=== PATIENT | female | born 1980 | race Caucasian/White ===

== ENCOUNTER 2022-12-19 14:22 | Emergency (ER) | payer MEDICAID ==
[~2022-12-19] VITALS: Ht 162.6 cm; Wt 94.8 kg
--- OUTSIDE RECORDS SUMMARY | ~2022-12-19 | XMS | Continuity of Care Document ---
Demographics + + + | Address | [facility] | | | [place] [address] | + + + | Preferred Language | Unknown | + + + | Marital Status | Never | + + + | Jehovah'S Witness Affiliation | Unknown | + + + | Race | White | + + + | Ethnic Group | Not or | + + + Author + + + | Author | [facility] | + + + | Organization | [facility] | + + + | Address | [address] [facility] | | | [place] [address] | + + + | Phone | | + + + Care Team Providers + + + + | Care Floor Scrubber Name | Role | Phone | + + + + Unavailable | Unavailable | + + + + Unavailable | Unavailable | + + + + Unavailable | Unavailable | + + + + Unavailable | Unavailable | + + + + Unavailable | Unavailable | + + + + Unavailable | Unavailable | + + + + Unavailable | Unavailable | + + + + Unavailable | Unavailable | + + + + Unavailable | Unavailable | + + + + Unavailable | Unavailable | + + + + Unavailable | Unavailable | + + + + Unavailable | Unavailable | + + + + Unavailable | Unavailable | + + + + Unavailable | Unavailable | + + + + Unavailable | Unavailable | + + + + Unavailable | Unavailable | + + + + Unavailable | Unavailable | + + + + Unavailable | Unavailable | + + + + Unavailable | Unavailable | + + + + Unavailable | Unavailable | + + + + Unavailable | Unavailable | + + + + Unavailable | Unavailable | + + + + Unavailable | Unavailable | + + + + Unavailable | Unavailable | + + + + Unavailable | Unavailable | + + + + Unavailable | Unavailable | + + + + Unavailable | Unavailable | + + + + Unavailable | Unavailable | + + + + Unavailable | Unavailable | + + + + Unavailable | Unavailable | + + + + Unavailable | Unavailable | + + + + Unavailable | Unavailable | + + + + Unavailable | Unavailable | + + + + Unavailable | Unavailable | + + + + Unavailable | Unavailable | + + + + Unavailable | Unavailable | + + + + Unavailable | Unavailable | + + + + Unavailable | Unavailable | + + + + Unavailable | Unavailable | + + + + Unavailable | Unavailable | + + + + Unavailable | Unavailable | + + + + Unavailable | Unavailable | + + + + Unavailable | Unavailable | + + + + Unavailable | Unavailable | + + + + Unavailable | Unavailable | + + + + Unavailable | Unavailable | + + + + Allergies and Intolerances + + + + + + | date | description | facility | reaction | severity | + + + + + + | (no date) | NO KNOWN [facility] | (no reaction) | (no severity) | | | ALLERGIES | [facility] | | | | | [place] | | | + + + + + + | (no date) | NO KNOWN | [facility] | (no reaction) | (no severity) | | | ALLERGIES | [facility] - | | | | | | [place] | | | + + + + + + | (no date) | NO KNOWN | [facility] | (no reaction) | (no severity) | | | ALLERGIES | [facility] - | | | | | | [place] | | | + + + + + + | (no date) | NO KNOWN | [facility] | (no reaction) | (no severity) | | | ALLERGIES | [facility] - | | | | | | [place] | | | + + + + + + Encounters No information. Functional Status No information. Immunizations No information. Medications + + + + | date | description | facility | + + + + | 2022-06-19 00:00 | ondansetron 4 mg oral | [facility] | | | tablet [zofran] | [facility] | | | | Clinic | + + + + | 2022-05-30 00:00 | atropine sulfate 1 % | [facility] | | | ophthalmic solution | [facility] | | | | Clinic | + + + + | 2022-05-30 00:00 | atropine sulfate 1 % | [facility] | | | ophthalmic solution | [facility] | | | | Clinic | + + + + | 2022-05-30 00:00 | atropine sulfate 1 % | [facility] | | | ophthalmic solution | [facility] | + + + + | 2022-05-30 00:00 | atropine sulfate 1 % | [facility] | | | ophthalmic solution | | + + + + | 2022-05-30 00:00 | atropine sulfate 1 % | [facility] | | | ophthalmic solution | Dental | + + + + | 2022-07-26 00:00 | atropine sulfate 1 % | [facility] | | | ophthalmic solution | 1 | + + + + | 2022-07-26 00:00 | atropine sulfate 1 % | [facility] | | | ophthalmic solution | [facility] | | | | Clinic | + + + + | 2022-07-26 00:00 | atropine sulfate 1 % | [facility] | | | ophthalmic solution | [facility] | | | | Clinic | + + + + | 2022-07-26 00:00 | atropine sulfate 1 % | [facility] | | | ophthalmic solution | [facility] | + + + + | 2022-07-26 00:00 | atropine sulfate 1 % | [facility] | | | ophthalmic solution | | + + + + | 2022-07-26 00:00 | atropine sulfate 1 % | [facility] | | | ophthalmic solution | [facility] | | | | Clinic | + + + + | 2022-07-26 00:00 | atropine sulfate 1 % | [facility] | | | ophthalmic solution | [facility] | | | | County | + + + + | 2022-07-26 00:00 | atropine sulfate 1 % | [facility] | | | ophthalmic solution | [facility] [address] | | | | Clinic | + + + + | 2022-07-26 00:00 | atropine sulfate 1 % | [facility] | | | ophthalmic solution | [facility] | + + + + | 2022-07-26 00:00 | atropine sulfate 1 % | [facility] | | | ophthalmic solution | | + + + + | 2022-11-26 00:00 | abilify maintena 400 mg | [facility] | | | extended release prefilled | [facility] | | | syringe | Clinic | + + + + | 2022-11-26 00:00 | abilify maintena 400 mg | [facility] | | | extended release prefilled | [facility] | | | syringe | Clinic | + + + + | 2022-08-16 00:00 | abilifmatthew maintena 400 mg | [facility] | | | injection | 1 | + + + + | 2022-08-16 00:00 | abilify maintena 400 mg | [facility] | | | injection | [facility] | | | | Clinic | + + + + | 2022-08-16 00:00 | abilify maintena 400 mg | [facility] | | | injection | [facility] | | | | Clinic | + + + + | 2022-08-16 00:00 | abilify maintena 400 mg | [facility] | | | injection | [facility] | + + + + | 2022-08-16 00:00 | abilifmatthew maintena 400 mg | [facility] | | | injection | | + + + + | 2022-08-16 00:00 | abizackfmatthew maintena 400 mg | [facility] | | | injection | [facility] | | | | Clinic | + + + + | 2022-08-16 00:00 | abilifmatthew maintena 400 mg | [facility] | | | injection | [facility] | | | | Clinic | + + + + | 2022-06-26 00:00 | clozapine 100 mg oral | [facility] | | | tablet | [facility] | | | | Clinic | + + + + | 2022-06-26 00:00 | clozapine 100 mg oral | [facility] | | | tablet | [facility] | | | | Clinic | + + + + | 2022-06-26 00:00 | clozapine 100 mg oral | [facility] | | | tablet | [facility] | + + + + | 2022-06-26 00:00 | clozapine 100 mg oral | [facility] | | | tablet | | + + + + | 2022-07-26 00:00 | clozapine 100 mg oral | [facility] | | | tablet | [facility] | | | | Clinic | + + + + | 2022-07-26 00:00 | clozapine 100 mg oral | [facility] | | | tablet | [facility] | + + + + | 2022-07-26 00:00 | clozapine 100 mg oral | [facility] | | | tablet | | + + + + | 2022-07-26 00:00 | clozapine 100 mg oral | [facility] | | | tablet | [facility] | | | | Clinic | + + + + | 2022-07-26 00:00 | clozapine 100 mg oral | [facility] | | | tablet | [facility] | | | | [facility] | + + + + | 2022-07-26 00:00 | [facility]apine 100 mg oral | [facility] | | | tablet | [facility] | + + + + | 2022-06-12 00:00 | clozapine 25 mg oral | [facility] | | | tablet | [facility] | | | | Clinic | + + + + | 2022-06-12 00:00 | clozapine 25 mg oral | [facility] | | | tablet | [facility] | + + + + | 2022-06-12 00:00 | clozapine 25 mg oral | [facility] | | | tablet | Dental | + + + + | 2022-06-19 00:00 | clozapine 25 mg oral | [facility] | | | tablet | [facility] | | | | Clinic | + + + + | 2022-06-19 00:00 | clozapine 25 mg oral | [facility] | | | tablet | [facility] | | | | Clinic | + + + + | 2022-11-25 00:00 | clozapine 25 mg oral | [facility] | | | tablet | [facility] | | | | Clinic | + + + + | 2022-11-25 00:00 | clozapine 25 mg oral | [facility] | | | tablet | [facility] | | | | Clinic | + + + + | 2022-11-25 00:00 | clozapine 25 mg oral | [facility] | | | tablet | [facility] | | | | Clinic | + + + + | 2022-10-10 00:00 | nicotine 7 mg per 24hr 1 | [facility] | | | day transdermal patch | [facility] | | | | Clinic | + + + + | 2022-10-10 00:00 | nicotine 7 mg per 24hr 1 | [facility] | | | day transdermal patch | [facility] [address] | | | | Clinic | + + + + | 2022-10-10 00:00 | nicotine 7 mg per 24hr 1 | [facility] | | | day transdermal patch | [facility] | + + + + | 2022-10-10 00:00 | nicotine 7 mg per 24hr 1 | [facility] | | | day transdermal patch | | + + + + | 2022-10-10 00:00 | nicotine 7 mg per 24hr 1 | [facility] | | | day transdermal patch | [facility] | | | | Clinic | + + + + | 2022-10-10 00:00 | nicotine 7 mg per 24hr 1 | [facility] | | | day transdermal patch | [facility] | | | | Clinic | + + + + | 2022-10-10 00:00 | nicotine 7 mg per 24hr 1 | [facility] | | | day transdermal patch | | + + + + | 2022-06-19 00:00 | ondansetron 4 mg oral | [facility] | | | tablet | [facility] | | | | Clinic | + + + + | 2020-07-03 00:00 | olanzapine 2.5 mg oral | [facility] | | | tablet | [facility] | + + + + | 2022-08-08 00:00 | famotidine 40 mg oral | [facility] | | | tablet | 1 | + + + + | 2022-08-08 00:00 | famotidine 40 mg oral | [facility] | | | tablet | [facility] | | | | Clinic | + + + + | 2022-08-08 00:00 | famotidine 40 mg oral | [facility] | | | tablet | [facility] | + + + + | 2022-08-08 00:00 | famotidine 40 mg oral | [facility] | | | tablet | | + + + + | 2022-11-04 00:00 | famotidine 40 mg oral | [facility] | | | tablet | [facility] | | | | Clinic | + + + + | 2022-11-04 00:00 | famotidine 40 mg oral | [facility] | | | tablet | [facility] | | | | Clinic | + + + + | 2022-11-04 00:00 | famotidine 40 mg oral | [facility] | | | tablet | [facility] | + + + + | 2022-11-04 00:00 | famotidine 40 mg oral | [facility] | | | tablet | | + + + + | 2022-11-04 00:00 | famotidine 40 mg oral | [facility] | | | tablet | [facility] | | | | Clinic | + + + + | 2022-11-04 00:00 | famotidine 40 mg oral | [facility] | | | tablet | [facility] | | | | Clinic | + + + + | 2022-11-04 00:00 | famotidine 40 mg oral | [facility] | | | tablet | | + + + + | 2021-10-17 00:00 | quetiapine 25 mg oral | [facility] | | | tablet | [facility] | + + + + | 2022-05-30 00:00 | sennosides, group home 8.6 mg | [facility] | | | oral tablet | [facility] | | | | Clinic | + + + + | 2021-10-18 00:00 | 24 hr venlafaxine 150 mg | [facility] | | | extended release oral | [facility] | | | capsule | | + + + + | 2021-11-13 00:00 | 24 hr venlafaxine 150 mg | [facility] | | | extended release oral | [facility] | | | capsule | | + + + + | 2022-10-23 00:00 | 24 hr venlafaxine 150 mg | [facility] | | | extended release oral | [facility] | | | capsule | Clinic | + + + + | 2022-10-23 00:00 | 24 hr venlafaxine 150 mg | [facility] | | | extended release oral | [facility] | | | capsule | Clinic | + + + + | 2022-10-23 00:00 | 24 hr venlafaxine 150 mg | [facility] | | | extended release oral | [facility] | | | capsule | | + + + + | 2022-10-23 00:00 | 24 hr venlafaxine 150 mg | [facility] | | | extended release oral | | | | capsule | | + + + + | 2022-10-23 00:00 | 24 hr venlafaxine 150 mg | [facility] | | | extended release oral | [facility] | | | capsule | Clinic | + + + + | 2022-10-23 00:00 | 24 hr venlafaxine 150 mg | [facility] | | | extended release oral | [facility] | | | capsule | Clinic | + + + + | 2022-10-23 00:00 | 24 hr venlafaxine 150 mg | [facility] | | | extended release oral | | | | capsule | | + + + + | 2020-07-03 00:00 | 24 hr venlafaxine 75 mg | [facility] | | | extended release oral | [facility] | | | capsule | | + + + + | 2022-10-03 00:00 | 24 hr venlafaxine 75 mg | [facility] | | | extended release oral | [facility] | | | capsule | Clinic | + + + + | 2022-10-03 00:00 | 24 hr venlafaxine 75 mg | [facility] | | | extended release oral | [facility] | | | capsule | | + + + + | 2022-10-03 00:00 | 24 hr venlafaxine 75 mg | [facility] | | | extended release oral | | | | capsule | | + + + + | 2022-10-22 00:00 | 24 hr venlafaxine 75 mg | [facility] | | | extended release oral | [facility] | | | capsule | Clinic | + + + + | 2020-07-03 00:00 | olanzapine 10 mg oral | [facility] | | | tablet | [place] | + + + + | 2021-11-13 00:00 | aripiprazole 15 mg oral | [facility] | | | tablet | [facility] | + + + + | 2015-06-16 00:00 | Drug or medicament | [facility] | | | (substance) | [facility] | + + + + | 2022-02-06 00:00 | clozapine 50 mg oral | [facility] | | | tablet | [facility] | | | | Clinic | + + + + | 2022-02-06 00:00 | clozapine 50 mg oral | [facility] | | | tablet | Dental | + + + + | 2022-02-06 00:00 | clozapine 50 mg oral | [facility] | | | tablet | [facility] | | | | Clinic | + + + + | 2022-02-06 00:00 | cl[facility] 50 mg oral | [facility] | | | tablet | [facility] | | | | Clinic | + + + + | 2022-02-06 00:00 | clozapine 50 mg oral | [facility] | | | tablet | [facility] | + + + + | 2022-06-04 00:00 | clozapine 50 mg oral | [facility] | | | tablet | [facility] | | | | Clinic | + + + + | 2022-09-10 00:00 | clozapine 50 mg oral | [facility] | | | tablet | 1 | + + + + | 2022-09-10 00:00 | clozapine 50 mg oral | [facility] | | | tablet | [facility] | | | | Clinic | + + + + | 2022-09-10 00:00 | clozapine 50 mg oral | [facility] | | | tablet | | + + + + | 2022-10-03 00:00 | clozapine 50 mg oral | [facility] | | | tablet | [facility] | | | | Clinic | + + + + | 2022-10-03 00:00 | clozapine 50 mg oral | [facility] | | | tablet | [facility] | | | | Clinic | + + + + | 2022-10-03 00:00 | clozapine 50 mg oral | [facility] | | | tablet | [facility] | + + + + | 2022-10-03 00:00 | clozapine 50 mg oral | [facility] | | | tablet | | + + + + | 2022-10-03 00:00 | clozapine 50 mg oral | [facility] | | | tablet | [facility] | | | | Clinic | + + + + | 2022-10-03 00:00 | clozapine 50 mg oral | [facility] | | | tablet | [facility] | | | | Clinic | + + + + | 2022-10-03 00:00 | clozapine 50 mg oral | [facility] | | | tablet | | + + + + | 2022-10-03 00:00 | effexor xr 75 mg 24hr | [facility] | | | extended release oral | [facility] | | | capsule | Clinic | + + + + | 2022-10-03 00:00 | effexor xr 75 mg 24hr | [facility] | | | extended release oral | [facility] | | | capsule | | + + + + | 2022-10-03 00:00 | effexor xr 75 mg 24hr | [facility] | | | extended release oral | | | | capsule | | + + + + | 2022-10-22 00:00 | effexor xr 75 mg 24hr | [facility] | | | extended release oral | [facility] | | | capsule | Clinic | + + + + | 2021-11-13 00:00 | effexor xr 150 mg 24 hr | [facility] | | | extended release oral | [facility] | | | capsule | | + + + + | 2022-05-30 00:00 | senna-time 8.6 mg oral | [facility] | | | tablet | [facility] | | | | Clinic | + + + + | 2022-02-04 00:00 | venlafaxine hcl 150 mg | [facility] | | | 24hr extended release oral | [facility] | | | tablet | Clinic | + + + + | 2022-02-04 00:00 | venlafaxine hcl 150 mg | [facility] | | | 24hr extended release oral | [facility] | | | tablet | Clinic | + + + + | 2022-02-04 00:00 | venlafaxine hcl 150 mg | [facility] | | | 24hr extended release oral | [facility] | | | tablet | | + + + + | 2022-04-17 00:00 | venlafaxine hcl 150 mg | [facility] | | | 24hr extended release oral | [facility] | | | tablet | Clinic | + + + + | 2022-04-17 00:00 | venlafaxine hcl 150 mg | [facility] | | | 24hr extended release oral | Dental | | | tablet | | + + + + | 2022-04-17 00:00 | venlafaxine hcl 150 mg | [facility] | | | 24hr extended release oral | [facility] | | | tablet | Clinic | + + + + | 2022-04-17 00:00 | venlafaxine hcl 150 mg | [facility] | | | 24hr extended release oral | [facility] | | | tablet | Clinic | + + + + | 2022-04-17 00:00 | venlafaxine hcl 150 mg | [facility] | | | 24hr extended release oral | [facility] | | | tablet | | + + + + | 2022-06-04 00:00 | venlafaxine hcl 150 mg | [facility] | | | 24hr extended release oral | [facility] | | | tablet | Clinic | + + + + | 2022-06-04 00:00 | venlafaxine hcl 150 mg | [facility] | | | 24hr extended release oral | [facility] | | | tablet | | + + + + | 2022-06-04 00:00 | venlafaxine hcl 150 mg | [facility] | | | 24hr extended release oral | | | | tablet | | + + + + | 2022-06-04 00:00 | venlafaxine hcl 150 mg | [facility] | | | 24hr extended release oral | Dental | | | tablet | | + + + + | 2022-06-19 00:00 | venlafaxine hcl 150 mg | [facility] | | | 24hr extended release oral | [facility] | | | tablet | Clinic | + + + + | 2022-06-19 00:00 | venlafaxine hcl 150 mg | [facility] | | | 24hr extended release oral | [facility] | | | tablet | Clinic | + + + + | 2022-06-19 00:00 | venlafaxine hcl 150 mg | [facility] | | | 24hr extended release oral | [facility] | | | tablet | | + + + + | 2022-06-19 00:00 | venlafaxine hcl 150 mg | [facility] | | | 24hr extended release oral | | | | tablet | | + + + + | 2022-07-26 00:00 | venlafaxine hcl 150 mg | [facility] | | | 24hr extended release oral | [facility] | | | tablet | Clinic | + + + + | 2022-07-26 00:00 | venlafaxine hcl 150 mg | [facility] | | | 24hr extended release oral | [facility] | | | tablet | | + + + + | 2022-07-26 00:00 | venlafaxine hcl 150 mg | [facility] | | | 24hr extended release oral | | | | tablet | | + + + + | 2022-07-26 00:00 | venlafaxine hcl 150 mg | [facility] | | | 24hr extended release oral | [facility] | | | tablet | Clinic | + + + + | 2022-07-26 00:00 | venlafaxine hcl 150 mg | [facility] | | | 24hr extended release oral | [facility] | | | tablet | [facility] | + + + + | 2022-07-26 00:00 | venlafaxine hcl 150 mg | [facility] | | | 24hr extended release oral | [facility] | | | tablet | | + + + + | 2020-03-31 00:00 | trazodone hydrochloride 50 | [facility] | | | mg oral tablet | [facility] | + + + + | 2022-10-10 00:00 | trazodone hydrochloride 50 | [facility] | | | mg oral tablet | [facility] | | | | Clinic | + + + + | 2022-10-10 00:00 | trazodone hydrochloride 50 | [facility] | | | mg oral tablet | [facility] | + + + + | 2022-10-10 00:00 | trazodone hydrochloride 50 | [facility] | | | mg oral tablet | | + + + + | 2022-11-19 00:00 | trazodone hydrochloride 50 | [facility] | | | mg oral tablet | [facility] | | | | Clinic | + + + + | 2022-11-19 00:00 | [facility]one hydrochloride 50 | [facility] | | | mg oral tablet | [facility] [address] | | | | Clinic | + + + + | 2022-11-19 00:00 | trazodone hydrochloride 50 | [facility] [facility] | | mg oral tablet | [facility] | | | | Clinic | + + + + | 2022-11-19 00:00 | trazodone hydrochloride 50 | [facility] | | | mg oral tablet | [facility] | | | | Clinic | + + + + | 2022-08-16 00:00 | propranolol hcl 10 mg oral | [facility] | | | tablet | [facility] | | | | Clinic | + + + + | 2022-08-16 00:00 | propranolol hcl 10 mg oral | [facility] | | | tablet | [facility] | + + + + | 2022-08-16 00:00 | propranolol hcl 10 mg oral | [facility] | | | tablet | | + + + + | 2022-05-30 00:00 | polyethylene glycol 3350 | [facility] | | | 17 gm powder for oral | 1 | | | solution | | + + + + | 2022-05-30 00:00 | polyethylene glycol 3350 | [facility] | | | 17 gm powder for oral | [facility] | | | solution | Clinic | + + + + | 2022-05-30 00:00 | polyethylene glycol 3350 | [facility] | | | 17 gm powder for oral | [facility] [address] | | | solution | Clinic | + + + + | 2022-05-30 00:00 | polyethylene glycol 3350 | [facility] | | | 17 gm powder for oral | [facility] | | | solution | | + + + + | 2022-05-30 00:00 | polyethylene glycol 3350 | [facility] | | | 17 gm powder for oral | | | | solution | | + + + + | 2022-05-30 00:00 | polyethylene glycol 3350 | [facility] | | | 17 gm powder for oral | Dental | | | solution | | + + + + | 2022-05-30 00:00 | polyethylene glycol 3350 | [facility] | | | 17 gm powder for oral | [facility] | | | solution | Clinic | + + + + | 2022-05-30 00:00 | polyethylene glycol 3350 | [facility] | | | 17 gm powder for oral | [facility] [place] | | | solution | [facility] | + + + + | 2022-05-30 00:00 | polyethylene glycol 3350 | [facility] | | | 17 gm powder for oral | [facility] | | | solution | Clinic | + + + + | 2022-05-30 00:00 | polyethylene glycol 3350 | [facility] | | | 17 gm powder for oral | [facility] | | | solution | | + + + + | 2022-05-30 00:00 | polyethylene glycol 3350 | [facility] | | | 17 gm powder for oral | | | | solution | | + + + + | 2021-11-13 00:00 | benztropine mesylate 0.5 | [facility] | | | mg oral tablet | [facility] | + + + + | 2022-10-03 00:00 | fluvoxamine maleate 25 mg | [facility] | | | oral tablet | [facility] | | | | Clinic | + + + + | 2022-10-03 00:00 | fluvoxamine maleate 25 mg | [facility] | | | oral tablet | [facility] | + + + + | 2022-10-03 00:00 | fluvoxamine maleate 25 mg | [facility] | | | oral tablet | [facility] | + + + + | 2022-10-03 00:00 | fluvoxamine maleate 25 mg | [facility] | | | oral tablet | | + + + + | 2022-10-03 00:00 | fluvoxamine maleate 25 mg | [facility] | | | oral tablet | [facility] | | | | Clinic | + + + + | 2022-10-03 00:00 | fluvoxamine maleate 25 mg | [facility] | | | oral tablet | [facility] | | | | Clinic | + + + + | 2022-10-03 00:00 | fluvoxamine maleate 25 mg | [facility] | | | oral tablet | | + + + + | 2022-09-10 00:00 | fluvoxamine maleate 50 mg | [facility] | | | oral tablet | 1 | + + + + | 2022-09-10 00:00 | fluvoxamine maleate 50 mg | [facility] | | | oral tablet | [facility] | | | | Clinic | + + + + | 2022-09-10 00:00 | fluvoxamine maleate 50 mg | [facility] | | | oral tablet | | + + + + | 2022-10-08 00:00 | levothyroxine sodium 0.025 | [facility] | | | mg oral tablet | [facility] | | | | Clinic | + + + + | 2022-10-08 00:00 | levothyroxine sodium 0.025 | [facility] | | | mg oral tablet | [facility] | | | | Clinic | + + + + | 2022-10-08 00:00 | levothyroxine sodium 0.025 | [facility] | | | mg oral tablet | [facility] | + + + + | 2022-10-08 00:00 | levothyroxine sodium 0.025 | [facility] | | | mg oral tablet | | + + + + | 2022-10-08 00:00 | levothyroxine sodium 0.025 | [facility] | | | mg oral tablet | [facility] | | | | Clinic | + + + + | 2022-10-08 00:00 | levothyroxine sodium 0.025 | [facility] | | | mg oral tablet | [facility] | | | | Clinic | + + + + | 2022-10-08 00:00 | levothyroxine sodium 0.025 | [facility] | | | mg oral tablet | | + + + + | 2019-11-29 00:00 | bupropion hcl 100 mg 12 hr | [facility] | | | extended release oral | [facility] | | | tablet | | + + + + | 2022-06-04 00:00 | 24 hr bupropion | [facility] | | | hydrochloride 150 mg | [facility] | | | extended release oral | Clinic | | | tablet | | + + + + | 2022-06-04 00:00 | 24 hr bupropion | [facility] | | | hydrochloride 150 mg | [facility] | | | extended release oral | | | | tablet | | + + + + | 2022-06-04 00:00 | 24 hr bupropion | [facility] | | | hydrochloride 150 mg | | | | extended release oral | | | | tablet | | + + + + | 2022-06-04 00:00 | 24 hr bupropion | [facility] | | | hydrochloride 150 mg | Dental | | | extended release oral | | | | tablet | | + + + + | 2022-06-19 00:00 | 24 hr bupropion | [facility] | | | hydrochloride 150 mg | [facility] | | | extended release oral | Clinic | | | tablet | | + + + + | 2022-06-19 00:00 | 24 hr bupropion | [facility] | | | hydrochloride 150 mg | [facility] | | | extended release oral | Clinic | | | tablet | | + + + + | 2022-09-10 00:00 | 24 hr bupropion | [facility] | | | hydrochloride 150 mg | 1 | | | extended release oral | | | | tablet | | + + + + | 2022-09-10 00:00 | 24 hr bupropion | [facility] | | | hydrochloride 150 mg | [facility] | | | extended release oral | Clinic | | | tablet | | + + + + | 2022-09-10 00:00 | 24 hr bupropion | [facility] | | | hydrochloride 150 mg | | | | extended release oral | | | | tablet | | + + + + | 2022-07-02 00:00 | 24 hr bupropion | [facility] | | | hydrochloride 300 mg | [facility] | | | extended release oral | Clinic | | | tablet | | + + + + | 2022-07-02 00:00 | 24 hr bupropion | [facility] | | | hydrochloride 300 mg | [facility] | | | extended release oral | | | | tablet | | + + + + | 2022-07-02 00:00 | 24 hr bupropion | [facility] | | | hydrochloride 300 mg | | | | extended release oral | | | | tablet | | + + + + | 2022-07-26 00:00 | 24 hr bupropion | [facility] | | | hydrochloride 300 mg | [facility] | | | extended release oral | Clinic | | | tablet | | + + + + | 2022-07-26 00:00 | 24 hr bupropion | [facility] | | | hydrochloride 300 mg | [facility] | | | extended release oral | | | | tablet | | + + + + | 2022-07-26 00:00 | 24 hr bupropion | [facility] | | | hydrochloride 300 mg | | | | extended release oral | | | | tablet | | + + + + | 2022-07-26 00:00 | 24 hr bupropion | [facility] | | | hydrochloride 300 mg | [facility] | | | extended release oral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 + + + | 2022-03-25 08:31:45 | Other specified depressive | [facility] | | | episodes | | + + + + | 2022-03-25 08:31:45 | Tobacco use | [facility] | + + + + | 2022-03-26 15:00:57 | 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, uncomplicated | | + + + + | 2022-03-26 15:00:57 | Other psychotic disorder | [facility] | | | not due to a substance or | | | | known physiological | | | | condition | | + + + + | 2022-03-26 15:00:57 | Other specified depressive | [facility] | | | episodes | | + + + + | 2022-03-26 15:00:57 | Tobacco use | [facility] | + + + + | 2022-03-28 16:16:52 | 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, uncomplicated | | + + + + | 2022-03-28 16:16:52 | Other psychotic disorder | [facility] | | | not due to a substance or | | | | known physiological | | | | condition | | + + + + | 2022-03-28 16:16:52 | Other specified depressive | [facility] | | | episodes | | + + + + | 2022-03-28 16:16:52 | Tobacco use | [facility] | + + + + | 2022-04-03 14:01:55 | 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, uncomplicated | | + + + + | 2022-04-03 14:01:55 | Other psychotic disorder | [facility] | | | not due to a substance or | | | | known physiological | | | | condition | | + + + + | 2022-04-03 14:01:55 | Other specified depressive | [facility] | | | episodes | | + + + + | 2022-04-03 14:01:55 | Tobacco use | [facility] | + + + + | 2022-04-04 13:19:15 | 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, uncomplicated | | + + + + | 2022-04-04 13:19:15 | Other psychotic disorder | [facility] | | | not due to a substance or | | | | known physiological | | | | condition | | + + + + | 2022-04-04 13:19:15 | Other specified depressive | [facility] | | | episodes | | + + + + | 2022-04-04 13:19:15 | Tobacco use | [facility] | + + + + | 2022-04-11 08:53:33 | Care Coordination | [facility] | + + + + | 2022-04-16 11:22:28 | 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, uncomplicated | | + + + + | 2022-04-16 11:22:28 | Other psychotic disorder | [facility] | | | not due to a substance or | | | | known physiological | | | | condition | | + + + + | 2022-04-16 11:22:28 | Other specified depressive | [facility] | | | episodes | | + + + + | 2022-04-16 11:22:28 | Tobacco use | [facility] | + + + + | 2022-04-16 16:09:34 | 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, uncomplicated | | + + + + | 2022-04-16 16:09:34 | Other psychotic disorder | [facility] | | | not due to a substance or | | | | known physiological | | | | condition | | + + + + | 2022-04-16 16:09:34 | Other specified depressive | [facility] | | | episodes | | + + + + | 2022-04-16 16:09:34 | Tobacco use | [facility] | + + + + | 2022-04-25 12:18 | Delusional | [facility] - | | | | [place] | + + + + | 2022-04-25 12:38:23 | 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, uncomplicated | | + + + + | 2022-04-25 12:38:23 | Other psychotic disorder | [facility] | | | not due to a substance or | | | | known physiological | | | | condition | | + + + + | 2022-04-25 12:38:23 | Other specified depressive | [facility] | | | episodes | | + + + + | 2022-04-25 12:38:23 | Tobacco use | [facility] | + + + + | 2022-04-25 14:51 | Delusional | [facility] - | | | | [place] | + + + + | 2022-04-25 14:51 | Schizophrenia, schizotypal, | [facility]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, 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 | | | | disorders ([id number]) | | + + + + | 2022-04-25 14:51 | Nausea with vomiting, | [facility] - | | | unspecified | [place] | + + + + | 2022-04-25 14:51 | Diarrhea, unspecified | [facility] - | | | | [place] | + + + + | 2022-04-25 16:19:55 | 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, uncomplicated | | + + + + | 2022-04-25 16:19:55 | Other psychotic disorder | [facility] | | | not due to a substance or | | | | known physiological | | | | condition | | + + + + | 2022-04-25 16:19:55 | Other specified depressive | [facility] | | | episodes | | + + + + | 2022-04-25 16:19:55 | Tobacco use | [facility] | + + + + | 2022-04-26 07:58:37 | Care Coordination | [facility] | + + + + | 2022-04-30 11:25 | Abdominal Pain | [facility] - | | | | [place] | + + + + | 2022-04-30 11:25 | Hallucinations | [facility] - | | | | [place] | + + + + | 2022-04-30 12:02 | Abdominal Pain | [facility] - | | | | [place] | + + + + | 2022-04-30 12:02 | Hallucinations | [facility] - | | | | [place] | + + + + | 2022-04-30 12:02 | Hallucinations, | [facility] - | | | unspecified | [place] | + + + + | 2022-04-30 14:01:20 | 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, uncomplicated | | + + + + | 2022-04-30 14:01:20 | Other psychotic disorder | [facility] | | | not due to a substance or | | | | known physiological | | | | condition | | + + + + | 2022-04-30 14:01:20 | Other specified depressive | [facility] | | | episodes | | + + + + | 2022-04-30 14:01:20 | Tobacco use | [facility] | + + + + | 2022-05-01 10:23:24 | 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, uncomplicated | | + + + + | 2022-05-01 10:23:24 | Other psychotic disorder | [facility] | | | not due to a substance or | | | | known physiological | | | | condition | | + + + + | 2022-05-01 10:23:24 | Other specified depressive | [facility] | | | episodes | | + + + + | 2022-05-01 10:23:24 | Tobacco use | [facility] | + + + + | 2022-05-06 16:12:20 | 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, uncomplicated | | + + + + | 2022-05-06 16:12:20 | Other psychotic disorder | [facility] | | | not due to a substance or | | | | known physiological | | | | condition | | + + + + | 2022-05-06 16:12:20 | Other specified depressive | [facility] | | | episodes | | + + + + | 2022-05-06 16:12:20 | Tobacco use | [facility] | + + + + | 2022-05-10 10:21:29 | 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, uncomplicated | | + + + + | 2022-05-10 10:21:29 | Other psychotic disorder | [facility] | | | not due to a substance or | | | | known physiological | | | | condition | | + + + + | 2022-05-10 10:21:29 | Other specified depressive | [facility] | | | episodes | | + + + + | 2022-05-10 10:21:29 | Tobacco use | [facility] | + + + + | 2022-05-14 08:23 | Mental Health Problem | [facility] - | | | | [place] | + + + + | 2022-05-14 08:42 | Mental Health Problem | [facility] - | | | | [place] | + + + + | 2022-05-14 08:42 | Other psychoactive | [facility] - | | | substance use, unspecified, | [place] | | | uncomplicated | | + + + + | 2022-05-14 08:42 | Delusional disorders | [facility] - | | | | [place] | + + + + | 2022-05-17 08:57:59 | Abdominal Cramping | [facility] - | | | | [place] | + + + + | 2022-05-17 08:57:59 | Mental Health Problem | [facility] - | | | | [place] | + + + + | 2022-05-17 09:58 | Abdominal Cramping | [facility] - | | | | [place] | + + + + | 2022-05-17 09:58 | Mental Health Problem | [facility] - | | | | [place] | + + + + | 2022-05-17 09:58 | Generalized abdominal pain | [facility] - | | | | [place] | + + + + | 2022-05-24 08:36:08 | 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, uncomplicated | | + + + + | 2022-05-24 08:36:08 | Other psychotic disorder | [facility] | | | not due to a substance or | | | | known physiological | | | | condition | | + + + + | 2022-05-24 08:36:08 | Other specified depressive | [facility] | | | episodes | | + + + + | 2022-05-24 08:36:08 | Tobacco use | [facility] | + + + + | 2022-05-31 11:49:25 | 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, uncomplicated | | + + + + | 2022-05-31 11:49:25 | Other psychotic disorder | [facility] | | | not due to a substance or | | | | known physiological | | | | condition | | + + + + | 2022-05-31 11:49:25 | Other specified depressive | [facility] | | | episodes | | + + + + | 2022-05-31 11:49:25 | Tobacco use | [facility] | + + + + | 2022-05-31 13:11:35 | Care Coordination | [facility] | + + + + | 2022-05-31 15:49:53 | 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, uncomplicated | | + + + + | 2022-05-31 15:49:53 | Other psychotic disorder | [facility] | | | not due to a substance or | | | | known physiological | | | | condition | | + + + + | 2022-05-31 15:49:53 | Other specified depressive | [facility] | | | episodes | | + + + + | 2022-05-31 15:49:53 | Tobacco use | [facility] | + + + + | 2022-06-03 16:02:19 | Care Coordination | [facility] | + + + + | 2022-06-04 10:03:31 | 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, uncomplicated | | + + + + | 2022-06-04 10:03:31 | Schizophrenia, unspecified | [facility] | | | | | + + + + | 2022-06-04 10:03:31 | Other psychotic disorder | [facility] | | | not due to a substance or | | | | known physiological | | | | condition | | + + + + | 2022-06-04 10:03:31 | Other specified depressive | [facility] | | | episodes | | + + + + | 2022-06-04 10:03:31 | Tobacco use | [facility] | + + + + | 2022-06-04 12:25:05 | 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, uncomplicated | | + + + + | 2022-06-04 12:25:05 | Other psychotic disorder | [facility] | | | not due to a substance or | | | | known physiological | | | | condition | | + + + + | 2022-06-04 12:25:05 | Other specified depressive | [facility] | | | episodes | | + + + + | 2022-06-04 12:25:05 | Tobacco use | [facility] | + + + + | 2022-06-04 16:51:31 | 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, uncomplicated | | + + + + | 2022-06-04 16:51:31 | Other psychotic disorder | [facility] | | | not due to a substance or | | | | known physiological | | | | condition | | + + + + | 2022-06-04 16:51:31 | Other specified depressive | [facility] | | | episodes | | + + + + | 2022-06-04 16:51:31 | Tobacco use | [facility] | + + + + | 2022-06-10 16:36:57 | 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, uncomplicated | | + + + + | 2022-06-10 16:36:57 | Other psychotic disorder | [facility] | | | not due to a substance or | | | | known physiological | | | | condition | | + + + + | 2022-06-10 16:36:57 | Other specified depressive | [facility] | | | episodes | | + + + + | 2022-06-10 16:36:57 | Tobacco use | [facility] | + + + + | 2022-06-11 09:08:06 | Care Coordination | [facility] | + + + + | 2022-06-11 11:44:04 | Care Coordination | [facility] | + + + + | 2022-06-12 09:11:57 | 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, uncomplicated | | + + + + | 2022-06-12 09:11:57 | Other psychotic disorder | [facility] | | | not due to a substance or | | | | known physiological | | | | condition | | + + + + | 2022-06-12 09:11:57 | Other specified depressive | [facility] | | | episodes | | + + + + | 2022-06-12 09:11:57 | Tobacco use | [facility] | + + + + | 2022-06-12 09:42:37 | Schizophrenia, unspecified | [facility] | | | | | + + + + | 2022-06-13 09:56:12 | 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, uncomplicated | | + + + + | 2022-06-13 09:56:12 | Other psychotic disorder | [facility] | | | not due to a substance or | | | | known physiological | | | | condition | | + + + + | 2022-06-13 09:56:12 | Other specified depressive | [facility] | | | episodes | | + + + + | 2022-06-13 09:56:12 | Tobacco use | [facility] | + + + + | 2022-06-13 13:27:48 | Cancel/Reschedule | [facility] | | | Appointment | | + + + + | 2022-06-14 14:29:09 | 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, uncomplicated | | + + + + | 2022-06-14 14:29:09 | Other psychotic disorder | [facility] | | | not due to a substance or | | | | known physiological | | | | condition | | + + + + | 2022-06-14 14:29:09 | Other specified depressive | [facility] | | | episodes | | + + + + | 2022-06-14 14:29:09 | Tobacco use | [facility] | + + + + | 2022-06-17 08:29:29 | 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, uncomplicated | | + + + + | 2022-06-17 08:29:29 | Other psychotic disorder | [facility] | | | not due to a substance or | | | | known physiological | | | | condition | | + + + + | 2022-06-17 08:29:29 | Other specified depressive | [facility] | | | episodes | | + + + + | 2022-06-17 08:29:29 | Tobacco use | [facility] | + + + + | 2022-06-18 09:47:22 | 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, uncomplicated | | + + + + | 2022-06-18 09:47:22 | Other psychotic disorder | [facility] | | | not due to a substance or | | | | known physiological | | | | condition | | + + + + | 2022-06-18 09:47:22 | Other specified depressive | [facility] | | | episodes | | + + + + | 2022-06-18 09:47:22 | Tobacco use | [facility] | + + + + | 2022-06-18 15:12:22 | Care Coordination | [facility] | + + + + | 2022-06-19 15:02:58 | 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, uncomplicated | | + + + + | 2022-06-19 15:02:58 | Other psychotic disorder | [facility] | | | not due to a substance or | | | | known physiological | | | | condition | | + + + + | 2022-06-19 15:02:58 | Other specified depressive | [facility] | | | episodes | | + + + + | 2022-06-19 15:02:58 | Tobacco use | [facility] | + + + + | 2022-06-20 10:22:39 | 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, uncomplicated | | + + + + | 2022-06-20 10:22:39 | Other psychotic disorder | [facility] | | | not due to a substance or | | | | known physiological | | | | condition | | + + + + | 2022-06-20 10:22:39 | Other specified depressive | [facility] | | | episodes | | + + + + | 2022-06-20 10:22:39 | Tobacco use | [facility] | + + + + | 2022-06-20 10:27:21 | Care Coordination | [facility] | + + + + | 2022-06-21 08:35:18 | 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, uncomplicated | | + + + + | 2022-06-21 08:35:18 | Other psychotic disorder | [facility] | | | not due to a substance or | | | | known physiological | | | | condition | | + + + + | 2022-06-21 08:35:18 | Other specified depressive | [facility] | | | episodes | | + + + + | 2022-06-21 08:35:18 | Tobacco use | [facility] | + + + + | 2022-06-21 18:22:48 | 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, uncomplicated | | + + + + | 2022-06-21 18:22:48 | Other psychotic disorder | [facility] | | | not due to a substance or | | | | known physiological | | | | condition | | + + + + | 2022-06-21 18:22:48 | Other specified depressive | [facility] | | | episodes | | + + + + | 2022-06-21 18:22:48 | Tobacco use | [facility] | + + + + | 2022-06-24 17:12:17 | 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, uncomplicated | | + + + + | 2022-06-24 17:12:17 | Other psychotic disorder | [facility] | | | not due to a substance or | | | | known physiological | | | | condition | | + + + + | 2022-06-24 17:12:17 | Other specified depressive | [facility] | | | episodes | | + + + + | 2022-06-24 17:12:17 | Tobacco use | [facility] | + + + + | 2022-06-25 14:00:11 | 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, uncomplicated | | + + + + | 2022-06-25 14:00:11 | Other psychotic disorder | [facility] | | | not due to a substance or | | | | known physiological | | | | condition | | + + + + | 2022-06-25 14:00:11 | Other specified depressive | [facility] | | | episodes | | + + + + | 2022-06-25 14:00:11 | Tobacco use | [facility] | + + + + | 2022-06-27 16:56:12 | 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, uncomplicated | | + + + + | 2022-06-27 16:56:12 | Other psychotic disorder | [facility] | | | not due to a substance or | | | | known physiological | | | | condition | | + + + + | 2022-06-27 16:56:12 | Other specified depressive | [facility] | | | episodes | | + + + + | 2022-06-27 16:56:12 | Tobacco use | [facility] | + + + + | 2022-06-27 17:13:31 | 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, uncomplicated | | + + + + | 2022-06-27 17:13:31 | Other psychotic disorder | [facility] | | | not due to a substance or | | | | known physiological | | | | condition | | + + + + | 2022-06-27 17:13:31 | Other specified depressive | [facility] | | | episodes | | + + + + | 2022-06-27 17:13:31 | Tobacco use | [facility] | + + + + | 2022-06-27 17:14:24 | 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, uncomplicated | | + + + + | 2022-06-27 17:14:24 | Other psychotic disorder | [facility] | | | not due to a substance or | | | | known physiological | | | | condition | | + + + + | 2022-06-27 17:14:24 | Other specified depressive | [facility] | | | episodes | | + + + + | 2022-06-27 17:14:24 | Tobacco use | [facility] | + + + + | 2022-06-28 17:44:33 | 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, uncomplicated | | + + + + | 2022-06-28 17:44:33 | Other psychotic disorder | [facility] | | | not due to a substance or | | | | known physiological | | | | condition | | + + + + | 2022-06-28 17:44:33 | Other specified depressive | [facility] | | | episodes | | + + + + | 2022-06-28 17:44:33 | Tobacco use | [facility] | + + + + | 2022-06-28 17:45:14 | 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, uncomplicated | | + + + + | 2022-06-28 17:45:14 | Other psychotic disorder | [facility] | | | not due to a substance or | | | | known physiological | | | | condition | | + + + + | 2022-06-28 17:45:14 | Other specified depressive | [facility] | | | episodes | | + + + + | 2022-06-28 17:45:14 | Tobacco use | [facility] | + + + + | 2022-07-01 16:21:27 | 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, uncomplicated | | + + + + | 2022-07-01 16:21:27 | Other psychotic disorder | [facility] | | | not due to a substance or | | | | known physiological | | | | condition | | + + + + | 2022-07-01 16:21:27 | Other specified depressive | [facility] | | | episodes | | + + + + | 2022-07-01 16:21:27 | Tobacco use | [facility] | + + + + | 2022-07-01 16:21:33 | 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, uncomplicated | | + + + + | 2022-07-01 16:21:33 | Other psychotic disorder | [facility] | | | not due to a substance or | | | | known physiological | | | | condition | | + + + + | 2022-07-01 16:21:33 | Other specified depressive | [facility] | | | episodes | | + + + + | 2022-07-01 16:21:33 | Tobacco use | [facility] | + + + + | 2022-07-02 15:56:03 | Care Coordination | [facility] | + + + + | 2022-07-03 20:49:15 | 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, in remission | | + + + + | 2022-07-03 20:49:15 | Other psychotic disorder | [facility] | | | not due to a substance or | | | | known physiological | | | | condition | | + + + + | 2022-07-03 20:49:15 | Other specified depressive | [facility] | | | episodes | | + + + + | 2022-07-03 20:49:15 | Tobacco use | [facility] | + + + + | 2022-07-03 20:53:41 | 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, in remission | | + + + + | 2022-07-03 20:53:41 | Other psychotic disorder | [facility] | | | not due to a substance or | | | | known physiological | | | | condition | | + + + + | 2022-07-03 20:53:41 | Other specified depressive | [facility] | | | episodes | | + + + + | 2022-07-03 20:53:41 | Tobacco use | [facility] | + + + + | 2022-07-04 17:08:47 | 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, uncomplicated | | + + + + | 2022-07-04 17:08:47 | Other psychotic disorder | [facility] | | | not due to a substance or | | | | known physiological | | | | condition | | + + + + | 2022-07-04 17:08:47 | Other specified depressive | [facility] | | | episodes | | + + + + | 2022-07-04 17:08:47 | Tobacco use | [facility] | + + + + | 2022-07-05 16:38:10 | 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, uncomplicated | | + + + + | 2022-07-05 16:38:10 | Other psychotic disorder | [facility] | | | not due to a substance or | | | | known physiological | | | | condition | | + + + + | 2022-07-05 16:38:10 | Other specified depressive | [facility] | | | episodes | | + + + + | 2022-07-05 16:38:10 | Tobacco use | [facility] | + + + + | 2022-07-08 15:54:41 | 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, uncomplicated | | + + + + | 2022-07-08 15:54:41 | Other psychotic disorder | [facility] | | | not due to a substance or | | | | known physiological | | | | condition | | + + + + | 2022-07-08 15:54:41 | Other specified depressive | [facility] | | | episodes | | + + + + | 2022-07-08 15:54:41 | Tobacco use | [facility] | + + + + | 2022-07-08 15:57:12 | 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, uncomplicated | | + + + + | 2022-07-08 15:57:12 | Other psychotic disorder | [facility] | | | not due to a substance or | | | | known physiological | | | | condition | | + + + + | 2022-07-08 15:57:12 | Other specified depressive | [facility] | | | episodes | | + + + + | 2022-07-08 15:57:12 | Tobacco use | [facility] | + + + + | 2022-07-08 16:08:58 | 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, uncomplicated | | + + + + | 2022-07-08 16:08:58 | Other psychotic disorder | [facility] | | | not due to a substance or | | | | known physiological | | | | condition | | + + + + | 2022-07-08 16:08:58 | Other specified depressive | [facility] | | | episodes | | + + + + | 2022-07-08 16:08:58 | Tobacco use | [facility] | + + + + | 2022-07-10 16:45:21 | 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, uncomplicated | | + + + + | 2022-07-10 16:45:21 | Other psychotic disorder | [facility] | | | not due to a substance or | | | | known physiological | | | | condition | | + + + + | 2022-07-10 16:45:21 | Other specified depressive | [facility] | | | episodes | | + + + + | 2022-07-10 16:45:21 | Tobacco use | [facility] | + + + + | 2022-07-10 17:00:02 | 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, uncomplicated | | + + + + | 2022-07-10 17:00:02 | Other psychotic disorder | [facility] | | | not due to a substance or | | | | known physiological | | | | condition | | + + + + | 2022-07-10 17:00:02 | Other specified depressive | [facility] | | | episodes | | + + + + | 2022-07-10 17:00:02 | Tobacco use | [facility] | + + + + | 2022-07-16 18:25:18 | Vomiting | [facility] - | | | | [place] | + + + + | 2022-07-16 18:25:18 | Mental Health Problem | [facility] - | | | | [place] | + + + + | 2022-07-16 18:57 | Vomiting | [facility] - | | | | [place] | + + + + | 2022-07-16 18:57 | Mental Health Problem | [facility] - | | | | [place] | + + + + | 2022-07-16 18:57 | Imaging @ [place] @ | [facility] - | | | Ultrasonography @ | [place] | | | [place], Left | | + + + + | 2022-07-16 18:57 | Suicidal ideations | [facility] - | | | | [place] | + + + + | 2022-07-19 15:34:10 | Cancel/Reschedule | [facility] | | | Appointment | | + + + + | 2022-07-22 11:25:37 | 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, uncomplicated | | + + + + | 2022-07-22 11:25:37 | Other psychotic disorder | [facility] | | | not due to a substance or | | | | known physiological | | | | condition | | + + + + | 2022-07-22 11:25:37 | Other specified depressive | [facility] | | | episodes | | + + + + | 2022-07-22 11:25:37 | Tobacco use | [facility] | + + + + | 2022-07-22 17:46:51 | 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, uncomplicated | | + + + + | 2022-07-22 17:46:51 | Other psychotic disorder | [facility] | | | not due to a substance or | | | | known physiological | | | | condition | | + + + + | 2022-07-22 17:46:51 | Other specified depressive | [facility] | | | episodes | | + + + + | 2022-07-22 17:46:51 | Tobacco use | [facility] | + + + + | 2022-07-23 15:32:23 | 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, uncomplicated | | + + + + | 2022-07-23 15:32:23 | Other psychotic disorder | [facility] | | | not due to a substance or | | | | known physiological | | | | condition | | + + + + | 2022-07-23 15:32:23 | Other specified depressive | [facility] | | | episodes | | + + + + | 2022-07-23 15:32:23 | Tobacco use | [facility] | + + + + | 2022-07-24 09:36:11 | 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, uncomplicated | | + + + + | 2022-07-24 09:36:11 | Other psychotic disorder | [facility] | | | not due to a substance or | | | | known physiological | | | | condition | | + + + + | 2022-07-24 09:36:11 | Other specified depressive | [facility] | | | episodes | | + + + + | 2022-07-24 09:36:11 | Tobacco use | [facility] | + + + + | 2022-07-25 10:12:12 | Behavioral Health Staffing | [facility] | | | Note | | + + + + | 2022-07-26 09:43:59 | 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, uncomplicated | | + + + + | 2022-07-26 09:43:59 | Other psychotic disorder | [facility] | | | not due to a substance or | | | | known physiological | | | | condition | | + + + + | 2022-07-26 09:43:59 | Other specified depressive | [facility] | | | episodes | | + + + + | 2022-07-26 09:43:59 | Tobacco use | [facility] | + + + + | 2022-07-26 11:44:58 | Transition Of Care | [facility] | + + + + | 2022-07-26 12:14:50 | 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, uncomplicated | | + + + + | 2022-07-26 12:14:50 | Other psychotic disorder | [facility] | | | not due to a substance or | | | | known physiological | | | | condition | | + + + + | 2022-07-26 12:14:50 | Other specified depressive | [facility] | | | episodes | | + + + + | 2022-07-26 12:14:50 | Tobacco use | [facility] | + + + + | 2022-07-26 13:19:17 | Care Coordination | [facility] | + + + + | 2022-07-26 14:26:10 | 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, uncomplicated | | + + + + | 2022-07-26 14:26:10 | Other psychotic disorder | [facility] | | | not due to a substance or | | | | known physiological | | | | condition | | + + + + | 2022-07-26 14:26:10 | Other specified depressive | [facility] | | | episodes | | + + + + | 2022-07-26 14:26:10 | Tobacco use | [facility] | + + + + | 2022-07-26 14:27:13 | 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, uncomplicated | | + + + + | 2022-07-26 14:27:13 | Other psychotic disorder | [facility] | | | not due to a substance or | | | | known physiological | | | | condition | | + + + + | 2022-07-26 14:27:13 | Other specified depressive | [facility] | | | episodes | | + + + + | 2022-07-26 14:27:13 | Tobacco use | [facility] | + + + + | 2022-07-26 17:05:24 | 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, uncomplicated | | + + + + | 2022-07-26 17:05:24 | Other psychotic disorder | [facility] | | | not due to a substance or | | | | known physiological | | | | condition | | + + + + | 2022-07-26 17:05:24 | Other specified depressive | [facility] | | | episodes | | + + + + | 2022-07-26 17:05:24 | Tobacco use | [facility] | + + + + | 2022-07-29 10:56:56 | 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, uncomplicated | | + + + + | 2022-07-29 10:56:56 | Other psychotic disorder | [facility] | | | not due to a substance or | | | | known physiological | | | | condition | | + + + + | 2022-07-29 10:56:56 | Other specified depressive | [facility] | | | episodes | | + + + + | 2022-07-29 10:56:56 | Tobacco use | [facility] | + + + + | 2022-07-29 11:25:09 | Other psychotic disorder | [facility] | | | not due to a substance or | | | | known physiological | | | | condition | | + + + + | 2022-07-29 14:56:15 | 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, uncomplicated | | + + + + | 2022-07-29 14:56:15 | Other psychotic disorder | [facility] | | | not due to a substance or | | | | known physiological | | | | condition | | + + + + | 2022-07-29 14:56:15 | Other specified depressive | [facility] | | | episodes | | + + + + | 2022-07-29 14:56:15 | Tobacco use | [facility] | + + + + | 2022-07-29 18:35:24 | 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, uncomplicated | | + + + + | 2022-07-29 18:35:24 | Other psychotic disorder | [facility] | | | not due to a substance or | | | | known physiological | | | | condition | | + + + + | 2022-07-29 18:35:24 | Other specified depressive | [facility] | | | episodes | | + + + + | 2022-07-29 18:35:24 | Tobacco use | [facility] | + + + + | 2022-07-30 13:05:15 | 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, uncomplicated | | + + + + | 2022-07-30 13:05:15 | Other psychotic disorder | [facility] | | | not due to a substance or | | | | known physiological | | | | condition | | + + + + | 2022-07-30 13:05:15 | Other specified depressive | [facility] | | | episodes | | + + + + | 2022-07-30 13:05:15 | Tobacco use | [facility] | + + + + | 2022-07-30 13:25:13 | Behavioral Health Staffing | [facility] | | | Note | | + + + + | 2022-07-31 15:10:01 | 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, uncomplicated | | + + + + | 2022-07-31 15:10:01 | Other psychotic disorder | [facility] | | | not due to a substance or | | | | known physiological | | | | condition | | + + + + | 2022-07-31 15:10:01 | Other specified depressive | [facility] | | | episodes | | + + + + | 2022-07-31 15:10:01 | Tobacco use | [facility] | + + + + | 2022-07-31 16:09:53 | 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, uncomplicated | | + + + + | 2022-07-31 16:09:53 | Other psychotic disorder | [facility] | | | not due to a substance or | | | | known physiological | | | | condition | | + + + + | 2022-07-31 16:09:53 | Other specified depressive | [facility] | | | episodes | | + + + + | 2022-07-31 16:09:53 | Tobacco use | [facility] | + + + + | 2022-08-01 08:42:41 | Inpatient Hospital | [facility] | | | Discharge | | + + + + | 2022-08-01 18:07:26 | 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, uncomplicated | | + + + + | 2022-08-01 18:07:26 | Other psychotic disorder | [facility] | | | not due to a substance or | | | | known physiological | | | | condition | | + + + + | 2022-08-01 18:07:26 | Other specified depressive | [facility] | | | episodes | | + + + + | 2022-08-01 18:07:26 | Tobacco use | [facility] | + + + + | 2022-08-02 12:21:08 | Behavioral Health Staffing | [facility] | | | Note | | + + + + | 2022-08-02 12:35:03 | Behavioral Health Staffing | [facility] | | | Note | | + + + + | 2022-08-02 12:37:33 | 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, uncomplicated | | + + + + | 2022-08-02 12:37:33 | Other psychotic disorder | [facility] | | | not due to a substance or | | | | known physiological | | | | condition | | + + + + | 2022-08-02 12:37:33 | Other specified depressive | [facility] | | | episodes | | + + + + | 2022-08-02 12:37:33 | Tobacco use | [facility] | + + + + | 2022-08-02 18:07:12 | 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, uncomplicated | | + + + + | 2022-08-02 18:07:12 | Other psychotic disorder | [facility] | | | not due to a substance or | | | | known physiological | | | | condition | | + + + + | 2022-08-02 18:07:12 | Other specified depressive | [facility] | | | episodes | | + + + + | 2022-08-02 18:07:12 | Tobacco use | [facility] | + + + + | 2022-08-05 15:18:46 | 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, uncomplicated | | + + + + | 2022-08-05 15:18:46 | Other psychotic disorder | [facility] | | | not due to a substance or | | | | known physiological | | | | condition | | + + + + | 2022-08-05 15:18:46 | Other specified depressive | [facility] | | | episodes | | + + + + | 2022-08-05 15:18:46 | Tobacco use | [facility] | + + + + | 2022-08-07 15:20:12 | 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, uncomplicated | | + + + + | 2022-08-07 15:20:12 | Other psychotic disorder | [facility] | | | not due to a substance or | | | | known physiological | | | | condition | | + + + + | 2022-08-07 15:20:12 | Other specified depressive | [facility] | | | episodes | | + + + + | 2022-08-07 15:20:12 | Tobacco use | [facility] | + + + + | 2022-08-07 16:01:52 | 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, uncomplicated | | + + + + | 2022-08-07 16:01:52 | Other psychotic disorder | [facility] | | | not due to a substance or | | | | known physiological | | | | condition | | + + + + | 2022-08-07 16:01:52 | Other specified depressive | [facility] | | | episodes | | + + + + | 2022-08-07 16:01:52 | Tobacco use | [facility] | + + + + | 2022-08-08 15:12:12 | 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, uncomplicated | | + + + + | 2022-08-08 15:12:12 | Other psychotic disorder | [facility] | | | not due to a substance or | | | | known physiological | | | | condition | | + + + + | 2022-08-08 15:12:12 | Other specified depressive | [facility] | | | episodes | | + + + + | 2022-08-08 15:12:12 | Tobacco use | [facility] | + + + + | 2022-08-08 15:59:42 | 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, uncomplicated | | + + + + | 2022-08-08 15:59:42 | Other psychotic disorder | [facility] | | | not due to a substance or | | | | known physiological | | | | condition | | + + + + | 2022-08-08 15:59:42 | Other specified depressive | [facility] | | | episodes | | + + + + | 2022-08-08 15:59:42 | Tobacco use | [facility] | + + + + | 2022-08-12 13:05:49 | Behavioral Health Staffing | [facility] | | | Note | | + + + + | 2022-08-13 12:21:17 | Behavioral Health Staffing | [facility] | | | Note | | + + + + | 2022-08-13 12:22:52 | Behavioral Health Staffing | [facility] | | | Note | | + + + + | 2022-08-13 12:32:49 | 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, uncomplicated | | + + + + | 2022-08-13 12:32:49 | Other psychotic disorder | [facility] | | | not due to a substance or | | | | known physiological | | | | condition | | + + + + | 2022-08-13 12:32:49 | Other specified depressive | [facility] | | | episodes | | + + + + | 2022-08-13 12:32:49 | Tobacco use | [facility] | + + + + | 2022-08-15 12:01:42 | Mental Health Problem | [facility] - | | | | [place] | + + + + | 2022-08-15 12:26 | Mental Health Problem | [facility] - | | | | [place] | + + + + | 2022-08-15 12:26 | Hypokalemia | [facility] - | | | | [place] | + + + + | 2022-08-15 12:26 | Other stimulant abuse, | [facility] - | | | uncomplicated | [place] | + + + + | 2022-08-15 12:26 | Other psychoactive | [facility] - | | | substance abuse, | [place] | | | uncomplicated | | + + + + | 2022-08-15 12:26 | Schizophrenia, schizotypal, | [facility]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, 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[place] | | | non-mood psychotic | | | | disorders (F20-F29) | | + + + + | 2022-08-15 14:09:56 | Behavioral Health Staffing | [facility] | | | Note | | + + + + | 2022-08-16 13:38:20 | 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, uncomplicated | | + + + + | 2022-08-16 13:38:20 | Other psychotic disorder | [facility] | | | not due to a substance or | | | | known physiological | | | | condition | | + + + + | 2022-08-16 13:38:20 | Other specified depressive | [facility] | | | episodes | | + + + + | 2022-08-16 13:38:20 | Tobacco use | [facility] | + + + + | 2022-08-16 14:25:37 | 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, uncomplicated | | + + + + | 2022-08-16 14:25:37 | Other psychotic disorder | [facility] | | | not due to a substance or | | | | known physiological | | | | condition | | + + + + | 2022-08-16 14:25:37 | Other specified depressive | [facility] | | | episodes | | + + + + | 2022-08-16 14:25:37 | Tobacco use | [facility] | + + + + | 2022-08-16 17:35:19 | 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, uncomplicated | | + + + + | 2022-08-16 17:35:19 | Other psychotic disorder | [facility] | | | not due to a substance or | | | | known physiological | | | | condition | | + + + + | 2022-08-16 17:35:19 | Other specified depressive | [facility] | | | episodes | | + + + + | 2022-08-16 17:35:19 | Tobacco use | [facility] | + + + + | 2022-08-20 11:50:17 | 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, uncomplicated | | + + + + | 2022-08-20 11:50:17 | Other psychotic disorder | [facility] | | | not due to a substance or | | | | known physiological | | | | condition | | + + + + | 2022-08-20 11:50:17 | Other specified depressive | [facility] | | | episodes | | + + + + | 2022-08-20 11:50:17 | Tobacco use | [facility] | + + + + | 2022-08-20 11:57:25 | 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, uncomplicated | | + + + + | 2022-08-20 11:57:25 | Other psychotic disorder | [facility] | | | not due to a substance or | | | | known physiological | | | | condition | | + + + + | 2022-08-20 11:57:25 | Other specified depressive | [facility] | | | episodes | | + + + + | 2022-08-20 11:57:25 | Tobacco use | [facility] | + + + + | 2022-08-21 14:49:33 | 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, uncomplicated | | + + + + | 2022-08-21 14:49:33 | Other psychotic disorder | [facility] | | | not due to a substance or | | | | known physiological | | | | condition | | + + + + | 2022-08-21 14:49:33 | Other specified depressive | [facility] | | | episodes | | + + + + | 2022-08-21 14:49:33 | Tobacco use | [facility] | + + + + | 2022-08-23 14:18:29 | Paranoia | [facility] - | | | | [place] | + + + + | 2022-08-23 14:18:29 | Psychiatric Evaluation | [facility] - | | | | [place] | + + + + | 2022-08-23 14:44:48 | 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, uncomplicated | | + + + + | 2022-08-23 14:44:48 | Other psychotic disorder | [facility] | | | not due to a substance or | | | | known physiological | | | | condition | | + + + + | 2022-08-23 14:44:48 | Other specified depressive | [facility] | | | episodes | | + + + + | 2022-08-23 14:44:48 | Tobacco use | [facility] | + + + + | 2022-08-23 17:00 | Paranoia | [facility] - | | | | [place] | + + + + | 2022-08-23 17:00 | Other stimulant abuse, | [facility] - | | | uncomplicated | [place] | + + + + | 2022-08-23 17:00 | Schizophrenia, schizotypal, | [facility]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, 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[place] | | | non-mood psychotic | | | | disorders (F20-F29) | | + + + + | 2022-08-23 17:00 | Homelessness unspecified | [facility] - | | | | [place] | + + + + | 2022-08-23 17:00 | Tobacco use | [facility] - | | | | [place] | + + + + | 2022-08-26 16:05:02 | Behavioral Health Staffing | [facility] | | | Note | | + + + + | 2022-08-26 16:42:55 | Obesity, unspecified | [facility] | + + + + | 2022-08-26 16:42:55 | Other psychotic disorder | [facility] | | | not due to a substance or | | | | known physiological | | | | condition | | + + + + | 2022-08-26 16:42:55 | Gastro-esophageal reflux | [facility] | | | disease without esophagitis | | | | | | + + + + | 2022-08-26 16:42:55 | Amenorrhea, unspecified | [facility] | + + + + | 2022-08-26 16:42:55 | Encounter for screening | [facility] | | | for other viral diseases | | + + + + | 2022-08-26 16:42:55 | Other emt intermediate (current) | [facility] | | | drug therapy | | + + + + | 2022-08-26 16:42:55 | Presence of (intrauterine) | [facility] | | | contraceptive device | | + + + + | 2022-08-30 14:59:08 | 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, uncomplicated | | + + + + | 2022-08-30 14:59:08 | Other psychotic disorder | [facility] | | | not due to a substance or | | | | known physiological | | | | condition | | + + + + | 2022-08-30 14:59:08 | Other specified depressive | [facility] | | | episodes | | + + + + | 2022-08-30 14:59:08 | Tobacco use | [facility] | + + + + | 2022-09-02 12:32:23 | Behavioral Health Problem | [facility] | + + + + | 2022-09-04 13:54:07 | Encounter Created in Error | [facility] | | | | | + + + + | 2022-09-06 16:32:55 | Care Coordination | [facility] | + + + + | 2022-09-07 20:22:41 | 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, uncomplicated | | + + + + | 2022-09-07 20:22:41 | Other psychotic disorder | [facility] | | | not due to a substance or | | | | known physiological | | | | condition | | + + + + | 2022-09-07 20:22:41 | Other specified depressive | [facility] | | | episodes | | + + + + | 2022-09-07 20:22:41 | Tobacco use | [facility] | + + + + | 2022-09-10 13:04:18 | 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, uncomplicated | | + + + + | 2022-09-10 13:04:18 | Other psychotic disorder | [facility] | | | not due to a substance or | | | | known physiological | | | | condition | | + + + + | 2022-09-10 13:04:18 | Other specified depressive | [facility] | | | episodes | | + + + + | 2022-09-10 13:04:18 | Tobacco use | [facility] | + + + + | 2022-09-10 14:34:10 | Weight Gain | [facility] | + + + + | 2022-09-10 14:34:10 | Hospital Follow Up | [facility] | + + + + | 2022-09-10 14:34:10 | Results Review | [facility] | + + + + | 2022-09-10 14:44:34 | 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, uncomplicated | | + + + + | 2022-09-10 14:44:34 | Other psychotic disorder | [facility] | | | not due to a substance or | | | | known physiological | | | | condition | | + + + + | 2022-09-10 14:44:34 | Other specified depressive | [facility] | | | episodes | | + + + + | 2022-09-10 14:44:34 | Tobacco use | [facility] | + + + + | 2022-09-10 15:41:17 | 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, uncomplicated | | + + + + | 2022-09-10 15:41:17 | Other psychotic disorder | [facility] | | | not due to a substance or | | | | known physiological | | | | condition | | + + + + | 2022-09-10 15:41:17 | Other specified depressive | [facility] | | | episodes | | + + + + | 2022-09-10 15:41:17 | Tobacco use | [facility] | + + + + | 2022-09-10 16:41:50 | 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, uncomplicated | | + + + + | 2022-09-10 16:41:50 | Other psychotic disorder | [facility] | | | not due to a substance or | | | | known physiological | | | | condition | | + + + + | 2022-09-10 16:41:50 | Other specified depressive | [facility] | | | episodes | | + + + + | 2022-09-10 16:41:50 | Tobacco use | [facility] | + + + + | 2022-09-11 14:20:39 | Behavioral Health Staffing | [facility] | | | Note | | + + + + | 2022-09-11 15:04:24 | 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, uncomplicated | | + + + + | 2022-09-11 15:04:24 | Other psychotic disorder | [facility] | | | not due to a substance or | | | | known physiological | | | | condition | | + + + + | 2022-09-11 15:04:24 | Other specified depressive | [facility] | | | episodes | | + + + + | 2022-09-11 15:04:24 | Tobacco use | [facility] | + + + + | 2022-09-12 08:43:13 | Unspecified retinal break, | [facility] | | | left eye | | + + + + | 2022-09-12 08:43:13 | Procedure and treatment not | [facility] | | | carried out due to patient | | | | leaving prior to being | | | | seen by health care | | | | provider | | + + + + | 2022-09-12 15:45:14 | Missed Appointment | [facility] | + + + + | 2022-09-15 20:53:05 | Shortness of Breath | [facility] - | | | | [place] | + + + + | 2022-09-15 21:07 | Shortness of Breath | [facility] - | | | | [place] | + + + + | 2022-09-15 21:07 | Viral infection, | [facility] - | | | unspecified | [place] | + + + + | 2022-09-15 21:07 | Dehydration | [facility] - | | | | [place] | + + + + | 2022-09-15 21:07 | Hypokalemia | [facility] - | | | | [place] | + + + + | 2022-09-15 21:07 | Delusional disorders | [facility] - | | | | [place] | + + + + | 2022-09-15 21:07 | Unspecified kidney failure | [facility] - | | | | [place] | + + + + | 2022-09-15 21:07 | Acute cough | [facility] - | | | | [place] | + + + + | 2022-09-15 21:07 | Nausea with vomiting, | [facility] - | | | unspecified | [place] | + + + + | 2022-09-16 13:48:51 | Behavioral Health Staffing | [facility] | | | Note | | + + + + | 2022-09-22 21:42:51 | Vomiting | [facility] - | | | | [place] | + + + + | 2022-09-22 21:42:51 | Mental Health Problem | [facility] - | | | | [place] | + + + + | 2022-09-22 22:19 | Vomiting | [facility] - | | | | [place] | + + + + | 2022-09-22 22:19 | Mental Health Problem | [facility] - | | | | [place] | + + + + | 2022-09-22 22:19 | Dehydration | [facility] - | | | | [place] | + + + + | 2022-09-22 22:19 | Hypokalemia | [facility] - | | | | [place] | + + + + | 2022-09-22 22:19 | Schizophrenia, unspecified | [facility] - | | | | [place] | + + + + | 2022-09-22 22:19 | Vomiting, unspecified | [facility] - | | | | [place] | + + + + | 2022-09-22 22:19 | Nausea with vomiting, | [facility] - | | | unspecified | [place] | + + + + | 2022-09-22 22:19 | Diarrhea, unspecified | [facility] - | | | | [place] | + + + + | 2022-09-27 09:19 | Care Coordination | [facility] | + + + + | 2022-09-27 23:01:05 | Inpatient Hospital | [facility] | | | Discharge | | + + + + | 2022-09-27 23:01:05 | Hospital Admission | [facility] | + + + + | 2022-10-01 11:54:55 | Hospital Follow Up | [facility] | + + + + | 2022-10-01 11:58:24 | Care Coordination | [facility] | + + + + | 2022-10-03 13:53:22 | 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, uncomplicated | | + + + + | 2022-10-03 13:53:22 | Other psychotic disorder | [facility] | | | not due to a substance or | | | | known physiological | | | | condition | | + + + + | 2022-10-03 13:53:22 | Other specified depressive | [facility] | | | episodes | | + + + + | 2022-10-03 13:53:22 | Tobacco use | [facility] | + + + + | 2022-10-03 14:47:13 | 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, uncomplicated | | + + + + | 2022-10-03 14:47:13 | Other psychotic disorder | [facility] | | | not due to a substance or | | | | known physiological | | | | condition | | + + + + | 2022-10-03 14:47:13 | Other specified depressive | [facility] | | | episodes | | + + + + | 2022-10-03 14:47:13 | Tobacco use | [facility] | + + + + | 2022-10-04 08:07:51 | Hospital Admission | [facility] | + + + + | 2022-10-04 15:20:53 | 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, uncomplicated | | + + + + | 2022-10-04 15:20:53 | Other psychotic disorder | [facility] | | | not due to a substance or | | | | known physiological | | | | condition | | + + + + | 2022-10-04 15:20:53 | Other specified depressive | [facility] | | | episodes | | + + + + | 2022-10-04 15:20:53 | Tobacco use | [facility] | + + + + | 2022-10-07 14:51:43 | 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, uncomplicated | | + + + + | 2022-10-07 14:51:43 | Other psychotic disorder | [facility] | | | not due to a substance or | | | | known physiological | | | | condition | | + + + + | 2022-10-07 14:51:43 | Other specified depressive | [facility] | | | episodes | | + + + + | 2022-10-07 14:51:43 | Tobacco use | [facility] | + + + + | 2022-10-08 11:44:56 | Hypothyroidism, | [facility] | | | unspecified | | + + + + | 2022-10-08 12:47:21 | 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, uncomplicated | | + + + + | 2022-10-08 12:47:21 | Other psychotic disorder | [facility] | | | not due to a substance or | | | | known physiological | | | | condition | | + + + + | 2022-10-08 12:47:21 | Other specified depressive | [facility] | | | episodes | | + + + + | 2022-10-08 12:47:21 | Tobacco use | [facility] | + + + + | 2022-10-08 12:48:12 | 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, uncomplicated | | + + + + | 2022-10-08 12:48:12 | Other psychotic disorder | [facility] | | | not due to a substance or | | | | known physiological | | | | condition | | + + + + | 2022-10-08 12:48:12 | Other specified depressive | [facility] | | | episodes | | + + + + | 2022-10-08 12:48:12 | Tobacco use | [facility] | + + + + | 2022-10-09 15:15:33 | 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, uncomplicated | | + + + + | 2022-10-09 15:15:33 | Other psychotic disorder | [facility] | | | not due to a substance or | | | | known physiological | | | | condition | | + + + + | 2022-10-09 15:15:33 | Other specified depressive | [facility] | | | episodes | | + + + + | 2022-10-09 15:15:33 | Tobacco use | [facility] | + + + + | 2022-10-11 09:06:24 | Behavioral Health Staffing | [facility] | | | Note | | + + + + | 2022-10-14 13:31:52 | Care Coordination | [facility] | + + + + | 2022-10-17 10:08:32 | Behavioral Health Staffing | [facility] | | | Note | | + + + + | 2022-10-17 11:29:21 | Behavioral Health Staffing | [facility] | | | Note | | + + + + | 2022-10-17 15:17:12 | Other psychotic disorder | [facility] | | | not due to a substance or | | | | known physiological | | | | condition | | + + + + | 2022-10-17 15:37:01 | Other psychotic disorder | [facility] | | | not due to a substance or | | | | known physiological | | | | condition | | + + + + | 2022-10-21 16:15:38 | Inpatient Hospital | [facility] | | | Discharge | | + + + + | 2022-10-22 15:06:12 | 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, uncomplicated | | + + + + | 2022-10-22 15:06:12 | Other psychotic disorder | [facility] | | | not due to a substance or | | | | known physiological | | | | condition | | + + + + | 2022-10-22 15:06:12 | Other specified depressive | [facility] | | | episodes | | + + + + | 2022-10-22 15:06:12 | Tobacco use | [facility] | + + + + | 2022-10-22 15:42:52 | 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, uncomplicated | | + + + + | 2022-10-22 15:42:52 | Other psychotic disorder | [facility] | | | not due to a substance or | | | | known physiological | | | | condition | | + + + + | 2022-10-22 15:42:52 | Other specified depressive | [facility] | | | episodes | | + + + + | 2022-10-22 15:42:52 | Tobacco use | [facility] | + + + + | 2022-10-23 11:30:21 | 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, uncomplicated | | + + + + | 2022-10-23 11:30:21 | Other psychotic disorder | [facility] | | | not due to a substance or | | | | known physiological | | | | condition | | + + + + | 2022-10-23 11:30:21 | Other specified depressive | [facility] | | | episodes | | + + + + | 2022-10-23 11:30:21 | Tobacco use | [facility] | + + + + | 2022-10-23 12:33:19 | Case Management | [facility] | + + + + | 2022-10-24 10:13:39 | 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, uncomplicated | | + + + + | 2022-10-24 10:13:39 | Other psychotic disorder | [facility] | | | not due to a substance or | | | | known physiological | | | | condition | | + + + + | 2022-10-24 10:13:39 | Other specified depressive | [facility] | | | episodes | | + + + + | 2022-10-24 10:13:39 | Tobacco use | [facility] | + + + + | 2022-10-24 10:54:02 | Behavioral Health Staffing | [facility] | | | Note | | + + + + | 2022-10-25 18:27:31 | 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, uncomplicated | | + + + + | 2022-10-25 18:27:31 | Other psychotic disorder | [facility] | | | not due to a substance or | | | | known physiological | | | | condition | | + + + + | 2022-10-25 18:27:31 | Other specified depressive | [facility] | | | episodes | | + + + + | 2022-10-25 18:27:31 | Tobacco use | [facility] | + + + + | 2022-11-04 08:50:58 | Gastro-esophageal reflux | [facility] | | | disease without esophagitis | | | | | | + + + + | 2022-11-04 20:00:56 | 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, uncomplicated | | + + + + | 2022-11-04 20:00:56 | Other psychotic disorder | [facility] | | | not due to a substance or | | | | known physiological | | | | condition | | + + + + | 2022-11-04 20:00:56 | Other specified depressive | [facility] | | | episodes | | + + + + | 2022-11-04 20:00:56 | Tobacco use | [facility] | + + + + | 2022-11-05 00:00 | chronic schizophrenic | [facility] | | | | [facility] | | | | Clinic | + + + + | 2022-11-05 00:00 | chronic schizophrenic | [facility] | + + + + | 2022-11-05 00:00 | Schizophrenia, chronic | [facility] | | | condition ([facility]) | [facility] | | | | Clinic | + + + + | 2022-11-05 00:00 | Schizophrenia, chronic | [facility] | | | condition ([facility]) | | + + + + | 2022-11-05 12:20:30 | 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, uncomplicated | | + + + + | 2022-11-05 12:20:30 | Other psychotic disorder | [facility] | | | not due to a substance or | | | | known physiological | | | | condition | | + + + + | 2022-11-05 12:20:30 | Other specified depressive | [facility] | | | episodes | | + + + + | 2022-11-05 12:20:30 | Tobacco use | [facility] | + + + + | 2022-11-05 12:48:06 | 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, uncomplicated | | + + + + | 2022-11-05 12:48:06 | Other psychotic disorder | [facility] | | | not due to a substance or | | | | known physiological | | | | condition | | + + + + | 2022-11-05 12:48:06 | Other specified depressive | [facility] | | | episodes | | + + + + | 2022-11-05 12:48:06 | Tobacco use | [facility] | + + + + | 2022-11-06 17:36:13 | Hypothyroidism, | [facility] | | | unspecified | | + + + + | 2022-11-06 17:36:13 | Nutritional deficiency, | [facility] | | | unspecified | | + + + + | 2022-11-06 17:36:13 | Obesity, unspecified | [facility] | + + + + | 2022-11-06 17:36:13 | Schizophrenia, unspecified | [facility] | | | | | + + + + | 2022-11-06 17:36:13 | Other emt intermediate (current) | [facility] | | | drug therapy | | + + + + | 2022-11-07 14:12:11 | 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, uncomplicated | | + + + + | 2022-11-07 14:12:11 | Schizophrenia, unspecified | [facility] | | | | | + + + + | 2022-11-07 14:12:11 | Other specified depressive | [facility] | | | episodes | | + + + + | 2022-11-07 14:12:11 | Tobacco use | [facility] | + + + + | 2022-11-08 11:26 | Anxiety | [facility] - | | | | [place] | + + + + | 2022-11-08 11:26 | Other psychoactive | [facility] - | | | substance abuse, | [place] | | | uncomplicated | | + + + + | 2022-11-08 11:26 | Delusional disorders | [facility] - | | | | [place] | + + + + | 2022-11-08 11:29:02 | 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, uncomplicated | | + + + + | 2022-11-08 11:29:02 | Schizophrenia, unspecified | [facility] | | | | | + + + + | 2022-11-08 11:29:02 | Other specified depressive | [facility] | | | episodes | | + + + + | 2022-11-08 11:29:02 | Tobacco use | [facility] | + + + + | 2022-11-11 16:26:14 | Behavioral Health Problem | [facility] | + + + + | 2022-11-12 10:32:55 | 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, uncomplicated | | + + + + | 2022-11-12 10:32:55 | Schizophrenia, unspecified | [facility] | | | | | + + + + | 2022-11-12 10:32:55 | Other specified depressive | [facility] | | | episodes | | + + + + | 2022-11-12 10:32:55 | Tobacco use | [facility] | + + + + | 2022-11-12 12:37:11 | 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, uncomplicated | | + + + + | 2022-11-12 12:37:11 | Schizoaffective disorder, | [facility] | | | depressive type | | + + + + | 2022-11-12 12:37:11 | Other psychotic disorder | [facility] | | | not due to a substance or | | | | known physiological | | | | condition | | + + + + | 2022-11-12 12:37:11 | Tobacco use | [facility] | + + + + | 2022-11-13 11:39:35 | 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, uncomplicated | | + + + + | 2022-11-13 11:39:35 | Schizophrenia, unspecified | [facility] | | | | | + + + + | 2022-11-13 11:39:35 | Other specified depressive | [facility] | | | episodes | | + + + + | 2022-11-13 11:39:35 | Tobacco use | [facility] | + + + + | 2022-11-13 13:47:16 | 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, uncomplicated | | + + + + | 2022-11-13 13:47:16 | Schizoaffective disorder, | [facility] | | | depressive type | | + + + + | 2022-11-14 16:31:57 | Behavioral Health Problem | [facility] | + + + + | 2022-11-18 16:48:16 | Hospital Admission | [facility] | + + + + | 2022-11-19 14:02:16 | 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, uncomplicated | | + + + + | 2022-11-19 14:02:16 | Schizoaffective disorder, | [facility] | | | depressive type | | + + + + | 2022-11-20 06:07:18 | 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, uncomplicated | | + + + + | 2022-11-20 06:07:18 | Schizoaffective disorder, | [facility] | | | depressive type | | + + + + | 2022-11-22 07:52:59 | Behavioral Health Staffing | [facility] | | | Note | | + + + + | 2022-11-25 17:17:40 | Behavioral Health Problem | [facility] | + + + + | 2022-11-26 09:07:17 | Prescription Refill | [facility] | | | Request | | + + + + | 2022-12-02 15:13:34 | Care Coordination | [facility] | + + + + | 2022-12-02 15:20:51 | Care Coordination | [facility] | + + + + | 2022-12-02 15:41:01 | Care Coordination | [facility] | + + + + | 2022-12-02 16:05:28 | Care Coordination | [facility] | + + + + | 2022-12-06 11:32:20 | Care Coordination | [facility] | + + + + | 2022-12-13 15:34:51 | Inpatient Hospital | [facility] | | | Discharge | | + + + + | 2022-12-19 13:30 | CELLULITIS, UNSPECIFIED | [facility] | + + + + | 2022-12-19 13:46 | CELLULITIS, UNSPECIFIED | [facility] | + + + + Procedures No information. Results/Labs +--------+--------+ +---------+--------+---------+ | test | date | facility | value | unit | notes | +--------+--------+ +---------+--------+---------+ + + | Result panel 1 | + + + + + + + + + | EGFR | 2019-10-03 | [facility] | > | | (missing) | | (GLOMERULAR | 13:48:17 | Health | | ml/min/1.73m | | | FILTRATION | | System - | | ? | | | RATE) | | [facility] | | | | | ML/MIN/1.73 | | | | | | | SQ M. | | | | | | + + + + + + + | EGFR | 2019-10-03 | [facility] | > | | (missing) | | (GLOMERULAR | 13:48:17 | Health | | ml/min/1.73m | | | FILTRATION | | System - | | ? | | | RATE) | | [facility] | | | | | ML/MIN/1.73 | | | | | | | SQ M. | | | | | | + + + + + + + | ALCOHOL | 2019-10-03 | [facility] | < | g/dl | (missing) | | (G/DL) IN | 13:48:17 | Health | | | | | SER/PLAS | | System - | | | | | | | [facility] | | | | + + + + + + + | ALCOHOL | 2019-10-03 | [facility] | < | g/dl | (missing) | | (G/DL) IN | 13:48:17 | Health | | | | | SER/PLAS | | System - | | | | | | | [facility] | | | | + + + + + + + | | 2019-10-03 | [facility] | < | mcg/ml | (missing) | | ACETAMINOPHE | 13:48:17 | Health | | | | | N (UG/ML) IN | | System - | | | | | SER/PLAS | | [facility] | | | | + + + + + + + | | 2019-10-03 | [facility] | < | mcg/ml | (missing) | | ACETAMINOPHE | 13:48:17 | Health | | | | | N (UG/ML) IN | | System - | | | | | SER/PLAS | | [facility] | | | | + + + + + + + | SALICYLATE | 2019-10-03 | [facility] | < | mg/dl | (missing) | | (MG/DL) IN | 13:48:17 | Health | | | | | SER/PLAS | | System - | | | | | | | [facility] | | | | + + + + + + + | SALICYLATE | 2019-10-03 | [facility] | < | mg/dl | (missing) | | (MG/DL) IN | :48:17 | Health | | | | | SER/PLAS | | System - | | | | | | | [facility] | | | | + + + + + + + | NRBC/100 | 2019-10-03 | [facility] | 0.0 | % | (missing) | | WBCS BY | 13:48:17 | Health | | | | | AUTOMATED | | System - | | | | | COUNT | | [facility] | | | | + + + + + + + | NRBC/100 | 2019-10-03 | [facility] | 0.0 | % | (missing) | | WBCS BY | 13:48:17 | Health | | | | | AUTOMATED | | System - | | | | | COUNT | | [facility] | | | | + + + + + + + | | 2019-10-03 | [facility] | 0.0 | k/mcl | (missing) | | NRBC(10*3/UL | 13:48:17 | Health | | | | | ) IN BLOOD | | System - | | | | | BY AUTOMATED | | [facility] | | | | | COUNT | | | | | | + + + + + + + | | 2019-10-03 | [facility] | 0.0 | k/mcl | (missing) | | NRBC(10*3/UL | 13:48:17 | Health | | | | | ) IN BLOOD | | System - | | | | | BY AUTOMATED | | [facility] | | | | | COUNT | | | | | | + + + + + + + | IMMATURE | 2019-10-03 | [facility] | 0.04 | k/mcl | (missing) | | GRANULOCYTE | 13:48:17 | Health | | | | | (ABS) | | System - | | | | | | | [facility] | | | | + + + + + + + | IMMATURE | 2019-10-03 | [facility] | 0.04 | k/mcl | (missing) | | GRANULOCYTE | 13:48:17 | Health | | | | | (ABS) | | System - | | | | | | | [facility] | | | | + + + + + + + | BASOPHILS | 2019-10-03 | [facility] | 0.1 | k/mcl | (missing) | | (10*3/UL) IN | 13:48:17 | Health | | | | | BLOOD BY | | System - | | | | | AUTOMATED | | [facility] | | | | | COUNT | | | | | | + + + + + + + | BASOPHILS | 2019-10-03 | [facility] | 0.1 | k/mcl | (missing) | | (10*3/UL) IN | 13:48:17 | Health | | | | | BLOOD BY | | System - | | | | | AUTOMATED | | [facility] | | | | | COUNT | | | | | | + + + + + + + | BILIRUBIN | 2019-10-03 | [facility] | 0.2 | mg/dl | (missing) | | TOTAL | 13:48:17 | Health | | | | | (MG/DL) IN | | System - | | | | | SER/PLAS | | [facility] | | | | + + + + + + + | BILIRUBIN | 2019-10-03 | [facility] | 0.2 | mg/dl | (missing) | | TOTAL | 13:48:17 | Health | | | | | (MG/DL) IN | | System - | | | | | SER/PLAS | | [facility] | | | | + + + + + + + | EOSINOPHILS | 2019-10-03 | [facility] | 0.3 | k/mcl | (missing) | | (10*3/UL) | 13:48:17 | Health | | | | | IN BLOOD BY | | System - | | | | | AUTOMATED | | [facility] | | | | | COUNT | | | | | | + + + + + + + | EOSINOPHILS | 2019-10-03 | [facility] | 0.3 | k/mcl | (missing) | | (10*3/UL) | 13:48:17 | Health | | | | | IN BLOOD BY | | System - | | | | | AUTOMATED | | [facility] | | | | | COUNT | | | | | | + + + + + + + | IMMATURE | 2019-10-03 | [facility] | 0.4 | % | (missing) | | GRANULOCYTE | 13:48:17 | Health | | | | | % (AUTO) | | System - | | | | | | | [facility] | | | | + + + + + + + | IMMATURE | 2019-10-03 | [facility] | 0.4 | % | (missing) | | GRANULOCYTE | 13:48:17 | Health | | | | | % (AUTO) | | System - | | | | | | | [facility] | | | | + + + + + + + | | 2019-10-03 | [facility] | 0.5 | % | (missing) | | BASOPHILS/10 | 13:48:17 | Health | | | | | 0 LEUKOCYTES | | System - | | | | | IN BLOOD BY | | [facility] | | | | | AUTOMATED | | | | | | | COUNT | | | | | | + + + + + + + | | 2019-10-03 | [facility] | 0.5 | % | (missing) | | BASOPHILS/10 | 13:48:17 | Health | | | | | 0 LEUKOCYTES | | System - | | | | | IN BLOOD BY | | [facility] | | | | | AUTOMATED | | | | | | | COUNT | | | | | | + + + + + + + | CREATININE | 2019-10-03 | [facility] | 0.7 | mg/dl | (missing) | | (MG/DL) IN | 13:48:17 | Health | | | | | SER/PLAS | | System - | | | | | | | [facility] | | | | + + + + + + + | CREATININE | 2019-10-03 | [facility] | 0.7 | mg/dl | (missing) | | (MG/DL) IN | 13:48:17 | Health | | | | | SER/PLAS | | System - | | | | | | | [facility] | | | | + + + + + + + | MONOCYTES | 2019-10-03 | [facility] | 0.8 | k/mcl | (missing) | | (10*3/UL) IN | 13:48:17 | Health | | | | | BLOOD BY | | System - | | | | | AUTOMATED | | [facility] | | | | | COUNT | | | | | | + + + + + + + | MONOCYTES | 2019-10-03 | [facility] | 0.8 | k/mcl | (missing) | | (10*3/UL) IN | 13:48:17 | Health | | | | | BLOOD BY | | System - | | | | | AUTOMATED | | [facility] | | | | | COUNT | | | | | | + + + + + + + | MUCUS | 2019-10-03 | [facility] | 1 | (missing) | (missing) | | (#/HPF) IN | 13:48:17 | Health | | | | | URINE | | System - | | | | | SEDIMENT | | [facility] | | | | + + + + + + + | MUCUS | 2019-10-03 | [facility] | 1 | (missing) | (missing) | | (#/HPF) IN | 13:48:17 | Health | | | | | URINE | | System - | | | | | SEDIMENT | | [facility] | | | | + + + + + + + | SPECIFIC | 2019-10-03 | [facility] | 1.020 | (missing) | (missing) | | GRAVITY OF | 13:48:17 | Health | | | | | URINE BY | | System - | | | | | AUTOMATED | | [facility] | | | | | TEST STRIP | | | | | | + + + + + + + | SPECIFIC | 2019-10-03 | [facility] | 1.020 | (missing) | (missing) | | GRAVITY OF | 13:48:17 | Health | | | | | URINE BY | | System - | | | | | AUTOMATED | | [facility] | | | | | TEST STRIP | | | | | | + + + + + + + | | 2019-10-03 | [facility] | 1.62 | :1 | (missing) | | ALBUMIN/GLOB | 13:48:17 | Health | | | | | ULIN (A/G | | System - | | | | | RATIO) IN | | [facility] | | | | | SER/PLAS | | | | | | + + + + + + + | | 2019-10-03 | [facility] | 1.62 | :1 | (missing) | | ALBUMIN/GLOB | 13:48:17 | Health | | | | | ULIN (A/G | | System - | | | | | RATIO) IN | | [facility] | | | | | SER/PLAS | | | | | | + + + + + + + | CHLORIDE | 2019-10-03 | [facility] | 103 | mmol/l | (missing) | | (MMOL/L) IN | 13:48:17 | Health | | | | | SER/PLAS | | System - | | | | | | | [facility] | | | | + + + + + + + | CHLORIDE | 2019-10-03 | [facility] | 103 | mmol/l | (missing) | | (MMOL/L) IN | 13:48:17 | Health | | | | | SER/PLAS | | System - | | | | | | | [facility] | | | | + + + + + + + | ASPARTATE | 2019-10-03 | [facility] | 11 | u/l | (missing) | | AMINOTRANSFE | 13:48:17 | Health | | | | | RASE (SGOT) | | System - | | | | | (U/L) IN | | [facility] | | | | | SER/PLAS | | | | | | + + + + + + + | ASPARTATE | 2019-10-03 | [facility] | 11 | u/l | (missing) | | AMINOTRANSFE | 13:48:17 | Health | | | | | RASE (SGOT) | | System - | | | | | (U/L) IN | | [facility] | | | | | SER/PLAS | | | | | | + + + + + + + | ERYTHROCYTE | 2019-10-03 | [facility] | 12.3 | % | (missing) | | | 13:48:17 | Health | | | | | DISTRIBUTION | | System - | | | | | WIDTH | | [facility] | | | | | (RATIO) BY | | | | | | | AUTOMATED | | | | | | | COUNT | | | | | | + + + + + + + | ERYTHROCYTE | 2019-10-03 | [facility] | 12.3 | % | (missing) | | | 13:48:17 | Health | | | | | DISTRIBUTION | | System - | | | | | WIDTH | | [facility] | | | | | (RATIO) BY | | | | | | | AUTOMATED | | | | | | | COUNT | | | | | | + + + + + + + | ANION GAP | 2019-10-03 | [facility] | 13.0 | mmol/l | (missing) | | IN SER/PLAS | 13:48:17 | Health | | | | | | | System - | | | | | | | [facility] | | | | + + + + + + + | ANION GAP | 2019-10-03 | [facility] | 13.0 | mmol/l | (missing) | | IN SER/PLAS | 13:48:17 | Health | | | | | | | System - | | | | | | | [facility] | | | | + + + + + + + | SODIUM | 2019-10-03 | [facility] | 142 | mmol/l | (missing) | | (MMOL/L) IN | 13:48:17 | Health | | | | | SER/PLAS | | System - | | | | | | | [facility] | | | | + + + + + + + | SODIUM | 2019-10-03 | [facility] | 142 | mmol/l | (missing) | | (MMOL/L) IN | 13:48:17 | Health | | | | | SER/PLAS | | System - | | | | | | | [facility] | | | | + + + + + + + | HEMOGLOBIN | 2019-10-03 | [facility] | 15.7 | g/dl | (missing) | | (G/DL) IN | 13:48:17 | Health | | | | | BLOOD | | System - | | | | | | | [facility] | | | | + + + + + + + | HEMOGLOBIN | 2019-10-03 | [facility] | 15.7 | g/dl | (missing) | | (G/DL) IN | 13:48:17 | Health | | | | | BLOOD | | System - | | | | | | | [facility] | | | | + + + + + + + | ALANINE | 2019-10-03 | [facility] | 16 | u/l | (missing) | | AMINOTRANSFE | 13:48:17 | Health | | | | | RASE (SGPT) | | System - | | | | | (U/L) IN | | [facility] | | | | | SER/PLAS | | | | | | + + + + + + + | ALANINE | 2019-10-03 | [facility] | 16 | u/l | (missing) | | AMINOTRANSFE | 13:48:17 | Health | | | | | RASE (SGPT) | | System - | | | | | (U/L) IN | | [facility] | | | | | SER/PLAS | | | | | | + + + + + + + | RBC (#/HPF) | 2019-10-03 | [facility] | 2 | /hpf | (missing) | | IN URINE | 13:48:17 | Health | | | | | SEDIMENT | | System - | | | | | | | [facility] | | | | + + + + + + + | RBC (#/HPF) | 2019-10-03 | [facility] | 2 | /hpf | (missing) | | IN URINE | 13:48:17 | Health | | | | | SEDIMENT | | System - | | | | | | | [facility] | | | | + + + + + + + | GLOBULIN | 2019-10-03 | [facility] | 2.6 | g/dl | (missing) | | (G/DL) IN | 13:48:17 | Health | | | | | SER/PLAS | | System - | | | | | | | [facility] | | | | + + + + + + + | GLOBULIN | 2019-10-03 | [facility] | 2.6 | g/dl | (missing) | | (G/DL) IN | 13:48:17 | Health | | | | | SER/PLAS | | System - | | | | | | | [facility] | | | | + + + + + + + | | 2019-10-03 | [facility] | 2.7 | % | (missing) | | EOSINOPHILS/ | 13:48:17 | Health | | | | | 100 | | System - | | | | | LEUKOCYTES | | [facility] | | | | | IN BLOOD BY | | | | | | | AUTOMATED | | | | | | | COUNT | | | | | | + + + + + + + | | 2019-10-03 | [facility] | 2.7 | % | (missing) | | EOSINOPHILS/ | 13:48:17 | Health | | | | | 100 | | System - | | | | | LEUKOCYTES | | [facility] | | | | | IN BLOOD BY | | | | | | | AUTOMATED | | | | | | | COUNT | | | | | | + + + + + + + | SQUAMOUS | 2019-10-03 | [facility] | 20 | /hpf | (missing) | | EPITHELIAL | 13:48:17 | Health | | | | | CELLS | | System - | | | | | (#/HPF) IN | | [facility] | | | | | URINE | | | | | | | SEDIMENT | | | | | | + + + + + + + | SQUAMOUS | 2019-10-03 | [facility] | 20 | /hpf | (missing) | | EPITHELIAL | 13:48:17 | Health | | | | | CELLS | | System - | | | | | (#/HPF) IN | | [facility] | | | | | URINE | | | | | | | SEDIMENT | | | | | | + + + + + + + | CARBON | 2019-10-03 | [facility] | 26 | mmol/l | (missing) | | DIOXIDE | 13:48:17 | Health | | | | | (CO2), TOTAL | | System - | | | | | (MMOL/L) IN | | [facility] | | | | | SER/PLAS | | | | | | + + + + + + + | CARBON | 2019-10-03 | [facility] | 26 | mmol/l | (missing) | | DIOXIDE | 13:48:17 | Health | | | | | (CO2), TOTAL | | System - | | | | | (MMOL/L) IN | | [facility] | | | | | SER/PLAS | | | | | | + + + + + + + | BACTERIA | 2019-10-03 | [facility] | 3 | /hpf | (missing) | | (#/HPF) IN | 13:48:17 | Health | | | | | URINE | | System - | | | | | | | [facility] | | | | + + + + + + + | WBC | 2019-10-03 | [facility] | 3 | /hpf | (missing) | | (LEUKOCYTE) | 13:48:17 | Health | | | | | (#/HPF) IN | | System - | | | | | URINE | | [facility] | | | | | SEDIMENT | | | | | | + + + + + + + | BACTERIA | 2019-10-03 | [facility] | 3 | /hpf | (missing) | | (#/HPF) IN | 13:48:17 | Health | | | | | URINE | | System - | | | | | | | [facility] | | | | + + + + + + + | WBC | 2019-10-03 | [facility] | 3 | /hpf | (missing) | | (LEUKOCYTE) | 13:48:17 | Health | | | | | (#/HPF) IN | | System - | | | | | URINE | | [facility] | | | | | SEDIMENT | | | | | | + + + + + + + | LYMPHOCYTES | 2019-10-03 | [facility] | 3.4 | k/mcl | (missing) | | (10*3/UL) | 13:48:17 | Health | | | | | IN BLOOD BY | | System - | | | | | AUTOMATED | | [facility] | | | | | COUNT | | | | | | + + + + + + + | LYMPHOCYTES | 2019-10-03 | [facility] | 3.4 | k/mcl | (missing) | | (10*3/UL) | 13:48:17 | Health | | | | | IN BLOOD BY | | System - | | | | | AUTOMATED | | [facility] | | | | | COUNT | | | | | | + + + + + + + | POTASSIUM | 2019-10-03 | [facility] | 3.5 | mmol/l | (missing) | | (MMOL/L) IN | 13:48:17 | Health | | | | | SER/PLAS | | System - | | | | | | | [facility] | | | | + + + + + + + | POTASSIUM | 2019-10-03 | [facility] | 3.5 | mmol/l | (missing) | | (MMOL/L) IN | 13:48:17 | Health | | | | | SER/PLAS | | System - | | | | | | | [facility] | | | | + + + + + + + | ERYTHROCYTE | 2019-10-03 | [facility] | 31.1 | pg | (missing) | | MEAN | 13:48:17 | Health | | | | | CORPUSCULAR | | System - | | | | | HEMOGLOBIN | | [facility] | | | | | (PG) BY | | | | | | | AUTOMATED | | | | | | | COUNT | | | | | | + + + + + + + | ERYTHROCYTE | 2019-10-03 | [facility] | 31.1 | pg | (missing) | | MEAN | 13:48:17 | Health | | | | | CORPUSCULAR | | System - | | | | | HEMOGLOBIN | | [facility] | | | | | (PG) BY | | | | | | | AUTOMATED | | | | | | | COUNT | | | | | | + + + + + + + | ERYTHROCYTE | 2019-10-03 | [facility] | 34.3 | g/dl | (missing) | | MEAN | 13:48:17 | Health | | | | | CORPUSCULAR | | System - | | | | | HEMOGLOBIN | | [facility] | | | | | CONCENTRATIO | | | | | | | N (G/DL) BY | | | | | | | AUTOMATED | | | | | | + + + + + + + | ERYTHROCYTE | 2019-10-03 | [facility] | 34.3 | g/dl | (missing) | | MEAN | 13:48:17 | Health | | | | | CORPUSCULAR | | System - | | | | | HEMOGLOBIN | | [facility] | | | | | CONCENTRATIO | | | | | | | N (G/DL) BY | | | | | | | AUTOMATED | | | | | | + + + + + + + | PLATELETS | 2019-10-03 | [facility] | 341 | k/mcl | (missing) | | (10*3/UL) IN | 13:48:17 | Health | | | | | BLOOD | | System - | | | | | AUTOMATED | | [facility] | | | | | COUNT | | | | | | + + + + + + + | PLATELETS | 2019-10-03 | [facility] | 341 | k/mcl | (missing) | | (10*3/UL) IN | 13:48:17 | Health | | | | | BLOOD | | System - | | | | | AUTOMATED | | [facility] | | | | | COUNT | | | | | | + + + + + + + | | 2019-10-03 | [facility] | 37.0 | % | (missing) | | LYMPHOCYTES/ | 13:48:17 | Health | | | | | 100 | | System - | | | | | LEUKOCYTES | | [facility] | | | | | IN BLOOD BY | | | | | | | AUTOMATED | | | | | | | COUNT | | | | | | + + + + + + + | | 2019-10-03 | [facility] | 37.0 | % | (missing) | | LYMPHOCYTES/ | 13:48:17 | Health | | | | | 100 | | System - | | | | | LEUKOCYTES | | [facility] | | | | | IN BLOOD BY | | | | | | | AUTOMATED | | | | | | | COUNT | | | | | | + + + + + + + | | 2019-10-03 | [facility] | 4.0 | mg/dl | (missing) | | UROBILINOGEN | 13:48:17 | Health | | | | | (MG/DL) IN | | System - | | | | | URINE BY | | [facility] | | | | | TEST STRIP | | | | | | + + + + + + + | | 2019-10-03 | [facility] | 4.0 | mg/dl | (missing) | | UROBILINOGEN | 13:48:17 | Health | | | | | (MG/DL) IN | | System - | | | | | URINE BY | | [facility] | | | | | TEST STRIP | | | | | | + + + + + + + | ALBUMIN | 2019-10-03 | [facility] | 4.2 | g/dl | (missing) | | (G/DL) IN | 13:48:17 | Health | | | | | SER/PLAS | | System - | | | | | | | [facility] | | | | + + + + + + + | ALBUMIN | 2019-10-03 | [facility] | 4.2 | g/dl | (missing) | | (G/DL) IN | 13:48:17 | Health | | | | | SER/PLAS | | System - | | | | | | | [facility] | | | | + + + + + + + | NEUTROPHILS | 2019-10-03 | [facility] | 4.7 | k/mcl | (missing) | | (10*3/UL) | 13:48:17 | Health | | | | | IN BLOOD BY | | System - | | | | | AUTOMATED | | [facility] | | | | | COUNT | | | | | | + + + + + + + | NEUTROPHILS | 2019-10-03 | [facility] | 4.7 | k/mcl | (missing) | | (10*3/UL) | 13:48:17 | Health | | | | | IN BLOOD BY | | System - | | | | | AUTOMATED | | [facility] | | | | | COUNT | | | | | | + + + + + + + | HEMATOCRIT | 2019-10-03 | [facility] | 45.8 | % | (missing) | | (%) IN BLOOD | 13:48:17 | Health | | | | | BY | | System - | | | | | AUTOMATED | | [facility] | | | | | COUNT | | | | | | + + + + + + + | HEMATOCRIT | 2019-10-03 | [facility] | 45.8 | % | (missing) | | (%) IN BLOOD | 13:48:17 | Health | | | | | BY | | System - | | | | | AUTOMATED | | [facility] | | | | | COUNT | | | | | | + + + + + + + | | 2019-10-03 | [facility] | 5.05 | m/mcl | (missing) | | ERYTHROCYTES | 13:48:17 | Health | | | | | (10*6/UL) | | System - | | | | | IN BLOOD BY | | [facility] | | | | | AUTOMATED | | | | | | | COUNT | | | | | | + + + + + + + | | 2019-10-03 | [facility] | 5.05 | m/mcl | (missing) | | ERYTHROCYTES | 13:48:17 | Health | | | | | (10*6/UL) | | System - | | | | | IN BLOOD BY | | [facility] | | | | | AUTOMATED | | | | | | | COUNT | | | | | | + + + + + + + | | 2019-10-03 | [facility] | 51.2 | % | (missing) | | NEUTROPHILS/ | 13:48:17 | Health | | | | | 100 | | System - | | | | | LEUKOCYTES | | [facility] | | | | | IN BLOOD BY | | | | | | | AUTOMATED | | | | | | | COUNT | | | | | | + + + + + + + | | 2019-10-03 | [facility] | 51.2 | % | (missing) | | NEUTROPHILS/ | 13:48:17 | Health | | | | | 100 | | System - | | | | | LEUKOCYTES | | [facility] | | | | | IN BLOOD BY | | | | | | | AUTOMATED | | | | | | | COUNT | | | | | | + + + + + + + | ALKALINE | 2019-10-03 | [facility] | 57 | u/l | (missing) | | PHOSPHATASE | 13:48:17 | Health | | | | | (U/L) IN | | System - | | | | | SER/PLAS | | [facility] | | | | + + + + + + + | ALKALINE | 2019-10-03 | [facility] | 57 | u/l | (missing) | | PHOSPHATASE | 13:48:17 | Health | | | | | (U/L) IN | | System - | | | | | SER/PLAS | | [facility] | | | | + + + + + + + | PROTEIN | 2019-10-03 | [facility] | 6.8 | g/dl | (missing) | | (G/DL) IN | 13:48:17 | Health | | | | | SER/PLAS | | System - | | | | | | | [facility] | | | | + + + + + + + | PROTEIN | 2019-10-03 | [facility] | 6.8 | g/dl | (missing) | | (G/DL) IN | 13:48:17 | Health | | | | | SER/PLAS | | System - | | | | | | | [facility] | | | | + + + + + + + | LIPASE | 2019-10-03 | [facility] | 66 | u/l | (missing) | | (U/L) IN | 13:48:17 | Health | | | | | SER/PLAS | | System - | | | | | | | [facility] | | | | + + + + + + + | LIPASE | 2019-10-03 | [facility] | 65 | u/l | (missing) | | (U/L) IN | 13:48:17 | Health | | | | | SER/PLAS | | System - | | | | | | | [facility] | | | | + + + + + + + | GLUCOSE, | 2019-10-03 | [facility] | 68 | mg/dl | (missing) | | RANDOM | 13:48:17 | Health | | | | | (MG/DL) IN | | System - | | | | | SER/PLAS | | [facility] | | | | + + + + + + + | GLUCOSE, | 2019-10-03 | [facility] | 68 | mg/dl | (missing) | | RANDOM | 13:48:17 | Health | | | | | (MG/DL) IN | | System - | | | | | SER/PLAS | | [facility] | | | | + + + + + + + | BLOOD UREA | 2019-10-03 | [facility] | 8 | mg/dl | (missing) | | NITROGEN | 13:48:17 | Health | | | | | (BUN) | | System - | | | | | (MG/DL) IN | | [facility] | | | | | SER/PLAS | | | | | | + + + + + + + | BLOOD UREA | 2019-10-03 | [facility] | 8 | mg/dl | (missing) | | NITROGEN | 13:48:17 | Health | | | | | (BUN) | | System - | | | | | (MG/DL) IN | | [facility] | | | | | SER/PLAS | | | | | | + + + + + + + | PH OF URINE | 2019-10-03 | [facility] | 8.0 | (missing) | (missing) | | | 13:48:17 | Health | | | | | | | System - | | | | | | | [facility] | | | | + + + + + + + | PH OF URINE | 2019-10-03 | [facility] | 8.0 | (missing) | (missing) | | | 13:48:17 | Health | | | | | | | System - | | | | | | | [facility] | | | | + + + + + + + | | 2019-10-03 | [facility] | 8.2 | % | (missing) | | MONOCYTES/10 | 13:48:17 | Health | | | | | 0 LEUKOCYTES | | System - | | | | | IN BLOOD BY | | [facility] | | | | | AUTOMATED | | | | | | | COUNT | | | | | | + + + + + + + | | 2019-10-03 | [facility] | 8.2 | % | (missing) | | MONOCYTES/10 | 13:48:17 | Health | | | | | 0 LEUKOCYTES | | System - | | | | | IN BLOOD BY | | [facility] | | | | | AUTOMATED | | | | | | | COUNT | | | | | | + + + + + + + | | 2019-10-03 | [facility] | 9.1 | k/mcl | (missing) | | LEUKOCYTES(1 | 13:48:17 | Health | | | | | 0*3/UL) IN | | System - | | | | | BLOOD BY | | [facility] | | | | | AUTOMATED | | | | | | | COUNT | | | | | | + + + + + + + | | 2019-10-03 | [facility] | 9.1 | k/mcl | (missing) | | LEUKOCYTES(1 | 13:48:17 | Health | | | | | 0*3/UL) IN | | System - | | | | | BLOOD BY | | [facility] | | | | | AUTOMATED | | | | | | | COUNT | | | | | | + + + + + + + | CALCIUM | 2019-10-03 | [facility] | 9.5 | mg/dl | (missing) | | (MG/DL) IN | 13:48:17 | Health | | | | | SER/PLAS | | System - | | | | | | | [facility] | | | | + + + + + + + | CALCIUM | 2019-10-03 | [facility] | 9.5 | mg/dl | (missing) | | (MG/DL) IN | 13:48:17 | Health | | | | | SER/PLAS | | System - | | | | | | | [facility] | | | | + + + + + + + | PLATELET | 2019-10-03 | [facility] | 9.7 | fl | (missing) | | MEAN VOLUME | 13:48:17 | Health | | | | | (FL) IN | | System - | | | | | BLOOD BY | | [facility] | | | | | AUTOMATED | | | | | | | COUNT | | | | | | + + + + + + + | PLATELET | 2019-10-03 | [facility] | 9.7 | fl | (missing) | | MEAN VOLUME | 13:48:17 | Health | | | | | (FL) IN | | System - | | | | | BLOOD BY | | [facility] | | | | | AUTOMATED | | | | | | | COUNT | | | | | | + + + + + + + | ERYTHROCYTE | 2019-10-03 | [facility] | 90.7 | fl | (missing) | | MEAN | 13:48:17 | Health | | | | | CORPUSCULAR | | System - | | | | | VOLUME (FL) | | [facility] | | | | | BY AUTOMATED | | | | | | | COUNT | | | | | | + + + + + + + | ERYTHROCYTE | 2019-10-03 | [facility] | 90.7 | fl | (missing) | | MEAN | 13:48:17 | Health | | | | | CORPUSCULAR | | System - | | | | | VOLUME (FL) | | [facility] | | | | | BY AUTOMATED | | | | | | | COUNT | | | | | | + + + + + + + | CLARITY OF | 2019-10-03 | [facility] | Hazy | (missing) | (missing) | | URINE | 13:48:17 | Health | | | | | | | System - | | | | | | | [facility] | | | | + + + + + + + | CLARITY OF | 2019-10-03 | [facility] | Darryl | (missing) | (missing) | | URINE | 13:48:17 | Health | | | | | | | System - | | | | | | | [facility] | | | | + + + + + + + | | 2019-10-03 | [facility] | Negative | (missing) | (missing) | | BARBITURATES | 13:48:17 | Health | | | | | PRESENCE IN | | System - | | | | | URINE BY | | [facility] | | | | | SCREEN | | | | | | | METHOD | | | | | | + + + + + + + | | 2019-10-03 | [facility] | Negative | (missing) | (missing) | | BENZODIAZEPI | 13:48:17 | Health | | | | | SURYA | | System - | | | | | (PRESENCE) | | [facility] | | | | | IN URINE BY | | | | | | | SCREEN | | | | | | | METHOD | | | | | | + + + + + + + | BILIRUBIN, | 2019-10-03 | [facility] | Negative | (missing) | (missing) | | TOTAL | 13:48:17 | Health | | | | | PRESENCE IN | | System - | | | | | URINE | | [facility] | | | | + + + + + + + | COCAINE | 2019-10-03 | [facility] | Negative | (missing) | (missing) | | (PRESENCE) | 13:48:17 | Health | | | | | IN URINE BY | | System - | | | | | SCREEN | | [facility] | | | | | METHOD | | | | | | + + + + + + + | GLUCOSE IN | 2019-10-03 | [facility] | Negative | (missing) | (missing) | | URINE | 13:48:17 | Health | | | | | | | System - | | | | | | | [facility] | | | | + + + + + + + | HEMOGLOBIN | 2019-10-03 | [facility] | Negative | (missing) | (missing) | | PRESENCE IN | 13:48:17 | Health | | | | | URINE | | System - | | | | | | | [facility] | | | | + + + + + + + | KETONES IN | 2019-10-03 | [facility] | Negative | (missing) | (missing) | | URINE | 13:48:17 | Health | | | | | | | System - | | | | | | | [facility] | | | | + + + + + + + | LEUKOCYTE | 2019-10-03 | [facility] | Negative | (missing) | (missing) | | ESTERASE | 13:48:17 | Health | | | | | PRESENCE IN | | System - | | | | | URINE BY | | [facility] | | | | | TEST STRIP | | | | | | + + + + + + + | METHADONE | 2019-10-03 | [facility] | Negative | (missing) | (missing) | | (PRESENCE) | 13:48:17 | Health | | | | | IN URINE BY | | System - | | | | | SCREEN | | [facility] | | | | | METHOD | | | | | | + + + + + + + | | 2019-10-03 | [facility] | Negative | (missing) | (missing) | | METHAMPHETAM | 13:48:17 | Health | | | | | INE | | System - | | | | | (PRESENCE) | | [facility] | | | | | IN URINE BY | | | | | | | SCREEN | | | | | | | METHOD | | | | | | + + + + + + + | NITRITE | 2019-10-03 | [facility] | Negative | (missing) | (missing) | | PRESENCE IN | 13:48:17 | Health | | | | | URINE | | System - | | | | | | | [facility] | | | | + + + + + + + | OPIATES | 2019-10-03 | [facility] | Negative | (missing) | (missing) | | (PRESENCE) | 13:48:17 | Health | | | | | IN URINE BY | | System - | | | | | SCREEN | | [facility] | | | | | METHOD | | | | | | + + + + + + + | OXYCODONE | 2019-10-03 | [facility] | Negative | (missing) | (missing) | | (PRESENCE) | 13:48:17 | Health | | | | | IN URINE BY | | System - | | | | | SCREEN | | [facility] | | | | | METHOD | | | | | | + + + + + + + | | 2019-10-03 | [facility] | Negative | (missing) | (missing) | | PHENCYCLIDIN | 13:48:17 | Health | | | | | E (PRESENCE) | | System - | | | | | IN URINE BY | | [facility] | | | | | SCREEN | | | | | | | METHOD | | | | | | + + + + + + + | POCT | 2019-10-03 | [facility] | Negative | (missing) | (missing) | | | 13:48:17 | Health | | | | | TEST URINE | | System - | | | | | | | [facility] | | | | + + + + + + + | PROTEIN IN | 2019-10-03 | [facility] | Negative | (missing) | (missing) | | URINE BY | 13:48:17 | Health | | | | | TEST STRIP | | System - | | | | | | | [facility] | | | | + + + + + + + | TRICYCLIC | 2019-10-03 | [facility] | Negative | (missing) | (missing) | | ANTIDEPRESSA | 13:48:17 | Health | | | | | NTS | | System - | | | | | (PRESENCE) | | [facility] | | | | | IN URINE | | | | | | + + + + + + + | | 2019-10-03 | [facility] | Negative | (missing) | (missing) | | PHENCYCLIDIN | 13:48:17 | Health | | | | | E (PRESENCE) | | System - | | | | | IN URINE BY | | [facility] | | | | | SCREEN | | | | | | | METHOD | | | | | | + + + + + + + | OPIATES | 2019-10-03 | [facility] | Negative | (missing) | (missing) | | (PRESENCE) | 13:48:17 | Health | | | | | IN URINE BY | | System - | | | | | SCREEN | | [facility] | | | | | METHOD | | | | | | + + + + + + + | TRICYCLIC | 2019-10-03 | [facility] | Negative | (missing) | (missing) | | ANTIDEPRESSA | 13:48:17 | Health | | | | | NTS | | System - | | | | | (PRESENCE) | | [facility] | | | | | IN URINE | | | | | | + + + + + + + | | 2019-10-03 | [facility] | Negative | (missing) | (missing) | | METHAMPHETAM | 13:48:17 | Health | | | | | INE | | System - | | | | | (PRESENCE) | | [facility] | | | | | IN URINE BY | | | | | | | SCREEN | | | | | | | METHOD | | | | | | + + + + + + + | OXYCODONE | 2019-10-03 | [facility] | Negative | (missing) | (missing) | | (PRESENCE) | 13:48:17 | Health | | | | | IN URINE BY | | System - | | | | | SCREEN | | [facility] | | | | | METHOD | | | | | | + + + + + + + | BILIRUBIN, | 2019-10-03 | [facility] | Negative | (missing) | (missing) | | TOTAL | 13:48:17 | Health | | | | | PRESENCE IN | | System - | | | | | URINE | | [facility] | | | | + + + + + + + | GLUCOSE IN | 2019-10-03 | [facility] | Negative | (missing) | (missing) | | URINE | 13:48:17 | Health | | | | | | | System - | | | | | | | [facility] | | | | + + + + + + + | COCAINE | 2019-10-03 | [facility] | Negative | (missing) | (missing) | | (PRESENCE) | 13:48:17 | Health | | | | | IN URINE BY | | System - | | | | | SCREEN | | [facility] | | | | | METHOD | | | | | | + + + + + + + | NITRITE | 2019-10-03 | [facility] | Negative | (missing) | (missing) | | PRESENCE IN | 13:48:17 | Health | | | | | URINE | | System - | | | | | | | [facility] | | | | + + + + + + + | KETONES IN | 2019-10-03 | [facility] | Negative | (missing) | (missing) | | URINE | 13:48:17 | Health | | | | | | | System - | | | | | | | [facility] | | | | + + + + + + + | PROTEIN IN | 2019-10-03 | [facility] | Negative | (missing) | (missing) | | URINE BY | 13:48:17 | Health | | | | | TEST STRIP | | System - | | | | | | | [facility] | | | | + + + + + + + | | 2019-10-03 | [facility] | Negative | (missing) | (missing) | | BARBITURATES | 13:48:17 | Health | | | | | PRESENCE IN | | System - | | | | | URINE BY | | [facility] | | | | | SCREEN | | | | | | | METHOD | | | | | | + + + + + + + | | 2019-10-03 | [facility] | Negative | (missing) | (missing) | | BENZODIAZEPI | 13:48:17 | Health | | | | | SURYA | | System - | | | | | (PRESENCE) | | [facility] | | | | | IN URINE BY | | | | | | | SCREEN | | | | | | | METHOD | | | | | | + + + + + + + | METHADONE | 2019-10-03 | [facility] | Negative | (missing) | (missing) | | (PRESENCE) | 13:48:17 | Health | | | | | IN URINE BY | | System - | | | | | SCREEN | | [facility] | | | | | METHOD | | | | | | + + + + + + + | HEMOGLOBIN | 2019-10-03 | [facility] | Negative | (missing) | (missing) | | PRESENCE IN | 13:48:17 | Health | | | | | URINE | | System - | | | | | | | [facility] | | | | + + + + + + + | LEUKOCYTE | 2019-10-03 | [facility] | Negative | (missing) | (missing) | | ESTERASE | 13:48:17 | Health | | | | | PRESENCE IN | | System - | | | | | URINE BY | | [facility] | | | | | TEST STRIP | | | | | | + + + + + + + | POCT | 2019-10-03 | [facility] | Negative | (missing) | (missing) | | | 13:48:17 | Health | | | | | TEST URINE | | System - | | | | | | | [facility] | | | | + + + + + + + | THC | 2019-10-03 | [facility] | Presumptive | (missing) | (missing) | | (CANNABINOID | 13:48:17 | Health | Positive | | | | ) IN URINE | | System - | | | | | BY SCREEN | | [facility] | | | | | METHOD | | | | | | + + + + + + + | THC | 2019-10-03 | [facility] | Presumptive | (missing) | (missing) | | (CANNABINOID | 13:48:17 | Health | Positive | | | | ) IN URINE | | System - | | | | | BY SCREEN | | [facility] | | | | | METHOD | | | | | | + + + + + + + | AMPHETAMINE | 2019-10-03 | [facility] | Presumptive | (missing) | (missing) | | (PRESENCE) | 13:48:17 | Health | Positive | | | | IN URINE BY | | System - | | | | | SCREEN | | [facility] | | | | | METHOD | | | | | | + + + + + + + | AMPHETAMINE | 2019-10-03 | [facility] | Presumptive | (missing) | (missing) | | (PRESENCE) | 13:48:17 | Health | Positive | | | | IN URINE BY | | System - | | | | | SCREEN | | [facility] | | | | | METHOD | | | | | | + + + + + + + | COLOR OF | 2019-10-03 | [facility] | Yellow | (missing) | (missing) | | URINE | 13:48:17 | Health | | | | | | | System - | | | | | | | [facility] | | | | + + + + + + + | COLOR OF | 2019-10-03 | [facility] | Yellow | (missing) | (missing) | | URINE | 13:48:17 | Health | | | | | | | System - | | | | | | | [facility] | | | | + + + + + + + + + | Result panel 2 | + + + + + + + + + | MUCUS | 2019-10-03 | [facility] | 1 | (missing) | (missing) | | (#/HPF) IN | 14:39:44 | Health | | | | | URINE | | System - | | | | | SEDIMENT | | [facility] | | | | + + + + + + + | SPECIFIC | 2019-10-03 | [facility] | 1.020 | (missing) | (missing) | | GRAVITY OF | 14:39:44 | Health | | | | | URINE BY | | System - | | | | | AUTOMATED | | [facility] | | | | | TEST STRIP | | | | | | + + + + + + + | RBC (#/HPF) | 2019-10-03 | [facility] | 2 | /hpf | (missing) | | IN URINE | 14:39:44 | Health | | | | | SEDIMENT | | System - | | | | | | | [facility] | | | | + + + + + + + | SQUAMOUS | 2019-10-03 | [facility] | 20 | /hpf | (missing) | | EPITHELIAL | 14:39:44 | Health | | | | | CELLS | | System - | | | | | (#/HPF) IN | | [facility] | | | | | URINE | | | | | | | SEDIMENT | | | | | | + + + + + + + | BACTERIA | 2019-10-03 | [facility] | 3 | /hpf | (missing) | | (#/HPF) IN | 14:39:44 | Health | | | | | URINE | | System - | | | | | | | [facility] | | | | + + + + + + + | WBC | 2019-10-03 | [facility] | 3 | /hpf | (missing) | | (LEUKOCYTE) | 14:39:44 | Health | | | | | (#/HPF) IN | | System - | | | | | URINE | | [facility] | | | | | SEDIMENT | | | | | | + + + + + + + | | 2019-10-03 | [facility] | 4.0 | mg/dl | (missing) | | UROBILINOGEN | 14:39:44 | Health | | | | | (MG/DL) IN | | System - | | | | | URINE BY | | [facility] | | | | | TEST STRIP | | | | | | + + + + + + + | PH OF URINE | 2019-10-03 | [facility] | 8.0 | (missing) | (missing) | | | 14:39:44 | Health | | | | | | | System - | | | | | | | [facility] | | | | + + + + + + + | CLARITY OF | 2019-10-03 | [facility] | Hazy | (missing) | (missing) | | URINE | 14:39:44 | Health | | | | | | | System - | | | | | | | [facility] | | | | + + + + + + + | BILIRUBIN, | 2019-10-03 | [facility] | Negative | (missing) | (missing) | | TOTAL | 14:39:44 | Health | | | | | PRESENCE IN | | System - | | | | | URINE | | [facility] | | | | + + + + + + + | GLUCOSE IN | 2019-10-03 | [facility] | Negative | (missing) | (missing) | | URINE | 14:39:44 | Health | | | | | | | System - | | | | | | | [facility] | | | | + + + + + + + | NITRITE | 2019-10-03 | [facility] | Negative | (missing) | (missing) | | PRESENCE IN | 14:39:44 | Health | | | | | URINE | | System - | | | | | | | [facility] | | | | + + + + + + + | KETONES IN | 2019-10-03 | [facility] | Negative | (missing) | (missing) | | URINE | 14:39:44 | Health | | | | | | | System - | | | | | | | [facility] | | | | + + + + + + + | PROTEIN IN | 2019-10-03 | [facility] | Negative | (missing) | (missing) | | URINE BY | 14:39:44 | Health | | | | | TEST STRIP | | System - | | | | | | | [facility] | | | | + + + + + + + | HEMOGLOBIN | 2019-10-03 | [facility] | Negative | (missing) | (missing) | | PRESENCE IN | 14:39:44 | Health | | | | | URINE | | System - | | | | | | | [facility] | | | | + + + + + + + | LEUKOCYTE | 2019-10-03 | [facility] | Negative | (missing) | (missing) | | ESTERASE | 14:39:44 | Health | | | | | PRESENCE IN | | System - | | | | | URINE BY | | [facility] | | | | | TEST STRIP | | | | | | + + + + + + + | URINE | 2019-10-03 | [facility] | Normal | (missing) | (missing) | | CULTURE | 14:39:44 | Health | urogenital | | | | | | System - | microbiota | | | | | | [facility] | | | | + + + + + + + | URINE | 2019-10-03 | [facility] | Normal | (missing) | (missing) | | CULTURE | 14:39:44 | Health | urogenital | | | | | | System - | microbiota | | | | | | [facility] | | | | + + + + + + + | COLOR OF | 2019-10-03 | [facility] | Yellow | (missing) | (missing) | | URINE | 14:39:44 | Health | | | | | | | System - | | | | | | | [facility] | | | | + + + + + + + + + | Result panel 3 | + + + + + + + + + | TSH | 2019-10-03 | [facility] | 0.81 | mciu/ml | (missing) | | (THYROTROPIN | 16:33:41 | Health | | | | | ) (MIU/L) IN | | System - | | | | | SER/PLAS | | [facility] | | | | + + + + + + + | TSH | 2019-10-03 | [facility] | 0.81 | mciu/ml | (missing) | | (THYROTROPIN | 16:33:41 | Health | | | | | ) (MIU/L) IN | | System - | | | | | SER/PLAS | | [facility] | | | | + + + + + + + | COVID19 | 2019-10-03 | [facility] | Negative | (missing) | (missing) | | (PCR) | 16:33:41 | Health | | | | | | | System - | | | | | | | [facility] | | | | + + + + + + + | COVID19 | 2019-10-03 | [facility] | Negative | (missing) | (missing) | | (PCR) | 16:33:41 | Health | | | | | | | System - | | | | | | | [facility] | | | | + + + + + + + + + | Result panel 4 | + + + + + + + + + | EGFR | 2020-06-22 | [facility] | > | | (missing) | | (GLOMERULAR | 18:08 | Health | | ml/min/1.73m | | | FILTRATION | | System - | | ? | | | RATE) | | [facility] | | | | | ML/MIN/1.73 | | | | | | | SQ M. | | | | | | + + + + + + + | EGFR | 2020-06-22 | [facility] | > | | (missing) | | (GLOMERULAR | 18:08 | Health | | ml/min/1.73m | | | FILTRATION | | System - | | ? | | | RATE) | | [facility] | | | | | ML/MIN/1.73 | | | | | | | SQ M. | | | | | | + + + + + + + | NRBC/100 | 2020-06-22 | [facility] | 0.0 | % | (missing) | | WBCS BY | 18:08 | Health | | | | | AUTOMATED | | System - | | | | | COUNT | | [facility] | | | | + + + + + + + | NRBC/100 | 2020-06-22 | [facility] | 0.0 | % | (missing) | | WBCS BY | 18:08 | Health | | | | | AUTOMATED | | System - | | | | | COUNT | | [facility] | | | | + + + + + + + | | 2020-06-22 | [facility] | 0.0 | k/mcl | (missing) | | NRBC(10*3/UL | 18:08 | Health | | | | | ) IN BLOOD | | System - | | | | | BY AUTOMATED | | [facility] | | | | | COUNT | | | | | | + + + + + + + | | 2020-06-22 | [facility] | 0.0 | k/mcl | (missing) | | NRBC(10*3/UL | 18:08 | Health | | | | | ) IN BLOOD | | System - | | | | | BY AUTOMATED | | [facility] | | | | | COUNT | | | | | | + + + + + + + | IMMATURE | 2020-06-22 | [facility] | 0.07 | k/mcl | (missing) | | GRANULOCYTE | 18:08 | Health | | | | | (ABS) | | System - | | | | | | | [facility] | | | | + + + + + + + | IMMATURE | 2020-06-22 | [facility] | 0.07 | k/mcl | (missing) | | GRANULOCYTE | 18:08 | Health | | | | | (ABS) | | System - | | | | | | | [facility] | | | | + + + + + + + | BASOPHILS | 2020-06-22 | [facility] | 0.1 | k/mcl | (missing) | | (10*3/UL) IN | 18:08 | Health | | | | | BLOOD BY | | System - | | | | | AUTOMATED | | [facility] | | | | | COUNT | | | | | | + + + + + + + | BASOPHILS | 2020-06-22 | [facility] | 0.1 | k/mcl | (missing) | | (10*3/UL) IN | 18:08 | Health | | | | | BLOOD BY | | System - | | | | | AUTOMATED | | [facility] | | | | | COUNT | | | | | | + + + + + + + | BILIRUBIN | 2020-06-22 | [facility] | 0.2 | mg/dl | (missing) | | TOTAL | 18:08 | Health | | | | | (MG/DL) IN | | System - | | | | | SER/PLAS | | [facility] | | | | + + + + + + + | BILIRUBIN | 2020-06-22 | [facility] | 0.2 | mg/dl | (missing) | | TOTAL | 18:08 | Health | | | | | (MG/DL) IN | | System - | | | | | SER/PLAS | | [facility] | | | | + + + + + + + | | 2020-06-22 | [facility] | 0.2-1.0 | mg/dl | (missing) | | UROBILINOGEN | 18:08 | Health | | | | | (MG/DL) IN | | System - | | | | | URINE BY | | [facility] | | | | | TEST STRIP | | | | | | + + + + + + + | | 2020-06-22 | [facility] | 0.2-1.0 | mg/dl | (missing) | | UROBILINOGEN | 18:08 | Health | | | | | (MG/DL) IN | | System - | | | | | URINE BY | | [facility] | | | | | TEST STRIP | | | | | | + + + + + + + | EOSINOPHILS | 2020-06-22 | [facility] | 0.3 | k/mcl | (missing) | | (10*3/UL) | 18:08 | Health | | | | | IN BLOOD BY | | System - | | | | | AUTOMATED | | [facility] | | | | | COUNT | | | | | | + + + + + + + | EOSINOPHILS | 2020-06-22 | [facility] | 0.3 | k/mcl | (missing) | | (10*3/UL) | 18:08 | Health | | | | | IN BLOOD BY | | System - | | | | | AUTOMATED | | [facility] | | | | | COUNT | | | | | | + + + + + + + | IMMATURE | 2020-06-22 | [facility] | 0.6 | % | (missing) | | GRANULOCYTE | 18:08 | Health | | | | | % (AUTO) | | System - | | | | | | | [facility] | | | | + + + + + + + | IMMATURE | 2020-06-22 | [facility] | 0.6 | % | (missing) | | GRANULOCYTE | 18:08 | Health | | | | | % (AUTO) | | System - | | | | | | | [facility] | | | | + + + + + + + | | 2020-06-22 | [facility] | 0.7 | % | (missing) | | BASOPHILS/10 | 18:08 | Health | | | | | 0 LEUKOCYTES | | System - | | | | | IN BLOOD BY | | [facility] | | | | | AUTOMATED | | | | | | | COUNT | | | | | | + + + + + + + | | 2020-06-22 | [facility] | 0.7 | % | (missing) | | BASOPHILS/10 | 18:08 | Health | | | | | 0 LEUKOCYTES | | System - | | | | | IN BLOOD BY | | [facility] | | | | | AUTOMATED | | | | | | | COUNT | | | | | | + + + + + + + | CREATININE | 2020-06-22 | [facility] | 0.7 | mg/dl | (missing) | | (MG/DL) IN | 18:08 | Health | | | | | SER/PLAS | | System - | | | | | | | [facility] | | | | + + + + + + + | CREATININE | 2020-06-22 | [facility] | 0.7 | mg/dl | (missing) | | (MG/DL) IN | 18:08 | Health | | | | | SER/PLAS | | System - | | | | | | | [facility] | | | | + + + + + + + | MONOCYTES | 2020-06-22 | [facility] | 0.9 | k/mcl | (missing) | | (10*3/UL) IN | 18:08 | Health | | | | | BLOOD BY | | System - | | | | | AUTOMATED | | [facility] | | | | | COUNT | | | | | | + + + + + + + | MONOCYTES | 2020-06-22 | [facility] | 0.9 | k/mcl | (missing) | | (10*3/UL) IN | 18:08 | Health | | | | | BLOOD BY | | System - | | | | | AUTOMATED | | [facility] | | | | | COUNT | | | | | | + + + + + + + | HEMOGLOBIN | 2020-06-22 | [facility] | 1 | (missing) | (missing) | | PRESENCE IN | 18:08 | Health | | | | | URINE | | System - | | | | | | | [facility] | | | | + + + + + + + | HEMOGLOBIN | 2020-06-22 | [facility] | 1 | (missing) | (missing) | | PRESENCE IN | 18:08 | Health | | | | | URINE | | System - | | | | | | | [facility] | | | | + + + + + + + | BACTERIA | 2020-06-22 | [facility] | 1 | /hpf | (missing) | | (#/HPF) IN | 18:08 | Health | | | | | URINE | | System - | | | | | | | [facility] | | | | + + + + + + + | BACTERIA | 2020-06-22 | [facility] | 1 | /hpf | (missing) | | (#/HPF) IN | 18:08 | Health | | | | | URINE | | System - | | | | | | | [facility] | | | | + + + + + + + | SPECIFIC | 2020-06-22 | [facility] | 1.030 | (missing) | (missing) | | GRAVITY OF | 18:08 | Health | | | | | URINE BY | | System - | | | | | AUTOMATED | | [facility] | | | | | TEST STRIP | | | | | | + + + + + + + | SPECIFIC | 2020-06-22 | [facility] | 1.030 | (missing) | (missing) | | GRAVITY OF | 18:08 | Health | | | | | URINE BY | | System - | | | | | AUTOMATED | | [facility] | | | | | TEST STRIP | | | | | | + + + + + + + | | 2020-06-22 | [facility] | 1.58 | :1 | (missing) | | ALBUMIN/GLOB | 18:08 | Health | | | | | ULIN (A/G | | System - | | | | | RATIO) IN | | [facility] | | | | | SER/PLAS | | | | | | + + + + + + + | | 2020-06-22 | [facility] | 1.58 | :1 | (missing) | | ALBUMIN/GLOB | 18:08 | Health | | | | | ULIN (A/G | | System - | | | | | RATIO) IN | | [facility] | | | | | SER/PLAS | | | | | | + + + + + + + | CHLORIDE | 2020-06-22 | [facility] | 103 | mmol/l | (missing) | | (MMOL/L) IN | 18:08 | Health | | | | | SER/PLAS | | System - | | | | | | | [facility] | | | | + + + + + + + | CHLORIDE | 2020-06-22 | [facility] | 103 | mmol/l | (missing) | | (MMOL/L) IN | 18:08 | Health | | | | | SER/PLAS | | System - | | | | | | | [facility] | | | | + + + + + + + | | 2020-06-22 | [facility] | 11.8 | k/mcl | (missing) | | LEUKOCYTES(1 | 18:08 | Health | | | | | 0*3/UL) IN | | System - | | | | | BLOOD BY | | [facility] | | | | | AUTOMATED | | | | | | | COUNT | | | | | | + + + + + + + | | 2020-06-22 | [facility] | 11.8 | k/mcl | (missing) | | LEUKOCYTES(1 | 18:08 | Health | | | | | 0*3/UL) IN | | System - | | | | | BLOOD BY | | [facility] | | | | | AUTOMATED | | | | | | | COUNT | | | | | | + + + + + + + | ERYTHROCYTE | 2020-06-22 | [facility] | 11.9 | % | (missing) | | | 18:08 | Health | | | | | DISTRIBUTION | | System - | | | | | WIDTH | | [facility] | | | | | (RATIO) BY | | | | | | | AUTOMATED | | | | | | | COUNT | | | | | | + + + + + + + | ERYTHROCYTE | 2020-06-22 | [facility] | 11.9 | % | (missing) | | | 18:08 | Health | | | | | DISTRIBUTION | | System - | | | | | WIDTH | | [facility] | | | | | (RATIO) BY | | | | | | | AUTOMATED | | | | | | | COUNT | | | | | | + + + + + + + | ANION GAP | 2020-06-22 | [facility] | 12.0 | mmol/l | (missing) | | IN SER/PLAS | 18:08 | Health | | | | | | | System - | | | | | | | [facility] | | | | + + + + + + + | ANION GAP | 2020-06-22 | [facility] | 12.0 | mmol/l | (missing) | | IN SER/PLAS | 18:08 | Health | | | | | | | System - | | | | | | | [facility] | | | | + + + + + + + | SODIUM | 2020-06-22 | [facility] | 139 | mmol/l | (missing) | | (MMOL/L) IN | 18:08 | Health | | | | | SER/PLAS | | System - | | | | | | | [facility] | | | | + + + + + + + | SODIUM | 2020-06-22 | [facility] | 139 | mmol/l | (missing) | | (MMOL/L) IN | 18:08 | Health | | | | | SER/PLAS | | System - | | | | | | | [facility] | | | | + + + + + + + | HEMOGLOBIN | 2020-06-22 | [facility] | 14.7 | g/dl | (missing) | | (G/DL) IN | 18:08 | Health | | | | | BLOOD | | System - | | | | | | | [facility] | | | | + + + + + + + | HEMOGLOBIN | 2020-06-22 | [facility] | 14.7 | g/dl | (missing) | | (G/DL) IN | 18:08 | Health | | | | | BLOOD | | System - | | | | | | | [facility] | | | | + + + + + + + | BLOOD UREA | 2020-06-22 | [facility] | 15 | mg/dl | (missing) | | NITROGEN | 18:08 | Health | | | | | (BUN) | | System - | | | | | (MG/DL) IN | | [facility] | | | | | SER/PLAS | | | | | | + + + + + + + | BLOOD UREA | 2020-06-22 | [facility] | 15 | mg/dl | (missing) | | NITROGEN | 18:08 | Health | | | | | (BUN) | | System - | | | | | (MG/DL) IN | | [facility] | | | | | SER/PLAS | | | | | | + + + + + + + | ALANINE | 2020-06-22 | [facility] | 16 | u/l | (missing) | | AMINOTRANSFE | 18:08 | Health | | | | | RASE (SGPT) | | System - | | | | | (U/L) IN | | [facility] | | | | | SER/PLAS | | | | | | + + + + + + + | ALANINE | 2020-06-22 | [facility] | 16 | u/l | (missing) | | AMINOTRANSFE | 18:08 | Health | | | | | RASE (SGPT) | | System - | | | | | (U/L) IN | | [facility] | | | | | SER/PLAS | | | | | | + + + + + + + | ASPARTATE | 2020-06-22 | [facility] | 18 | u/l | (missing) | | AMINOTRANSFE | 18:08 | Health | | | | | RASE (SGOT) | | System - | | | | | (U/L) IN | | [facility] | | | | | SER/PLAS | | | | | | + + + + + + + | ASPARTATE | 2020-06-22 | [facility] | 18 | u/l | (missing) | | AMINOTRANSFE | 18:08 | Health | | | | | RASE (SGOT) | | System - | | | | | (U/L) IN | | [facility] | | | | | SER/PLAS | | | | | | + + + + + + + | WBC | 2020-06-22 | [facility] | 2 | /hpf | (missing) | | (LEUKOCYTE) | 18:08 | Health | | | | | (#/HPF) IN | | System - | | | | | URINE | | [facility] | | | | | SEDIMENT | | | | | | + + + + + + + | WBC | 2020-06-22 | [facility] | 2 | /hpf | (missing) | | (LEUKOCYTE) | 18:08 | Health | | | | | (#/HPF) IN | | System - | | | | | URINE | | [facility] | | | | | SEDIMENT | | | | | | + + + + + + + | TSH | 2020-06-22 | [facility] | 2.20 | mciu/ml | (missing) | | (THYROTROPIN | 18:08 | Health | | | | | ) (MIU/L) IN | | System - | | | | | SER/PLAS | | [facility] | | | | + + + + + + + | TSH | 2020-06-22 | [facility] | 2.20 | mciu/ml | (missing) | | (THYROTROPIN | 18:08 | Health | | | | | ) (MIU/L) IN | | System - | | | | | SER/PLAS | | [facility] | | | | + + + + + + + | GLOBULIN | 2020-06-22 | [facility] | 2.6 | g/dl | (missing) | | (G/DL) IN | 18:08 | Health | | | | | SER/PLAS | | System - | | | | | | | [facility] | | | | + + + + + + + | GLOBULIN | 2020-06-22 | [facility] | 2.6 | g/dl | (missing) | | (G/DL) IN | 18:08 | Health | | | | | SER/PLAS | | System - | | | | | | | [facility] | | | | + + + + + + + | | 2020-06-22 | [facility] | 2.9 | % | (missing) | | EOSINOPHILS/ | 18:08 | Health | | | | | 100 | | System - | | | | | LEUKOCYTES | | [facility] | | | | | IN BLOOD BY | | | | | | | AUTOMATED | | | | | | | COUNT | | | | | | + + + + + + + | | 2020-06-22 | [facility] | 2.9 | % | (missing) | | EOSINOPHILS/ | 18:08 | Health | | | | | 100 | | System - | | | | | LEUKOCYTES | | [facility] | | | | | IN BLOOD BY | | | | | | | AUTOMATED | | | | | | | COUNT | | | | | | + + + + + + + | CARBON | 2020-06-22 | [facility] | 24 | mmol/l | (missing) | | DIOXIDE | 18:08 | Health | | | | | (CO2), TOTAL | | System - | | | | | (MMOL/L) IN | | [facility] | | | | | SER/PLAS | | | | | | + + + + + + + | CARBON | 2020-06-22 | [facility] | 24 | mmol/l | (missing) | | DIOXIDE | 18:08 | Health | | | | | (CO2), TOTAL | | System - | | | | | (MMOL/L) IN | | [facility] | | | | | SER/PLAS | | | | | | + + + + + + + | CALCIUM | 2020-06-22 | [facility] | 3 | /hpf | (missing) | | OXALATE | 18:08 | Health | | | | | CRYSTALS | | System - | | | | | (#/HPF) IN | | [facility] | | | | | URINE | | | | | | + + + + + + + | CALCIUM | 2020-06-22 | [facility] | 3 | /hpf | (missing) | | OXALATE | 18:08 | Health | | | | | CRYSTALS | | System - | | | | | (#/HPF) IN | | [facility] | | | | | URINE | | | | | | + + + + + + + | POTASSIUM | 2020-06-22 | [facility] | 3.6 | mmol/l | (missing) | | (MMOL/L) IN | 18:08 | Health | | | | | SER/PLAS | | System - | | | | | | | [facility] | | | | + + + + + + + | POTASSIUM | 2020-06-22 | [facility] | 3.6 | mmol/l | (missing) | | (MMOL/L) IN | 18:08 | Health | | | | | SER/PLAS | | System - | | | | | | | [facility] | | | | + + + + + + + | ERYTHROCYTE | 2020-06-22 | [facility] | 30.9 | pg | (missing) | | MEAN | 18:08 | Health | | | | | CORPUSCULAR | | System - | | | | | HEMOGLOBIN | | [facility] | | | | | (PG) BY | | | | | | | AUTOMATED | | | | | | | COUNT | | | | | | + + + + + + + | ERYTHROCYTE | 2020-06-22 | [facility] | 30.9 | pg | (missing) | | MEAN | 18:08 | Health | | | | | CORPUSCULAR | | System - | | | | | HEMOGLOBIN | | [facility] | | | | | (PG) BY | | | | | | | AUTOMATED | | | | | | | COUNT | | | | | | + + + + + + + | ERYTHROCYTE | 2020-06-22 | [facility] | 34.1 | g/dl | (missing) | | MEAN | 18:08 | Health | | | | | CORPUSCULAR | | System - | | | | | HEMOGLOBIN | | [facility] | | | | | CONCENTRATIO | | | | | | | N (G/DL) BY | | | | | | | AUTOMATED | | | | | | + + + + + + + | ERYTHROCYTE | 2020-06-22 | [facility] | 34.1 | g/dl | (missing) | | MEAN | 18:08 | Health | | | | | CORPUSCULAR | | System - | | | | | HEMOGLOBIN | | [facility] | | | | | CONCENTRATIO | | | | | | | N (G/DL) BY | | | | | | | AUTOMATED | | | | | | + + + + + + + | PLATELETS | 2020-06-22 | [facility] | 376 | k/mcl | (missing) | | (10*3/UL) IN | 18:08 | Health | | | | | BLOOD | | System - | | | | | AUTOMATED | | [facility] | | | | | COUNT | | | | | | + + + + + + + | PLATELETS | 2020-06-22 | [facility] | 376 | k/mcl | (missing) | | (10*3/UL) IN | 18:08 | Health | | | | | BLOOD | | System - | | | | | AUTOMATED | | [facility] | | | | | COUNT | | | | | | + + + + + + + | ALBUMIN | 2020-06-22 | [facility] | 4.1 | g/dl | (missing) | | (G/DL) IN | 18:08 | Health | | | | | SER/PLAS | | System - | | | | | | | [facility] | | | | + + + + + + + | ALBUMIN | 2020-06-22 | [facility] | 4.1 | g/dl | (missing) | | (G/DL) IN | 18:08 | Health | | | | | SER/PLAS | | System - | | | | | | | [facility] | | | | + + + + + + + | | 2020-06-22 | [facility] | 4.76 | m/mcl | (missing) | | ERYTHROCYTES | 18:08 | Health | | | | | (10*6/UL) | | System - | | | | | IN BLOOD BY | | [facility] | | | | | AUTOMATED | | | | | | | COUNT | | | | | | + + + + + + + | | 2020-06-22 | [facility] | 4.76 | m/mcl | (missing) | | ERYTHROCYTES | 18:08 | Health | | | | | (10*6/UL) | | System - | | | | | IN BLOOD BY | | [facility] | | | | | AUTOMATED | | | | | | | COUNT | | | | | | + + + + + + + | LYMPHOCYTES | 2020-06-22 | [facility] | 4.9 | k/mcl | (missing) | | (10*3/UL) | 18:08 | Health | | | | | IN BLOOD BY | | System - | | | | | AUTOMATED | | [facility] | | | | | COUNT | | | | | | + + + + + + + | LYMPHOCYTES | 2020-06-22 | [facility] | 4.9 | k/mcl | (missing) | | (10*3/UL) | 18:08 | Health | | | | | IN BLOOD BY | | System - | | | | | AUTOMATED | | [facility] | | | | | COUNT | | | | | | + + + + + + + | | 2020-06-22 | [facility] | 41.7 | % | (missing) | | LYMPHOCYTES/ | 18:08 | Health | | | | | 100 | | System - | | | | | LEUKOCYTES | | [facility] | | | | | IN BLOOD BY | | | | | | | AUTOMATED | | | | | | | COUNT | | | | | | + + + + + + + | | 2020-06-22 | [facility] | 41.7 | % | (missing) | | LYMPHOCYTES/ | 18:08 | Health | | | | | 100 | | System - | | | | | LEUKOCYTES | | [facility] | | | | | IN BLOOD BY | | | | | | | AUTOMATED | | | | | | | COUNT | | | | | | + + + + + + + | HEMATOCRIT | 2020-06-22 | [facility] | 43.1 | % | (missing) | | (%) IN BLOOD | 18:08 | Health | | | | | BY | | System - | | | | | AUTOMATED | | [facility] | | | | | COUNT | | | | | | + + + + + + + | HEMATOCRIT | 2020-06-22 | [facility] | 43.1 | % | (missing) | | (%) IN BLOOD | 18:08 | Health | | | | | BY | | System - | | | | | AUTOMATED | | [facility] | | | | | COUNT | | | | | | + + + + + + + | | 2020-06-22 | [facility] | 46.9 | % | (missing) | | NEUTROPHILS/ | 18:08 | Health | | | | | 100 | | System - | | | | | LEUKOCYTES | | [facility] | | | | | IN BLOOD BY | | | | | | | AUTOMATED | | | | | | | COUNT | | | | | | + + + + + + + | | 2020-06-22 | [facility] | 46.9 | % | (missing) | | NEUTROPHILS/ | 18:08 | Health | | | | | 100 | | System - | | | | | LEUKOCYTES | | [facility] | | | | | IN BLOOD BY | | | | | | | AUTOMATED | | | | | | | COUNT | | | | | | + + + + + + + | SQUAMOUS | 2020-06-22 | [facility] | 5 | /hpf | (missing) | | EPITHELIAL | 18:08 | Health | | | | | CELLS | | System - | | | | | (#/HPF) IN | | [facility] | | | | | URINE | | | | | | | SEDIMENT | | | | | | + + + + + + + | SQUAMOUS | 2020-06-22 | [facility] | 5 | /hpf | (missing) | | EPITHELIAL | 18:08 | Health | | | | | CELLS | | System - | | | | | (#/HPF) IN | | [facility] | | | | | URINE | | | | | | | SEDIMENT | | | | | | + + + + + + + | PH OF URINE | 2020-06-22 | [facility] | 5.0 | (missing) | (missing) | | | 18:08 | Health | | | | | | | System - | | | | | | | [facility] | | | | + + + + + + + | PH OF URINE | 2020-06-22 | [facility] | 5.0 | (missing) | (missing) | | | 18:08 | Health | | | | | | | System - | | | | | | | [facility] | | | | + + + + + + + | NEUTROPHILS | 2020-06-22 | [facility] | 5.5 | k/mcl | (missing) | | (10*3/UL) | 18:08 | Health | | | | | IN BLOOD BY | | System - | | | | | AUTOMATED | | [facility] | | | | | COUNT | | | | | | + + + + + + + | NEUTROPHILS | 2020-06-22 | [facility] | 5.5 | k/mcl | (missing) | | (10*3/UL) | 18:08 | Health | | | | | IN BLOOD BY | | System - | | | | | AUTOMATED | | [facility] | | | | | COUNT | | | | | | + + + + + + + | PROTEIN | 2020-06-22 | [facility] | 6.7 | g/dl | (missing) | | (G/DL) IN | 18:08 | Health | | | | | SER/PLAS | | System - | | | | | | | [facility] | | | | + + + + + + + | PROTEIN | 2020-06-22 | [facility] | 6.7 | g/dl | (missing) | | (G/DL) IN | 18:08 | Health | | | | | SER/PLAS | | System - | | | | | | | [facility] | | | | + + + + + + + | RBC (#/HPF) | 2020-06-22 | [facility] | 7 | /hpf | (missing) | | IN URINE | 18:08 | Health | | | | | SEDIMENT | | System - | | | | | | | [facility] | | | | + + + + + + + | RBC (#/HPF) | 2020-06-22 | [facility] | 7 | /hpf | (missing) | | IN URINE | 18:08 | Health | | | | | SEDIMENT | | System - | | | | | | | [facility] | | | | + + + + + + + | | 2020-06-22 | [facility] | 7.2 | % | (missing) | | MONOCYTES/10 | 18:08 | Health | | | | | 0 LEUKOCYTES | | System - | | | | | IN BLOOD BY | | [facility] | | | | | AUTOMATED | | | | | | | COUNT | | | | | | + + + + + + + | | 2020-06-22 | [facility] | 7.2 | % | (missing) | | MONOCYTES/10 | 18:08 | Health | | | | | 0 LEUKOCYTES | | System - | | | | | IN BLOOD BY | | [facility] | | | | | AUTOMATED | | | | | | | COUNT | | | | | | + + + + + + + | ALKALINE | 2020-06-22 | [facility] | 71 | u/l | (missing) | | PHOSPHATASE | 18:08 | Health | | | | | (U/L) IN | | System - | | | | | SER/PLAS | | [facility] | | | | + + + + + + + | ALKALINE | 2020-06-22 | [facility] | 71 | u/l | (missing) | | PHOSPHATASE | 18:08 | Health | | | | | (U/L) IN | | System - | | | | | SER/PLAS | | [facility] | | | | + + + + + + + | PLATELET | 2020-06-22 | [facility] | 9.3 | fl | (missing) | | MEAN VOLUME | 18:08 | Health | | | | | (FL) IN | | System - | | | | | BLOOD BY | | [facility] | | | | | AUTOMATED | | | | | | | COUNT | | | | | | + + + + + + + | PLATELET | 2020-06-22 | [facility] | 9.3 | fl | (missing) | | MEAN VOLUME | 18:08 | Health | | | | | (FL) IN | | System - | | | | | BLOOD BY | | [facility] | | | | | AUTOMATED | | | | | | | COUNT | | | | | | + + + + + + + | CALCIUM | 2020-06-22 | [facility] | 9.3 | mg/dl | (missing) | | (MG/DL) IN | 18:08 | Health | | | | | SER/PLAS | | System - | | | | | | | [facility] | | | | + + + + + + + | CALCIUM | 2020-06-22 | [facility] | 9.3 | mg/dl | (missing) | | (MG/DL) IN | 18:08 | Health | | | | | SER/PLAS | | System - | | | | | | | [facility] | | | | + + + + + + + | ERYTHROCYTE | 2020-06-22 | [facility] | 90.5 | fl | (missing) | | MEAN | 18:08 | Health | | | | | CORPUSCULAR | | System - | | | | | VOLUME (FL) | | [facility] | | | | | BY AUTOMATED | | | | | | | COUNT | | | | | | + + + + + + + | ERYTHROCYTE | 2020-06-22 | [facility] | 90.5 | fl | (missing) | | MEAN | 18:08 | Health | | | | | CORPUSCULAR | | System - | | | | | VOLUME (FL) | | [facility] | | | | | BY AUTOMATED | | | | | | | COUNT | | | | | | + + + + + + + | GLUCOSE, | 2020-06-22 | [facility] | 93 | mg/dl | (missing) | | RANDOM | 18:08 | Health | | | | | (MG/DL) IN | | System - | | | | | SER/PLAS | | [facility] | | | | + + + + + + + | GLUCOSE, | 2020-06-22 | [facility] | 93 | mg/dl | (missing) | | RANDOM | 18:08 | Health | | | | | (MG/DL) IN | | System - | | | | | SER/PLAS | | [facility] | | | | + + + + + + + | CLARITY OF | 2020-06-22 | [facility] | Darryl | (missing) | (missing) | | URINE | 18:08 | Health | | | | | | | System - | | | | | | | [facility] | | | | + + + + + + + | CLARITY OF | 2020-06-22 | [facility] | Darryl | (missing) | (missing) | | URINE | 18:08 | Health | | | | | | | System - | | | | | | | [facility] | | | | + + + + + + + | ASA | 2020-06-22 | [facility] | Negative | (missing) | (missing) | | (ASCORBIC | 18:08 | Health | | | | | ACID) IN | | System - | | | | | URINE | | [facility] | | | | + + + + + + + | | 2020-06-22 | [facility] | Negative | (missing) | (missing) | | BARBITURATES | 18:08 | Health | | | | | PRESENCE IN | | System - | | | | | URINE BY | | [facility] | | | | | SCREEN | | | | | | | METHOD | | | | | | + + + + + + + | | 2020-06-22 | [facility] | Negative | (missing) | (missing) | | BENZODIAZEPI | 18:08 | Health | | | | | SURYA | | System - | | | | | (PRESENCE) | | [facility] | | | | | IN URINE BY | | | | | | | SCREEN | | | | | | | METHOD | | | | | | + + + + + + + | BILIRUBIN, | 2020-06-22 | [facility] | Negative | (missing) | (missing) | | TOTAL | 18:08 | Health | | | | | PRESENCE IN | | System - | | | | | URINE | | [facility] | | | | + + + + + + + | COCAINE | 2020-06-22 | [facility] | Negative | (missing) | (missing) | | (PRESENCE) | 18:08 | Health | | | | | IN URINE BY | | System - | | | | | SCREEN | | [facility] | | | | | METHOD | | | | | | + + + + + + + | GLUCOSE IN | 2020-06-22 | [facility] | Negative | (missing) | (missing) | | URINE | 18:08 | Health | | | | | | | System - | | | | | | | [facility] | | | | + + + + + + + | KETONES IN | 2020-06-22 | [facility] | Negative | (missing) | (missing) | | URINE | 18:08 | Health | | | | | | | System - | | | | | | | [facility] | | | | + + + + + + + | LEUKOCYTE | 2020-06-22 | [facility] | Negative | (missing) | (missing) | | ESTERASE | 18:08 | Health | | | | | PRESENCE IN | | System - | | | | | URINE BY | | [facility] | | | | | TEST STRIP | | | | | | + + + + + + + | METHADONE | 2020-06-22 | [facility] | Negative | (missing) | (missing) | | (PRESENCE) | 18:08 | Health | | | | | IN URINE BY | | System - | | | | | SCREEN | | [facility] | | | | | METHOD | | | | | | + + + + + + + | NITRITE | 2020-06-22 | [facility] | Negative | (missing) | (missing) | | PRESENCE IN | 18:08 | Health | | | | | URINE | | System - | | | | | | | [facility] | | | | + + + + + + + | OPIATES | 2020-06-22 | [facility] | Negative | (missing) | (missing) | | (PRESENCE) | 18:08 | Health | | | | | IN URINE BY | | System - | | | | | SCREEN | | [facility] | | | | | METHOD | | | | | | + + + + + + + | OXYCODONE | 2020-06-22 | [facility] | Negative | (missing) | (missing) | | (PRESENCE) | 18:08 | Health | | | | | IN URINE BY | | System - | | | | | SCREEN | | [facility] | | | | | METHOD | | | | | | + + + + + + + | | 2020-06-22 | [facility] | Negative | (missing) | (missing) | | PHENCYCLIDIN | 18:08 | Health | | | | | E (PRESENCE) | | System - | | | | | IN URINE BY | | [facility] | | | | | SCREEN | | | | | | | METHOD | | | | | | + + + + + + + | PROTEIN IN | 2020-06-22 | [facility] | Negative | (missing) | (missing) | | URINE BY | 18:08 | Health | | | | | TEST STRIP | | System - | | | | | | | [facility] | | | | + + + + + + + | THC | 2020-06-22 | [facility] | Negative | (missing) | (missing) | | (CANNABINOID | 18:08 | Health | | | | | ) IN URINE | | System - | | | | | BY SCREEN | | [facility] | | | | | METHOD | | | | | | + + + + + + + | TRICYCLIC | 2020-06-22 | [facility] | Negative | (missing) | (missing) | | ANTIDEPRESSA | 18:08 | Health | | | | | NTS | | System - | | | | | (PRESENCE) | | [facility] | | | | | IN URINE | | | | | | + + + + + + + | | 2020-06-22 | [facility] | Negative | (missing) | (missing) | | PHENCYCLIDIN | 18:08 | Health | | | | | E (PRESENCE) | | System - | | | | | IN URINE BY | | [facility] | | | | | SCREEN | | | | | | | METHOD | | | | | | + + + + + + + | THC | 2020-06-22 | [facility] | Negative | (missing) | (missing) | | (CANNABINOID | 18:08 | Health | | | | | ) IN URINE | | System - | | | | | BY SCREEN | | [facility] | | | | | METHOD | | | | | | + + + + + + + | ASA | 2020-06-22 | [facility] | Negative | (missing) | (missing) | | (ASCORBIC | 18:08 | Health | | | | | ACID) IN | | System - | | | | | URINE | | [facility] | | | | + + + + + + + | OPIATES | 2020-06-22 | [facility] | Negative | (missing) | (missing) | | (PRESENCE) | 18:08 | Health | | | | | IN URINE BY | | System - | | | | | SCREEN | | [facility] | | | | | METHOD | | | | | | + + + + + + + | TRICYCLIC | 2020-06-22 | [facility] | Negative | (missing) | (missing) | | ANTIDEPRESSA | 18:08 | Health | | | | | NTS | | System - | | | | | (PRESENCE) | | [facility] | | | | | IN URINE | | | | | | + + + + + + + | OXYCODONE | 2020-06-22 | [facility] | Negative | (missing) | (missing) | | (PRESENCE) | 18:08 | Health | | | | | IN URINE BY | | System - | | | | | SCREEN | | [facility] | | | | | METHOD | | | | | | + + + + + + + | BILIRUBIN, | 2020-06-22 | [facility] | Negative | (missing) | (missing) | | TOTAL | 18:08 | Health | | | | | PRESENCE IN | | System - | | | | | URINE | | [facility] | | | | + + + + + + + | BHCG QUAL | 2020-06-22 | [facility] | Negative | (missing) | (missing) | | (CHORIOGONAD | 18:08 | Health | | | | | OTROPIN) IN | | System - | | | | | SER/PLAS | | [facility] | | | | + + + + + + + | GLUCOSE IN | 2020-06-22 | [facility] | Negative | (missing) | (missing) | | URINE | 18:08 | Health | | | | | | | System - | | | | | | | [facility] | | | | + + + + + + + | COCAINE | 2020-06-22 | [facility] | Negative | (missing) | (missing) | | (PRESENCE) | 18:08 | Health | | | | | IN URINE BY | | System - | | | | | SCREEN | | [facility] | | | | | METHOD | | | | | | + + + + + + + | NITRITE | 2020-06-22 | [facility] | Negative | (missing) | (missing) | | PRESENCE IN | 18:08 | Health | | | | | URINE | | System - | | | | | | | [facility] | | | | + + + + + + + | KETONES IN | 2020-06-22 | [facility] | Negative | (missing) | (missing) | | URINE | 18:08 | Health | | | | | | | System - | | | | | | | [facility] | | | | + + + + + + + | PROTEIN IN | 2020-06-22 | [facility] | Negative | (missing) | (missing) | | URINE BY | 18:08 | Health | | | | | TEST STRIP | | System - | | | | | | | [facility] | | | | + + + + + + + | | 2020-06-22 | [facility] | Negative | (missing) | (missing) | | BARBITURATES | 18:08 | Health | | | | | PRESENCE IN | | System - | | | | | URINE BY | | [facility] | | | | | SCREEN | | | | | | | METHOD | | | | | | + + + + + + + | | 2020-06-22 | [facility] | Negative | (missing) | (missing) | | BENZODIAZEPI | 18:08 | Health | | | | | SURYA | | System - | | | | | (PRESENCE) | | [facility] | | | | | IN URINE BY | | | | | | | SCREEN | | | | | | | METHOD | | | | | | + + + + + + + | METHADONE | 2020-06-22 | [facility] | Negative | (missing) | (missing) | | (PRESENCE) | 18:08 | Health | | | | | IN URINE BY | | System - | | | | | SCREEN | | [facility] | | | | | METHOD | | | | | | + + + + + + + | LEUKOCYTE | 2020-06-22 | [facility] | Negative | (missing) | (missing) | | ESTERASE | 18:08 | Health | | | | | PRESENCE IN | | System - | | | | | URINE BY | | [facility] | | | | | TEST STRIP | | | | | | + + + + + + + | [facility]CG QUAL | 2020-06-22 | [facility] | Negative | (missing) | (missing) | | (CHORIOGONAD | 18:08 | Health | | | | | OTROPIN) IN | | System - | | | | | SER/PLAS | | [facility] | | | | + + + + + + + | | 2020-06-22 | [facility] | Presumptive | (missing) | (missing) | | METHAMPHETAM | 18:08 | Health | Positive | | | | INE | | System - | | | | | (PRESENCE) | | [facility] | | | | | IN URINE BY | | | | | | | SCREEN | | | | | | | METHOD | | | | | | + + + + + + + | AMPHETAMINE | 2020-06-22 | [facility] | Presumptive | (missing) | (missing) | | (PRESENCE) | 18:08 | Health | Positive | | | | IN URINE BY | | System - | | | | | SCREEN | | [facility] | | | | | METHOD | | | | | | + + + + + + + | | 2020-06-22 | [facility] | Presumptive | (missing) | (missing) | | METHAMPHETAM | 18:08 | Health | Positive | | | | INE | | System - | | | | | (PRESENCE) | | [facility] | | | | | IN URINE BY | | | | | | | SCREEN | | | | | | | METHOD | | | | | | + + + + + + + | AMPHETAMINE | 2020-06-22 | [facility] | Presumptive | (missing) | (missing) | | (PRESENCE) | 18:08 | Health | Positive | | | | IN URINE BY | | System - | | | | | SCREEN | | [facility] | | | | | METHOD | | | | | | + + + + + + + | MUCUS | 2020-06-22 | [facility] | Trace | (missing) | (missing) | | (#/HPF) IN | 18:08 | Health | | | | | URINE | | System - | | | | | SEDIMENT | | [facility] | | | | + + + + + + + | MUCUS | 2020-06-22 | [facility] | Trace | (missing) | (missing) | | (#/HPF) IN | 18:08 | Health | | | | | URINE | | System - | | | | | SEDIMENT | | [facility] | | | | + + + + + + + | COLOR OF | 2020-06-22 | [facility] | Yellow | (missing) | (missing) | | URINE | 18:08 | Health | | | | | | | System - | | | | | | | [facility] | | | | + + + + + + + | COLOR OF | 2020-06-22 | [facility] | Yellow | (missing) | (missing) | | URINE | 18:08 | Health | | | | | | | System - | | | | | | | [facility] | | | | + + + + + + + + + | Result panel 5 | + + + + + + + + + | EGFR | 2020-06-23 | [facility] | > | | (missing) | | (GLOMERULAR | 10:03 | Health | | ml/min/1.73m | | | FILTRATION | | System - | | ? | | | RATE) | | [facility] | | | | | ML/MIN/1.73 | | | | | | | SQ M. | | | | | | + + + + + + + | EGFR | 2020-06-23 | [facility] | > | | (missing) | | (GLOMERULAR | 10:03 | Health | | ml/min/1.73m | | | FILTRATION | | System - | | ? | | | RATE) | | [facility] | | | | | ML/MIN/1.73 | | | | | | | SQ M. | | | | | | + + + + + + + | BILIRUBIN | 2020-06-23 | [facility] | < | mg/dl | (missing) | | TOTAL | 10:03 | Health | | | | | (MG/DL) IN | | System - | | | | | SER/PLAS | | [facility] | | | | + + + + + + + | BILIRUBIN | 2020-06-23 | [facility] | < | mg/dl | (missing) | | TOTAL | 10:03 | Health | | | | | (MG/DL) IN | | System - | | | | | SER/PLAS | | [facility] | | | | + + + + + + + | NRBC/100 | 2020-06-23 | [facility] | 0.0 | % | (missing) | | WBCS BY | 10:03 | Health | | | | | AUTOMATED | | System - | | | | | COUNT | | [facility] | | | | + + + + + + + | NRBC/100 | 2020-06-23 | [facility] | 0.0 | % | (missing) | | WBCS BY | 10:03 | Health | | | | | AUTOMATED | | System - | | | | | COUNT | | [facility] | | | | + + + + + + + | | 2020-06-23 | [facility] | 0.0 | k/mcl | (missing) | | NRBC(10*3/UL | 10:03 | Health | | | | | ) IN BLOOD | | System - | | | | | BY AUTOMATED | | [facility] | | | | | COUNT | | | | | | + + + + + + + | | 2020-06-23 | [facility] | 0.0 | k/mcl | (missing) | | NRBC(10*3/UL | 10:03 | Health | | | | | ) IN BLOOD | | System - | | | | | BY AUTOMATED | | [facility] | | | | | COUNT | | | | | | + + + + + + + | IMMATURE | 2020-06-23 | [facility] | 0.03 | k/mcl | (missing) | | GRANULOCYTE | 10:03 | Health | | | | | (ABS) | | System - | | | | | | | [facility] | | | | + + + + + + + | IMMATURE | 2020-06-23 | [facility] | 0.03 | k/mcl | (missing) | | GRANULOCYTE | 10:03 | Health | | | | | (ABS) | | System - | | | | | | | [facility] | | | | + + + + + + + | BASOPHILS | 2020-06-23 | [facility] | 0.1 | k/mcl | (missing) | | (10*3/UL) IN | 10:03 | Health | | | | | BLOOD BY | | System - | | | | | AUTOMATED | | [facility] | | | | | COUNT | | | | | | + + + + + + + | BASOPHILS | 2020-06-23 | [facility] | 0.1 | k/mcl | (missing) | | (10*3/UL) IN | 10:03 | Health | | | | | BLOOD BY | | System - | | | | | AUTOMATED | | [facility] | | | | | COUNT | | | | | | + + + + + + + | IMMATURE | 2020-06-23 | [facility] | 0.4 | % | (missing) | | GRANULOCYTE | 10:03 | Health | | | | | % (AUTO) | | System - | | | | | | | [facility] | | | | + + + + + + + | IMMATURE | 2020-06-23 | [facility] | 0.4 | % | (missing) | | GRANULOCYTE | 10:03 | Health | | | | | % (AUTO) | | System - | | | | | | | [facility] | | | | + + + + + + + | EOSINOPHILS | 2020-06-23 | [facility] | 0.4 | k/mcl | (missing) | | (10*3/UL) | 10:03 | Health | | | | | IN BLOOD BY | | System - | | | | | AUTOMATED | | [facility] | | | | | COUNT | | | | | | + + + + + + + | EOSINOPHILS | 2020-06-23 | [facility] | 0.4 | k/mcl | (missing) | | (10*3/UL) | 10:03 | Health | | | | | IN BLOOD BY | | System - | | | | | AUTOMATED | | [facility] | | | | | COUNT | | | | | | + + + + + + + | MONOCYTES | 2020-06-23 | [facility] | 0.7 | k/mcl | (missing) | | (10*3/UL) IN | 10:03 | Health | | | | | BLOOD BY | | System - | | | | | AUTOMATED | | [facility] | | | | | COUNT | | | | | | + + + + + + + | MONOCYTES | 2020-06-23 | [facility] | 0.7 | k/mcl | (missing) | | (10*3/UL) IN | 10:03 | Health | | | | | BLOOD BY | | System - | | | | | AUTOMATED | | [facility] | | | | | COUNT | | | | | | + + + + + + + | CREATININE | 2020-06-23 | [facility] | 0.7 | mg/dl | (missing) | | (MG/DL) IN | : | Health | | | | | SER/PLAS | | System - | | | | | | | [facility] | | | | + + + + + + + | CREATININE | 2020-06-23 | [facility] | 0.7 | mg/dl | (missing) | | (MG/DL) IN | : | Health | | | | | SER/PLAS | | System - | | | | | | | [facility] | | | | + + + + + + + | | 2020-06-23 | [facility] | 0.8 | % | (missing) | | BASOPHILS/10 | 10:03 | Health | | | | | 0 LEUKOCYTES | | System - | | | | | IN BLOOD BY | | [facility] | | | | | AUTOMATED | | | | | | | COUNT | | | | | | + + + + + + + | | 2020-06-23 | [facility] | 0.8 | % | (missing) | | BASOPHILS/10 | 10:03 | Health | | | | | 0 LEUKOCYTES | | System - | | | | | IN BLOOD BY | | [facility] | | | | | AUTOMATED | | | | | | | COUNT | | | | | | + + + + + + + | | 2020-06-23 | [facility] | 1.76 | :1 | (missing) | | ALBUMIN/GLOB | 10:03 | Health | | | | | ULIN (A/G | | System - | | | | | RATIO) IN | | [facility] | | | | | SER/PLAS | | | | | | + + + + + + + | | 2020-06-23 | [facility] | 1.76 | :1 | (missing) | | ALBUMIN/GLOB | 10:03 | Health | | | | | ULIN (A/G | | System - | | | | | RATIO) IN | | [facility] | | | | | SER/PLAS | | | | | | + + + + + + + | BLOOD UREA | 2020-06-23 | [facility] | 10 | mg/dl | (missing) | | NITROGEN | 10:03 | Health | | | | | (BUN) | | System - | | | | | (MG/DL) IN | | [facility] | | | | | SER/PLAS | | | | | | + + + + + + + | BLOOD UREA | 2020-06-23 | [facility] | 10 | mg/dl | (missing) | | NITROGEN | 10:03 | Health | | | | | (BUN) | | System - | | | | | (MG/DL) IN | | [facility] | | | | | SER/PLAS | | | | | | + + + + + + + | GLUCOSE, | 2020-06-23 | [facility] | 106 | mg/dl | (missing) | | RANDOM | 10:03 | Health | | | | | (MG/DL) IN | | System - | | | | | SER/PLAS | | [facility] | | | | + + + + + + + | GLUCOSE, | 2020-06-23 | [facility] | 106 | mg/dl | (missing) | | RANDOM | 10:03 | Health | | | | | (MG/DL) IN | | System - | | | | | SER/PLAS | | [facility] | | | | + + + + + + + | CHLORIDE | 2020-06-23 | [facility] | 108 | mmol/l | (missing) | | (MMOL/L) IN | 10:03 | Health | | | | | SER/PLAS | | System - | | | | | | | [facility] | | | | + + + + + + + | CHLORIDE | 2020-06-23 | [facility] | 108 | mmol/l | (missing) | | (MMOL/L) IN | 10:03 | Health | | | | | SER/PLAS | | System - | | | | | | | [facility] | | | | + + + + + + + | ERYTHROCYTE | 2020-06-23 | [facility] | 12.0 | % | (missing) | | | 10: | Health | | | | | DISTRIBUTION | | System - | | | | | WIDTH | | [facility] | | | | | (RATIO) BY | | | | | | | AUTOMATED | | | | | | | COUNT | | | | | | + + + + + + + | ERYTHROCYTE | 2020-06-23 | [facility] | 12.0 | % | (missing) | | | 10:03 | Health | | | | | DISTRIBUTION | | System - | | | | | WIDTH | | [facility] | | | | | (RATIO) BY | | | | | | | AUTOMATED | | | | | | | COUNT | | | | | | + + + + + + + | ALANINE | 2020-06-23 | [facility] | 14 | u/l | (missing) | | AMINOTRANSFE | 10:03 | Health | | | | | RASE (SGPT) | | System - | | | | | (U/L) IN | | [facility] | | | | | SER/PLAS | | | | | | + + + + + + + | ALANINE | 2020-06-23 | [facility] | 14 | u/l | (missing) | | AMINOTRANSFE | 10:03 | Health | | | | | RASE (SGPT) | | System - | | | | | (U/L) IN | | [facility] | | | | | SER/PLAS | | | | | | + + + + + + + | HEMOGLOBIN | 2020-06-23 | [facility] | 14.4 | g/dl | (missing) | | (G/DL) IN | : | Health | | | | | BLOOD | | System - | | | | | | | [facility] | | | | + + + + + + + | HEMOGLOBIN | 2020-06-23 | [facility] | 14.4 | g/dl | (missing) | | (G/DL) IN | 10:03 | Health | | | | | BLOOD | | System - | | | | | | | [facility] | | | | + + + + + + + | SODIUM | 2020-06-23 | [facility] | 141 | mmol/l | (missing) | | (MMOL/L) IN | 10:03 | Health | | | | | SER/PLAS | | System - | | | | | | | [facility] | | | | + + + + + + + | SODIUM | 2020-06-23 | [facility] | 141 | mmol/l | (missing) | | (MMOL/L) IN | 10:03 | Health | | | | | SER/PLAS | | System - | | | | | | | [facility] | | | | + + + + + + + | ASPARTATE | 2020-06-23 | [facility] | 16 | u/l | (missing) | | AMINOTRANSFE | 10:03 | Health | | | | | RASE (SGOT) | | System - | | | | | (U/L) IN | | [facility] | | | | | SER/PLAS | | | | | | + + + + + + + | ASPARTATE | 2020-06-23 | [facility] | 16 | u/l | (missing) | | AMINOTRANSFE | 10:03 | Health | | | | | RASE (SGOT) | | System - | | | | | (U/L) IN | | [facility] | | | | | SER/PLAS | | | | | | + + + + + + + | GLOBULIN | 2020-06-23 | [facility] | 2.1 | g/dl | (missing) | | (G/DL) IN | 10:03 | Health | | | | | SER/PLAS | | System - | | | | | | | [facility] | | | | + + + + + + + | GLOBULIN | 2020-06-23 | [facility] | 2.1 | g/dl | (missing) | | (G/DL) IN | 10:03 | Health | | | | | SER/PLAS | | System - | | | | | | | [facility] | | | | + + + + + + + | CARBON | 2020-06-23 | [facility] | 24 | mmol/l | (missing) | | DIOXIDE | 10:03 | Health | | | | | (CO2), TOTAL | | System - | | | | | (MMOL/L) IN | | [facility] | | | | | SER/PLAS | | | | | | + + + + + + + | CARBON | 2020-06-23 | [facility] | 24 | mmol/l | (missing) | | DIOXIDE | 10:03 | Health | | | | | (CO2), TOTAL | | System - | | | | | (MMOL/L) IN | | [facility] | | | | | SER/PLAS | | | | | | + + + + + + + | LYMPHOCYTES | 2020-06-23 | [facility] | 3.3 | k/mcl | (missing) | | (10*3/UL) | 10:03 | Health | | | | | IN BLOOD BY | | System - | | | | | AUTOMATED | | [facility] | | | | | COUNT | | | | | | + + + + + + + | NEUTROPHILS | 2020-06-23 | [facility] | 3.3 | k/mcl | (missing) | | (10*3/UL) | 10:03 | Health | | | | | IN BLOOD BY | | System - | | | | | AUTOMATED | | [facility] | | | | | COUNT | | | | | | + + + + + + + | LYMPHOCYTES | 2020-06-23 | [facility] | 3.3 | k/mcl | (missing) | | (10*3/UL) | 10:03 | Health | | | | | IN BLOOD BY | | System - | | | | | AUTOMATED | | [facility] | | | | | COUNT | | | | | | + + + + + + + | NEUTROPHILS | 2020-06-23 | [facility] | 3.3 | k/mcl | (missing) | | (10*3/UL) | 10:03 | Health | | | | | IN BLOOD BY | | System - | | | | | AUTOMATED | | [facility] | | | | | COUNT | | | | | | + + + + + + + | POTASSIUM | 2020-06-23 | [facility] | 3.6 | mmol/l | (missing) | | (MMOL/L) IN | 10:03 | Health | | | | | SER/PLAS | | System - | | | | | | | [facility] | | | | + + + + + + + | POTASSIUM | 2020-06-23 | [facility] | 3.6 | mmol/l | (missing) | | (MMOL/L) IN | 10:03 | Health | | | | | SER/PLAS | | System - | | | | | | | [facility] | | | | + + + + + + + | ALBUMIN | 2020-06-23 | [facility] | 3.7 | g/dl | (missing) | | (G/DL) IN | 10: | Health | | | | | SER/PLAS | | System - | | | | | | | [facility] | | | | + + + + + + + | ALBUMIN | 2020-06-23 | [facility] | 3.7 | g/dl | (missing) | | (G/DL) IN | 10: | Health | | | | | SER/PLAS | | System - | | | | | | | [facility] | | | | + + + + + + + | ERYTHROCYTE | 2020-06-23 | [facility] | 31.0 | pg | (missing) | | MEAN | 10: | Health | | | | | CORPUSCULAR | | System - | | | | | HEMOGLOBIN | | [facility] | | | | | (PG) BY | | | | | | | AUTOMATED | | | | | | | COUNT | | | | | | + + + + + + + | ERYTHROCYTE | 2020-06-23 | [facility] | 31.0 | pg | (missing) | | MEAN | 10:03 | Health | | | | | CORPUSCULAR | | System - | | | | | HEMOGLOBIN | | [facility] | | | | | (PG) BY | | | | | | | AUTOMATED | | | | | | | COUNT | | | | | | + + + + + + + | ERYTHROCYTE | 2020-06-23 | [facility] | 34.1 | g/dl | (missing) | | MEAN | 10:03 | Health | | | | | CORPUSCULAR | | System - | | | | | HEMOGLOBIN | | [facility] | | | | | CONCENTRATIO | | | | | | | N (G/DL) BY | | | | | | | AUTOMATED | | | | | | + + + + + + + | ERYTHROCYTE | 2020-06-23 | [facility] | 34.1 | g/dl | (missing) | | MEAN | 10:03 | Health | | | | | CORPUSCULAR | | System - | | | | | HEMOGLOBIN | | [facility] | | | | | CONCENTRATIO | | | | | | | N (G/DL) BY | | | | | | | AUTOMATED | | | | | | + + + + + + + | PLATELETS | 2020-06-23 | [facility] | 352 | k/mcl | (missing) | | (10*3/UL) IN | 10: | Health | | | | | BLOOD | | System - | | | | | AUTOMATED | | [facility] | | | | | COUNT | | | | | | + + + + + + + | PLATELETS | 2020-06-23 | [facility] | 352 | k/mcl | (missing) | | (10*3/UL) IN | : | Health | | | | | BLOOD | | System - | | | | | AUTOMATED | | [facility] | | | | | COUNT | | | | | | + + + + + + + | | 2020-06-23 | [facility] | 4.64 | m/mcl | (missing) | | ERYTHROCYTES | 10: | Health | | | | | (10*6/UL) | | System - | | | | | IN BLOOD BY | | [facility] | | | | | AUTOMATED | | | | | | | COUNT | | | | | | + + + + + + + | | 2020-06-23 | [facility] | 4.64 | m/mcl | (missing) | | ERYTHROCYTES | 10:03 | Health | | | | | (10*6/UL) | | System - | | | | | IN BLOOD BY | | [facility] | | | | | AUTOMATED | | | | | | | COUNT | | | | | | + + + + + + + | HEMATOCRIT | 2020-06-23 | [facility] | 42.2 | % | (missing) | | (%) IN BLOOD | 10:03 | Health | | | | | BY | | System - | | | | | AUTOMATED | | [facility] | | | | | COUNT | | | | | | + + + + + + + | HEMATOCRIT | 2020-06-23 | [facility] | 42.2 | % | (missing) | | (%) IN BLOOD | 10:03 | Health | | | | | BY | | System - | | | | | AUTOMATED | | [facility] | | | | | COUNT | | | | | | + + + + + + + | | 2020-06-23 | [facility] | 42.4 | % | (missing) | | NEUTROPHILS/ | 10:03 | Health | | | | | 100 | | System - | | | | | LEUKOCYTES | | [facility] | | | | | IN BLOOD BY | | | | | | | AUTOMATED | | | | | | | COUNT | | | | | | + + + + + + + | | 2020-06-23 | [facility] | 42.4 | % | (missing) | | NEUTROPHILS/ | 10:03 | Health | | | | | 100 | | System - | | | | | LEUKOCYTES | | [facility] | | | | | IN BLOOD BY | | | | | | | AUTOMATED | | | | | | | COUNT | | | | | | + + + + + + + | | 2020-06-23 | [facility] | 42.7 | % | (missing) | | LYMPHOCYTES/ | 10:03 | Health | | | | | 100 | | System - | | | | | LEUKOCYTES | | [facility] | | | | | IN BLOOD BY | | | | | | | AUTOMATED | | | | | | | COUNT | | | | | | + + + + + + + | | 2020-06-23 | [facility] | 42.7 | % | (missing) | | LYMPHOCYTES/ | 10:03 | Health | | | | | 100 | | System - | | | | | LEUKOCYTES | | [facility] | | | | | IN BLOOD BY | | | | | | | AUTOMATED | | | | | | | COUNT | | | | | | + + + + + + + | | 2020-06-23 | [facility] | 5.1 | % | (missing) | | EOSINOPHILS/ | 10:03 | Health | | | | | 100 | | System - | | | | | LEUKOCYTES | | [facility] | | | | | IN BLOOD BY | | | | | | | AUTOMATED | | | | | | | COUNT | | | | | | + + + + + + + | | 2020-06-23 | [facility] | 5.1 | % | (missing) | | EOSINOPHILS/ | 10:03 | Health | | | | | 100 | | System - | | | | | LEUKOCYTES | | [facility] | | | | | IN BLOOD BY | | | | | | | AUTOMATED | | | | | | | COUNT | | | | | | + + + + + + + | PROTEIN | 2020-06-23 | [facility] | 5.8 | g/dl | (missing) | | (G/DL) IN | : | Health | | | | | SER/PLAS | | System - | | | | | | | [facility] | | | | + + + + + + + | PROTEIN | 2020-06-23 | [facility] | 5.8 | g/dl | (missing) | | (G/DL) IN | 10:03 | Health | | | | | SER/PLAS | | System - | | | | | | | [facility] | | | | + + + + + + + | ALKALINE | 2020-06-23 | [facility] | 69 | u/l | (missing) | | PHOSPHATASE | 10: | Health | | | | | (U/L) IN | | System - | | | | | SER/PLAS | | [facility] | | | | + + + + + + + | ALKALINE | 2020-06-23 | [facility] | 69 | u/l | (missing) | | PHOSPHATASE | 10:03 | Health | | | | | (U/L) IN | | System - | | | | | SER/PLAS | | [facility] | | | | + + + + + + + | | 2020-06-23 | [facility] | 7.8 | k/mcl | (missing) | | LEUKOCYTES(1 | 10:03 | Health | | | | | 0*3/UL) IN | | System - | | | | | BLOOD BY | | [facility] | | | | | AUTOMATED | | | | | | | COUNT | | | | | | + + + + + + + | | 2020-06-23 | [facility] | 7.8 | k/mcl | (missing) | | LEUKOCYTES(1 | 10:03 | Health | | | | | 0*3/UL) IN | | System - | | | | | BLOOD BY | | [facility] | | | | | AUTOMATED | | | | | | | COUNT | | | | | | + + + + + + + | CALCIUM | 2020-06-23 | [facility] | 8.5 | mg/dl | (missing) | | (MG/DL) IN | 10:03 | Health | | | | | SER/PLAS | | System - | | | | | | | [facility] | | | | + + + + + + + | CALCIUM | 2020-06-23 | [facility] | 8.5 | mg/dl | (missing) | | (MG/DL) IN | 10:03 | Health | | | | | SER/PLAS | | System - | | | | | | | [facility] | | | | + + + + + + + | | 2020-06-23 | [facility] | 8.6 | % | (missing) | | MONOCYTES/10 | 10:03 | Health | | | | | 0 LEUKOCYTES | | System - | | | | | IN BLOOD BY | | [facility] | | | | | AUTOMATED | | | | | | | COUNT | | | | | | + + + + + + + | | 2020-06-23 | [facility] | 8.6 | % | (missing) | | MONOCYTES/10 | 10:03 | Health | | | | | 0 LEUKOCYTES | | System - | | | | | IN BLOOD BY | | [facility] | | | | | AUTOMATED | | | | | | | COUNT | | | | | | + + + + + + + | ANION GAP | 2020-06-23 | [facility] | 9.0 | mmol/l | (missing) | | IN SER/PLAS | 10:03 | Health | | | | | | | System - | | | | | | | [facility] | | | | + + + + + + + | ANION GAP | 2020-06-23 | [facility] | 9.0 | mmol/l | (missing) | | IN SER/PLAS | 10:03 | Health | | | | | | | System - | | | | | | | [facility] | | | | + + + + + + + | PLATELET | 2020-06-23 | [facility] | 9.3 | fl | (missing) | | MEAN VOLUME | 10:03 | Health | | | | | (FL) IN | | System - | | | | | BLOOD BY | | [facility] | | | | | AUTOMATED | | | | | | | COUNT | | | | | | + + + + + + + | PLATELET | 2020-06-23 | [facility] | 9.3 | fl | (missing) | | MEAN VOLUME | 10:03 | Health | | | | | (FL) IN | | System - | | | | | BLOOD BY | | [facility] | | | | | AUTOMATED | | | | | | | COUNT | | | | | | + + + + + + + | ERYTHROCYTE | 2020-06-23 | [facility] | 90.9 | fl | (missing) | | MEAN | 10:03 | Health | | | | | CORPUSCULAR | | System - | | | | | VOLUME (FL) | | [facility] | | | | | BY AUTOMATED | | | | | | | COUNT | | | | | | + + + + + + + | ERYTHROCYTE | 2020-06-23 | [facility] | 90.9 | fl | (missing) | | MEAN | 10:03 | Health | | | | | CORPUSCULAR | | System - | | | | | VOLUME (FL) | | [facility] | | | | | BY AUTOMATED | | | | | | | COUNT | | | | | | + + + + + + + | [facility] QUAL | 2020-06-23 | [facility] | Negative | (missing) | (missing) | | (CHORIOGONAD | 10:03 | Health | | | | | OTROPIN) IN | | System - | | | | | SER/PLAS | | [facility] | | | | + + + + + + + | [facility] QUAL | 2020-06-23 | [facility] | Negative | (missing) | (missing) | | (CHORIOGONAD | 10:03 | Health | | | | | OTROPIN) IN | | System - | | | | | SER/PLAS | | [facility] | | | | + + + + + + + + + | Result panel 6 | + + + + + + + + + | EGFR | 2020-06-24 | [facility] | > | | (missing) | | (GLOMERULAR | 19:59 | Health | | ml/min/1.73m | | | FILTRATION | | System - | | ? | | | RATE) | | [facility] | | | | | ML/MIN/1.73 | | | | | | | SQ M. | | | | | | + + + + + + + | EGFR | 2020-06-24 | [facility] | > | | (missing) | | (GLOMERULAR | 19:59 | Health | | ml/min/1.73m | | | FILTRATION | | System - | | ? | | | RATE) | | [facility] | | | | | ML/MIN/1.73 | | | | | | | SQ M. | | | | | | + + + + + + + | ALCOHOL | 2020-06-24 | [facility] | < | g/dl | (missing) | | (G/DL) IN | 19:59 | Health | | | | | SER/PLAS | | System - | | | | | | | [facility] | | | | + + + + + + + | ALCOHOL | 2020-06-24 | [facility] | < | g/dl | (missing) | | (G/DL) IN | 19:59 | Health | | | | | SER/PLAS | | System - | | | | | | | [facility] | | | | + + + + + + + | | 2020-06-24 | [facility] | < | mcg/ml | (missing) | | ACETAMINOPHE | 19:59 | Health | | | | | N (UG/ML) IN | | System - | | | | | SER/PLAS | | [facility] | | | | + + + + + + + | | 2020-06-24 | [facility] | < | mcg/ml | (missing) | | ACETAMINOPHE | 19:59 | Health | | | | | N (UG/ML) IN | | System - | | | | | SER/PLAS | | [facility] | | | | + + + + + + + | SALICYLATE | 2020-06-24 | [facility] | < | mg/dl | (missing) | | (MG/DL) IN | 19:59 | Health | | | | | SER/PLAS | | System - | | | | | | | [facility] | | | | + + + + + + + | BILIRUBIN | 2020-06-24 | [facility] | < | mg/dl | (missing) | | TOTAL | 19:59 | Health | | | | | (MG/DL) IN | | System - | | | | | SER/PLAS | | [facility] | | | | + + + + + + + | BILIRUBIN | 2020-06-24 | [facility] | < | mg/dl | (missing) | | TOTAL | 19:59 | Health | | | | | (MG/DL) IN | | System - | | | | | SER/PLAS | | [facility] | | | | + + + + + + + | SALICYLATE | 2020-06-24 | [facility] | < | mg/dl | (missing) | | (MG/DL) IN | 19:59 | Health | | | | | SER/PLAS | | System - | | | | | | | [facility] | | | | + + + + + + + | NRBC/100 | 2020-06-24 | [facility] | 0.0 | % | (missing) | | WBCS BY | 19:59 | Health | | | | | AUTOMATED | | System - | | | | | COUNT | | [facility] | | | | + + + + + + + | NRBC/100 | 2020-06-24 | [facility] | 0.0 | % | (missing) | | WBCS BY | 19:59 | Health | | | | | AUTOMATED | | System - | | | | | COUNT | | [facility] | | | | + + + + + + + | | 2020-06-24 | [facility] | 0.0 | k/mcl | (missing) | | NRBC(10*3/UL | 19:59 | Health | | | | | ) IN BLOOD | | System - | | | | | BY AUTOMATED | | [facility] | | | | | COUNT | | | | | | + + + + + + + | | 2020-06-24 | [facility] | 0.0 | k/mcl | (missing) | | NRBC(10*3/UL | 19:59 | Health | | | | | ) IN BLOOD | | System - | | | | | BY AUTOMATED | | [facility] | | | | | COUNT | | | | | | + + + + + + + | IMMATURE | 2020-06-24 | [facility] | 0.05 | k/mcl | (missing) | | GRANULOCYTE | 19:59 | Health | | | | | (ABS) | | System - | | | | | | | [facility] | | | | + + + + + + + | IMMATURE | 2020-06-24 | [facility] | 0.05 | k/mcl | (missing) | | GRANULOCYTE | 19:59 | Health | | | | | (ABS) | | System - | | | | | | | [facility] | | | | + + + + + + + | BASOPHILS | 2020-06-24 | [facility] | 0.1 | k/mcl | (missing) | | (10*3/UL) IN | 19:59 | Health | | | | | BLOOD BY | | System - | | | | | AUTOMATED | | [facility] | | | | | COUNT | | | | | | + + + + + + + | BASOPHILS | 2020-06-24 | [facility] | 0.1 | k/mcl | (missing) | | (10*3/UL) IN | 19:59 | Health | | | | | BLOOD BY | | System - | | | | | AUTOMATED | | [facility] | | | | | COUNT | | | | | | + + + + + + + | EOSINOPHILS | 2020-06-24 | [facility] | 0.4 | k/mcl | (missing) | | (10*3/UL) | 19:59 | Health | | | | | IN BLOOD BY | | System - | | | | | AUTOMATED | | [facility] | | | | | COUNT | | | | | | + + + + + + + | EOSINOPHILS | 2020-06-24 | [facility] | 0.4 | k/mcl | (missing) | | (10*3/UL) | 19:59 | Health | | | | | IN BLOOD BY | | System - | | | | | AUTOMATED | | [facility] | | | | | COUNT | | | | | | + + + + + + + | IMMATURE | 2020-06-24 | [facility] | 0.5 | % | (missing) | | GRANULOCYTE | 19:59 | Health | | | | | % (AUTO) | | System - | | | | | | | [facility] | | | | + + + + + + + | IMMATURE | 2020-06-24 | [facility] | 0.5 | % | (missing) | | GRANULOCYTE | 19:59 | Health | | | | | % (AUTO) | | System - | | | | | | | [facility] | | | | + + + + + + + | | 2020-06-24 | [facility] | 0.6 | % | (missing) | | BASOPHILS/10 | 19:59 | Health | | | | | 0 LEUKOCYTES | | System - | | | | | IN BLOOD BY | | [facility] | | | | | AUTOMATED | | | | | | | COUNT | | | | | | + + + + + + + | | 2020-06-24 | [facility] | 0.6 | % | (missing) | | BASOPHILS/10 | 19:59 | Health | | | | | 0 LEUKOCYTES | | System - | | | | | IN BLOOD BY | | [facility] | | | | | AUTOMATED | | | | | | | COUNT | | | | | | + + + + + + + | MONOCYTES | 2020-06-24 | [facility] | 0.6 | k/mcl | (missing) | | (10*3/UL) IN | 19:59 | Health | | | | | BLOOD BY | | System - | | | | | AUTOMATED | | [facility] | | | | | COUNT | | | | | | + + + + + + + | MONOCYTES | 2020-06-24 | [facility] | 0.6 | k/mcl | (missing) | | (10*3/UL) IN | 19:59 | Health | | | | | BLOOD BY | | System - | | | | | AUTOMATED | | [facility] | | | | | COUNT | | | | | | + + + + + + + | CREATININE | 2020-06-24 | [facility] | 0.6 | mg/dl | (missing) | | (MG/DL) IN | 19:59 | Health | | | | | SER/PLAS | | System - | | | | | | | [facility] | | | | + + + + + + + | CREATININE | 2020-06-24 | [facility] | 0.6 | mg/dl | (missing) | | (MG/DL) IN | 19:59 | Health | | | | | SER/PLAS | | System - | | | | | | | [facility] | | | | + + + + + + + | TSH | 2020-06-24 | [facility] | 0.85 | mciu/ml | (missing) | | (THYROTROPIN | 19:59 | Health | | | | | ) (MIU/L) IN | | System - | | | | | SER/PLAS | | [facility] | | | | + + + + + + + | TSH | 2020-06-24 | [facility] | 0.85 | mciu/ml | (missing) | | (THYROTROPIN | 19:59 | Health | | | | | ) (MIU/L) IN | | System - | | | | | SER/PLAS | | [facility] | | | | + + + + + + + | | 2020-06-24 | [facility] | 1.67 | :1 | (missing) | | ALBUMIN/GLOB | 19:59 | Health | | | | | ULIN (A/G | | System - | | | | | RATIO) IN | | [facility] | | | | | SER/PLAS | | | | | | + + + + + + + | | 2020-06-24 | [facility] | 1.67 | :1 | (missing) | | ALBUMIN/GLOB | 19:59 | Health | | | | | ULIN (A/G | | System - | | | | | RATIO) IN | | [facility] | | | | | SER/PLAS | | | | | | + + + + + + + | | 2020-06-24 | [facility] | 10.8 | k/mcl | (missing) | | LEUKOCYTES(1 | 19:59 | Health | | | | | 0*3/UL) IN | | System - | | | | | BLOOD BY | | [facility] | | | | | AUTOMATED | | | | | | | COUNT | | | | | | + + + + + + + | | 2020-06-24 | [facility] | 10.8 | k/mcl | (missing) | | LEUKOCYTES(1 | 19:59 | Health | | | | | 0*3/UL) IN | | System - | | | | | BLOOD BY | | [facility] | | | | | AUTOMATED | | | | | | | COUNT | | | | | | + + + + + + + | CHLORIDE | 2020-06-24 | [facility] | 105 | mmol/l | (missing) | | (MMOL/L) IN | 19:59 | Health | | | | | SER/PLAS | | System - | | | | | | | [facility] | | | | + + + + + + + | CHLORIDE | 2020-06-24 | [facility] | 105 | mmol/l | (missing) | | (MMOL/L) IN | 19:59 | Health | | | | | SER/PLAS | | System - | | | | | | | [facility] | | | | + + + + + + + | ERYTHROCYTE | 2020-06-24 | [facility] | 11.9 | % | (missing) | | | 19:59 | Health | | | | | DISTRIBUTION | | System - | | | | | WIDTH | | [facility] | | | | | (RATIO) BY | | | | | | | AUTOMATED | | | | | | | COUNT | | | | | | + + + + + + + | ERYTHROCYTE | 2020-06-24 | [facility] | 11.9 | % | (missing) | | | 19:59 | Health | | | | | DISTRIBUTION | | System - | | | | | WIDTH | | [facility] | | | | | (RATIO) BY | | | | | | | AUTOMATED | | | | | | | COUNT | | | | | | + + + + + + + | HEMOGLOBIN | 2020-06-24 | [facility] | 13.5 | g/dl | (missing) | | (G/DL) IN | 19:59 | Health | | | | | BLOOD | | System - | | | | | | | [facility] | | | | + + + + + + + | HEMOGLOBIN | 2020-06-24 | [facility] | 13.5 | g/dl | (missing) | | (G/DL) IN | 19:59 | Health | | | | | BLOOD | | System - | | | | | | | [facility] | | | | + + + + + + + | SODIUM | 2020-06-24 | [facility] | 139 | mmol/l | (missing) | | (MMOL/L) IN | 19:59 | Health | | | | | SER/PLAS | | System - | | | | | | | [facility] | | | | + + + + + + + | SODIUM | 2020-06-24 | [facility] | 139 | mmol/l | (missing) | | (MMOL/L) IN | 19:59 | Health | | | | | SER/PLAS | | System - | | | | | | | [facility] | | | | + + + + + + + | ASPARTATE | 2020-06-24 | [facility] | 14 | u/l | (missing) | | AMINOTRANSFE | 19:59 | Health | | | | | RASE (SGOT) | | System - | | | | | (U/L) IN | | [facility] | | | | | SER/PLAS | | | | | | + + + + + + + | ASPARTATE | 2020-06-24 | [facility] | 14 | u/l | (missing) | | AMINOTRANSFE | 19:59 | Health | | | | | RASE (SGOT) | | System - | | | | | (U/L) IN | | [facility] | | | | | SER/PLAS | | | | | | + + + + + + + | ALANINE | 2020-06-24 | [facility] | 15 | u/l | (missing) | | AMINOTRANSFE | 19:59 | Health | | | | | RASE (SGPT) | | System - | | | | | (U/L) IN | | [facility] | | | | | SER/PLAS | | | | | | + + + + + + + | ALANINE | 2020-06-24 | [facility] | 15 | u/l | (missing) | | AMINOTRANSFE | 19:59 | Health | | | | | RASE (SGPT) | | System - | | | | | (U/L) IN | | [facility] | | | | | SER/PLAS | | | | | | + + + + + + + | GLOBULIN | 2020-06-24 | [facility] | 2.1 | g/dl | (missing) | | (G/DL) IN | 19:59 | Health | | | | | SER/PLAS | | System - | | | | | | | [facility] | | | | + + + + + + + | GLOBULIN | 2020-06-24 | [facility] | 2.1 | g/dl | (missing) | | (G/DL) IN | 19:59 | Health | | | | | SER/PLAS | | System - | | | | | | | [facility] | | | | + + + + + + + | CARBON | 2020-06-24 | [facility] | 26 | mmol/l | (missing) | | DIOXIDE | 19:59 | Health | | | | | (CO2), TOTAL | | System - | | | | | (MMOL/L) IN | | [facility] | | | | | SER/PLAS | | | | | | + + + + + + + | CARBON | 2020-06-24 | [facility] | 26 | mmol/l | (missing) | | DIOXIDE | 19:59 | Health | | | | | (CO2), TOTAL | | System - | | | | | (MMOL/L) IN | | [facility] | | | | | SER/PLAS | | | | | | + + + + + + + | PLATELETS | 2020-06-24 | [facility] | 292 | k/mcl | (missing) | | (10*3/UL) IN | 19:59 | Health | | | | | BLOOD | | System - | | | | | AUTOMATED | | [facility] | | | | | COUNT | | | | | | + + + + + + + | PLATELETS | 2020-06-24 | [facility] | 292 | k/mcl | (missing) | | (10*3/UL) IN | 19:59 | Health | | | | | BLOOD | | System - | | | | | AUTOMATED | | [facility] | | | | | COUNT | | | | | | + + + + + + + | POTASSIUM | 2020-06-24 | [facility] | 3.4 | mmol/l | (missing) | | (MMOL/L) IN | 19:59 | Health | | | | | SER/PLAS | | System - | | | | | | | [facility] | | | | + + + + + + + | POTASSIUM | 2020-06-24 | [facility] | 3.4 | mmol/l | (missing) | | (MMOL/L) IN | 19:59 | Health | | | | | SER/PLAS | | System - | | | | | | | [facility] | | | | + + + + + + + | ALBUMIN | 2020-06-24 | [facility] | 3.5 | g/dl | (missing) | | (G/DL) IN | 19:59 | Health | | | | | SER/PLAS | | System - | | | | | | | [facility] | | | | + + + + + + + | ALBUMIN | 2020-06-24 | [facility] | 3.5 | g/dl | (missing) | | (G/DL) IN | 19:59 | Health | | | | | SER/PLAS | | System - | | | | | | | [facility] | | | | + + + + + + + | ERYTHROCYTE | 2020-06-24 | [facility] | 30.5 | pg | (missing) | | MEAN | 19:59 | Health | | | | | CORPUSCULAR | | System - | | | | | HEMOGLOBIN | | [facility] | | | | | (PG) BY | | | | | | | AUTOMATED | | | | | | | COUNT | | | | | | + + + + + + + | ERYTHROCYTE | 2020-06-24 | [facility] | 30.5 | pg | (missing) | | MEAN | 19:59 | Health | | | | | CORPUSCULAR | | System - | | | | | HEMOGLOBIN | | [facility] | | | | | (PG) BY | | | | | | | AUTOMATED | | | | | | | COUNT | | | | | | + + + + + + + | ERYTHROCYTE | 2020-06-24 | [facility] | 33.2 | g/dl | (missing) | | MEAN | 19:59 | Health | | | | | CORPUSCULAR | | System - | | | | | HEMOGLOBIN | | [facility] | | | | | CONCENTRATIO | | | | | | | N (G/DL) BY | | | | | | | AUTOMATED | | | | | | + + + + + + + | ERYTHROCYTE | 2020-06-24 | [facility] | 33.2 | g/dl | (missing) | | MEAN | 19:59 | Health | | | | | CORPUSCULAR | | System - | | | | | HEMOGLOBIN | | [facility] | | | | | CONCENTRATIO | | | | | | | N (G/DL) BY | | | | | | | AUTOMATED | | | | | | + + + + + + + | | 2020-06-24 | [facility] | 38.1 | % | (missing) | | LYMPHOCYTES/ | 19:59 | Health | | | | | 100 | | System - | | | | | LEUKOCYTES | | [facility] | | | | | IN BLOOD BY | | | | | | | AUTOMATED | | | | | | | COUNT | | | | | | + + + + + + + | | 2020-06-24 | [facility] | 38.1 | % | (missing) | | LYMPHOCYTES/ | 19:59 | Health | | | | | 100 | | System - | | | | | LEUKOCYTES | | [facility] | | | | | IN BLOOD BY | | | | | | | AUTOMATED | | | | | | | COUNT | | | | | | + + + + + + + | | 2020-06-24 | [facility] | 4.0 | % | (missing) | | EOSINOPHILS/ | 19:59 | Health | | | | | 100 | | System - | | | | | LEUKOCYTES | | [facility] | | | | | IN BLOOD BY | | | | | | | AUTOMATED | | | | | | | COUNT | | | | | | + + + + + + + | | 2020-06-24 | [facility] | 4.0 | % | (missing) | | EOSINOPHILS/ | 19:59 | Health | | | | | 100 | | System - | | | | | LEUKOCYTES | | [facility] | | | | | IN BLOOD BY | | | | | | | AUTOMATED | | | | | | | COUNT | | | | | | + + + + + + + | LYMPHOCYTES | 2020-06-24 | [facility] | 4.1 | k/mcl | (missing) | | (10*3/UL) | 19:59 | Health | | | | | IN BLOOD BY | | System - | | | | | AUTOMATED | | [facility] | | | | | COUNT | | | | | | + + + + + + + | LYMPHOCYTES | 2020-06-24 | [facility] | 4.1 | k/mcl | (missing) | | (10*3/UL) | 19:59 | Health | | | | | IN BLOOD BY | | System - | | | | | AUTOMATED | | [facility] | | | | | COUNT | | | | | | + + + + + + + | | 2020-06-24 | [facility] | 4.43 | m/mcl | (missing) | | ERYTHROCYTES | 19:59 | Health | | | | | (10*6/UL) | | System - | | | | | IN BLOOD BY | | [facility] | | | | | AUTOMATED | | | | | | | COUNT | | | | | | + + + + + + + | | 2020-06-24 | [facility] | 4.43 | m/mcl | (missing) | | ERYTHROCYTES | 19:59 | Health | | | | | (10*6/UL) | | System - | | | | | IN BLOOD BY | | [facility] | | | | | AUTOMATED | | | | | | | COUNT | | | | | | + + + + + + + | HEMATOCRIT | 2020-06-24 | [facility] | 40.7 | % | (missing) | | (%) IN BLOOD | 19:59 | Health | | | | | BY | | System - | | | | | AUTOMATED | | [facility] | | | | | COUNT | | | | | | + + + + + + + | HEMATOCRIT | 2020-06-24 | [facility] | 40.7 | % | (missing) | | (%) IN BLOOD | 19:59 | Health | | | | | BY | | System - | | | | | AUTOMATED | | [facility] | | | | | COUNT | | | | | | + + + + + + + | NEUTROPHILS | 2020-06-24 | [facility] | 5.5 | k/mcl | (missing) | | (10*3/UL) | 19:59 | Health | | | | | IN BLOOD BY | | System - | | | | | AUTOMATED | | [facility] | | | | | COUNT | | | | | | + + + + + + + | NEUTROPHILS | 2020-06-24 | [facility] | 5.5 | k/mcl | (missing) | | (10*3/UL) | 19:59 | Health | | | | | IN BLOOD BY | | System - | | | | | AUTOMATED | | [facility] | | | | | COUNT | | | | | | + + + + + + + | PROTEIN | 2020-06-24 | [facility] | 5.6 | g/dl | (missing) | | (G/DL) IN | 19:59 | Health | | | | | SER/PLAS | | System - | | | | | | | [facility] | | | | + + + + + + + | PROTEIN | 2020-06-24 | [facility] | 5.6 | g/dl | (missing) | | (G/DL) IN | 19:59 | Health | | | | | SER/PLAS | | System - | | | | | | | [facility] | | | | + + + + + + + | | 2020-06-24 | [facility] | 5.7 | % | (missing) | | MONOCYTES/10 | 19:59 | Health | | | | | 0 LEUKOCYTES | | System - | | | | | IN BLOOD BY | | [facility] | | | | | AUTOMATED | | | | | | | COUNT | | | | | | + + + + + + + | | 2020-06-24 | [facility] | 5.7 | % | (missing) | | MONOCYTES/10 | 19:59 | Health | | | | | 0 LEUKOCYTES | | System - | | | | | IN BLOOD BY | | [facility] | | | | | AUTOMATED | | | | | | | COUNT | | | | | | + + + + + + + | | 2020-06-24 | [facility] | 51.1 | % | (missing) | | NEUTROPHILS/ | 19:59 | Health | | | | | 100 | | System - | | | | | LEUKOCYTES | | [facility] | | | | | IN BLOOD BY | | | | | | | AUTOMATED | | | | | | | COUNT | | | | | | + + + + + + + | | 2020-06-24 | [facility] | 51.1 | % | (missing) | | NEUTROPHILS/ | 19:59 | Health | | | | | 100 | | System - | | | | | LEUKOCYTES | | [facility] | | | | | IN BLOOD BY | | | | | | | AUTOMATED | | | | | | | COUNT | | | | | | + + + + + + + | ALKALINE | 2020-06-24 | [facility] | 61 | u/l | (missing) | | PHOSPHATASE | 19:59 | Health | | | | | (U/L) IN | | System - | | | | | SER/PLAS | | [facility] | | | | + + + + + + + | ALKALINE | 2020-06-24 | [facility] | 61 | u/l | (missing) | | PHOSPHATASE | 19:59 | Health | | | | | (U/L) IN | | System - | | | | | SER/PLAS | | [facility] | | | | + + + + + + + | BLOOD UREA | 2020-06-24 | [facility] | 8 | mg/dl | (missing) | | NITROGEN | 19:59 | Health | | | | | (BUN) | | System - | | | | | (MG/DL) IN | | [facility] | | | | | SER/PLAS | | | | | | + + + + + + + | BLOOD UREA | 2020-06-24 | [facility] | 8 | mg/dl | (missing) | | NITROGEN | 19:59 | Health | | | | | (BUN) | | System - | | | | | (MG/DL) IN | | [facility] | | | | | SER/PLAS | | | | | | + + + + + + + | ANION GAP | 2020-06-24 | [facility] | 8.0 | mmol/l | (missing) | | IN SER/PLAS | 19:59 | Health | | | | | | | System - | | | | | | | [facility] | | | | + + + + + + + | ANION GAP | 2020-06-24 | [facility] | 8.0 | mmol/l | (missing) | | IN SER/PLAS | 19:59 | Health | | | | | | | System - | | | | | | | [facility] | | | | + + + + + + + | CALCIUM | 2020-06-24 | [facility] | 8.6 | mg/dl | (missing) | | (MG/DL) IN | 19:59 | Health | | | | | SER/PLAS | | System - | | | | | | | [facility] | | | | + + + + + + + | CALCIUM | 2020-06-24 | [facility] | 8.6 | mg/dl | (missing) | | (MG/DL) IN | 19:59 | Health | | | | | SER/PLAS | | System - | | | | | | | [facility] | | | | + + + + + + + | PLATELET | 2020-06-24 | [facility] | 9.3 | fl | (missing) | | MEAN VOLUME | 19:59 | Health | | | | | (FL) IN | | System - | | | | | BLOOD BY | | [facility] | | | | | AUTOMATED | | | | | | | COUNT | | | | | | + + + + + + + | PLATELET | 2020-06-24 | [facility] | 9.3 | fl | (missing) | | MEAN VOLUME | 19:59 | Health | | | | | (FL) IN | | System - | | | | | BLOOD BY | | [facility] | | | | | AUTOMATED | | | | | | | COUNT | | | | | | + + + + + + + | ERYTHROCYTE | 2020-06-24 | [facility] | 91.9 | fl | (missing) | | MEAN | 19:59 | Health | | | | | CORPUSCULAR | | System - | | | | | VOLUME (FL) | | [facility] | | | | | BY AUTOMATED | | | | | | | COUNT | | | | | | + + + + + + + | ERYTHROCYTE | 2020-06-24 | [facility] | 91.9 | fl | (missing) | | MEAN | 19:59 | Health | | | | | CORPUSCULAR | | System - | | | | | VOLUME (FL) | | [facility] | | | | | BY AUTOMATED | | | | | | | COUNT | | | | | | + + + + + + + | GLUCOSE, | 2020-06-24 | [facility] | 92 | mg/dl | (missing) | | RANDOM | 19:59 | Health | | | | | (MG/DL) IN | | System - | | | | | SER/PLAS | | [facility] | | | | + + + + + + + | GLUCOSE, | 2020-06-24 | [facility] | 92 | mg/dl | (missing) | | RANDOM | 19:59 | Health | | | | | (MG/DL) IN | | System - | | | | | SER/PLAS | | [facility] | | | | + + + + + + + | | 2020-06-24 | [facility] | Negative | (missing) | (missing) | | BARBITURATES | 19:59 | Health | | | | | PRESENCE IN | | System - | | | | | URINE BY | | [facility] | | | | | SCREEN | | | | | | | METHOD | | | | | | + + + + + + + | COCAINE | 2020-06-24 | [facility] | Negative | (missing) | (missing) | | (PRESENCE) | 19:59 | Health | | | | | IN URINE BY | | System - | | | | | SCREEN | | [facility] | | | | | METHOD | | | | | | + + + + + + + | INFLUENZA A | 2020-06-24 | [facility] | Negative | (missing) | (missing) | | (CEPHEID) | 19:59 | Health | | | | | | | System - | | | | | | | [facility] | | | | + + + + + + + | INFLUENZA B | 2020-06-24 | [facility] | Negative | (missing) | (missing) | | (CEPHEID) | 19:59 | Health | | | | | | | System - | | | | | | | [facility] | | | | + + + + + + + | METHADONE | 2020-06-24 | [facility] | Negative | (missing) | (missing) | | (PRESENCE) | 19:59 | Health | | | | | IN URINE BY | | System - | | | | | SCREEN | | [facility] | | | | | METHOD | | | | | | + + + + + + + | OPIATES | 2020-06-24 | [facility] | Negative | (missing) | (missing) | | (PRESENCE) | 19:59 | Health | | | | | IN URINE BY | | System - | | | | | SCREEN | | [facility] | | | | | METHOD | | | | | | + + + + + + + | OXYCODONE | 2020-06-24 | [facility] | Negative | (missing) | (missing) | | (PRESENCE) | 19:59 | Health | | | | | IN URINE BY | | System - | | | | | SCREEN | | [facility] | | | | | METHOD | | | | | | + + + + + + + | | 2020-06-24 | [facility] | Negative | (missing) | (missing) | | PHENCYCLIDIN | 19:59 | Health | | | | | E (PRESENCE) | | System - | | | | | IN URINE BY | | [facility] | | | | | SCREEN | | | | | | | METHOD | | | | | | + + + + + + + | RSV | 2020-06-24 | [facility] | Negative | (missing) | (missing) | | (CEPHEID) | 19:59 | Health | | | | | | | System - | | | | | | | [facility] | | | | + + + + + + + | SARS-COV-2 | 2020-06-24 | [facility] | Negative | (missing) | (missing) | | (COVID19) | 19:59 | Health | | | | | CEPHEID | | System - | | | | | MOLECULAR | | [facility] | | | | + + + + + + + | THC | 2020-06-24 | [facility] | Negative | (missing) | (missing) | | (CANNABINOID | 19:59 | Health | | | | | ) IN URINE | | System - | | | | | BY SCREEN | | [facility] | | | | | METHOD | | | | | | + + + + + + + | TRICYCLIC | 2020-06-24 | [facility] | Negative | (missing) | (missing) | | ANTIDEPRESSA | 19:59 | Health | | | | | NTS | | System - | | | | | (PRESENCE) | | [facility] | | | | | IN URINE | | | | | | + + + + + + + | | 2020-06-24 | [facility] | Negative | (missing) | (missing) | | PHENCYCLIDIN | 19:59 | Health | | | | | E (PRESENCE) | | System - | | | | | IN URINE BY | | [facility] | | | | | SCREEN | | | | | | | METHOD | | | | | | + + + + + + + | THC | 2020-06-24 | [facility] | Negative | (missing) | (missing) | | (CANNABINOID | 19:59 | Health | | | | | ) IN URINE | | System - | | | | | BY SCREEN | | [facility] | | | | | METHOD | | | | | | + + + + + + + | OPIATES | 2020-06-24 | [facility] | Negative | (missing) | (missing) | | (PRESENCE) | 19:59 | Health | | | | | IN URINE BY | | System - | | | | | SCREEN | | [facility] | | | | | METHOD | | | | | | + + + + + + + | TRICYCLIC | 2020-06-24 | [facility] | Negative | (missing) | (missing) | | ANTIDEPRESSA | 19:59 | Health | | | | | NTS | | System - | | | | | (PRESENCE) | | [facility] | | | | | IN URINE | | | | | | + + + + + + + | OXYCODONE | 2020-06-24 | [facility] | Negative | (missing) | (missing) | | (PRESENCE) | 19:59 | Health | | | | | IN URINE BY | | System - | | | | | SCREEN | | [facility] | | | | | METHOD | | | | | | + + + + + + + | BHCG QUAL | 2020-06-24 | [facility] | Negative | (missing) | (missing) | | (CHORIOGONAD | 19:59 | Health | | | | | OTROPIN) IN | | System - | | | | | SER/PLAS | | [facility] | | | | + + + + + + + | INFLUENZA A | 2020-06-24 | [facility] | Negative | (missing) | (missing) | | (CEPHEID) | 19:59 | Health | | | | | | | System - | | | | | | | [facility] | | | | + + + + + + + | COCAINE | 2020-06-24 | [facility] | Negative | (missing) | (missing) | | (PRESENCE) | 19:59 | Health | | | | | IN URINE BY | | System - | | | | | SCREEN | | [facility] | | | | | METHOD | | | | | | + + + + + + + | | 2020-06-24 | [facility] | Negative | (missing) | (missing) | | BARBITURATES | 19:59 | Health | | | | | PRESENCE IN | | System - | | | | | URINE BY | | [facility] | | | | | SCREEN | | | | | | | METHOD | | | | | | + + + + + + + | METHADONE | 2020-06-24 | [facility] | Negative | (missing) | (missing) | | (PRESENCE) | 19:59 | Health | | | | | IN URINE BY | | System - | | | | | SCREEN | | [facility] | | | | | METHOD | | | | | | + + + + + + + | SARS-COV-2 | 2020-06-24 | [facility] | Negative | (missing) | (missing) | | (COVID19) | 19:59 | Health | | | | | CEPHEID | | System - | | | | | MOLECULAR | | [facility] | | | | + + + + + + + | BHCG QUAL | 2020-06-24 | [facility] | Negative | (missing) | (missing) | | (CHORIOGONAD | 19:59 | Health | | | | | OTROPIN) IN | | System - | | | | | SER/PLAS | | [facility] | | | | + + + + + + + | | 2020-06-24 | [facility] | Presumptive | (missing) | (missing) | | BENZODIAZEPI | 19:59 | Health | Positive | | | | SURYA | | System - | | | | | (PRESENCE) | | [facility] | | | | | IN URINE BY | | | | | | | SCREEN | | | | | | | METHOD | | | | | | + + + + + + + | | 2020-06-24 | [facility] | Presumptive | (missing) | (missing) | | METHAMPHETAM | 19:59 | Health | Positive | | | | INE | | System - | | | | | (PRESENCE) | | [facility] | | | | | IN URINE BY | | | | | | | SCREEN | | | | | | | METHOD | | | | | | + + + + + + + | AMPHETAMINE | 2020-06-24 | [facility] | Presumptive | (missing) | (missing) | | (PRESENCE) | 19:59 | Health | Positive | | | | IN URINE BY | | System - | | | | | SCREEN | | [facility] | | | | | METHOD | | | | | | + + + + + + + | | 2020-06-24 | [facility] | Presumptive | (missing) | (missing) | | METHAMPHETAM | 19:59 | Health | Positive | | | | INE | | System - | | | | | (PRESENCE) | | [facility] | | | | | IN URINE BY | | | | | | | SCREEN | | | | | | | METHOD | | | | | | + + + + + + + | | 2020-06-24 | [facility] | Presumptive | (missing) | (missing) | | BENZODIAZEPI | 19:59 | Health | Positive | | | | SURYA | | System - | | | | | (PRESENCE) | | [facility] | | | | | IN URINE BY | | | | | | | SCREEN | | | | | | | METHOD | | | | | | + + + + + + + | AMPHETAMINE | 2020-06-24 | [facility] | Presumptive | (missing) | (missing) | | (PRESENCE) | 19:59 | Health | Positive | | | | IN URINE BY | | System - | | | | | SCREEN | | [facility] | | | | | METHOD | | | | | | + + + + + + + + + | Result panel 7 | + + + + + + + + + | | 2020-07-11 | [facility] | (missing) | (missing) | (missing) | | (unavailable | 08:44 | Health | | | | | ) | | System - | | | | | | | [facility] | | | | + + + + + + + | EGFR | 2020-07-11 | [facility] | > | | (missing) | | (GLOMERULAR | 08:44 | Health | | ml/min/1.73m | | | FILTRATION | | System - | | ? | | | RATE) | | [facility] | | | | | ML/MIN/1.73 | | | | | | | SQ M. | | | | | | + + + + + + + | EGFR | 2020-07-11 | [facility] | > | | (missing) | | (GLOMERULAR | 08:44 | Health | | ml/min/1.73m | | | FILTRATION | | System - | | ? | | | RATE) | | [facility] | | | | | ML/MIN/1.73 | | | | | | | SQ M. | | | | | | + + + + + + + | NRBC/100 | 2020-07-11 | [facility] | 0.0 | % | (missing) | | WBCS BY | 08:44 | Health | | | | | AUTOMATED | | System - | | | | | COUNT | | [facility] | | | | + + + + + + + | NRBC/100 | 2020-07-11 | [facility] | 0.0 | % | (missing) | | WBCS BY | 08:44 | Health | | | | | AUTOMATED | | System - | | | | | COUNT | | [facility] | | | | + + + + + + + | | 2020-07-11 | [facility] | 0.0 | k/mcl | (missing) | | NRBC(10*3/UL | 08:44 | Health | | | | | ) IN BLOOD | | System - | | | | | BY AUTOMATED | | [facility] | | | | | COUNT | | | | | | + + + + + + + | | 2020-07-11 | [facility] | 0.0 | k/mcl | (missing) | | NRBC(10*3/UL | 08:44 | Health | | | | | ) IN BLOOD | | System - | | | | | BY AUTOMATED | | [facility] | | | | | COUNT | | | | | | + + + + + + + | IMMATURE | 2020-07-11 | [facility] | 0.08 | k/mcl | (missing) | | GRANULOCYTE | 08:44 | Health | | | | | (ABS) | | System - | | | | | | | [facility] | | | | + + + + + + + | IMMATURE | 2020-07-11 | [facility] | 0.08 | k/mcl | (missing) | | GRANULOCYTE | 08:44 | Health | | | | | (ABS) | | System - | | | | | | | [facility] | | | | + + + + + + + | BASOPHILS | 2020-07-11 | [facility] | 0.1 | k/mcl | (missing) | | (10*3/UL) IN | 08:44 | Health | | | | | BLOOD BY | | System - | | | | | AUTOMATED | | [facility] | | | | | COUNT | | | | | | + + + + + + + | BASOPHILS | 2020-07-11 | [facility] | 0.1 | k/mcl | (missing) | | (10*3/UL) IN | 08:44 | Health | | | | | BLOOD BY | | System - | | | | | AUTOMATED | | [facility] | | | | | COUNT | | | | | | + + + + + + + | EOSINOPHILS | 2020-07-11 | [facility] | 0.2 | k/mcl | (missing) | | (10*3/UL) | 08:44 | Health | | | | | IN BLOOD BY | | System - | | | | | AUTOMATED | | [facility] | | | | | COUNT | | | | | | + + + + + + + | EOSINOPHILS | 2020-07-11 | [facility] | 0.2 | k/mcl | (missing) | | (10*3/UL) | 08:44 | Health | | | | | IN BLOOD BY | | System - | | | | | AUTOMATED | | [facility] | | | | | COUNT | | | | | | + + + + + + + | BILIRUBIN | 2020-07-11 | [facility] | 0.2 | mg/dl | (missing) | | TOTAL | 08:44 | Health | | | | | (MG/DL) IN | | System - | | | | | SER/PLAS | | [facility] | | | | + + + + + + + | BILIRUBIN | 2020-07-11 | [facility] | 0.2 | mg/dl | (missing) | | TOTAL | 08:44 | Health | | | | | (MG/DL) IN | | System - | | | | | SER/PLAS | | [facility] | | | | + + + + + + + | | 2020-07-11 | [facility] | 0.2-1.0 | mg/dl | (missing) | | UROBILINOGEN | 08:44 | Health | | | | | (MG/DL) IN | | System - | | | | | URINE BY | | [facility] | | | | | TEST STRIP | | | | | | + + + + + + + | | 2020-07-11 | [facility] | 0.2-1.0 | mg/dl | (missing) | | UROBILINOGEN | 08:44 | Health | | | | | (MG/DL) IN | | System - | | | | | URINE BY | | [facility] | | | | | TEST STRIP | | | | | | + + + + + + + | | 2020-07-11 | [facility] | 0.7 | % | (missing) | | BASOPHILS/10 | 08:44 | Health | | | | | 0 LEUKOCYTES | | System - | | | | | IN BLOOD BY | | [facility] | | | | | AUTOMATED | | | | | | | COUNT | | | | | | + + + + + + + | | 2020-07-11 | [facility] | 0.7 | % | (missing) | | BASOPHILS/10 | 08:44 | Health | | | | | 0 LEUKOCYTES | | System - | | | | | IN BLOOD BY | | [facility] | | | | | AUTOMATED | | | | | | | COUNT | | | | | | + + + + + + + | MONOCYTES | 2020-07-11 | [facility] | 0.7 | k/mcl | (missing) | | (10*3/UL) IN | 08:44 | Health | | | | | BLOOD BY | | System - | | | | | AUTOMATED | | [facility] | | | | | COUNT | | | | | | + + + + + + + | MONOCYTES | 2020-07-11 | [facility] | 0.7 | k/mcl | (missing) | | (10*3/UL) IN | 08:44 | Health | | | | | BLOOD BY | | System - | | | | | AUTOMATED | | [facility] | | | | | COUNT | | | | | | + + + + + + + | CREATININE | 2020-07-11 | [facility] | 0.7 | mg/dl | (missing) | | (MG/DL) IN | 08:44 | Health | | | | | SER/PLAS | | System - | | | | | | | [facility] | | | | + + + + + + + | CREATININE | 2020-07-11 | [facility] | 0.7 | mg/dl | (missing) | | (MG/DL) IN | 08:44 | Health | | | | | SER/PLAS | | System - | | | | | | | [facility] | | | | + + + + + + + | IMMATURE | 2020-07-11 | [facility] | 0.8 | % | (missing) | | GRANULOCYTE | 08:44 | Health | | | | | % (AUTO) | | System - | | | | | | | [facility] | | | | + + + + + + + | IMMATURE | 2020-07-11 | [facility] | 0.8 | % | (missing) | | GRANULOCYTE | 08:44 | Health | | | | | % (AUTO) | | System - | | | | | | | [facility] | | | | + + + + + + + | PROTEIN IN | 2020-07-11 | [facility] | 1 | (missing) | (missing) | | URINE BY | 08:44 | Health | | | | | TEST STRIP | | System - | | | | | | | [facility] | | | | + + + + + + + | PROTEIN IN | 2020-07-11 | [facility] | 1 | (missing) | (missing) | | URINE BY | 08:44 | Health | | | | | TEST STRIP | | System - | | | | | | | [facility] | | | | + + + + + + + | BACTERIA | 2020-07-11 | [facility] | 1 | /hpf | (missing) | | (#/HPF) IN | 08:44 | Health | | | | | URINE | | System - | | | | | | | [facility] | | | | + + + + + + + | BACTERIA | 2020-07-11 | [facility] | 1 | /hpf | (missing) | | (#/HPF) IN | 08:44 | Health | | | | | URINE | | System - | | | | | | | [facility] | | | | + + + + + + + | SPECIFIC | 2020-07-11 | [facility] | 1.031 | (missing) | (missing) | | GRAVITY OF | 08:44 | Health | | | | | URINE BY | | System - | | | | | AUTOMATED | | [facility] | | | | | TEST STRIP | | | | | | + + + + + + + | SPECIFIC | 2020-07-11 | [facility] | 1.031 | (missing) | (missing) | | GRAVITY OF | 08:44 | Health | | | | | URINE BY | | System - | | | | | AUTOMATED | | [facility] | | | | | TEST STRIP | | | | | | + + + + + + + | | 2020-07-11 | [facility] | 1.60 | :1 | (missing) | | ALBUMIN/GLOB | 08:44 | Health | | | | | ULIN (A/G | | System - | | | | | RATIO) IN | | [facility] | | | | | SER/PLAS | | | | | | + + + + + + + | | 2020-07-11 | [facility] | 1.60 | :1 | (missing) | | ALBUMIN/GLOB | 08:44 | Health | | | | | ULIN (A/G | | System - | | | | | RATIO) IN | | [facility] | | | | | SER/PLAS | | | | | | + + + + + + + | SQUAMOUS | 2020-07-11 | [facility] | 10 | /hpf | (missing) | | EPITHELIAL | 08:44 | Health | | | | | CELLS | | System - | | | | | (#/HPF) IN | | [facility] | | | | | URINE | | | | | | | SEDIMENT | | | | | | + + + + + + + | SQUAMOUS | 2020-07-11 | [facility] | 10 | /hpf | (missing) | | EPITHELIAL | 08:44 | Health | | | | | CELLS | | System - | | | | | (#/HPF) IN | | [facility] | | | | | URINE | | | | | | | SEDIMENT | | | | | | + + + + + + + | ANION GAP | 2020-07-11 | [facility] | 10.0 | mmol/l | (missing) | | IN SER/PLAS | 08:44 | Health | | | | | | | System - | | | | | | | [facility] | | | | + + + + + + + | ANION GAP | 2020-07-11 | [facility] | 10.0 | mmol/l | (missing) | | IN SER/PLAS | 08:44 | Health | | | | | | | System - | | | | | | | [facility] | | | | + + + + + + + | | 2020-07-11 | [facility] | 10.4 | k/mcl | (missing) | | LEUKOCYTES(1 | 08:44 | Health | | | | | 0*3/UL) IN | | System - | | | | | BLOOD BY | | [facility] | | | | | AUTOMATED | | | | | | | COUNT | | | | | | + + + + + + + | | 2020-07-11 | [facility] | 10.4 | k/mcl | (missing) | | LEUKOCYTES(1 | 08:44 | Health | | | | | 0*3/UL) IN | | System - | | | | | BLOOD BY | | [facility] | | | | | AUTOMATED | | | | | | | COUNT | | | | | | + + + + + + + | CHLORIDE | 2020-07-11 | [facility] | 109 | mmol/l | (missing) | | (MMOL/L) IN | 08:44 | Health | | | | | SER/PLAS | | System - | | | | | | | [facility] | | | | + + + + + + + | CHLORIDE | 2020-07-11 | [facility] | 109 | mmol/l | (missing) | | (MMOL/L) IN | 08:44 | Health | | | | | SER/PLAS | | System - | | | | | | | [facility] | | | | + + + + + + + | ERYTHROCYTE | 2020-07-11 | [facility] | 12.4 | % | (missing) | | | 08:44 | Health | | | | | DISTRIBUTION | | System - | | | | | WIDTH | | [facility] | | | | | (RATIO) BY | | | | | | | AUTOMATED | | | | | | | COUNT | | | | | | + + + + + + + | ERYTHROCYTE | 2020-07-11 | [facility] | 12.4 | % | (missing) | | | 08:44 | Health | | | | | DISTRIBUTION | | System - | | | | | WIDTH | | [facility] | | | | | (RATIO) BY | | | | | | | AUTOMATED | | | | | | | COUNT | | | | | | + + + + + + + | BLOOD UREA | 2020-07-11 | [facility] | 14 | mg/dl | (missing) | | NITROGEN | 08:44 | Health | | | | | (BUN) | | System - | | | | | (MG/DL) IN | | [facility] | | | | | SER/PLAS | | | | | | + + + + + + + | BLOOD UREA | 2020-07-11 | [facility] | 14 | mg/dl | (missing) | | NITROGEN | 08:44 | Health | | | | | (BUN) | | System - | | | | | (MG/DL) IN | | [facility] | | | | | SER/PLAS | | | | | | + + + + + + + | HEMOGLOBIN | 2020-07-11 | [facility] | 14.8 | g/dl | (missing) | | (G/DL) IN | 08:44 | Health | | | | | BLOOD | | System - | | | | | | | [facility] | | | | + + + + + + + | HEMOGLOBIN | 2020-07-11 | [facility] | 14.8 | g/dl | (missing) | | (G/DL) IN | 08:44 | Health | | | | | BLOOD | | System - | | | | | | | [facility] | | | | + + + + + + + | SODIUM | 2020-07-11 | [facility] | 143 | mmol/l | (missing) | | (MMOL/L) IN | 08:44 | Health | | | | | SER/PLAS | | System - | | | | | | | [facility] | | | | + + + + + + + | SODIUM | 2020-07-11 | [facility] | 143 | mmol/l | (missing) | | (MMOL/L) IN | 08:44 | Health | | | | | SER/PLAS | | System - | | | | | | | [facility] | | | | + + + + + + + | ASPARTATE | 2020-07-11 | [facility] | 17 | u/l | (missing) | | AMINOTRANSFE | 08:44 | Health | | | | | RASE (SGOT) | | System - | | | | | (U/L) IN | | [facility] | | | | | SER/PLAS | | | | | | + + + + + + + | ASPARTATE | 2020-07-11 | [facility] | 17 | u/l | (missing) | | AMINOTRANSFE | 08:44 | Health | | | | | RASE (SGOT) | | System - | | | | | (U/L) IN | | [facility] | | | | | SER/PLAS | | | | | | + + + + + + + | HEMOGLOBIN | 2020-07-11 | [facility] | 2 | (missing) | (missing) | | PRESENCE IN | 08:44 | Health | | | | | URINE | | System - | | | | | | | [facility] | | | | + + + + + + + | HEMOGLOBIN | 2020-07-11 | [facility] | 2 | (missing) | (missing) | | PRESENCE IN | 08:44 | Health | | | | | URINE | | System - | | | | | | | [facility] | | | | + + + + + + + | WBC | 2020-07-11 | [facility] | 2 | /hpf | (missing) | | (LEUKOCYTE) | 08:44 | Health | | | | | (#/HPF) IN | | System - | | | | | URINE | | [facility] | | | | | SEDIMENT | | | | | | + + + + + + + | WBC | 2020-07-11 | [facility] | 2 | /hpf | (missing) | | (LEUKOCYTE) | 08:44 | Health | | | | | (#/HPF) IN | | System - | | | | | URINE | | [facility] | | | | | SEDIMENT | | | | | | + + + + + + + | | 2020-07-11 | [facility] | 2.3 | % | (missing) | | EOSINOPHILS/ | 08:44 | Health | | | | | 100 | | System - | | | | | LEUKOCYTES | | [facility] | | | | | IN BLOOD BY | | | | | | | AUTOMATED | | | | | | | COUNT | | | | | | + + + + + + + | | 2020-07-11 | [facility] | 2.3 | % | (missing) | | EOSINOPHILS/ | 08:44 | Health | | | | | 100 | | System - | | | | | LEUKOCYTES | | [facility] | | | | | IN BLOOD BY | | | | | | | AUTOMATED | | | | | | | COUNT | | | | | | + + + + + + + | GLOBULIN | 2020-07-11 | [facility] | 2.5 | g/dl | (missing) | | (G/DL) IN | 08:44 | Health | | | | | SER/PLAS | | System - | | | | | | | [facility] | | | | + + + + + + + | GLOBULIN | 2020-07-11 | [facility] | 2.5 | g/dl | (missing) | | (G/DL) IN | 08:44 | Health | | | | | SER/PLAS | | System - | | | | | | | [facility] | | | | + + + + + + + | ALANINE | 2020-07-11 | [facility] | 23 | u/l | (missing) | | AMINOTRANSFE | 08:44 | Health | | | | | RASE (SGPT) | | System - | | | | | (U/L) IN | | [facility] | | | | | SER/PLAS | | | | | | + + + + + + + | ALANINE | 2020-07-11 | [facility] | 23 | u/l | (missing) | | AMINOTRANSFE | 08:44 | Health | | | | | RASE (SGPT) | | System - | | | | | (U/L) IN | | [facility] | | | | | SER/PLAS | | | | | | + + + + + + + | CARBON | 2020-07-11 | [facility] | 24 | mmol/l | (missing) | | DIOXIDE | 08:44 | Health | | | | | (CO2), TOTAL | | System - | | | | | (MMOL/L) IN | | [facility] | | | | | SER/PLAS | | | | | | + + + + + + + | CARBON | 2020-07-11 | [facility] | 24 | mmol/l | (missing) | | DIOXIDE | 08:44 | Health | | | | | (CO2), TOTAL | | System - | | | | | (MMOL/L) IN | | [facility] | | | | | SER/PLAS | | | | | | + + + + + + + | LYMPHOCYTES | 2020-07-11 | [facility] | 3.2 | k/mcl | (missing) | | (10*3/UL) | 08:44 | Health | | | | | IN BLOOD BY | | System - | | | | | AUTOMATED | | [facility] | | | | | COUNT | | | | | | + + + + + + + | LYMPHOCYTES | 2020-07-11 | [facility] | 3.2 | k/mcl | (missing) | | (10*3/UL) | 08:44 | Health | | | | | IN BLOOD BY | | System - | | | | | AUTOMATED | | [facility] | | | | | COUNT | | | | | | + + + + + + + | POTASSIUM | 2020-07-11 | [facility] | 3.6 | mmol/l | (missing) | | (MMOL/L) IN | 08:44 | Health | | | | | SER/PLAS | | System - | | | | | | | [facility] | | | | + + + + + + + | POTASSIUM | 2020-07-11 | [facility] | 3.6 | mmol/l | (missing) | | (MMOL/L) IN | 08:44 | Health | | | | | SER/PLAS | | System - | | | | | | | [facility] | | | | + + + + + + + | ERYTHROCYTE | 2020-07-11 | [facility] | 30.8 | pg | (missing) | | MEAN | 08:44 | Health | | | | | CORPUSCULAR | | System - | | | | | HEMOGLOBIN | | [facility] | | | | | (PG) BY | | | | | | | AUTOMATED | | | | | | | COUNT | | | | | | + + + + + + + | ERYTHROCYTE | 2020-07-11 | [facility] | 30.8 | pg | (missing) | | MEAN | 08:44 | Health | | | | | CORPUSCULAR | | System - | | | | | HEMOGLOBIN | | [facility] | | | | | (PG) BY | | | | | | | AUTOMATED | | | | | | | COUNT | | | | | | + + + + + + + | | 2020-07-11 | [facility] | 31.0 | % | (missing) | | LYMPHOCYTES/ | 08:44 | Health | | | | | 100 | | System - | | | | | LEUKOCYTES | | [facility] | | | | | IN BLOOD BY | | | | | | | AUTOMATED | | | | | | | COUNT | | | | | | + + + + + + + | | 2020-07-11 | [facility] | 31.0 | % | (missing) | | LYMPHOCYTES/ | 08:44 | Health | | | | | 100 | | System - | | | | | LEUKOCYTES | | [facility] | | | | | IN BLOOD BY | | | | | | | AUTOMATED | | | | | | | COUNT | | | | | | + + + + + + + | PLATELETS | 2020-07-11 | [facility] | 322 | k/mcl | (missing) | | (10*3/UL) IN | 08:44 | Health | | | | | BLOOD | | System - | | | | | AUTOMATED | | [facility] | | | | | COUNT | | | | | | + + + + + + + | PLATELETS | 2020-07-11 | [facility] | 322 | k/mcl | (missing) | | (10*3/UL) IN | 08:44 | Health | | | | | BLOOD | | System - | | | | | AUTOMATED | | [facility] | | | | | COUNT | | | | | | + + + + + + + | ERYTHROCYTE | 2020-07-11 | [facility] | 33.5 | g/dl | (missing) | | MEAN | 08:44 | Health | | | | | CORPUSCULAR | | System - | | | | | HEMOGLOBIN | | [facility] | | | | | CONCENTRATIO | | | | | | | N (G/DL) BY | | | | | | | AUTOMATED | | | | | | + + + + + + + | ERYTHROCYTE | 2020-07-11 | [facility] | 33.5 | g/dl | (missing) | | MEAN | 08:44 | Health | | | | | CORPUSCULAR | | System - | | | | | HEMOGLOBIN | | [facility] | | | | | CONCENTRATIO | | | | | | | N (G/DL) BY | | | | | | | AUTOMATED | | | | | | + + + + + + + | RBC (#/HPF) | 2020-07-11 | [facility] | 4 | /hpf | (missing) | | IN URINE | 08:44 | Health | | | | | SEDIMENT | | System - | | | | | | | [facility] | | | | + + + + + + + | RBC (#/HPF) | 2020-07-11 | [facility] | 4 | /hpf | (missing) | | IN URINE | 08:44 | Health | | | | | SEDIMENT | | System - | | | | | | | [facility] | | | | + + + + + + + | ALBUMIN | 2020-07-11 | [facility] | 4.0 | g/dl | (missing) | | (G/DL) IN | 08:44 | Health | | | | | SER/PLAS | | System - | | | | | | | [facility] | | | | + + + + + + + | ALBUMIN | 2020-07-11 | [facility] | 4.0 | g/dl | (missing) | | (G/DL) IN | 08:44 | Health | | | | | SER/PLAS | | System - | | | | | | | [facility] | | | | + + + + + + + | | 2020-07-11 | [facility] | 4.81 | m/mcl | (missing) | | ERYTHROCYTES | 08:44 | Health | | | | | (10*6/UL) | | System - | | | | | IN BLOOD BY | | [facility] | | | | | AUTOMATED | | | | | | | COUNT | | | | | | + + + + + + + | | 2020-07-11 | [facility] | 4.81 | m/mcl | (missing) | | ERYTHROCYTES | 08:44 | Health | | | | | (10*6/UL) | | System - | | | | | IN BLOOD BY | | [facility] | | | | | AUTOMATED | | | | | | | COUNT | | | | | | + + + + + + + | HEMATOCRIT | 2020-07-11 | [facility] | 44.2 | % | (missing) | | (%) IN BLOOD | 08:44 | Health | | | | | BY | | System - | | | | | AUTOMATED | | [facility] | | | | | COUNT | | | | | | + + + + + + + | HEMATOCRIT | 2020-07-11 | [facility] | 44.2 | % | (missing) | | (%) IN BLOOD | 08:44 | Health | | | | | BY | | System - | | | | | AUTOMATED | | [facility] | | | | | COUNT | | | | | | + + + + + + + | PH OF URINE | 2020-07-11 | [facility] | 5.0 | (missing) | (missing) | | | 08:44 | Health | | | | | | | System - | | | | | | | [facility] | | | | + + + + + + + | PH OF URINE | 2020-07-11 | [facility] | 5.0 | (missing) | (missing) | | | 08:44 | Health | | | | | | | System - | | | | | | | [facility] | | | | + + + + + + + | | 2020-07-11 | [facility] | 58.8 | % | (missing) | | NEUTROPHILS/ | 08:44 | Health | | | | | 100 | | System - | | | | | LEUKOCYTES | | [facility] | | | | | IN BLOOD BY | | | | | | | AUTOMATED | | | | | | | COUNT | | | | | | + + + + + + + | | 2020-07-11 | [facility] | 58.8 | % | (missing) | | NEUTROPHILS/ | 08:44 | Health | | | | | 100 | | System - | | | | | LEUKOCYTES | | [facility] | | | | | IN BLOOD BY | | | | | | | AUTOMATED | | | | | | | COUNT | | | | | | + + + + + + + | NEUTROPHILS | 2020-07-11 | [facility] | 6.1 | k/mcl | (missing) | | (10*3/UL) | 08:44 | Health | | | | | IN BLOOD BY | | System - | | | | | AUTOMATED | | [facility] | | | | | COUNT | | | | | | + + + + + + + | NEUTROPHILS | 2020-07-11 | [facility] | 6.1 | k/mcl | (missing) | | (10*3/UL) | 08:44 | Health | | | | | IN BLOOD BY | | System - | | | | | AUTOMATED | | [facility] | | | | | COUNT | | | | | | + + + + + + + | | 2020-07-11 | [facility] | 6.4 | % | (missing) | | MONOCYTES/10 | 08:44 | Health | | | | | 0 LEUKOCYTES | | System - | | | | | IN BLOOD BY | | [facility] | | | | | AUTOMATED | | | | | | | COUNT | | | | | | + + + + + + + | | 2020-07-11 | [facility] | 6.4 | % | (missing) | | MONOCYTES/10 | 08:44 | Health | | | | | 0 LEUKOCYTES | | System - | | | | | IN BLOOD BY | | [facility] | | | | | AUTOMATED | | | | | | | COUNT | | | | | | + + + + + + + | PROTEIN | 2020-07-11 | [facility] | 6.5 | g/dl | (missing) | | (G/DL) IN | 08:44 | Health | | | | | SER/PLAS | | System - | | | | | | | [facility] | | | | + + + + + + + | PROTEIN | 2020-07-11 | [facility] | 6.5 | g/dl | (missing) | | (G/DL) IN | 08:44 | Health | | | | | SER/PLAS | | System - | | | | | | | [facility] | | | | + + + + + + + | ALKALINE | 2020-07-11 | [facility] | 69 | u/l | (missing) | | PHOSPHATASE | 08:44 | Health | | | | | (U/L) IN | | System - | | | | | SER/PLAS | | [facility] | | | | + + + + + + + | ALKALINE | 2020-07-11 | [facility] | 69 | u/l | (missing) | | PHOSPHATASE | 08:44 | Health | | | | | (U/L) IN | | System - | | | | | SER/PLAS | | [facility] | | | | + + + + + + + | CALCIUM | 2020-07-11 | [facility] | 8.7 | mg/dl | (missing) | | (MG/DL) IN | 08:44 | Health | | | | | SER/PLAS | | System - | | | | | | | [facility] | | | | + + + + + + + | CALCIUM | 2020-07-11 | [facility] | 8.7 | mg/dl | (missing) | | (MG/DL) IN | 08:44 | Health | | | | | SER/PLAS | | System - | | | | | | | [facility] | | | | + + + + + + + | GLUCOSE, | 2020-07-11 | [facility] | 89 | mg/dl | (missing) | | RANDOM | 08:44 | Health | | | | | (MG/DL) IN | | System - | | | | | SER/PLAS | | [facility] | | | | + + + + + + + | GLUCOSE, | 2020-07-11 | [facility] | 89 | mg/dl | (missing) | | RANDOM | 08:44 | Health | | | | | (MG/DL) IN | | System - | | | | | SER/PLAS | | [facility] | | | | + + + + + + + | PLATELET | 2020-07-11 | [facility] | 9.4 | fl | (missing) | | MEAN VOLUME | 08:44 | Health | | | | | (FL) IN | | System - | | | | | BLOOD BY | | [facility] | | | | | AUTOMATED | | | | | | | COUNT | | | | | | + + + + + + + | PLATELET | 2020-07-11 | [facility] | 9.4 | fl | (missing) | | MEAN VOLUME | 08:44 | Health | | | | | (FL) IN | | System - | | | | | BLOOD BY | | [facility] | | | | | AUTOMATED | | | | | | | COUNT | | | | | | + + + + + + + | ERYTHROCYTE | 2020-07-11 | [facility] | 91.9 | fl | (missing) | | MEAN | 08:44 | Health | | | | | CORPUSCULAR | | System - | | | | | VOLUME (FL) | | [facility] | | | | | BY AUTOMATED | | | | | | | COUNT | | | | | | + + + + + + + | ERYTHROCYTE | 2020-07-11 | [facility] | 91.9 | fl | (missing) | | MEAN | 08:44 | Health | | | | | CORPUSCULAR | | System - | | | | | VOLUME (FL) | | [facility] | | | | | BY AUTOMATED | | | | | | | COUNT | | | | | | + + + + + + + | | 2020-07-11 | [facility] | BONES: No | (missing) | (missing) | | (unavailable | 08:44 | Health | acute or | | | | ) | | System - | suspicious | | | | | | [facility] | bony | | | | | | | abnormality | | | | | | | detected | | | | | | | radiographic | | | | | | | ally. | | | + + + + + + + | | 2020-07-11 | [facility] | COMPARISON: | (missing) | (missing) | | (unavailable | 08:44 | Health | 12/31/2016 | | | | ) | | System - | | | | | | | [facility] | | | | + + + + + + + | | 2020-07-11 | [facility] | Electronical | (missing) | (missing) | | (unavailable | 08:44 | Health | ly signed | | | | ) | | System - | by: Pradeep | | | | | | [facility] | MD Nuria | | | | | | | on 07/11/2020 | | | | | | | 9:25 AM at | | | | | | | workstation | | | | | | | SEGMENT [id number] | | | + + + + + + + | | 2020-07-11 | [facility] | FINDINGS: | (missing) | (missing) | | (unavailable | 08:44 | Health | | | | | ) | | System - | | | | | | | [facility] | | | | + + + + + + + | | 2020-07-11 | [facility] | HEART: | (missing) | (missing) | | (unavailable | 08:44 | Health | Normal in | | | | ) | | System - | size and | | | | | | [facility] | appearance. | | | + + + + + + + | CLARITY OF | 2020-07-11 | [facility] | [place] | (missing) | (missing) | | URINE | 08:44 | Health | | | | | | | System - | | | | | | | [facility] | | | | + + + + + + + | CLARITY OF | 2020-07-11 | [facility] | [place] | (missing) | (missing) | | URINE | 08:44 | Health | | | | | | | System - | | | | | | | [facility] | | | | + + + + + + + | | 2020-07-11 | [facility] | | (missing) | (missing) | | (unavailable | 08:44 | Health | INDICATIONS: | | | | ) | | System - | cough fever | | | | | | [facility] | | | | + + + + + + + | | 2020-07-11 | [facility] | LUNGS: No | (missing) | (missing) | | (unavailable | 08:44 | Health | focal | | | | ) | | System - | consolidatio | | | | | | [facility] | n or | | | | | | | suspicious | | | | | | | lung nodule. | | | | | | | | | | + + + + + + + | | 2020-07-11 | [facility] | MEDIASTINUM: | (missing) | (missing) | | (unavailable | 08:44 | Health | Normal | | | | ) | | System - | mediastinal | | | | | | [facility] | contours | | | | | | | without | | | | | | | radiographic | | | | | | | evidence of | | | | | | | | | | | | | | lymphadenopa | | | | | | | thy. | | | + + + + + + + | ASA | 2020-07-11 | [facility] | Negative | (missing) | (missing) | | (ASCORBIC | 08:44 | Health | | | | | ACID) IN | | System - | | | | | URINE | | [facility] | | | | + + + + + + + | BILIRUBIN, | 2020-07-11 | [facility] | Negative | (missing) | (missing) | | TOTAL | 08:44 | Health | | | | | PRESENCE IN | | System - | | | | | URINE | | [facility] | | | | + + + + + + + | GLUCOSE IN | 2020-07-11 | [facility] | Negative | (missing) | (missing) | | URINE | 08:44 | Health | | | | | | | System - | | | | | | | [facility] | | | | + + + + + + + | LEUKOCYTE | 2020-07-11 | [facility] | Negative | (missing) | (missing) | | ESTERASE | 08:44 | Health | | | | | PRESENCE IN | | System - | | | | | URINE BY | | [facility] | | | | | TEST STRIP | | | | | | + + + + + + + | NITRITE | 2020-07-11 | [facility] | Negative | (missing) | (missing) | | PRESENCE IN | 08:44 | Health | | | | | URINE | | System - | | | | | | | [facility] | | | | + + + + + + + | ASA | 2020-07-11 | [facility] | Negative | (missing) | (missing) | | (ASCORBIC | 08:44 | Health | | | | | ACID) IN | | System - | | | | | URINE | | [facility] | | | | + + + + + + + | BILIRUBIN, | 2020-07-11 | [facility] | Negative | (missing) | (missing) | | TOTAL | 08:44 | Health | | | | | PRESENCE IN | | System - | | | | | URINE | | [facility] | | | | + + + + + + + | BHCG QUAL | 2020-07-11 | [facility] | Negative | (missing) | (missing) | | (CHORIOGONAD | 08:44 | Health | | | | | OTROPIN) IN | | System - | | | | | SER/PLAS | | [facility] | | | | + + + + + + + | GLUCOSE IN | 2020-07-11 | [facility] | Negative | (missing) | (missing) | | URINE | 08:44 | Health | | | | | | | System - | | | | | | | [facility] | | | | + + + + + + + | NITRITE | 2020-07-11 | [facility] | Negative | (missing) | (missing) | | PRESENCE IN | 08:44 | Health | | | | | URINE | | System - | | | | | | | [facility] | | | | + + + + + + + | LEUKOCYTE | 2020-07-11 | [facility] | Negative | (missing) | (missing) | | ESTERASE | 08:44 | Health | | | | | PRESENCE IN | | System - | | | | | URINE BY | | [facility] | | | | | TEST STRIP | | | | | | + + + + + + + | [facility]CG QUAL | 2020-07-11 | [facility] | Negative | (missing) | (missing) | | (CHORIOGONAD | 08:44 | Health | | | | | OTROPIN) IN | | System - | | | | | SER/PLAS | | [facility] | | | | + + + + + + + | | 2020-07-11 | [facility] | No | (missing) | (missing) | | (unavailable | 08:44 | Health | radiographic | | | | ) | | System - | evidence of | | | | | | [facility] | acute | | | | | | | cardiopulmon | | | | | | | cezar disease. | | | | | | | | | | + + + + + + + | | 2020-07-11 | [facility] | PLEURAL | (missing) | (missing) | | (unavailable | 08:44 | Health | SPACES: No | | | | ) | | System - | pleural | | | | | | [facility] | effusion or | | | | | | | pneumothorax | | | | | | | . | | | + + + + + + + | | 2020-07-11 | [facility] | PROCEDURE: | (missing) | (missing) | | (unavailable | 08:44 | Health | CHEST - ONE | | | | ) | | System - | VIEW | | | | | | [facility] | | | | + + + + + + + | | 2020-07-11 | [facility] | | (missing) | (missing) | | (unavailable | 08:44 | Health | Procedure(s) | | | | ) | | System - | : * No | | | | | | [facility] | procedures | | | | | | | listed * | | | + + + + + + + | KETONES IN | 2020-07-11 | [facility] | Trace | (missing) | (missing) | | URINE | 08:44 | Health | | | | | | | System - | | | | | | | [facility] | | | | + + + + + + + | MUCUS | 2020-07-11 | [facility] | Trace | (missing) | (missing) | | (#/HPF) IN | 08:44 | Health | | | | | URINE | | System - | | | | | SEDIMENT | | [facility] | | | | + + + + + + + | MUCUS | 2020-07-11 | [facility] | Trace | (missing) | (missing) | | (#/HPF) IN | 08:44 | Health | | | | | URINE | | System - | | | | | SEDIMENT | | [facility] | | | | + + + + + + + | KETONES IN | 2020-07-11 | [facility] | Trace | (missing) | (missing) | | URINE | 08:44 | Health | | | | | | | System - | | | | | | | [facility] | | | | + + + + + + + | AMORPHOUS | 2020-07-11 | [facility] | Trace | /hpf | (missing) | | CRYSTALS | 08:44 | Health | | | | | (#/HPF) IN | | System - | | | | | URINE | | [facility] | | | | + + + + + + + | AMORPHOUS | 2020-07-11 | [facility] | Trace | /hpf | (missing) | | CRYSTALS | 08:44 | Health | | | | | (#/HPF) IN | | System - | | | | | URINE | | [facility] | | | | + + + + + + + | COLOR OF | 2020-07-11 | [facility] | Yellow | (missing) | (missing) | | URINE | 08:44 | Health | | | | | | | System - | | | | | | | [facility] | | | | + + + + + + + | COLOR OF | 2020-07-11 | [facility] | Yellow | (missing) | (missing) | | URINE | 08:44 | Health | | | | | | | System - | | | | | | | [facility] | | | | + + + + + + + + + | Result panel 8 | + + + + + + + + + | ADENOVIRUS | 2020-07-11 | [facility] | Not | (missing) | (missing) | | DETECTION BY | 08:45 | Health | Detected | | | | PCR | | System - | | | | | | | [facility] | | | | + + + + + + + | BORDETELLA | 2020-07-11 | [facility] | Not | (missing) | (missing) | | PARAPERTUSSI | 08:45 | Health | Detected | | | | S | | System - | | | | | | | [facility] | | | | + + + + + + + | BORDETELLA | 2020-07-11 | [facility] | Not | (missing) | (missing) | | PERTUSSIS | 08:45 | Health | Detected | | | | | | System - | | | | | | | [facility] | | | | + + + + + + + | | 2020-07-11 | [facility] | Not | (missing) | (missing) | | CHLAMYDOPHIL | 08:45 | Health | Detected | | | | A PNEUMONIAE | | System - | | | | | | | [facility] | | | | + + + + + + + | CORONAVIRUS | 2020-07-11 | [facility] | Not | (missing) | (missing) | | 229E | 08:45 | Health | Detected | | | | | | System - | | | | | | | [facility] | | | | + + + + + + + | CORONAVIRUS | 2020-07-11 | [facility] | Not | (missing) | (missing) | | HKU1 | 08:45 | Health | Detected | | | | | | System - | | | | | | | [facility] | | | | + + + + + + + | CORONAVIRUS | 2020-07-11 | [facility] | Not | (missing) | (missing) | | NL63 | 08:45 | Health | Detected | | | | | | System - | | | | | | | [facility] | | | | + + + + + + + | CORONAVIRUS | 2020-07-11 | [facility] | Not | (missing) | (missing) | | OC43 | 08:45 | Health | Detected | | | | | | System - | | | | | | | [facility] | | | | + + + + + + + | INFLUENZA A | 2020-07-11 | [facility] | Not | (missing) | (missing) | | | 08:45 | Health | Detected | | | | | | System - | | | | | | | [facility] | | | | + + + + + + + | INFLUENZA B | 2020-07-11 | [facility] | Not | (missing) | (missing) | | | 08:45 | Health | Detected | | | | | | System - | | | | | | | [facility] | | | | + + + + + + + | | 2020-07-11 | [facility] | Not | (missing) | (missing) | | METAPNEUMOVI | 08:45 | Health | Detected | | | | KELVIN | | System - | | | | | | | [facility] | | | | + + + + + + + | MYCOPLASMA | 2020-07-11 | [facility] | Not | (missing) | (missing) | | PNEUMONIAE | 08:45 | Health | Detected | | | | PCR | | System - | | | | | | | [facility] | | | | + + + + + + + | | 2020-07-11 | [facility] | Not | (missing) | (missing) | | PARAINFLUENZ | 08:45 | Health | Detected | | | | A 1 | | System - | | | | | | | [facility] | | | | + + + + + + + | | 2020-07-11 | [facility] | Not | (missing) | (missing) | | PARAINFLUENZ | 08:45 | Health | Detected | | | | A 2 | | System - | | | | | | | [facility] | | | | + + + + + + + | | 2020-07-11 | [facility] | Not | (missing) | (missing) | | PARAINFLUENZ | 08:45 | Health | Detected | | | | A 3 | | System - | | | | | | | [facility] | | | | + + + + + + + | | 2020-07-11 | [facility] | Not | (missing) | (missing) | | PARAINFLUENZ | 08:45 | Health | Detected | | | | A 4 | | System - | | | | | | | [facility] | | | | + + + + + + + | | 2020-07-11 | [facility] | Not | (missing) | (missing) | | RHINOVIRUS/E | 08:45 | Health | Detected | | | | NTEROVIRUS | | System - | | | | | | | [facility] | | | | + + + + + + + | RSV | 2020-07-11 | [facility] | Not | (missing) | (missing) | | | 08:45 | Health | Detected | | | | | | System - | | | | | | | [facility] | | | | + + + + + + + | SARS-COV-2 | 2020-07-11 | [facility] | Not | (missing) | (missing) | | (COVID19) | 08:45 | Health | Detected | | | | BIOFIRE | | System - | | | | | MOLECULAR | | [facility] | | | | + + + + + + + | BORDETELLA | 2020-07-11 | [facility] | Not | (missing) | (missing) | | PERTUSSIS | 08:45 | Health | Detected | | | | | | System - | | | | | | | [facility] | | | | + + + + + + + | MYCOPLASMA | 2020-07-11 | [facility] | Not | (missing) | (missing) | | PNEUMONIAE | 08:45 | Health | Detected | | | | PCR | | System - | | | | | | | [facility] | | | | + + + + + + + | | 2020-07-11 | [facility] | Not | (missing) | (missing) | | PARAINFLUENZ | 08:45 | Health | Detected | | | | A 1 | | System - | | | | | | | [facility] | | | | + + + + + + + | | 2020-07-11 | [facility] | Not | (missing) | (missing) | | PARAINFLUENZ | 08:45 | Health | Detected | | | | A 2 | | System - | | | | | | | [facility] | | | | + + + + + + + | | 2020-07-11 | [facility] | Not | (missing) | (missing) | | CHLAMYDOPHIL | 08:45 | Health | Detected | | | | A PNEUMONIAE | | System - | | | | | | | [facility] | | | | + + + + + + + | | 2020-07-11 | [facility] | Not | (missing) | (missing) | | METAPNEUMOVI | 08:45 | Health | Detected | | | | KELVIN | | System - | | | | | | | [facility] | | | | + + + + + + + | ADENOVIRUS | 2020-07-11 | [facility] | Not | (missing) | (missing) | | DETECTION BY | 08:45 | Health | Detected | | | | PCR | | System - | | | | | | | [facility] | | | | + + + + + + + | INFLUENZA B | 2020-07-11 | [facility] | Not | (missing) | (missing) | | | 08:45 | Health | Detected | | | | | | System - | | | | | | | [facility] | | | | + + + + + + + | RSV | 2020-07-11 | [facility] | Not | (missing) | (missing) | | | 08:45 | Health | Detected | | | | | | System - | | | | | | | [facility] | | | | + + + + + + + | | 2020-07-11 | [facility] | Not | (missing) | (missing) | | RHINOVIRUS/E | 08:45 | Health | Detected | | | | NTEROVIRUS | | System - | | | | | | | [facility] | | | | + + + + + + + | CORONAVIRUS | 2020-07-11 | [facility] | Not | (missing) | (missing) | | 229E | 08:45 | Health | Detected | | | | | | System - | | | | | | | [facility] | | | | + + + + + + + | CORONAVIRUS | 2020-07-11 | [facility] | Not | (missing) | (missing) | | NL63 | 08:45 | Health | Detected | | | | | | System - | | | | | | | [facility] | | | | + + + + + + + | CORONAVIRUS | 2020-07-11 | [facility] | Not | (missing) | (missing) | | OC43 | 08:45 | Health | Detected | | | | | | System - | | | | | | | [facility] | | | | + + + + + + + | | 2020-07-11 | [facility] | Not | (missing) | (missing) | | PARAINFLUENZ | 08:45 | Health | Detected | | | | A 4 | | System - | | | | | | | [facility] | | | | + + + + + + + | | 2020-07-11 | [facility] | Not | (missing) | (missing) | | PARAINFLUENZ | 08:45 | Health | Detected | | | | A 3 | | System - | | | | | | | [facility] | | | | + + + + + + + | CORONAVIRUS | 2020-07-11 | [facility] | Not | (missing) | (missing) | | HKU1 | 08:45 | Health | Detected | | | | | | System - | | | | | | | [facility] | | | | + + + + + + + | BORDETELLA | 2020-07-11 | [facility] | Not | (missing) | (missing) | | PARAPERTUSSI | 08:45 | Health | Detected | | | | S | | System - | | | | | | | [facility] | | | | + + + + + + + | SARS-COV-2 | 2020-07-11 | [facility] | Not | (missing) | (missing) | | (COVID19) | 08:45 | Health | Detected | | | | BIOFIRE | | System - | | | | | MOLECULAR | | [facility] | | | | + + + + + + + + + | Result panel 9 | + + + + + + + + + | | 2020-07-11 | [facility] | Negative | (missing) | (missing) | | BARBITURATES | 08:51 | Health | | | | | PRESENCE IN | | System - | | | | | URINE BY | | [facility] | | | | | SCREEN | | | | | | | METHOD | | | | | | + + + + + + + | | 2020-07-11 | [facility] | Negative | (missing) | (missing) | | BENZODIAZEPI | 08:51 | Health | | | | | SURYA | | System - | | | | | (PRESENCE) | | [facility] | | | | | IN URINE BY | | | | | | | SCREEN | | | | | | | METHOD | | | | | | + + + + + + + | COCAINE | 2020-07-11 | [facility] | Negative | (missing) | (missing) | | (PRESENCE) | 08:51 | Health | | | | | IN URINE BY | | System - | | | | | SCREEN | | [facility] | | | | | METHOD | | | | | | + + + + + + + | METHADONE | 2020-07-11 | [facility] | Negative | (missing) | (missing) | | (PRESENCE) | 08:51 | Health | | | | | IN URINE BY | | System - | | | | | SCREEN | | [facility] | | | | | METHOD | | | | | | + + + + + + + | OPIATES | 2020-07-11 | [facility] | Negative | (missing) | (missing) | | (PRESENCE) | 08:51 | Health | | | | | IN URINE BY | | System - | | | | | SCREEN | | [facility] | | | | | METHOD | | | | | | + + + + + + + | OXYCODONE | 2020-07-11 | [facility] | Negative | (missing) | (missing) | | (PRESENCE) | 08:51 | Health | | | | | IN URINE BY | | System - | | | | | SCREEN | | [facility] | | | | | METHOD | | | | | | + + + + + + + | | 2020-07-11 | [facility] | Negative | (missing) | (missing) | | PHENCYCLIDIN | 08:51 | Health | | | | | E (PRESENCE) | | System - | | | | | IN URINE BY | | [facility] | | | | | SCREEN | | | | | | | METHOD | | | | | | + + + + + + + | TRICYCLIC | 2020-07-11 | [facility] | Negative | (missing) | (missing) | | ANTIDEPRESSA | 08:51 | Health | | | | | NTS | | System - | | | | | (PRESENCE) | | [facility] | | | | | IN URINE | | | | | | + + + + + + + | | 2020-07-11 | [facility] | Negative | (missing) | (missing) | | PHENCYCLIDIN | 08:51 | Health | | | | | E (PRESENCE) | | System - | | | | | IN URINE BY | | [facility] | | | | | SCREEN | | | | | | | METHOD | | | | | | + + + + + + + | OPIATES | 2020-07-11 | [facility] | Negative | (missing) | (missing) | | (PRESENCE) | 08:51 | Health | | | | | IN URINE BY | | System - | | | | | SCREEN | | [facility] | | | | | METHOD | | | | | | + + + + + + + | TRICYCLIC | 2020-07-11 | [facility] | Negative | (missing) | (missing) | | ANTIDEPRESSA | 08:51 | Health | | | | | NTS | | System - | | | | | (PRESENCE) | | [facility] | | | | | IN URINE | | | | | | + + + + + + + | AMPHETAMINE | 2020-07-11 | [facility] | Negative | (missing) | (missing) | | (PRESENCE) | 08:51 | Health | | | | | IN URINE BY | | System - | | | | | SCREEN | | [facility] | | | | | METHOD | | | | | | + + + + + + + | OXYCODONE | 2020-07-11 | [facility] | Negative | (missing) | (missing) | | ([facility]) | 08:51 | Health | | | | | IN URINE BY | | System - | | | | | SCREEN | | [facility] | | | | | METHOD | | | | | | + + + + + + + | COCAINE | 2020-07-11 | [facility] | Negative | (missing) | (missing) | | (PRESENCE) | 08:51 | Health | | | | | IN URINE BY | | System - | | | | | SCREEN | | [facility] | | | | | METHOD | | | | | | + + + + + + + | | 2020-07-11 | [facility] | Negative | (missing) | (missing) | | BARBITURATES | 08:51 | Health | | | | | PRESENCE IN | | System - | | | | | URINE BY | | [facility] | | | | | SCREEN | | | | | | | METHOD | | | | | | + + + + + + + | | 2020-07-11 | [facility] | Negative | (missing) | (missing) | | BENZODIAZEPI | 08:51 | Health | | | | | SURYA | | System - | | | | | (PRESENCE) | | [facility] | | | | | IN URINE BY | | | | | | | SCREEN | | | | | | | METHOD | | | | | | + + + + + + + | METHADONE | 2020-07-11 | [facility] | Negative | (missing) | (missing) | | ([facility]) | 08:51 | Health | | | | | IN URINE BY | | System - | | | | | SCREEN | | [facility] | | | | | METHOD | | | | | | + + + + + + + | AMPHETAMINE | 2020-07-11 | [facility] | Negative | (missing) | (missing) | | ([facility]) | 08:51 | Health | | | | | IN URINE BY | | System - | | | | | SCREEN | | [facility] | | | | | METHOD | | | | | | + + + + + + + | | 2020-07-11 | [facility] | Presumptive | (missing) | (missing) | | METHAMPHETAM | 08:51 | Health | Positive | | | | INE | | System - | | | | | ([facility]) | | [facility] | | | | | IN URINE BY | | | | | | | SCREEN | | | | | | | METHOD | | | | | | + + + + + + + | THC | 2020-07-11 | [facility] | Presumptive | (missing) | (missing) | | (CANNABINOID | 08:51 | Health | Positive | | | | ) IN URINE | | System - | | | | | BY SCREEN | | [facility] | | | | | METHOD | | | | | | + + + + + + + | THC | 2020-07-11 | [facility] | Presumptive | (missing) | (missing) | | (CANNABINOID | 08:51 | Health | Positive | | | | ) IN URINE | | System - | | | | | BY SCREEN | | [facility] | | | | | METHOD | | | | | | + + + + + + + | | 2020-07-11 | [facility] | Presumptive | (missing) | (missing) | | METHAMPHETAM | 08:51 | Health | Positive | | | | INE | | System - | | | | | ([facility]) | | [facility] | | | | | IN URINE BY | | | | | | | SCREEN | | | | | | | METHOD | | | | | | + + + + + + + + + | Result panel 10 | + + + + + + + + + | WBC | 2020-11-07 | [facility] | < | /hpf | (missing) | | (LEUKOCYTE) | 15:52 | Health | | | | | (#/HPF) IN | | System - | | | | | URINE | | [facility] | | | | | SEDIMENT | | | | | | + + + + + + + | WBC | 2020-11-07 | [facility] | < | /hpf | (missing) | | (LEUKOCYTE) | 15:52 | Health | | | | | (#/HPF) IN | | System - | | | | | URINE | | [facility] | | | | | SEDIMENT | | | | | | + + + + + + + | | 2020-11-07 | [facility] | 0.2-1.0 | mg/dl | (missing) | | UROBILINOGEN | 15:52 | Health | | | | | (MG/DL) IN | | System - | | | | | URINE BY | | [facility] | | | | | TEST STRIP | | | | | | + + + + + + + | | 2020-11-07 | [facility] | 0.2-1.0 | mg/dl | (missing) | | UROBILINOGEN | 15:52 | Health | | | | | (MG/DL) IN | | System - | | | | | URINE BY | | [facility] | | | | | TEST STRIP | | | | | | + + + + + + + | SPECIFIC | 2020-11-07 | [facility] | 1.025 | (missing) | (missing) | | GRAVITY OF | 15:52 | Health | | | | | URINE BY | | System - | | | | | AUTOMATED | | [facility] | | | | | TEST STRIP | | | | | | + + + + + + + | SPECIFIC | 2020-11-07 | [facility] | 1.025 | (missing) | (missing) | | GRAVITY OF | 15:52 | Health | | | | | URINE BY | | System - | | | | | AUTOMATED | | [facility] | | | | | TEST STRIP | | | | | | + + + + + + + | HEMOGLOBIN | 2020-11-07 | [facility] | 2 | (missing) | (missing) | | [facility] IN | 15:52 | Health | | | | | URINE | | System - | | | | | | | [facility] | | | | + + + + + + + | HEMOGLOBIN | 2020-11-07 | [facility] | 2 | (missing) | (missing) | | [facility] IN | 15:52 | Health | | | | | URINE | | System - | | | | | | | [facility] | | | | + + + + + + + | RBC (#/HPF) | 2020-11-07 | [facility] | 5 | /hpf | (missing) | | IN URINE | 15:52 | Health | | | | | SEDIMENT | | System - | | | | | | | [facility] | | | | + + + + + + + | RBC (#/HPF) | 2020-11-07 | [facility] | 5 | /hpf | (missing) | | IN URINE | 15:52 | Health | | | | | SEDIMENT | | System - | | | | | | | [facility] | | | | + + + + + + + | PH OF URINE | 2020-11-07 | [facility] | 5.0 | (missing) | (missing) | | | 15:52 | Health | | | | | | | System - | | | | | | | [facility] | | | | + + + + + + + | PH OF URINE | 2020-11-07 | [facility] | 5.0 | (missing) | (missing) | | | 15:52 | Health | | | | | | | System - | | | | | | | [facility] | | | | + + + + + + + | SQUAMOUS | 2020-11-07 | [facility] | 8 | /hpf | (missing) | | EPITHELIAL | 15:52 | Health | | | | | CELLS | | System - | | | | | (#/HPF) IN | | [facility] | | | | | URINE | | | | | | | SEDIMENT | | | | | | + + + + + + + | SQUAMOUS | 2020-11-07 | [facility] | 8 | /hpf | (missing) | | EPITHELIAL | 15:52 | Health | | | | | CELLS | | System - | | | | | (#/HPF) IN | | [facility] | | | | | URINE | | | | | | | SEDIMENT | | | | | | + + + + + + + | CLARITY OF | 2020-11-07 | [facility] | Darryl | (missing) | (missing) | | URINE | 15:52 | Health | | | | | | | System - | | | | | | | [facility] | | | | + + + + + + + | CLARITY OF | 2020-11-07 | [facility] | Hazy | (missing) | (missing) | | URINE | 15:52 | Health | | | | | | | System - | | | | | | | [facility] | | | | + + + + + + + | ASA | 2020-11-07 | [facility] | Negative | (missing) | (missing) | | (ASCORBIC | 15:52 | Health | | | | | ACID) IN | | System - | | | | | URINE | | [facility] | | | | + + + + + + + | BILIRUBIN, | 2020-11-07 | [facility] | Negative | (missing) | (missing) | | TOTAL | 15:52 | Health | | | | | [facility] IN | | System - | | | | | URINE | | [facility] | | | | + + + + + + + | GLUCOSE IN | 2020-11-07 | [facility] | Negative | (missing) | (missing) | | URINE | 15:52 | Health | | | | | | | System - | | | | | | | [facility] | | | | + + + + + + + | KETONES IN | 2020-11-07 | [facility] | Negative | (missing) | (missing) | | URINE | 15:52 | Health | | | | | | | System - | | | | | | | [facility] | | | | + + + + + + + | LEUKOCYTE | 2020-11-07 | [facility] | Negative | (missing) | (missing) | | ESTERASE | 15:52 | Health | | | | | [facility] IN | | System - | | | | | URINE BY | | [facility] | | | | | TEST STRIP | | | | | | + + + + + + + | NITRITE | 2020-11-07 | [facility] | Negative | (missing) | (missing) | | [facility] IN | 15:52 | Health | | | | | URINE | | System - | | | | | | | [facility] | | | | + + + + + + + | PROTEIN IN | 2020-11-07 | [facility] | Negative | (missing) | (missing) | | URINE BY | 15:52 | Health | | | | | TEST STRIP | | System - | | | | | | | [facility] | | | | + + + + + + + | ASA | 2020-11-07 | [facility] | Negative | (missing) | (missing) | | (ASCORBIC | 15:52 | Health | | | | | ACID) IN | | System - | | | | | URINE | | [facility] | | | | + + + + + + + | BILIRUBIN, | 2020-11-07 | [facility] | Negative | (missing) | (missing) | | TOTAL | 15:52 | Health | | | | | [facility] IN | | System - | | | | | URINE | | [facility] | | | | + + + + + + + | GLUCOSE IN | 2020-11-07 | [facility] | Negative | (missing) | (missing) | | URINE | 15:52 | Health | | | | | | | System - | | | | | | | [facility] | | | | + + + + + + + | NITRITE | 2020-11-07 | [facility] | Negative | (missing) | (missing) | | [facility] IN | 15:52 | Health | | | | | URINE | | System - | | | | | | | [facility] | | | | + + + + + + + | KETONES IN | 2020-11-07 | [facility] | Negative | (missing) | (missing) | | URINE | 15:52 | Health | | | | | | | System - | | | | | | | [facility] | | | | + + + + + + + | PROTEIN IN | 2020-11-07 | [facility] | Negative | (missing) | (missing) | | URINE BY | 15:52 | Health | | | | | TEST STRIP | | System - | | | | | | | [facility] | | | | + + + + + + + | LEUKOCYTE | 2020-11-07 | [facility] | Negative | (missing) | (missing) | | ESTERASE | 15:52 | Health | | | | | [facility] IN | | System - | | | | | URINE BY | | [facility] | | | | | TEST STRIP | | | | | | + + + + + + + | MUCUS | 2020-11-07 | [facility] | Trace | (missing) | (missing) | | (#/HPF) IN | 15:52 | Health | | | | | URINE | | System - | | | | | SEDIMENT | | [facility] | | | | + + + + + + + | MUCUS | 2020-11-07 | [facility] | Trace | (missing) | (missing) | | (#/HPF) IN | 15:52 | Health | | | | | URINE | | System - | | | | | SEDIMENT | | [facility] | | | | + + + + + + + | BACTERIA | 2020-11-07 | [facility] | Trace | /hpf | (missing) | | (#/HPF) IN | 15:52 | Health | | | | | URINE | | System - | | | | | | | [facility] | | | | + + + + + + + | BACTERIA | 2020-11-07 | [facility] | Trace | /hpf | (missing) | | (#/HPF) IN | 15:52 | Health | | | | | URINE | | System - | | | | | | | [facility] | | | | + + + + + + + | COLOR OF | 2020-11-07 | [facility] | Yellow | (missing) | (missing) | | URINE | 15:52 | Health | | | | | | | System - | | | | | | | [facility] | | | | + + + + + + + | COLOR OF | 2020-11-07 | [facility] | Yellow | (missing) | (missing) | | URINE | 15:52 | Health | | | | | | | System - | | | | | | | [facility] | | | | + + + + + + + + + | Result panel 11 | + + + + + + + + + | EGFR | 2020-11-07 | [facility] | > | | (missing) | | (GLOMERULAR | 15:53 | Health | | ml/min/1.73m | | | FILTRATION | | System - | | ? | | | RATE) | | [facility] | | | | | ML/MIN/1.73 | | | | | | | SQ M. | | | | | | + + + + + + + | EGFR | 2020-11-07 | [facility] | > | | (missing) | | (GLOMERULAR | 15:53 | Health | | ml/min/1.73m | | | FILTRATION | | System - | | ? | | | RATE) | | [facility] | | | | | ML/MIN/1.73 | | | | | | | SQ M. | | | | | | + + + + + + + | ALCOHOL | 2020-11-07 | [facility] | < | g/dl | (missing) | | (G/DL) IN | 15:53 | Health | | | | | SER/PLAS | | System - | | | | | | | [facility] | | | | + + + + + + + | ALCOHOL | 2020-11-07 | [facility] | < | g/dl | (missing) | | (G/DL) IN | 15:53 | Health | | | | | SER/PLAS | | System - | | | | | | | [facility] | | | | + + + + + + + | | 2020-11-07 | [facility] | < | mcg/ml | (missing) | | ACETAMINOPHE | 15:53 | Health | | | | | N (UG/ML) IN | | System - | | | | | SER/PLAS | | [facility] | | | | + + + + + + + | | 2020-11-07 | [facility] | < | mcg/ml | (missing) | | ACETAMINOPHE | 15:53 | Health | | | | | N (UG/ML) IN | | System - | | | | | SER/PLAS | | [facility] | | | | + + + + + + + | SALICYLATE | 2020-11-07 | [facility] | < | mg/dl | (missing) | | (MG/DL) IN | 15:53 | Health | | | | | SER/PLAS | | System - | | | | | | | [facility] | | | | + + + + + + + | SALICYLATE | 2020-11-07 | [facility] | < | mg/dl | (missing) | | (MG/DL) IN | 15:53 | Health | | | | | SER/PLAS | | System - | | | | | | | [facility] | | | | + + + + + + + | NRBC/100 | 2020-11-07 | [facility] | 0.0 | % | (missing) | | WBCS BY | 15:53 | Health | | | | | AUTOMATED | | System - | | | | | COUNT | | [facility] | | | | + + + + + + + | NRBC/100 | 2020-11-07 | [facility] | 0.0 | % | (missing) | | WBCS BY | 15:53 | Health | | | | | AUTOMATED | | System - | | | | | COUNT | | [facility] | | | | + + + + + + + | | 2020-11-07 | [facility] | 0.0 | k/mcl | (missing) | | NRBC(10*3/UL | 15:53 | Health | | | | | ) IN BLOOD | | System - | | | | | BY AUTOMATED | | [facility] | | | | | COUNT | | | | | | + + + + + + + | | 2020-11-07 | [facility] | 0.0 | k/mcl | (missing) | | NRBC(10*3/UL | 15:53 | Health | | | | | ) IN BLOOD | | System - | | | | | BY AUTOMATED | | [facility] | | | | | COUNT | | | | | | + + + + + + + | IMMATURE | 2020-11-07 | [facility] | 0.05 | k/mcl | (missing) | | GRANULOCYTE | 15:53 | Health | | | | | (ABS) | | System - | | | | | | | [facility] | | | | + + + + + + + | IMMATURE | 2020-11-07 | [facility] | 0.05 | k/mcl | (missing) | | GRANULOCYTE | 15:53 | Health | | | | | (ABS) | | System - | | | | | | | [facility] | | | | + + + + + + + | BASOPHILS | 2020-11-07 | [facility] | 0.1 | k/mcl | (missing) | | (10*3/UL) IN | 15:53 | Health | | | | | BLOOD BY | | System - | | | | | AUTOMATED | | [facility] | | | | | COUNT | | | | | | + + + + + + + | BASOPHILS | 2020-11-07 | [facility] | 0.1 | k/mcl | (missing) | | (10*3/UL) IN | 15:53 | Health | | | | | BLOOD BY | | System - | | | | | AUTOMATED | | [facility] | | | | | COUNT | | | | | | + + + + + + + | BILIRUBIN | 2020-11-07 | [facility] | 0.2 | mg/dl | (missing) | | TOTAL | 15:53 | Health | | | | | (MG/DL) IN | | System - | | | | | SER/PLAS | | [facility] | | | | + + + + + + + | BILIRUBIN | 2020-11-07 | [facility] | 0.2 | mg/dl | (missing) | | TOTAL | 15:53 | Health | | | | | (MG/DL) IN | | System - | | | | | SER/PLAS | | [facility] | | | | + + + + + + + | EOSINOPHILS | 2020-11-07 | [facility] | 0.3 | k/mcl | (missing) | | (10*3/UL) | 15:53 | Health | | | | | IN BLOOD BY | | System - | | | | | AUTOMATED | | [facility] | | | | | COUNT | | | | | | + + + + + + + | EOSINOPHILS | 2020-11-07 | [facility] | 0.3 | k/mcl | (missing) | | (10*3/UL) | 15:53 | Health | | | | | IN BLOOD BY | | System - | | | | | AUTOMATED | | [facility] | | | | | COUNT | | | | | | + + + + + + + | IMMATURE | 2020-11-07 | [facility] | 0.4 | % | (missing) | | GRANULOCYTE | 15:53 | Health | | | | | % (AUTO) | | System - | | | | | | | [facility] | | | | + + + + + + + | | 2020-11-07 | [facility] | 0.4 | % | (missing) | | BASOPHILS/10 | 15:53 | Health | | | | | 0 LEUKOCYTES | | System - | | | | | IN BLOOD BY | | [facility] | | | | | AUTOMATED | | | | | | | COUNT | | | | | | + + + + + + + | | 2020-11-07 | [facility] | 0.4 | % | (missing) | | BASOPHILS/10 | 15:53 | Health | | | | | 0 LEUKOCYTES | | System - | | | | | IN BLOOD BY | | [facility] | | | | | AUTOMATED | | | | | | | COUNT | | | | | | + + + + + + + | IMMATURE | 2020-11-07 | [facility] | 0.4 | % | (missing) | | GRANULOCYTE | 15:53 | Health | | | | | % (AUTO) | | System - | | | | | | | [facility] | | | | + + + + + + + | CREATININE | 2020-11-07 | [facility] | 0.6 | mg/dl | (missing) | | (MG/DL) IN | 15:53 | Health | | | | | SER/PLAS | | System - | | | | | | | [facility] | | | | + + + + + + + | CREATININE | 2020-11-07 | [facility] | 0.6 | mg/dl | (missing) | | (MG/DL) IN | 15:53 | Health | | | | | SER/PLAS | | System - | | | | | | | [facility] | | | | + + + + + + + | MONOCYTES | 2020-11-07 | [facility] | 0.7 | k/mcl | (missing) | | (10*3/UL) IN | 15:53 | Health | | | | | BLOOD BY | | System - | | | | | AUTOMATED | | [facility] | | | | | COUNT | | | | | | + + + + + + + | MONOCYTES | 2020-11-07 | [facility] | 0.7 | k/mcl | (missing) | | (10*3/UL) IN | 15:53 | Health | | | | | BLOOD BY | | System - | | | | | AUTOMATED | | [facility] | | | | | COUNT | | | | | | + + + + + + + | | 2020-11-07 | [facility] | 1.74 | :1 | (missing) | | ALBUMIN/GLOB | 15:53 | Health | | | | | ULIN (A/G | | System - | | | | | RATIO) IN | | [facility] | | | | | SER/PLAS | | | | | | + + + + + + + | | 2020-11-07 | [facility] | 1.74 | :1 | (missing) | | ALBUMIN/GLOB | 15:53 | Health | | | | | ULIN (A/G | | System - | | | | | RATIO) IN | | [facility] | | | | | SER/PLAS | | | | | | + + + + + + + | CHLORIDE | 2020-11-07 | [facility] | 108 | mmol/l | (missing) | | (MMOL/L) IN | 15:53 | Health | | | | | SER/PLAS | | System - | | | | | | | [facility] | | | | + + + + + + + | CHLORIDE | 2020-11-07 | [facility] | 108 | mmol/l | (missing) | | (MMOL/L) IN | 15:53 | Health | | | | | SER/PLAS | | System - | | | | | | | [facility] | | | | + + + + + + + | BLOOD UREA | 2020-11-07 | [facility] | 11 | mg/dl | (missing) | | NITROGEN | 15:53 | Health | | | | | (BUN) | | System - | | | | | (MG/DL) IN | | [facility] | | | | | SER/PLAS | | | | | | + + + + + + + | BLOOD UREA | 2020-11-07 | [facility] | 11 | mg/dl | (missing) | | NITROGEN | 15:53 | Health | | | | | (BUN) | | System - | | | | | (MG/DL) IN | | [facility] | | | | | SER/PLAS | | | | | | + + + + + + + | ALANINE | 2020-11-07 | [facility] | 11 | u/l | (missing) | | AMINOTRANSFE | 15:53 | Health | | | | | RASE (SGPT) | | System - | | | | | (U/L) IN | | [facility] | | | | | SER/PLAS | | | | | | + + + + + + + | ALANINE | 2020-11-07 | [facility] | 11 | u/l | (missing) | | AMINOTRANSFE | 15:53 | Health | | | | | RASE (SGPT) | | System - | | | | | (U/L) IN | | [facility] | | | | | SER/PLAS | | | | | | + + + + + + + | ERYTHROCYTE | 2020-11-07 | [facility] | 12.0 | % | (missing) | | | 15:53 | Health | | | | | DISTRIBUTION | | System - | | | | | WIDTH | | [facility] | | | | | (RATIO) BY | | | | | | | AUTOMATED | | | | | | | COUNT | | | | | | + + + + + + + | ERYTHROCYTE | 2020-11-07 | [facility] | 12.0 | % | (missing) | | | 15:53 | Health | | | | | DISTRIBUTION | | System - | | | | | WIDTH | | [facility] | | | | | (RATIO) BY | | | | | | | AUTOMATED | | | | | | | COUNT | | | | | | + + + + + + + | | 2020-11-07 | [facility] | 12.6 | k/mcl | (missing) | | LEUKOCYTES(1 | 15:53 | Health | | | | | 0*3/UL) IN | | System - | | | | | BLOOD BY | | [facility] | | | | | AUTOMATED | | | | | | | COUNT | | | | | | + + + + + + + | | 2020-11-07 | [facility] | 12.6 | k/mcl | (missing) | | LEUKOCYTES(1 | 15:53 | Health | | | | | 0*3/UL) IN | | System - | | | | | BLOOD BY | | [facility] | | | | | AUTOMATED | | | | | | | COUNT | | | | | | + + + + + + + | SODIUM | 2020-11-07 | [facility] | 139 | mmol/l | (missing) | | (MMOL/L) IN | 15:53 | Health | | | | | SER/PLAS | | System - | | | | | | | [facility] | | | | + + + + + + + | SODIUM | 2020-11-07 | [facility] | 139 | mmol/l | (missing) | | (MMOL/L) IN | 15:53 | Health | | | | | SER/PLAS | | System - | | | | | | | [facility] | | | | + + + + + + + | HEMOGLOBIN | 2020-11-07 | [facility] | 14.1 | g/dl | (missing) | | (G/DL) IN | 15:53 | Health | | | | | BLOOD | | System - | | | | | | | [facility] | | | | + + + + + + + | HEMOGLOBIN | 2020-11-07 | [facility] | 14.1 | g/dl | (missing) | | (G/DL) IN | 15:53 | Health | | | | | BLOOD | | System - | | | | | | | [facility] | | | | + + + + + + + | | 2020-11-07 | [facility] | 2.0 | % | (missing) | | EOSINOPHILS/ | 15:53 | Health | | | | | 100 | | System - | | | | | LEUKOCYTES | | [facility] | | | | | IN BLOOD BY | | | | | | | AUTOMATED | | | | | | | COUNT | | | | | | + + + + + + + | | 2020-11-07 | [facility] | 2.0 | % | (missing) | | EOSINOPHILS/ | 15:53 | Health | | | | | 100 | | System - | | | | | LEUKOCYTES | | [facility] | | | | | IN BLOOD BY | | | | | | | AUTOMATED | | | | | | | COUNT | | | | | | + + + + + + + | GLOBULIN | 2020-11-07 | [facility] | 2.3 | g/dl | (missing) | | (G/DL) IN | 15:53 | Health | | | | | SER/PLAS | | System - | | | | | | | [facility] | | | | + + + + + + + | GLOBULIN | 2020-11-07 | [facility] | 2.3 | g/dl | (missing) | | (G/DL) IN | 15:53 | Health | | | | | SER/PLAS | | System - | | | | | | | [facility] | | | | + + + + + + + | ASPARTATE | 2020-11-07 | [facility] | 20 | u/l | (missing) | | AMINOTRANSFE | 15:53 | Health | | | | | RASE (SGOT) | | System - | | | | | (U/L) IN | | [facility] | | | | | SER/PLAS | | | | | | + + + + + + + | ASPARTATE | 2020-11-07 | [facility] | 20 | u/l | (missing) | | AMINOTRANSFE | 15:53 | Health | | | | | RASE (SGOT) | | System - | | | | | (U/L) IN | | [facility] | | | | | SER/PLAS | | | | | | + + + + + + + | CARBON | 2020-11-07 | [facility] | 22 | mmol/l | (missing) | | DIOXIDE | 15:53 | Health | | | | | (CO2), TOTAL | | System - | | | | | (MMOL/L) IN | | [facility] | | | | | SER/PLAS | | | | | | + + + + + + + | CARBON | 2020-11-07 | [facility] | 22 | mmol/l | (missing) | | DIOXIDE | 15:53 | Health | | | | | (CO2), TOTAL | | System - | | | | | (MMOL/L) IN | | [facility] | | | | | SER/PLAS | | | | | | + + + + + + + | ERYTHROCYTE | 2020-11-07 | [facility] | 29.6 | pg | (missing) | | MEAN | 15:53 | Health | | | | | CORPUSCULAR | | System - | | | | | HEMOGLOBIN | | [facility] | | | | | (PG) BY | | | | | | | AUTOMATED | | | | | | | COUNT | | | | | | + + + + + + + | ERYTHROCYTE | 2020-11-07 | [facility] | 29.6 | pg | (missing) | | MEAN | 15:53 | Health | | | | | CORPUSCULAR | | System - | | | | | HEMOGLOBIN | | [facility] | | | | | (PG) BY | | | | | | | AUTOMATED | | | | | | | COUNT | | | | | | + + + + + + + | LYMPHOCYTES | 2020-11-07 | [facility] | 3.8 | k/mcl | (missing) | | (10*3/UL) | 15:53 | Health | | | | | IN BLOOD BY | | System - | | | | | AUTOMATED | | [facility] | | | | | COUNT | | | | | | + + + + + + + | LYMPHOCYTES | 2020-11-07 | [facility] | 3.8 | k/mcl | (missing) | | (10*3/UL) | 15:53 | Health | | | | | IN BLOOD BY | | System - | | | | | AUTOMATED | | [facility] | | | | | COUNT | | | | | | + + + + + + + | POTASSIUM | 2020-11-07 | [facility] | 3.8 | mmol/l | (missing) | | (MMOL/L) IN | 15:53 | Health | | | | | SER/PLAS | | System - | | | | | | | [facility] | | | | + + + + + + + | POTASSIUM | 2020-11-07 | [facility] | 3.8 | mmol/l | (missing) | | (MMOL/L) IN | 15:53 | Health | | | | | SER/PLAS | | System - | | | | | | | [facility] | | | | + + + + + + + | | 2020-11-07 | [facility] | 30.0 | % | (missing) | | LYMPHOCYTES/ | 15:53 | Health | | | | | 100 | | System - | | | | | LEUKOCYTES | | [facility] | | | | | IN BLOOD BY | | | | | | | AUTOMATED | | | | | | | COUNT | | | | | | + + + + + + + | | 2020-11-07 | [facility] | 30.0 | % | (missing) | | LYMPHOCYTES/ | 15:53 | Health | | | | | 100 | | System - | | | | | LEUKOCYTES | | [facility] | | | | | IN BLOOD BY | | | | | | | AUTOMATED | | | | | | | COUNT | | | | | | + + + + + + + | ERYTHROCYTE | 2020-11-07 | [facility] | 33.4 | g/dl | (missing) | | MEAN | 15:53 | Health | | | | | CORPUSCULAR | | System - | | | | | HEMOGLOBIN | | [facility] | | | | | CONCENTRATIO | | | | | | | N (G/DL) BY | | | | | | | AUTOMATED | | | | | | + + + + + + + | ERYTHROCYTE | 2020-11-07 | [facility] | 33.4 | g/dl | (missing) | | MEAN | 15:53 | Health | | | | | CORPUSCULAR | | System - | | | | | HEMOGLOBIN | | [facility] | | | | | CONCENTRATIO | | | | | | | N (G/DL) BY | | | | | | | AUTOMATED | | | | | | + + + + + + + | PLATELETS | 2020-11-07 | [facility] | 340 | k/mcl | (missing) | | (10*3/UL) IN | 15:53 | Health | | | | | BLOOD | | System - | | | | | AUTOMATED | | [facility] | | | | | COUNT | | | | | | + + + + + + + | PLATELETS | 2020-11-07 | [facility] | 340 | k/mcl | (missing) | | (10*3/UL) IN | 15:53 | Health | | | | | BLOOD | | System - | | | | | AUTOMATED | | [facility] | | | | | COUNT | | | | | | + + + + + + + | ALBUMIN | 2020-11-07 | [facility] | 4.0 | g/dl | (missing) | | (G/DL) IN | 15:53 | Health | | | | | SER/PLAS | | System - | | | | | | | [facility] | | | | + + + + + + + | ALBUMIN | 2020-11-07 | [facility] | 4.0 | g/dl | (missing) | | (G/DL) IN | 15:53 | Health | | | | | SER/PLAS | | System - | | | | | | | [facility] | | | | + + + + + + + | | 2020-11-07 | [facility] | 4.77 | m/mcl | (missing) | | ERYTHROCYTES | 15:53 | Health | | | | | (10*6/UL) | | System - | | | | | IN BLOOD BY | | [facility] | | | | | AUTOMATED | | | | | | | COUNT | | | | | | + + + + + + + | | 2020-11-07 | [facility] | 4.77 | m/mcl | (missing) | | ERYTHROCYTES | 15:53 | Health | | | | | (10*6/UL) | | System - | | | | | IN BLOOD BY | | [facility] | | | | | AUTOMATED | | | | | | | COUNT | | | | | | + + + + + + + | HEMATOCRIT | 2020-11-07 | [facility] | 42.2 | % | (missing) | | (%) IN BLOOD | 15:53 | Health | | | | | BY | | System - | | | | | AUTOMATED | | [facility] | | | | | COUNT | | | | | | + + + + + + + | HEMATOCRIT | 2020-11-07 | [facility] | 42.2 | % | (missing) | | (%) IN BLOOD | 15:53 | Health | | | | | BY | | System - | | | | | AUTOMATED | | [facility] | | | | | COUNT | | | | | | + + + + + + + | | 2020-11-07 | [facility] | 5.4 | % | (missing) | | MONOCYTES/10 | 15:53 | Health | | | | | 0 LEUKOCYTES | | System - | | | | | IN BLOOD BY | | [facility] | | | | | AUTOMATED | | | | | | | COUNT | | | | | | + + + + + + + | | 2020-11-07 | [facility] | 5.4 | % | (missing) | | MONOCYTES/10 | 15:53 | Health | | | | | 0 LEUKOCYTES | | System - | | | | | IN BLOOD BY | | [facility] | | | | | AUTOMATED | | | | | | | COUNT | | | | | | + + + + + + + | PROTEIN | 2020-11-07 | [facility] | 6.3 | g/dl | (missing) | | (G/DL) IN | 15:53 | Health | | | | | SER/PLAS | | System - | | | | | | | [facility] | | | | + + + + + + + | PROTEIN | 2020-11-07 | [facility] | 6.3 | g/dl | (missing) | | (G/DL) IN | 15:53 | Health | | | | | SER/PLAS | | System - | | | | | | | [facility] | | | | + + + + + + + | | 2020-11-07 | [facility] | 61.8 | % | (missing) | | NEUTROPHILS/ | 15:53 | Health | | | | | 100 | | System - | | | | | LEUKOCYTES | | [facility] | | | | | IN BLOOD BY | | | | | | | AUTOMATED | | | | | | | COUNT | | | | | | + + + + + + + | | 2020-11-07 | [facility] | 61.8 | % | (missing) | | NEUTROPHILS/ | 15:53 | Health | | | | | 100 | | System - | | | | | LEUKOCYTES | | [facility] | | | | | IN BLOOD BY | | | | | | | AUTOMATED | | | | | | | COUNT | | | | | | + + + + + + + | ALKALINE | 2020-11-07 | [facility] | 68 | u/l | (missing) | | PHOSPHATASE | 15:53 | Health | | | | | (U/L) IN | | System - | | | | | SER/PLAS | | [facility] | | | | + + + + + + + | ALKALINE | 2020-11-07 | [facility] | 68 | u/l | (missing) | | PHOSPHATASE | 15:53 | Health | | | | | (U/L) IN | | System - | | | | | SER/PLAS | | [facility] | | | | + + + + + + + | NEUTROPHILS | 2020-11-07 | [facility] | 7.8 | k/mcl | (missing) | | (10*3/UL) | 15:53 | Health | | | | | IN BLOOD BY | | System - | | | | | AUTOMATED | | [facility] | | | | | COUNT | | | | | | + + + + + + + | NEUTROPHILS | 2020-11-07 | [facility] | 7.8 | k/mcl | (missing) | | (10*3/UL) | 15:53 | Health | | | | | IN BLOOD BY | | System - | | | | | AUTOMATED | | [facility] | | | | | COUNT | | | | | | + + + + + + + | CALCIUM | 2020-11-07 | [facility] | 8.7 | mg/dl | (missing) | | (MG/DL) IN | 15:53 | Health | | | | | SER/PLAS | | System - | | | | | | | [facility] | | | | + + + + + + + | CALCIUM | 2020-11-07 | [facility] | 8.7 | mg/dl | (missing) | | (MG/DL) IN | 15:53 | Health | | | | | SER/PLAS | | System - | | | | | | | [facility] | | | | + + + + + + + | ERYTHROCYTE | 2020-11-07 | [facility] | 88.5 | fl | (missing) | | MEAN | 15:53 | Health | | | | | CORPUSCULAR | | System - | | | | | VOLUME (FL) | | [facility] | | | | | BY AUTOMATED | | | | | | | COUNT | | | | | | + + + + + + + | ERYTHROCYTE | 2020-11-07 | [facility] | 88.5 | fl | (missing) | | MEAN | 15:53 | Health | | | | | CORPUSCULAR | | System - | | | | | VOLUME (FL) | | [facility] | | | | | BY AUTOMATED | | | | | | | COUNT | | | | | | + + + + + + + | ANION GAP | 2020-11-07 | [facility] | 9.0 | mmol/l | (missing) | | IN SER/PLAS | 15:53 | Health | | | | | | | System - | | | | | | | [facility] | | | | + + + + + + + | ANION GAP | 2020-11-07 | [facility] | 9.0 | mmol/l | (missing) | | IN SER/PLAS | 15:53 | Health | | | | | | | System - | | | | | | | [facility] | | | | + + + + + + + | PLATELET | 2020-11-07 | [facility] | 9.8 | fl | (missing) | | MEAN VOLUME | 15:53 | Health | | | | | (FL) IN | | System - | | | | | BLOOD BY | | [facility] | | | | | AUTOMATED | | | | | | | COUNT | | | | | | + + + + + + + | PLATELET | 2020-11-07 | [facility] | 9.8 | fl | (missing) | | MEAN VOLUME | 15:53 | Health | | | | | (FL) IN | | System - | | | | | BLOOD BY | | [facility] | | | | | AUTOMATED | | | | | | | COUNT | | | | | | + + + + + + + | GLUCOSE, | 2020-11-07 | [facility] | 94 | mg/dl | (missing) | | RANDOM | 15:53 | Health | | | | | (MG/DL) IN | | System - | | | | | SER/PLAS | | [facility] | | | | + + + + + + + | GLUCOSE, | 2020-11-07 | [facility] | 94 | mg/dl | (missing) | | RANDOM | 15:53 | Health | | | | | (MG/DL) IN | | System - | | | | | SER/PLAS | | [facility] | | | | + + + + + + + | | 2020-11-07 | [facility] | Negative | (missing) | (missing) | | BARBITURATES | 15:53 | Health | | | | | PRESENCE IN | | System - | | | | | URINE BY | | [facility] | | | | | SCREEN | | | | | | | METHOD | | | | | | + + + + + + + | | 2020-11-07 | [facility] | Negative | (missing) | (missing) | | BENZODIAZEPI | 15:53 | Health | | | | | SURYA | | System - | | | | | (PRESENCE) | | [facility] | | | | | IN URINE BY | | | | | | | SCREEN | | | | | | | METHOD | | | | | | + + + + + + + | COCAINE | 2020-11-07 | [facility] | Negative | (missing) | (missing) | | (PRESENCE) | 15:53 | Health | | | | | IN URINE BY | | System - | | | | | SCREEN | | [facility] | | | | | METHOD | | | | | | + + + + + + + | METHADONE | 2020-11-07 | [facility] | Negative | (missing) | (missing) | | (PRESENCE) | 15:53 | Health | | | | | IN URINE BY | | System - | | | | | SCREEN | | [facility] | | | | | METHOD | | | | | | + + + + + + + | OPIATES | 2020-11-07 | [facility] | Negative | (missing) | (missing) | | (PRESENCE) | 15:53 | Health | | | | | IN URINE BY | | System - | | | | | SCREEN | | [facility] | | | | | METHOD | | | | | | + + + + + + + | OXYCODONE | 2020-11-07 | [facility] | Negative | (missing) | (missing) | | (PRESENCE) | 15:53 | Health | | | | | IN URINE BY | | System - | | | | | SCREEN | | [facility] | | | | | METHOD | | | | | | + + + + + + + | | 2020-11-07 | [facility] | Negative | (missing) | (missing) | | PHENCYCLIDIN | 15:53 | Health | | | | | E (PRESENCE) | | System - | | | | | IN URINE BY | | [facility] | | | | | SCREEN | | | | | | | METHOD | | | | | | + + + + + + + | TRICYCLIC | 2020-11-07 | [facility] | Negative | (missing) | (missing) | | ANTIDEPRESSA | 15:53 | Health | | | | | NTS | | System - | | | | | (PRESENCE) | | [facility] | | | | | IN URINE | | | | | | + + + + + + + | | 2020-11-07 | [facility] | Negative | (missing) | (missing) | | PHENCYCLIDIN | 15:53 | Health | | | | | E (PRESENCE) | | System - | | | | | IN URINE BY | | [facility] | | | | | SCREEN | | | | | | | METHOD | | | | | | + + + + + + + | OPIATES | 2020-11-07 | [facility] | Negative | (missing) | (missing) | | (PRESENCE) | 15:53 | Health | | | | | IN URINE BY | | System - | | | | | SCREEN | | [facility] | | | | | METHOD | | | | | | + + + + + + + | TRICYCLIC | 2020-11-07 | [facility] | Negative | (missing) | (missing) | | ANTIDEPRESSA | 15:53 | Health | | | | | NTS | | System - | | | | | (PRESENCE) | | [facility] | | | | | IN URINE | | | | | | + + + + + + + | OXYCODONE | 2020-11-07 | [facility] | Negative | (missing) | (missing) | | (PRESENCE) | 15:53 | Health | | | | | IN URINE BY | | System - | | | | | SCREEN | | [facility] | | | | | METHOD | | | | | | + + + + + + + | COCAINE | 2020-11-07 | [facility] | Negative | (missing) | (missing) | | (PRESENCE) | 15:53 | Health | | | | | IN URINE BY | | System - | | | | | SCREEN | | [facility] | | | | | METHOD | | | | | | + + + + + + + | | 2020-11-07 | [facility] | Negative | (missing) | (missing) | | BARBITURATES | 15:53 | Health | | | | | PRESENCE IN | | System - | | | | | URINE BY | | [facility] | | | | | SCREEN | | | | | | | METHOD | | | | | | + + + + + + + | | 2020-11-07 | [facility] | Negative | (missing) | (missing) | | BENZODIAZEPI | 15:53 | Health | | | | | SURYA | | System - | | | | | (PRESENCE) | | [facility] | | | | | IN URINE BY | | | | | | | SCREEN | | | | | | | METHOD | | | | | | + + + + + + + | METHADONE | 2020-11-07 | [facility] | Negative | (missing) | (missing) | | (PRESENCE) | 15:53 | Health | | | | | IN URINE BY | | System - | | | | | SCREEN | | [facility] | | | | | METHOD | | | | | | + + + + + + + | | 2020-11-07 | [facility] | Presumptive | (missing) | (missing) | | METHAMPHETAM | 15:53 | Health | Positive | | | | INE | | System - | | | | | (PRESENCE) | | [facility] | | | | | IN URINE BY | | | | | | | SCREEN | | | | | | | METHOD | | | | | | + + + + + + + | THC | 2020-11-07 | [facility] | Presumptive | (missing) | (missing) | | (CANNABINOID | 15:53 | Health | Positive | | | | ) IN URINE | | System - | | | | | BY SCREEN | | [facility] | | | | | METHOD | | | | | | + + + + + + + | THC | 2020-11-07 | [facility] | Presumptive | (missing) | (missing) | | (CANNABINOID | 15:53 | Health | Positive | | | | ) IN URINE | | System - | | | | | BY SCREEN | | [facility] | | | | | METHOD | | | | | | + + + + + + + | AMPHETAMINE | 2020-11-07 | [facility] | Presumptive | (missing) | (missing) | | (PRESENCE) | 15:53 | Health | Positive | | | | IN URINE BY | | System - | | | | | SCREEN | | [facility] | | | | | METHOD | | | | | | + + + + + + + | | 2020-11-07 | [facility] | Presumptive | (missing) | (missing) | | METHAMPHETAM | 15:53 | Health | Positive | | | | INE | | System - | | | | | (PRESENCE) | | [facility] | | | | | IN URINE BY | | | | | | | SCREEN | | | | | | | METHOD | | | | | | + + + + + + + | AMPHETAMINE | 2020-11-07 | [facility] | Presumptive | (missing) | (missing) | | (PRESENCE) | 15:53 | Health | Positive | | | | IN URINE BY | | System - | | | | | SCREEN | | [facility] | | | | | METHOD | | | | | | + + + + + + + + + | Result panel 12 | + + + + + + + + + | POCT | 2020-11-07 | [facility] | Negative | (missing) | (missing) | | | 17:09 | Health | | | | | TEST URINE | | System - | | | | | | | [facility] | | | | + + + + + + + | POCT | 2020-11-07 | [facility] | Negative | (missing) | (missing) | | | 17:09 | Health | | | | | TEST URINE | | System - | | | | | | | [facility] | | | | + + + + + + + + + | Result panel 13 | + + + + + + + + + | ALCOHOL | 2020-11-10 | [facility] | < | g/dl | (missing) | | (G/DL) IN | 17:17 | Health | | | | | SER/PLAS | | System - | | | | | | | [facility] | | | | + + + + + + + | ALCOHOL | 2020-11-10 | [facility] | < | g/dl | (missing) | | (G/DL) IN | 17:17 | Health | | | | | SER/PLAS | | System - | | | | | | | [facility] | | | | + + + + + + + | | 2020-11-10 | [facility] | < | mcg/ml | (missing) | | ACETAMINOPHE | 17:17 | Health | | | | | N (UG/ML) IN | | System - | | | | | SER/PLAS | | [facility] | | | | + + + + + + + | | 2020-11-10 | [facility] | < | mcg/ml | (missing) | | ACETAMINOPHE | 17:17 | Health | | | | | N (UG/ML) IN | | System - | | | | | SER/PLAS | | [facility] | | | | + + + + + + + | SALICYLATE | 2020-11-10 | [facility] | < | mg/dl | (missing) | | (MG/DL) IN | 17:17 | Health | | | | | SER/PLAS | | System - | | | | | | | [facility] | | | | + + + + + + + | SALICYLATE | 2020-11-10 | [facility] | < | mg/dl | (missing) | | (MG/DL) IN | : | Health | | | | | SER/PLAS | | System - | | | | | | | [facility] | | | | + + + + + + + | | 2020-11-10 | [facility] | 0.2-1.0 | mg/dl | (missing) | | UROBILINOGEN | : | Health | | | | | (MG/DL) IN | | System - | | | | | URINE BY | | [facility] | | | | | TEST STRIP | | | | | | + + + + + + + | | 2020-11-10 | [facility] | 0.2-1.0 | mg/dl | (missing) | | UROBILINOGEN | 17:17 | Health | | | | | (MG/DL) IN | | System - | | | | | URINE BY | | [facility] | | | | | TEST STRIP | | | | | | + + + + + + + | SPECIFIC | 2020-11-10 | [facility] | 1.017 | (missing) | (missing) | | GRAVITY OF | 17:17 | Health | | | | | URINE BY | | System - | | | | | AUTOMATED | | [facility] | | | | | TEST STRIP | | | | | | + + + + + + + | SPECIFIC | 2020-11-10 | [facility] | 1.017 | (missing) | (missing) | | GRAVITY OF | 17:17 | Health | | | | | URINE BY | | System - | | | | | AUTOMATED | | [facility] | | | | | TEST STRIP | | | | | | + + + + + + + | HEMOGLOBIN | 2020-11-10 | [facility] | 2 | (missing) | (missing) | | PRESENCE IN | 17:17 | Health | | | | | URINE | | System - | | | | | | | [facility] | | | | + + + + + + + | HEMOGLOBIN | 2020-11-10 | [facility] | 2 | (missing) | (missing) | | PRESENCE IN | 17:17 | Health | | | | | URINE | | System - | | | | | | | [facility] | | | | + + + + + + + | WBC | 2020-11-10 | [facility] | 2 | /hpf | (missing) | | (LEUKOCYTE) | 17:17 | Health | | | | | (#/HPF) IN | | System - | | | | | URINE | | [facility] | | | | | SEDIMENT | | | | | | + + + + + + + | WBC | 2020-11-10 | [facility] | 2 | /hpf | (missing) | | (LEUKOCYTE) | 17:17 | Health | | | | | (#/HPF) IN | | System - | | | | | URINE | | [facility] | | | | | SEDIMENT | | | | | | + + + + + + + | RBC (#/HPF) | 2020-11-10 | [facility] | 3 | /hpf | (missing) | | IN URINE | 17:17 | Health | | | | | SEDIMENT | | System - | | | | | | | [facility] | | | | + + + + + + + | RBC (#/HPF) | 2020-11-10 | [facility] | 3 | /hpf | (missing) | | IN URINE | 17:17 | Health | | | | | SEDIMENT | | System - | | | | | | | [facility] | | | | + + + + + + + | SQUAMOUS | 2020-11-10 | [facility] | 4 | /hpf | (missing) | | EPITHELIAL | 17:17 | Health | | | | | CELLS | | System - | | | | | (#/HPF) IN | | [facility] | | | | | URINE | | | | | | | SEDIMENT | | | | | | + + + + + + + | SQUAMOUS | 2020-11-10 | [facility] | 4 | /hpf | (missing) | | EPITHELIAL | 17:17 | Health | | | | | CELLS | | System - | | | | | (#/HPF) IN | | [facility] | | | | | URINE | | | | | | | SEDIMENT | | | | | | + + + + + + + | PH OF URINE | 2020-11-10 | [facility] | 7.0 | (missing) | (missing) | | | 17:17 | Health | | | | | | | System - | | | | | | | [facility] | | | | + + + + + + + | PH OF URINE | 2020-11-10 | [facility] | 7.0 | (missing) | (missing) | | | 17:17 | Health | | | | | | | System - | | | | | | | [facility] | | | | + + + + + + + | CLARITY OF | 2020-11-10 | [facility] | Darryl | (missing) | (missing) | | URINE | 17:17 | Health | | | | | | | System - | | | | | | | [facility] | | | | + + + + + + + | CLARITY OF | 2020-11-10 | [facility] | Hazy | (missing) | (missing) | | URINE | 17:17 | Health | | | | | | | System - | | | | | | | [facility] | | | | + + + + + + + | ASA | 2020-11-10 | [facility] | Negative | (missing) | (missing) | | (ASCORBIC | 17:17 | Health | | | | | ACID) IN | | System - | | | | | URINE | | [facility] | | | | + + + + + + + | | 2020-11-10 | [facility] | Negative | (missing) | (missing) | | BARBITURATES | 17:17 | Health | | | | | PRESENCE IN | | System - | | | | | URINE BY | | [facility] | | | | | SCREEN | | | | | | | METHOD | | | | | | + + + + + + + | | 2020-11-10 | [facility] | Negative | (missing) | (missing) | | BENZODIAZEPI | 17:17 | Health | | | | | SURYA | | System - | | | | | (PRESENCE) | | [facility] | | | | | IN URINE BY | | | | | | | SCREEN | | | | | | | METHOD | | | | | | + + + + + + + | BILIRUBIN, | 2020-11-10 | [facility] | Negative | (missing) | (missing) | | TOTAL | 17:17 | Health | | | | | PRESENCE IN | | System - | | | | | URINE | | [facility] | | | | + + + + + + + | COCAINE | 2020-11-10 | [facility] | Negative | (missing) | (missing) | | (PRESENCE) | 17:17 | Health | | | | | IN URINE BY | | System - | | | | | SCREEN | | [facility] | | | | | METHOD | | | | | | + + + + + + + | GLUCOSE IN | 2020-11-10 | [facility] | Negative | (missing) | (missing) | | URINE | 17:17 | Health | | | | | | | System - | | | | | | | [facility] | | | | + + + + + + + | KETONES IN | 2020-11-10 | [facility] | Negative | (missing) | (missing) | | URINE | 17:17 | Health | | | | | | | System - | | | | | | | [facility] | | | | + + + + + + + | LEUKOCYTE | 2020-11-10 | [facility] | Negative | (missing) | (missing) | | ESTERASE | 17:17 | Health | | | | | PRESENCE IN | | System - | | | | | URINE BY | | [facility] | | | | | TEST STRIP | | | | | | + + + + + + + | METHADONE | 2020-11-10 | [facility] | Negative | (missing) | (missing) | | (PRESENCE) | 17:17 | Health | | | | | IN URINE BY | | System - | | | | | SCREEN | | [facility] | | | | | METHOD | | | | | | + + + + + + + | | 2020-11-10 | [facility] | Negative | (missing) | (missing) | | METHAMPHETAM | 17:17 | Health | | | | | INE | | System - | | | | | (PRESENCE) | | [facility] | | | | | IN URINE BY | | | | | | | SCREEN | | | | | | | METHOD | | | | | | + + + + + + + | NITRITE | 2020-11-10 | [facility] | Negative | (missing) | (missing) | | PRESENCE IN | 17:17 | Health | | | | | URINE | | System - | | | | | | | [facility] | | | | + + + + + + + | OXYCODONE | 2020-11-10 | [facility] | Negative | (missing) | (missing) | | (PRESENCE) | 17:17 | Health | | | | | IN URINE BY | | System - | | | | | SCREEN | | [facility] | | | | | METHOD | | | | | | + + + + + + + | | 2020-11-10 | [facility] | Negative | (missing) | (missing) | | PHENCYCLIDIN | 17:17 | Health | | | | | E (PRESENCE) | | System - | | | | | IN URINE BY | | [facility] | | | | | SCREEN | | | | | | | METHOD | | | | | | + + + + + + + | PROTEIN IN | 2020-11-10 | [facility] | Negative | (missing) | (missing) | | URINE BY | 17:17 | Health | | | | | TEST STRIP | | System - | | | | | | | [facility] | | | | + + + + + + + | THC | 2020-11-10 | [facility] | Negative | (missing) | (missing) | | (CANNABINOID | 17:17 | Health | | | | | ) IN URINE | | System - | | | | | BY SCREEN | | [facility] | | | | | METHOD | | | | | | + + + + + + + | TRICYCLIC | 2020-11-10 | [facility] | Negative | (missing) | (missing) | | ANTIDEPRESSA | 17:17 | Health | | | | | NTS | | System - | | | | | (PRESENCE) | | [facility] | | | | | IN URINE | | | | | | + + + + + + + | | 2020-11-10 | [facility] | Negative | (missing) | (missing) | | PHENCYCLIDIN | 17:17 | Health | | | | | E (PRESENCE) | | System - | | | | | IN URINE BY | | [facility] | | | | | SCREEN | | | | | | | METHOD | | | | | | + + + + + + + | THC | 2020-11-10 | [facility] | Negative | (missing) | (missing) | | (CANNABINOID | 17:17 | Health | | | | | ) IN URINE | | System - | | | | | BY SCREEN | | [facility] | | | | | METHOD | | | | | | + + + + + + + | ASA | 2020-11-10 | [facility] | Negative | (missing) | (missing) | | (ASCORBIC | 17:17 | Health | | | | | ACID) IN | | System - | | | | | URINE | | [facility] | | | | + + + + + + + | TRICYCLIC | 2020-11-10 | [facility] | Negative | (missing) | (missing) | | ANTIDEPRESSA | 17:17 | Health | | | | | NTS | | System - | | | | | (PRESENCE) | | [facility] | | | | | IN URINE | | | | | | + + + + + + + | AMPHETAMINE | 2020-11-10 | [facility] | Negative | (missing) | (missing) | | (PRESENCE) | 17:17 | Health | | | | | IN URINE BY | | System - | | | | | SCREEN | | [facility] | | | | | METHOD | | | | | | + + + + + + + | | 2020-11-10 | [facility] | Negative | (missing) | (missing) | | METHAMPHETAM | 17:17 | Health | | | | | INE | | System - | | | | | (PRESENCE) | | [facility] | | | | | IN URINE BY | | | | | | | SCREEN | | | | | | | METHOD | | | | | | + + + + + + + | OXYCODONE | 2020-11-10 | [facility] | Negative | (missing) | (missing) | | (PRESENCE) | 17:17 | Health | | | | | IN URINE BY | | System - | | | | | SCREEN | | [facility] | | | | | METHOD | | | | | | + + + + + + + | BILIRUBIN, | 2020-11-10 | [facility] | Negative | (missing) | (missing) | | TOTAL | 17:17 | Health | | | | | PRESENCE IN | | System - | | | | | URINE | | [facility] | | | | + + + + + + + | GLUCOSE IN | 2020-11-10 | [facility] | Negative | (missing) | (missing) | | URINE | 17:17 | Health | | | | | | | System - | | | | | | | [facility] | | | | + + + + + + + | COCAINE | 2020-11-10 | [facility] | Negative | (missing) | (missing) | | (PRESENCE) | 17:17 | Health | | | | | IN URINE BY | | System - | | | | | SCREEN | | [facility] | | | | | METHOD | | | | | | + + + + + + + | NITRITE | 2020-11-10 | [facility] | Negative | (missing) | (missing) | | PRESENCE IN | 17:17 | Health | | | | | URINE | | System - | | | | | | | [facility] | | | | + + + + + + + | KETONES IN | 2020-11-10 | [facility] | Negative | (missing) | (missing) | | URINE | 17:17 | Health | | | | | | | System - | | | | | | | [facility] | | | | + + + + + + + | PROTEIN IN | 2020-11-10 | [facility] | Negative | (missing) | (missing) | | URINE BY | 17:17 | Health | | | | | TEST STRIP | | System - | | | | | | | [facility] | | | | + + + + + + + | | 2020-11-10 | [facility] | Negative | (missing) | (missing) | | BARBITURATES | 17:17 | Health | | | | | PRESENCE IN | | System - | | | | | URINE BY | | [facility] | | | | | SCREEN | | | | | | | METHOD | | | | | | + + + + + + + | | 2020-11-10 | [facility] | Negative | (missing) | (missing) | | BENZODIAZEPI | 17:17 | Health | | | | | SURYA | | System - | | | | | (PRESENCE) | | [facility] | | | | | IN URINE BY | | | | | | | SCREEN | | | | | | | METHOD | | | | | | + + + + + + + | METHADONE | 2020-11-10 | [facility] | Negative | (missing) | (missing) | | (PRESENCE) | 17:17 | Health | | | | | IN URINE BY | | System - | | | | | SCREEN | | [facility] | | | | | METHOD | | | | | | + + + + + + + | LEUKOCYTE | 2020-11-10 | [facility] | Negative | (missing) | (missing) | | ESTERASE | 17:17 | Health | | | | | PRESENCE IN | | System - | | | | | URINE BY | | [facility] | | | | | TEST STRIP | | | | | | + + + + + + + | AMPHETAMINE | 2020-11-10 | [facility] | Negative | (missing) | (missing) | | (PRESENCE) | 17:17 | Health | | | | | IN URINE BY | | System - | | | | | SCREEN | | [facility] | | | | | METHOD | | | | | | + + + + + + + | OPIATES | 2020-11-10 | [facility] | Presumptive | (missing) | (missing) | | (PRESENCE) | 17:17 | Health | Positive | | | | IN URINE BY | | System - | | | | | SCREEN | | [facility] | | | | | METHOD | | | | | | + + + + + + + | OPIATES | 2020-11-10 | [facility] | Presumptive | (missing) | (missing) | | (PRESENCE) | : | Health | Positive | | | | IN URINE BY | | System - | | | | | SCREEN | | [facility] | | | | | METHOD | | | | | | + + + + + + + | MUCUS | 2020-11-10 | [facility] | Trace | (missing) | (missing) | | (#/HPF) IN | | Health | | | | | URINE | | System - | | | | | SEDIMENT | | [facility] | | | | + + + + + + + | MUCUS | 2020-11-10 | [facility] | Trace | (missing) | (missing) | | (#/HPF) IN | | Health | | | | | URINE | | System - | | | | | SEDIMENT | | [facility] | | | | + + + + + + + | BACTERIA | 2020-11-10 | [facility] | Trace | /hpf | (missing) | | (#/HPF) IN | :17 | Health | | | | | URINE | | System - | | | | | | | [facility] | | | | + + + + + + + | BACTERIA | 2020-11-10 | [facility] | Trace | /hpf | (missing) | | (#/HPF) IN | 17:17 | Health | | | | | URINE | | System - | | | | | | | [facility] | | | | + + + + + + + | COLOR OF | 2020-11-10 | [facility] | Yellow | (missing) | (missing) | | URINE | 17:17 | Health | | | | | | | System - | | | | | | | [facility] | | | | + + + + + + + | COLOR OF | 2020-11-10 | [facility] | Yellow | (missing) | (missing) | | URINE | 17:17 | Health | | | | | | | System - | | | | | | | [facility] | | | | + + + + + + + + + | Result panel 14 | + + + + + + + + + | [facility] QUAL | 2020-11-10 | [facility] | Negative | (missing) | (missing) | | (CHORIOGONAD | 17:18 | Health | | | | | OTROPIN) IN | | System - | | | | | SER/PLAS | | [facility] | | | | + + + + + + + | [facility] QUAL | 2020-11-10 | [facility] | Negative | (missing) | (missing) | | (CHORIOGONAD | 17:18 | Health | | | | | OTROPIN) IN | | System - | | | | | SER/PLAS | | [facility] | | | | + + + + + + + + + | Result panel 15 | + + + + + + + + + | EGFR | 2020-11-28 | [facility] | > | | (missing) | | (GLOMERULAR | 12:31 | Health | | ml/min/1.73m | | | FILTRATION | | System - | | ? | | | RATE) | | [facility] | | | | | ML/MIN/1.73 | | | | | | | SQ M. | | | | | | + + + + + + + | EGFR | 2020-11-28 | [facility] | > | | (missing) | | (GLOMERULAR | 12:31 | Health | | ml/min/1.73m | | | FILTRATION | | System - | | ? | | | RATE) | | [facility] | | | | | ML/MIN/1.73 | | | | | | | SQ M. | | | | | | + + + + + + + | ALCOHOL | 2020-11-28 | [facility] | < | g/dl | (missing) | | (G/DL) IN | 12:31 | Health | | | | | SER/PLAS | | System - | | | | | | | [facility] | | | | + + + + + + + | ALCOHOL | 2020-11-28 | [facility] | < | g/dl | (missing) | | (G/DL) IN | 12:31 | Health | | | | | SER/PLAS | | System - | | | | | | | [facility] | | | | + + + + + + + | | 2020-11-28 | [facility] | < | mcg/ml | (missing) | | ACETAMINOPHE | 12:31 | Health | | | | | N (UG/ML) IN | | System - | | | | | SER/PLAS | | [facility] | | | | + + + + + + + | | 2020-11-28 | [facility] | < | mcg/ml | (missing) | | ACETAMINOPHE | 12:31 | Health | | | | | N (UG/ML) IN | | System - | | | | | SER/PLAS | | [facility] | | | | + + + + + + + | SALICYLATE | 2020-11-28 | [facility] | < | mg/dl | (missing) | | (MG/DL) IN | 12:31 | Health | | | | | SER/PLAS | | System - | | | | | | | [facility] | | | | + + + + + + + | SALICYLATE | 2020-11-28 | [facility] | < | mg/dl | (missing) | | (MG/DL) IN | 12:31 | Health | | | | | SER/PLAS | | System - | | | | | | | [facility] | | | | + + + + + + + | NRBC/100 | 2020-11-28 | [facility] | 0.0 | % | (missing) | | WBCS BY | 12:31 | Health | | | | | AUTOMATED | | System - | | | | | COUNT | | [facility] | | | | + + + + + + + | NRBC/100 | 2020-11-28 | [facility] | 0.0 | % | (missing) | | WBCS BY | 12:31 | Health | | | | | AUTOMATED | | System - | | | | | COUNT | | [facility] | | | | + + + + + + + | BASOPHILS | 2020-11-28 | [facility] | 0.0 | k/mcl | (missing) | | (10*3/UL) IN | 12:31 | Health | | | | | BLOOD BY | | System - | | | | | AUTOMATED | | [facility] | | | | | COUNT | | | | | | + + + + + + + | | 2020-11-28 | [facility] | 0.0 | k/mcl | (missing) | | NRBC(10*3/UL | 12: | Health | | | | | ) IN BLOOD | | System - | | | | | BY AUTOMATED | | [facility] | | | | | COUNT | | | | | | + + + + + + + | BASOPHILS | 2020-11-28 | [facility] | 0.0 | k/mcl | (missing) | | (10*3/UL) IN | : | Health | | | | | BLOOD BY | | System - | | | | | AUTOMATED | | [facility] | | | | | COUNT | | | | | | + + + + + + + | | 2020-11-28 | [facility] | 0.0 | k/mcl | (missing) | | NRBC(10*3/UL | 12: | Health | | | | | ) IN BLOOD | | System - | | | | | BY AUTOMATED | | [facility] | | | | | COUNT | | | | | | + + + + + + + | IMMATURE | 2020-11-28 | [facility] | 0.06 | k/mcl | (missing) | | GRANULOCYTE | | Health | | | | | (ABS) | | System - | | | | | | | [facility] | | | | + + + + + + + | IMMATURE | 2020-11-28 | [facility] | 0.06 | k/mcl | (missing) | | GRANULOCYTE | 12:31 | Health | | | | | (ABS) | | System - | | | | | | | [facility] | | | | + + + + + + + | EOSINOPHILS | 2020-11-28 | [facility] | 0.2 | k/mcl | (missing) | | (10*3/UL) | 12:31 | Health | | | | | IN BLOOD BY | | System - | | | | | AUTOMATED | | [facility] | | | | | COUNT | | | | | | + + + + + + + | EOSINOPHILS | 2020-11-28 | [facility] | 0.2 | k/mcl | (missing) | | (10*3/UL) | 12:31 | Health | | | | | IN BLOOD BY | | System - | | | | | AUTOMATED | | [facility] | | | | | COUNT | | | | | | + + + + + + + | | 2020-11-28 | [facility] | 0.4 | % | (missing) | | BASOPHILS/10 | 12:31 | Health | | | | | 0 LEUKOCYTES | | System - | | | | | IN BLOOD BY | | [facility] | | | | | AUTOMATED | | | | | | | COUNT | | | | | | + + + + + + + | | 2020-11-28 | [facility] | 0.4 | % | (missing) | | BASOPHILS/10 | 12:31 | Health | | | | | 0 LEUKOCYTES | | System - | | | | | IN BLOOD BY | | [facility] | | | | | AUTOMATED | | | | | | | COUNT | | | | | | + + + + + + + | MONOCYTES | 2020-11-28 | [facility] | 0.4 | k/mcl | (missing) | | (10*3/UL) IN | 12:31 | Health | | | | | BLOOD BY | | System - | | | | | AUTOMATED | | [facility] | | | | | COUNT | | | | | | + + + + + + + | MONOCYTES | 2020-11-28 | [facility] | 0.4 | k/mcl | (missing) | | (10*3/UL) IN | 12:31 | Health | | | | | BLOOD BY | | System - | | | | | AUTOMATED | | [facility] | | | | | COUNT | | | | | | + + + + + + + | BILIRUBIN | 2020-11-28 | [facility] | 0.4 | mg/dl | (missing) | | TOTAL | 12:31 | Health | | | | | (MG/DL) IN | | System - | | | | | SER/PLAS | | [facility] | | | | + + + + + + + | BILIRUBIN | 2020-11-28 | [facility] | 0.4 | mg/dl | (missing) | | TOTAL | 12:31 | Health | | | | | (MG/DL) IN | | System - | | | | | SER/PLAS | | [facility] | | | | + + + + + + + | IMMATURE | 2020-11-28 | [facility] | 0.7 | % | (missing) | | GRANULOCYTE | 12:31 | Health | | | | | % (AUTO) | | System - | | | | | | | [facility] | | | | + + + + + + + | IMMATURE | 2020-11-28 | [facility] | 0.7 | % | (missing) | | GRANULOCYTE | : | Health | | | | | % (AUTO) | | System - | | | | | | | [facility] | | | | + + + + + + + | CREATININE | 2020-11-28 | [facility] | 0.7 | mg/dl | (missing) | | (MG/DL) IN | 12:31 | Health | | | | | SER/PLAS | | System - | | | | | | | [facility] | | | | + + + + + + + | CREATININE | 2020-11-28 | [facility] | 0.7 | mg/dl | (missing) | | (MG/DL) IN | 12:31 | Health | | | | | SER/PLAS | | System - | | | | | | | [facility] | | | | + + + + + + + | | 2020-11-28 | [facility] | 1.79 | :1 | (missing) | | ALBUMIN/GLOB | 12:31 | Health | | | | | ULIN (A/G | | System - | | | | | RATIO) IN | | [facility] | | | | | SER/PLAS | | | | | | + + + + + + + | | 2020-11-28 | [facility] | 1.79 | :1 | (missing) | | ALBUMIN/GLOB | 12:31 | Health | | | | | ULIN (A/G | | System - | | | | | RATIO) IN | | [facility] | | | | | SER/PLAS | | | | | | + + + + + + + | ANION GAP | 2020-11-28 | [facility] | 10.0 | mmol/l | (missing) | | IN SER/PLAS | 12:31 | Health | | | | | | | System - | | | | | | | [facility] | | | | + + + + + + + | ANION GAP | 2020-11-28 | [facility] | 10.0 | mmol/l | (missing) | | IN SER/PLAS | 12:31 | Health | | | | | | | System - | | | | | | | [facility] | | | | + + + + + + + | CHLORIDE | 2020-11-28 | [facility] | 104 | mmol/l | (missing) | | (MMOL/L) IN | 12:31 | Health | | | | | SER/PLAS | | System - | | | | | | | [facility] | | | | + + + + + + + | CHLORIDE | 2020-11-28 | [facility] | 104 | mmol/l | (missing) | | (MMOL/L) IN | 12:31 | Health | | | | | SER/PLAS | | System - | | | | | | | [facility] | | | | + + + + + + + | ERYTHROCYTE | 2020-11-28 | [facility] | 13.2 | % | (missing) | | | 12:31 | Health | | | | | DISTRIBUTION | | System - | | | | | WIDTH | | [facility] | | | | | (RATIO) BY | | | | | | | AUTOMATED | | | | | | | COUNT | | | | | | + + + + + + + | ERYTHROCYTE | 2020-11-28 | [facility] | 13.2 | % | (missing) | | | 12:31 | Health | | | | | DISTRIBUTION | | System - | | | | | WIDTH | | [facility] | | | | | (RATIO) BY | | | | | | | AUTOMATED | | | | | | | COUNT | | | | | | + + + + + + + | SODIUM | 2020-11-28 | [facility] | 138 | mmol/l | (missing) | | (MMOL/L) IN | 12:31 | Health | | | | | SER/PLAS | | System - | | | | | | | [facility] | | | | + + + + + + + | SODIUM | 2020-11-28 | [facility] | 138 | mmol/l | (missing) | | (MMOL/L) IN | 12:31 | Health | | | | | SER/PLAS | | System - | | | | | | | [facility] | | | | + + + + + + + | HEMOGLOBIN | 2020-11-28 | [facility] | 14.3 | g/dl | (missing) | | (G/DL) IN | 12:31 | Health | | | | | BLOOD | | System - | | | | | | | [facility] | | | | + + + + + + + | HEMOGLOBIN | 2020-11-28 | [facility] | 14.3 | g/dl | (missing) | | (G/DL) IN | 1231 | Health | | | | | BLOOD | | System - | | | | | | | [facility] | | | | + + + + + + + | | 2020-11-28 | [facility] | 2.2 | % | (missing) | | EOSINOPHILS/ | 12:31 | Health | | | | | 100 | | System - | | | | | LEUKOCYTES | | [facility] | | | | | IN BLOOD BY | | | | | | | AUTOMATED | | | | | | | COUNT | | | | | | + + + + + + + | | 2020-11-28 | [facility] | 2.2 | % | (missing) | | EOSINOPHILS/ | 12:31 | Health | | | | | 100 | | System - | | | | | LEUKOCYTES | | [facility] | | | | | IN BLOOD BY | | | | | | | AUTOMATED | | | | | | | COUNT | | | | | | + + + + + + + | GLOBULIN | 2020-11-28 | [facility] | 2.4 | g/dl | (missing) | | (G/DL) IN | 12:31 | Health | | | | | SER/PLAS | | System - | | | | | | | [facility] | | | | + + + + + + + | GLOBULIN | 2020-11-28 | [facility] | 2.4 | g/dl | (missing) | | (G/DL) IN | 12:31 | Health | | | | | SER/PLAS | | System - | | | | | | | [facility] | | | | + + + + + + + | LYMPHOCYTES | 2020-11-28 | [facility] | 2.7 | k/mcl | (missing) | | (10*3/UL) | 12:31 | Health | | | | | IN BLOOD BY | | System - | | | | | AUTOMATED | | [facility] | | | | | COUNT | | | | | | + + + + + + + | LYMPHOCYTES | 2020-11-28 | [facility] | 2.7 | k/mcl | (missing) | | (10*3/UL) | 12:31 | Health | | | | | IN BLOOD BY | | System - | | | | | AUTOMATED | | [facility] | | | | | COUNT | | | | | | + + + + + + + | CARBON | 2020-11-28 | [facility] | 24 | mmol/l | (missing) | | DIOXIDE | 12:31 | Health | | | | | (CO2), TOTAL | | System - | | | | | (MMOL/L) IN | | [facility] | | | | | SER/PLAS | | | | | | + + + + + + + | CARBON | 2020-11-28 | [facility] | 24 | mmol/l | (missing) | | DIOXIDE | 12:31 | Health | | | | | (CO2), TOTAL | | System - | | | | | (MMOL/L) IN | | [facility] | | | | | SER/PLAS | | | | | | + + + + + + + | ASPARTATE | 2020-11-28 | [facility] | 26 | u/l | (missing) | | AMINOTRANSFE | 12:31 | Health | | | | | RASE (SGOT) | | System - | | | | | (U/L) IN | | [facility] | | | | | SER/PLAS | | | | | | + + + + + + + | ASPARTATE | 2020-11-28 | [facility] | 26 | u/l | (missing) | | AMINOTRANSFE | 12:31 | Health | | | | | RASE (SGOT) | | System - | | | | | (U/L) IN | | [facility] | | | | | SER/PLAS | | | | | | + + + + + + + | ALANINE | 2020-11-28 | [facility] | 27 | u/l | (missing) | | AMINOTRANSFE | 12:31 | Health | | | | | RASE (SGPT) | | System - | | | | | (U/L) IN | | [facility] | | | | | SER/PLAS | | | | | | + + + + + + + | ALANINE | 2020-11-28 | [facility] | 27 | u/l | (missing) | | AMINOTRANSFE | 12:31 | Health | | | | | RASE (SGPT) | | System - | | | | | (U/L) IN | | [facility] | | | | | SER/PLAS | | | | | | + + + + + + + | POTASSIUM | 2020-11-28 | [facility] | 3.8 | mmol/l | (missing) | | (MMOL/L) IN | 12:31 | Health | | | | | SER/PLAS | | System - | | | | | | | [facility] | | | | + + + + + + + | POTASSIUM | 2020-11-28 | [facility] | 3.8 | mmol/l | (missing) | | (MMOL/L) IN | 1231 | Health | | | | | SER/PLAS | | System - | | | | | | | [facility] | | | | + + + + + + + | | 2020-11-28 | [facility] | 30.2 | % | (missing) | | LYMPHOCYTES/ | 12:31 | Health | | | | | 100 | | System - | | | | | LEUKOCYTES | | [facility] | | | | | IN BLOOD BY | | | | | | | AUTOMATED | | | | | | | COUNT | | | | | | + + + + + + + | | 2020-11-28 | [facility] | 30.2 | % | (missing) | | LYMPHOCYTES/ | 12:31 | Health | | | | | 100 | | System - | | | | | LEUKOCYTES | | [facility] | | | | | IN BLOOD BY | | | | | | | AUTOMATED | | | | | | | COUNT | | | | | | + + + + + + + | ERYTHROCYTE | 2020-11-28 | [facility] | 30.2 | pg | (missing) | | MEAN | 12:31 | Health | | | | | CORPUSCULAR | | System - | | | | | HEMOGLOBIN | | [facility] | | | | | (PG) BY | | | | | | | AUTOMATED | | | | | | | COUNT | | | | | | + + + + + + + | ERYTHROCYTE | 2020-11-28 | [facility] | 30.2 | pg | (missing) | | MEAN | 12:31 | Health | | | | | CORPUSCULAR | | System - | | | | | HEMOGLOBIN | | [facility] | | | | | (PG) BY | | | | | | | AUTOMATED | | | | | | | COUNT | | | | | | + + + + + + + | PLATELETS | 2020-11-28 | [facility] | 317 | k/mcl | (missing) | | (10*3/UL) IN | 12:31 | Health | | | | | BLOOD | | System - | | | | | AUTOMATED | | [facility] | | | | | COUNT | | | | | | + + + + + + + | PLATELETS | 2020-11-28 | [facility] | 317 | k/mcl | (missing) | | (10*3/UL) IN | 12:31 | Health | | | | | BLOOD | | System - | | | | | AUTOMATED | | [facility] | | | | | COUNT | | | | | | + + + + + + + | ERYTHROCYTE | 2020-11-28 | [facility] | 33.2 | g/dl | (missing) | | MEAN | 12:31 | Health | | | | | CORPUSCULAR | | System - | | | | | HEMOGLOBIN | | [facility] | | | | | CONCENTRATIO | | | | | | | N (G/DL) BY | | | | | | | AUTOMATED | | | | | | + + + + + + + | ERYTHROCYTE | 2020-11-28 | [facility] | 33.2 | g/dl | (missing) | | MEAN | 12:31 | Health | | | | | CORPUSCULAR | | System - | | | | | HEMOGLOBIN | | [facility] | | | | | CONCENTRATIO | | | | | | | N (G/DL) BY | | | | | | | AUTOMATED | | | | | | + + + + + + + | ALBUMIN | 2020-11-28 | [facility] | 4.3 | g/dl | (missing) | | (G/DL) IN | 12:31 | Health | | | | | SER/PLAS | | System - | | | | | | | [facility] | | | | + + + + + + + | ALBUMIN | 2020-11-28 | [facility] | 4.3 | g/dl | (missing) | | (G/DL) IN | 12:31 | Health | | | | | SER/PLAS | | System - | | | | | | | [facility] | | | | + + + + + + + | | 2020-11-28 | [facility] | 4.73 | m/mcl | (missing) | | ERYTHROCYTES | 12:31 | Health | | | | | (10*6/UL) | | System - | | | | | IN BLOOD BY | | [facility] | | | | | AUTOMATED | | | | | | | COUNT | | | | | | + + + + + + + | | 2020-11-28 | [facility] | 4.73 | m/mcl | (missing) | | ERYTHROCYTES | 12:31 | Health | | | | | (10*6/UL) | | System - | | | | | IN BLOOD BY | | [facility] | | | | | AUTOMATED | | | | | | | COUNT | | | | | | + + + + + + + | | 2020-11-28 | [facility] | 4.9 | % | (missing) | | MONOCYTES/10 | 12:31 | Health | | | | | 0 LEUKOCYTES | | System - | | | | | IN BLOOD BY | | [facility] | | | | | AUTOMATED | | | | | | | COUNT | | | | | | + + + + + + + | | 2020-11-28 | [facility] | 4.9 | % | (missing) | | MONOCYTES/10 | 12:31 | Health | | | | | 0 LEUKOCYTES | | System - | | | | | IN BLOOD BY | | [facility] | | | | | AUTOMATED | | | | | | | COUNT | | | | | | + + + + + + + | HEMATOCRIT | 2020-11-28 | [facility] | 43.1 | % | (missing) | | (%) IN BLOOD | 12:31 | Health | | | | | BY | | System - | | | | | AUTOMATED | | [facility] | | | | | COUNT | | | | | | + + + + + + + | HEMATOCRIT | 2020-11-28 | [facility] | 43.1 | % | (missing) | | (%) IN BLOOD | 12:31 | Health | | | | | BY | | System - | | | | | AUTOMATED | | [facility] | | | | | COUNT | | | | | | + + + + + + + | BLOOD UREA | 2020-11-28 | [facility] | 5 | mg/dl | (missing) | | NITROGEN | 12:31 | Health | | | | | (BUN) | | System - | | | | | (MG/DL) IN | | [facility] | | | | | SER/PLAS | | | | | | + + + + + + + | BLOOD UREA | 2020-11-28 | [facility] | 5 | mg/dl | (missing) | | NITROGEN | 12:31 | Health | | | | | (BUN) | | System - | | | | | (MG/DL) IN | | [facility] | | | | | SER/PLAS | | | | | | + + + + + + + | NEUTROPHILS | 2020-11-28 | [facility] | 5.6 | k/mcl | (missing) | | (10*3/UL) | 12:31 | Health | | | | | IN BLOOD BY | | System - | | | | | AUTOMATED | | [facility] | | | | | COUNT | | | | | | + + + + + + + | NEUTROPHILS | 2020-11-28 | [facility] | 5.6 | k/mcl | (missing) | | (10*3/UL) | 12:31 | Health | | | | | IN BLOOD BY | | System - | | | | | AUTOMATED | | [facility] | | | | | COUNT | | | | | | + + + + + + + | PROTEIN | 2020-11-28 | [facility] | 6.7 | g/dl | (missing) | | (G/DL) IN | 12:31 | Health | | | | | SER/PLAS | | System - | | | | | | | [facility] | | | | + + + + + + + | PROTEIN | 2020-11-28 | [facility] | 6.7 | g/dl | (missing) | | (G/DL) IN | 12:31 | Health | | | | | SER/PLAS | | System - | | | | | | | [facility] | | | | + + + + + + + | | 2020-11-28 | [facility] | 61.6 | % | (missing) | | NEUTROPHILS/ | 12:31 | Health | | | | | 100 | | System - | | | | | LEUKOCYTES | | [facility] | | | | | IN BLOOD BY | | | | | | | AUTOMATED | | | | | | | COUNT | | | | | | + + + + + + + | | 2020-11-28 | [facility] | 61.6 | % | (missing) | | NEUTROPHILS/ | 12:31 | Health | | | | | 100 | | System - | | | | | LEUKOCYTES | | [facility] | | | | | IN BLOOD BY | | | | | | | AUTOMATED | | | | | | | COUNT | | | | | | + + + + + + + | CALCIUM | 2020-11-28 | [facility] | 8.9 | mg/dl | (missing) | | (MG/DL) IN | 12:31 | Health | | | | | SER/PLAS | | System - | | | | | | | [facility] | | | | + + + + + + + | CALCIUM | 2020-11-28 | [facility] | 8.9 | mg/dl | (missing) | | (MG/DL) IN | 12:31 | Health | | | | | SER/PLAS | | System - | | | | | | | [facility] | | | | + + + + + + + | ALKALINE | 2020-11-28 | [facility] | 81 | u/l | (missing) | | PHOSPHATASE | 12:31 | Health | | | | | (U/L) IN | | System - | | | | | SER/PLAS | | [facility] | | | | + + + + + + + | ALKALINE | 2020-11-28 | [facility] | 81 | u/l | (missing) | | PHOSPHATASE | : | Health | | | | | (U/L) IN | | System - | | | | | SER/PLAS | | [facility] | | | | + + + + + + + | | 2020-11-28 | [facility] | 9.1 | k/mcl | (missing) | | LEUKOCYTES(1 | : | Health | | | | | 0*3/UL) IN | | System - | | | | | BLOOD BY | | [facility] | | | | | AUTOMATED | | | | | | | COUNT | | | | | | + + + + + + + | | 2020-11-28 | [facility] | 9.1 | k/mcl | (missing) | | LEUKOCYTES(1 | 12:31 | Health | | | | | 0*3/UL) IN | | System - | | | | | BLOOD BY | | [facility] | | | | | AUTOMATED | | | | | | | COUNT | | | | | | + + + + + + + | PLATELET | 2020-11-28 | [facility] | 9.2 | fl | (missing) | | MEAN VOLUME | 12:31 | Health | | | | | (FL) IN | | System - | | | | | BLOOD BY | | [facility] | | | | | AUTOMATED | | | | | | | COUNT | | | | | | + + + + + + + | PLATELET | 2020-11-28 | [facility] | 9.2 | fl | (missing) | | MEAN VOLUME | 12:31 | Health | | | | | (FL) IN | | System - | | | | | BLOOD BY | | [facility] | | | | | AUTOMATED | | | | | | | COUNT | | | | | | + + + + + + + | ERYTHROCYTE | 2020-11-28 | [facility] | 91.1 | fl | (missing) | | MEAN | 12:31 | Health | | | | | CORPUSCULAR | | System - | | | | | VOLUME (FL) | | [facility] | | | | | BY AUTOMATED | | | | | | | COUNT | | | | | | + + + + + + + | ERYTHROCYTE | 2020-11-28 | [facility] | 91.1 | fl | (missing) | | MEAN | 12:31 | Health | | | | | CORPUSCULAR | | System - | | | | | VOLUME (FL) | | [facility] | | | | | BY AUTOMATED | | | | | | | COUNT | | | | | | + + + + + + + | GLUCOSE, | 2020-11-28 | [facility] | 94 | mg/dl | (missing) | | RANDOM | 12:31 | Health | | | | | (MG/DL) IN | | System - | | | | | SER/PLAS | | [facility] | | | | + + + + + + + | GLUCOSE, | 2020-11-28 | [facility] | 94 | mg/dl | (missing) | | RANDOM | 12:31 | Health | | | | | (MG/DL) IN | | System - | | | | | SER/PLAS | | [facility] | | | | + + + + + + + | | 2020-11-28 | [facility] | Negative | (missing) | (missing) | | BARBITURATES | 12:31 | Health | | | | | PRESENCE IN | | System - | | | | | URINE BY | | [facility] | | | | | SCREEN | | | | | | | METHOD | | | | | | + + + + + + + | | 2020-11-28 | [facility] | Negative | (missing) | (missing) | | BENZODIAZEPI | 12:31 | Health | | | | | SURYA | | System - | | | | | (PRESENCE) | | [facility] | | | | | IN URINE BY | | | | | | | SCREEN | | | | | | | METHOD | | | | | | + + + + + + + | COCAINE | 2020-11-28 | [facility] | Negative | (missing) | (missing) | | (PRESENCE) | 12:31 | Health | | | | | IN URINE BY | | System - | | | | | SCREEN | | [facility] | | | | | METHOD | | | | | | + + + + + + + | INFLUENZA A | 2020-11-28 | [facility] | Negative | (missing) | (missing) | | (CEPHEID) | 12:31 | Health | | | | | | | System - | | | | | | | [facility] | | | | + + + + + + + | INFLUENZA B | 2020-11-28 | [facility] | Negative | (missing) | (missing) | | (CEPHEID) | 12:31 | Health | | | | | | | System - | | | | | | | [facility] | | | | + + + + + + + | METHADONE | 2020-11-28 | [facility] | Negative | (missing) | (missing) | | (PRESENCE) | 12:31 | Health | | | | | IN URINE BY | | System - | | | | | SCREEN | | [facility] | | | | | METHOD | | | | | | + + + + + + + | | 2020-11-28 | [facility] | Negative | (missing) | (missing) | | METHAMPHETAM | 12:31 | Health | | | | | INE | | System - | | | | | (PRESENCE) | | [facility] | | | | | IN URINE BY | | | | | | | SCREEN | | | | | | | METHOD | | | | | | + + + + + + + | OPIATES | 2020-11-28 | [facility] | Negative | (missing) | (missing) | | (PRESENCE) | 12:31 | Health | | | | | IN URINE BY | | System - | | | | | SCREEN | | [facility] | | | | | METHOD | | | | | | + + + + + + + | OXYCODONE | 2020-11-28 | [facility] | Negative | (missing) | (missing) | | (PRESENCE) | 12:31 | Health | | | | | IN URINE BY | | System - | | | | | SCREEN | | [facility] | | | | | METHOD | | | | | | + + + + + + + | | 2020-11-28 | [facility] | Negative | (missing) | (missing) | | PHENCYCLIDIN | 12:31 | Health | | | | | E (PRESENCE) | | System - | | | | | IN URINE BY | | [facility] | | | | | SCREEN | | | | | | | METHOD | | | | | | + + + + + + + | RSV | 2020-11-28 | [facility] | Negative | (missing) | (missing) | | (CEPHEID) | 12:31 | Health | | | | | | | System - | | | | | | | [facility] | | | | + + + + + + + | SARS-COV-2 | 2020-11-28 | [facility] | Negative | (missing) | (missing) | | (COVID19) | 12:31 | Health | | | | | CEPHEID PCR | | System - | | | | | | | [facility] | | | | + + + + + + + | TRICYCLIC | 2020-11-28 | [facility] | Negative | (missing) | (missing) | | ANTIDEPRESSA | 12:31 | Health | | | | | NTS | | System - | | | | | (PRES[facility]) | | [facility] | | | | | IN URINE | | | | | | + + + + + + + | | 2020-11-28 | [facility] | Negative | (missing) | (missing) | | PHENCYCLIDIN | 12:31 | Health | | | | | E ([facility]) | | System - | | | | | IN URINE BY | | [facility] | | | | | SCREEN | | | | | | | METHOD | | | | | | + + + + + + + | OPIATES | 2020-11-28 | [facility] | Negative | (missing) | (missing) | | (PRESENCE) | 12:31 | Health | | | | | IN URINE BY | | System - | | | | | SCREEN | | [facility] | | | | | METHOD | | | | | | + + + + + + + | TRICYCLIC | 2020-11-28 | [facility] | Negative | (missing) | (missing) | | ANTIDEPRESSA | 12:31 | Health | | | | | NTS | | System - | | | | | (PRESENCE) | | [facility] | | | | | IN URINE | | | | | | + + + + + + + | AMPHETAMINE | 2020-11-28 | [facility] | Negative | (missing) | (missing) | | (PRESENCE) | 12:31 | Health | | | | | IN URINE BY | | System - | | | | | SCREEN | | [facility] | | | | | METHOD | | | | | | + + + + + + + | | 2020-11-28 | [facility] | Negative | (missing) | (missing) | | METHAMPHETAM | 12:31 | Health | | | | | INE | | System - | | | | | ([facility]) | | [facility] | | | | | IN URINE BY | | | | | | | SCREEN | | | | | | | METHOD | | | | | | + + + + + + + | OXYCODONE | 2020-11-28 | [facility] | Negative | (missing) | (missing) | | (PRESENCE) | 12:31 | Health | | | | | IN URINE BY | | System - | | | | | SCREEN | | [facility] | | | | | METHOD | | | | | | + + + + + + + | [facility] QUAL | 2020-11-28 | [facility] | Negative | (missing) | (missing) | | (CHORIOGONAD | 12:31 | Health | | | | | OTROPIN) IN | | System - | | | | | SER/PLAS | | [facility] | | | | + + + + + + + | INFLUENZA A | 2020-11-28 | [facility] | Negative | (missing) | (missing) | | (CEPHEID) | 12:31 | Health | | | | | | | System - | | | | | | | [facility] | | | | + + + + + + + | COCAINE | 2020-11-28 | [facility] | Negative | (missing) | (missing) | | ([facility]) | 12:31 | Health | | | | | IN URINE BY | | System - | | | | | SCREEN | | [facility] | | | | | METHOD | | | | | | + + + + + + + | | 2020-11-28 | [facility] | Negative | (missing) | (missing) | | BARBITURATES | 12:31 | Health | | | | | PRESENCE IN | | System - | | | | | URINE BY | | [facility] | | | | | SCREEN | | | | | | | METHOD | | | | | | + + + + + + + | | 2020-11-28 | [facility] | Negative | (missing) | (missing) | | BENZODIAZEPI | 12:31 | Health | | | | | SURYA | | System - | | | | | (PRESENCE) | | [facility] | | | | | IN URINE BY | | | | | | | SCREEN | | | | | | | METHOD | | | | | | + + + + + + + | METHADONE | 2020-11-28 | [facility] | Negative | (missing) | (missing) | | (PRESENCE) | 12:31 | Health | | | | | IN URINE BY | | System - | | | | | SCREEN | | [facility] | | | | | METHOD | | | | | | + + + + + + + | SARS-COV-2 | 2020-11-28 | [facility] | Negative | (missing) | (missing) | | (COVID19) | 12:31 | Health | | | | | CEPHEID PCR | | System - | | | | | | | [facility] | | | | + + + + + + + | [facility] QUAL | 2020-11-28 | [facility] | Negative | (missing) | (missing) | | (CHORIOGONAD | 12:31 | Health | | | | | OTROPIN) IN | | System - | | | | | SER/PLAS | | [facility] | | | | + + + + + + + | AMPHETAMINE | 2020-11-28 | [facility] | Negative | (missing) | (missing) | | (PRESENCE) | 12:31 | Health | | | | | IN URINE BY | | System - | | | | | SCREEN | | [facility] | | | | | METHOD | | | | | | + + + + + + + | THC | 2020-11-28 | [facility] | Presumptive | (missing) | (missing) | | (CANNABINOID | 12:31 | Health | Positive | | | | ) IN URINE | | System - | | | | | BY SCREEN | | [facility] | | | | | METHOD | | | | | | + + + + + + + | THC | 2020-11-28 | [facility] | Presumptive | (missing) | (missing) | | (CANNABINOID | 12:31 | Health | Positive | | | | ) IN URINE | | System - | | | | | BY SCREEN | | [facility] | | | | | METHOD | | | | | | + + + + + + + + + | Result panel 16 | + + + + + +--------+ + + | TSH | 2020-11-28 | [facility] | 2.62 | mciu/ml | (missing) | | (THYROTROPIN | 12:34 | Health | | | | | ) (UIU/ML) | | System - | | | | | IN SER/PLAS | | [facility] | | | | + + + +--------+ + + | TSH | 2020-11-28 | [facility] | 2.62 | mciu/ml | (missing) | | (THYROTROPIN | 12:34 | Health | | | | | ) (UIU/ML) | | System - | | | | | IN SER/PLAS | | [facility] | | | | + + + +--------+ + + + + | Result panel 17 | + + + + + + + + + | | 2021-01-23 | [facility] | Negative | (missing) | (missing) | | BARBITURATES | 12:09 | Health | | | | | PRESENCE IN | | System - | | | | | URINE BY | | [facility] | | | | | SCREEN | | | | | | | METHOD | | | | | | + + + + + + + | | 2021-01-23 | [facility] | Negative | (missing) | (missing) | | BENZODIAZEPI | 12:09 | Health | | | | | SURYA | | System - | | | | | (PRESENCE) | | [facility] | | | | | IN URINE BY | | | | | | | SCREEN | | | | | | | METHOD | | | | | | + + + + + + + | COCAINE | 2021-01-23 | [facility] | Negative | (missing) | (missing) | | (PRESENCE) | 12:09 | Health | | | | | IN URINE BY | | System - | | | | | SCREEN | | [facility] | | | | | METHOD | | | | | | + + + + + + + | METHADONE | 2021-01-23 | [facility] | Negative | (missing) | (missing) | | (PRESENCE) | 12:09 | Health | | | | | IN URINE BY | | System - | | | | | SCREEN | | [facility] | | | | | METHOD | | | | | | + + + + + + + | OPIATES | 2021-01-23 | [facility] | Negative | (missing) | (missing) | | (PRESENCE) | 12:09 | Health | | | | | IN URINE BY | | System - | | | | | SCREEN | | [facility] | | | | | METHOD | | | | | | + + + + + + + | OXYCODONE | 2021-01-23 | [facility] | Negative | (missing) | (missing) | | (PRESENCE) | 12:09 | Health | | | | | IN URINE BY | | System - | | | | | SCREEN | | [facility] | | | | | METHOD | | | | | | + + + + + + + | | 2021-01-23 | [facility] | Negative | (missing) | (missing) | | PHENCYCLIDIN | 12:09 | Health | | | | | E ([facility]) | | System - | | | | | IN URINE BY | | [facility] | | | | | SCREEN | | | | | | | METHOD | | | | | | + + + + + + + | TRICYCLIC | 2021-01-23 | [facility] | Negative | (missing) | (missing) | | ANTIDEPRESSA | 12:09 | Health | | | | | NTS | | System - | | | | | ([facility]) | | [facility] | | | | | IN URINE | | | | | | + + + + + + + | | 2021-01-23 | [facility] | Negative | (missing) | (missing) | | PHENCYCLIDIN | 12:09 | Health | | | | | E ([facility]) | | System - | | | | | IN URINE BY | | [facility] | | | | | SCREEN | | | | | | | METHOD | | | | | | + + + + + + + | OPIATES | 2021-01-23 | [facility] | Negative | (missing) | (missing) | | (PRESENCE) | 12:09 | Health | | | | | IN URINE BY | | System - | | | | | SCREEN | | [facility] | | | | | METHOD | | | | | | + + + + + + + | TRICYCLIC | 2021-01-23 | [facility] | Negative | (missing) | (missing) | | ANTIDEPRESSA | 12:09 | Health | | | | | NTS | | System - | | | | | (PRES[facility]) | | [facility] | | | | | IN URINE | | | | | | + + + + + + + | OXYCODONE | 2021-01-23 | [facility] | Negative | (missing) | (missing) | | ([facility]) | 12:09 | Health | | | | | IN URINE BY | | System - | | | | | SCREEN | | [facility] | | | | | METHOD | | | | | | + + + + + + + | COCAINE | 2021-01-23 | [facility] | Negative | (missing) | (missing) | | ([facility]) | 12:09 | Health | | | | | IN URINE BY | | System - | | | | | SCREEN | | [facility] | | | | | METHOD | | | | | | + + + + + + + | | 2021-01-23 | [facility] | Negative | (missing) | (missing) | | BARBITURATES | 12:09 | Health | | | | | PRESENCE IN | | System - | | | | | URINE BY | | [facility] | | | | | SCREEN | | | | | | | METHOD | | | | | | + + + + + + + | | 2021-01-23 | [facility] | Negative | (missing) | (missing) | | BENZODIAZEPI | 12:09 | Health | | | | | SURYA | | System - | | | | | ([facility]) | | [facility] | | | | | IN URINE BY | | | | | | | SCREEN | | | | | | | METHOD | | | | | | + + + + + + + | METHADONE | 2021-01-23 | [facility] | Negative | (missing) | (missing) | | ([facility]) | 12:09 | Health | | | | | IN URINE BY | | System - | | | | | SCREEN | | [facility] | | | | | METHOD | | | | | | + + + + + + + | | 2021-01-23 | [facility] | Presumptive | (missing) | (missing) | | METHAMPHETAM | 12:09 | Health | Positive | | | | INE | | System - | | | | | (PRESENCE) | | [facility] | | | | | IN URINE BY | | | | | | | SCREEN | | | | | | | METHOD | | | | | | + + + + + + + | THC | 2021-01-23 | [facility] | Presumptive | (missing) | (missing) | | (CANNABINOID | 12:09 | Health | Positive | | | | ) IN URINE | | System - | | | | | BY SCREEN | | [facility] | | | | | METHOD | | | | | | + + + + + + + | THC | 2021-01-23 | [facility] | Presumptive | (missing) | (missing) | | (CANNABINOID | 12:09 | Health | Positive | | | | ) IN URINE | | System - | | | | | BY SCREEN | | [facility] | | | | | METHOD | | | | | | + + + + + + + | AMPHETAMINE | 2021-01-23 | [facility] | Presumptive | (missing) | (missing) | | (PRESENCE) | 12:09 | Health | Positive | | | | IN URINE BY | | System - | | | | | SCREEN | | [facility] | | | | | METHOD | | | | | | + + + + + + + | | 2021-01-23 | [facility] | Presumptive | (missing) | (missing) | | METHAMPHETAM | 12:09 | Health | Positive | | | | INE | | System - | | | | | (PRESENCE) | | [facility] | | | | | IN URINE BY | | | | | | | SCREEN | | | | | | | METHOD | | | | | | + + + + + + + | AMPHETAMINE | 2021-01-23 | [facility] | Presumptive | (missing) | (missing) | | (PRESENCE) | 12:09 | Health | Positive | | | | IN URINE BY | | System - | | | | | SCREEN | | [facility] | | | | | METHOD | | | | | | + + + + + + + + + | Result panel 18 | + + + + + + + + + | EGFR | 2021-01-24 | [facility] | > | | (missing) | | (GLOMERULAR | 10:09 | Health | | ml/min/1.73m | | | FILTRATION | | System - | | ? | | | RATE) | | [facility] | | | | | ML/MIN/1.73 | | | | | | | SQ M. | | | | | | + + + + + + + | EGFR | 2021-01-24 | [facility] | > | | (missing) | | (GLOMERULAR | 10:09 | Health | | ml/min/1.73m | | | FILTRATION | | System - | | ? | | | RATE) | | [facility] | | | | | ML/MIN/1.73 | | | | | | | SQ M. | | | | | | + + + + + + + | NRBC/100 | 2021-01-24 | [facility] | 0.0 | % | (missing) | | WBCS BY | 10:09 | Health | | | | | AUTOMATED | | System - | | | | | COUNT | | [facility] | | | | + + + + + + + | NRBC/100 | 2021-01-24 | [facility] | 0.0 | % | (missing) | | WBCS BY | 10:09 | Health | | | | | AUTOMATED | | System - | | | | | COUNT | | [facility] | | | | + + + + + + + | | 2021-01-24 | [facility] | 0.0 | k/mcl | (missing) | | NRBC(10*3/UL | 10:09 | Health | | | | | ) IN BLOOD | | System - | | | | | BY AUTOMATED | | [facility] | | | | | COUNT | | | | | | + + + + + + + | | 2021-01-24 | [facility] | 0.0 | k/mcl | (missing) | | NRBC(10*3/UL | 10:09 | Health | | | | | ) IN BLOOD | | System - | | | | | BY AUTOMATED | | [facility] | | | | | COUNT | | | | | | + + + + + + + | IMMATURE | 2021-01-24 | [facility] | 0.04 | k/mcl | (missing) | | GRANULOCYTE | 10:09 | Health | | | | | (ABS) | | System - | | | | | | | [facility] | | | | + + + + + + + | IMMATURE | 2021-01-24 | [facility] | 0.04 | k/mcl | (missing) | | GRANULOCYTE | 10:09 | Health | | | | | (ABS) | | System - | | | | | | | [facility] | | | | + + + + + + + | BASOPHILS | 2021-01-24 | [facility] | 0.1 | k/mcl | (missing) | | (10*3/UL) IN | 10:09 | Health | | | | | BLOOD BY | | System - | | | | | AUTOMATED | | [facility] | | | | | COUNT | | | | | | + + + + + + + | EOSINOPHILS | 2021-01-24 | [facility] | 0.1 | k/mcl | (missing) | | (10*3/UL) | 10:09 | Health | | | | | IN BLOOD BY | | System - | | | | | AUTOMATED | | [facility] | | | | | COUNT | | | | | | + + + + + + + | BASOPHILS | 2021-01-24 | [facility] | 0.1 | k/mcl | (missing) | | (10*3/UL) IN | 10:09 | Health | | | | | BLOOD BY | | System - | | | | | AUTOMATED | | [facility] | | | | | COUNT | | | | | | + + + + + + + | EOSINOPHILS | 2021-01-24 | [facility] | 0.1 | k/mcl | (missing) | | (10*3/UL) | 10:09 | Health | | | | | IN BLOOD BY | | System - | | | | | AUTOMATED | | [facility] | | | | | COUNT | | | | | | + + + + + + + | BILIRUBIN | 2021-01-24 | [facility] | 0.2 | mg/dl | (missing) | | TOTAL | 10:09 | Health | | | | | (MG/DL) IN | | System - | | | | | SER/PLAS | | [facility] | | | | + + + + + + + | BILIRUBIN | 2021-01-24 | [facility] | 0.2 | mg/dl | (missing) | | TOTAL | 10:09 | Health | | | | | (MG/DL) IN | | System - | | | | | SER/PLAS | | [facility] | | | | + + + + + + + | IMMATURE | 2021-01-24 | [facility] | 0.4 | % | (missing) | | GRANULOCYTE | 10:09 | Health | | | | | % (AUTO) | | System - | | | | | | | [facility] | | | | + + + + + + + | IMMATURE | 2021-01-24 | [facility] | 0.4 | % | (missing) | | GRANULOCYTE | 10:09 | Health | | | | | % (AUTO) | | System - | | | | | | | [facility] | | | | + + + + + + + | D-DIMER, | 2021-01-24 | [facility] | 0.44 | mcg/ml feu | (missing) | | QUANTITATIVE | 10:09 | Health | | | | | (MCG/ML) | | System - | | | | | STAGO | | [facility] | | | | + + + + + + + | D-DIMER, | 2021-01-24 | [facility] | 0.44 | mcg/ml feu | (missing) | | QUANTITATIVE | 10:09 | Health | | | | | (MCG/ML) | | System - | | | | | STAGO | | [facility] | | | | + + + + + + + | | 2021-01-24 | [facility] | 0.5 | % | (missing) | | BASOPHILS/10 | 10:09 | Health | | | | | 0 LEUKOCYTES | | System - | | | | | IN BLOOD BY | | [facility] | | | | | AUTOMATED | | | | | | | COUNT | | | | | | + + + + + + + | | 2021-01-24 | [facility] | 0.5 | % | (missing) | | BASOPHILS/10 | 10:09 | Health | | | | | 0 LEUKOCYTES | | System - | | | | | IN BLOOD BY | | [facility] | | | | | AUTOMATED | | | | | | | COUNT | | | | | | + + + + + + + | MONOCYTES | 2021-01-24 | [facility] | 0.6 | k/mcl | (missing) | | (10*3/UL) IN | : | Health | | | | | BLOOD BY | | System - | | | | | AUTOMATED | | [facility] | | | | | COUNT | | | | | | + + + + + + + | MONOCYTES | 2021-01-24 | [facility] | 0.6 | k/mcl | (missing) | | (10*3/UL) IN | : | Health | | | | | BLOOD BY | | System - | | | | | AUTOMATED | | [facility] | | | | | COUNT | | | | | | + + + + + + + | CREATININE | 2021-01-24 | [facility] | 0.7 | mg/dl | (missing) | | (MG/DL) IN | : | Health | | | | | SER/PLAS | | System - | | | | | | | [facility] | | | | + + + + + + + | CREATININE | 2021-01-24 | [facility] | 0.7 | mg/dl | (missing) | | (MG/DL) IN | 10:09 | Health | | | | | SER/PLAS | | System - | | | | | | | [facility] | | | | + + + + + + + | | 2021-01-24 | [facility] | 1.2 | % | (missing) | | EOSINOPHILS/ | 10:09 | Health | | | | | 100 | | System - | | | | | LEUKOCYTES | | [facility] | | | | | IN BLOOD BY | | | | | | | AUTOMATED | | | | | | | COUNT | | | | | | + + + + + + + | | 2021-01-24 | [facility] | 1.2 | % | (missing) | | EOSINOPHILS/ | 10:09 | Health | | | | | 100 | | System - | | | | | LEUKOCYTES | | [facility] | | | | | IN BLOOD BY | | | | | | | AUTOMATED | | | | | | | COUNT | | | | | | + + + + + + + | | 2021-01-24 | [facility] | 1.63 | :1 | (missing) | | ALBUMIN/GLOB | 10:09 | Health | | | | | ULIN (A/G | | System - | | | | | RATIO) IN | | [facility] | | | | | SER/PLAS | | | | | | + + + + + + + | | 2021-01-24 | [facility] | 1.63 | :1 | (missing) | | ALBUMIN/GLOB | 10:09 | Health | | | | | ULIN (A/G | | System - | | | | | RATIO) IN | | [facility] | | | | | SER/PLAS | | | | | | + + + + + + + | BLOOD UREA | 2021-01-24 | [facility] | 10 | mg/dl | (missing) | | NITROGEN | 10:09 | Health | | | | | (BUN) | | System - | | | | | (MG/DL) IN | | [facility] | | | | | SER/PLAS | | | | | | + + + + + + + | BLOOD UREA | 2021-01-24 | [facility] | 10 | mg/dl | (missing) | | NITROGEN | 10:09 | Health | | | | | (BUN) | | System - | | | | | (MG/DL) IN | | [facility] | | | | | SER/PLAS | | | | | | + + + + + + + | CHLORIDE | 2021-01-24 | [facility] | 108 | mmol/l | (missing) | | (MMOL/L) IN | 10:09 | Health | | | | | SER/PLAS | | System - | | | | | | | [facility] | | | | + + + + + + + | CHLORIDE | 2021-01-24 | [facility] | 108 | mmol/l | (missing) | | (MMOL/L) IN | 10:09 | Health | | | | | SER/PLAS | | System - | | | | | | | [facility] | | | | + + + + + + + | ANION GAP | 2021-01-24 | [facility] | 13.0 | mmol/l | (missing) | | IN SER/PLAS | 10: | Health | | | | | | | System - | | | | | | | [facility] | | | | + + + + + + + | ANION GAP | 2021-01-24 | [facility] | 13.0 | mmol/l | (missing) | | IN SER/PLAS | 10:09 | Health | | | | | | | System - | | | | | | | [facility] | | | | + + + + + + + | ERYTHROCYTE | 2021-01-24 | [facility] | 13.1 | % | (missing) | | | 10:09 | Health | | | | | DISTRIBUTION | | System - | | | | | WIDTH | | [facility] | | | | | (RATIO) BY | | | | | | | AUTOMATED | | | | | | | COUNT | | | | | | + + + + + + + | ERYTHROCYTE | 2021-01-24 | [facility] | 13.1 | % | (missing) | | | 10:09 | Health | | | | | DISTRIBUTION | | System - | | | | | WIDTH | | [facility] | | | | | (RATIO) BY | | | | | | | AUTOMATED | | | | | | | COUNT | | | | | | + + + + + + + | HEMOGLOBIN | 2021-01-24 | [facility] | 14.5 | g/dl | (missing) | | (G/DL) IN | 10:09 | Health | | | | | BLOOD | | System - | | | | | | | [facility] | | | | + + + + + + + | HEMOGLOBIN | 2021-01-24 | [facility] | 14.5 | g/dl | (missing) | | (G/DL) IN | 10:09 | Health | | | | | BLOOD | | System - | | | | | | | [facility] | | | | + + + + + + + | SODIUM | 2021-01-24 | [facility] | 140 | mmol/l | (missing) | | (MMOL/L) IN | 10:09 | Health | | | | | SER/PLAS | | System - | | | | | | | [facility] | | | | + + + + + + + | SODIUM | 2021-01-24 | [facility] | 140 | mmol/l | (missing) | | (MMOL/L) IN | 10:09 | Health | | | | | SER/PLAS | | System - | | | | | | | [facility] | | | | + + + + + + + | ASPARTATE | 2021-01-24 | [facility] | 18 | u/l | (missing) | | AMINOTRANSFE | 10:09 | Health | | | | | RASE (SGOT) | | System - | | | | | (U/L) IN | | [facility] | | | | | SER/PLAS | | | | | | + + + + + + + | ASPARTATE | 2021-01-24 | [facility] | 18 | u/l | (missing) | | AMINOTRANSFE | 10:09 | Health | | | | | RASE (SGOT) | | System - | | | | | (U/L) IN | | [facility] | | | | | SER/PLAS | | | | | | + + + + + + + | CARBON | 2021-01-24 | [facility] | 19 | mmol/l | (missing) | | DIOXIDE | 10:09 | Health | | | | | (CO2), TOTAL | | System - | | | | | (MMOL/L) IN | | [facility] | | | | | SER/PLAS | | | | | | + + + + + + + | CARBON | 2021-01-24 | [facility] | 19 | mmol/l | (missing) | | DIOXIDE | 10:09 | Health | | | | | (CO2), TOTAL | | System - | | | | | (MMOL/L) IN | | [facility] | | | | | SER/PLAS | | | | | | + + + + + + + | ALANINE | 2021-01-24 | [facility] | 19 | u/l | (missing) | | AMINOTRANSFE | 10:09 | Health | | | | | RASE (SGPT) | | System - | | | | | (U/L) IN | | [facility] | | | | | SER/PLAS | | | | | | + + + + + + + | ALANINE | 2021-01-24 | [facility] | 19 | u/l | (missing) | | AMINOTRANSFE | 10: | Health | | | | | RASE (SGPT) | | System - | | | | | (U/L) IN | | [facility] | | | | | SER/PLAS | | | | | | + + + + + + + | GLOBULIN | 2021-01-24 | [facility] | 2.4 | g/dl | (missing) | | (G/DL) IN | 10: | Health | | | | | SER/PLAS | | System - | | | | | | | [facility] | | | | + + + + + + + | GLOBULIN | 2021-01-24 | [facility] | 2.4 | g/dl | (missing) | | (G/DL) IN | : | Health | | | | | SER/PLAS | | System - | | | | | | | [facility] | | | | + + + + + + + | LYMPHOCYTES | 2021-01-24 | [facility] | 2.8 | k/mcl | (missing) | | (10*3/UL) | : | Health | | | | | IN BLOOD BY | | System - | | | | | AUTOMATED | | [facility] | | | | | COUNT | | | | | | + + + + + + + | LYMPHOCYTES | 2021-01-24 | [facility] | 2.8 | k/mcl | (missing) | | (10*3/UL) | 10:09 | Health | | | | | IN BLOOD BY | | System - | | | | | AUTOMATED | | [facility] | | | | | COUNT | | | | | | + + + + + + + | | 2021-01-24 | [facility] | 29.0 | % | (missing) | | LYMPHOCYTES/ | 10: | Health | | | | | 100 | | System - | | | | | LEUKOCYTES | | [facility] | | | | | IN BLOOD BY | | | | | | | AUTOMATED | | | | | | | COUNT | | | | | | + + + + + + + | | 2021-01-24 | [facility] | 29.0 | % | (missing) | | LYMPHOCYTES/ | 10:09 | Health | | | | | 100 | | System - | | | | | LEUKOCYTES | | [facility] | | | | | IN BLOOD BY | | | | | | | AUTOMATED | | | | | | | COUNT | | | | | | + + + + + + + | ERYTHROCYTE | 2021-01-24 | [facility] | 29.3 | pg | (missing) | | MEAN | 10:09 | Health | | | | | CORPUSCULAR | | System - | | | | | HEMOGLOBIN | | [facility] | | | | | (PG) BY | | | | | | | AUTOMATED | | | | | | | COUNT | | | | | | + + + + + + + | ERYTHROCYTE | 2021-01-24 | [facility] | 29.3 | pg | (missing) | | MEAN | 10:09 | Health | | | | | CORPUSCULAR | | System - | | | | | HEMOGLOBIN | | [facility] | | | | | (PG) BY | | | | | | | AUTOMATED | | | | | | | COUNT | | | | | | + + + + + + + | ALBUMIN | 2021-01-24 | [facility] | 3.9 | g/dl | (missing) | | (G/DL) IN | 10:09 | Health | | | | | SER/PLAS | | System - | | | | | | | [facility] | | | | + + + + + + + | ALBUMIN | 2021-01-24 | [facility] | 3.9 | g/dl | (missing) | | (G/DL) IN | 10:09 | Health | | | | | SER/PLAS | | System - | | | | | | | [facility] | | | | + + + + + + + | ERYTHROCYTE | 2021-01-24 | [facility] | 33.0 | g/dl | (missing) | | MEAN | 10:09 | Health | | | | | CORPUSCULAR | | System - | | | | | HEMOGLOBIN | | [facility] | | | | | CONCENTRATIO | | | | | | | N (G/DL) BY | | | | | | | AUTOMATED | | | | | | + + + + + + + | ERYTHROCYTE | 2021-01-24 | [facility] | 33.0 | g/dl | (missing) | | MEAN | 10:09 | Health | | | | | CORPUSCULAR | | System - | | | | | HEMOGLOBIN | | [facility] | | | | | CONCENTRATIO | | | | | | | N (G/DL) BY | | | | | | | AUTOMATED | | | | | | + + + + + + + | PLATELETS | 2021-01-24 | [facility] | 384 | k/mcl | (missing) | | (10*3/UL) IN | : | Health | | | | | BLOOD | | System - | | | | | AUTOMATED | | [facility] | | | | | COUNT | | | | | | + + + + + + + | PLATELETS | 2021-01-24 | [facility] | 384 | k/mcl | (missing) | | (10*3/UL) IN | : | Health | | | | | BLOOD | | System - | | | | | AUTOMATED | | [facility] | | | | | COUNT | | | | | | + + + + + + + | POTASSIUM | 2021-01-24 | [facility] | 4.2 | mmol/l | (missing) | | (MMOL/L) IN | : | Health | | | | | SER/PLAS | | System - | | | | | | | [facility] | | | | + + + + + + + | POTASSIUM | 2021-01-24 | [facility] | 4.2 | mmol/l | (missing) | | (MMOL/L) IN | 10:09 | Health | | | | | SER/PLAS | | System - | | | | | | | [facility] | | | | + + + + + + + | | 2021-01-24 | [facility] | 4.95 | m/mcl | (missing) | | ERYTHROCYTES | 10:09 | Health | | | | | (10*6/UL) | | System - | | | | | IN BLOOD BY | | [facility] | | | | | AUTOMATED | | | | | | | COUNT | | | | | | + + + + + + + | | 2021-01-24 | [facility] | 4.95 | m/mcl | (missing) | | ERYTHROCYTES | 10:09 | Health | | | | | (10*6/UL) | | System - | | | | | IN BLOOD BY | | [facility] | | | | | AUTOMATED | | | | | | | COUNT | | | | | | + + + + + + + | HEMATOCRIT | 2021-01-24 | [facility] | 43.9 | % | (missing) | | (%) IN BLOOD | 10: | Health | | | | | BY | | System - | | | | | AUTOMATED | | [facility] | | | | | COUNT | | | | | | + + + + + + + | HEMATOCRIT | 2021-01-24 | [facility] | 43.9 | % | (missing) | | (%) IN BLOOD | 10:09 | Health | | | | | BY | | System - | | | | | AUTOMATED | | [facility] | | | | | COUNT | | | | | | + + + + + + + | ALKALINE | 2021-01-24 | [facility] | 59 | u/l | (missing) | | PHOSPHATASE | 10:09 | Health | | | | | (U/L) IN | | System - | | | | | SER/PLAS | | [facility] | | | | + + + + + + + | ALKALINE | 2021-01-24 | [facility] | 59 | u/l | (missing) | | PHOSPHATASE | 10:09 | Health | | | | | (U/L) IN | | System - | | | | | SER/PLAS | | [facility] | | | | + + + + + + + | NEUTROPHILS | 2021-01-24 | [facility] | 6.1 | k/mcl | (missing) | | (10*3/UL) | 10:09 | Health | | | | | IN BLOOD BY | | System - | | | | | AUTOMATED | | [facility] | | | | | COUNT | | | | | | + + + + + + + | NEUTROPHILS | 2021-01-24 | [facility] | 6.1 | k/mcl | (missing) | | (10*3/UL) | 10:09 | Health | | | | | IN BLOOD BY | | System - | | | | | AUTOMATED | | [facility] | | | | | COUNT | | | | | | + + + + + + + | PROTEIN | 2021-01-24 | [facility] | 6.3 | g/dl | (missing) | | (G/DL) IN | 10:09 | Health | | | | | SER/PLAS | | System - | | | | | | | [facility] | | | | + + + + + + + | PROTEIN | 2021-01-24 | [facility] | 6.3 | g/dl | (missing) | | (G/DL) IN | 10: | Health | | | | | SER/PLAS | | System - | | | | | | | [facility] | | | | + + + + + + + | | 2021-01-24 | [facility] | 6.5 | % | (missing) | | MONOCYTES/10 | 10:09 | Health | | | | | 0 LEUKOCYTES | | System - | | | | | IN BLOOD BY | | [facility] | | | | | AUTOMATED | | | | | | | COUNT | | | | | | + + + + + + + | | 2021-01-24 | [facility] | 6.5 | % | (missing) | | MONOCYTES/10 | 10:09 | Health | | | | | 0 LEUKOCYTES | | System - | | | | | IN BLOOD BY | | [facility] | | | | | AUTOMATED | | | | | | | COUNT | | | | | | + + + + + + + | | 2021-01-24 | [facility] | 62.4 | % | (missing) | | NEUTROPHILS/ | 10:09 | Health | | | | | 100 | | System - | | | | | LEUKOCYTES | | [facility] | | | | | IN BLOOD BY | | | | | | | AUTOMATED | | | | | | | COUNT | | | | | | + + + + + + + | | 2021-01-24 | [facility] | 62.4 | % | (missing) | | NEUTROPHILS/ | 10:09 | Health | | | | | 100 | | System - | | | | | LEUKOCYTES | | [facility] | | | | | IN BLOOD BY | | | | | | | AUTOMATED | | | | | | | COUNT | | | | | | + + + + + + + | ERYTHROCYTE | 2021-01-24 | [facility] | 88.7 | fl | (missing) | | MEAN | 10:09 | Health | | | | | CORPUSCULAR | | System - | | | | | VOLUME (FL) | | [facility] | | | | | BY AUTOMATED | | | | | | | COUNT | | | | | | + + + + + + + | ERYTHROCYTE | 2021-01-24 | [facility] | 88.7 | fl | (missing) | | MEAN | 10:09 | Health | | | | | CORPUSCULAR | | System - | | | | | VOLUME (FL) | | [facility] | | | | | BY AUTOMATED | | | | | | | COUNT | | | | | | + + + + + + + | CALCIUM | 2021-01-24 | [facility] | 9.1 | mg/dl | (missing) | | (MG/DL) IN | 10:09 | Health | | | | | SER/PLAS | | System - | | | | | | | [facility] | | | | + + + + + + + | CALCIUM | 2021-01-24 | [facility] | 9.1 | mg/dl | (missing) | | (MG/DL) IN | 10:09 | Health | | | | | SER/PLAS | | System - | | | | | | | [facility] | | | | + + + + + + + | | 2021-01-24 | [facility] | 9.8 | k/mcl | (missing) | | LEUKOCYTES(1 | : | Health | | | | | 0*3/UL) IN | | System - | | | | | BLOOD BY | | [facility] | | | | | AUTOMATED | | | | | | | COUNT | | | | | | + + + + + + + | | 2021-01-24 | [facility] | 9.8 | k/mcl | (missing) | | LEUKOCYTES(1 | : | Health | | | | | 0*3/UL) IN | | System - | | | | | BLOOD BY | | [facility] | | | | | AUTOMATED | | | | | | | COUNT | | | | | | + + + + + + + | PLATELET | 2021-01-24 | [facility] | 9.9 | fl | (missing) | | MEAN VOLUME | 10:09 | Health | | | | | (FL) IN | | System - | | | | | BLOOD BY | | [facility] | | | | | AUTOMATED | | | | | | | COUNT | | | | | | + + + + + + + | PLATELET | 2021-01-24 | [facility] | 9.9 | fl | (missing) | | MEAN VOLUME | 10:09 | Health | | | | | (FL) IN | | System - | | | | | BLOOD BY | | [facility] | | | | | AUTOMATED | | | | | | | COUNT | | | | | | + + + + + + + | GLUCOSE, | 2021-01-24 | [facility] | 98 | mg/dl | (missing) | | RANDOM | 10:09 | Health | | | | | (MG/DL) IN | | System - | | | | | SER/PLAS | | [facility] | | | | + + + + + + + | GLUCOSE, | 2021-01-24 | [facility] | 98 | mg/dl | (missing) | | RANDOM | 10:09 | Health | | | | | (MG/DL) IN | | System - | | | | | SER/PLAS | | [facility] | | | | + + + + + + + | [facility] QUAL | 2021-01-24 | [facility] | Negative | (missing) | (missing) | | (CHORIOGONAD | 10: | Health | | | | | OTROPIN) IN | | System - | | | | | SER/PLAS | | [facility] | | | | + + + + + + + | [facility] QUAL | 2021-01-24 | [facility] | Negative | (missing) | (missing) | | (CHORIOGONAD | 10:09 | Health | | | | | OTROPIN) IN | | System - | | | | | SER/PLAS | | [facility] | | | | + + + + + + + + + | Result panel 19 | + + + + + + + + + | ALCOHOL | 2021-01-24 | [facility] | < | g/dl | (missing) | | (G/DL) IN | 10:11 | Health | | | | | SER/PLAS | | System - | | | | | | | [facility] | | | | + + + + + + + | ALCOHOL | 2021-01-24 | [facility] | < | g/dl | (missing) | | (G/DL) IN | 10:11 | Health | | | | | SER/PLAS | | System - | | | | | | | [facility] | | | | + + + + + + + | INFLUENZA A | 2021-01-24 | [facility] | Negative | (missing) | (missing) | | (CEPHEID) | 10:11 | Health | | | | | | | System - | | | | | | | [facility] | | | | + + + + + + + | INFLUENZA B | 2021-01-24 | [facility] | Negative | (missing) | (missing) | | (CEPHEID) | 10:11 | Health | | | | | | | System - | | | | | | | [facility] | | | | + + + + + + + | RSV | 2021-01-24 | [facility] | Negative | (missing) | (missing) | | (CEPHEID) | 10:11 | Health | | | | | | | System - | | | | | | | [facility] | | | | + + + + + + + | INFLUENZA A | 2021-01-24 | [facility] | Negative | (missing) | (missing) | | (CEPHEID) | 10:11 | Health | | | | | | | System - | | | | | | | [facility] | | | | + + + + + + + | INFLUENZA B | 2021-01-24 | [facility] | Negative | (missing) | (missing) | | (CEPHEID) | 10:11 | Health | | | | | | | System - | | | | | | | [facility] | | | | + + + + + + + | RSV | 2021-01-24 | [facility] | Negative | (missing) | (missing) | | (CEPHEID) | 10:11 | Health | | | | | | | System - | | | | | | | [facility] | | | | + + + + + + + | SARS-COV-2 | 2021-01-24 | [facility] | Positive | (missing) | (missing) | | (COVID19) | 10:11 | Health | | | | | CEPHEID PCR | | System - | | | | | | | [facility] | | | | + + + + + + + | SARS-COV-2 | 2021-01-24 | [facility] | Positive | (missing) | (missing) | | (COVID19) | 10:11 | Health | | | | | CEPHEID PCR | | System - | | | | | | | [facility] | | | | + + + + + + + + + | Result panel 20 | + + + + + +-------+---------+ + | POCT | 2021-01-24 | [facility] | 0.7 | mg/dl | (missing) | | CREATININE | 10:40 | Health | | | | | BLOOD | | System - | | | | | | | [facility] | | | | + + + +-------+---------+ + + + | Result panel 21 | + + + + + +--------+---------+ + | POCT | 2021-01-24 | [facility] | 0.03 | ng/ml | (missing) | | TROPONIN I | 10:50 | Health | | | | | | | System - | | | | | | | [facility] | | | | + + + +--------+---------+ + | POCT | 2021-01-24 | [facility] | 0.03 | ng/ml | (missing) | | TROPONIN I | 10:50 | Health | | | | | | | System - | | | | | | | [facility] | | | | + + + +--------+---------+ + + + | Result panel 22 | + + + + + + + + + | EGFR | 2021-01-26 | [facility] | > | | (missing) | | (GLOMERULAR | 07:37 | Health | | ml/min/1.73m | | | FILTRATION | | System - | | ? | | | RATE) | | [facility] | | | | | ML/MIN/1.73 | | | | | | | SQ M. | | | | | | + + + + + + + | EGFR | 2021-01-26 | [facility] | > | | (missing) | | (GLOMERULAR | 07:37 | Health | | ml/min/1.73m | | | FILTRATION | | System - | | ? | | | RATE) | | [facility] | | | | | ML/MIN/1.73 | | | | | | | SQ M. | | | | | | + + + + + + + | ALCOHOL | 2021-01-26 | [facility] | < | g/dl | (missing) | | (G/DL) IN | 07:37 | Health | | | | | SER/PLAS | | System - | | | | | | | [facility] | | | | + + + + + + + | ALCOHOL | 2021-01-26 | [facility] | < | g/dl | (missing) | | (G/DL) IN | 07:37 | Health | | | | | SER/PLAS | | System - | | | | | | | [facility] | | | | + + + + + + + | | 2021-01-26 | [facility] | < | mcg/ml | (missing) | | ACETAMINOPHE | 07:37 | Health | | | | | N (UG/ML) IN | | System - | | | | | SER/PLAS | | [facility] | | | | + + + + + + + | | 2021-01-26 | [facility] | < | mcg/ml | (missing) | | ACETAMINOPHE | 07:37 | Health | | | | | N (UG/ML) IN | | System - | | | | | SER/PLAS | | [facility] | | | | + + + + + + + | SALICYLATE | 2021-01-26 | [facility] | < | mg/dl | (missing) | | (MG/DL) IN | 07:37 | Health | | | | | SER/PLAS | | System - | | | | | | | [facility] | | | | + + + + + + + | BILIRUBIN | 2021-01-26 | [facility] | < | mg/dl | (missing) | | TOTAL | 07:37 | Health | | | | | (MG/DL) IN | | System - | | | | | SER/PLAS | | [facility] | | | | + + + + + + + | BILIRUBIN | 2021-01-26 | [facility] | < | mg/dl | (missing) | | TOTAL | 07:37 | Health | | | | | (MG/DL) IN | | System - | | | | | SER/PLAS | | [facility] | | | | + + + + + + + | SALICYLATE | 2021-01-26 | [facility] | < | mg/dl | (missing) | | (MG/DL) IN | 07:37 | Health | | | | | SER/PLAS | | System - | | | | | | | [facility] | | | | + + + + + + + | NRBC/100 | 2021-01-26 | [facility] | 0.0 | % | (missing) | | WBCS BY | 07:37 | Health | | | | | AUTOMATED | | System - | | | | | COUNT | | [facility] | | | | + + + + + + + | NRBC/100 | 2021-01-26 | [facility] | 0.0 | % | (missing) | | WBCS BY | 07:37 | Health | | | | | AUTOMATED | | System - | | | | | COUNT | | [facility] | | | | + + + + + + + | | 2021-01-26 | [facility] | 0.0 | k/mcl | (missing) | | NRBC(10*3/UL | 07:37 | Health | | | | | ) IN BLOOD | | System - | | | | | BY AUTOMATED | | [facility] | | | | | COUNT | | | | | | + + + + + + + | | 2021-01-26 | [facility] | 0.0 | k/mcl | (missing) | | NRBC(10*3/UL | 07:37 | Health | | | | | ) IN BLOOD | | System - | | | | | BY AUTOMATED | | [facility] | | | | | COUNT | | | | | | + + + + + + + | IMMATURE | 2021-01-26 | [facility] | 0.05 | k/mcl | (missing) | | GRANULOCYTE | 07:37 | Health | | | | | (ABS) | | System - | | | | | | | [facility] | | | | + + + + + + + | IMMATURE | 2021-01-26 | [facility] | 0.05 | k/mcl | (missing) | | GRANULOCYTE | 07:37 | Health | | | | | (ABS) | | System - | | | | | | | [facility] | | | | + + + + + + + | BASOPHILS | 2021-01-26 | [facility] | 0.1 | k/mcl | (missing) | | (10*3/UL) IN | 07:37 | Health | | | | | BLOOD BY | | System - | | | | | AUTOMATED | | [facility] | | | | | COUNT | | | | | | + + + + + + + | BASOPHILS | 2021-01-26 | [facility] | 0.1 | k/mcl | (missing) | | (10*3/UL) IN | 07:37 | Health | | | | | BLOOD BY | | System - | | | | | AUTOMATED | | [facility] | | | | | COUNT | | | | | | + + + + + + + | EOSINOPHILS | 2021-01-26 | [facility] | 0.2 | k/mcl | (missing) | | (10*3/UL) | 07:37 | Health | | | | | IN BLOOD BY | | System - | | | | | AUTOMATED | | [facility] | | | | | COUNT | | | | | | + + + + + + + | EOSINOPHILS | 2021-01-26 | [facility] | 0.2 | k/mcl | (missing) | | (10*3/UL) | 07:37 | Health | | | | | IN BLOOD BY | | System - | | | | | AUTOMATED | | [facility] | | | | | COUNT | | | | | | + + + + + + + | | 2021-01-26 | [facility] | 0.2-1.0 | mg/dl | (missing) | | UROBILINOGEN | 07:37 | Health | | | | | (MG/DL) IN | | System - | | | | | URINE BY | | [facility] | | | | | TEST STRIP | | | | | | + + + + + + + | | 2021-01-26 | [facility] | 0.2-1.0 | mg/dl | (missing) | | UROBILINOGEN | 07:37 | Health | | | | | (MG/DL) IN | | System - | | | | | URINE BY | | [facility] | | | | | TEST STRIP | | | | | | + + + + + + + | IMMATURE | 2021-01-26 | [facility] | 0.4 | % | (missing) | | GRANULOCYTE | 07:37 | Health | | | | | % (AUTO) | | System - | | | | | | | [facility] | | | | + + + + + + + | IMMATURE | 2021-01-26 | [facility] | 0.4 | % | (missing) | | GRANULOCYTE | 07:37 | Health | | | | | % (AUTO) | | System - | | | | | | | [facility] | | | | + + + + + + + | | 2021-01-26 | [facility] | 0.6 | % | (missing) | | BASOPHILS/10 | 07:37 | Health | | | | | 0 LEUKOCYTES | | System - | | | | | IN BLOOD BY | | [facility] | | | | | AUTOMATED | | | | | | | COUNT | | | | | | + + + + + + + | | 2021-01-26 | [facility] | 0.6 | % | (missing) | | BASOPHILS/10 | 07:37 | Health | | | | | 0 LEUKOCYTES | | System - | | | | | IN BLOOD BY | | [facility] | | | | | AUTOMATED | | | | | | | COUNT | | | | | | + + + + + + + | MONOCYTES | 2021-01-26 | [facility] | 0.7 | k/mcl | (missing) | | (10*3/UL) IN | 07:37 | Health | | | | | BLOOD BY | | System - | | | | | AUTOMATED | | [facility] | | | | | COUNT | | | | | | + + + + + + + | MONOCYTES | 2021-01-26 | [facility] | 0.7 | k/mcl | (missing) | | (10*3/UL) IN | 07:37 | Health | | | | | BLOOD BY | | System - | | | | | AUTOMATED | | [facility] | | | | | COUNT | | | | | | + + + + + + + | CREATININE | 2021-01-26 | [facility] | 0.8 | mg/dl | (missing) | | (MG/DL) IN | 07:37 | Health | | | | | SER/PLAS | | System - | | | | | | | [facility] | | | | + + + + + + + | CREATININE | 2021-01-26 | [facility] | 0.8 | mg/dl | (missing) | | (MG/DL) IN | 07:37 | Health | | | | | SER/PLAS | | System - | | | | | | | [facility] | | | | + + + + + + + | SPECIFIC | 2021-01-26 | [facility] | 1.031 | (missing) | (missing) | | GRAVITY OF | 07:37 | Health | | | | | URINE BY | | System - | | | | | AUTOMATED | | [facility] | | | | | TEST STRIP | | | | | | + + + + + + + | SPECIFIC | 2021-01-26 | [facility] | 1.031 | (missing) | (missing) | | GRAVITY OF | 07:37 | Health | | | | | URINE BY | | System - | | | | | AUTOMATED | | [facility] | | | | | TEST STRIP | | | | | | + + + + + + + | | 2021-01-26 | [facility] | 1.6 | % | (missing) | | EOSINOPHILS/ | 07:37 | Health | | | | | 100 | | System - | | | | | LEUKOCYTES | | [facility] | | | | | IN BLOOD BY | | | | | | | AUTOMATED | | | | | | | COUNT | | | | | | + + + + + + + | | 2021-01-26 | [facility] | 1.6 | % | (missing) | | EOSINOPHILS/ | 07:37 | Health | | | | | 100 | | System - | | | | | LEUKOCYTES | | [facility] | | | | | IN BLOOD BY | | | | | | | AUTOMATED | | | | | | | COUNT | | | | | | + + + + + + + | | 2021-01-26 | [facility] | 1.67 | :1 | (missing) | | ALBUMIN/GLOB | 07:37 | Health | | | | | ULIN (A/G | | System - | | | | | RATIO) IN | | [facility] | | | | | SER/PLAS | | | | | | + + + + + + + | | 2021-01-26 | [facility] | 1.67 | :1 | (missing) | | ALBUMIN/GLOB | 07:37 | Health | | | | | ULIN (A/G | | System - | | | | | RATIO) IN | | [facility] | | | | | SER/PLAS | | | | | | + + + + + + + | SQUAMOUS | 2021-01-26 | [facility] | 10 | /hpf | (missing) | | EPITHELIAL | 07:37 | Health | | | | | CELLS | | System - | | | | | (#/HPF) IN | | [facility] | | | | | URINE | | | | | | | SEDIMENT | | | | | | + + + + + + + | SQUAMOUS | 2021-01-26 | [facility] | 10 | /hpf | (missing) | | EPITHELIAL | 07:37 | Health | | | | | CELLS | | System - | | | | | (#/HPF) IN | | [facility] | | | | | URINE | | | | | | | SEDIMENT | | | | | | + + + + + + + | CHLORIDE | 2021-01-26 | [facility] | 105 | mmol/l | (missing) | | (MMOL/L) IN | 07:37 | Health | | | | | SER/PLAS | | System - | | | | | | | [facility] | | | | + + + + + + + | CHLORIDE | 2021-01-26 | [facility] | 105 | mmol/l | (missing) | | (MMOL/L) IN | 07:37 | Health | | | | | SER/PLAS | | System - | | | | | | | [facility] | | | | + + + + + + + | WBC | 2021-01-26 | [facility] | 11 | /hpf | (missing) | | (LEUKOCYTE) | 07:37 | Health | | | | | (#/HPF) IN | | System - | | | | | URINE | | [facility] | | | | | SEDIMENT | | | | | | + + + + + + + | WBC | 2021-01-26 | [facility] | 11 | /hpf | (missing) | | (LEUKOCYTE) | 07:37 | Health | | | | | (#/HPF) IN | | System - | | | | | URINE | | [facility] | | | | | SEDIMENT | | | | | | + + + + + + + | ANION GAP | 2021-01-26 | [facility] | 11.0 | mmol/l | (missing) | | IN SER/PLAS | 07:37 | Health | | | | | | | System - | | | | | | | [facility] | | | | + + + + + + + | ANION GAP | 2021-01-26 | [facility] | 11.0 | mmol/l | (missing) | | IN SER/PLAS | 07:37 | Health | | | | | | | System - | | | | | | | [facility] | | | | + + + + + + + | | 2021-01-26 | [facility] | 11.3 | k/mcl | (missing) | | LEUKOCYTES(1 | 07:37 | Health | | | | | 0*3/UL) IN | | System - | | | | | BLOOD BY | | [facility] | | | | | AUTOMATED | | | | | | | COUNT | | | | | | + + + + + + + | | 2021-01-26 | [facility] | 11.3 | k/mcl | (missing) | | LEUKOCYTES(1 | 07:37 | Health | | | | | 0*3/UL) IN | | System - | | | | | BLOOD BY | | [facility] | | | | | AUTOMATED | | | | | | | COUNT | | | | | | + + + + + + + | GLUCOSE, | 2021-01-26 | [facility] | 110 | mg/dl | (missing) | | RANDOM | 07:37 | Health | | | | | (MG/DL) IN | | System - | | | | | SER/PLAS | | [facility] | | | | + + + + + + + | GLUCOSE, | 2021-01-26 | [facility] | 110 | mg/dl | (missing) | | RANDOM | 07:37 | Health | | | | | (MG/DL) IN | | System - | | | | | SER/PLAS | | [facility] | | | | + + + + + + + | ERYTHROCYTE | 2021-01-26 | [facility] | 12.8 | % | (missing) | | | 07:37 | Health | | | | | DISTRIBUTION | | System - | | | | | WIDTH | | [facility] | | | | | (RATIO) BY | | | | | | | AUTOMATED | | | | | | | COUNT | | | | | | + + + + + + + | ERYTHROCYTE | 2021-01-26 | [facility] | 12.8 | % | (missing) | | | 07:37 | Health | | | | | DISTRIBUTION | | System - | | | | | WIDTH | | [facility] | | | | | (RATIO) BY | | | | | | | AUTOMATED | | | | | | | COUNT | | | | | | + + + + + + + | SODIUM | 2021-01-26 | [facility] | 138 | mmol/l | (missing) | | (MMOL/L) IN | 07:37 | Health | | | | | SER/PLAS | | System - | | | | | | | [facility] | | | | + + + + + + + | SODIUM | 2021-01-26 | [facility] | 138 | mmol/l | (missing) | | (MMOL/L) IN | 07:37 | Health | | | | | SER/PLAS | | System - | | | | | | | [facility] | | | | + + + + + + + | BLOOD UREA | 2021-01-26 | [facility] | 14 | mg/dl | (missing) | | NITROGEN | 07:37 | Health | | | | | (BUN) | | System - | | | | | (MG/DL) IN | | [facility] | | | | | SER/PLAS | | | | | | + + + + + + + | BLOOD UREA | 2021-01-26 | [facility] | 14 | mg/dl | (missing) | | NITROGEN | 07:37 | Health | | | | | (BUN) | | System - | | | | | (MG/DL) IN | | [facility] | | | | | SER/PLAS | | | | | | + + + + + + + | HEMOGLOBIN | 2021-01-26 | [facility] | 14.8 | g/dl | (missing) | | (G/DL) IN | 07:37 | Health | | | | | BLOOD | | System - | | | | | | | [facility] | | | | + + + + + + + | HEMOGLOBIN | 2021-01-26 | [facility] | 14.8 | g/dl | (missing) | | (G/DL) IN | 07:37 | Health | | | | | BLOOD | | System - | | | | | | | [facility] | | | | + + + + + + + | ASPARTATE | 2021-01-26 | [facility] | 17 | u/l | (missing) | | AMINOTRANSFE | 07:37 | Health | | | | | RASE (SGOT) | | System - | | | | | (U/L) IN | | [facility] | | | | | SER/PLAS | | | | | | + + + + + + + | ASPARTATE | 2021-01-26 | [facility] | 17 | u/l | (missing) | | AMINOTRANSFE | 07:37 | Health | | | | | RASE (SGOT) | | System - | | | | | (U/L) IN | | [facility] | | | | | SER/PLAS | | | | | | + + + + + + + | PROTEIN IN | 2021-01-26 | [facility] | 2 | (missing) | (missing) | | URINE BY | 07:37 | Health | | | | | TEST STRIP | | System - | | | | | | | [facility] | | | | + + + + + + + | PROTEIN IN | 2021-01-26 | [facility] | 2 | (missing) | (missing) | | URINE BY | 07:37 | Health | | | | | TEST STRIP | | System - | | | | | | | [facility] | | | | + + + + + + + | RBC (#/HPF) | 2021-01-26 | [facility] | 2 | /hpf | (missing) | | IN URINE | 07:37 | Health | | | | | SEDIMENT | | System - | | | | | | | [facility] | | | | + + + + + + + | RBC (#/HPF) | 2021-01-26 | [facility] | 2 | /hpf | (missing) | | IN URINE | 07:37 | Health | | | | | SEDIMENT | | System - | | | | | | | [facility] | | | | + + + + + + + | TSH | 2021-01-26 | [facility] | 2.11 | mciu/ml | (missing) | | (THYROTROPIN | 07:37 | Health | | | | | ) (UIU/ML) | | System - | | | | | IN SER/PLAS | | [facility] | | | | + + + + + + + | TSH | 2021-01-26 | [facility] | 2.11 | mciu/ml | (missing) | | (THYROTROPIN | 07:37 | Health | | | | | ) (UIU/ML) | | System - | | | | | IN SER/PLAS | | [facility] | | | | + + + + + + + | GLOBULIN | 2021-01-26 | [facility] | 2.4 | g/dl | (missing) | | (G/DL) IN | 07:37 | Health | | | | | SER/PLAS | | System - | | | | | | | [facility] | | | | + + + + + + + | GLOBULIN | 2021-01-26 | [facility] | 2.4 | g/dl | (missing) | | (G/DL) IN | 07:37 | Health | | | | | SER/PLAS | | System - | | | | | | | [facility] | | | | + + + + + + + | LYMPHOCYTES | 2021-01-26 | [facility] | 2.9 | k/mcl | (missing) | | (10*3/UL) | 07:37 | Health | | | | | IN BLOOD BY | | System - | | | | | AUTOMATED | | [facility] | | | | | COUNT | | | | | | + + + + + + + | LYMPHOCYTES | 2021-01-26 | [facility] | 2.9 | k/mcl | (missing) | | (10*3/UL) | 07:37 | Health | | | | | IN BLOOD BY | | System - | | | | | AUTOMATED | | [facility] | | | | | COUNT | | | | | | + + + + + + + | ALANINE | 2021-01-26 | [facility] | 20 | u/l | (missing) | | AMINOTRANSFE | 07:37 | Health | | | | | RASE (SGPT) | | System - | | | | | (U/L) IN | | [facility] | | | | | SER/PLAS | | | | | | + + + + + + + | ALANINE | 2021-01-26 | [facility] | 20 | u/l | (missing) | | AMINOTRANSFE | 07:37 | Health | | | | | RASE (SGPT) | | System - | | | | | (U/L) IN | | [facility] | | | | | SER/PLAS | | | | | | + + + + + + + | CARBON | 2021-01-26 | [facility] | 22 | mmol/l | (missing) | | DIOXIDE | 07:37 | Health | | | | | (CO2), TOTAL | | System - | | | | | (MMOL/L) IN | | [facility] | | | | | SER/PLAS | | | | | | + + + + + + + | CARBON | 2021-01-26 | [facility] | 22 | mmol/l | (missing) | | DIOXIDE | 07:37 | Health | | | | | (CO2), TOTAL | | System - | | | | | (MMOL/L) IN | | [facility] | | | | | SER/PLAS | | | | | | + + + + + + + | | 2021-01-26 | [facility] | 25.5 | % | (missing) | | LYMPHOCYTES/ | 07:37 | Health | | | | | 100 | | System - | | | | | LEUKOCYTES | | [facility] | | | | | IN BLOOD BY | | | | | | | AUTOMATED | | | | | | | COUNT | | | | | | + + + + + + + | | 2021-01-26 | [facility] | 25.5 | % | (missing) | | LYMPHOCYTES/ | 07:37 | Health | | | | | 100 | | System - | | | | | LEUKOCYTES | | [facility] | | | | | IN BLOOD BY | | | | | | | AUTOMATED | | | | | | | COUNT | | | | | | + + + + + + + | ERYTHROCYTE | 2021-01-26 | [facility] | 29.4 | pg | (missing) | | MEAN | 07:37 | Health | | | | | CORPUSCULAR | | System - | | | | | HEMOGLOBIN | | [facility] | | | | | (PG) BY | | | | | | | AUTOMATED | | | | | | | COUNT | | | | | | + + + + + + + | ERYTHROCYTE | 2021-01-26 | [facility] | 29.4 | pg | (missing) | | MEAN | 07:37 | Health | | | | | CORPUSCULAR | | System - | | | | | HEMOGLOBIN | | [facility] | | | | | (PG) BY | | | | | | | AUTOMATED | | | | | | | COUNT | | | | | | + + + + + + + | BACTERIA | 2021-01-26 | [facility] | 3 | /hpf | (missing) | | (#/HPF) IN | 07:37 | Health | | | | | URINE | | System - | | | | | | | [facility] | | | | + + + + + + + | BACTERIA | 2021-01-26 | [facility] | 3 | /hpf | (missing) | | (#/HPF) IN | 07:37 | Health | | | | | URINE | | System - | | | | | | | [facility] | | | | + + + + + + + | ERYTHROCYTE | 2021-01-26 | [facility] | 32.4 | g/dl | (missing) | | MEAN | 07:37 | Health | | | | | CORPUSCULAR | | System - | | | | | HEMOGLOBIN | | [facility] | | | | | CONCENTRATIO | | | | | | | N (G/DL) BY | | | | | | | AUTOMATED | | | | | | + + + + + + + | ERYTHROCYTE | 2021-01-26 | [facility] | 32.4 | g/dl | (missing) | | MEAN | 07:37 | Health | | | | | CORPUSCULAR | | System - | | | | | HEMOGLOBIN | | [facility] | | | | | CONCENTRATIO | | | | | | | N (G/DL) BY | | | | | | | AUTOMATED | | | | | | + + + + + + + | PLATELETS | 2021-01-26 | [facility] | 378 | k/mcl | (missing) | | (10*3/UL) IN | 07:37 | Health | | | | | BLOOD | | System - | | | | | AUTOMATED | | [facility] | | | | | COUNT | | | | | | + + + + + + + | PLATELETS | 2021-01-26 | [facility] | 378 | k/mcl | (missing) | | (10*3/UL) IN | 07:37 | Health | | | | | BLOOD | | System - | | | | | AUTOMATED | | [facility] | | | | | COUNT | | | | | | + + + + + + + | ALBUMIN | 2021-01-26 | [facility] | 4.0 | g/dl | (missing) | | (G/DL) IN | 07:37 | Health | | | | | SER/PLAS | | System - | | | | | | | [facility] | | | | + + + + + + + | ALBUMIN | 2021-01-26 | [facility] | 4.0 | g/dl | (missing) | | (G/DL) IN | 07:37 | Health | | | | | SER/PLAS | | System - | | | | | | | [facility] | | | | + + + + + + + | POTASSIUM | 2021-01-26 | [facility] | 4.4 | mmol/l | (missing) | | (MMOL/L) IN | 07:37 | Health | | | | | SER/PLAS | | System - | | | | | | | [facility] | | | | + + + + + + + | POTASSIUM | 2021-01-26 | [facility] | 4.4 | mmol/l | (missing) | | (MMOL/L) IN | 07:37 | Health | | | | | SER/PLAS | | System - | | | | | | | [facility] | | | | + + + + + + + | HEMATOCRIT | 2021-01-26 | [facility] | 45.7 | % | (missing) | | (%) IN BLOOD | 07:37 | Health | | | | | BY | | System - | | | | | AUTOMATED | | [facility] | | | | | COUNT | | | | | | + + + + + + + | HEMATOCRIT | 2021-01-26 | [facility] | 45.7 | % | (missing) | | (%) IN BLOOD | 07:37 | Health | | | | | BY | | System - | | | | | AUTOMATED | | [facility] | | | | | COUNT | | | | | | + + + + + + + | PH OF URINE | 2021-01-26 | [facility] | 5.0 | (missing) | (missing) | | | 07:37 | Health | | | | | | | System - | | | | | | | [facility] | | | | + + + + + + + | PH OF URINE | 2021-01-26 | [facility] | 5.0 | (missing) | (missing) | | | 07:37 | Health | | | | | | | System - | | | | | | | [facility] | | | | + + + + + + + | | 2021-01-26 | [facility] | 5.04 | m/mcl | (missing) | | ERYTHROCYTES | 07:37 | Health | | | | | (10*6/UL) | | System - | | | | | IN BLOOD BY | | [facility] | | | | | AUTOMATED | | | | | | | COUNT | | | | | | + + + + + + + | | 2021-01-26 | [facility] | 5.04 | m/mcl | (missing) | | ERYTHROCYTES | 07:37 | Health | | | | | (10*6/UL) | | System - | | | | | IN BLOOD BY | | [facility] | | | | | AUTOMATED | | | | | | | COUNT | | | | | | + + + + + + + | | 2021-01-26 | [facility] | 6.3 | % | (missing) | | MONOCYTES/10 | 07:37 | Health | | | | | 0 LEUKOCYTES | | System - | | | | | IN BLOOD BY | | [facility] | | | | | AUTOMATED | | | | | | | COUNT | | | | | | + + + + + + + | | 2021-01-26 | [facility] | 6.3 | % | (missing) | | MONOCYTES/10 | 07:37 | Health | | | | | 0 LEUKOCYTES | | System - | | | | | IN BLOOD BY | | [facility] | | | | | AUTOMATED | | | | | | | COUNT | | | | | | + + + + + + + | PROTEIN | 2021-01-26 | [facility] | 6.4 | g/dl | (missing) | | (G/DL) IN | 07:37 | Health | | | | | SER/PLAS | | System - | | | | | | | [facility] | | | | + + + + + + + | PROTEIN | 2021-01-26 | [facility] | 6.4 | g/dl | (missing) | | (G/DL) IN | 07:37 | Health | | | | | SER/PLAS | | System - | | | | | | | [facility] | | | | + + + + + + + | ALKALINE | 2021-01-26 | [facility] | 62 | u/l | (missing) | | PHOSPHATASE | 07:37 | Health | | | | | (U/L) IN | | System - | | | | | SER/PLAS | | [facility] | | | | + + + + + + + | ALKALINE | 2021-01-26 | [facility] | 62 | u/l | (missing) | | PHOSPHATASE | 07:37 | Health | | | | | (U/L) IN | | System - | | | | | SER/PLAS | | [facility] | | | | + + + + + + + | | 2021-01-26 | [facility] | 65.6 | % | (missing) | | NEUTROPHILS/ | 07:37 | Health | | | | | 100 | | System - | | | | | LEUKOCYTES | | [facility] | | | | | IN BLOOD BY | | | | | | | AUTOMATED | | | | | | | COUNT | | | | | | + + + + + + + | | 2021-01-26 | [facility] | 65.6 | % | (missing) | | NEUTROPHILS/ | 07:37 | Health | | | | | 100 | | System - | | | | | LEUKOCYTES | | [facility] | | | | | IN BLOOD BY | | | | | | | AUTOMATED | | | | | | | COUNT | | | | | | + + + + + + + | NEUTROPHILS | 2021-01-26 | [facility] | 7.4 | k/mcl | (missing) | | (10*3/UL) | 07:37 | Health | | | | | IN BLOOD BY | | System - | | | | | AUTOMATED | | [facility] | | | | | COUNT | | | | | | + + + + + + + | NEUTROPHILS | 2021-01-26 | [facility] | 7.4 | k/mcl | (missing) | | (10*3/UL) | 07:37 | Health | | | | | IN BLOOD BY | | System - | | | | | AUTOMATED | | [facility] | | | | | COUNT | | | | | | + + + + + + + | CALCIUM | 2021-01-26 | [facility] | 9.2 | mg/dl | (missing) | | (MG/DL) IN | 07:37 | Health | | | | | SER/PLAS | | System - | | | | | | | [facility] | | | | + + + + + + + | CALCIUM | 2021-01-26 | [facility] | 9.2 | mg/dl | (missing) | | (MG/DL) IN | 07:37 | Health | | | | | SER/PLAS | | System - | | | | | | | [facility] | | | | + + + + + + + | PLATELET | 2021-01-26 | [facility] | 9.7 | fl | (missing) | | MEAN VOLUME | 07:37 | Health | | | | | (FL) IN | | System - | | | | | BLOOD BY | | [facility] | | | | | AUTOMATED | | | | | | | COUNT | | | | | | + + + + + + + | PLATELET | 2021-01-26 | [facility] | 9.7 | fl | (missing) | | MEAN VOLUME | 07:37 | Health | | | | | (FL) IN | | System - | | | | | BLOOD BY | | [facility] | | | | | AUTOMATED | | | | | | | COUNT | | | | | | + + + + + + + | ERYTHROCYTE | 2021-01-26 | [facility] | 90.7 | fl | (missing) | | MEAN | 07:37 | Health | | | | | CORPUSCULAR | | System - | | | | | VOLUME (FL) | | [facility] | | | | | BY AUTOMATED | | | | | | | COUNT | | | | | | + + + + + + + | ERYTHROCYTE | 2021-01-26 | [facility] | 90.7 | fl | (missing) | | MEAN | 07:37 | Health | | | | | CORPUSCULAR | | System - | | | | | VOLUME (FL) | | [facility] | | | | | BY AUTOMATED | | | | | | | COUNT | | | | | | + + + + + + + | CLARITY OF | 2021-01-26 | [facility] | Cloudy | (missing) | (missing) | | URINE | 07:37 | Health | | | | | | | System - | | | | | | | [facility] | | | | + + + + + + + | CLARITY OF | 2021-01-26 | [facility] | Cloudy | (missing) | (missing) | | URINE | 07:37 | Health | | | | | | | System - | | | | | | | [facility] | | | | + + + + + + + | ASA | 2021-01-26 | [facility] | Negative | (missing) | (missing) | | (ASCORBIC | 07:37 | Health | | | | | ACID) IN | | System - | | | | | URINE | | [facility] | | | | + + + + + + + | | 2021-01-26 | [facility] | Negative | (missing) | (missing) | | BARBITURATES | 07:37 | Health | | | | | PRESENCE IN | | System - | | | | | URINE BY | | [facility] | | | | | SCREEN | | | | | | | METHOD | | | | | | + + + + + + + | COCAINE | 2021-01-26 | [facility] | Negative | (missing) | (missing) | | (PRESENCE) | 07:37 | Health | | | | | IN URINE BY | | System - | | | | | SCREEN | | [facility] | | | | | METHOD | | | | | | + + + + + + + | GLUCOSE IN | 2021-01-26 | [facility] | Negative | (missing) | (missing) | | URINE | 07:37 | Health | | | | | | | System - | | | | | | | [facility] | | | | + + + + + + + | HEMOGLOBIN | 2021-01-26 | [facility] | Negative | (missing) | (missing) | | PRESENCE IN | 07:37 | Health | | | | | URINE | | System - | | | | | | | [facility] | | | | + + + + + + + | METHADONE | 2021-01-26 | [facility] | Negative | (missing) | (missing) | | (PRESENCE) | 07:37 | Health | | | | | IN URINE BY | | System - | | | | | SCREEN | | [facility] | | | | | METHOD | | | | | | + + + + + + + | NITRITE | 2021-01-26 | [facility] | Negative | (missing) | (missing) | | PRESENCE IN | 07:37 | Health | | | | | URINE | | System - | | | | | | | [facility] | | | | + + + + + + + | OPIATES | 2021-01-26 | [facility] | Negative | (missing) | (missing) | | (PRESENCE) | 07:37 | Health | | | | | IN URINE BY | | System - | | | | | SCREEN | | [facility] | | | | | METHOD | | | | | | + + + + + + + | OXYCODONE | 2021-01-26 | [facility] | Negative | (missing) | (missing) | | (PRESENCE) | 07:37 | Health | | | | | IN URINE BY | | System - | | | | | SCREEN | | [facility] | | | | | METHOD | | | | | | + + + + + + + | | 2021-01-26 | [facility] | Negative | (missing) | (missing) | | PHENCYCLIDIN | 07:37 | Health | | | | | E (PRESENCE) | | System - | | | | | IN URINE BY | | [facility] | | | | | SCREEN | | | | | | | METHOD | | | | | | + + + + + + + | TRICYCLIC | 2021-01-26 | [facility] | Negative | (missing) | (missing) | | ANTIDEPRESSA | 07:37 | Health | | | | | NTS | | System - | | | | | (PRESENCE) | | [facility] | | | | | IN URINE | | | | | | + + + + + + + | | 2021-01-26 | [facility] | Negative | (missing) | (missing) | | PHENCYCLIDIN | 07:37 | Health | | | | | E (PRESENCE) | | System - | | | | | IN URINE BY | | [facility] | | | | | SCREEN | | | | | | | METHOD | | | | | | + + + + + + + | ASA | 2021-01-26 | [facility] | Negative | (missing) | (missing) | | (ASCORBIC | 07:37 | Health | | | | | ACID) IN | | System - | | | | | URINE | | [facility] | | | | + + + + + + + | OPIATES | 2021-01-26 | [facility] | Negative | (missing) | (missing) | | (PRESENCE) | 07:37 | Health | | | | | IN URINE BY | | System - | | | | | SCREEN | | [facility] | | | | | METHOD | | | | | | + + + + + + + | TRICYCLIC | 2021-01-26 | [facility] | Negative | (missing) | (missing) | | ANTIDEPRESSA | 07:37 | Health | | | | | NTS | | System - | | | | | (PRESENCE) | | [facility] | | | | | IN URINE | | | | | | + + + + + + + | OXYCODONE | 2021-01-26 | [facility] | Negative | (missing) | (missing) | | (PRESENCE) | 07:37 | Health | | | | | IN URINE BY | | System - | | | | | SCREEN | | [facility] | | | | | METHOD | | | | | | + + + + + + + | [facility] QUAL | 2021-01-26 | [facility] | Negative | (missing) | (missing) | | (CHORIOGONAD | 07:37 | Health | | | | | OTROPIN) IN | | System - | | | | | SER/PLAS | | [facility] | | | | + + + + + + + | GLUCOSE IN | 2021-01-26 | [facility] | Negative | (missing) | (missing) | | URINE | 07:37 | Health | | | | | | | System - | | | | | | | [facility] | | | | + + + + + + + | COCAINE | 2021-01-26 | [facility] | Negative | (missing) | (missing) | | (PRESENCE) | 07:37 | Health | | | | | IN URINE BY | | System - | | | | | SCREEN | | [facility] | | | | | METHOD | | | | | | + + + + + + + | NITRITE | 2021-01-26 | [facility] | Negative | (missing) | (missing) | | PRESENCE IN | 07:37 | Health | | | | | URINE | | System - | | | | | | | [facility] | | | | + + + + + + + | | 2021-01-26 | [facility] | Negative | (missing) | (missing) | | BARBITURATES | 07:37 | Health | | | | | PRESENCE IN | | System - | | | | | URINE BY | | [facility] | | | | | SCREEN | | | | | | | METHOD | | | | | | + + + + + + + | METHADONE | 2021-01-26 | [facility] | Negative | (missing) | (missing) | | (PRESENCE) | 07:37 | Health | | | | | IN URINE BY | | System - | | | | | SCREEN | | [facility] | | | | | METHOD | | | | | | + + + + + + + | HEMOGLOBIN | 2021-01-26 | [facility] | Negative | (missing) | (missing) | | PRESENCE IN | 07:37 | Health | | | | | URINE | | System - | | | | | | | [facility] | | | | + + + + + + + | [facility] QUAL | 2021-01-26 | [facility] | Negative | (missing) | (missing) | | (CHORIOGONAD | 07:37 | Health | | | | | OTROPIN) IN | | System - | | | | | SER/PLAS | | [facility] | | | | + + + + + + + | BILIRUBIN, | 2021-01-26 | [facility] | Positive | (missing) | (missing) | | TOTAL | 07:37 | Health | | | | | PRESENCE IN | | System - | | | | | URINE | | [facility] | | | | + + + + + + + | BILIRUBIN, | 2021-01-26 | [facility] | Positive | (missing) | (missing) | | TOTAL | 07:37 | Health | | | | | PRESENCE IN | | System - | | | | | URINE | | [facility] | | | | + + + + + + + | | 2021-01-26 | [facility] | Presumptive | (missing) | (missing) | | BENZODIAZEPI | 07:37 | Health | Positive | | | | SURYA | | System - | | | | | (PRESENCE) | | [facility] | | | | | IN URINE BY | | | | | | | SCREEN | | | | | | | METHOD | | | | | | + + + + + + + | | 2021-01-26 | [facility] | Presumptive | (missing) | (missing) | | METHAMPHETAM | 07:37 | Health | Positive | | | | INE | | System - | | | | | (PRESENCE) | | [facility] | | | | | IN URINE BY | | | | | | | SCREEN | | | | | | | METHOD | | | | | | + + + + + + + | THC | 2021-01-26 | [facility] | Presumptive | (missing) | (missing) | | (CANNABINOID | 07:37 | Health | Positive | | | | ) IN URINE | | System - | | | | | BY SCREEN | | [facility] | | | | | METHOD | | | | | | + + + + + + + | THC | 2021-01-26 | [facility] | Presumptive | (missing) | (missing) | | (CANNABINOID | 07:37 | Health | Positive | | | | ) IN URINE | | System - | | | | | BY SCREEN | | [facility] | | | | | METHOD | | | | | | + + + + + + + | AMPHETAMINE | 2021-01-26 | [facility] | Presumptive | (missing) | (missing) | | (PRESENCE) | 07:37 | Health | Positive | | | | IN URINE BY | | System - | | | | | SCREEN | | [facility] | | | | | METHOD | | | | | | + + + + + + + | | 2021-01-26 | [facility] | Presumptive | (missing) | (missing) | | METHAMPHETAM | 07:37 | Health | Positive | | | | INE | | System - | | | | | (PRESENCE) | | [facility] | | | | | IN URINE BY | | | | | | | SCREEN | | | | | | | METHOD | | | | | | + + + + + + + | | 2021-01-26 | [facility] | Presumptive | (missing) | (missing) | | BENZODIAZEPI | 07:37 | Health | Positive | | | | SURYA | | System - | | | | | (PRESENCE) | | [facility] | | | | | IN URINE BY | | | | | | | SCREEN | | | | | | | METHOD | | | | | | + + + + + + + | AMPHETAMINE | 2021-01-26 | [facility] | Presumptive | (missing) | (missing) | | (PRESENCE) | 07:37 | Health | Positive | | | | IN URINE BY | | System - | | | | | SCREEN | | [facility] | | | | | METHOD | | | | | | + + + + + + + | KETONES IN | 2021-01-26 | [facility] | Trace | (missing) | (missing) | | URINE | 07:37 | Health | | | | | | | System - | | | | | | | [facility] | | | | + + + + + + + | LEUKOCYTE | 2021-01-26 | [facility] | Trace | (missing) | (missing) | | ESTERASE | 07:37 | Health | | | | | PRESENCE IN | | System - | | | | | URINE BY | | [facility] | | | | | TEST STRIP | | | | | | + + + + + + + | MUCUS | 2021-01-26 | [facility] | Trace | (missing) | (missing) | | (#/HPF) IN | 07:37 | Health | | | | | URINE | | System - | | | | | SEDIMENT | | [facility] | | | | + + + + + + + | MUCUS | 2021-01-26 | [facility] | Trace | (missing) | (missing) | | (#/HPF) IN | 07:37 | Health | | | | | URINE | | System - | | | | | SEDIMENT | | [facility] | | | | + + + + + + + | KETONES IN | 2021-01-26 | [facility] | Trace | (missing) | (missing) | | URINE | 07:37 | Health | | | | | | | System - | | | | | | | [facility] | | | | + + + + + + + | LEUKOCYTE | 2021-01-26 | [facility] | Trace | (missing) | (missing) | | ESTERASE | 07:37 | Health | | | | | PRESENCE IN | | System - | | | | | URINE BY | | [facility] | | | | | TEST STRIP | | | | | | + + + + + + + | COLOR OF | 2021-01-26 | [facility] | Yellow | (missing) | (missing) | | URINE | 07:37 | Health | | | | | | | System - | | | | | | | [facility] | | | | + + + + + + + | COLOR OF | 2021-01-26 | [facility] | Yellow | (missing) | (missing) | | URINE | 07:37 | Health | | | | | | | System - | | | | | | | [facility] | | | | + + + + + + + + + | Result panel 23 | + + + + + + + + + | | 2021-01-26 | [facility] | (missing) | (missing) | (missing) | | (unavailable | 07:38 | Health | | | | | ) | | System - | | | | | | | [facility] | | | | + + + + + + + | | 2021-01-26 | [facility] | 1. No acute | (missing) | (missing) | | (unavailable | 07:38 | Health | | | | | ) | | System - | radiographic | | | | | | [facility] | abnormality | | | | | | | of the | | | | | | | chest. | | | + + + + + + + | | 2021-01-26 | [facility] | BONE/SOFT | (missing) | (missing) | | (unavailable | 07:38 | Health | TISSUES: The | | | | ) | | System - | osseous | | | | | | [facility] | structures | | | | | | | are intact | | | | | | | and | | | | | | | unremarkable | | | | | | | for age. | | | | | | | There is no | | | | | | | soft tissue | | | | | | | abnormality. | | | + + + + + + + | | 2021-01-26 | [facility] | COMPARISON: | (missing) | (missing) | | (unavailable | 07:38 | Health | 07/11/2020 | | | | ) | | System - | | | | | | | [facility] | | | | + + + + + + + | | 2021-01-26 | [facility] | Electronical | (missing) | (missing) | | (unavailable | 07:38 | Health | ly signed | | | | ) | | System - | by: | | | | | | [facility] | José | | | | | | | MD [facility] | | | | | | | on | | | | | | | 01/26/2021 | | | | | | | 8:05 AM at | | | | | | | workstation | | | | | | | [id number] | | | + + + + + + + | | 2021-01-26 | [facility] | FINDINGS: | (missing) | (missing) | | (unavailable | 07:38 | Health | | | | | ) | | System - | | | | | | | [facility] | | | | + + + + + + + | | 2021-01-26 | [facility] | HEART: The | (missing) | (missing) | | (unavailable | 07:38 | Health | cardiac | | | | ) | | System - | silhouette | | | | | | [facility] | is not | | | | | | | enlarged. | | | + + + + + + + | | 2021-01-26 | [facility] | | (missing) | (missing) | | (unavailable | 07:38 | Health | INDICATIONS: | | | | ) | | System - | SOB, COVID | | | | | | [facility] | | | | + + + + + + + | | 2021-01-26 | [facility] | LUNGS: | (missing) | (missing) | | (unavailable | 07:38 | Health | Portable AP | | | | ) | | System - | technique | | | | | | [facility] | accentuates | | | | | | | the | | | | | | | pulmonary | | | | | | | vascular | | | | | | | markings. No | | | | | | | focal | | | | | | | consolidatio | | | | | | | n or | | | | | | | suspicious | | | | | | | pulmonary | | | | | | | nodule. | | | + + + + + + + | | 2021-01-26 | [facility] | MEDIASTINUM | (missing) | (missing) | | (unavailable | 07:38 | Health | AND SINDHU: | | | | ) | | System - | The | | | | | | [facility] | mediastinum | | | | | | | is | | | | | | | unremarkable | | | | | | | . | | | + + + + + + + | | 2021-01-26 | [facility] | PLEURA: | (missing) | (missing) | | (unavailable | 07:38 | Health | There is no | | | | ) | | System - | pleural | | | | | | [facility] | effusion or | | | | | | | pneumothorax | | | | | | | . | | | + + + + + + + | | 2021-01-26 | [facility] | PROCEDURE: | (missing) | (missing) | | (unavailable | 07:38 | Health | CHEST - ONE | | | | ) | | System - | VIEW | | | | | | [facility] | | | | + + + + + + + | | 2021-01-26 | [facility] | | (missing) | (missing) | | (unavailable | 07:38 | Health | Procedure(s) | | | | ) | | System - | : * No | | | | | | [facility] | procedures | | | | | | | listed * | | | + + + + + + + + + | Result panel 24 | + + + + + + + + + | | 2021-01-26 | [facility] | 0.2-1.0 | mg/dl | (missing) | | UROBILINOGEN | 08:27 | Health | | | | | (MG/DL) IN | | System - | | | | | URINE BY | | [facility] | | | | | TEST STRIP | | | | | | + + + + + + + | SPECIFIC | 2021-01-26 | [facility] | 1.031 | (missing) | (missing) | | GRAVITY OF | 08:27 | Health | | | | | URINE BY | | System - | | | | | AUTOMATED | | [facility] | | | | | TEST STRIP | | | | | | + + + + + + + | SQUAMOUS | 2021-01-26 | [facility] | 10 | /hpf | (missing) | | EPITHELIAL | 08:27 | Health | | | | | CELLS | | System - | | | | | (#/HPF) IN | | [facility] | | | | | URINE | | | | | | | SEDIMENT | | | | | | + + + + + + + | WBC | 2021-01-26 | [facility] | 11 | /hpf | (missing) | | (LEUKOCYTE) | 08:27 | Health | | | | | (#/HPF) IN | | System - | | | | | URINE | | [facility] | | | | | SEDIMENT | | | | | | + + + + + + + | PROTEIN IN | 2021-01-26 | [facility] | 2 | (missing) | (missing) | | URINE BY | 08:27 | Health | | | | | TEST STRIP | | System - | | | | | | | [facility] | | | | + + + + + + + | RBC (#/HPF) | 2021-01-26 | [facility] | 2 | /hpf | (missing) | | IN URINE | 08:27 | Health | | | | | SEDIMENT | | System - | | | | | | | [facility] | | | | + + + + + + + | BACTERIA | 2021-01-26 | [facility] | 3 | /hpf | (missing) | | (#/HPF) IN | 08:27 | Health | | | | | URINE | | System - | | | | | | | [facility] | | | | + + + + + + + | PH OF URINE | 2021-01-26 | [facility] | 5.0 | (missing) | (missing) | | | 08:27 | Health | | | | | | | System - | | | | | | | [facility] | | | | + + + + + + + | CLARITY OF | 2021-01-26 | [facility] | Cloudy | (missing) | (missing) | | URINE | 08:27 | Health | | | | | | | System - | | | | | | | [facility] | | | | + + + + + + + | ASA | 2021-01-26 | [facility] | Negative | (missing) | (missing) | | (ASCORBIC | 08:27 | Health | | | | | ACID) IN | | System - | | | | | URINE | | [facility] | | | | + + + + + + + | GLUCOSE IN | 2021-01-26 | [facility] | Negative | (missing) | (missing) | | URINE | 08:27 | Health | | | | | | | System - | | | | | | | [facility] | | | | + + + + + + + | NITRITE | 2021-01-26 | [facility] | Negative | (missing) | (missing) | | PRESENCE IN | 08:27 | Health | | | | | URINE | | System - | | | | | | | [facility] | | | | + + + + + + + | HEMOGLOBIN | 2021-01-26 | [facility] | Negative | (missing) | (missing) | | PRESENCE IN | 08:27 | Health | | | | | URINE | | System - | | | | | | | [facility] | | | | + + + + + + + | URINE | 2021-01-26 | [facility] | Normal | (missing) | (missing) | | CULTURE | 08:27 | Health | urogenital | | | | | | System - | microbiota | | | | | | [facility] | | | | + + + + + + + | URINE | 2021-01-26 | [facility] | Normal | (missing) | (missing) | | CULTURE | 08:27 | Health | urogenital | | | | | | System - | microbiota | | | | | | [facility] | | | | + + + + + + + | BILIRUBIN, | 2021-01-26 | [facility] | Positive | (missing) | (missing) | | TOTAL | 08:27 | Health | | | | | PRESENCE IN | | System - | | | | | URINE | | [facility] | | | | + + + + + + + | MUCUS | 2021-01-26 | [facility] | Trace | (missing) | (missing) | | (#/HPF) IN | 08:27 | Health | | | | | URINE | | System - | | | | | SEDIMENT | | [facility] | | | | + + + + + + + | KETONES IN | 2021-01-26 | [facility] | Trace | (missing) | (missing) | | URINE | 08:27 | Health | | | | | | | System - | | | | | | | [facility] | | | | + + + + + + + | LEUKOCYTE | 2021-01-26 | [facility] | Trace | (missing) | (missing) | | ESTERASE | 08:27 | Health | | | | | PRESENCE IN | | System - | | | | | URINE BY | | [facility] | | | | | TEST STRIP | | | | | | + + + + + + + | COLOR OF | 2021-01-26 | [facility] | Yellow | (missing) | (missing) | | URINE | 08:27 | Health | | | | | | | System - | | | | | | | [facility] | | | | + + + + + + + + + | Result panel 25 | + + + + + + + + + | NRBC/100 | 2021-02-07 | [facility] | 0.0 | % | (missing) | | WBCS BY | 09:40 | Health | | | | | AUTOMATED | | System - | | | | | COUNT | | [facility] | | | | + + + + + + + | NRBC/100 | 2021-02-07 | [facility] | 0.0 | % | (missing) | | WBCS BY | 09:40 | Health | | | | | AUTOMATED | | System - | | | | | COUNT | | [facility] | | | | + + + + + + + | | 2021-02-07 | [facility] | 0.0 | k/mcl | (missing) | | NRBC(10*3/UL | 09:40 | Health | | | | | ) IN BLOOD | | System - | | | | | BY AUTOMATED | | [facility] | | | | | COUNT | | | | | | + + + + + + + | | 2021-02-07 | [facility] | 0.0 | k/mcl | (missing) | | NRBC(10*3/UL | 09:40 | Health | | | | | ) IN BLOOD | | System - | | | | | BY AUTOMATED | | [facility] | | | | | COUNT | | | | | | + + + + + + + | IMMATURE | 2021-02-07 | [facility] | 0.03 | k/mcl | (missing) | | GRANULOCYTE | 09:40 | Health | | | | | (ABS) | | System - | | | | | | | [facility] | | | | + + + + + + + | IMMATURE | 2021-02-07 | [facility] | 0.03 | k/mcl | (missing) | | GRANULOCYTE | 09:40 | Health | | | | | (ABS) | | System - | | | | | | | [facility] | | | | + + + + + + + | BASOPHILS | 2021-02-07 | [facility] | 0.1 | k/mcl | (missing) | | (10*3/UL) IN | 09:40 | Health | | | | | BLOOD BY | | System - | | | | | AUTOMATED | | [facility] | | | | | COUNT | | | | | | + + + + + + + | BASOPHILS | 2021-02-07 | [facility] | 0.1 | k/mcl | (missing) | | (10*3/UL) IN | 09:40 | Health | | | | | BLOOD BY | | System - | | | | | AUTOMATED | | [facility] | | | | | COUNT | | | | | | + + + + + + + | EOSINOPHILS | 2021-02-07 | [facility] | 0.2 | k/mcl | (missing) | | (10*3/UL) | 09:40 | Health | | | | | IN BLOOD BY | | System - | | | | | AUTOMATED | | [facility] | | | | | COUNT | | | | | | + + + + + + + | EOSINOPHILS | 2021-02-07 | [facility] | 0.2 | k/mcl | (missing) | | (10*3/UL) | 09:40 | Health | | | | | IN BLOOD BY | | System - | | | | | AUTOMATED | | [facility] | | | | | COUNT | | | | | | + + + + + + + | IMMATURE | 2021-02-07 | [facility] | 0.3 | % | (missing) | | GRANULOCYTE | 09:40 | Health | | | | | % (AUTO) | | System - | | | | | | | [facility] | | | | + + + + + + + | IMMATURE | 2021-02-07 | [facility] | 0.3 | % | (missing) | | GRANULOCYTE | 09:40 | Health | | | | | % (AUTO) | | System - | | | | | | | [facility] | | | | + + + + + + + | D-DIMER, | 2021-02-07 | [facility] | 0.48 | mcg/ml feu | (missing) | | QUANTITATIVE | 09:40 | Health | | | | | (MCG/ML) | | System - | | | | | STAGO | | [facility] | | | | + + + + + + + | D-DIMER, | 2021-02-07 | [facility] | 0.48 | mcg/ml feu | (missing) | | QUANTITATIVE | 09:40 | Health | | | | | (MCG/ML) | | System - | | | | | STAGO | | [facility] | | | | + + + + + + + | | 2021-02-07 | [facility] | 0.5 | % | (missing) | | 10 | 09:40 | Health | | | | | 0 LEUKOCYTES | | System - | | | | | IN BLOOD BY | | [facility] | | | | | AUTOMATED | | | | | | | COUNT | | | | | | + + + + + + + | | 2021-02-07 | [facility] | 0.5 | % | (missing) | | BASOPHILS/10 | 09:40 | Health | | | | | 0 LEUKOCYTES | | System - | | | | | IN BLOOD BY | | [facility] | | | | | AUTOMATED | | | | | | | COUNT | | | | | | + + + + + + + | MONOCYTES | 2021-02-07 | [facility] | 0.5 | k/mcl | (missing) | | (10*3/UL) IN | 09:40 | Health | | | | | BLOOD BY | | System - | | | | | AUTOMATED | | [facility] | | | | | COUNT | | | | | | + + + + + + + | MONOCYTES | 2021-02-07 | [facility] | 0.5 | k/mcl | (missing) | | (10*3/UL) IN | 09:40 | Health | | | | | BLOOD BY | | System - | | | | | AUTOMATED | | [facility] | | | | | COUNT | | | | | | + + + + + + + | LACTIC ACID | 2021-02-07 | [facility] | 1.3 | mmol/l | (missing) | | (LACTATE) | 09:40 | Health | | | | | (MMOL/L) IN | | System - | | | | | BLOOD | | [facility] | | | | + + + + + + + | LACTIC ACID | 2021-02-07 | [facility] | 1.3 | mmol/l | (missing) | | (LACTATE) | 09:40 | Health | | | | | (MMOL/L) IN | | System - | | | | | BLOOD | | [facility] | | | | + + + + + + + | | 2021-02-07 | [facility] | 1.7 | % | (missing) | | EOSINOPHILS/ | 09:40 | Health | | | | | 100 | | System - | | | | | LEUKOCYTES | | [facility] | | | | | IN BLOOD BY | | | | | | | AUTOMATED | | | | | | | COUNT | | | | | | + + + + + + + | | 2021-02-07 | [facility] | 1.7 | % | (missing) | | EOSINOPHILS/ | 09:40 | Health | | | | | 100 | | System - | | | | | LEUKOCYTES | | [facility] | | | | | IN BLOOD BY | | | | | | | AUTOMATED | | | | | | | COUNT | | | | | | + + + + + + + | | 2021-02-07 | [facility] | 10.7 | k/mcl | (missing) | | LEUKOCYTES(1 | 09:40 | Health | | | | | 0*3/UL) IN | | System - | | | | | BLOOD BY | | [facility] | | | | | AUTOMATED | | | | | | | COUNT | | | | | | + + + + + + + | | 2021-02-07 | [facility] | 10.7 | k/mcl | (missing) | | LEUKOCYTES(1 | 09:40 | Health | | | | | 0*3/UL) IN | | System - | | | | | BLOOD BY | | [facility] | | | | | AUTOMATED | | | | | | | COUNT | | | | | | + + + + + + + | ERYTHROCYTE | 2021-02-07 | [facility] | 12.6 | % | (missing) | | | 09:40 | Health | | | | | DISTRIBUTION | | System - | | | | | WIDTH | | [facility] | | | | | (RATIO) BY | | | | | | | AUTOMATED | | | | | | | COUNT | | | | | | + + + + + + + | ERYTHROCYTE | 2021-02-07 | [facility] | 12.6 | % | (missing) | | | 09:40 | Health | | | | | DISTRIBUTION | | System - | | | | | WIDTH | | [facility] | | | | | (RATIO) BY | | | | | | | AUTOMATED | | | | | | | COUNT | | | | | | + + + + + + + | HEMOGLOBIN | 2021-02-07 | [facility] | 14.4 | g/dl | (missing) | | (G/DL) IN | 09:40 | Health | | | | | BLOOD | | System - | | | | | | | [facility] | | | | + + + + + + + | HEMOGLOBIN | 2021-02-07 | [facility] | 14.4 | g/dl | (missing) | | (G/DL) IN | 09:40 | Health | | | | | BLOOD | | System - | | | | | | | [facility] | | | | + + + + + + + | LDH | 2021-02-07 | [facility] | 184 | u/l | (missing) | | (LACTATE | 09:40 | Health | | | | | DEHYDROGENAS | | System - | | | | | E) (U/L) IN | | [facility] | | | | | SER/PLAS | | | | | | | LAC->PYR | | | | | | + + + + + + + | LDH | 2021-02-07 | [facility] | 184 | u/l | (missing) | | (LACTATE | 09:40 | Health | | | | | DEHYDROGENAS | | System - | | | | | E) (U/L) IN | | [facility] | | | | | SER/PLAS | | | | | | | LAC->PYR | | | | | | + + + + + + + | | 2021-02-07 | [facility] | 19.7 | % | (missing) | | LYMPHOCYTES/ | 09:40 | Health | | | | | 100 | | System - | | | | | LEUKOCYTES | | [facility] | | | | | IN BLOOD BY | | | | | | | AUTOMATED | | | | | | | COUNT | | | | | | + + + + + + + | | 2021-02-07 | [facility] | 19.7 | % | (missing) | | LYMPHOCYTES/ | 09:40 | Health | | | | | 100 | | System - | | | | | LEUKOCYTES | | [facility] | | | | | IN BLOOD BY | | | | | | | AUTOMATED | | | | | | | COUNT | | | | | | + + + + + + + | LYMPHOCYTES | 2021-02-07 | [facility] | 2.1 | k/mcl | (missing) | | (10*3/UL) | 09:40 | Health | | | | | IN BLOOD BY | | System - | | | | | AUTOMATED | | [facility] | | | | | COUNT | | | | | | + + + + + + + | LYMPHOCYTES | 2021-02-07 | [facility] | 2.1 | k/mcl | (missing) | | (10*3/UL) | 09:40 | Health | | | | | IN BLOOD BY | | System - | | | | | AUTOMATED | | [facility] | | | | | COUNT | | | | | | + + + + + + + | ERYTHROCYTE | 2021-02-07 | [facility] | 29.3 | pg | (missing) | | MEAN | 09:40 | Health | | | | | CORPUSCULAR | | System - | | | | | HEMOGLOBIN | | [facility] | | | | | (PG) BY | | | | | | | AUTOMATED | | | | | | | COUNT | | | | | | + + + + + + + | ERYTHROCYTE | 2021-02-07 | [facility] | 29.3 | pg | (missing) | | MEAN | 09:40 | Health | | | | | CORPUSCULAR | | System - | | | | | HEMOGLOBIN | | [facility] | | | | | (PG) BY | | | | | | | AUTOMATED | | | | | | | COUNT | | | | | | + + + + + + + | ERYTHROCYTE | 2021-02-07 | [facility] | 32.6 | g/dl | (missing) | | MEAN | 09:40 | Health | | | | | CORPUSCULAR | | System - | | | | | HEMOGLOBIN | | [facility] | | | | | CONCENTRATIO | | | | | | | N (G/DL) BY | | | | | | | AUTOMATED | | | | | | + + + + + + + | ERYTHROCYTE | 2021-02-07 | [facility] | 32.6 | g/dl | (missing) | | MEAN | 09:40 | Health | | | | | CORPUSCULAR | | System - | | | | | HEMOGLOBIN | | [facility] | | | | | CONCENTRATIO | | | | | | | N (G/DL) BY | | | | | | | AUTOMATED | | | | | | + + + + + + + | PLATELETS | 2021-02-07 | [facility] | 366 | k/mcl | (missing) | | (10*3/UL) IN | 09:40 | Health | | | | | BLOOD | | System - | | | | | AUTOMATED | | [facility] | | | | | COUNT | | | | | | + + + + + + + | PLATELETS | 2021-02-07 | [facility] | 366 | k/mcl | (missing) | | (10*3/UL) IN | 09:40 | Health | | | | | BLOOD | | System - | | | | | AUTOMATED | | [facility] | | | | | COUNT | | | | | | + + + + + + + | | 2021-02-07 | [facility] | 4.5 | % | (missing) | | MONOCYTES/10 | 09:40 | Health | | | | | 0 LEUKOCYTES | | System - | | | | | IN BLOOD BY | | [facility] | | | | | AUTOMATED | | | | | | | COUNT | | | | | | + + + + + + + | | 2021-02-07 | [facility] | 4.5 | % | (missing) | | MONOCYTES/10 | 09:40 | Health | | | | | 0 LEUKOCYTES | | System - | | | | | IN BLOOD BY | | [facility] | | | | | AUTOMATED | | | | | | | COUNT | | | | | | + + + + + + + | | 2021-02-07 | [facility] | 4.92 | m/mcl | (missing) | | ERYTHROCYTES | 09:40 | Health | | | | | (10*6/UL) | | System - | | | | | IN BLOOD BY | | [facility] | | | | | AUTOMATED | | | | | | | COUNT | | | | | | + + + + + + + | | 2021-02-07 | [facility] | 4.92 | m/mcl | (missing) | | ERYTHROCYTES | 09:40 | Health | | | | | (10*6/UL) | | System - | | | | | IN BLOOD BY | | [facility] | | | | | AUTOMATED | | | | | | | COUNT | | | | | | + + + + + + + | HEMATOCRIT | 2021-02-07 | [facility] | 44.2 | % | (missing) | | (%) IN BLOOD | 09:40 | Health | | | | | BY | | System - | | | | | AUTOMATED | | [facility] | | | | | COUNT | | | | | | + + + + + + + | HEMATOCRIT | 2021-02-07 | [facility] | 44.2 | % | (missing) | | (%) IN BLOOD | 09:40 | Health | | | | | BY | | System - | | | | | AUTOMATED | | [facility] | | | | | COUNT | | | | | | + + + + + + + | NEUTROPHILS | 2021-02-07 | [facility] | 7.8 | k/mcl | (missing) | | (10*3/UL) | 09:40 | Health | | | | | IN BLOOD BY | | System - | | | | | AUTOMATED | | [facility] | | | | | COUNT | | | | | | + + + + + + + | NEUTROPHILS | 2021-02-07 | [facility] | 7.8 | k/mcl | (missing) | | (10*3/UL) | 09:40 | Health | | | | | IN BLOOD BY | | System - | | | | | AUTOMATED | | [facility] | | | | | COUNT | | | | | | + + + + + + + | | 2021-02-07 | [facility] | 73.3 | % | (missing) | | NEUTROPHILS/ | 09:40 | Health | | | | | 100 | | System - | | | | | LEUKOCYTES | | [facility] | | | | | IN BLOOD BY | | | | | | | AUTOMATED | | | | | | | COUNT | | | | | | + + + + + + + | | 2021-02-07 | [facility] | 73.3 | % | (missing) | | NEUTROPHILS/ | 09:40 | Health | | | | | 100 | | System - | | | | | LEUKOCYTES | | [facility] | | | | | IN BLOOD BY | | | | | | | AUTOMATED | | | | | | | COUNT | | | | | | + + + + + + + | ERYTHROCYTE | 2021-02-07 | [facility] | 89.8 | fl | (missing) | | MEAN | 09:40 | Health | | | | | CORPUSCULAR | | System - | | | | | VOLUME (FL) | | [facility] | | | | | BY AUTOMATED | | | | | | | COUNT | | | | | | + + + + + + + | ERYTHROCYTE | 2021-02-07 | [facility] | 89.8 | fl | (missing) | | MEAN | 09:40 | Health | | | | | CORPUSCULAR | | System - | | | | | VOLUME (FL) | | [facility] | | | | | BY AUTOMATED | | | | | | | COUNT | | | | | | + + + + + + + | PLATELET | 2021-02-07 | [facility] | 9.4 | fl | (missing) | | MEAN VOLUME | 09:40 | Health | | | | | (FL) IN | | System - | | | | | BLOOD BY | | [facility] | | | | | AUTOMATED | | | | | | | COUNT | | | | | | + + + + + + + | PLATELET | 2021-02-07 | [facility] | 9.4 | fl | (missing) | | MEAN VOLUME | 09:40 | Health | | | | | (FL) IN | | System - | | | | | BLOOD BY | | [facility] | | | | | AUTOMATED | | | | | | | COUNT | | | | | | + + + + + + + | BLOOD | 2021-02-07 | [facility] | No growth | (missing) | (missing) | | CULTURE | 09:40 | Health | at 24 hours | | | | | | System - | | | | | | | [facility] | | | | + + + + + + + | BLOOD | 2021-02-07 | [facility] | No growth | (missing) | (missing) | | CULTURE | 09:40 | Health | at 24 hours | | | | | | System - | | | | | | | [facility] | | | | + + + + + + + | BLOOD | 2021-02-07 | [facility] | No growth | (missing) | (missing) | | CULTURE | 09:40 | Health | at 3 days | | | | | | System - | | | | | | | [facility] | | | | + + + + + + + | BLOOD | 2021-02-07 | [facility] | No growth | (missing) | (missing) | | CULTURE | 09:40 | Health | at 3 days | | | | | | System - | | | | | | | [facility] | | | | + + + + + + + | BLOOD | 2021-02-07 | [facility] | No growth | (missing) | (missing) | | CULTURE | 09:40 | Health | at 4 days | | | | | | System - | | | | | | | [facility] | | | | + + + + + + + | BLOOD | 2021-02-07 | [facility] | No growth | (missing) | (missing) | | CULTURE | 09:40 | Health | at 4 days | | | | | | System - | | | | | | | [facility] | | | | + + + + + + + | BLOOD | 2021-02-07 | [facility] | No growth | (missing) | (missing) | | CULTURE | 09:40 | Health | at 48 hours | | | | | | System - | | | | | | | [facility] | | | | + + + + + + + | BLOOD | 2021-02-07 | [facility] | No growth | (missing) | (missing) | | CULTURE | 09:40 | Health | at 48 hours | | | | | | System - | | | | | | | [facility] | | | | + + + + + + + | BLOOD | 2021-02-07 | [facility] | No growth | (missing) | (missing) | | CULTURE | 09:40 | Health | at 5 days | | | | | | System - | | | | | | | [facility] | | | | + + + + + + + | BLOOD | 2021-02-07 | [facility] | No growth | (missing) | (missing) | | CULTURE | 09:40 | Health | at 5 days | | | | | | System - | | | | | | | [facility] | | | | + + + + + + + | BLOOD | 2021-02-07 | [facility] | No growth | (missing) | (missing) | | CULTURE | 09:40 | Health | to date | | | | | | System - | | | | | | | [facility] | | | | + + + + + + + | BLOOD | 2021-02-07 | [facility] | No growth | (missing) | (missing) | | CULTURE | 09:40 | Health | to date | | | | | | System - | | | | | | | [facility] | | | | + + + + + + + + + | Result panel 26 | + + + + + + + + + | | 2021-02-07 | [facility] | (missing) | (missing) | (missing) | | (unavailable | 09:41 | Health | | | | | ) | | System - | | | | | | | [facility] | | | | + + + + + + + | ALCOHOL | 2021-02-07 | [facility] | < | g/dl | (missing) | | (G/DL) IN | 09:41 | Health | | | | | SER/PLAS | | System - | | | | | | | [facility] | | | | + + + + + + + | ALCOHOL | 2021-02-07 | [facility] | < | g/dl | (missing) | | (G/DL) IN | 09:41 | Health | | | | | SER/PLAS | | System - | | | | | | | [facility] | | | | + + + + + + + | TSH | 2021-02-07 | [facility] | 1.26 | mciu/ml | (missing) | | (THYROTROPIN | 09:41 | Health | | | | | ) (UIU/ML) | | System - | | | | | IN SER/PLAS | | [facility] | | | | + + + + + + + | TSH | 2021-02-07 | [facility] | 1.26 | mciu/ml | (missing) | | (THYROTROPIN | 09:41 | Health | | | | | ) (UIU/ML) | | System - | | | | | IN SER/PLAS | | [facility] | | | | + + + + + + + | | 2021-02-07 | [facility] | 7 | (missing) | (missing) | | (unavailable | 09:41 | Health | | | | | ) | | System - | | | | | | | [facility] | | | | + + + + + + + | | 2021-02-07 | [facility] | BONES: The | (missing) | (missing) | | (unavailable | 09:41 | Health | osseous | | | | ) | | System - | structures | | | | | | [facility] | are | | | | | | | unremarkable | | | | | | | . | | | + + + + + + + | | 2021-02-07 | [facility] | BRAIN STEM: | (missing) | (missing) | | (unavailable | 09:41 | Health | Within | | | | ) | | System - | normal | | | | | | [facility] | limits. | | | + + + + + + + | | 2021-02-07 | [facility] | CEREBELLUM: | (missing) | (missing) | | (unavailable | 09:41 | Health | Within | | | | ) | | System - | normal | | | | | | [facility] | limits. | | | + + + + + + + | | 2021-02-07 | [facility] | CEREBRUM: No | (missing) | (missing) | | (unavailable | 09:41 | Health | mass, mass | | | | ) | | System - | effect, | | | | | | [facility] | shift of the | | | | | | | midline | | | | | | | structures, | | | | | | | obvious | | | | | | | acute | | | | | | | infarct, or | | | | | | | hemorrhage. | | | + + + + + + + | | 2021-02-07 | [facility] | COMPARISON: | (missing) | (missing) | | (unavailable | 09:41 | Health | 01/26/2021 | | | | ) | | System - | | | | | | | [facility] | | | | + + + + + + + | | 2021-02-07 | [facility] | COMPARISON: | (missing) | (missing) | | (unavailable | 09:41 | Health | None. | | | | ) | | System - | | | | | | | [facility] | | | | + + + + + + + | | 2021-02-07 | [facility] | Clear | (missing) | (missing) | | (unavailable | 09:41 | Health | lungs. | | | | ) | | System - | | | | | | | [facility] | | | | + + + + + + + | | 2021-02-07 | [facility] | EXTRA-AXIAL | (missing) | (missing) | | (unavailable | 09:41 | Health | SPACES: No | | | | ) | | System - | acute | | | | | | [facility] | abnormal | | | | | | | fluid | | | | | | | collection | | | | | | | or mass. | | | + + + + + + + | | 2021-02-07 | [facility] | Electronical | (missing) | (missing) | | (unavailable | 09:41 | Health | ly signed | | | | ) | | System - | by: Jeremiah | | | | | | [facility] | MD Lenora | | | | | | | on | | | | | | | 02/07/2021 | | | | | | | 10:15 AM at | | | | | | | workstation | | | | | | | [id number] | | | + + + + + + + | | 2021-02-07 | [facility] | Electronical | (missing) | (missing) | | (unavailable | 09:41 | Health | ly signed | | | | ) | | System - | by: Malachi | | | | | | [facility] Glilespie MD on | | | | | | | 02/07/2021 | | | | | | | 10:06 AM at | | | | | | | workstation | | | | | | | [id number] | | | + + + + + + + | | 2021-02-07 | [facility] | FINDINGS: | (missing) | (missing) | | (unavailable | 09:41 | Health | | | | | ) | | System - | | | | | | | [facility] | | | | + + + + + + + | | 2021-02-07 | [facility] | HEART: The | (missing) | (missing) | | (unavailable | 09:41 | Health | heart is | | | | ) | | System - | likely | | | | | | [facility] | normal in | | | | | | | size. | | | + + + + + + + | | 2021-02-07 | [facility] | INDICATION: | (missing) | (missing) | | (unavailable | 09:41 | Health | covid, | | | | ) | | System - | weakness | | | | | | [facility] | | | | + + + + + + + | | 2021-02-07 | [facility] | | (missing) | (missing) | | (unavailable | 09:41 | Health | INDICATIONS: | | | | ) | | System - | Mental | | | | | | [facility] | status | | | | | | | change, | | | | | | | unknown | | | | | | | cause | | | + + + + + + + | | 2021-02-07 | [facility] | LUNGS: The | (missing) | (missing) | | (unavailable | 09:41 | Health | lungs are | | | | ) | | System - | free from | | | | | | [facility] | consolidatio | | | | | | | n. | | | + + + + + + + | | 2021-02-07 | [facility] | | (missing) | (missing) | | (unavailable | 09:41 | Health | MEDIASTINUM: | | | | ) | | System - | Grossly | | | | | | [facility] | preserved | | | | | | | mediastinal | | | | | | | contours. | | | + + + + + + + | | 2021-02-07 | [facility] | Negative | (missing) | (missing) | | BARBITURATES | 09:41 | Health | | | | | PRESENCE IN | | System - | | | | | URINE BY | | [facility] | | | | | SCREEN | | | | | | | METHOD | | | | | | + + + + + + + | | 2021-02-07 | [facility] | Negative | (missing) | (missing) | | BENZODIAZEPI | 09:41 | Health | | | | | SURYA | | System - | | | | | (PRESENCE) | | [facility] | | | | | IN URINE BY | | | | | | | SCREEN | | | | | | | METHOD | | | | | | + + + + + + + | COCAINE | 2021-02-07 | [facility] | Negative | (missing) | (missing) | | (PRESENCE) | 09:41 | Health | | | | | IN URINE BY | | System - | | | | | SCREEN | | [facility] | | | | | METHOD | | | | | | + + + + + + + | METHADONE | 2021-02-07 | [facility] | Negative | (missing) | (missing) | | (PRESENCE) | 09:41 | Health | | | | | IN URINE BY | | System - | | | | | SCREEN | | [facility] | | | | | METHOD | | | | | | + + + + + + + | OPIATES | 2021-02-07 | [facility] | Negative | (missing) | (missing) | | (PRESENCE) | 09:41 | Health | | | | | IN URINE BY | | System - | | | | | SCREEN | | [facility] | | | | | METHOD | | | | | | + + + + + + + | OXYCODONE | 2021-02-07 | [facility] | Negative | (missing) | (missing) | | (PRESENCE) | 09:41 | Health | | | | | IN URINE BY | | System - | | | | | SCREEN | | [facility] | | | | | METHOD | | | | | | + + + + + + + | | 2021-02-07 | [facility] | Negative | (missing) | (missing) | | PHENCYCLIDIN | 09:41 | Health | | | | | E (PRESENCE) | | System - | | | | | IN URINE BY | | [facility] | | | | | SCREEN | | | | | | | METHOD | | | | | | + + + + + + + | THC | 2021-02-07 | [facility] | Negative | (missing) | (missing) | | (CANNABINOID | 09:41 | Health | | | | | ) IN URINE | | System - | | | | | BY SCREEN | | [facility] | | | | | METHOD | | | | | | + + + + + + + | TRICYCLIC | 2021-02-07 | [facility] | Negative | (missing) | (missing) | | ANTIDEPRESSA | 09:41 | Health | | | | | NTS | | System - | | | | | (PRESENCE) | | [facility] | | | | | IN URINE | | | | | | + + + + + + + | | 2021-02-07 | [facility] | Negative | (missing) | (missing) | | PHENCYCLIDIN | 09:41 | Health | | | | | E (PRESENCE) | | System - | | | | | IN URINE BY | | [facility] | | | | | SCREEN | | | | | | | METHOD | | | | | | + + + + + + + | THC | 2021-02-07 | [facility] | Negative | (missing) | (missing) | | (CANNABINOID | 09:41 | Health | | | | | ) IN URINE | | System - | | | | | BY SCREEN | | [facility] | | | | | METHOD | | | | | | + + + + + + + | OPIATES | 2021-02-07 | [facility] | Negative | (missing) | (missing) | | (PRESENCE) | 09:41 | Health | | | | | IN URINE BY | | System - | | | | | SCREEN | | [facility] | | | | | METHOD | | | | | | + + + + + + + | TRICYCLIC | 2021-02-07 | [facility] | Negative | (missing) | (missing) | | ANTIDEPRESSA | 09:41 | Health | | | | | NTS | | System - | | | | | (PRESENCE) | | [facility] | | | | | IN URINE | | | | | | + + + + + + + | OXYCODONE | 2021-02-07 | [facility] | Negative | (missing) | (missing) | | (PRESENCE) | 09:41 | Health | | | | | IN URINE BY | | System - | | | | | SCREEN | | [facility] | | | | | METHOD | | | | | | + + + + + + + | COCAINE | 2021-02-07 | [facility] | Negative | (missing) | (missing) | | (PRESENCE) | 09:41 | Health | | | | | IN URINE BY | | System - | | | | | SCREEN | | [facility] | | | | | METHOD | | | | | | + + + + + + + | | 2021-02-07 | [facility] | Negative | (missing) | (missing) | | BARBITURATES | 09:41 | Health | | | | | PRESENCE IN | | System - | | | | | URINE BY | | [facility] | | | | | SCREEN | | | | | | | METHOD | | | | | | + + + + + + + | | 2021-02-07 | [facility] | Negative | (missing) | (missing) | | BENZODIAZEPI | 09:41 | Health | | | | | SURYA | | System - | | | | | (PRESENCE) | | [facility] | | | | | IN URINE BY | | | | | | | SCREEN | | | | | | | METHOD | | | | | | + + + + + + + | METHADONE | 2021-02-07 | [facility] | Negative | (missing) | (missing) | | (PRESENCE) | 09:41 | Health | | | | | IN URINE BY | | System - | | | | | SCREEN | | [facility] | | | | | METHOD | | | | | | + + + + + + + | | 2021-02-07 | [facility] | No CT | (missing) | (missing) | | (unavailable | 09:41 | Health | evidence of | | | | ) | | System - | acute | | | | | | [facility] | intracranial | | | | | | | | | | | | | | abnormality. | | | | | | | | | | + + + + + + + | | 2021-02-07 | [facility] | ORBITS: | (missing) | (missing) | | (unavailable | 09:41 | Health | Visualized | | | | ) | | System - | orbits are | | | | | | [facility] | unremarkable | | | | | | | . | | | + + + + + + + | | 2021-02-07 | [facility] | PLEURAL | (missing) | (missing) | | (unavailable | 09:41 | Health | SPACES: No | | | | ) | | System - | pleural | | | | | | [facility] | effusion or | | | | | | | pneumothorax | | | | | | | . | | | + + + + + + + | | 2021-02-07 | [facility] | PROCEDURE: | (missing) | (missing) | | (unavailable | 09:41 | Health | CHEST - ONE | | | | ) | | System - | VIEW | | | | | | [facility] | | | | + + + + + + + | | 2021-02-07 | [facility] | PROCEDURE: | (missing) | (missing) | | (unavailable | 09:41 | Health | CT BRAIN | | | | ) | | System - | WITHOUT | | | | | | [facility] | CONTRAST | | | + + + + + + + | | 2021-02-07 | [facility] | Presumptive | (missing) | (missing) | | METHAMPHETAM | 09:41 | Health | Positive | | | | INE | | System - | | | | | (PRESENCE) | | [facility] | | | | | IN URINE BY | | | | | | | SCREEN | | | | | | | METHOD | | | | | | + + + + + + + | AMPHETAMINE | 2021-02-07 | [facility] | Presumptive | (missing) | (missing) | | (PRESENCE) | 09:41 | Health | Positive | | | | IN URINE BY | | System - | | | | | SCREEN | | [facility] | | | | | METHOD | | | | | | + + + + + + + | | 2021-02-07 | [facility] | Presumptive | (missing) | (missing) | | METHAMPHETAM | 09:41 | Health | Positive | | | | INE | | System - | | | | | (PRESENCE) | | [facility] | | | | | IN URINE BY | | | | | | | SCREEN | | | | | | | METHOD | | | | | | + + + + + + + | AMPHETAMINE | 2021-02-07 | [facility] | Presumptive | (missing) | (missing) | | (PRESENCE) | 09:41 | Health | Positive | | | | IN URINE BY | | System - | | | | | SCREEN | | [facility] | | | | | METHOD | | | | | | + + + + + + + | | 2021-02-07 | [facility] | | (missing) | (missing) | | (unavailable | 09:41 | Health | Procedure(s) | | | | ) | | System - | : * No | | | | | | [facility] | procedures | | | | | | | listed * | | | + + + + + + + | | 2021-02-07 | [facility] | SINUSES: | (missing) | (missing) | | (unavailable | 09:41 | Health | Visualized | | | | ) | | System - | paranasal | | | | | | [facility] | sinuses are | | | | | | | unremarkable | | | | | | | . The | | | | | | | mastoid air | | | | | | | cells are | | | | | | | clear. | | | + + + + + + + | | 2021-02-07 | [facility] | SKULL: No | (missing) | (missing) | | (unavailable | 09:41 | Health | acute | | | | ) | | System - | calvarial | | | | | | [facility] | abnormality. | | | | | | | | | | + + + + + + + | | 2021-02-07 | [facility] | SOFT | (missing) | (missing) | | (unavailable | 09:41 | Health | TISSUES: | | | | ) | | System - | Visualized | | | | | | [facility] | extracranial | | | | | | | soft | | | | | | | tissues are | | | | | | | unremarkable | | | | | | | . | | | + + + + + + + | | 2021-02-07 | [facility] | SUPPORT | (missing) | (missing) | | (unavailable | 09:41 | Health | DEVICES: | | | | ) | | System - | None. | | | | | | [facility] | | | | + + + + + + + | | 2021-02-07 | [facility] | TECHNIQUE: | (missing) | (missing) | | (unavailable | 09:41 | Health | Thin-section | | | | ) | | System - | images were | | | | | | [facility] | obtained at | | | | | | | the skull | | | | | | | base, and | | | | | | | thin-section | | | | | | | images were | | | | | | | obtained | | | | | | | through the | | | | | | | brain | | | | | | | without | | | | | | | intravenous | | | | | | | contrast. | | | | | | | One or more | | | | | | | of the | | | | | | | following | | | | | | | dose | | | | | | | lowering | | | | | | | techniques | | | | | | | was | | | | | | | utilized: | | | | | | | Automated | | | | | | | exposure | | | | | | | control, | | | | | | | adjustment | | | | | | | of the mA | | | | | | | and/or kV | | | | | | | according to | | | | | | | patient | | | | | | | size, or use | | | | | | | of | | | | | | | iterative | | | | | | | reconstructi | | | | | | | on. | | | + + + + + + + | | 2021-02-07 | [facility] | VENTRICLES: | (missing) | (missing) | | (unavailable | 09:41 | Health | Normal size | | | | ) | | System - | and | | | | | | [facility] | configuratio | | | | | | | n. No | | | | | | | hydrocephalu | | | | | | | s or | | | | | | | intraventric | | | | | | | ular mass. | | | + + + + + + + + + | Result panel 27 | + + + + + + + + + | BLOOD | 2021-02-07 | [facility] | No growth | (missing) | (missing) | | CULTURE | 09:56 | Health | at 24 hours | | | | | | System - | | | | | | | [facility] | | | | + + + + + + + | BLOOD | 2021-02-07 | [facility] | No growth | (missing) | (missing) | | CULTURE | 09:56 | Health | at 24 hours | | | | | | System - | | | | | | | [facility] | | | | + + + + + + + | BLOOD | 2021-02-07 | [facility] | No growth | (missing) | (missing) | | CULTURE | 09:56 | Health | at 3 days | | | | | | System - | | | | | | | [facility] | | | | + + + + + + + | BLOOD | 2021-02-07 | [facility] | No growth | (missing) | (missing) | | CULTURE | 09:56 | Health | at 3 days | | | | | | System - | | | | | | | [facility] | | | | + + + + + + + | BLOOD | 2021-02-07 | [facility] | No growth | (missing) | (missing) | | CULTURE | 09:56 | Health | at 4 days | | | | | | System - | | | | | | | [facility] | | | | + + + + + + + | BLOOD | 2021-02-07 | [facility] | No growth | (missing) | (missing) | | CULTURE | 09:56 | Health | at 4 days | | | | | | System - | | | | | | | [facility] | | | | + + + + + + + | BLOOD | 2021-02-07 | [facility] | No growth | (missing) | (missing) | | CULTURE | 09:56 | Health | at 48 hours | | | | | | System - | | | | | | | [facility] | | | | + + + + + + + | BLOOD | 2021-02-07 | [facility] | No growth | (missing) | (missing) | | CULTURE | 09:56 | Health | at 48 hours | | | | | | System - | | | | | | | [facility] | | | | + + + + + + + | BLOOD | 2021-02-07 | [facility] | No growth | (missing) | (missing) | | CULTURE | 09:56 | Health | at 5 days | | | | | | System - | | | | | | | [facility] | | | | + + + + + + + | BLOOD | 2021-02-07 | [facility] | No growth | (missing) | (missing) | | CULTURE | 09:56 | Health | at 5 days | | | | | | System - | | | | | | | [facility] | | | | + + + + + + + | BLOOD | 2021-02-07 | [facility] | No growth | (missing) | (missing) | | CULTURE | 09:56 | Health | to date | | | | | | System - | | | | | | | [facility] | | | | + + + + + + + | BLOOD | 2021-02-07 | [facility] | No growth | (missing) | (missing) | | CULTURE | 09:56 | Health | to date | | | | | | System - | | | | | | | [facility] | | | | + + + + + + + + + | Result panel 28 | + + + + + + + + + | POCT FIO2 | 2021-02-07 | [facility] | (missing) | (missing) | (missing) | | | 10:05 | Health | | | | | | | System - | | | | | | | [facility] | | | | + + + + + + + | POCT LPM | 2021-02-07 | [facility] | (missing) | (missing) | (missing) | | FLOW | 10:05 | Health | | | | | | | System - | | | | | | | [facility] | | | | + + + + + + + | POCT PCO2 | 2021-02-07 | [facility] | (missing) | (missing) | (missing) | | (CALC) TEMP | 10:05 | Health | | | | | CORRECTED | | System - | | | | | BLOOD VENOUS | | [facility] | | | | | | | | | | | + + + + + + + | POCT PH, | 2021-02-07 | [facility] | (missing) | (missing) | (missing) | | (CALC) TEMP | 10:05 | Health | | | | | CORRECTED | | System - | | | | | BLOOD VENOUS | | [facility] | | | | | | | | | | | + + + + + + + | POCT PO2 | 2021-02-07 | [facility] | (missing) | (missing) | (missing) | | (CALC) TEMP | 10:05 | Health | | | | | CORRECTED | | System - | | | | | BLOOD VENOUS | | [facility] | | | | | | | | | | | + + + + + + + | POCT | 2021-02-07 | [facility] | (missing) | (missing) | (missing) | | TEMPERATURE | 10:05 | Health | | | | | | | System - | | | | | | | [facility] | | | | + + + + + + + | POCT FIO2 | 2021-02-07 | [facility] | (missing) | (missing) | (missing) | | | 10:05 | Health | | | | | | | System - | | | | | | | [facility] | | | | + + + + + + + | POCT LPM | 2021-02-07 | [facility] | (missing) | (missing) | (missing) | | FLOW | 10:05 | Health | | | | | | | System - | | | | | | | [facility] | | | | + + + + + + + | POCT | 2021-02-07 | [facility] | (missing) | (missing) | (missing) | | TEMPERATURE | 10:05 | Health | | | | | | | System - | | | | | | | [facility] | | | | + + + + + + + | EGFR | 2021-02-07 | [facility] | > | | (missing) | | (GLOMERULAR | 10:05 | Health | | ml/min/1.73m | | | FILTRATION | | System - | | ? | | | RATE) | | [facility] | | | | | ML/MIN/1.73 | | | | | | | SQ M. | | | | | | + + + + + + + | EGFR | 2021-02-07 | [facility] | > | | (missing) | | (GLOMERULAR | 10:05 | Health | | ml/min/1.73m | | | FILTRATION | | System - | | ? | | | RATE) | | [facility] | | | | | ML/MIN/1.73 | | | | | | | SQ M. | | | | | | + + + + + + + | | 2021-02-07 | [facility] | < | mcg/ml | (missing) | | ACETAMINOPHE | 10:05 | Health | | | | | N (UG/ML) IN | | System - | | | | | SER/PLAS | | [facility] | | | | + + + + + + + | | 2021-02-07 | [facility] | < | mcg/ml | (missing) | | ACETAMINOPHE | 10:05 | Health | | | | | N (UG/ML) IN | | System - | | | | | SER/PLAS | | [facility] | | | | + + + + + + + | SALICYLATE | 2021-02-07 | [facility] | < | mg/dl | (missing) | | (MG/DL) IN | 10:05 | Health | | | | | SER/PLAS | | System - | | | | | | | [facility] | | | | + + + + + + + | C REACTIVE | 2021-02-07 | [facility] | < | mg/dl | (missing) | | PROTEIN | 10:05 | Health | | | | | (MG/DL) IN | | System - | | | | | SER/PLAS | | [facility] | | | | + + + + + + + | C REACTIVE | 2021-02-07 | [facility] | < | mg/dl | (missing) | | PROTEIN | 10:05 | Health | | | | | (MG/DL) IN | | System - | | | | | SER/PLAS | | [facility] | | | | + + + + + + + | SALICYLATE | 2021-02-07 | [facility] | < | mg/dl | (missing) | | (MG/DL) IN | 10:05 | Health | | | | | SER/PLAS | | System - | | | | | | | [facility] | | | | + + + + + + + | TROPONIN T | 2021-02-07 | [facility] | < | ng/ml | (missing) | | CARDIAC | 10:05 | Health | | | | | (NG/ML) IN | | System - | | | | | SER/PLAS | | [facility] | | | | + + + + + + + | TROPONIN T | 2021-02-07 | [facility] | < | ng/ml | (missing) | | CARDIAC | 10:05 | Health | | | | | (NG/ML) IN | | System - | | | | | SER/PLAS | | [facility] | | | | + + + + + + + | | 2021-02-07 | [facility] | 0.04 | ng/ml | (missing) | | PROCALCITONI | 10:05 | Health | | | | | N | | System - | | | | | | | [facility] | | | | + + + + + + + | | 2021-02-07 | [facility] | 0.04 | ng/ml | (missing) | | PROCALCITONI | 10:05 | Health | | | | | N | | System - | | | | | | | [facility] | | | | + + + + + + + | BILIRUBIN | 2021-02-07 | [facility] | 0.3 | mg/dl | (missing) | | TOTAL | 10:05 | Health | | | | | (MG/DL) IN | | System - | | | | | SER/PLAS | | [facility] | | | | + + + + + + + | BILIRUBIN | 2021-02-07 | [facility] | 0.3 | mg/dl | (missing) | | TOTAL | 10:05 | Health | | | | | (MG/DL) IN | | System - | | | | | SER/PLAS | | [facility] | | | | + + + + + + + | CREATININE | 2021-02-07 | [facility] | 0.6 | mg/dl | (missing) | | (MG/DL) IN | 10:05 | Health | | | | | SER/PLAS | | System - | | | | | | | [facility] | | | | + + + + + + + | CREATININE | 2021-02-07 | [facility] | 0.6 | mg/dl | (missing) | | (MG/DL) IN | 10:05 | Health | | | | | SER/PLAS | | System - | | | | | | | [facility] | | | | + + + + + + + | POCT BASE | 2021-02-07 | [facility] | 1.0 | mmol/l | (missing) | | EXCESS CALC | 10:05 | Health | | | | | BLOOD VENOUS | | System - | | | | | | | [facility] | | | | + + + + + + + | | 2021-02-07 | [facility] | 1.63 | :1 | (missing) | | ALBUMIN/GLOB | 10:05 | Health | | | | | ULIN (A/G | | System - | | | | | RATIO) IN | | [facility] | | | | | SER/PLAS | | | | | | + + + + + + + | | 2021-02-07 | [facility] | 1.63 | :1 | (missing) | | ALBUMIN/GLOB | 10:05 | Health | | | | | ULIN (A/G | | System - | | | | | RATIO) IN | | [facility] | | | | | SER/PLAS | | | | | | + + + + + + + | ANION GAP | 2021-02-07 | [facility] | 10.0 | mmol/l | (missing) | | IN SER/PLAS | 10:05 | Health | | | | | | | System - | | | | | | | [facility] | | | | + + + + + + + | ANION GAP | 2021-02-07 | [facility] | 10.0 | mmol/l | (missing) | | IN SER/PLAS | 10:05 | Health | | | | | | | System - | | | | | | | [facility] | | | | + + + + + + + | CHLORIDE | 2021-02-07 | [facility] | 106 | mmol/l | (missing) | | (MMOL/L) IN | 10:05 | Health | | | | | SER/PLAS | | System - | | | | | | | [facility] | | | | + + + + + + + | CHLORIDE | 2021-02-07 | [facility] | 106 | mmol/l | (missing) | | (MMOL/L) IN | 10:05 | Health | | | | | SER/PLAS | | System - | | | | | | | [facility] | | | | + + + + + + + | SODIUM | 2021-02-07 | [facility] | 139 | mmol/l | (missing) | | (MMOL/L) IN | 10:05 | Health | | | | | SER/PLAS | | System - | | | | | | | [facility] | | | | + + + + + + + | SODIUM | 2021-02-07 | [facility] | 139 | mmol/l | (missing) | | (MMOL/L) IN | 10:05 | Health | | | | | SER/PLAS | | System - | | | | | | | [facility] | | | | + + + + + + + | ASPARTATE | 2021-02-07 | [facility] | 16 | u/l | (missing) | | AMINOTRANSFE | 10:05 | Health | | | | | RASE (SGOT) | | System - | | | | | (U/L) IN | | [facility] | | | | | SER/PLAS | | | | | | + + + + + + + | ASPARTATE | 2021-02-07 | [facility] | 16 | u/l | (missing) | | AMINOTRANSFE | 10:05 | Health | | | | | RASE (SGOT) | | System - | | | | | (U/L) IN | | [facility] | | | | | SER/PLAS | | | | | | + + + + + + + | GLOBULIN | 2021-02-07 | [facility] | 2.4 | g/dl | (missing) | | (G/DL) IN | 10:05 | Health | | | | | SER/PLAS | | System - | | | | | | | [facility] | | | | + + + + + + + | GLOBULIN | 2021-02-07 | [facility] | 2.4 | g/dl | (missing) | | (G/DL) IN | 10:05 | Health | | | | | SER/PLAS | | System - | | | | | | | [facility] | | | | + + + + + + + | CARBON | 2021-02-07 | [facility] | 23 | mmol/l | (missing) | | DIOXIDE | 10:05 | Health | | | | | (CO2), TOTAL | | System - | | | | | (MMOL/L) IN | | [facility] | | | | | SER/PLAS | | | | | | + + + + + + + | CARBON | 2021-02-07 | [facility] | 23 | mmol/l | (missing) | | DIOXIDE | 10:05 | Health | | | | | (CO2), TOTAL | | System - | | | | | (MMOL/L) IN | | [facility] | | | | | SER/PLAS | | | | | | + + + + + + + | POCT HCO3 | 2021-02-07 | [facility] | 25 | mmol/l | (missing) | | CALC BLOOD | 10:05 | Health | | | | | VENOUS | | System - | | | | | | | [facility] | | | | + + + + + + + | POCT TCO2 | 2021-02-07 | [facility] | 26 | mmol/l | (missing) | | CALC BLOOD | 10:05 | Health | | | | | VENOUS | | System - | | | | | | | [facility] | | | | + + + + + + + | ALBUMIN | 2021-02-07 | [facility] | 3.9 | g/dl | (missing) | | (G/DL) IN | 10:05 | Health | | | | | SER/PLAS | | System - | | | | | | | [facility] | | | | + + + + + + + | ALBUMIN | 2021-02-07 | [facility] | 3.9 | g/dl | (missing) | | (G/DL) IN | 10:05 | Health | | | | | SER/PLAS | | System - | | | | | | | [facility] | | | | + + + + + + + | POCT PCO2 | 2021-02-07 | [facility] | 36 | mm hg | (missing) | | (37C) BLOOD | 10:05 | Health | | | | | VENOUS | | System - | | | | | | | [facility] | | | | + + + + + + + | POTASSIUM | 2021-02-07 | [facility] | 4.1 | mmol/l | (missing) | | (MMOL/L) IN | 10:05 | Health | | | | | SER/PLAS | | System - | | | | | | | [facility] | | | | + + + + + + + | POTASSIUM | 2021-02-07 | [facility] | 4.1 | mmol/l | (missing) | | (MMOL/L) IN | 10:05 | Health | | | | | SER/PLAS | | System - | | | | | | | [facility] | | | | + + + + + + + | POCT PO2 | 2021-02-07 | [facility] | 43 | mm hg | (missing) | | (37C) BLOOD | 10:05 | Health | | | | | VENOUS | | System - | | | | | | | [facility] | | | | + + + + + + + | ALKALINE | 2021-02-07 | [facility] | 59 | u/l | (missing) | | PHOSPHATASE | 10:05 | Health | | | | | (U/L) IN | | System - | | | | | SER/PLAS | | [facility] | | | | + + + + + + + | ALKALINE | 2021-02-07 | [facility] | 59 | u/l | (missing) | | PHOSPHATASE | 10:05 | Health | | | | | (U/L) IN | | System - | | | | | SER/PLAS | | [facility] | | | | + + + + + + + | ALANINE | 2021-02-07 | [facility] | 6 | u/l | (missing) | | AMINOTRANSFE | 10:05 | Health | | | | | RASE (SGPT) | | System - | | | | | (U/L) IN | | [facility] | | | | | SER/PLAS | | | | | | + + + + + + + | ALANINE | 2021-02-07 | [facility] | 6 | u/l | (missing) | | AMINOTRANSFE | 10:05 | Health | | | | | RASE (SGPT) | | System - | | | | | (U/L) IN | | [facility] | | | | | SER/PLAS | | | | | | + + + + + + + | PROTEIN | 2021-02-07 | [facility] | 6.3 | g/dl | (missing) | | (G/DL) IN | 10:05 | Health | | | | | SER/PLAS | | System - | | | | | | | [facility] | | | | + + + + + + + | PROTEIN | 2021-02-07 | [facility] | 6.3 | g/dl | (missing) | | (G/DL) IN | 10:05 | Health | | | | | SER/PLAS | | System - | | | | | | | [facility] | | | | + + + + + + + | POCT PH | 2021-02-07 | [facility] | 7.45 | ph | (missing) | | (37C) BLOOD | 10:05 | Health | | | | | VENOUS | | System - | | | | | | | [facility] | | | | + + + + + + + | BLOOD UREA | 2021-02-07 | [facility] | 8 | mg/dl | (missing) | | NITROGEN | 10:05 | Health | | | | | (BUN) | | System - | | | | | (MG/DL) IN | | [facility] | | | | | SER/PLAS | | | | | | + + + + + + + | BLOOD UREA | 2021-02-07 | [facility] | 8 | mg/dl | (missing) | | NITROGEN | 10:05 | Health | | | | | (BUN) | | System - | | | | | (MG/DL) IN | | [facility] | | | | | SER/PLAS | | | | | | + + + + + + + | POCT O2 | 2021-02-07 | [facility] | 82 | % | (missing) | | SATURATION | 10:05 | Health | | | | | CALC BLOOD | | System - | | | | | VENOUS | | [facility] | | | | + + + + + + + | FERRITIN | 2021-02-07 | [facility] | 86.1 | ng/ml | (missing) | | (NG/ML) IN | 10:05 | Health | | | | | SER/PLAS | | System - | | | | | | | [facility] | | | | + + + + + + + | FERRITIN | 2021-02-07 | [facility] | 86.1 | ng/ml | (missing) | | (NG/ML) IN | 10:05 | Health | | | | | SER/PLAS | | System - | | | | | | | [facility] | | | | + + + + + + + | CALCIUM | 2021-02-07 | [facility] | 9.1 | mg/dl | (missing) | | (MG/DL) IN | 10:05 | Health | | | | | SER/PLAS | | System - | | | | | | | [facility] | | | | + + + + + + + | CALCIUM | 2021-02-07 | [facility] | 9.1 | mg/dl | (missing) | | (MG/DL) IN | 10:05 | Health | | | | | SER/PLAS | | System - | | | | | | | [facility] | | | | + + + + + + + | GLUCOSE, | 2021-02-07 | [facility] | 91 | mg/dl | (missing) | | RANDOM | 10:05 | Health | | | | | (MG/DL) IN | | System - | | | | | SER/PLAS | | [facility] | | | | + + + + + + + | GLUCOSE, | 2021-02-07 | [facility] | 91 | mg/dl | (missing) | | RANDOM | 10:05 | Health | | | | | (MG/DL) IN | | System - | | | | | SER/PLAS | | [facility] | | | | + + + + + + + | [facility] QUAL | 2021-02-07 | [facility] | Negative | (missing) | (missing) | | (CHORIOGONAD | 10: | Health | | | | | OTROPIN) IN | | System - | | | | | SER/PLAS | | [facility] | | | | + + + + + + + | [facility] QUAL | 2021-02-07 | [facility] | Negative | (missing) | (missing) | | (CHORIOGONAD | 10:05 | Health | | | | | OTROPIN) IN | | System - | | | | | SER/PLAS | | [facility] | | | | + + + + + + + + + | Result panel 29 | + + + + + +--------+ + + | EGFR | 2021-03-11 | [facility] | > | | (missing) | | (GLOMERULAR | 18:23 | Health | | ml/min/1.73m | | | FILTRATION | | System - | | ? | | | RATE) | | [facility] | | | | | ML/MIN/1.73 | | | | | | | SQ M. | | | | | | + + + +--------+ + + | EGFR | 2021-03-11 | [facility] | > | | (missing) | | (GLOMERULAR | 18:23 | Health | | ml/min/1.73m | | | FILTRATION | | System - | | ? | | | RATE) | | [facility] | | | | | ML/MIN/1.73 | | | | | | | SQ M. | | | | | | + + + +--------+ + + | NRBC/100 | 2021-03-11 | [facility] | 0.0 | % | (missing) | | WBCS BY | 18:23 | Health | | | | | AUTOMATED | | System - | | | | | COUNT | | [facility] | | | | + + + +--------+ + + | NRBC/100 | 2021-03-11 | [facility] | 0.0 | % | (missing) | | WBCS BY | 18:23 | Health | | | | | AUTOMATED | | System - | | | | | COUNT | | [facility] | | | | + + + +--------+ + + | | 2021-03-11 | [facility] | 0.0 | k/mcl | (missing) | | NRBC(10*3/UL | 18:23 | Health | | | | | ) IN BLOOD | | System - | | | | | BY AUTOMATED | | [facility] | | | | | COUNT | | | | | | + + + +--------+ + + | | 2021-03-11 | [facility] | 0.0 | k/mcl | (missing) | | NRBC(10*3/UL | 18:23 | Health | | | | | ) IN BLOOD | | System - | | | | | BY AUTOMATED | | [facility] | | | | | COUNT | | | | | | + + + +--------+ + + | IMMATURE | 2021-03-11 | [facility] | 0.03 | k/mcl | (missing) | | GRANULOCYTE | 18: | Health | | | | | (ABS) | | System - | | | | | | | [facility] | | | | + + + +--------+ + + | IMMATURE | 2021-03-11 | [facility] | 0.03 | k/mcl | (missing) | | GRANULOCYTE | 18:23 | Health | | | | | (ABS) | | System - | | | | | | | [facility] | | | | + + + +--------+ + + | BASOPHILS | 2021-03-11 | [facility] | 0.1 | k/mcl | (missing) | | (10*3/UL) IN | 18:23 | Health | | | | | BLOOD BY | | System - | | | | | AUTOMATED | | [facility] | | | | | COUNT | | | | | | + + + +--------+ + + | BASOPHILS | 2021-03-11 | [facility] | 0.1 | k/mcl | (missing) | | (10*3/UL) IN | 18:23 | Health | | | | | BLOOD BY | | System - | | | | | AUTOMATED | | [facility] | | | | | COUNT | | | | | | + + + +--------+ + + | EOSINOPHILS | 2021-03-11 | [facility] | 0.2 | k/mcl | (missing) | | (10*3/UL) | 18:23 | Health | | | | | IN BLOOD BY | | System - | | | | | AUTOMATED | | [facility] | | | | | COUNT | | | | | | + + + +--------+ + + | EOSINOPHILS | 2021-03-11 | [facility] | 0.2 | k/mcl | (missing) | | (10*3/UL) | 18:23 | Health | | | | | IN BLOOD BY | | System - | | | | | AUTOMATED | | [facility] | | | | | COUNT | | | | | | + + + +--------+ + + | IMMATURE | 2021-03-11 | [facility] | 0.3 | % | (missing) | | GRANULOCYTE | 18:23 | Health | | | | | % (AUTO) | | System - | | | | | | | [facility] | | | | + + + +--------+ + + | IMMATURE | 2021-03-11 | [facility] | 0.3 | % | (missing) | | GRANULOCYTE | 18:23 | Health | | | | | % (AUTO) | | System - | | | | | | | [facility] | | | | + + + +--------+ + + | BILIRUBIN | 2021-03-11 | [facility] | 0.3 | mg/dl | (missing) | | TOTAL | 18:23 | Health | | | | | (MG/DL) IN | | System - | | | | | SER/PLAS | | [facility] | | | | + + + +--------+ + + | BILIRUBIN | 2021-03-11 | [facility] | 0.3 | mg/dl | (missing) | | TOTAL | 18:23 | Health | | | | | (MG/DL) IN | | System - | | | | | SER/PLAS | | [facility] | | | | + + + +--------+ + + | | 2021-03-11 | [facility] | 0.6 | % | (missing) | | BASOPHILS/10 | 18:23 | Health | | | | | 0 LEUKOCYTES | | System - | | | | | IN BLOOD BY | | [facility] | | | | | AUTOMATED | | | | | | | COUNT | | | | | | + + + +--------+ + + | | 2021-03-11 | [facility] | 0.6 | % | (missing) | | BASOPHILS/10 | 18:23 | Health | | | | | 0 LEUKOCYTES | | System - | | | | | IN BLOOD BY | | [facility] | | | | | AUTOMATED | | | | | | | COUNT | | | | | | + + + +--------+ + + | CREATININE | 2021-03-11 | [facility] | 0.7 | mg/dl | (missing) | | (MG/DL) IN | 18:23 | Health | | | | | SER/PLAS | | System - | | | | | | | [facility] | | | | + + + +--------+ + + | CREATININE | 2021-03-11 | [facility] | 0.7 | mg/dl | (missing) | | (MG/DL) IN | 18:23 | Health | | | | | SER/PLAS | | System - | | | | | | | [facility] | | | | + + + +--------+ + + | MONOCYTES | 2021-03-11 | [facility] | 0.8 | k/mcl | (missing) | | (10*3/UL) IN | 18:23 | Health | | | | | BLOOD BY | | System - | | | | | AUTOMATED | | [facility] | | | | | COUNT | | | | | | + + + +--------+ + + | MONOCYTES | 2021-03-11 | [facility] | 0.8 | k/mcl | (missing) | | (10*3/UL) IN | 18:23 | Health | | | | | BLOOD BY | | System - | | | | | AUTOMATED | | [facility] | | | | | COUNT | | | | | | + + + +--------+ + + | | 2021-03-11 | [facility] | 1.87 | :1 | (missing) | | ALBUMIN/GLOB | 18:23 | Health | | | | | ULIN (A/G | | System - | | | | | RATIO) IN | | [facility] | | | | | SER/PLAS | | | | | | + + + +--------+ + + | | 2021-03-11 | [facility] | 1.87 | :1 | (missing) | | ALBUMIN/GLOB | 18:23 | Health | | | | | ULIN (A/G | | System - | | | | | RATIO) IN | | [facility] | | | | | SER/PLAS | | | | | | + + + +--------+ + + | | 2021-03-11 | [facility] | 10.1 | k/mcl | (missing) | | LEUKOCYTES(1 | 18:23 | Health | | | | | 0*3/UL) IN | | System - | | | | | BLOOD BY | | [facility] | | | | | AUTOMATED | | | | | | | COUNT | | | | | | + + + +--------+ + + | | 2021-03-11 | [facility] | 10.1 | k/mcl | (missing) | | LEUKOCYTES(1 | 18:23 | Health | | | | | 0*3/UL) IN | | System - | | | | | BLOOD BY | | [facility] | | | | | AUTOMATED | | | | | | | COUNT | | | | | | + + + +--------+ + + | CHLORIDE | 2021-03-11 | [facility] | 106 | mmol/l | (missing) | | (MMOL/L) IN | 18: | Health | | | | | SER/PLAS | | System - | | | | | | | [facility] | | | | + + + +--------+ + + | CHLORIDE | 2021-03-11 | [facility] | 106 | mmol/l | (missing) | | (MMOL/L) IN | 18:23 | Health | | | | | SER/PLAS | | System - | | | | | | | [facility] | | | | + + + +--------+ + + | ANION GAP | 2021-03-11 | [facility] | 11.0 | mmol/l | (missing) | | IN SER/PLAS | 18:23 | Health | | | | | | | System - | | | | | | | [facility] | | | | + + + +--------+ + + | ANION GAP | 2021-03-11 | [facility] | 11.0 | mmol/l | (missing) | | IN SER/PLAS | 18:23 | Health | | | | | | | System - | | | | | | | [facility] | | | | + + + +--------+ + + | ERYTHROCYTE | 2021-03-11 | [facility] | 12.2 | % | (missing) | | | 18:23 | Health | | | | | DISTRIBUTION | | System - | | | | | WIDTH | | [facility] | | | | | (RATIO) BY | | | | | | | AUTOMATED | | | | | | | COUNT | | | | | | + + + +--------+ + + | ERYTHROCYTE | 2021-03-11 | [facility] | 12.2 | % | (missing) | | | 18:23 | Health | | | | | DISTRIBUTION | | System - | | | | | WIDTH | | [facility] | | | | | (RATIO) BY | | | | | | | AUTOMATED | | | | | | | COUNT | | | | | | + + + +--------+ + + | GLUCOSE, | 2021-03-11 | [facility] | 129 | mg/dl | (missing) | | RANDOM | 18:23 | Health | | | | | (MG/DL) IN | | System - | | | | | SER/PLAS | | [facility] | | | | + + + +--------+ + + | GLUCOSE, | 2021-03-11 | [facility] | 129 | mg/dl | (missing) | | RANDOM | 18:23 | Health | | | | | (MG/DL) IN | | System - | | | | | SER/PLAS | | [facility] | | | | + + + +--------+ + + | BLOOD UREA | 2021-03-11 | [facility] | 13 | mg/dl | (missing) | | NITROGEN | 18:23 | Health | | | | | (BUN) | | System - | | | | | (MG/DL) IN | | [facility] | | | | | SER/PLAS | | | | | | + + + +--------+ + + | BLOOD UREA | 2021-03-11 | [facility] | 13 | mg/dl | (missing) | | NITROGEN | 18:23 | Health | | | | | (BUN) | | System - | | | | | (MG/DL) IN | | [facility] | | | | | SER/PLAS | | | | | | + + + +--------+ + + | ALANINE | 2021-03-11 | [facility] | 13 | u/l | (missing) | | AMINOTRANSFE | 18:23 | Health | | | | | RASE (SGPT) | | System - | | | | | (U/L) IN | | [facility] | | | | | SER/PLAS | | | | | | + + + +--------+ + + | ALANINE | 2021-03-11 | [facility] | 13 | u/l | (missing) | | AMINOTRANSFE | 18:23 | Health | | | | | RASE (SGPT) | | System - | | | | | (U/L) IN | | [facility] | | | | | SER/PLAS | | | | | | + + + +--------+ + + | SODIUM | 2021-03-11 | [facility] | 138 | mmol/l | (missing) | | (MMOL/L) IN | 18 | Health | | | | | SER/PLAS | | System - | | | | | | | [facility] | | | | + + + +--------+ + + | SODIUM | 2021-03-11 | [facility] | 138 | mmol/l | (missing) | | (MMOL/L) IN | 18:23 | Health | | | | | SER/PLAS | | System - | | | | | | | [facility] | | | | + + + +--------+ + + | HEMOGLOBIN | 2021-03-11 | [facility] | 14.4 | g/dl | (missing) | | (G/DL) IN | 18:23 | Health | | | | | BLOOD | | System - | | | | | | | [facility] | | | | + + + +--------+ + + | HEMOGLOBIN | 2021-03-11 | [facility] | 14.4 | g/dl | (missing) | | (G/DL) IN | 18:23 | Health | | | | | BLOOD | | System - | | | | | | | [facility] | | | | + + + +--------+ + + | ASPARTATE | 2021-03-11 | [facility] | 16 | u/l | (missing) | | AMINOTRANSFE | 18:23 | Health | | | | | RASE (SGOT) | | System - | | | | | (U/L) IN | | [facility] | | | | | SER/PLAS | | | | | | + + + +--------+ + + | ASPARTATE | 2021-03-11 | [facility] | 16 | u/l | (missing) | | AMINOTRANSFE | 18:23 | Health | | | | | RASE (SGOT) | | System - | | | | | (U/L) IN | | [facility] | | | | | SER/PLAS | | | | | | + + + +--------+ + + | | 2021-03-11 | [facility] | 2.0 | % | (missing) | | EOSINOPHILS/ | 18:23 | Health | | | | | 100 | | System - | | | | | LEUKOCYTES | | [facility] | | | | | IN BLOOD BY | | | | | | | AUTOMATED | | | | | | | COUNT | | | | | | + + + +--------+ + + | | 2021-03-11 | [facility] | 2.0 | % | (missing) | | EOSINOPHILS/ | 18:23 | Health | | | | | 100 | | System - | | | | | LEUKOCYTES | | [facility] | | | | | IN BLOOD BY | | | | | | | AUTOMATED | | | | | | | COUNT | | | | | | + + + +--------+ + + | GLOBULIN | 2021-03-11 | [facility] | 2.3 | g/dl | (missing) | | (G/DL) IN | 18:23 | Health | | | | | SER/PLAS | | System - | | | | | | | [facility] | | | | + + + +--------+ + + | GLOBULIN | 2021-03-11 | [facility] | 2.3 | g/dl | (missing) | | (G/DL) IN | 18:23 | Health | | | | | SER/PLAS | | System - | | | | | | | [facility] | | | | + + + +--------+ + + | CARBON | 2021-03-11 | [facility] | 21 | mmol/l | (missing) | | DIOXIDE | 18:23 | Health | | | | | (CO2), TOTAL | | System - | | | | | (MMOL/L) IN | | [facility] | | | | | SER/PLAS | | | | | | + + + +--------+ + + | CARBON | 2021-03-11 | [facility] | 21 | mmol/l | (missing) | | DIOXIDE | 18:23 | Health | | | | | (CO2), TOTAL | | System - | | | | | (MMOL/L) IN | | [facility] | | | | | SER/PLAS | | | | | | + + + +--------+ + + | | 2021-03-11 | [facility] | 29.7 | % | (missing) | | LYMPHOCYTES/ | 18:23 | Health | | | | | 100 | | System - | | | | | LEUKOCYTES | | [facility] | | | | | IN BLOOD BY | | | | | | | AUTOMATED | | | | | | | COUNT | | | | | | + + + +--------+ + + | | 2021-03-11 | [facility] | 29.7 | % | (missing) | | LYMPHOCYTES/ | 18:23 | Health | | | | | 100 | | System - | | | | | LEUKOCYTES | | [facility] | | | | | IN BLOOD BY | | | | | | | AUTOMATED | | | | | | | COUNT | | | | | | + + + +--------+ + + | LYMPHOCYTES | 2021-03-11 | [facility] | 3.0 | k/mcl | (missing) | | (10*3/UL) | 18:23 | Health | | | | | IN BLOOD BY | | System - | | | | | AUTOMATED | | [facility] | | | | | COUNT | | | | | | + + + +--------+ + + | LYMPHOCYTES | 2021-03-11 | [facility] | 3.0 | k/mcl | (missing) | | (10*3/UL) | 18:23 | Health | | | | | IN BLOOD BY | | System - | | | | | AUTOMATED | | [facility] | | | | | COUNT | | | | | | + + + +--------+ + + | POTASSIUM | 2021-03-11 | [facility] | 3.3 | mmol/l | (missing) | | (MMOL/L) IN | 18:23 | Health | | | | | SER/PLAS | | System - | | | | | | | [facility] | | | | + + + +--------+ + + | POTASSIUM | 2021-03-11 | [facility] | 3.3 | mmol/l | (missing) | | (MMOL/L) IN | 18:23 | Health | | | | | SER/PLAS | | System - | | | | | | | [facility] | | | | + + + +--------+ + + | ERYTHROCYTE | 2021-03-11 | [facility] | 30.4 | pg | (missing) | | MEAN | 18:23 | Health | | | | | CORPUSCULAR | | System - | | | | | HEMOGLOBIN | | [facility] | | | | | (PG) BY | | | | | | | AUTOMATED | | | | | | | COUNT | | | | | | + + + +--------+ + + | ERYTHROCYTE | 2021-03-11 | [facility] | 30.4 | pg | (missing) | | MEAN | 18:23 | Health | | | | | CORPUSCULAR | | System - | | | | | HEMOGLOBIN | | [facility] | | | | | (PG) BY | | | | | | | AUTOMATED | | | | | | | COUNT | | | | | | + + + +--------+ + + | ERYTHROCYTE | 2021-03-11 | [facility] | 34.4 | g/dl | (missing) | | MEAN | 18:23 | Health | | | | | CORPUSCULAR | | System - | | | | | HEMOGLOBIN | | [facility] | | | | | CONCENTRATIO | | | | | | | N (G/DL) BY | | | | | | | AUTOMATED | | | | | | + + + +--------+ + + | ERYTHROCYTE | 2021-03-11 | [facility] | 34.4 | g/dl | (missing) | | MEAN | 18:23 | Health | | | | | CORPUSCULAR | | System - | | | | | HEMOGLOBIN | | [facility] | | | | | CONCENTRATIO | | | | | | | N (G/DL) BY | | | | | | | AUTOMATED | | | | | | + + + +--------+ + + | PLATELETS | 2021-03-11 | [facility] | 369 | k/mcl | (missing) | | (10*3/UL) IN | 18: | Health | | | | | BLOOD | | System - | | | | | AUTOMATED | | [facility] | | | | | COUNT | | | | | | + + + +--------+ + + | PLATELETS | 2021-03-11 | [facility] | 369 | k/mcl | (missing) | | (10*3/UL) IN | 18:23 | Health | | | | | BLOOD | | System - | | | | | AUTOMATED | | [facility] | | | | | COUNT | | | | | | + + + +--------+ + + | ALBUMIN | 2021-03-11 | [facility] | 4.3 | g/dl | (missing) | | (G/DL) IN | 18:23 | Health | | | | | SER/PLAS | | System - | | | | | | | [facility] | | | | + + + +--------+ + + | ALBUMIN | 2021-03-11 | [facility] | 4.3 | g/dl | (missing) | | (G/DL) IN | 18:23 | Health | | | | | SER/PLAS | | System - | | | | | | | [facility] | | | | + + + +--------+ + + | | 2021-03-11 | [facility] | 4.73 | m/mcl | (missing) | | ERYTHROCYTES | 18:23 | Health | | | | | (10*6/UL) | | System - | | | | | IN BLOOD BY | | [facility] | | | | | AUTOMATED | | | | | | | COUNT | | | | | | + + + +--------+ + + | | 2021-03-11 | [facility] | 4.73 | m/mcl | (missing) | | ERYTHROCYTES | 18:23 | Health | | | | | (10*6/UL) | | System - | | | | | IN BLOOD BY | | [facility] | | | | | AUTOMATED | | | | | | | COUNT | | | | | | + + + +--------+ + + | HEMATOCRIT | 2021-03-11 | [facility] | 41.9 | % | (missing) | | (%) IN BLOOD | 18:23 | Health | | | | | BY | | System - | | | | | AUTOMATED | | [facility] | | | | | COUNT | | | | | | + + + +--------+ + + | HEMATOCRIT | 2021-03-11 | [facility] | 41.9 | % | (missing) | | (%) IN BLOOD | 18:23 | Health | | | | | BY | | System - | | | | | AUTOMATED | | [facility] | | | | | COUNT | | | | | | + + + +--------+ + + | NEUTROPHILS | 2021-03-11 | [facility] | 6.1 | k/mcl | (missing) | | (10*3/UL) | 18:23 | Health | | | | | IN BLOOD BY | | System - | | | | | AUTOMATED | | [facility] | | | | | COUNT | | | | | | + + + +--------+ + + | NEUTROPHILS | 2021-03-11 | [facility] | 6.1 | k/mcl | (missing) | | (10*3/UL) | 18:23 | Health | | | | | IN BLOOD BY | | System - | | | | | AUTOMATED | | [facility] | | | | | COUNT | | | | | | + + + +--------+ + + | PROTEIN | 2021-03-11 | [facility] | 6.6 | g/dl | (missing) | | (G/DL) IN | 18:23 | Health | | | | | SER/PLAS | | System - | | | | | | | [facility] | | | | + + + +--------+ + + | PROTEIN | 2021-03-11 | [facility] | 6.6 | g/dl | (missing) | | (G/DL) IN | 18:23 | Health | | | | | SER/PLAS | | System - | | | | | | | [facility] | | | | + + + +--------+ + + | | 2021-03-11 | [facility] | 60.0 | % | (missing) | | NEUTROPHILS/ | 18:23 | Health | | | | | 100 | | System - | | | | | LEUKOCYTES | | [facility] | | | | | IN BLOOD BY | | | | | | | AUTOMATED | | | | | | | COUNT | | | | | | + + + +--------+ + + | | 2021-03-11 | [facility] | 60.0 | % | (missing) | | NEUTROPHILS/ | 18:23 | Health | | | | | 100 | | System - | | | | | LEUKOCYTES | | [facility] | | | | | IN BLOOD BY | | | | | | | AUTOMATED | | | | | | | COUNT | | | | | | + + + +--------+ + + | ALKALINE | 2021-03-11 | [facility] | 64 | u/l | (missing) | | PHOSPHATASE | 18:23 | Health | | | | | (U/L) IN | | System - | | | | | SER/PLAS | | [facility] | | | | + + + +--------+ + + | ALKALINE | 2021-03-11 | [facility] | 64 | u/l | (missing) | | PHOSPHATASE | 18:23 | Health | | | | | (U/L) IN | | System - | | | | | SER/PLAS | | [facility] | | | | + + + +--------+ + + | | 2021-03-11 | [facility] | 7.4 | % | (missing) | | MONOCYTES/10 | 18:23 | Health | | | | | 0 LEUKOCYTES | | System - | | | | | IN BLOOD BY | | [facility] | | | | | AUTOMATED | | | | | | | COUNT | | | | | | + + + +--------+ + + | | 2021-03-11 | [facility] | 7.4 | % | (missing) | | MONOCYTES/10 | 18:23 | Health | | | | | 0 LEUKOCYTES | | System - | | | | | IN BLOOD BY | | [facility] | | | | | AUTOMATED | | | | | | | COUNT | | | | | | + + + +--------+ + + | ERYTHROCYTE | 2021-03-11 | [facility] | 88.6 | fl | (missing) | | MEAN | 18:23 | Health | | | | | CORPUSCULAR | | System - | | | | | VOLUME (FL) | | [facility] | | | | | BY AUTOMATED | | | | | | | COUNT | | | | | | + + + +--------+ + + | ERYTHROCYTE | 2021-03-11 | [facility] | 88.6 | fl | (missing) | | MEAN | 18:23 | Health | | | | | CORPUSCULAR | | System - | | | | | VOLUME (FL) | | [facility] | | | | | BY AUTOMATED | | | | | | | COUNT | | | | | | + + + +--------+ + + | CALCIUM | 2021-03-11 | [facility] | 9.4 | mg/dl | (missing) | | (MG/DL) IN | 18:23 | Health | | | | | SER/PLAS | | System - | | | | | | | [facility] | | | | + + + +--------+ + + | CALCIUM | 2021-03-11 | [facility] | 9.4 | mg/dl | (missing) | | (MG/DL) IN | 18:23 | Health | | | | | SER/PLAS | | System - | | | | | | | [facility] | | | | + + + +--------+ + + | PLATELET | 2021-03-11 | [facility] | 9.6 | fl | (missing) | | MEAN VOLUME | 18:23 | Health | | | | | (FL) IN | | System - | | | | | BLOOD BY | | [facility] | | | | | AUTOMATED | | | | | | | COUNT | | | | | | + + + +--------+ + + | PLATELET | 2021-03-11 | [facility] | 9.6 | fl | (missing) | | MEAN VOLUME | 18:23 | Health | | | | | ([place]) IN | | System - | | | | | BLOOD BY | | [facility] | | | | | AUTOMATED | | | | | | | COUNT | | | | | | + + + +--------+ + + + + | Result panel 30 | + + + + + + + + + | ALCOHOL | 2021-03-11 | [facility] | < | g/dl | (missing) | | (G/DL) IN | 18:24 | Health | | | | | SER/PLAS | | System - | | | | | | | [facility] | | | | + + + + + + + | ALCOHOL | 2021-03-11 | [facility] | < | g/dl | (missing) | | (G/DL) IN | 18:24 | Health | | | | | SER/PLAS | | System - | | | | | | | [facility] | | | | + + + + + + + | | 2021-03-11 | [facility] | < | mcg/ml | (missing) | | ACETAMINOPHE | 18:24 | Health | | | | | N (UG/ML) IN | | System - | | | | | SER/PLAS | | [facility] | | | | + + + + + + + | | 2021-03-11 | [facility] | < | mcg/ml | (missing) | | ACETAMINOPHE | 18:24 | Health | | | | | N (UG/ML) IN | | System - | | | | | SER/PLAS | | [facility] | | | | + + + + + + + | SALICYLATE | 2021-03-11 | [facility] | < | mg/dl | (missing) | | (MG/DL) IN | 18:24 | Health | | | | | SER/PLAS | | System - | | | | | | | [facility] | | | | + + + + + + + | SALICYLATE | 2021-03-11 | [facility] | < | mg/dl | (missing) | | (MG/DL) IN | 18:24 | Health | | | | | SER/PLAS | | System - | | | | | | | [facility] | | | | + + + + + + + | | 2021-03-11 | [facility] | Negative | (missing) | (missing) | | BARBITURATES | 18:24 | Health | | | | | PRESENCE IN | | System - | | | | | URINE BY | | [facility] | | | | | SCREEN | | | | | | | METHOD | | | | | | + + + + + + + | | 2021-03-11 | [facility] | Negative | (missing) | (missing) | | BENZODIAZEPI | 18:24 | Health | | | | | SURYA | | System - | | | | | (PRESENCE) | | [facility] | | | | | IN URINE BY | | | | | | | SCREEN | | | | | | | METHOD | | | | | | + + + + + + + | COCAINE | 2021-03-11 | [facility] | Negative | (missing) | (missing) | | (PRESENCE) | 18:24 | Health | | | | | IN URINE BY | | System - | | | | | SCREEN | | [facility] | | | | | METHOD | | | | | | + + + + + + + | METHADONE | 2021-03-11 | [facility] | Negative | (missing) | (missing) | | (PRESENCE) | 18:24 | Health | | | | | IN URINE BY | | System - | | | | | SCREEN | | [facility] | | | | | METHOD | | | | | | + + + + + + + | OPIATES | 2021-03-11 | [facility] | Negative | (missing) | (missing) | | (PRESENCE) | 18:24 | Health | | | | | IN URINE BY | | System - | | | | | SCREEN | | [facility] | | | | | METHOD | | | | | | + + + + + + + | OXYCODONE | 2021-03-11 | [facility] | Negative | (missing) | (missing) | | (PRESENCE) | 18:24 | Health | | | | | IN URINE BY | | System - | | | | | SCREEN | | [facility] | | | | | METHOD | | | | | | + + + + + + + | | 2021-03-11 | [facility] | Negative | (missing) | (missing) | | PHENCYCLIDIN | 18:24 | Health | | | | | E (PRES[facility]) | | System - | | | | | IN URINE BY | | [facility] | | | | | SCREEN | | | | | | | METHOD | | | | | | + + + + + + + | TRICYCLIC | 2021-03-11 | [facility] | Negative | (missing) | (missing) | | ANTIDEPRESSA | 18:24 | Health | | | | | NTS | | System - | | | | | (PRESENCE) | | [facility] | | | | | IN URINE | | | | | | + + + + + + + | | 2021-03-11 | [facility] | Negative | (missing) | (missing) | | PHENCYCLIDIN | 18:24 | Health | | | | | E ([facility]) | | System - | | | | | IN URINE BY | | [facility] | | | | | SCREEN | | | | | | | METHOD | | | | | | + + + + + + + | OPIATES | 2021-03-11 | [facility] | Negative | (missing) | (missing) | | (PRESENCE) | 18:24 | Health | | | | | IN URINE BY | | System - | | | | | SCREEN | | [facility] | | | | | METHOD | | | | | | + + + + + + + | TRICYCLIC | 2021-03-11 | [facility] | Negative | (missing) | (missing) | | ANTIDEPRESSA | 18:24 | Health | | | | | NTS | | System - | | | | | (PRESENCE) | | [facility] | | | | | IN URINE | | | | | | + + + + + + + | OXYCODONE | 2021-03-11 | [facility] | Negative | (missing) | (missing) | | (PRES[facility]) | 18:24 | Health | | | | | IN URINE BY | | System - | | | | | SCREEN | | [facility] | | | | | METHOD | | | | | | + + + + + + + | [facility]CG QUAL | 2021-03-11 | [facility] | Negative | (missing) | (missing) | | (CHORIOGONAD | 18:24 | Health | | | | | OTROPIN) IN | | System - | | | | | SER/PLAS | | [facility] | | | | + + + + + + + | COCAINE | 2021-03-11 | [facility] | Negative | (missing) | (missing) | | ([facility]) | 18:24 | Health | | | | | IN URINE BY | | System - | | | | | SCREEN | | [facility] | | | | | METHOD | | | | | | + + + + + + + | | 2021-03-11 | [facility] | Negative | (missing) | (missing) | | BARBITURATES | 18:24 | Health | | | | | PRESENCE IN | | System - | | | | | URINE BY | | [facility] | | | | | SCREEN | | | | | | | METHOD | | | | | | + + + + + + + | | 2021-03-11 | [facility] | Negative | (missing) | (missing) | | BENZODIAZEPI | 18:24 | Health | | | | | SURYA | | System - | | | | | (PRESENCE) | | [facility] | | | | | IN URINE BY | | | | | | | SCREEN | | | | | | | METHOD | | | | | | + + + + + + + | METHADONE | 2021-03-11 | [facility] | Negative | (missing) | (missing) | | (PRESENCE) | 18:24 | Health | | | | | IN URINE BY | | System - | | | | | SCREEN | | [facility] | | | | | METHOD | | | | | | + + + + + + + | [facility] QUAL | 2021-03-11 | [facility] | Negative | (missing) | (missing) | | (CHORIOGONAD | 18:24 | Health | | | | | OTROPIN) IN | | System - | | | | | SER/PLAS | | [facility] | | | | + + + + + + + | | 2021-03-11 | [facility] | Presumptive | (missing) | (missing) | | METHAMPHETAM | 18:24 | Health | Positive | | | | INE | | System - | | | | | (PRESENCE) | | [facility] | | | | | IN URINE BY | | | | | | | SCREEN | | | | | | | METHOD | | | | | | + + + + + + + | THC | 2021-03-11 | [facility] | Presumptive | (missing) | (missing) | | (CANNABINOID | 18:24 | Health | Positive | | | | ) IN URINE | | System - | | | | | BY SCREEN | | [facility] | | | | | METHOD | | | | | | + + + + + + + | THC | 2021-03-11 | [facility] | Presumptive | (missing) | (missing) | | (CANNABINOID | 18:24 | Health | Positive | | | | ) IN URINE | | System - | | | | | BY SCREEN | | [facility] | | | | | METHOD | | | | | | + + + + + + + | AMPHETAMINE | 2021-03-11 | [facility] | Presumptive | (missing) | (missing) | | (PRESENCE) | 18:24 | Health | Positive | | | | IN URINE BY | | System - | | | | | SCREEN | | [facility] | | | | | METHOD | | | | | | + + + + + + + | | 2021-03-11 | [facility] | Presumptive | (missing) | (missing) | | METHAMPHETAM | 18:24 | Health | Positive | | | | INE | | System - | | | | | (PRESENCE) | | [facility] | | | | | IN URINE BY | | | | | | | SCREEN | | | | | | | METHOD | | | | | | + + + + + + + | AMPHETAMINE | 2021-03-11 | [facility] | Presumptive | (missing) | (missing) | | (PRESENCE) | 18:24 | Health | Positive | | | | IN URINE BY | | System - | | | | | SCREEN | | [facility] | | | | | METHOD | | | | | | + + + + + + + + + | Result panel 31 | + + + + + + + + + | POCT | 2021-04-14 | [facility] | Negative | (missing) | (missing) | | | | Health | | | | | TEST URINE | | System - | | | | | | | [facility] | | | | + + + + + + + + + | Result panel 32 | + + + + + + + + + | EGFR | 2021-09-25 | [facility] | > | | (missing) | | (GLOMERULAR | 23:37 | Health | | ml/min/1.73m | | | FILTRATION | | System - | | ? | | | RATE) | | [facility] | | | | | ML/MIN/1.73 | | | | | | | SQ M. | | | | | | + + + + + + + | EGFR | 2021-09-25 | [facility] | > | | (missing) | | (GLOMERULAR | 23:37 | Health | | ml/min/1.73m | | | FILTRATION | | System - | | ? | | | RATE) | | [facility] | | | | | ML/MIN/1.73 | | | | | | | SQ M. | | | | | | + + + + + + + | ALCOHOL | 2021-09-25 | [facility] | < | g/dl | (missing) | | (G/DL) IN | 23:37 | Health | | | | | SER/PLAS | | System - | | | | | | | [facility] | | | | + + + + + + + | ALCOHOL | 2021-09-25 | [facility] | < | g/dl | (missing) | | (G/DL) IN | 23:37 | Health | | | | | SER/PLAS | | System - | | | | | | | [facility] | | | | + + + + + + + | | 2021-09-25 | [facility] | < | mcg/ml | (missing) | | ACETAMINOPHE | 23:37 | Health | | | | | N (UG/ML) IN | | System - | | | | | SER/PLAS | | [facility] | | | | + + + + + + + | | 2021-09-25 | [facility] | < | mcg/ml | (missing) | | ACETAMINOPHE | 23:37 | Health | | | | | N (UG/ML) IN | | System - | | | | | SER/PLAS | | [facility] | | | | + + + + + + + | SALICYLATE | 2021-09-25 | [facility] | < | mg/dl | (missing) | | (MG/DL) IN | :37 | Health | | | | | SER/PLAS | | System - | | | | | | | [facility] | | | | + + + + + + + | SALICYLATE | 2021-09-25 | [facility] | < | mg/dl | (missing) | | (MG/DL) IN | :37 | Health | | | | | SER/PLAS | | System - | | | | | | | [facility] | | | | + + + + + + + | NRBC/100 | 2021-09-25 | [facility] | 0.0 | % | (missing) | | WBCS BY | :37 | Health | | | | | AUTOMATED | | System - | | | | | COUNT | | [facility] | | | | + + + + + + + | NRBC/100 | 2021-09-25 | [facility] | 0.0 | % | (missing) | | WBCS BY | 23:37 | Health | | | | | AUTOMATED | | System - | | | | | COUNT | | [facility] | | | | + + + + + + + | | 2021-09-25 | [facility] | 0.0 | k/mcl | (missing) | | NRBC(10*3/UL | 23:37 | Health | | | | | ) IN BLOOD | | System - | | | | | BY AUTOMATED | | [facility] | | | | | COUNT | | | | | | + + + + + + + | | 2021-09-25 | [facility] | 0.0 | k/mcl | (missing) | | NRBC(10*3/UL | 23:37 | Health | | | | | ) IN BLOOD | | System - | | | | | BY AUTOMATED | | [facility] | | | | | COUNT | | | | | | + + + + + + + | IMMATURE | 2021-09-25 | [facility] | 0.04 | k/mcl | (missing) | | GRANULOCYTE | 23:37 | Health | | | | | (ABS) | | System - | | | | | | | [facility] | | | | + + + + + + + | IMMATURE | 2021-09-25 | [facility] | 0.04 | k/mcl | (missing) | | GRANULOCYTE | 23:37 | Health | | | | | (ABS) | | System - | | | | | | | [facility] | | | | + + + + + + + | BASOPHILS | 2021-09-25 | [facility] | 0.1 | k/mcl | (missing) | | (10*3/UL) IN | 23:37 | Health | | | | | BLOOD BY | | System - | | | | | AUTOMATED | | [facility] | | | | | COUNT | | | | | | + + + + + + + | EOSINOPHILS | 2021-09-25 | [facility] | 0.1 | k/mcl | (missing) | | (10*3/UL) | 23:37 | Health | | | | | IN BLOOD BY | | System - | | | | | AUTOMATED | | [facility] | | | | | COUNT | | | | | | + + + + + + + | BASOPHILS | 2021-09-25 | [facility] | 0.1 | k/mcl | (missing) | | (10*3/UL) IN | 23:37 | Health | | | | | BLOOD BY | | System - | | | | | AUTOMATED | | [facility] | | | | | COUNT | | | | | | + + + + + + + | EOSINOPHILS | 2021-09-25 | [facility] | 0.1 | k/mcl | (missing) | | (10*3/UL) | 23:37 | Health | | | | | IN BLOOD BY | | System - | | | | | AUTOMATED | | [facility] | | | | | COUNT | | | | | | + + + + + + + | IMMATURE | 2021-09-25 | [facility] | 0.4 | % | (missing) | | GRANULOCYTE | 23:37 | Health | | | | | % (AUTO) | | System - | | | | | | | [facility] | | | | + + + + + + + | IMMATURE | 2021-09-25 | [facility] | 0.4 | % | (missing) | | GRANULOCYTE | 23:37 | Health | | | | | % (AUTO) | | System - | | | | | | | [facility] | | | | + + + + + + + | | 2021-09-25 | [facility] | 0.5 | % | (missing) | | BASOPHILS/10 | 23:37 | Health | | | | | 0 LEUKOCYTES | | System - | | | | | IN BLOOD BY | | [facility] | | | | | AUTOMATED | | | | | | | COUNT | | | | | | + + + + + + + | | 2021-09-25 | [facility] | 0.5 | % | (missing) | | BASOPHILS/10 | 23:37 | Health | | | | | 0 LEUKOCYTES | | System - | | | | | IN BLOOD BY | | [facility] | | | | | AUTOMATED | | | | | | | COUNT | | | | | | + + + + + + + | BILIRUBIN | 2021-09-25 | [facility] | 0.5 | mg/dl | (missing) | | TOTAL | 23:37 | Health | | | | | (MG/DL) IN | | System - | | | | | SER/PLAS | | [facility] | | | | + + + + + + + | BILIRUBIN | 2021-09-25 | [facility] | 0.5 | mg/dl | (missing) | | TOTAL | 23:37 | Health | | | | | (MG/DL) IN | | System - | | | | | SER/PLAS | | [facility] | | | | + + + + + + + | MONOCYTES | 2021-09-25 | [facility] | 0.6 | k/mcl | (missing) | | (10*3/UL) IN | 23:37 | Health | | | | | BLOOD BY | | System - | | | | | AUTOMATED | | [facility] | | | | | COUNT | | | | | | + + + + + + + | MONOCYTES | 2021-09-25 | [facility] | 0.6 | k/mcl | (missing) | | (10*3/UL) IN | 23:37 | Health | | | | | BLOOD BY | | System - | | | | | AUTOMATED | | [facility] | | | | | COUNT | | | | | | + + + + + + + | | 2021-09-25 | [facility] | 0.7 | % | (missing) | | EOSINOPHILS/ | 23:37 | Health | | | | | 100 | | System - | | | | | LEUKOCYTES | | [facility] | | | | | IN BLOOD BY | | | | | | | AUTOMATED | | | | | | | COUNT | | | | | | + + + + + + + | | 2021-09-25 | [facility] | 0.7 | % | (missing) | | EOSINOPHILS/ | 23:37 | Health | | | | | 100 | | System - | | | | | LEUKOCYTES | | [facility] | | | | | IN BLOOD BY | | | | | | | AUTOMATED | | | | | | | COUNT | | | | | | + + + + + + + | CREATININE | 2021-09-25 | [facility] | 0.7 | mg/dl | (missing) | | (MG/DL) IN | 23:37 | Health | | | | | SER/PLAS | | System - | | | | | | | [facility] | | | | + + + + + + + | CREATININE | 2021-09-25 | [facility] | 0.7 | mg/dl | (missing) | | (MG/DL) IN | 23:37 | Health | | | | | SER/PLAS | | System - | | | | | | | [facility] | | | | + + + + + + + | | 2021-09-25 | [facility] | 10.4 | k/mcl | (missing) | | LEUKOCYTES(1 | 23:37 | Health | | | | | 0*3/UL) IN | | System - | | | | | BLOOD BY | | [facility] | | | | | AUTOMATED | | | | | | | COUNT | | | | | | + + + + + + + | | 2021-09-25 | [facility] | 10.4 | k/mcl | (missing) | | LEUKOCYTES(1 | | Health | | | | | 0*3/UL) IN | | System - | | | | | BLOOD BY | | [facility] | | | | | AUTOMATED | | | | | | | COUNT | | | | | | + + + + + + + | CHLORIDE | 2021-09-25 | [facility] | 105 | mmol/l | (missing) | | (MMOL/L) IN | :37 | Health | | | | | SER/PLAS | | System - | | | | | | | [facility] | | | | + + + + + + + | CHLORIDE | 2021-09-25 | [facility] | 105 | mmol/l | (missing) | | (MMOL/L) IN | :37 | Health | | | | | SER/PLAS | | System - | | | | | | | [facility] | | | | + + + + + + + | ANION GAP | 2021-09-25 | [facility] | 12.0 | mmol/l | (missing) | | IN SER/PLAS | 23:37 | Health | | | | | | | System - | | | | | | | [facility] | | | | + + + + + + + | ANION GAP | 2021-09-25 | [facility] | 12.0 | mmol/l | (missing) | | IN SER/PLAS | 23:37 | Health | | | | | | | System - | | | | | | | [facility] | | | | + + + + + + + | ERYTHROCYTE | 2021-09-25 | [facility] | 12.2 | % | (missing) | | | 23:37 | Health | | | | | DISTRIBUTION | | System - | | | | | WIDTH | | [facility] | | | | | (RATIO) BY | | | | | | | AUTOMATED | | | | | | | COUNT | | | | | | + + + + + + + | ERYTHROCYTE | 2021-09-25 | [facility] | 12.2 | % | (missing) | | | 23:37 | Health | | | | | DISTRIBUTION | | System - | | | | | WIDTH | | [facility] | | | | | (RATIO) BY | | | | | | | AUTOMATED | | | | | | | COUNT | | | | | | + + + + + + + | GLUCOSE, | 2021-09-25 | [facility] | 127 | mg/dl | (missing) | | RANDOM | 23:37 | Health | | | | | (MG/DL) IN | | System - | | | | | SER/PLAS | | [facility] | | | | + + + + + + + | GLUCOSE, | 2021-09-25 | [facility] | 127 | mg/dl | (missing) | | RANDOM | 23:37 | Health | | | | | (MG/DL) IN | | System - | | | | | SER/PLAS | | [facility] | | | | + + + + + + + | SODIUM | 2021-09-25 | [facility] | 136 | mmol/l | (missing) | | (MMOL/L) IN | 23:37 | Health | | | | | SER/PLAS | | System - | | | | | | | [facility] | | | | + + + + + + + | SODIUM | 2021-09-25 | [facility] | 136 | mmol/l | (missing) | | (MMOL/L) IN | 23:37 | Health | | | | | SER/PLAS | | System - | | | | | | | [facility] | | | | + + + + + + + | BLOOD UREA | 2021-09-25 | [facility] | 14 | mg/dl | (missing) | | NITROGEN | 23:37 | Health | | | | | (BUN) | | System - | | | | | (MG/DL) IN | | [facility] | | | | | SER/PLAS | | | | | | + + + + + + + | BLOOD UREA | 2021-09-25 | [facility] | 14 | mg/dl | (missing) | | NITROGEN | 23:37 | Health | | | | | (BUN) | | System - | | | | | (MG/DL) IN | | [facility] | | | | | SER/PLAS | | | | | | + + + + + + + | HEMOGLOBIN | 2021-09-25 | [facility] | 14.5 | g/dl | (missing) | | (G/DL) IN | 23:37 | Health | | | | | BLOOD | | System - | | | | | | | [facility] | | | | + + + + + + + | HEMOGLOBIN | 2021-09-25 | [facility] | 14.5 | g/dl | (missing) | | (G/DL) IN | 23:37 | Health | | | | | BLOOD | | System - | | | | | | | [facility] | | | | + + + + + + + | CARBON | 2021-09-25 | [facility] | 19 | mmol/l | (missing) | | DIOXIDE | 23:37 | Health | | | | | (CO2), TOTAL | | System - | | | | | (MMOL/L) IN | | [facility] | | | | | SER/PLAS | | | | | | + + + + + + + | CARBON | 2021-09-25 | [facility] | 19 | mmol/l | (missing) | | DIOXIDE | 23:37 | Health | | | | | (CO2), TOTAL | | System - | | | | | (MMOL/L) IN | | [facility] | | | | | SER/PLAS | | | | | | + + + + + + + | POTASSIUM | 2021-09-25 | [facility] | 3.4 | mmol/l | (missing) | | (MMOL/L) IN | 23:37 | Health | | | | | SER/PLAS | | System - | | | | | | | [facility] | | | | + + + + + + + | POTASSIUM | 2021-09-25 | [facility] | 3.4 | mmol/l | (missing) | | (MMOL/L) IN | 23:37 | Health | | | | | SER/PLAS | | System - | | | | | | | [facility] | | | | + + + + + + + | LYMPHOCYTES | 2021-09-25 | [facility] | 3.6 | k/mcl | (missing) | | (10*3/UL) | 23:37 | Health | | | | | IN BLOOD BY | | System - | | | | | AUTOMATED | | [facility] | | | | | COUNT | | | | | | + + + + + + + | LYMPHOCYTES | 2021-09-25 | [facility] | 3.6 | k/mcl | (missing) | | (10*3/UL) | 23:37 | Health | | | | | IN BLOOD BY | | System - | | | | | AUTOMATED | | [facility] | | | | | COUNT | | | | | | + + + + + + + | TSH | 2021-09-25 | [facility] | 3.97 | mciu/ml | (missing) | | (THYROTROPIN | 23:37 | Health | | | | | ) (UIU/ML) | | System - | | | | | IN SER/PLAS | | [facility] | | | | + + + + + + + | TSH | 2021-09-25 | [facility] | 3.97 | mciu/ml | (missing) | | (THYROTROPIN | 23:37 | Health | | | | | ) (UIU/ML) | | System - | | | | | IN SER/PLAS | | [facility] | | | | + + + + + + + | ALANINE | 2021-09-25 | [facility] | 30 | u/l | (missing) | | AMINOTRANSFE | 23:37 | Health | | | | | RASE (SGPT) | | System - | | | | | (U/L) IN | | [facility] | | | | | SER/PLAS | | | | | | + + + + + + + | ALANINE | 2021-09-25 | [facility] | 30 | u/l | (missing) | | AMINOTRANSFE | 23:37 | Health | | | | | RASE (SGPT) | | System - | | | | | (U/L) IN | | [facility] | | | | | SER/PLAS | | | | | | + + + + + + + | ERYTHROCYTE | 2021-09-25 | [facility] | 30.7 | pg | (missing) | | MEAN | 23:37 | Health | | | | | CORPUSCULAR | | System - | | | | | HEMOGLOBIN | | [facility] | | | | | (PG) BY | | | | | | | AUTOMATED | | | | | | | COUNT | | | | | | + + + + + + + | ERYTHROCYTE | 2021-09-25 | [facility] | 30.7 | pg | (missing) | | MEAN | 23:37 | Health | | | | | CORPUSCULAR | | System - | | | | | HEMOGLOBIN | | [facility] | | | | | (PG) BY | | | | | | | AUTOMATED | | | | | | | COUNT | | | | | | + + + + + + + | ERYTHROCYTE | 2021-09-25 | [facility] | 34.7 | g/dl | (missing) | | MEAN | 23:37 | Health | | | | | CORPUSCULAR | | System - | | | | | HEMOGLOBIN | | [facility] | | | | | CONCENTRATIO | | | | | | | N (G/DL) BY | | | | | | | AUTOMATED | | | | | | + + + + + + + | ERYTHROCYTE | 2021-09-25 | [facility] | 34.7 | g/dl | (missing) | | MEAN | 23:37 | Health | | | | | CORPUSCULAR | | System - | | | | | HEMOGLOBIN | | [facility] | | | | | CONCENTRATIO | | | | | | | N (G/DL) BY | | | | | | | AUTOMATED | | | | | | + + + + + + + | | 2021-09-25 | [facility] | 34.8 | % | (missing) | | LYMPHOCYTES/ | 23:37 | Health | | | | | 100 | | System - | | | | | LEUKOCYTES | | [facility] | | | | | IN BLOOD BY | | | | | | | AUTOMATED | | | | | | | COUNT | | | | | | + + + + + + + | | 2021-09-25 | [facility] | 34.8 | % | (missing) | | LYMPHOCYTES/ | 23:37 | Health | | | | | 100 | | System - | | | | | LEUKOCYTES | | [facility] | | | | | IN BLOOD BY | | | | | | | AUTOMATED | | | | | | | COUNT | | | | | | + + + + + + + | PLATELETS | 2021-09-25 | [facility] | 356 | k/mcl | (missing) | | (10*3/UL) IN | 23:37 | Health | | | | | BLOOD | | System - | | | | | AUTOMATED | | [facility] | | | | | COUNT | | | | | | + + + + + + + | PLATELETS | 2021-09-25 | [facility] | 356 | k/mcl | (missing) | | (10*3/UL) IN | 23:37 | Health | | | | | BLOOD | | System - | | | | | AUTOMATED | | [facility] | | | | | COUNT | | | | | | + + + + + + + | ASPARTATE | 2021-09-25 | [facility] | 39 | u/l | (missing) | | AMINOTRANSFE | 23:37 | Health | | | | | RASE (SGOT) | | System - | | | | | (U/L) IN | | [facility] | | | | | SER/PLAS | | | | | | + + + + + + + | ASPARTATE | 2021-09-25 | [facility] | 39 | u/l | (missing) | | AMINOTRANSFE | 23:37 | Health | | | | | RASE (SGOT) | | System - | | | | | (U/L) IN | | [facility] | | | | | SER/PLAS | | | | | | + + + + + + + | ALBUMIN | 2021-09-25 | [facility] | 4.2 | g/dl | (missing) | | (G/DL) IN | 23:37 | Health | | | | | SER/PLAS | | System - | | | | | | | [facility] | | | | + + + + + + + | ALBUMIN | 2021-09-25 | [facility] | 4.2 | g/dl | (missing) | | (G/DL) IN | 23:37 | Health | | | | | SER/PLAS | | System - | | | | | | | [facility] | | | | + + + + + + + | | 2021-09-25 | [facility] | 4.73 | m/mcl | (missing) | | ERYTHROCYTES | 23:37 | Health | | | | | (10*6/UL) | | System - | | | | | IN BLOOD BY | | [facility] | | | | | AUTOMATED | | | | | | | COUNT | | | | | | + + + + + + + | | 2021-09-25 | [facility] | 4.73 | m/mcl | (missing) | | ERYTHROCYTES | 23:37 | Health | | | | | (10*6/UL) | | System - | | | | | IN BLOOD BY | | [facility] | | | | | AUTOMATED | | | | | | | COUNT | | | | | | + + + + + + + | HEMATOCRIT | 2021-09-25 | [facility] | 41.8 | % | (missing) | | (%) IN BLOOD | 23:37 | Health | | | | | BY | | System - | | | | | AUTOMATED | | [facility] | | | | | COUNT | | | | | | + + + + + + + | HEMATOCRIT | 2021-09-25 | [facility] | 41.8 | % | (missing) | | (%) IN BLOOD | 23:37 | Health | | | | | BY | | System - | | | | | AUTOMATED | | [facility] | | | | | COUNT | | | | | | + + + + + + + | | 2021-09-25 | [facility] | 5.8 | % | (missing) | | MONOCYTES/10 | 23:37 | Health | | | | | 0 LEUKOCYTES | | System - | | | | | IN BLOOD BY | | [facility] | | | | | AUTOMATED | | | | | | | COUNT | | | | | | + + + + + + + | | 2021-09-25 | [facility] | 5.8 | % | (missing) | | MONOCYTES/10 | 23:37 | Health | | | | | 0 LEUKOCYTES | | System - | | | | | IN BLOOD BY | | [facility] | | | | | AUTOMATED | | | | | | | COUNT | | | | | | + + + + + + + | | 2021-09-25 | [facility] | 57.8 | % | (missing) | | NEUTROPHILS/ | 23:37 | Health | | | | | 100 | | System - | | | | | LEUKOCYTES | | [facility] | | | | | IN BLOOD BY | | | | | | | AUTOMATED | | | | | | | COUNT | | | | | | + + + + + + + | | 2021-09-25 | [facility] | 57.8 | % | (missing) | | NEUTROPHILS/ | 23:37 | Health | | | | | 100 | | System - | | | | | LEUKOCYTES | | [facility] | | | | | IN BLOOD BY | | | | | | | AUTOMATED | | | | | | | COUNT | | | | | | + + + + + + + | NEUTROPHILS | 2021-09-25 | [facility] | 6.0 | k/mcl | (missing) | | (10*3/UL) | 23:37 | Health | | | | | IN BLOOD BY | | System - | | | | | AUTOMATED | | [facility] | | | | | COUNT | | | | | | + + + + + + + | NEUTROPHILS | 2021-09-25 | [facility] | 6.0 | k/mcl | (missing) | | (10*3/UL) | 23:37 | Health | | | | | IN BLOOD BY | | System - | | | | | AUTOMATED | | [facility] | | | | | COUNT | | | | | | + + + + + + + | PROTEIN | 2021-09-25 | [facility] | 6.6 | g/dl | (missing) | | (G/DL) IN | 23:37 | Health | | | | | SER/PLAS | | System - | | | | | | | [facility] | | | | + + + + + + + | PROTEIN | 2021-09-25 | [facility] | 6.6 | g/dl | (missing) | | (G/DL) IN | 23:37 | Health | | | | | SER/PLAS | | System - | | | | | | | [facility] | | | | + + + + + + + | ALKALINE | 2021-09-25 | [facility] | 61 | u/l | (missing) | | PHOSPHATASE | 23:37 | Health | | | | | (U/L) IN | | System - | | | | | SER/PLAS | | [facility] | | | | + + + + + + + | ALKALINE | 2021-09-25 | [facility] | 61 | u/l | (missing) | | PHOSPHATASE | 23:37 | Health | | | | | (U/L) IN | | System - | | | | | SER/PLAS | | [facility] | | | | + + + + + + + | ERYTHROCYTE | 2021-09-25 | [facility] | 88.4 | fl | (missing) | | MEAN | 23:37 | Health | | | | | CORPUSCULAR | | System - | | | | | VOLUME (FL) | | [facility] | | | | | BY AUTOMATED | | | | | | | COUNT | | | | | | + + + + + + + | ERYTHROCYTE | 2021-09-25 | [facility] | 88.4 | fl | (missing) | | MEAN | 23:37 | Health | | | | | CORPUSCULAR | | System - | | | | | VOLUME (FL) | | [facility] | | | | | BY AUTOMATED | | | | | | | COUNT | | | | | | + + + + + + + | PLATELET | 2021-09-25 | [facility] | 9.2 | fl | (missing) | | MEAN VOLUME | 23:37 | Health | | | | | (FL) IN | | System - | | | | | BLOOD BY | | [facility] | | | | | AUTOMATED | | | | | | | COUNT | | | | | | + + + + + + + | PLATELET | 2021-09-25 | [facility] | 9.2 | fl | (missing) | | MEAN VOLUME | 23:37 | Health | | | | | (FL) IN | | System - | | | | | BLOOD BY | | [facility] | | | | | AUTOMATED | | | | | | | COUNT | | | | | | + + + + + + + | CALCIUM | 2021-09-25 | [facility] | 9.3 | mg/dl | (missing) | | (MG/DL) IN | 23:37 | Health | | | | | SER/PLAS | | System - | | | | | | | [facility] | | | | + + + + + + + | CALCIUM | 2021-09-25 | [facility] | 9.3 | mg/dl | (missing) | | (MG/DL) IN | 23:37 | Health | | | | | SER/PLAS | | System - | | | | | | | [facility] | | | | + + + + + + + | | 2021-09-25 | [facility] | Negative | (missing) | (missing) | | BARBITURATES | 23:37 | Health | | | | | PRESENCE IN | | System - | | | | | URINE BY | | [facility] | | | | | SCREEN | | | | | | | METHOD | | | | | | + + + + + + + | | 2021-09-25 | [facility] | Negative | (missing) | (missing) | | BENZODIAZEPI | 23:37 | Health | | | | | SURYA | | System - | | | | | (PRESENCE) | | [facility] | | | | | IN URINE BY | | | | | | | SCREEN | | | | | | | METHOD | | | | | | + + + + + + + | COCAINE | 2021-09-25 | [facility] | Negative | (missing) | (missing) | | (PRESENCE) | 23:37 | Health | | | | | IN URINE BY | | System - | | | | | SCREEN | | [facility] | | | | | METHOD | | | | | | + + + + + + + | METHADONE | 2021-09-25 | [facility] | Negative | (missing) | (missing) | | (PRESENCE) | 23:37 | Health | | | | | IN URINE BY | | System - | | | | | SCREEN | | [facility] | | | | | METHOD | | | | | | + + + + + + + | OPIATES | 2021-09-25 | [facility] | Negative | (missing) | (missing) | | (PRESENCE) | 23:37 | Health | | | | | IN URINE BY | | System - | | | | | SCREEN | | [facility] | | | | | METHOD | | | | | | + + + + + + + | OXYCODONE | 2021-09-25 | [facility] | Negative | (missing) | (missing) | | (PRESENCE) | 23:37 | Health | | | | | IN URINE BY | | System - | | | | | SCREEN | | [facility] | | | | | METHOD | | | | | | + + + + + + + | | 2021-09-25 | [facility] | Negative | (missing) | (missing) | | PHENCYCLIDIN | 23:37 | Health | | | | | E (PRESENCE) | | System - | | | | | IN URINE BY | | [facility] | | | | | SCREEN | | | | | | | METHOD | | | | | | + + + + + + + | THC | 2021-09-25 | [facility] | Negative | (missing) | (missing) | | (CANNABINOID | 23:37 | Health | | | | | ) IN URINE | | System - | | | | | BY SCREEN | | [facility] | | | | | METHOD | | | | | | + + + + + + + | TRICYCLIC | 2021-09-25 | [facility] | Negative | (missing) | (missing) | | ANTIDEPRESSA | 23:37 | Health | | | | | NTS | | System - | | | | | (PRESENCE) | | [facility] | | | | | IN URINE | | | | | | + + + + + + + | | 2021-09-25 | [facility] | Negative | (missing) | (missing) | | PHENCYCLIDIN | 23:37 | Health | | | | | E ([facility]) | | System - | | | | | IN URINE BY | | [facility] | | | | | SCREEN | | | | | | | METHOD | | | | | | + + + + + + + | THC | 2021-09-25 | [facility] | Negative | (missing) | (missing) | | (CANNABINOID | 23:37 | Health | | | | | ) IN URINE | | System - | | | | | BY SCREEN | | [facility] | | | | | METHOD | | | | | | + + + + + + + | OPIATES | 2021-09-25 | [facility] | Negative | (missing) | (missing) | | (PRESENCE) | 23:37 | Health | | | | | IN URINE BY | | System - | | | | | SCREEN | | [facility] | | | | | METHOD | | | | | | + + + + + + + | TRICYCLIC | 2021-09-25 | [facility] | Negative | (missing) | (missing) | | ANTIDEPRESSA | 23:37 | Health | | | | | NTS | | System - | | | | | (PRESENCE) | | [facility] | | | | | IN URINE | | | | | | + + + + + + + | OXYCODONE | 2021-09-25 | [facility] | Negative | (missing) | (missing) | | ([facility]) | 23:37 | Health | | | | | IN URINE BY | | System - | | | | | SCREEN | | [facility] | | | | | METHOD | | | | | | + + + + + + + | BHCG QUAL | 2021-09-25 | [facility] | Negative | (missing) | (missing) | | (CHORIOGONAD | 23:37 | Health | | | | | OTROPIN) IN | | System - | | | | | SER/PLAS | | [facility] | | | | + + + + + + + | COCAINE | 2021-09-25 | [facility] | Negative | (missing) | (missing) | | (PRESENCE) | 23:37 | Health | | | | | IN URINE BY | | System - | | | | | SCREEN | | [facility] | | | | | METHOD | | | | | | + + + + + + + | | 2021-09-25 | [facility] | Negative | (missing) | (missing) | | BARBITURATES | 23:37 | Health | | | | | PRESENCE IN | | System - | | | | | URINE BY | | [facility] | | | | | SCREEN | | | | | | | METHOD | | | | | | + + + + + + + | | 2021-09-25 | [facility] | Negative | (missing) | (missing) | | BENZODIAZEPI | 23:37 | Health | | | | | SURYA | | System - | | | | | (PRESENCE) | | [facility] | | | | | IN URINE BY | | | | | | | SCREEN | | | | | | | METHOD | | | | | | + + + + + + + | METHADONE | 2021-09-25 | [facility] | Negative | (missing) | (missing) | | (PRESENCE) | 23:37 | Health | | | | | IN URINE BY | | System - | | | | | SCREEN | | [facility] | | | | | METHOD | | | | | | + + + + + + + | BH[facility] QUAL | 2021-09-25 | [facility] | Negative | (missing) | (missing) | | (CHORIOGONAD | 23:37 | Health | | | | | OTROPIN) IN | | System - | | | | | SER/PLAS | | [facility] | | | | + + + + + + + | | 2021-09-25 | [facility] | Presumptive | (missing) | (missing) | | METHAMPHETAM | 23:37 | Health | Positive | | | | INE | | System - | | | | | (PRESENCE) | | [facility] | | | | | IN URINE BY | | | | | | | SCREEN | | | | | | | METHOD | | | | | | + + + + + + + | AMPHETAMINE | 2021-09-25 | [facility] | Presumptive | (missing) | (missing) | | (PRESENCE) | 23:37 | Health | Positive | | | | IN URINE BY | | System - | | | | | SCREEN | | [facility] | | | | | METHOD | | | | | | + + + + + + + | | 2021-09-25 | [facility] | Presumptive | (missing) | (missing) | | METHAMPHETAM | 23:37 | Health | Positive | | | | INE | | System - | | | | | (PRESENCE) | | [facility] | | | | | IN URINE BY | | | | | | | SCREEN | | | | | | | METHOD | | | | | | + + + + + + + | AMPHETAMINE | 2021-09-25 | [facility] | Presumptive | (missing) | (missing) | | (PRESENCE) | 23:37 | Health | Positive | | | | IN URINE BY | | System - | | | | | SCREEN | | [facility] | | | | | METHOD | | | | | | + + + + + + + + + | Result panel 33 | + + + + + + + + + | INFLUENZA A | 2021-09-25 | [facility] | Negative | (missing) | (missing) | | | 23:46 | Health | | | | | | | System - | | | | | | | [facility] | | | | + + + + + + + | INFLUENZA B | 2021-09-25 | [facility] | Negative | (missing) | (missing) | | | 23:46 | Health | | | | | | | System - | | | | | | | [facility] | | | | + + + + + + + | RSV | 2021-09-25 | [facility] | Negative | (missing) | (missing) | | | 23:46 | Health | | | | | | | System - | | | | | | | [facility] | | | | + + + + + + + | SARS-COV-2 | 2021-09-25 | [facility] | Negative | (missing) | (missing) | | (COVID19) | 23:46 | Health | | | | | CEPHEID PCR | | System - | | | | | | | [facility] | | | | + + + + + + + | INFLUENZA A | 2021-09-25 | [facility] | Negative | (missing) | (missing) | | | 23:46 | Health | | | | | | | System - | | | | | | | [facility] | | | | + + + + + + + | INFLUENZA B | 2021-09-25 | [facility] | Negative | (missing) | (missing) | | | 23:46 | Health | | | | | | | System - | | | | | | | [facility] | | | | + + + + + + + | RSV | 2021-09-25 | [facility] | Negative | (missing) | (missing) | | | 23:46 | Health | | | | | | | System - | | | | | | | [facility] | | | | + + + + + + + | SARS-COV-2 | 2021-09-25 | [facility] | Negative | (missing) | (missing) | | (COVID19) | 23:46 | Health | | | | | CEPHEID PCR | | System - | | | | | | | [facility] | | | | + + + + + + + + + | Result panel 34 | + + + + + + + + + | EGFR | 2021-09-28 | [facility] | > | | (missing) | | (GLOMERULAR | 23:31 | Health | | ml/min/1.73m | | | FILTRATION | | System - | | ? | | | RATE) | | [facility] | | | | | ML/MIN/1.73 | | | | | | | SQ M. | | | | | | + + + + + + + | EGFR | 2021-09-28 | [facility] | > | | (missing) | | (GLOMERULAR | 23:31 | Health | | ml/min/1.73m | | | FILTRATION | | System - | | ? | | | RATE) | | [facility] | | | | | ML/MIN/1.73 | | | | | | | SQ M. | | | | | | + + + + + + + | ALCOHOL | 2021-09-28 | [facility] | < | g/dl | (missing) | | (G/DL) IN | :31 | Health | | | | | SER/PLAS | | System - | | | | | | | [facility] | | | | + + + + + + + | ALCOHOL | 2021-09-28 | [facility] | < | g/dl | (missing) | | (G/DL) IN | :31 | Health | | | | | SER/PLAS | | System - | | | | | | | [facility] | | | | + + + + + + + | BILIRUBIN | 2021-09-28 | [facility] | < | mg/dl | (missing) | | TOTAL | 23:31 | Health | | | | | (MG/DL) IN | | System - | | | | | SER/PLAS | | [facility] | | | | + + + + + + + | BILIRUBIN | 2021-09-28 | [facility] | < | mg/dl | (missing) | | TOTAL | 23:31 | Health | | | | | (MG/DL) IN | | System - | | | | | SER/PLAS | | [facility] | | | | + + + + + + + | NRBC/100 | 2021-09-28 | [facility] | 0.0 | % | (missing) | | WBCS BY | 23:31 | Health | | | | | AUTOMATED | | System - | | | | | COUNT | | [facility] | | | | + + + + + + + | NRBC/100 | 2021-09-28 | [facility] | 0.0 | % | (missing) | | WBCS BY | 23:31 | Health | | | | | AUTOMATED | | System - | | | | | COUNT | | [facility] | | | | + + + + + + + | | 2021-09-28 | [facility] | 0.0 | k/mcl | (missing) | | NRBC(10*3/UL | 23:31 | Health | | | | | ) IN BLOOD | | System - | | | | | BY AUTOMATED | | [facility] | | | | | COUNT | | | | | | + + + + + + + | | 2021-09-28 | [facility] | 0.0 | k/mcl | (missing) | | NRBC(10*3/UL | 23:31 | Health | | | | | ) IN BLOOD | | System - | | | | | BY AUTOMATED | | [facility] | | | | | COUNT | | | | | | + + + + + + + | IMMATURE | 2021-09-28 | [facility] | 0.04 | k/mcl | (missing) | | GRANULOCYTE | 23:31 | Health | | | | | (ABS) | | System - | | | | | | | [facility] | | | | + + + + + + + | IMMATURE | 2021-09-28 | [facility] | 0.04 | k/mcl | (missing) | | GRANULOCYTE | 23:31 | Health | | | | | (ABS) | | System - | | | | | | | [facility] | | | | + + + + + + + | BASOPHILS | 2021-09-28 | [facility] | 0.1 | k/mcl | (missing) | | (10*3/UL) IN | 23:31 | Health | | | | | BLOOD BY | | System - | | | | | AUTOMATED | | [facility] | | | | | COUNT | | | | | | + + + + + + + | BASOPHILS | 2021-09-28 | [facility] | 0.1 | k/mcl | (missing) | | (10*3/UL) IN | :31 | Health | | | | | BLOOD BY | | System - | | | | | AUTOMATED | | [facility] | | | | | COUNT | | | | | | + + + + + + + | EOSINOPHILS | 2021-09-28 | [facility] | 0.2 | k/mcl | (missing) | | (10*3/UL) | 23:31 | Health | | | | | IN BLOOD BY | | System - | | | | | AUTOMATED | | [facility] | | | | | COUNT | | | | | | + + + + + + + | EOSINOPHILS | 2021-09-28 | [facility] | 0.2 | k/mcl | (missing) | | (10*3/UL) | 23:31 | Health | | | | | IN BLOOD BY | | System - | | | | | AUTOMATED | | [facility] | | | | | COUNT | | | | | | + + + + + + + | IMMATURE | 2021-09-28 | [facility] | 0.4 | % | (missing) | | GRANULOCYTE | 23:31 | Health | | | | | % (AUTO) | | System - | | | | | | | [facility] | | | | + + + + + + + | IMMATURE | 2021-09-28 | [facility] | 0.4 | % | (missing) | | GRANULOCYTE | 23:31 | Health | | | | | % (AUTO) | | System - | | | | | | | [facility] | | | | + + + + + + + | | 2021-09-28 | [facility] | 0.6 | % | (missing) | | BASOPHILS/10 | 23:31 | Health | | | | | 0 LEUKOCYTES | | System - | | | | | IN BLOOD BY | | [facility] | | | | | AUTOMATED | | | | | | | COUNT | | | | | | + + + + + + + | | 2021-09-28 | [facility] | 0.6 | % | (missing) | | BASOPHILS/10 | 23:31 | Health | | | | | 0 LEUKOCYTES | | System - | | | | | IN BLOOD BY | | [facility] | | | | | AUTOMATED | | | | | | | COUNT | | | | | | + + + + + + + | MONOCYTES | 2021-09-28 | [facility] | 0.6 | k/mcl | (missing) | | (10*3/UL) IN | 23:31 | Health | | | | | BLOOD BY | | System - | | | | | AUTOMATED | | [facility] | | | | | COUNT | | | | | | + + + + + + + | MONOCYTES | 2021-09-28 | [facility] | 0.6 | k/mcl | (missing) | | (10*3/UL) IN :31 | Health | | | | | BLOOD BY | | System - | | | | | AUTOMATED | | [facility] | | | | | COUNT | | | | | | + + + + + + + | CREATININE | 2021-09-28 | [facility] | 0.6 | mg/dl | (missing) | | (MG/DL) IN 31 | Health | | | | | SER/PLAS | | System - | | | | | | | [facility] | | | | + + + + + + + | CREATININE | 2021-09-28 | [facility] | 0.6 | mg/dl | (missing) | | (MG/DL) IN 31 | Health | | | | | SER/PLAS | | System - | | | | | | | [facility] | | | | + + + + + + + | BACTERIA | 2021-09-28 | [facility] | 1 | /hpf | (missing) | | (#/HPF) IN | 23:31 | Health | | | | | URINE | | System - | | | | | | | [facility] | | | | + + + + + + + | BACTERIA | 2021-09-28 | [facility] | 1 | /hpf | (missing) | | (#/HPF) IN | 23:31 | Health | | | | | URINE | | System - | | | | | | | [facility] | | | | + + + + + + + | SPECIFIC | 2021-09-28 | [facility] | 1.033 | (missing) | (missing) | | GRAVITY OF | 23:31 | Health | | | | | URINE BY | | System - | | | | | AUTOMATED | | [facility] | | | | | TEST STRIP | | | | | | + + + + + + + | SPECIFIC | 2021-09-28 | [facility] | 1.033 | (missing) | (missing) | | GRAVITY OF | 23:31 | Health | | | | | URINE BY | | System - | | | | | AUTOMATED | | [facility] | | | | | TEST STRIP | | | | | | + + + + + + + | ANION GAP | 2021-09-28 | [facility] | 10.0 | mmol/l | (missing) | | IN SER/PLAS | 23:31 | Health | | | | | | | System - | | | | | | | [facility] | | | | + + + + + + + | ANION GAP | 2021-09-28 | [facility] | 10.0 | mmol/l | (missing) | | IN SER/PLAS | 23:31 | Health | | | | | | | System - | | | | | | | [facility] | | | | + + + + + + + | | 2021-09-28 | [facility] | 10.1 | k/mcl | (missing) | | LEUKOCYTES(1 | 23:31 | Health | | | | | 0*3/UL) IN | | System - | | | | | BLOOD BY | | [facility] | | | | | AUTOMATED | | | | | | | COUNT | | | | | | + + + + + + + | | 2021-09-28 | [facility] | 10.1 | k/mcl | (missing) | | LEUKOCYTES(1 | | Health | | | | | 0*3/UL) IN | | System - | | | | | BLOOD BY | | [facility] | | | | | AUTOMATED | | | | | | | COUNT | | | | | | + + + + + + + | CHLORIDE | 2021-09-28 | [facility] | 109 | mmol/l | (missing) | | (MMOL/L) IN :31 | Health | | | | | SER/PLAS | | System - | | | | | | | [facility] | | | | + + + + + + + | CHLORIDE | 2021-09-28 | [facility] | 109 | mmol/l | (missing) | | (MMOL/L) IN 31 | Health | | | | | SER/PLAS | | System - | | | | | | | [facility] | | | | + + + + + + + | BLOOD UREA | 2021-09-28 | [facility] | 12 | mg/dl | (missing) | | NITROGEN | 23:31 | Health | | | | | (BUN) | | System - | | | | | (MG/DL) IN | | [facility] | | | | | SER/PLAS | | | | | | + + + + + + + | BLOOD UREA | 2021-09-28 | [facility] | 12 | mg/dl | (missing) | | NITROGEN | 23:31 | Health | | | | | (BUN) | | System - | | | | | (MG/DL) IN | | [facility] | | | | | SER/PLAS | | | | | | + + + + + + + | ERYTHROCYTE | 2021-09-28 | [facility] | 12.1 | % | (missing) | | | 23:31 | Health | | | | | DISTRIBUTION | | System - | | | | | WIDTH | | [facility] | | | | | (RATIO) BY | | | | | | | AUTOMATED | | | | | | | COUNT | | | | | | + + + + + + + | ERYTHROCYTE | 2021-09-28 | [facility] | 12.1 | % | (missing) | | | 23:31 | Health | | | | | DISTRIBUTION | | System - | | | | | WIDTH | | [facility] | | | | | (RATIO) BY | | | | | | | AUTOMATED | | | | | | | COUNT | | | | | | + + + + + + + | HEMOGLOBIN | 2021-09-28 | [facility] | 13.1 | g/dl | (missing) | | (G/DL) IN | 23:31 | Health | | | | | BLOOD | | System - | | | | | | | [facility] | | | | + + + + + + + | HEMOGLOBIN | 2021-09-28 | [facility] | 13.1 | g/dl | (missing) | | (G/DL) IN | 23:31 | Health | | | | | BLOOD | | System - | | | | | | | [facility] | | | | + + + + + + + | SODIUM | 2021-09-28 | [facility] | 139 | mmol/l | (missing) | | (MMOL/L) IN | 23:31 | Health | | | | | SER/PLAS | | System - | | | | | | | [facility] | | | | + + + + + + + | SODIUM | 2021-09-28 | [facility] | 139 | mmol/l | (missing) | | (MMOL/L) IN | 23:31 | Health | | | | | SER/PLAS | | System - | | | | | | | [facility] | | | | + + + + + + + | SQUAMOUS | 2021-09-28 | [facility] | 14 | /hpf | (missing) | | EPITHELIAL | 23:31 | Health | | | | | CELLS | | System - | | | | | (#/HPF) IN | | [facility] | | | | | URINE | | | | | | | SEDIMENT | | | | | | + + + + + + + | SQUAMOUS | 2021-09-28 | [facility] | 14 | /hpf | (missing) | | EPITHELIAL | 23:31 | Health | | | | | CELLS | | System - | | | | | (#/HPF) IN | | [facility] | | | | | URINE | | | | | | | SEDIMENT | | | | | | + + + + + + + | WBC | 2021-09-28 | [facility] | 15 | /hpf | (missing) | | (LEUKOCYTE) | 23:31 | Health | | | | | (#/HPF) IN | | System - | | | | | URINE | | [facility] | | | | | SEDIMENT | | | | | | + + + + + + + | WBC | 2021-09-28 | [facility] | 15 | /hpf | (missing) | | (LEUKOCYTE) | 23:31 | Health | | | | | (#/HPF) IN | | System - | | | | | URINE | | [facility] | | | | | SEDIMENT | | | | | | + + + + + + + | | 2021-09-28 | [facility] | 2.2 | % | (missing) | | EOSINOPHILS/ | 23:31 | Health | | | | | 100 | | System - | | | | | LEUKOCYTES | | [facility] | | | | | IN BLOOD BY | | | | | | | AUTOMATED | | | | | | | COUNT | | | | | | + + + + + + + | | 2021-09-28 | [facility] | 2.2 | % | (missing) | | EOSINOPHILS/ | 23:31 | Health | | | | | 100 | | System - | | | | | LEUKOCYTES | | [facility] | | | | | IN BLOOD BY | | | | | | | AUTOMATED | | | | | | | COUNT | | | | | | + + + + + + + | CARBON | 2021-09-28 | [facility] | 20 | mmol/l | (missing) | | DIOXIDE | 23:31 | Health | | | | | (CO2), TOTAL | | System - | | | | | (MMOL/L) IN | | [facility] | | | | | SER/PLAS | | | | | | + + + + + + + | CARBON | 2021-09-28 | [facility] | 20 | mmol/l | (missing) | | DIOXIDE | 23:31 | Health | | | | | (CO2), TOTAL | | System - | | | | | (MMOL/L) IN | | [facility] | | | | | SER/PLAS | | | | | | + + + + + + + | ASPARTATE | 2021-09-28 | [facility] | 21 | u/l | (missing) | | AMINOTRANSFE | 23:31 | Health | | | | | RASE (SGOT) | | System - | | | | | (U/L) IN | | [facility] | | | | | SER/PLAS | | | | | | + + + + + + + | ASPARTATE | 2021-09-28 | [facility] | 21 | u/l | (missing) | | AMINOTRANSFE | 23:31 | Health | | | | | RASE (SGOT) | | System - | | | | | (U/L) IN | | [facility] | | | | | SER/PLAS | | | | | | + + + + + + + | ALANINE | 2021-09-28 | [facility] | 25 | u/l | (missing) | | AMINOTRANSFE | 23:31 | Health | | | | | RASE (SGPT) | | System - | | | | | (U/L) IN | | [facility] | | | | | SER/PLAS | | | | | | + + + + + + + | ALANINE | 2021-09-28 | [facility] | 25 | u/l | (missing) | | AMINOTRANSFE | 23:31 | Health | | | | | RASE (SGPT) | | System - | | | | | (U/L) IN | | [facility] | | | | | SER/PLAS | | | | | | + + + + + + + | LEUKOCYTE | 2021-09-28 | [facility] | 3 | (missing) | (missing) | | ESTERASE | 23:31 | Health | | | | | PRESENCE IN | | System - | | | | | URINE BY | | [facility] | | | | | TEST STRIP | | | | | | + + + + + + + | LEUKOCYTE | 2021-09-28 | [facility] | 3 | (missing) | (missing) | | ESTERASE | 23:31 | Health | | | | | PRESENCE IN | | System - | | | | | URINE BY | | [facility] | | | | | TEST STRIP | | | | | | + + + + + + + | POTASSIUM | 2021-09-28 | [facility] | 3.3 | mmol/l | (missing) | | (MMOL/L) IN | 23:31 | Health | | | | | SER/PLAS | | System - | | | | | | | [facility] | | | | + + + + + + + | POTASSIUM | 2021-09-28 | [facility] | 3.3 | mmol/l | (missing) | | (MMOL/L) IN | 23:31 | Health | | | | | SER/PLAS | | System - | | | | | | | [facility] | | | | + + + + + + + | ALBUMIN | 2021-09-28 | [facility] | 3.8 | g/dl | (missing) | | (G/DL) IN | 23:31 | Health | | | | | SER/PLAS | | System - | | | | | | | [facility] | | | | + + + + + + + | ALBUMIN | 2021-09-28 | [facility] | 3.8 | g/dl | (missing) | | (G/DL) IN | 23:31 | Health | | | | | SER/PLAS | | System - | | | | | | | [facility] | | | | + + + + + + + | LYMPHOCYTES | 2021-09-28 | [facility] | 3.9 | k/mcl | (missing) | | (10*3/UL) | 23:31 | Health | | | | | IN BLOOD BY | | System - | | | | | AUTOMATED | | [facility] | | | | | COUNT | | | | | | + + + + + + + | LYMPHOCYTES | 2021-09-28 | [facility] | 3.9 | k/mcl | (missing) | | (10*3/UL) | 23:31 | Health | | | | | IN BLOOD BY | | System - | | | | | AUTOMATED | | [facility] | | | | | COUNT | | | | | | + + + + + + + | ERYTHROCYTE | 2021-09-28 | [facility] | 30.4 | pg | (missing) | | MEAN | 23:31 | Health | | | | | CORPUSCULAR | | System - | | | | | HEMOGLOBIN | | [facility] | | | | | (PG) BY | | | | | | | AUTOMATED | | | | | | | COUNT | | | | | | + + + + + + + | ERYTHROCYTE | 2021-09-28 | [facility] | 30.4 | pg | (missing) | | MEAN | 23:31 | Health | | | | | CORPUSCULAR | | System - | | | | | HEMOGLOBIN | | [facility] | | | | | (PG) BY | | | | | | | AUTOMATED | | | | | | | COUNT | | | | | | + + + + + + + | PLATELETS | 2021-09-28 | [facility] | 318 | k/mcl | (missing) | | (10*3/UL) IN | 23:31 | Health | | | | | BLOOD | | System - | | | | | AUTOMATED | | [facility] | | | | | COUNT | | | | | | + + + + + + + | PLATELETS | 2021-09-28 | [facility] | 318 | k/mcl | (missing) | | (10*3/UL) IN | 23:31 | Health | | | | | BLOOD | | System - | | | | | AUTOMATED | | [facility] | | | | | COUNT | | | | | | + + + + + + + | ERYTHROCYTE | 2021-09-28 | [facility] | 33.8 | g/dl | (missing) | | MEAN | 23:31 | Health | | | | | CORPUSCULAR | | System - | | | | | HEMOGLOBIN | | [facility] | | | | | CONCENTRATIO | | | | | | | N (G/DL) BY | | | | | | | AUTOMATED | | | | | | + + + + + + + | ERYTHROCYTE | 2021-09-28 | [facility] | 33.8 | g/dl | (missing) | | MEAN | 23:31 | Health | | | | | CORPUSCULAR | | System - | | | | | HEMOGLOBIN | | [facility] | | | | | CONCENTRATIO | | | | | | | N (G/DL) BY | | | | | | | AUTOMATED | | | | | | + + + + + + + | | 2021-09-28 | [facility] | 38.4 | % | (missing) | | LYMPHOCYTES/ | 23:31 | Health | | | | | 100 | | System - | | | | | LEUKOCYTES | | [facility] | | | | | IN BLOOD BY | | | | | | | AUTOMATED | | | | | | | COUNT | | | | | | + + + + + + + | | 2021-09-28 | [facility] | 38.4 | % | (missing) | | LYMPHOCYTES/ | 23:31 | Health | | | | | 100 | | System - | | | | | LEUKOCYTES | | [facility] | | | | | IN BLOOD BY | | | | | | | AUTOMATED | | | | | | | COUNT | | | | | | + + + + + + + | HEMATOCRIT | 2021-09-28 | [facility] | 38.8 | % | (missing) | | (%) IN BLOOD | 23:31 | Health | | | | | BY | | System - | | | | | AUTOMATED | | [facility] | | | | | COUNT | | | | | | + + + + + + + | HEMATOCRIT | 2021-09-28 | [facility] | 38.8 | % | (missing) | | (%) IN BLOOD | 23:31 | Health | | | | | BY | | System - | | | | | AUTOMATED | | [facility] | | | | | COUNT | | | | | | + + + + + + + | | 2021-09-28 | [facility] | 4.31 | m/mcl | (missing) | | ERYTHROCYTES | 23:31 | Health | | | | | (10*6/UL) | | System - | | | | | IN BLOOD BY | | [facility] | | | | | AUTOMATED | | | | | | | COUNT | | | | | | + + + + + + + | | 2021-09-28 | [facility] | 4.31 | m/mcl | (missing) | | ERYTHROCYTES | 23:31 | Health | | | | | (10*6/UL) | | System - | | | | | IN BLOOD BY | | [facility] | | | | | AUTOMATED | | | | | | | COUNT | | | | | | + + + + + + + | RBC (#/HPF) | 2021-09-28 | [facility] | 5 | /hpf | (missing) | | IN URINE | 23:31 | Health | | | | | SEDIMENT | | System - | | | | | | | [facility] | | | | + + + + + + + | RBC (#/HPF) | 2021-09-28 | [facility] | 5 | /hpf | (missing) | | IN URINE | 23:31 | Health | | | | | SEDIMENT | | System - | | | | | | | [facility] | | | | + + + + + + + | NEUTROPHILS | 2021-09-28 | [facility] | 5.3 | k/mcl | (missing) | | (10*3/UL) | 23:31 | Health | | | | | IN BLOOD BY | | System - | | | | | AUTOMATED | | [facility] | | | | | COUNT | | | | | | + + + + + + + | NEUTROPHILS | 2021-09-28 | [facility] | 5.3 | k/mcl | (missing) | | (10*3/UL) | 23:31 | Health | | | | | IN BLOOD BY | | System - | | | | | AUTOMATED | | [facility] | | | | | COUNT | | | | | | + + + + + + + | PH OF URINE | 2021-09-28 | [facility] | 5.5 | (missing) | (missing) | | | 23:31 | Health | | | | | | | System - | | | | | | | [facility] | | | | + + + + + + + | PH OF URINE | 2021-09-28 | [facility] | 5.5 | (missing) | (missing) | | | 23:31 | Health | | | | | | | System - | | | | | | | [facility] | | | | + + + + + + + | | 2021-09-28 | [facility] | 5.6 | % | (missing) | | MONOCYTES/10 | 23:31 | Health | | | | | 0 LEUKOCYTES | | System - | | | | | IN BLOOD BY | | [facility] | | | | | AUTOMATED | | | | | | | COUNT | | | | | | + + + + + + + | | 2021-09-28 | [facility] | 5.6 | % | (missing) | | MONOCYTES/10 | 23:31 | Health | | | | | 0 LEUKOCYTES | | System - | | | | | IN BLOOD BY | | [facility] | | | | | AUTOMATED | | | | | | | COUNT | | | | | | + + + + + + + | ALKALINE | 2021-09-28 | [facility] | 51 | u/l | (missing) | | PHOSPHATASE | 23:31 | Health | | | | | (U/L) IN | | System - | | | | | SER/PLAS | | [facility] | | | | + + + + + + + | ALKALINE | 2021-09-28 | [facility] | 51 | u/l | (missing) | | PHOSPHATASE | 23:31 | Health | | | | | (U/L) IN | | System - | | | | | SER/PLAS | | [facility] | | | | + + + + + + + | | 2021-09-28 | [facility] | 52.8 | % | (missing) | | NEUTROPHILS/ | 23:31 | Health | | | | | 100 | | System - | | | | | LEUKOCYTES | | [facility] | | | | | IN BLOOD BY | | | | | | | AUTOMATED | | | | | | | COUNT | | | | | | + + + + + + + | | 2021-09-28 | [facility] | 52.8 | % | (missing) | | NEUTROPHILS/ | 23:31 | Health | | | | | 100 | | System - | | | | | LEUKOCYTES | | [facility] | | | | | IN BLOOD BY | | | | | | | AUTOMATED | | | | | | | COUNT | | | | | | + + + + + + + | PROTEIN | 2021-09-28 | [facility] | 6.0 | g/dl | (missing) | | (G/DL) IN | :31 | Health | | | | | SER/PLAS | | System - | | | | | | | [facility] | | | | + + + + + + + | PROTEIN | 2021-09-28 | [facility] | 6.0 | g/dl | (missing) | | (G/DL) IN | 23:31 | Health | | | | | SER/PLAS | | System - | | | | | | | [facility] | | | | + + + + + + + | CALCIUM | 2021-09-28 | [facility] | 8.3 | mg/dl | (missing) | | (MG/DL) IN | 23:31 | Health | | | | | SER/PLAS | | System - | | | | | | | [facility] | | | | + + + + + + + | CALCIUM | 2021-09-28 | [facility] | 8.3 | mg/dl | (missing) | | (MG/DL) IN | 23:31 | Health | | | | | SER/PLAS | | System - | | | | | | | [facility] | | | | + + + + + + + | PLATELET | 2021-09-28 | [facility] | 9.4 | fl | (missing) | | MEAN VOLUME | 23:31 | Health | | | | | (FL) IN | | System - | | | | | BLOOD BY | | [facility] | | | | | AUTOMATED | | | | | | | COUNT | | | | | | + + + + + + + | PLATELET | 2021-09-28 | [facility] | 9.4 | fl | (missing) | | MEAN VOLUME | 23:31 | Health | | | | | (FL) IN | | System - | | | | | BLOOD BY | | [facility] | | | | | AUTOMATED | | | | | | | COUNT | | | | | | + + + + + + + | ERYTHROCYTE | 2021-09-28 | [facility] | 90.0 | fl | (missing) | | MEAN | 23:31 | Health | | | | | CORPUSCULAR | | System - | | | | | VOLUME (FL) | | [facility] | | | | | BY AUTOMATED | | | | | | | COUNT | | | | | | + + + + + + + | ERYTHROCYTE | 2021-09-28 | [facility] | 90.0 | fl | (missing) | | MEAN | 23:31 | Health | | | | | CORPUSCULAR | | System - | | | | | VOLUME (FL) | | [facility] | | | | | BY AUTOMATED | | | | | | | COUNT | | | | | | + + + + + + + | GLUCOSE, | 2021-09-28 | [facility] | 99 | mg/dl | (missing) | | RANDOM | 23:31 | Health | | | | | (MG/DL) IN | | System - | | | | | SER/PLAS | | [facility] | | | | + + + + + + + | GLUCOSE, | 2021-09-28 | [facility] | 99 | mg/dl | (missing) | | RANDOM | 23:31 | Health | | | | | (MG/DL) IN | | System - | | | | | SER/PLAS | | [facility] | | | | + + + + + + + | CLARITY OF | 2021-09-28 | [facility] | Hazy | (missing) | (missing) | | URINE | 23:31 | Health | | | | | | | System - | | | | | | | [facility] | | | | + + + + + + + | CLARITY OF | 2021-09-28 | [facility] | Darryl | (missing) | (missing) | | URINE | 23:31 | Health | | | | | | | System - | | | | | | | [facility] | | | | + + + + + + + | | 2021-09-28 | [facility] | Negative | (missing) | (missing) | | BARBITURATES | 23:31 | Health | | | | | PRESENCE IN | | System - | | | | | URINE BY | | [facility] | | | | | SCREEN | | | | | | | METHOD | | | | | | + + + + + + + | | 2021-09-28 | [facility] | Negative | (missing) | (missing) | | BENZODIAZEPI | 23:31 | Health | | | | | SURYA | | System - | | | | | (PRESENCE) | | [facility] | | | | | IN URINE BY | | | | | | | SCREEN | | | | | | | METHOD | | | | | | + + + + + + + | BILIRUBIN, | 2021-09-28 | [facility] | Negative | (missing) | (missing) | | TOTAL | 23:31 | Health | | | | | PRESENCE IN | | System - | | | | | URINE | | [facility] | | | | + + + + + + + | COCAINE | 2021-09-28 | [facility] | Negative | (missing) | (missing) | | (PRESENCE) | 23:31 | Health | | | | | IN URINE BY | | System - | | | | | SCREEN | | [facility] | | | | | METHOD | | | | | | + + + + + + + | GLUCOSE IN | 2021-09-28 | [facility] | Negative | (missing) | (missing) | | URINE | 23:31 | Health | | | | | | | System - | | | | | | | [facility] | | | | + + + + + + + | KETONES IN | 2021-09-28 | [facility] | Negative | (missing) | (missing) | | URINE | 23:31 | Health | | | | | | | System - | | | | | | | [facility] | | | | + + + + + + + | METHADONE | 2021-09-28 | [facility] | Negative | (missing) | (missing) | | ([facility]) | 23:31 | Health | | | | | IN URINE BY | | System - | | | | | SCREEN | | [facility] | | | | | METHOD | | | | | | + + + + + + + | NITRITE | 2021-09-28 | [facility] | Negative | (missing) | (missing) | | PRESENCE IN | 23:31 | Health | | | | | URINE | | System - | | | | | | | [facility] | | | | + + + + + + + | OPIATES | 2021-09-28 | [facility] | Negative | (missing) | (missing) | | ([facility]) | 23:31 | Health | | | | | IN URINE BY | | System - | | | | | SCREEN | | [facility] | | | | | METHOD | | | | | | + + + + + + + | OXYCODONE | 2021-09-28 | [facility] | Negative | (missing) | (missing) | | ([facility]) | 23:31 | Health | | | | | IN URINE BY | | System - | | | | | SCREEN | | [facility] | | | | | METHOD | | | | | | + + + + + + + | | 2021-09-28 | [facility] | Negative | (missing) | (missing) | | PHENCYCLIDIN | 23:31 | Health | | | | | E ([facility]) | | System - | | | | | IN URINE BY | | [facility] | | | | | SCREEN | | | | | | | METHOD | | | | | | + + + + + + + | TRICYCLIC | 2021-09-28 | [facility] | Negative | (missing) | (missing) | | ANTIDEPRESSA | 23:31 | Health | | | | | NTS | | System - | | | | | ([facility]) | | [facility] | | | | | IN URINE | | | | | | + + + + + + + | | 2021-09-28 | [facility] | Negative | (missing) | (missing) | | PHENCYCLIDIN | 23:31 | Health | | | | | E ([facility]) | | System - | | | | | IN URINE BY | | [facility] | | | | | SCREEN | | | | | | | METHOD | | | | | | + + + + + + + | OPIATES | 2021-09-28 | [facility] | Negative | (missing) | (missing) | | ([facility]) | 23:31 | Health | | | | | IN URINE BY | | System - | | | | | SCREEN | | [facility] | | | | | METHOD | | | | | | + + + + + + + | TRICYCLIC | 2021-09-28 | [facility] | Negative | (missing) | (missing) | | ANTIDEPRESSA | 23:31 | Health | | | | | NTS | | System - | | | | | ([facility]) | | [facility] | | | | | IN URINE | | | | | | + + + + + + + | OXYCODONE | 2021-09-28 | [facility] | Negative | (missing) | (missing) | | ([facility]) | 23:31 | Health | | | | | IN URINE BY | | System - | | | | | SCREEN | | [facility] | | | | | METHOD | | | | | | + + + + + + + | BILIRUBIN, | 2021-09-28 | [facility] | Negative | (missing) | (missing) | | TOTAL | 23:31 | Health | | | | | PRESENCE IN | | System - | | | | | URINE | | [facility] | | | | + + + + + + + | [facility] QUAL | 2021-09-28 | [facility] | Negative | (missing) | (missing) | | (CHORIOGONAD | 23:31 | Health | | | | | OTROPIN) IN | | System - | | | | | SER/PLAS | | [facility] | | | | + + + + + + + | GLUCOSE IN | 2021-09-28 | [facility] | Negative | (missing) | (missing) | | URINE | 23:31 | Health | | | | | | | System - | | | | | | | [facility] | | | | + + + + + + + | COCAINE | 2021-09-28 | [facility] | Negative | (missing) | (missing) | | ([facility]) | 23:31 | Health | | | | | IN URINE BY | | System - | | | | | SCREEN | | [facility] | | | | | METHOD | | | | | | + + + + + + + | NITRITE | 2021-09-28 | [facility] | Negative | (missing) | (missing) | | PRESENCE IN | 23:31 | Health | | | | | URINE | | System - | | | | | | | [facility] | | | | + + + + + + + | KETONES IN | 2021-09-28 | [facility] | Negative | (missing) | (missing) | | URINE | 23:31 | Health | | | | | | | System - | | | | | | | [facility] | | | | + + + + + + + | | 2021-09-28 | [facility] | Negative | (missing) | (missing) | | BARBITURATES | 23:31 | Health | | | | | PRESENCE IN | | System - | | | | | URINE BY | | [facility] | | | | | SCREEN | | | | | | | METHOD | | | | | | + + + + + + + | | 2021-09-28 | [facility] | Negative | (missing) | (missing) | | BENZODIAZEPI | 23:31 | Health | | | | | SURYA | | System - | | | | | (PRESENCE) | | [facility] | | | | | IN URINE BY | | | | | | | SCREEN | | | | | | | METHOD | | | | | | + + + + + + + | METHADONE | 2021-09-28 | [facility] | Negative | (missing) | (missing) | | (PRESENCE) | 23:31 | Health | | | | | IN URINE BY | | System - | | | | | SCREEN | | [facility] | | | | | METHOD | | | | | | + + + + + + + | BHCG QUAL | 2021-09-28 | [facility] | Negative | (missing) | (missing) | | ([facility]ORIOGONAD | 23:31 | Health | | | | | OTROPIN) IN | | System - | | | | | SER/PLAS | | [facility] | | | | + + + + + + + | | 2021-09-28 | [facility] | Normal | mg/dl | (missing) | | UROBILINOGEN | 23:31 | Health | | | | | (MG/DL) IN | | System - | | | | | URINE BY | | [facility] | | | | | TEST STRIP | | | | | | + + + + + + + | | 2021-09-28 | [facility] | Normal | mg/dl | (missing) | | UROBILINOGEN | 23:31 | Health | | | | | (MG/DL) IN | | System - | | | | | URINE BY | | [facility] | | | | | TEST STRIP | | | | | | + + + + + + + | | 2021-09-28 | [facility] | Presumptive | (missing) | (missing) | | METHAMPHETAM | 23:31 | Health | Positive | | | | INE | | System - | | | | | (PRESENCE) | | [facility] | | | | | IN URINE BY | | | | | | | SCREEN | | | | | | | METHOD | | | | | | + + + + + + + | THC | 2021-09-28 | [facility] | Presumptive | (missing) | (missing) | | (CANNABINOID | 23:31 | Health | Positive | | | | ) IN URINE | | System - | | | | | BY SCREEN | | [facility] | | | | | METHOD | | | | | | + + + + + + + | THC | 2021-09-28 | [facility] | Presumptive | (missing) | (missing) | | (CANNABINOID | 23:31 | Health | Positive | | | | ) IN URINE | | System - | | | | | BY SCREEN | | [facility] | | | | | METHOD | | | | | | + + + + + + + | AMPHETAMINE | 2021-09-28 | [facility] | Presumptive | (missing) | (missing) | | (PRESENCE) | 23:31 | Health | Positive | | | | IN URINE BY | | System - | | | | | SCREEN | | [facility] | | | | | METHOD | | | | | | + + + + + + + | | 2021-09-28 | [facility] | Presumptive | (missing) | (missing) | | METHAMPHETAM | 23:31 | Health | Positive | | | | INE | | System - | | | | | (PRESENCE) | | [facility] | | | | | IN URINE BY | | | | | | | SCREEN | | | | | | | METHOD | | | | | | + + + + + + + | AMPHETAMINE | 2021-09-28 | [facility] | Presumptive | (missing) | (missing) | | (PRESENCE) | 23:31 | Health | Positive | | | | IN URINE BY | | System - | | | | | SCREEN | | [facility] | | | | | METHOD | | | | | | + + + + + + + | HEMOGLOBIN | 2021-09-28 | [facility] | Trace | (missing) | (missing) | | PRESENCE IN | 23:31 | Health | | | | | URINE | | System - | | | | | | | [facility] | | | | + + + + + + + | MUCUS | 2021-09-28 | [facility] | Trace | (missing) | (missing) | | (#/HPF) IN | 23:31 | Health | | | | | URINE | | System - | | | | | SEDIMENT | | [facility] | | | | + + + + + + + | PROTEIN IN | 2021-09-28 | [facility] | Trace | (missing) | (missing) | | URINE BY | 23:31 | Health | | | | | TEST STRIP | | System - | | | | | | | [facility] | | | | + + + + + + + | MUCUS | 2021-09-28 | [facility] | Trace | (missing) | (missing) | | (#/HPF) IN | 23:31 | Health | | | | | URINE | | System - | | | | | SEDIMENT | | [facility] | | | | + + + + + + + | PROTEIN IN | 2021-09-28 | [facility] | Trace | (missing) | (missing) | | URINE BY | 23:31 | Health | | | | | TEST STRIP | | System - | | | | | | | [facility] | | | | + + + + + + + | HEMOGLOBIN | 2021-09-28 | [facility] | Trace | (missing) | (missing) | | PRESENCE IN | 23:31 | Health | | | | | URINE | | System - | | | | | | | [facility] | | | | + + + + + + + | COLOR OF | 2021-09-28 | [facility] | Yellow | (missing) | (missing) | | URINE | 23:31 | Health | | | | | | | System - | | | | | | | [facility] | | | | + + + + + + + | COLOR OF | 2021-09-28 | [facility] | Yellow | (missing) | (missing) | | URINE | 23:31 | Health | | | | | | | System - | | | | | | | [facility] | | | | + + + + + + + + + | Result panel 35 | + + + + + + + + + | INFLUENZA A | 2021-09-28 | [facility] | Negative | (missing) | (missing) | | | 23:33 | Health | | | | | | | System - | | | | | | | [facility] | | | | + + + + + + + | INFLUENZA B | 2021-09-28 | [facility] | Negative | (missing) | (missing) | | | 23:33 | Health | | | | | | | System - | | | | | | | [facility] | | | | + + + + + + + | RSV | 2021-09-28 | [facility] | Negative | (missing) | (missing) | | | 23:33 | Health | | | | | | | System - | | | | | | | [facility] | | | | + + + + + + + | SARS-COV-2 | 2021-09-28 | [facility] | Negative | (missing) | (missing) | | (COVID19) | 23:33 | Health | | | | | CEPHEID PCR | | System - | | | | | | | [facility] | | | | + + + + + + + | INFLUENZA A | 2021-09-28 | [facility] | Negative | (missing) | (missing) | | | 23:33 | Health | | | | | | | System - | | | | | | | [facility] | | | | + + + + + + + | INFLUENZA B | 2021-09-28 | [facility] | Negative | (missing) | (missing) | | | 23:33 | Health | | | | | | | System - | | | | | | | [facility] | | | | + + + + + + + | RSV | 2021-09-28 | [facility] | Negative | (missing) | (missing) | | | 23:33 | Health | | | | | | | System - | | | | | | | [facility] | | | | + + + + + + + | SARS-COV-2 | 2021-09-28 | [facility] | Negative | (missing) | (missing) | | (COVID19) | 23:33 | Health | | | | | CEPHEID PCR | | System - | | | | | | | [facility] | | | | + + + + + + + + + | Result panel 36 | + + + + + + + + + | BACTERIA | 2021-09-29 | [facility] | 1 | /hpf | (missing) | | (#/HPF) IN | 01:10 | Health | | | | | URINE | | System - | | | | | | | [facility] | | | | + + + + + + + | SPECIFIC | 2021-09-29 | [facility] | 1.033 | (missing) | (missing) | | GRAVITY OF | 01:10 | Health | | | | | URINE BY | | System - | | | | | AUTOMATED | | [facility] | | | | | TEST STRIP | | | | | | + + + + + + + | SQUAMOUS | 2021-09-29 | [facility] | 14 | /hpf | (missing) | | EPITHELIAL | 01:10 | Health | | | | | CELLS | | System - | | | | | (#/HPF) IN | | [facility] | | | | | URINE | | | | | | | SEDIMENT | | | | | | + + + + + + + | WBC | 2021-09-29 | [facility] | 15 | /hpf | (missing) | | (LEUKOCYTE) | 01:10 | Health | | | | | (#/HPF) IN | | System - | | | | | URINE | | [facility] | | | | | SEDIMENT | | | | | | + + + + + + + | LEUKOCYTE | 2021-09-29 | [facility] | 3 | (missing) | (missing) | | ESTERASE | 01:10 | Health | | | | | PRESENCE IN | | System - | | | | | URINE BY | | [facility] | | | | | TEST STRIP | | | | | | + + + + + + + | RBC (#/HPF) | 2021-09-29 | [facility] | 5 | /hpf | (missing) | | IN URINE | 01:10 | Health | | | | | SEDIMENT | | System - | | | | | | | [facility] | | | | + + + + + + + | PH OF URINE | 2021-09-29 | [facility] | 5.5 | (missing) | (missing) | | | 01:10 | Health | | | | | | | System - | | | | | | | [facility] | | | | + + + + + + + | CLARITY OF | 2021-09-29 | [facility] | Hazy | (missing) | (missing) | | URINE | 01:10 | Health | | | | | | | System - | | | | | | | [facility] | | | | + + + + + + + | BILIRUBIN, | 2021-09-29 | [facility] | Negative | (missing) | (missing) | | TOTAL | 01:10 | Health | | | | | PRESENCE IN | | System - | | | | | URINE | | [facility] | | | | + + + + + + + | GLUCOSE IN | 2021-09-29 | [facility] | Negative | (missing) | (missing) | | URINE | 01:10 | Health | | | | | | | System - | | | | | | | [facility] | | | | + + + + + + + | NITRITE | 2021-09-29 | [facility] | Negative | (missing) | (missing) | | PRESENCE IN | 01:10 | Health | | | | | URINE | | System - | | | | | | | [facility] | | | | + + + + + + + | KETONES IN | 2021-09-29 | [facility] | Negative | (missing) | (missing) | | URINE | 01:10 | Health | | | | | | | System - | | | | | | | [facility] | | | | + + + + + + + | URINE | 2021-09-29 | [facility] | Normal | (missing) | (missing) | | CULTURE | 01:10 | Health | urogenital | | | | | | System - | microbiota | | | | | | [facility] | | | | + + + + + + + | URINE | 2021-09-29 | [facility] | Normal | (missing) | (missing) | | CULTURE | 01:10 | Health | urogenital | | | | | | System - | microbiota | | | | | | [facility] | | | | + + + + + + + | | 2021-09-29 | [facility] | Normal | mg/dl | (missing) | | UROBILINOGEN | 01:10 | Health | | | | | (MG/DL) IN | | System - | | | | | URINE BY | | [facility] | | | | | TEST STRIP | | | | | | + + + + + + + | MUCUS | 2021-09-29 | [facility] | Trace | (missing) | (missing) | | (#/HPF) IN | 01:10 | Health | | | | | URINE | | System - | | | | | SEDIMENT | | [facility] | | | | + + + + + + + | PROTEIN IN | 2021-09-29 | [facility] | Trace | (missing) | (missing) | | URINE BY | 01:10 | Health | | | | | TEST STRIP | | System - | | | | | | | [facility] | | | | + + + + + + + | HEMOGLOBIN | 2021-09-29 | [facility] | Trace | (missing) | (missing) | | PRESENCE IN | 01:10 | Health | | | | | URINE | | System - | | | | | | | [facility] | | | | + + + + + + + | COLOR OF | 2021-09-29 | [facility] | Yellow | (missing) | (missing) | | URINE | 01:10 | Health | | | | | | | System - | | | | | | | [facility] | | | | + + + + + + + + + | Result panel 37 | + + + + + + + + + | | 2021-09-29 | [facility] | (missing) | (missing) | (missing) | | (unavailable | 14:39 | Health | | | | | ) | | System - | | | | | | | [facility] | | | | + + + + + + + | EGFR | 2021-09-29 | [facility] | > | | (missing) | | (GLOMERULAR | 14:39 | Health | | ml/min/1.73m | | | FILTRATION | | System - | | ? | | | RATE) | | [facility] | | | | | ML/MIN/1.73 | | | | | | | SQ M. | | | | | | + + + + + + + | EGFR | 2021-09-29 | [facility] | > | | (missing) | | (GLOMERULAR | 14:39 | Health | | ml/min/1.73m | | | FILTRATION | | System - | | ? | | | RATE) | | [facility] | | | | | ML/MIN/1.73 | | | | | | | SQ M. | | | | | | + + + + + + + | NRBC/100 | 2021-09-29 | [facility] | 0.0 | % | (missing) | | WBCS BY | 14:39 | Health | | | | | AUTOMATED | | System - | | | | | COUNT | | [facility] | | | | + + + + + + + | NRBC/100 | 2021-09-29 | [facility] | 0.0 | % | (missing) | | WBCS BY | 14:39 | Health | | | | | AUTOMATED | | System - | | | | | COUNT | | [facility] | | | | + + + + + + + | | 2021-09-29 | [facility] | 0.0 | k/mcl | (missing) | | NRBC(10*3/UL | 14:39 | Health | | | | | ) IN BLOOD | | System - | | | | | BY AUTOMATED | | [facility] | | | | | COUNT | | | | | | + + + + + + + | | 2021-09-29 | [facility] | 0.0 | k/mcl | (missing) | | NRBC(10*3/UL | 14:39 | Health | | | | | ) IN BLOOD | | System - | | | | | BY AUTOMATED | | [facility] | | | | | COUNT | | | | | | + + + + + + + | IMMATURE | 2021-09-29 | [facility] | 0.08 | k/mcl | (missing) | | GRANULOCYTE | 14:39 | Health | | | | | (ABS) | | System - | | | | | | | [facility] | | | | + + + + + + + | IMMATURE | 2021-09-29 | [facility] | 0.08 | k/mcl | (missing) | | GRANULOCYTE | 14:39 | Health | | | | | (ABS) | | System - | | | | | | | [facility] | | | | + + + + + + + | BASOPHILS | 2021-09-29 | [facility] | 0.1 | k/mcl | (missing) | | (10*3/UL) IN | 14:39 | Health | | | | | BLOOD BY | | System - | | | | | AUTOMATED | | [facility] | | | | | COUNT | | | | | | + + + + + + + | EOSINOPHILS | 2021-09-29 | [facility] | 0.1 | k/mcl | (missing) | | (10*3/UL) | 14:39 | Health | | | | | IN BLOOD BY | | System - | | | | | AUTOMATED | | [facility] | | | | | COUNT | | | | | | + + + + + + + | BASOPHILS | 2021-09-29 | [facility] | 0.1 | k/mcl | (missing) | | (10*3/UL) IN | 14:39 | Health | | | | | BLOOD BY | | System - | | | | | AUTOMATED | | [facility] | | | | | COUNT | | | | | | + + + + + + + | EOSINOPHILS | 2021-09-29 | [facility] | 0.1 | k/mcl | (missing) | | (10*3/UL) | 14:39 | Health | | | | | IN BLOOD BY | | System - | | | | | AUTOMATED | | [facility] | | | | | COUNT | | | | | | + + + + + + + | IMMATURE | 2021-09-29 | [facility] | 0.5 | % | (missing) | | GRANULOCYTE | 14:39 | Health | | | | | % (AUTO) | | System - | | | | | | | [facility] | | | | + + + + + + + | | 2021-09-29 | [facility] | 0.5 | % | (missing) | | BASOPHILS/10 | 14:39 | Health | | | | | 0 LEUKOCYTES | | System - | | | | | IN BLOOD BY | | [facility] | | | | | AUTOMATED | | | | | | | COUNT | | | | | | + + + + + + + | | 2021-09-29 | [facility] | 0.5 | % | (missing) | | BASOPHILS/10 | 14:39 | Health | | | | | 0 LEUKOCYTES | | System - | | | | | IN BLOOD BY | | [facility] | | | | | AUTOMATED | | | | | | | COUNT | | | | | | + + + + + + + | IMMATURE | 2021-09-29 | [facility] | 0.5 | % | (missing) | | GRANULOCYTE | 14:39 | Health | | | | | % (AUTO) | | System - | | | | | | | [facility] | | | | + + + + + + + | | 2021-09-29 | [facility] | 0.7 | % | (missing) | | EOSINOPHILS/ | 14:39 | Health | | | | | 100 | | System - | | | | | LEUKOCYTES | | [facility] | | | | | IN BLOOD BY | | | | | | | AUTOMATED | | | | | | | COUNT | | | | | | + + + + + + + | | 2021-09-29 | [facility] | 0.7 | % | (missing) | | EOSINOPHILS/ | 14:39 | Health | | | | | 100 | | System - | | | | | LEUKOCYTES | | [facility] | | | | | IN BLOOD BY | | | | | | | AUTOMATED | | | | | | | COUNT | | | | | | + + + + + + + | CREATININE | 2021-09-29 | [facility] | 0.7 | mg/dl | (missing) | | (MG/DL) IN | 14:39 | Health | | | | | SER/PLAS | | System - | | | | | | | [facility] | | | | + + + + + + + | CREATININE | 2021-09-29 | [facility] | 0.7 | mg/dl | (missing) | | (MG/DL) IN | 14:39 | Health | | | | | SER/PLAS | | System - | | | | | | | [facility] | | | | + + + + + + + | MONOCYTES | 2021-09-29 | [facility] | 0.8 | k/mcl | (missing) | | (10*3/UL) IN | 14:39 | Health | | | | | BLOOD BY | | System - | | | | | AUTOMATED | | [facility] | | | | | COUNT | | | | | | + + + + + + + | MONOCYTES | 2021-09-29 | [facility] | 0.8 | k/mcl | (missing) | | (10*3/UL) IN | 14:39 | Health | | | | | BLOOD BY | | System - | | | | | AUTOMATED | | [facility] | | | | | COUNT | | | | | | + + + + + + + | NEUTROPHILS | 2021-09-29 | [facility] | 10.9 | k/mcl | (missing) | | (10*3/UL) | 14:39 | Health | | | | | IN BLOOD BY | | System - | | | | | AUTOMATED | | [facility] | | | | | COUNT | | | | | | + + + + + + + | NEUTROPHILS | 2021-09-29 | [facility] | 10.9 | k/mcl | (missing) | | (10*3/UL) | 14:39 | Health | | | | | IN BLOOD BY | | System - | | | | | AUTOMATED | | [facility] | | | | | COUNT | | | | | | + + + + + + + | CHLORIDE | 2021-09-29 | [facility] | 104 | mmol/l | (missing) | | (MMOL/L) IN | 14:39 | Health | | | | | SER/PLAS | | System - | | | | | | | [facility] | | | | + + + + + + + | CHLORIDE | 2021-09-29 | [facility] | 104 | mmol/l | (missing) | | (MMOL/L) IN | 14:39 | Health | | | | | SER/PLAS | | System - | | | | | | | [facility] | | | | + + + + + + + | ERYTHROCYTE | 2021-09-29 | [facility] | 12.0 | % | (missing) | | | 14:39 | Health | | | | | DISTRIBUTION | | System - | | | | | WIDTH | | [facility] | | | | | (RATIO) BY | | | | | | | AUTOMATED | | | | | | | COUNT | | | | | | + + + + + + + | ERYTHROCYTE | 2021-09-29 | [facility] | 12.0 | % | (missing) | | | 14:39 | Health | | | | | DISTRIBUTION | | System - | | | | | WIDTH | | [facility] | | | | | (RATIO) BY | | | | | | | AUTOMATED | | | | | | | COUNT | | | | | | + + + + + + + | SODIUM | 2021-09-29 | [facility] | 138 | mmol/l | (missing) | | (MMOL/L) IN | 14:39 | Health | | | | | SER/PLAS | | System - | | | | | | | [facility] | | | | + + + + + + + | SODIUM | 2021-09-29 | [facility] | 138 | mmol/l | (missing) | | (MMOL/L) IN | 14:39 | Health | | | | | SER/PLAS | | System - | | | | | | | [facility] | | | | + + + + + + + | HEMOGLOBIN | 2021-09-29 | [facility] | 14.5 | g/dl | (missing) | | (G/DL) IN | 14:39 | Health | | | | | BLOOD | | System - | | | | | | | [facility] | | | | + + + + + + + | HEMOGLOBIN | 2021-09-29 | [facility] | 14.5 | g/dl | (missing) | | (G/DL) IN | 14:39 | Health | | | | | BLOOD | | System - | | | | | | | [facility] | | | | + + + + + + + | | 2021-09-29 | [facility] | 15.5 | k/mcl | (missing) | | LEUKOCYTES(1 | 14:39 | Health | | | | | 0*3/UL) IN | | System - | | | | | BLOOD BY | | [facility] | | | | | AUTOMATED | | | | | | | COUNT | | | | | | + + + + + + + | | 2021-09-29 | [facility] | 15.5 | k/mcl | (missing) | | LEUKOCYTES(1 | 14:39 | Health | | | | | 0*3/UL) IN | | System - | | | | | BLOOD BY | | [facility] | | | | | AUTOMATED | | | | | | | COUNT | | | | | | + + + + + + + | CARBON | 2021-09-29 | [facility] | 16 | mmol/l | (missing) | | DIOXIDE | 14:39 | Health | | | | | (CO2), TOTAL | | System - | | | | | (MMOL/L) IN | | [facility] | | | | | SER/PLAS | | | | | | + + + + + + + | CARBON | 2021-09-29 | [facility] | 16 | mmol/l | (missing) | | DIOXIDE | 14:39 | Health | | | | | (CO2), TOTAL | | System - | | | | | (MMOL/L) IN | | [facility] | | | | | SER/PLAS | | | | | | + + + + + + + | ANION GAP | 2021-09-29 | [facility] | 18.0 | mmol/l | (missing) | | IN SER/PLAS | 14:39 | Health | | | | | | | System - | | | | | | | [facility] | | | | + + + + + + + | ANION GAP | 2021-09-29 | [facility] | 18.0 | mmol/l | (missing) | | IN SER/PLAS | 14:39 | Health | | | | | | | System - | | | | | | | [facility] | | | | + + + + + + + | | 2021-09-29 | [facility] | 23.1 | % | (missing) | | LYMPHOCYTES/ | 14:39 | Health | | | | | 100 | | System - | | | | | LEUKOCYTES | | [facility] | | | | | IN BLOOD BY | | | | | | | AUTOMATED | | | | | | | COUNT | | | | | | + + + + + + + | | 2021-09-29 | [facility] | 23.1 | % | (missing) | | LYMPHOCYTES/ | 14:39 | Health | | | | | 100 | | System - | | | | | LEUKOCYTES | | [facility] | | | | | IN BLOOD BY | | | | | | | AUTOMATED | | | | | | | COUNT | | | | | | + + + + + + + | POTASSIUM | 2021-09-29 | [facility] | 3.5 | mmol/l | (missing) | | (MMOL/L) IN | 14:39 | Health | | | | | SER/PLAS | | System - | | | | | | | [facility] | | | | + + + + + + + | POTASSIUM | 2021-09-29 | [facility] | 3.5 | mmol/l | (missing) | | (MMOL/L) IN | 14:39 | Health | | | | | SER/PLAS | | System - | | | | | | | [facility] | | | | + + + + + + + | LYMPHOCYTES | 2021-09-29 | [facility] | 3.6 | k/mcl | (missing) | | (10*3/UL) | 14:39 | Health | | | | | IN BLOOD BY | | System - | | | | | AUTOMATED | | [facility] | | | | | COUNT | | | | | | + + + + + + + | LYMPHOCYTES | 2021-09-29 | [facility] | 3.6 | k/mcl | (missing) | | (10*3/UL) | 14:39 | Health | | | | | IN BLOOD BY | | System - | | | | | AUTOMATED | | [facility] | | | | | COUNT | | | | | | + + + + + + + | ERYTHROCYTE | 2021-09-29 | [facility] | 30.3 | pg | (missing) | | MEAN | 14:39 | Health | | | | | CORPUSCULAR | | System - | | | | | HEMOGLOBIN | | [facility] | | | | | (PG) BY | | | | | | | AUTOMATED | | | | | | | COUNT | | | | | | + + + + + + + | ERYTHROCYTE | 2021-09-29 | [facility] | 30.3 | pg | (missing) | | MEAN | 14:39 | Health | | | | | CORPUSCULAR | | System - | | | | | HEMOGLOBIN | | [facility] | | | | | (PG) BY | | | | | | | AUTOMATED | | | | | | | COUNT | | | | | | + + + + + + + | ERYTHROCYTE | 2021-09-29 | [facility] | 33.9 | g/dl | (missing) | | MEAN | 14:39 | Health | | | | | CORPUSCULAR | | System - | | | | | HEMOGLOBIN | | [facility] | | | | | CONCENTRATIO | | | | | | | N (G/DL) BY | | | | | | | AUTOMATED | | | | | | + + + + + + + | ERYTHROCYTE | 2021-09-29 | [facility] | 33.9 | g/dl | (missing) | | MEAN | 14:39 | Health | | | | | CORPUSCULAR | | System - | | | | | HEMOGLOBIN | | [facility] | | | | | CONCENTRATIO | | | | | | | N (G/DL) BY | | | | | | | AUTOMATED | | | | | | + + + + + + + | PLATELETS | 2021-09-29 | [facility] | 381 | k/mcl | (missing) | | (10*3/UL) IN | 14:39 | Health | | | | | BLOOD | | System - | | | | | AUTOMATED | | [facility] | | | | | COUNT | | | | | | + + + + + + + | PLATELETS | 2021-09-29 | [facility] | 381 | k/mcl | (missing) | | (10*3/UL) IN | 14:39 | Health | | | | | BLOOD | | System - | | | | | AUTOMATED | | [facility] | | | | | COUNT | | | | | | + + + + + + + | | 2021-09-29 | [facility] | 4.79 | m/mcl | (missing) | | ERYTHROCYTES | 14:39 | Health | | | | | (10*6/UL) | | System - | | | | | IN BLOOD BY | | [facility] | | | | | AUTOMATED | | | | | | | COUNT | | | | | | + + + + + + + | | 2021-09-29 | [facility] | 4.79 | m/mcl | (missing) | | ERYTHROCYTES | 14:39 | Health | | | | | (10*6/UL) | | System - | | | | | IN BLOOD BY | | [facility] | | | | | AUTOMATED | | | | | | | COUNT | | | | | | + + + + + + + | | 2021-09-29 | [facility] | 4.8 | % | (missing) | | MONOCYTES/10 | 14:39 | Health | | | | | 0 LEUKOCYTES | | System - | | | | | IN BLOOD BY | | [facility] | | | | | AUTOMATED | | | | | | | COUNT | | | | | | + + + + + + + | | 2021-09-29 | [facility] | 4.8 | % | (missing) | | MONOCYTES/10 | 14:39 | Health | | | | | 0 LEUKOCYTES | | System - | | | | | IN BLOOD BY | | [facility] | | | | | AUTOMATED | | | | | | | COUNT | | | | | | + + + + + + + | HEMATOCRIT | 2021-09-29 | [facility] | 42.8 | % | (missing) | | (%) IN BLOOD | 14:39 | Health | | | | | BY | | System - | | | | | AUTOMATED | | [facility] | | | | | COUNT | | | | | | + + + + + + + | HEMATOCRIT | 2021-09-29 | [facility] | 42.8 | % | (missing) | | (%) IN BLOOD | 14:39 | Health | | | | | BY | | System - | | | | | AUTOMATED | | [facility] | | | | | COUNT | | | | | | + + + + + + + | | 2021-09-29 | [facility] | 70.4 | % | (missing) | | NEUTROPHILS/ | 14:39 | Health | | | | | 100 | | System - | | | | | LEUKOCYTES | | [facility] | | | | | IN BLOOD BY | | | | | | | AUTOMATED | | | | | | | COUNT | | | | | | + + + + + + + | | 2021-09-29 | [facility] | 70.4 | % | (missing) | | NEUTROPHILS/ | 14:39 | Health | | | | | 100 | | System - | | | | | LEUKOCYTES | | [facility] | | | | | IN BLOOD BY | | | | | | | AUTOMATED | | | | | | | COUNT | | | | | | + + + + + + + | BLOOD UREA | 2021-09-29 | [facility] | 8 | mg/dl | (missing) | | NITROGEN | 14:39 | Health | | | | | (BUN) | | System - | | | | | (MG/DL) IN | | [facility] | | | | | SER/PLAS | | | | | | + + + + + + + | BLOOD UREA | 2021-09-29 | [facility] | 8 | mg/dl | (missing) | | NITROGEN | 14:39 | Health | | | | | (BUN) | | System - | | | | | (MG/DL) IN | | [facility] | | | | | SER/PLAS | | | | | | + + + + + + + | ERYTHROCYTE | 2021-09-29 | [facility] | 89.4 | fl | (missing) | | MEAN | 14:39 | Health | | | | | CORPUSCULAR | | System - | | | | | VOLUME (FL) | | [facility] | | | | | BY AUTOMATED | | | | | | | COUNT | | | | | | + + + + + + + | ERYTHROCYTE | 2021-09-29 | [facility] | 89.4 | fl | (missing) | | MEAN | 14:39 | Health | | | | | CORPUSCULAR | | System - | | | | | VOLUME (FL) | | [facility] | | | | | BY AUTOMATED | | | | | | | COUNT | | | | | | + + + + + + + | CALCIUM | 2021-09-29 | [facility] | 9.2 | mg/dl | (missing) | | (MG/DL) IN | 14:39 | Health | | | | | SER/PLAS | | System - | | | | | | | [facility] | | | | + + + + + + + | CALCIUM | 2021-09-29 | [facility] | 9.2 | mg/dl | (missing) | | (MG/DL) IN | 14:39 | Health | | | | | SER/PLAS | | System - | | | | | | | [facility] | | | | + + + + + + + | PLATELET | 2021-09-29 | [facility] | 9.3 | fl | (missing) | | MEAN VOLUME | 14:39 | Health | | | | | (FL) IN | | System - | | | | | BLOOD BY | | [facility] | | | | | AUTOMATED | | | | | | | COUNT | | | | | | + + + + + + + | PLATELET | 2021-09-29 | [facility] | 9.3 | fl | (missing) | | MEAN VOLUME | 14:39 | Health | | | | | (FL) IN | | System - | | | | | BLOOD BY | | [facility] | | | | | AUTOMATED | | | | | | | COUNT | | | | | | + + + + + + + | GLUCOSE, | 2021-09-29 | [facility] | 93 | mg/dl | (missing) | | RANDOM | 14:39 | Health | | | | | (MG/DL) IN | | System - | | | | | SER/PLAS | | [facility] | | | | + + + + + + + | GLUCOSE, | 2021-09-29 | [facility] | 93 | mg/dl | (missing) | | RANDOM | 14:39 | Health | | | | | (MG/DL) IN | | System - | | | | | SER/PLAS | | [facility] | | | | + + + + + + + | | 2021-09-29 | [facility] | BONES: No | (missing) | (missing) | | (unavailable | 14:39 | Health | acute or | | | | ) | | System - | suspicious | | | | | | [facility] | bony | | | | | | | abnormality | | | | | | | detected | | | | | | | radiographic | | | | | | | ally. | | | + + + + + + + | | 2021-09-29 | [facility] | COMPARISON: | (missing) | (missing) | | (unavailable | 14:39 | Health | Prior chest | | | | ) | | System - | x-rays most | | | | | | [facility] | recently | | | | | | | dated | | | | | | | 02/07/2021. | | | + + + + + + + | | 2021-09-29 | [facility] | Electronical | (missing) | (missing) | | (unavailable | 14:39 | Health | ly signed | | | | ) | | System - | by: Amber | | | | | | [facility] | MD Juan Pablo | | | | | | | on 09/29/2021 | | | | | | | 3:17 PM at | | | | | | | workstation | | | | | | | [id number] | | | + + + + + + + | | 2021-09-29 | [facility] | FINDINGS: | (missing) | (missing) | | (unavailable | 14:39 | Health | | | | | ) | | System - | | | | | | | [facility] | | | | + + + + + + + | | 2021-09-29 | [facility] | HEART: | (missing) | (missing) | | (unavailable | 14:39 | Health | Normal in | | | | ) | | System - | size and | | | | | | [facility] | appearance. | | | + + + + + + + | | 2021-09-29 | [facility] | | (missing) | (missing) | | (unavailable | 14:39 | Health | INDICATIONS: | | | | ) | | System - | SOB no | | | | | | [facility] | cough hx | | | | | | | asthma | | | + + + + + + + | | 2021-09-29 | [facility] | LUNGS: No | (missing) | (missing) | | (unavailable | 14:39 | Health | focal | | | | ) | | System - | consolidatio | | | | | | [facility] | n or | | | | | | | suspicious | | | | | | | lung nodule. | | | | | | | | | | + + + + + + + | | 2021-09-29 | [facility] | MEDIASTINUM: | (missing) | (missing) | | (unavailable | 14:39 | Health | Normal | | | | ) | | System - | mediastinal | | | | | | [facility] | contours | | | | | | | without | | | | | | | radiographic | | | | | | | evidence of | | | | | | | | | | | | | | lymphadenopa | | | | | | | thy. | | | + + + + + + + | | 2021-09-29 | [facility] | No | (missing) | (missing) | | (unavailable | 14:39 | Health | radiographic | | | | ) | | System - | evidence of | | | | | | [facility] | acute | | | | | | | cardiopulmon | | | | | | | cezar disease. | | | | | | | | | | + + + + + + + | | 2021-09-29 | [facility] | PLEURAL | (missing) | (missing) | | (unavailable | 14:39 | Health | SPACES: No | | | | ) | | System - | pleural | | | | | | [facility] | effusion or | | | | | | | pneumothorax | | | | | | | . | | | + + + + + + + | | 2021-09-29 | [facility] | PROCEDURE: | (missing) | (missing) | | (unavailable | 14:39 | Health | CHEST - TWO | | | | ) | | System - | VIEWS | | | | | | [facility] | | | | + + + + + + + | | 2021-09-29 | [facility] | | (missing) | (missing) | | (unavailable | 14:39 | Health | Procedure(s) | | | | ) | | System - | : * No | | | | | | [facility] | procedures | | | | | | | listed * | | | + + + + + + + + + | Result panel 38 | + + + + + +--------+ + + | TSH | 2021-09-29 | [facility] | 1.72 | mciu/ml | (missing) | | (THYROTROPIN | 14:46 | Health | | | | | ) (UIU/ML) | | System - | | | | | IN SER/PLAS | | [facility] | | | | + + + +--------+ + + | TSH | 2021-09-29 | [facility] | 1.72 | mciu/ml | (missing) | | (THYROTROPIN | 14:46 | Health | | | | | ) (UIU/ML) | | System - | | | | | IN SER/PLAS | | [facility] | | | | + + + +--------+ + + + + | Result panel 39 | + + + + + + + + + | ALCOHOL | 2021-09-29 | [facility] | < | g/dl | (missing) | | (G/DL) IN | 14:52 | Health | | | | | SER/PLAS | | System - | | | | | | | [facility] | | | | + + + + + + + | ALCOHOL | 2021-09-29 | [facility] | < | g/dl | (missing) | | (G/DL) IN | 14:52 | Health | | | | | SER/PLAS | | System - | | | | | | | [facility] | | | | + + + + + + + | | 2021-09-29 | [facility] | < | mcg/ml | (missing) | | ACETAMINOPHE | 14:52 | Health | | | | | N (UG/ML) IN | | System - | | | | | SER/PLAS | | [facility] | | | | + + + + + + + | | 2021-09-29 | [facility] | < | mcg/ml | (missing) | | ACETAMINOPHE | 14:52 | Health | | | | | N (UG/ML) IN | | System - | | | | | SER/PLAS | | [facility] | | | | + + + + + + + | SALICYLATE | 2021-09-29 | [facility] | < | mg/dl | (missing) | | (MG/DL) IN | 14:52 | Health | | | | | SER/PLAS | | System - | | | | | | | [facility] | | | | + + + + + + + | SALICYLATE | 2021-09-29 | [facility] | < | mg/dl | (missing) | | (MG/DL) IN | 14:52 | Health | | | | | SER/PLAS | | System - | | | | | | | [facility] | | | | + + + + + + + | | 2021-09-29 | [facility] | Negative | (missing) | (missing) | | BARBITURATES | 14:52 | Health | | | | | PRESENCE IN | | System - | | | | | URINE BY | | [facility] | | | | | SCREEN | | | | | | | METHOD | | | | | | + + + + + + + | | 2021-09-29 | [facility] | Negative | (missing) | (missing) | | BENZODIAZEPI | 14:52 | Health | | | | | SURYA | | System - | | | | | (PRESENCE) | | [facility] | | | | | IN URINE BY | | | | | | | SCREEN | | | | | | | METHOD | | | | | | + + + + + + + | COCAINE | 2021-09-29 | [facility] | Negative | (missing) | (missing) | | (PRESENCE) | 14:52 | Health | | | | | IN URINE BY | | System - | | | | | SCREEN | | [facility] | | | | | METHOD | | | | | | + + + + + + + | METHADONE | 2021-09-29 | [facility] | Negative | (missing) | (missing) | | (PRESENCE) | 14:52 | Health | | | | | IN URINE BY | | System - | | | | | SCREEN | | [facility] | | | | | METHOD | | | | | | + + + + + + + | OPIATES | 2021-09-29 | [facility] | Negative | (missing) | (missing) | | (PRESENCE) | 14:52 | Health | | | | | IN URINE BY | | System - | | | | | SCREEN | | [facility] | | | | | METHOD | | | | | | + + + + + + + | OXYCODONE | 2021-09-29 | [facility] | Negative | (missing) | (missing) | | (PRESENCE) | 14:52 | Health | | | | | IN URINE BY | | System - | | | | | SCREEN | | [facility] | | | | | METHOD | | | | | | + + + + + + + | | 2021-09-29 | [facility] | Negative | (missing) | (missing) | | PHENCYCLIDIN | 14:52 | Health | | | | | E (PRESENCE) | | System - | | | | | IN URINE BY | | [facility] | | | | | SCREEN | | | | | | | METHOD | | | | | | + + + + + + + | THC | 2021-09-29 | [facility] | Negative | (missing) | (missing) | | (CANNABINOID | 14:52 | Health | | | | | ) IN URINE | | System - | | | | | BY SCREEN | | [facility] | | | | | METHOD | | | | | | + + + + + + + | TRICYCLIC | 2021-09-29 | [facility] | Negative | (missing) | (missing) | | ANTIDEPRESSA | 14:52 | Health | | | | | NTS | | System - | | | | | (PRESENCE) | | [facility] | | | | | IN URINE | | | | | | + + + + + + + | | 2021-09-29 | [facility] | Negative | (missing) | (missing) | | PHENCYCLIDIN | 14:52 | Health | | | | | E (PRESENCE) | | System - | | | | | IN URINE BY | | [facility] | | | | | SCREEN | | | | | | | METHOD | | | | | | + + + + + + + | THC | 2021-09-29 | [facility] | Negative | (missing) | (missing) | | (CANNABINOID | 14:52 | Health | | | | | ) IN URINE | | System - | | | | | BY SCREEN | | [facility] | | | | | METHOD | | | | | | + + + + + + + | OPIATES | 2021-09-29 | [facility] | Negative | (missing) | (missing) | | (PRESENCE) | 14:52 | Health | | | | | IN URINE BY | | System - | | | | | SCREEN | | [facility] | | | | | METHOD | | | | | | + + + + + + + | TRICYCLIC | 2021-09-29 | [facility] | Negative | (missing) | (missing) | | ANTIDEPRESSA | 14:52 | Health | | | | | NTS | | System - | | | | | (PRESENCE) | | [facility] | | | | | IN URINE | | | | | | + + + + + + + | AMPHETAMINE | 2021-09-29 | [facility] | Negative | (missing) | (missing) | | (PRESENCE) | 14:52 | Health | | | | | IN URINE BY | | System - | | | | | SCREEN | | [facility] | | | | | METHOD | | | | | | + + + + + + + | OXYCODONE | 2021-09-29 | [facility] | Negative | (missing) | (missing) | | (PRESENCE) | 14:52 | Health | | | | | IN URINE BY | | System - | | | | | SCREEN | | [facility] | | | | | METHOD | | | | | | + + + + + + + | COCAINE | 2021-09-29 | [facility] | Negative | (missing) | (missing) | | (PRESENCE) | 14:52 | Health | | | | | IN URINE BY | | System - | | | | | SCREEN | | [facility] | | | | | METHOD | | | | | | + + + + + + + | | 2021-09-29 | [facility] | Negative | (missing) | (missing) | | BARBITURATES | 14:52 | Health | | | | | PRESENCE IN | | System - | | | | | URINE BY | | [facility] | | | | | SCREEN | | | | | | | METHOD | | | | | | + + + + + + + | | 2021-09-29 | [facility] | Negative | (missing) | (missing) | | BENZODIAZEPI | 14:52 | Health | | | | | SURYA | | System - | | | | | (PRESENCE) | | [facility] | | | | | IN URINE BY | | | | | | | SCREEN | | | | | | | METHOD | | | | | | + + + + + + + | METHADONE | 2021-09-29 | [facility] | Negative | (missing) | (missing) | | (PRESENCE) | 14:52 | Health | | | | | IN URINE BY | | System - | | | | | SCREEN | | [facility] | | | | | METHOD | | | | | | + + + + + + + | AMPHETAMINE | 2021-09-29 | [facility] | Negative | (missing) | (missing) | | (PRESENCE) | 14:52 | Health | | | | | IN URINE BY | | System - | | | | | SCREEN | | [facility] | | | | | METHOD | | | | | | + + + + + + + | | 2021-09-29 | [facility] | Presumptive | (missing) | (missing) | | METHAMPHETAM | 14:52 | Health | Positive | | | | INE | | System - | | | | | (PRESENCE) | | [facility] | | | | | IN URINE BY | | | | | | | SCREEN | | | | | | | METHOD | | | | | | + + + + + + + | | 2021-09-29 | [facility] | Presumptive | (missing) | (missing) | | METHAMPHETAM | 14:52 | Health | Positive | | | | INE | | System - | | | | | (PRESENCE) | | [facility] | | | | | IN URINE BY | | | | | | | SCREEN | | | | | | | METHOD | | | | | | + + + + + + + + + | Result panel 40 | + + + + + +-----+---------+ + | POCT | 2021-09-29 | [facility] | < | ng/ml | (missing) | | TROPONIN I | 15:08 | Health | | | | | | | System - | | | | | | | [facility] | | | | + + + +-----+---------+ + | POCT | 2021-09-29 | [facility] | < | ng/ml | (missing) | | TROPONIN I | 15:08 | Health | | | | | | | System - | | | | | | | [facility] | | | | + + + +-----+---------+ + + + | Result panel 41 | + + + + + + + + + | EGFR | 2021-10-04 | [facility] | > | | (missing) | | (GLOMERULAR | 09:15 | Health | | ml/min/1.73m | | | FILTRATION | | System - | | ? | | | RATE) | | [facility] | | | | | ML/MIN/1.73 | | | | | | | SQ M. | | | | | | + + + + + + + | EGFR | 2021-10-04 | [facility] | > | | (missing) | | (GLOMERULAR | 09:15 | Health | | ml/min/1.73m | | | FILTRATION | | System - | | ? | | | RATE) | | [facility] | | | | | ML/MIN/1.73 | | | | | | | SQ M. | | | | | | + + + + + + + | ALCOHOL | 2021-10-04 | [facility] | < | g/dl | (missing) | | (G/DL) IN | 09:15 | Health | | | | | SER/PLAS | | System - | | | | | | | [facility] | | | | + + + + + + + | ALCOHOL | 2021-10-04 | [facility] | < | g/dl | (missing) | | (G/DL) IN | 09:15 | Health | | | | | SER/PLAS | | System - | | | | | | | [facility] | | | | + + + + + + + | | 2021-10-04 | [facility] | < | mcg/ml | (missing) | | ACETAMINOPHE | 09:15 | Health | | | | | N (UG/ML) IN | | System - | | | | | SER/PLAS | | [facility] | | | | + + + + + + + | | 2021-10-04 | [facility] | < | mcg/ml | (missing) | | ACETAMINOPHE | 09:15 | Health | | | | | N (UG/ML) IN | | System - | | | | | SER/PLAS | | [facility] | | | | + + + + + + + | SALICYLATE | 2021-10-04 | [facility] | < | mg/dl | (missing) | | (MG/DL) IN | 09:15 | Health | | | | | SER/PLAS | | System - | | | | | | | [facility] | | | | + + + + + + + | BILIRUBIN | 2021-10-04 | [facility] | < | mg/dl | (missing) | | TOTAL | 09:15 | Health | | | | | (MG/DL) IN | | System - | | | | | SER/PLAS | | [facility] | | | | + + + + + + + | BILIRUBIN | 2021-10-04 | [facility] | < | mg/dl | (missing) | | TOTAL | 09:15 | Health | | | | | (MG/DL) IN | | System - | | | | | SER/PLAS | | [facility] | | | | + + + + + + + | SALICYLATE | 2021-10-04 | [facility] | < | mg/dl | (missing) | | (MG/DL) IN | 09:15 | Health | | | | | SER/PLAS | | System - | | | | | | | [facility] | | | | + + + + + + + | NRBC/100 | 2021-10-04 | [facility] | 0.0 | % | (missing) | | WBCS BY | 09:15 | Health | | | | | AUTOMATED | | System - | | | | | COUNT | | [facility] | | | | + + + + + + + | NRBC/100 | 2021-10-04 | [facility] | 0.0 | % | (missing) | | WBCS BY | 09:15 | Health | | | | | AUTOMATED | | System - | | | | | COUNT | | [facility] | | | | + + + + + + + | | 2021-10-04 | [facility] | 0.0 | k/mcl | (missing) | | NRBC(10*3/UL | 09:15 | Health | | | | | ) IN BLOOD | | System - | | | | | BY AUTOMATED | | [facility] | | | | | COUNT | | | | | | + + + + + + + | | 2021-10-04 | [facility] | 0.0 | k/mcl | (missing) | | NRBC(10*3/UL | 09:15 | Health | | | | | ) IN BLOOD | | System - | | | | | BY AUTOMATED | | [facility] | | | | | COUNT | | | | | | + + + + + + + | IMMATURE | 2021-10-04 | [facility] | 0.02 | k/mcl | (missing) | | GRANULOCYTE | 09:15 | Health | | | | | (ABS) | | System - | | | | | | | [facility] | | | | + + + + + + + | IMMATURE | 2021-10-04 | [facility] | 0.02 | k/mcl | (missing) | | GRANULOCYTE | 09:15 | Health | | | | | (ABS) | | System - | | | | | | | [facility] | | | | + + + + + + + | BASOPHILS | 2021-10-04 | [facility] | 0.1 | k/mcl | (missing) | | (10*3/UL) IN | 09:15 | Health | | | | | BLOOD BY | | System - | | | | | AUTOMATED | | [facility] | | | | | COUNT | | | | | | + + + + + + + | BASOPHILS | 2021-10-04 | [facility] | 0.1 | k/mcl | (missing) | | (10*3/UL) IN | 09:15 | Health | | | | | BLOOD BY | | System - | | | | | AUTOMATED | | [facility] | | | | | COUNT | | | | | | + + + + + + + | EOSINOPHILS | 2021-10-04 | [facility] | 0.2 | k/mcl | (missing) | | (10*3/UL) | 09:15 | Health | | | | | IN BLOOD BY | | System - | | | | | AUTOMATED | | [facility] | | | | | COUNT | | | | | | + + + + + + + | EOSINOPHILS | 2021-10-04 | [facility] | 0.2 | k/mcl | (missing) | | (10*3/UL) | 09:15 | Health | | | | | IN BLOOD BY | | System - | | | | | AUTOMATED | | [facility] | | | | | COUNT | | | | | | + + + + + + + | IMMATURE | 2021-10-04 | [facility] | 0.3 | % | (missing) | | GRANULOCYTE | 09:15 | Health | | | | | % (AUTO) | | System - | | | | | | | [facility] | | | | + + + + + + + | IMMATURE | 2021-10-04 | [facility] | 0.3 | % | (missing) | | GRANULOCYTE | 09:15 | Health | | | | | % (AUTO) | | System - | | | | | | | [facility] | | | | + + + + + + + | MONOCYTES | 2021-10-04 | [facility] | 0.5 | k/mcl | (missing) | | (10*3/UL) IN | 09:15 | Health | | | | | BLOOD BY | | System - | | | | | AUTOMATED | | [facility] | | | | | COUNT | | | | | | + + + + + + + | MONOCYTES | 2021-10-04 | [facility] | 0.5 | k/mcl | (missing) | | (10*3/UL) IN | 09:15 | Health | | | | | BLOOD BY | | System - | | | | | AUTOMATED | | [facility] | | | | | COUNT | | | | | | + + + + + + + | CREATININE | 2021-10-04 | [facility] | 0.7 | mg/dl | (missing) | | (MG/DL) IN | 09:15 | Health | | | | | SER/PLAS | | System - | | | | | | | [facility] | | | | + + + + + + + | CREATININE | 2021-10-04 | [facility] | 0.7 | mg/dl | (missing) | | (MG/DL) IN | 09:15 | Health | | | | | SER/PLAS | | System - | | | | | | | [facility] | | | | + + + + + + + | | 2021-10-04 | [facility] | 0.8 | % | (missing) | | BASOPHILS/10 | 09:15 | Health | | | | | 0 LEUKOCYTES | | System - | | | | | IN BLOOD BY | | [facility] | | | | | AUTOMATED | | | | | | | COUNT | | | | | | + + + + + + + | | 2021-10-04 | [facility] | 0.8 | % | (missing) | | BASOPHILS/10 | 09:15 | Health | | | | | 0 LEUKOCYTES | | System - | | | | | IN BLOOD BY | | [facility] | | | | | AUTOMATED | | | | | | | COUNT | | | | | | + + + + + + + | GLUCOSE, | 2021-10-04 | [facility] | 102 | mg/dl | (missing) | | RANDOM | 09:15 | Health | | | | | (MG/DL) IN | | System - | | | | | SER/PLAS | | [facility] | | | | + + + + + + + | GLUCOSE, | 2021-10-04 | [facility] | 102 | mg/dl | (missing) | | RANDOM | 09:15 | Health | | | | | (MG/DL) IN | | System - | | | | | SER/PLAS | | [facility] | | | | + + + + + + + | ANION GAP | 2021-10-04 | [facility] | 11.0 | mmol/l | (missing) | | IN SER/PLAS | 09:15 | Health | | | | | | | System - | | | | | | | [facility] | | | | + + + + + + + | ANION GAP | 2021-10-04 | [facility] | 11.0 | mmol/l | (missing) | | IN SER/PLAS | 09:15 | Health | | | | | | | System - | | | | | | | [facility] | | | | + + + + + + + | CHLORIDE | 2021-10-04 | [facility] | 111 | mmol/l | (missing) | | (MMOL/L) IN | 09:15 | Health | | | | | SER/PLAS | | System - | | | | | | | [facility] | | | | + + + + + + + | CHLORIDE | 2021-10-04 | [facility] | 111 | mmol/l | (missing) | | (MMOL/L) IN | 09:15 | Health | | | | | SER/PLAS | | System - | | | | | | | [facility] | | | | + + + + + + + | BLOOD UREA | 2021-10-04 | [facility] | 12 | mg/dl | (missing) | | NITROGEN | 09:15 | Health | | | | | (BUN) | | System - | | | | | (MG/DL) IN | | [facility] | | | | | SER/PLAS | | | | | | + + + + + + + | BLOOD UREA | 2021-10-04 | [facility] | 12 | mg/dl | (missing) | | NITROGEN | 09:15 | Health | | | | | (BUN) | | System - | | | | | (MG/DL) IN | | [facility] | | | | | SER/PLAS | | | | | | + + + + + + + | ERYTHROCYTE | 2021-10-04 | [facility] | 12.1 | % | (missing) | | | 09:15 | Health | | | | | DISTRIBUTION | | System - | | | | | WIDTH | | [facility] | | | | | (RATIO) BY | | | | | | | AUTOMATED | | | | | | | COUNT | | | | | | + + + + + + + | ERYTHROCYTE | 2021-10-04 | [facility] | 12.1 | % | (missing) | | | 09:15 | Health | | | | | DISTRIBUTION | | System - | | | | | WIDTH | | [facility] | | | | | (RATIO) BY | | | | | | | AUTOMATED | | | | | | | COUNT | | | | | | + + + + + + + | HEMOGLOBIN | 2021-10-04 | [facility] | 13.3 | g/dl | (missing) | | (G/DL) IN | 09:15 | Health | | | | | BLOOD | | System - | | | | | | | [facility] | | | | + + + + + + + | HEMOGLOBIN | 2021-10-04 | [facility] | 13.3 | g/dl | (missing) | | (G/DL) IN | 09:15 | Health | | | | | BLOOD | | System - | | | | | | | [facility] | | | | + + + + + + + | SODIUM | 2021-10-04 | [facility] | 142 | mmol/l | (missing) | | (MMOL/L) IN | 09:15 | Health | | | | | SER/PLAS | | System - | | | | | | | [facility] | | | | + + + + + + + | SODIUM | 2021-10-04 | [facility] | 142 | mmol/l | (missing) | | (MMOL/L) IN | 09:15 | Health | | | | | SER/PLAS | | System - | | | | | | | [facility] | | | | + + + + + + + | ASPARTATE | 2021-10-04 | [facility] | 18 | u/l | (missing) | | AMINOTRANSFE | 09:15 | Health | | | | | RASE (SGOT) | | System - | | | | | (U/L) IN | | [facility] | | | | | SER/PLAS | | | | | | + + + + + + + | ASPARTATE | 2021-10-04 | [facility] | 18 | u/l | (missing) | | AMINOTRANSFE | 09:15 | Health | | | | | RASE (SGOT) | | System - | | | | | (U/L) IN | | [facility] | | | | | SER/PLAS | | | | | | + + + + + + + | | 2021-10-04 | [facility] | 2.5 | % | (missing) | | EOSINOPHILS/ | 09:15 | Health | | | | | 100 | | System - | | | | | LEUKOCYTES | | [facility] | | | | | IN BLOOD BY | | | | | | | AUTOMATED | | | | | | | COUNT | | | | | | + + + + + + + | | 2021-10-04 | [facility] | 2.5 | % | (missing) | | EOSINOPHILS/ | 09:15 | Health | | | | | 100 | | System - | | | | | LEUKOCYTES | | [facility] | | | | | IN BLOOD BY | | | | | | | AUTOMATED | | | | | | | COUNT | | | | | | + + + + + + + | LYMPHOCYTES | 2021-10-04 | [facility] | 2.6 | k/mcl | (missing) | | (10*3/UL) | 09:15 | Health | | | | | IN BLOOD BY | | System - | | | | | AUTOMATED | | [facility] | | | | | COUNT | | | | | | + + + + + + + | LYMPHOCYTES | 2021-10-04 | [facility] | 2.6 | k/mcl | (missing) | | (10*3/UL) | 09:15 | Health | | | | | IN BLOOD BY | | System - | | | | | AUTOMATED | | [facility] | | | | | COUNT | | | | | | + + + + + + + | CARBON | 2021-10-04 | [facility] | 20 | mmol/l | (missing) | | DIOXIDE | 09:15 | Health | | | | | (CO2), TOTAL | | System - | | | | | (MMOL/L) IN | | [facility] | | | | | SER/PLAS | | | | | | + + + + + + + | CARBON | 2021-10-04 | [facility] | 20 | mmol/l | (missing) | | DIOXIDE | 09:15 | Health | | | | | (CO2), TOTAL | | System - | | | | | (MMOL/L) IN | | [facility] | | | | | SER/PLAS | | | | | | + + + + + + + | ALANINE | 2021-10-04 | [facility] | 20 | u/l | (missing) | | AMINOTRANSFE | 09:15 | Health | | | | | RASE (SGPT) | | System - | | | | | (U/L) IN | | [facility] | | | | | SER/PLAS | | | | | | + + + + + + + | ALANINE | 2021-10-04 | [facility] | 20 | u/l | (missing) | | AMINOTRANSFE | 09:15 | Health | | | | | RASE (SGPT) | | System - | | | | | (U/L) IN | | [facility] | | | | | SER/PLAS | | | | | | + + + + + + + | NEUTROPHILS | 2021-10-04 | [facility] | 3.2 | k/mcl | (missing) | | (10*3/UL) | 09:15 | Health | | | | | IN BLOOD BY | | System - | | | | | AUTOMATED | | [facility] | | | | | COUNT | | | | | | + + + + + + + | NEUTROPHILS | 2021-10-04 | [facility] | 3.2 | k/mcl | (missing) | | (10*3/UL) | 09:15 | Health | | | | | IN BLOOD BY | | System - | | | | | AUTOMATED | | [facility] | | | | | COUNT | | | | | | + + + + + + + | POTASSIUM | 2021-10-04 | [facility] | 3.6 | mmol/l | (missing) | | (MMOL/L) IN | 09:15 | Health | | | | | SER/PLAS | | System - | | | | | | | [facility] | | | | + + + + + + + | POTASSIUM | 2021-10-04 | [facility] | 3.6 | mmol/l | (missing) | | (MMOL/L) IN | 09:15 | Health | | | | | SER/PLAS | | System - | | | | | | | [facility] | | | | + + + + + + + | ALBUMIN | 2021-10-04 | [facility] | 3.8 | g/dl | (missing) | | (G/DL) IN | 09:15 | Health | | | | | SER/PLAS | | System - | | | | | | | [facility] | | | | + + + + + + + | ALBUMIN | 2021-10-04 | [facility] | 3.8 | g/dl | (missing) | | (G/DL) IN | 09:15 | Health | | | | | SER/PLAS | | System - | | | | | | | [facility] | | | | + + + + + + + | ERYTHROCYTE | 2021-10-04 | [facility] | 30.4 | pg | (missing) | | MEAN | 09:15 | Health | | | | | CORPUSCULAR | | System - | | | | | HEMOGLOBIN | | [facility] | | | | | (PG) BY | | | | | | | AUTOMATED | | | | | | | COUNT | | | | | | + + + + + + + | ERYTHROCYTE | 2021-10-04 | [facility] | 30.4 | pg | (missing) | | MEAN | 09:15 | Health | | | | | CORPUSCULAR | | System - | | | | | HEMOGLOBIN | | [facility] | | | | | (PG) BY | | | | | | | AUTOMATED | | | | | | | COUNT | | | | | | + + + + + + + | PLATELETS | 2021-10-04 | [facility] | 316 | k/mcl | (missing) | | (10*3/UL) IN | 09:15 | Health | | | | | BLOOD | | System - | | | | | AUTOMATED | | [facility] | | | | | COUNT | | | | | | + + + + + + + | PLATELETS | 2021-10-04 | [facility] | 316 | k/mcl | (missing) | | (10*3/UL) IN | 09:15 | Health | | | | | BLOOD | | System - | | | | | AUTOMATED | | [facility] | | | | | COUNT | | | | | | + + + + + + + | ERYTHROCYTE | 2021-10-04 | [facility] | 33.8 | g/dl | (missing) | | MEAN | 09:15 | Health | | | | | CORPUSCULAR | | System - | | | | | HEMOGLOBIN | | [facility] | | | | | CONCENTRATIO | | | | | | | N (G/DL) BY | | | | | | | AUTOMATED | | | | | | + + + + + + + | ERYTHROCYTE | 2021-10-04 | [facility] | 33.8 | g/dl | (missing) | | MEAN | 09:15 | Health | | | | | CORPUSCULAR | | System - | | | | | HEMOGLOBIN | | [facility] | | | | | CONCENTRATIO | | | | | | | N (G/DL) BY | | | | | | | AUTOMATED | | | | | | + + + + + + + | HEMATOCRIT | 2021-10-04 | [facility] | 39.3 | % | (missing) | | (%) IN BLOOD | 09:15 | Health | | | | | BY | | System - | | | | | AUTOMATED | | [facility] | | | | | COUNT | | | | | | + + + + + + + | HEMATOCRIT | 2021-10-04 | [facility] | 39.3 | % | (missing) | | (%) IN BLOOD | 09:15 | Health | | | | | BY | | System - | | | | | AUTOMATED | | [facility] | | | | | COUNT | | | | | | + + + + + + + | | 2021-10-04 | [facility] | 4.38 | m/mcl | (missing) | | ERYTHROCYTES | 09:15 | Health | | | | | (10*6/UL) | | System - | | | | | IN BLOOD BY | | [facility] | | | | | AUTOMATED | | | | | | | COUNT | | | | | | + + + + + + + | | 2021-10-04 | [facility] | 4.38 | m/mcl | (missing) | | ERYTHROCYTES | 09:15 | Health | | | | | (10*6/UL) | | System - | | | | | IN BLOOD BY | | [facility] | | | | | AUTOMATED | | | | | | | COUNT | | | | | | + + + + + + + | | 2021-10-04 | [facility] | 40.3 | % | (missing) | | LYMPHOCYTES/ | 09:15 | Health | | | | | 100 | | System - | | | | | LEUKOCYTES | | [facility] | | | | | IN BLOOD BY | | | | | | | AUTOMATED | | | | | | | COUNT | | | | | | + + + + + + + | | 2021-10-04 | [facility] | 40.3 | % | (missing) | | LYMPHOCYTES/ | 09:15 | Health | | | | | 100 | | System - | | | | | LEUKOCYTES | | [facility] | | | | | IN BLOOD BY | | | | | | | AUTOMATED | | | | | | | COUNT | | | | | | + + + + + + + | | 2021-10-04 | [facility] | 49.1 | % | (missing) | | NEUTROPHILS/ | 09:15 | Health | | | | | 100 | | System - | | | | | LEUKOCYTES | | [facility] | | | | | IN BLOOD BY | | | | | | | AUTOMATED | | | | | | | COUNT | | | | | | + + + + + + + | | 2021-10-04 | [facility] | 49.1 | % | (missing) | | NEUTROPHILS/ | 09:15 | Health | | | | | 100 | | System - | | | | | LEUKOCYTES | | [facility] | | | | | IN BLOOD BY | | | | | | | AUTOMATED | | | | | | | COUNT | | | | | | + + + + + + + | PROTEIN | 2021-10-04 | [facility] | 5.9 | g/dl | (missing) | | (G/DL) IN | 09:15 | Health | | | | | SER/PLAS | | System - | | | | | | | [facility] | | | | + + + + + + + | PROTEIN | 2021-10-04 | [facility] | 5.9 | g/dl | (missing) | | (G/DL) IN | 09:15 | Health | | | | | SER/PLAS | | System - | | | | | | | [facility] | | | | + + + + + + + | | 2021-10-04 | [facility] | 6.5 | k/mcl | (missing) | | LEUKOCYTES(1 | 09:15 | Health | | | | | 0*3/UL) IN | | System - | | | | | BLOOD BY | | [facility] | | | | | AUTOMATED | | | | | | | COUNT | | | | | | + + + + + + + | | 2021-10-04 | [facility] | 6.5 | k/mcl | (missing) | | LEUKOCYTES(1 | 09:15 | Health | | | | | 0*3/UL) IN | | System - | | | | | BLOOD BY | | [facility] | | | | | AUTOMATED | | | | | | | COUNT | | | | | | + + + + + + + | ALKALINE | 2021-10-04 | [facility] | 62 | u/l | (missing) | | PHOSPHATASE | 09:15 | Health | | | | | (U/L) IN | | System - | | | | | SER/PLAS | | [facility] | | | | + + + + + + + | ALKALINE | 2021-10-04 | [facility] | 62 | u/l | (missing) | | PHOSPHATASE | 09:15 | Health | | | | | (U/L) IN | | System - | | | | | SER/PLAS | | [facility] | | | | + + + + + + + | | 2021-10-04 | [facility] | 7.0 | % | (missing) | | MONOCYTES/10 | 09:15 | Health | | | | | 0 LEUKOCYTES | | System - | | | | | IN BLOOD BY | | [facility] | | | | | AUTOMATED | | | | | | | COUNT | | | | | | + + + + + + + | | 2021-10-04 | [facility] | 7.0 | % | (missing) | | MONOCYTES/10 | 09:15 | Health | | | | | 0 LEUKOCYTES | | System - | | | | | IN BLOOD BY | | [facility] | | | | | AUTOMATED | | | | | | | COUNT | | | | | | + + + + + + + | CALCIUM | 2021-10-04 | [facility] | 8.5 | mg/dl | (missing) | | (MG/DL) IN | 09:15 | Health | | | | | SER/PLAS | | System - | | | | | | | [facility] | | | | + + + + + + + | CALCIUM | 2021-10-04 | [facility] | 8.5 | mg/dl | (missing) | | (MG/DL) IN | 09:15 | Health | | | | | SER/PLAS | | System - | | | | | | | [facility] | | | | + + + + + + + | ERYTHROCYTE | 2021-10-04 | [facility] | 89.7 | fl | (missing) | | MEAN | 09:15 | Health | | | | | CORPUSCULAR | | System - | | | | | VOLUME (FL) | | [facility] | | | | | BY AUTOMATED | | | | | | | COUNT | | | | | | + + + + + + + | ERYTHROCYTE | 2021-10-04 | [facility] | 89.7 | fl | (missing) | | MEAN | 09:15 | Health | | | | | CORPUSCULAR | | System - | | | | | VOLUME (FL) | | [facility] | | | | | BY AUTOMATED | | | | | | | COUNT | | | | | | + + + + + + + | PLATELET | 2021-10-04 | [facility] | 9.3 | fl | (missing) | | MEAN VOLUME | 09:15 | Health | | | | | (FL) IN | | System - | | | | | BLOOD BY | | [facility] | | | | | AUTOMATED | | | | | | | COUNT | | | | | | + + + + + + + | PLATELET | 2021-10-04 | [facility] | 9.3 | fl | (missing) | | MEAN VOLUME | 09:15 | Health | | | | | (FL) IN | | System - | | | | | BLOOD BY | | [facility] | | | | | AUTOMATED | | | | | | | COUNT | | | | | | + + + + + + + | | 2021-10-04 | [facility] | Negative | (missing) | (missing) | | BARBITURATES | 09:15 | Health | | | | | PRESENCE IN | | System - | | | | | URINE BY | | [facility] | | | | | SCREEN | | | | | | | METHOD | | | | | | + + + + + + + | | 2021-10-04 | [facility] | Negative | (missing) | (missing) | | BENZODIAZEPI | 09:15 | Health | | | | | SURYA | | System - | | | | | (PRESENCE) | | [facility] | | | | | IN URINE BY | | | | | | | SCREEN | | | | | | | METHOD | | | | | | + + + + + + + | COCAINE | 2021-10-04 | [facility] | Negative | (missing) | (missing) | | (PRESENCE) | 09:15 | Health | | | | | IN URINE BY | | System - | | | | | SCREEN | | [facility] | | | | | METHOD | | | | | | + + + + + + + | METHADONE | 2021-10-04 | [facility] | Negative | (missing) | (missing) | | (PRESENCE) | 09:15 | Health | | | | | IN URINE BY | | System - | | | | | SCREEN | | [facility] | | | | | METHOD | | | | | | + + + + + + + | OPIATES | 2021-10-04 | [facility] | Negative | (missing) | (missing) | | (PRESENCE) | 09:15 | Health | | | | | IN URINE BY | | System - | | | | | SCREEN | | [facility] | | | | | METHOD | | | | | | + + + + + + + | OXYCODONE | 2021-10-04 | [facility] | Negative | (missing) | (missing) | | (PRESENCE) | 09:15 | Health | | | | | IN URINE BY | | System - | | | | | SCREEN | | [facility] | | | | | METHOD | | | | | | + + + + + + + | | 2021-10-04 | [facility] | Negative | (missing) | (missing) | | PHENCYCLIDIN | 09:15 | Health | | | | | E (PRESENCE) | | System - | | | | | IN URINE BY | | [facility] | | | | | SCREEN | | | | | | | METHOD | | | | | | + + + + + + + | TRICYCLIC | 2021-10-04 | [facility] | Negative | (missing) | (missing) | | ANTIDEPRESSA | 09:15 | Health | | | | | NTS | | System - | | | | | (PRESENCE) | | [facility] | | | | | IN URINE | | | | | | + + + + + + + | | 2021-10-04 | [facility] | Negative | (missing) | (missing) | | PHENCYCLIDIN | 09:15 | Health | | | | | E (PRESENCE) | | System - | | | | | IN URINE BY | | [facility] | | | | | SCREEN | | | | | | | METHOD | | | | | | + + + + + + + | OPIATES | 2021-10-04 | [facility] | Negative | (missing) | (missing) | | (PRESENCE) | 09:15 | Health | | | | | IN URINE BY | | System - | | | | | SCREEN | | [facility] | | | | | METHOD | | | | | | + + + + + + + | TRICYCLIC | 2021-10-04 | [facility] | Negative | (missing) | (missing) | | ANTIDEPRESSA | 09:15 | Health | | | | | NTS | | System - | | | | | (PRESENCE) | | [facility] | | | | | IN URINE | | | | | | + + + + + + + | OXYCODONE | 2021-10-04 | [facility] | Negative | (missing) | (missing) | | (PRESENCE) | 09:15 | Health | | | | | IN URINE BY | | System - | | | | | SCREEN | | [facility] | | | | | METHOD | | | | | | + + + + + + + | BHCG QUAL | 2021-10-04 | [facility] | Negative | (missing) | (missing) | | (CHORIOGONAD | 09:15 | Health | | | | | OTROPIN) IN | | System - | | | | | SER/PLAS | | [facility] | | | | + + + + + + + | COCAINE | 2021-10-04 | [facility] | Negative | (missing) | (missing) | | (PRESENCE) | 09:15 | Health | | | | | IN URINE BY | | System - | | | | | SCREEN | | [facility] | | | | | METHOD | | | | | | + + + + + + + | | 2021-10-04 | [facility] | Negative | (missing) | (missing) | | BARBITURATES | 09:15 | Health | | | | | PRESENCE IN | | System - | | | | | URINE BY | | [facility] | | | | | SCREEN | | | | | | | METHOD | | | | | | + + + + + + + | | 2021-10-04 | [facility] | Negative | (missing) | (missing) | | BENZODIAZEPI | 09:15 | Health | | | | | SURYA | | System - | | | | | (PRESENCE) | | [facility] | | | | | IN URINE BY | | | | | | | SCREEN | | | | | | | METHOD | | | | | | + + + + + + + | METHADONE | 2021-10-04 | [facility] | Negative | (missing) | (missing) | | (PRESENCE) | 09:15 | Health | | | | | IN URINE BY | | System - | | | | | SCREEN | | [facility] | | | | | METHOD | | | | | | + + + + + + + | BHCG QUAL | 2021-10-04 | [facility] | Negative | (missing) | (missing) | | (CHORIOGONAD | 09:15 | Health | | | | | OTROPIN) IN | | System - | | | | | SER/PLAS | | [facility] | | | | + + + + + + + | | 2021-10-04 | [facility] | Presumptive | (missing) | (missing) | | METHAMPHETAM | 09:15 | Health | Positive | | | | INE | | System - | | | | | (PRESENCE) | | [facility] | | | | | IN URINE BY | | | | | | | SCREEN | | | | | | | METHOD | | | | | | + + + + + + + | THC | 2021-10-04 | [facility] | Presumptive | (missing) | (missing) | | (CANNABINOID | 09:15 | Health | Positive | | | | ) IN URINE | | System - | | | | | BY SCREEN | | [facility] | | | | | METHOD | | | | | | + + + + + + + | THC | 2021-10-04 | [facility] | Presumptive | (missing) | (missing) | | (CANNABINOID | 09:15 | Health | Positive | | | | ) IN URINE | | System - | | | | | BY SCREEN | | [facility] | | | | | METHOD | | | | | | + + + + + + + | AMPHETAMINE | 2021-10-04 | [facility] | Presumptive | (missing) | (missing) | | (PRESENCE) | 09:15 | Health | Positive | | | | IN URINE BY | | System - | | | | | SCREEN | | [facility] | | | | | METHOD | | | | | | + + + + + + + | | 2021-10-04 | [facility] | Presumptive | (missing) | (missing) | | METHAMPHETAM | 09:15 | Health | Positive | | | | INE | | System - | | | | | (PRESENCE) | | [facility] | | | | | IN URINE BY | | | | | | | SCREEN | | | | | | | METHOD | | | | | | + + + + + + + | AMPHETAMINE | 2021-10-04 | [facility] | Presumptive | (missing) | (missing) | | (PRESENCE) | 09:15 | Health | Positive | | | | IN URINE BY | | System - | | | | | SCREEN | | [facility] | | | | | METHOD | | | | | | + + + + + + + + + | Result panel 42 | + + + + + + + + + | INFLUENZA A | 2021-10-04 | [facility] | Negative | (missing) | (missing) | | | 09:40 | Health | | | | | | | System - | | | | | | | [facility] | | | | + + + + + + + | INFLUENZA B | 2021-10-04 | [facility] | Negative | (missing) | (missing) | | | 09:40 | Health | | | | | | | System - | | | | | | | [facility] | | | | + + + + + + + | RSV | 2021-10-04 | [facility] | Negative | (missing) | (missing) | | | 09:40 | Health | | | | | | | System - | | | | | | | [facility] | | | | + + + + + + + | SARS-COV-2 | 2021-10-04 | [facility] | Negative | (missing) | (missing) | | (COVID19) | 09:40 | Health | | | | | CEPHEID PCR | | System - | | | | | | | [facility] | | | | + + + + + + + | INFLUENZA A | 2021-10-04 | [facility] | Negative | (missing) | (missing) | | | 09:40 | Health | | | | | | | System - | | | | | | | [facility] | | | | + + + + + + + | INFLUENZA B | 2021-10-04 | [facility] | Negative | (missing) | (missing) | | | 09:40 | Health | | | | | | | System - | | | | | | | [facility] | | | | + + + + + + + | RSV | 2021-10-04 | [facility] | Negative | (missing) | (missing) | | | 09:40 | Health | | | | | | | System - | | | | | | | [facility] | | | | + + + + + + + | SARS-COV-2 | 2021-10-04 | [facility] | Negative | (missing) | (missing) | | (COVID19) | 09:40 | Health | | | | | CEPHEID PCR | | System - | | | | | | | [facility] | | | | + + + + + + + + + | Result panel 43 | + + + + + + + + + | EGFR | 2021-11-10 | [facility] | > | | (missing) | | (GLOMERULAR | 18:58 | Health | | ml/min/1.73m | | | FILTRATION | | System - | | ? | | | RATE) | | [facility] | | | | | ML/MIN/1.73 | | | | | | | SQ M. | | | | | | + + + + + + + | EGFR | 2021-11-10 | [facility] | > | | (missing) | | (GLOMERULAR | 18:58 | Health | | ml/min/1.73m | | | FILTRATION | | System - | | ? | | | RATE) | | [facility] | | | | | ML/MIN/1.73 | | | | | | | SQ M. | | | | | | + + + + + + + | ALCOHOL | 2021-11-10 | [facility] | < | g/dl | (missing) | | (G/DL) IN | 18:58 | Health | | | | | SER/PLAS | | System - | | | | | | | [facility] | | | | + + + + + + + | ALCOHOL | 2021-11-10 | [facility] | < | g/dl | (missing) | | (G/DL) IN | 18:58 | Health | | | | | SER/PLAS | | System - | | | | | | | [facility] | | | | + + + + + + + | | 2021-11-10 | [facility] | < | mcg/ml | (missing) | | ACETAMINOPHE | 18:58 | Health | | | | | N (UG/ML) IN | | System - | | | | | SER/PLAS | | [facility] | | | | + + + + + + + | | 2021-11-10 | [facility] | < | mcg/ml | (missing) | | ACETAMINOPHE | 18:58 | Health | | | | | N (UG/ML) IN | | System - | | | | | SER/PLAS | | [facility] | | | | + + + + + + + | SALICYLATE | 2021-11-10 | [facility] | < | mg/dl | (missing) | | (MG/DL) IN | 18:58 | Health | | | | | SER/PLAS | | System - | | | | | | | [facility] | | | | + + + + + + + | BILIRUBIN | 2021-11-10 | [facility] | < | mg/dl | (missing) | | TOTAL | 18:58 | Health | | | | | (MG/DL) IN | | System - | | | | | SER/PLAS | | [facility] | | | | + + + + + + + | BILIRUBIN | 2021-11-10 | [facility] | < | mg/dl | (missing) | | TOTAL | 18:58 | Health | | | | | (MG/DL) IN | | System - | | | | | SER/PLAS | | [facility] | | | | + + + + + + + | SALICYLATE | 2021-11-10 | [facility] | < | mg/dl | (missing) | | (MG/DL) IN | 18:58 | Health | | | | | SER/PLAS | | System - | | | | | | | [facility] | | | | + + + + + + + | NRBC/100 | 2021-11-10 | [facility] | 0.0 | % | (missing) | | WBCS BY | 18:58 | Health | | | | | AUTOMATED | | System - | | | | | COUNT | | [facility] | | | | + + + + + + + | NRBC/100 | 2021-11-10 | [facility] | 0.0 | % | (missing) | | WBCS BY | 18:58 | Health | | | | | AUTOMATED | | System - | | | | | COUNT | | [facility] | | | | + + + + + + + | | 2021-11-10 | [facility] | 0.0 | k/mcl | (missing) | | NRBC(10*3/UL | 18:58 | Health | | | | | ) IN BLOOD | | System - | | | | | BY AUTOMATED | | [facility] | | | | | COUNT | | | | | | + + + + + + + | | 2021-11-10 | [facility] | 0.0 | k/mcl | (missing) | | NRBC(10*3/UL | 18:58 | Health | | | | | ) IN BLOOD | | System - | | | | | BY AUTOMATED | | [facility] | | | | | COUNT | | | | | | + + + + + + + | IMMATURE | 2021-11-10 | [facility] | 0.09 | k/mcl | (missing) | | GRANULOCYTE | 18:58 | Health | | | | | (ABS) | | System - | | | | | | | [facility] | | | | + + + + + + + | IMMATURE | 2021-11-10 | [facility] | 0.09 | k/mcl | (missing) | | GRANULOCYTE | 18:58 | Health | | | | | (ABS) | | System - | | | | | | | [facility] | | | | + + + + + + + | BASOPHILS | 2021-11-10 | [facility] | 0.1 | k/mcl | (missing) | | (10*3/UL) IN | 18:58 | Health | | | | | BLOOD BY | | System - | | | | | AUTOMATED | | [facility] | | | | | COUNT | | | | | | + + + + + + + | EOSINOPHILS | 2021-11-10 | [facility] | 0.1 | k/mcl | (missing) | | (10*3/UL) | 18:58 | Health | | | | | IN BLOOD BY | | System - | | | | | AUTOMATED | | [facility] | | | | | COUNT | | | | | | + + + + + + + | BASOPHILS | 2021-11-10 | [facility] | 0.1 | k/mcl | (missing) | | (10*3/UL) IN | 18:58 | Health | | | | | BLOOD BY | | System - | | | | | AUTOMATED | | [facility] | | | | | COUNT | | | | | | + + + + + + + | EOSINOPHILS | 2021-11-10 | [facility] | 0.1 | k/mcl | (missing) | | (10*3/UL) | 18:58 | Health | | | | | IN BLOOD BY | | System - | | | | | AUTOMATED | | [facility] | | | | | COUNT | | | | | | + + + + + + + | MONOCYTES | 2021-11-10 | [facility] | 0.7 | k/mcl | (missing) | | (10*3/UL) IN | 18:58 | Health | | | | | BLOOD BY | | System - | | | | | AUTOMATED | | [facility] | | | | | COUNT | | | | | | + + + + + + + | MONOCYTES | 2021-11-10 | [facility] | 0.7 | k/mcl | (missing) | | (10*3/UL) IN | 18:58 | Health | | | | | BLOOD BY | | System - | | | | | AUTOMATED | | [facility] | | | | | COUNT | | | | | | + + + + + + + | CREATININE | 2021-11-10 | [facility] | 0.7 | mg/dl | (missing) | | (MG/DL) IN | 18:58 | Health | | | | | SER/PLAS | | System - | | | | | | | [facility] | | | | + + + + + + + | CREATININE | 2021-11-10 | [facility] | 0.7 | mg/dl | (missing) | | (MG/DL) IN | 18:58 | Health | | | | | SER/PLAS | | System - | | | | | | | [facility] | | | | + + + + + + + | | 2021-11-10 | [facility] | 0.8 | % | (missing) | | BASOPHILS/10 | 18:58 | Health | | | | | 0 LEUKOCYTES | | System - | | | | | IN BLOOD BY | | [facility] | | | | | AUTOMATED | | | | | | | COUNT | | | | | | + + + + + + + | | 2021-11-10 | [facility] | 0.8 | % | (missing) | | BASOPHILS/10 | 18:58 | Health | | | | | 0 LEUKOCYTES | | System - | | | | | IN BLOOD BY | | [facility] | | | | | AUTOMATED | | | | | | | COUNT | | | | | | + + + + + + + | IMMATURE | 2021-11-10 | [facility] | 0.9 | % | (missing) | | GRANULOCYTE | 18:58 | Health | | | | | % (AUTO) | | System - | | | | | | | [facility] | | | | + + + + + + + | IMMATURE | 2021-11-10 | [facility] | 0.9 | % | (missing) | | GRANULOCYTE | 18:58 | Health | | | | | % (AUTO) | | System - | | | | | | | [facility] | | | | + + + + + + + | | 2021-11-10 | [facility] | 1.3 | % | (missing) | | EOSINOPHILS/ | 18:58 | Health | | | | | 100 | | System - | | | | | LEUKOCYTES | | [facility] | | | | | IN BLOOD BY | | | | | | | AUTOMATED | | | | | | | COUNT | | | | | | + + + + + + + | | 2021-11-10 | [facility] | 1.3 | % | (missing) | | EOSINOPHILS/ | 18:58 | Health | | | | | 100 | | System - | | | | | LEUKOCYTES | | [facility] | | | | | IN BLOOD BY | | | | | | | AUTOMATED | | | | | | | COUNT | | | | | | + + + + + + + | CHLORIDE | 2021-11-10 | [facility] | 109 | mmol/l | (missing) | | (MMOL/L) IN | 18:58 | Health | | | | | SER/PLAS | | System - | | | | | | | [facility] | | | | + + + + + + + | CHLORIDE | 2021-11-10 | [facility] | 109 | mmol/l | (missing) | | (MMOL/L) IN | 18:58 | Health | | | | | SER/PLAS | | System - | | | | | | | [facility] | | | | + + + + + + + | ANION GAP | 2021-11-10 | [facility] | 12.0 | mmol/l | (missing) | | IN SER/PLAS | 18:58 | Health | | | | | | | System - | | | | | | | [facility] | | | | + + + + + + + | ANION GAP | 2021-11-10 | [facility] | 12.0 | mmol/l | (missing) | | IN SER/PLAS | 18:58 | Health | | | | | | | System - | | | | | | | [facility] | | | | + + + + + + + | ERYTHROCYTE | 2021-11-10 | [facility] | 12.3 | % | (missing) | | | 18:58 | Health | | | | | DISTRIBUTION | | System - | | | | | WIDTH | | [facility] | | | | | (RATIO) BY | | | | | | | AUTOMATED | | | | | | | COUNT | | | | | | + + + + + + + | ERYTHROCYTE | 2021-11-10 | [facility] | 12.3 | % | (missing) | | | 18:58 | Health | | | | | DISTRIBUTION | | System - | | | | | WIDTH | | [facility] | | | | | (RATIO) BY | | | | | | | AUTOMATED | | | | | | | COUNT | | | | | | + + + + + + + | HEMOGLOBIN | 2021-11-10 | [facility] | 13.6 | g/dl | (missing) | | (G/DL) IN | 18:58 | Health | | | | | BLOOD | | System - | | | | | | | [facility] | | | | + + + + + + + | HEMOGLOBIN | 2021-11-10 | [facility] | 13.6 | g/dl | (missing) | | (G/DL) IN | 18:58 | Health | | | | | BLOOD | | System - | | | | | | | [facility] | | | | + + + + + + + | SODIUM | 2021-11-10 | [facility] | 142 | mmol/l | (missing) | | (MMOL/L) IN | 18:58 | Health | | | | | SER/PLAS | | System - | | | | | | | [facility] | | | | + + + + + + + | SODIUM | 2021-11-10 | [facility] | 142 | mmol/l | (missing) | | (MMOL/L) IN | 18:58 | Health | | | | | SER/PLAS | | System - | | | | | | | [facility] | | | | + + + + + + + | ALANINE | 2021-11-10 | [facility] | 15 | u/l | (missing) | | AMINOTRANSFE | 18:58 | Health | | | | | RASE (SGPT) | | System - | | | | | (U/L) IN | | [facility] | | | | | SER/PLAS | | | | | | + + + + + + + | ALANINE | 2021-11-10 | [facility] | 15 | u/l | (missing) | | AMINOTRANSFE | 18:58 | Health | | | | | RASE (SGPT) | | System - | | | | | (U/L) IN | | [facility] | | | | | SER/PLAS | | | | | | + + + + + + + | CARBON | 2021-11-10 | [facility] | 21 | mmol/l | (missing) | | DIOXIDE | 18:58 | Health | | | | | (CO2), TOTAL | | System - | | | | | (MMOL/L) IN | | [facility] | | | | | SER/PLAS | | | | | | + + + + + + + | CARBON | 2021-11-10 | [facility] | 21 | mmol/l | (missing) | | DIOXIDE | 18:58 | Health | | | | | (CO2), TOTAL | | System - | | | | | (MMOL/L) IN | | [facility] | | | | | SER/PLAS | | | | | | + + + + + + + | ASPARTATE | 2021-11-10 | [facility] | 22 | u/l | (missing) | | AMINOTRANSFE | 18:58 | Health | | | | | RASE (SGOT) | | System - | | | | | (U/L) IN | | [facility] | | | | | SER/PLAS | | | | | | + + + + + + + | ASPARTATE | 2021-11-10 | [facility] | 22 | u/l | (missing) | | AMINOTRANSFE | 18:58 | Health | | | | | RASE (SGOT) | | System - | | | | | (U/L) IN | | [facility] | | | | | SER/PLAS | | | | | | + + + + + + + | POTASSIUM | 2021-11-10 | [facility] | 3.4 | mmol/l | (missing) | | (MMOL/L) IN | 18:58 | Health | | | | | SER/PLAS | | System - | | | | | | | [facility] | | | | + + + + + + + | POTASSIUM | 2021-11-10 | [facility] | 3.4 | mmol/l | (missing) | | (MMOL/L) IN | 18:58 | Health | | | | | SER/PLAS | | System - | | | | | | | [facility] | | | | + + + + + + + | TSH | 2021-11-10 | [facility] | 3.58 | mciu/ml | (missing) | | (THYROTROPIN | 18:58 | Health | | | | | ) (UIU/ML) | | System - | | | | | IN SER/PLAS | | [facility] | | | | + + + + + + + | TSH | 2021-11-10 | [facility] | 3.58 | mciu/ml | (missing) | | (THYROTROPIN | 18:58 | Health | | | | | ) (UIU/ML) | | System - | | | | | IN SER/PLAS | | [facility] | | | | + + + + + + + | LYMPHOCYTES | 2021-11-10 | [facility] | 3.7 | k/mcl | (missing) | | (10*3/UL) | 18:58 | Health | | | | | IN BLOOD BY | | System - | | | | | AUTOMATED | | [facility] | | | | | COUNT | | | | | | + + + + + + + | LYMPHOCYTES | 2021-11-10 | [facility] | 3.7 | k/mcl | (missing) | | (10*3/UL) | 18:58 | Health | | | | | IN BLOOD BY | | System - | | | | | AUTOMATED | | [facility] | | | | | COUNT | | | | | | + + + + + + + | ERYTHROCYTE | 2021-11-10 | [facility] | 30.6 | pg | (missing) | | MEAN | 18:58 | Health | | | | | CORPUSCULAR | | System - | | | | | HEMOGLOBIN | | [facility] | | | | | (PG) BY | | | | | | | AUTOMATED | | | | | | | COUNT | | | | | | + + + + + + + | ERYTHROCYTE | 2021-11-10 | [facility] | 30.6 | pg | (missing) | | MEAN | 18:58 | Health | | | | | CORPUSCULAR | | System - | | | | | HEMOGLOBIN | | [facility] | | | | | (PG) BY | | | | | | | AUTOMATED | | | | | | | COUNT | | | | | | + + + + + + + | ERYTHROCYTE | 2021-11-10 | [facility] | 32.9 | g/dl | (missing) | | MEAN | 18:58 | Health | | | | | CORPUSCULAR | | System - | | | | | HEMOGLOBIN | | [facility] | | | | | CONCENTRATIO | | | | | | | N (G/DL) BY | | | | | | | AUTOMATED | | | | | | + + + + + + + | ERYTHROCYTE | 2021-11-10 | [facility] | 32.9 | g/dl | (missing) | | MEAN | 18:58 | Health | | | | | CORPUSCULAR | | System - | | | | | HEMOGLOBIN | | [facility] | | | | | CONCENTRATIO | | | | | | | N (G/DL) BY | | | | | | | AUTOMATED | | | | | | + + + + + + + | PLATELETS | 2021-11-10 | [facility] | 354 | k/mcl | (missing) | | (10*3/UL) IN | 18:58 | Health | | | | | BLOOD | | System - | | | | | AUTOMATED | | [facility] | | | | | COUNT | | | | | | + + + + + + + | PLATELETS | 2021-11-10 | [facility] | 354 | k/mcl | (missing) | | (10*3/UL) IN | 18:58 | Health | | | | | BLOOD | | System - | | | | | AUTOMATED | | [facility] | | | | | COUNT | | | | | | + + + + + + + | | 2021-11-10 | [facility] | 37.6 | % | (missing) | | LYMPHOCYTES/ | 18:58 | Health | | | | | 100 | | System - | | | | | LEUKOCYTES | | [facility] | | | | | IN BLOOD BY | | | | | | | AUTOMATED | | | | | | | COUNT | | | | | | + + + + + + + | | 2021-11-10 | [facility] | 37.6 | % | (missing) | | LYMPHOCYTES/ | 18:58 | Health | | | | | 100 | | System - | | | | | LEUKOCYTES | | [facility] | | | | | IN BLOOD BY | | | | | | | AUTOMATED | | | | | | | COUNT | | | | | | + + + + + + + | ALBUMIN | 2021-11-10 | [facility] | 4.4 | g/dl | (missing) | | (G/DL) IN | 18:58 | Health | | | | | SER/PLAS | | System - | | | | | | | [facility] | | | | + + + + + + + | ALBUMIN | 2021-11-10 | [facility] | 4.4 | g/dl | (missing) | | (G/DL) IN | 18:58 | Health | | | | | SER/PLAS | | System - | | | | | | | [facility] | | | | + + + + + + + | | 2021-11-10 | [facility] | 4.45 | m/mcl | (missing) | | ERYTHROCYTES | 18:58 | Health | | | | | (10*6/UL) | | System - | | | | | IN BLOOD BY | | [facility] | | | | | AUTOMATED | | | | | | | COUNT | | | | | | + + + + + + + | | 2021-11-10 | [facility] | 4.45 | m/mcl | (missing) | | ERYTHROCYTES | 18:58 | Health | | | | | (10*6/UL) | | System - | | | | | IN BLOOD BY | | [facility] | | | | | AUTOMATED | | | | | | | COUNT | | | | | | + + + + + + + | HEMATOCRIT | 2021-11-10 | [facility] | 41.3 | % | (missing) | | (%) IN BLOOD | 18:58 | Health | | | | | BY | | System - | | | | | AUTOMATED | | [facility] | | | | | COUNT | | | | | | + + + + + + + | HEMATOCRIT | 2021-11-10 | [facility] | 41.3 | % | (missing) | | (%) IN BLOOD | 18:58 | Health | | | | | BY | | System - | | | | | AUTOMATED | | [facility] | | | | | COUNT | | | | | | + + + + + + + | NEUTROPHILS | 2021-11-10 | [facility] | 5.1 | k/mcl | (missing) | | (10*3/UL) | 18:58 | Health | | | | | IN BLOOD BY | | System - | | | | | AUTOMATED | | [facility] | | | | | COUNT | | | | | | + + + + + + + | NEUTROPHILS | 2021-11-10 | [facility] | 5.1 | k/mcl | (missing) | | (10*3/UL) | 18:58 | Health | | | | | IN BLOOD BY | | System - | | | | | AUTOMATED | | [facility] | | | | | COUNT | | | | | | + + + + + + + | | 2021-11-10 | [facility] | 52.4 | % | (missing) | | NEUTROPHILS/ | 18:58 | Health | | | | | 100 | | System - | | | | | LEUKOCYTES | | [facility] | | | | | IN BLOOD BY | | | | | | | AUTOMATED | | | | | | | COUNT | | | | | | + + + + + + + | | 2021-11-10 | [facility] | 52.4 | % | (missing) | | NEUTROPHILS/ | 18:58 | Health | | | | | 100 | | System - | | | | | LEUKOCYTES | | [facility] | | | | | IN BLOOD BY | | | | | | | AUTOMATED | | | | | | | COUNT | | | | | | + + + + + + + | ALKALINE | 2021-11-10 | [facility] | 59 | u/l | (missing) | | PHOSPHATASE | 18:58 | Health | | | | | (U/L) IN | | System - | | | | | SER/PLAS | | [facility] | | | | + + + + + + + | ALKALINE | 2021-11-10 | [facility] | 59 | u/l | (missing) | | PHOSPHATASE | 18:58 | Health | | | | | (U/L) IN | | System - | | | | | SER/PLAS | | [facility] | | | | + + + + + + + | PROTEIN | 2021-11-10 | [facility] | 6.9 | g/dl | (missing) | | (G/DL) IN | 18:58 | Health | | | | | SER/PLAS | | System - | | | | | | | [facility] | | | | + + + + + + + | PROTEIN | 2021-11-10 | [facility] | 6.9 | g/dl | (missing) | | (G/DL) IN | 18:58 | Health | | | | | SER/PLAS | | System - | | | | | | | [facility] | | | | + + + + + + + | BLOOD UREA | 2021-11-10 | [facility] | 7 | mg/dl | (missing) | | NITROGEN | 18:58 | Health | | | | | (BUN) | | System - | | | | | (MG/DL) IN | | [facility] | | | | | SER/PLAS | | | | | | + + + + + + + | BLOOD UREA | 2021-11-10 | [facility] | 7 | mg/dl | (missing) | | NITROGEN | 18:58 | Health | | | | | (BUN) | | System - | | | | | (MG/DL) IN | | [facility] | | | | | SER/PLAS | | | | | | + + + + + + + | | 2021-11-10 | [facility] | 7.0 | % | (missing) | | MONOCYTES/10 | 18:58 | Health | | | | | 0 LEUKOCYTES | | System - | | | | | IN BLOOD BY | | [facility] | | | | | AUTOMATED | | | | | | | COUNT | | | | | | + + + + + + + | | 2021-11-10 | [facility] | 7.0 | % | (missing) | | MONOCYTES/10 | 18:58 | Health | | | | | 0 LEUKOCYTES | | System - | | | | | IN BLOOD BY | | [facility] | | | | | AUTOMATED | | | | | | | COUNT | | | | | | + + + + + + + | CALCIUM | 2021-11-10 | [facility] | 8.4 | mg/dl | (missing) | | (MG/DL) IN | 18:58 | Health | | | | | SER/PLAS | | System - | | | | | | | [facility] | | | | + + + + + + + | CALCIUM | 2021-11-10 | [facility] | 8.4 | mg/dl | (missing) | | (MG/DL) IN | 18:58 | Health | | | | | SER/PLAS | | System - | | | | | | | [facility] | | | | + + + + + + + | PLATELET | 2021-11-10 | [facility] | 9.2 | fl | (missing) | | MEAN VOLUME | 18:58 | Health | | | | | (FL) IN | | System - | | | | | BLOOD BY | | [facility] | | | | | AUTOMATED | | | | | | | COUNT | | | | | | + + + + + + + | PLATELET | 2021-11-10 | [facility] | 9.2 | fl | (missing) | | MEAN VOLUME | 18:58 | Health | | | | | (FL) IN | | System - | | | | | BLOOD BY | | [facility] | | | | | AUTOMATED | | | | | | | COUNT | | | | | | + + + + + + + | | 2021-11-10 | [facility] | 9.8 | k/mcl | (missing) | | LEUKOCYTES(1 | 18:58 | Health | | | | | 0*3/UL) IN | | System - | | | | | BLOOD BY | | [facility] | | | | | AUTOMATED | | | | | | | COUNT | | | | | | + + + + + + + | | 2021-11-10 | [facility] | 9.8 | k/mcl | (missing) | | LEUKOCYTES(1 | 18:58 | Health | | | | | 0*3/UL) IN | | System - | | | | | BLOOD BY | | [facility] | | | | | AUTOMATED | | | | | | | COUNT | | | | | | + + + + + + + | GLUCOSE, | 2021-11-10 | [facility] | 90 | mg/dl | (missing) | | RANDOM | 18:58 | Health | | | | | (MG/DL) IN | | System - | | | | | SER/PLAS | | [facility] | | | | + + + + + + + | GLUCOSE, | 2021-11-10 | [facility] | 90 | mg/dl | (missing) | | RANDOM | 18:58 | Health | | | | | (MG/DL) IN | | System - | | | | | SER/PLAS | | [facility] | | | | + + + + + + + | ERYTHROCYTE | 2021-11-10 | [facility] | 92.8 | fl | (missing) | | MEAN | 18:58 | Health | | | | | CORPUSCULAR | | System - | | | | | VOLUME (FL) | | [facility] | | | | | BY AUTOMATED | | | | | | | COUNT | | | | | | + + + + + + + | ERYTHROCYTE | 2021-11-10 | [facility] | 92.8 | fl | (missing) | | MEAN | 18:58 | Health | | | | | CORPUSCULAR | | System - | | | | | VOLUME (FL) | | [facility] | | | | | BY AUTOMATED | | | | | | | COUNT | | | | | | + + + + + + + | INFLUENZA A | 2021-11-10 | [facility] | Negative | (missing) | (missing) | | | 18:58 | Health | | | | | | | System - | | | | | | | [facility] | | | | + + + + + + + | INFLUENZA B | 2021-11-10 | [facility] | Negative | (missing) | (missing) | | | 18:58 | Health | | | | | | | System - | | | | | | | [facility] | | | | + + + + + + + | RSV | 2021-11-10 | [facility] | Negative | (missing) | (missing) | | | 18:58 | Health | | | | | | | System - | | | | | | | [facility] | | | | + + + + + + + | SARS-COV-2 | 2021-11-10 | [facility] | Negative | (missing) | (missing) | | (COVID19) | 18:58 | Health | | | | | CEPHEID PCR | | System - | | | | | | | [facility] | | | | + + + + + + + | [facility] QUAL | 2021-11-10 | [facility] | Negative | (missing) | (missing) | | (CHORIOGONAD | 18:58 | Health | | | | | OTROPIN) IN | | System - | | | | | SER/PLAS | | [facility] | | | | + + + + + + + | INFLUENZA A | 2021-11-10 | [facility] | Negative | (missing) | (missing) | | | 18:58 | Health | | | | | | | System - | | | | | | | [facility] | | | | + + + + + + + | INFLUENZA B | 2021-11-10 | [facility] | Negative | (missing) | (missing) | | | 18:58 | Health | | | | | | | System - | | | | | | | [facility] | | | | + + + + + + + | RSV | 2021-11-10 | [facility] | Negative | (missing) | (missing) | | | 18:58 | Health | | | | | | | System - | | | | | | | [facility] | | | | + + + + + + + | SARS-COV-2 | 2021-11-10 | [facility] | Negative | (missing) | (missing) | | (COVID19) | 18:58 | Health | | | | | CEPHEID PCR | | System - | | | | | | | [facility] | | | | + + + + + + + | [facility] QUAL | 2021-11-10 | [facility] | Negative | (missing) | (missing) | | (CHORIOGONAD | 18:58 | Health | | | | | OTROPIN) IN | | System - | | | | | SER/PLAS | | [facility] | | | | + + + + + + + + + | Result panel 44 | + + + + + +--------+---------+ + | NRBC/100 | 2021-11-12 | [facility] | 0.0 | % | (missing) | | WBCS BY | 03:53 | Health | | | | | AUTOMATED | | System - | | | | | COUNT | | [facility] | | | | + + + +--------+---------+ + | NRBC/100 | 2021-11-12 | [facility] | 0.0 | % | (missing) | | WBCS BY | 03:53 | Health | | | | | AUTOMATED | | System - | | | | | COUNT | | [facility] | | | | + + + +--------+---------+ + | | 2021-11-12 | [facility] | 0.0 | k/mcl | (missing) | | NRBC(10*3/UL | 03:53 | Health | | | | | ) IN BLOOD | | System - | | | | | BY AUTOMATED | | [facility] | | | | | COUNT | | | | | | + + + +--------+---------+ + | | 2021-11-12 | [facility] | 0.0 | k/mcl | (missing) | | NRBC(10*3/UL | 03:53 | Health | | | | | ) IN BLOOD | | System - | | | | | BY AUTOMATED | | [facility] | | | | | COUNT | | | | | | + + + +--------+---------+ + | IMMATURE | 2021-11-12 | [facility] | 0.08 | k/mcl | (missing) | | GRANULOCYTE | 03:53 | Health | | | | | (ABS) | | System - | | | | | | | [facility] | | | | + + + +--------+---------+ + | IMMATURE | 2021-11-12 | [facility] | 0.08 | k/mcl | (missing) | | GRANULOCYTE | 03:53 | Health | | | | | (ABS) | | System - | | | | | | | [facility] | | | | + + + +--------+---------+ + | BASOPHILS | 2021-11-12 | [facility] | 0.1 | k/mcl | (missing) | | (10*3/UL) IN | 03:53 | Health | | | | | BLOOD BY | | System - | | | | | AUTOMATED | | [facility] | | | | | COUNT | | | | | | + + + +--------+---------+ + | BASOPHILS | 2021-11-12 | [facility] | 0.1 | k/mcl | (missing) | | (10*3/UL) IN | 03:53 | Health | | | | | BLOOD BY | | System - | | | | | AUTOMATED | | [facility] | | | | | COUNT | | | | | | + + + +--------+---------+ + | EOSINOPHILS | 2021-11-12 | [facility] | 0.2 | k/mcl | (missing) | | (10*3/UL) | 03:53 | Health | | | | | IN BLOOD BY | | System - | | | | | AUTOMATED | | [facility] | | | | | COUNT | | | | | | + + + +--------+---------+ + | EOSINOPHILS | 2021-11-12 | [facility] | 0.2 | k/mcl | (missing) | | (10*3/UL) | 03:53 | Health | | | | | IN BLOOD BY | | System - | | | | | AUTOMATED | | [facility] | | | | | COUNT | | | | | | + + + +--------+---------+ + | | 2021-11-12 | [facility] | 0.6 | % | (missing) | | BASOPHILS/10 | 03:53 | Health | | | | | 0 LEUKOCYTES | | System - | | | | | IN BLOOD BY | | [facility] | | | | | AUTOMATED | | | | | | | COUNT | | | | | | + + + +--------+---------+ + | | 2021-11-12 | [facility] | 0.6 | % | (missing) | | BASOPHILS/10 | 03:53 | Health | | | | | 0 LEUKOCYTES | | System - | | | | | IN BLOOD BY | | [facility] | | | | | AUTOMATED | | | | | | | COUNT | | | | | | + + + +--------+---------+ + | MONOCYTES | 2021-11-12 | [facility] | 0.7 | k/mcl | (missing) | | (10*3/UL) IN | 03:53 | Health | | | | | BLOOD BY | | System - | | | | | AUTOMATED | | [facility] | | | | | COUNT | | | | | | + + + +--------+---------+ + | MONOCYTES | 2021-11-12 | [facility] | 0.7 | k/mcl | (missing) | | (10*3/UL) IN | 03:53 | Health | | | | | BLOOD BY | | System - | | | | | AUTOMATED | | [facility] | | | | | COUNT | | | | | | + + + +--------+---------+ + | IMMATURE | 2021-11-12 | [facility] | 0.8 | % | (missing) | | GRANULOCYTE | 03:53 | Health | | | | | % (AUTO) | | System - | | | | | | | [facility] | | | | + + + +--------+---------+ + | IMMATURE | 2021-11-12 | [facility] | 0.8 | % | (missing) | | GRANULOCYTE | 03:53 | Health | | | | | % (AUTO) | | System - | | | | | | | [facility] | | | | + + + +--------+---------+ + | | 2021-11-12 | [facility] | 1.7 | % | (missing) | | EOSINOPHILS/ | 03:53 | Health | | | | | 100 | | System - | | | | | LEUKOCYTES | | [facility] | | | | | IN BLOOD BY | | | | | | | AUTOMATED | | | | | | | COUNT | | | | | | + + + +--------+---------+ + | | 2021-11-12 | [facility] | 1.7 | % | (missing) | | EOSINOPHILS/ | 03:53 | Health | | | | | 100 | | System - | | | | | LEUKOCYTES | | [facility] | | | | | IN BLOOD BY | | | | | | | AUTOMATED | | | | | | | COUNT | | | | | | + + + +--------+---------+ + | ERYTHROCYTE | 2021-11-12 | [facility] | 12.4 | % | (missing) | | | 03:53 | Health | | | | | DISTRIBUTION | | System - | | | | | WIDTH | | [facility] | | | | | (RATIO) BY | | | | | | | AUTOMATED | | | | | | | COUNT | | | | | | + + + +--------+---------+ + | ERYTHROCYTE | 2021-11-12 | [facility] | 12.4 | % | (missing) | | | 03:53 | Health | | | | | DISTRIBUTION | | System - | | | | | WIDTH | | [facility] | | | | | (RATIO) BY | | | | | | | AUTOMATED | | | | | | | COUNT | | | | | | + + + +--------+---------+ + | HEMOGLOBIN | 2021-11-12 | [facility] | 14.1 | g/dl | (missing) | | (G/DL) IN | 03:53 | Health | | | | | BLOOD | | System - | | | | | | | [facility] | | | | + + + +--------+---------+ + | HEMOGLOBIN | 2021-11-12 | [facility] | 14.1 | g/dl | (missing) | | (G/DL) IN | 03:53 | Health | | | | | BLOOD | | System - | | | | | | | [facility] | | | | + + + +--------+---------+ + | LYMPHOCYTES | 2021-11-12 | [facility] | 3.7 | k/mcl | (missing) | | (10*3/UL) | 03:53 | Health | | | | | IN BLOOD BY | | System - | | | | | AUTOMATED | | [facility] | | | | | COUNT | | | | | | + + + +--------+---------+ + | LYMPHOCYTES | 2021-11-12 | [facility] | 3.7 | k/mcl | (missing) | | (10*3/UL) | 03:53 | Health | | | | | IN BLOOD BY | | System - | | | | | AUTOMATED | | [facility] | | | | | COUNT | | | | | | + + + +--------+---------+ + | ERYTHROCYTE | 2021-11-12 | [facility] | 30.8 | pg | (missing) | | MEAN | 03:53 | Health | | | | | CORPUSCULAR | | System - | | | | | HEMOGLOBIN | | [facility] | | | | | (PG) BY | | | | | | | AUTOMATED | | | | | | | COUNT | | | | | | + + + +--------+---------+ + | ERYTHROCYTE | 2021-11-12 | [facility] | 30.8 | pg | (missing) | | MEAN | 03:53 | Health | | | | | CORPUSCULAR | | System - | | | | | HEMOGLOBIN | | [facility] | | | | | (PG) BY | | | | | | | AUTOMATED | | | | | | | COUNT | | | | | | + + + +--------+---------+ + | ERYTHROCYTE | 2021-11-12 | [facility] | 33.1 | g/dl | (missing) | | MEAN | 03:53 | Health | | | | | CORPUSCULAR | | System - | | | | | HEMOGLOBIN | | [facility] | | | | | CONCENTRATIO | | | | | | | N (G/DL) BY | | | | | | | AUTOMATED | | | | | | + + + +--------+---------+ + | ERYTHROCYTE | 2021-11-12 | [facility] | 33.1 | g/dl | (missing) | | MEAN | 03:53 | Health | | | | | CORPUSCULAR | | System - | | | | | HEMOGLOBIN | | [facility] | | | | | CONCENTRATIO | | | | | | | N (G/DL) BY | | | | | | | AUTOMATED | | | | | | + + + +--------+---------+ + | | 2021-11-12 | [facility] | 36.9 | % | (missing) | | LYMPHOCYTES/ | 03:53 | Health | | | | | 100 | | System - | | | | | LEUKOCYTES | | [facility] | | | | | IN BLOOD BY | | | | | | | AUTOMATED | | | | | | | COUNT | | | | | | + + + +--------+---------+ + | | 2021-11-12 | [facility] | 36.9 | % | (missing) | | LYMPHOCYTES/ | 03:53 | Health | | | | | 100 | | System - | | | | | LEUKOCYTES | | [facility] | | | | | IN BLOOD BY | | | | | | | AUTOMATED | | | | | | | COUNT | | | | | | + + + +--------+---------+ + | PLATELETS | 2021-11-12 | [facility] | 391 | k/mcl | (missing) | | (10*3/UL) IN | 03:53 | Health | | | | | BLOOD | | System - | | | | | AUTOMATED | | [facility] | | | | | COUNT | | | | | | + + + +--------+---------+ + | PLATELETS | 2021-11-12 | [facility] | 391 | k/mcl | (missing) | | (10*3/UL) IN | 03:53 | Health | | | | | BLOOD | | System - | | | | | AUTOMATED | | [facility] | | | | | COUNT | | | | | | + + + +--------+---------+ + | | 2021-11-12 | [facility] | 4.58 | m/mcl | (missing) | | ERYTHROCYTES | 03:53 | Health | | | | | (10*6/UL) | | System - | | | | | IN BLOOD BY | | [facility] | | | | | AUTOMATED | | | | | | | COUNT | | | | | | + + + +--------+---------+ + | | 2021-11-12 | [facility] | 4.58 | m/mcl | (missing) | | ERYTHROCYTES | 03:53 | Health | | | | | (10*6/UL) | | System - | | | | | IN BLOOD BY | | [facility] | | | | | AUTOMATED | | | | | | | COUNT | | | | | | + + + +--------+---------+ + | HEMATOCRIT | 2021-11-12 | [facility] | 42.6 | % | (missing) | | (%) IN BLOOD | 03:53 | Health | | | | | BY | | System - | | | | | AUTOMATED | | [facility] | | | | | COUNT | | | | | | + + + +--------+---------+ + | HEMATOCRIT | 2021-11-12 | [facility] | 42.6 | % | (missing) | | (%) IN BLOOD | 03:53 | Health | | | | | BY | | System - | | | | | AUTOMATED | | [facility] | | | | | COUNT | | | | | | + + + +--------+---------+ + | NEUTROPHILS | 2021-11-12 | [facility] | 5.3 | k/mcl | (missing) | | (10*3/UL) | 03:53 | Health | | | | | IN BLOOD BY | | System - | | | | | AUTOMATED | | [facility] | | | | | COUNT | | | | | | + + + +--------+---------+ + | NEUTROPHILS | 2021-11-12 | [facility] | 5.3 | k/mcl | (missing) | | (10*3/UL) | 03:53 | Health | | | | | IN BLOOD BY | | System - | | | | | AUTOMATED | | [facility] | | | | | COUNT | | | | | | + + + +--------+---------+ + | | 2021-11-12 | [facility] | 53.2 | % | (missing) | | NEUTROPHILS/ | 03:53 | Health | | | | | 100 | | System - | | | | | LEUKOCYTES | | [facility] | | | | | IN BLOOD BY | | | | | | | AUTOMATED | | | | | | | COUNT | | | | | | + + + +--------+---------+ + | | 2021-11-12 | [facility] | 53.2 | % | (missing) | | NEUTROPHILS/ | 03:53 | Health | | | | | 100 | | System - | | | | | LEUKOCYTES | | [facility] | | | | | IN BLOOD BY | | | | | | | AUTOMATED | | | | | | | COUNT | | | | | | + + + +--------+---------+ + | | 2021-11-12 | [facility] | 6.8 | % | (missing) | | MONOCYTES/10 | 03:53 | Health | | | | | 0 LEUKOCYTES | | System - | | | | | IN BLOOD BY | | [facility] | | | | | AUTOMATED | | | | | | | COUNT | | | | | | + + + +--------+---------+ + | | 2021-11-12 | [facility] | 6.8 | % | (missing) | | MONOCYTES/10 | 03:53 | Health | | | | | 0 LEUKOCYTES | | System - | | | | | IN BLOOD BY | | [facility] | | | | | AUTOMATED | | | | | | | COUNT | | | | | | + + + +--------+---------+ + | PLATELET | 2021-11-12 | [facility] | 9.2 | fl | (missing) | | MEAN VOLUME | 03:53 | Health | | | | | (FL) IN | | System - | | | | | BLOOD BY | | [facility] | | | | | AUTOMATED | | | | | | | COUNT | | | | | | + + + +--------+---------+ + | PLATELET | 2021-11-12 | [facility] | 9.2 | fl | (missing) | | MEAN VOLUME | 03:53 | Health | | | | | (FL) IN | | System - | | | | | BLOOD BY | | [facility] | | | | | AUTOMATED | | | | | | | COUNT | | | | | | + + + +--------+---------+ + | | 2021-11-12 | [facility] | 9.9 | k/mcl | (missing) | | LEUKOCYTES(1 | 03:53 | Health | | | | | 0*3/UL) IN | | System - | | | | | BLOOD BY | | [facility] | | | | | AUTOMATED | | | | | | | COUNT | | | | | | + + + +--------+---------+ + | | 2021-11-12 | [facility] | 9.9 | k/mcl | (missing) | | LEUKOCYTES(1 | 03:53 | Health | | | | | 0*3/UL) IN | | System - | | | | | BLOOD BY | | [facility] | | | | | AUTOMATED | | | | | | | COUNT | | | | | | + + + +--------+---------+ + | ERYTHROCYTE | 2021-11-12 | [facility] | 93.0 | fl | (missing) | | MEAN | 03:53 | Health | | | | | CORPUSCULAR | | System - | | | | | VOLUME (FL) | | [facility] | | | | | BY AUTOMATED | | | | | | | COUNT | | | | | | + + + +--------+---------+ + | ERYTHROCYTE | 2021-11-12 | [facility] | 93.0 | fl | (missing) | | MEAN | 03:53 | Health | | | | | CORPUSCULAR | | System - | | | | | VOLUME (FL) | | [facility] | | | | | BY AUTOMATED | | | | | | | COUNT | | | | | | + + + +--------+---------+ + + + | Result panel 45 | + + + + + + + + + | EGFR | 2021-11-12 | [facility] | > | | (missing) | | (GLOMERULAR | 03:54 | Health | | ml/min/1.73m | | | FILTRATION | | System - | | ? | | | RATE) | | [facility] | | | | | ML/MIN/1.73 | | | | | | | SQ M. | | | | | | + + + + + + + | EGFR | 2021-11-12 | [facility] | > | | (missing) | | (GLOMERULAR | 03:54 | Health | | ml/min/1.73m | | | FILTRATION | | System - | | ? | | | RATE) | | [facility] | | | | | ML/MIN/1.73 | | | | | | | SQ M. | | | | | | + + + + + + + | ALCOHOL | 2021-11-12 | [facility] | < | g/dl | (missing) | | (G/DL) IN | 03:54 | Health | | | | | SER/PLAS | | System - | | | | | | | [facility] | | | | + + + + + + + | ALCOHOL | 2021-11-12 | [facility] | < | g/dl | (missing) | | (G/DL) IN | 03:54 | Health | | | | | SER/PLAS | | System - | | | | | | | [facility] | | | | + + + + + + + | | 2021-11-12 | [facility] | < | mcg/ml | (missing) | | ACETAMINOPHE | 03:54 | Health | | | | | N (UG/ML) IN | | System - | | | | | SER/PLAS | | [facility] | | | | + + + + + + + | | 2021-11-12 | [facility] | < | mcg/ml | (missing) | | ACETAMINOPHE | 03:54 | Health | | | | | N (UG/ML) IN | | System - | | | | | SER/PLAS | | [facility] | | | | + + + + + + + | SALICYLATE | 2021-11-12 | [facility] | < | mg/dl | (missing) | | (MG/DL) IN | 03:54 | Health | | | | | SER/PLAS | | System - | | | | | | | [facility] | | | | + + + + + + + | BILIRUBIN | 2021-11-12 | [facility] | < | mg/dl | (missing) | | TOTAL | 03:54 | Health | | | | | (MG/DL) IN | | System - | | | | | SER/PLAS | | [facility] | | | | + + + + + + + | BILIRUBIN | 2021-11-12 | [facility] | < | mg/dl | (missing) | | TOTAL | 03:54 | Health | | | | | (MG/DL) IN | | System - | | | | | SER/PLAS | | [facility] | | | | + + + + + + + | SALICYLATE | 2021-11-12 | [facility] | < | mg/dl | (missing) | | (MG/DL) IN | 03:54 | Health | | | | | SER/PLAS | | System - | | | | | | | [facility] | | | | + + + + + + + | CREATININE | 2021-11-12 | [facility] | 0.7 | mg/dl | (missing) | | (MG/DL) IN | 03:54 | Health | | | | | SER/PLAS | | System - | | | | | | | [facility] | | | | + + + + + + + | CREATININE | 2021-11-12 | [facility] | 0.7 | mg/dl | (missing) | | (MG/DL) IN | 03:54 | Health | | | | | SER/PLAS | | System - | | | | | | | [facility] | | | | + + + + + + + | LEUKOCYTE | 2021-11-12 | [facility] | 1 | (missing) | (missing) | | ESTERASE | 03:54 | Health | | | | | PRESENCE IN | | System - | | | | | URINE BY | | [facility] | | | | | TEST STRIP | | | | | | + + + + + + + | LEUKOCYTE | 2021-11-12 | [facility] | 1 | (missing) | (missing) | | ESTERASE | 03:54 | Health | | | | | PRESENCE IN | | System - | | | | | URINE BY | | [facility] | | | | | TEST STRIP | | | | | | + + + + + + + | SPECIFIC | 2021-11-12 | [facility] | 1.031 | (missing) | (missing) | | GRAVITY OF | 03:54 | Health | | | | | URINE BY | | System - | | | | | AUTOMATED | | [facility] | | | | | TEST STRIP | | | | | | + + + + + + + | SPECIFIC | 2021-11-12 | [facility] | 1.031 | (missing) | (missing) | | GRAVITY OF | 03:54 | Health | | | | | URINE BY | | System - | | | | | AUTOMATED | | [facility] | | | | | TEST STRIP | | | | | | + + + + + + + | CHLORIDE | 2021-11-12 | [facility] | 107 | mmol/l | (missing) | | (MMOL/L) IN | 03:54 | Health | | | | | SER/PLAS | | System - | | | | | | | [facility] | | | | + + + + + + + | CHLORIDE | 2021-11-12 | [facility] | 107 | mmol/l | (missing) | | (MMOL/L) IN | 03:54 | Health | | | | | SER/PLAS | | System - | | | | | | | [facility] | | | | + + + + + + + | WBC | 2021-11-12 | [facility] | 11 | /hpf | (missing) | | (LEUKOCYTE) | 03:54 | Health | | | | | (#/HPF) IN | | System - | | | | | URINE | | [facility] | | | | | SEDIMENT | | | | | | + + + + + + + | WBC | 2021-11-12 | [facility] | 11 | /hpf | (missing) | | (LEUKOCYTE) | 03:54 | Health | | | | | (#/HPF) IN | | System - | | | | | URINE | | [facility] | | | | | SEDIMENT | | | | | | + + + + + + + | ANION GAP | 2021-11-12 | [facility] | 11.0 | mmol/l | (missing) | | IN SER/PLAS | 03:54 | Health | | | | | | | System - | | | | | | | [facility] | | | | + + + + + + + | ANION GAP | 2021-11-12 | [facility] | 11.0 | mmol/l | (missing) | | IN SER/PLAS | 03:54 | Health | | | | | | | System - | | | | | | | [facility] | | | | + + + + + + + | ALANINE | 2021-11-12 | [facility] | 12 | u/l | (missing) | | AMINOTRANSFE | 03:54 | Health | | | | | RASE (SGPT) | | System - | | | | | (U/L) IN | | [facility] | | | | | SER/PLAS | | | | | | + + + + + + + | ALANINE | 2021-11-12 | [facility] | 12 | u/l | (missing) | | AMINOTRANSFE | 03:54 | Health | | | | | RASE (SGPT) | | System - | | | | | (U/L) IN | | [facility] | | | | | SER/PLAS | | | | | | + + + + + + + | SQUAMOUS | 2021-11-12 | [facility] | 14 | /hpf | (missing) | | EPITHELIAL | 03:54 | Health | | | | | CELLS | | System - | | | | | (#/HPF) IN | | [facility] | | | | | URINE | | | | | | | SEDIMENT | | | | | | + + + + + + + | SQUAMOUS | 2021-11-12 | [facility] | 14 | /hpf | (missing) | | EPITHELIAL | 03:54 | Health | | | | | CELLS | | System - | | | | | (#/HPF) IN | | [facility] | | | | | URINE | | | | | | | SEDIMENT | | | | | | + + + + + + + | SODIUM | 2021-11-12 | [facility] | 140 | mmol/l | (missing) | | (MMOL/L) IN | 03:54 | Health | | | | | SER/PLAS | | System - | | | | | | | [facility] | | | | + + + + + + + | SODIUM | 2021-11-12 | [facility] | 140 | mmol/l | (missing) | | (MMOL/L) IN | 03:54 | Health | | | | | SER/PLAS | | System - | | | | | | | [facility] | | | | + + + + + + + | HEMOGLOBIN | 2021-11-12 | [facility] | 2 | (missing) | (missing) | | PRESENCE IN | 03:54 | Health | | | | | URINE | | System - | | | | | | | [facility] | | | | + + + + + + + | HEMOGLOBIN | 2021-11-12 | [facility] | 2 | (missing) | (missing) | | PRESENCE IN | 03:54 | Health | | | | | URINE | | System - | | | | | | | [facility] | | | | + + + + + + + | BACTERIA | 2021-11-12 | [facility] | 2 | /hpf | (missing) | | (#/HPF) IN | 03:54 | Health | | | | | URINE | | System - | | | | | | | [facility] | | | | + + + + + + + | BACTERIA | 2021-11-12 | [facility] | 2 | /hpf | (missing) | | (#/HPF) IN | 03:54 | Health | | | | | URINE | | System - | | | | | | | [facility] | | | | + + + + + + + | CARBON | 2021-11-12 | [facility] | 22 | mmol/l | (missing) | | DIOXIDE | 03:54 | Health | | | | | (CO2), TOTAL | | System - | | | | | (MMOL/L) IN | | [facility] | | | | | SER/PLAS | | | | | | + + + + + + + | CARBON | 2021-11-12 | [facility] | 22 | mmol/l | (missing) | | DIOXIDE | 03:54 | Health | | | | | (CO2), TOTAL | | System - | | | | | (MMOL/L) IN | | [facility] | | | | | SER/PLAS | | | | | | + + + + + + + | ASPARTATE | 2021-11-12 | [facility] | 25 | u/l | (missing) | | AMINOTRANSFE | 03:54 | Health | | | | | RASE (SGOT) | | System - | | | | | (U/L) IN | | [facility] | | | | | SER/PLAS | | | | | | + + + + + + + | ASPARTATE | 2021-11-12 | [facility] | 25 | u/l | (missing) | | AMINOTRANSFE | 03:54 | Health | | | | | RASE (SGOT) | | System - | | | | | (U/L) IN | | [facility] | | | | | SER/PLAS | | | | | | + + + + + + + | POTASSIUM | 2021-11-12 | [facility] | 3.8 | mmol/l | (missing) | | (MMOL/L) IN | 03:54 | Health | | | | | SER/PLAS | | System - | | | | | | | [facility] | | | | + + + + + + + | POTASSIUM | 2021-11-12 | [facility] | 3.8 | mmol/l | (missing) | | (MMOL/L) IN | 03:54 | Health | | | | | SER/PLAS | | System - | | | | | | | [facility] | | | | + + + + + + + | CALCIUM | 2021-11-12 | [facility] | 4 | /hpf | (missing) | | OXALATE | 03:54 | Health | | | | | CRYSTALS | | System - | | | | | (#/HPF) IN | | [facility] | | | | | URINE | | | | | | + + + + + + + | CALCIUM | 2021-11-12 | [facility] | 4 | /hpf | (missing) | | OXALATE | 03:54 | Health | | | | | CRYSTALS | | System - | | | | | (#/HPF) IN | | [facility] | | | | | URINE | | | | | | + + + + + + + | ALBUMIN | 2021-11-12 | [facility] | 4.2 | g/dl | (missing) | | (G/DL) IN | 03:54 | Health | | | | | SER/PLAS | | System - | | | | | | | [facility] | | | | + + + + + + + | ALBUMIN | 2021-11-12 | [facility] | 4.2 | g/dl | (missing) | | (G/DL) IN | 03:54 | Health | | | | | SER/PLAS | | System - | | | | | | | [facility] | | | | + + + + + + + | RBC (#/HPF) | 2021-11-12 | [facility] | 6 | /hpf | (missing) | | IN URINE | 03:54 | Health | | | | | SEDIMENT | | System - | | | | | | | [facility] | | | | + + + + + + + | RBC (#/HPF) | 2021-11-12 | [facility] | 6 | /hpf | (missing) | | IN URINE | 03:54 | Health | | | | | SEDIMENT | | System - | | | | | | | [facility] | | | | + + + + + + + | PH OF URINE | 2021-11-12 | [facility] | 6.0 | (missing) | (missing) | | | 03:54 | Health | | | | | | | System - | | | | | | | [facility] | | | | + + + + + + + | PH OF URINE | 2021-11-12 | [facility] | 6.0 | (missing) | (missing) | | | 03:54 | Health | | | | | | | System - | | | | | | | [facility] | | | | + + + + + + + | PROTEIN | 2021-11-12 | [facility] | 6.7 | g/dl | (missing) | | (G/DL) IN | 03:54 | Health | | | | | SER/PLAS | | System - | | | | | | | [facility] | | | | + + + + + + + | PROTEIN | 2021-11-12 | [facility] | 6.7 | g/dl | (missing) | | (G/DL) IN | 03:54 | Health | | | | | SER/PLAS | | System - | | | | | | | [facility] | | | | + + + + + + + | ALKALINE | 2021-11-12 | [facility] | 69 | u/l | (missing) | | PHOSPHATASE | 03:54 | Health | | | | | (U/L) IN | | System - | | | | | SER/PLAS | | [facility] | | | | + + + + + + + | ALKALINE | 2021-11-12 | [facility] | 69 | u/l | (missing) | | PHOSPHATASE | 03:54 | Health | | | | | (U/L) IN | | System - | | | | | SER/PLAS | | [facility] | | | | + + + + + + + | BLOOD UREA | 2021-11-12 | [facility] | 9 | mg/dl | (missing) | | NITROGEN | 03:54 | Health | | | | | (BUN) | | System - | | | | | (MG/DL) IN | | [facility] | | | | | SER/PLAS | | | | | | + + + + + + + | BLOOD UREA | 2021-11-12 | [facility] | 9 | mg/dl | (missing) | | NITROGEN | 03:54 | Health | | | | | (BUN) | | System - | | | | | (MG/DL) IN | | [facility] | | | | | SER/PLAS | | | | | | + + + + + + + | CALCIUM | 2021-11-12 | [facility] | 9.0 | mg/dl | (missing) | | (MG/DL) IN | 03:54 | Health | | | | | SER/PLAS | | System - | | | | | | | [facility] | | | | + + + + + + + | CALCIUM | 2021-11-12 | [facility] | 9.0 | mg/dl | (missing) | | (MG/DL) IN | 03:54 | Health | | | | | SER/PLAS | | System - | | | | | | | [facility] | | | | + + + + + + + | GLUCOSE, | 2021-11-12 | [facility] | 96 | mg/dl | (missing) | | RANDOM | 03:54 | Health | | | | | (MG/DL) IN | | System - | | | | | SER/PLAS | | [facility] | | | | + + + + + + + | GLUCOSE, | 2021-11-12 | [facility] | 96 | mg/dl | (missing) | | RANDOM | 03:54 | Health | | | | | (MG/DL) IN | | System - | | | | | SER/PLAS | | [facility] | | | | + + + + + + + | CLARITY OF | 2021-11-12 | [facility] | Hazy | (missing) | (missing) | | URINE | 03:54 | Health | | | | | | | System - | | | | | | | [facility] | | | | + + + + + + + | CLARITY OF | 2021-11-12 | [facility] | Hazy | (missing) | (missing) | | URINE | 03:54 | Health | | | | | | | System - | | | | | | | [facility] | | | | + + + + + + + | | 2021-11-12 | [facility] | Negative | (missing) | (missing) | | BARBITURATES | 03:54 | Health | | | | | PRESENCE IN | | System - | | | | | URINE BY | | [facility] | | | | | SCREEN | | | | | | | METHOD | | | | | | + + + + + + + | | 2021-11-12 | [facility] | Negative | (missing) | (missing) | | BENZODIAZEPI | 03:54 | Health | | | | | SURYA | | System - | | | | | (PRESENCE) | | [facility] | | | | | IN URINE BY | | | | | | | SCREEN | | | | | | | METHOD | | | | | | + + + + + + + | BILIRUBIN, | 2021-11-12 | [facility] | Negative | (missing) | (missing) | | TOTAL | 03:54 | Health | | | | | PRESENCE IN | | System - | | | | | URINE | | [facility] | | | | + + + + + + + | COCAINE | 2021-11-12 | [facility] | Negative | (missing) | (missing) | | (PRESENCE) | 03:54 | Health | | | | | IN URINE BY | | System - | | | | | SCREEN | | [facility] | | | | | METHOD | | | | | | + + + + + + + | GLUCOSE IN | 2021-11-12 | [facility] | Negative | (missing) | (missing) | | URINE | 03:54 | Health | | | | | | | System - | | | | | | | [facility] | | | | + + + + + + + | METHADONE | 2021-11-12 | [facility] | Negative | (missing) | (missing) | | (PRESENCE) | 03:54 | Health | | | | | IN URINE BY | | System - | | | | | SCREEN | | [facility] | | | | | METHOD | | | | | | + + + + + + + | NITRITE | 2021-11-12 | [facility] | Negative | (missing) | (missing) | | PRESENCE IN | 03:54 | Health | | | | | URINE | | System - | | | | | | | [facility] | | | | + + + + + + + | OPIATES | 2021-11-12 | [facility] | Negative | (missing) | (missing) | | (PRESENCE) | 03:54 | Health | | | | | IN URINE BY | | System - | | | | | SCREEN | | [facility] | | | | | METHOD | | | | | | + + + + + + + | OXYCODONE | 2021-11-12 | [facility] | Negative | (missing) | (missing) | | (PRESENCE) | 03:54 | Health | | | | | IN URINE BY | | System - | | | | | SCREEN | | [facility] | | | | | METHOD | | | | | | + + + + + + + | | 2021-11-12 | [facility] | Negative | (missing) | (missing) | | PHENCYCLIDIN | 03:54 | Health | | | | | E (PRESENCE) | | System - | | | | | IN URINE BY | | [facility] | | | | | SCREEN | | | | | | | METHOD | | | | | | + + + + + + + | THC | 2021-11-12 | [facility] | Negative | (missing) | (missing) | | (CANNABINOID | 03:54 | Health | | | | | ) IN URINE | | System - | | | | | BY SCREEN | | [facility] | | | | | METHOD | | | | | | + + + + + + + | TRICYCLIC | 2021-11-12 | [facility] | Negative | (missing) | (missing) | | ANTIDEPRESSA | 03:54 | Health | | | | | NTS | | System - | | | | | (PRESENCE) | | [facility] | | | | | IN URINE | | | | | | + + + + + + + | | 2021-11-12 | [facility] | Negative | (missing) | (missing) | | PHENCYCLIDIN | 03:54 | Health | | | | | E (PRESENCE) | | System - | | | | | IN URINE BY | | [facility] | | | | | SCREEN | | | | | | | METHOD | | | | | | + + + + + + + | THC | 2021-11-12 | [facility] | Negative | (missing) | (missing) | | (CANNABINOID | 03:54 | Health | | | | | ) IN URINE | | System - | | | | | BY SCREEN | | [facility] | | | | | METHOD | | | | | | + + + + + + + | OPIATES | 2021-11-12 | [facility] | Negative | (missing) | (missing) | | (PRESENCE) | 03:54 | Health | | | | | IN URINE BY | | System - | | | | | SCREEN | | [facility] | | | | | METHOD | | | | | | + + + + + + + | TRICYCLIC | 2021-11-12 | [facility] | Negative | (missing) | (missing) | | ANTIDEPRESSA | 03:54 | Health | | | | | NTS | | System - | | | | | (PRESENCE) | | [facility] | | | | | IN URINE | | | | | | + + + + + + + | OXYCODONE | 2021-11-12 | [facility] | Negative | (missing) | (missing) | | (PRESENCE) | 03:54 | Health | | | | | IN URINE BY | | System - | | | | | SCREEN | | [facility] | | | | | METHOD | | | | | | + + + + + + + | BILIRUBIN, | 2021-11-12 | [facility] | Negative | (missing) | (missing) | | TOTAL | 03:54 | Health | | | | | PRESENCE IN | | System - | | | | | URINE | | [facility] | | | | + + + + + + + | BHCG QUAL | 2021-11-12 | [facility] | Negative | (missing) | (missing) | | (CHORIOGONAD | 03:54 | Health | | | | | OTROPIN) IN | | System - | | | | | SER/PLAS | | [facility] | | | | + + + + + + + | GLUCOSE IN | 2021-11-12 | [facility] | Negative | (missing) | (missing) | | URINE | 03:54 | Health | | | | | | | System - | | | | | | | [facility] | | | | + + + + + + + | COCAINE | 2021-11-12 | [facility] | Negative | (missing) | (missing) | | (PRESENCE) | 03:54 | Health | | | | | IN URINE BY | | System - | | | | | SCREEN | | [facility] | | | | | METHOD | | | | | | + + + + + + + | NITRITE | 2021-11-12 | [facility] | Negative | (missing) | (missing) | | PRESENCE IN | 03:54 | Health | | | | | URINE | | System - | | | | | | | [facility] | | | | + + + + + + + | | 2021-11-12 | [facility] | Negative | (missing) | (missing) | | BARBITURATES | 03:54 | Health | | | | | PRESENCE IN | | System - | | | | | URINE BY | | [facility] | | | | | SCREEN | | | | | | | METHOD | | | | | | + + + + + + + | | 2021-11-12 | [facility] | Negative | (missing) | (missing) | | BENZODIAZEPI | 03:54 | Health | | | | | SURYA | | System - | | | | | (PRESENCE) | | [facility] | | | | | IN URINE BY | | | | | | | SCREEN | | | | | | | METHOD | | | | | | + + + + + + + | METHADONE | 2021-11-12 | [facility] | Negative | (missing) | (missing) | | (PRESENCE) | 03:54 | Health | | | | | IN URINE BY | | System - | | | | | SCREEN | | [facility] | | | | | METHOD | | | | | | + + + + + + + | [facility] QUAL | 2021-11-12 | [facility] | Negative | (missing) | (missing) | | (CHORIOGONAD | 03:54 | Health | | | | | OTROPIN) IN | | System - | | | | | SER/PLAS | | [facility] | | | | + + + + + + + | | 2021-11-12 | [facility] | Normal | mg/dl | (missing) | | UROBILINOGEN | 03:54 | Health | | | | | (MG/DL) IN | | System - | | | | | URINE BY | | [facility] | | | | | TEST STRIP | | | | | | + + + + + + + | | 2021-11-12 | [facility] | Normal | mg/dl | (missing) | | UROBILINOGEN | 03:54 | Health | | | | | (MG/DL) IN | | System - | | | | | URINE BY | | [facility] | | | | | TEST STRIP | | | | | | + + + + + + + | | 2021-11-12 | [facility] | Presumptive | (missing) | (missing) | | METHAMPHETAM | 03:54 | Health | Positive | | | | INE | | System - | | | | | (PRESENCE) | | [facility] | | | | | IN URINE BY | | | | | | | SCREEN | | | | | | | METHOD | | | | | | + + + + + + + | AMPHETAMINE | 2021-11-12 | [facility] | Presumptive | (missing) | (missing) | | (PRESENCE) | 03:54 | Health | Positive | | | | IN URINE BY | | System - | | | | | SCREEN | | [facility] | | | | | METHOD | | | | | | + + + + + + + | | 2021-11-12 | [facility] | Presumptive | (missing) | (missing) | | METHAMPHETAM | 03:54 | Health | Positive | | | | INE | | System - | | | | | (PRESENCE) | | [facility] | | | | | IN URINE BY | | | | | | | SCREEN | | | | | | | METHOD | | | | | | + + + + + + + | AMPHETAMINE | 2021-11-12 | [facility] | Presumptive | (missing) | (missing) | | (PRESENCE) | 03:54 | Health | Positive | | | | IN URINE BY | | System - | | | | | SCREEN | | [facility] | | | | | METHOD | | | | | | + + + + + + + | KETONES IN | 2021-11-12 | [facility] | Trace | (missing) | (missing) | | URINE | 03:54 | Health | | | | | | | System - | | | | | | | [facility] | | | | + + + + + + + | MUCUS | 2021-11-12 | [facility] | Trace | (missing) | (missing) | | (#/HPF) IN | 03:54 | Health | | | | | URINE | | System - | | | | | SEDIMENT | | [facility] | | | | + + + + + + + | PROTEIN IN | 2021-11-12 | [facility] | Trace | (missing) | (missing) | | URINE BY | 03:54 | Health | | | | | TEST STRIP | | System - | | | | | | | [facility] | | | | + + + + + + + | MUCUS | 2021-11-12 | [facility] | Trace | (missing) | (missing) | | (#/HPF) IN | 03:54 | Health | | | | | URINE | | System - | | | | | SEDIMENT | | [facility] | | | | + + + + + + + | KETONES IN | 2021-11-12 | [facility] | Trace | (missing) | (missing) | | URINE | 03:54 | Health | | | | | | | System - | | | | | | | [facility] | | | | + + + + + + + | PROTEIN IN | 2021-11-12 | [facility] | Trace | (missing) | (missing) | | URINE BY | 03:54 | Health | | | | | TEST STRIP | | System - | | | | | | | [facility] | | | | + + + + + + + | COLOR OF | 2021-11-12 | [facility] | Yellow | (missing) | (missing) | | URINE | 03:54 | Health | | | | | | | System - | | | | | | | [facility] | | | | + + + + + + + | COLOR OF | 2021-11-12 | [facility] | Yellow | (missing) | (missing) | | URINE | 03:54 | Health | | | | | | | System - | | | | | | | [facility] | | | | + + + + + + + + + | Result panel 46 | + + + + + + + + + | LEUKOCYTE | 2021-11-12 | [facility] | 1 | (missing) | (missing) | | ESTERASE | 04:26 | Health | | | | | PRESENCE IN | | System - | | | | | URINE BY | | [facility] | | | | | TEST STRIP | | | | | | + + + + + + + | SPECIFIC | 2021-11-12 | [facility] | 1.031 | (missing) | (missing) | | GRAVITY OF | 04:26 | Health | | | | | URINE BY | | System - | | | | | AUTOMATED | | [facility] | | | | | TEST STRIP | | | | | | + + + + + + + | WBC | 2021-11-12 | [facility] | 11 | /hpf | (missing) | | (LEUKOCYTE) | 04: | Health | | | | | (#/HPF) IN | | System - | | | | | URINE | | [facility] | | | | | SEDIMENT | | | | | | + + + + + + + | SQUAMOUS | 2021-11-12 | [facility] | 14 | /hpf | (missing) | | EPITHELIAL | 04:26 | Health | | | | | CELLS | | System - | | | | | (#/HPF) IN | | [facility] | | | | | URINE | | | | | | | SEDIMENT | | | | | | + + + + + + + | HEMOGLOBIN | 2021-11-12 | [facility] | 2 | (missing) | (missing) | | PRESENCE IN | 04:26 | Health | | | | | URINE | | System - | | | | | | | [facility] | | | | + + + + + + + | BACTERIA | 2021-11-12 | [facility] | 2 | /hpf | (missing) | | (#/HPF) IN | 04:26 | Health | | | | | URINE | | System - | | | | | | | [facility] | | | | + + + + + + + | CALCIUM | 2021-11-12 | [facility] | 4 | /hpf | (missing) | | OXALATE | 04:26 | Health | | | | | CRYSTALS | | System - | | | | | (#/HPF) IN | | [facility] | | | | | URINE | | | | | | + + + + + + + | RBC (#/HPF) | 2021-11-12 | [facility] | 6 | /hpf | (missing) | | IN URINE | 04:26 | Health | | | | | SEDIMENT | | System - | | | | | | | [facility] | | | | + + + + + + + | PH OF URINE | 2021-11-12 | [facility] | 6.0 | (missing) | (missing) | | | 04:26 | Health | | | | | | | System - | | | | | | | [facility] | | | | + + + + + + + | CLARITY OF | 2021-11-12 | [facility] | Hazy | (missing) | (missing) | | URINE | 04:26 | Health | | | | | | | System - | | | | | | | [facility] | | | | + + + + + + + | BILIRUBIN, | 2021-11-12 | [facility] | Negative | (missing) | (missing) | | TOTAL | 04:26 | Health | | | | | PRESENCE IN | | System - | | | | | URINE | | [facility] | | | | + + + + + + + | GLUCOSE IN | 2021-11-12 | [facility] | Negative | (missing) | (missing) | | URINE | 04:26 | Health | | | | | | | System - | | | | | | | [facility] | | | | + + + + + + + | NITRITE | 2021-11-12 | [facility] | Negative | (missing) | (missing) | | PRESENCE IN | 04:26 | Health | | | | | URINE | | System - | | | | | | | [facility] | | | | + + + + + + + | URINE | 2021-11-12 | [facility] | Normal | (missing) | (missing) | | CULTURE | 04:26 | Health | urogenital | | | | | | System - | microbiota | | | | | | [facility] | | | | + + + + + + + | URINE | 2021-11-12 | [facility] | Normal | (missing) | (missing) | | CULTURE | 04:26 | Health | urogenital | | | | | | System - | microbiota | | | | | | [facility] | | | | + + + + + + + | | 2021-11-12 | [facility] | Normal | mg/dl | (missing) | | UROBILINOGEN | 04:26 | Health | | | | | (MG/DL) IN | | System - | | | | | URINE BY | | [facility] | | | | | TEST STRIP | | | | | | + + + + + + + | MUCUS | 2021-11-12 | [facility] | Trace | (missing) | (missing) | | (#/HPF) IN | 04:26 | Health | | | | | URINE | | System - | | | | | SEDIMENT | | [facility] | | | | + + + + + + + | KETONES IN | 2021-11-12 | [facility] | Trace | (missing) | (missing) | | URINE | 04:26 | Health | | | | | | | System - | | | | | | | [facility] | | | | + + + + + + + | PROTEIN IN | 2021-11-12 | [facility] | Trace | (missing) | (missing) | | URINE BY | 04:26 | Health | | | | | TEST STRIP | | System - | | | | | | | [facility] | | | | + + + + + + + | COLOR OF | 2021-11-12 | [facility] | Yellow | (missing) | (missing) | | URINE | 04:26 | Health | | | | | | | System - | | | | | | | [facility] | | | | + + + + + + + + + | Result panel 47 | + + + + + +--------+---------+ + | NRBC/100 | 2021-11-13 | [facility] | 0.0 | % | (missing) | | WBCS BY | 06: | Health | | | | | AUTOMATED | | System - | | | | | COUNT | | [facility] | | | | + + + +--------+---------+ + | NRBC/100 | 2021-11-13 | [facility] | 0.0 | % | (missing) | | WBCS BY | 06:26 | Health | | | | | AUTOMATED | | System - | | | | | COUNT | | [facility] | | | | + + + +--------+---------+ + | | 2021-11-13 | [facility] | 0.0 | k/mcl | (missing) | | NRBC(10*3/UL | 06:26 | Health | | | | | ) IN BLOOD | | System - | | | | | BY AUTOMATED | | [facility] | | | | | COUNT | | | | | | + + + +--------+---------+ + | | 2021-11-13 | [facility] | 0.0 | k/mcl | (missing) | | NRBC(10*3/UL | 06:26 | Health | | | | | ) IN BLOOD | | System - | | | | | BY AUTOMATED | | [facility] | | | | | COUNT | | | | | | + + + +--------+---------+ + | IMMATURE | 2021-11-13 | [facility] | 0.05 | k/mcl | (missing) | | GRANULOCYTE | 06:26 | Health | | | | | (ABS) | | System - | | | | | | | [facility] | | | | + + + +--------+---------+ + | IMMATURE | 2021-11-13 | [facility] | 0.05 | k/mcl | (missing) | | GRANULOCYTE | 06:26 | Health | | | | | (ABS) | | System - | | | | | | | [facility] | | | | + + + +--------+---------+ + | BASOPHILS | 2021-11-13 | [facility] | 0.1 | k/mcl | (missing) | | (10*3/UL) IN | 06: | Health | | | | | BLOOD BY | | System - | | | | | AUTOMATED | | [facility] | | | | | COUNT | | | | | | + + + +--------+---------+ + | EOSINOPHILS | 2021-11-13 | [facility] | 0.1 | k/mcl | (missing) | | (10*3/UL) | 06:26 | Health | | | | | IN BLOOD BY | | System - | | | | | AUTOMATED | | [facility] | | | | | COUNT | | | | | | + + + +--------+---------+ + | BASOPHILS | 2021-11-13 | [facility] | 0.1 | k/mcl | (missing) | | (10*3/UL) IN | 06:26 | Health | | | | | BLOOD BY | | System - | | | | | AUTOMATED | | [facility] | | | | | COUNT | | | | | | + + + +--------+---------+ + | EOSINOPHILS | 2021-11-13 | [facility] | 0.1 | k/mcl | (missing) | | (10*3/UL) | 06: | Health | | | | | IN BLOOD BY | | System - | | | | | AUTOMATED | | [facility] | | | | | COUNT | | | | | | + + + +--------+---------+ + | IMMATURE | 2021-11-13 | [facility] | 0.5 | % | (missing) | | GRANULOCYTE | 06: | Health | | | | | % (AUTO) | | System - | | | | | | | [facility] | | | | + + + +--------+---------+ + | | 2021-11-13 | [facility] | 0.5 | % | (missing) | | BASOPHILS/10 | 06:26 | Health | | | | | 0 LEUKOCYTES | | System - | | | | | IN BLOOD BY | | [facility] | | | | | AUTOMATED | | | | | | | COUNT | | | | | | + + + +--------+---------+ + | | 2021-11-13 | [facility] | 0.5 | % | (missing) | | BASOPHILS/10 | 06:26 | Health | | | | | 0 LEUKOCYTES | | System - | | | | | IN BLOOD BY | | [facility] | | | | | AUTOMATED | | | | | | | COUNT | | | | | | + + + +--------+---------+ + | IMMATURE | 2021-11-13 | [facility] | 0.5 | % | (missing) | | GRANULOCYTE | 06:26 | Health | | | | | % (AUTO) | | System - | | | | | | | [facility] | | | | + + + +--------+---------+ + | MONOCYTES | 2021-11-13 | [facility] | 0.6 | k/mcl | (missing) | | (10*3/UL) IN | 06:26 | Health | | | | | BLOOD BY | | System - | | | | | AUTOMATED | | [facility] | | | | | COUNT | | | | | | + + + +--------+---------+ + | MONOCYTES | 2021-11-13 | [facility] | 0.6 | k/mcl | (missing) | | (10*3/UL) IN | 06:26 | Health | | | | | BLOOD BY | | System - | | | | | AUTOMATED | | [facility] | | | | | COUNT | | | | | | + + + +--------+---------+ + | | 2021-11-13 | [facility] | 1.2 | % | (missing) | | EOSINOPHILS/ | 06: | Health | | | | | 100 | | System - | | | | | LEUKOCYTES | | [facility] | | | | | IN BLOOD BY | | | | | | | AUTOMATED | | | | | | | COUNT | | | | | | + + + +--------+---------+ + | | 2021-11-13 | [facility] | 1.2 | % | (missing) | | EOSINOPHILS/ | 06:26 | Health | | | | | 100 | | System - | | | | | LEUKOCYTES | | [facility] | | | | | IN BLOOD BY | | | | | | | AUTOMATED | | | | | | | COUNT | | | | | | + + + +--------+---------+ + | | 2021-11-13 | [facility] | 10.3 | k/mcl | (missing) | | LEUKOCYTES(1 | 06:26 | Health | | | | | 0*3/UL) IN | | System - | | | | | BLOOD BY | | [facility] | | | | | AUTOMATED | | | | | | | COUNT | | | | | | + + + +--------+---------+ + | | 2021-11-13 | [facility] | 10.3 | k/mcl | (missing) | | LEUKOCYTES(1 | 06:26 | Health | | | | | 0*3/UL) IN | | System - | | | | | BLOOD BY | | [facility] | | | | | AUTOMATED | | | | | | | COUNT | | | | | | + + + +--------+---------+ + | ERYTHROCYTE | 2021-11-13 | [facility] | 12.7 | % | (missing) | | | 06:26 | Health | | | | | DISTRIBUTION | | System - | | | | | WIDTH | | [facility] | | | | | (RATIO) BY | | | | | | | AUTOMATED | | | | | | | COUNT | | | | | | + + + +--------+---------+ + | ERYTHROCYTE | 2021-11-13 | [facility] | 12.7 | % | (missing) | | | 06:26 | Health | | | | | DISTRIBUTION | | System - | | | | | WIDTH | | [facility] | | | | | (RATIO) BY | | | | | | | AUTOMATED | | | | | | | COUNT | | | | | | + + + +--------+---------+ + | HEMOGLOBIN | 2021-11-13 | [facility] | 14.2 | g/dl | (missing) | | (G/DL) IN | : | Health | | | | | BLOOD | | System - | | | | | | | [facility] | | | | + + + +--------+---------+ + | HEMOGLOBIN | 2021-11-13 | [facility] | 14.2 | g/dl | (missing) | | (G/DL) IN | : | Health | | | | | BLOOD | | System - | | | | | | | [facility] | | | | + + + +--------+---------+ + | LYMPHOCYTES | 2021-11-13 | [facility] | 3.8 | k/mcl | (missing) | | (10*3/UL) | 06:26 | Health | | | | | IN BLOOD BY | | System - | | | | | AUTOMATED | | [facility] | | | | | COUNT | | | | | | + + + +--------+---------+ + | LYMPHOCYTES | 2021-11-13 | [facility] | 3.8 | k/mcl | (missing) | | (10*3/UL) | 06:26 | Health | | | | | IN BLOOD BY | | System - | | | | | AUTOMATED | | [facility] | | | | | COUNT | | | | | | + + + +--------+---------+ + | ERYTHROCYTE | 2021-11-13 | [facility] | 30.8 | pg | (missing) | | MEAN | 06:26 | Health | | | | | CORPUSCULAR | | System - | | | | | HEMOGLOBIN | | [facility] | | | | | (PG) BY | | | | | | | AUTOMATED | | | | | | | COUNT | | | | | | + + + +--------+---------+ + | ERYTHROCYTE | 2021-11-13 | [facility] | 30.8 | pg | (missing) | | MEAN | 06:26 | Health | | | | | CORPUSCULAR | | System - | | | | | HEMOGLOBIN | | [facility] | | | | | (PG) BY | | | | | | | AUTOMATED | | | | | | | COUNT | | | | | | + + + +--------+---------+ + | ERYTHROCYTE | 2021-11-13 | [facility] | 34.2 | g/dl | (missing) | | MEAN | 06:26 | Health | | | | | CORPUSCULAR | | System - | | | | | HEMOGLOBIN | | [facility] | | | | | CONCENTRATIO | | | | | | | N (G/DL) BY | | | | | | | AUTOMATED | | | | | | + + + +--------+---------+ + | ERYTHROCYTE | 2021-11-13 | [facility] | 34.2 | g/dl | (missing) | | MEAN | 06:26 | Health | | | | | CORPUSCULAR | | System - | | | | | HEMOGLOBIN | | [facility] | | | | | CONCENTRATIO | | | | | | | N (G/DL) BY | | | | | | | AUTOMATED | | | | | | + + + +--------+---------+ + | | 2021-11-13 | [facility] | 37.2 | % | (missing) | | LYMPHOCYTES/ | 06:26 | Health | | | | | 100 | | System - | | | | | LEUKOCYTES | | [facility] | | | | | IN BLOOD BY | | | | | | | AUTOMATED | | | | | | | COUNT | | | | | | + + + +--------+---------+ + | | 2021-11-13 | [facility] | 37.2 | % | (missing) | | LYMPHOCYTES/ | 06:26 | Health | | | | | 100 | | System - | | | | | LEUKOCYTES | | [facility] | | | | | IN BLOOD BY | | | | | | | AUTOMATED | | | | | | | COUNT | | | | | | + + + +--------+---------+ + | PLATELETS | 2021-11-13 | [facility] | 377 | k/mcl | (missing) | | (10*3/UL) IN | 06:26 | Health | | | | | BLOOD | | System - | | | | | AUTOMATED | | [facility] | | | | | COUNT | | | | | | + + + +--------+---------+ + | PLATELETS | 2021-11-13 | [facility] | 377 | k/mcl | (missing) | | (10*3/UL) IN | 06:26 | Health | | | | | BLOOD | | System - | | | | | AUTOMATED | | [facility] | | | | | COUNT | | | | | | + + + +--------+---------+ + | | 2021-11-13 | [facility] | 4.61 | m/mcl | (missing) | | ERYTHROCYTES | 06:26 | Health | | | | | (10*6/UL) | | System - | | | | | IN BLOOD BY | | [facility] | | | | | AUTOMATED | | | | | | | COUNT | | | | | | + + + +--------+---------+ + | | 2021-11-13 | [facility] | 4.61 | m/mcl | (missing) | | ERYTHROCYTES | 06:26 | Health | | | | | (10*6/UL) | | System - | | | | | IN BLOOD BY | | [facility] | | | | | AUTOMATED | | | | | | | COUNT | | | | | | + + + +--------+---------+ + | HEMATOCRIT | 2021-11-13 | [facility] | 41.5 | % | (missing) | | (%) IN BLOOD | 06:26 | Health | | | | | BY | | System - | | | | | AUTOMATED | | [facility] | | | | | COUNT | | | | | | + + + +--------+---------+ + | HEMATOCRIT | 2021-11-13 | [facility] | 41.5 | % | (missing) | | (%) IN BLOOD | 06:26 | Health | | | | | BY | | System - | | | | | AUTOMATED | | [facility] | | | | | COUNT | | | | | | + + + +--------+---------+ + | | 2021-11-13 | [facility] | 5.5 | % | (missing) | | MONOCYTES/10 | 06:26 | Health | | | | | 0 LEUKOCYTES | | System - | | | | | IN BLOOD BY | | [facility] | | | | | AUTOMATED | | | | | | | COUNT | | | | | | + + + +--------+---------+ + | | 2021-11-13 | [facility] | 5.5 | % | (missing) | | MONOCYTES/10 | 06:26 | Health | | | | | 0 LEUKOCYTES | | System - | | | | | IN BLOOD BY | | [facility] | | | | | AUTOMATED | | | | | | | COUNT | | | | | | + + + +--------+---------+ + | NEUTROPHILS | 2021-11-13 | [facility] | 5.7 | k/mcl | (missing) | | (10*3/UL) | 06:26 | Health | | | | | IN BLOOD BY | | System - | | | | | AUTOMATED | | [facility] | | | | | COUNT | | | | | | + + + +--------+---------+ + | NEUTROPHILS | 2021-11-13 | [facility] | 5.7 | k/mcl | (missing) | | (10*3/UL) | 06:26 | Health | | | | | IN BLOOD BY | | System - | | | | | AUTOMATED | | [facility] | | | | | COUNT | | | | | | + + + +--------+---------+ + | | 2021-11-13 | [facility] | 55.1 | % | (missing) | | NEUTROPHILS/ | 06:26 | Health | | | | | 100 | | System - | | | | | LEUKOCYTES | | [facility] | | | | | IN BLOOD BY | | | | | | | AUTOMATED | | | | | | | COUNT | | | | | | + + + +--------+---------+ + | | 2021-11-13 | [facility] | 55.1 | % | (missing) | | NEUTROPHILS/ | 06:26 | Health | | | | | 100 | | System - | | | | | LEUKOCYTES | | [facility] | | | | | IN BLOOD BY | | | | | | | AUTOMATED | | | | | | | COUNT | | | | | | + + + +--------+---------+ + | PLATELET | 2021-11-13 | [facility] | 9.1 | fl | (missing) | | MEAN VOLUME | 06:26 | Health | | | | | (FL) IN | | System - | | | | | BLOOD BY | | [facility] | | | | | AUTOMATED | | | | | | | COUNT | | | | | | + + + +--------+---------+ + | PLATELET | 2021-11-13 | [facility] | 9.1 | fl | (missing) | | MEAN VOLUME | 06:26 | Health | | | | | (FL) IN | | System - | | | | | BLOOD BY | | [facility] | | | | | AUTOMATED | | | | | | | COUNT | | | | | | + + + +--------+---------+ + | ERYTHROCYTE | 2021-11-13 | [facility] | 90.0 | fl | (missing) | | MEAN | 06:26 | Health | | | | | CORPUSCULAR | | System - | | | | | VOLUME (FL) | | [facility] | | | | | BY AUTOMATED | | | | | | | COUNT | | | | | | + + + +--------+---------+ + | ERYTHROCYTE | 2021-11-13 | [facility] | 90.0 | fl | (missing) | | MEAN | 06:26 | Health | | | | | CORPUSCULAR | | System - | | | | | VOLUME (FL) | | [facility] | | | | | BY AUTOMATED | | | | | | | COUNT | | | | | | + + + +--------+---------+ + + + | Result panel 48 | + + + + + + + + + | EGFR | 2021-11-13 | [facility] | > | | (missing) | | (GLOMERULAR | 06:27 | Health | | ml/min/1.73m | | | FILTRATION | | System - | | ? | | | RATE) | | [facility] | | | | | ML/MIN/1.73 | | | | | | | SQ M. | | | | | | + + + + + + + | EGFR | 2021-11-13 | [facility] | > | | (missing) | | (GLOMERULAR | 06:27 | Health | | ml/min/1.73m | | | FILTRATION | | System - | | ? | | | RATE) | | [facility] | | | | | ML/MIN/1.73 | | | | | | | SQ M. | | | | | | + + + + + + + | ALCOHOL | 2021-11-13 | [facility] | < | g/dl | (missing) | | (G/DL) IN | 06:27 | Health | | | | | SER/PLAS | | System - | | | | | | | [facility] | | | | + + + + + + + | ALCOHOL | 2021-11-13 | [facility] | < | g/dl | (missing) | | (G/DL) IN | 06:27 | Health | | | | | SER/PLAS | | System - | | | | | | | [facility] | | | | + + + + + + + | | 2021-11-13 | [facility] | < | mcg/ml | (missing) | | ACETAMINOPHE | 06:27 | Health | | | | | N (UG/ML) IN | | System - | | | | | SER/PLAS | | [facility] | | | | + + + + + + + | | 2021-11-13 | [facility] | < | mcg/ml | (missing) | | ACETAMINOPHE | 06:27 | Health | | | | | N (UG/ML) IN | | System - | | | | | SER/PLAS | | [facility] | | | | + + + + + + + | SALICYLATE | 2021-11-13 | [facility] | < | mg/dl | (missing) | | (MG/DL) IN | 06: | Health | | | | | SER/PLAS | | System - | | | | | | | [facility] | | | | + + + + + + + | BILIRUBIN | 2021-11-13 | [facility] | < | mg/dl | (missing) | | TOTAL | 06:27 | Health | | | | | (MG/DL) IN | | System - | | | | | SER/PLAS | | [facility] | | | | + + + + + + + | BILIRUBIN | 2021-11-13 | [facility] | < | mg/dl | (missing) | | TOTAL | : | Health | | | | | (MG/DL) IN | | System - | | | | | SER/PLAS | | [facility] | | | | + + + + + + + | SALICYLATE | 2021-11-13 | [facility] | < | mg/dl | (missing) | | (MG/DL) IN | : | Health | | | | | SER/PLAS | | System - | | | | | | | [facility] | | | | + + + + + + + | CREATININE | 2021-11-13 | [facility] | 0.8 | mg/dl | (missing) | | (MG/DL) IN | | Health | | | | | SER/PLAS | | System - | | | | | | | [facility] | | | | + + + + + + + | CREATININE | 2021-11-13 | [facility] | 0.8 | mg/dl | (missing) | | (MG/DL) IN | 06:27 | Health | | | | | SER/PLAS | | System - | | | | | | | [facility] | | | | + + + + + + + | GLUCOSE, | 2021-11-13 | [facility] | 103 | mg/dl | (missing) | | RANDOM | 06:27 | Health | | | | | (MG/DL) IN | | System - | | | | | SER/PLAS | | [facility] | | | | + + + + + + + | GLUCOSE, | 2021-11-13 | [facility] | 103 | mg/dl | (missing) | | RANDOM | 06:27 | Health | | | | | (MG/DL) IN | | System - | | | | | SER/PLAS | | [facility] | | | | + + + + + + + | CHLORIDE | 2021-11-13 | [facility] | 108 | mmol/l | (missing) | | (MMOL/L) IN | : | Health | | | | | SER/PLAS | | System - | | | | | | | [facility] | | | | + + + + + + + | CHLORIDE | 2021-11-13 | [facility] | 108 | mmol/l | (missing) | | (MMOL/L) IN | :27 | Health | | | | | SER/PLAS | | System - | | | | | | | [facility] | | | | + + + + + + + | BLOOD UREA | 2021-11-13 | [facility] | 12 | mg/dl | (missing) | | NITROGEN | : | Health | | | | | (BUN) | | System - | | | | | (MG/DL) IN | | [facility] | | | | | SER/PLAS | | | | | | + + + + + + + | BLOOD UREA | 2021-11-13 | [facility] | 12 | mg/dl | (missing) | | NITROGEN | | Health | | | | | (BUN) | | System - | | | | | (MG/DL) IN | | [facility] | | | | | SER/PLAS | | | | | | + + + + + + + | ALANINE | 2021-11-13 | [facility] | 14 | u/l | (missing) | | AMINOTRANSFE | 06:27 | Health | | | | | RASE (SGPT) | | System - | | | | | (U/L) IN | | [facility] | | | | | SER/PLAS | | | | | | + + + + + + + | ALANINE | 2021-11-13 | [facility] | 14 | u/l | (missing) | | AMINOTRANSFE | 06:27 | Health | | | | | RASE (SGPT) | | System - | | | | | (U/L) IN | | [facility] | | | | | SER/PLAS | | | | | | + + + + + + + | ANION GAP | 2021-11-13 | [facility] | 14.0 | mmol/l | (missing) | | IN SER/PLAS | 06:27 | Health | | | | | | | System - | | | | | | | [facility] | | | | + + + + + + + | ANION GAP | 2021-11-13 | [facility] | 14.0 | mmol/l | (missing) | | IN SER/PLAS | 06: | Health | | | | | | | System - | | | | | | | [facility] | | | | + + + + + + + | SODIUM | 2021-11-13 | [facility] | 141 | mmol/l | (missing) | | (MMOL/L) IN | 06:27 | Health | | | | | SER/PLAS | | System - | | | | | | | [facility] | | | | + + + + + + + | SODIUM | 2021-11-13 | [facility] | 141 | mmol/l | (missing) | | (MMOL/L) IN | 06:27 | Health | | | | | SER/PLAS | | System - | | | | | | | [facility] | | | | + + + + + + + | CARBON | 2021-11-13 | [facility] | 19 | mmol/l | (missing) | | DIOXIDE | 06:27 | Health | | | | | (CO2), TOTAL | | System - | | | | | (MMOL/L) IN | | [facility] | | | | | SER/PLAS | | | | | | + + + + + + + | CARBON | 2021-11-13 | [facility] | 19 | mmol/l | (missing) | | DIOXIDE | 06:27 | Health | | | | | (CO2), TOTAL | | System - | | | | | (MMOL/L) IN | | [facility] | | | | | SER/PLAS | | | | | | + + + + + + + | ASPARTATE | 2021-11-13 | [facility] | 25 | u/l | (missing) | | AMINOTRANSFE | 06:27 | Health | | | | | RASE (SGOT) | | System - | | | | | (U/L) IN | | [facility] | | | | | SER/PLAS | | | | | | + + + + + + + | ASPARTATE | 2021-11-13 | [facility] | 25 | u/l | (missing) | | AMINOTRANSFE | 06:27 | Health | | | | | RASE (SGOT) | | System - | | | | | (U/L) IN | | [facility] | | | | | SER/PLAS | | | | | | + + + + + + + | POTASSIUM | 2021-11-13 | [facility] | 4.1 | mmol/l | (missing) | | (MMOL/L) IN | 06:27 | Health | | | | | SER/PLAS | | System - | | | | | | | [facility] | | | | + + + + + + + | POTASSIUM | 2021-11-13 | [facility] | 4.1 | mmol/l | (missing) | | (MMOL/L) IN | 06:27 | Health | | | | | SER/PLAS | | System - | | | | | | | [facility] | | | | + + + + + + + | ALBUMIN | 2021-11-13 | [facility] | 4.6 | g/dl | (missing) | | (G/DL) IN | | Health | | | | | SER/PLAS | | System - | | | | | | | [facility] | | | | + + + + + + + | ALBUMIN | 2021-11-13 | [facility] | 4.6 | g/dl | (missing) | | (G/DL) IN | | Health | | | | | SER/PLAS | | System - | | | | | | | [facility] | | | | + + + + + + + | TSH | 2021-11-13 | [facility] | 4.61 | mciu/ml | (missing) | | (THYROTROPIN | | Health | | | | | ) (UIU/ML) | | System - | | | | | IN SER/PLAS | | [facility] | | | | + + + + + + + | TSH | 2021-11-13 | [facility] | 4.61 | mciu/ml | (missing) | | (THYROTROPIN | | Health | | | | | ) (UIU/ML) | | System - | | | | | IN SER/PLAS | | [facility] | | | | + + + + + + + | ALKALINE | 2021-11-13 | [facility] | 69 | u/l | (missing) | | PHOSPHATASE | : | Health | | | | | (U/L) IN | | System - | | | | | SER/PLAS | | [facility] | | | | + + + + + + + | ALKALINE | 2021-11-13 | [facility] | 69 | u/l | (missing) | | PHOSPHATASE | : | Health | | | | | (U/L) IN | | System - | | | | | SER/PLAS | | [facility] | | | | + + + + + + + | PROTEIN | 2021-11-13 | [facility] | 7.4 | g/dl | (missing) | | (G/DL) IN | | Health | | | | | SER/PLAS | | System - | | | | | | | [facility] | | | | + + + + + + + | PROTEIN | 2021-11-13 | [facility] | 7.4 | g/dl | (missing) | | (G/DL) IN | : | Health | | | | | SER/PLAS | | System - | | | | | | | [facility] | | | | + + + + + + + | CALCIUM | 2021-11-13 | [facility] | 9.0 | mg/dl | (missing) | | (MG/DL) IN | :27 | Health | | | | | SER/PLAS | | System - | | | | | | | [facility] | | | | + + + + + + + | CALCIUM | 2021-11-13 | [facility] | 9.0 | mg/dl | (missing) | | (MG/DL) IN | :27 | Health | | | | | SER/PLAS | | System - | | | | | | | [facility] | | | | + + + + + + + | [facility] QUAL | 2021-11-13 | [facility] | Negative | (missing) | (missing) | | (CHORIOGONAD | 06:27 | Health | | | | | OTROPIN) IN | | System - | | | | | SER/PLAS | | [facility] | | | | + + + + + + + | [facility] QUAL | 2021-11-13 | [facility] | Negative | (missing) | (missing) | | (CHORIOGONAD | 06:27 | Health | | | | | OTROPIN) IN | | System - | | | | | SER/PLAS | | [facility] | | | | + + + + + + + + + | Result panel 49 | + + + + + + + + + | EGFR | 2021-11-14 | [facility] | > | | (missing) | | (GLOMERULAR | 14:36 | Health | | ml/min/1.73m | | | FILTRATION | | System - | | ? | | | RATE) | | [facility] | | | | | ML/MIN/1.73 | | | | | | | SQ M. | | | | | | + + + + + + + | EGFR | 2021-11-14 | [facility] | > | | (missing) | | (GLOMERULAR | 14:36 | Health | | ml/min/1.73m | | | FILTRATION | | System - | | ? | | | RATE) | | [facility] | | | | | ML/MIN/1.73 | | | | | | | SQ M. | | | | | | + + + + + + + | ALCOHOL | 2021-11-14 | [facility] | < | g/dl | (missing) | | (G/DL) IN | 14:36 | Health | | | | | SER/PLAS | | System - | | | | | | | [facility] | | | | + + + + + + + | ALCOHOL | 2021-11-14 | [facility] | < | g/dl | (missing) | | (G/DL) IN | 14:36 | Health | | | | | SER/PLAS | | System - | | | | | | | [facility] | | | | + + + + + + + | | 2021-11-14 | [facility] | < | mcg/ml | (missing) | | ACETAMINOPHE | 14:36 | Health | | | | | N (UG/ML) IN | | System - | | | | | SER/PLAS | | [facility] | | | | + + + + + + + | | 2021-11-14 | [facility] | < | mcg/ml | (missing) | | ACETAMINOPHE | 14:36 | Health | | | | | N (UG/ML) IN | | System - | | | | | SER/PLAS | | [facility] | | | | + + + + + + + | SALICYLATE | 2021-11-14 | [facility] | < | mg/dl | (missing) | | (MG/DL) IN | 14:36 | Health | | | | | SER/PLAS | | System - | | | | | | | [facility] | | | | + + + + + + + | SALICYLATE | 2021-11-14 | [facility] | < | mg/dl | (missing) | | (MG/DL) IN | 14:36 | Health | | | | | SER/PLAS | | System - | | | | | | | [facility] | | | | + + + + + + + | NRBC/100 | 2021-11-14 | [facility] | 0.0 | % | (missing) | | WBCS BY | 14:36 | Health | | | | | AUTOMATED | | System - | | | | | COUNT | | [facility] | | | | + + + + + + + | NRBC/100 | 2021-11-14 | [facility] | 0.0 | % | (missing) | | WBCS BY | 14:36 | Health | | | | | AUTOMATED | | System - | | | | | COUNT | | [facility] | | | | + + + + + + + | | 2021-11-14 | [facility] | 0.0 | k/mcl | (missing) | | NRBC(10*3/UL | 14:36 | Health | | | | | ) IN BLOOD | | System - | | | | | BY AUTOMATED | | [facility] | | | | | COUNT | | | | | | + + + + + + + | | 2021-11-14 | [facility] | 0.0 | k/mcl | (missing) | | NRBC(10*3/UL | 14:36 | Health | | | | | ) IN BLOOD | | System - | | | | | BY AUTOMATED | | [facility] | | | | | COUNT | | | | | | + + + + + + + | IMMATURE | 2021-11-14 | [facility] | 0.05 | k/mcl | (missing) | | GRANULOCYTE | 14:36 | Health | | | | | (ABS) | | System - | | | | | | | [facility] | | | | + + + + + + + | IMMATURE | 2021-11-14 | [facility] | 0.05 | k/mcl | (missing) | | GRANULOCYTE | 14:36 | Health | | | | | (ABS) | | System - | | | | | | | [facility] | | | | + + + + + + + | BASOPHILS | 2021-11-14 | [facility] | 0.1 | k/mcl | (missing) | | (10*3/UL) IN | 14:36 | Health | | | | | BLOOD BY | | System - | | | | | AUTOMATED | | [facility] | | | | | COUNT | | | | | | + + + + + + + | BASOPHILS | 2021-11-14 | [facility] | 0.1 | k/mcl | (missing) | | (10*3/UL) IN | 14:36 | Health | | | | | BLOOD BY | | System - | | | | | AUTOMATED | | [facility] | | | | | COUNT | | | | | | + + + + + + + | EOSINOPHILS | 2021-11-14 | [facility] | 0.2 | k/mcl | (missing) | | (10*3/UL) | 14:36 | Health | | | | | IN BLOOD BY | | System - | | | | | AUTOMATED | | [facility] | | | | | COUNT | | | | | | + + + + + + + | EOSINOPHILS | 2021-11-14 | [facility] | 0.2 | k/mcl | (missing) | | (10*3/UL) | 14:36 | Health | | | | | IN BLOOD BY | | System - | | | | | AUTOMATED | | [facility] | | | | | COUNT | | | | | | + + + + + + + | BILIRUBIN | 2021-11-14 | [facility] | 0.2 | mg/dl | (missing) | | TOTAL | 14:36 | Health | | | | | (MG/DL) IN | | System - | | | | | SER/PLAS | | [facility] | | | | + + + + + + + | BILIRUBIN | 2021-11-14 | [facility] | 0.2 | mg/dl | (missing) | | TOTAL | 14:36 | Health | | | | | (MG/DL) IN | | System - | | | | | SER/PLAS | | [facility] | | | | + + + + + + + | MONOCYTES | 2021-11-14 | [facility] | 0.4 | k/mcl | (missing) | | (10*3/UL) IN | 14:36 | Health | | | | | BLOOD BY | | System - | | | | | AUTOMATED | | [facility] | | | | | COUNT | | | | | | + + + + + + + | MONOCYTES | 2021-11-14 | [facility] | 0.4 | k/mcl | (missing) | | (10*3/UL) IN | 14:36 | Health | | | | | BLOOD BY | | System - | | | | | AUTOMATED | | [facility] | | | | | COUNT | | | | | | + + + + + + + | IMMATURE | 2021-11-14 | [facility] | 0.6 | % | (missing) | | GRANULOCYTE | 14:36 | Health | | | | | % (AUTO) | | System - | | | | | | | [facility] | | | | + + + + + + + | | 2021-11-14 | [facility] | 0.6 | % | (missing) | | BASOPHILS/10 | 14:36 | Health | | | | | 0 LEUKOCYTES | | System - | | | | | IN BLOOD BY | | [facility] | | | | | AUTOMATED | | | | | | | COUNT | | | | | | + + + + + + + | | 2021-11-14 | [facility] | 0.6 | % | (missing) | | BASOPHILS/10 | 14:36 | Health | | | | | 0 LEUKOCYTES | | System - | | | | | IN BLOOD BY | | [facility] | | | | | AUTOMATED | | | | | | | COUNT | | | | | | + + + + + + + | IMMATURE | 2021-11-14 | [facility] | 0.6 | % | (missing) | | GRANULOCYTE | 14:36 | Health | | | | | % (AUTO) | | System - | | | | | | | [facility] | | | | + + + + + + + | CREATININE | 2021-11-14 | [facility] | 0.8 | mg/dl | (missing) | | (MG/DL) IN | :36 | Health | | | | | SER/PLAS | | System - | | | | | | | [facility] | | | | + + + + + + + | CREATININE | 2021-11-14 | [facility] | 0.8 | mg/dl | (missing) | | (MG/DL) IN | 14:36 | Health | | | | | SER/PLAS | | System - | | | | | | | [facility] | | | | + + + + + + + | CHLORIDE | 2021-11-14 | [facility] | 109 | mmol/l | (missing) | | (MMOL/L) IN | 14:36 | Health | | | | | SER/PLAS | | System - | | | | | | | [facility] | | | | + + + + + + + | CHLORIDE | 2021-11-14 | [facility] | 109 | mmol/l | (missing) | | (MMOL/L) IN | 14:36 | Health | | | | | SER/PLAS | | System - | | | | | | | [facility] | | | | + + + + + + + | BLOOD UREA | 2021-11-14 | [facility] | 11 | mg/dl | (missing) | | NITROGEN | 14:36 | Health | | | | | (BUN) | | System - | | | | | (MG/DL) IN | | [facility] | | | | | SER/PLAS | | | | | | + + + + + + + | BLOOD UREA | 2021-11-14 | [facility] | 11 | mg/dl | (missing) | | NITROGEN | 14:36 | Health | | | | | (BUN) | | System - | | | | | (MG/DL) IN | | [facility] | | | | | SER/PLAS | | | | | | + + + + + + + | ERYTHROCYTE | 2021-11-14 | [facility] | 12.4 | % | (missing) | | | 14:36 | Health | | | | | DISTRIBUTION | | System - | | | | | WIDTH | | [facility] | | | | | (RATIO) BY | | | | | | | AUTOMATED | | | | | | | COUNT | | | | | | + + + + + + + | ERYTHROCYTE | 2021-11-14 | [facility] | 12.4 | % | (missing) | | | 14:36 | Health | | | | | DISTRIBUTION | | System - | | | | | WIDTH | | [facility] | | | | | (RATIO) BY | | | | | | | AUTOMATED | | | | | | | COUNT | | | | | | + + + + + + + | ANION GAP | 2021-11-14 | [facility] | 13.0 | mmol/l | (missing) | | IN SER/PLAS | 14:36 | Health | | | | | | | System - | | | | | | | [facility] | | | | + + + + + + + | ANION GAP | 2021-11-14 | [facility] | 13.0 | mmol/l | (missing) | | IN SER/PLAS | 14:36 | Health | | | | | | | System - | | | | | | | [facility] | | | | + + + + + + + | HEMOGLOBIN | 2021-11-14 | [facility] | 14.5 | g/dl | (missing) | | (G/DL) IN | 14:36 | Health | | | | | BLOOD | | System - | | | | | | | [facility] | | | | + + + + + + + | HEMOGLOBIN | 2021-11-14 | [facility] | 14.5 | g/dl | (missing) | | (G/DL) IN | 14:36 | Health | | | | | BLOOD | | System - | | | | | | | [facility] | | | | + + + + + + + | SODIUM | 2021-11-14 | [facility] | 142 | mmol/l | (missing) | | (MMOL/L) IN | 14:36 | Health | | | | | SER/PLAS | | System - | | | | | | | [facility] | | | | + + + + + + + | SODIUM | 2021-11-14 | [facility] | 142 | mmol/l | (missing) | | (MMOL/L) IN | 14:36 | Health | | | | | SER/PLAS | | System - | | | | | | | [facility] | | | | + + + + + + + | GLUCOSE, | 2021-11-14 | [facility] | 145 | mg/dl | (missing) | | RANDOM | 14:36 | Health | | | | | (MG/DL) IN | | System - | | | | | SER/PLAS | | [facility] | | | | + + + + + + + | GLUCOSE, | 2021-11-14 | [facility] | 145 | mg/dl | (missing) | | RANDOM | 14:36 | Health | | | | | (MG/DL) IN | | System - | | | | | SER/PLAS | | [facility] | | | | + + + + + + + | ASPARTATE | 2021-11-14 | [facility] | 18 | u/l | (missing) | | AMINOTRANSFE | 14:36 | Health | | | | | RASE (SGOT) | | System - | | | | | (U/L) IN | | [facility] | | | | | SER/PLAS | | | | | | + + + + + + + | ASPARTATE | 2021-11-14 | [facility] | 18 | u/l | (missing) | | AMINOTRANSFE | 14:36 | Health | | | | | RASE (SGOT) | | System - | | | | | (U/L) IN | | [facility] | | | | | SER/PLAS | | | | | | + + + + + + + | | 2021-11-14 | [facility] | 2.4 | % | (missing) | | EOSINOPHILS/ | 14:36 | Health | | | | | 100 | | System - | | | | | LEUKOCYTES | | [facility] | | | | | IN BLOOD BY | | | | | | | AUTOMATED | | | | | | | COUNT | | | | | | + + + + + + + | | 2021-11-14 | [facility] | 2.4 | % | (missing) | | EOSINOPHILS/ | 14:36 | Health | | | | | 100 | | System - | | | | | LEUKOCYTES | | [facility] | | | | | IN BLOOD BY | | | | | | | AUTOMATED | | | | | | | COUNT | | | | | | + + + + + + + | CARBON | 2021-11-14 | [facility] | 20 | mmol/l | (missing) | | DIOXIDE | 14:36 | Health | | | | | (CO2), TOTAL | | System - | | | | | (MMOL/L) IN | | [facility] | | | | | SER/PLAS | | | | | | + + + + + + + | CARBON | 2021-11-14 | [facility] | 20 | mmol/l | (missing) | | DIOXIDE | 14:36 | Health | | | | | (CO2), TOTAL | | System - | | | | | (MMOL/L) IN | | [facility] | | | | | SER/PLAS | | | | | | + + + + + + + | LYMPHOCYTES | 2021-11-14 | [facility] | 3.1 | k/mcl | (missing) | | (10*3/UL) | 14:36 | Health | | | | | IN BLOOD BY | | System - | | | | | AUTOMATED | | [facility] | | | | | COUNT | | | | | | + + + + + + + | LYMPHOCYTES | 2021-11-14 | [facility] | 3.1 | k/mcl | (missing) | | (10*3/UL) | 14:36 | Health | | | | | IN BLOOD BY | | System - | | | | | AUTOMATED | | [facility] | | | | | COUNT | | | | | | + + + + + + + | POTASSIUM | 2021-11-14 | [facility] | 3.3 | mmol/l | (missing) | | (MMOL/L) IN | 14:36 | Health | | | | | SER/PLAS | | System - | | | | | | | [facility] | | | | + + + + + + + | POTASSIUM | 2021-11-14 | [facility] | 3.3 | mmol/l | (missing) | | (MMOL/L) IN | 14:36 | Health | | | | | SER/PLAS | | System - | | | | | | | [facility] | | | | + + + + + + + | ERYTHROCYTE | 2021-11-14 | [facility] | 31.6 | pg | (missing) | | MEAN | 14:36 | Health | | | | | CORPUSCULAR | | System - | | | | | HEMOGLOBIN | | [facility] | | | | | (PG) BY | | | | | | | AUTOMATED | | | | | | | COUNT | | | | | | + + + + + + + | ERYTHROCYTE | 2021-11-14 | [facility] | 31.6 | pg | (missing) | | MEAN | 14:36 | Health | | | | | CORPUSCULAR | | System - | | | | | HEMOGLOBIN | | [facility] | | | | | (PG) BY | | | | | | | AUTOMATED | | | | | | | COUNT | | | | | | + + + + + + + | ERYTHROCYTE | 2021-11-14 | [facility] | 34.5 | g/dl | (missing) | | MEAN | 14:36 | Health | | | | | CORPUSCULAR | | System - | | | | | HEMOGLOBIN | | [facility] | | | | | CONCENTRATIO | | | | | | | N (G/DL) BY | | | | | | | AUTOMATED | | | | | | + + + + + + + | ERYTHROCYTE | 2021-11-14 | [facility] | 34.5 | g/dl | (missing) | | MEAN | 14:36 | Health | | | | | CORPUSCULAR | | System - | | | | | HEMOGLOBIN | | [facility] | | | | | CONCENTRATIO | | | | | | | N (G/DL) BY | | | | | | | AUTOMATED | | | | | | + + + + + + + | | 2021-11-14 | [facility] | 34.6 | % | (missing) | | LYMPHOCYTES/ | 14:36 | Health | | | | | 100 | | System - | | | | | LEUKOCYTES | | [facility] | | | | | IN BLOOD BY | | | | | | | AUTOMATED | | | | | | | COUNT | | | | | | + + + + + + + | | 2021-11-14 | [facility] | 34.6 | % | (missing) | | LYMPHOCYTES/ | 14:36 | Health | | | | | 100 | | System - | | | | | LEUKOCYTES | | [facility] | | | | | IN BLOOD BY | | | | | | | AUTOMATED | | | | | | | COUNT | | | | | | + + + + + + + | PLATELETS | 2021-11-14 | [facility] | 340 | k/mcl | (missing) | | (10*3/UL) IN | 14:36 | Health | | | | | BLOOD | | System - | | | | | AUTOMATED | | [facility] | | | | | COUNT | | | | | | + + + + + + + | PLATELETS | 2021-11-14 | [facility] | 340 | k/mcl | (missing) | | (10*3/UL) IN | 14:36 | Health | | | | | BLOOD | | System - | | | | | AUTOMATED | | [facility] | | | | | COUNT | | | | | | + + + + + + + | ALBUMIN | 2021-11-14 | [facility] | 4.0 | g/dl | (missing) | | (G/DL) IN | 14:36 | Health | | | | | SER/PLAS | | System - | | | | | | | [facility] | | | | + + + + + + + | ALBUMIN | 2021-11-14 | [facility] | 4.0 | g/dl | (missing) | | (G/DL) IN | 14:36 | Health | | | | | SER/PLAS | | System - | | | | | | | [facility] | | | | + + + + + + + | | 2021-11-14 | [facility] | 4.59 | m/mcl | (missing) | | ERYTHROCYTES | 14:36 | Health | | | | | (10*6/UL) | | System - | | | | | IN BLOOD BY | | [facility] | | | | | AUTOMATED | | | | | | | COUNT | | | | | | + + + + + + + | | 2021-11-14 | [facility] | 4.59 | m/mcl | (missing) | | ERYTHROCYTES | 14:36 | Health | | | | | (10*6/UL) | | System - | | | | | IN BLOOD BY | | [facility] | | | | | AUTOMATED | | | | | | | COUNT | | | | | | + + + + + + + | | 2021-11-14 | [facility] | 4.8 | % | (missing) | | MONOCYTES/10 | 14:36 | Health | | | | | 0 LEUKOCYTES | | System - | | | | | IN BLOOD BY | | [facility] | | | | | AUTOMATED | | | | | | | COUNT | | | | | | + + + + + + + | | 2021-11-14 | [facility] | 4.8 | % | (missing) | | MONOCYTES/10 | 14:36 | Health | | | | | 0 LEUKOCYTES | | System - | | | | | IN BLOOD BY | | [facility] | | | | | AUTOMATED | | | | | | | COUNT | | | | | | + + + + + + + | HEMATOCRIT | 2021-11-14 | [facility] | 42.0 | % | (missing) | | (%) IN BLOOD | 14:36 | Health | | | | | BY | | System - | | | | | AUTOMATED | | [facility] | | | | | COUNT | | | | | | + + + + + + + | HEMATOCRIT | 2021-11-14 | [facility] | 42.0 | % | (missing) | | (%) IN BLOOD | 14:36 | Health | | | | | BY | | System - | | | | | AUTOMATED | | [facility] | | | | | COUNT | | | | | | + + + + + + + | NEUTROPHILS | 2021-11-14 | [facility] | 5.0 | k/mcl | (missing) | | (10*3/UL) | 14:36 | Health | | | | | IN BLOOD BY | | System - | | | | | AUTOMATED | | [facility] | | | | | COUNT | | | | | | + + + + + + + | NEUTROPHILS | 2021-11-14 | [facility] | 5.0 | k/mcl | (missing) | | (10*3/UL) | 14:36 | Health | | | | | IN BLOOD BY | | System - | | | | | AUTOMATED | | [facility] | | | | | COUNT | | | | | | + + + + + + + | ALKALINE | 2021-11-14 | [facility] | 56 | u/l | (missing) | | PHOSPHATASE | 14:36 | Health | | | | | (U/L) IN | | System - | | | | | SER/PLAS | | [facility] | | | | + + + + + + + | ALKALINE | 2021-11-14 | [facility] | 56 | u/l | (missing) | | PHOSPHATASE | 14:36 | Health | | | | | (U/L) IN | | System - | | | | | SER/PLAS | | [facility] | | | | + + + + + + + | | 2021-11-14 | [facility] | 57.0 | % | (missing) | | NEUTROPHILS/ | 14:36 | Health | | | | | 100 | | System - | | | | | LEUKOCYTES | | [facility] | | | | | IN BLOOD BY | | | | | | | AUTOMATED | | | | | | | COUNT | | | | | | + + + + + + + | | 2021-11-14 | [facility] | 57.0 | % | (missing) | | NEUTROPHILS/ | 14:36 | Health | | | | | 100 | | System - | | | | | LEUKOCYTES | | [facility] | | | | | IN BLOOD BY | | | | | | | AUTOMATED | | | | | | | COUNT | | | | | | + + + + + + + | PROTEIN | 2021-11-14 | [facility] | 6.4 | g/dl | (missing) | | (G/DL) IN | 14:36 | Health | | | | | SER/PLAS | | System - | | | | | | | [facility] | | | | + + + + + + + | PROTEIN | 2021-11-14 | [facility] | 6.4 | g/dl | (missing) | | (G/DL) IN | 14:36 | Health | | | | | SER/PLAS | | System - | | | | | | | [facility] | | | | + + + + + + + | ALANINE | 2021-11-14 | [facility] | 7 | u/l | (missing) | | AMINOTRANSFE | 14:36 | Health | | | | | RASE (SGPT) | | System - | | | | | (U/L) IN | | [facility] | | | | | SER/PLAS | | | | | | + + + + + + + | ALANINE | 2021-11-14 | [facility] | 7 | u/l | (missing) | | AMINOTRANSFE | 14:36 | Health | | | | | RASE (SGPT) | | System - | | | | | (U/L) IN | | [facility] | | | | | SER/PLAS | | | | | | + + + + + + + | CALCIUM | 2021-11-14 | [facility] | 8.4 | mg/dl | (missing) | | (MG/DL) IN | 14:36 | Health | | | | | SER/PLAS | | System - | | | | | | | [facility] | | | | + + + + + + + | CALCIUM | 2021-11-14 | [facility] | 8.4 | mg/dl | (missing) | | (MG/DL) IN | 14:36 | Health | | | | | SER/PLAS | | System - | | | | | | | [facility] | | | | + + + + + + + | | 2021-11-14 | [facility] | 8.8 | k/mcl | (missing) | | LEUKOCYTES(1 | 14:36 | Health | | | | | 0*3/UL) IN | | System - | | | | | BLOOD BY | | [facility] | | | | | AUTOMATED | | | | | | | COUNT | | | | | | + + + + + + + | | 2021-11-14 | [facility] | 8.8 | k/mcl | (missing) | | LEUKOCYTES(1 | 14:36 | Health | | | | | 0*3/UL) IN | | System - | | | | | BLOOD BY | | [facility] | | | | | AUTOMATED | | | | | | | COUNT | | | | | | + + + + + + + | PLATELET | 2021-11-14 | [facility] | 9.0 | fl | (missing) | | MEAN VOLUME | 14:36 | Health | | | | | (FL) IN | | System - | | | | | BLOOD BY | | [facility] | | | | | AUTOMATED | | | | | | | COUNT | | | | | | + + + + + + + | PLATELET | 2021-11-14 | [facility] | 9.0 | fl | (missing) | | MEAN VOLUME | 14:36 | Health | | | | | (FL) IN | | System - | | | | | BLOOD BY | | [facility] | | | | | AUTOMATED | | | | | | | COUNT | | | | | | + + + + + + + | ERYTHROCYTE | 2021-11-14 | [facility] | 91.5 | fl | (missing) | | MEAN | 14:36 | Health | | | | | CORPUSCULAR | | System - | | | | | VOLUME ([place]) | | [facility] | | | | | BY AUTOMATED | | | | | | | COUNT | | | | | | + + + + + + + | ERYTHROCYTE | 2021-11-14 | [facility] | 91.5 | fl | (missing) | | MEAN | 14:36 | Health | | | | | CORPUSCULAR | | System - | | | | | VOLUME (FL) | | [facility] | | | | | BY AUTOMATED | | | | | | | COUNT | | | | | | + + + + + + + | | 2021-11-14 | [facility] | Negative | (missing) | (missing) | | BARBITURATES | 14:36 | Health | | | | | PRESENCE IN | | System - | | | | | URINE BY | | [facility] | | | | | SCREEN | | | | | | | METHOD | | | | | | + + + + + + + | | 2021-11-14 | [facility] | Negative | (missing) | (missing) | | BENZODIAZEPI | 14:36 | Health | | | | | SURYA | | System - | | | | | (PRESENCE) | | [facility] | | | | | IN URINE BY | | | | | | | SCREEN | | | | | | | METHOD | | | | | | + + + + + + + | COCAINE | 2021-11-14 | [facility] | Negative | (missing) | (missing) | | (PRESENCE) | 14:36 | Health | | | | | IN URINE BY | | System - | | | | | SCREEN | | [facility] | | | | | METHOD | | | | | | + + + + + + + | INFLUENZA A | 2021-11-14 | [facility] | Negative | (missing) | (missing) | | | 14:36 | Health | | | | | | | System - | | | | | | | [facility] | | | | + + + + + + + | INFLUENZA B | 2021-11-14 | [facility] | Negative | (missing) | (missing) | | | 14:36 | Health | | | | | | | System - | | | | | | | [facility] | | | | + + + + + + + | METHADONE | 2021-11-14 | [facility] | Negative | (missing) | (missing) | | (PRESENCE) | 14:36 | Health | | | | | IN URINE BY | | System - | | | | | SCREEN | | [facility] | | | | | METHOD | | | | | | + + + + + + + | OPIATES | 2021-11-14 | [facility] | Negative | (missing) | (missing) | | (PRESENCE) | 14:36 | Health | | | | | IN URINE BY | | System - | | | | | SCREEN | | [facility] | | | | | METHOD | | | | | | + + + + + + + | OXYCODONE | 2021-11-14 | [facility] | Negative | (missing) | (missing) | | (PRESENCE) | 14:36 | Health | | | | | IN URINE BY | | System - | | | | | SCREEN | | [facility] | | | | | METHOD | | | | | | + + + + + + + | | 2021-11-14 | [facility] | Negative | (missing) | (missing) | | PHENCYCLIDIN | 14:36 | Health | | | | | E ([facility]) | | System - | | | | | IN URINE BY | | [facility] | | | | | SCREEN | | | | | | | METHOD | | | | | | + + + + + + + | RSV | 2021-11-14 | [facility] | Negative | (missing) | (missing) | | | 14:36 | Health | | | | | | | System - | | | | | | | [facility] | | | | + + + + + + + | SARS-COV-2 | 2021-11-14 | [facility] | Negative | (missing) | (missing) | | (COVID19) | 14:36 | Health | | | | | CEPHEID PCR | | System - | | | | | | | [facility] | | | | + + + + + + + | THC | 2021-11-14 | [facility] | Negative | (missing) | (missing) | | (CANNABINOID | 14:36 | Health | | | | | ) IN URINE | | System - | | | | | BY SCREEN | | [facility] | | | | | METHOD | | | | | | + + + + + + + | TRICYCLIC | 2021-11-14 | [facility] | Negative | (missing) | (missing) | | ANTIDEPRESSA | 14:36 | Health | | | | | NTS | | System - | | | | | (PRESENCE) | | [facility] | | | | | IN URINE | | | | | | + + + + + + + | | 2021-11-14 | [facility] | Negative | (missing) | (missing) | | PHENCYCLIDIN | 14:36 | Health | | | | | E ([facility]) | | System - | | | | | IN URINE BY | | [facility] | | | | | SCREEN | | | | | | | METHOD | | | | | | + + + + + + + | THC | 2021-11-14 | [facility] | Negative | (missing) | (missing) | | (CANNABINOID | 14:36 | Health | | | | | ) IN URINE | | System - | | | | | BY SCREEN | | [facility] | | | | | METHOD | | | | | | + + + + + + + | OPIATES | 2021-11-14 | [facility] | Negative | (missing) | (missing) | | (PRESENCE) | 14:36 | Health | | | | | IN URINE BY | | System - | | | | | SCREEN | | [facility] | | | | | METHOD | | | | | | + + + + + + + | TRICYCLIC | 2021-11-14 | [facility] | Negative | (missing) | (missing) | | ANTIDEPRESSA | 14:36 | Health | | | | | NTS | | System - | | | | | (PRESENCE) | | [facility] | | | | | IN URINE | | | | | | + + + + + + + | OXYCODONE | 2021-11-14 | [facility] | Negative | (missing) | (missing) | | (PRESENCE) | 14:36 | Health | | | | | IN URINE BY | | System - | | | | | SCREEN | | [facility] | | | | | METHOD | | | | | | + + + + + + + | INFLUENZA A | 2021-11-14 | [facility] | Negative | (missing) | (missing) | | | 14:36 | Health | | | | | | | System - | | | | | | | [facility] | | | | + + + + + + + | INFLUENZA B | 2021-11-14 | [facility] | Negative | (missing) | (missing) | | | 14:36 | Health | | | | | | | System - | | | | | | | [facility] | | | | + + + + + + + | RSV | 2021-11-14 | [facility] | Negative | (missing) | (missing) | | | 14:36 | Health | | | | | | | System - | | | | | | | [facility] | | | | + + + + + + + | COCAINE | 2021-11-14 | [facility] | Negative | (missing) | (missing) | | (PRESENCE) | 14:36 | Health | | | | | IN URINE BY | | System - | | | | | SCREEN | | [facility] | | | | | METHOD | | | | | | + + + + + + + | | 2021-11-14 | [facility] | Negative | (missing) | (missing) | | BARBITURATES | 14:36 | Health | | | | | PRESENCE IN | | System - | | | | | URINE BY | | [facility] | | | | | SCREEN | | | | | | | METHOD | | | | | | + + + + + + + | | 2021-11-14 | [facility] | Negative | (missing) | (missing) | | BENZODIAZEPI | 14:36 | Health | | | | | SURYA | | System - | | | | | (PRESENCE) | | [facility] | | | | | IN URINE BY | | | | | | | SCREEN | | | | | | | METHOD | | | | | | + + + + + + + | METHADONE | 2021-11-14 | [facility] | Negative | (missing) | (missing) | | (PRESENCE) | 14:36 | Health | | | | | IN URINE BY | | System - | | | | | SCREEN | | [facility] | | | | | METHOD | | | | | | + + + + + + + | SARS-COV-2 | 2021-11-14 | [facility] | Negative | (missing) | (missing) | | (COVID19) | 14:36 | Health | | | | | CEPHEID PCR | | System - | | | | | | | [facility] | | | | + + + + + + + | | 2021-11-14 | [facility] | Presumptive | (missing) | (missing) | | METHAMPHETAM | 14:36 | Health | Positive | | | | INE | | System - | | | | | (PRESENCE) | | [facility] | | | | | IN URINE BY | | | | | | | SCREEN | | | | | | | METHOD | | | | | | + + + + + + + | AMPHETAMINE | 2021-11-14 | [facility] | Presumptive | (missing) | (missing) | | (PRESENCE) | 14:36 | Health | Positive | | | | IN URINE BY | | System - | | | | | SCREEN | | [facility] | | | | | METHOD | | | | | | + + + + + + + | | 2021-11-14 | [facility] | Presumptive | (missing) | (missing) | | METHAMPHETAM | 14:36 | Health | Positive | | | | INE | | System - | | | | | (PRESENCE) | | [facility] | | | | | IN URINE BY | | | | | | | SCREEN | | | | | | | METHOD | | | | | | + + + + + + + | AMPHETAMINE | 2021-11-14 | [facility] | Presumptive | (missing) | (missing) | | (PRESENCE) | 14:36 | Health | Positive | | | | IN URINE BY | | System - | | | | | SCREEN | | [facility] | | | | | METHOD | | | | | | + + + + + + + + + | Result panel 50 | + + + + + +--------+ + + | EGFR | 2021-12-03 | [facility] | > | | (missing) | | (GLOMERULAR | 03:13 | Health | | ml/min/1.73m | | | FILTRATION | | System - | | ? | | | RATE) | | [facility] | | | | | ML/MIN/1.73 | | | | | | | SQ M. | | | | | | + + + +--------+ + + | EGFR | 2021-12-03 | [facility] | > | | (missing) | | (GLOMERULAR | 03:13 | Health | | ml/min/1.73m | | | FILTRATION | | System - | | ? | | | RATE) | | [facility] | | | | | ML/MIN/1.73 | | | | | | | SQ M. | | | | | | + + + +--------+ + + | BILIRUBIN | 2021-12-03 | [facility] | < | mg/dl | (missing) | | TOTAL | 03:13 | Health | | | | | (MG/DL) IN | | System - | | | | | SER/PLAS | | [facility] | | | | + + + +--------+ + + | BILIRUBIN | 2021-12-03 | [facility] | < | mg/dl | (missing) | | TOTAL | 03:13 | Health | | | | | (MG/DL) IN | | System - | | | | | SER/PLAS | | [facility] | | | | + + + +--------+ + + | NRBC/100 | 2021-12-03 | [facility] | 0.0 | % | (missing) | | WBCS BY | 03:13 | Health | | | | | AUTOMATED | | System - | | | | | COUNT | | [facility] | | | | + + + +--------+ + + | NRBC/100 | 2021-12-03 | [facility] | 0.0 | % | (missing) | | WBCS BY | 03:13 | Health | | | | | AUTOMATED | | System - | | | | | COUNT | | [facility] | | | | + + + +--------+ + + | | 2021-12-03 | [facility] | 0.0 | k/mcl | (missing) | | NRBC(10*3/UL | 03:13 | Health | | | | | ) IN BLOOD | | System - | | | | | BY AUTOMATED | | [facility] | | | | | COUNT | | | | | | + + + +--------+ + + | | 2021-12-03 | [facility] | 0.0 | k/mcl | (missing) | | NRBC(10*3/UL | 03:13 | Health | | | | | ) IN BLOOD | | System - | | | | | BY AUTOMATED | | [facility] | | | | | COUNT | | | | | | + + + +--------+ + + | IMMATURE | 2021-12-03 | [facility] | 0.07 | k/mcl | (missing) | | GRANULOCYTE | 03:13 | Health | | | | | (ABS) | | System - | | | | | | | [facility] | | | | + + + +--------+ + + | IMMATURE | 2021-12-03 | [facility] | 0.07 | k/mcl | (missing) | | GRANULOCYTE | 03:13 | Health | | | | | (ABS) | | System - | | | | | | | [facility] | | | | + + + +--------+ + + | BASOPHILS | 2021-12-03 | [facility] | 0.1 | k/mcl | (missing) | | (10*3/UL) IN | 03:13 | Health | | | | | BLOOD BY | | System - | | | | | AUTOMATED | | [facility] | | | | | COUNT | | | | | | + + + +--------+ + + | EOSINOPHILS | 2021-12-03 | [facility] | 0.1 | k/mcl | (missing) | | (10*3/UL) | 03:13 | Health | | | | | IN BLOOD BY | | System - | | | | | AUTOMATED | | [facility] | | | | | COUNT | | | | | | + + + +--------+ + + | BASOPHILS | 2021-12-03 | [facility] | 0.1 | k/mcl | (missing) | | (10*3/UL) IN | 03:13 | Health | | | | | BLOOD BY | | System - | | | | | AUTOMATED | | [facility] | | | | | COUNT | | | | | | + + + +--------+ + + | EOSINOPHILS | 2021-12-03 | [facility] | 0.1 | k/mcl | (missing) | | (10*3/UL) | 03:13 | Health | | | | | IN BLOOD BY | | System - | | | | | AUTOMATED | | [facility] | | | | | COUNT | | | | | | + + + +--------+ + + | IMMATURE | 2021-12-03 | [facility] | 0.7 | % | (missing) | | GRANULOCYTE | 03:13 | Health | | | | | % (AUTO) | | System - | | | | | | | [facility] | | | | + + + +--------+ + + | IMMATURE | 2021-12-03 | [facility] | 0.7 | % | (missing) | | GRANULOCYTE | 03:13 | Health | | | | | % (AUTO) | | System - | | | | | | | [facility] | | | | + + + +--------+ + + | CREATININE | 2021-12-03 | [facility] | 0.7 | mg/dl | (missing) | | (MG/DL) IN | 03:13 | Health | | | | | SER/PLAS | | System - | | | | | | | [facility] | | | | + + + +--------+ + + | CREATININE | 2021-12-03 | [facility] | 0.7 | mg/dl | (missing) | | (MG/DL) IN | 03:13 | Health | | | | | SER/PLAS | | System - | | | | | | | [facility] | | | | + + + +--------+ + + | | 2021-12-03 | [facility] | 0.8 | % | (missing) | | BASOPHILS/10 | 03:13 | Health | | | | | 0 LEUKOCYTES | | System - | | | | | IN BLOOD BY | | [facility] | | | | | AUTOMATED | | | | | | | COUNT | | | | | | + + + +--------+ + + | | 2021-12-03 | [facility] | 0.8 | % | (missing) | | BASOPHILS/10 | 03:13 | Health | | | | | 0 LEUKOCYTES | | System - | | | | | IN BLOOD BY | | [facility] | | | | | AUTOMATED | | | | | | | COUNT | | | | | | + + + +--------+ + + | MONOCYTES | 2021-12-03 | [facility] | 0.8 | k/mcl | (missing) | | (10*3/UL) IN | 03:13 | Health | | | | | BLOOD BY | | System - | | | | | AUTOMATED | | [facility] | | | | | COUNT | | | | | | + + + +--------+ + + | MONOCYTES | 2021-12-03 | [facility] | 0.8 | k/mcl | (missing) | | (10*3/UL) IN | 03:13 | Health | | | | | BLOOD BY | | System - | | | | | AUTOMATED | | [facility] | | | | | COUNT | | | | | | + + + +--------+ + + | | 2021-12-03 | [facility] | 1.3 | % | (missing) | | EOSINOPHILS/ | 03:13 | Health | | | | | 100 | | System - | | | | | LEUKOCYTES | | [facility] | | | | | IN BLOOD BY | | | | | | | AUTOMATED | | | | | | | COUNT | | | | | | + + + +--------+ + + | | 2021-12-03 | [facility] | 1.3 | % | (missing) | | EOSINOPHILS/ | 03:13 | Health | | | | | 100 | | System - | | | | | LEUKOCYTES | | [facility] | | | | | IN BLOOD BY | | | | | | | AUTOMATED | | | | | | | COUNT | | | | | | + + + +--------+ + + | | 2021-12-03 | [facility] | 10.6 | k/mcl | (missing) | | LEUKOCYTES(1 | 03:13 | Health | | | | | 0*3/UL) IN | | System - | | | | | BLOOD BY | | [facility] | | | | | AUTOMATED | | | | | | | COUNT | | | | | | + + + +--------+ + + | | 2021-12-03 | [facility] | 10.6 | k/mcl | (missing) | | LEUKOCYTES(1 | 03:13 | Health | | | | | 0*3/UL) IN | | System - | | | | | BLOOD BY | | [facility] | | | | | AUTOMATED | | | | | | | COUNT | | | | | | + + + +--------+ + + | GLUCOSE, | 2021-12-03 | [facility] | 106 | mg/dl | (missing) | | RANDOM | 03:13 | Health | | | | | (MG/DL) IN | | System - | | | | | SER/PLAS | | [facility] | | | | + + + +--------+ + + | GLUCOSE, | 2021-12-03 | [facility] | 106 | mg/dl | (missing) | | RANDOM | 03:13 | Health | | | | | (MG/DL) IN | | System - | | | | | SER/PLAS | | [facility] | | | | + + + +--------+ + + | CHLORIDE | 2021-12-03 | [facility] | 107 | mmol/l | (missing) | | (MMOL/L) IN | 03:13 | Health | | | | | SER/PLAS | | System - | | | | | | | [facility] | | | | + + + +--------+ + + | CHLORIDE | 2021-12-03 | [facility] | 107 | mmol/l | (missing) | | (MMOL/L) IN | 03:13 | Health | | | | | SER/PLAS | | System - | | | | | | | [facility] | | | | + + + +--------+ + + | ANION GAP | 2021-12-03 | [facility] | 11.0 | mmol/l | (missing) | | IN SER/PLAS | 03:13 | Health | | | | | | | System - | | | | | | | [facility] | | | | + + + +--------+ + + | ANION GAP | 2021-12-03 | [facility] | 11.0 | mmol/l | (missing) | | IN SER/PLAS | 03:13 | Health | | | | | | | System - | | | | | | | [facility] | | | | + + + +--------+ + + | ERYTHROCYTE | 2021-12-03 | [facility] | 12.7 | % | (missing) | | | 03:13 | Health | | | | | DISTRIBUTION | | System - | | | | | WIDTH | | [facility] | | | | | (RATIO) BY | | | | | | | AUTOMATED | | | | | | | COUNT | | | | | | + + + +--------+ + + | ERYTHROCYTE | 2021-12-03 | [facility] | 12.7 | % | (missing) | | | 03:13 | Health | | | | | DISTRIBUTION | | System - | | | | | WIDTH | | [facility] | | | | | (RATIO) BY | | | | | | | AUTOMATED | | | | | | | COUNT | | | | | | + + + +--------+ + + | HEMOGLOBIN | 2021-12-03 | [facility] | 13.7 | g/dl | (missing) | | (G/DL) IN | 03:13 | Health | | | | | BLOOD | | System - | | | | | | | [facility] | | | | + + + +--------+ + + | HEMOGLOBIN | 2021-12-03 | [facility] | 13.7 | g/dl | (missing) | | (G/DL) IN | 03:13 | Health | | | | | BLOOD | | System - | | | | | | | [facility] | | | | + + + +--------+ + + | SODIUM | 2021-12-03 | [facility] | 139 | mmol/l | (missing) | | (MMOL/L) IN | 03:13 | Health | | | | | SER/PLAS | | System - | | | | | | | [facility] | | | | + + + +--------+ + + | SODIUM | 2021-12-03 | [facility] | 139 | mmol/l | (missing) | | (MMOL/L) IN | 03:13 | Health | | | | | SER/PLAS | | System - | | | | | | | [facility] | | | | + + + +--------+ + + | BLOOD UREA | 2021-12-03 | [facility] | 14 | mg/dl | (missing) | | NITROGEN | 03:13 | Health | | | | | (BUN) | | System - | | | | | (MG/DL) IN | | [facility] | | | | | SER/PLAS | | | | | | + + + +--------+ + + | BLOOD UREA | 2021-12-03 | [facility] | 14 | mg/dl | (missing) | | NITROGEN | 03:13 | Health | | | | | (BUN) | | System - | | | | | (MG/DL) IN | | [facility] | | | | | SER/PLAS | | | | | | + + + +--------+ + + | ALANINE | 2021-12-03 | [facility] | 15 | u/l | (missing) | | AMINOTRANSFE | 03:13 | Health | | | | | RASE (SGPT) | | System - | | | | | (U/L) IN | | [facility] | | | | | SER/PLAS | | | | | | + + + +--------+ + + | ALANINE | 2021-12-03 | [facility] | 15 | u/l | (missing) | | AMINOTRANSFE | 03:13 | Health | | | | | RASE (SGPT) | | System - | | | | | (U/L) IN | | [facility] | | | | | SER/PLAS | | | | | | + + + +--------+ + + | CARBON | 2021-12-03 | [facility] | 21 | mmol/l | (missing) | | DIOXIDE | 03:13 | Health | | | | | (CO2), TOTAL | | System - | | | | | (MMOL/L) IN | | [facility] | | | | | SER/PLAS | | | | | | + + + +--------+ + + | CARBON | 2021-12-03 | [facility] | 21 | mmol/l | (missing) | | DIOXIDE | 03:13 | Health | | | | | (CO2), TOTAL | | System - | | | | | (MMOL/L) IN | | [facility] | | | | | SER/PLAS | | | | | | + + + +--------+ + + | ASPARTATE | 2021-12-03 | [facility] | 23 | u/l | (missing) | | AMINOTRANSFE | 03:13 | Health | | | | | RASE (SGOT) | | System - | | | | | (U/L) IN | | [facility] | | | | | SER/PLAS | | | | | | + + + +--------+ + + | ASPARTATE | 2021-12-03 | [facility] | 23 | u/l | (missing) | | AMINOTRANSFE | 03:13 | Health | | | | | RASE (SGOT) | | System - | | | | | (U/L) IN | | [facility] | | | | | SER/PLAS | | | | | | + + + +--------+ + + | POTASSIUM | 2021-12-03 | [facility] | 3.9 | mmol/l | (missing) | | (MMOL/L) IN | 03:13 | Health | | | | | SER/PLAS | | System - | | | | | | | [facility] | | | | + + + +--------+ + + | POTASSIUM | 2021-12-03 | [facility] | 3.9 | mmol/l | (missing) | | (MMOL/L) IN | 03:13 | Health | | | | | SER/PLAS | | System - | | | | | | | [facility] | | | | + + + +--------+ + + | ERYTHROCYTE | 2021-12-03 | [facility] | 30.0 | pg | (missing) | | MEAN | 03:13 | Health | | | | | CORPUSCULAR | | System - | | | | | HEMOGLOBIN | | [facility] | | | | | (PG) BY | | | | | | | AUTOMATED | | | | | | | COUNT | | | | | | + + + +--------+ + + | ERYTHROCYTE | 2021-12-03 | [facility] | 30.0 | pg | (missing) | | MEAN | 03:13 | Health | | | | | CORPUSCULAR | | System - | | | | | HEMOGLOBIN | | [facility] | | | | | (PG) BY | | | | | | | AUTOMATED | | | | | | | COUNT | | | | | | + + + +--------+ + + | ERYTHROCYTE | 2021-12-03 | [facility] | 32.6 | g/dl | (missing) | | MEAN | 03:13 | Health | | | | | CORPUSCULAR | | System - | | | | | HEMOGLOBIN | | [facility] | | | | | CONCENTRATIO | | | | | | | N (G/DL) BY | | | | | | | AUTOMATED | | | | | | + + + +--------+ + + | ERYTHROCYTE | 2021-12-03 | [facility] | 32.6 | g/dl | (missing) | | MEAN | 03:13 | Health | | | | | CORPUSCULAR | | System - | | | | | HEMOGLOBIN | | [facility] | | | | | CONCENTRATIO | | | | | | | N (G/DL) BY | | | | | | | AUTOMATED | | | | | | + + + +--------+ + + | PLATELETS | 2021-12-03 | [facility] | 363 | k/mcl | (missing) | | (10*3/UL) IN | 03:13 | Health | | | | | BLOOD | | System - | | | | | AUTOMATED | | [facility] | | | | | COUNT | | | | | | + + + +--------+ + + | PLATELETS | 2021-12-03 | [facility] | 363 | k/mcl | (missing) | | (10*3/UL) IN | 03:13 | Health | | | | | BLOOD | | System - | | | | | AUTOMATED | | [facility] | | | | | COUNT | | | | | | + + + +--------+ + + | | 2021-12-03 | [facility] | 37.7 | % | (missing) | | LYMPHOCYTES/ | 03:13 | Health | | | | | 100 | | System - | | | | | LEUKOCYTES | | [facility] | | | | | IN BLOOD BY | | | | | | | AUTOMATED | | | | | | | COUNT | | | | | | + + + +--------+ + + | | 2021-12-03 | [facility] | 37.7 | % | (missing) | | LYMPHOCYTES/ | 03:13 | Health | | | | | 100 | | System - | | | | | LEUKOCYTES | | [facility] | | | | | IN BLOOD BY | | | | | | | AUTOMATED | | | | | | | COUNT | | | | | | + + + +--------+ + + | ALBUMIN | 2021-12-03 | [facility] | 4.0 | g/dl | (missing) | | (G/DL) IN | 03:13 | Health | | | | | SER/PLAS | | System - | | | | | | | [facility] | | | | + + + +--------+ + + | ALBUMIN | 2021-12-03 | [facility] | 4.0 | g/dl | (missing) | | (G/DL) IN | 03:13 | Health | | | | | SER/PLAS | | System - | | | | | | | [facility] | | | | + + + +--------+ + + | LYMPHOCYTES | 2021-12-03 | [facility] | 4.0 | k/mcl | (missing) | | (10*3/UL) | 03:13 | Health | | | | | IN BLOOD BY | | System - | | | | | AUTOMATED | | [facility] | | | | | COUNT | | | | | | + + + +--------+ + + | LYMPHOCYTES | 2021-12-03 | [facility] | 4.0 | k/mcl | (missing) | | (10*3/UL) | 03:13 | Health | | | | | IN BLOOD BY | | System - | | | | | AUTOMATED | | [facility] | | | | | COUNT | | | | | | + + + +--------+ + + | | 2021-12-03 | [facility] | 4.56 | m/mcl | (missing) | | ERYTHROCYTES | 03:13 | Health | | | | | (10*6/UL) | | System - | | | | | IN BLOOD BY | | [facility] | | | | | AUTOMATED | | | | | | | COUNT | | | | | | + + + +--------+ + + | | 2021-12-03 | [facility] | 4.56 | m/mcl | (missing) | | ERYTHROCYTES | 03:13 | Health | | | | | (10*6/UL) | | System - | | | | | IN BLOOD BY | | [facility] | | | | | AUTOMATED | | | | | | | COUNT | | | | | | + + + +--------+ + + | HEMATOCRIT | 2021-12-03 | [facility] | 42.0 | % | (missing) | | (%) IN BLOOD | 03:13 | Health | | | | | BY | | System - | | | | | AUTOMATED | | [facility] | | | | | COUNT | | | | | | + + + +--------+ + + | HEMATOCRIT | 2021-12-03 | [facility] | 42.0 | % | (missing) | | (%) IN BLOOD | 03:13 | Health | | | | | BY | | System - | | | | | AUTOMATED | | [facility] | | | | | COUNT | | | | | | + + + +--------+ + + | LIPASE | 2021-12-03 | [facility] | 48 | u/l | (missing) | | (U/L) IN | 03:13 | Health | | | | | SER/PLAS | | System - | | | | | | | [facility] | | | | + + + +--------+ + + | LIPASE | 2021-12-03 | [facility] | 48 | u/l | (missing) | | (U/L) IN | 03:13 | Health | | | | | SER/PLAS | | System - | | | | | | | [facility] | | | | + + + +--------+ + + | NEUTROPHILS | 2021-12-03 | [facility] | 5.5 | k/mcl | (missing) | | (10*3/UL) | 03:13 | Health | | | | | IN BLOOD BY | | System - | | | | | AUTOMATED | | [facility] | | | | | COUNT | | | | | | + + + +--------+ + + | NEUTROPHILS | 2021-12-03 | [facility] | 5.5 | k/mcl | (missing) | | (10*3/UL) | 03:13 | Health | | | | | IN BLOOD BY | | System - | | | | | AUTOMATED | | [facility] | | | | | COUNT | | | | | | + + + +--------+ + + | | 2021-12-03 | [facility] | 51.6 | % | (missing) | | NEUTROPHILS/ | 03:13 | Health | | | | | 100 | | System - | | | | | LEUKOCYTES | | [facility] | | | | | IN BLOOD BY | | | | | | | AUTOMATED | | | | | | | COUNT | | | | | | + + + +--------+ + + | | 2021-12-03 | [facility] | 51.6 | % | (missing) | | NEUTROPHILS/ | 03:13 | Health | | | | | 100 | | System - | | | | | LEUKOCYTES | | [facility] | | | | | IN BLOOD BY | | | | | | | AUTOMATED | | | | | | | COUNT | | | | | | + + + +--------+ + + | PROTEIN | 2021-12-03 | [facility] | 6.2 | g/dl | (missing) | | (G/DL) IN | 03:13 | Health | | | | | SER/PLAS | | System - | | | | | | | [facility] | | | | + + + +--------+ + + | PROTEIN | 2021-12-03 | [facility] | 6.2 | g/dl | (missing) | | (G/DL) IN | 03:13 | Health | | | | | SER/PLAS | | System - | | | | | | | [facility] | | | | + + + +--------+ + + | ALKALINE | 2021-12-03 | [facility] | 64 | u/l | (missing) | | PHOSPHATASE | 03:13 | Health | | | | | (U/L) IN | | System - | | | | | SER/PLAS | | [facility] | | | | + + + +--------+ + + | ALKALINE | 2021-12-03 | [facility] | 64 | u/l | (missing) | | PHOSPHATASE | 03:13 | Health | | | | | (U/L) IN | | System - | | | | | SER/PLAS | | [facility] | | | | + + + +--------+ + + | | 2021-12-03 | [facility] | 7.9 | % | (missing) | | MONOCYTES/10 | 03:13 | Health | | | | | 0 LEUKOCYTES | | System - | | | | | IN BLOOD BY | | [facility] | | | | | AUTOMATED | | | | | | | COUNT | | | | | | + + + +--------+ + + | | 2021-12-03 | [facility] | 7.9 | % | (missing) | | MONOCYTES/10 | 03:13 | Health | | | | | 0 LEUKOCYTES | | System - | | | | | IN BLOOD BY | | [facility] | | | | | AUTOMATED | | | | | | | COUNT | | | | | | + + + +--------+ + + | CALCIUM | 2021-12-03 | [facility] | 8.6 | mg/dl | (missing) | | (MG/DL) IN | 03:13 | Health | | | | | SER/PLAS | | System - | | | | | | | [facility] | | | | + + + +--------+ + + | CALCIUM | 2021-12-03 | [facility] | 8.6 | mg/dl | (missing) | | (MG/DL) IN | 03:13 | Health | | | | | SER/PLAS | | System - | | | | | | | [facility] | | | | + + + +--------+ + + | PLATELET | 2021-12-03 | [facility] | 9.3 | fl | (missing) | | MEAN VOLUME | 03:13 | Health | | | | | (FL) IN | | System - | | | | | BLOOD BY | | [facility] | | | | | AUTOMATED | | | | | | | COUNT | | | | | | + + + +--------+ + + | PLATELET | 2021-12-03 | [facility] | 9.3 | fl | (missing) | | MEAN VOLUME | 03:13 | Health | | | | | (FL) IN | | System - | | | | | BLOOD BY | | [facility] | | | | | AUTOMATED | | | | | | | COUNT | | | | | | + + + +--------+ + + | ERYTHROCYTE | 2021-12-03 | [facility] | 92.1 | fl | (missing) | | MEAN | 03:13 | Health | | | | | CORPUSCULAR | | System - | | | | | VOLUME (FL) | | [facility] | | | | | BY AUTOMATED | | | | | | | COUNT | | | | | | + + + +--------+ + + | ERYTHROCYTE | 2021-12-03 | [facility] | 92.1 | fl | (missing) | | MEAN | 03:13 | Health | | | | | CORPUSCULAR | | System - | | | | | VOLUME (FL) | | [facility] | | | | | BY AUTOMATED | | | | | | | COUNT | | | | | | + + + +--------+ + + + + | Result panel 51 | + + + + + + + + + | | 2021-12-03 | [facility] | Negative | (missing) | (missing) | | BARBITURATES | 22:47 | Health | | | | | PRESENCE IN | | System - | | | | | URINE BY | | [facility] | | | | | SCREEN | | | | | | | METHOD | | | | | | + + + + + + + | | 2021-12-03 | [facility] | Negative | (missing) | (missing) | | BENZODIAZEPI | 22:47 | Health | | | | | SURYA | | System - | | | | | (PRESENCE) | | [facility] | | | | | IN URINE BY | | | | | | | SCREEN | | | | | | | METHOD | | | | | | + + + + + + + | COCAINE | 2021-12-03 | [facility] | Negative | (missing) | (missing) | | (PRESENCE) | 22:47 | Health | | | | | IN URINE BY | | System - | | | | | SCREEN | | [facility] | | | | | METHOD | | | | | | + + + + + + + | METHADONE | 2021-12-03 | [facility] | Negative | (missing) | (missing) | | ([facility]) | 22:47 | Health | | | | | IN URINE BY | | System - | | | | | SCREEN | | [facility] | | | | | METHOD | | | | | | + + + + + + + | OPIATES | 2021-12-03 | [facility] | Negative | (missing) | (missing) | | ([facility]) | 22:47 | Health | | | | | IN URINE BY | | System - | | | | | SCREEN | | [facility] | | | | | METHOD | | | | | | + + + + + + + | OXYCODONE | 2021-12-03 | [facility] | Negative | (missing) | (missing) | | ([facility]) | 22:47 | Health | | | | | IN URINE BY | | System - | | | | | SCREEN | | [facility] | | | | | METHOD | | | | | | + + + + + + + | | 2021-12-03 | [facility] | Negative | (missing) | (missing) | | PHENCYCLIDIN | 22:47 | Health | | | | | E ([facility]) | | System - | | | | | IN URINE BY | | [facility] | | | | | SCREEN | | | | | | | METHOD | | | | | | + + + + + + + | THC | 2021-12-03 | [facility] | Negative | (missing) | (missing) | | (CANNABINOID | 22:47 | Health | | | | | ) IN URINE | | System - | | | | | BY SCREEN | | [facility] | | | | | METHOD | | | | | | + + + + + + + | TRICYCLIC | 2021-12-03 | [facility] | Negative | (missing) | (missing) | | ANTIDEPRESSA | 22:47 | Health | | | | | NTS | | System - | | | | | ([facility]) | | [facility] | | | | | IN URINE | | | | | | + + + + + + + | | 2021-12-03 | [facility] | Negative | (missing) | (missing) | | PHENCYCLIDIN | 22:47 | Health | | | | | E ([facility]) | | System - | | | | | IN URINE BY | | [facility] | | | | | SCREEN | | | | | | | METHOD | | | | | | + + + + + + + | THC | 2021-12-03 | [facility] | Negative | (missing) | (missing) | | (CANNABINOID | 22:47 | Health | | | | | ) IN URINE | | System - | | | | | BY SCREEN | | [facility] | | | | | METHOD | | | | | | + + + + + + + | OPIATES | 2021-12-03 | [facility] | Negative | (missing) | (missing) | | ([facility]) | 22:47 | Health | | | | | IN URINE BY | | System - | | | | | SCREEN | | [facility] | | | | | METHOD | | | | | | + + + + + + + | TRICYCLIC | 2021-12-03 | [facility] | Negative | (missing) | (missing) | | ANTIDEPRESSA | 22:47 | Health | | | | | NTS | | System - | | | | | ([facility]) | | [facility] | | | | | IN URINE | | | | | | + + + + + + + | OXYCODONE | 2021-12-03 | [facility] | Negative | (missing) | (missing) | | ([facility]) | 22:47 | Health | | | | | IN URINE BY | | System - | | | | | SCREEN | | [facility] | | | | | METHOD | | | | | | + + + + + + + | COCAINE | 2021-12-03 | [facility] | Negative | (missing) | (missing) | | ([facility]) | 22:47 | Health | | | | | IN URINE BY | | System - | | | | | SCREEN | | [facility] | | | | | METHOD | | | | | | + + + + + + + | | 2021-12-03 | [facility] | Negative | (missing) | (missing) | | BARBITURATES | 22:47 | Health | | | | | [facility] IN | | System - | | | | | URINE BY | | [facility] | | | | | SCREEN | | | | | | | METHOD | | | | | | + + + + + + + | | 2021-12-03 | [facility] | Negative | (missing) | (missing) | | BENZODIAZEPI | 22:47 | Health | | | | | SURYA | | System - | | | | | ([facility]) | | [facility] | | | | | IN URINE BY | | | | | | | SCREEN | | | | | | | METHOD | | | | | | + + + + + + + | METHADONE | 2021-12-03 | [facility] | Negative | (missing) | (missing) | | ([facility]) | 22:47 | Health | | | | | IN URINE BY | | System - | | | | | SCREEN | | [facility] | | | | | METHOD | | | | | | + + + + + + + | | 2021-12-03 | [facility] | Presumptive | (missing) | (missing) | | METHAMPHETAM | 22:47 | Health | Positive | | | | INE | | System - | | | | | ([facility]) | | [facility] | | | | | IN URINE BY | | | | | | | SCREEN | | | | | | | METHOD | | | | | | + + + + + + + | AMPHETAMINE | 2021-12-03 | [facility] | Presumptive | (missing) | (missing) | | ([facility]) | 22:47 | Health | Positive | | | | IN URINE BY | | System - | | | | | SCREEN | | [facility] | | | | | METHOD | | | | | | + + + + + + + | | 2021-12-03 | [facility] | Presumptive | (missing) | (missing) | | METHAMPHETAM | 22:47 | Health | Positive | | | | INE | | System - | | | | | ([facility]) | | [facility] | | | | | IN URINE BY | | | | | | | SCREEN | | | | | | | METHOD | | | | | | + + + + + + + | AMPHETAMINE | 2021-12-03 | [facility] | Presumptive | (missing) | (missing) | | ([facility]) | 22:47 | Health | Positive | | | | IN URINE BY | | System - | | | | | SCREEN | | [facility] | | | | | METHOD | | | | | | + + + + + + + + + | Result panel 52 | + + + + + + + + + | RBC (#/HPF) | 2021-12-03 | [facility] | < | /hpf | (missing) | | IN URINE | 23:19 | Health | | | | | SEDIMENT | | System - | | | | | | | [facility] | | | | + + + + + + + | WBC | 2021-12-03 | [facility] | < | /hpf | (missing) | | (LEUKOCYTE) | 23:19 | Health | | | | | (#/HPF) IN | | System - | | | | | URINE | | [facility] | | | | | SEDIMENT | | | | | | + + + + + + + | WBC | 2021-12-03 | [facility] | < | /hpf | (missing) | | (LEUKOCYTE) | 23:19 | Health | | | | | (#/HPF) IN | | System - | | | | | URINE | | [facility] | | | | | SEDIMENT | | | | | | + + + + + + + | RBC (#/HPF) | 2021-12-03 | [facility] | < | /hpf | (missing) | | IN URINE | 23:19 | Health | | | | | SEDIMENT | | System - | | | | | | | [facility] | | | | + + + + + + + | HEMOGLOBIN | 2021-12-03 | [facility] | 1 | (missing) | (missing) | | [facility] IN | 23:19 | Health | | | | | URINE | | System - | | | | | | | [facility] | | | | + + + + + + + | HEMOGLOBIN | 2021-12-03 | [facility] | 1 | (missing) | (missing) | | [facility] IN | 23:19 | Health | | | | | URINE | | System - | | | | | | | [facility] | | | | + + + + + + + | SPECIFIC | 2021-12-03 | [facility] | 1.035 | (missing) | (missing) | | GRAVITY OF | 23:19 | Health | | | | | URINE BY | | System - | | | | | AUTOMATED | | [facility] | | | | | TEST STRIP | | | | | | + + + + + + + | SPECIFIC | 2021-12-03 | [facility] | 1.035 | (missing) | (missing) | | GRAVITY OF | 23:19 | Health | | | | | URINE BY | | System - | | | | | AUTOMATED | | [facility] | | | | | TEST STRIP | | | | | | + + + + + + + | SQUAMOUS | 2021-12-03 | [facility] | 3 | /hpf | (missing) | | EPITHELIAL | 23:19 | Health | | | | | CELLS | | System - | | | | | (#/HPF) IN | | [facility] | | | | | URINE | | | | | | | SEDIMENT | | | | | | + + + + + + + | SQUAMOUS | 2021-12-03 | [facility] | 3 | /hpf | (missing) | | EPITHELIAL | 23:19 | Health | | | | | CELLS | | System - | | | | | (#/HPF) IN | | [facility] | | | | | URINE | | | | | | | SEDIMENT | | | | | | + + + + + + + | CALCIUM | 2021-12-03 | [facility] | 4 | /hpf | (missing) | | OXALATE | 23:19 | Health | | | | | CRYSTALS | | System - | | | | | (#/HPF) IN | | [facility] | | | | | URINE | | | | | | + + + + + + + | CALCIUM | 2021-12-03 | [facility] | 4 | /hpf | (missing) | | OXALATE | 23:19 | Health | | | | | CRYSTALS | | System - | | | | | (#/HPF) IN | | [facility] | | | | | URINE | | | | | | + + + + + + + | PH OF URINE | 2021-12-03 | [facility] | 5.5 | (missing) | (missing) | | | 23:19 | Health | | | | | | | System - | | | | | | | [facility] | | | | + + + + + + + | PH OF URINE | 2021-12-03 | [facility] | 5.5 | (missing) | (missing) | | | 23:19 | Health | | | | | | | System - | | | | | | | [facility] | | | | + + + + + + + | CLARITY OF | 2021-12-03 | [facility] | Darryl | (missing) | (missing) | | URINE | 23:19 | Health | | | | | | | System - | | | | | | | [facility] | | | | + + + + + + + | CLARITY OF | 2021-12-03 | [facility] | Heathery | (missing) | (missing) | | URINE | 23:19 | Health | | | | | | | System - | | | | | | | [facility] | | | | + + + + + + + | BILIRUBIN, | 2021-12-03 | [facility] | Negative | (missing) | (missing) | | TOTAL | 23:19 | Health | | | | | [facility] IN | | System - | | | | | URINE | | [facility] | | | | + + + + + + + | GLUCOSE IN | 2021-12-03 | [facility] | Negative | (missing) | (missing) | | URINE | 23:19 | Health | | | | | | | System - | | | | | | | [facility] | | | | + + + + + + + | INFLUENZA A | 2021-12-03 | [facility] | Negative | (missing) | (missing) | | | 23:19 | Health | | | | | | | System - | | | | | | | [facility] | | | | + + + + + + + | INFLUENZA B | 2021-12-03 | [facility] | Negative | (missing) | (missing) | | | 23:19 | Health | | | | | | | System - | | | | | | | [facility] | | | | + + + + + + + | LEUKOCYTE | 2021-12-03 | [facility] | Negative | (missing) | (missing) | | ESTERASE | 23:19 | Health | | | | | [facility] IN | | System - | | | | | URINE BY | | [facility] | | | | | TEST STRIP | | | | | | + + + + + + + | NITRITE | 2021-12-03 | [facility] | Negative | (missing) | (missing) | | [facility] IN | 23:19 | Health | | | | | URINE | | System - | | | | | | | [facility] | | | | + + + + + + + | RSV | 2021-12-03 | [facility] | Negative | (missing) | (missing) | | | 23:19 | Health | | | | | | | System - | | | | | | | [facility] | | | | + + + + + + + | SARS-COV-2 | 2021-12-03 | [facility] | Negative | (missing) | (missing) | | (COVID19) | 23:19 | Health | | | | | CEPHEID PCR | | System - | | | | | | | [facility] | | | | + + + + + + + | BILIRUBIN, | 2021-12-03 | [facility] | Negative | (missing) | (missing) | | TOTAL | 23:19 | Health | | | | | [facility] IN | | System - | | | | | URINE | | [facility] | | | | + + + + + + + | GLUCOSE IN | 2021-12-03 | [facility] | Negative | (missing) | (missing) | | URINE | 23:19 | Health | | | | | | | System - | | | | | | | [facility] | | | | + + + + + + + | INFLUENZA A | 2021-12-03 | [facility] | Negative | (missing) | (missing) | | | 23:19 | Health | | | | | | | System - | | | | | | | [facility] | | | | + + + + + + + | INFLUENZA B | 2021-12-03 | [facility] | Negative | (missing) | (missing) | | | 23:19 | Health | | | | | | | System - | | | | | | | [facility] | | | | + + + + + + + | RSV | 2021-12-03 | [facility] | Negative | (missing) | (missing) | | | 23:19 | Health | | | | | | | System - | | | | | | | [facility] | | | | + + + + + + + | NITRITE | 2021-12-03 | [facility] | Negative | (missing) | (missing) | | [facility] IN | 23:19 | Health | | | | | URINE | | System - | | | | | | | [facility] | | | | + + + + + + + | LEUKOCYTE | 2021-12-03 | [facility] | Negative | (missing) | (missing) | | ESTERASE | 23:19 | Health | | | | | [facility] IN | | System - | | | | | URINE BY | | [facility] | | | | | TEST STRIP | | | | | | + + + + + + + | SARS-COV-2 | 2021-12-03 | [facility] | Negative | (missing) | (missing) | | (COVID19) | 23:19 | Health | | | | | CEPHEID PCR | | System - | | | | | | | [facility] | | | | + + + + + + + | | 2021-12-03 | [facility] | Normal | mg/dl | (missing) | | UROBILINOGEN | 23:19 | Health | | | | | (MG/DL) IN | | System - | | | | | URINE BY | | [facility] | | | | | TEST STRIP | | | | | | + + + + + + + | | 2021-12-03 | [facility] | Normal | mg/dl | (missing) | | UROBILINOGEN | 23:19 | Health | | | | | (MG/DL) IN | | System - | | | | | URINE BY | | [facility] | | | | | TEST STRIP | | | | | | + + + + + + + | KETONES IN | 2021-12-03 | [facility] | Trace | (missing) | (missing) | | URINE | 23:19 | Health | | | | | | | System - | | | | | | | [facility] | | | | + + + + + + + | MUCUS | 2021-12-03 | [facility] | Trace | (missing) | (missing) | | (#/HPF) IN | :19 | Health | | | | | URINE | | System - | | | | | SEDIMENT | | [facility] | | | | + + + + + + + | PROTEIN IN | 2021-12-03 | [facility] | Trace | (missing) | (missing) | | URINE BY | :19 | Health | | | | | TEST STRIP | | System - | | | | | | | [facility] | | | | + + + + + + + | MUCUS | 2021-12-03 | [facility] | Trace | (missing) | (missing) | | (#/HPF) IN | 23:19 | Health | | | | | URINE | | System - | | | | | SEDIMENT | | [facility] | | | | + + + + + + + | KETONES IN | 2021-12-03 | [facility] | Trace | (missing) | (missing) | | URINE | 23:19 | Health | | | | | | | System - | | | | | | | [facility] | | | | + + + + + + + | PROTEIN IN | 2021-12-03 | [facility] | Trace | (missing) | (missing) | | URINE BY | 23:19 | Health | | | | | TEST STRIP | | System - | | | | | | | [facility] | | | | + + + + + + + | BACTERIA | 2021-12-03 | [facility] | Trace | /hpf | (missing) | | (#/HPF) IN | 23:19 | Health | | | | | URINE | | System - | | | | | | | [facility] | | | | + + + + + + + | BACTERIA | 2021-12-03 | [facility] | Trace | /hpf | (missing) | | (#/HPF) IN | 23:19 | Health | | | | | URINE | | System - | | | | | | | [facility] | | | | + + + + + + + | COLOR OF | 2021-12-03 | [facility] | Yellow | (missing) | (missing) | | URINE | 23:19 | Health | | | | | | | System - | | | | | | | [facility] | | | | + + + + + + + | COLOR OF | 2021-12-03 | [facility] | Yellow | (missing) | (missing) | | URINE | 23:19 | Health | | | | | | | System - | | | | | | | [facility] | | | | + + + + + + + + + | Result panel 53 | + + + + + + + + + | EGFR | 2021-12-05 | [facility] | > | | (missing) | | (GLOMERULAR | 22:29 | Health | | ml/min/1.73m | | | FILTRATION | | System - | | ? | | | RATE) | | [facility] | | | | | ML/MIN/1.73 | | | | | | | SQ M. | | | | | | + + + + + + + | EGFR | 2021-12-05 | [facility] | > | | (missing) | | (GLOMERULAR | 22:29 | Health | | ml/min/1.73m | | | FILTRATION | | System - | | ? | | | RATE) | | [facility] | | | | | ML/MIN/1.73 | | | | | | | SQ M. | | | | | | + + + + + + + | ALCOHOL | 2021-12-05 | [facility] | < | g/dl | (missing) | | (G/DL) IN | 22:29 | Health | | | | | SER/PLAS | | System - | | | | | | | [facility] | | | | + + + + + + + | ALCOHOL | 2021-12-05 | [facility] | < | g/dl | (missing) | | (G/DL) IN | 22:29 | Health | | | | | SER/PLAS | | System - | | | | | | | [facility] | | | | + + + + + + + | | 2021-12-05 | [facility] | < | mcg/ml | (missing) | | ACETAMINOPHE | 22:29 | Health | | | | | N (UG/ML) IN | | System - | | | | | SER/PLAS | | [facility] | | | | + + + + + + + | | 2021-12-05 | [facility] | < | mcg/ml | (missing) | | ACETAMINOPHE | 22:29 | Health | | | | | N (UG/ML) IN | | System - | | | | | SER/PLAS | | [facility] | | | | + + + + + + + | SALICYLATE | 2021-12-05 | [facility] | < | mg/dl | (missing) | | (MG/DL) IN | 22:29 | Health | | | | | SER/PLAS | | System - | | | | | | | [facility] | | | | + + + + + + + | SALICYLATE | 2021-12-05 | [facility] | < | mg/dl | (missing) | | (MG/DL) IN | 22:29 | Health | | | | | SER/PLAS | | System - | | | | | | | [facility] | | | | + + + + + + + | NRBC/100 | 2021-12-05 | [facility] | 0.0 | % | (missing) | | WBCS BY | :29 | Health | | | | | AUTOMATED | | System - | | | | | COUNT | | [facility] | | | | + + + + + + + | NRBC/100 | 2021-12-05 | [facility] | 0.0 | % | (missing) | | WBCS BY | 22:29 | Health | | | | | AUTOMATED | | System - | | | | | COUNT | | [facility] | | | | + + + + + + + | BASOPHILS | 2021-12-05 | [facility] | 0.0 | k/mcl | (missing) | | (10*3/UL) IN | 22:29 | Health | | | | | BLOOD BY | | System - | | | | | AUTOMATED | | [facility] | | | | | COUNT | | | | | | + + + + + + + | | 2021-12-05 | [facility] | 0.0 | k/mcl | (missing) | | NRBC(10*3/UL | | Health | | | | | ) IN BLOOD | | System - | | | | | BY AUTOMATED | | [facility] | | | | | COUNT | | | | | | + + + + + + + | BASOPHILS | 2021-12-05 | [facility] | 0.0 | k/mcl | (missing) | | (10*3/UL) IN | :29 | Health | | | | | BLOOD BY | | System - | | | | | AUTOMATED | | [facility] | | | | | COUNT | | | | | | + + + + + + + | | 2021-12-05 | [facility] | 0.0 | k/mcl | (missing) | | NRBC(10*3/UL | 22:29 | Health | | | | | ) IN BLOOD | | System - | | | | | BY AUTOMATED | | [facility] | | | | | COUNT | | | | | | + + + + + + + | IMMATURE | 2021-12-05 | [facility] | 0.05 | k/mcl | (missing) | | GRANULOCYTE | 22:29 | Health | | | | | (ABS) | | System - | | | | | | | [facility] | | | | + + + + + + + | IMMATURE | 2021-12-05 | [facility] | 0.05 | k/mcl | (missing) | | GRANULOCYTE | 22:29 | Health | | | | | (ABS) | | System - | | | | | | | [facility] | | | | + + + + + + + | EOSINOPHILS | 2021-12-05 | [facility] | 0.2 | k/mcl | (missing) | | (10*3/UL) | 22:29 | Health | | | | | IN BLOOD BY | | System - | | | | | AUTOMATED | | [facility] | | | | | COUNT | | | | | | + + + + + + + | EOSINOPHILS | 2021-12-05 | [facility] | 0.2 | k/mcl | (missing) | | (10*3/UL) | 22:29 | Health | | | | | IN BLOOD BY | | System - | | | | | AUTOMATED | | [facility] | | | | | COUNT | | | | | | + + + + + + + | | 2021-12-05 | [facility] | 0.4 | % | (missing) | | BASOPHILS/10 | 22:29 | Health | | | | | 0 LEUKOCYTES | | System - | | | | | IN BLOOD BY | | [facility] | | | | | AUTOMATED | | | | | | | COUNT | | | | | | + + + + + + + | | 2021-12-05 | [facility] | 0.4 | % | (missing) | | BASOPHILS/10 | 22:29 | Health | | | | | 0 LEUKOCYTES | | System - | | | | | IN BLOOD BY | | [facility] | | | | | AUTOMATED | | | | | | | COUNT | | | | | | + + + + + + + | BILIRUBIN | 2021-12-05 | [facility] | 0.4 | mg/dl | (missing) | | TOTAL | 22:29 | Health | | | | | (MG/DL) IN | | System - | | | | | SER/PLAS | | [facility] | | | | + + + + + + + | BILIRUBIN | 2021-12-05 | [facility] | 0.4 | mg/dl | (missing) | | TOTAL | 22:29 | Health | | | | | (MG/DL) IN | | System - | | | | | SER/PLAS | | [facility] | | | | + + + + + + + | IMMATURE | 2021-12-05 | [facility] | 0.5 | % | (missing) | | GRANULOCYTE | 22:29 | Health | | | | | % (AUTO) | | System - | | | | | | | [facility] | | | | + + + + + + + | IMMATURE | 2021-12-05 | [facility] | 0.5 | % | (missing) | | GRANULOCYTE | 22:29 | Health | | | | | % (AUTO) | | System - | | | | | | | [facility] | | | | + + + + + + + | MONOCYTES | 2021-12-05 | [facility] | 0.6 | k/mcl | (missing) | | (10*3/UL) IN | 22:29 | Health | | | | | BLOOD BY | | System - | | | | | AUTOMATED | | [facility] | | | | | COUNT | | | | | | + + + + + + + | MONOCYTES | 2021-12-05 | [facility] | 0.6 | k/mcl | (missing) | | (10*3/UL) IN | 22:29 | Health | | | | | BLOOD BY | | System - | | | | | AUTOMATED | | [facility] | | | | | COUNT | | | | | | + + + + + + + | CREATININE | 2021-12-05 | [facility] | 0.8 | mg/dl | (missing) | | (MG/DL) IN | 22:29 | Health | | | | | SER/PLAS | | System - | | | | | | | [facility] | | | | + + + + + + + | CREATININE | 2021-12-05 | [facility] | 0.8 | mg/dl | (missing) | | (MG/DL) IN | 22:29 | Health | | | | | SER/PLAS | | System - | | | | | | | [facility] | | | | + + + + + + + | | 2021-12-05 | [facility] | 1.6 | % | (missing) | | EOSINOPHILS/ | 22:29 | Health | | | | | 100 | | System - | | | | | LEUKOCYTES | | [facility] | | | | | IN BLOOD BY | | | | | | | AUTOMATED | | | | | | | COUNT | | | | | | + + + + + + + | | 2021-12-05 | [facility] | 1.6 | % | (missing) | | EOSINOPHILS/ | 22:29 | Health | | | | | 100 | | System - | | | | | LEUKOCYTES | | [facility] | | | | | IN BLOOD BY | | | | | | | AUTOMATED | | | | | | | COUNT | | | | | | + + + + + + + | | 2021-12-05 | [facility] | 10.2 | k/mcl | (missing) | | LEUKOCYTES(1 | :29 | Health | | | | | 0*3/UL) IN | | System - | | | | | BLOOD BY | | [facility] | | | | | AUTOMATED | | | | | | | COUNT | | | | | | + + + + + + + | | 2021-12-05 | [facility] | 10.2 | k/mcl | (missing) | | LEUKOCYTES(1 | 22:29 | Health | | | | | 0*3/UL) IN | | System - | | | | | BLOOD BY | | [facility] | | | | | AUTOMATED | | | | | | | COUNT | | | | | | + + + + + + + | CHLORIDE | 2021-12-05 | [facility] | 103 | mmol/l | (missing) | | (MMOL/L) IN | 22:29 | Health | | | | | SER/PLAS | | System - | | | | | | | [facility] | | | | + + + + + + + | CHLORIDE | 2021-12-05 | [facility] | 103 | mmol/l | (missing) | | (MMOL/L) IN | 22:29 | Health | | | | | SER/PLAS | | System - | | | | | | | [facility] | | | | + + + + + + + | ERYTHROCYTE | 2021-12-05 | [facility] | 11.9 | % | (missing) | | | 22:29 | Health | | | | | DISTRIBUTION | | System - | | | | | WIDTH | | [facility] | | | | | (RATIO) BY | | | | | | | AUTOMATED | | | | | | | COUNT | | | | | | + + + + + + + | ERYTHROCYTE | 2021-12-05 | [facility] | 11.9 | % | (missing) | | | 22:29 | Health | | | | | DISTRIBUTION | | System - | | | | | WIDTH | | [facility] | | | | | (RATIO) BY | | | | | | | AUTOMATED | | | | | | | COUNT | | | | | | + + + + + + + | GLUCOSE, | 2021-12-05 | [facility] | 119 | mg/dl | (missing) | | RANDOM | 22:29 | Health | | | | | (MG/DL) IN | | System - | | | | | SER/PLAS | | [facility] | | | | + + + + + + + | GLUCOSE, | 2021-12-05 | [facility] | 119 | mg/dl | (missing) | | RANDOM | 22:29 | Health | | | | | (MG/DL) IN | | System - | | | | | SER/PLAS | | [facility] | | | | + + + + + + + | SODIUM | 2021-12-05 | [facility] | 137 | mmol/l | (missing) | | (MMOL/L) IN | 22:29 | Health | | | | | SER/PLAS | | System - | | | | | | | [facility] | | | | + + + + + + + | SODIUM | 2021-12-05 | [facility] | 137 | mmol/l | (missing) | | (MMOL/L) IN | 22:29 | Health | | | | | SER/PLAS | | System - | | | | | | | [facility] | | | | + + + + + + + | ALANINE | 2021-12-05 | [facility] | 15 | u/l | (missing) | | AMINOTRANSFE | 22:29 | Health | | | | | RASE (SGPT) | | System - | | | | | (U/L) IN | | [facility] | | | | | SER/PLAS | | | | | | + + + + + + + | ALANINE | 2021-12-05 | [facility] | 15 | u/l | (missing) | | AMINOTRANSFE | 22:29 | Health | | | | | RASE (SGPT) | | System - | | | | | (U/L) IN | | [facility] | | | | | SER/PLAS | | | | | | + + + + + + + | HEMOGLOBIN | 2021-12-05 | [facility] | 15.2 | g/dl | (missing) | | (G/DL) IN | 22:29 | Health | | | | | BLOOD | | System - | | | | | | | [facility] | | | | + + + + + + + | HEMOGLOBIN | 2021-12-05 | [facility] | 15.2 | g/dl | (missing) | | (G/DL) IN | 22:29 | Health | | | | | BLOOD | | System - | | | | | | | [facility] | | | | + + + + + + + | ANION GAP | 2021-12-05 | [facility] | 16.0 | mmol/l | (missing) | | IN SER/PLAS | 22:29 | Health | | | | | | | System - | | | | | | | [facility] | | | | + + + + + + + | ANION GAP | 2021-12-05 | [facility] | 16.0 | mmol/l | (missing) | | IN SER/PLAS | 22:29 | Health | | | | | | | System - | | | | | | | [facility] | | | | + + + + + + + | CARBON | 2021-12-05 | [facility] | 18 | mmol/l | (missing) | | DIOXIDE | 22:29 | Health | | | | | (CO2), TOTAL | | System - | | | | | (MMOL/L) IN | | [facility] | | | | | SER/PLAS | | | | | | + + + + + + + | CARBON | 2021-12-05 | [facility] | 18 | mmol/l | (missing) | | DIOXIDE | 22:29 | Health | | | | | (CO2), TOTAL | | System - | | | | | (MMOL/L) IN | | [facility] | | | | | SER/PLAS | | | | | | + + + + + + + | LYMPHOCYTES | 2021-12-05 | [facility] | 2.7 | k/mcl | (missing) | | (10*3/UL) | 22:29 | Health | | | | | IN BLOOD BY | | System - | | | | | AUTOMATED | | [facility] | | | | | COUNT | | | | | | + + + + + + + | LYMPHOCYTES | 2021-12-05 | [facility] | 2.7 | k/mcl | (missing) | | (10*3/UL) | 22:29 | Health | | | | | IN BLOOD BY | | System - | | | | | AUTOMATED | | [facility] | | | | | COUNT | | | | | | + + + + + + + | ASPARTATE | 2021-12-05 | [facility] | 22 | u/l | (missing) | | AMINOTRANSFE | 22:29 | Health | | | | | RASE (SGOT) | | System - | | | | | (U/L) IN | | [facility] | | | | | SER/PLAS | | | | | | + + + + + + + | ASPARTATE | 2021-12-05 | [facility] | 22 | u/l | (missing) | | AMINOTRANSFE | 22:29 | Health | | | | | RASE (SGOT) | | System - | | | | | (U/L) IN | | [facility] | | | | | SER/PLAS | | | | | | + + + + + + + | | 2021-12-05 | [facility] | 26.6 | % | (missing) | | LYMPHOCYTES/ | 22:29 | Health | | | | | 100 | | System - | | | | | LEUKOCYTES | | [facility] | | | | | IN BLOOD BY | | | | | | | AUTOMATED | | | | | | | COUNT | | | | | | + + + + + + + | | 2021-12-05 | [facility] | 26.6 | % | (missing) | | LYMPHOCYTES/ | 22:29 | Health | | | | | 100 | | System - | | | | | LEUKOCYTES | | [facility] | | | | | IN BLOOD BY | | | | | | | AUTOMATED | | | | | | | COUNT | | | | | | + + + + + + + | POTASSIUM | 2021-12-05 | [facility] | 3.3 | mmol/l | (missing) | | (MMOL/L) IN | 22:29 | Health | | | | | SER/PLAS | | System - | | | | | | | [facility] | | | | + + + + + + + | POTASSIUM | 2021-12-05 | [facility] | 3.3 | mmol/l | (missing) | | (MMOL/L) IN | 22:29 | Health | | | | | SER/PLAS | | System - | | | | | | | [facility] | | | | + + + + + + + | ERYTHROCYTE | 2021-12-05 | [facility] | 30.6 | pg | (missing) | | MEAN | 22:29 | Health | | | | | CORPUSCULAR | | System - | | | | | HEMOGLOBIN | | [facility] | | | | | (PG) BY | | | | | | | AUTOMATED | | | | | | | COUNT | | | | | | + + + + + + + | ERYTHROCYTE | 2021-12-05 | [facility] | 30.6 | pg | (missing) | | MEAN | 22:29 | Health | | | | | CORPUSCULAR | | System - | | | | | HEMOGLOBIN | | [facility] | | | | | (PG) BY | | | | | | | AUTOMATED | | | | | | | COUNT | | | | | | + + + + + + + | ERYTHROCYTE | 2021-12-05 | [facility] | 34.7 | g/dl | (missing) | | MEAN | 22:29 | Health | | | | | CORPUSCULAR | | System - | | | | | HEMOGLOBIN | | [facility] | | | | | CONCENTRATIO | | | | | | | N (G/DL) BY | | | | | | | AUTOMATED | | | | | | + + + + + + + | ERYTHROCYTE | 2021-12-05 | [facility] | 34.7 | g/dl | (missing) | | MEAN | 22:29 | Health | | | | | CORPUSCULAR | | System - | | | | | HEMOGLOBIN | | [facility] | | | | | CONCENTRATIO | | | | | | | N (G/DL) BY | | | | | | | AUTOMATED | | | | | | + + + + + + + | PLATELETS | 2021-12-05 | [facility] | 356 | k/mcl | (missing) | | (10*3/UL) IN | 22:29 | Health | | | | | BLOOD | | System - | | | | | AUTOMATED | | [facility] | | | | | COUNT | | | | | | + + + + + + + | PLATELETS | 2021-12-05 | [facility] | 356 | k/mcl | (missing) | | (10*3/UL) IN | 22:29 | Health | | | | | BLOOD | | System - | | | | | AUTOMATED | | [facility] | | | | | COUNT | | | | | | + + + + + + + | ALBUMIN | 2021-12-05 | [facility] | 4.4 | g/dl | (missing) | | (G/DL) IN | 22:29 | Health | | | | | SER/PLAS | | System - | | | | | | | [facility] | | | | + + + + + + + | ALBUMIN | 2021-12-05 | [facility] | 4.4 | g/dl | (missing) | | (G/DL) IN | 22:29 | Health | | | | | SER/PLAS | | System - | | | | | | | [facility] | | | | + + + + + + + | | 2021-12-05 | [facility] | 4.96 | m/mcl | (missing) | | ERYTHROCYTES | 22:29 | Health | | | | | (10*6/UL) | | System - | | | | | IN BLOOD BY | | [facility] | | | | | AUTOMATED | | | | | | | COUNT | | | | | | + + + + + + + | | 2021-12-05 | [facility] | 4.96 | m/mcl | (missing) | | ERYTHROCYTES | 22:29 | Health | | | | | (10*6/UL) | | System - | | | | | IN BLOOD BY | | [facility] | | | | | AUTOMATED | | | | | | | COUNT | | | | | | + + + + + + + | HEMATOCRIT | 2021-12-05 | [facility] | 43.8 | % | (missing) | | (%) IN BLOOD | 22:29 | Health | | | | | BY | | System - | | | | | AUTOMATED | | [facility] | | | | | COUNT | | | | | | + + + + + + + | HEMATOCRIT | 2021-12-05 | [facility] | 43.8 | % | (missing) | | (%) IN BLOOD | 22:29 | Health | | | | | BY | | System - | | | | | AUTOMATED | | [facility] | | | | | COUNT | | | | | | + + + + + + + | | 2021-12-05 | [facility] | 5.6 | % | (missing) | | MONOCYTES/10 | 22:29 | Health | | | | | 0 LEUKOCYTES | | System - | | | | | IN BLOOD BY | | [facility] | | | | | AUTOMATED | | | | | | | COUNT | | | | | | + + + + + + + | | 2021-12-05 | [facility] | 5.6 | % | (missing) | | MONOCYTES/10 | 22:29 | Health | | | | | 0 LEUKOCYTES | | System - | | | | | IN BLOOD BY | | [facility] | | | | | AUTOMATED | | | | | | | COUNT | | | | | | + + + + + + + | NEUTROPHILS | 2021-12-05 | [facility] | 6.7 | k/mcl | (missing) | | (10*3/UL) | 22:29 | Health | | | | | IN BLOOD BY | | System - | | | | | AUTOMATED | | [facility] | | | | | COUNT | | | | | | + + + + + + + | NEUTROPHILS | 2021-12-05 | [facility] | 6.7 | k/mcl | (missing) | | (10*3/UL) | 22:29 | Health | | | | | IN BLOOD BY | | System - | | | | | AUTOMATED | | [facility] | | | | | COUNT | | | | | | + + + + + + + | | 2021-12-05 | [facility] | 65.3 | % | (missing) | | NEUTROPHILS/ | 22:29 | Health | | | | | 100 | | System - | | | | | LEUKOCYTES | | [facility] | | | | | IN BLOOD BY | | | | | | | AUTOMATED | | | | | | | COUNT | | | | | | + + + + + + + | | 2021-12-05 | [facility] | 65.3 | % | (missing) | | NEUTROPHILS/ | 22:29 | Health | | | | | 100 | | System - | | | | | LEUKOCYTES | | [facility] | | | | | IN BLOOD BY | | | | | | | AUTOMATED | | | | | | | COUNT | | | | | | + + + + + + + | ALKALINE | 2021-12-05 | [facility] | 69 | u/l | (missing) | | PHOSPHATASE | 22:29 | Health | | | | | (U/L) IN | | System - | | | | | SER/PLAS | | [facility] | | | | + + + + + + + | ALKALINE | 2021-12-05 | [facility] | 69 | u/l | (missing) | | PHOSPHATASE | 22:29 | Health | | | | | (U/L) IN | | System - | | | | | SER/PLAS | | [facility] | | | | + + + + + + + | PROTEIN | 2021-12-05 | [facility] | 7.1 | g/dl | (missing) | | (G/DL) IN | 22:29 | Health | | | | | SER/PLAS | | System - | | | | | | | [facility] | | | | + + + + + + + | PROTEIN | 2021-12-05 | [facility] | 7.1 | g/dl | (missing) | | (G/DL) IN | 22:29 | Health | | | | | SER/PLAS | | System - | | | | | | | [facility] | | | | + + + + + + + | CALCIUM | 2021-12-05 | [facility] | 8.7 | mg/dl | (missing) | | (MG/DL) IN | 22:29 | Health | | | | | SER/PLAS | | System - | | | | | | | [facility] | | | | + + + + + + + | CALCIUM | 2021-12-05 | [facility] | 8.7 | mg/dl | (missing) | | (MG/DL) IN | 22:29 | Health | | | | | SER/PLAS | | System - | | | | | | | [facility] | | | | + + + + + + + | ERYTHROCYTE | 2021-12-05 | [facility] | 88.3 | fl | (missing) | | MEAN | 22:29 | Health | | | | | CORPUSCULAR | | System - | | | | | VOLUME (FL) | | [facility] | | | | | BY AUTOMATED | | | | | | | COUNT | | | | | | + + + + + + + | ERYTHROCYTE | 2021-12-05 | [facility] | 88.3 | fl | (missing) | | MEAN | 22:29 | Health | | | | | CORPUSCULAR | | System - | | | | | VOLUME (FL) | | [facility] | | | | | BY AUTOMATED | | | | | | | COUNT | | | | | | + + + + + + + | BLOOD UREA | 2021-12-05 | [facility] | 9 | mg/dl | (missing) | | NITROGEN | 22:29 | Health | | | | | (BUN) | | System - | | | | | (MG/DL) IN | | [facility] | | | | | SER/PLAS | | | | | | + + + + + + + | BLOOD UREA | 2021-12-05 | [facility] | 9 | mg/dl | (missing) | | NITROGEN | 22:29 | Health | | | | | (BUN) | | System - | | | | | (MG/DL) IN | | [facility] | | | | | SER/PLAS | | | | | | + + + + + + + | PLATELET | 2021-12-05 | [facility] | 9.3 | fl | (missing) | | MEAN VOLUME | 22:29 | Health | | | | | (FL) IN | | System - | | | | | BLOOD BY | | [facility] | | | | | AUTOMATED | | | | | | | COUNT | | | | | | + + + + + + + | PLATELET | 2021-12-05 | [facility] | 9.3 | fl | (missing) | | MEAN VOLUME | 22:29 | Health | | | | | (FL) IN | | System - | | | | | BLOOD BY | | [facility] | | | | | AUTOMATED | | | | | | | COUNT | | | | | | + + + + + + + | [facility] QUAL | 2021-12-05 | [facility] | Negative | (missing) | (missing) | | (CHORIOGONAD | 22:29 | Health | | | | | OTROPIN) IN | | System - | | | | | SER/PLAS | | [facility] | | | | + + + + + + + | [facility] QUAL | 2021-12-05 | [facility] | Negative | (missing) | (missing) | | (CHORIOGONAD | 22:29 | Health | | | | | OTROPIN) IN | | System - | | | | | SER/PLAS | | [facility] | | | | + + + + + + + + + | Result panel 54 | + + + + + + + + + | EGFR | 2021-12-16 | [facility] | > | | (missing) | | (GLOMERULAR | 00:45 | Health | | ml/min/1.73m | | | FILTRATION | | System - | | ? | | | RATE) | | [facility] | | | | | ML/MIN/1.73 | | | | | | | SQ M. | | | | | | + + + + + + + | EGFR | 2021-12-16 | [facility] | > | | (missing) | | (GLOMERULAR | 00:45 | Health | | ml/min/1.73m | | | FILTRATION | | System - | | ? | | | RATE) | | [facility] | | | | | ML/MIN/1.73 | | | | | | | SQ M. | | | | | | + + + + + + + | ALCOHOL | 2021-12-16 | [facility] | < | g/dl | (missing) | | (G/DL) IN | 00:45 | Health | | | | | SER/PLAS | | System - | | | | | | | [facility] | | | | + + + + + + + | ALCOHOL | 2021-12-16 | [facility] | < | g/dl | (missing) | | (G/DL) IN | 00:45 | Health | | | | | SER/PLAS | | System - | | | | | | | [facility] | | | | + + + + + + + | SALICYLATE | 2021-12-16 | [facility] | < | mg/dl | (missing) | | (MG/DL) IN | 00:45 | Health | | | | | SER/PLAS | | System - | | | | | | | [facility] | | | | + + + + + + + | SALICYLATE | 2021-12-16 | [facility] | < | mg/dl | (missing) | | (MG/DL) IN | 00:45 | Health | | | | | SER/PLAS | | System - | | | | | | | [facility] | | | | + + + + + + + | TROPONIN T | 2021-12-16 | [facility] | < | ng/ml | (missing) | | CARDIAC | 00:45 | Health | | | | | (NG/ML) IN | | System - | | | | | SER/PLAS | | [facility] | | | | + + + + + + + | TROPONIN T | 2021-12-16 | [facility] | < | ng/ml | (missing) | | CARDIAC | 00:45 | Health | | | | | (NG/ML) IN | | System - | | | | | SER/PLAS | | [facility] | | | | + + + + + + + | NRBC/100 | 2021-12-16 | [facility] | 0.0 | % | (missing) | | WBCS BY | 00:45 | Health | | | | | AUTOMATED | | System - | | | | | COUNT | | [facility] | | | | + + + + + + + | NRBC/100 | 2021-12-16 | [facility] | 0.0 | % | (missing) | | WBCS BY | 00:45 | Health | | | | | AUTOMATED | | System - | | | | | COUNT | | [facility] | | | | + + + + + + + | | 2021-12-16 | [facility] | 0.0 | k/mcl | (missing) | | NRBC(10*3/UL | 00:45 | Health | | | | | ) IN BLOOD | | System - | | | | | BY AUTOMATED | | [facility] | | | | | COUNT | | | | | | + + + + + + + | | 2021-12-16 | [facility] | 0.0 | k/mcl | (missing) | | NRBC(10*3/UL | 00:45 | Health | | | | | ) IN BLOOD | | System - | | | | | BY AUTOMATED | | [facility] | | | | | COUNT | | | | | | + + + + + + + | IMMATURE | 2021-12-16 | [facility] | 0.03 | k/mcl | (missing) | | GRANULOCYTE | 00:45 | Health | | | | | (ABS) | | System - | | | | | | | [facility] | | | | + + + + + + + | IMMATURE | 2021-12-16 | [facility] | 0.03 | k/mcl | (missing) | | GRANULOCYTE | 00:45 | Health | | | | | (ABS) | | System - | | | | | | | [facility] | | | | + + + + + + + | BASOPHILS | 2021-12-16 | [facility] | 0.1 | k/mcl | (missing) | | (10*3/UL) IN | 00:45 | Health | | | | | BLOOD BY | | System - | | | | | AUTOMATED | | [facility] | | | | | COUNT | | | | | | + + + + + + + | EOSINOPHILS | 2021-12-16 | [facility] | 0.1 | k/mcl | (missing) | | (10*3/UL) | 00:45 | Health | | | | | IN BLOOD BY | | System - | | | | | AUTOMATED | | [facility] | | | | | COUNT | | | | | | + + + + + + + | BASOPHILS | 2021-12-16 | [facility] | 0.1 | k/mcl | (missing) | | (10*3/UL) IN | 00:45 | Health | | | | | BLOOD BY | | System - | | | | | AUTOMATED | | [facility] | | | | | COUNT | | | | | | + + + + + + + | EOSINOPHILS | 2021-12-16 | [facility] | 0.1 | k/mcl | (missing) | | (10*3/UL) | 00:45 | Health | | | | | IN BLOOD BY | | System - | | | | | AUTOMATED | | [facility] | | | | | COUNT | | | | | | + + + + + + + | BILIRUBIN | 2021-12-16 | [facility] | 0.2 | mg/dl | (missing) | | TOTAL | 00:45 | Health | | | | | (MG/DL) IN | | System - | | | | | SER/PLAS | | [facility] | | | | + + + + + + + | BILIRUBIN | 2021-12-16 | [facility] | 0.2 | mg/dl | (missing) | | TOTAL | 00:45 | Health | | | | | (MG/DL) IN | | System - | | | | | SER/PLAS | | [facility] | | | | + + + + + + + | IMMATURE | 2021-12-16 | [facility] | 0.3 | % | (missing) | | GRANULOCYTE | 00:45 | Health | | | | | % (AUTO) | | System - | | | | | | | [facility] | | | | + + + + + + + | IMMATURE | 2021-12-16 | [facility] | 0.3 | % | (missing) | | GRANULOCYTE | 00:45 | Health | | | | | % (AUTO) | | System - | | | | | | | [facility] | | | | + + + + + + + | MONOCYTES | 2021-12-16 | [facility] | 0.5 | k/mcl | (missing) | | (10*3/UL) IN | 00:45 | Health | | | | | BLOOD BY | | System - | | | | | AUTOMATED | | [facility] | | | | | COUNT | | | | | | + + + + + + + | MONOCYTES | 2021-12-16 | [facility] | 0.5 | k/mcl | (missing) | | (10*3/UL) IN | 00:45 | Health | | | | | BLOOD BY | | System - | | | | | AUTOMATED | | [facility] | | | | | COUNT | | | | | | + + + + + + + | | 2021-12-16 | [facility] | 0.6 | % | (missing) | | BASOPHILS/10 | 00:45 | Health | | | | | 0 LEUKOCYTES | | System - | | | | | IN BLOOD BY | | [facility] | | | | | AUTOMATED | | | | | | | COUNT | | | | | | + + + + + + + | | 2021-12-16 | [facility] | 0.6 | % | (missing) | | BASOPHILS/10 | 00:45 | Health | | | | | 0 LEUKOCYTES | | System - | | | | | IN BLOOD BY | | [facility] | | | | | AUTOMATED | | | | | | | COUNT | | | | | | + + + + + + + | | 2021-12-16 | [facility] | 0.8 | % | (missing) | | EOSINOPHILS/ | 00:45 | Health | | | | | 100 | | System - | | | | | LEUKOCYTES | | [facility] | | | | | IN BLOOD BY | | | | | | | AUTOMATED | | | | | | | COUNT | | | | | | + + + + + + + | | 2021-12-16 | [facility] | 0.8 | % | (missing) | | EOSINOPHILS/ | 00:45 | Health | | | | | 100 | | System - | | | | | LEUKOCYTES | | [facility] | | | | | IN BLOOD BY | | | | | | | AUTOMATED | | | | | | | COUNT | | | | | | + + + + + + + | CREATININE | 2021-12-16 | [facility] | 0.8 | mg/dl | (missing) | | (MG/DL) IN | 00:45 | Health | | | | | SER/PLAS | | System - | | | | | | | [facility] | | | | + + + + + + + | CREATININE | 2021-12-16 | [facility] | 0.8 | mg/dl | (missing) | | (MG/DL) IN | 00:45 | Health | | | | | SER/PLAS | | System - | | | | | | | [facility] | | | | + + + + + + + | GLUCOSE, | 2021-12-16 | [facility] | 106 | mg/dl | (missing) | | RANDOM | 00:45 | Health | | | | | (MG/DL) IN | | System - | | | | | SER/PLAS | | [facility] | | | | + + + + + + + | GLUCOSE, | 2021-12-16 | [facility] | 106 | mg/dl | (missing) | | RANDOM | 00:45 | Health | | | | | (MG/DL) IN | | System - | | | | | SER/PLAS | | [facility] | | | | + + + + + + + | CHLORIDE | 2021-12-16 | [facility] | 107 | mmol/l | (missing) | | (MMOL/L) IN | 00:45 | Health | | | | | SER/PLAS | | System - | | | | | | | [facility] | | | | + + + + + + + | CHLORIDE | 2021-12-16 | [facility] | 107 | mmol/l | (missing) | | (MMOL/L) IN | 00:45 | Health | | | | | SER/PLAS | | System - | | | | | | | [facility] | | | | + + + + + + + | ERYTHROCYTE | 2021-12-16 | [facility] | 12.3 | % | (missing) | | | 00:45 | Health | | | | | DISTRIBUTION | | System - | | | | | WIDTH | | [facility] | | | | | (RATIO) BY | | | | | | | AUTOMATED | | | | | | | COUNT | | | | | | + + + + + + + | ERYTHROCYTE | 2021-12-16 | [facility] | 12.3 | % | (missing) | | | 00:45 | Health | | | | | DISTRIBUTION | | System - | | | | | WIDTH | | [facility] | | | | | (RATIO) BY | | | | | | | AUTOMATED | | | | | | | COUNT | | | | | | + + + + + + + | ANION GAP | 2021-12-16 | [facility] | 13.0 | mmol/l | (missing) | | IN SER/PLAS | 00:45 | Health | | | | | | | System - | | | | | | | [facility] | | | | + + + + + + + | ANION GAP | 2021-12-16 | [facility] | 13.0 | mmol/l | (missing) | | IN SER/PLAS | 00:45 | Health | | | | | | | System - | | | | | | | [facility] | | | | + + + + + + + | HEMOGLOBIN | 2021-12-16 | [facility] | 13.8 | g/dl | (missing) | | (G/DL) IN | 00:45 | Health | | | | | BLOOD | | System - | | | | | | | [facility] | | | | + + + + + + + | HEMOGLOBIN | 2021-12-16 | [facility] | 13.8 | g/dl | (missing) | | (G/DL) IN | 00:45 | Health | | | | | BLOOD | | System - | | | | | | | [facility] | | | | + + + + + + + | SODIUM | 2021-12-16 | [facility] | 141 | mmol/l | (missing) | | (MMOL/L) IN | 00:45 | Health | | | | | SER/PLAS | | System - | | | | | | | [facility] | | | | + + + + + + + | SODIUM | 2021-12-16 | [facility] | 141 | mmol/l | (missing) | | (MMOL/L) IN | 00:45 | Health | | | | | SER/PLAS | | System - | | | | | | | [facility] | | | | + + + + + + + | ASPARTATE | 2021-12-16 | [facility] | 18 | u/l | (missing) | | AMINOTRANSFE | 00:45 | Health | | | | | RASE (SGOT) | | System - | | | | | (U/L) IN | | [facility] | | | | | SER/PLAS | | | | | | + + + + + + + | ASPARTATE | 2021-12-16 | [facility] | 18 | u/l | (missing) | | AMINOTRANSFE | 00:45 | Health | | | | | RASE (SGOT) | | System - | | | | | (U/L) IN | | [facility] | | | | | SER/PLAS | | | | | | + + + + + + + | CARBON | 2021-12-16 | [facility] | 21 | mmol/l | (missing) | | DIOXIDE | 00:45 | Health | | | | | (CO2), TOTAL | | System - | | | | | (MMOL/L) IN | | [facility] | | | | | SER/PLAS | | | | | | + + + + + + + | CARBON | 2021-12-16 | [facility] | 21 | mmol/l | (missing) | | DIOXIDE | 00:45 | Health | | | | | (CO2), TOTAL | | System - | | | | | (MMOL/L) IN | | [facility] | | | | | SER/PLAS | | | | | | + + + + + + + | POTASSIUM | 2021-12-16 | [facility] | 3.4 | mmol/l | (missing) | | (MMOL/L) IN | 00:45 | Health | | | | | SER/PLAS | | System - | | | | | | | [facility] | | | | + + + + + + + | POTASSIUM | 2021-12-16 | [facility] | 3.4 | mmol/l | (missing) | | (MMOL/L) IN | 00:45 | Health | | | | | SER/PLAS | | System - | | | | | | | [facility] | | | | + + + + + + + | LYMPHOCYTES | 2021-12-16 | [facility] | 3.8 | k/mcl | (missing) | | (10*3/UL) | 00:45 | Health | | | | | IN BLOOD BY | | System - | | | | | AUTOMATED | | [facility] | | | | | COUNT | | | | | | + + + + + + + | LYMPHOCYTES | 2021-12-16 | [facility] | 3.8 | k/mcl | (missing) | | (10*3/UL) | 00:45 | Health | | | | | IN BLOOD BY | | System - | | | | | AUTOMATED | | [facility] | | | | | COUNT | | | | | | + + + + + + + | ERYTHROCYTE | 2021-12-16 | [facility] | 30.4 | pg | (missing) | | MEAN | 00:45 | Health | | | | | CORPUSCULAR | | System - | | | | | HEMOGLOBIN | | [facility] | | | | | (PG) BY | | | | | | | AUTOMATED | | | | | | | COUNT | | | | | | + + + + + + + | ERYTHROCYTE | 2021-12-16 | [facility] | 30.4 | pg | (missing) | | MEAN | 00:45 | Health | | | | | CORPUSCULAR | | System - | | | | | HEMOGLOBIN | | [facility] | | | | | (PG) BY | | | | | | | AUTOMATED | | | | | | | COUNT | | | | | | + + + + + + + | ERYTHROCYTE | 2021-12-16 | [facility] | 33.3 | g/dl | (missing) | | MEAN | 00:45 | Health | | | | | CORPUSCULAR | | System - | | | | | HEMOGLOBIN | | [facility] | | | | | CONCENTRATIO | | | | | | | N (G/DL) BY | | | | | | | AUTOMATED | | | | | | + + + + + + + | ERYTHROCYTE | 2021-12-16 | [facility] | 33.3 | g/dl | (missing) | | MEAN | 00:45 | Health | | | | | CORPUSCULAR | | System - | | | | | HEMOGLOBIN | | [facility] | | | | | CONCENTRATIO | | | | | | | N (G/DL) BY | | | | | | | AUTOMATED | | | | | | + + + + + + + | PLATELETS | 2021-12-16 | [facility] | 378 | k/mcl | (missing) | | (10*3/UL) IN | 00:45 | Health | | | | | BLOOD | | System - | | | | | AUTOMATED | | [facility] | | | | | COUNT | | | | | | + + + + + + + | PLATELETS | 2021-12-16 | [facility] | 378 | k/mcl | (missing) | | (10*3/UL) IN | 00:45 | Health | | | | | BLOOD | | System - | | | | | AUTOMATED | | [facility] | | | | | COUNT | | | | | | + + + + + + + | NEUTROPHILS | 2021-12-16 | [facility] | 4.3 | k/mcl | (missing) | | (10*3/UL) | 00:45 | Health | | | | | IN BLOOD BY | | System - | | | | | AUTOMATED | | [facility] | | | | | COUNT | | | | | | + + + + + + + | NEUTROPHILS | 2021-12-16 | [facility] | 4.3 | k/mcl | (missing) | | (10*3/UL) | 00:45 | Health | | | | | IN BLOOD BY | | System - | | | | | AUTOMATED | | [facility] | | | | | COUNT | | | | | | + + + + + + + | ALBUMIN | 2021-12-16 | [facility] | 4.5 | g/dl | (missing) | | (G/DL) IN | 00:45 | Health | | | | | SER/PLAS | | System - | | | | | | | [facility] | | | | + + + + + + + | ALBUMIN | 2021-12-16 | [facility] | 4.5 | g/dl | (missing) | | (G/DL) IN | 00:45 | Health | | | | | SER/PLAS | | System - | | | | | | | [facility] | | | | + + + + + + + | | 2021-12-16 | [facility] | 4.54 | m/mcl | (missing) | | ERYTHROCYTES | 00:45 | Health | | | | | (10*6/UL) | | System - | | | | | IN BLOOD BY | | [facility] | | | | | AUTOMATED | | | | | | | COUNT | | | | | | + + + + + + + | | 2021-12-16 | [facility] | 4.54 | m/mcl | (missing) | | ERYTHROCYTES | 00:45 | Health | | | | | (10*6/UL) | | System - | | | | | IN BLOOD BY | | [facility] | | | | | AUTOMATED | | | | | | | COUNT | | | | | | + + + + + + + | HEMATOCRIT | 2021-12-16 | [facility] | 41.5 | % | (missing) | | (%) IN BLOOD | 00:45 | Health | | | | | BY | | System - | | | | | AUTOMATED | | [facility] | | | | | COUNT | | | | | | + + + + + + + | HEMATOCRIT | 2021-12-16 | [facility] | 41.5 | % | (missing) | | (%) IN BLOOD | 00:45 | Health | | | | | BY | | System - | | | | | AUTOMATED | | [facility] | | | | | COUNT | | | | | | + + + + + + + | | 2021-12-16 | [facility] | 43.7 | % | (missing) | | LYMPHOCYTES/ | 00:45 | Health | | | | | 100 | | System - | | | | | LEUKOCYTES | | [facility] | | | | | IN BLOOD BY | | | | | | | AUTOMATED | | | | | | | COUNT | | | | | | + + + + + + + | | 2021-12-16 | [facility] | 43.7 | % | (missing) | | LYMPHOCYTES/ | 00:45 | Health | | | | | 100 | | System - | | | | | LEUKOCYTES | | [facility] | | | | | IN BLOOD BY | | | | | | | AUTOMATED | | | | | | | COUNT | | | | | | + + + + + + + | | 2021-12-16 | [facility] | 49.1 | % | (missing) | | NEUTROPHILS/ | 00:45 | Health | | | | | 100 | | System - | | | | | LEUKOCYTES | | [facility] | | | | | IN BLOOD BY | | | | | | | AUTOMATED | | | | | | | COUNT | | | | | | + + + + + + + | | 2021-12-16 | [facility] | 49.1 | % | (missing) | | NEUTROPHILS/ | 00:45 | Health | | | | | 100 | | System - | | | | | LEUKOCYTES | | [facility] | | | | | IN BLOOD BY | | | | | | | AUTOMATED | | | | | | | COUNT | | | | | | + + + + + + + | | 2021-12-16 | [facility] | 5.5 | % | (missing) | | MONOCYTES/10 | 00:45 | Health | | | | | 0 LEUKOCYTES | | System - | | | | | IN BLOOD BY | | [facility] | | | | | AUTOMATED | | | | | | | COUNT | | | | | | + + + + + + + | | 2021-12-16 | [facility] | 5.5 | % | (missing) | | MONOCYTES/10 | 00:45 | Health | | | | | 0 LEUKOCYTES | | System - | | | | | IN BLOOD BY | | [facility] | | | | | AUTOMATED | | | | | | | COUNT | | | | | | + + + + + + + | ALKALINE | 2021-12-16 | [facility] | 62 | u/l | (missing) | | PHOSPHATASE | 00:45 | Health | | | | | (U/L) IN | | System - | | | | | SER/PLAS | | [facility] | | | | + + + + + + + | ALKALINE | 2021-12-16 | [facility] | 62 | u/l | (missing) | | PHOSPHATASE | 00:45 | Health | | | | | (U/L) IN | | System - | | | | | SER/PLAS | | [facility] | | | | + + + + + + + | BLOOD UREA | 2021-12-16 | [facility] | 7 | mg/dl | (missing) | | NITROGEN | 00:45 | Health | | | | | (BUN) | | System - | | | | | (MG/DL) IN | | [facility] | | | | | SER/PLAS | | | | | | + + + + + + + | BLOOD UREA | 2021-12-16 | [facility] | 7 | mg/dl | (missing) | | NITROGEN | 00:45 | Health | | | | | (BUN) | | System - | | | | | (MG/DL) IN | | [facility] | | | | | SER/PLAS | | | | | | + + + + + + + | PROTEIN | 2021-12-16 | [facility] | 7.0 | g/dl | (missing) | | (G/DL) IN | 00:45 | Health | | | | | SER/PLAS | | System - | | | | | | | [facility] | | | | + + + + + + + | PROTEIN | 2021-12-16 | [facility] | 7.0 | g/dl | (missing) | | (G/DL) IN | 00:45 | Health | | | | | SER/PLAS | | System - | | | | | | | [facility] | | | | + + + + + + + | | 2021-12-16 | [facility] | 8.8 | k/mcl | (missing) | | LEUKOCYTES(1 | 00:45 | Health | | | | | 0*3/UL) IN | | System - | | | | | BLOOD BY | | [facility] | | | | | AUTOMATED | | | | | | | COUNT | | | | | | + + + + + + + | | 2021-12-16 | [facility] | 8.8 | k/mcl | (missing) | | LEUKOCYTES(1 | 00:45 | Health | | | | | 0*3/UL) IN | | System - | | | | | BLOOD BY | | [facility] | | | | | AUTOMATED | | | | | | | COUNT | | | | | | + + + + + + + | ALANINE | 2021-12-16 | [facility] | 9 | u/l | (missing) | | AMINOTRANSFE | 00:45 | Health | | | | | RASE (SGPT) | | System - | | | | | (U/L) IN | | [facility] | | | | | SER/PLAS | | | | | | + + + + + + + | ALANINE | 2021-12-16 | [facility] | 9 | u/l | (missing) | | AMINOTRANSFE | 00:45 | Health | | | | | RASE (SGPT) | | System - | | | | | (U/L) IN | | [facility] | | | | | SER/PLAS | | | | | | + + + + + + + | CALCIUM | 2021-12-16 | [facility] | 9.0 | mg/dl | (missing) | | (MG/DL) IN | 00:45 | Health | | | | | SER/PLAS | | System - | | | | | | | [facility] | | | | + + + + + + + | CALCIUM | 2021-12-16 | [facility] | 9.0 | mg/dl | (missing) | | (MG/DL) IN | 00:45 | Health | | | | | SER/PLAS | | System - | | | | | | | [facility] | | | | + + + + + + + | PLATELET | 2021-12-16 | [facility] | 9.1 | fl | (missing) | | MEAN VOLUME | 00:45 | Health | | | | | (FL) IN | | System - | | | | | BLOOD BY | | [facility] | | | | | AUTOMATED | | | | | | | COUNT | | | | | | + + + + + + + | PLATELET | 2021-12-16 | [facility] | 9.1 | fl | (missing) | | MEAN VOLUME | 00:45 | Health | | | | | (FL) IN | | System - | | | | | BLOOD BY | | [facility] | | | | | AUTOMATED | | | | | | | COUNT | | | | | | + + + + + + + | ERYTHROCYTE | 2021-12-16 | [facility] | 91.4 | fl | (missing) | | MEAN | 00:45 | Health | | | | | CORPUSCULAR | | System - | | | | | VOLUME (FL) | | [facility] | | | | | BY AUTOMATED | | | | | | | COUNT | | | | | | + + + + + + + | ERYTHROCYTE | 2021-12-16 | [facility] | 91.4 | fl | (missing) | | MEAN | 00:45 | Health | | | | | CORPUSCULAR | | System - | | | | | VOLUME (FL) | | [facility] | | | | | BY AUTOMATED | | | | | | | COUNT | | | | | | + + + + + + + | [facility] QUAL | 2021-12-16 | [facility] | Negative | (missing) | (missing) | | (CHORIOGONAD | 00:45 | Health | | | | | OTROPIN) IN | | System - | | | | | SER/PLAS | | [facility] | | | | + + + + + + + | [facility] QUAL | 2021-12-16 | [facility] | Negative | (missing) | (missing) | | (CHORIOGONAD | 00:45 | Health | | | | | OTROPIN) IN | | System - | | | | | SER/PLAS | | [facility] | | | | + + + + + + + + + | Result panel 55 | + + + + + + + + + | | 2021-12-16 | [facility] | (missing) | (missing) | (missing) | | (unavailable | 00:46 | Health | | | | | ) | | System - | | | | | | | [facility] | | | | + + + + + + + | | 2021-12-16 | [facility] | BONES: | (missing) | (missing) | | (unavailable | 00:46 | Health | Normal. | | | | ) | | System - | | | | | | | [facility] | | | | + + + + + + + | | 2021-12-16 | [facility] | COMPARISON: | (missing) | (missing) | | (unavailable | 00:46 | Health | 09/29/2021 | | | | ) | | System - | | | | | | | [facility] | | | | + + + + + + + | | 2021-12-16 | [facility] | Electronical | (missing) | (missing) | | (unavailable | 00:46 | Health | ly signed | | | | ) | | System - | by: Nithin | | | | | | [facility] | MD Suhas | | | | | | | on 12/16/2021 | | | | | | | 1:27 AM at | | | | | | | workstation | | | | | | | [id number] | | | | | | | 3 | | | + + + + + + + | | 2021-12-16 | [facility] | FINDINGS: | (missing) | (missing) | | (unavailable | 00:46 | Health | | | | | ) | | System - | | | | | | | [facility] | | | | + + + + + + + | | 2021-12-16 | [facility] | HEART: | (missing) | (missing) | | (unavailable | 00:46 | Health | Normal in | | | | ) | | System - | size and | | | | | | [facility] | appearance. | | | + + + + + + + | | 2021-12-16 | [facility] | | (missing) | (missing) | | (unavailable | 00:46 | Health | INDICATIONS: | | | | ) | | System - | chest pain | | | | | | [facility] | | | | + + + + + + + | | 2021-12-16 | [facility] | LUNGS: | (missing) | (missing) | | (unavailable | 00:46 | Health | Clear. No | | | | ) | | System - | focal | | | | | | [facility] | consolidatio | | | | | | | n. No | | | | | | | suspicious | | | | | | | lung | | | | | | | nodules. | | | + + + + + + + | | 2021-12-16 | [facility] | MEDIASTINUM: | (missing) | (missing) | | (unavailable | 00:46 | Health | Normal | | | | ) | | System - | mediastinal | | | | | | [facility] | contours | | | | | | | without | | | | | | | radiographic | | | | | | | evidence of | | | | | | | | | | | | | | lymphadenopa | | | | | | | thy. | | | + + + + + + + | | 2021-12-16 | [facility] | No | (missing) | (missing) | | (unavailable | 00:46 | Health | radiographic | | | | ) | | System - | evidence of | | | | | | [facility] | acute | | | | | | | cardiopulmon | | | | | | | cezar disease. | | | | | | | | | | + + + + + + + | | 2021-12-16 | [facility] | PLEURAL | (missing) | (missing) | | (unavailable | 00:46 | Health | SPACES: No | | | | ) | | System - | pleural | | | | | | [facility] | effusion or | | | | | | | pneumothorax | | | | | | | . | | | + + + + + + + | | 2021-12-16 | [facility] | PROCEDURE: | (missing) | (missing) | | (unavailable | 00:46 | Health | CHEST - ONE | | | | ) | | System - | VIEW | | | | | | [facility] | | | | + + + + + + + | | 2021-12-16 | [facility] | | (missing) | (missing) | | (unavailable | 00:46 | Health | Procedure(s) | | | | ) | | System - | : * No | | | | | | [facility] | procedures | | | | | | | listed * | | | + + + + + + + + + | Result panel 56 | + + + + + + + + + | EGFR | 2021-12-18 | [facility] | > | | (missing) | | (GLOMERULAR | 00:22 | Health | | ml/min/1.73m | | | FILTRATION | | System - | | ? | | | RATE) | | [facility] | | | | | ML/MIN/1.73 | | | | | | | SQ M. | | | | | | + + + + + + + | EGFR | 2021-12-18 | [facility] | > | | (missing) | | (GLOMERULAR | 00:22 | Health | | ml/min/1.73m | | | FILTRATION | | System - | | ? | | | RATE) | | [facility] | | | | | ML/MIN/1.73 | | | | | | | SQ M. | | | | | | + + + + + + + | ALCOHOL | 2021-12-18 | [facility] | < | g/dl | (missing) | | (G/DL) IN | 00:22 | Health | | | | | SER/PLAS | | System - | | | | | | | [facility] | | | | + + + + + + + | ALCOHOL | 2021-12-18 | [facility] | < | g/dl | (missing) | | (G/DL) IN | 00:22 | Health | | | | | SER/PLAS | | System - | | | | | | | [facility] | | | | + + + + + + + | | 2021-12-18 | [facility] | < | mcg/ml | (missing) | | ACETAMINOPHE | 00:22 | Health | | | | | N (UG/ML) IN | | System - | | | | | SER/PLAS | | [facility] | | | | + + + + + + + | | 2021-12-18 | [facility] | < | mcg/ml | (missing) | | ACETAMINOPHE | 00:22 | Health | | | | | N (UG/ML) IN | | System - | | | | | SER/PLAS | | [facility] | | | | + + + + + + + | SALICYLATE | 2021-12-18 | [facility] | < | mg/dl | (missing) | | (MG/DL) IN | 00:22 | Health | | | | | SER/PLAS | | System - | | | | | | | [facility] | | | | + + + + + + + | SALICYLATE | 2021-12-18 | [facility] | < | mg/dl | (missing) | | (MG/DL) IN | 00:22 | Health | | | | | SER/PLAS | | System - | | | | | | | [facility] | | | | + + + + + + + | NRBC/100 | 2021-12-18 | [facility] | 0.0 | % | (missing) | | WBCS BY | 00:22 | Health | | | | | AUTOMATED | | System - | | | | | COUNT | | [facility] | | | | + + + + + + + | NRBC/100 | 2021-12-18 | [facility] | 0.0 | % | (missing) | | WBCS BY | 00:22 | Health | | | | | AUTOMATED | | System - | | | | | COUNT | | [facility] | | | | + + + + + + + | | 2021-12-18 | [facility] | 0.0 | k/mcl | (missing) | | NRBC(10*3/UL | 00:22 | Health | | | | | ) IN BLOOD | | System - | | | | | BY AUTOMATED | | [facility] | | | | | COUNT | | | | | | + + + + + + + | | 2021-12-18 | [facility] | 0.0 | k/mcl | (missing) | | NRBC(10*3/UL | 00:22 | Health | | | | | ) IN BLOOD | | System - | | | | | BY AUTOMATED | | [facility] | | | | | COUNT | | | | | | + + + + + + + | IMMATURE | 2021-12-18 | [facility] | 0.03 | k/mcl | (missing) | | GRANULOCYTE | 00:22 | Health | | | | | (ABS) | | System - | | | | | | | [facility] | | | | + + + + + + + | IMMATURE | 2021-12-18 | [facility] | 0.03 | k/mcl | (missing) | | GRANULOCYTE | 00:22 | Health | | | | | (ABS) | | System - | | | | | | | [facility] | | | | + + + + + + + | BASOPHILS | 2021-12-18 | [facility] | 0.1 | k/mcl | (missing) | | (10*3/UL) IN | 00:22 | Health | | | | | BLOOD BY | | System - | | | | | AUTOMATED | | [facility] | | | | | COUNT | | | | | | + + + + + + + | EOSINOPHILS | 2021-12-18 | [facility] | 0.1 | k/mcl | (missing) | | (10*3/UL) | 00:22 | Health | | | | | IN BLOOD BY | | System - | | | | | AUTOMATED | | [facility] | | | | | COUNT | | | | | | + + + + + + + | BASOPHILS | 2021-12-18 | [facility] | 0.1 | k/mcl | (missing) | | (10*3/UL) IN | 00:22 | Health | | | | | BLOOD BY | | System - | | | | | AUTOMATED | | [facility] | | | | | COUNT | | | | | | + + + + + + + | EOSINOPHILS | 2021-12-18 | [facility] | 0.1 | k/mcl | (missing) | | (10*3/UL) | 00:22 | Health | | | | | IN BLOOD BY | | System - | | | | | AUTOMATED | | [facility] | | | | | COUNT | | | | | | + + + + + + + | IMMATURE | 2021-12-18 | [facility] | 0.2 | % | (missing) | | GRANULOCYTE | 00:22 | Health | | | | | % (AUTO) | | System - | | | | | | | [facility] | | | | + + + + + + + | IMMATURE | 2021-12-18 | [facility] | 0.2 | % | (missing) | | GRANULOCYTE | 00:22 | Health | | | | | % (AUTO) | | System - | | | | | | | [facility] | | | | + + + + + + + | | 2021-12-18 | [facility] | 0.4 | % | (missing) | | BASOPHILS/10 | 00:22 | Health | | | | | 0 LEUKOCYTES | | System - | | | | | IN BLOOD BY | | [facility] | | | | | AUTOMATED | | | | | | | COUNT | | | | | | + + + + + + + | | 2021-12-18 | [facility] | 0.4 | % | (missing) | | BASOPHILS/10 | 00:22 | Health | | | | | 0 LEUKOCYTES | | System - | | | | | IN BLOOD BY | | [facility] | | | | | AUTOMATED | | | | | | | COUNT | | | | | | + + + + + + + | BILIRUBIN | 2021-12-18 | [facility] | 0.4 | mg/dl | (missing) | | TOTAL | 00:22 | Health | | | | | (MG/DL) IN | | System - | | | | | SER/PLAS | | [facility] | | | | + + + + + + + | BILIRUBIN | 2021-12-18 | [facility] | 0.4 | mg/dl | (missing) | | TOTAL | 00:22 | Health | | | | | (MG/DL) IN | | System - | | | | | SER/PLAS | | [facility] | | | | + + + + + + + | | 2021-12-18 | [facility] | 0.6 | % | (missing) | | EOSINOPHILS/ | 00:22 | Health | | | | | 100 | | System - | | | | | LEUKOCYTES | | [facility] | | | | | IN BLOOD BY | | | | | | | AUTOMATED | | | | | | | COUNT | | | | | | + + + + + + + | | 2021-12-18 | [facility] | 0.6 | % | (missing) | | EOSINOPHILS/ | 00:22 | Health | | | | | 100 | | System - | | | | | LEUKOCYTES | | [facility] | | | | | IN BLOOD BY | | | | | | | AUTOMATED | | | | | | | COUNT | | | | | | + + + + + + + | MONOCYTES | 2021-12-18 | [facility] | 0.8 | k/mcl | (missing) | | (10*3/UL) IN | 00:22 | Health | | | | | BLOOD BY | | System - | | | | | AUTOMATED | | [facility] | | | | | COUNT | | | | | | + + + + + + + | MONOCYTES | 2021-12-18 | [facility] | 0.8 | k/mcl | (missing) | | (10*3/UL) IN | 00:22 | Health | | | | | BLOOD BY | | System - | | | | | AUTOMATED | | [facility] | | | | | COUNT | | | | | | + + + + + + + | CREATININE | 2021-12-18 | [facility] | 0.9 | mg/dl | (missing) | | (MG/DL) IN | 00:22 | Health | | | | | SER/PLAS | | System - | | | | | | | [facility] | | | | + + + + + + + | CREATININE | 2021-12-18 | [facility] | 0.9 | mg/dl | (missing) | | (MG/DL) IN | 00:22 | Health | | | | | SER/PLAS | | System - | | | | | | | [facility] | | | | + + + + + + + | SPECIFIC | 2021-12-18 | [facility] | 1.033 | (missing) | (missing) | | GRAVITY OF | 00: | Health | | | | | URINE BY | | System - | | | | | AUTOMATED | | [facility] | | | | | TEST STRIP | | | | | | + + + + + + + | SPECIFIC | 2021-12-18 | [facility] | 1.033 | (missing) | (missing) | | GRAVITY OF | 00:22 | Health | | | | | URINE BY | | System - | | | | | AUTOMATED | | [facility] | | | | | TEST STRIP | | | | | | + + + + + + + | GLUCOSE, | 2021-12-18 | [facility] | 106 | mg/dl | (missing) | | RANDOM | 00:22 | Health | | | | | (MG/DL) IN | | System - | | | | | SER/PLAS | | [facility] | | | | + + + + + + + | GLUCOSE, | 2021-12-18 | [facility] | 106 | mg/dl | (missing) | | RANDOM | 00:22 | Health | | | | | (MG/DL) IN | | System - | | | | | SER/PLAS | | [facility] | | | | + + + + + + + | CHLORIDE | 2021-12-18 | [facility] | 107 | mmol/l | (missing) | | (MMOL/L) IN | 00:22 | Health | | | | | SER/PLAS | | System - | | | | | | | [facility] | | | | + + + + + + + | CHLORIDE | 2021-12-18 | [facility] | 107 | mmol/l | (missing) | | (MMOL/L) IN | 00:22 | Health | | | | | SER/PLAS | | System - | | | | | | | [facility] | | | | + + + + + + + | BLOOD UREA | 2021-12-18 | [facility] | 12 | mg/dl | (missing) | | NITROGEN | 00:22 | Health | | | | | (BUN) | | System - | | | | | (MG/DL) IN | | [facility] | | | | | SER/PLAS | | | | | | + + + + + + + | BLOOD UREA | 2021-12-18 | [facility] | 12 | mg/dl | (missing) | | NITROGEN | 00:22 | Health | | | | | (BUN) | | System - | | | | | (MG/DL) IN | | [facility] | | | | | SER/PLAS | | | | | | + + + + + + + | ERYTHROCYTE | 2021-12-18 | [facility] | 12.5 | % | (missing) | | | 00:22 | Health | | | | | DISTRIBUTION | | System - | | | | | WIDTH | | [facility] | | | | | (RATIO) BY | | | | | | | AUTOMATED | | | | | | | COUNT | | | | | | + + + + + + + | ERYTHROCYTE | 2021-12-18 | [facility] | 12.5 | % | (missing) | | | 00:22 | Health | | | | | DISTRIBUTION | | System - | | | | | WIDTH | | [facility] | | | | | (RATIO) BY | | | | | | | AUTOMATED | | | | | | | COUNT | | | | | | + + + + + + + | | 2021-12-18 | [facility] | 12.7 | k/mcl | (missing) | | LEUKOCYTES(1 | 00:22 | Health | | | | | 0*3/UL) IN | | System - | | | | | BLOOD BY | | [facility] | | | | | AUTOMATED | | | | | | | COUNT | | | | | | + + + + + + + | | 2021-12-18 | [facility] | 12.7 | k/mcl | (missing) | | LEUKOCYTES(1 | 00:22 | Health | | | | | 0*3/UL) IN | | System - | | | | | BLOOD BY | | [facility] | | | | | AUTOMATED | | | | | | | COUNT | | | | | | + + + + + + + | HEMOGLOBIN | 2021-12-18 | [facility] | 14.5 | g/dl | (missing) | | (G/DL) IN | 00:22 | Health | | | | | BLOOD | | System - | | | | | | | [facility] | | | | + + + + + + + | HEMOGLOBIN | 2021-12-18 | [facility] | 14.5 | g/dl | (missing) | | (G/DL) IN | 00:22 | Health | | | | | BLOOD | | System - | | | | | | | [facility] | | | | + + + + + + + | SODIUM | 2021-12-18 | [facility] | 140 | mmol/l | (missing) | | (MMOL/L) IN | 00:22 | Health | | | | | SER/PLAS | | System - | | | | | | | [facility] | | | | + + + + + + + | SODIUM | 2021-12-18 | [facility] | 140 | mmol/l | (missing) | | (MMOL/L) IN | 00:22 | Health | | | | | SER/PLAS | | System - | | | | | | | [facility] | | | | + + + + + + + | SQUAMOUS | 2021-12-18 | [facility] | 15 | /hpf | (missing) | | EPITHELIAL | 00:22 | Health | | | | | CELLS | | System - | | | | | (#/HPF) IN | | [facility] | | | | | URINE | | | | | | | SEDIMENT | | | | | | + + + + + + + | SQUAMOUS | 2021-12-18 | [facility] | 15 | /hpf | (missing) | | EPITHELIAL | 00:22 | Health | | | | | CELLS | | System - | | | | | (#/HPF) IN | | [facility] | | | | | URINE | | | | | | | SEDIMENT | | | | | | + + + + + + + | ANION GAP | 2021-12-18 | [facility] | 15.0 | mmol/l | (missing) | | IN SER/PLAS | 00:22 | Health | | | | | | | System - | | | | | | | [facility] | | | | + + + + + + + | ANION GAP | 2021-12-18 | [facility] | 15.0 | mmol/l | (missing) | | IN SER/PLAS | 00:22 | Health | | | | | | | System - | | | | | | | [facility] | | | | + + + + + + + | WBC | 2021-12-18 | [facility] | 18 | /hpf | (missing) | | (LEUKOCYTE) | 00:22 | Health | | | | | (#/HPF) IN | | System - | | | | | URINE | | [facility] | | | | | SEDIMENT | | | | | | + + + + + + + | WBC | 2021-12-18 | [facility] | 18 | /hpf | (missing) | | (LEUKOCYTE) | 00:22 | Health | | | | | (#/HPF) IN | | System - | | | | | URINE | | [facility] | | | | | SEDIMENT | | | | | | + + + + + + + | CARBON | 2021-12-18 | [facility] | 18 | mmol/l | (missing) | | DIOXIDE | 00:22 | Health | | | | | (CO2), TOTAL | | System - | | | | | (MMOL/L) IN | | [facility] | | | | | SER/PLAS | | | | | | + + + + + + + | CARBON | 2021-12-18 | [facility] | 18 | mmol/l | (missing) | | DIOXIDE | 00:22 | Health | | | | | (CO2), TOTAL | | System - | | | | | (MMOL/L) IN | | [facility] | | | | | SER/PLAS | | | | | | + + + + + + + | PROTEIN IN | 2021-12-18 | [facility] | 2 | (missing) | (missing) | | URINE BY | 00:22 | Health | | | | | TEST STRIP | | System - | | | | | | | [facility] | | | | + + + + + + + | PROTEIN IN | 2021-12-18 | [facility] | 2 | (missing) | (missing) | | URINE BY | 00:22 | Health | | | | | TEST STRIP | | System - | | | | | | | [facility] | | | | + + + + + + + | TSH | 2021-12-18 | [facility] | 2.61 | mciu/ml | (missing) | | (THYROTROPIN | 00:22 | Health | | | | | ) (UIU/ML) | | System - | | | | | IN SER/PLAS | | [facility] | | | | + + + + + + + | TSH | 2021-12-18 | [facility] | 2.61 | mciu/ml | (missing) | | (THYROTROPIN | 00:22 | Health | | | | | ) (UIU/ML) | | System - | | | | | IN SER/PLAS | | [facility] | | | | + + + + + + + | ASPARTATE | 2021-12-18 | [facility] | 20 | u/l | (missing) | | AMINOTRANSFE | 00:22 | Health | | | | | RASE (SGOT) | | System - | | | | | (U/L) IN | | [facility] | | | | | SER/PLAS | | | | | | + + + + + + + | ASPARTATE | 2021-12-18 | [facility] | 20 | u/l | (missing) | | AMINOTRANSFE | 00:22 | Health | | | | | RASE (SGOT) | | System - | | | | | (U/L) IN | | [facility] | | | | | SER/PLAS | | | | | | + + + + + + + | | 2021-12-18 | [facility] | 24.0 | % | (missing) | | LYMPHOCYTES/ | 00:22 | Health | | | | | 100 | | System - | | | | | LEUKOCYTES | | [facility] | | | | | IN BLOOD BY | | | | | | | AUTOMATED | | | | | | | COUNT | | | | | | + + + + + + + | | 2021-12-18 | [facility] | 24.0 | % | (missing) | | LYMPHOCYTES/ | 00:22 | Health | | | | | 100 | | System - | | | | | LEUKOCYTES | | [facility] | | | | | IN BLOOD BY | | | | | | | AUTOMATED | | | | | | | COUNT | | | | | | + + + + + + + | LEUKOCYTE | 2021-12-18 | [facility] | 3 | (missing) | (missing) | | ESTERASE | 00:22 | Health | | | | | PRESENCE IN | | System - | | | | | URINE BY | | [facility] | | | | | TEST STRIP | | | | | | + + + + + + + | LEUKOCYTE | 2021-12-18 | [facility] | 3 | (missing) | (missing) | | ESTERASE | 00:22 | Health | | | | | PRESENCE IN | | System - | | | | | URINE BY | | [facility] | | | | | TEST STRIP | | | | | | + + + + + + + | LYMPHOCYTES | 2021-12-18 | [facility] | 3.0 | k/mcl | (missing) | | (10*3/UL) | 00:22 | Health | | | | | IN BLOOD BY | | System - | | | | | AUTOMATED | | [facility] | | | | | COUNT | | | | | | + + + + + + + | LYMPHOCYTES | 2021-12-18 | [facility] | 3.0 | k/mcl | (missing) | | (10*3/UL) | 00:22 | Health | | | | | IN BLOOD BY | | System - | | | | | AUTOMATED | | [facility] | | | | | COUNT | | | | | | + + + + + + + | POTASSIUM | 2021-12-18 | [facility] | 3.4 | mmol/l | (missing) | | (MMOL/L) IN | 00:22 | Health | | | | | SER/PLAS | | System - | | | | | | | [facility] | | | | + + + + + + + | POTASSIUM | 2021-12-18 | [facility] | 3.4 | mmol/l | (missing) | | (MMOL/L) IN | 00:22 | Health | | | | | SER/PLAS | | System - | | | | | | | [facility] | | | | + + + + + + + | ERYTHROCYTE | 2021-12-18 | [facility] | 31.3 | pg | (missing) | | MEAN | 00:22 | Health | | | | | CORPUSCULAR | | System - | | | | | HEMOGLOBIN | | [facility] | | | | | (PG) BY | | | | | | | AUTOMATED | | | | | | | COUNT | | | | | | + + + + + + + | ERYTHROCYTE | 2021-12-18 | [facility] | 31.3 | pg | (missing) | | MEAN | 00:22 | Health | | | | | CORPUSCULAR | | System - | | | | | HEMOGLOBIN | | [facility] | | | | | (PG) BY | | | | | | | AUTOMATED | | | | | | | COUNT | | | | | | + + + + + + + | ERYTHROCYTE | 2021-12-18 | [facility] | 35.6 | g/dl | (missing) | | MEAN | 00:22 | Health | | | | | CORPUSCULAR | | System - | | | | | HEMOGLOBIN | | [facility] | | | | | CONCENTRATIO | | | | | | | N (G/DL) BY | | | | | | | AUTOMATED | | | | | | + + + + + + + | ERYTHROCYTE | 2021-12-18 | [facility] | 35.6 | g/dl | (missing) | | MEAN | 00:22 | Health | | | | | CORPUSCULAR | | System - | | | | | HEMOGLOBIN | | [facility] | | | | | CONCENTRATIO | | | | | | | N (G/DL) BY | | | | | | | AUTOMATED | | | | | | + + + + + + + | BACTERIA | 2021-12-18 | [facility] | 4 | /hpf | (missing) | | (#/HPF) IN | 00:22 | Health | | | | | URINE | | System - | | | | | | | [facility] | | | | + + + + + + + | BACTERIA | 2021-12-18 | [facility] | 4 | /hpf | (missing) | | (#/HPF) IN | 00:22 | Health | | | | | URINE | | System - | | | | | | | [facility] | | | | + + + + + + + | ALBUMIN | 2021-12-18 | [facility] | 4.4 | g/dl | (missing) | | (G/DL) IN | 00:22 | Health | | | | | SER/PLAS | | System - | | | | | | | [facility] | | | | + + + + + + + | ALBUMIN | 2021-12-18 | [facility] | 4.4 | g/dl | (missing) | | (G/DL) IN | 00:22 | Health | | | | | SER/PLAS | | System - | | | | | | | [facility] | | | | + + + + + + + | | 2021-12-18 | [facility] | 4.64 | m/mcl | (missing) | | ERYTHROCYTES | 00:22 | Health | | | | | (10*6/UL) | | System - | | | | | IN BLOOD BY | | [facility] | | | | | AUTOMATED | | | | | | | COUNT | | | | | | + + + + + + + | | 2021-12-18 | [facility] | 4.64 | m/mcl | (missing) | | ERYTHROCYTES | 00:22 | Health | | | | | (10*6/UL) | | System - | | | | | IN BLOOD BY | | [facility] | | | | | AUTOMATED | | | | | | | COUNT | | | | | | + + + + + + + | HEMATOCRIT | 2021-12-18 | [facility] | 40.7 | % | (missing) | | (%) IN BLOOD | 00:22 | Health | | | | | BY | | System - | | | | | AUTOMATED | | [facility] | | | | | COUNT | | | | | | + + + + + + + | HEMATOCRIT | 2021-12-18 | [facility] | 40.7 | % | (missing) | | (%) IN BLOOD | 00:22 | Health | | | | | BY | | System - | | | | | AUTOMATED | | [facility] | | | | | COUNT | | | | | | + + + + + + + | PLATELETS | 2021-12-18 | [facility] | 407 | k/mcl | (missing) | | (10*3/UL) IN | 00:22 | Health | | | | | BLOOD | | System - | | | | | AUTOMATED | | [facility] | | | | | COUNT | | | | | | + + + + + + + | PLATELETS | 2021-12-18 | [facility] | 407 | k/mcl | (missing) | | (10*3/UL) IN | 00:22 | Health | | | | | BLOOD | | System - | | | | | AUTOMATED | | [facility] | | | | | COUNT | | | | | | + + + + + + + | RBC (#/HPF) | 2021-12-18 | [facility] | 6 | /hpf | (missing) | | IN URINE | 00:22 | Health | | | | | SEDIMENT | | System - | | | | | | | [facility] | | | | + + + + + + + | RBC (#/HPF) | 2021-12-18 | [facility] | 6 | /hpf | (missing) | | IN URINE | 00:22 | Health | | | | | SEDIMENT | | System - | | | | | | | [facility] | | | | + + + + + + + | PH OF URINE | 2021-12-18 | [facility] | 6.5 | (missing) | (missing) | | | 00:22 | Health | | | | | | | System - | | | | | | | [facility] | | | | + + + + + + + | PH OF URINE | 2021-12-18 | [facility] | 6.5 | (missing) | (missing) | | | 00:22 | Health | | | | | | | System - | | | | | | | [facility] | | | | + + + + + + + | | 2021-12-18 | [facility] | 6.5 | % | (missing) | | MONOCYTES/10 | 00:22 | Health | | | | | 0 LEUKOCYTES | | System - | | | | | IN BLOOD BY | | [facility] | | | | | AUTOMATED | | | | | | | COUNT | | | | | | + + + + + + + | | 2021-12-18 | [facility] | 6.5 | % | (missing) | | MONOCYTES/10 | 00:22 | Health | | | | | 0 LEUKOCYTES | | System - | | | | | IN BLOOD BY | | [facility] | | | | | AUTOMATED | | | | | | | COUNT | | | | | | + + + + + + + | PROTEIN | 2021-12-18 | [facility] | 6.9 | g/dl | (missing) | | (G/DL) IN | 00:22 | Health | | | | | SER/PLAS | | System - | | | | | | | [facility] | | | | + + + + + + + | PROTEIN | 2021-12-18 | [facility] | 6.9 | g/dl | (missing) | | (G/DL) IN | 00:22 | Health | | | | | SER/PLAS | | System - | | | | | | | [facility] | | | | + + + + + + + | ALKALINE | 2021-12-18 | [facility] | 66 | u/l | (missing) | | PHOSPHATASE | 00:22 | Health | | | | | (U/L) IN | | System - | | | | | SER/PLAS | | [facility] | | | | + + + + + + + | ALKALINE | 2021-12-18 | [facility] | 66 | u/l | (missing) | | PHOSPHATASE | 00:22 | Health | | | | | (U/L) IN | | System - | | | | | SER/PLAS | | [facility] | | | | + + + + + + + | | 2021-12-18 | [facility] | 68.3 | % | (missing) | | NEUTROPHILS/ | 00:22 | Health | | | | | 100 | | System - | | | | | LEUKOCYTES | | [facility] | | | | | IN BLOOD BY | | | | | | | AUTOMATED | | | | | | | COUNT | | | | | | + + + + + + + | | 2021-12-18 | [facility] | 68.3 | % | (missing) | | NEUTROPHILS/ | 00:22 | Health | | | | | 100 | | System - | | | | | LEUKOCYTES | | [facility] | | | | | IN BLOOD BY | | | | | | | AUTOMATED | | | | | | | COUNT | | | | | | + + + + + + + | ALANINE | 2021-12-18 | [facility] | 8 | u/l | (missing) | | AMINOTRANSFE | 00:22 | Health | | | | | RASE (SGPT) | | System - | | | | | (U/L) IN | | [facility] | | | | | SER/PLAS | | | | | | + + + + + + + | ALANINE | 2021-12-18 | [facility] | 8 | u/l | (missing) | | AMINOTRANSFE | 00:22 | Health | | | | | RASE (SGPT) | | System - | | | | | (U/L) IN | | [facility] | | | | | SER/PLAS | | | | | | + + + + + + + | NEUTROPHILS | 2021-12-18 | [facility] | 8.7 | k/mcl | (missing) | | (10*3/UL) | 00:22 | Health | | | | | IN BLOOD BY | | System - | | | | | AUTOMATED | | [facility] | | | | | COUNT | | | | | | + + + + + + + | NEUTROPHILS | 2021-12-18 | [facility] | 8.7 | k/mcl | (missing) | | (10*3/UL) | 00:22 | Health | | | | | IN BLOOD BY | | System - | | | | | AUTOMATED | | [facility] | | | | | COUNT | | | | | | + + + + + + + | ERYTHROCYTE | 2021-12-18 | [facility] | 87.7 | fl | (missing) | | MEAN | 00:22 | Health | | | | | CORPUSCULAR | | System - | | | | | VOLUME (FL) | | [facility] | | | | | BY AUTOMATED | | | | | | | COUNT | | | | | | + + + + + + + | ERYTHROCYTE | 2021-12-18 | [facility] | 87.7 | fl | (missing) | | MEAN | 00:22 | Health | | | | | CORPUSCULAR | | System - | | | | | VOLUME (FL) | | [facility] | | | | | BY AUTOMATED | | | | | | | COUNT | | | | | | + + + + + + + | PLATELET | 2021-12-18 | [facility] | 9.4 | fl | (missing) | | MEAN VOLUME | 00:22 | Health | | | | | (FL) IN | | System - | | | | | BLOOD BY | | [facility] | | | | | AUTOMATED | | | | | | | COUNT | | | | | | + + + + + + + | PLATELET | 2021-12-18 | [facility] | 9.4 | fl | (missing) | | MEAN VOLUME | 00:22 | Health | | | | | (FL) IN | | System - | | | | | BLOOD BY | | [facility] | | | | | AUTOMATED | | | | | | | COUNT | | | | | | + + + + + + + | CALCIUM | 2021-12-18 | [facility] | 9.4 | mg/dl | (missing) | | (MG/DL) IN | 00:22 | Health | | | | | SER/PLAS | | System - | | | | | | | [facility] | | | | + + + + + + + | CALCIUM | 2021-12-18 | [facility] | 9.4 | mg/dl | (missing) | | (MG/DL) IN | 00:22 | Health | | | | | SER/PLAS | | System - | | | | | | | [facility] | | | | + + + + + + + | CLARITY OF | 2021-12-18 | [facility] | Hazy | (missing) | (missing) | | URINE | 00:22 | Health | | | | | | | System - | | | | | | | [facility] | | | | + + + + + + + | CLARITY OF | 2021-12-18 | [facility] | Hazy | (missing) | (missing) | | URINE | 00:22 | Health | | | | | | | System - | | | | | | | [facility] | | | | + + + + + + + | | 2021-12-18 | [facility] | Negative | (missing) | (missing) | | BARBITURATES | 00:22 | Health | | | | | PRESENCE IN | | System - | | | | | URINE BY | | [facility] | | | | | SCREEN | | | | | | | METHOD | | | | | | + + + + + + + | BILIRUBIN, | 2021-12-18 | [facility] | Negative | (missing) | (missing) | | TOTAL | 00:22 | Health | | | | | PRESENCE IN | | System - | | | | | URINE | | [facility] | | | | + + + + + + + | COCAINE | 2021-12-18 | [facility] | Negative | (missing) | (missing) | | (PRESENCE) | 00:22 | Health | | | | | IN URINE BY | | System - | | | | | SCREEN | | [facility] | | | | | METHOD | | | | | | + + + + + + + | GLUCOSE IN | 2021-12-18 | [facility] | Negative | (missing) | (missing) | | URINE | 00:22 | Health | | | | | | | System - | | | | | | | [facility] | | | | + + + + + + + | HEMOGLOBIN | 2021-12-18 | [facility] | Negative | (missing) | (missing) | | PRESENCE IN | 00:22 | Health | | | | | URINE | | System - | | | | | | | [facility] | | | | + + + + + + + | METHADONE | 2021-12-18 | [facility] | Negative | (missing) | (missing) | | ([facility]) | 00:22 | Health | | | | | IN URINE BY | | System - | | | | | SCREEN | | [facility] | | | | | METHOD | | | | | | + + + + + + + | NITRITE | 2021-12-18 | [facility] | Negative | (missing) | (missing) | | PRESENCE IN | 00:22 | Health | | | | | URINE | | System - | | | | | | | [facility] | | | | + + + + + + + | OPIATES | 2021-12-18 | [facility] | Negative | (missing) | (missing) | | ([facility]) | 00:22 | Health | | | | | IN URINE BY | | System - | | | | | SCREEN | | [facility] | | | | | METHOD | | | | | | + + + + + + + | OXYCODONE | 2021-12-18 | [facility] | Negative | (missing) | (missing) | | ([facility]) | 00:22 | Health | | | | | IN URINE BY | | System - | | | | | SCREEN | | [facility] | | | | | METHOD | | | | | | + + + + + + + | | 2021-12-18 | [facility] | Negative | (missing) | (missing) | | PHENCYCLIDIN | 00:22 | Health | | | | | E ([facility]) | | System - | | | | | IN URINE BY | | [facility] | | | | | SCREEN | | | | | | | METHOD | | | | | | + + + + + + + | THC | 2021-12-18 | [facility] | Negative | (missing) | (missing) | | (CANNABINOID | 00:22 | Health | | | | | ) IN URINE | | System - | | | | | BY SCREEN | | [facility] | | | | | METHOD | | | | | | + + + + + + + | TRICYCLIC | 2021-12-18 | [facility] | Negative | (missing) | (missing) | | ANTIDEPRESSA | 00:22 | Health | | | | | NTS | | System - | | | | | ([facility]) | | [facility] | | | | | IN URINE | | | | | | + + + + + + + | | 2021-12-18 | [facility] | Negative | (missing) | (missing) | | PHENCYCLIDIN | 00:22 | Health | | | | | E ([facility]) | | System - | | | | | IN URINE BY | | [facility] | | | | | SCREEN | | | | | | | METHOD | | | | | | + + + + + + + | THC | 2021-12-18 | [facility] | Negative | (missing) | (missing) | | (CANNABINOID | 00:22 | Health | | | | | ) IN URINE | | System - | | | | | BY SCREEN | | [facility] | | | | | METHOD | | | | | | + + + + + + + | OPIATES | 2021-12-18 | [facility] | Negative | (missing) | (missing) | | ([facility]) | 00:22 | Health | | | | | IN URINE BY | | System - | | | | | SCREEN | | [facility] | | | | | METHOD | | | | | | + + + + + + + | TRICYCLIC | 2021-12-18 | [facility] | Negative | (missing) | (missing) | | ANTIDEPRESSA | 00:22 | Health | | | | | NTS | | System - | | | | | ([facility]) | | [facility] | | | | | IN URINE | | | | | | + + + + + + + | OXYCODONE | 2021-12-18 | [facility] | Negative | (missing) | (missing) | | ([facility]) | 00:22 | Health | | | | | IN URINE BY | | System - | | | | | SCREEN | | [facility] | | | | | METHOD | | | | | | + + + + + + + | BILIRUBIN, | 2021-12-18 | [facility] | Negative | (missing) | (missing) | | TOTAL | 00:22 | Health | | | | | [facility] IN | | System - | | | | | URINE | | [facility] | | | | + + + + + + + | BHCG QUAL | 2021-12-18 | [facility] | Negative | (missing) | (missing) | | (CHORIOGONAD | 00:22 | Health | | | | | OTROPIN) IN | | System - | | | | | SER/PLAS | | [facility] | | | | + + + + + + + | GLUCOSE IN | 2021-12-18 | [facility] | Negative | (missing) | (missing) | | URINE | 00:22 | Health | | | | | | | System - | | | | | | | [facility] | | | | + + + + + + + | COCAINE | 2021-12-18 | [facility] | Negative | (missing) | (missing) | | ([facility]) | 00:22 | Health | | | | | IN URINE BY | | System - | | | | | SCREEN | | [facility] | | | | | METHOD | | | | | | + + + + + + + | NITRITE | 2021-12-18 | [facility] | Negative | (missing) | (missing) | | [facility] IN | 00:22 | Health | | | | | URINE | | System - | | | | | | | [facility] | | | | + + + + + + + | | 2021-12-18 | [facility] | Negative | (missing) | (missing) | | BARBITURATES | 00:22 | Health | | | | | [facility] IN | | System - | | | | | URINE BY | | [facility] | | | | | SCREEN | | | | | | | METHOD | | | | | | + + + + + + + | METHADONE | 2021-12-18 | [facility] | Negative | (missing) | (missing) | | ([facility]) | 00:22 | Health | | | | | IN URINE BY | | System - | | | | | SCREEN | | [facility] | | | | | METHOD | | | | | | + + + + + + + | HEMOGLOBIN | 2021-12-18 | [facility] | Negative | (missing) | (missing) | | [facility] IN | 00:22 | Health | | | | | URINE | | System - | | | | | | | [facility] | | | | + + + + + + + | BHCG QUAL | 2021-12-18 | [facility] | Negative | (missing) | (missing) | | (CHORIOGONAD | 00:22 | Health | | | | | OTROPIN) IN | | System - | | | | | SER/PLAS | | [facility] | | | | + + + + + + + | | 2021-12-18 | [facility] | Normal | mg/dl | (missing) | | UROBILINOGEN | 00:22 | Health | | | | | (MG/DL) IN | | System - | | | | | URINE BY | | [facility] | | | | | TEST STRIP | | | | | | + + + + + + + | | 2021-12-18 | [facility] | Normal | mg/dl | (missing) | | UROBILINOGEN | 00:22 | Health | | | | | (MG/DL) IN | | System - | | | | | URINE BY | | [facility] | | | | | TEST STRIP | | | | | | + + + + + + + | | 2021-12-18 | [facility] | Presumptive | (missing) | (missing) | | BENZODIAZEPI | 00:22 | Health | Positive | | | | SURYA | | System - | | | | | ([facility]) | | [facility] | | | | | IN URINE BY | | | | | | | SCREEN | | | | | | | METHOD | | | | | | + + + + + + + | | 2021-12-18 | [facility] | Presumptive | (missing) | (missing) | | METHAMPHETAM | 00:22 | Health | Positive | | | | INE | | System - | | | | | ([facility]) | | [facility] | | | | | IN URINE BY | | | | | | | SCREEN | | | | | | | METHOD | | | | | | + + + + + + + | AMPHETAMINE | 2021-12-18 | [facility] | Presumptive | (missing) | (missing) | | ([facility]) | 00:22 | Health | Positive | | | | IN URINE BY | | System - | | | | | SCREEN | | [facility] | | | | | METHOD | | | | | | + + + + + + + | | 2021-12-18 | [facility] | Presumptive | (missing) | (missing) | | METHAMPHETAM | 00:22 | Health | Positive | | | | INE | | System - | | | | | ([facility]) | | [facility] | | | | | IN URINE BY | | | | | | | SCREEN | | | | | | | METHOD | | | | | | + + + + + + + | | 2021-12-18 | [facility] | Presumptive | (missing) | (missing) | | BENZODIAZEPI | 00:22 | Health | Positive | | | | SURYA | | System - | | | | | ([facility]) | | [facility] | | | | | IN URINE BY | | | | | | | SCREEN | | | | | | | METHOD | | | | | | + + + + + + + | AMPHETAMINE | 2021-12-18 | [facility] | Presumptive | (missing) | (missing) | | ([facility]) | 00:22 | Health | Positive | | | | IN URINE BY | | System - | | | | | SCREEN | | [facility] | | | | | METHOD | | | | | | + + + + + + + | KETONES IN | 2021-12-18 | [facility] | Trace | (missing) | (missing) | | URINE | 00:22 | Health | | | | | | | System - | | | | | | | [facility] | | | | + + + + + + + | MUCUS | 2021-12-18 | [facility] | Trace | (missing) | (missing) | | (#/HPF) IN | 00:22 | Health | | | | | URINE | | System - | | | | | SEDIMENT | | [facility] | | | | + + + + + + + | MUCUS | 2021-12-18 | [facility] | Trace | (missing) | (missing) | | (#/HPF) IN | 00:22 | Health | | | | | URINE | | System - | | | | | SEDIMENT | | [facility] | | | | + + + + + + + | KETONES IN | 2021-12-18 | [facility] | Trace | (missing) | (missing) | | URINE | 00:22 | Health | | | | | | | System - | | | | | | | [facility] | | | | + + + + + + + | COLOR OF | 2021-12-18 | [facility] | Yellow | (missing) | (missing) | | URINE | 00:22 | Health | | | | | | | System - | | | | | | | [facility] | | | | + + + + + + + | COLOR OF | 2021-12-18 | [facility] | Yellow | (missing) | (missing) | | URINE | 00:22 | Health | | | | | | | System - | | | | | | | [facility] | | | | + + + + + + + + + | Result panel 57 | + + + + + +--------+ + + | EGFR | 2021-12-21 | [facility] | > | | (missing) | | (GLOMERULAR | 12:00 | Health | | ml/min/1.73m | | | FILTRATION | | System - | | ? | | | RATE) | | [facility] | | | | | ML/MIN/1.73 | | | | | | | SQ M. | | | | | | + + + +--------+ + + | EGFR | 2021-12-21 | [facility] | > | | (missing) | | (GLOMERULAR | 12:00 | Health | | ml/min/1.73m | | | FILTRATION | | System - | | ? | | | RATE) | | [facility] | | | | | ML/MIN/1.73 | | | | | | | SQ M. | | | | | | + + + +--------+ + + | BILIRUBIN | 2021-12-21 | [facility] | < | mg/dl | (missing) | | TOTAL | 12:00 | Health | | | | | (MG/DL) IN | | System - | | | | | SER/PLAS | | [facility] | | | | + + + +--------+ + + | BILIRUBIN | 2021-12-21 | [facility] | < | mg/dl | (missing) | | TOTAL | 12:00 | Health | | | | | (MG/DL) IN | | System - | | | | | SER/PLAS | | [facility] | | | | + + + +--------+ + + | NRBC/100 | 2021-12-21 | [facility] | 0.0 | % | (missing) | | WBCS BY | 12:00 | Health | | | | | AUTOMATED | | System - | | | | | COUNT | | [facility] | | | | + + + +--------+ + + | NRBC/100 | 2021-12-21 | [facility] | 0.0 | % | (missing) | | WBCS BY | 12:00 | Health | | | | | AUTOMATED | | System - | | | | | COUNT | | [facility] | | | | + + + +--------+ + + | BASOPHILS | 2021-12-21 | [facility] | 0.0 | k/mcl | (missing) | | (10*3/UL) IN | 12:00 | Health | | | | | BLOOD BY | | System - | | | | | AUTOMATED | | [facility] | | | | | COUNT | | | | | | + + + +--------+ + + | | 2021-12-21 | [facility] | 0.0 | k/mcl | (missing) | | NRBC(10*3/UL | 12:00 | Health | | | | | ) IN BLOOD | | System - | | | | | BY AUTOMATED | | [facility] | | | | | COUNT | | | | | | + + + +--------+ + + | BASOPHILS | 2021-12-21 | [facility] | 0.0 | k/mcl | (missing) | | (10*3/UL) IN | 12:00 | Health | | | | | BLOOD BY | | System - | | | | | AUTOMATED | | [facility] | | | | | COUNT | | | | | | + + + +--------+ + + | | 2021-12-21 | [facility] | 0.0 | k/mcl | (missing) | | NRBC(10*3/UL | 12:00 | Health | | | | | ) IN BLOOD | | System - | | | | | BY AUTOMATED | | [facility] | | | | | COUNT | | | | | | + + + +--------+ + + | IMMATURE | 2021-12-21 | [facility] | 0.04 | k/mcl | (missing) | | GRANULOCYTE | 12:00 | Health | | | | | (ABS) | | System - | | | | | | | [facility] | | | | + + + +--------+ + + | IMMATURE | 2021-12-21 | [facility] | 0.04 | k/mcl | (missing) | | GRANULOCYTE | 12:00 | Health | | | | | (ABS) | | System - | | | | | | | [facility] | | | | + + + +--------+ + + | EOSINOPHILS | 2021-12-21 | [facility] | 0.2 | k/mcl | (missing) | | (10*3/UL) | 12:00 | Health | | | | | IN BLOOD BY | | System - | | | | | AUTOMATED | | [facility] | | | | | COUNT | | | | | | + + + +--------+ + + | EOSINOPHILS | 2021-12-21 | [facility] | 0.2 | k/mcl | (missing) | | (10*3/UL) | 12:00 | Health | | | | | IN BLOOD BY | | System - | | | | | AUTOMATED | | [facility] | | | | | COUNT | | | | | | + + + +--------+ + + | IMMATURE | 2021-12-21 | [facility] | 0.4 | % | (missing) | | GRANULOCYTE | 12:00 | Health | | | | | % (AUTO) | | System - | | | | | | | [facility] | | | | + + + +--------+ + + | | 2021-12-21 | [facility] | 0.4 | % | (missing) | | BASOPHILS/10 | 12:00 | Health | | | | | 0 LEUKOCYTES | | System - | | | | | IN BLOOD BY | | [facility] | | | | | AUTOMATED | | | | | | | COUNT | | | | | | + + + +--------+ + + | | 2021-12-21 | [facility] | 0.4 | % | (missing) | | BASOPHILS/10 | 12:00 | Health | | | | | 0 LEUKOCYTES | | System - | | | | | IN BLOOD BY | | [facility] | | | | | AUTOMATED | | | | | | | COUNT | | | | | | + + + +--------+ + + | IMMATURE | 2021-12-21 | [facility] | 0.4 | % | (missing) | | GRANULOCYTE | 12:00 | Health | | | | | % (AUTO) | | System - | | | | | | | [facility] | | | | + + + +--------+ + + | MONOCYTES | 2021-12-21 | [facility] | 0.7 | k/mcl | (missing) | | (10*3/UL) IN | 12:00 | Health | | | | | BLOOD BY | | System - | | | | | AUTOMATED | | [facility] | | | | | COUNT | | | | | | + + + +--------+ + + | MONOCYTES | 2021-12-21 | [facility] | 0.7 | k/mcl | (missing) | | (10*3/UL) IN | 12:00 | Health | | | | | BLOOD BY | | System - | | | | | AUTOMATED | | [facility] | | | | | COUNT | | | | | | + + + +--------+ + + | CREATININE | 2021-12-21 | [facility] | 0.8 | mg/dl | (missing) | | (MG/DL) IN | 12:00 | Health | | | | | SER/PLAS | | System - | | | | | | | [facility] | | | | + + + +--------+ + + | CREATININE | 2021-12-21 | [facility] | 0.8 | mg/dl | (missing) | | (MG/DL) IN | 12:00 | Health | | | | | SER/PLAS | | System - | | | | | | | [facility] | | | | + + + +--------+ + + | | 2021-12-21 | [facility] | 1.6 | % | (missing) | | EOSINOPHILS/ | 12:00 | Health | | | | | 100 | | System - | | | | | LEUKOCYTES | | [facility] | | | | | IN BLOOD BY | | | | | | | AUTOMATED | | | | | | | COUNT | | | | | | + + + +--------+ + + | | 2021-12-21 | [facility] | 1.6 | % | (missing) | | EOSINOPHILS/ | 12:00 | Health | | | | | 100 | | System - | | | | | LEUKOCYTES | | [facility] | | | | | IN BLOOD BY | | | | | | | AUTOMATED | | | | | | | COUNT | | | | | | + + + +--------+ + + | CHLORIDE | 2021-12-21 | [facility] | 109 | mmol/l | (missing) | | (MMOL/L) IN | 12:00 | Health | | | | | SER/PLAS | | System - | | | | | | | [facility] | | | | + + + +--------+ + + | CHLORIDE | 2021-12-21 | [facility] | 109 | mmol/l | (missing) | | (MMOL/L) IN | 12:00 | Health | | | | | SER/PLAS | | System - | | | | | | | [facility] | | | | + + + +--------+ + + | BLOOD UREA | 2021-12-21 | [facility] | 11 | mg/dl | (missing) | | NITROGEN | 12:00 | Health | | | | | (BUN) | | System - | | | | | (MG/DL) IN | | [facility] | | | | | SER/PLAS | | | | | | + + + +--------+ + + | BLOOD UREA | 2021-12-21 | [facility] | 11 | mg/dl | (missing) | | NITROGEN | 12:00 | Health | | | | | (BUN) | | System - | | | | | (MG/DL) IN | | [facility] | | | | | SER/PLAS | | | | | | + + + +--------+ + + | | 2021-12-21 | [facility] | 11.3 | k/mcl | (missing) | | LEUKOCYTES(1 | 12:00 | Health | | | | | 0*3/UL) IN | | System - | | | | | BLOOD BY | | [facility] | | | | | AUTOMATED | | | | | | | COUNT | | | | | | + + + +--------+ + + | | 2021-12-21 | [facility] | 11.3 | k/mcl | (missing) | | LEUKOCYTES(1 | 12:00 | Health | | | | | 0*3/UL) IN | | System - | | | | | BLOOD BY | | [facility] | | | | | AUTOMATED | | | | | | | COUNT | | | | | | + + + +--------+ + + | ERYTHROCYTE | 2021-12-21 | [facility] | 12.1 | % | (missing) | | | 12:00 | Health | | | | | DISTRIBUTION | | System - | | | | | WIDTH | | [facility] | | | | | (RATIO) BY | | | | | | | AUTOMATED | | | | | | | COUNT | | | | | | + + + +--------+ + + | ERYTHROCYTE | 2021-12-21 | [facility] | 12.1 | % | (missing) | | | 12:00 | Health | | | | | DISTRIBUTION | | System - | | | | | WIDTH | | [facility] | | | | | (RATIO) BY | | | | | | | AUTOMATED | | | | | | | COUNT | | | | | | + + + +--------+ + + | SODIUM | 2021-12-21 | [facility] | 137 | mmol/l | (missing) | | (MMOL/L) IN | 12:00 | Health | | | | | SER/PLAS | | System - | | | | | | | [facility] | | | | + + + +--------+ + + | SODIUM | 2021-12-21 | [facility] | 137 | mmol/l | (missing) | | (MMOL/L) IN | 12:00 | Health | | | | | SER/PLAS | | System - | | | | | | | [facility] | | | | + + + +--------+ + + | HEMOGLOBIN | 2021-12-21 | [facility] | 14.1 | g/dl | (missing) | | (G/DL) IN | 12:00 | Health | | | | | BLOOD | | System - | | | | | | | [facility] | | | | + + + +--------+ + + | HEMOGLOBIN | 2021-12-21 | [facility] | 14.1 | g/dl | (missing) | | (G/DL) IN | 12:00 | Health | | | | | BLOOD | | System - | | | | | | | [facility] | | | | + + + +--------+ + + | ALANINE | 2021-12-21 | [facility] | 17 | u/l | (missing) | | AMINOTRANSFE | 12:00 | Health | | | | | RASE (SGPT) | | System - | | | | | (U/L) IN | | [facility] | | | | | SER/PLAS | | | | | | + + + +--------+ + + | ALANINE | 2021-12-21 | [facility] | 17 | u/l | (missing) | | AMINOTRANSFE | 12:00 | Health | | | | | RASE (SGPT) | | System - | | | | | (U/L) IN | | [facility] | | | | | SER/PLAS | | | | | | + + + +--------+ + + | ASPARTATE | 2021-12-21 | [facility] | 18 | u/l | (missing) | | AMINOTRANSFE | 12:00 | Health | | | | | RASE (SGOT) | | System - | | | | | (U/L) IN | | [facility] | | | | | SER/PLAS | | | | | | + + + +--------+ + + | ASPARTATE | 2021-12-21 | [facility] | 18 | u/l | (missing) | | AMINOTRANSFE | 12:00 | Health | | | | | RASE (SGOT) | | System - | | | | | (U/L) IN | | [facility] | | | | | SER/PLAS | | | | | | + + + +--------+ + + | LYMPHOCYTES | 2021-12-21 | [facility] | 2.9 | k/mcl | (missing) | | (10*3/UL) | 12:00 | Health | | | | | IN BLOOD BY | | System - | | | | | AUTOMATED | | [facility] | | | | | COUNT | | | | | | + + + +--------+ + + | LYMPHOCYTES | 2021-12-21 | [facility] | 2.9 | k/mcl | (missing) | | (10*3/UL) | 12:00 | Health | | | | | IN BLOOD BY | | System - | | | | | AUTOMATED | | [facility] | | | | | COUNT | | | | | | + + + +--------+ + + | CARBON | 2021-12-21 | [facility] | 20 | mmol/l | (missing) | | DIOXIDE | 12:00 | Health | | | | | (CO2), TOTAL | | System - | | | | | (MMOL/L) IN | | [facility] | | | | | SER/PLAS | | | | | | + + + +--------+ + + | CARBON | 2021-12-21 | [facility] | 20 | mmol/l | (missing) | | DIOXIDE | 12:00 | Health | | | | | (CO2), TOTAL | | System - | | | | | (MMOL/L) IN | | [facility] | | | | | SER/PLAS | | | | | | + + + +--------+ + + | | 2021-12-21 | [facility] | 25.6 | % | (missing) | | LYMPHOCYTES/ | 12:00 | Health | | | | | 100 | | System - | | | | | LEUKOCYTES | | [facility] | | | | | IN BLOOD BY | | | | | | | AUTOMATED | | | | | | | COUNT | | | | | | + + + +--------+ + + | | 2021-12-21 | [facility] | 25.6 | % | (missing) | | LYMPHOCYTES/ | 12:00 | Health | | | | | 100 | | System - | | | | | LEUKOCYTES | | [facility] | | | | | IN BLOOD BY | | | | | | | AUTOMATED | | | | | | | COUNT | | | | | | + + + +--------+ + + | POTASSIUM | 2021-12-21 | [facility] | 3.4 | mmol/l | (missing) | | (MMOL/L) IN | 12:00 | Health | | | | | SER/PLAS | | System - | | | | | | | [facility] | | | | + + + +--------+ + + | POTASSIUM | 2021-12-21 | [facility] | 3.4 | mmol/l | (missing) | | (MMOL/L) IN | 12:00 | Health | | | | | SER/PLAS | | System - | | | | | | | [facility] | | | | + + + +--------+ + + | ALBUMIN | 2021-12-21 | [facility] | 3.8 | g/dl | (missing) | | (G/DL) IN | 12:00 | Health | | | | | SER/PLAS | | System - | | | | | | | [facility] | | | | + + + +--------+ + + | ALBUMIN | 2021-12-21 | [facility] | 3.8 | g/dl | (missing) | | (G/DL) IN | 12:00 | Health | | | | | SER/PLAS | | System - | | | | | | | [facility] | | | | + + + +--------+ + + | ERYTHROCYTE | 2021-12-21 | [facility] | 30.2 | pg | (missing) | | MEAN | 12:00 | Health | | | | | CORPUSCULAR | | System - | | | | | HEMOGLOBIN | | [facility] | | | | | (PG) BY | | | | | | | AUTOMATED | | | | | | | COUNT | | | | | | + + + +--------+ + + | ERYTHROCYTE | 2021-12-21 | [facility] | 30.2 | pg | (missing) | | MEAN | 12:00 | Health | | | | | CORPUSCULAR | | System - | | | | | HEMOGLOBIN | | [facility] | | | | | (PG) BY | | | | | | | AUTOMATED | | | | | | | COUNT | | | | | | + + + +--------+ + + | ERYTHROCYTE | 2021-12-21 | [facility] | 32.4 | g/dl | (missing) | | MEAN | 12:00 | Health | | | | | CORPUSCULAR | | System - | | | | | HEMOGLOBIN | | [facility] | | | | | CONCENTRATIO | | | | | | | N (G/DL) BY | | | | | | | AUTOMATED | | | | | | + + + +--------+ + + | ERYTHROCYTE | 2021-12-21 | [facility] | 32.4 | g/dl | (missing) | | MEAN | 12:00 | Health | | | | | CORPUSCULAR | | System - | | | | | HEMOGLOBIN | | [facility] | | | | | CONCENTRATIO | | | | | | | N (G/DL) BY | | | | | | | AUTOMATED | | | | | | + + + +--------+ + + | PLATELETS | 2021-12-21 | [facility] | 328 | k/mcl | (missing) | | (10*3/UL) IN | 12:00 | Health | | | | | BLOOD | | System - | | | | | AUTOMATED | | [facility] | | | | | COUNT | | | | | | + + + +--------+ + + | PLATELETS | 2021-12-21 | [facility] | 328 | k/mcl | (missing) | | (10*3/UL) IN | 12:00 | Health | | | | | BLOOD | | System - | | | | | AUTOMATED | | [facility] | | | | | COUNT | | | | | | + + + +--------+ + + | | 2021-12-21 | [facility] | 4.67 | m/mcl | (missing) | | ERYTHROCYTES | 12:00 | Health | | | | | (10*6/UL) | | System - | | | | | IN BLOOD BY | | [facility] | | | | | AUTOMATED | | | | | | | COUNT | | | | | | + + + +--------+ + + | | 2021-12-21 | [facility] | 4.67 | m/mcl | (missing) | | ERYTHROCYTES | 12:00 | Health | | | | | (10*6/UL) | | System - | | | | | IN BLOOD BY | | [facility] | | | | | AUTOMATED | | | | | | | COUNT | | | | | | + + + +--------+ + + | HEMATOCRIT | 2021-12-21 | [facility] | 43.5 | % | (missing) | | (%) IN BLOOD | 12:00 | Health | | | | | BY | | System - | | | | | AUTOMATED | | [facility] | | | | | COUNT | | | | | | + + + +--------+ + + | HEMATOCRIT | 2021-12-21 | [facility] | 43.5 | % | (missing) | | (%) IN BLOOD | 12:00 | Health | | | | | BY | | System - | | | | | AUTOMATED | | [facility] | | | | | COUNT | | | | | | + + + +--------+ + + | ALKALINE | 2021-12-21 | [facility] | 57 | u/l | (missing) | | PHOSPHATASE | 12:00 | Health | | | | | (U/L) IN | | System - | | | | | SER/PLAS | | [facility] | | | | + + + +--------+ + + | ALKALINE | 2021-12-21 | [facility] | 57 | u/l | (missing) | | PHOSPHATASE | 12:00 | Health | | | | | (U/L) IN | | System - | | | | | SER/PLAS | | [facility] | | | | + + + +--------+ + + | | 2021-12-21 | [facility] | 6.0 | % | (missing) | | MONOCYTES/10 | 12:00 | Health | | | | | 0 LEUKOCYTES | | System - | | | | | IN BLOOD BY | | [facility] | | | | | AUTOMATED | | | | | | | COUNT | | | | | | + + + +--------+ + + | | 2021-12-21 | [facility] | 6.0 | % | (missing) | | MONOCYTES/10 | 12:00 | Health | | | | | 0 LEUKOCYTES | | System - | | | | | IN BLOOD BY | | [facility] | | | | | AUTOMATED | | | | | | | COUNT | | | | | | + + + +--------+ + + | PROTEIN | 2021-12-21 | [facility] | 6.0 | g/dl | (missing) | | (G/DL) IN | 12:00 | Health | | | | | SER/PLAS | | System - | | | | | | | [facility] | | | | + + + +--------+ + + | PROTEIN | 2021-12-21 | [facility] | 6.0 | g/dl | (missing) | | (G/DL) IN | 12:00 | Health | | | | | SER/PLAS | | System - | | | | | | | [facility] | | | | + + + +--------+ + + | | 2021-12-21 | [facility] | 66.0 | % | (missing) | | NEUTROPHILS/ | 12:00 | Health | | | | | 100 | | System - | | | | | LEUKOCYTES | | [facility] | | | | | IN BLOOD BY | | | | | | | AUTOMATED | | | | | | | COUNT | | | | | | + + + +--------+ + + | | 2021-12-21 | [facility] | 66.0 | % | (missing) | | NEUTROPHILS/ | 12:00 | Health | | | | | 100 | | System - | | | | | LEUKOCYTES | | [facility] | | | | | IN BLOOD BY | | | | | | | AUTOMATED | | | | | | | COUNT | | | | | | + + + +--------+ + + | NEUTROPHILS | 2021-12-21 | [facility] | 7.5 | k/mcl | (missing) | | (10*3/UL) | 12:00 | Health | | | | | IN BLOOD BY | | System - | | | | | AUTOMATED | | [facility] | | | | | COUNT | | | | | | + + + +--------+ + + | NEUTROPHILS | 2021-12-21 | [facility] | 7.5 | k/mcl | (missing) | | (10*3/UL) | 12:00 | Health | | | | | IN BLOOD BY | | System - | | | | | AUTOMATED | | [facility] | | | | | COUNT | | | | | | + + + +--------+ + + | ANION GAP | 2021-12-21 | [facility] | 8.0 | mmol/l | (missing) | | IN SER/PLAS | 12:00 | Health | | | | | | | System - | | | | | | | [facility] | | | | + + + +--------+ + + | ANION GAP | 2021-12-21 | [facility] | 8.0 | mmol/l | (missing) | | IN SER/PLAS | 12:00 | Health | | | | | | | System - | | | | | | | [facility] | | | | + + + +--------+ + + | CALCIUM | 2021-12-21 | [facility] | 8.5 | mg/dl | (missing) | | (MG/DL) IN | 12:00 | Health | | | | | SER/PLAS | | System - | | | | | | | [facility] | | | | + + + +--------+ + + | CALCIUM | 2021-12-21 | [facility] | 8.5 | mg/dl | (missing) | | (MG/DL) IN | 12:00 | Health | | | | | SER/PLAS | | System - | | | | | | | [facility] | | | | + + + +--------+ + + | GLUCOSE, | 2021-12-21 | [facility] | 88 | mg/dl | (missing) | | RANDOM | 12:00 | Health | | | | | (MG/DL) IN | | System - | | | | | SER/PLAS | | [facility] | | | | + + + +--------+ + + | GLUCOSE, | 2021-12-21 | [facility] | 88 | mg/dl | (missing) | | RANDOM | 12:00 | Health | | | | | (MG/DL) IN | | System - | | | | | SER/PLAS | | [facility] | | | | + + + +--------+ + + | PLATELET | 2021-12-21 | [facility] | 9.9 | fl | (missing) | | MEAN VOLUME | 12:00 | Health | | | | | (FL) IN | | System - | | | | | BLOOD BY | | [facility] | | | | | AUTOMATED | | | | | | | COUNT | | | | | | + + + +--------+ + + | PLATELET | 2021-12-21 | [facility] | 9.9 | fl | (missing) | | MEAN VOLUME | 12:00 | Health | | | | | (FL) IN | | System - | | | | | BLOOD BY | | [facility] | | | | | AUTOMATED | | | | | | | COUNT | | | | | | + + + +--------+ + + | ERYTHROCYTE | 2021-12-21 | [facility] | 93.1 | fl | (missing) | | MEAN | 12:00 | Health | | | | | CORPUSCULAR | | System - | | | | | VOLUME (FL) | | [facility] | | | | | BY AUTOMATED | | | | | | | COUNT | | | | | | + + + +--------+ + + | ERYTHROCYTE | 2021-12-21 | [facility] | 93.1 | fl | (missing) | | MEAN | 12:00 | Health | | | | | CORPUSCULAR | | System - | | | | | VOLUME (FL) | | [facility] | | | | | BY AUTOMATED | | | | | | | COUNT | | | | | | + + + +--------+ + + + + | Result panel 58 | + + + + + + + + + | ALCOHOL | 2021-12-21 | [facility] | < | g/dl | (missing) | | (G/DL) IN | 12:01 | Health | | | | | SER/PLAS | | System - | | | | | | | [facility] | | | | + + + + + + + | ALCOHOL | 2021-12-21 | [facility] | < | g/dl | (missing) | | (G/DL) IN | 12:01 | Health | | | | | SER/PLAS | | System - | | | | | | | [facility] | | | | + + + + + + + | [facility] QUAL | 2021-12-21 | [facility] | Negative | (missing) | (missing) | | (CHORIOGONAD | 12:01 | Health | | | | | OTROPIN) IN | | System - | | | | | SER/PLAS | | [facility] | | | | + + + + + + + | [facility] QUAL | 2021-12-21 | [facility] | Negative | (missing) | (missing) | | (CHORIOGONAD | 12:01 | Health | | | | | OTROPIN) IN | | System - | | | | | SER/PLAS | | [facility] | | | | + + + + + + + + + | Result panel 59 | + + + + + + + + + | INFLUENZA A | 2021-12-21 | [facility] | Negative | (missing) | (missing) | | | 14:22 | Health | | | | | | | System - | | | | | | | [facility] | | | | + + + + + + + | INFLUENZA B | 2021-12-21 | [facility] | Negative | (missing) | (missing) | | | 14:22 | Health | | | | | | | System - | | | | | | | [facility] | | | | + + + + + + + | RSV | 2021-12-21 | [facility] | Negative | (missing) | (missing) | | | 14:22 | Health | | | | | | | System - | | | | | | | [facility] | | | | + + + + + + + | SARS-COV-2 | 2021-12-21 | [facility] | Negative | (missing) | (missing) | | (COVID19) | 14:22 | Health | | | | | CEPHEID PCR | | System - | | | | | | | [facility] | | | | + + + + + + + | INFLUENZA A | 2021-12-21 | [facility] | Negative | (missing) | (missing) | | | 14:22 | Health | | | | | | | System - | | | | | | | [facility] | | | | + + + + + + + | INFLUENZA B | 2021-12-21 | [facility] | Negative | (missing) | (missing) | | | 14:22 | Health | | | | | | | System - | | | | | | | [facility] | | | | + + + + + + + | RSV | 2021-12-21 | [facility] | Negative | (missing) | (missing) | | | 14:22 | Health | | | | | | | System - | | | | | | | [facility] | | | | + + + + + + + | SARS-COV-2 | 2021-12-21 | [facility] | Negative | (missing) | (missing) | | (COVID19) | 14:22 | Health | | | | | CEPHEID PCR | | System - | | | | | | | [facility] | | | | + + + + + + + + + | Result panel 60 | + + + + + + + + + | | 2022-01-15 | [facility] | (missing) | (missing) | (missing) | | (unavailable | 09:43 | Health | | | | | ) | | System - | | | | | | | [facility] | | | | + + + + + + + | | 2022-01-15 | [facility] | 1. No | (missing) | (missing) | | (unavailable | 09:43 | Health | significant | | | | ) | | System - | radiographic | | | | | | [facility] | abnormality | | | | | | | of the | | | | | | | chest. | | | + + + + + + + | | 2022-01-15 | [facility] | BONE/SOFT | (missing) | (missing) | | (unavailable | 09:43 | Health | TISSUES: The | | | | ) | | System - | osseous | | | | | | [facility] | structures | | | | | | | are intact | | | | | | | and | | | | | | | unremarkable | | | | | | | for age. | | | | | | | There is no | | | | | | | soft tissue | | | | | | | abnormality. | | | + + + + + + + | | 2022-01-15 | [facility] | COMPARISON: | (missing) | (missing) | | (unavailable | 09:43 | Health | 12/16/2021 | | | | ) | | System - | | | | | | | [facility] | | | | + + + + + + + | | 2022-01-15 | [facility] | Electronical | (missing) | (missing) | | (unavailable | 09:43 | Health | ly signed | | | | ) | | System - | by: Daniel Ochoa | | | | | | [facility] | MD Kirt on | | | | | | | 01/16/2022 | | | | | | | 2:14 AM at | | | | | | | workstation | | | | | | | [id number] | | | + + + + + + + | | 2022-01-15 | [facility] | FINDINGS: | (missing) | (missing) | | (unavailable | 09:43 | Health | | | | | ) | | System - | | | | | | | [facility] | | | | + + + + + + + | | 2022-01-15 | [facility] | HEART: The | (missing) | (missing) | | (unavailable | 09:43 | Health | cardiac | | | | ) | | System - | silhouette | | | | | | [facility] | is not | | | | | | | enlarged. | | | + + + + + + + | | 2022-01-15 | [facility] | | (missing) | (missing) | | (unavailable | 09:43 | Health | INDICATIONS: | | | | ) | | System - | Fever | | | | | | [facility] | | | | + + + + + + + | | 2022-01-15 | [facility] | LUNGS/PLEURA | (missing) | (missing) | | (unavailable | 09:43 | Health | : The lungs | | | | ) | | System - | are clear | | | | | | [facility] | without | | | | | | | interstitial | | | | | | | or airspace | | | | | | | opacities. | | | | | | | There is no | | | | | | | pleural | | | | | | | effusion or | | | | | | | pneumothorax | | | | | | | . | | | + + + + + + + | | 2022-01-15 | [facility] | MEDIASTINUM | (missing) | (missing) | | (unavailable | 09:43 | Health | AND SINDHU: | | | | ) | | System - | The | | | | | | [facility] | mediastinum | | | | | | | is | | | | | | | unremarkable | | | | | | | . | | | + + + + + + + | | 2022-01-15 | [facility] | PROCEDURE: | (missing) | (missing) | | (unavailable | 09:43 | Health | CHEST - TWO | | | | ) | | System - | VIEWS | | | | | | [facility] | | | | + + + + + + + | | 2022-01-15 | [facility] | | (missing) | (missing) | | (unavailable | 09:43 | Health | Procedure(s) | | | | ) | | System - | : * No | | | | | | [facility] | procedures | | | | | | | listed * | | | + + + + + + + + + | Result panel 61 | + + + + + + + + + | EGFR | 2022-02-09 | [facility] | > | | (missing) | | (GLOMERULAR | 09:20 | Health | | ml/min/1.73m | | | FILTRATION | | System - | | ? | | | RATE) | | [facility] | | | | | ML/MIN/1.73 | | | | | | | SQ M. | | | | | | + + + + + + + | EGFR | 2022-02-09 | [facility] | > | | (missing) | | (GLOMERULAR | 09:20 | Health | | ml/min/1.73m | | | FILTRATION | | System - | | ? | | | RATE) | | [facility] | | | | | ML/MIN/1.73 | | | | | | | SQ M. | | | | | | + + + + + + + | ALCOHOL | 2022-02-09 | [facility] | < | g/dl | (missing) | | (G/DL) IN | 09:20 | Health | | | | | SER/PLAS | | System - | | | | | | | [facility] | | | | + + + + + + + | ALCOHOL | 2022-02-09 | [facility] | < | g/dl | (missing) | | (G/DL) IN | 09:20 | Health | | | | | SER/PLAS | | System - | | | | | | | [facility] | | | | + + + + + + + | | 2022-02-09 | [facility] | < | mcg/ml | (missing) | | ACETAMINOPHE | 09:20 | Health | | | | | N (UG/ML) IN | | System - | | | | | SER/PLAS | | [facility] | | | | + + + + + + + | | 2022-02-09 | [facility] | < | mcg/ml | (missing) | | ACETAMINOPHE | 09:20 | Health | | | | | N (UG/ML) IN | | System - | | | | | SER/PLAS | | [facility] | | | | + + + + + + + | SALICYLATE | 2022-02-09 | [facility] | < | mg/dl | (missing) | | (MG/DL) IN | 09:20 | Health | | | | | SER/PLAS | | System - | | | | | | | [facility] | | | | + + + + + + + | SALICYLATE | 2022-02-09 | [facility] | < | mg/dl | (missing) | | (MG/DL) IN | 09:20 | Health | | | | | SER/PLAS | | System - | | | | | | | [facility] | | | | + + + + + + + | NRBC/100 | 2022-02-09 | [facility] | 0.0 | % | (missing) | | WBCS BY | 09:20 | Health | | | | | AUTOMATED | | System - | | | | | COUNT | | [facility] | | | | + + + + + + + | NRBC/100 | 2022-02-09 | [facility] | 0.0 | % | (missing) | | WBCS BY | 09:20 | Health | | | | | AUTOMATED | | System - | | | | | COUNT | | [facility] | | | | + + + + + + + | | 2022-02-09 | [facility] | 0.0 | k/mcl | (missing) | | NRBC(10*3/UL | 09:20 | Health | | | | | ) IN BLOOD | | System - | | | | | BY AUTOMATED | | [facility] | | | | | COUNT | | | | | | + + + + + + + | | 2022-02-09 | [facility] | 0.0 | k/mcl | (missing) | | NRBC(10*3/UL | 09:20 | Health | | | | | ) IN BLOOD | | System - | | | | | BY AUTOMATED | | [facility] | | | | | COUNT | | | | | | + + + + + + + | IMMATURE | 2022-02-09 | [facility] | 0.05 | k/mcl | (missing) | | GRANULOCYTE | 09:20 | Health | | | | | (ABS) | | System - | | | | | | | [facility] | | | | + + + + + + + | IMMATURE | 2022-02-09 | [facility] | 0.05 | k/mcl | (missing) | | GRANULOCYTE | 09:20 | Health | | | | | (ABS) | | System - | | | | | | | [facility] | | | | + + + + + + + | EOSINOPHILS | 2022-02-09 | [facility] | 0.1 | k/mcl | (missing) | | (10*3/UL) | 09:20 | Health | | | | | IN BLOOD BY | | System - | | | | | AUTOMATED | | [facility] | | | | | COUNT | | | | | | + + + + + + + | EOSINOPHILS | 2022-02-09 | [facility] | 0.1 | k/mcl | (missing) | | (10*3/UL) | 09:20 | Health | | | | | IN BLOOD BY | | System - | | | | | AUTOMATED | | [facility] | | | | | COUNT | | | | | | + + + + + + + | BASOPHILS | 2022-02-09 | [facility] | 0.2 | k/mcl | (missing) | | (10*3/UL) IN | 09:20 | Health | | | | | BLOOD BY | | System - | | | | | AUTOMATED | | [facility] | | | | | COUNT | | | | | | + + + + + + + | BASOPHILS | 2022-02-09 | [facility] | 0.2 | k/mcl | (missing) | | (10*3/UL) IN | 09:20 | Health | | | | | BLOOD BY | | System - | | | | | AUTOMATED | | [facility] | | | | | COUNT | | | | | | + + + + + + + | IMMATURE | 2022-02-09 | [facility] | 0.4 | % | (missing) | | GRANULOCYTE | 09:20 | Health | | | | | % (AUTO) | | System - | | | | | | | [facility] | | | | + + + + + + + | | 2022-02-09 | [facility] | 0.4 | % | (missing) | | EOSINOPHILS/ | 09:20 | Health | | | | | 100 | | System - | | | | | LEUKOCYTES | | [facility] | | | | | IN BLOOD BY | | | | | | | AUTOMATED | | | | | | | COUNT | | | | | | + + + + + + + | | 2022-02-09 | [facility] | 0.4 | % | (missing) | | EOSINOPHILS/ | 09:20 | Health | | | | | 100 | | System - | | | | | LEUKOCYTES | | [facility] | | | | | IN BLOOD BY | | | | | | | AUTOMATED | | | | | | | COUNT | | | | | | + + + + + + + | IMMATURE | 2022-02-09 | [facility] | 0.4 | % | (missing) | | GRANULOCYTE | 09:20 | Health | | | | | % (AUTO) | | System - | | | | | | | [facility] | | | | + + + + + + + | BILIRUBIN | 2022-02-09 | [facility] | 0.6 | mg/dl | (missing) | | TOTAL | 09:20 | Health | | | | | (MG/DL) IN | | System - | | | | | SER/PLAS | | [facility] | | | | + + + + + + + | BILIRUBIN | 2022-02-09 | [facility] | 0.6 | mg/dl | (missing) | | TOTAL | 09:20 | Health | | | | | (MG/DL) IN | | System - | | | | | SER/PLAS | | [facility] | | | | + + + + + + + | MONOCYTES | 2022-02-09 | [facility] | 0.8 | k/mcl | (missing) | | (10*3/UL) IN | 09:20 | Health | | | | | BLOOD BY | | System - | | | | | AUTOMATED | | [facility] | | | | | COUNT | | | | | | + + + + + + + | MONOCYTES | 2022-02-09 | [facility] | 0.8 | k/mcl | (missing) | | (10*3/UL) IN | 09:20 | Health | | | | | BLOOD BY | | System - | | | | | AUTOMATED | | [facility] | | | | | COUNT | | | | | | + + + + + + + | CREATININE | 2022-02-09 | [facility] | 0.8 | mg/dl | (missing) | | (MG/DL) IN | 09:20 | Health | | | | | SER/PLAS | | System - | | | | | | | [facility] | | | | + + + + + + + | CREATININE | 2022-02-09 | [facility] | 0.8 | mg/dl | (missing) | | (MG/DL) IN | 09:20 | Health | | | | | SER/PLAS | | System - | | | | | | | [facility] | | | | + + + + + + + | | 2022-02-09 | [facility] | 1.1 | % | (missing) | | BASOPHILS/10 | 09:20 | Health | | | | | 0 LEUKOCYTES | | System - | | | | | IN BLOOD BY | | [facility] | | | | | AUTOMATED | | | | | | | COUNT | | | | | | + + + + + + + | | 2022-02-09 | [facility] | 1.1 | % | (missing) | | 10 | 09:20 | Health | | | | | 0 LEUKOCYTES | | System - | | | | | IN BLOOD BY | | [facility] | | | | | AUTOMATED | | | | | | | COUNT | | | | | | + + + + + + + | CHLORIDE | 2022-02-09 | [facility] | 104 | mmol/l | (missing) | | (MMOL/L) IN | 09:20 | Health | | | | | SER/PLAS | | System - | | | | | | | [facility] | | | | + + + + + + + | CHLORIDE | 2022-02-09 | [facility] | 104 | mmol/l | (missing) | | (MMOL/L) IN | 09:20 | Health | | | | | SER/PLAS | | System - | | | | | | | [facility] | | | | + + + + + + + | GLUCOSE, | 2022-02-09 | [facility] | 105 | mg/dl | (missing) | | RANDOM | 09:20 | Health | | | | | (MG/DL) IN | | System - | | | | | SER/PLAS | | [facility] | | | | + + + + + + + | GLUCOSE, | 2022-02-09 | [facility] | 105 | mg/dl | (missing) | | RANDOM | 09:20 | Health | | | | | (MG/DL) IN | | System - | | | | | SER/PLAS | | [facility] | | | | + + + + + + + | ASPARTATE | 2022-02-09 | [facility] | 112 | u/l | (missing) | | AMINOTRANSFE | 09:20 | Health | | | | | RASE (SGOT) | | System - | | | | | (U/L) IN | | [facility] | | | | | SER/PLAS | | | | | | + + + + + + + | ASPARTATE | 2022-02-09 | [facility] | 112 | u/l | (missing) | | AMINOTRANSFE | 09:20 | Health | | | | | RASE (SGOT) | | System - | | | | | (U/L) IN | | [facility] | | | | | SER/PLAS | | | | | | + + + + + + + | ERYTHROCYTE | 2022-02-09 | [facility] | 13.7 | % | (missing) | | | 09:20 | Health | | | | | DISTRIBUTION | | System - | | | | | WIDTH | | [facility] | | | | | (RATIO) BY | | | | | | | AUTOMATED | | | | | | | COUNT | | | | | | + + + + + + + | ERYTHROCYTE | 2022-02-09 | [facility] | 13.7 | % | (missing) | | | 09:20 | Health | | | | | DISTRIBUTION | | System - | | | | | WIDTH | | [facility] | | | | | (RATIO) BY | | | | | | | AUTOMATED | | | | | | | COUNT | | | | | | + + + + + + + | | 2022-02-09 | [facility] | 14.1 | k/mcl | (missing) | | LEUKOCYTES(1 | 09:20 | Health | | | | | 0*3/UL) IN | | System - | | | | | BLOOD BY | | [facility] | | | | | AUTOMATED | | | | | | | COUNT | | | | | | + + + + + + + | | 2022-02-09 | [facility] | 14.1 | k/mcl | (missing) | | LEUKOCYTES(1 | 09:20 | Health | | | | | 0*3/UL) IN | | System - | | | | | BLOOD BY | | [facility] | | | | | AUTOMATED | | | | | | | COUNT | | | | | | + + + + + + + | HEMOGLOBIN | 2022-02-09 | [facility] | 14.6 | g/dl | (missing) | | (G/DL) IN | 09:20 | Health | | | | | BLOOD | | System - | | | | | | | [facility] | | | | + + + + + + + | HEMOGLOBIN | 2022-02-09 | [facility] | 14.6 | g/dl | (missing) | | (G/DL) IN | 09:20 | Health | | | | | BLOOD | | System - | | | | | | | [facility] | | | | + + + + + + + | SODIUM | 2022-02-09 | [facility] | 142 | mmol/l | (missing) | | (MMOL/L) IN | 09:20 | Health | | | | | SER/PLAS | | System - | | | | | | | [facility] | | | | + + + + + + + | SODIUM | 2022-02-09 | [facility] | 142 | mmol/l | (missing) | | (MMOL/L) IN | 09:20 | Health | | | | | SER/PLAS | | System - | | | | | | | [facility] | | | | + + + + + + + | BLOOD UREA | 2022-02-09 | [facility] | 15 | mg/dl | (missing) | | NITROGEN | 09:20 | Health | | | | | (BUN) | | System - | | | | | (MG/DL) IN | | [facility] | | | | | SER/PLAS | | | | | | + + + + + + + | BLOOD UREA | 2022-02-09 | [facility] | 15 | mg/dl | (missing) | | NITROGEN | 09:20 | Health | | | | | (BUN) | | System - | | | | | (MG/DL) IN | | [facility] | | | | | SER/PLAS | | | | | | + + + + + + + | ANION GAP | 2022-02-09 | [facility] | 15.0 | mmol/l | (missing) | | IN SER/PLAS | 09:20 | Health | | | | | | | System - | | | | | | | [facility] | | | | + + + + + + + | ANION GAP | 2022-02-09 | [facility] | 15.0 | mmol/l | (missing) | | IN SER/PLAS | 09:20 | Health | | | | | | | System - | | | | | | | [facility] | | | | + + + + + + + | CARBON | 2022-02-09 | [facility] | 23 | mmol/l | (missing) | | DIOXIDE | 09:20 | Health | | | | | (CO2), TOTAL | | System - | | | | | (MMOL/L) IN | | [facility] | | | | | SER/PLAS | | | | | | + + + + + + + | CARBON | 2022-02-09 | [facility] | 23 | mmol/l | (missing) | | DIOXIDE | 09:20 | Health | | | | | (CO2), TOTAL | | System - | | | | | (MMOL/L) IN | | [facility] | | | | | SER/PLAS | | | | | | + + + + + + + | | 2022-02-09 | [facility] | 29.3 | % | (missing) | | LYMPHOCYTES/ | 09:20 | Health | | | | | 100 | | System - | | | | | LEUKOCYTES | | [facility] | | | | | IN BLOOD BY | | | | | | | AUTOMATED | | | | | | | COUNT | | | | | | + + + + + + + | | 2022-02-09 | [facility] | 29.3 | % | (missing) | | LYMPHOCYTES/ | 09:20 | Health | | | | | 100 | | System - | | | | | LEUKOCYTES | | [facility] | | | | | IN BLOOD BY | | | | | | | AUTOMATED | | | | | | | COUNT | | | | | | + + + + + + + | ERYTHROCYTE | 2022-02-09 | [facility] | 29.6 | pg | (missing) | | MEAN | 09:20 | Health | | | | | CORPUSCULAR | | System - | | | | | HEMOGLOBIN | | [facility] | | | | | (PG) BY | | | | | | | AUTOMATED | | | | | | | COUNT | | | | | | + + + + + + + | ERYTHROCYTE | 2022-02-09 | [facility] | 29.6 | pg | (missing) | | MEAN | 09:20 | Health | | | | | CORPUSCULAR | | System - | | | | | HEMOGLOBIN | | [facility] | | | | | (PG) BY | | | | | | | AUTOMATED | | | | | | | COUNT | | | | | | + + + + + + + | POTASSIUM | 2022-02-09 | [facility] | 3.1 | mmol/l | (missing) | | (MMOL/L) IN | 09:20 | Health | | | | | SER/PLAS | | System - | | | | | | | [facility] | | | | + + + + + + + | POTASSIUM | 2022-02-09 | [facility] | 3.1 | mmol/l | (missing) | | (MMOL/L) IN | 09:20 | Health | | | | | SER/PLAS | | System - | | | | | | | [facility] | | | | + + + + + + + | PLATELETS | 2022-02-09 | [facility] | 324 | k/mcl | (missing) | | (10*3/UL) IN | 09:20 | Health | | | | | BLOOD | | System - | | | | | AUTOMATED | | [facility] | | | | | COUNT | | | | | | + + + + + + + | PLATELETS | 2022-02-09 | [facility] | 324 | k/mcl | (missing) | | (10*3/UL) IN | 09:20 | Health | | | | | BLOOD | | System - | | | | | AUTOMATED | | [facility] | | | | | COUNT | | | | | | + + + + + + + | ERYTHROCYTE | 2022-02-09 | [facility] | 33.6 | g/dl | (missing) | | MEAN | 09:20 | Health | | | | | CORPUSCULAR | | System - | | | | | HEMOGLOBIN | | [facility] | | | | | CONCENTRATIO | | | | | | | N (G/DL) BY | | | | | | | AUTOMATED | | | | | | + + + + + + + | ERYTHROCYTE | 2022-02-09 | [facility] | 33.6 | g/dl | (missing) | | MEAN | 09:20 | Health | | | | | CORPUSCULAR | | System - | | | | | HEMOGLOBIN | | [facility] | | | | | CONCENTRATIO | | | | | | | N (G/DL) BY | | | | | | | AUTOMATED | | | | | | + + + + + + + | LYMPHOCYTES | 2022-02-09 | [facility] | 4.1 | k/mcl | (missing) | | (10*3/UL) | 09:20 | Health | | | | | IN BLOOD BY | | System - | | | | | AUTOMATED | | [facility] | | | | | COUNT | | | | | | + + + + + + + | LYMPHOCYTES | 2022-02-09 | [facility] | 4.1 | k/mcl | (missing) | | (10*3/UL) | 09:20 | Health | | | | | IN BLOOD BY | | System - | | | | | AUTOMATED | | [facility] | | | | | COUNT | | | | | | + + + + + + + | ALBUMIN | 2022-02-09 | [facility] | 4.4 | g/dl | (missing) | | (G/DL) IN | 09:20 | Health | | | | | SER/PLAS | | System - | | | | | | | [facility] | | | | + + + + + + + | ALBUMIN | 2022-02-09 | [facility] | 4.4 | g/dl | (missing) | | (G/DL) IN | 09:20 | Health | | | | | SER/PLAS | | System - | | | | | | | [facility] | | | | + + + + + + + | | 2022-02-09 | [facility] | 4.94 | m/mcl | (missing) | | ERYTHROCYTES | 09:20 | Health | | | | | (10*6/UL) | | System - | | | | | IN BLOOD BY | | [facility] | | | | | AUTOMATED | | | | | | | COUNT | | | | | | + + + + + + + | | 2022-02-09 | [facility] | 4.94 | m/mcl | (missing) | | ERYTHROCYTES | 09:20 | Health | | | | | (10*6/UL) | | System - | | | | | IN BLOOD BY | | [facility] | | | | | AUTOMATED | | | | | | | COUNT | | | | | | + + + + + + + | HEMATOCRIT | 2022-02-09 | [facility] | 43.4 | % | (missing) | | (%) IN BLOOD | 09:20 | Health | | | | | BY | | System - | | | | | AUTOMATED | | [facility] | | | | | COUNT | | | | | | + + + + + + + | HEMATOCRIT | 2022-02-09 | [facility] | 43.4 | % | (missing) | | (%) IN BLOOD | 09:20 | Health | | | | | BY | | System - | | | | | AUTOMATED | | [facility] | | | | | COUNT | | | | | | + + + + + + + | | 2022-02-09 | [facility] | 5.7 | % | (missing) | | /10 | 09:20 | Health | | | | | 0 LEUKOCYTES | | System - | | | | | IN BLOOD BY | | [facility] | | | | | AUTOMATED | | | | | | | COUNT | | | | | | + + + + + + + | | 2022-02-09 | [facility] | 5.7 | % | (missing) | | MONOCYTES/10 | 09:20 | Health | | | | | 0 LEUKOCYTES | | System - | | | | | IN BLOOD BY | | [facility] | | | | | AUTOMATED | | | | | | | COUNT | | | | | | + + + + + + + | ALANINE | 2022-02-09 | [facility] | 53 | u/l | (missing) | | AMINOTRANSFE | 09:20 | Health | | | | | RASE (SGPT) | | System - | | | | | (U/L) IN | | [facility] | | | | | SER/PLAS | | | | | | + + + + + + + | ALANINE | 2022-02-09 | [facility] | 53 | u/l | (missing) | | AMINOTRANSFE | 09:20 | Health | | | | | RASE (SGPT) | | System - | | | | | (U/L) IN | | [facility] | | | | | SER/PLAS | | | | | | + + + + + + + | | 2022-02-09 | [facility] | 63.1 | % | (missing) | | NEUTROPHILS/ | 09:20 | Health | | | | | 100 | | System - | | | | | LEUKOCYTES | | [facility] | | | | | IN BLOOD BY | | | | | | | AUTOMATED | | | | | | | COUNT | | | | | | + + + + + + + | | 2022-02-09 | [facility] | 63.1 | % | (missing) | | NEUTROPHILS/ | 09:20 | Health | | | | | 100 | | System - | | | | | LEUKOCYTES | | [facility] | | | | | IN BLOOD BY | | | | | | | AUTOMATED | | | | | | | COUNT | | | | | | + + + + + + + | PROTEIN | 2022-02-09 | [facility] | 7.1 | g/dl | (missing) | | (G/DL) IN | 09:20 | Health | | | | | SER/PLAS | | System - | | | | | | | [facility] | | | | + + + + + + + | PROTEIN | 2022-02-09 | [facility] | 7.1 | g/dl | (missing) | | (G/DL) IN | 09:20 | Health | | | | | SER/PLAS | | System - | | | | | | | [facility] | | | | + + + + + + + | ALKALINE | 2022-02-09 | [facility] | 78 | u/l | (missing) | | PHOSPHATASE | 09:20 | Health | | | | | (U/L) IN | | System - | | | | | SER/PLAS | | [facility] | | | | + + + + + + + | ALKALINE | 2022-02-09 | [facility] | 78 | u/l | (missing) | | PHOSPHATASE | 09:20 | Health | | | | | (U/L) IN | | System - | | | | | SER/PLAS | | [facility] | | | | + + + + + + + | NEUTROPHILS | 2022-02-09 | [facility] | 8.9 | k/mcl | (missing) | | (10*3/UL) | 09:20 | Health | | | | | IN BLOOD BY | | System - | | | | | AUTOMATED | | [facility] | | | | | COUNT | | | | | | + + + + + + + | NEUTROPHILS | 2022-02-09 | [facility] | 8.9 | k/mcl | (missing) | | (10*3/UL) | 09:20 | Health | | | | | IN BLOOD BY | | System - | | | | | AUTOMATED | | [facility] | | | | | COUNT | | | | | | + + + + + + + | ERYTHROCYTE | 2022-02-09 | [facility] | 87.9 | fl | (missing) | | MEAN | 09:20 | Health | | | | | CORPUSCULAR | | System - | | | | | VOLUME (FL) | | [facility] | | | | | BY AUTOMATED | | | | | | | COUNT | | | | | | + + + + + + + | ERYTHROCYTE | 2022-02-09 | [facility] | 87.9 | fl | (missing) | | MEAN | 09:20 | Health | | | | | CORPUSCULAR | | System - | | | | | VOLUME (FL) | | [facility] | | | | | BY AUTOMATED | | | | | | | COUNT | | | | | | + + + + + + + | PLATELET | 2022-02-09 | [facility] | 9.0 | fl | (missing) | | MEAN VOLUME | 09:20 | Health | | | | | (FL) IN | | System - | | | | | BLOOD BY | | [facility] | | | | | AUTOMATED | | | | | | | COUNT | | | | | | + + + + + + + | PLATELET | 2022-02-09 | [facility] | 9.0 | fl | (missing) | | MEAN VOLUME | 09:20 | Health | | | | | (FL) IN | | System - | | | | | BLOOD BY | | [facility] | | | | | AUTOMATED | | | | | | | COUNT | | | | | | + + + + + + + | CALCIUM | 2022-02-09 | [facility] | 9.2 | mg/dl | (missing) | | (MG/DL) IN | 09:20 | Health | | | | | SER/PLAS | | System - | | | | | | | [facility] | | | | + + + + + + + | CALCIUM | 2022-02-09 | [facility] | 9.2 | mg/dl | (missing) | | (MG/DL) IN | 09:20 | Health | | | | | SER/PLAS | | System - | | | | | | | [facility] | | | | + + + + + + + | | 2022-02-09 | [facility] | Negative | (missing) | (missing) | | BARBITURATES | 09:20 | Health | | | | | PRESENCE IN | | System - | | | | | URINE BY | | [facility] | | | | | SCREEN | | | | | | | METHOD | | | | | | + + + + + + + | | 2022-02-09 | [facility] | Negative | (missing) | (missing) | | BENZODIAZEPI | 09:20 | Health | | | | | SURYA | | System - | | | | | (PRESENCE) | | [facility] | | | | | IN URINE BY | | | | | | | SCREEN | | | | | | | METHOD | | | | | | + + + + + + + | COCAINE | 2022-02-09 | [facility] | Negative | (missing) | (missing) | | ([facility]) | 09:20 | Health | | | | | IN URINE BY | | System - | | | | | SCREEN | | [facility] | | | | | METHOD | | | | | | + + + + + + + | INFLUENZA A | 2022-02-09 | [facility] | Negative | (missing) | (missing) | | | 09:20 | Health | | | | | | | System - | | | | | | | [facility] | | | | + + + + + + + | INFLUENZA B | 2022-02-09 | [facility] | Negative | (missing) | (missing) | | | 09:20 | Health | | | | | | | System - | | | | | | | [facility] | | | | + + + + + + + | METHADONE | 2022-02-09 | [facility] | Negative | (missing) | (missing) | | ([facility]) | 09:20 | Health | | | | | IN URINE BY | | System - | | | | | SCREEN | | [facility] | | | | | METHOD | | | | | | + + + + + + + | OPIATES | 2022-02-09 | [facility] | Negative | (missing) | (missing) | | ([facility]) | 09:20 | Health | | | | | IN URINE BY | | System - | | | | | SCREEN | | [facility] | | | | | METHOD | | | | | | + + + + + + + | OXYCODONE | 2022-02-09 | [facility] | Negative | (missing) | (missing) | | ([facility]) | 09:20 | Health | | | | | IN URINE BY | | System - | | | | | SCREEN | | [facility] | | | | | METHOD | | | | | | + + + + + + + | | 2022-02-09 | [facility] | Negative | (missing) | (missing) | | PHENCYCLIDIN | 09:20 | Health | | | | | E ([facility]) | | System - | | | | | IN URINE BY | | [facility] | | | | | SCREEN | | | | | | | METHOD | | | | | | + + + + + + + | RSV | 2022-02-09 | [facility] | Negative | (missing) | (missing) | | | 09:20 | Health | | | | | | | System - | | | | | | | [facility] | | | | + + + + + + + | SARS-COV-2 | 2022-02-09 | [facility] | Negative | (missing) | (missing) | | (COVID19) | 09:20 | Health | | | | | CEPHEID PCR | | System - | | | | | | | [facility] | | | | + + + + + + + | TRICYCLIC | 2022-02-09 | [facility] | Negative | (missing) | (missing) | | ANTIDEPRESSA | 09:20 | Health | | | | | NTS | | System - | | | | | ([facility]) | | [facility] | | | | | IN URINE | | | | | | + + + + + + + | | 2022-02-09 | [facility] | Negative | (missing) | (missing) | | PHENCYCLIDIN | 09:20 | Health | | | | | E ([facility]) | | System - | | | | | IN URINE BY | | [facility] | | | | | SCREEN | | | | | | | METHOD | | | | | | + + + + + + + | OPIATES | 2022-02-09 | [facility] | Negative | (missing) | (missing) | | ([facility]) | 09:20 | Health | | | | | IN URINE BY | | System - | | | | | SCREEN | | [facility] | | | | | METHOD | | | | | | + + + + + + + | TRICYCLIC | 2022-02-09 | [facility] | Negative | (missing) | (missing) | | ANTIDEPRESSA | 09:20 | Health | | | | | NTS | | System - | | | | | ([facility]) | | [facility] | | | | | IN URINE | | | | | | + + + + + + + | OXYCODONE | 2022-02-09 | [facility] | Negative | (missing) | (missing) | | ([facility]) | 09:20 | Health | | | | | IN URINE BY | | System - | | | | | SCREEN | | [facility] | | | | | METHOD | | | | | | + + + + + + + | [facility] QUAL | 2022-02-09 | [facility] | Negative | (missing) | (missing) | | (CHORIOGONAD | 09:20 | Health | | | | | OTROPIN) IN | | System - | | | | | SER/PLAS | | [facility] | | | | + + + + + + + | INFLUENZA A | 2022-02-09 | [facility] | Negative | (missing) | (missing) | | | 09:20 | Health | | | | | | | System - | | | | | | | [facility] | | | | + + + + + + + | INFLUENZA B | 2022-02-09 | [facility] | Negative | (missing) | (missing) | | | 09:20 | Health | | | | | | | System - | | | | | | | [facility] | | | | + + + + + + + | RSV | 2022-02-09 | [facility] | Negative | (missing) | (missing) | | | 09:20 | Health | | | | | | | System - | | | | | | | [facility] | | | | + + + + + + + | COCAINE | 2022-02-09 | [facility] | Negative | (missing) | (missing) | | (PRESENCE) | 09:20 | Health | | | | | IN URINE BY | | System - | | | | | SCREEN | | [facility] | | | | | METHOD | | | | | | + + + + + + + | | 2022-02-09 | [facility] | Negative | (missing) | (missing) | | BARBITURATES | 09:20 | Health | | | | | PRESENCE IN | | System - | | | | | URINE BY | | [facility] | | | | | SCREEN | | | | | | | METHOD | | | | | | + + + + + + + | | 2022-02-09 | [facility] | Negative | (missing) | (missing) | | BENZODIAZEPI | 09:20 | Health | | | | | SURYA | | System - | | | | | (PRESENCE) | | [facility] | | | | | IN URINE BY | | | | | | | SCREEN | | | | | | | METHOD | | | | | | + + + + + + + | METHADONE | 2022-02-09 | [facility] | Negative | (missing) | (missing) | | (PRESENCE) | 09:20 | Health | | | | | IN URINE BY | | System - | | | | | SCREEN | | [facility] | | | | | METHOD | | | | | | + + + + + + + | SARS-COV-2 | 2022-02-09 | [facility] | Negative | (missing) | (missing) | | (COVID19) | 09:20 | Health | | | | | CEPHEID PCR | | System - | | | | | | | [facility] | | | | + + + + + + + | [facility] QUAL | 2022-02-09 | [facility] | Negative | (missing) | (missing) | | (CHORIOGONAD | 09:20 | Health | | | | | OTROPIN) IN | | System - | | | | | SER/PLAS | | [facility] | | | | + + + + + + + | | 2022-02-09 | [facility] | Presumptive | (missing) | (missing) | | METHAMPHETAM | 09:20 | Health | Positive | | | | INE | | System - | | | | | (PRESENCE) | | [facility] | | | | | IN URINE BY | | | | | | | SCREEN | | | | | | | METHOD | | | | | | + + + + + + + | THC | 2022-02-09 | [facility] | Presumptive | (missing) | (missing) | | (CANNABINOID | 09:20 | Health | Positive | | | | ) IN URINE | | System - | | | | | BY SCREEN | | [facility] | | | | | METHOD | | | | | | + + + + + + + | THC | 2022-02-09 | [facility] | Presumptive | (missing) | (missing) | | (CANNABINOID | 09:20 | Health | Positive | | | | ) IN URINE | | System - | | | | | BY SCREEN | | [facility] | | | | | METHOD | | | | | | + + + + + + + | AMPHETAMINE | 2022-02-09 | [facility] | Presumptive | (missing) | (missing) | | (PRESENCE) | 09:20 | Health | Positive | | | | IN URINE BY | | System - | | | | | SCREEN | | [facility] | | | | | METHOD | | | | | | + + + + + + + | | 2022-02-09 | [facility] | Presumptive | (missing) | (missing) | | METHAMPHETAM | 09:20 | Health | Positive | | | | INE | | System - | | | | | ([facility]ENCE) | | [facility] | | | | | IN URINE BY | | | | | | | SCREEN | | | | | | | METHOD | | | | | | + + + + + + + | AMPHETAMINE | 2022-02-09 | [facility] | Presumptive | (missing) | (missing) | | (PRESENCE) | 09:20 | Health | Positive | | | | IN URINE BY | | System - | | | | | SCREEN | | [facility] | | | | | METHOD | | | | | | + + + + + + + + + | Result panel 62 | + + + + + + + + + | EGFR | 2022-03-19 | [facility] | > | | (missing) | | (GLOMERULAR | 07:10 | Health | | ml/min/1.73m | | | FILTRATION | | System - | | ? | | | RATE) | | [facility] | | | | | ML/MIN/1.73 | | | | | | | SQ M. | | | | | | + + + + + + + | EGFR | 2022-03-19 | [facility] | > | | (missing) | | (GLOMERULAR | 07:10 | Health | | ml/min/1.73m | | | FILTRATION | | System - | | ? | | | RATE) | | [facility] | | | | | ML/MIN/1.73 | | | | | | | SQ M. | | | | | | + + + + + + + | ALCOHOL | 2022-03-19 | [facility] | < | g/dl | (missing) | | (G/DL) IN | 07:10 | Health | | | | | SER/PLAS | | System - | | | | | | | [facility] | | | | + + + + + + + | ALCOHOL | 2022-03-19 | [facility] | < | g/dl | (missing) | | (G/DL) IN | 07:10 | Health | | | | | SER/PLAS | | System - | | | | | | | [facility] | | | | + + + + + + + | | 2022-03-19 | [facility] | < | mcg/ml | (missing) | | ACETAMINOPHE | 07:10 | Health | | | | | N (UG/ML) IN | | System - | | | | | SER/PLAS | | [facility] | | | | + + + + + + + | | 2022-03-19 | [facility] | < | mcg/ml | (missing) | | ACETAMINOPHE | 07:10 | Health | | | | | N (UG/ML) IN | | System - | | | | | SER/PLAS | | [facility] | | | | + + + + + + + | SALICYLATE | 2022-03-19 | [facility] | < | mg/dl | (missing) | | (MG/DL) IN | 07:10 | Health | | | | | SER/PLAS | | System - | | | | | | | [facility] | | | | + + + + + + + | SALICYLATE | 2022-03-19 | [facility] | < | mg/dl | (missing) | | (MG/DL) IN | 07:10 | Health | | | | | SER/PLAS | | System - | | | | | | | [facility] | | | | + + + + + + + | NRBC/100 | 2022-03-19 | [facility] | 0.0 | % | (missing) | | WBCS BY | 07:10 | Health | | | | | AUTOMATED | | System - | | | | | COUNT | | [facility] | | | | + + + + + + + | NRBC/100 | 2022-03-19 | [facility] | 0.0 | % | (missing) | | WBCS BY | 07:10 | Health | | | | | AUTOMATED | | System - | | | | | COUNT | | [facility] | | | | + + + + + + + | | 2022-03-19 | [facility] | 0.0 | k/mcl | (missing) | | NRBC(10*3/UL | 07:10 | Health | | | | | ) IN BLOOD | | System - | | | | | BY AUTOMATED | | [facility] | | | | | COUNT | | | | | | + + + + + + + | EOSINOPHILS | 2022-03-19 | [facility] | 0.0 | k/mcl | (missing) | | (10*3/UL) | 07:10 | Health | | | | | IN BLOOD BY | | System - | | | | | AUTOMATED | | [facility] | | | | | COUNT | | | | | | + + + + + + + | EOSINOPHILS | 2022-03-19 | [facility] | 0.0 | k/mcl | (missing) | | (10*3/UL) | 07:10 | Health | | | | | IN BLOOD BY | | System - | | | | | AUTOMATED | | [facility] | | | | | COUNT | | | | | | + + + + + + + | | 2022-03-19 | [facility] | 0.0 | k/mcl | (missing) | | NRBC(10*3/UL | 07:10 | Health | | | | | ) IN BLOOD | | System - | | | | | BY AUTOMATED | | [facility] | | | | | COUNT | | | | | | + + + + + + + | IMMATURE | 2022-03-19 | [facility] | 0.06 | k/mcl | (missing) | | GRANULOCYTE | 07:10 | Health | | | | | (ABS) | | System - | | | | | | | [facility] | | | | + + + + + + + | IMMATURE | 2022-03-19 | [facility] | 0.06 | k/mcl | (missing) | | GRANULOCYTE | 07:10 | Health | | | | | (ABS) | | System - | | | | | | | [facility] | | | | + + + + + + + | BASOPHILS | 2022-03-19 | [facility] | 0.1 | k/mcl | (missing) | | (10*3/UL) IN | 07:10 | Health | | | | | BLOOD BY | | System - | | | | | AUTOMATED | | [facility] | | | | | COUNT | | | | | | + + + + + + + | BASOPHILS | 2022-03-19 | [facility] | 0.1 | k/mcl | (missing) | | (10*3/UL) IN | 07:10 | Health | | | | | BLOOD BY | | System - | | | | | AUTOMATED | | [facility] | | | | | COUNT | | | | | | + + + + + + + | | 2022-03-19 | [facility] | 0.2 | % | (missing) | | EOSINOPHILS/ | 07:10 | Health | | | | | 100 | | System - | | | | | LEUKOCYTES | | [facility] | | | | | IN BLOOD BY | | | | | | | AUTOMATED | | | | | | | COUNT | | | | | | + + + + + + + | | 2022-03-19 | [facility] | 0.2 | % | (missing) | | EOSINOPHILS/ | 07:10 | Health | | | | | 100 | | System - | | | | | LEUKOCYTES | | [facility] | | | | | IN BLOOD BY | | | | | | | AUTOMATED | | | | | | | COUNT | | | | | | + + + + + + + | BILIRUBIN | 2022-03-19 | [facility] | 0.6 | mg/dl | (missing) | | TOTAL | 07:10 | Health | | | | | (MG/DL) IN | | System - | | | | | SER/PLAS | | [facility] | | | | + + + + + + + | BILIRUBIN | 2022-03-19 | [facility] | 0.6 | mg/dl | (missing) | | TOTAL | 07:10 | Health | | | | | (MG/DL) IN | | System - | | | | | SER/PLAS | | [facility] | | | | + + + + + + + | IMMATURE | 2022-03-19 | [facility] | 0.7 | % | (missing) | | GRANULOCYTE | 07:10 | Health | | | | | % (AUTO) | | System - | | | | | | | [facility] | | | | + + + + + + + | IMMATURE | 2022-03-19 | [facility] | 0.7 | % | (missing) | | GRANULOCYTE | 07:10 | Health | | | | | % (AUTO) | | System - | | | | | | | [facility] | | | | + + + + + + + | MONOCYTES | 2022-03-19 | [facility] | 0.7 | k/mcl | (missing) | | (10*3/UL) IN | 07:10 | Health | | | | | BLOOD BY | | System - | | | | | AUTOMATED | | [facility] | | | | | COUNT | | | | | | + + + + + + + | MONOCYTES | 2022-03-19 | [facility] | 0.7 | k/mcl | (missing) | | (10*3/UL) IN | 07:10 | Health | | | | | BLOOD BY | | System - | | | | | AUTOMATED | | [facility] | | | | | COUNT | | | | | | + + + + + + + | CREATININE | 2022-03-19 | [facility] | 0.7 | mg/dl | (missing) | | (MG/DL) IN | 07:10 | Health | | | | | SER/PLAS | | System - | | | | | | | [facility] | | | | + + + + + + + | CREATININE | 2022-03-19 | [facility] | 0.7 | mg/dl | (missing) | | (MG/DL) IN | 07:10 | Health | | | | | SER/PLAS | | System - | | | | | | | [facility] | | | | + + + + + + + | | 2022-03-19 | [facility] | 0.8 | % | (missing) | | BASOPHILS/10 | 07:10 | Health | | | | | 0 LEUKOCYTES | | System - | | | | | IN BLOOD BY | | [facility] | | | | | AUTOMATED | | | | | | | COUNT | | | | | | + + + + + + + | | 2022-03-19 | [facility] | 0.8 | % | (missing) | | BASOPHILS/10 | 07:10 | Health | | | | | 0 LEUKOCYTES | | System - | | | | | IN BLOOD BY | | [facility] | | | | | AUTOMATED | | | | | | | COUNT | | | | | | + + + + + + + | TSH | 2022-03-19 | [facility] | 1.18 | mciu/ml | (missing) | | (THYROTROPIN | 07:10 | Health | | | | | ) (UIU/ML) | | System - | | | | | IN SER/PLAS | | [facility] | | | | + + + + + + + | TSH | 2022-03-19 | [facility] | 1.18 | mciu/ml | (missing) | | (THYROTROPIN | 07:10 | Health | | | | | ) (UIU/ML) | | System - | | | | | IN SER/PLAS | | [facility] | | | | + + + + + + + | BLOOD UREA | 2022-03-19 | [facility] | 10 | mg/dl | (missing) | | NITROGEN | 07:10 | Health | | | | | (BUN) | | System - | | | | | (MG/DL) IN | | [facility] | | | | | SER/PLAS | | | | | | + + + + + + + | BLOOD UREA | 2022-03-19 | [facility] | 10 | mg/dl | (missing) | | NITROGEN | 07:10 | Health | | | | | (BUN) | | System - | | | | | (MG/DL) IN | | [facility] | | | | | SER/PLAS | | | | | | + + + + + + + | CHLORIDE | 2022-03-19 | [facility] | 105 | mmol/l | (missing) | | (MMOL/L) IN | 07:10 | Health | | | | | SER/PLAS | | System - | | | | | | | [facility] | | | | + + + + + + + | CHLORIDE | 2022-03-19 | [facility] | 105 | mmol/l | (missing) | | (MMOL/L) IN | 07:10 | Health | | | | | SER/PLAS | | System - | | | | | | | [facility] | | | | + + + + + + + | ERYTHROCYTE | 2022-03-19 | [facility] | 13.7 | % | (missing) | | | 07:10 | Health | | | | | DISTRIBUTION | | System - | | | | | WIDTH | | [facility] | | | | | (RATIO) BY | | | | | | | AUTOMATED | | | | | | | COUNT | | | | | | + + + + + + + | ERYTHROCYTE | 2022-03-19 | [facility] | 13.7 | % | (missing) | | | 07:10 | Health | | | | | DISTRIBUTION | | System - | | | | | WIDTH | | [facility] | | | | | (RATIO) BY | | | | | | | AUTOMATED | | | | | | | COUNT | | | | | | + + + + + + + | HEMOGLOBIN | 2022-03-19 | [facility] | 14.8 | g/dl | (missing) | | (G/DL) IN | 07:10 | Health | | | | | BLOOD | | System - | | | | | | | [facility] | | | | + + + + + + + | HEMOGLOBIN | 2022-03-19 | [facility] | 14.8 | g/dl | (missing) | | (G/DL) IN | 07:10 | Health | | | | | BLOOD | | System - | | | | | | | [facility] | | | | + + + + + + + | SODIUM | 2022-03-19 | [facility] | 141 | mmol/l | (missing) | | (MMOL/L) IN | 07:10 | Health | | | | | SER/PLAS | | System - | | | | | | | [facility] | | | | + + + + + + + | SODIUM | 2022-03-19 | [facility] | 141 | mmol/l | (missing) | | (MMOL/L) IN | 07:10 | Health | | | | | SER/PLAS | | System - | | | | | | | [facility] | | | | + + + + + + + | GLUCOSE, | 2022-03-19 | [facility] | 149 | mg/dl | (missing) | | RANDOM | 07:10 | Health | | | | | (MG/DL) IN | | System - | | | | | SER/PLAS | | [facility] | | | | + + + + + + + | GLUCOSE, | 2022-03-19 | [facility] | 149 | mg/dl | (missing) | | RANDOM | 07:10 | Health | | | | | (MG/DL) IN | | System - | | | | | SER/PLAS | | [facility] | | | | + + + + + + + | ANION GAP | 2022-03-19 | [facility] | 16.0 | mmol/l | (missing) | | IN SER/PLAS | 07:10 | Health | | | | | | | System - | | | | | | | [facility] | | | | + + + + + + + | ANION GAP | 2022-03-19 | [facility] | 16.0 | mmol/l | (missing) | | IN SER/PLAS | 07:10 | Health | | | | | | | System - | | | | | | | [facility] | | | | + + + + + + + | CARBON | 2022-03-19 | [facility] | 20 | mmol/l | (missing) | | DIOXIDE | 07:10 | Health | | | | | (CO2), TOTAL | | System - | | | | | (MMOL/L) IN | | [facility] | | | | | SER/PLAS | | | | | | + + + + + + + | CARBON | 2022-03-19 | [facility] | 20 | mmol/l | (missing) | | DIOXIDE | 07:10 | Health | | | | | (CO2), TOTAL | | System - | | | | | (MMOL/L) IN | | [facility] | | | | | SER/PLAS | | | | | | + + + + + + + | ASPARTATE | 2022-03-19 | [facility] | 26 | u/l | (missing) | | AMINOTRANSFE | 07:10 | Health | | | | | RASE (SGOT) | | System - | | | | | (U/L) IN | | [facility] | | | | | SER/PLAS | | | | | | + + + + + + + | ASPARTATE | 2022-03-19 | [facility] | 26 | u/l | (missing) | | AMINOTRANSFE | 07:10 | Health | | | | | RASE (SGOT) | | System - | | | | | (U/L) IN | | [facility] | | | | | SER/PLAS | | | | | | + + + + + + + | ERYTHROCYTE | 2022-03-19 | [facility] | 29.7 | pg | (missing) | | MEAN | 07:10 | Health | | | | | CORPUSCULAR | | System - | | | | | HEMOGLOBIN | | [facility] | | | | | (PG) BY | | | | | | | AUTOMATED | | | | | | | COUNT | | | | | | + + + + + + + | ERYTHROCYTE | 2022-03-19 | [facility] | 29.7 | pg | (missing) | | MEAN | 07:10 | Health | | | | | CORPUSCULAR | | System - | | | | | HEMOGLOBIN | | [facility] | | | | | (PG) BY | | | | | | | AUTOMATED | | | | | | | COUNT | | | | | | + + + + + + + | LYMPHOCYTES | 2022-03-19 | [facility] | 3.2 | k/mcl | (missing) | | (10*3/UL) | 07:10 | Health | | | | | IN BLOOD BY | | System - | | | | | AUTOMATED | | [facility] | | | | | COUNT | | | | | | + + + + + + + | LYMPHOCYTES | 2022-03-19 | [facility] | 3.2 | k/mcl | (missing) | | (10*3/UL) | 07:10 | Health | | | | | IN BLOOD BY | | System - | | | | | AUTOMATED | | [facility] | | | | | COUNT | | | | | | + + + + + + + | POTASSIUM | 2022-03-19 | [facility] | 3.3 | mmol/l | (missing) | | (MMOL/L) IN | 07:10 | Health | | | | | SER/PLAS | | System - | | | | | | | [facility] | | | | + + + + + + + | POTASSIUM | 2022-03-19 | [facility] | 3.3 | mmol/l | (missing) | | (MMOL/L) IN | 07:10 | Health | | | | | SER/PLAS | | System - | | | | | | | [facility] | | | | + + + + + + + | ERYTHROCYTE | 2022-03-19 | [facility] | 34.3 | g/dl | (missing) | | MEAN | 07:10 | Health | | | | | CORPUSCULAR | | System - | | | | | HEMOGLOBIN | | [facility] | | | | | CONCENTRATIO | | | | | | | N (G/DL) BY | | | | | | | AUTOMATED | | | | | | + + + + + + + | ERYTHROCYTE | 2022-03-19 | [facility] | 34.3 | g/dl | (missing) | | MEAN | 07:10 | Health | | | | | CORPUSCULAR | | System - | | | | | HEMOGLOBIN | | [facility] | | | | | CONCENTRATIO | | | | | | | N (G/DL) BY | | | | | | | AUTOMATED | | | | | | + + + + + + + | | 2022-03-19 | [facility] | 34.7 | % | (missing) | | LYMPHOCYTES/ | 07:10 | Health | | | | | 100 | | System - | | | | | LEUKOCYTES | | [facility] | | | | | IN BLOOD BY | | | | | | | AUTOMATED | | | | | | | COUNT | | | | | | + + + + + + + | | 2022-03-19 | [facility] | 34.7 | % | (missing) | | LYMPHOCYTES/ | 07:10 | Health | | | | | 100 | | System - | | | | | LEUKOCYTES | | [facility] | | | | | IN BLOOD BY | | | | | | | AUTOMATED | | | | | | | COUNT | | | | | | + + + + + + + | PLATELETS | 2022-03-19 | [facility] | 395 | k/mcl | (missing) | | (10*3/UL) IN | 07:10 | Health | | | | | BLOOD | | System - | | | | | AUTOMATED | | [facility] | | | | | COUNT | | | | | | + + + + + + + | PLATELETS | 2022-03-19 | [facility] | 395 | k/mcl | (missing) | | (10*3/UL) IN | 07:10 | Health | | | | | BLOOD | | System - | | | | | AUTOMATED | | [facility] | | | | | COUNT | | | | | | + + + + + + + | ALBUMIN | 2022-03-19 | [facility] | 4.2 | g/dl | (missing) | | (G/DL) IN | 07:10 | Health | | | | | SER/PLAS | | System - | | | | | | | [facility] | | | | + + + + + + + | ALBUMIN | 2022-03-19 | [facility] | 4.2 | g/dl | (missing) | | (G/DL) IN | 07:10 | Health | | | | | SER/PLAS | | System - | | | | | | | [facility] | | | | + + + + + + + | | 2022-03-19 | [facility] | 4.99 | m/mcl | (missing) | | ERYTHROCYTES | 07:10 | Health | | | | | (10*6/UL) | | System - | | | | | IN BLOOD BY | | [facility] | | | | | AUTOMATED | | | | | | | COUNT | | | | | | + + + + + + + | | 2022-03-19 | [facility] | 4.99 | m/mcl | (missing) | | ERYTHROCYTES | 07:10 | Health | | | | | (10*6/UL) | | System - | | | | | IN BLOOD BY | | [facility] | | | | | AUTOMATED | | | | | | | COUNT | | | | | | + + + + + + + | HEMATOCRIT | 2022-03-19 | [facility] | 43.2 | % | (missing) | | (%) IN BLOOD | 07:10 | Health | | | | | BY | | System - | | | | | AUTOMATED | | [facility] | | | | | COUNT | | | | | | + + + + + + + | HEMATOCRIT | 2022-03-19 | [facility] | 43.2 | % | (missing) | | (%) IN BLOOD | 07:10 | Health | | | | | BY | | System - | | | | | AUTOMATED | | [facility] | | | | | COUNT | | | | | | + + + + + + + | ALANINE | 2022-03-19 | [facility] | 44 | u/l | (missing) | | AMINOTRANSFE | 07:10 | Health | | | | | RASE (SGPT) | | System - | | | | | (U/L) IN | | [facility] | | | | | SER/PLAS | | | | | | + + + + + + + | ALANINE | 2022-03-19 | [facility] | 44 | u/l | (missing) | | AMINOTRANSFE | 07:10 | Health | | | | | RASE (SGPT) | | System - | | | | | (U/L) IN | | [facility] | | | | | SER/PLAS | | | | | | + + + + + + + | NEUTROPHILS | 2022-03-19 | [facility] | 5.1 | k/mcl | (missing) | | (10*3/UL) | 07:10 | Health | | | | | IN BLOOD BY | | System - | | | | | AUTOMATED | | [facility] | | | | | COUNT | | | | | | + + + + + + + | NEUTROPHILS | 2022-03-19 | [facility] | 5.1 | k/mcl | (missing) | | (10*3/UL) | 07:10 | Health | | | | | IN BLOOD BY | | System - | | | | | AUTOMATED | | [facility] | | | | | COUNT | | | | | | + + + + + + + | | 2022-03-19 | [facility] | 56.1 | % | (missing) | | NEUTROPHILS/ | 07:10 | Health | | | | | 100 | | System - | | | | | LEUKOCYTES | | [facility] | | | | | IN BLOOD BY | | | | | | | AUTOMATED | | | | | | | COUNT | | | | | | + + + + + + + | | 2022-03-19 | [facility] | 56.1 | % | (missing) | | NEUTROPHILS/ | 07:10 | Health | | | | | 100 | | System - | | | | | LEUKOCYTES | | [facility] | | | | | IN BLOOD BY | | | | | | | AUTOMATED | | | | | | | COUNT | | | | | | + + + + + + + | PROTEIN | 2022-03-19 | [facility] | 6.6 | g/dl | (missing) | | (G/DL) IN | 07:10 | Health | | | | | SER/PLAS | | System - | | | | | | | [facility] | | | | + + + + + + + | PROTEIN | 2022-03-19 | [facility] | 6.6 | g/dl | (missing) | | (G/DL) IN | 07:10 | Health | | | | | SER/PLAS | | System - | | | | | | | [facility] | | | | + + + + + + + | | 2022-03-19 | [facility] | 7.5 | % | (missing) | | MONOCYTES/10 | 07:10 | Health | | | | | 0 LEUKOCYTES | | System - | | | | | IN BLOOD BY | | [facility] | | | | | AUTOMATED | | | | | | | COUNT | | | | | | + + + + + + + | | 2022-03-19 | [facility] | 7.5 | % | (missing) | | MONOCYTES/10 | 07:10 | Health | | | | | 0 LEUKOCYTES | | System - | | | | | IN BLOOD BY | | [facility] | | | | | AUTOMATED | | | | | | | COUNT | | | | | | + + + + + + + | CALCIUM | 2022-03-19 | [facility] | 8.9 | mg/dl | (missing) | | (MG/DL) IN | 07:10 | Health | | | | | SER/PLAS | | System - | | | | | | | [facility] | | | | + + + + + + + | CALCIUM | 2022-03-19 | [facility] | 8.9 | mg/dl | (missing) | | (MG/DL) IN | 07:10 | Health | | | | | SER/PLAS | | System - | | | | | | | [facility] | | | | + + + + + + + | ALKALINE | 2022-03-19 | [facility] | 83 | u/l | (missing) | | PHOSPHATASE | 07:10 | Health | | | | | (U/L) IN | | System - | | | | | SER/PLAS | | [facility] | | | | + + + + + + + | ALKALINE | 2022-03-19 | [facility] | 83 | u/l | (missing) | | PHOSPHATASE | 07:10 | Health | | | | | (U/L) IN | | System - | | | | | SER/PLAS | | [facility] | | | | + + + + + + + | ERYTHROCYTE | 2022-03-19 | [facility] | 86.6 | fl | (missing) | | MEAN | 07:10 | Health | | | | | CORPUSCULAR | | System - | | | | | VOLUME (FL) | | [facility] | | | | | BY AUTOMATED | | | | | | | COUNT | | | | | | + + + + + + + | ERYTHROCYTE | 2022-03-19 | [facility] | 86.6 | fl | (missing) | | MEAN | 07:10 | Health | | | | | CORPUSCULAR | | System - | | | | | VOLUME (FL) | | [facility] | | | | | BY AUTOMATED | | | | | | | COUNT | | | | | | + + + + + + + | | 2022-03-19 | [facility] | 9.1 | k/mcl | (missing) | | LEUKOCYTES(1 | 07:10 | Health | | | | | 0*3/UL) IN | | System - | | | | | BLOOD BY | | [facility] | | | | | AUTOMATED | | | | | | | COUNT | | | | | | + + + + + + + | | 2022-03-19 | [facility] | 9.1 | k/mcl | (missing) | | LEUKOCYTES(1 | 07:10 | Health | | | | | 0*3/UL) IN | | System - | | | | | BLOOD BY | | [facility] | | | | | AUTOMATED | | | | | | | COUNT | | | | | | + + + + + + + | PLATELET | 2022-03-19 | [facility] | 9.2 | fl | (missing) | | MEAN VOLUME | 07:10 | Health | | | | | (FL) IN | | System - | | | | | BLOOD BY | | [facility] | | | | | AUTOMATED | | | | | | | COUNT | | | | | | + + + + + + + | PLATELET | 2022-03-19 | [facility] | 9.2 | fl | (missing) | | MEAN VOLUME | 07:10 | Health | | | | | (FL) IN | | System - | | | | | BLOOD BY | | [facility] | | | | | AUTOMATED | | | | | | | COUNT | | | | | | + + + + + + + | | 2022-03-19 | [facility] | Negative | (missing) | (missing) | | BARBITURATES | 07:10 | Health | | | | | PRESENCE IN | | System - | | | | | URINE BY | | [facility] | | | | | SCREEN | | | | | | | METHOD | | | | | | + + + + + + + | | 2022-03-19 | [facility] | Negative | (missing) | (missing) | | BENZODIAZEPI | 07:10 | Health | | | | | SURYA | | System - | | | | | (PRESENCE) | | [facility] | | | | | IN URINE BY | | | | | | | SCREEN | | | | | | | METHOD | | | | | | + + + + + + + | COCAINE | 2022-03-19 | [facility] | Negative | (missing) | (missing) | | (PRESENCE) | 07:10 | Health | | | | | IN URINE BY | | System - | | | | | SCREEN | | [facility] | | | | | METHOD | | | | | | + + + + + + + | INFLUENZA A | 2022-03-19 | [facility] | Negative | (missing) | (missing) | | | 07:10 | Health | | | | | | | System - | | | | | | | [facility] | | | | + + + + + + + | INFLUENZA B | 2022-03-19 | [facility] | Negative | (missing) | (missing) | | | 07:10 | Health | | | | | | | System - | | | | | | | [facility] | | | | + + + + + + + | METHADONE | 2022-03-19 | [facility] | Negative | (missing) | (missing) | | (PRESENCE) | 07:10 | Health | | | | | IN URINE BY | | System - | | | | | SCREEN | | [facility] | | | | | METHOD | | | | | | + + + + + + + | OPIATES | 2022-03-19 | [facility] | Negative | (missing) | (missing) | | (PRESENCE) | 07:10 | Health | | | | | IN URINE BY | | System - | | | | | SCREEN | | [facility] | | | | | METHOD | | | | | | + + + + + + + | OXYCODONE | 2022-03-19 | [facility] | Negative | (missing) | (missing) | | (PRES[facility]) | 07:10 | Health | | | | | IN URINE BY | | System - | | | | | SCREEN | | [facility] | | | | | METHOD | | | | | | + + + + + + + | | 2022-03-19 | [facility] | Negative | (missing) | (missing) | | PHENCYCLIDIN | 07:10 | Health | | | | | E (PRES[facility]) | | System - | | | | | IN URINE BY | | [facility] | | | | | SCREEN | | | | | | | METHOD | | | | | | + + + + + + + | RSV | 2022-03-19 | [facility] | Negative | (missing) | (missing) | | | 07:10 | Health | | | | | | | System - | | | | | | | [facility] | | | | + + + + + + + | SARS-COV-2 | 2022-03-19 | [facility] | Negative | (missing) | (missing) | | (COVID19) | 07:10 | Health | | | | | CEPHEID PCR | | System - | | | | | | | [facility] | | | | + + + + + + + | TRICYCLIC | 2022-03-19 | [facility] | Negative | (missing) | (missing) | | ANTIDEPRESSA | 07:10 | Health | | | | | NTS | | System - | | | | | ([facility]) | | [facility] | | | | | IN URINE | | | | | | + + + + + + + | | 2022-03-19 | [facility] | Negative | (missing) | (missing) | | PHENCYCLIDIN | 07:10 | Health | | | | | E ([facility]) | | System - | | | | | IN URINE BY | | [facility] | | | | | SCREEN | | | | | | | METHOD | | | | | | + + + + + + + | OPIATES | 2022-03-19 | [facility] | Negative | (missing) | (missing) | | ([facility]) | 07:10 | Health | | | | | IN URINE BY | | System - | | | | | SCREEN | | [facility] | | | | | METHOD | | | | | | + + + + + + + | TRICYCLIC | 2022-03-19 | [facility] | Negative | (missing) | (missing) | | ANTIDEPRESSA | 07:10 | Health | | | | | NTS | | System - | | | | | ([facility]) | | [facility] | | | | | IN URINE | | | | | | + + + + + + + | OXYCODONE | 2022-03-19 | [facility] | Negative | (missing) | (missing) | | ([facility]) | 07:10 | Health | | | | | IN URINE BY | | System - | | | | | SCREEN | | [facility] | | | | | METHOD | | | | | | + + + + + + + | [facility] QUAL | 2022-03-19 | [facility] | Negative | (missing) | (missing) | | (CHORIOGONAD | 07:10 | Health | | | | | OTROPIN) IN | | System - | | | | | SER/PLAS | | [facility] | | | | + + + + + + + | INFLUENZA A | 2022-03-19 | [facility] | Negative | (missing) | (missing) | | | 07:10 | Health | | | | | | | System - | | | | | | | [facility] | | | | + + + + + + + | INFLUENZA B | 2022-03-19 | [facility] | Negative | (missing) | (missing) | | | 07:10 | Health | | | | | | | System - | | | | | | | [facility] | | | | + + + + + + + | RSV | 2022-03-19 | [facility] | Negative | (missing) | (missing) | | | 07:10 | Health | | | | | | | System - | | | | | | | [facility] | | | | + + + + + + + | COCAINE | 2022-03-19 | [facility] | Negative | (missing) | (missing) | | (PRESENCE) | 07:10 | Health | | | | | IN URINE BY | | System - | | | | | SCREEN | | [facility] | | | | | METHOD | | | | | | + + + + + + + | | 2022-03-19 | [facility] | Negative | (missing) | (missing) | | BARBITURATES | 07:10 | Health | | | | | PRESENCE IN | | System - | | | | | URINE BY | | [facility] | | | | | SCREEN | | | | | | | METHOD | | | | | | + + + + + + + | | 2022-03-19 | [facility] | Negative | (missing) | (missing) | | BENZODIAZEPI | 07:10 | Health | | | | | SURYA | | System - | | | | | (PRES[facility]) | | [facility] | | | | | IN URINE BY | | | | | | | SCREEN | | | | | | | METHOD | | | | | | + + + + + + + | METHADONE | 2022-03-19 | [facility] | Negative | (missing) | (missing) | | ([facility]) | 07:10 | Health | | | | | IN URINE BY | | System - | | | | | SCREEN | | [facility] | | | | | METHOD | | | | | | + + + + + + + | SARS-COV-2 | 2022-03-19 | [facility] | Negative | (missing) | (missing) | | (COVID19) | 07:10 | Health | | | | | CEPHEID PCR | | System - | | | | | | | [facility] | | | | + + + + + + + | BHCG QUAL | 2022-03-19 | [facility] | Negative | (missing) | (missing) | | (CHORIOGONAD | 07:10 | Health | | | | | OTROPIN) IN | | System - | | | | | SER/PLAS | | [facility] | | | | + + + + + + + | | 2022-03-19 | [facility] | Presumptive | (missing) | (missing) | | METHAMPHETAM | 07:10 | Health | Positive | | | | INE | | System - | | | | | (PRESENCE) | | [facility] | | | | | IN URINE BY | | | | | | | SCREEN | | | | | | | METHOD | | | | | | + + + + + + + | THC | 2022-03-19 | [facility] | Presumptive | (missing) | (missing) | | (CANNABINOID | 07:10 | Health | Positive | | | | ) IN URINE | | System - | | | | | BY SCREEN | | [facility] | | | | | METHOD | | | | | | + + + + + + + | THC | 2022-03-19 | [facility] | Presumptive | (missing) | (missing) | | (CANNABINOID | 07:10 | Health | Positive | | | | ) IN URINE | | System - | | | | | BY SCREEN | | [facility] | | | | | METHOD | | | | | | + + + + + + + | AMPHETAMINE | 2022-03-19 | [facility] | Presumptive | (missing) | (missing) | | (PRESENCE) | 07:10 | Health | Positive | | | | IN URINE BY | | System - | | | | | SCREEN | | [facility] | | | | | METHOD | | | | | | + + + + + + + | | 2022-03-19 | [facility] | Presumptive | (missing) | (missing) | | METHAMPHETAM | 07:10 | Health | Positive | | | | INE | | System - | | | | | ([facility]) | | [facility] | | | | | IN URINE BY | | | | | | | SCREEN | | | | | | | METHOD | | | | | | + + + + + + + | AMPHETAMINE | 2022-03-19 | [facility] | Presumptive | (missing) | (missing) | | (PRESENCE) | 07:10 | Health | Positive | | | | IN URINE BY | | System - | | | | | SCREEN | | [facility] | | | | | METHOD | | | | | | + + + + + + + + + | Result panel 63 | + + + + + +--------+ + + | EGFR | 2022-04-25 | [facility] | > | | (missing) | | (GLOMERULAR | 14:54 | Health | | ml/min/1.73m | | | FILTRATION | | System - | | ? | | | RATE) | | [facility] | | | | | ML/MIN/1.73 | | | | | | | SQ M. | | | | | | + + + +--------+ + + | EGFR | 2022-04-25 | [facility] | > | | (missing) | | (GLOMERULAR | 14:54 | Health | | ml/min/1.73m | | | FILTRATION | | System - | | ? | | | RATE) | | [facility] | | | | | ML/MIN/1.73 | | | | | | | SQ M. | | | | | | + + + +--------+ + + | BILIRUBIN | 2022-04-25 | [facility] | < | mg/dl | (missing) | | TOTAL | 14:54 | Health | | | | | (MG/DL) IN | | System - | | | | | SER/PLAS | | [facility] | | | | + + + +--------+ + + | BILIRUBIN | 2022-04-25 | [facility] | < | mg/dl | (missing) | | TOTAL | 14:54 | Health | | | | | (MG/DL) IN | | System - | | | | | SER/PLAS | | [facility] | | | | + + + +--------+ + + | CREATININE | 2022-04-25 | [facility] | 0.8 | mg/dl | (missing) | | (MG/DL) IN | 14:54 | Health | | | | | SER/PLAS | | System - | | | | | | | [facility] | | | | + + + +--------+ + + | CREATININE | 2022-04-25 | [facility] | 0.8 | mg/dl | (missing) | | (MG/DL) IN | : | Health | | | | | SER/PLAS | | System - | | | | | | | [facility] | | | | + + + +--------+ + + | BLOOD UREA | 2022-04-25 | [facility] | 10 | mg/dl | (missing) | | NITROGEN | 14 | Health | | | | | (BUN) | | System - | | | | | (MG/DL) IN | | [facility] | | | | | SER/PLAS | | | | | | + + + +--------+ + + | BLOOD UREA | 2022-04-25 | [facility] | 10 | mg/dl | (missing) | | NITROGEN | 14:54 | Health | | | | | (BUN) | | System - | | | | | (MG/DL) IN | | [facility] | | | | | SER/PLAS | | | | | | + + + +--------+ + + | ANION GAP | 2022-04-25 | [facility] | 10.0 | mmol/l | (missing) | | IN SER/PLAS | 14:54 | Health | | | | | | | System - | | | | | | | [facility] | | | | + + + +--------+ + + | ANION GAP | 2022-04-25 | [facility] | 10.0 | mmol/l | (missing) | | IN SER/PLAS | 14:54 | Health | | | | | | | System - | | | | | | | [facility] | | | | + + + +--------+ + + | GLUCOSE, | 2022-04-25 | [facility] | 103 | mg/dl | (missing) | | RANDOM | 14:54 | Health | | | | | (MG/DL) IN | | System - | | | | | SER/PLAS | | [facility] | | | | + + + +--------+ + + | GLUCOSE, | 2022-04-25 | [facility] | 103 | mg/dl | (missing) | | RANDOM | 14:54 | Health | | | | | (MG/DL) IN | | System - | | | | | SER/PLAS | | [facility] | | | | + + + +--------+ + + | CHLORIDE | 2022-04-25 | [facility] | 108 | mmol/l | (missing) | | (MMOL/L) IN | 14:54 | Health | | | | | SER/PLAS | | System - | | | | | | | [facility] | | | | + + + +--------+ + + | CHLORIDE | 2022-04-25 | [facility] | 108 | mmol/l | (missing) | | (MMOL/L) IN | 14:54 | Health | | | | | SER/PLAS | | System - | | | | | | | [facility] | | | | + + + +--------+ + + | SODIUM | 2022-04-25 | [facility] | 142 | mmol/l | (missing) | | (MMOL/L) IN | 14:54 | Health | | | | | SER/PLAS | | System - | | | | | | | [facility] | | | | + + + +--------+ + + | SODIUM | 2022-04-25 | [facility] | 142 | mmol/l | (missing) | | (MMOL/L) IN | 14:54 | Health | | | | | SER/PLAS | | System - | | | | | | | [facility] | | | | + + + +--------+ + + | ASPARTATE | 2022-04-25 | [facility] | 15 | u/l | (missing) | | AMINOTRANSFE | 14:54 | Health | | | | | RASE (SGOT) | | System - | | | | | (U/L) IN | | [facility] | | | | | SER/PLAS | | | | | | + + + +--------+ + + | ASPARTATE | 2022-04-25 | [facility] | 15 | u/l | (missing) | | AMINOTRANSFE | 14:54 | Health | | | | | RASE (SGOT) | | System - | | | | | (U/L) IN | | [facility] | | | | | SER/PLAS | | | | | | + + + +--------+ + + | CARBON | 2022-04-25 | [facility] | 24 | mmol/l | (missing) | | DIOXIDE | 14:54 | Health | | | | | (CO2), TOTAL | | System - | | | | | (MMOL/L) IN | | [facility] | | | | | SER/PLAS | | | | | | + + + +--------+ + + | CARBON | 2022-04-25 | [facility] | 24 | mmol/l | (missing) | | DIOXIDE | 14:54 | Health | | | | | (CO2), TOTAL | | System - | | | | | (MMOL/L) IN | | [facility] | | | | | SER/PLAS | | | | | | + + + +--------+ + + | ALANINE | 2022-04-25 | [facility] | 29 | u/l | (missing) | | AMINOTRANSFE | 14:54 | Health | | | | | RASE (SGPT) | | System - | | | | | (U/L) IN | | [facility] | | | | | SER/PLAS | | | | | | + + + +--------+ + + | ALANINE | 2022-04-25 | [facility] | 29 | u/l | (missing) | | AMINOTRANSFE | 14:54 | Health | | | | | RASE (SGPT) | | System - | | | | | (U/L) IN | | [facility] | | | | | SER/PLAS | | | | | | + + + +--------+ + + | POTASSIUM | 2022-04-25 | [facility] | 3.6 | mmol/l | (missing) | | (MMOL/L) IN | 14:54 | Health | | | | | SER/PLAS | | System - | | | | | | | [facility] | | | | + + + +--------+ + + | POTASSIUM | 2022-04-25 | [facility] | 3.6 | mmol/l | (missing) | | (MMOL/L) IN | 14:54 | Health | | | | | SER/PLAS | | System - | | | | | | | [facility] | | | | + + + +--------+ + + | ALBUMIN | 2022-04-25 | [facility] | 4.2 | g/dl | (missing) | | (G/DL) IN | 14:54 | Health | | | | | SER/PLAS | | System - | | | | | | | [facility] | | | | + + + +--------+ + + | ALBUMIN | 2022-04-25 | [facility] | 4.2 | g/dl | (missing) | | (G/DL) IN | 14:54 | Health | | | | | SER/PLAS | | System - | | | | | | | [facility] | | | | + + + +--------+ + + | PROTEIN | 2022-04-25 | [facility] | 6.9 | g/dl | (missing) | | (G/DL) IN | 14:54 | Health | | | | | SER/PLAS | | System - | | | | | | | [facility] | | | | + + + +--------+ + + | PROTEIN | 2022-04-25 | [facility] | 6.9 | g/dl | (missing) | | (G/DL) IN | 14:54 | Health | | | | | SER/PLAS | | System - | | | | | | | [facility] | | | | + + + +--------+ + + | ALKALINE | 2022-04-25 | [facility] | 72 | u/l | (missing) | | PHOSPHATASE | 14:54 | Health | | | | | (U/L) IN | | System - | | | | | SER/PLAS | | [facility] | | | | + + + +--------+ + + | ALKALINE | 2022-04-25 | [facility] | 72 | u/l | (missing) | | PHOSPHATASE | 14:54 | Health | | | | | (U/L) IN | | System - | | | | | SER/PLAS | | [facility] | | | | + + + +--------+ + + | CALCIUM | 2022-04-25 | [facility] | 8.9 | mg/dl | (missing) | | (MG/DL) IN | 14:54 | Health | | | | | SER/PLAS | | System - | | | | | | | [facility] | | | | + + + +--------+ + + | CALCIUM | 2022-04-25 | [facility] | 8.9 | mg/dl | (missing) | | (MG/DL) IN | 14:54 | Health | | | | | SER/PLAS | | System - | | | | | | | [facility] | | | | + + + +--------+ + + + + | Result panel 64 | + + + + + + + + + | | 2022-04-30 | [facility] | Negative | (missing) | (missing) | | BARBITURATES | 12:03 | Health | | | | | PRESENCE IN | | System - | | | | | URINE BY | | [facility] | | | | | SCREEN | | | | | | | METHOD | | | | | | + + + + + + + | | 2022-04-30 | [facility] | Negative | (missing) | (missing) | | BENZODIAZEPI | 12:03 | Health | | | | | SURYA | | System - | | | | | ([facility]) | | [facility] | | | | | IN URINE BY | | | | | | | SCREEN | | | | | | | METHOD | | | | | | + + + + + + + | COCAINE | 2022-04-30 | [facility] | Negative | (missing) | (missing) | | (PRESENCE) | 12:03 | Health | | | | | IN URINE BY | | System - | | | | | SCREEN | | [facility] | | | | | METHOD | | | | | | + + + + + + + | METHADONE | 2022-04-30 | [facility] | Negative | (missing) | (missing) | | ([facility]) | 12:03 | Health | | | | | IN URINE BY | | System - | | | | | SCREEN | | [facility] | | | | | METHOD | | | | | | + + + + + + + | OPIATES | 2022-04-30 | [facility] | Negative | (missing) | (missing) | | ([facility]) | 12:03 | Health | | | | | IN URINE BY | | System - | | | | | SCREEN | | [facility] | | | | | METHOD | | | | | | + + + + + + + | OXYCODONE | 2022-04-30 | [facility] | Negative | (missing) | (missing) | | ([facility]) | 12:03 | Health | | | | | IN URINE BY | | System - | | | | | SCREEN | | [facility] | | | | | METHOD | | | | | | + + + + + + + | | 2022-04-30 | [facility] | Negative | (missing) | (missing) | | PHENCYCLIDIN | 12:03 | Health | | | | | E (PRESENCE) | | System - | | | | | IN URINE BY | | [facility] | | | | | SCREEN | | | | | | | METHOD | | | | | | + + + + + + + | POCT | 2022-04-30 | [facility] | Negative | (missing) | (missing) | | | 12:03 | Health | | | | | TEST URINE | | System - | | | | | | | [facility] | | | | + + + + + + + | THC | 2022-04-30 | [facility] | Negative | (missing) | (missing) | | (CANNABINOID | 12:03 | Health | | | | | ) IN URINE | | System - | | | | | BY SCREEN | | [facility] | | | | | METHOD | | | | | | + + + + + + + | TRICYCLIC | 2022-04-30 | [facility] | Negative | (missing) | (missing) | | ANTIDEPRESSA | 12:03 | Health | | | | | NTS | | System - | | | | | ([facility]) | | [facility] | | | | | IN URINE | | | | | | + + + + + + + | | 2022-04-30 | [facility] | Negative | (missing) | (missing) | | PHENCYCLIDIN | 12:03 | Health | | | | | E ([facility]) | | System - | | | | | IN URINE BY | | [facility] | | | | | SCREEN | | | | | | | METHOD | | | | | | + + + + + + + | THC | 2022-04-30 | [facility] | Negative | (missing) | (missing) | | (CANNABINOID | 12:03 | Health | | | | | ) IN URINE | | System - | | | | | BY SCREEN | | [facility] | | | | | METHOD | | | | | | + + + + + + + | OPIATES | 2022-04-30 | [facility] | Negative | (missing) | (missing) | | (PRES[facility]) | 12:03 | Health | | | | | IN URINE BY | | System - | | | | | SCREEN | | [facility] | | | | | METHOD | | | | | | + + + + + + + | TRICYCLIC | 2022-04-30 | [facility] | Negative | (missing) | (missing) | | ANTIDEPRESSA | 12:03 | Health | | | | | NTS | | System - | | | | | ([facility]) | | [facility] | | | | | IN URINE | | | | | | + + + + + + + | AMPHETAMINE | 2022-04-30 | [facility] | Negative | (missing) | (missing) | | ([facility]) | 12:03 | Health | | | | | IN URINE BY | | System - | | | | | SCREEN | | [facility] | | | | | METHOD | | | | | | + + + + + + + | OXYCODONE | 2022-04-30 | [facility] | Negative | (missing) | (missing) | | ([facility]) | 12:03 | Health | | | | | IN URINE BY | | System - | | | | | SCREEN | | [facility] | | | | | METHOD | | | | | | + + + + + + + | COCAINE | 2022-04-30 | [facility] | Negative | (missing) | (missing) | | ([facility]) | 12:03 | Health | | | | | IN URINE BY | | System - | | | | | SCREEN | | [facility] | | | | | METHOD | | | | | | + + + + + + + | | 2022-04-30 | [facility] | Negative | (missing) | (missing) | | BARBITURATES | 12:03 | Health | | | | | PRESENCE IN | | System - | | | | | URINE BY | | [facility] | | | | | SCREEN | | | | | | | METHOD | | | | | | + + + + + + + | | 2022-04-30 | [facility] | Negative | (missing) | (missing) | | BENZODIAZEPI | 12:03 | Health | | | | | SURYA | | System - | | | | | ([facility]) | | [facility] | | | | | IN URINE BY | | | | | | | SCREEN | | | | | | | METHOD | | | | | | + + + + + + + | METHADONE | 2022-04-30 | [facility] | Negative | (missing) | (missing) | | ([facility]) | 12:03 | Health | | | | | IN URINE BY | | System - | | | | | SCREEN | | [facility] | | | | | METHOD | | | | | | + + + + + + + | POCT | 2022-04-30 | [facility] | Negative | (missing) | (missing) | | | 12:03 | Health | | | | | TEST URINE | | System - | | | | | | | [facility] | | | | + + + + + + + | AMPHETAMINE | 2022-04-30 | [facility] | Negative | (missing) | (missing) | | ([facility]) | 12:03 | Health | | | | | IN URINE BY | | System - | | | | | SCREEN | | [facility] | | | | | METHOD | | | | | | + + + + + + + | | 2022-04-30 | [facility] | Presumptive | (missing) | (missing) | | METHAMPHETAM | 12:03 | Health | Positive | | | | INE | | System - | | | | | ([facility]) | | [facility] | | | | | IN URINE BY | | | | | | | SCREEN | | | | | | | METHOD | | | | | | + + + + + + + | | 2022-04-30 | [facility] | Presumptive | (missing) | (missing) | | METHAMPHETAM | 12:03 | Health | Positive | | | | INE | | System - | | | | | ([facility]ENCE) | | [facility] | | | | | IN URINE BY | | | | | | | SCREEN | | | | | | | METHOD | | | | | | + + + + + + + + + | Result panel 65 | + + + + + + + + + | EGFR | 2022-05-14 | [facility] | > | | (missing) | | (GLOMERULAR | 08:36 | Health | | ml/min/1.73m | | | FILTRATION | | System - | | ? | | | RATE) | | [facility] | | | | | ML/MIN/1.73 | | | | | | | SQ M. | | | | | | + + + + + + + | EGFR | 2022-05-14 | [facility] | > | | (missing) | | (GLOMERULAR | 08:36 | Health | | ml/min/1.73m | | | FILTRATION | | System - | | ? | | | RATE) | | [facility] | | | | | ML/MIN/1.73 | | | | | | | SQ M. | | | | | | + + + + + + + | RBC (#/HPF) | 2022-05-14 | [facility] | < | /hpf | (missing) | | IN URINE | 08:36 | Health | | | | | SEDIMENT | | System - | | | | | | | [facility] | | | | + + + + + + + | RBC (#/HPF) | 2022-05-14 | [facility] | < | /hpf | (missing) | | IN URINE | 08:36 | Health | | | | | SEDIMENT | | System - | | | | | | | [facility] | | | | + + + + + + + | ALCOHOL | 2022-05-14 | [facility] | < | g/dl | (missing) | | (G/DL) IN | 08:36 | Health | | | | | SER/PLAS | | System - | | | | | | | [facility] | | | | + + + + + + + | ALCOHOL | 2022-05-14 | [facility] | < | g/dl | (missing) | | (G/DL) IN | 08:36 | Health | | | | | SER/PLAS | | System - | | | | | | | [facility] | | | | + + + + + + + | | 2022-05-14 | [facility] | < | mcg/ml | (missing) | | ACETAMINOPHE | 08:36 | Health | | | | | N (UG/ML) IN | | System - | | | | | SER/PLAS | | [facility] | | | | + + + + + + + | | 2022-05-14 | [facility] | < | mcg/ml | (missing) | | ACETAMINOPHE | 08:36 | Health | | | | | N (UG/ML) IN | | System - | | | | | SER/PLAS | | [facility] | | | | + + + + + + + | SALICYLATE | 2022-05-14 | [facility] | < | mg/dl | (missing) | | (MG/DL) IN | 08:36 | Health | | | | | SER/PLAS | | System - | | | | | | | [facility] | | | | + + + + + + + | BILIRUBIN | 2022-05-14 | [facility] | < | mg/dl | (missing) | | TOTAL | 08:36 | Health | | | | | (MG/DL) IN | | System - | | | | | SER/PLAS | | [facility] | | | | + + + + + + + | BILIRUBIN | 2022-05-14 | [facility] | < | mg/dl | (missing) | | TOTAL | 08:36 | Health | | | | | (MG/DL) IN | | System - | | | | | SER/PLAS | | [facility] | | | | + + + + + + + | SALICYLATE | 2022-05-14 | [facility] | < | mg/dl | (missing) | | (MG/DL) IN | 08:36 | Health | | | | | SER/PLAS | | System - | | | | | | | [facility] | | | | + + + + + + + | NRBC/100 | 2022-05-14 | [facility] | 0.0 | % | (missing) | | WBCS BY | 08:36 | Health | | | | | AUTOMATED | | System - | | | | | COUNT | | [facility] | | | | + + + + + + + | | 2022-05-14 | [facility] | 0.0 | % | (missing) | | EOSINOPHILS/ | 08:36 | Health | | | | | 100 | | System - | | | | | LEUKOCYTES | | [facility] | | | | | IN BLOOD BY | | | | | | | AUTOMATED | | | | | | | COUNT | | | | | | + + + + + + + | NRBC/100 | 2022-05-14 | [facility] | 0.0 | % | (missing) | | WBCS BY | 08:36 | Health | | | | | AUTOMATED | | System - | | | | | COUNT | | [facility] | | | | + + + + + + + | | 2022-05-14 | [facility] | 0.0 | % | (missing) | | EOSINOPHILS/ | 08:36 | Health | | | | | 100 | | System - | | | | | LEUKOCYTES | | [facility] | | | | | IN BLOOD BY | | | | | | | AUTOMATED | | | | | | | COUNT | | | | | | + + + + + + + | | 2022-05-14 | [facility] | 0.0 | k/mcl | (missing) | | NRBC(10*3/UL | 08:36 | Health | | | | | ) IN BLOOD | | System - | | | | | BY AUTOMATED | | [facility] | | | | | COUNT | | | | | | + + + + + + + | EOSINOPHILS | 2022-05-14 | [facility] | 0.0 | k/mcl | (missing) | | (10*3/UL) | 08:36 | Health | | | | | IN BLOOD BY | | System - | | | | | AUTOMATED | | [facility] | | | | | COUNT | | | | | | + + + + + + + | EOSINOPHILS | 2022-05-14 | [facility] | 0.0 | k/mcl | (missing) | | (10*3/UL) | 08:36 | Health | | | | | IN BLOOD BY | | System - | | | | | AUTOMATED | | [facility] | | | | | COUNT | | | | | | + + + + + + + | | 2022-05-14 | [facility] | 0.0 | k/mcl | (missing) | | NRBC(10*3/UL | 08:36 | Health | | | | | ) IN BLOOD | | System - | | | | | BY AUTOMATED | | [facility] | | | | | COUNT | | | | | | + + + + + + + | IMMATURE | 2022-05-14 | [facility] | 0.08 | k/mcl | (missing) | | GRANULOCYTE | 08:36 | Health | | | | | (ABS) | | System - | | | | | | | [facility] | | | | + + + + + + + | IMMATURE | 2022-05-14 | [facility] | 0.08 | k/mcl | (missing) | | GRANULOCYTE | 08:36 | Health | | | | | (ABS) | | System - | | | | | | | [facility] | | | | + + + + + + + | BASOPHILS | 2022-05-14 | [facility] | 0.1 | k/mcl | (missing) | | (10*3/UL) IN | 08:36 | Health | | | | | BLOOD BY | | System - | | | | | AUTOMATED | | [facility] | | | | | COUNT | | | | | | + + + + + + + | BASOPHILS | 2022-05-14 | [facility] | 0.1 | k/mcl | (missing) | | (10*3/UL) IN | 08:36 | Health | | | | | BLOOD BY | | System - | | | | | AUTOMATED | | [facility] | | | | | COUNT | | | | | | + + + + + + + | | 2022-05-14 | [facility] | 0.2 | mg/dl | (missing) | | UROBILINOGEN | 08:36 | Health | | | | | (MG/DL) IN | | System - | | | | | URINE BY | | [facility] | | | | | TEST STRIP | | | | | | + + + + + + + | | 2022-05-14 | [facility] | 0.2 | mg/dl | (missing) | | UROBILINOGEN | 08:36 | Health | | | | | (MG/DL) IN | | System - | | | | | URINE BY | | [facility] | | | | | TEST STRIP | | | | | | + + + + + + + | MONOCYTES | 2022-05-14 | [facility] | 0.5 | k/mcl | (missing) | | (10*3/UL) IN | 08:36 | Health | | | | | BLOOD BY | | System - | | | | | AUTOMATED | | [facility] | | | | | COUNT | | | | | | + + + + + + + | MONOCYTES | 2022-05-14 | [facility] | 0.5 | k/mcl | (missing) | | (10*3/UL) IN | 08:36 | Health | | | | | BLOOD BY | | System - | | | | | AUTOMATED | | [facility] | | | | | COUNT | | | | | | + + + + + + + | | 2022-05-14 | [facility] | 0.6 | % | (missing) | | BASOPHILS/10 | 08:36 | Health | | | | | 0 LEUKOCYTES | | System - | | | | | IN BLOOD BY | | [facility] | | | | | AUTOMATED | | | | | | | COUNT | | | | | | + + + + + + + | | 2022-05-14 | [facility] | 0.6 | % | (missing) | | BASOPHILS/10 | 08:36 | Health | | | | | 0 LEUKOCYTES | | System - | | | | | IN BLOOD BY | | [facility] | | | | | AUTOMATED | | | | | | | COUNT | | | | | | + + + + + + + | CREATININE | 2022-05-14 | [facility] | 0.6 | mg/dl | (missing) | | (MG/DL) IN | 08:36 | Health | | | | | SER/PLAS | | System - | | | | | | | [facility] | | | | + + + + + + + | CREATININE | 2022-05-14 | [facility] | 0.6 | mg/dl | (missing) | | (MG/DL) IN | 08:36 | Health | | | | | SER/PLAS | | System - | | | | | | | [facility] | | | | + + + + + + + | IMMATURE | 2022-05-14 | [facility] | 0.9 | % | (missing) | | GRANULOCYTE | 08:36 | Health | | | | | % (AUTO) | | System - | | | | | | | [facility] | | | | + + + + + + + | IMMATURE | 2022-05-14 | [facility] | 0.9 | % | (missing) | | GRANULOCYTE | 08:36 | Health | | | | | % (AUTO) | | System - | | | | | | | [facility] | | | | + + + + + + + | BACTERIA | 2022-05-14 | [facility] | 1 | /hpf | (missing) | | (#/HPF) IN | 08:36 | Health | | | | | URINE | | System - | | | | | | | [facility] | | | | + + + + + + + | BACTERIA | 2022-05-14 | [facility] | 1 | /hpf | (missing) | | (#/HPF) IN | 08:36 | Health | | | | | URINE | | System - | | | | | | | [facility] | | | | + + + + + + + | SPECIFIC | 2022-05-14 | [facility] | 1.015 | (missing) | (missing) | | GRAVITY OF | 08:36 | Health | | | | | URINE BY | | System - | | | | | AUTOMATED | | [facility] | | | | | TEST STRIP | | | | | | + + + + + + + | SPECIFIC | 2022-05-14 | [facility] | 1.015 | (missing) | (missing) | | GRAVITY OF | 08:36 | Health | | | | | URINE BY | | System - | | | | | AUTOMATED | | [facility] | | | | | TEST STRIP | | | | | | + + + + + + + | CHLORIDE | 2022-05-14 | [facility] | 105 | mmol/l | (missing) | | (MMOL/L) IN | 08:36 | Health | | | | | SER/PLAS | | System - | | | | | | | [facility] | | | | + + + + + + + | CHLORIDE | 2022-05-14 | [facility] | 105 | mmol/l | (missing) | | (MMOL/L) IN | 08:36 | Health | | | | | SER/PLAS | | System - | | | | | | | [facility] | | | | + + + + + + + | ANION GAP | 2022-05-14 | [facility] | 12.0 | mmol/l | (missing) | | IN SER/PLAS | 08:36 | Health | | | | | | | System - | | | | | | | [facility] | | | | + + + + + + + | ANION GAP | 2022-05-14 | [facility] | 12.0 | mmol/l | (missing) | | IN SER/PLAS | 08:36 | Health | | | | | | | System - | | | | | | | [facility] | | | | + + + + + + + | ERYTHROCYTE | 2022-05-14 | [facility] | 12.5 | % | (missing) | | | 08:36 | Health | | | | | DISTRIBUTION | | System - | | | | | WIDTH | | [facility] | | | | | (RATIO) BY | | | | | | | AUTOMATED | | | | | | | COUNT | | | | | | + + + + + + + | ERYTHROCYTE | 2022-05-14 | [facility] | 12.5 | % | (missing) | | | 08:36 | Health | | | | | DISTRIBUTION | | System - | | | | | WIDTH | | [facility] | | | | | (RATIO) BY | | | | | | | AUTOMATED | | | | | | | COUNT | | | | | | + + + + + + + | SODIUM | 2022-05-14 | [facility] | 137 | mmol/l | (missing) | | (MMOL/L) IN | 08:36 | Health | | | | | SER/PLAS | | System - | | | | | | | [facility] | | | | + + + + + + + | SODIUM | 2022-05-14 | [facility] | 137 | mmol/l | (missing) | | (MMOL/L) IN | 08:36 | Health | | | | | SER/PLAS | | System - | | | | | | | [facility] | | | | + + + + + + + | ALANINE | 2022-05-14 | [facility] | 14 | u/l | (missing) | | AMINOTRANSFE | 08:36 | Health | | | | | RASE (SGPT) | | System - | | | | | (U/L) IN | | [facility] | | | | | SER/PLAS | | | | | | + + + + + + + | ALANINE | 2022-05-14 | [facility] | 14 | u/l | (missing) | | AMINOTRANSFE | 08:36 | Health | | | | | RASE (SGPT) | | System - | | | | | (U/L) IN | | [facility] | | | | | SER/PLAS | | | | | | + + + + + + + | HEMOGLOBIN | 2022-05-14 | [facility] | 15.2 | g/dl | (missing) | | (G/DL) IN | 08:36 | Health | | | | | BLOOD | | System - | | | | | | | [facility] | | | | + + + + + + + | HEMOGLOBIN | 2022-05-14 | [facility] | 15.2 | g/dl | (missing) | | (G/DL) IN | 08:36 | Health | | | | | BLOOD | | System - | | | | | | | [facility] | | | | + + + + + + + | TSH | 2022-05-14 | [facility] | 2.18 | mciu/ml | (missing) | | (THYROTROPIN | 08:36 | Health | | | | | ) (UIU/ML) | | System - | | | | | IN SER/PLAS | | [facility] | | | | + + + + + + + | TSH | 2022-05-14 | [facility] | 2.18 | mciu/ml | (missing) | | (THYROTROPIN | 08:36 | Health | | | | | ) (UIU/ML) | | System - | | | | | IN SER/PLAS | | [facility] | | | | + + + + + + + | LYMPHOCYTES | 2022-05-14 | [facility] | 2.8 | k/mcl | (missing) | | (10*3/UL) | 08:36 | Health | | | | | IN BLOOD BY | | System - | | | | | AUTOMATED | | [facility] | | | | | COUNT | | | | | | + + + + + + + | LYMPHOCYTES | 2022-05-14 | [facility] | 2.8 | k/mcl | (missing) | | (10*3/UL) | 08:36 | Health | | | | | IN BLOOD BY | | System - | | | | | AUTOMATED | | [facility] | | | | | COUNT | | | | | | + + + + + + + | CARBON | 2022-05-14 | [facility] | 20 | mmol/l | (missing) | | DIOXIDE | 08:36 | Health | | | | | (CO2), TOTAL | | System - | | | | | (MMOL/L) IN | | [facility] | | | | | SER/PLAS | | | | | | + + + + + + + | CARBON | 2022-05-14 | [facility] | 20 | mmol/l | (missing) | | DIOXIDE | 08:36 | Health | | | | | (CO2), TOTAL | | System - | | | | | (MMOL/L) IN | | [facility] | | | | | SER/PLAS | | | | | | + + + + + + + | SQUAMOUS | 2022-05-14 | [facility] | 25 | /hpf | (missing) | | EPITHELIAL | 08:36 | Health | | | | | CELLS | | System - | | | | | (#/HPF) IN | | [facility] | | | | | URINE | | | | | | | SEDIMENT | | | | | | + + + + + + + | SQUAMOUS | 2022-05-14 | [facility] | 25 | /hpf | (missing) | | EPITHELIAL | 08:36 | Health | | | | | CELLS | | System - | | | | | (#/HPF) IN | | [facility] | | | | | URINE | | | | | | | SEDIMENT | | | | | | + + + + + + + | WBC | 2022-05-14 | [facility] | 3 | /hpf | (missing) | | (LEUKOCYTE) | 08:36 | Health | | | | | (#/HPF) IN | | System - | | | | | URINE | | [facility] | | | | | SEDIMENT | | | | | | + + + + + + + | WBC | 2022-05-14 | [facility] | 3 | /hpf | (missing) | | (LEUKOCYTE) | 08:36 | Health | | | | | (#/HPF) IN | | System - | | | | | URINE | | [facility] | | | | | SEDIMENT | | | | | | + + + + + + + | ERYTHROCYTE | 2022-05-14 | [facility] | 30.3 | pg | (missing) | | MEAN | 08:36 | Health | | | | | CORPUSCULAR | | System - | | | | | HEMOGLOBIN | | [facility] | | | | | (PG) BY | | | | | | | AUTOMATED | | | | | | | COUNT | | | | | | + + + + + + + | ERYTHROCYTE | 2022-05-14 | [facility] | 30.3 | pg | (missing) | | MEAN | 08:36 | Health | | | | | CORPUSCULAR | | System - | | | | | HEMOGLOBIN | | [facility] | | | | | (PG) BY | | | | | | | AUTOMATED | | | | | | | COUNT | | | | | | + + + + + + + | | 2022-05-14 | [facility] | 31.7 | % | (missing) | | LYMPHOCYTES/ | 08:36 | Health | | | | | 100 | | System - | | | | | LEUKOCYTES | | [facility] | | | | | IN BLOOD BY | | | | | | | AUTOMATED | | | | | | | COUNT | | | | | | + + + + + + + | | 2022-05-14 | [facility] | 31.7 | % | (missing) | | LYMPHOCYTES/ | 08:36 | Health | | | | | 100 | | System - | | | | | LEUKOCYTES | | [facility] | | | | | IN BLOOD BY | | | | | | | AUTOMATED | | | | | | | COUNT | | | | | | + + + + + + + | PLATELETS | 2022-05-14 | [facility] | 313 | k/mcl | (missing) | | (10*3/UL) IN | 08:36 | Health | | | | | BLOOD | | System - | | | | | AUTOMATED | | [facility] | | | | | COUNT | | | | | | + + + + + + + | PLATELETS | 2022-05-14 | [facility] | 313 | k/mcl | (missing) | | (10*3/UL) IN | 08:36 | Health | | | | | BLOOD | | System - | | | | | AUTOMATED | | [facility] | | | | | COUNT | | | | | | + + + + + + + | ERYTHROCYTE | 2022-05-14 | [facility] | 33.9 | g/dl | (missing) | | MEAN | 08:36 | Health | | | | | CORPUSCULAR | | System - | | | | | HEMOGLOBIN | | [facility] | | | | | CONCENTRATIO | | | | | | | N (G/DL) BY | | | | | | | AUTOMATED | | | | | | + + + + + + + | ERYTHROCYTE | 2022-05-14 | [facility] | 33.9 | g/dl | (missing) | | MEAN | 08:36 | Health | | | | | CORPUSCULAR | | System - | | | | | HEMOGLOBIN | | [facility] | | | | | CONCENTRATIO | | | | | | | N (G/DL) BY | | | | | | | AUTOMATED | | | | | | + + + + + + + | POTASSIUM | 2022-05-14 | [facility] | 4.3 | mmol/l | (missing) | | (MMOL/L) IN | 08:36 | Health | | | | | SER/PLAS | | System - | | | | | | | [facility] | | | | + + + + + + + | POTASSIUM | 2022-05-14 | [facility] | 4.3 | mmol/l | (missing) | | (MMOL/L) IN | 08:36 | Health | | | | | SER/PLAS | | System - | | | | | | | [facility] | | | | + + + + + + + | ALBUMIN | 2022-05-14 | [facility] | 4.4 | g/dl | (missing) | | (G/DL) IN | 08:36 | Health | | | | | SER/PLAS | | System - | | | | | | | [facility] | | | | + + + + + + + | ALBUMIN | 2022-05-14 | [facility] | 4.4 | g/dl | (missing) | | (G/DL) IN | 08:36 | Health | | | | | SER/PLAS | | System - | | | | | | | [facility] | | | | + + + + + + + | HEMATOCRIT | 2022-05-14 | [facility] | 44.8 | % | (missing) | | (%) IN BLOOD | 08:36 | Health | | | | | BY | | System - | | | | | AUTOMATED | | [facility] | | | | | COUNT | | | | | | + + + + + + + | HEMATOCRIT | 2022-05-14 | [facility] | 44.8 | % | (missing) | | (%) IN BLOOD | 08:36 | Health | | | | | BY | | System - | | | | | AUTOMATED | | [facility] | | | | | COUNT | | | | | | + + + + + + + | | 2022-05-14 | [facility] | 5.01 | m/mcl | (missing) | | ERYTHROCYTES | 08:36 | Health | | | | | (10*6/UL) | | System - | | | | | IN BLOOD BY | | [facility] | | | | | AUTOMATED | | | | | | | COUNT | | | | | | + + + + + + + | | 2022-05-14 | [facility] | 5.01 | m/mcl | (missing) | | ERYTHROCYTES | 08:36 | Health | | | | | (10*6/UL) | | System - | | | | | IN BLOOD BY | | [facility] | | | | | AUTOMATED | | | | | | | COUNT | | | | | | + + + + + + + | NEUTROPHILS | 2022-05-14 | [facility] | 5.4 | k/mcl | (missing) | | (10*3/UL) | 08:36 | Health | | | | | IN BLOOD BY | | System - | | | | | AUTOMATED | | [facility] | | | | | COUNT | | | | | | + + + + + + + | NEUTROPHILS | 2022-05-14 | [facility] | 5.4 | k/mcl | (missing) | | (10*3/UL) | 08:36 | Health | | | | | IN BLOOD BY | | System - | | | | | AUTOMATED | | [facility] | | | | | COUNT | | | | | | + + + + + + + | | 2022-05-14 | [facility] | 5.6 | % | (missing) | | MONOCYTES/10 | 08:36 | Health | | | | | 0 LEUKOCYTES | | System - | | | | | IN BLOOD BY | | [facility] | | | | | AUTOMATED | | | | | | | COUNT | | | | | | + + + + + + + | | 2022-05-14 | [facility] | 5.6 | % | (missing) | | MONOCYTES/10 | 08:36 | Health | | | | | 0 LEUKOCYTES | | System - | | | | | IN BLOOD BY | | [facility] | | | | | AUTOMATED | | | | | | | COUNT | | | | | | + + + + + + + | PROTEIN | 2022-05-14 | [facility] | 6.9 | g/dl | (missing) | | (G/DL) IN | 08:36 | Health | | | | | SER/PLAS | | System - | | | | | | | [facility] | | | | + + + + + + + | PROTEIN | 2022-05-14 | [facility] | 6.9 | g/dl | (missing) | | (G/DL) IN | 08:36 | Health | | | | | SER/PLAS | | System - | | | | | | | [facility] | | | | + + + + + + + | | 2022-05-14 | [facility] | 61.2 | % | (missing) | | NEUTROPHILS/ | 08:36 | Health | | | | | 100 | | System - | | | | | LEUKOCYTES | | [facility] | | | | | IN BLOOD BY | | | | | | | AUTOMATED | | | | | | | COUNT | | | | | | + + + + + + + | | 2022-05-14 | [facility] | 61.2 | % | (missing) | | NEUTROPHILS/ | 08:36 | Health | | | | | 100 | | System - | | | | | LEUKOCYTES | | [facility] | | | | | IN BLOOD BY | | | | | | | AUTOMATED | | | | | | | COUNT | | | | | | + + + + + + + | ALKALINE | 2022-05-14 | [facility] | 74 | u/l | (missing) | | PHOSPHATASE | 08:36 | Health | | | | | (U/L) IN | | System - | | | | | SER/PLAS | | [facility] | | | | + + + + + + + | ALKALINE | 2022-05-14 | [facility] | 74 | u/l | (missing) | | PHOSPHATASE | 08:36 | Health | | | | | (U/L) IN | | System - | | | | | SER/PLAS | | [facility] | | | | + + + + + + + | BLOOD UREA | 2022-05-14 | [facility] | 8 | mg/dl | (missing) | | NITROGEN | 08:36 | Health | | | | | (BUN) | | System - | | | | | (MG/DL) IN | | [facility] | | | | | SER/PLAS | | | | | | + + + + + + + | BLOOD UREA | 2022-05-14 | [facility] | 8 | mg/dl | (missing) | | NITROGEN | 08:36 | Health | | | | | (BUN) | | System - | | | | | (MG/DL) IN | | [facility] | | | | | SER/PLAS | | | | | | + + + + + + + | PH OF URINE | 2022-05-14 | [facility] | 8.0 | (missing) | (missing) | | | 08:36 | Health | | | | | | | System - | | | | | | | [facility] | | | | + + + + + + + | PH OF URINE | 2022-05-14 | [facility] | 8.0 | (missing) | (missing) | | | 08:36 | Health | | | | | | | System - | | | | | | | [facility] | | | | + + + + + + + | | 2022-05-14 | [facility] | 8.8 | k/mcl | (missing) | | LEUKOCYTES(1 | 08:36 | Health | | | | | 0*3/UL) IN | | System - | | | | | BLOOD BY | | [facility] | | | | | AUTOMATED | | | | | | | COUNT | | | | | | + + + + + + + | | 2022-05-14 | [facility] | 8.8 | k/mcl | (missing) | | LEUKOCYTES(1 | 08:36 | Health | | | | | 0*3/UL) IN | | System - | | | | | BLOOD BY | | [facility] | | | | | AUTOMATED | | | | | | | COUNT | | | | | | + + + + + + + | ERYTHROCYTE | 2022-05-14 | [facility] | 89.4 | fl | (missing) | | MEAN | 08:36 | Health | | | | | CORPUSCULAR | | System - | | | | | VOLUME (FL) | | [facility] | | | | | BY AUTOMATED | | | | | | | COUNT | | | | | | + + + + + + + | ERYTHROCYTE | 2022-05-14 | [facility] | 89.4 | fl | (missing) | | MEAN | 08:36 | Health | | | | | CORPUSCULAR | | System - | | | | | VOLUME (FL) | | [facility] | | | | | BY AUTOMATED | | | | | | | COUNT | | | | | | + + + + + + + | ASPARTATE | 2022-05-14 | [facility] | 9 | u/l | (missing) | | AMINOTRANSFE | 08:36 | Health | | | | | RASE (SGOT) | | System - | | | | | (U/L) IN | | [facility] | | | | | SER/PLAS | | | | | | + + + + + + + | ASPARTATE | 2022-05-14 | [facility] | 9 | u/l | (missing) | | AMINOTRANSFE | 08:36 | Health | | | | | RASE (SGOT) | | System - | | | | | (U/L) IN | | [facility] | | | | | SER/PLAS | | | | | | + + + + + + + | CALCIUM | 2022-05-14 | [facility] | 9.3 | mg/dl | (missing) | | (MG/DL) IN | 08:36 | Health | | | | | SER/PLAS | | System - | | | | | | | [facility] | | | | + + + + + + + | CALCIUM | 2022-05-14 | [facility] | 9.3 | mg/dl | (missing) | | (MG/DL) IN | 08:36 | Health | | | | | SER/PLAS | | System - | | | | | | | [facility] | | | | + + + + + + + | PLATELET | 2022-05-14 | [facility] | 9.7 | fl | (missing) | | MEAN VOLUME | 08:36 | Health | | | | | (FL) IN | | System - | | | | | BLOOD BY | | [facility] | | | | | AUTOMATED | | | | | | | COUNT | | | | | | + + + + + + + | PLATELET | 2022-05-14 | [facility] | 9.7 | fl | (missing) | | MEAN VOLUME | 08:36 | Health | | | | | (FL) IN | | System - | | | | | BLOOD BY | | [facility] | | | | | AUTOMATED | | | | | | | COUNT | | | | | | + + + + + + + | GLUCOSE, | 2022-05-14 | [facility] | 93 | mg/dl | (missing) | | RANDOM | 08:36 | Health | | | | | (MG/DL) IN | | System - | | | | | SER/PLAS | | [facility] | | | | + + + + + + + | GLUCOSE, | 2022-05-14 | [facility] | 93 | mg/dl | (missing) | | RANDOM | 08:36 | Health | | | | | (MG/DL) IN | | System - | | | | | SER/PLAS | | [facility] | | | | + + + + + + + | | 2022-05-14 | [facility] | Negative | (missing) | (missing) | | BARBITURATES | 08:36 | Health | | | | | PRESENCE IN | | System - | | | | | URINE BY | | [facility] | | | | | SCREEN | | | | | | | METHOD | | | | | | + + + + + + + | | 2022-05-14 | [facility] | Negative | (missing) | (missing) | | BENZODIAZEPI | 08:36 | Health | | | | | SURYA | | System - | | | | | (PRESENCE) | | [facility] | | | | | IN URINE BY | | | | | | | SCREEN | | | | | | | METHOD | | | | | | + + + + + + + | BILIRUBIN, | 2022-05-14 | [facility] | Negative | (missing) | (missing) | | TOTAL | 08:36 | Health | | | | | PRESENCE IN | | System - | | | | | URINE | | [facility] | | | | + + + + + + + | COCAINE | 2022-05-14 | [facility] | Negative | (missing) | (missing) | | (PRESENCE) | 08:36 | Health | | | | | IN URINE BY | | System - | | | | | SCREEN | | [facility] | | | | | METHOD | | | | | | + + + + + + + | GLUCOSE IN | 2022-05-14 | [facility] | Negative | (missing) | (missing) | | URINE | 08:36 | Health | | | | | | | System - | | | | | | | [facility] | | | | + + + + + + + | HEMOGLOBIN | 2022-05-14 | [facility] | Negative | (missing) | (missing) | | PRESENCE IN | 08:36 | Health | | | | | URINE | | System - | | | | | | | [facility] | | | | + + + + + + + | LEUKOCYTE | 2022-05-14 | [facility] | Negative | (missing) | (missing) | | ESTERASE | 08:36 | Health | | | | | PRESENCE IN | | System - | | | | | URINE BY | | [facility] | | | | | TEST STRIP | | | | | | + + + + + + + | METHADONE | 2022-05-14 | [facility] | Negative | (missing) | (missing) | | (PRESENCE) | 08:36 | Health | | | | | IN URINE BY | | System - | | | | | SCREEN | | [facility] | | | | | METHOD | | | | | | + + + + + + + | | 2022-05-14 | [facility] | Negative | (missing) | (missing) | | METHAMPHETAM | 08:36 | Health | | | | | INE | | System - | | | | | (PRESENCE) | | [facility] | | | | | IN URINE BY | | | | | | | SCREEN | | | | | | | METHOD | | | | | | + + + + + + + | NITRITE | 2022-05-14 | [facility] | Negative | (missing) | (missing) | | PRESENCE IN | 08:36 | Health | | | | | URINE | | System - | | | | | | | [facility] | | | | + + + + + + + | OPIATES | 2022-05-14 | [facility] | Negative | (missing) | (missing) | | (PRESENCE) | 08:36 | Health | | | | | IN URINE BY | | System - | | | | | SCREEN | | [facility] | | | | | METHOD | | | | | | + + + + + + + | OXYCODONE | 2022-05-14 | [facility] | Negative | (missing) | (missing) | | (PRESENCE) | 08:36 | Health | | | | | IN URINE BY | | System - | | | | | SCREEN | | [facility] | | | | | METHOD | | | | | | + + + + + + + | | 2022-05-14 | [facility] | Negative | (missing) | (missing) | | PHENCYCLIDIN | 08:36 | Health | | | | | E (PRESENCE) | | System - | | | | | IN URINE BY | | [facility] | | | | | SCREEN | | | | | | | METHOD | | | | | | + + + + + + + | PROTEIN IN | 2022-05-14 | [facility] | Negative | (missing) | (missing) | | URINE BY | 08:36 | Health | | | | | TEST STRIP | | System - | | | | | | | [facility] | | | | + + + + + + + | THC | 2022-05-14 | [facility] | Negative | (missing) | (missing) | | (CANNABINOID | 08:36 | Health | | | | | ) IN URINE | | System - | | | | | BY SCREEN | | [facility] | | | | | METHOD | | | | | | + + + + + + + | TRICYCLIC | 2022-05-14 | [facility] | Negative | (missing) | (missing) | | ANTIDEPRESSA | 08:36 | Health | | | | | NTS | | System - | | | | | (PRESENCE) | | [facility] | | | | | IN URINE | | | | | | + + + + + + + | | 2022-05-14 | [facility] | Negative | (missing) | (missing) | | PHENCYCLIDIN | 08:36 | Health | | | | | E (PRESENCE) | | System - | | | | | IN URINE BY | | [facility] | | | | | SCREEN | | | | | | | METHOD | | | | | | + + + + + + + | THC | 2022-05-14 | [facility] | Negative | (missing) | (missing) | | (CANNABINOID | 08:36 | Health | | | | | ) IN URINE | | System - | | | | | BY SCREEN | | [facility] | | | | | METHOD | | | | | | + + + + + + + | OPIATES | 2022-05-14 | [facility] | Negative | (missing) | (missing) | | (PRESENCE) | 08:36 | Health | | | | | IN URINE BY | | System - | | | | | SCREEN | | [facility] | | | | | METHOD | | | | | | + + + + + + + | TRICYCLIC | 2022-05-14 | [facility] | Negative | (missing) | (missing) | | ANTIDEPRESSA | 08:36 | Health | | | | | NTS | | System - | | | | | (PRESENCE) | | [facility] | | | | | IN URINE | | | | | | + + + + + + + | AMPHETAMINE | 2022-05-14 | [facility] | Negative | (missing) | (missing) | | (PRESENCE) | 08:36 | Health | | | | | IN URINE BY | | System - | | | | | SCREEN | | [facility] | | | | | METHOD | | | | | | + + + + + + + | | 2022-05-14 | [facility] | Negative | (missing) | (missing) | | METHAMPHETAM | 08:36 | Health | | | | | INE | | System - | | | | | (PRESENCE) | | [facility] | | | | | IN URINE BY | | | | | | | SCREEN | | | | | | | METHOD | | | | | | + + + + + + + | OXYCODONE | 2022-05-14 | [facility] | Negative | (missing) | (missing) | | (PRESENCE) | 08:36 | Health | | | | | IN URINE BY | | System - | | | | | SCREEN | | [facility] | | | | | METHOD | | | | | | + + + + + + + | BILIRUBIN, | 2022-05-14 | [facility] | Negative | (missing) | (missing) | | TOTAL | 08:36 | Health | | | | | PRESENCE IN | | System - | | | | | URINE | | [facility] | | | | + + + + + + + | GLUCOSE IN | 2022-05-14 | [facility] | Negative | (missing) | (missing) | | URINE | 08:36 | Health | | | | | | | System - | | | | | | | [facility] | | | | + + + + + + + | COCAINE | 2022-05-14 | [facility] | Negative | (missing) | (missing) | | (PRESENCE) | 08:36 | Health | | | | | IN URINE BY | | System - | | | | | SCREEN | | [facility] | | | | | METHOD | | | | | | + + + + + + + | NITRITE | 2022-05-14 | [facility] | Negative | (missing) | (missing) | | PRESENCE IN | 08:36 | Health | | | | | URINE | | System - | | | | | | | [facility] | | | | + + + + + + + | PROTEIN IN | 2022-05-14 | [facility] | Negative | (missing) | (missing) | | URINE BY | 08:36 | Health | | | | | TEST STRIP | | System - | | | | | | | [facility] | | | | + + + + + + + | | 2022-05-14 | [facility] | Negative | (missing) | (missing) | | BARBITURATES | 08:36 | Health | | | | | PRESENCE IN | | System - | | | | | URINE BY | | [facility] | | | | | SCREEN | | | | | | | METHOD | | | | | | + + + + + + + | | 2022-05-14 | [facility] | Negative | (missing) | (missing) | | BENZODIAZEPI | 08:36 | Health | | | | | SURYA | | System - | | | | | (PRESENCE) | | [facility] | | | | | IN URINE BY | | | | | | | SCREEN | | | | | | | METHOD | | | | | | + + + + + + + | METHADONE | 2022-05-14 | [facility] | Negative | (missing) | (missing) | | (PRESENCE) | 08:36 | Health | | | | | IN URINE BY | | System - | | | | | SCREEN | | [facility] | | | | | METHOD | | | | | | + + + + + + + | HEMOGLOBIN | 2022-05-14 | [facility] | Negative | (missing) | (missing) | | PRESENCE IN | 08:36 | Health | | | | | URINE | | System - | | | | | | | [facility] | | | | + + + + + + + | LEUKOCYTE | 2022-05-14 | [facility] | Negative | (missing) | (missing) | | ESTERASE | 08:36 | Health | | | | | PRESENCE IN | | System - | | | | | URINE BY | | [facility] | | | | | TEST STRIP | | | | | | + + + + + + + | AMPHETAMINE | 2022-05-14 | [facility] | Negative | (missing) | (missing) | | (PRESENCE) | 08:36 | Health | | | | | IN URINE BY | | System - | | | | | SCREEN | | [facility] | | | | | METHOD | | | | | | + + + + + + + | CLARITY OF | 2022-05-14 | [facility] | Slightly | (missing) | (missing) | | URINE | 08:36 | Health | Cloudy | | | | | | System - | | | | | | | [facility] | | | | + + + + + + + | CLARITY OF | 2022-05-14 | [facility] | Slightly | (missing) | (missing) | | URINE | 08:36 | Health | Cloudy | | | | | | System - | | | | | | | [facility] | | | | + + + + + + + | KETONES IN | 2022-05-14 | [facility] | Trace | (missing) | (missing) | | URINE | 08:36 | Health | | | | | | | System - | | | | | | | [facility] | | | | + + + + + + + | KETONES IN | 2022-05-14 | [facility] | Trace | (missing) | (missing) | | URINE | 08:36 | Health | | | | | | | System - | | | | | | | [facility] | | | | + + + + + + + | COLOR OF | 2022-05-14 | [facility] | Yellow | (missing) | (missing) | | URINE | 08:36 | Health | | | | | | | System - | | | | | | | [facility] | | | | + + + + + + + | COLOR OF | 2022-05-14 | [facility] | Yellow | (missing) | (missing) | | URINE | 08:36 | Health | | | | | | | System - | | | | | | | [facility] | | | | + + + + + + + + + | Result panel 66 | + + + + + + + + + | [facility] QUAL | 2022-05-14 | [facility] | Negative | (missing) | (missing) | | (CHORIOGONAD | 09:00 | Health | | | | | OTROPIN) IN | | System - | | | | | SER/PLAS | | [facility] | | | | + + + + + + + | [facility] QUAL | 2022-05-14 | [facility] | Negative | (missing) | (missing) | | (CHORIOGONAD | 09:00 | Health | | | | | OTROPIN) IN | | System - | | | | | SER/PLAS | | [facility] | | | | + + + + + + + + + | Result panel 67 | + + + + + + + + + | | 2022-05-17 | [facility] | 0.2 | mg/dl | (missing) | | UROBILINOGEN | 10:11 | Health | | | | | (MG/DL) IN | | System - | | | | | URINE BY | | [facility] | | | | | TEST STRIP | | | | | | + + + + + + + | | 2022-05-17 | [facility] | 0.2 | mg/dl | (missing) | | UROBILINOGEN | 10:11 | Health | | | | | (MG/DL) IN | | System - | | | | | URINE BY | | [facility] | | | | | TEST STRIP | | | | | | + + + + + + + | KETONES IN | 2022-05-17 | [facility] | 1 | (missing) | (missing) | | URINE | 10:11 | Health | | | | | | | System - | | | | | | | [facility] | | | | + + + + + + + | KETONES IN | 2022-05-17 | [facility] | 1 | (missing) | (missing) | | URINE | 10:11 | Health | | | | | | | System - | | | | | | | [facility] | | | | + + + + + + + | RBC (#/HPF) | 2022-05-17 | [facility] | 1 | /hpf | (missing) | | IN URINE | 10:11 | Health | | | | | SEDIMENT | | System - | | | | | | | [facility] | | | | + + + + + + + | RBC (#/HPF) | 2022-05-17 | [facility] | 1 | /hpf | (missing) | | IN URINE | 10:11 | Health | | | | | SEDIMENT | | System - | | | | | | | [facility] | | | | + + + + + + + | SPECIFIC | 2022-05-17 | [facility] | 1.020 | (missing) | (missing) | | GRAVITY OF | 10:11 | Health | | | | | URINE BY | | System - | | | | | AUTOMATED | | [facility] | | | | | TEST STRIP | | | | | | + + + + + + + | SPECIFIC | 2022-05-17 | [facility] | 1.020 | (missing) | (missing) | | GRAVITY OF | 10:11 | Health | | | | | URINE BY | | System - | | | | | AUTOMATED | | [facility] | | | | | TEST STRIP | | | | | | + + + + + + + | SQUAMOUS | 2022-05-17 | [facility] | 12 | /hpf | (missing) | | EPITHELIAL | 10:11 | Health | | | | | CELLS | | System - | | | | | (#/HPF) IN | | [facility] | | | | | URINE | | | | | | | SEDIMENT | | | | | | + + + + + + + | SQUAMOUS | 2022-05-17 | [facility] | 12 | /hpf | (missing) | | EPITHELIAL | 10:11 | Health | | | | | CELLS | | System - | | | | | (#/HPF) IN | | [facility] | | | | | URINE | | | | | | | SEDIMENT | | | | | | + + + + + + + | BACTERIA | 2022-05-17 | [facility] | 2 | /hpf | (missing) | | (#/HPF) IN | 10:11 | Health | | | | | URINE | | System - | | | | | | | [facility] | | | | + + + + + + + | BACTERIA | 2022-05-17 | [facility] | 2 | /hpf | (missing) | | (#/HPF) IN | 10:11 | Health | | | | | URINE | | System - | | | | | | | [facility] | | | | + + + + + + + | WBC | 2022-05-17 | [facility] | 3 | /hpf | (missing) | | (LEUKOCYTE) | 10:11 | Health | | | | | (#/HPF) IN | | System - | | | | | URINE | | [facility] | | | | | SEDIMENT | | | | | | + + + + + + + | WBC | 2022-05-17 | [facility] | 3 | /hpf | (missing) | | (LEUKOCYTE) | 10:11 | Health | | | | | (#/HPF) IN | | System - | | | | | URINE | | [facility] | | | | | SEDIMENT | | | | | | + + + + + + + | PH OF URINE | 2022-05-17 | [facility] | 8.0 | (missing) | (missing) | | | 10:11 | Health | | | | | | | System - | | | | | | | [facility] | | | | + + + + + + + | PH OF URINE | 2022-05-17 | [facility] | 8.0 | (missing) | (missing) | | | 10:11 | Health | | | | | | | System - | | | | | | | [facility] | | | | + + + + + + + | CLARITY OF | 2022-05-17 | [facility] | Hazy | (missing) | (missing) | | URINE | 10:11 | Health | | | | | | | System - | | | | | | | [facility] | | | | + + + + + + + | CLARITY OF | 2022-05-17 | [facility] | Hazy | (missing) | (missing) | | URINE | 10:11 | Health | | | | | | | System - | | | | | | | [facility] | | | | + + + + + + + | | 2022-05-17 | [facility] | Negative | (missing) | (missing) | | BARBITURATES | 10:11 | Health | | | | | PRESENCE IN | | System - | | | | | URINE BY | | [facility] | | | | | SCREEN | | | | | | | METHOD | | | | | | + + + + + + + | BILIRUBIN, | 2022-05-17 | [facility] | Negative | (missing) | (missing) | | TOTAL | 10:11 | Health | | | | | PRESENCE IN | | System - | | | | | URINE | | [facility] | | | | + + + + + + + | COCAINE | 2022-05-17 | [facility] | Negative | (missing) | (missing) | | (PRESENCE) | 10:11 | Health | | | | | IN URINE BY | | System - | | | | | SCREEN | | [facility] | | | | | METHOD | | | | | | + + + + + + + | GLUCOSE IN | 2022-05-17 | [facility] | Negative | (missing) | (missing) | | URINE | 10:11 | Health | | | | | | | System - | | | | | | | [facility] | | | | + + + + + + + | HEMOGLOBIN | 2022-05-17 | [facility] | Negative | (missing) | (missing) | | PRESENCE IN | 10:11 | Health | | | | | URINE | | System - | | | | | | | [facility] | | | | + + + + + + + | METHADONE | 2022-05-17 | [facility] | Negative | (missing) | (missing) | | (PRESENCE) | 10:11 | Health | | | | | IN URINE BY | | System - | | | | | SCREEN | | [facility] | | | | | METHOD | | | | | | + + + + + + + | | 2022-05-17 | [facility] | Negative | (missing) | (missing) | | METHAMPHETAM | 10:11 | Health | | | | | INE | | System - | | | | | (PRESENCE) | | [facility] | | | | | IN URINE BY | | | | | | | SCREEN | | | | | | | METHOD | | | | | | + + + + + + + | NITRITE | 2022-05-17 | [facility] | Negative | (missing) | (missing) | | PRESENCE IN | 10:11 | Health | | | | | URINE | | System - | | | | | | | [facility] | | | | + + + + + + + | OPIATES | 2022-05-17 | [facility] | Negative | (missing) | (missing) | | (PRESENCE) | 10:11 | Health | | | | | IN URINE BY | | System - | | | | | SCREEN | | [facility] | | | | | METHOD | | | | | | + + + + + + + | OXYCODONE | 2022-05-17 | [facility] | Negative | (missing) | (missing) | | ([facility]) | 10:11 | Health | | | | | IN URINE BY | | System - | | | | | SCREEN | | [facility] | | | | | METHOD | | | | | | + + + + + + + | | 2022-05-17 | [facility] | Negative | (missing) | (missing) | | PHENCYCLIDIN | 10:11 | Health | | | | | E ([facility]) | | System - | | | | | IN URINE BY | | [facility] | | | | | SCREEN | | | | | | | METHOD | | | | | | + + + + + + + | PROTEIN IN | 2022-05-17 | [facility] | Negative | (missing) | (missing) | | URINE BY | 10:11 | Health | | | | | TEST STRIP | | System - | | | | | | | [facility] | | | | + + + + + + + | THC | 2022-05-17 | [facility] | Negative | (missing) | (missing) | | (CANNABINOID | 10:11 | Health | | | | | ) IN URINE | | System - | | | | | BY SCREEN | | [facility] | | | | | METHOD | | | | | | + + + + + + + | TRICYCLIC | 2022-05-17 | [facility] | Negative | (missing) | (missing) | | ANTIDEPRESSA | 10:11 | Health | | | | | NTS | | System - | | | | | ([facility]) | | [facility] | | | | | IN URINE | | | | | | + + + + + + + | | 2022-05-17 | [facility] | Negative | (missing) | (missing) | | PHENCYCLIDIN | 10:11 | Health | | | | | E ([facility]) | | System - | | | | | IN URINE BY | | [facility] | | | | | SCREEN | | | | | | | METHOD | | | | | | + + + + + + + | THC | 2022-05-17 | [facility] | Negative | (missing) | (missing) | | (CANNABINOID | 10:11 | Health | | | | | ) IN URINE | | System - | | | | | BY SCREEN | | [facility] | | | | | METHOD | | | | | | + + + + + + + | OPIATES | 2022-05-17 | [facility] | Negative | (missing) | (missing) | | ([facility]) | 10:11 | Health | | | | | IN URINE BY | | System - | | | | | SCREEN | | [facility] | | | | | METHOD | | | | | | + + + + + + + | TRICYCLIC | 2022-05-17 | [facility] | Negative | (missing) | (missing) | | ANTIDEPRESSA | 10:11 | Health | | | | | NTS | | System - | | | | | ([facility]) | | [facility] | | | | | IN URINE | | | | | | + + + + + + + | AMPHETAMINE | 2022-05-17 | [facility] | Negative | (missing) | (missing) | | ([facility]) | 10:11 | Health | | | | | IN URINE BY | | System - | | | | | SCREEN | | [facility] | | | | | METHOD | | | | | | + + + + + + + | | 2022-05-17 | [facility] | Negative | (missing) | (missing) | | METHAMPHETAM | 10:11 | Health | | | | | INE | | System - | | | | | ([facility]) | | [facility] | | | | | IN URINE BY | | | | | | | SCREEN | | | | | | | METHOD | | | | | | + + + + + + + | OXYCODONE | 2022-05-17 | [facility] | Negative | (missing) | (missing) | | ([facility]) | 10:11 | Health | | | | | IN URINE BY | | System - | | | | | SCREEN | | [facility] | | | | | METHOD | | | | | | + + + + + + + | BILIRUBIN, | 2022-05-17 | [facility] | Negative | (missing) | (missing) | | TOTAL | 10:11 | Health | | | | | [facility] IN | | System - | | | | | URINE | | [facility] | | | | + + + + + + + | GLUCOSE IN | 2022-05-17 | [facility] | Negative | (missing) | (missing) | | URINE | 10:11 | Health | | | | | | | System - | | | | | | | [facility] | | | | + + + + + + + | COCAINE | 2022-05-17 | [facility] | Negative | (missing) | (missing) | | ([facility]) | 10:11 | Health | | | | | IN URINE BY | | System - | | | | | SCREEN | | [facility] | | | | | METHOD | | | | | | + + + + + + + | NITRITE | 2022-05-17 | [facility] | Negative | (missing) | (missing) | | [facility] IN | 10:11 | Health | | | | | URINE | | System - | | | | | | | [facility] | | | | + + + + + + + | PROTEIN IN | 2022-05-17 | [facility] | Negative | (missing) | (missing) | | URINE BY | 10:11 | Health | | | | | TEST STRIP | | System - | | | | | | | [facility] | | | | + + + + + + + | | 2022-05-17 | [facility] | Negative | (missing) | (missing) | | BARBITURATES | 10:11 | Health | | | | | [facility] IN | | System - | | | | | URINE BY | | [facility] | | | | | SCREEN | | | | | | | METHOD | | | | | | + + + + + + + | METHADONE | 2022-05-17 | [facility] | Negative | (missing) | (missing) | | ([facility]) | 10:11 | Health | | | | | IN URINE BY | | System - | | | | | SCREEN | | [facility] | | | | | METHOD | | | | | | + + + + + + + | HEMOGLOBIN | 2022-05-17 | [facility] | Negative | (missing) | (missing) | | [facility] IN | 10:11 | Health | | | | | URINE | | System - | | | | | | | [facility] | | | | + + + + + + + | AMPHETAMINE | 2022-05-17 | [facility] | Negative | (missing) | (missing) | | ([facility]) | 10:11 | Health | | | | | IN URINE BY | | System - | | | | | SCREEN | | [facility] | | | | | METHOD | | | | | | + + + + + + + | | 2022-05-17 | [facility] | Presumptive | (missing) | (missing) | | BENZODIAZEPI | 10:11 | Health | Positive | | | | SURYA | | System - | | | | | ([facility]) | | [facility] | | | | | IN URINE BY | | | | | | | SCREEN | | | | | | | METHOD | | | | | | + + + + + + + | | 2022-05-17 | [facility] | Presumptive | (missing) | (missing) | | BENZODIAZEPI | 10:11 | Health | Positive | | | | SURYA | | System - | | | | | ([facility]) | | [facility] | | | | | IN URINE BY | | | | | | | SCREEN | | | | | | | METHOD | | | | | | + + + + + + + | LEUKOCYTE | 2022-05-17 | [facility] | Trace | (missing) | (missing) | | ESTERASE | 10:11 | Health | | | | | [facility] IN | | System - | | | | | URINE BY | | [facility] | | | | | TEST STRIP | | | | | | + + + + + + + | LEUKOCYTE | 2022-05-17 | [facility] | Trace | (missing) | (missing) | | ESTERASE | 10:11 | Health | | | | | [facility] IN | | System - | | | | | URINE BY | | [facility] | | | | | TEST STRIP | | | | | | + + + + + + + | COLOR OF | 2022-05-17 | [facility] | Yellow | (missing) | (missing) | | URINE | 10:11 | Health | | | | | | | System - | | | | | | | [facility] | | | | + + + + + + + | COLOR OF | 2022-05-17 | [facility] | Yellow | (missing) | (missing) | | URINE | 10:11 | Health | | | | | | | System - | | | | | | | [facility] | | | | + + + + + + + + + | Result panel 68 | + + + + + + + + + | EGFR | 2022-05-17 | [facility] | > | | (missing) | | (GLOMERULAR | 10:54 | Health | | ml/min/1.73m | | | FILTRATION | | System - | | ? | | | RATE) | | [facility] | | | | | ML/MIN/1.73 | | | | | | | SQ M. | | | | | | + + + + + + + | EGFR | 2022-05-17 | [facility] | > | | (missing) | | (GLOMERULAR | 10:54 | Health | | ml/min/1.73m | | | FILTRATION | | System - | | ? | | | RATE) | | [facility] | | | | | ML/MIN/1.73 | | | | | | | SQ M. | | | | | | + + + + + + + | ALCOHOL | 2022-05-17 | [facility] | < | g/dl | (missing) | | (G/DL) IN | 10:54 | Health | | | | | SER/PLAS | | System - | | | | | | | [facility] | | | | + + + + + + + | ALCOHOL | 2022-05-17 | [facility] | < | g/dl | (missing) | | (G/DL) IN | 10:54 | Health | | | | | SER/PLAS | | System - | | | | | | | [facility] | | | | + + + + + + + | SALICYLATE | 2022-05-17 | [facility] | < | mg/dl | (missing) | | (MG/DL) IN | 10:54 | Health | | | | | SER/PLAS | | System - | | | | | | | [facility] | | | | + + + + + + + | BILIRUBIN | 2022-05-17 | [facility] | < | mg/dl | (missing) | | TOTAL | 10:54 | Health | | | | | (MG/DL) IN | | System - | | | | | SER/PLAS | | [facility] | | | | + + + + + + + | BILIRUBIN | 2022-05-17 | [facility] | < | mg/dl | (missing) | | TOTAL | 10:54 | Health | | | | | (MG/DL) IN | | System - | | | | | SER/PLAS | | [facility] | | | | + + + + + + + | SALICYLATE | 2022-05-17 | [facility] | < | mg/dl | (missing) | | (MG/DL) IN | 10:54 | Health | | | | | SER/PLAS | | System - | | | | | | | [facility] | | | | + + + + + + + | NRBC/100 | 2022-05-17 | [facility] | 0.0 | % | (missing) | | WBCS BY | 10:54 | Health | | | | | AUTOMATED | | System - | | | | | COUNT | | [facility] | | | | + + + + + + + | | 2022-05-17 | [facility] | 0.0 | % | (missing) | | EOSINOPHILS/ | 10:54 | Health | | | | | 100 | | System - | | | | | LEUKOCYTES | | [facility] | | | | | IN BLOOD BY | | | | | | | AUTOMATED | | | | | | | COUNT | | | | | | + + + + + + + | NRBC/100 | 2022-05-17 | [facility] | 0.0 | % | (missing) | | WBCS BY | 10:54 | Health | | | | | AUTOMATED | | System - | | | | | COUNT | | [facility] | | | | + + + + + + + | | 2022-05-17 | [facility] | 0.0 | % | (missing) | | EOSINOPHILS/ | 10:54 | Health | | | | | 100 | | System - | | | | | LEUKOCYTES | | [facility] | | | | | IN BLOOD BY | | | | | | | AUTOMATED | | | | | | | COUNT | | | | | | + + + + + + + | BASOPHILS | 2022-05-17 | [facility] | 0.0 | k/mcl | (missing) | | (10*3/UL) IN | 10:54 | Health | | | | | BLOOD BY | | System - | | | | | AUTOMATED | | [facility] | | | | | COUNT | | | | | | + + + + + + + | | 2022-05-17 | [facility] | 0.0 | k/mcl | (missing) | | NRBC(10*3/UL | 10:54 | Health | | | | | ) IN BLOOD | | System - | | | | | BY AUTOMATED | | [facility] | | | | | COUNT | | | | | | + + + + + + + | EOSINOPHILS | 2022-05-17 | [facility] | 0.0 | k/mcl | (missing) | | (10*3/UL) | 10:54 | Health | | | | | IN BLOOD BY | | System - | | | | | AUTOMATED | | [facility] | | | | | COUNT | | | | | | + + + + + + + | BASOPHILS | 2022-05-17 | [facility] | 0.0 | k/mcl | (missing) | | (10*3/UL) IN | 10:54 | Health | | | | | BLOOD BY | | System - | | | | | AUTOMATED | | [facility] | | | | | COUNT | | | | | | + + + + + + + | EOSINOPHILS | 2022-05-17 | [facility] | 0.0 | k/mcl | (missing) | | (10*3/UL) | 10:54 | Health | | | | | IN BLOOD BY | | System - | | | | | AUTOMATED | | [facility] | | | | | COUNT | | | | | | + + + + + + + | | 2022-05-17 | [facility] | 0.0 | k/mcl | (missing) | | NRBC(10*3/UL | 10:54 | Health | | | | | ) IN BLOOD | | System - | | | | | BY AUTOMATED | | [facility] | | | | | COUNT | | | | | | + + + + + + + | IMMATURE | 2022-05-17 | [facility] | 0.05 | k/mcl | (missing) | | GRANULOCYTE | 10:54 | Health | | | | | (ABS) | | System - | | | | | | | [facility] | | | | + + + + + + + | IMMATURE | 2022-05-17 | [facility] | 0.05 | k/mcl | (missing) | | GRANULOCYTE | 10:54 | Health | | | | | (ABS) | | System - | | | | | | | [facility] | | | | + + + + + + + | | 2022-05-17 | [facility] | 0.4 | % | (missing) | | BASOPHILS/10 | 10:54 | Health | | | | | 0 LEUKOCYTES | | System - | | | | | IN BLOOD BY | | [facility] | | | | | AUTOMATED | | | | | | | COUNT | | | | | | + + + + + + + | | 2022-05-17 | [facility] | 0.4 | % | (missing) | | BASOPHILS/10 | 10:54 | Health | | | | | 0 LEUKOCYTES | | System - | | | | | IN BLOOD BY | | [facility] | | | | | AUTOMATED | | | | | | | COUNT | | | | | | + + + + + + + | IMMATURE | 2022-05-17 | [facility] | 0.5 | % | (missing) | | GRANULOCYTE | 10:54 | Health | | | | | % (AUTO) | | System - | | | | | | | [facility] | | | | + + + + + + + | IMMATURE | 2022-05-17 | [facility] | 0.5 | % | (missing) | | GRANULOCYTE | 10:54 | Health | | | | | % (AUTO) | | System - | | | | | | | [facility] | | | | + + + + + + + | MONOCYTES | 2022-05-17 | [facility] | 0.5 | k/mcl | (missing) | | (10*3/UL) IN | 10:54 | Health | | | | | BLOOD BY | | System - | | | | | AUTOMATED | | [facility] | | | | | COUNT | | | | | | + + + + + + + | MONOCYTES | 2022-05-17 | [facility] | 0.5 | k/mcl | (missing) | | (10*3/UL) IN | 10:54 | Health | | | | | BLOOD BY | | System - | | | | | AUTOMATED | | [facility] | | | | | COUNT | | | | | | + + + + + + + | CREATININE | 2022-05-17 | [facility] | 0.6 | mg/dl | (missing) | | (MG/DL) IN | 10:54 | Health | | | | | SER/PLAS | | System - | | | | | | | [facility] | | | | + + + + + + + | CREATININE | 2022-05-17 | [facility] | 0.6 | mg/dl | (missing) | | (MG/DL) IN | 10:54 | Health | | | | | SER/PLAS | | System - | | | | | | | [facility] | | | | + + + + + + + | BLOOD UREA | 2022-05-17 | [facility] | 10 | mg/dl | (missing) | | NITROGEN | 10:54 | Health | | | | | (BUN) | | System - | | | | | (MG/DL) IN | | [facility] | | | | | SER/PLAS | | | | | | + + + + + + + | BLOOD UREA | 2022-05-17 | [facility] | 10 | mg/dl | (missing) | | NITROGEN | 10:54 | Health | | | | | (BUN) | | System - | | | | | (MG/DL) IN | | [facility] | | | | | SER/PLAS | | | | | | + + + + + + + | ASPARTATE | 2022-05-17 | [facility] | 10 | u/l | (missing) | | AMINOTRANSFE | 10:54 | Health | | | | | RASE (SGOT) | | System - | | | | | (U/L) IN | | [facility] | | | | | SER/PLAS | | | | | | + + + + + + + | ASPARTATE | 2022-05-17 | [facility] | 10 | u/l | (missing) | | AMINOTRANSFE | 10:54 | Health | | | | | RASE (SGOT) | | System - | | | | | (U/L) IN | | [facility] | | | | | SER/PLAS | | | | | | + + + + + + + | CHLORIDE | 2022-05-17 | [facility] | 106 | mmol/l | (missing) | | (MMOL/L) IN | 10:54 | Health | | | | | SER/PLAS | | System - | | | | | | | [facility] | | | | + + + + + + + | CHLORIDE | 2022-05-17 | [facility] | 106 | mmol/l | (missing) | | (MMOL/L) IN | 10:54 | Health | | | | | SER/PLAS | | System - | | | | | | | [facility] | | | | + + + + + + + | ALANINE | 2022-05-17 | [facility] | 11 | u/l | (missing) | | AMINOTRANSFE | 10:54 | Health | | | | | RASE (SGPT) | | System - | | | | | (U/L) IN | | [facility] | | | | | SER/PLAS | | | | | | + + + + + + + | ALANINE | 2022-05-17 | [facility] | 11 | u/l | (missing) | | AMINOTRANSFE | 10:54 | Health | | | | | RASE (SGPT) | | System - | | | | | (U/L) IN | | [facility] | | | | | SER/PLAS | | | | | | + + + + + + + | ERYTHROCYTE | 2022-05-17 | [facility] | 12.6 | % | (missing) | | | 10:54 | Health | | | | | DISTRIBUTION | | System - | | | | | WIDTH | | [facility] | | | | | (RATIO) BY | | | | | | | AUTOMATED | | | | | | | COUNT | | | | | | + + + + + + + | ERYTHROCYTE | 2022-05-17 | [facility] | 12.6 | % | (missing) | | | 10:54 | Health | | | | | DISTRIBUTION | | System - | | | | | WIDTH | | [facility] | | | | | (RATIO) BY | | | | | | | AUTOMATED | | | | | | | COUNT | | | | | | + + + + + + + | SODIUM | 2022-05-17 | [facility] | 139 | mmol/l | (missing) | | (MMOL/L) IN | 10:54 | Health | | | | | SER/PLAS | | System - | | | | | | | [facility] | | | | + + + + + + + | SODIUM | 2022-05-17 | [facility] | 139 | mmol/l | (missing) | | (MMOL/L) IN | 10:54 | Health | | | | | SER/PLAS | | System - | | | | | | | [facility] | | | | + + + + + + + | HEMOGLOBIN | 2022-05-17 | [facility] | 14.1 | g/dl | (missing) | | (G/DL) IN | 10:54 | Health | | | | | BLOOD | | System - | | | | | | | [facility] | | | | + + + + + + + | HEMOGLOBIN | 2022-05-17 | [facility] | 14.1 | g/dl | (missing) | | (G/DL) IN | 10:54 | Health | | | | | BLOOD | | System - | | | | | | | [facility] | | | | + + + + + + + | CARBON | 2022-05-17 | [facility] | 24 | mmol/l | (missing) | | DIOXIDE | 10:54 | Health | | | | | (CO2), TOTAL | | System - | | | | | (MMOL/L) IN | | [facility] | | | | | SER/PLAS | | | | | | + + + + + + + | CARBON | 2022-05-17 | [facility] | 24 | mmol/l | (missing) | | DIOXIDE | 10:54 | Health | | | | | (CO2), TOTAL | | System - | | | | | (MMOL/L) IN | | [facility] | | | | | SER/PLAS | | | | | | + + + + + + + | PLATELETS | 2022-05-17 | [facility] | 298 | k/mcl | (missing) | | (10*3/UL) IN | 10:54 | Health | | | | | BLOOD | | System - | | | | | AUTOMATED | | [facility] | | | | | COUNT | | | | | | + + + + + + + | PLATELETS | 2022-05-17 | [facility] | 298 | k/mcl | (missing) | | (10*3/UL) IN | 10:54 | Health | | | | | BLOOD | | System - | | | | | AUTOMATED | | [facility] | | | | | COUNT | | | | | | + + + + + + + | LYMPHOCYTES | 2022-05-17 | [facility] | 3.1 | k/mcl | (missing) | | (10*3/UL) | 10:54 | Health | | | | | IN BLOOD BY | | System - | | | | | AUTOMATED | | [facility] | | | | | COUNT | | | | | | + + + + + + + | LYMPHOCYTES | 2022-05-17 | [facility] | 3.1 | k/mcl | (missing) | | (10*3/UL) | 10:54 | Health | | | | | IN BLOOD BY | | System - | | | | | AUTOMATED | | [facility] | | | | | COUNT | | | | | | + + + + + + + | ERYTHROCYTE | 2022-05-17 | [facility] | 30.9 | pg | (missing) | | MEAN | 10:54 | Health | | | | | CORPUSCULAR | | System - | | | | | HEMOGLOBIN | | [facility] | | | | | (PG) BY | | | | | | | [facility]OMATED | | | | | | | COUNT | | | | | | + + + + + + + | ERYTHROCYTE | 2022-05-17 | [facility] | 30.9 | pg | (missing) | | MEAN | 10:54 | Health | | | | | CORPUSCULAR | | System - | | | | | HEMOGLOBIN | | [facility] | | | | | (PG) BY | | | | | | | AUTOMATED | | | | | | | COUNT | | | | | | + + + + + + + | | 2022-05-17 | [facility] | 32.8 | % | (missing) | | LYMPHOCYTES/ | 10:54 | Health | | | | | 100 | | System - | | | | | LEUKOCYTES | | [facility] | | | | | IN BLOOD BY | | | | | | | AUTOMATED | | | | | | | COUNT | | | | | | + + + + + + + | | 2022-05-17 | [facility] | 32.8 | % | (missing) | | LYMPHOCYTES/ | 10:54 | Health | | | | | 100 | | System - | | | | | LEUKOCYTES | | [facility] | | | | | IN BLOOD BY | | | | | | | AUTOMATED | | | | | | | COUNT | | | | | | + + + + + + + | LIPASE | 2022-05-17 | [facility] | 33 | u/l | (missing) | | (U/L) IN | 10:54 | Health | | | | | SER/PLAS | | System - | | | | | | | [facility] | | | | + + + + + + + | LIPASE | 2022-05-17 | [facility] | 33 | u/l | (missing) | | (U/L) IN | 10:54 | Health | | | | | SER/PLAS | | System - | | | | | | | [facility] | | | | + + + + + + + | ERYTHROCYTE | 2022-05-17 | [facility] | 34.1 | g/dl | (missing) | | MEAN | 10:54 | Health | | | | | CORPUSCULAR | | System - | | | | | HEMOGLOBIN | | [facility] | | | | | CONCENTRATIO | | | | | | | N (G/DL) BY | | | | | | | AUTOMATED | | | | | | + + + + + + + | ERYTHROCYTE | 2022-05-17 | [facility] | 34.1 | g/dl | (missing) | | MEAN | 10:54 | Health | | | | | CORPUSCULAR | | System - | | | | | HEMOGLOBIN | | [facility] | | | | | CONCENTRATIO | | | | | | | N (G/DL) BY | | | | | | | AUTOMATED | | | | | | + + + + + + + | ALBUMIN | 2022-05-17 | [facility] | 4.1 | g/dl | (missing) | | (G/DL) IN | 10:54 | Health | | | | | SER/PLAS | | System - | | | | | | | [facility] | | | | + + + + + + + | ALBUMIN | 2022-05-17 | [facility] | 4.1 | g/dl | (missing) | | (G/DL) IN | 10:54 | Health | | | | | SER/PLAS | | System - | | | | | | | [facility] | | | | + + + + + + + | POTASSIUM | 2022-05-17 | [facility] | 4.1 | mmol/l | (missing) | | (MMOL/L) IN | 10:54 | Health | | | | | SER/PLAS | | System - | | | | | | | [facility] | | | | + + + + + + + | POTASSIUM | 2022-05-17 | [facility] | 4.1 | mmol/l | (missing) | | (MMOL/L) IN | 10:54 | Health | | | | | SER/PLAS | | System - | | | | | | | [facility] | | | | + + + + + + + | | 2022-05-17 | [facility] | 4.56 | m/mcl | (missing) | | ERYTHROCYTES | 10:54 | Health | | | | | (10*6/UL) | | System - | | | | | IN BLOOD BY | | [facility] | | | | | AUTOMATED | | | | | | | COUNT | | | | | | + + + + + + + | | 2022-05-17 | [facility] | 4.56 | m/mcl | (missing) | | ERYTHROCYTES | 10:54 | Health | | | | | (10*6/UL) | | System - | | | | | IN BLOOD BY | | [facility] | | | | | AUTOMATED | | | | | | | COUNT | | | | | | + + + + + + + | HEMATOCRIT | 2022-05-17 | [facility] | 41.4 | % | (missing) | | (%) IN BLOOD | 10:54 | Health | | | | | BY | | System - | | | | | AUTOMATED | | [facility] | | | | | COUNT | | | | | | + + + + + + + | HEMATOCRIT | 2022-05-17 | [facility] | 41.4 | % | (missing) | | (%) IN BLOOD | 10:54 | Health | | | | | BY | | System - | | | | | AUTOMATED | | [facility] | | | | | COUNT | | | | | | + + + + + + + | | 2022-05-17 | [facility] | 5.7 | % | (missing) | | MONOCYTES/10 | 10:54 | Health | | | | | 0 LEUKOCYTES | | System - | | | | | IN BLOOD BY | | [facility] | | | | | AUTOMATED | | | | | | | COUNT | | | | | | + + + + + + + | | 2022-05-17 | [facility] | 5.7 | % | (missing) | | MONOCYTES/10 | 10:54 | Health | | | | | 0 LEUKOCYTES | | System - | | | | | IN BLOOD BY | | [facility] | | | | | AUTOMATED | | | | | | | COUNT | | | | | | + + + + + + + | NEUTROPHILS | 2022-05-17 | [facility] | 5.7 | k/mcl | (missing) | | (10*3/UL) | 10:54 | Health | | | | | IN BLOOD BY | | System - | | | | | AUTOMATED | | [facility] | | | | | COUNT | | | | | | + + + + + + + | NEUTROPHILS | 2022-05-17 | [facility] | 5.7 | k/mcl | (missing) | | (10*3/UL) | 10:54 | Health | | | | | IN BLOOD BY | | System - | | | | | AUTOMATED | | [facility] | | | | | COUNT | | | | | | + + + + + + + | PROTEIN | 2022-05-17 | [facility] | 6.3 | g/dl | (missing) | | (G/DL) IN | 10:54 | Health | | | | | SER/PLAS | | System - | | | | | | | [facility] | | | | + + + + + + + | PROTEIN | 2022-05-17 | [facility] | 6.3 | g/dl | (missing) | | (G/DL) IN | 10:54 | Health | | | | | SER/PLAS | | System - | | | | | | | [facility] | | | | + + + + + + + | | 2022-05-17 | [facility] | 60.6 | % | (missing) | | NEUTROPHILS/ | 10:54 | Health | | | | | 100 | | System - | | | | | LEUKOCYTES | | [facility] | | | | | IN BLOOD BY | | | | | | | AUTOMATED | | | | | | | COUNT | | | | | | + + + + + + + | | 2022-05-17 | [facility] | 60.6 | % | (missing) | | NEUTROPHILS/ | 10:54 | Health | | | | | 100 | | System - | | | | | LEUKOCYTES | | [facility] | | | | | IN BLOOD BY | | | | | | | AUTOMATED | | | | | | | COUNT | | | | | | + + + + + + + | ALKALINE | 2022-05-17 | [facility] | 66 | u/l | (missing) | | PHOSPHATASE | 10:54 | Health | | | | | (U/L) IN | | System - | | | | | SER/PLAS | | [facility] | | | | + + + + + + + | ALKALINE | 2022-05-17 | [facility] | 66 | u/l | (missing) | | PHOSPHATASE | 10:54 | Health | | | | | (U/L) IN | | System - | | | | | SER/PLAS | | [facility] | | | | + + + + + + + | GLUCOSE, | 2022-05-17 | [facility] | 75 | mg/dl | (missing) | | RANDOM | 10:54 | Health | | | | | (MG/DL) IN | | System - | | | | | SER/PLAS | | [facility] | | | | + + + + + + + | GLUCOSE, | 2022-05-17 | [facility] | 75 | mg/dl | (missing) | | RANDOM | 10:54 | Health | | | | | (MG/DL) IN | | System - | | | | | SER/PLAS | | [facility] | | | | + + + + + + + | CALCIUM | 2022-05-17 | [facility] | 9.0 | mg/dl | (missing) | | (MG/DL) IN | 10:54 | Health | | | | | SER/PLAS | | System - | | | | | | | [facility] | | | | + + + + + + + | CALCIUM | 2022-05-17 | [facility] | 9.0 | mg/dl | (missing) | | (MG/DL) IN | 10:54 | Health | | | | | SER/PLAS | | System - | | | | | | | [facility] | | | | + + + + + + + | ANION GAP | 2022-05-17 | [facility] | 9.0 | mmol/l | (missing) | | IN SER/PLAS | 10:54 | Health | | | | | | | System - | | | | | | | [facility] | | | | + + + + + + + | ANION GAP | 2022-05-17 | [facility] | 9.0 | mmol/l | (missing) | | IN SER/PLAS | 10:54 | Health | | | | | | | System - | | | | | | | [facility] | | | | + + + + + + + | | 2022-05-17 | [facility] | 9.4 | k/mcl | (missing) | | LEUKOCYTES(1 | 10:54 | Health | | | | | 0*3/UL) IN | | System - | | | | | BLOOD BY | | [facility] | | | | | AUTOMATED | | | | | | | COUNT | | | | | | + + + + + + + | | 2022-05-17 | [facility] | 9.4 | k/mcl | (missing) | | LEUKOCYTES(1 | 10:54 | Health | | | | | 0*3/UL) IN | | System - | | | | | BLOOD BY | | [facility] | | | | | AUTOMATED | | | | | | | COUNT | | | | | | + + + + + + + | PLATELET | 2022-05-17 | [facility] | 9.7 | fl | (missing) | | MEAN VOLUME | 10:54 | Health | | | | | (FL) IN | | System - | | | | | BLOOD BY | | [facility] | | | | | AUTOMATED | | | | | | | COUNT | | | | | | + + + + + + + | PLATELET | 2022-05-17 | [facility] | 9.7 | fl | (missing) | | MEAN VOLUME | 10:54 | Health | | | | | (FL) IN | | System - | | | | | BLOOD BY | | [facility] | | | | | AUTOMATED | | | | | | | COUNT | | | | | | + + + + + + + | ERYTHROCYTE | 2022-05-17 | [facility] | 90.8 | fl | (missing) | | MEAN | 10:54 | Health | | | | | CORPUSCULAR | | System - | | | | | VOLUME (FL) | | [facility] | | | | | BY AUTOMATED | | | | | | | COUNT | | | | | | + + + + + + + | ERYTHROCYTE | 2022-05-17 | [facility] | 90.8 | fl | (missing) | | MEAN | 10:54 | Health | | | | | CORPUSCULAR | | System - | | | | | VOLUME (FL) | | [facility] | | | | | BY AUTOMATED | | | | | | | COUNT | | | | | | + + + + + + + | [facility] QUAL | 2022-05-17 | [facility] | Negative | (missing) | (missing) | | (CHORIOGONAD | 10:54 | Health | | | | | OTROPIN) IN | | System - | | | | | SER/PLAS | | [facility] | | | | + + + + + + + | [facility] QUAL | 2022-05-17 | [facility] | Negative | (missing) | (missing) | | (CHORIOGONAD | 10:54 | Health | | | | | OTROPIN) IN | | System - | | | | | SER/PLAS | | [facility] | | | | + + + + + + + + + | Result panel 69 | + + + + + +--------+ + + | TSH | 2022-05-17 | [facility] | 1.64 | mciu/ml | (missing) | | (THYROTROPIN | 11:22 | Health | | | | | ) (UIU/ML) | | System - | | | | | IN SER/PLAS | | [facility] | | | | + + + +--------+ + + | TSH | 2022-05-17 | [facility] | 1.64 | mciu/ml | (missing) | | (THYROTROPIN | 11:22 | Health | | | | | ) (UIU/ML) | | System - | | | | | IN SER/PLAS | | [facility] | | | | + + + +--------+ + + + + | Result panel 70 | + + + + + + + + + | INFLUENZA A | 2022-05-17 | [facility] | Negative | (missing) | (missing) | | | 11:55 | Health | | | | | | | System - | | | | | | | [facility] | | | | + + + + + + + | INFLUENZA B | 2022-05-17 | [facility] | Negative | (missing) | (missing) | | | 11:55 | Health | | | | | | | System - | | | | | | | [facility] | | | | + + + + + + + | RSV | 2022-05-17 | [facility] | Negative | (missing) | (missing) | | | 11:55 | Health | | | | | | | System - | | | | | | | [facility] | | | | + + + + + + + | SARS-COV-2 | 2022-05-17 | [facility] | Negative | (missing) | (missing) | | (COVID19) | 11:55 | Health | | | | | CEPHEID PCR | | System - | | | | | | | [facility] | | | | + + + + + + + | INFLUENZA A | 2022-05-17 | [facility] | Negative | (missing) | (missing) | | | 11:55 | Health | | | | | | | System - | | | | | | | [facility] | | | | + + + + + + + | INFLUENZA B | 2022-05-17 | [facility] | Negative | (missing) | (missing) | | | 11:55 | Health | | | | | | | System - | | | | | | | [facility] | | | | + + + + + + + | RSV | 2022-05-17 | [facility] | Negative | (missing) | (missing) | | | 11:55 | Health | | | | | | | System - | | | | | | | [facility] | | | | + + + + + + + | SARS-COV-2 | 2022-05-17 | [facility] | Negative | (missing) | (missing) | | (COVID19) | 11:55 | Health | | | | | CEPHEID PCR | | System - | | | | | | | [facility] | | | | + + + + + + + + + | Result panel 71 | + + + + + + + + + | EGFR | 2022-07-16 | [facility] | > | | (missing) | | (GLOMERULAR | 19:05 | Health | | ml/min/1.73m | | | FILTRATION | | System - | | ? | | | RATE) | | [facility] | | | | | ML/MIN/1.73 | | | | | | | SQ M. | | | | | | + + + + + + + | EGFR | 2022-07-16 | [facility] | > | | (missing) | | (GLOMERULAR | 19:05 | Health | | ml/min/1.73m | | | FILTRATION | | System - | | ? | | | RATE) | | [facility] | | | | | ML/MIN/1.73 | | | | | | | SQ M. | | | | | | + + + + + + + | ALCOHOL | 2022-07-16 | [facility] | < | g/dl | (missing) | | (G/DL) IN | 19:05 | Health | | | | | SER/PLAS | | System - | | | | | | | [facility] | | | | + + + + + + + | ALCOHOL | 2022-07-16 | [facility] | < | g/dl | (missing) | | (G/DL) IN | 19:05 | Health | | | | | SER/PLAS | | System - | | | | | | | [facility] | | | | + + + + + + + | | 2022-07-16 | [facility] | < | mcg/ml | (missing) | | ACETAMINOPHE | 19:05 | Health | | | | | N (UG/ML) IN | | System - | | | | | SER/PLAS | | [facility] | | | | + + + + + + + | | 2022-07-16 | [facility] | < | mcg/ml | (missing) | | ACETAMINOPHE | 19:05 | Health | | | | | N (UG/ML) IN | | System - | | | | | SER/PLAS | | [facility] | | | | + + + + + + + | SALICYLATE | 2022-07-16 | [facility] | < | mg/dl | (missing) | | (MG/DL) IN | 19:05 | Health | | | | | SER/PLAS | | System - | | | | | | | [facility] | | | | + + + + + + + | SALICYLATE | 2022-07-16 | [facility] | < | mg/dl | (missing) | | (MG/DL) IN | 19:05 | Health | | | | | SER/PLAS | | System - | | | | | | | [facility] | | | | + + + + + + + | NRBC/100 | 2022-07-16 | [facility] | 0.0 | % | (missing) | | WBCS BY | 19:05 | Health | | | | | AUTOMATED | | System - | | | | | COUNT | | [facility] | | | | + + + + + + + | | 2022-07-16 | [facility] | 0.0 | % | (missing) | | EOSINOPHILS/ | 19:05 | Health | | | | | 100 | | System - | | | | | LEUKOCYTES | | [facility] | | | | | IN BLOOD BY | | | | | | | AUTOMATED | | | | | | | COUNT | | | | | | + + + + + + + | NRBC/100 | 2022-07-16 | [facility] | 0.0 | % | (missing) | | WBCS BY | 19:05 | Health | | | | | AUTOMATED | | System - | | | | | COUNT | | [facility] | | | | + + + + + + + | | 2022-07-16 | [facility] | 0.0 | % | (missing) | | EOSINOPHILS/ | 19:05 | Health | | | | | 100 | | System - | | | | | LEUKOCYTES | | [facility] | | | | | IN BLOOD BY | | | | | | | AUTOMATED | | | | | | | COUNT | | | | | | + + + + + + + | | 2022-07-16 | [facility] | 0.0 | k/mcl | (missing) | | NRBC(10*3/UL | 19:05 | Health | | | | | ) IN BLOOD | | System - | | | | | BY AUTOMATED | | [facility] | | | | | COUNT | | | | | | + + + + + + + | EOSINOPHILS | 2022-07-16 | [facility] | 0.0 | k/mcl | (missing) | | (10*3/UL) | 19:05 | Health | | | | | IN BLOOD BY | | System - | | | | | AUTOMATED | | [facility] | | | | | COUNT | | | | | | + + + + + + + | EOSINOPHILS | 2022-07-16 | [facility] | 0.0 | k/mcl | (missing) | | (10*3/UL) | 19:05 | Health | | | | | IN BLOOD BY | | System - | | | | | AUTOMATED | | [facility] | | | | | COUNT | | | | | | + + + + + + + | | 2022-07-16 | [facility] | 0.0 | k/mcl | (missing) | | NRBC(10*3/UL | 19:05 | Health | | | | | ) IN BLOOD | | System - | | | | | BY AUTOMATED | | [facility] | | | | | COUNT | | | | | | + + + + + + + | BASOPHILS | 2022-07-16 | [facility] | 0.1 | k/mcl | (missing) | | (10*3/UL) IN | 19:05 | Health | | | | | BLOOD BY | | System - | | | | | AUTOMATED | | [facility] | | | | | COUNT | | | | | | + + + + + + + | BASOPHILS | 2022-07-16 | [facility] | 0.1 | k/mcl | (missing) | | (10*3/UL) IN | 19:05 | Health | | | | | BLOOD BY | | System - | | | | | AUTOMATED | | [facility] | | | | | COUNT | | | | | | + + + + + + + | BILIRUBIN | 2022-07-16 | [facility] | 0.3 | mg/dl | (missing) | | TOTAL | 19:05 | Health | | | | | (MG/DL) IN | | System - | | | | | SER/PLAS | | [facility] | | | | + + + + + + + | BILIRUBIN | 2022-07-16 | [facility] | 0.3 | mg/dl | (missing) | | TOTAL | 19:05 | Health | | | | | (MG/DL) IN | | System - | | | | | SER/PLAS | | [facility] | | | | + + + + + + + | IMMATURE | 2022-07-16 | [facility] | 0.33 | k/mcl | (missing) | | GRANULOCYTE | 19:05 | Health | | | | | (ABS) | | System - | | | | | | | [facility] | | | | + + + + + + + | IMMATURE | 2022-07-16 | [facility] | 0.33 | k/mcl | (missing) | | GRANULOCYTE | 19:05 | Health | | | | | (ABS) | | System - | | | | | | | [facility] | | | | + + + + + + + | MONOCYTES | 2022-07-16 | [facility] | 0.7 | k/mcl | (missing) | | (10*3/UL) IN | 19:05 | Health | | | | | BLOOD BY | | System - | | | | | AUTOMATED | | [facility] | | | | | COUNT | | | | | | + + + + + + + | MONOCYTES | 2022-07-16 | [facility] | 0.7 | k/mcl | (missing) | | (10*3/UL) IN | 19:05 | Health | | | | | BLOOD BY | | System - | | | | | AUTOMATED | | [facility] | | | | | COUNT | | | | | | + + + + + + + | | 2022-07-16 | [facility] | 0.8 | % | (missing) | | BASOPHILS/10 | 19:05 | Health | | | | | 0 LEUKOCYTES | | System - | | | | | IN BLOOD BY | | [facility] | | | | | AUTOMATED | | | | | | | COUNT | | | | | | + + + + + + + | | 2022-07-16 | [facility] | 0.8 | % | (missing) | | BASOPHILS/10 | 19:05 | Health | | | | | 0 LEUKOCYTES | | System - | | | | | IN BLOOD BY | | [facility] | | | | | AUTOMATED | | | | | | | COUNT | | | | | | + + + + + + + | CREATININE | 2022-07-16 | [facility] | 0.8 | mg/dl | (missing) | | (MG/DL) IN | 19:05 | Health | | | | | SER/PLAS | | System - | | | | | | | [facility] | | | | + + + + + + + | CREATININE | 2022-07-16 | [facility] | 0.8 | mg/dl | (missing) | | (MG/DL) IN | 19:05 | Health | | | | | SER/PLAS | | System - | | | | | | | [facility] | | | | + + + + + + + | BLOOD UREA | 2022-07-16 | [facility] | 10 | mg/dl | (missing) | | NITROGEN | 19:05 | Health | | | | | (BUN) | | System - | | | | | (MG/DL) IN | | [facility] | | | | | SER/PLAS | | | | | | + + + + + + + | BLOOD UREA | 2022-07-16 | [facility] | 10 | mg/dl | (missing) | | NITROGEN | 19:05 | Health | | | | | (BUN) | | System - | | | | | (MG/DL) IN | | [facility] | | | | | SER/PLAS | | | | | | + + + + + + + | CHLORIDE | 2022-07-16 | [facility] | 106 | mmol/l | (missing) | | (MMOL/L) IN | 19:05 | Health | | | | | SER/PLAS | | System - | | | | | | | [facility] | | | | + + + + + + + | CHLORIDE | 2022-07-16 | [facility] | 106 | mmol/l | (missing) | | (MMOL/L) IN | 19:05 | Health | | | | | SER/PLAS | | System - | | | | | | | [facility] | | | | + + + + + + + | GLUCOSE, | 2022-07-16 | [facility] | 115 | mg/dl | (missing) | | RANDOM | 19:05 | Health | | | | | (MG/DL) IN | | System - | | | | | SER/PLAS | | [facility] | | | | + + + + + + + | GLUCOSE, | 2022-07-16 | [facility] | 115 | mg/dl | (missing) | | RANDOM | 19:05 | Health | | | | | (MG/DL) IN | | System - | | | | | SER/PLAS | | [facility] | | | | + + + + + + + | ANION GAP | 2022-07-16 | [facility] | 12.0 | mmol/l | (missing) | | IN SER/PLAS | 19:05 | Health | | | | | | | System - | | | | | | | [facility] | | | | + + + + + + + | ANION GAP | 2022-07-16 | [facility] | 12.0 | mmol/l | (missing) | | IN SER/PLAS | 19:05 | Health | | | | | | | System - | | | | | | | [facility] | | | | + + + + + + + | | 2022-07-16 | [facility] | 14.4 | k/mcl | (missing) | | LEUKOCYTES(1 | 19:05 | Health | | | | | 0*3/UL) IN | | System - | | | | | BLOOD BY | | [facility] | | | | | AUTOMATED | | | | | | | COUNT | | | | | | + + + + + + + | | 2022-07-16 | [facility] | 14.4 | k/mcl | (missing) | | LEUKOCYTES(1 | 19:05 | Health | | | | | 0*3/UL) IN | | System - | | | | | BLOOD BY | | [facility] | | | | | AUTOMATED | | | | | | | COUNT | | | | | | + + + + + + + | ERYTHROCYTE | 2022-07-16 | [facility] | 14.5 | % | (missing) | | | 19:05 | Health | | | | | DISTRIBUTION | | System - | | | | | WIDTH | | [facility] | | | | | (RATIO) BY | | | | | | | AUTOMATED | | | | | | | COUNT | | | | | | + + + + + + + | ERYTHROCYTE | 2022-07-16 | [facility] | 14.5 | % | (missing) | | | 19:05 | Health | | | | | DISTRIBUTION | | System - | | | | | WIDTH | | [facility] | | | | | (RATIO) BY | | | | | | | AUTOMATED | | | | | | | COUNT | | | | | | + + + + + + + | SODIUM | 2022-07-16 | [facility] | 141 | mmol/l | (missing) | | (MMOL/L) IN | 19:05 | Health | | | | | SER/PLAS | | System - | | | | | | | [facility] | | | | + + + + + + + | SODIUM | 2022-07-16 | [facility] | 141 | mmol/l | (missing) | | (MMOL/L) IN | 19:05 | Health | | | | | SER/PLAS | | System - | | | | | | | [facility] | | | | + + + + + + + | HEMOGLOBIN | 2022-07-16 | [facility] | 15.9 | g/dl | (missing) | | (G/DL) IN | 19:05 | Health | | | | | BLOOD | | System - | | | | | | | [facility] | | | | + + + + + + + | HEMOGLOBIN | 2022-07-16 | [facility] | 15.9 | g/dl | (missing) | | (G/DL) IN | 19:05 | Health | | | | | BLOOD | | System - | | | | | | | [facility] | | | | + + + + + + + | IMMATURE | 2022-07-16 | [facility] | 2.3 | % | (missing) | | GRANULOCYTE | 19:05 | Health | | | | | % (AUTO) | | System - | | | | | | | [facility] | | | | + + + + + + + | IMMATURE | 2022-07-16 | [facility] | 2.3 | % | (missing) | | GRANULOCYTE | 19:05 | Health | | | | | % (AUTO) | | System - | | | | | | | [facility] | | | | + + + + + + + | CARBON | 2022-07-16 | [facility] | 23 | mmol/l | (missing) | | DIOXIDE | 19:05 | Health | | | | | (CO2), TOTAL | | System - | | | | | (MMOL/L) IN | | [facility] | | | | | SER/PLAS | | | | | | + + + + + + + | CARBON | 2022-07-16 | [facility] | 23 | mmol/l | (missing) | | DIOXIDE | 19:05 | Health | | | | | (CO2), TOTAL | | System - | | | | | (MMOL/L) IN | | [facility] | | | | | SER/PLAS | | | | | | + + + + + + + | ASPARTATE | 2022-07-16 | [facility] | 26 | u/l | (missing) | | AMINOTRANSFE | 19:05 | Health | | | | | RASE (SGOT) | | System - | | | | | (U/L) IN | | [facility] | | | | | SER/PLAS | | | | | | + + + + + + + | ASPARTATE | 2022-07-16 | [facility] | 26 | u/l | (missing) | | AMINOTRANSFE | 19:05 | Health | | | | | RASE (SGOT) | | System - | | | | | (U/L) IN | | [facility] | | | | | SER/PLAS | | | | | | + + + + + + + | POTASSIUM | 2022-07-16 | [facility] | 3.7 | mmol/l | (missing) | | (MMOL/L) IN | 19:05 | Health | | | | | SER/PLAS | | System - | | | | | | | [facility] | | | | + + + + + + + | POTASSIUM | 2022-07-16 | [facility] | 3.7 | mmol/l | (missing) | | (MMOL/L) IN | 19:05 | Health | | | | | SER/PLAS | | System - | | | | | | | [facility] | | | | + + + + + + + | ERYTHROCYTE | 2022-07-16 | [facility] | 30.2 | pg | (missing) | | MEAN | 19:05 | Health | | | | | CORPUSCULAR | | System - | | | | | HEMOGLOBIN | | [facility] | | | | | (PG) BY | | | | | | | AUTOMATED | | | | | | | COUNT | | | | | | + + + + + + + | ERYTHROCYTE | 2022-07-16 | [facility] | 30.2 | pg | (missing) | | MEAN | 19:05 | Health | | | | | CORPUSCULAR | | System - | | | | | HEMOGLOBIN | | [facility] | | | | | (PG) BY | | | | | | | AUTOMATED | | | | | | | COUNT | | | | | | + + + + + + + | ERYTHROCYTE | 2022-07-16 | [facility] | 33.9 | g/dl | (missing) | | MEAN | 19:05 | Health | | | | | CORPUSCULAR | | System - | | | | | HEMOGLOBIN | | [facility] | | | | | CONCENTRATIO | | | | | | | N (G/DL) BY | | | | | | | AUTOMATED | | | | | | + + + + + + + | ERYTHROCYTE | 2022-07-16 | [facility] | 33.9 | g/dl | (missing) | | MEAN | 19:05 | Health | | | | | CORPUSCULAR | | System - | | | | | HEMOGLOBIN | | [facility] | | | | | CONCENTRATIO | | | | | | | N (G/DL) BY | | | | | | | AUTOMATED | | | | | | + + + + + + + | | 2022-07-16 | [facility] | 39.1 | % | (missing) | | LYMPHOCYTES/ | 19:05 | Health | | | | | 100 | | System - | | | | | LEUKOCYTES | | [facility] | | | | | IN BLOOD BY | | | | | | | AUTOMATED | | | | | | | COUNT | | | | | | + + + + + + + | | 2022-07-16 | [facility] | 39.1 | % | (missing) | | LYMPHOCYTES/ | 19:05 | Health | | | | | 100 | | System - | | | | | LEUKOCYTES | | [facility] | | | | | IN BLOOD BY | | | | | | | AUTOMATED | | | | | | | COUNT | | | | | | + + + + + + + | ALBUMIN | 2022-07-16 | [facility] | 4.4 | g/dl | (missing) | | (G/DL) IN | 19:05 | Health | | | | | SER/PLAS | | System - | | | | | | | [facility] | | | | + + + + + + + | ALBUMIN | 2022-07-16 | [facility] | 4.4 | g/dl | (missing) | | (G/DL) IN | 19:05 | Health | | | | | SER/PLAS | | System - | | | | | | | [facility] | | | | + + + + + + + | ALANINE | 2022-07-16 | [facility] | 40 | u/l | (missing) | | AMINOTRANSFE | 19:05 | Health | | | | | RASE (SGPT) | | System - | | | | | (U/L) IN | | [facility] | | | | | SER/PLAS | | | | | | + + + + + + + | ALANINE | 2022-07-16 | [facility] | 40 | u/l | (missing) | | AMINOTRANSFE | 19:05 | Health | | | | | RASE (SGPT) | | System - | | | | | (U/L) IN | | [facility] | | | | | SER/PLAS | | | | | | + + + + + + + | HEMATOCRIT | 2022-07-16 | [facility] | 46.9 | % | (missing) | | (%) IN BLOOD | 19:05 | Health | | | | | BY | | System - | | | | | AUTOMATED | | [facility] | | | | | COUNT | | | | | | + + + + + + + | HEMATOCRIT | 2022-07-16 | [facility] | 46.9 | % | (missing) | | (%) IN BLOOD | 19:05 | Health | | | | | BY | | System - | | | | | AUTOMATED | | [facility] | | | | | COUNT | | | | | | + + + + + + + | PLATELETS | 2022-07-16 | [facility] | 488 | k/mcl | (missing) | | (10*3/UL) IN | 19:05 | Health | | | | | BLOOD | | System - | | | | | AUTOMATED | | [facility] | | | | | COUNT | | | | | | + + + + + + + | PLATELETS | 2022-07-16 | [facility] | 488 | k/mcl | (missing) | | (10*3/UL) IN | 19:05 | Health | | | | | BLOOD | | System - | | | | | AUTOMATED | | [facility] | | | | | COUNT | | | | | | + + + + + + + | | 2022-07-16 | [facility] | 5.2 | % | (missing) | | MONOCYTES/10 | 19:05 | Health | | | | | 0 LEUKOCYTES | | System - | | | | | IN BLOOD BY | | [facility] | | | | | AUTOMATED | | | | | | | COUNT | | | | | | + + + + + + + | | 2022-07-16 | [facility] | 5.2 | % | (missing) | | MONOCYTES/10 | 19:05 | Health | | | | | 0 LEUKOCYTES | | System - | | | | | IN BLOOD BY | | [facility] | | | | | AUTOMATED | | | | | | | COUNT | | | | | | + + + + + + + | | 2022-07-16 | [facility] | 5.26 | m/mcl | (missing) | | ERYTHROCYTES | 19:05 | Health | | | | | (10*6/UL) | | System - | | | | | IN BLOOD BY | | [facility] | | | | | AUTOMATED | | | | | | | COUNT | | | | | | + + + + + + + | | 2022-07-16 | [facility] | 5.26 | m/mcl | (missing) | | ERYTHROCYTES | 19:05 | Health | | | | | (10*6/UL) | | System - | | | | | IN BLOOD BY | | [facility] | | | | | AUTOMATED | | | | | | | COUNT | | | | | | + + + + + + + | LYMPHOCYTES | 2022-07-16 | [facility] | 5.6 | k/mcl | (missing) | | (10*3/UL) | 19:05 | Health | | | | | IN BLOOD BY | | System - | | | | | AUTOMATED | | [facility] | | | | | COUNT | | | | | | + + + + + + + | LYMPHOCYTES | 2022-07-16 | [facility] | 5.6 | k/mcl | (missing) | | (10*3/UL) | 19:05 | Health | | | | | IN BLOOD BY | | System - | | | | | AUTOMATED | | [facility] | | | | | COUNT | | | | | | + + + + + + + | | 2022-07-16 | [facility] | 52.6 | % | (missing) | | NEUTROPHILS/ | 19:05 | Health | | | | | 100 | | System - | | | | | LEUKOCYTES | | [facility] | | | | | IN BLOOD BY | | | | | | | AUTOMATED | | | | | | | COUNT | | | | | | + + + + + + + | | 2022-07-16 | [facility] | 52.6 | % | (missing) | | NEUTROPHILS/ | 19:05 | Health | | | | | 100 | | System - | | | | | LEUKOCYTES | | [facility] | | | | | IN BLOOD BY | | | | | | | AUTOMATED | | | | | | | COUNT | | | | | | + + + + + + + | PROTEIN | 2022-07-16 | [facility] | 7.2 | g/dl | (missing) | | (G/DL) IN | 19:05 | Health | | | | | SER/PLAS | | System - | | | | | | | [facility] | | | | + + + + + + + | PROTEIN | 2022-07-16 | [facility] | 7.2 | g/dl | (missing) | | (G/DL) IN | 19:05 | Health | | | | | SER/PLAS | | System - | | | | | | | [facility] | | | | + + + + + + + | NEUTROPHILS | 2022-07-16 | [facility] | 7.6 | k/mcl | (missing) | | (10*3/UL) | 19:05 | Health | | | | | IN BLOOD BY | | System - | | | | | AUTOMATED | | [facility] | | | | | COUNT | | | | | | + + + + + + + | NEUTROPHILS | 2022-07-16 | [facility] | 7.6 | k/mcl | (missing) | | (10*3/UL) | 19:05 | Health | | | | | IN BLOOD BY | | System - | | | | | AUTOMATED | | [facility] | | | | | COUNT | | | | | | + + + + + + + | ALKALINE | 2022-07-16 | [facility] | 87 | u/l | (missing) | | PHOSPHATASE | 19:05 | Health | | | | | (U/L) IN | | System - | | | | | SER/PLAS | | [facility] | | | | + + + + + + + | ALKALINE | 2022-07-16 | [facility] | 87 | u/l | (missing) | | PHOSPHATASE | 19:05 | Health | | | | | (U/L) IN | | System - | | | | | SER/PLAS | | [facility] | | | | + + + + + + + | ERYTHROCYTE | 2022-07-16 | [facility] | 89.2 | fl | (missing) | | MEAN | 19:05 | Health | | | | | CORPUSCULAR | | System - | | | | | VOLUME (FL) | | [facility] | | | | | BY AUTOMATED | | | | | | | COUNT | | | | | | + + + + + + + | ERYTHROCYTE | 2022-07-16 | [facility] | 89.2 | fl | (missing) | | MEAN | 19:05 | Health | | | | | CORPUSCULAR | | System - | | | | | VOLUME (FL) | | [facility] | | | | | BY AUTOMATED | | | | | | | COUNT | | | | | | + + + + + + + | PLATELET | 2022-07-16 | [facility] | 9.1 | fl | (missing) | | MEAN VOLUME | 19:05 | Health | | | | | (FL) IN | | System - | | | | | BLOOD BY | | [facility] | | | | | AUTOMATED | | | | | | | COUNT | | | | | | + + + + + + + | PLATELET | 2022-07-16 | [facility] | 9.1 | fl | (missing) | | MEAN VOLUME | 19:05 | Health | | | | | (FL) IN | | System - | | | | | BLOOD BY | | [facility] | | | | | AUTOMATED | | | | | | | COUNT | | | | | | + + + + + + + | CALCIUM | 2022-07-16 | [facility] | 9.1 | mg/dl | (missing) | | (MG/DL) IN | 19:05 | Health | | | | | SER/PLAS | | System - | | | | | | | [facility] | | | | + + + + + + + | CALCIUM | 2022-07-16 | [facility] | 9.1 | mg/dl | (missing) | | (MG/DL) IN | 19:05 | Health | | | | | SER/PLAS | | System - | | | | | | | [facility] | | | | + + + + + + + | | 2022-07-16 | [facility] | Negative | (missing) | (missing) | | BARBITURATES | 19:05 | Health | | | | | PRESENCE IN | | System - | | | | | URINE BY | | [facility] | | | | | SCREEN | | | | | | | METHOD | | | | | | + + + + + + + | | 2022-07-16 | [facility] | Negative | (missing) | (missing) | | BENZODIAZEPI | 19:05 | Health | | | | | SURYA | | System - | | | | | (PRESENCE) | | [facility] | | | | | IN URINE BY | | | | | | | SCREEN | | | | | | | METHOD | | | | | | + + + + + + + | COCAINE | 2022-07-16 | [facility] | Negative | (missing) | (missing) | | ([facility]) | 19:05 | Health | | | | | IN URINE BY | | System - | | | | | SCREEN | | [facility] | | | | | METHOD | | | | | | + + + + + + + | METHADONE | 2022-07-16 | [facility] | Negative | (missing) | (missing) | | ([facility]) | 19:05 | Health | | | | | IN URINE BY | | System - | | | | | SCREEN | | [facility] | | | | | METHOD | | | | | | + + + + + + + | | 2022-07-16 | [facility] | Negative | (missing) | (missing) | | METHAMPHETAM | 19:05 | Health | | | | | INE | | System - | | | | | ([facility]) | | [facility] | | | | | IN URINE BY | | | | | | | SCREEN | | | | | | | METHOD | | | | | | + + + + + + + | OPIATES | 2022-07-16 | [facility] | Negative | (missing) | (missing) | | ([facility]) | 19:05 | Health | | | | | IN URINE BY | | System - | | | | | SCREEN | | [facility] | | | | | METHOD | | | | | | + + + + + + + | OXYCODONE | 2022-07-16 | [facility] | Negative | (missing) | (missing) | | ([facility]) | 19:05 | Health | | | | | IN URINE BY | | System - | | | | | SCREEN | | [facility] | | | | | METHOD | | | | | | + + + + + + + | | 2022-07-16 | [facility] | Negative | (missing) | (missing) | | PHENCYCLIDIN | 19:05 | Health | | | | | E ([facility]) | | System - | | | | | IN URINE BY | | [facility] | | | | | SCREEN | | | | | | | METHOD | | | | | | + + + + + + + | THC | 2022-07-16 | [facility] | Negative | (missing) | (missing) | | (CANNABINOID | 19:05 | Health | | | | | ) IN URINE | | System - | | | | | BY SCREEN | | [facility] | | | | | METHOD | | | | | | + + + + + + + | TRICYCLIC | 2022-07-16 | [facility] | Negative | (missing) | (missing) | | ANTIDEPRESSA | 19:05 | Health | | | | | NTS | | System - | | | | | ([facility]) | | [facility] | | | | | IN URINE | | | | | | + + + + + + + | | 2022-07-16 | [facility] | Negative | (missing) | (missing) | | PHENCYCLIDIN | 19:05 | Health | | | | | E ([facility]) | | System - | | | | | IN URINE BY | | [facility] | | | | | SCREEN | | | | | | | METHOD | | | | | | + + + + + + + | THC | 2022-07-16 | [facility] | Negative | (missing) | (missing) | | (CANNABINOID | 19:05 | Health | | | | | ) IN URINE | | System - | | | | | BY SCREEN | | [facility] | | | | | METHOD | | | | | | + + + + + + + | OPIATES | 2022-07-16 | [facility] | Negative | (missing) | (missing) | | ([facility]) | 19:05 | Health | | | | | IN URINE BY | | System - | | | | | SCREEN | | [facility] | | | | | METHOD | | | | | | + + + + + + + | TRICYCLIC | 2022-07-16 | [facility] | Negative | (missing) | (missing) | | ANTIDEPRESSA | 19:05 | Health | | | | | NTS | | System - | | | | | ([facility]) | | [facility] | | | | | IN URINE | | | | | | + + + + + + + | AMPHETAMINE | 2022-07-16 | [facility] | Negative | (missing) | (missing) | | ([facility]) | 19:05 | Health | | | | | IN URINE BY | | System - | | | | | SCREEN | | [facility] | | | | | METHOD | | | | | | + + + + + + + | | 2022-07-16 | [facility] | Negative | (missing) | (missing) | | METHAMPHETAM | 19:05 | Health | | | | | INE | | System - | | | | | ([facility]) | | [facility] | | | | | IN URINE BY | | | | | | | SCREEN | | | | | | | METHOD | | | | | | + + + + + + + | OXYCODONE | 2022-07-16 | [facility] | Negative | (missing) | (missing) | | ([facility]) | 19:05 | Health | | | | | IN URINE BY | | System - | | | | | SCREEN | | [facility] | | | | | METHOD | | | | | | + + + + + + + | BHCG QUAL | 2022-07-16 | [facility] | Negative | (missing) | (missing) | | (CHORIOGONAD | 19:05 | Health | | | | | OTROPIN) IN | | System - | | | | | SER/PLAS | | [facility] | | | | + + + + + + + | COCAINE | 2022-07-16 | [facility] | Negative | (missing) | (missing) | | ([facility]) | 19:05 | Health | | | | | IN URINE BY | | System - | | | | | SCREEN | | [facility] | | | | | METHOD | | | | | | + + + + + + + | | 2022-07-16 | [facility] | Negative | (missing) | (missing) | | BARBITURATES | 19:05 | Health | | | | | [facility] IN | | System - | | | | | URINE BY | | [facility] | | | | | SCREEN | | | | | | | METHOD | | | | | | + + + + + + + | | 2022-07-16 | [facility] | Negative | (missing) | (missing) | | BENZODIAZEPI | 19:05 | Health | | | | | [facility] | | System - | | | | | ([facility]) | | [facility] | | | | | IN URINE BY | | | | | | | SCREEN | | | | | | | METHOD | | | | | | + + + + + + + | METHADONE | 2022-07-16 | [facility] | Negative | (missing) | (missing) | | ([facility]) | 19:05 | Health | | | | | IN URINE BY | | System - | | | | | SCREEN | | [facility] | | | | | METHOD | | | | | | + + + + + + + | BHCG QUAL | 2022-07-16 | [facility] | Negative | (missing) | (missing) | | (CHORIOGONAD | 19:05 | Health | | | | | OTROPIN) IN | | System - | | | | | SER/PLAS | | [facility] | | | | + + + + + + + | AMPHETAMINE | 2022-07-16 | [facility] | Negative | (missing) | (missing) | | ([facility]) | 19:05 | Health | | | | | IN URINE BY | | System - | | | | | SCREEN | | [facility] | | | | | METHOD | | | | | | + + + + + + + + + | Result panel 72 | + + + + + + + + + | CORONAVIRUS | 2022-07-16 | [facility] | Detected | (missing) | (missing) | | HKU1 | 20:07 | Health | | | | | | | System - | | | | | | | [facility] | | | | + + + + + + + | CORONAVIRUS | 2022-07-16 | [facility] | Detected | (missing) | (missing) | | HKU1 | 20:07 | Health | | | | | | | System - | | | | | | | [facility] | | | | + + + + + + + | ADENOVIRUS | 2022-07-16 | [facility] | Not | (missing) | (missing) | | DETECTION BY | 20:07 | Health | Detected | | | | PCR | | System - | | | | | | | [facility] | | | | + + + + + + + | BORDETELLA | 2022-07-16 | [facility] | Not | (missing) | (missing) | | PARAPERTUSSI | 20:07 | Health | Detected | | | | S | | System - | | | | | | | [facility] | | | | + + + + + + + | BORDETELLA | 2022-07-16 | [facility] | Not | (missing) | (missing) | | PERTUSSIS | 20:07 | Health | Detected | | | | | | System - | | | | | | | [facility] | | | | + + + + + + + | | 2022-07-16 | [facility] | Not | (missing) | (missing) | | CHLAMYDOPHIL | 20:07 | Health | Detected | | | | A PNEUMONIAE | | System - | | | | | | | [facility] | | | | + + + + + + + | CORONAVIRUS | 2022-07-16 | [facility] | Not | (missing) | (missing) | | [address] | 20:07 | Health | Detected | | | | | | System - | | | | | | | [facility] | | | | + + + + + + + | CORONAVIRUS | 2022-07-16 | [facility] | Not | (missing) | (missing) | | NL63 | 20:07 | Health | Detected | | | | | | System - | | | | | | | [facility] | | | | + + + + + + + | CORONAVIRUS | 2022-07-16 | [facility] | Not | (missing) | (missing) | | OC43 | 20:07 | Health | Detected | | | | | | System - | | | | | | | [facility] | | | | + + + + + + + | INFLUENZA A | 2022-07-16 | [facility] | Not | (missing) | (missing) | | | 20:07 | Health | Detected | | | | | | System - | | | | | | | [facility] | | | | + + + + + + + | INFLUENZA B | 2022-07-16 | [facility] | Not | (missing) | (missing) | | | 20:07 | Health | Detected | | | | | | System - | | | | | | | [facility] | | | | + + + + + + + | | 2022-07-16 | [facility] | Not | (missing) | (missing) | | METAPNEUMOVI | 20:07 | Health | Detected | | | | KELVIN | | System - | | | | | | | [facility] | | | | + + + + + + + | MYCOPLASMA | 2022-07-16 | [facility] | Not | (missing) | (missing) | | PNEUMONIAE | 20:07 | Health | Detected | | | | PCR | | System - | | | | | | | [facility] | | | | + + + + + + + | | 2022-07-16 | [facility] | Not | (missing) | (missing) | | PARAINFLUENZ | 20:07 | Health | Detected | | | | A 1 | | System - | | | | | | | [facility] | | | | + + + + + + + | | 2022-07-16 | [facility] | Not | (missing) | (missing) | | PARAINFLUENZ | 20:07 | Health | Detected | | | | A 2 | | System - | | | | | | | [facility] | | | | + + + + + + + | | 2022-07-16 | [facility] | Not | (missing) | (missing) | | PARAINFLUENZ | 20:07 | Health | Detected | | | | A 3 | | System - | | | | | | | [facility] | | | | + + + + + + + | | 2022-07-16 | [facility] | Not | (missing) | (missing) | | PARAINFLUENZ | 20:07 | Health | Detected | | | | A 4 | | System - | | | | | | | [facility] | | | | + + + + + + + | | 2022-07-16 | [facility] | Not | (missing) | (missing) | | RHINOVIRUS/E | 20:07 | Health | Detected | | | | NTEROVIRUS | | System - | | | | | | | [facility] | | | | + + + + + + + | RSV | 2022-07-16 | [facility] | Not | (missing) | (missing) | | | 20:07 | Health | Detected | | | | | | System - | | | | | | | [facility] | | | | + + + + + + + | SARS-COV-2 | 2022-07-16 | [facility] | Not | (missing) | (missing) | | (COVID19) | 20:07 | Health | Detected | | | | BIOFIRE PCR | | System - | | | | | | | [facility] | | | | + + + + + + + | BORDETELLA | 2022-07-16 | [facility] | Not | (missing) | (missing) | | PERTUSSIS | 20:07 | Health | Detected | | | | | | System - | | | | | | | [facility] | | | | + + + + + + + | MYCOPLASMA | 2022-07-16 | [facility] | Not | (missing) | (missing) | | PNEUMONIAE | 20:07 | Health | Detected | | | | PCR | | System - | | | | | | | [facility] | | | | + + + + + + + | | 2022-07-16 | [facility] | Not | (missing) | (missing) | | PARAINFLUENZ | 20:07 | Health | Detected | | | | A 1 | | System - | | | | | | | [facility] | | | | + + + + + + + | | 2022-07-16 | [facility] | Not | (missing) | (missing) | | PARAINFLUENZ | 20:07 | Health | Detected | | | | A 2 | | System - | | | | | | | [facility] | | | | + + + + + + + | | 2022-07-16 | [facility] | Not | (missing) | (missing) | | CHLAMYDOPHIL | 20:07 | Health | Detected | | | | A PNEUMONIAE | | System - | | | | | | | [facility] | | | | + + + + + + + | | 2022-07-16 | [facility] | Not | (missing) | (missing) | | METAPNEUMOVI | 20:07 | Health | Detected | | | | KELVIN | | System - | | | | | | | [facility] | | | | + + + + + + + | ADENOVIRUS | 2022-07-16 | [facility] | Not | (missing) | (missing) | | DETECTION BY | 20:07 | Health | Detected | | | | PCR | | System - | | | | | | | [facility] | | | | + + + + + + + | INFLUENZA B | 2022-07-16 | [facility] | Not | (missing) | (missing) | | | 20:07 | Health | Detected | | | | | | System - | | | | | | | [facility] | | | | + + + + + + + | RSV | 2022-07-16 | [facility] | Not | (missing) | (missing) | | | 20:07 | Health | Detected | | | | | | System - | | | | | | | [facility] | | | | + + + + + + + | | 2022-07-16 | [facility] | Not | (missing) | (missing) | | RHINOVIRUS/E | 20:07 | Health | Detected | | | | NTEROVIRUS | | System - | | | | | | | [facility] | | | | + + + + + + + | CORONAVIRUS | 2022-07-16 | [facility] | Not | (missing) | (missing) | | [address] | 20:07 | Health | Detected | | | | | | System - | | | | | | | [facility] | | | | + + + + + + + | CORONAVIRUS | 2022-07-16 | [facility] | Not | (missing) | (missing) | | NL63 | 20:07 | Health | Detected | | | | | | System - | | | | | | | [facility] | | | | + + + + + + + | CORONAVIRUS | 2022-07-16 | [facility] | Not | (missing) | (missing) | | OC43 | 20:07 | Health | Detected | | | | | | System - | | | | | | | [facility] | | | | + + + + + + + | | 2022-07-16 | [facility] | Not | (missing) | (missing) | | PARAINFLUENZ | 20:07 | Health | Detected | | | | A 4 | | System - | | | | | | | [facility] | | | | + + + + + + + | | 2022-07-16 | [facility] | Not | (missing) | (missing) | | PARAINFLUENZ | 20:07 | Health | Detected | | | | A 3 | | System - | | | | | | | [facility] | | | | + + + + + + + | ABBITELLA | 2022-07-16 | [facility] | Not | (missing) | (missing) | | PARAPERTUSSI | 20:07 | Health | Detected | | | | S | | System - | | | | | | | [facility] | | | | + + + + + + + | SARS-COV-2 | 2022-07-16 | [facility] | Not | (missing) | (missing) | | (COVID19) | 20:07 | Health | Detected | | | | BIOFIRE PCR | | System - | | | | | | | [facility] | | | | + + + + + + + + + | Result panel 73 | + + + + + + + + + | EGFR | 2022-08-15 | [facility] | > | | (missing) | | (GLOMERULAR | 12:47 | Health | | ml/min/1.73m | | | FILTRATION | | System - | | ? | | | RATE) | | [facility] | | | | | ML/MIN/1.73 | | | | | | | SQ M. | | | | | | + + + + + + + | EGFR | 2022-08-15 | [facility] | > | | (missing) | | (GLOMERULAR | 12:47 | Health | | ml/min/1.73m | | | FILTRATION | | System - | | ? | | | RATE) | | [facility] | | | | | ML/MIN/1.73 | | | | | | | SQ M. | | | | | | + + + + + + + | ALCOHOL | 2022-08-15 | [facility] | < | g/dl | (missing) | | (G/DL) IN | 12:47 | Health | | | | | SER/PLAS | | System - | | | | | | | [facility] | | | | + + + + + + + | ALCOHOL | 2022-08-15 | [facility] | < | g/dl | (missing) | | (G/DL) IN | 12:47 | Health | | | | | SER/PLAS | | System - | | | | | | | [facility] | | | | + + + + + + + | | 2022-08-15 | [facility] | < | mcg/ml | (missing) | | ACETAMINOPHE | 12:47 | Health | | | | | N (UG/ML) IN | | System - | | | | | SER/PLAS | | [facility] | | | | + + + + + + + | | 2022-08-15 | [facility] | < | mcg/ml | (missing) | | ACETAMINOPHE | 12:47 | Health | | | | | N (UG/ML) IN | | System - | | | | | SER/PLAS | | [facility] | | | | + + + + + + + | SALICYLATE | 2022-08-15 | [facility] | < | mg/dl | (missing) | | (MG/DL) IN | 12:47 | Health | | | | | SER/PLAS | | System - | | | | | | | [facility] | | | | + + + + + + + | SALICYLATE | 2022-08-15 | [facility] | < | mg/dl | (missing) | | (MG/DL) IN | 12:47 | Health | | | | | SER/PLAS | | System - | | | | | | | [facility] | | | | + + + + + + + | NRBC/100 | 2022-08-15 | [facility] | 0.0 | % | (missing) | | WBCS BY | 12:47 | Health | | | | | AUTOMATED | | System - | | | | | COUNT | | [facility] | | | | + + + + + + + | | 2022-08-15 | [facility] | 0.0 | % | (missing) | | EOSINOPHILS/ | 12:47 | Health | | | | | 100 | | System - | | | | | LEUKOCYTES | | [facility] | | | | | IN BLOOD BY | | | | | | | AUTOMATED | | | | | | | COUNT | | | | | | + + + + + + + | NRBC/100 | 2022-08-15 | [facility] | 0.0 | % | (missing) | | WBCS BY | 12:47 | Health | | | | | AUTOMATED | | System - | | | | | COUNT | | [facility] | | | | + + + + + + + | | 2022-08-15 | [facility] | 0.0 | % | (missing) | | EOSINOPHILS/ | 12:47 | Health | | | | | 100 | | System - | | | | | LEUKOCYTES | | [facility] | | | | | IN BLOOD BY | | | | | | | AUTOMATED | | | | | | | COUNT | | | | | | + + + + + + + | BASOPHILS | 2022-08-15 | [facility] | 0.0 | k/mcl | (missing) | | (10*3/UL) IN | 12:47 | Health | | | | | BLOOD BY | | System - | | | | | AUTOMATED | | [facility] | | | | | COUNT | | | | | | + + + + + + + | | 2022-08-15 | [facility] | 0.0 | k/mcl | (missing) | | NRBC(10*3/UL | 12:47 | Health | | | | | ) IN BLOOD | | System - | | | | | BY AUTOMATED | | [facility] | | | | | COUNT | | | | | | + + + + + + + | EOSINOPHILS | 2022-08-15 | [facility] | 0.0 | k/mcl | (missing) | | (10*3/UL) | 12:47 | Health | | | | | IN BLOOD BY | | System - | | | | | AUTOMATED | | [facility] | | | | | COUNT | | | | | | + + + + + + + | BASOPHILS | 2022-08-15 | [facility] | 0.0 | k/mcl | (missing) | | (10*3/UL) IN | 12:47 | Health | | | | | BLOOD BY | | System - | | | | | AUTOMATED | | [facility] | | | | | COUNT | | | | | | + + + + + + + | EOSINOPHILS | 2022-08-15 | [facility] | 0.0 | k/mcl | (missing) | | (10*3/UL) | 12:47 | Health | | | | | IN BLOOD BY | | System - | | | | | AUTOMATED | | [facility] | | | | | COUNT | | | | | | + + + + + + + | | 2022-08-15 | [facility] | 0.0 | k/mcl | (missing) | | NRBC(10*3/UL | 12:47 | Health | | | | | ) IN BLOOD | | System - | | | | | BY AUTOMATED | | [facility] | | | | | COUNT | | | | | | + + + + + + + | IMMATURE | 2022-08-15 | [facility] | 0.03 | k/mcl | (missing) | | GRANULOCYTE | 12:47 | Health | | | | | (ABS) | | System - | | | | | | | [facility] | | | | + + + + + + + | IMMATURE | 2022-08-15 | [facility] | 0.03 | k/mcl | (missing) | | GRANULOCYTE | 12:47 | Health | | | | | (ABS) | | System - | | | | | | | [facility] | | | | + + + + + + + | IMMATURE | 2022-08-15 | [facility] | 0.3 | % | (missing) | | GRANULOCYTE | 12:47 | Health | | | | | % (AUTO) | | System - | | | | | | | [facility] | | | | + + + + + + + | | 2022-08-15 | [facility] | 0.3 | % | (missing) | | BASOPHILS/10 | 12:47 | Health | | | | | 0 LEUKOCYTES | | System - | | | | | IN BLOOD BY | | [facility] | | | | | AUTOMATED | | | | | | | COUNT | | | | | | + + + + + + + | | 2022-08-15 | [facility] | 0.3 | % | (missing) | | BASOPHILS/10 | 12:47 | Health | | | | | 0 LEUKOCYTES | | System - | | | | | IN BLOOD BY | | [facility] | | | | | AUTOMATED | | | | | | | COUNT | | | | | | + + + + + + + | IMMATURE | 2022-08-15 | [facility] | 0.3 | % | (missing) | | GRANULOCYTE | 12:47 | Health | | | | | % (AUTO) | | System - | | | | | | | [facility] | | | | + + + + + + + | BILIRUBIN | 2022-08-15 | [facility] | 0.3 | mg/dl | (missing) | | TOTAL | 12:47 | Health | | | | | (MG/DL) IN | | System - | | | | | SER/PLAS | | [facility] | | | | + + + + + + + | BILIRUBIN | 2022-08-15 | [facility] | 0.3 | mg/dl | (missing) | | TOTAL | 12:47 | Health | | | | | (MG/DL) IN | | System - | | | | | SER/PLAS | | [facility] | | | | + + + + + + + | MONOCYTES | 2022-08-15 | [facility] | 0.5 | k/mcl | (missing) | | (10*3/UL) IN | 12:47 | Health | | | | | BLOOD BY | | System - | | | | | AUTOMATED | | [facility] | | | | | COUNT | | | | | | + + + + + + + | MONOCYTES | 2022-08-15 | [facility] | 0.5 | k/mcl | (missing) | | (10*3/UL) IN | 12:47 | Health | | | | | BLOOD BY | | System - | | | | | AUTOMATED | | [facility] | | | | | COUNT | | | | | | + + + + + + + | CREATININE | 2022-08-15 | [facility] | 0.8 | mg/dl | (missing) | | (MG/DL) IN | 12:47 | Health | | | | | SER/PLAS | | System - | | | | | | | [facility] | | | | + + + + + + + | CREATININE | 2022-08-15 | [facility] | 0.8 | mg/dl | (missing) | | (MG/DL) IN | 12:47 | Health | | | | | SER/PLAS | | System - | | | | | | | [facility] | | | | + + + + + + + | CHLORIDE | 2022-08-15 | [facility] | 107 | mmol/l | (missing) | | (MMOL/L) IN | 12:47 | Health | | | | | SER/PLAS | | System - | | | | | | | [facility] | | | | + + + + + + + | CHLORIDE | 2022-08-15 | [facility] | 107 | mmol/l | (missing) | | (MMOL/L) IN | 12:47 | Health | | | | | SER/PLAS | | System - | | | | | | | [facility] | | | | + + + + + + + | GLUCOSE, | 2022-08-15 | [facility] | 123 | mg/dl | (missing) | | RANDOM | 12:47 | Health | | | | | (MG/DL) IN | | System - | | | | | SER/PLAS | | [facility] | | | | + + + + + + + | GLUCOSE, | 2022-08-15 | [facility] | 123 | mg/dl | (missing) | | RANDOM | 12:47 | Health | | | | | (MG/DL) IN | | System - | | | | | SER/PLAS | | [facility] | | | | + + + + + + + | ERYTHROCYTE | 2022-08-15 | [facility] | 13.6 | % | (missing) | | | 12:47 | Health | | | | | DISTRIBUTION | | System - | | | | | WIDTH | | [facility] | | | | | (RATIO) BY | | | | | | | AUTOMATED | | | | | | | COUNT | | | | | | + + + + + + + | ERYTHROCYTE | 2022-08-15 | [facility] | 13.6 | % | (missing) | | | 12:47 | Health | | | | | DISTRIBUTION | | System - | | | | | WIDTH | | [facility] | | | | | (RATIO) BY | | | | | | | AUTOMATED | | | | | | | COUNT | | | | | | + + + + + + + | ANION GAP | 2022-08-15 | [facility] | 14.0 | mmol/l | (missing) | | IN SER/PLAS | 12:47 | Health | | | | | | | System - | | | | | | | [facility] | | | | + + + + + + + | ANION GAP | 2022-08-15 | [facility] | 14.0 | mmol/l | (missing) | | IN SER/PLAS | 12:47 | Health | | | | | | | System - | | | | | | | [facility] | | | | + + + + + + + | HEMOGLOBIN | 2022-08-15 | [facility] | 14.8 | g/dl | (missing) | | (G/DL) IN | 12:47 | Health | | | | | BLOOD | | System - | | | | | | | [facility] | | | | + + + + + + + | HEMOGLOBIN | 2022-08-15 | [facility] | 14.8 | g/dl | (missing) | | (G/DL) IN | 12:47 | Health | | | | | BLOOD | | System - | | | | | | | [facility] | | | | + + + + + + + | SODIUM | 2022-08-15 | [facility] | 142 | mmol/l | (missing) | | (MMOL/L) IN | 12:47 | Health | | | | | SER/PLAS | | System - | | | | | | | [facility] | | | | + + + + + + + | SODIUM | 2022-08-15 | [facility] | 142 | mmol/l | (missing) | | (MMOL/L) IN | 12:47 | Health | | | | | SER/PLAS | | System - | | | | | | | [facility] | | | | + + + + + + + | CARBON | 2022-08-15 | [facility] | 21 | mmol/l | (missing) | | DIOXIDE | 12:47 | Health | | | | | (CO2), TOTAL | | System - | | | | | (MMOL/L) IN | | [facility] | | | | | SER/PLAS | | | | | | + + + + + + + | CARBON | 2022-08-15 | [facility] | 21 | mmol/l | (missing) | | DIOXIDE | 12:47 | Health | | | | | (CO2), TOTAL | | System - | | | | | (MMOL/L) IN | | [facility] | | | | | SER/PLAS | | | | | | + + + + + + + | ASPARTATE | 2022-08-15 | [facility] | 27 | u/l | (missing) | | AMINOTRANSFE | 12:47 | Health | | | | | RASE (SGOT) | | System - | | | | | (U/L) IN | | [facility] | | | | | SER/PLAS | | | | | | + + + + + + + | ASPARTATE | 2022-08-15 | [facility] | 27 | u/l | (missing) | | AMINOTRANSFE | 12:47 | Health | | | | | RASE (SGOT) | | System - | | | | | (U/L) IN | | [facility] | | | | | SER/PLAS | | | | | | + + + + + + + | POTASSIUM | 2022-08-15 | [facility] | 3.1 | mmol/l | (missing) | | (MMOL/L) IN | 12:47 | Health | | | | | SER/PLAS | | System - | | | | | | | [facility] | | | | + + + + + + + | POTASSIUM | 2022-08-15 | [facility] | 3.1 | mmol/l | (missing) | | (MMOL/L) IN | 12:47 | Health | | | | | SER/PLAS | | System - | | | | | | | [facility] | | | | + + + + + + + | LYMPHOCYTES | 2022-08-15 | [facility] | 3.8 | k/mcl | (missing) | | (10*3/UL) | 12:47 | Health | | | | | IN BLOOD BY | | System - | | | | | AUTOMATED | | [facility] | | | | | COUNT | | | | | | + + + + + + + | LYMPHOCYTES | 2022-08-15 | [facility] | 3.8 | k/mcl | (missing) | | (10*3/UL) | 12:47 | Health | | | | | IN BLOOD BY | | System - | | | | | AUTOMATED | | [facility] | | | | | COUNT | | | | | | + + + + + + + | ERYTHROCYTE | 2022-08-15 | [facility] | 30.4 | pg | (missing) | | MEAN | 12:47 | Health | | | | | CORPUSCULAR | | System - | | | | | HEMOGLOBIN | | [facility] | | | | | (PG) BY | | | | | | | AUTOMATED | | | | | | | COUNT | | | | | | + + + + + + + | ERYTHROCYTE | 2022-08-15 | [facility] | 30.4 | pg | (missing) | | MEAN | 12:47 | Health | | | | | CORPUSCULAR | | System - | | | | | HEMOGLOBIN | | [facility] | | | | | (PG) BY | | | | | | | AUTOMATED | | | | | | | COUNT | | | | | | + + + + + + + | ALANINE | 2022-08-15 | [facility] | 32 | u/l | (missing) | | AMINOTRANSFE | 12:47 | Health | | | | | RASE (SGPT) | | System - | | | | | (U/L) IN | | [facility] | | | | | SER/PLAS | | | | | | + + + + + + + | ALANINE | 2022-08-15 | [facility] | 32 | u/l | (missing) | | AMINOTRANSFE | 12:47 | Health | | | | | RASE (SGPT) | | System - | | | | | (U/L) IN | | [facility] | | | | | SER/PLAS | | | | | | + + + + + + + | ERYTHROCYTE | 2022-08-15 | [facility] | 34.9 | g/dl | (missing) | | MEAN | 12:47 | Health | | | | | CORPUSCULAR | | System - | | | | | HEMOGLOBIN | | [facility] | | | | | CONCENTRATIO | | | | | | | N (G/DL) BY | | | | | | | AUTOMATED | | | | | | + + + + + + + | ERYTHROCYTE | 2022-08-15 | [facility] | 34.9 | g/dl | (missing) | | MEAN | 12:47 | Health | | | | | CORPUSCULAR | | System - | | | | | HEMOGLOBIN | | [facility] | | | | | CONCENTRATIO | | | | | | | N (G/DL) BY | | | | | | | AUTOMATED | | | | | | + + + + + + + | PLATELETS | 2022-08-15 | [facility] | 385 | k/mcl | (missing) | | (10*3/UL) IN | 12:47 | Health | | | | | BLOOD | | System - | | | | | AUTOMATED | | [facility] | | | | | COUNT | | | | | | + + + + + + + | PLATELETS | 2022-08-15 | [facility] | 385 | k/mcl | (missing) | | (10*3/UL) IN | 12:47 | Health | | | | | BLOOD | | System - | | | | | AUTOMATED | | [facility] | | | | | COUNT | | | | | | + + + + + + + | ALBUMIN | 2022-08-15 | [facility] | 4.3 | g/dl | (missing) | | (G/DL) IN | 12:47 | Health | | | | | SER/PLAS | | System - | | | | | | | [facility] | | | | + + + + + + + | ALBUMIN | 2022-08-15 | [facility] | 4.3 | g/dl | (missing) | | (G/DL) IN | 12:47 | Health | | | | | SER/PLAS | | System - | | | | | | | [facility] | | | | + + + + + + + | | 2022-08-15 | [facility] | 4.87 | m/mcl | (missing) | | ERYTHROCYTES | 12:47 | Health | | | | | (10*6/UL) | | System - | | | | | IN BLOOD BY | | [facility] | | | | | AUTOMATED | | | | | | | COUNT | | | | | | + + + + + + + | | 2022-08-15 | [facility] | 4.87 | m/mcl | (missing) | | ERYTHROCYTES | 12:47 | Health | | | | | (10*6/UL) | | System - | | | | | IN BLOOD BY | | [facility] | | | | | AUTOMATED | | | | | | | COUNT | | | | | | + + + + + + + | NEUTROPHILS | 2022-08-15 | [facility] | 4.9 | k/mcl | (missing) | | (10*3/UL) | 12:47 | Health | | | | | IN BLOOD BY | | System - | | | | | AUTOMATED | | [facility] | | | | | COUNT | | | | | | + + + + + + + | NEUTROPHILS | 2022-08-15 | [facility] | 4.9 | k/mcl | (missing) | | (10*3/UL) | 12:47 | Health | | | | | IN BLOOD BY | | System - | | | | | AUTOMATED | | [facility] | | | | | COUNT | | | | | | + + + + + + + | | 2022-08-15 | [facility] | 41.2 | % | (missing) | | LYMPHOCYTES/ | 12:47 | Health | | | | | 100 | | System - | | | | | LEUKOCYTES | | [facility] | | | | | IN BLOOD BY | | | | | | | AUTOMATED | | | | | | | COUNT | | | | | | + + + + + + + | | 2022-08-15 | [facility] | 41.2 | % | (missing) | | LYMPHOCYTES/ | 12:47 | Health | | | | | 100 | | System - | | | | | LEUKOCYTES | | [facility] | | | | | IN BLOOD BY | | | | | | | AUTOMATED | | | | | | | COUNT | | | | | | + + + + + + + | HEMATOCRIT | 2022-08-15 | [facility] | 42.4 | % | (missing) | | (%) IN BLOOD | 12:47 | Health | | | | | BY | | System - | | | | | AUTOMATED | | [facility] | | | | | COUNT | | | | | | + + + + + + + | HEMATOCRIT | 2022-08-15 | [facility] | 42.4 | % | (missing) | | (%) IN BLOOD | 12:47 | Health | | | | | BY | | System - | | | | | AUTOMATED | | [facility] | | | | | COUNT | | | | | | + + + + + + + | | 2022-08-15 | [facility] | 5.1 | % | (missing) | | MONOCYTES/10 | 12:47 | Health | | | | | 0 LEUKOCYTES | | System - | | | | | IN BLOOD BY | | [facility] | | | | | AUTOMATED | | | | | | | COUNT | | | | | | + + + + + + + | | 2022-08-15 | [facility] | 5.1 | % | (missing) | | MONOCYTES/10 | 12:47 | Health | | | | | 0 LEUKOCYTES | | System - | | | | | IN BLOOD BY | | [facility] | | | | | AUTOMATED | | | | | | | COUNT | | | | | | + + + + + + + | | 2022-08-15 | [facility] | 53.1 | % | (missing) | | NEUTROPHILS/ | 12:47 | Health | | | | | 100 | | System - | | | | | LEUKOCYTES | | [facility] | | | | | IN BLOOD BY | | | | | | | AUTOMATED | | | | | | | COUNT | | | | | | + + + + + + + | | 2022-08-15 | [facility] | 53.1 | % | (missing) | | NEUTROPHILS/ | 12:47 | Health | | | | | 100 | | System - | | | | | LEUKOCYTES | | [facility] | | | | | IN BLOOD BY | | | | | | | AUTOMATED | | | | | | | COUNT | | | | | | + + + + + + + | BLOOD UREA | 2022-08-15 | [facility] | 7 | mg/dl | (missing) | | NITROGEN | 12:47 | Health | | | | | (BUN) | | System - | | | | | (MG/DL) IN | | [facility] | | | | | SER/PLAS | | | | | | + + + + + + + | BLOOD UREA | 2022-08-15 | [facility] | 7 | mg/dl | (missing) | | NITROGEN | 12:47 | Health | | | | | (BUN) | | System - | | | | | (MG/DL) IN | | [facility] | | | | | SER/PLAS | | | | | | + + + + + + + | PROTEIN | 2022-08-15 | [facility] | 7.0 | g/dl | (missing) | | (G/DL) IN | 12:47 | Health | | | | | SER/PLAS | | System - | | | | | | | [facility] | | | | + + + + + + + | PROTEIN | 2022-08-15 | [facility] | 7.0 | g/dl | (missing) | | (G/DL) IN | 12:47 | Health | | | | | SER/PLAS | | System - | | | | | | | [facility] | | | | + + + + + + + | ALKALINE | 2022-08-15 | [facility] | 75 | u/l | (missing) | | PHOSPHATASE | 12:47 | Health | | | | | (U/L) IN | | System - | | | | | SER/PLAS | | [facility] | | | | + + + + + + + | ALKALINE | 2022-08-15 | [facility] | 75 | u/l | (missing) | | PHOSPHATASE | 12:47 | Health | | | | | (U/L) IN | | System - | | | | | SER/PLAS | | [facility] | | | | + + + + + + + | CALCIUM | 2022-08-15 | [facility] | 8.3 | mg/dl | (missing) | | (MG/DL) IN | 12:47 | Health | | | | | SER/PLAS | | System - | | | | | | | [facility] | | | | + + + + + + + | CALCIUM | 2022-08-15 | [facility] | 8.3 | mg/dl | (missing) | | (MG/DL) IN | 12:47 | Health | | | | | SER/PLAS | | System - | | | | | | | [facility] | | | | + + + + + + + | ERYTHROCYTE | 2022-08-15 | [facility] | 87.1 | fl | (missing) | | MEAN | 12:47 | Health | | | | | CORPUSCULAR | | System - | | | | | VOLUME (FL) | | [facility] | | | | | BY AUTOMATED | | | | | | | COUNT | | | | | | + + + + + + + | ERYTHROCYTE | 2022-08-15 | [facility] | 87.1 | fl | (missing) | | MEAN | 12:47 | Health | | | | | CORPUSCULAR | | System - | | | | | VOLUME (FL) | | [facility] | | | | | BY AUTOMATED | | | | | | | COUNT | | | | | | + + + + + + + | | 2022-08-15 | [facility] | 9.2 | k/mcl | (missing) | | LEUKOCYTES(1 | 12:47 | Health | | | | | 0*3/UL) IN | | System - | | | | | BLOOD BY | | [facility] | | | | | AUTOMATED | | | | | | | COUNT | | | | | | + + + + + + + | | 2022-08-15 | [facility] | 9.2 | k/mcl | (missing) | | LEUKOCYTES(1 | 12:47 | Health | | | | | 0*3/UL) IN | | System - | | | | | BLOOD BY | | [facility] | | | | | AUTOMATED | | | | | | | COUNT | | | | | | + + + + + + + | PLATELET | 2022-08-15 | [facility] | 9.8 | fl | (missing) | | MEAN VOLUME | 12:47 | Health | | | | | (FL) IN | | System - | | | | | BLOOD BY | | [facility] | | | | | AUTOMATED | | | | | | | COUNT | | | | | | + + + + + + + | PLATELET | 2022-08-15 | [facility] | 9.8 | fl | (missing) | | MEAN VOLUME | 12:47 | Health | | | | | (FL) IN | | System - | | | | | BLOOD BY | | [facility] | | | | | AUTOMATED | | | | | | | COUNT | | | | | | + + + + + + + | | 2022-08-15 | [facility] | Negative | (missing) | (missing) | | BARBITURATES | 12:47 | Health | | | | | PRESENCE IN | | System - | | | | | URINE BY | | [facility] | | | | | SCREEN | | | | | | | METHOD | | | | | | + + + + + + + | | 2022-08-15 | [facility] | Negative | (missing) | (missing) | | BENZODIAZEPI | 12:47 | Health | | | | | SURYA | | System - | | | | | (PRESENCE) | | [facility] | | | | | IN URINE BY | | | | | | | SCREEN | | | | | | | METHOD | | | | | | + + + + + + + | COCAINE | 2022-08-15 | [facility] | Negative | (missing) | (missing) | | (PRESENCE) | 12:47 | Health | | | | | IN URINE BY | | System - | | | | | SCREEN | | [facility] | | | | | METHOD | | | | | | + + + + + + + | METHADONE | 2022-08-15 | [facility] | Negative | (missing) | (missing) | | (PRESENCE) | 12:47 | Health | | | | | IN URINE BY | | System - | | | | | SCREEN | | [facility] | | | | | METHOD | | | | | | + + + + + + + | OPIATES | 2022-08-15 | [facility] | Negative | (missing) | (missing) | | (PRES[facility]) | 12:47 | Health | | | | | IN URINE BY | | System - | | | | | SCREEN | | [facility] | | | | | METHOD | | | | | | + + + + + + + | OXYCODONE | 2022-08-15 | [facility] | Negative | (missing) | (missing) | | ([facility]) | 12:47 | Health | | | | | IN URINE BY | | System - | | | | | SCREEN | | [facility] | | | | | METHOD | | | | | | + + + + + + + | | 2022-08-15 | [facility] | Negative | (missing) | (missing) | | PHENCYCLIDIN | 12:47 | Health | | | | | E ([facility]) | | System - | | | | | IN URINE BY | | [facility] | | | | | SCREEN | | | | | | | METHOD | | | | | | + + + + + + + | TRICYCLIC | 2022-08-15 | [facility] | Negative | (missing) | (missing) | | ANTIDEPRESSA | 12:47 | Health | | | | | NTS | | System - | | | | | ([facility]) | | [facility] | | | | | IN URINE | | | | | | + + + + + + + | | 2022-08-15 | [facility] | Negative | (missing) | (missing) | | PHENCYCLIDIN | 12:47 | Health | | | | | E ([facility]) | | System - | | | | | IN URINE BY | | [facility] | | | | | SCREEN | | | | | | | METHOD | | | | | | + + + + + + + | OPIATES | 2022-08-15 | [facility] | Negative | (missing) | (missing) | | ([facility]) | 12:47 | Health | | | | | IN URINE BY | | System - | | | | | SCREEN | | [facility] | | | | | METHOD | | | | | | + + + + + + + | TRICYCLIC | 2022-08-15 | [facility] | Negative | (missing) | (missing) | | ANTIDEPRESSA | 12:47 | Health | | | | | NTS | | System - | | | | | ([facility]) | | [facility] | | | | | IN URINE | | | | | | + + + + + + + | AMPHETAMINE | 2022-08-15 | [facility] | Negative | (missing) | (missing) | | ([facility]) | 12:47 | Health | | | | | IN URINE BY | | System - | | | | | SCREEN | | [facility] | | | | | METHOD | | | | | | + + + + + + + | OXYCODONE | 2022-08-15 | [facility] | Negative | (missing) | (missing) | | ([facility]) | 12:47 | Health | | | | | IN URINE BY | | System - | | | | | SCREEN | | [facility] | | | | | METHOD | | | | | | + + + + + + + | BHCG QUAL | 2022-08-15 | [facility] | Negative | (missing) | (missing) | | (CHORIOGONAD | 12:47 | Health | | | | | OTROPIN) IN | | System - | | | | | SER/PLAS | | [facility] | | | | + + + + + + + | COCAINE | 2022-08-15 | [facility] | Negative | (missing) | (missing) | | ([facility]) | 12:47 | Health | | | | | IN URINE BY | | System - | | | | | SCREEN | | [facility] | | | | | METHOD | | | | | | + + + + + + + | | 2022-08-15 | [facility] | Negative | (missing) | (missing) | | BARBITURATES | 12:47 | Health | | | | | [facility] IN | | System - | | | | | URINE BY | | [facility] | | | | | SCREEN | | | | | | | METHOD | | | | | | + + + + + + + | | 2022-08-15 | [facility] | Negative | (missing) | (missing) | | BENZODIAZEPI | 12:47 | Health | | | | | SURYA | | System - | | | | | ([facility]) | | [facility] | | | | | IN URINE BY | | | | | | | SCREEN | | | | | | | METHOD | | | | | | + + + + + + + | METHADONE | 2022-08-15 | [facility] | Negative | (missing) | (missing) | | ([facility]) | 12:47 | Health | | | | | IN URINE BY | | System - | | | | | SCREEN | | [facility] | | | | | METHOD | | | | | | + + + + + + + | BHCG QUAL | 2022-08-15 | [facility] | Negative | (missing) | (missing) | | (CHORIOGONAD | 12:47 | Health | | | | | OTROPIN) IN | | System - | | | | | SER/PLAS | | [facility] | | | | + + + + + + + | AMPHETAMINE | 2022-08-15 | [facility] | Negative | (missing) | (missing) | | ([facility]) | 12:47 | Health | | | | | IN URINE BY | | System - | | | | | SCREEN | | [facility] | | | | | METHOD | | | | | | + + + + + + + | | 2022-08-15 | [facility] | Presumptive | (missing) | (missing) | | METHAMPHETAM | 12:47 | Health | Positive | | | | INE | | System - | | | | | ([facility]) | | [facility] | | | | | IN URINE BY | | | | | | | SCREEN | | | | | | | METHOD | | | | | | + + + + + + + | THC | 2022-08-15 | [facility] | Presumptive | (missing) | (missing) | | (CANNABINOID | 12:47 | Health | Positive | | | | ) IN URINE | | System - | | | | | BY SCREEN | | [facility] | | | | | METHOD | | | | | | + + + + + + + | THC | 2022-08-15 | [facility] | Presumptive | (missing) | (missing) | | (CANNABINOID | 12:47 | Health | Positive | | | | ) IN URINE | | System - | | | | | BY SCREEN | | [facility] | | | | | METHOD | | | | | | + + + + + + + | | 2022-08-15 | [facility] | Presumptive | (missing) | (missing) | | METHAMPHETAM | 12:47 | Health | Positive | | | | INE | | System - | | | | | ([facility]) | | [facility] | | | | | IN URINE BY | | | | | | | SCREEN | | | | | | | METHOD | | | | | | + + + + + + + + + | Result panel 74 | + + + + + + + + + | ADENOVIRUS | 2022-08-15 | [facility] | Not | (missing) | (missing) | | DETECTION BY | 12:50 | Health | Detected | | | | PCR | | System - | | | | | | | [facility] | | | | + + + + + + + | BORDETELLA | 2022-08-15 | [facility] | Not | (missing) | (missing) | | PARAPERTUSSI | 12:50 | Health | Detected | | | | S | | System - | | | | | | | [facility] | | | | + + + + + + + | BORDETELLA | 2022-08-15 | [facility] | Not | (missing) | (missing) | | PERTUSSIS | 12:50 | Health | Detected | | | | | | System - | | | | | | | [facility] | | | | + + + + + + + | | 2022-08-15 | [facility] | Not | (missing) | (missing) | | CHLAMYDOPHIL | 12:50 | Health | Detected | | | | A PNEUMONIAE | | System - | | | | | | | [facility] | | | | + + + + + + + | CORONAVIRUS | 2022-08-15 | [facility] | Not | (missing) | (missing) | | 229E | 12:50 | Health | Detected | | | | | | System - | | | | | | | [facility] | | | | + + + + + + + | CORONAVIRUS | 2022-08-15 | [facility] | Not | (missing) | (missing) | | HKU1 | 12:50 | Health | Detected | | | | | | System - | | | | | | | [facility] | | | | + + + + + + + | CORONAVIRUS | 2022-08-15 | [facility] | Not | (missing) | (missing) | | NL63 | 12:50 | Health | Detected | | | | | | System - | | | | | | | [facility] | | | | + + + + + + + | CORONAVIRUS | 2022-08-15 | [facility] | Not | (missing) | (missing) | | OC43 | 12:50 | Health | Detected | | | | | | System - | | | | | | | [facility] | | | | + + + + + + + | INFLUENZA A | 2022-08-15 | [facility] | Not | (missing) | (missing) | | | 12:50 | Health | Detected | | | | | | System - | | | | | | | [facility] | | | | + + + + + + + | INFLUENZA B | 2022-08-15 | [facility] | Not | (missing) | (missing) | | | 12:50 | Health | Detected | | | | | | System - | | | | | | | [facility] | | | | + + + + + + + | | 2022-08-15 | [facility] | Not | (missing) | (missing) | | METAPNEUMOVI | 12:50 | Health | Detected | | | | KELVIN | | System - | | | | | | | [facility] | | | | + + + + + + + | MYCOPLASMA | 2022-08-15 | [facility] | Not | (missing) | (missing) | | PNEUMONIAE | 12:50 | Health | Detected | | | | PCR | | System - | | | | | | | [facility] | | | | + + + + + + + | | 2022-08-15 | [facility] | Not | (missing) | (missing) | | PARAINFLUENZ | 12:50 | Health | Detected | | | | A 1 | | System - | | | | | | | [facility] | | | | + + + + + + + | | 2022-08-15 | [facility] | Not | (missing) | (missing) | | PARAINFLUENZ | 12:50 | Health | Detected | | | | A 2 | | System - | | | | | | | [facility] | | | | + + + + + + + | | 2022-08-15 | [facility] | Not | (missing) | (missing) | | PARAINFLUENZ | 12:50 | Health | Detected | | | | A 3 | | System - | | | | | | | [facility] | | | | + + + + + + + | | 2022-08-15 | [facility] | Not | (missing) | (missing) | | PARAINFLUENZ | 12:50 | Health | Detected | | | | A 4 | | System - | | | | | | | [facility] | | | | + + + + + + + | | 2022-08-15 | [facility] | Not | (missing) | (missing) | | RHINOVIRUS/E | 12:50 | Health | Detected | | | | NTEROVIRUS | | System - | | | | | | | [facility] | | | | + + + + + + + | RSV | 2022-08-15 | [facility] | Not | (missing) | (missing) | | | 12:50 | Health | Detected | | | | | | System - | | | | | | | [facility] | | | | + + + + + + + | SARS-COV-2 | 2022-08-15 | [facility] | Not | (missing) | (missing) | | (COVID19) | 12:50 | Health | Detected | | | | BIOFIRE PCR | | System - | | | | | | | [facility] | | | | + + + + + + + | BORDETELLA | 2022-08-15 | [facility] | Not | (missing) | (missing) | | PERTUSSIS | 12:50 | Health | Detected | | | | | | System - | | | | | | | [facility] | | | | + + + + + + + | MYCOPLASMA | 2022-08-15 | [facility] | Not | (missing) | (missing) | | PNEUMONIAE | 12:50 | Health | Detected | | | | PCR | | System - | | | | | | | [facility] | | | | + + + + + + + | | 2022-08-15 | [facility] | Not | (missing) | (missing) | | PARAINFLUENZ | 12:50 | Health | Detected | | | | A 1 | | System - | | | | | | | [facility] | | | | + + + + + + + | | 2022-08-15 | [facility] | Not | (missing) | (missing) | | PARAINFLUENZ | 12:50 | Health | Detected | | | | A 2 | | System - | | | | | | | [facility] | | | | + + + + + + + | | 2022-08-15 | [facility] | Not | (missing) | (missing) | | CHLAMYDOPHIL | 12:50 | Health | Detected | | | | A PNEUMONIAE | | System - | | | | | | | [facility] | | | | + + + + + + + | | 2022-08-15 | [facility] | Not | (missing) | (missing) | | METAPNEUMOVI | 12:50 | Health | Detected | | | | KELVIN | | System - | | | | | | | [facility] | | | | + + + + + + + | ADENOVIRUS | 2022-08-15 | [facility] | Not | (missing) | (missing) | | DETECTION BY | 12:50 | Health | Detected | | | | PCR | | System - | | | | | | | [facility] | | | | + + + + + + + | INFLUENZA B | 2022-08-15 | [facility] | Not | (missing) | (missing) | | | 12:50 | Health | Detected | | | | | | System - | | | | | | | [facility] | | | | + + + + + + + | RSV | 2022-08-15 | [facility] | Not | (missing) | (missing) | | | 12:50 | Health | Detected | | | | | | System - | | | | | | | [facility] | | | | + + + + + + + | | 2022-08-15 | [facility] | Not | (missing) | (missing) | | RHINOVIRUS/E | 12:50 | Health | Detected | | | | NTEROVIRUS | | System - | | | | | | | [facility] | | | | + + + + + + + | CORONAVIRUS | 2022-08-15 | [facility] | Not | (missing) | (missing) | | 229E | 12:50 | Health | Detected | | | | | | System - | | | | | | | [facility] | | | | + + + + + + + | CORONAVIRUS | 2022-08-15 | [facility] | Not | (missing) | (missing) | | NL63 | 12:50 | Health | Detected | | | | | | System - | | | | | | | [facility] | | | | + + + + + + + | CORONAVIRUS | 2022-08-15 | [facility] | Not | (missing) | (missing) | | OC43 | 12:50 | Health | Detected | | | | | | System - | | | | | | | [facility] | | | | + + + + + + + | | 2022-08-15 | [facility] | Not | (missing) | (missing) | | PARAINFLUENZ | 12:50 | Health | Detected | | | | A 4 | | System - | | | | | | | [facility] | | | | + + + + + + + | | 2022-08-15 | [facility] | Not | (missing) | (missing) | | PARAINFLUENZ | 12:50 | Health | Detected | | | | A 3 | | System - | | | | | | | [facility] | | | | + + + + + + + | CORONAVIRUS | 2022-08-15 | [facility] | Not | (missing) | (missing) | | HKU1 | 12:50 | Health | Detected | | | | | | System - | | | | | | | [facility] | | | | + + + + + + + | ABBITELLA | 2022-08-15 | [facility] | Not | (missing) | (missing) | | PARAPERTUSSI | 12:50 | Health | Detected | | | | S | | System - | | | | | | | [facility] | | | | + + + + + + + | SARS-COV-2 | 2022-08-15 | [facility] | Not | (missing) | (missing) | | (COVID19) | 12:50 | Health | Detected | | | | BIOFIRE PCR | | System - | | | | | | | [facility] | | | | + + + + + + + + + | Result panel 75 | + + + + + + + + + | EGFR | 2022-08-23 | [facility] | > | | (missing) | | (GLOMERULAR | 16:29 | Health | | ml/min/1.73m | | | FILTRATION | | System - | | ? | | | RATE) | | [facility] | | | | | ML/MIN/1.73 | | | | | | | SQ M. | | | | | | + + + + + + + | EGFR | 2022-08-23 | [facility] | > | | (missing) | | (GLOMERULAR | 16:29 | Health | | ml/min/1.73m | | | FILTRATION | | System - | | ? | | | RATE) | | [facility] | | | | | ML/MIN/1.73 | | | | | | | SQ M. | | | | | | + + + + + + + | ALCOHOL | 2022-08-23 | [facility] | < | g/dl | (missing) | | (G/DL) IN | 16:29 | Health | | | | | SER/PLAS | | System - | | | | | | | [facility] | | | | + + + + + + + | ALCOHOL | 2022-08-23 | [facility] | < | g/dl | (missing) | | (G/DL) IN | 16:29 | Health | | | | | SER/PLAS | | System - | | | | | | | [facility] | | | | + + + + + + + | | 2022-08-23 | [facility] | < | mcg/ml | (missing) | | ACETAMINOPHE | 16:29 | Health | | | | | N (UG/ML) IN | | System - | | | | | SER/PLAS | | [facility] | | | | + + + + + + + | | 2022-08-23 | [facility] | < | mcg/ml | (missing) | | ACETAMINOPHE | 16:29 | Health | | | | | N (UG/ML) IN | | System - | | | | | SER/PLAS | | [facility] | | | | + + + + + + + | SALICYLATE | 2022-08-23 | [facility] | < | mg/dl | (missing) | | (MG/DL) IN | 16:29 | Health | | | | | SER/PLAS | | System - | | | | | | | [facility] | | | | + + + + + + + | SALICYLATE | 2022-08-23 | [facility] | < | mg/dl | (missing) | | (MG/DL) IN | 16:29 | Health | | | | | SER/PLAS | | System - | | | | | | | [facility] | | | | + + + + + + + | NRBC/100 | 2022-08-23 | [facility] | 0.0 | % | (missing) | | WBCS BY | 16:29 | Health | | | | | AUTOMATED | | System - | | | | | COUNT | | [facility] | | | | + + + + + + + | | 2022-08-23 | [facility] | 0.0 | % | (missing) | | EOSINOPHILS/ | 16:29 | Health | | | | | 100 | | System - | | | | | LEUKOCYTES | | [facility] | | | | | IN BLOOD BY | | | | | | | AUTOMATED | | | | | | | COUNT | | | | | | + + + + + + + | NRBC/100 | 2022-08-23 | [facility] | 0.0 | % | (missing) | | WBCS BY | 16:29 | Health | | | | | AUTOMATED | | System - | | | | | COUNT | | [facility] | | | | + + + + + + + | | 2022-08-23 | [facility] | 0.0 | % | (missing) | | EOSINOPHILS/ | 16:29 | Health | | | | | 100 | | System - | | | | | LEUKOCYTES | | [facility] | | | | | IN BLOOD BY | | | | | | | AUTOMATED | | | | | | | COUNT | | | | | | + + + + + + + | | 2022-08-23 | [facility] | 0.0 | k/mcl | (missing) | | NRBC(10*3/UL | 16:29 | Health | | | | | ) IN BLOOD | | System - | | | | | BY AUTOMATED | | [facility] | | | | | COUNT | | | | | | + + + + + + + | EOSINOPHILS | 2022-08-23 | [facility] | 0.0 | k/mcl | (missing) | | (10*3/UL) | 16:29 | Health | | | | | IN BLOOD BY | | System - | | | | | AUTOMATED | | [facility] | | | | | COUNT | | | | | | + + + + + + + | EOSINOPHILS | 2022-08-23 | [facility] | 0.0 | k/mcl | (missing) | | (10*3/UL) | 16:29 | Health | | | | | IN BLOOD BY | | System - | | | | | AUTOMATED | | [facility] | | | | | COUNT | | | | | | + + + + + + + | | 2022-08-23 | [facility] | 0.0 | k/mcl | (missing) | | NRBC(10*3/UL | 16:29 | Health | | | | | ) IN BLOOD | | System - | | | | | BY AUTOMATED | | [facility] | | | | | COUNT | | | | | | + + + + + + + | IMMATURE | 2022-08-23 | [facility] | 0.08 | k/mcl | (missing) | | GRANULOCYTE | 16:29 | Health | | | | | (ABS) | | System - | | | | | | | [facility] | | | | + + + + + + + | IMMATURE | 2022-08-23 | [facility] | 0.08 | k/mcl | (missing) | | GRANULOCYTE | 16:29 | Health | | | | | (ABS) | | System - | | | | | | | [facility] | | | | + + + + + + + | BASOPHILS | 2022-08-23 | [facility] | 0.1 | k/mcl | (missing) | | (10*3/UL) IN | 16:29 | Health | | | | | BLOOD BY | | System - | | | | | AUTOMATED | | [facility] | | | | | COUNT | | | | | | + + + + + + + | BASOPHILS | 2022-08-23 | [facility] | 0.1 | k/mcl | (missing) | | (10*3/UL) IN | 16:29 | Health | | | | | BLOOD BY | | System - | | | | | AUTOMATED | | [facility] | | | | | COUNT | | | | | | + + + + + + + | IMMATURE | 2022-08-23 | [facility] | 0.5 | % | (missing) | | GRANULOCYTE | 16:29 | Health | | | | | % (AUTO) | | System - | | | | | | | [facility] | | | | + + + + + + + | IMMATURE | 2022-08-23 | [facility] | 0.5 | % | (missing) | | GRANULOCYTE | 16:29 | Health | | | | | % (AUTO) | | System - | | | | | | | [facility] | | | | + + + + + + + | BILIRUBIN | 2022-08-23 | [facility] | 0.5 | mg/dl | (missing) | | TOTAL | 16:29 | Health | | | | | (MG/DL) IN | | System - | | | | | SER/PLAS | | [facility] | | | | + + + + + + + | BILIRUBIN | 2022-08-23 | [facility] | 0.5 | mg/dl | (missing) | | TOTAL | 16:29 | Health | | | | | (MG/DL) IN | | System - | | | | | SER/PLAS | | [facility] | | | | + + + + + + + | | 2022-08-23 | [facility] | 0.6 | % | (missing) | | BASOPHILS/10 | 16:29 | Health | | | | | 0 LEUKOCYTES | | System - | | | | | IN BLOOD BY | | [facility] | | | | | AUTOMATED | | | | | | | COUNT | | | | | | + + + + + + + | | 2022-08-23 | [facility] | 0.6 | % | (missing) | | BASOPHILS/10 | 16:29 | Health | | | | | 0 LEUKOCYTES | | System - | | | | | IN BLOOD BY | | [facility] | | | | | AUTOMATED | | | | | | | COUNT | | | | | | + + + + + + + | MONOCYTES | 2022-08-23 | [facility] | 0.8 | k/mcl | (missing) | | (10*3/UL) IN | 16:29 | Health | | | | | BLOOD BY | | System - | | | | | AUTOMATED | | [facility] | | | | | COUNT | | | | | | + + + + + + + | MONOCYTES | 2022-08-23 | [facility] | 0.8 | k/mcl | (missing) | | (10*3/UL) IN | 16:29 | Health | | | | | BLOOD BY | | System - | | | | | AUTOMATED | | [facility] | | | | | COUNT | | | | | | + + + + + + + | CREATININE | 2022-08-23 | [facility] | 0.9 | mg/dl | (missing) | | (MG/DL) IN | 16:29 | Health | | | | | SER/PLAS | | System - | | | | | | | [facility] | | | | + + + + + + + | CREATININE | 2022-08-23 | [facility] | 0.9 | mg/dl | (missing) | | (MG/DL) IN | 16:29 | Health | | | | | SER/PLAS | | System - | | | | | | | [facility] | | | | + + + + + + + | PROTEIN IN | 2022-08-23 | [facility] | 1 | (missing) | (missing) | | URINE BY | 16:29 | Health | | | | | TEST STRIP | | System - | | | | | | | [facility] | | | | + + + + + + + | PROTEIN IN | 2022-08-23 | [facility] | 1 | (missing) | (missing) | | URINE BY | 16:29 | Health | | | | | TEST STRIP | | System - | | | | | | | [facility] | | | | + + + + + + + | SPECIFIC | 2022-08-23 | [facility] | 1.022 | (missing) | (missing) | | GRAVITY OF | 16:29 | Health | | | | | URINE BY | | System - | | | | | AUTOMATED | | [facility] | | | | | TEST STRIP | | | | | | + + + + + + + | SPECIFIC | 2022-08-23 | [facility] | 1.022 | (missing) | (missing) | | GRAVITY OF | 16:29 | Health | | | | | URINE BY | | System - | | | | | AUTOMATED | | [facility] | | | | | TEST STRIP | | | | | | + + + + + + + | NEUTROPHILS | 2022-08-23 | [facility] | 10.3 | k/mcl | (missing) | | (10*3/UL) | 16:29 | Health | | | | | IN BLOOD BY | | System - | | | | | AUTOMATED | | [facility] | | | | | COUNT | | | | | | + + + + + + + | NEUTROPHILS | 2022-08-23 | [facility] | 10.3 | k/mcl | (missing) | | (10*3/UL) | 16:29 | Health | | | | | IN BLOOD BY | | System - | | | | | AUTOMATED | | [facility] | | | | | COUNT | | | | | | + + + + + + + | CHLORIDE | 2022-08-23 | [facility] | 104 | mmol/l | (missing) | | (MMOL/L) IN | 16:29 | Health | | | | | SER/PLAS | | System - | | | | | | | [facility] | | | | + + + + + + + | CHLORIDE | 2022-08-23 | [facility] | 104 | mmol/l | (missing) | | (MMOL/L) IN | 16:29 | Health | | | | | SER/PLAS | | System - | | | | | | | [facility] | | | | + + + + + + + | ERYTHROCYTE | 2022-08-23 | [facility] | 12.7 | % | (missing) | | | 16:29 | Health | | | | | DISTRIBUTION | | System - | | | | | WIDTH | | [facility] | | | | | (RATIO) BY | | | | | | | AUTOMATED | | | | | | | COUNT | | | | | | + + + + + + + | ERYTHROCYTE | 2022-08-23 | [facility] | 12.7 | % | (missing) | | | 16:29 | Health | | | | | DISTRIBUTION | | System - | | | | | WIDTH | | [facility] | | | | | (RATIO) BY | | | | | | | AUTOMATED | | | | | | | COUNT | | | | | | + + + + + + + | SODIUM | 2022-08-23 | [facility] | 138 | mmol/l | (missing) | | (MMOL/L) IN | 16:29 | Health | | | | | SER/PLAS | | System - | | | | | | | [facility] | | | | + + + + + + + | SODIUM | 2022-08-23 | [facility] | 138 | mmol/l | (missing) | | (MMOL/L) IN | 16:29 | Health | | | | | SER/PLAS | | System - | | | | | | | [facility] | | | | + + + + + + + | | 2022-08-23 | [facility] | 15.3 | k/mcl | (missing) | | LEUKOCYTES(1 | 16:29 | Health | | | | | 0*3/UL) IN | | System - | | | | | BLOOD BY | | [facility] | | | | | AUTOMATED | | | | | | | COUNT | | | | | | + + + + + + + | | 2022-08-23 | [facility] | 15.3 | k/mcl | (missing) | | LEUKOCYTES(1 | 16:29 | Health | | | | | 0*3/UL) IN | | System - | | | | | BLOOD BY | | [facility] | | | | | AUTOMATED | | | | | | | COUNT | | | | | | + + + + + + + | HEMOGLOBIN | 2022-08-23 | [facility] | 15.4 | g/dl | (missing) | | (G/DL) IN | 16:29 | Health | | | | | BLOOD | | System - | | | | | | | [facility] | | | | + + + + + + + | HEMOGLOBIN | 2022-08-23 | [facility] | 15.4 | g/dl | (missing) | | (G/DL) IN | 16:29 | Health | | | | | BLOOD | | System - | | | | | | | [facility] | | | | + + + + + + + | CARBON | 2022-08-23 | [facility] | 17 | mmol/l | (missing) | | DIOXIDE | 16:29 | Health | | | | | (CO2), TOTAL | | System - | | | | | (MMOL/L) IN | | [facility] | | | | | SER/PLAS | | | | | | + + + + + + + | CARBON | 2022-08-23 | [facility] | 17 | mmol/l | (missing) | | DIOXIDE | 16:29 | Health | | | | | (CO2), TOTAL | | System - | | | | | (MMOL/L) IN | | [facility] | | | | | SER/PLAS | | | | | | + + + + + + + | ANION GAP | 2022-08-23 | [facility] | 17.0 | mmol/l | (missing) | | IN SER/PLAS | 16:29 | Health | | | | | | | System - | | | | | | | [facility] | | | | + + + + + + + | ANION GAP | 2022-08-23 | [facility] | 17.0 | mmol/l | (missing) | | IN SER/PLAS | 16:29 | Health | | | | | | | System - | | | | | | | [facility] | | | | + + + + + + + | KETONES IN | 2022-08-23 | [facility] | 2 | (missing) | (missing) | | URINE | 16:29 | Health | | | | | | | System - | | | | | | | [facility] | | | | + + + + + + + | LEUKOCYTE | 2022-08-23 | [facility] | 2 | (missing) | (missing) | | ESTERASE | 16:29 | Health | | | | | PRESENCE IN | | System - | | | | | URINE BY | | [facility] | | | | | TEST STRIP | | | | | | + + + + + + + | KETONES IN | 2022-08-23 | [facility] | 2 | (missing) | (missing) | | URINE | 16:29 | Health | | | | | | | System - | | | | | | | [facility] | | | | + + + + + + + | LEUKOCYTE | 2022-08-23 | [facility] | 2 | (missing) | (missing) | | ESTERASE | 16:29 | Health | | | | | PRESENCE IN | | System - | | | | | URINE BY | | [facility] | | | | | TEST STRIP | | | | | | + + + + + + + | WBC | 2022-08-23 | [facility] | 25 | /hpf | (missing) | | (LEUKOCYTE) | 16:29 | Health | | | | | (#/HPF) IN | | System - | | | | | URINE | | [facility] | | | | | SEDIMENT | | | | | | + + + + + + + | WBC | 2022-08-23 | [facility] | 25 | /hpf | (missing) | | (LEUKOCYTE) | 16:29 | Health | | | | | (#/HPF) IN | | System - | | | | | URINE | | [facility] | | | | | SEDIMENT | | | | | | + + + + + + + | ASPARTATE | 2022-08-23 | [facility] | 26 | u/l | (missing) | | AMINOTRANSFE | 16:29 | Health | | | | | RASE (SGOT) | | System - | | | | | (U/L) IN | | [facility] | | | | | SER/PLAS | | | | | | + + + + + + + | ASPARTATE | 2022-08-23 | [facility] | 26 | u/l | (missing) | | AMINOTRANSFE | 16:29 | Health | | | | | RASE (SGOT) | | System - | | | | | (U/L) IN | | [facility] | | | | | SER/PLAS | | | | | | + + + + + + + | | 2022-08-23 | [facility] | 26.5 | % | (missing) | | LYMPHOCYTES/ | 16:29 | Health | | | | | 100 | | System - | | | | | LEUKOCYTES | | [facility] | | | | | IN BLOOD BY | | | | | | | AUTOMATED | | | | | | | COUNT | | | | | | + + + + + + + | | 2022-08-23 | [facility] | 26.5 | % | (missing) | | LYMPHOCYTES/ | 16:29 | Health | | | | | 100 | | System - | | | | | LEUKOCYTES | | [facility] | | | | | IN BLOOD BY | | | | | | | AUTOMATED | | | | | | | COUNT | | | | | | + + + + + + + | RBC (#/HPF) | 2022-08-23 | [facility] | 3 | /hpf | (missing) | | IN URINE | 16:29 | Health | | | | | SEDIMENT | | System - | | | | | | | [facility] | | | | + + + + + + + | RBC (#/HPF) | 2022-08-23 | [facility] | 3 | /hpf | (missing) | | IN URINE | 16:29 | Health | | | | | SEDIMENT | | System - | | | | | | | [facility] | | | | + + + + + + + | POTASSIUM | 2022-08-23 | [facility] | 3.5 | mmol/l | (missing) | | (MMOL/L) IN | 16:29 | Health | | | | | SER/PLAS | | System - | | | | | | | [facility] | | | | + + + + + + + | POTASSIUM | 2022-08-23 | [facility] | 3.5 | mmol/l | (missing) | | (MMOL/L) IN | 16:29 | Health | | | | | SER/PLAS | | System - | | | | | | | [facility] | | | | + + + + + + + | ERYTHROCYTE | 2022-08-23 | [facility] | 30.2 | pg | (missing) | | MEAN | 16:29 | Health | | | | | CORPUSCULAR | | System - | | | | | HEMOGLOBIN | | [facility] | | | | | (PG) BY | | | | | | | AUTOMATED | | | | | | | COUNT | | | | | | + + + + + + + | ERYTHROCYTE | 2022-08-23 | [facility] | 30.2 | pg | (missing) | | MEAN | 16:29 | Health | | | | | CORPUSCULAR | | System - | | | | | HEMOGLOBIN | | [facility] | | | | | (PG) BY | | | | | | | AUTOMATED | | | | | | | COUNT | | | | | | + + + + + + + | ALANINE | 2022-08-23 | [facility] | 34 | u/l | (missing) | | AMINOTRANSFE | 16:29 | Health | | | | | RASE (SGPT) | | System - | | | | | (U/L) IN | | [facility] | | | | | SER/PLAS | | | | | | + + + + + + + | ALANINE | 2022-08-23 | [facility] | 34 | u/l | (missing) | | AMINOTRANSFE | 16:29 | Health | | | | | RASE (SGPT) | | System - | | | | | (U/L) IN | | [facility] | | | | | SER/PLAS | | | | | | + + + + + + + | ERYTHROCYTE | 2022-08-23 | [facility] | 34.5 | g/dl | (missing) | | MEAN | 16:29 | Health | | | | | CORPUSCULAR | | System - | | | | | HEMOGLOBIN | | [facility] | | | | | CONCENTRATIO | | | | | | | N (G/DL) BY | | | | | | | AUTOMATED | | | | | | + + + + + + + | ERYTHROCYTE | 2022-08-23 | [facility] | 34.5 | g/dl | (missing) | | MEAN | 16:29 | Health | | | | | CORPUSCULAR | | System - | | | | | HEMOGLOBIN | | [facility] | | | | | CONCENTRATIO | | | | | | | N (G/DL) BY | | | | | | | AUTOMATED | | | | | | + + + + + + + | BACTERIA | 2022-08-23 | [facility] | 4 | /hpf | (missing) | | (#/HPF) IN | 16:29 | Health | | | | | URINE | | System - | | | | | | | [facility] | | | | + + + + + + + | BACTERIA | 2022-08-23 | [facility] | 4 | /hpf | (missing) | | (#/HPF) IN | 16:29 | Health | | | | | URINE | | System - | | | | | | | [facility] | | | | + + + + + + + | LYMPHOCYTES | 2022-08-23 | [facility] | 4.0 | k/mcl | (missing) | | (10*3/UL) | 16:29 | Health | | | | | IN BLOOD BY | | System - | | | | | AUTOMATED | | [facility] | | | | | COUNT | | | | | | + + + + + + + | LYMPHOCYTES | 2022-08-23 | [facility] | 4.0 | k/mcl | (missing) | | (10*3/UL) | 16:29 | Health | | | | | IN BLOOD BY | | System - | | | | | AUTOMATED | | [facility] | | | | | COUNT | | | | | | + + + + + + + | ALBUMIN | 2022-08-23 | [facility] | 4.2 | g/dl | (missing) | | (G/DL) IN | 16:29 | Health | | | | | SER/PLAS | | System - | | | | | | | [facility] | | | | + + + + + + + | ALBUMIN | 2022-08-23 | [facility] | 4.2 | g/dl | (missing) | | (G/DL) IN | 16:29 | Health | | | | | SER/PLAS | | System - | | | | | | | [facility] | | | | + + + + + + + | PLATELETS | 2022-08-23 | [facility] | 418 | k/mcl | (missing) | | (10*3/UL) IN | 16:29 | Health | | | | | BLOOD | | System - | | | | | AUTOMATED | | [facility] | | | | | COUNT | | | | | | + + + + + + + | PLATELETS | 2022-08-23 | [facility] | 418 | k/mcl | (missing) | | (10*3/UL) IN | 16:29 | Health | | | | | BLOOD | | System - | | | | | AUTOMATED | | [facility] | | | | | COUNT | | | | | | + + + + + + + | HEMATOCRIT | 2022-08-23 | [facility] | 44.6 | % | (missing) | | (%) IN BLOOD | 16:29 | Health | | | | | BY | | System - | | | | | AUTOMATED | | [facility] | | | | | COUNT | | | | | | + + + + + + + | HEMATOCRIT | 2022-08-23 | [facility] | 44.6 | % | (missing) | | (%) IN BLOOD | 16:29 | Health | | | | | BY | | System - | | | | | AUTOMATED | | [facility] | | | | | COUNT | | | | | | + + + + + + + | | 2022-08-23 | [facility] | 5.0 | % | (missing) | | MONOCYTES/10 | 16:29 | Health | | | | | 0 LEUKOCYTES | | System - | | | | | IN BLOOD BY | | [facility] | | | | | AUTOMATED | | | | | | | COUNT | | | | | | + + + + + + + | | 2022-08-23 | [facility] | 5.0 | % | (missing) | | MONOCYTES/10 | 16:29 | Health | | | | | 0 LEUKOCYTES | | System - | | | | | IN BLOOD BY | | [facility] | | | | | AUTOMATED | | | | | | | COUNT | | | | | | + + + + + + + | | 2022-08-23 | [facility] | 5.10 | m/mcl | (missing) | | ERYTHROCYTES | 16:29 | Health | | | | | (10*6/UL) | | System - | | | | | IN BLOOD BY | | [facility] | | | | | AUTOMATED | | | | | | | COUNT | | | | | | + + + + + + + | | 2022-08-23 | [facility] | 5.10 | m/mcl | (missing) | | ERYTHROCYTES | 16:29 | Health | | | | | (10*6/UL) | | System - | | | | | IN BLOOD BY | | [facility] | | | | | AUTOMATED | | | | | | | COUNT | | | | | | + + + + + + + | PROTEIN | 2022-08-23 | [facility] | 6.8 | g/dl | (missing) | | (G/DL) IN | 16:29 | Health | | | | | SER/PLAS | | System - | | | | | | | [facility] | | | | + + + + + + + | PROTEIN | 2022-08-23 | [facility] | 6.8 | g/dl | (missing) | | (G/DL) IN | 16:29 | Health | | | | | SER/PLAS | | System - | | | | | | | [facility] | | | | + + + + + + + | | 2022-08-23 | [facility] | 67.4 | % | (missing) | | NEUTROPHILS/ | 16:29 | Health | | | | | 100 | | System - | | | | | LEUKOCYTES | | [facility] | | | | | IN BLOOD BY | | | | | | | AUTOMATED | | | | | | | COUNT | | | | | | + + + + + + + | | 2022-08-23 | [facility] | 67.4 | % | (missing) | | NEUTROPHILS/ | 16:29 | Health | | | | | 100 | | System - | | | | | LEUKOCYTES | | [facility] | | | | | IN BLOOD BY | | | | | | | AUTOMATED | | | | | | | COUNT | | | | | | + + + + + + + | PH OF URINE | 2022-08-23 | [facility] | 7.5 | (missing) | (missing) | | | 16:29 | Health | | | | | | | System - | | | | | | | [facility] | | | | + + + + + + + | PH OF URINE | 2022-08-23 | [facility] | 7.5 | (missing) | (missing) | | | 16:29 | Health | | | | | | | System - | | | | | | | [facility] | | | | + + + + + + + | SQUAMOUS | 2022-08-23 | [facility] | 74 | /hpf | (missing) | | EPITHELIAL | 16:29 | Health | | | | | CELLS | | System - | | | | | (#/HPF) IN | | [facility] | | | | | URINE | | | | | | | SEDIMENT | | | | | | + + + + + + + | SQUAMOUS | 2022-08-23 | [facility] | 74 | /hpf | (missing) | | EPITHELIAL | 16:29 | Health | | | | | CELLS | | System - | | | | | (#/HPF) IN | | [facility] | | | | | URINE | | | | | | | SEDIMENT | | | | | | + + + + + + + | BLOOD UREA | 2022-08-23 | [facility] | 8 | mg/dl | (missing) | | NITROGEN | 16:29 | Health | | | | | (BUN) | | System - | | | | | (MG/DL) IN | | [facility] | | | | | SER/PLAS | | | | | | + + + + + + + | BLOOD UREA | 2022-08-23 | [facility] | 8 | mg/dl | (missing) | | NITROGEN | 16:29 | Health | | | | | (BUN) | | System - | | | | | (MG/DL) IN | | [facility] | | | | | SER/PLAS | | | | | | + + + + + + + | ALKALINE | 2022-08-23 | [facility] | 86 | u/l | (missing) | | PHOSPHATASE | 16:29 | Health | | | | | (U/L) IN | | System - | | | | | SER/PLAS | | [facility] | | | | + + + + + + + | ALKALINE | 2022-08-23 | [facility] | 86 | u/l | (missing) | | PHOSPHATASE | 16:29 | Health | | | | | (U/L) IN | | System - | | | | | SER/PLAS | | [facility] | | | | + + + + + + + | ERYTHROCYTE | 2022-08-23 | [facility] | 87.5 | fl | (missing) | | MEAN | 16:29 | Health | | | | | CORPUSCULAR | | System - | | | | | VOLUME (FL) | | [facility] | | | | | BY AUTOMATED | | | | | | | COUNT | | | | | | + + + + + + + | ERYTHROCYTE | 2022-08-23 | [facility] | 87.5 | fl | (missing) | | MEAN | 16:29 | Health | | | | | CORPUSCULAR | | System - | | | | | VOLUME (FL) | | [facility] | | | | | BY AUTOMATED | | | | | | | COUNT | | | | | | + + + + + + + | CALCIUM | 2022-08-23 | [facility] | 9.2 | mg/dl | (missing) | | (MG/DL) IN | 16:29 | Health | | | | | SER/PLAS | | System - | | | | | | | [facility] | | | | + + + + + + + | CALCIUM | 2022-08-23 | [facility] | 9.2 | mg/dl | (missing) | | (MG/DL) IN | 16:29 | Health | | | | | SER/PLAS | | System - | | | | | | | [facility] | | | | + + + + + + + | PLATELET | 2022-08-23 | [facility] | 9.7 | fl | (missing) | | MEAN VOLUME | 16:29 | Health | | | | | (FL) IN | | System - | | | | | BLOOD BY | | [facility] | | | | | AUTOMATED | | | | | | | COUNT | | | | | | + + + + + + + | PLATELET | 2022-08-23 | [facility] | 9.7 | fl | (missing) | | MEAN VOLUME | 16:29 | Health | | | | | (FL) IN | | System - | | | | | BLOOD BY | | [facility] | | | | | AUTOMATED | | | | | | | COUNT | | | | | | + + + + + + + | GLUCOSE, | 2022-08-23 | [facility] | 96 | mg/dl | (missing) | | RANDOM | 16:29 | Health | | | | | (MG/DL) IN | | System - | | | | | SER/PLAS | | [facility] | | | | + + + + + + + | GLUCOSE, | 2022-08-23 | [facility] | 96 | mg/dl | (missing) | | RANDOM | 16:29 | Health | | | | | (MG/DL) IN | | System - | | | | | SER/PLAS | | [facility] | | | | + + + + + + + | CLARITY OF | 2022-08-23 | [facility] | Hazy | (missing) | (missing) | | URINE | 16:29 | Health | | | | | | | System - | | | | | | | [facility] | | | | + + + + + + + | CLARITY OF | 2022-08-23 | [facility] | Heathery | (missing) | (missing) | | URINE | 16:29 | Health | | | | | | | System - | | | | | | | [facility] | | | | + + + + + + + | | 2022-08-23 | [facility] | Negative | (missing) | (missing) | | BARBITURATES | 16:29 | Health | | | | | PRESENCE IN | | System - | | | | | URINE BY | | [facility] | | | | | SCREEN | | | | | | | METHOD | | | | | | + + + + + + + | BILIRUBIN, | 2022-08-23 | [facility] | Negative | (missing) | (missing) | | TOTAL | 16:29 | Health | | | | | PRESENCE IN | | System - | | | | | URINE | | [facility] | | | | + + + + + + + | COCAINE | 2022-08-23 | [facility] | Negative | (missing) | (missing) | | (PRESENCE) | 16:29 | Health | | | | | IN URINE BY | | System - | | | | | SCREEN | | [facility] | | | | | METHOD | | | | | | + + + + + + + | GLUCOSE IN | 2022-08-23 | [facility] | Negative | (missing) | (missing) | | URINE | 16:29 | Health | | | | | | | System - | | | | | | | [facility] | | | | + + + + + + + | METHADONE | 2022-08-23 | [facility] | Negative | (missing) | (missing) | | (PRESENCE) | 16:29 | Health | | | | | IN URINE BY | | System - | | | | | SCREEN | | [facility] | | | | | METHOD | | | | | | + + + + + + + | | 2022-08-23 | [facility] | Negative | (missing) | (missing) | | METHAMPHETAM | 16:29 | Health | | | | | INE | | System - | | | | | (PRESENCE) | | [facility] | | | | | IN URINE BY | | | | | | | SCREEN | | | | | | | METHOD | | | | | | + + + + + + + | NITRITE | 2022-08-23 | [facility] | Negative | (missing) | (missing) | | PRESENCE IN | 16:29 | Health | | | | | URINE | | System - | | | | | | | [facility] | | | | + + + + + + + | OPIATES | 2022-08-23 | [facility] | Negative | (missing) | (missing) | | (PRESENCE) | 16:29 | Health | | | | | IN URINE BY | | System - | | | | | SCREEN | | [facility] | | | | | METHOD | | | | | | + + + + + + + | OXYCODONE | 2022-08-23 | [facility] | Negative | (missing) | (missing) | | (PRESENCE) | 16:29 | Health | | | | | IN URINE BY | | System - | | | | | SCREEN | | [facility] | | | | | METHOD | | | | | | + + + + + + + | | 2022-08-23 | [facility] | Negative | (missing) | (missing) | | PHENCYCLIDIN | 16:29 | Health | | | | | E (PRESENCE) | | System - | | | | | IN URINE BY | | [facility] | | | | | SCREEN | | | | | | | METHOD | | | | | | + + + + + + + | THC | 2022-08-23 | [facility] | Negative | (missing) | (missing) | | (CANNABINOID | 16:29 | Health | | | | | ) IN URINE | | System - | | | | | BY SCREEN | | [facility] | | | | | METHOD | | | | | | + + + + + + + | TRICYCLIC | 2022-08-23 | [facility] | Negative | (missing) | (missing) | | ANTIDEPRESSA | 16:29 | Health | | | | | NTS | | System - | | | | | (PRESENCE) | | [facility] | | | | | IN URINE | | | | | | + + + + + + + | | 2022-08-23 | [facility] | Negative | (missing) | (missing) | | PHENCYCLIDIN | 16:29 | Health | | | | | E (PRESENCE) | | System - | | | | | IN URINE BY | | [facility] | | | | | SCREEN | | | | | | | METHOD | | | | | | + + + + + + + | THC | 2022-08-23 | [facility] | Negative | (missing) | (missing) | | (CANNABINOID | 16:29 | Health | | | | | ) IN URINE | | System - | | | | | BY SCREEN | | [facility] | | | | | METHOD | | | | | | + + + + + + + | OPIATES | 2022-08-23 | [facility] | Negative | (missing) | (missing) | | (PRESENCE) | 16:29 | Health | | | | | IN URINE BY | | System - | | | | | SCREEN | | [facility] | | | | | METHOD | | | | | | + + + + + + + | TRICYCLIC | 2022-08-23 | [facility] | Negative | (missing) | (missing) | | ANTIDEPRESSA | 16:29 | Health | | | | | NTS | | System - | | | | | (PRESENCE) | | [facility] | | | | | IN URINE | | | | | | + + + + + + + | AMPHETAMINE | 2022-08-23 | [facility] | Negative | (missing) | (missing) | | (PRESENCE) | 16:29 | Health | | | | | IN URINE BY | | System - | | | | | SCREEN | | [facility] | | | | | METHOD | | | | | | + + + + + + + | | 2022-08-23 | [facility] | Negative | (missing) | (missing) | | METHAMPHETAM | 16:29 | Health | | | | | INE | | System - | | | | | (PRESENCE) | | [facility] | | | | | IN URINE BY | | | | | | | SCREEN | | | | | | | METHOD | | | | | | + + + + + + + | OXYCODONE | 2022-08-23 | [facility] | Negative | (missing) | (missing) | | (PRESENCE) | 16:29 | Health | | | | | IN URINE BY | | System - | | | | | SCREEN | | [facility] | | | | | METHOD | | | | | | + + + + + + + | BILIRUBIN, | 2022-08-23 | [facility] | Negative | (missing) | (missing) | | TOTAL | 16:29 | Health | | | | | PRESENCE IN | | System - | | | | | URINE | | [facility] | | | | + + + + + + + | BHCG QUAL | 2022-08-23 | [facility] | Negative | (missing) | (missing) | | (CHORIOGONAD | 16:29 | Health | | | | | OTROPIN) IN | | System - | | | | | SER/PLAS | | [facility] | | | | + + + + + + + | GLUCOSE IN | 2022-08-23 | [facility] | Negative | (missing) | (missing) | | URINE | 16:29 | Health | | | | | | | System - | | | | | | | [facility] | | | | + + + + + + + | COCAINE | 2022-08-23 | [facility] | Negative | (missing) | (missing) | | (PRESENCE) | 16:29 | Health | | | | | IN URINE BY | | System - | | | | | SCREEN | | [facility] | | | | | METHOD | | | | | | + + + + + + + | NITRITE | 2022-08-23 | [facility] | Negative | (missing) | (missing) | | PRESENCE IN | 16:29 | Health | | | | | URINE | | System - | | | | | | | [facility] | | | | + + + + + + + | | 2022-08-23 | [facility] | Negative | (missing) | (missing) | | BARBITURATES | 16:29 | Health | | | | | PRESENCE IN | | System - | | | | | URINE BY | | [facility] | | | | | SCREEN | | | | | | | METHOD | | | | | | + + + + + + + | METHADONE | 2022-08-23 | [facility] | Negative | (missing) | (missing) | | (PRESENCE) | 16:29 | Health | | | | | IN URINE BY | | System - | | | | | SCREEN | | [facility] | | | | | METHOD | | | | | | + + + + + + + | BHCG QUAL | 2022-08-23 | [facility] | Negative | (missing) | (missing) | | (CHORIOGONAD | 16:29 | Health | | | | | OTROPIN) IN | | System - | | | | | SER/PLAS | | [facility] | | | | + + + + + + + | AMPHETAMINE | 2022-08-23 | [facility] | Negative | (missing) | (missing) | | (PRESENCE) | 16:29 | Health | | | | | IN URINE BY | | System - | | | | | SCREEN | | [facility] | | | | | METHOD | | | | | | + + + + + + + | | 2022-08-23 | [facility] | Normal | mg/dl | (missing) | | UROBILINOGEN | 16:29 | Health | | | | | (MG/DL) IN | | System - | | | | | URINE BY | | [facility] | | | | | TEST STRIP | | | | | | + + + + + + + | | 2022-08-23 | [facility] | Normal | mg/dl | (missing) | | UROBILINOGEN | 16:29 | Health | | | | | (MG/DL) IN | | System - | | | | | URINE BY | | [facility] | | | | | TEST STRIP | | | | | | + + + + + + + | | 2022-08-23 | [facility] | Presumptive | (missing) | (missing) | | BENZODIAZEPI | 16:29 | Health | Positive | | | | SURYA | | System - | | | | | (PRESENCE) | | [facility] | | | | | IN URINE BY | | | | | | | SCREEN | | | | | | | METHOD | | | | | | + + + + + + + | | 2022-08-23 | [facility] | Presumptive | (missing) | (missing) | | BENZODIAZEPI | 16:29 | Health | Positive | | | | SURYA | | System - | | | | | (PRESENCE) | | [facility] | | | | | IN URINE BY | | | | | | | SCREEN | | | | | | | METHOD | | | | | | + + + + + + + | HEMOGLOBIN | 2022-08-23 | [facility] | Trace | (missing) | (missing) | | PRESENCE IN | 16:29 | Health | | | | | URINE | | System - | | | | | | | [facility] | | | | + + + + + + + | MUCUS | 2022-08-23 | [facility] | Trace | (missing) | (missing) | | (#/HPF) IN | 16:29 | Health | | | | | URINE | | System - | | | | | SEDIMENT | | [facility] | | | | + + + + + + + | MUCUS | 2022-08-23 | [facility] | Trace | (missing) | (missing) | | (#/HPF) IN | 16:29 | Health | | | | | URINE | | System - | | | | | SEDIMENT | | [facility] | | | | + + + + + + + | HEMOGLOBIN | 2022-08-23 | [facility] | Trace | (missing) | (missing) | | PRESENCE IN | 16:29 | Health | | | | | URINE | | System - | | | | | | | [facility] | | | | + + + + + + + | COLOR OF | 2022-08-23 | [facility] | Yellow | (missing) | (missing) | | URINE | 16:29 | Health | | | | | | | System - | | | | | | | [facility] | | | | + + + + + + + | COLOR OF | 2022-08-23 | [facility] | Yellow | (missing) | (missing) | | URINE | 16:29 | Health | | | | | | | System - | | | | | | | [facility] | | | | + + + + + + + + + | Result panel 76 | + + + + + + + + + | | 2022-08-23 | [facility] | (missing) | (missing) | (missing) | | (unavailable | 17:54 | Health | | | | | ) | | System - | | | | | | | [facility] | | | | + + + + + + + | | 2022-08-23 | [facility] | 1. No | (missing) | (missing) | | (unavailable | 17:54 | Health | radiographic | | | | ) | | System - | evidence of | | | | | | [facility] | acute | | | | | | | cardiopulmon | | | | | | | cezar disease. | | | | | | | | | | + + + + + + + | | 2022-08-23 | [facility] | BONES: No | (missing) | (missing) | | (unavailable | 17:54 | Health | acute | | | | ) | | System - | osseous | | | | | | [facility] | abnormality. | | | | | | | | | | + + + + + + + | | 2022-08-23 | [facility] | COMPARISON: | (missing) | (missing) | | (unavailable | 17:54 | Health | 01/15/2022 | | | | ) | | System - | | | | | | | [facility] | | | | + + + + + + + | | 2022-08-23 | [facility] | Electronical | (missing) | (missing) | | (unavailable | 17:54 | Health | ly signed | | | | ) | | System - | by: Bentley | | | | | | [facility] | MD Dean | | | | | | | on 08/23/2022 | | | | | | | 7:27 PM at | | | | | | | workstation | | | | | | | [phone] | | | + + + + + + + | | 2022-08-23 | [facility] | FINDINGS: | (missing) | (missing) | | (unavailable | 17:54 | Health | | | | | ) | | System - | | | | | | | [facility] | | | | + + + + + + + | | 2022-08-23 | [facility] | HEART: | (missing) | (missing) | | (unavailable | 17:54 | Health | Normal in | | | | ) | | System - | size and | | | | | | [facility] | appearance. | | | + + + + + + + | | 2022-08-23 | [facility] | INDICATION: | (missing) | (missing) | | (unavailable | 17:54 | Health | cough, rule | | | | ) | | System - | out | | | | | | [facility] | pneumnia | | | + + + + + + + | | 2022-08-23 | [facility] | LUNGS: No | (missing) | (missing) | | (unavailable | 17:54 | Health | focal | | | | ) | | System - | consolidatio | | | | | | [facility] | n. No | | | | | | | suspicious | | | | | | | lung | | | | | | | nodules. | | | + + + + + + + | | 2022-08-23 | [facility] | MEDIASTINUM: | (missing) | (missing) | | (unavailable | 17:54 | Health | Normal | | | | ) | | System - | mediastinal | | | | | | [facility] | contours | | | | | | | without | | | | | | | radiographic | | | | | | | evidence of | | | | | | | | | | | | | | lymphadenopa | | | | | | | thy. | | | + + + + + + + | | 2022-08-23 | [facility] | PLEURAL | (missing) | (missing) | | (unavailable | 17:54 | Health | SPACES: No | | | | ) | | System - | pleural | | | | | | [facility] | effusion or | | | | | | | pneumothorax | | | | | | | . | | | + + + + + + + | | 2022-08-23 | [facility] | PROCEDURE: | (missing) | (missing) | | (unavailable | 17:54 | Health | CHEST - ONE | | | | ) | | System - | VIEW | | | | | | [facility] | | | | + + + + + + + | | 2022-08-23 | [facility] | | (missing) | (missing) | | (unavailable | 17:54 | Health | Procedure(s) | | | | ) | | System - | : * No | | | | | | [facility] | procedures | | | | | | | listed * | | | + + + + + + + | | 2022-08-23 | [facility] | SUPPORT | (missing) | (missing) | | (unavailable | 17:54 | Health | DEVICES: | | | | ) | | System - | None. | | | | | | [facility] | | | | + + + + + + + + + | Result panel 77 | + + + + + + + + + | INFLUENZA A | 2022-08-24 | [facility] | Negative | (missing) | (missing) | | | 10:12 | Health | | | | | | | System - | | | | | | | [facility] | | | | + + + + + + + | INFLUENZA B | 2022-08-24 | [facility] | Negative | (missing) | (missing) | | | 10:12 | Health | | | | | | | System - | | | | | | | [facility] | | | | + + + + + + + | RSV | 2022-08-24 | [facility] | Negative | (missing) | (missing) | | | 10:12 | Health | | | | | | | System - | | | | | | | [facility] | | | | + + + + + + + | SARS-COV-2 | 2022-08-24 | [facility] | Negative | (missing) | (missing) | | (COVID19) | 10:12 | Health | | | | | CEPHEID PCR | | System - | | | | | | | [facility] | | | | + + + + + + + | INFLUENZA A | 2022-08-24 | [facility] | Negative | (missing) | (missing) | | | 10:12 | Health | | | | | | | System - | | | | | | | [facility] | | | | + + + + + + + | INFLUENZA B | 2022-08-24 | [facility] | Negative | (missing) | (missing) | | | 10:12 | Health | | | | | | | System - | | | | | | | [facility] | | | | + + + + + + + | RSV | 2022-08-24 | [facility] | Negative | (missing) | (missing) | | | 10:12 | Health | | | | | | | System - | | | | | | | [facility] | | | | + + + + + + + | SARS-COV-2 | 2022-08-24 | [facility] | Negative | (missing) | (missing) | | (COVID19) | 10:12 | Health | | | | | CEPHEID PCR | | System - | | | | | | | [facility] | | | | + + + + + + + + + | Result panel 78 | + + + + + + + + + | ALCOHOL | 2022-09-15 | [facility] | < | g/dl | (missing) | | (G/DL) IN | 21:19 | Health | | | | | SER/PLAS | | System - | | | | | | | [facility] | | | | + + + + + + + | ALCOHOL | 2022-09-15 | [facility] | < | g/dl | (missing) | | (G/DL) IN | 21:19 | Health | | | | | SER/PLAS | | System - | | | | | | | [facility] | | | | + + + + + + + | | 2022-09-15 | [facility] | < | mcg/ml | (missing) | | ACETAMINOPHE | 21:19 | Health | | | | | N (UG/ML) IN | | System - | | | | | SER/PLAS | | [facility] | | | | + + + + + + + | | 2022-09-15 | [facility] | < | mcg/ml | (missing) | | ACETAMINOPHE | 21:19 | Health | | | | | N (UG/ML) IN | | System - | | | | | SER/PLAS | | [facility] | | | | + + + + + + + | SALICYLATE | 2022-09-15 | [facility] | < | mg/dl | (missing) | | (MG/DL) IN | 21:19 | Health | | | | | SER/PLAS | | System - | | | | | | | [facility] | | | | + + + + + + + | SALICYLATE | 2022-09-15 | [facility] | < | mg/dl | (missing) | | (MG/DL) IN | 21:19 | Health | | | | | SER/PLAS | | System - | | | | | | | [facility] | | | | + + + + + + + | NRBC/100 | 2022-09-15 | [facility] | 0.0 | % | (missing) | | WBCS BY | 21:19 | Health | | | | | AUTOMATED | | System - | | | | | COUNT | | [facility] | | | | + + + + + + + | NRBC/100 | 2022-09-15 | [facility] | 0.0 | % | (missing) | | WBCS BY | 21:19 | Health | | | | | AUTOMATED | | System - | | | | | COUNT | | [facility] | | | | + + + + + + + | | 2022-09-15 | [facility] | 0.0 | k/mcl | (missing) | | NRBC(10*3/UL | 21:19 | Health | | | | | ) IN BLOOD | | System - | | | | | BY AUTOMATED | | [facility] | | | | | COUNT | | | | | | + + + + + + + | EOSINOPHILS | 2022-09-15 | [facility] | 0.0 | k/mcl | (missing) | | (10*3/UL) | 21:19 | Health | | | | | IN BLOOD BY | | System - | | | | | AUTOMATED | | [facility] | | | | | COUNT | | | | | | + + + + + + + | EOSINOPHILS | 2022-09-15 | [facility] | 0.0 | k/mcl | (missing) | | (10*3/UL) | 21:19 | Health | | | | | IN BLOOD BY | | System - | | | | | AUTOMATED | | [facility] | | | | | COUNT | | | | | | + + + + + + + | | 2022-09-15 | [facility] | 0.0 | k/mcl | (missing) | | NRBC(10*3/UL | 21:19 | Health | | | | | ) IN BLOOD | | System - | | | | | BY AUTOMATED | | [facility] | | | | | COUNT | | | | | | + + + + + + + | | 2022-09-15 | [facility] | 0.1 | % | (missing) | | EOSINOPHILS/ | 21:19 | Health | | | | | 100 | | System - | | | | | LEUKOCYTES | | [facility] | | | | | IN BLOOD BY | | | | | | | AUTOMATED | | | | | | | COUNT | | | | | | + + + + + + + | | 2022-09-15 | [facility] | 0.1 | % | (missing) | | EOSINOPHILS/ | 21:19 | Health | | | | | 100 | | System - | | | | | LEUKOCYTES | | [facility] | | | | | IN BLOOD BY | | | | | | | AUTOMATED | | | | | | | COUNT | | | | | | + + + + + + + | BASOPHILS | 2022-09-15 | [facility] | 0.1 | k/mcl | (missing) | | (10*3/UL) IN | 21:19 | Health | | | | | BLOOD BY | | System - | | | | | AUTOMATED | | [facility] | | | | | COUNT | | | | | | + + + + + + + | BASOPHILS | 2022-09-15 | [facility] | 0.1 | k/mcl | (missing) | | (10*3/UL) IN | 21:19 | Health | | | | | BLOOD BY | | System - | | | | | AUTOMATED | | [facility] | | | | | COUNT | | | | | | + + + + + + + | IMMATURE | 2022-09-15 | [facility] | 0.15 | k/mcl | (missing) | | GRANULOCYTE | 21:19 | Health | | | | | (ABS) | | System - | | | | | | | [facility] | | | | + + + + + + + | IMMATURE | 2022-09-15 | [facility] | 0.15 | k/mcl | (missing) | | GRANULOCYTE | 21:19 | Health | | | | | (ABS) | | System - | | | | | | | [facility] | | | | + + + + + + + | BILIRUBIN | 2022-09-15 | [facility] | 0.4 | mg/dl | (missing) | | TOTAL | 21:19 | Health | | | | | (MG/DL) IN | | System - | | | | | SER/PLAS | | [facility] | | | | + + + + + + + | BILIRUBIN | 2022-09-15 | [facility] | 0.4 | mg/dl | (missing) | | TOTAL | 21:19 | Health | | | | | (MG/DL) IN | | System - | | | | | SER/PLAS | | [facility] | | | | + + + + + + + | | 2022-09-15 | [facility] | 0.5 | % | (missing) | | BASOPHILS/10 | 21:19 | Health | | | | | 0 LEUKOCYTES | | System - | | | | | IN BLOOD BY | | [facility] | | | | | AUTOMATED | | | | | | | COUNT | | | | | | + + + + + + + | | 2022-09-15 | [facility] | 0.5 | % | (missing) | | BASOPHILS/10 | 21:19 | Health | | | | | 0 LEUKOCYTES | | System - | | | | | IN BLOOD BY | | [facility] | | | | | AUTOMATED | | | | | | | COUNT | | | | | | + + + + + + + | IMMATURE | 2022-09-15 | [facility] | 0.9 | % | (missing) | | GRANULOCYTE | 21:19 | Health | | | | | % (AUTO) | | System - | | | | | | | [facility] | | | | + + + + + + + | IMMATURE | 2022-09-15 | [facility] | 0.9 | % | (missing) | | GRANULOCYTE | 21:19 | Health | | | | | % (AUTO) | | System - | | | | | | | [facility] | | | | + + + + + + + | MONOCYTES | 2022-09-15 | [facility] | 1.1 | k/mcl | (missing) | | (10*3/UL) IN | 21:19 | Health | | | | | BLOOD BY | | System - | | | | | AUTOMATED | | [facility] | | | | | COUNT | | | | | | + + + + + + + | MONOCYTES | 2022-09-15 | [facility] | 1.1 | k/mcl | (missing) | | (10*3/UL) IN | 21:19 | Health | | | | | BLOOD BY | | System - | | | | | AUTOMATED | | [facility] | | | | | COUNT | | | | | | + + + + + + + | CREATININE | 2022-09-15 | [facility] | 1.2 | mg/dl | (missing) | | (MG/DL) IN | 21:19 | Health | | | | | SER/PLAS | | System - | | | | | | | [facility] | | | | + + + + + + + | CREATININE | 2022-09-15 | [facility] | 1.2 | mg/dl | (missing) | | (MG/DL) IN | 21:19 | Health | | | | | SER/PLAS | | System - | | | | | | | [facility] | | | | + + + + + + + | BLOOD UREA | 2022-09-15 | [facility] | 10 | mg/dl | (missing) | | NITROGEN | 21:19 | Health | | | | | (BUN) | | System - | | | | | (MG/DL) IN | | [facility] | | | | | SER/PLAS | | | | | | + + + + + + + | BLOOD UREA | 2022-09-15 | [facility] | 10 | mg/dl | (missing) | | NITROGEN | 21:19 | Health | | | | | (BUN) | | System - | | | | | (MG/DL) IN | | [facility] | | | | | SER/PLAS | | | | | | + + + + + + + | NEUTROPHILS | 2022-09-15 | [facility] | 10.3 | k/mcl | (missing) | | (10*3/UL) | 21:19 | Health | | | | | IN BLOOD BY | | System - | | | | | AUTOMATED | | [facility] | | | | | COUNT | | | | | | + + + + + + + | NEUTROPHILS | 2022-09-15 | [facility] | 10.3 | k/mcl | (missing) | | (10*3/UL) | 21:19 | Health | | | | | IN BLOOD BY | | System - | | | | | AUTOMATED | | [facility] | | | | | COUNT | | | | | | + + + + + + + | CHLORIDE | 2022-09-15 | [facility] | 104 | mmol/l | (missing) | | (MMOL/L) IN | 21:19 | Health | | | | | SER/PLAS | | System - | | | | | | | [facility] | | | | + + + + + + + | CHLORIDE | 2022-09-15 | [facility] | 104 | mmol/l | (missing) | | (MMOL/L) IN | 21:19 | Health | | | | | SER/PLAS | | System - | | | | | | | [facility] | | | | + + + + + + + | ALKALINE | 2022-09-15 | [facility] | 105 | u/l | (missing) | | PHOSPHATASE | 21:19 | Health | | | | | (U/L) IN | | System - | | | | | SER/PLAS | | [facility] | | | | + + + + + + + | ALKALINE | 2022-09-15 | [facility] | 105 | u/l | (missing) | | PHOSPHATASE | 21:19 | Health | | | | | (U/L) IN | | System - | | | | | SER/PLAS | | [facility] | | | | + + + + + + + | ERYTHROCYTE | 2022-09-15 | [facility] | 13.0 | % | (missing) | | | 21:19 | Health | | | | | DISTRIBUTION | | System - | | | | | WIDTH | | [facility] | | | | | (RATIO) BY | | | | | | | AUTOMATED | | | | | | | COUNT | | | | | | + + + + + + + | ERYTHROCYTE | 2022-09-15 | [facility] | 13.0 | % | (missing) | | | 21:19 | Health | | | | | DISTRIBUTION | | System - | | | | | WIDTH | | [facility] | | | | | (RATIO) BY | | | | | | | AUTOMATED | | | | | | | COUNT | | | | | | + + + + + + + | SODIUM | 2022-09-15 | [facility] | 143 | mmol/l | (missing) | | (MMOL/L) IN | 21:19 | Health | | | | | SER/PLAS | | System - | | | | | | | [facility] | | | | + + + + + + + | SODIUM | 2022-09-15 | [facility] | 143 | mmol/l | (missing) | | (MMOL/L) IN | 21:19 | Health | | | | | SER/PLAS | | System - | | | | | | | [facility] | | | | + + + + + + + | GLUCOSE, | 2022-09-15 | [facility] | 147 | mg/dl | (missing) | | RANDOM | 21:19 | Health | | | | | (MG/DL) IN | | System - | | | | | SER/PLAS | | [facility] | | | | + + + + + + + | GLUCOSE, | 2022-09-15 | [facility] | 147 | mg/dl | (missing) | | RANDOM | 21:19 | Health | | | | | (MG/DL) IN | | System - | | | | | SER/PLAS | | [facility] | | | | + + + + + + + | HEMOGLOBIN | 2022-09-15 | [facility] | 15.2 | g/dl | (missing) | | (G/DL) IN | 21:19 | Health | | | | | BLOOD | | System - | | | | | | | [facility] | | | | + + + + + + + | HEMOGLOBIN | 2022-09-15 | [facility] | 15.2 | g/dl | (missing) | | (G/DL) IN | 21:19 | Health | | | | | BLOOD | | System - | | | | | | | [facility] | | | | + + + + + + + | | 2022-09-15 | [facility] | 15.9 | k/mcl | (missing) | | LEUKOCYTES(1 | 21:19 | Health | | | | | 0*3/UL) IN | | System - | | | | | BLOOD BY | | [facility] | | | | | AUTOMATED | | | | | | | COUNT | | | | | | + + + + + + + | | 2022-09-15 | [facility] | 15.9 | k/mcl | (missing) | | LEUKOCYTES(1 | 21:19 | Health | | | | | 0*3/UL) IN | | System - | | | | | BLOOD BY | | [facility] | | | | | AUTOMATED | | | | | | | COUNT | | | | | | + + + + + + + | TSH | 2022-09-15 | [facility] | 17.90 | mciu/ml | (missing) | | (THYROTROPIN | 21:19 | Health | | | | | ) (UIU/ML) | | System - | | | | | IN SER/PLAS | | [facility] | | | | + + + + + + + | TSH | 2022-09-15 | [facility] | 17.90 | mciu/ml | (missing) | | (THYROTROPIN | 21:19 | Health | | | | | ) (UIU/ML) | | System - | | | | | IN SER/PLAS | | [facility] | | | | + + + + + + + | ANION GAP | 2022-09-15 | [facility] | 19.0 | mmol/l | (missing) | | IN SER/PLAS | 21:19 | Health | | | | | | | System - | | | | | | | [facility] | | | | + + + + + + + | ANION GAP | 2022-09-15 | [facility] | 19.0 | mmol/l | (missing) | | IN SER/PLAS | 21:19 | Health | | | | | | | System - | | | | | | | [facility] | | | | + + + + + + + | CARBON | 2022-09-15 | [facility] | 20 | mmol/l | (missing) | | DIOXIDE | 21:19 | Health | | | | | (CO2), TOTAL | | System - | | | | | (MMOL/L) IN | | [facility] | | | | | SER/PLAS | | | | | | + + + + + + + | CARBON | 2022-09-15 | [facility] | 20 | mmol/l | (missing) | | DIOXIDE | 21:19 | Health | | | | | (CO2), TOTAL | | System - | | | | | (MMOL/L) IN | | [facility] | | | | | SER/PLAS | | | | | | + + + + + + + | | 2022-09-15 | [facility] | 26.6 | % | (missing) | | LYMPHOCYTES/ | 21:19 | Health | | | | | 100 | | System - | | | | | LEUKOCYTES | | [facility] | | | | | IN BLOOD BY | | | | | | | AUTOMATED | | | | | | | COUNT | | | | | | + + + + + + + | | 2022-09-15 | [facility] | 26.6 | % | (missing) | | LYMPHOCYTES/ | 21:19 | Health | | | | | 100 | | System - | | | | | LEUKOCYTES | | [facility] | | | | | IN BLOOD BY | | | | | | | AUTOMATED | | | | | | | COUNT | | | | | | + + + + + + + | ASPARTATE | 2022-09-15 | [facility] | 29 | u/l | (missing) | | AMINOTRANSFE | 21:19 | Health | | | | | RASE (SGOT) | | System - | | | | | (U/L) IN | | [facility] | | | | | SER/PLAS | | | | | | + + + + + + + | ASPARTATE | 2022-09-15 | [facility] | 29 | u/l | (missing) | | AMINOTRANSFE | 21:19 | Health | | | | | RASE (SGOT) | | System - | | | | | (U/L) IN | | [facility] | | | | | SER/PLAS | | | | | | + + + + + + + | POTASSIUM | 2022-09-15 | [facility] | 3.1 | mmol/l | (missing) | | (MMOL/L) IN | 21:19 | Health | | | | | SER/PLAS | | System - | | | | | | | [facility] | | | | + + + + + + + | POTASSIUM | 2022-09-15 | [facility] | 3.1 | mmol/l | (missing) | | (MMOL/L) IN | 21:19 | Health | | | | | SER/PLAS | | System - | | | | | | | [facility] | | | | + + + + + + + | ERYTHROCYTE | 2022-09-15 | [facility] | 30.0 | pg | (missing) | | MEAN | 21:19 | Health | | | | | CORPUSCULAR | | System - | | | | | HEMOGLOBIN | | [facility] | | | | | (PG) BY | | | | | | | AUTOMATED | | | | | | | COUNT | | | | | | + + + + + + + | ERYTHROCYTE | 2022-09-15 | [facility] | 30.0 | pg | (missing) | | MEAN | 21:19 | Health | | | | | CORPUSCULAR | | System - | | | | | HEMOGLOBIN | | [facility] | | | | | (PG) BY | | | | | | | AUTOMATED | | | | | | | COUNT | | | | | | + + + + + + + | ERYTHROCYTE | 2022-09-15 | [facility] | 33.1 | g/dl | (missing) | | MEAN | 21:19 | Health | | | | | CORPUSCULAR | | System - | | | | | HEMOGLOBIN | | [facility] | | | | | CONCENTRATIO | | | | | | | N (G/DL) BY | | | | | | | AUTOMATED | | | | | | + + + + + + + | ERYTHROCYTE | 2022-09-15 | [facility] | 33.1 | g/dl | (missing) | | MEAN | 21:19 | Health | | | | | CORPUSCULAR | | System - | | | | | HEMOGLOBIN | | [facility] | | | | | CONCENTRATIO | | | | | | | N (G/DL) BY | | | | | | | AUTOMATED | | | | | | + + + + + + + | LYMPHOCYTES | 2022-09-15 | [facility] | 4.2 | k/mcl | (missing) | | (10*3/UL) | 21:19 | Health | | | | | IN BLOOD BY | | System - | | | | | AUTOMATED | | [facility] | | | | | COUNT | | | | | | + + + + + + + | LYMPHOCYTES | 2022-09-15 | [facility] | 4.2 | k/mcl | (missing) | | (10*3/UL) | 21:19 | Health | | | | | IN BLOOD BY | | System - | | | | | AUTOMATED | | [facility] | | | | | COUNT | | | | | | + + + + + + + | ALBUMIN | 2022-09-15 | [facility] | 4.5 | g/dl | (missing) | | (G/DL) IN | 21:19 | Health | | | | | SER/PLAS | | System - | | | | | | | [facility] | | | | + + + + + + + | ALBUMIN | 2022-09-15 | [facility] | 4.5 | g/dl | (missing) | | (G/DL) IN | 21:19 | Health | | | | | SER/PLAS | | System - | | | | | | | [facility] | | | | + + + + + + + | PLATELETS | 2022-09-15 | [facility] | 417 | k/mcl | (missing) | | (10*3/UL) IN | 21:19 | Health | | | | | BLOOD | | System - | | | | | AUTOMATED | | [facility] | | | | | COUNT | | | | | | + + + + + + + | PLATELETS | 2022-09-15 | [facility] | 417 | k/mcl | (missing) | | (10*3/UL) IN | 21:19 | Health | | | | | BLOOD | | System - | | | | | AUTOMATED | | [facility] | | | | | COUNT | | | | | | + + + + + + + | HEMATOCRIT | 2022-09-15 | [facility] | 45.9 | % | (missing) | | (%) IN BLOOD | 21:19 | Health | | | | | BY | | System - | | | | | AUTOMATED | | [facility] | | | | | COUNT | | | | | | + + + + + + + | HEMATOCRIT | 2022-09-15 | [facility] | 45.9 | % | (missing) | | (%) IN BLOOD | 21:19 | Health | | | | | BY | | System - | | | | | AUTOMATED | | [facility] | | | | | COUNT | | | | | | + + + + + + + | ALANINE | 2022-09-15 | [facility] | 48 | u/l | (missing) | | AMINOTRANSFE | 21:19 | Health | | | | | RASE (SGPT) | | System - | | | | | (U/L) IN | | [facility] | | | | | SER/PLAS | | | | | | + + + + + + + | ALANINE | 2022-09-15 | [facility] | 48 | u/l | (missing) | | AMINOTRANSFE | 21:19 | Health | | | | | RASE (SGPT) | | System - | | | | | (U/L) IN | | [facility] | | | | | SER/PLAS | | | | | | + + + + + + + | | 2022-09-15 | [facility] | 5.06 | m/mcl | (missing) | | ERYTHROCYTES | 21:19 | Health | | | | | (10*6/UL) | | System - | | | | | IN BLOOD BY | | [facility] | | | | | AUTOMATED | | | | | | | COUNT | | | | | | + + + + + + + | | 2022-09-15 | [facility] | 5.06 | m/mcl | (missing) | | ERYTHROCYTES | 21:19 | Health | | | | | (10*6/UL) | | System - | | | | | IN BLOOD BY | | [facility] | | | | | AUTOMATED | | | | | | | COUNT | | | | | | + + + + + + + | EGFR | 2022-09-15 | [facility] | 59 | | (missing) | | (GLOMERULAR | 21:19 | Health | | ml/min/1.73m | | | FILTRATION | | System - | | ? | | | RATE) | | [facility] | | | | | ML/MIN/1.73 | | | | | | | SQ M. | | | | | | + + + + + + + | EGFR | 2022-09-15 | [facility] | 59 | | (missing) | | (GLOMERULAR | 21:19 | Health | | ml/min/1.73m | | | FILTRATION | | System - | | ? | | | RATE) | | [facility] | | | | | ML/MIN/1.73 | | | | | | | SQ M. | | | | | | + + + + + + + | | 2022-09-15 | [facility] | 6.9 | % | (missing) | | MONOCYTES/10 | 21:19 | Health | | | | | 0 LEUKOCYTES | | System - | | | | | IN BLOOD BY | | [facility] | | | | | AUTOMATED | | | | | | | COUNT | | | | | | + + + + + + + | | 2022-09-15 | [facility] | 6.9 | % | (missing) | | MONOCYTES/10 | 21:19 | Health | | | | | 0 LEUKOCYTES | | System - | | | | | IN BLOOD BY | | [facility] | | | | | AUTOMATED | | | | | | | COUNT | | | | | | + + + + + + + | | 2022-09-15 | [facility] | 65.0 | % | (missing) | | NEUTROPHILS/ | 21:19 | Health | | | | | 100 | | System - | | | | | LEUKOCYTES | | [facility] | | | | | IN BLOOD BY | | | | | | | AUTOMATED | | | | | | | COUNT | | | | | | + + + + + + + | | 2022-09-15 | [facility] | 65.0 | % | (missing) | | NEUTROPHILS/ | 21:19 | Health | | | | | 100 | | System - | | | | | LEUKOCYTES | | [facility] | | | | | IN BLOOD BY | | | | | | | AUTOMATED | | | | | | | COUNT | | | | | | + + + + + + + | PROTEIN | 2022-09-15 | [facility] | 7.8 | g/dl | (missing) | | (G/DL) IN | 21:19 | Health | | | | | SER/PLAS | | System - | | | | | | | [facility] | | | | + + + + + + + | PROTEIN | 2022-09-15 | [facility] | 7.8 | g/dl | (missing) | | (G/DL) IN | 21:19 | Health | | | | | SER/PLAS | | System - | | | | | | | [facility] | | | | + + + + + + + | CALCIUM | 2022-09-15 | [facility] | 9.0 | mg/dl | (missing) | | (MG/DL) IN | 21:19 | Health | | | | | SER/PLAS | | System - | | | | | | | [facility] | | | | + + + + + + + | CALCIUM | 2022-09-15 | [facility] | 9.0 | mg/dl | (missing) | | (MG/DL) IN | 21:19 | Health | | | | | SER/PLAS | | System - | | | | | | | [facility] | | | | + + + + + + + | PLATELET | 2022-09-15 | [facility] | 9.5 | fl | (missing) | | MEAN VOLUME | 21:19 | Health | | | | | (FL) IN | | System - | | | | | BLOOD BY | | [facility] | | | | | AUTOMATED | | | | | | | COUNT | | | | | | + + + + + + + | PLATELET | 2022-09-15 | [facility] | 9.5 | fl | (missing) | | MEAN VOLUME | 21:19 | Health | | | | | (FL) IN | | System - | | | | | BLOOD BY | | [facility] | | | | | AUTOMATED | | | | | | | COUNT | | | | | | + + + + + + + | ERYTHROCYTE | 2022-09-15 | [facility] | 90.7 | fl | (missing) | | MEAN | 21:19 | Health | | | | | CORPUSCULAR | | System - | | | | | VOLUME (FL) | | [facility] | | | | | BY AUTOMATED | | | | | | | COUNT | | | | | | + + + + + + + | ERYTHROCYTE | 2022-09-15 | [facility] | 90.7 | fl | (missing) | | MEAN | 21:19 | Health | | | | | CORPUSCULAR | | System - | | | | | VOLUME (FL) | | [facility] | | | | | BY AUTOMATED | | | | | | | COUNT | | | | | | + + + + + + + | INFLUENZA A | 2022-09-15 | [facility] | Negative | (missing) | (missing) | | | 21:19 | Health | | | | | | | System - | | | | | | | [facility] | | | | + + + + + + + | INFLUENZA B | 2022-09-15 | [facility] | Negative | (missing) | (missing) | | | 21:19 | Health | | | | | | | System - | | | | | | | [facility] | | | | + + + + + + + | RSV | 2022-09-15 | [facility] | Negative | (missing) | (missing) | | | 21:19 | Health | | | | | | | System - | | | | | | | [facility] | | | | + + + + + + + | SARS-COV-2 | 2022-09-15 | [facility] | Negative | (missing) | (missing) | | (COVID19) | 21:19 | Health | | | | | CEPHEID PCR | | System - | | | | | | | [facility] | | | | + + + + + + + | BHCG QUAL | 2022-09-15 | [facility] | Negative | (missing) | (missing) | | (CHORIOGONAD | 21:19 | Health | | | | | OTROPIN) IN | | System - | | | | | SER/PLAS | | [facility] | | | | + + + + + + + | INFLUENZA A | 2022-09-15 | [facility] | Negative | (missing) | (missing) | | | 21:19 | Health | | | | | | | System - | | | | | | | [facility] | | | | + + + + + + + | INFLUENZA B | 2022-09-15 | [facility] | Negative | (missing) | (missing) | | | 21:19 | Health | | | | | | | System - | | | | | | | [facility] | | | | + + + + + + + | RSV | 2022-09-15 | [facility] | Negative | (missing) | (missing) | | | 21:19 | Health | | | | | | | System - | | | | | | | [facility] | | | | + + + + + + + | SARS-COV-2 | 2022-09-15 | [facility] | Negative | (missing) | (missing) | | (COVID19) | 21:19 | Health | | | | | CEPHEID PCR | | System - | | | | | | | [facility] | | | | + + + + + + + | BHCG QUAL | 2022-09-15 | [facility] | Negative | (missing) | (missing) | | (CHORIOGONAD | 21:19 | Health | | | | | OTROPIN) IN | | System - | | | | | SER/PLAS | | [facility] | | | | + + + + + + + + + | Result panel 79 | + + + + + + + + + | | 2022-09-15 | [facility] | (missing) | (missing) | (missing) | | (unavailable | 21:53 | Health | | | | | ) | | System - | | | | | | | [facility] | | | | + + + + + + + | | 2022-09-15 | [facility] | BONES: | (missing) | (missing) | | (unavailable | 21:53 | Health | Normal. | | | | ) | | System - | | | | | | | [facility] | | | | + + + + + + + | | 2022-09-15 | [facility] | COMPARISON: | (missing) | (missing) | | (unavailable | 21:53 | Health | 08/23/2022 | | | | ) | | System - | | | | | | | [facility] | | | | + + + + + + + | | 2022-09-15 | [facility] | Electronical | (missing) | (missing) | | (unavailable | 21:53 | Health | ly signed | | | | ) | | System - | by: Nithin | | | | | | [facility] | MD Suhas | | | | | | | on 09/15/2022 | | | | | | | 10:37 PM at | | | | | | | workstation | | | | | | | [id number] | | | | | | | 3 | | | + + + + + + + | | 2022-09-15 | [facility] | FINDINGS: | (missing) | (missing) | | (unavailable | 21:53 | Health | | | | | ) | | System - | | | | | | | [facility] | | | | + + + + + + + | | 2022-09-15 | [facility] | HEART: | (missing) | (missing) | | (unavailable | 21:53 | Health | Normal in | | | | ) | | System - | size and | | | | | | [facility] | appearance. | | | + + + + + + + | | 2022-09-15 | [facility] | | (missing) | (missing) | | (unavailable | 21:53 | Health | INDICATIONS: | | | | ) | | System - | dyspnea | | | | | | [facility] | | | | + + + + + + + | | 2022-09-15 | [facility] | LUNGS: | (missing) | (missing) | | (unavailable | 21:53 | Health | Clear. No | | | | ) | | System - | focal | | | | | | [facility] | consolidatio | | | | | | | n. No | | | | | | | suspicious | | | | | | | lung | | | | | | | nodules. 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 | | | + + + + + + + | | 2022-09-15 | [facility] | No | (missing) | (missing) | | (unavailable | 21:53 | Health | radiographic | | | | ) | | System - | evidence of | | | | | | [facility] | acute | | | | | | | cardiopulmon | | | | | | | cezar disease. | | | | | | | | | | + + + + + + + | | 2022-09-15 | [facility] | PLEURAL | (missing) | (missing) | | (unavailable | 21:53 | Health | SPACES: No | | | | ) | | System - | pleural | | | | | | [facility] | effusion or | | | | | | | pneumothorax | | | | | | | . | | | + + + + + + + | | 2022-09-15 | [facility] | PROCEDURE: | (missing) | (missing) | | (unavailable | 21:53 | Health | CHEST - ONE | | | | ) | | System - | VIEW | | | | | | [facility] | | | | + + + + + + + | | 2022-09-15 | [facility] | | (missing) | (missing) | | (unavailable | 21:53 | Health | Procedure(s) | | | | ) | | System - | : * No | | | | | | [facility] | procedures | | | | | | | listed * | | | + + + + + + + + + | Result panel 80 | + + + + + +---------+ + + | T4 FREE | 2022-09-15 | [facility] | 1.09 | ng/dl | (missing) | | (THYROXINE | 22:30 | Health | | | | | FREE) | | System - | | | | | (NG/DL) IN | | [facility] | | | | | SER/PLAS | | | | | | + + + +---------+ + + | T4 FREE | 2022-09-15 | [facility] | 1.09 | ng/dl | (missing) | | (THYROXINE | 22:30 | Health | | | | | FREE) | | System - | | | | | (NG/DL) IN | | [facility] | | | | | SER/PLAS | | | | | | + + + +---------+ + + | TSH | 2022-09-15 | [facility] | 17.90 | mciu/ml | (missing) | | (THYROTROPIN | 22:30 | Health | | | | | ) (UIU/ML) | | System - | | | | | IN SER/PLAS | | [facility] | | | | + + + +---------+ + + + + | Result panel 81 | + + + + + + + + + | EGFR | 2022-09-22 | [facility] | > | | (missing) | | (GLOMERULAR | 22:26 | Health | | ml/min/1.73m | | | FILTRATION | | System - | | ? | | | RATE) | | [facility] | | | | | ML/MIN/1.73 | | | | | | | SQ M. | | | | | | + + + + + + + | EGFR | 2022-09-22 | [facility] | > | | (missing) | | (GLOMERULAR | 22:26 | Health | | ml/min/1.73m | | | FILTRATION | | System - | | ? | | | RATE) | | [facility] | | | | | ML/MIN/1.73 | | | | | | | SQ M. | | | | | | + + + + + + + | ALCOHOL | 2022-09-22 | [facility] | < | g/dl | (missing) | | (G/DL) IN | 22:26 | Health | | | | | SER/PLAS | | System - | | | | | | | [facility] | | | | + + + + + + + | ALCOHOL | 2022-09-22 | [facility] | < | g/dl | (missing) | | (G/DL) IN | 22:26 | Health | | | | | SER/PLAS | | System - | | | | | | | [facility] | | | | + + + + + + + | | 2022-09-22 | [facility] | < | mcg/ml | (missing) | | ACETAMINOPHE | 22:26 | Health | | | | | N (UG/ML) IN | | System - | | | | | SER/PLAS | | [facility] | | | | + + + + + + + | | 2022-09-22 | [facility] | < | mcg/ml | (missing) | | ACETAMINOPHE | : | Health | | | | | N (UG/ML) IN | | System - | | | | | SER/PLAS | | [facility] | | | | + + + + + + + | SALICYLATE | 2022-09-22 | [facility] | < | mg/dl | (missing) | | (MG/DL) IN | : | Health | | | | | SER/PLAS | | System - | | | | | | | [facility] | | | | + + + + + + + | SALICYLATE | 2022-09-22 | [facility] | < | mg/dl | (missing) | | (MG/DL) IN | : | Health | | | | | SER/PLAS | | System - | | | | | | | [facility] | | | | + + + + + + + | NRBC/100 | 2022-09-22 | [facility] | 0.0 | % | (missing) | | WBCS BY | 22:26 | Health | | | | | AUTOMATED | | System - | | | | | COUNT | | [facility] | | | | + + + + + + + | NRBC/100 | 2022-09-22 | [facility] | 0.0 | % | (missing) | | WBCS BY | 22:26 | Health | | | | | AUTOMATED | | System - | | | | | COUNT | | [facility] | | | | + + + + + + + | | 2022-09-22 | [facility] | 0.0 | k/mcl | (missing) | | NRBC(10*3/UL | 22:26 | Health | | | | | ) IN BLOOD | | System - | | | | | BY AUTOMATED | | [facility] | | | | | COUNT | | | | | | + + + + + + + | EOSINOPHILS | 2022-09-22 | [facility] | 0.0 | k/mcl | (missing) | | (10*3/UL) | 22:26 | Health | | | | | IN BLOOD BY | | System - | | | | | AUTOMATED | | [facility] | | | | | COUNT | | | | | | + + + + + + + | EOSINOPHILS | 2022-09-22 | [facility] | 0.0 | k/mcl | (missing) | | (10*3/UL) | 22:26 | Health | | | | | IN BLOOD BY | | System - | | | | | AUTOMATED | | [facility] | | | | | COUNT | | | | | | + + + + + + + | | 2022-09-22 | [facility] | 0.0 | k/mcl | (missing) | | NRBC(10*3/UL | 22:26 | Health | | | | | ) IN BLOOD | | System - | | | | | BY AUTOMATED | | [facility] | | | | | COUNT | | | | | | + + + + + + + | | 2022-09-22 | [facility] | 0.1 | % | (missing) | | EOSINOPHILS/ | 22:26 | Health | | | | | 100 | | System - | | | | | LEUKOCYTES | | [facility] | | | | | IN BLOOD BY | | | | | | | AUTOMATED | | | | | | | COUNT | | | | | | + + + + + + + | | 2022-09-22 | [facility] | 0.1 | % | (missing) | | EOSINOPHILS/ | 22:26 | Health | | | | | 100 | | System - | | | | | LEUKOCYTES | | [facility] | | | | | IN BLOOD BY | | | | | | | AUTOMATED | | | | | | | COUNT | | | | | | + + + + + + + | BASOPHILS | 2022-09-22 | [facility] | 0.1 | k/mcl | (missing) | | (10*3/UL) IN | 22:26 | Health | | | | | BLOOD BY | | System - | | | | | AUTOMATED | | [facility] | | | | | COUNT | | | | | | + + + + + + + | BASOPHILS | 2022-09-22 | [facility] | 0.1 | k/mcl | (missing) | | (10*3/UL) IN | 22:26 | Health | | | | | BLOOD BY | | System - | | | | | AUTOMATED | | [facility] | | | | | COUNT | | | | | | + + + + + + + | IMMATURE | 2022-09-22 | [facility] | 0.11 | k/mcl | (missing) | | GRANULOCYTE | : | Health | | | | | (ABS) | | System - | | | | | | | [facility] | | | | + + + + + + + | IMMATURE | 2022-09-22 | [facility] | 0.11 | k/mcl | (missing) | | GRANULOCYTE | 22:26 | Health | | | | | (ABS) | | System - | | | | | | | [facility] | | | | + + + + + + + | BILIRUBIN | 2022-09-22 | [facility] | 0.2 | mg/dl | (missing) | | TOTAL | 22:26 | Health | | | | | (MG/DL) IN | | System - | | | | | SER/PLAS | | [facility] | | | | + + + + + + + | BILIRUBIN | 2022-09-22 | [facility] | 0.2 | mg/dl | (missing) | | TOTAL | 22:26 | Health | | | | | (MG/DL) IN | | System - | | | | | SER/PLAS | | [facility] | | | | + + + + + + + | | 2022-09-22 | [facility] | 0.4 | % | (missing) | | BASOPHILS/10 | 22:26 | Health | | | | | 0 LEUKOCYTES | | System - | | | | | IN BLOOD BY | | [facility] | | | | | AUTOMATED | | | | | | | COUNT | | | | | | + + + + + + + | | 2022-09-22 | [facility] | 0.4 | % | (missing) | | BASOPHILS/10 | 22:26 | Health | | | | | 0 LEUKOCYTES | | System - | | | | | IN BLOOD BY | | [facility] | | | | | AUTOMATED | | | | | | | COUNT | | | | | | + + + + + + + | IMMATURE | 2022-09-22 | [facility] | 0.7 | % | (missing) | | GRANULOCYTE | 22:26 | Health | | | | | % (AUTO) | | System - | | | | | | | [facility] | | | | + + + + + + + | IMMATURE | 2022-09-22 | [facility] | 0.7 | % | (missing) | | GRANULOCYTE | 22:26 | Health | | | | | % (AUTO) | | System - | | | | | | | [facility] | | | | + + + + + + + | CREATININE | 2022-09-22 | [facility] | 0.9 | mg/dl | (missing) | | (MG/DL) IN | 22:26 | Health | | | | | SER/PLAS | | System - | | | | | | | [facility] | | | | + + + + + + + | CREATININE | 2022-09-22 | [facility] | 0.9 | mg/dl | (missing) | | (MG/DL) IN | : | Health | | | | | SER/PLAS | | System - | | | | | | | [facility] | | | | + + + + + + + | MONOCYTES | 2022-09-22 | [facility] | 1.0 | k/mcl | (missing) | | (10*3/UL) IN | | Health | | | | | BLOOD BY | | System - | | | | | AUTOMATED | | [facility] | | | | | COUNT | | | | | | + + + + + + + | MONOCYTES | 2022-09-22 | [facility] | 1.0 | k/mcl | (missing) | | (10*3/UL) IN | | Health | | | | | BLOOD BY | | System - | | | | | AUTOMATED | | [facility] | | | | | COUNT | | | | | | + + + + + + + | NEUTROPHILS | 2022-09-22 | [facility] | 10.4 | k/mcl | (missing) | | (10*3/UL) | 22:26 | Health | | | | | IN BLOOD BY | | System - | | | | | AUTOMATED | | [facility] | | | | | COUNT | | | | | | + + + + + + + | NEUTROPHILS | 2022-09-22 | [facility] | 10.4 | k/mcl | (missing) | | (10*3/UL) | 22:26 | Health | | | | | IN BLOOD BY | | System - | | | | | AUTOMATED | | [facility] | | | | | COUNT | | | | | | + + + + + + + | CHLORIDE | 2022-09-22 | [facility] | 104 | mmol/l | (missing) | | (MMOL/L) IN | 22:26 | Health | | | | | SER/PLAS | | System - | | | | | | | [facility] | | | | + + + + + + + | CHLORIDE | 2022-09-22 | [facility] | 104 | mmol/l | (missing) | | (MMOL/L) IN | 22:26 | Health | | | | | SER/PLAS | | System - | | | | | | | [facility] | | | | + + + + + + + | BLOOD UREA | 2022-09-22 | [facility] | 11 | mg/dl | (missing) | | NITROGEN | 22:26 | Health | | | | | (BUN) | | System - | | | | | (MG/DL) IN | | [facility] | | | | | SER/PLAS | | | | | | + + + + + + + | BLOOD UREA | 2022-09-22 | [facility] | 11 | mg/dl | (missing) | | NITROGEN | 22:26 | Health | | | | | (BUN) | | System - | | | | | (MG/DL) IN | | [facility] | | | | | SER/PLAS | | | | | | + + + + + + + | ERYTHROCYTE | 2022-09-22 | [facility] | 13.4 | % | (missing) | | | 22: | Health | | | | | DISTRIBUTION | | System - | | | | | WIDTH | | [facility] | | | | | (RATIO) BY | | | | | | | AUTOMATED | | | | | | | COUNT | | | | | | + + + + + + + | ERYTHROCYTE | 2022-09-22 | [facility] | 13.4 | % | (missing) | | | 22: | Health | | | | | DISTRIBUTION | | System - | | | | | WIDTH | | [facility] | | | | | (RATIO) BY | | | | | | | AUTOMATED | | | | | | | COUNT | | | | | | + + + + + + + | SODIUM | 2022-09-22 | [facility] | 138 | mmol/l | (missing) | | (MMOL/L) IN | 22:26 | Health | | | | | SER/PLAS | | System - | | | | | | | [facility] | | | | + + + + + + + | SODIUM | 2022-09-22 | [facility] | 138 | mmol/l | (missing) | | (MMOL/L) IN | 22:26 | Health | | | | | SER/PLAS | | System - | | | | | | | [facility] | | | | + + + + + + + | HEMOGLOBIN | 2022-09-22 | [facility] | 14.9 | g/dl | (missing) | | (G/DL) IN | 22:26 | Health | | | | | BLOOD | | System - | | | | | | | [facility] | | | | + + + + + + + | HEMOGLOBIN | 2022-09-22 | [facility] | 14.9 | g/dl | (missing) | | (G/DL) IN | 22:26 | Health | | | | | BLOOD | | System - | | | | | | | [facility] | | | | + + + + + + + | | 2022-09-22 | [facility] | 15.8 | k/mcl | (missing) | | LEUKOCYTES(1 | 22:26 | Health | | | | | 0*3/UL) IN | | System - | | | | | BLOOD BY | | [facility] | | | | | AUTOMATED | | | | | | | COUNT | | | | | | + + + + + + + | | 2022-09-22 | [facility] | 15.8 | k/mcl | (missing) | | LEUKOCYTES(1 | 22:26 | Health | | | | | 0*3/UL) IN | | System - | | | | | BLOOD BY | | [facility] | | | | | AUTOMATED | | | | | | | COUNT | | | | | | + + + + + + + | CARBON | 2022-09-22 | [facility] | 17 | mmol/l | (missing) | | DIOXIDE | 22:26 | Health | | | | | (CO2), TOTAL | | System - | | | | | (MMOL/L) IN | | [facility] | | | | | SER/PLAS | | | | | | + + + + + + + | CARBON | 2022-09-22 | [facility] | 17 | mmol/l | (missing) | | DIOXIDE | 22:26 | Health | | | | | (CO2), TOTAL | | System - | | | | | (MMOL/L) IN | | [facility] | | | | | SER/PLAS | | | | | | + + + + + + + | ANION GAP | 2022-09-22 | [facility] | 17.0 | mmol/l | (missing) | | IN SER/PLAS | 22:26 | Health | | | | | | | System - | | | | | | | [facility] | | | | + + + + + + + | ANION GAP | 2022-09-22 | [facility] | 17.0 | mmol/l | (missing) | | IN SER/PLAS | 22:26 | Health | | | | | | | System - | | | | | | | [facility] | | | | + + + + + + + | | 2022-09-22 | [facility] | 27.0 | % | (missing) | | LYMPHOCYTES/ | 22:26 | Health | | | | | 100 | | System - | | | | | LEUKOCYTES | | [facility] | | | | | IN BLOOD BY | | | | | | | AUTOMATED | | | | | | | COUNT | | | | | | + + + + + + + | | 2022-09-22 | [facility] | 27.0 | % | (missing) | | LYMPHOCYTES/ | 22:26 | Health | | | | | 100 | | System - | | | | | LEUKOCYTES | | [facility] | | | | | IN BLOOD BY | | | | | | | AUTOMATED | | | | | | | COUNT | | | | | | + + + + + + + | ASPARTATE | 2022-09-22 | [facility] | 29 | u/l | (missing) | | AMINOTRANSFE | 22:26 | Health | | | | | RASE (SGOT) | | System - | | | | | (U/L) IN | | [facility] | | | | | SER/PLAS | | | | | | + + + + + + + | ASPARTATE | 2022-09-22 | [facility] | 29 | u/l | (missing) | | AMINOTRANSFE | 22:26 | Health | | | | | RASE (SGOT) | | System - | | | | | (U/L) IN | | [facility] | | | | | SER/PLAS | | | | | | + + + + + + + | POTASSIUM | 2022-09-22 | [facility] | 3.0 | mmol/l | (missing) | | (MMOL/L) IN | 22: | Health | | | | | SER/PLAS | | System - | | | | | | | [facility] | | | | + + + + + + + | POTASSIUM | 2022-09-22 | [facility] | 3.0 | mmol/l | (missing) | | (MMOL/L) IN | : | Health | | | | | SER/PLAS | | System - | | | | | | | [facility] | | | | + + + + + + + | ERYTHROCYTE | 2022-09-22 | [facility] | 30.1 | pg | (missing) | | MEAN | 22:26 | Health | | | | | CORPUSCULAR | | System - | | | | | HEMOGLOBIN | | [facility] | | | | | (PG) BY | | | | | | | AUTOMATED | | | | | | | COUNT | | | | | | + + + + + + + | ERYTHROCYTE | 2022-09-22 | [facility] | 30.1 | pg | (missing) | | MEAN | 22:26 | Health | | | | | CORPUSCULAR | | System - | | | | | HEMOGLOBIN | | [facility] | | | | | (PG) BY | | | | | | | AUTOMATED | | | | | | | COUNT | | | | | | + + + + + + + | LIPASE | 2022-09-22 | [facility] | 33 | u/l | (missing) | | (U/L) IN | 22:26 | Health | | | | | SER/PLAS | | System - | | | | | | | [facility] | | | | + + + + + + + | LIPASE | 2022-09-22 | [facility] | 33 | u/l | (missing) | | (U/L) IN | 22:26 | Health | | | | | SER/PLAS | | System - | | | | | | | [facility] | | | | + + + + + + + | ERYTHROCYTE | 2022-09-22 | [facility] | 33.2 | g/dl | (missing) | | MEAN | 22:26 | Health | | | | | CORPUSCULAR | | System - | | | | | HEMOGLOBIN | | [facility] | | | | | CONCENTRATIO | | | | | | | N (G/DL) BY | | | | | | | AUTOMATED | | | | | | + + + + + + + | ERYTHROCYTE | 2022-09-22 | [facility] | 33.2 | g/dl | (missing) | | MEAN | 22:26 | Health | | | | | CORPUSCULAR | | System - | | | | | HEMOGLOBIN | | [facility] | | | | | CONCENTRATIO | | | | | | | N (G/DL) BY | | | | | | | AUTOMATED | | | | | | + + + + + + + | LYMPHOCYTES | 2022-09-22 | [facility] | 4.3 | k/mcl | (missing) | | (10*3/UL) | 22:26 | Health | | | | | IN BLOOD BY | | System - | | | | | AUTOMATED | | [facility] | | | | | COUNT | | | | | | + + + + + + + | LYMPHOCYTES | 2022-09-22 | [facility] | 4.3 | k/mcl | (missing) | | (10*3/UL) | 22:26 | Health | | | | | IN BLOOD BY | | System - | | | | | AUTOMATED | | [facility] | | | | | COUNT | | | | | | + + + + + + + | ALBUMIN | 2022-09-22 | [facility] | 4.6 | g/dl | (missing) | | (G/DL) IN | | Health | | | | | SER/PLAS | | System - | | | | | | | [facility] | | | | + + + + + + + | ALBUMIN | 2022-09-22 | [facility] | 4.6 | g/dl | (missing) | | (G/DL) IN | | Health | | | | | SER/PLAS | | System - | | | | | | | [facility] | | | | + + + + + + + | | 2022-09-22 | [facility] | 4.95 | m/mcl | (missing) | | ERYTHROCYTES | 22:26 | Health | | | | | (10*6/UL) | | System - | | | | | IN BLOOD BY | | [facility] | | | | | AUTOMATED | | | | | | | COUNT | | | | | | + + + + + + + | | 2022-09-22 | [facility] | 4.95 | m/mcl | (missing) | | ERYTHROCYTES | 22:26 | Health | | | | | (10*6/UL) | | System - | | | | | IN BLOOD BY | | [facility] | | | | | AUTOMATED | | | | | | | COUNT | | | | | | + + + + + + + | HEMATOCRIT | 2022-09-22 | [facility] | 44.9 | % | (missing) | | (%) IN BLOOD | 22:26 | Health | | | | | BY | | System - | | | | | AUTOMATED | | [facility] | | | | | COUNT | | | | | | + + + + + + + | HEMATOCRIT | 2022-09-22 | [facility] | 44.9 | % | (missing) | | (%) IN BLOOD | 22:26 | Health | | | | | BY | | System - | | | | | AUTOMATED | | [facility] | | | | | COUNT | | | | | | + + + + + + + | ALANINE | 2022-09-22 | [facility] | 48 | u/l | (missing) | | AMINOTRANSFE | 22:26 | Health | | | | | RASE (SGPT) | | System - | | | | | (U/L) IN | | [facility] | | | | | SER/PLAS | | | | | | + + + + + + + | ALANINE | 2022-09-22 | [facility] | 48 | u/l | (missing) | | AMINOTRANSFE | 22:26 | Health | | | | | RASE (SGPT) | | System - | | | | | (U/L) IN | | [facility] | | | | | SER/PLAS | | | | | | + + + + + + + | PLATELETS | 2022-09-22 | [facility] | 485 | k/mcl | (missing) | | (10*3/UL) IN | 22:26 | Health | | | | | BLOOD | | System - | | | | | AUTOMATED | | [facility] | | | | | COUNT | | | | | | + + + + + + + | PLATELETS | 2022-09-22 | [facility] | 485 | k/mcl | (missing) | | (10*3/UL) IN | 22:26 | Health | | | | | BLOOD | | System - | | | | | AUTOMATED | | [facility] | | | | | COUNT | | | | | | + + + + + + + | | 2022-09-22 | [facility] | 6.1 | % | (missing) | | MONOCYTES/10 | 22:26 | Health | | | | | 0 LEUKOCYTES | | System - | | | | | IN BLOOD BY | | [facility] | | | | | AUTOMATED | | | | | | | COUNT | | | | | | + + + + + + + | | 2022-09-22 | [facility] | 6.1 | % | (missing) | | MONOCYTES/10 | 22:26 | Health | | | | | 0 LEUKOCYTES | | System - | | | | | IN BLOOD BY | | [facility] | | | | | AUTOMATED | | | | | | | COUNT | | | | | | + + + + + + + | | 2022-09-22 | [facility] | 65.7 | % | (missing) | | NEUTROPHILS/ | 22:26 | Health | | | | | 100 | | System - | | | | | LEUKOCYTES | | [facility] | | | | | IN BLOOD BY | | | | | | | AUTOMATED | | | | | | | COUNT | | | | | | + + + + + + + | | 2022-09-22 | [facility] | 65.7 | % | (missing) | | NEUTROPHILS/ | 22:26 | Health | | | | | 100 | | System - | | | | | LEUKOCYTES | | [facility] | | | | | IN BLOOD BY | | | | | | | AUTOMATED | | | | | | | COUNT | | | | | | + + + + + + + | PROTEIN | 2022-09-22 | [facility] | 7.5 | g/dl | (missing) | | (G/DL) IN | : | Health | | | | | SER/PLAS | | System - | | | | | | | [facility] | | | | + + + + + + + | PROTEIN | 2022-09-22 | [facility] | 7.5 | g/dl | (missing) | | (G/DL) IN | : | Health | | | | | SER/PLAS | | System - | | | | | | | [facility] | | | | + + + + + + + | CALCIUM | 2022-09-22 | [facility] | 8.9 | mg/dl | (missing) | | (MG/DL) IN | :26 | Health | | | | | SER/PLAS | | System - | | | | | | | [facility] | | | | + + + + + + + | CALCIUM | 2022-09-22 | [facility] | 8.9 | mg/dl | (missing) | | (MG/DL) IN | 22:26 | Health | | | | | SER/PLAS | | System - | | | | | | | [facility] | | | | + + + + + + + | PLATELET | 2022-09-22 | [facility] | 9.4 | fl | (missing) | | MEAN VOLUME | 22:26 | Health | | | | | (FL) IN | | System - | | | | | BLOOD BY | | [facility] | | | | | AUTOMATED | | | | | | | COUNT | | | | | | + + + + + + + | PLATELET | 2022-09-22 | [facility] | 9.4 | fl | (missing) | | MEAN VOLUME | 22:26 | Health | | | | | (FL) IN | | System - | | | | | BLOOD BY | | [facility] | | | | | AUTOMATED | | | | | | | COUNT | | | | | | + + + + + + + | ERYTHROCYTE | 2022-09-22 | [facility] | 90.7 | fl | (missing) | | MEAN | 22:26 | Health | | | | | CORPUSCULAR | | System - | | | | | VOLUME (FL) | | [facility] | | | | | BY AUTOMATED | | | | | | | COUNT | | | | | | + + + + + + + | ERYTHROCYTE | 2022-09-22 | [facility] | 90.7 | fl | (missing) | | MEAN | 22:26 | Health | | | | | CORPUSCULAR | | System - | | | | | VOLUME (FL) | | [facility] | | | | | BY AUTOMATED | | | | | | | COUNT | | | | | | + + + + + + + | ALKALINE | 2022-09-22 | [facility] | 94 | u/l | (missing) | | PHOSPHATASE | 22:26 | Health | | | | | (U/L) IN | | System - | | | | | SER/PLAS | | [facility] | | | | + + + + + + + | ALKALINE | 2022-09-22 | [facility] | 94 | u/l | (missing) | | PHOSPHATASE | 22:26 | Health | | | | | (U/L) IN | | System - | | | | | SER/PLAS | | [facility] | | | | + + + + + + + | GLUCOSE, | 2022-09-22 | [facility] | 99 | mg/dl | (missing) | | RANDOM | 22:26 | Health | | | | | (MG/DL) IN | | System - | | | | | SER/PLAS | | [facility] | | | | + + + + + + + | GLUCOSE, | 2022-09-22 | [facility] | 99 | mg/dl | (missing) | | RANDOM | 22:26 | Health | | | | | (MG/DL) IN | | System - | | | | | SER/PLAS | | [facility] | | | | + + + + + + + | | 2022-09-22 | [facility] | Negative | (missing) | (missing) | | BARBITURATES | 22:26 | Health | | | | | PRESENCE IN | | System - | | | | | URINE BY | | [facility] | | | | | SCREEN | | | | | | | METHOD | | | | | | + + + + + + + | | 2022-09-22 | [facility] | Negative | (missing) | (missing) | | BENZODIAZEPI | 22:26 | Health | | | | | SURYA | | System - | | | | | (PRESENCE) | | [facility] | | | | | IN URINE BY | | | | | | | SCREEN | | | | | | | METHOD | | | | | | + + + + + + + | COCAINE | 2022-09-22 | [facility] | Negative | (missing) | (missing) | | (PRESENCE) | 22:26 | Health | | | | | IN URINE BY | | System - | | | | | SCREEN | | [facility] | | | | | METHOD | | | | | | + + + + + + + | METHADONE | 2022-09-22 | [facility] | Negative | (missing) | (missing) | | (PRESENCE) | 22:26 | Health | | | | | IN URINE BY | | System - | | | | | SCREEN | | [facility] | | | | | METHOD | | | | | | + + + + + + + | OPIATES | 2022-09-22 | [facility] | Negative | (missing) | (missing) | | (PRESENCE) | 22:26 | Health | | | | | IN URINE BY | | System - | | | | | SCREEN | | [facility] | | | | | METHOD | | | | | | + + + + + + + | OXYCODONE | 2022-09-22 | [facility] | Negative | (missing) | (missing) | | (PRESENCE) | 22:26 | Health | | | | | IN URINE BY | | System - | | | | | SCREEN | | [facility] | | | | | METHOD | | | | | | + + + + + + + | | 2022-09-22 | [facility] | Negative | (missing) | (missing) | | PHENCYCLIDIN | 22:26 | Health | | | | | E (PRESENCE) | | System - | | | | | IN URINE BY | | [facility] | | | | | SCREEN | | | | | | | METHOD | | | | | | + + + + + + + | THC | 2022-09-22 | [facility] | Negative | (missing) | (missing) | | (CANNABINOID | 22:26 | Health | | | | | ) IN URINE | | System - | | | | | BY SCREEN | | [facility] | | | | | METHOD | | | | | | + + + + + + + | TRICYCLIC | 2022-09-22 | [facility] | Negative | (missing) | (missing) | | ANTIDEPRESSA | 22:26 | Health | | | | | NTS | | System - | | | | | (PRESENCE) | | [facility] | | | | | IN URINE | | | | | | + + + + + + + | | 2022-09-22 | [facility] | Negative | (missing) | (missing) | | PHENCYCLIDIN | 22:26 | Health | | | | | E (PRESENCE) | | System - | | | | | IN URINE BY | | [facility] | | | | | SCREEN | | | | | | | METHOD | | | | | | + + + + + + + | THC | 2022-09-22 | [facility] | Negative | (missing) | (missing) | | (CANNABINOID | 22:26 | Health | | | | | ) IN URINE | | System - | | | | | BY SCREEN | | [facility] | | | | | METHOD | | | | | | + + + + + + + | OPIATES | 2022-09-22 | [facility] | Negative | (missing) | (missing) | | (PRESENCE) | 22:26 | Health | | | | | IN URINE BY | | System - | | | | | SCREEN | | [facility] | | | | | METHOD | | | | | | + + + + + + + | TRICYCLIC | 2022-09-22 | [facility] | Negative | (missing) | (missing) | | ANTIDEPRESSA | 22:26 | Health | | | | | NTS | | System - | | | | | (PRESENCE) | | [facility] | | | | | IN URINE | | | | | | + + + + + + + | OXYCODONE | 2022-09-22 | [facility] | Negative | (missing) | (missing) | | (PRESENCE) | 22:26 | Health | | | | | IN URINE BY | | System - | | | | | SCREEN | | [facility] | | | | | METHOD | | | | | | + + + + + + + | BHCG QUAL | 2022-09-22 | [facility] | Negative | (missing) | (missing) | | (CHORIOGONAD | 22:26 | Health | | | | | OTROPIN) IN | | System - | | | | | SER/PLAS | | [facility] | | | | + + + + + + + | COCAINE | 2022-09-22 | [facility] | Negative | (missing) | (missing) | | (PRESENCE) | 22:26 | Health | | | | | IN URINE BY | | System - | | | | | SCREEN | | [facility] | | | | | METHOD | | | | | | + + + + + + + | | 2022-09-22 | [facility] | Negative | (missing) | (missing) | | BARBITURATES | 22:26 | Health | | | | | PRESENCE IN | | System - | | | | | URINE BY | | [facility] | | | | | SCREEN | | | | | | | METHOD | | | | | | + + + + + + + | | 2022-09-22 | [facility] | Negative | (missing) | (missing) | | BENZODIAZEPI | 22:26 | Health | | | | | SURYA | | System - | | | | | (PRESENCE) | | [facility] | | | | | IN URINE BY | | | | | | | SCREEN | | | | | | | METHOD | | | | | | + + + + + + + | METHADONE | 2022-09-22 | [facility] | Negative | (missing) | (missing) | | (PRESENCE) | 22:26 | Health | | | | | IN URINE BY | | System - | | | | | SCREEN | | [facility] | | | | | METHOD | | | | | | + + + + + + + | BHCG QUAL | 2022-09-22 | [facility] | Negative | (missing) | (missing) | | (CHORIOGONAD | 22:26 | Health | | | | | OTROPIN) IN | | System - | | | | | SER/PLAS | | [facility] | | | | + + + + + + + | | 2022-09-22 | [facility] | Presumptive | (missing) | (missing) | | METHAMPHETAM | 22:26 | Health | Positive | | | | INE | | System - | | | | | (PRESENCE) | | [facility] | | | | | IN URINE BY | | | | | | | SCREEN | | | | | | | METHOD | | | | | | + + + + + + + | AMPHETAMINE | 2022-09-22 | [facility] | Presumptive | (missing) | (missing) | | (PRESENCE) | 22:26 | Health | Positive | | | | IN URINE BY | | System - | | | | | SCREEN | | [facility] | | | | | METHOD | | | | | | + + + + + + + | | 2022-09-22 | [facility] | Presumptive | (missing) | (missing) | | METHAMPHETAM | 22:26 | Health | Positive | | | | INE | | System - | | | | | (PRESENCE) | | [facility] | | | | | IN URINE BY | | | | | | | SCREEN | | | | | | | METHOD | | | | | | + + + + + + + | AMPHETAMINE | 2022-09-22 | [facility] | Presumptive | (missing) | (missing) | | (PRESENCE) | 22:26 | Health | Positive | | | | IN URINE BY | | System - | | | | | SCREEN | | [facility] | | | | | METHOD | | | | | | + + + + + + + + + | Result panel 82 | + + + + + + + + + | MUCUS | 2022-09-22 | [facility] | 1 | (missing) | (missing) | | (#/HPF) IN | 22:27 | Health | | | | | URINE | | System - | | | | | SEDIMENT | | [facility] | | | | + + + + + + + | PROTEIN IN | 2022-09-22 | [facility] | 1 | (missing) | (missing) | | URINE BY | 22:27 | Health | | | | | TEST STRIP | | System - | | | | | | | [facility] | | | | + + + + + + + | MUCUS | 2022-09-22 | [facility] | 1 | (missing) | (missing) | | (#/HPF) IN | 22:27 | Health | | | | | URINE | | System - | | | | | SEDIMENT | | [facility] | | | | + + + + + + + | PROTEIN IN | 2022-09-22 | [facility] | 1 | (missing) | (missing) | | URINE BY | 22:27 | Health | | | | | TEST STRIP | | System - | | | | | | | [facility] | | | | + + + + + + + | SPECIFIC | 2022-09-22 | [facility] | 1.037 | (missing) | (missing) | | GRAVITY OF | 22:27 | Health | | | | | URINE BY | | System - | | | | | AUTOMATED | | [facility] | | | | | TEST STRIP | | | | | | + + + + + + + | SPECIFIC | 2022-09-22 | [facility] | 1.037 | (missing) | (missing) | | GRAVITY OF | 22:27 | Health | | | | | URINE BY | | System - | | | | | AUTOMATED | | [facility] | | | | | TEST STRIP | | | | | | + + + + + + + | WBC | 2022-09-22 | [facility] | 13 | /hpf | (missing) | | (LEUKOCYTE) | 22:27 | Health | | | | | (#/HPF) IN | | System - | | | | | URINE | | [facility] | | | | | SEDIMENT | | | | | | + + + + + + + | WBC | 2022-09-22 | [facility] | 13 | /hpf | (missing) | | (LEUKOCYTE) | 22:27 | Health | | | | | (#/HPF) IN | | System - | | | | | URINE | | [facility] | | | | | SEDIMENT | | | | | | + + + + + + + | PH OF URINE | 2022-09-22 | [facility] | 5.5 | (missing) | (missing) | | | 22:27 | Health | | | | | | | System - | | | | | | | [facility] | | | | + + + + + + + | PH OF URINE | 2022-09-22 | [facility] | 5.5 | (missing) | (missing) | | | 22:27 | Health | | | | | | | System - | | | | | | | [facility] | | | | + + + + + + + | RBC (#/HPF) | 2022-09-22 | [facility] | 6 | /hpf | (missing) | | IN URINE | 22:27 | Health | | | | | SEDIMENT | | System - | | | | | | | [facility] | | | | + + + + + + + | RBC (#/HPF) | 2022-09-22 | [facility] | 6 | /hpf | (missing) | | IN URINE | 22:27 | Health | | | | | SEDIMENT | | System - | | | | | | | [facility] | | | | + + + + + + + | SQUAMOUS | 2022-09-22 | [facility] | 8 | /hpf | (missing) | | EPITHELIAL | 22:27 | Health | | | | | CELLS | | System - | | | | | (#/HPF) IN | | [facility] | | | | | URINE | | | | | | | SEDIMENT | | | | | | + + + + + + + | SQUAMOUS | 2022-09-22 | [facility] | 8 | /hpf | (missing) | | EPITHELIAL | 22:27 | Health | | | | | CELLS | | System - | | | | | (#/HPF) IN | | [facility] | | | | | URINE | | | | | | | SEDIMENT | | | | | | + + + + + + + | CLARITY OF | 2022-09-22 | [facility] | Hazy | (missing) | (missing) | | URINE | 22:27 | Health | | | | | | | System - | | | | | | | [facility] | | | | + + + + + + + | CLARITY OF | 2022-09-22 | [facility] | Hazy | (missing) | (missing) | | URINE | 22:27 | Health | | | | | | | System - | | | | | | | [facility] | | | | + + + + + + + | BILIRUBIN, | 2022-09-22 | [facility] | Negative | (missing) | (missing) | | TOTAL | 22:27 | Health | | | | | PRESENCE IN | | System - | | | | | URINE | | [facility] | | | | + + + + + + + | GLUCOSE IN | 2022-09-22 | [facility] | Negative | (missing) | (missing) | | URINE | 22:27 | Health | | | | | | | System - | | | | | | | [facility] | | | | + + + + + + + | LEUKOCYTE | 2022-09-22 | [facility] | Negative | (missing) | (missing) | | ESTERASE | 22:27 | Health | | | | | PRESENCE IN | | System - | | | | | URINE BY | | [facility] | | | | | TEST STRIP | | | | | | + + + + + + + | NITRITE | 2022-09-22 | [facility] | Negative | (missing) | (missing) | | PRESENCE IN | 22:27 | Health | | | | | URINE | | System - | | | | | | | [facility] | | | | + + + + + + + | BILIRUBIN, | 2022-09-22 | [facility] | Negative | (missing) | (missing) | | TOTAL | 22:27 | Health | | | | | PRESENCE IN | | System - | | | | | URINE | | [facility] | | | | + + + + + + + | GLUCOSE IN | 2022-09-22 | [facility] | Negative | (missing) | (missing) | | URINE | 22:27 | Health | | | | | | | System - | | | | | | | [facility] | | | | + + + + + + + | NITRITE | 2022-09-22 | [facility] | Negative | (missing) | (missing) | | PRESENCE IN | 22:27 | Health | | | | | URINE | | System - | | | | | | | [facility] | | | | + + + + + + + | LEUKOCYTE | 2022-09-22 | [facility] | Negative | (missing) | (missing) | | ESTERASE | 22:27 | Health | | | | | PRESENCE IN | | System - | | | | | URINE BY | | [facility] | | | | | TEST STRIP | | | | | | + + + + + + + | | 2022-09-22 | [facility] | Normal | mg/dl | (missing) | | UROBILINOGEN | 22:27 | Health | | | | | (MG/DL) IN | | System - | | | | | URINE BY | | [facility] | | | | | TEST STRIP | | | | | | + + + + + + + | | 2022-09-22 | [facility] | Normal | mg/dl | (missing) | | UROBILINOGEN | 22:27 | Health | | | | | (MG/DL) IN | | System - | | | | | URINE BY | | [facility] | | | | | TEST STRIP | | | | | | + + + + + + + | HEMOGLOBIN | 2022-09-22 | [facility] | Trace | (missing) | (missing) | | PRESENCE IN | 22:27 | Health | | | | | URINE | | System - | | | | | | | [facility] | | | | + + + + + + + | KETONES IN | 2022-09-22 | [facility] | Trace | (missing) | (missing) | | URINE | 22:27 | Health | | | | | | | System - | | | | | | | [facility] | | | | + + + + + + + | KETONES IN | 2022-09-22 | [facility] | Trace | (missing) | (missing) | | URINE | 22:27 | Health | | | | | | | System - | | | | | | | [facility] | | | | + + + + + + + | HEMOGLOBIN | 2022-09-22 | [facility] | Trace | (missing) | (missing) | | PRESENCE IN | 22:27 | Health | | | | | URINE | | System - | | | | | | | [facility] | | | | + + + + + + + | BACTERIA | 2022-09-22 | [facility] | Trace | /hpf | (missing) | | (#/HPF) IN | 22:27 | Health | | | | | URINE | | System - | | | | | | | [facility] | | | | + + + + + + + | BACTERIA | 2022-09-22 | [facility] | Trace | /hpf | (missing) | | (#/HPF) IN | 22:27 | Health | | | | | URINE | | System - | | | | | | | [facility] | | | | + + + + + + + | COLOR OF | 2022-09-22 | [facility] | Yellow | (missing) | (missing) | | URINE | 22:27 | Health | | | | | | | System - | | | | | | | [facility] | | | | + + + + + + + | COLOR OF | 2022-09-22 | [facility] | Yellow | (missing) | (missing) | | URINE | 22:27 | Health | | | | | | | System - | | | | | | | [facility] | | | | + + + + + + + + + | Result panel 83 | + + + + + + + + + | LACTIC ACID | 2022-09-22 | [facility] | 2.1 | mmol/l | (missing) | | (LACTATE) | 22:40 | Health | | | | | (MMOL/L) IN | | System - | | | | | BLOOD | | [facility] | | | | + + + + + + + | LACTIC ACID | 2022-09-22 | [facility] | 2.1 | mmol/l | (missing) | | (LACTATE) | 22:40 | Health | | | | | (MMOL/L) IN | | System - | | | | | BLOOD | | [facility] | | | | + + + + + + + | ADENOVIRUS | 2022-09-22 | [facility] | Not | (missing) | (missing) | | DETECTION BY | 22:40 | Health | Detected | | | | PCR | | System - | | | | | | | [facility] | | | | + + + + + + + | BORDETELLA | 2022-09-22 | [facility] | Not | (missing) | (missing) | | PARAPERTUSSI | 22:40 | Health | Detected | | | | S | | System - | | | | | | | [facility] | | | | + + + + + + + | BORDETELLA | 2022-09-22 | [facility] | Not | (missing) | (missing) | | PERTUSSIS | 22:40 | Health | Detected | | | | | | System - | | | | | | | [facility] | | | | + + + + + + + | | 2022-09-22 | [facility] | Not | (missing) | (missing) | | CHLAMYDOPHIL | 22:40 | Health | Detected | | | | A PNEUMONIAE | | System - | | | | | | | [facility] | | | | + + + + + + + | CORONAVIRUS | 2022-09-22 | [facility] | Not | (missing) | (missing) | | 229E | 22:40 | Health | Detected | | | | | | System - | | | | | | | [facility] | | | | + + + + + + + | CORONAVIRUS | 2022-09-22 | [facility] | Not | (missing) | (missing) | | HKU1 | 22:40 | Health | Detected | | | | | | System - | | | | | | | [facility] | | | | + + + + + + + | CORONAVIRUS | 2022-09-22 | [facility] | Not | (missing) | (missing) | | NL63 | 22:40 | Health | Detected | | | | | | System - | | | | | | | [facility] | | | | + + + + + + + | CORONAVIRUS | 2022-09-22 | [facility] | Not | (missing) | (missing) | | OC43 | 22:40 | Health | Detected | | | | | | System - | | | | | | | [facility] | | | | + + + + + + + | INFLUENZA A | 2022-09-22 | [facility] | Not | (missing) | (missing) | | | 22:40 | Health | Detected | | | | | | System - | | | | | | | [facility] | | | | + + + + + + + | INFLUENZA B | 2022-09-22 | [facility] | Not | (missing) | (missing) | | | 22:40 | Health | Detected | | | | | | System - | | | | | | | [facility] | | | | + + + + + + + | | 2022-09-22 | [facility] | Not | (missing) | (missing) | | METAPNEUMOVI | 22:40 | Health | Detected | | | | KELVIN | | System - | | | | | | | [facility] | | | | + + + + + + + | MYCOPLASMA | 2022-09-22 | [facility] | Not | (missing) | (missing) | | PNEUMONIAE | 22:40 | Health | Detected | | | | PCR | | System - | | | | | | | [facility] | | | | + + + + + + + | | 2022-09-22 | [facility] | Not | (missing) | (missing) | | PARAINFLUENZ | 22:40 | Health | Detected | | | | A 1 | | System - | | | | | | | [facility] | | | | + + + + + + + | | 2022-09-22 | [facility] | Not | (missing) | (missing) | | PARAINFLUENZ | 22:40 | Health | Detected | | | | A 2 | | System - | | | | | | | [facility] | | | | + + + + + + + | | 2022-09-22 | [facility] | Not | (missing) | (missing) | | PARAINFLUENZ | 22:40 | Health | Detected | | | | A 3 | | System - | | | | | | | [facility] | | | | + + + + + + + | | 2022-09-22 | [facility] | Not | (missing) | (missing) | | PARAINFLUENZ | 22:40 | Health | Detected | | | | A 4 | | System - | | | | | | | [facility] | | | | + + + + + + + | | 2022-09-22 | [facility] | Not | (missing) | (missing) | | RHINOVIRUS/E | 22:40 | Health | Detected | | | | NTEROVIRUS | | System - | | | | | | | [facility] | | | | + + + + + + + | RSV | 2022-09-22 | [facility] | Not | (missing) | (missing) | | | 22:40 | Health | Detected | | | | | | System - | | | | | | | [facility] | | | | + + + + + + + | SARS-COV-2 | 2022-09-22 | [facility] | Not | (missing) | (missing) | | (COVID19) | 22:40 | Health | Detected | | | | BIOFIRE PCR | | System - | | | | | | | [facility] | | | | + + + + + + + | RSV | 2022-09-22 | [facility] | Not | (missing) | (missing) | | | 22:40 | Health | Detected | | | | | | System - | | | | | | | [facility] | | | | + + + + + + + | ADENOVIRUS | 2022-09-22 | [facility] | Not | (missing) | (missing) | | DETECTION BY | 22:40 | Health | Detected | | | | PCR | | System - | | | | | | | [facility] | | | | + + + + + + + | CORONAVIRUS | 2022-09-22 | [facility] | Not | (missing) | (missing) | | HKU1 | 22:40 | Health | Detected | | | | | | System - | | | | | | | [facility] | | | | + + + + + + + | CORONAVIRUS | 2022-09-22 | [facility] | Not | (missing) | (missing) | | NL63 | 22:40 | Health | Detected | | | | | | System - | | | | | | | [facility] | | | | + + + + + + + | CORONAVIRUS | 2022-09-22 | [facility] | Not | (missing) | (missing) | | 229E | 22:40 | Health | Detected | | | | | | System - | | | | | | | [facility] | | | | + + + + + + + | CORONAVIRUS | 2022-09-22 | [facility] | Not | (missing) | (missing) | | OC43 | 22:40 | Health | Detected | | | | | | System - | | | | | | | [facility] | | | | + + + + + + + | | 2022-09-22 | [facility] | Not | (missing) | (missing) | | METAPNEUMOVI | 22:40 | Health | Detected | | | | KELVIN | | System - | | | | | | | [facility] | | | | + + + + + + + | INFLUENZA A | 2022-09-22 | [facility] | Not | (missing) | (missing) | | | 22:40 | Health | Detected | | | | | | System - | | | | | | | [facility] | | | | + + + + + + + | INFLUENZA B | 2022-09-22 | [facility] | Not | (missing) | (missing) | | | 22:40 | Health | Detected | | | | | | System - | | | | | | | [facility] | | | | + + + + + + + | | 2022-09-22 | [facility] | Not | (missing) | (missing) | | PARAINFLUENZ | 22:40 | Health | Detected | | | | A 1 | | System - | | | | | | | [facility] | | | | + + + + + + + | | 2022-09-22 | [facility] | Not | (missing) | (missing) | | PARAINFLUENZ | 22:40 | Health | Detected | | | | A 2 | | System - | | | | | | | [facility] | | | | + + + + + + + | | 2022-09-22 | [facility] | Not | (missing) | (missing) | | PARAINFLUENZ | 22:40 | Health | Detected | | | | A 3 | | System - | | | | | | | [facility] | | | | + + + + + + + | | 2022-09-22 | [facility] | Not | (missing) | (missing) | | PARAINFLUENZ | 22:40 | Health | Detected | | | | A 4 | | System - | | | | | | | [facility] | | | | + + + + + + + | | 2022-09-22 | [facility] | Not | (missing) | (missing) | | RHINOVIRUS/E | 22:40 | Health | Detected | | | | NTEROVIRUS | | System - | | | | | | | [facility] | | | | + + + + + + + | MYCOPLASMA | 2022-09-22 | [facility] | Not | (missing) | (missing) | | PNEUMONIAE | 22:40 | Health | Detected | | | | PCR | | System - | | | | | | | [facility] | | | | + + + + + + + | | 2022-09-22 | [facility] | Not | (missing) | (missing) | | CHLAMYDOPHIL | 22:40 | Health | Detected | | | | A PNEUMONIAE | | System - | | | | | | | [facility] | | | | + + + + + + + | BORDETELLA | 2022-09-22 | [facility] | Not | (missing) | (missing) | | PERTUSSIS | 22:40 | Health | Detected | | | | | | System - | | | | | | | [facility] | | | | + + + + + + + | BORDETELLA | 2022-09-22 | [facility] | Not | (missing) | (missing) | | PARAPERTUSSI | 22:40 | Health | Detected | | | | S | | System - | | | | | | | [facility] | | | | + + + + + + + | SARS-COV-2 | 2022-09-22 | [facility] | Not | (missing) | (missing) | | (COVID19) | 22:40 | Health | Detected | | | | BIOFIRE PCR | | System - | | | | | | | [facility] | | | | + + + + + + + + + | Result panel 84 | + + + + + + + + + | | 2022-09-22 | [facility] | (missing) | (missing) | (missing) | | (unavailable | 22:41 | Health | | | | | ) | | System - | | | | | | | [facility] | | | | + + + + + + + | | 2022-09-22 | [facility] | BONES: | (missing) | (missing) | | (unavailable | 22:41 | Health | Normal. | | | | ) | | System - | | | | | | | [facility] | | | | + + + + + + + | | 2022-09-22 | [facility] | COMPARISON: | (missing) | (missing) | | (unavailable | 22:41 | Health | Chest | | | | ) | | System - | single view | | | | | | [facility] | Valery 4, | | | | | | | 2022. | | | + + + + + + + | | 2022-09-22 | [facility] | Electronical | (missing) | (missing) | | (unavailable | 22:41 | Health | ly signed | | | | ) | | System - | by: Nithin | | | | | | [facility] | Ena Mondragon, | | | | | | | on | | | | | | | 09/22/2022 | | | | | | | 11:49 PM at | | | | | | | workstation | | | | | | | [id number] | | | | | | | 1 | | | + + + + + + + | | 2022-09-22 | [facility] | FINDINGS: | (missing) | (missing) | | (unavailable | 22:41 | Health | | | | | ) | | System - | | | | | | | [facility] | | | | + + + + + + + | | 2022-09-22 | [facility] | HEART: | (missing) | (missing) | | (unavailable | 22:41 | Health | Mildly | | | | ) | | System - | enlarged | | | | | | [facility] | with | | | | | | | otherwise | | | | | | | unremarkable | | | | | | | | | | | | | | configuratio | | | | | | | n. | | | + + + + + + + | | 2022-09-22 | [facility] | | (missing) | (missing) | | (unavailable | 22:41 | Health | INDICATIONS: | | | | ) | | System - | Productive | | | | | | [facility] | cough | | | + + + + + + + | | 2022-09-22 | [facility] | LUNGS: | (missing) | (missing) | | (unavailable | 22:41 | Health | Clear. No | | | | ) | | System - | focal | | | | | | [facility] | consolidatio | | | | | | | n. No | | | | | | | suspicious | | | | | | | lung | | | | | | | nodules. | | | + + + + + + + | | 2022-09-22 | [facility] | MEDIASTINUM: | (missing) | (missing) | | (unavailable | 22:41 | Health | Normal | | | | ) | | System - | mediastinal | | | | | | [facility] | contours | | | | | | | without | | | | | | | radiographic | | | | | | | evidence of | | | | | | | | | | | | | | lymphadenopa | | | | | | | thy. | | | + + + + + + + | | 2022-09-22 | [facility] | Mild | (missing) | (missing) | | (unavailable | 22:41 | Health | cardiomegaly | | | | ) | | System - | . | | | | | | [facility] | | | | + + + + + + + | | 2022-09-22 | [facility] | No | (missing) | (missing) | | (unavailable | 22:41 | Health | radiographic | | | | ) | | System - | evidence of | | | | | | [facility] | acute | | | | | | | cardiopulmon | | | | | | | cezar disease. | | | | | | | | | | + + + + + + + | | 2022-09-22 | [facility] | PLEURAL | (missing) | (missing) | | (unavailable | 22:41 | Health | SPACES: No | | | | ) | | System - | pleural | | | | | | [facility] | effusion or | | | | | | | pneumothorax | | | | | | | . | | | + + + + + + + | | 2022-09-22 | [facility] | PROCEDURE: | (missing) | (missing) | | (unavailable | 22:41 | Health | CHEST - ONE | | | | ) | | System - | VIEW | | | | | | [facility] | | | | + + + + + + + | | 2022-09-22 | [facility] | | (missing) | (missing) | | (unavailable | 22:41 | Health | Procedure(s) | | | | ) | | System - | : * No | | | | | | [facility] | procedures | | | | | | | listed * | | | + + + + + + + + + | Result panel 85 | + + + + + +-------+---------+ + | POCT | 2022-09-22 | [facility] | 0.8 | mg/dl | (missing) | | CREATININE | 22:58 | Health | | | | | BLOOD | | System - | | | | | | | [facility] | | | | + + + +-------+---------+ + + + | Result panel 86 | + + + + + + + + + | MUCUS | 2022-09-23 | [facility] | 1 | (missing) | (missing) | | (#/HPF) IN | 00:01 | Health | | | | | URINE | | System - | | | | | SEDIMENT | | [facility] | | | | + + + + + + + | PROTEIN IN | 2022-09-23 | [facility] | 1 | (missing) | (missing) | | URINE BY | 00:01 | Health | | | | | TEST STRIP | | System - | | | | | | | [facility] | | | | + + + + + + + | SPECIFIC | 2022-09-23 | [facility] | 1.037 | (missing) | (missing) | | GRAVITY OF | 00:01 | Health | | | | | URINE BY | | System - | | | | | AUTOMATED | | [facility] | | | | | TEST STRIP | | | | | | + + + + + + + | WBC | 2022-09-23 | [facility] | 13 | /hpf | (missing) | | (LEUKOCYTE) | 00:01 | Health | | | | | (#/HPF) IN | | System - | | | | | URINE | | [facility] | | | | | SEDIMENT | | | | | | + + + + + + + | PH OF URINE | 2022-09-23 | [facility] | 5.5 | (missing) | (missing) | | | 00:01 | Health | | | | | | | System - | | | | | | | [facility] | | | | + + + + + + + | RBC (#/HPF) | 2022-09-23 | [facility] | 6 | /hpf | (missing) | | IN URINE | 00:01 | Health | | | | | SEDIMENT | | System - | | | | | | | [facility] | | | | + + + + + + + | SQUAMOUS | 2022-09-23 | [facility] | 8 | /hpf | (missing) | | EPITHELIAL | 00:01 | Health | | | | | CELLS | | System - | | | | | (#/HPF) IN | | [facility] | | | | | URINE | | | | | | | SEDIMENT | | | | | | + + + + + + + | CLARITY OF | 2022-09-23 | [facility] | Hazy | (missing) | (missing) | | URINE | 00:01 | Health | | | | | | | System - | | | | | | | [facility] | | | | + + + + + + + | BILIRUBIN, | 2022-09-23 | [facility] | Negative | (missing) | (missing) | | TOTAL | 00:01 | Health | | | | | PRESENCE IN | | System - | | | | | URINE | | [facility] | | | | + + + + + + + | GLUCOSE IN | 2022-09-23 | [facility] | Negative | (missing) | (missing) | | URINE | 00:01 | Health | | | | | | | System - | | | | | | | [facility] | | | | + + + + + + + | NITRITE | 2022-09-23 | [facility] | Negative | (missing) | (missing) | | PRESENCE IN | 00:01 | Health | | | | | URINE | | System - | | | | | | | [facility] | | | | + + + + + + + | LEUKOCYTE | 2022-09-23 | [facility] | Negative | (missing) | (missing) | | ESTERASE | 00:01 | Health | | | | | PRESENCE IN | | System - | | | | | URINE BY | | [facility] | | | | | TEST STRIP | | | | | | + + + + + + + | URINE | 2022-09-23 | [facility] | Normal | (missing) | (missing) | | CULTURE | 00:01 | Health | urogenital | | | | | | System - | microbiota | | | | | | [facility] | | | | + + + + + + + | URINE | 2022-09-23 | [facility] | Normal | (missing) | (missing) | | CULTURE | 00:01 | Health | urogenital | | | | | | System - | microbiota | | | | | | [facility] | | | | + + + + + + + | | 2022-09-23 | [facility] | Normal | mg/dl | (missing) | | UROBILINOGEN | 00:01 | Health | | | | | (MG/DL) IN | | System - | | | | | URINE BY | | [facility] | | | | | TEST STRIP | | | | | | + + + + + + + | KETONES IN | 2022-09-23 | [facility] | Trace | (missing) | (missing) | | URINE | 00:01 | Health | | | | | | | System - | | | | | | | [facility] | | | | + + + + + + + | HEMOGLOBIN | 2022-09-23 | [facility] | Trace | (missing) | (missing) | | PRESENCE IN | 00:01 | Health | | | | | URINE | | System - | | | | | | | [facility] | | | | + + + + + + + | BACTERIA | 2022-09-23 | [facility] | Trace | /hpf | (missing) | | (#/HPF) IN | 00:01 | Health | | | | | URINE | | System - | | | | | | | [facility] | | | | + + + + + + + | COLOR OF | 2022-09-23 | [facility] | Yellow | (missing) | (missing) | | URINE | 00:01 | Health | | | | | | | System - | | | | | | | [facility] | | | | + + + + + + + + + | Result panel 87 | + + + + + + + + + | EGFR | 2022-11-08 | [facility] | > | | (missing) | | (GLOMERULAR | 11:31 | Health | | ml/min/1.73m | | | FILTRATION | | System - | | ? | | | RATE) | | [facility] | | | | | ML/MIN/1.73 | | | | | | | SQ M. | | | | | | + + + + + + + | EGFR | 2022-11-08 | [facility] | > | | (missing) | | (GLOMERULAR | 11:31 | Health | | ml/min/1.73m | | | FILTRATION | | System - | | ? | | | RATE) | | [facility] | | | | | ML/MIN/1.73 | | | | | | | SQ M. | | | | | | + + + + + + + | | 2022-11-08 | [facility] | < | mcg/ml | (missing) | | ACETAMINOPHE | 11:31 | Health | | | | | N (UG/ML) IN | | System - | | | | | SER/PLAS | | [facility] | | | | + + + + + + + | | 2022-11-08 | [facility] | < | mcg/ml | (missing) | | ACETAMINOPHE | 11:31 | Health | | | | | N (UG/ML) IN | | System - | | | | | SER/PLAS | | [facility] | | | | + + + + + + + | NRBC/100 | 2022-11-08 | [facility] | 0.0 | % | (missing) | | WBCS BY | 11:31 | Health | | | | | AUTOMATED | | System - | | | | | COUNT | | [facility] | | | | + + + + + + + | | 2022-11-08 | [facility] | 0.0 | % | (missing) | | EOSINOPHILS/ | 11:31 | Health | | | | | 100 | | System - | | | | | LEUKOCYTES | | [facility] | | | | | IN BLOOD BY | | | | | | | AUTOMATED | | | | | | | COUNT | | | | | | + + + + + + + | NRBC/100 | 2022-11-08 | [facility] | 0.0 | % | (missing) | | WBCS BY | 11:31 | Health | | | | | AUTOMATED | | System - | | | | | COUNT | | [facility] | | | | + + + + + + + | | 2022-11-08 | [facility] | 0.0 | % | (missing) | | EOSINOPHILS/ | 11:31 | Health | | | | | 100 | | System - | | | | | LEUKOCYTES | | [facility] | | | | | IN BLOOD BY | | | | | | | AUTOMATED | | | | | | | COUNT | | | | | | + + + + + + + | | 2022-11-08 | [facility] | 0.0 | k/mcl | (missing) | | NRBC(10*3/UL | 11:31 | Health | | | | | ) IN BLOOD | | System - | | | | | BY AUTOMATED | | [facility] | | | | | COUNT | | | | | | + + + + + + + | EOSINOPHILS | 2022-11-08 | [facility] | 0.0 | k/mcl | (missing) | | (10*3/UL) | 11:31 | Health | | | | | IN BLOOD BY | | System - | | | | | AUTOMATED | | [facility] | | | | | COUNT | | | | | | + + + + + + + | EOSINOPHILS | 2022-11-08 | [facility] | 0.0 | k/mcl | (missing) | | (10*3/UL) | 11:31 | Health | | | | | IN BLOOD BY | | System - | | | | | AUTOMATED | | [facility] | | | | | COUNT | | | | | | + + + + + + + | | 2022-11-08 | [facility] | 0.0 | k/mcl | (missing) | | NRBC(10*3/UL | 11:31 | Health | | | | | ) IN BLOOD | | System - | | | | | BY AUTOMATED | | [facility] | | | | | COUNT | | | | | | + + + + + + + | ALCOHOL | 2022-11-08 | [facility] | 0.020 | g/dl | (missing) | | (G/DL) IN | 11:31 | Health | | | | | SER/PLAS | | System - | | | | | | | [facility] | | | | + + + + + + + | ALCOHOL | 2022-11-08 | [facility] | 0.020 | g/dl | (missing) | | (G/DL) IN | 11:31 | Health | | | | | SER/PLAS | | System - | | | | | | | [facility] | | | | + + + + + + + | IMMATURE | 2022-11-08 | [facility] | 0.08 | k/mcl | (missing) | | GRANULOCYTE | 11:31 | Health | | | | | (ABS) | | System - | | | | | | | [facility] | | | | + + + + + + + | IMMATURE | 2022-11-08 | [facility] | 0.08 | k/mcl | (missing) | | GRANULOCYTE | 11:31 | Health | | | | | (ABS) | | System - | | | | | | | [facility] | | | | + + + + + + + | BASOPHILS | 2022-11-08 | [facility] | 0.1 | k/mcl | (missing) | | (10*3/UL) IN | 11:31 | Health | | | | | BLOOD BY | | System - | | | | | AUTOMATED | | [facility] | | | | | COUNT | | | | | | + + + + + + + | BASOPHILS | 2022-11-08 | [facility] | 0.1 | k/mcl | (missing) | | (10*3/UL) IN | 11:31 | Health | | | | | BLOOD BY | | System - | | | | | AUTOMATED | | [facility] | | | | | COUNT | | | | | | + + + + + + + | BILIRUBIN | 2022-11-08 | [facility] | 0.3 | mg/dl | (missing) | | TOTAL | 11:31 | Health | | | | | (MG/DL) IN | | System - | | | | | SER/PLAS | | [facility] | | | | + + + + + + + | BILIRUBIN | 2022-11-08 | [facility] | 0.3 | mg/dl | (missing) | | TOTAL | 11:31 | Health | | | | | (MG/DL) IN | | System - | | | | | SER/PLAS | | [facility] | | | | + + + + + + + | IMMATURE | 2022-11-08 | [facility] | 0.6 | % | (missing) | | GRANULOCYTE | 11:31 | Health | | | | | % (AUTO) | | System - | | | | | | | [facility] | | | | + + + + + + + | | 2022-11-08 | [facility] | 0.6 | % | (missing) | | BASOPHILS/10 | 11:31 | Health | | | | | 0 LEUKOCYTES | | System - | | | | | IN BLOOD BY | | [facility] | | | | | AUTOMATED | | | | | | | COUNT | | | | | | + + + + + + + | | 2022-11-08 | [facility] | 0.6 | % | (missing) | | BASOPHILS/10 | 11:31 | Health | | | | | 0 LEUKOCYTES | | System - | | | | | IN BLOOD BY | | [facility] | | | | | AUTOMATED | | | | | | | COUNT | | | | | | + + + + + + + | IMMATURE | 2022-11-08 | [facility] | 0.6 | % | (missing) | | GRANULOCYTE | 11:31 | Health | | | | | % (AUTO) | | System - | | | | | | | [facility] | | | | + + + + + + + | MONOCYTES | 2022-11-08 | [facility] | 0.9 | k/mcl | (missing) | | (10*3/UL) IN | 11:31 | Health | | | | | BLOOD BY | | System - | | | | | AUTOMATED | | [facility] | | | | | COUNT | | | | | | + + + + + + + | MONOCYTES | 2022-11-08 | [facility] | 0.9 | k/mcl | (missing) | | (10*3/UL) IN | 11:31 | Health | | | | | BLOOD BY | | System - | | | | | AUTOMATED | | [facility] | | | | | COUNT | | | | | | + + + + + + + | CREATININE | 2022-11-08 | [facility] | 0.9 | mg/dl | (missing) | | (MG/DL) IN | 11:31 | Health | | | | | SER/PLAS | | System - | | | | | | | [facility] | | | | + + + + + + + | CREATININE | 2022-11-08 | [facility] | 0.9 | mg/dl | (missing) | | (MG/DL) IN | 11:31 | Health | | | | | SER/PLAS | | System - | | | | | | | [facility] | | | | + + + + + + + | PROTEIN IN | 2022-11-08 | [facility] | 1 | (missing) | (missing) | | URINE BY | 11:31 | Health | | | | | TEST STRIP | | System - | | | | | | | [facility] | | | | + + + + + + + | PROTEIN IN | 2022-11-08 | [facility] | 1 | (missing) | (missing) | | URINE BY | 11:31 | Health | | | | | TEST STRIP | | System - | | | | | | | [facility] | | | | + + + + + + + | SPECIFIC | 2022-11-08 | [facility] | 1.019 | (missing) | (missing) | | GRAVITY OF | 11:31 | Health | | | | | URINE BY | | System - | | | | | AUTOMATED | | [facility] | | | | | TEST STRIP | | | | | | + + + + + + + | SPECIFIC | 2022-11-08 | [facility] | 1.019 | (missing) | (missing) | | GRAVITY OF | 11:31 | Health | | | | | URINE BY | | System - | | | | | AUTOMATED | | [facility] | | | | | TEST STRIP | | | | | | + + + + + + + | SALICYLATE | 2022-11-08 | [facility] | 1.2 | mg/dl | (missing) | | (MG/DL) IN | 11:31 | Health | | | | | SER/PLAS | | System - | | | | | | | [facility] | | | | + + + + + + + | SALICYLATE | 2022-11-08 | [facility] | 1.2 | mg/dl | (missing) | | (MG/DL) IN | | Health | | | | | SER/PLAS | | System - | | | | | | | [facility] | | | | + + + + + + + | CHLORIDE | 2022-11-08 | [facility] | 106 | mmol/l | (missing) | | (MMOL/L) IN 31 | Health | | | | | SER/PLAS | | System - | | | | | | | [facility] | | | | + + + + + + + | CHLORIDE | 2022-11-08 | [facility] | 106 | mmol/l | (missing) | | (MMOL/L) IN | 31 | Health | | | | | SER/PLAS | | System - | | | | | | | [facility] | | | | + + + + + + + | ERYTHROCYTE | 2022-11-08 | [facility] | 12.2 | % | (missing) | | | 11:31 | Health | | | | | DISTRIBUTION | | System - | | | | | WIDTH | | [facility] | | | | | (RATIO) BY | | | | | | | AUTOMATED | | | | | | | COUNT | | | | | | + + + + + + + | ERYTHROCYTE | 2022-11-08 | [facility] | 12.2 | % | (missing) | | | 11:31 | Health | | | | | DISTRIBUTION | | System - | | | | | WIDTH | | [facility] | | | | | (RATIO) BY | | | | | | | AUTOMATED | | | | | | | COUNT | | | | | | + + + + + + + | | 2022-11-08 | [facility] | 13.8 | k/mcl | (missing) | | LEUKOCYTES(1 | 11:31 | Health | | | | | 0*3/UL) IN | | System - | | | | | BLOOD BY | | [facility] | | | | | AUTOMATED | | | | | | | COUNT | | | | | | + + + + + + + | | 2022-11-08 | [facility] | 13.8 | k/mcl | (missing) | | LEUKOCYTES(1 | : | Health | | | | | 0*3/UL) IN | | System - | | | | | BLOOD BY | | [facility] | | | | | AUTOMATED | | | | | | | COUNT | | | | | | + + + + + + + | SODIUM | 2022-11-08 | [facility] | 143 | mmol/l | (missing) | | (MMOL/L) IN | 31 | Health | | | | | SER/PLAS | | System - | | | | | | | [facility] | | | | + + + + + + + | SODIUM | 2022-11-08 | [facility] | 143 | mmol/l | (missing) | | (MMOL/L) IN | 31 | Health | | | | | SER/PLAS | | System - | | | | | | | [facility] | | | | + + + + + + + | HEMOGLOBIN | 2022-11-08 | [facility] | 15.2 | g/dl | (missing) | | (G/DL) IN | 11:31 | Health | | | | | BLOOD | | System - | | | | | | | [facility] | | | | + + + + + + + | HEMOGLOBIN | 2022-11-08 | [facility] | 15.2 | g/dl | (missing) | | (G/DL) IN | 11:31 | Health | | | | | BLOOD | | System - | | | | | | | [facility] | | | | + + + + + + + | CARBON | 2022-11-08 | [facility] | 18 | mmol/l | (missing) | | DIOXIDE | 11:31 | Health | | | | | (CO2), TOTAL | | System - | | | | | (MMOL/L) IN | | [facility] | | | | | SER/PLAS | | | | | | + + + + + + + | CARBON | 2022-11-08 | [facility] | 18 | mmol/l | (missing) | | DIOXIDE | 11:31 | Health | | | | | (CO2), TOTAL | | System - | | | | | (MMOL/L) IN | | [facility] | | | | | SER/PLAS | | | | | | + + + + + + + | ANION GAP | 2022-11-08 | [facility] | 19.0 | mmol/l | (missing) | | IN SER/PLAS | 11:31 | Health | | | | | | | System - | | | | | | | [facility] | | | | + + + + + + + | ANION GAP | 2022-11-08 | [facility] | 19.0 | mmol/l | (missing) | | IN SER/PLAS | 11:31 | Health | | | | | | | System - | | | | | | | [facility] | | | | + + + + + + + | RBC (#/HPF) | 2022-11-08 | [facility] | 2 | /hpf | (missing) | | IN URINE | 11:31 | Health | | | | | SEDIMENT | | System - | | | | | | | [facility] | | | | + + + + + + + | RBC (#/HPF) | 2022-11-08 | [facility] | 2 | /hpf | (missing) | | IN URINE | 11:31 | Health | | | | | SEDIMENT | | System - | | | | | | | [facility] | | | | + + + + + + + | TSH | 2022-11-08 | [facility] | 2.95 | mciu/ml | (missing) | | (THYROTROPIN | 11:31 | Health | | | | | ) (UIU/ML) | | System - | | | | | IN SER/PLAS | | [facility] | | | | + + + + + + + | TSH | 2022-11-08 | [facility] | 2.95 | mciu/ml | (missing) | | (THYROTROPIN | 11:31 | Health | | | | | ) (UIU/ML) | | System - | | | | | IN SER/PLAS | | [facility] | | | | + + + + + + + | SQUAMOUS | 2022-11-08 | [facility] | 28 | /hpf | (missing) | | EPITHELIAL | 11:31 | Health | | | | | CELLS | | System - | | | | | (#/HPF) IN | | [facility] | | | | | URINE | | | | | | | SEDIMENT | | | | | | + + + + + + + | SQUAMOUS | 2022-11-08 | [facility] | 28 | /hpf | (missing) | | EPITHELIAL | 11:31 | Health | | | | | CELLS | | System - | | | | | (#/HPF) IN | | [facility] | | | | | URINE | | | | | | | SEDIMENT | | | | | | + + + + + + + | ERYTHROCYTE | 2022-11-08 | [facility] | 29.6 | pg | (missing) | | MEAN | 11:31 | Health | | | | | CORPUSCULAR | | System - | | | | | HEMOGLOBIN | | [facility] | | | | | (PG) BY | | | | | | | AUTOMATED | | | | | | | COUNT | | | | | | + + + + + + + | ERYTHROCYTE | 2022-11-08 | [facility] | 29.6 | pg | (missing) | | MEAN | 11:31 | Health | | | | | CORPUSCULAR | | System - | | | | | HEMOGLOBIN | | [facility] | | | | | (PG) BY | | | | | | | AUTOMATED | | | | | | | COUNT | | | | | | + + + + + + + | POTASSIUM | 2022-11-08 | [facility] | 3.7 | mmol/l | (missing) | | (MMOL/L) IN | 11:31 | Health | | | | | SER/PLAS | | System - | | | | | | | [facility] | | | | + + + + + + + | POTASSIUM | 2022-11-08 | [facility] | 3.7 | mmol/l | (missing) | | (MMOL/L) IN | 11:31 | Health | | | | | SER/PLAS | | System - | | | | | | | [facility] | | | | + + + + + + + | | 2022-11-08 | [facility] | 30.1 | % | (missing) | | LYMPHOCYTES/ | 11:31 | Health | | | | | 100 | | System - | | | | | LEUKOCYTES | | [facility] | | | | | IN BLOOD BY | | | | | | | AUTOMATED | | | | | | | COUNT | | | | | | + + + + + + + | | 2022-11-08 | [facility] | 30.1 | % | (missing) | | LYMPHOCYTES/ | 11:31 | Health | | | | | 100 | | System - | | | | | LEUKOCYTES | | [facility] | | | | | IN BLOOD BY | | | | | | | AUTOMATED | | | | | | | COUNT | | | | | | + + + + + + + | ERYTHROCYTE | 2022-11-08 | [facility] | 34.0 | g/dl | (missing) | | MEAN | 11:31 | Health | | | | | CORPUSCULAR | | System - | | | | | HEMOGLOBIN | | [facility] | | | | | CONCENTRATIO | | | | | | | N (G/DL) BY | | | | | | | AUTOMATED | | | | | | + + + + + + + | ERYTHROCYTE | 2022-11-08 | [facility] | 34.0 | g/dl | (missing) | | MEAN | 11:31 | Health | | | | | CORPUSCULAR | | System - | | | | | HEMOGLOBIN | | [facility] | | | | | CONCENTRATIO | | | | | | | N (G/DL) BY | | | | | | | AUTOMATED | | | | | | + + + + + + + | ASPARTATE | 2022-11-08 | [facility] | 39 | u/l | (missing) | | AMINOTRANSFE | 11:31 | Health | | | | | RASE (SGOT) | | System - | | | | | (U/L) IN | | [facility] | | | | | SER/PLAS | | | | | | + + + + + + + | ASPARTATE | 2022-11-08 | [facility] | 39 | u/l | (missing) | | AMINOTRANSFE | 11:31 | Health | | | | | RASE (SGOT) | | System - | | | | | (U/L) IN | | [facility] | | | | | SER/PLAS | | | | | | + + + + + + + | LYMPHOCYTES | 2022-11-08 | [facility] | 4.2 | k/mcl | (missing) | | (10*3/UL) | 11:31 | Health | | | | | IN BLOOD BY | | System - | | | | | AUTOMATED | | [facility] | | | | | COUNT | | | | | | + + + + + + + | LYMPHOCYTES | 2022-11-08 | [facility] | 4.2 | k/mcl | (missing) | | (10*3/UL) | 11:31 | Health | | | | | IN BLOOD BY | | System - | | | | | AUTOMATED | | [facility] | | | | | COUNT | | | | | | + + + + + + + | ALBUMIN | 2022-11-08 | [facility] | 4.7 | g/dl | (missing) | | (G/DL) IN | 11:31 | Health | | | | | SER/PLAS | | System - | | | | | | | [facility] | | | | + + + + + + + | ALBUMIN | 2022-11-08 | [facility] | 4.7 | g/dl | (missing) | | (G/DL) IN | 11:31 | Health | | | | | SER/PLAS | | System - | | | | | | | [facility] | | | | + + + + + + + | PLATELETS | 2022-11-08 | [facility] | 409 | k/mcl | (missing) | | (10*3/UL) IN | 1131 | Health | | | | | BLOOD | | System - | | | | | AUTOMATED | | [facility] | | | | | COUNT | | | | | | + + + + + + + | PLATELETS | 2022-11-08 | [facility] | 409 | k/mcl | (missing) | | (10*3/UL) IN | 11:31 | Health | | | | | BLOOD | | System - | | | | | AUTOMATED | | [facility] | | | | | COUNT | | | | | | + + + + + + + | HEMATOCRIT | 2022-11-08 | [facility] | 44.7 | % | (missing) | | (%) IN BLOOD | 11:31 | Health | | | | | BY | | System - | | | | | AUTOMATED | | [facility] | | | | | COUNT | | | | | | + + + + + + + | HEMATOCRIT | 2022-11-08 | [facility] | 44.7 | % | (missing) | | (%) IN BLOOD | 11:31 | Health | | | | | BY | | System - | | | | | AUTOMATED | | [facility] | | | | | COUNT | | | | | | + + + + + + + | | 2022-11-08 | [facility] | 5.13 | m/mcl | (missing) | | ERYTHROCYTES | 11:31 | Health | | | | | (10*6/UL) | | System - | | | | | IN BLOOD BY | | [facility] | | | | | AUTOMATED | | | | | | | COUNT | | | | | | + + + + + + + | | 2022-11-08 | [facility] | 5.13 | m/mcl | (missing) | | ERYTHROCYTES | 11:31 | Health | | | | | (10*6/UL) | | System - | | | | | IN BLOOD BY | | [facility] | | | | | AUTOMATED | | | | | | | COUNT | | | | | | + + + + + + + | ALANINE | 2022-11-08 | [facility] | 57 | u/l | (missing) | | AMINOTRANSFE | 11:31 | Health | | | | | RASE (SGPT) | | System - | | | | | (U/L) IN | | [facility] | | | | | SER/PLAS | | | | | | + + + + + + + | ALANINE | 2022-11-08 | [facility] | 57 | u/l | (missing) | | AMINOTRANSFE | 11:31 | Health | | | | | RASE (SGPT) | | System - | | | | | (U/L) IN | | [facility] | | | | | SER/PLAS | | | | | | + + + + + + + | WBC | 2022-11-08 | [facility] | 6 | /hpf | (missing) | | (LEUKOCYTE) | 11:31 | Health | | | | | (#/HPF) IN | | System - | | | | | URINE | | [facility] | | | | | SEDIMENT | | | | | | + + + + + + + | WBC | 2022-11-08 | [facility] | 6 | /hpf | (missing) | | (LEUKOCYTE) | 11:31 | Health | | | | | (#/HPF) IN | | System - | | | | | URINE | | [facility] | | | | | SEDIMENT | | | | | | + + + + + + + | | 2022-11-08 | [facility] | 6.2 | % | (missing) | | MONOCYTES/10 | 11:31 | Health | | | | | 0 LEUKOCYTES | | System - | | | | | IN BLOOD BY | | [facility] | | | | | AUTOMATED | | | | | | | COUNT | | | | | | + + + + + + + | | 2022-11-08 | [facility] | 6.2 | % | (missing) | | MONOCYTES/10 | 11:31 | Health | | | | | 0 LEUKOCYTES | | System - | | | | | IN BLOOD BY | | [facility] | | | | | AUTOMATED | | | | | | | COUNT | | | | | | + + + + + + + | | 2022-11-08 | [facility] | 62.5 | % | (missing) | | NEUTROPHILS/ | 11:31 | Health | | | | | 100 | | System - | | | | | LEUKOCYTES | | [facility] | | | | | IN BLOOD BY | | | | | | | AUTOMATED | | | | | | | COUNT | | | | | | + + + + + + + | | 2022-11-08 | [facility] | 62.5 | % | (missing) | | NEUTROPHILS/ | 11:31 | Health | | | | | 100 | | System - | | | | | LEUKOCYTES | | [facility] | | | | | IN BLOOD BY | | | | | | | AUTOMATED | | | | | | | COUNT | | | | | | + + + + + + + | PROTEIN | 2022-11-08 | [facility] | 7.3 | g/dl | (missing) | | (G/DL) IN | :31 | Health | | | | | SER/PLAS | | System - | | | | | | | [facility] | | | | + + + + + + + | PROTEIN | 2022-11-08 | [facility] | 7.3 | g/dl | (missing) | | (G/DL) IN | 11:31 | Health | | | | | SER/PLAS | | System - | | | | | | | [facility] | | | | + + + + + + + | BLOOD UREA | 2022-11-08 | [facility] | 8 | mg/dl | (missing) | | NITROGEN | 11:31 | Health | | | | | (BUN) | | System - | | | | | (MG/DL) IN | | [facility] | | | | | SER/PLAS | | | | | | + + + + + + + | BLOOD UREA | 2022-11-08 | [facility] | 8 | mg/dl | (missing) | | NITROGEN | 11:31 | Health | | | | | (BUN) | | System - | | | | | (MG/DL) IN | | [facility] | | | | | SER/PLAS | | | | | | + + + + + + + | PH OF URINE | 2022-11-08 | [facility] | 8.0 | (missing) | (missing) | | | 11:31 | Health | | | | | | | System - | | | | | | | [facility] | | | | + + + + + + + | PH OF URINE | 2022-11-08 | [facility] | 8.0 | (missing) | (missing) | | | 11:31 | Health | | | | | | | System - | | | | | | | [facility] | | | | + + + + + + + | NEUTROPHILS | 2022-11-08 | [facility] | 8.7 | k/mcl | (missing) | | (10*3/UL) | 11:31 | Health | | | | | IN BLOOD BY | | System - | | | | | AUTOMATED | | [facility] | | | | | COUNT | | | | | | + + + + + + + | NEUTROPHILS | 2022-11-08 | [facility] | 8.7 | k/mcl | (missing) | | (10*3/UL) | 11:31 | Health | | | | | IN BLOOD BY | | System - | | | | | AUTOMATED | | [facility] | | | | | COUNT | | | | | | + + + + + + + | ERYTHROCYTE | 2022-11-08 | [facility] | 87.1 | fl | (missing) | | MEAN | 11:31 | Health | | | | | CORPUSCULAR | | System - | | | | | VOLUME (FL) | | [facility] | | | | | BY AUTOMATED | | | | | | | COUNT | | | | | | + + + + + + + | ERYTHROCYTE | 2022-11-08 | [facility] | 87.1 | fl | (missing) | | MEAN | 11:31 | Health | | | | | CORPUSCULAR | | System - | | | | | VOLUME (FL) | | [facility] | | | | | BY AUTOMATED | | | | | | | COUNT | | | | | | + + + + + + + | CALCIUM | 2022-11-08 | [facility] | 9.2 | mg/dl | (missing) | | (MG/DL) IN | 11:31 | Health | | | | | SER/PLAS | | System - | | | | | | | [facility] | | | | + + + + + + + | CALCIUM | 2022-11-08 | [facility] | 9.2 | mg/dl | (missing) | | (MG/DL) IN | 11:31 | Health | | | | | SER/PLAS | | System - | | | | | | | [facility] | | | | + + + + + + + | PLATELET | 2022-11-08 | [facility] | 9.3 | fl | (missing) | | MEAN VOLUME | 11:31 | Health | | | | | (FL) IN | | System - | | | | | BLOOD BY | | [facility] | | | | | AUTOMATED | | | | | | | COUNT | | | | | | + + + + + + + | PLATELET | 2022-11-08 | [facility] | 9.3 | fl | (missing) | | MEAN VOLUME | 11:31 | Health | | | | | (FL) IN | | System - | | | | | BLOOD BY | | [facility] | | | | | AUTOMATED | | | | | | | COUNT | | | | | | + + + + + + + | ALKALINE | 2022-11-08 | [facility] | 90 | u/l | (missing) | | PHOSPHATASE | 11:31 | Health | | | | | (U/L) IN | | System - | | | | | SER/PLAS | | [facility] | | | | + + + + + + + | ALKALINE | 2022-11-08 | [facility] | 90 | u/l | (missing) | | PHOSPHATASE | 11:31 | Health | | | | | (U/L) IN | | System - | | | | | SER/PLAS | | [facility] | | | | + + + + + + + | GLUCOSE, | 2022-11-08 | [facility] | 99 | mg/dl | (missing) | | RANDOM | 11:31 | Health | | | | | (MG/DL) IN | | System - | | | | | SER/PLAS | | [facility] | | | | + + + + + + + | GLUCOSE, | 2022-11-08 | [facility] | 99 | mg/dl | (missing) | | RANDOM | 11:31 | Health | | | | | (MG/DL) IN | | System - | | | | | SER/PLAS | | [facility] | | | | + + + + + + + | CLARITY OF | 2022-11-08 | [facility] | Hazy | (missing) | (missing) | | URINE | 11:31 | Health | | | | | | | System - | | | | | | | [facility] | | | | + + + + + + + | CLARITY OF | 2022-11-08 | [facility] | Hazy | (missing) | (missing) | | URINE | 11:31 | Health | | | | | | | System - | | | | | | | [facility] | | | | + + + + + + + | | 2022-11-08 | [facility] | Negative | (missing) | (missing) | | BARBITURATES | 11:31 | Health | | | | | PRESENCE IN | | System - | | | | | URINE BY | | [facility] | | | | | SCREEN | | | | | | | METHOD | | | | | | + + + + + + + | | 2022-11-08 | [facility] | Negative | (missing) | (missing) | | BENZODIAZEPI | 11:31 | Health | | | | | SURYA | | System - | | | | | (PRESENCE) | | [facility] | | | | | IN URINE BY | | | | | | | SCREEN | | | | | | | METHOD | | | | | | + + + + + + + | BILIRUBIN, | 2022-11-08 | [facility] | Negative | (missing) | (missing) | | TOTAL | 11:31 | Health | | | | | PRESENCE IN | | System - | | | | | URINE | | [facility] | | | | + + + + + + + | COCAINE | 2022-11-08 | [facility] | Negative | (missing) | (missing) | | (PRESENCE) | 11:31 | Health | | | | | IN URINE BY | | System - | | | | | SCREEN | | [facility] | | | | | METHOD | | | | | | + + + + + + + | GLUCOSE IN | 2022-11-08 | [facility] | Negative | (missing) | (missing) | | URINE | 11:31 | Health | | | | | | | System - | | | | | | | [facility] | | | | + + + + + + + | HEMOGLOBIN | 2022-11-08 | [facility] | Negative | (missing) | (missing) | | PRESENCE IN | 11:31 | Health | | | | | URINE | | System - | | | | | | | [facility] | | | | + + + + + + + | KETONES IN | 2022-11-08 | [facility] | Negative | (missing) | (missing) | | URINE | 11:31 | Health | | | | | | | System - | | | | | | | [facility] | | | | + + + + + + + | METHADONE | 2022-11-08 | [facility] | Negative | (missing) | (missing) | | (PRESENCE) | 11:31 | Health | | | | | IN URINE BY | | System - | | | | | SCREEN | | [facility] | | | | | METHOD | | | | | | + + + + + + + | NITRITE | 2022-11-08 | [facility] | Negative | (missing) | (missing) | | PRESENCE IN | 11:31 | Health | | | | | URINE | | System - | | | | | | | [facility] | | | | + + + + + + + | OPIATES | 2022-11-08 | [facility] | Negative | (missing) | (missing) | | (PRESENCE) | 11:31 | Health | | | | | IN URINE BY | | System - | | | | | SCREEN | | [facility] | | | | | METHOD | | | | | | + + + + + + + | OXYCODONE | 2022-11-08 | [facility] | Negative | (missing) | (missing) | | (PRESENCE) | | Health | | | | | IN URINE BY | | System - | | | | | SCREEN | | [facility] | | | | | METHOD | | | | | | + + + + + + + | | 2022-11-08 | [facility] | Negative | (missing) | (missing) | | PHENCYCLIDIN | 11:31 | Health | | | | | E (PRESENCE) | | System - | | | | | IN URINE BY | | [facility] | | | | | SCREEN | | | | | | | METHOD | | | | | | + + + + + + + | THC | 2022-11-08 | [facility] | Negative | (missing) | (missing) | | (CANNABINOID | 11:31 | Health | | | | | ) IN URINE | | System - | | | | | BY SCREEN | | [facility] | | | | | METHOD | | | | | | + + + + + + + | TRICYCLIC | 2022-11-08 | [facility] | Negative | (missing) | (missing) | | ANTIDEPRESSA | 11:31 | Health | | | | | NTS | | System - | | | | | (PRESENCE) | | [facility] | | | | | IN URINE | | | | | | + + + + + + + | | 2022-11-08 | [facility] | Negative | (missing) | (missing) | | PHENCYCLIDIN | 11:31 | Health | | | | | E (PRESENCE) | | System - | | | | | IN URINE BY | | [facility] | | | | | SCREEN | | | | | | | METHOD | | | | | | + + + + + + + | THC | 2022-11-08 | [facility] | Negative | (missing) | (missing) | | (CANNABINOID | 11:31 | Health | | | | | ) IN URINE | | System - | | | | | BY SCREEN | | [facility] | | | | | METHOD | | | | | | + + + + + + + | OPIATES | 2022-11-08 | [facility] | Negative | (missing) | (missing) | | (PRESENCE) | :31 | Health | | | | | IN URINE BY | | System - | | | | | SCREEN | | [facility] | | | | | METHOD | | | | | | + + + + + + + | TRICYCLIC | 2022-11-08 | [facility] | Negative | (missing) | (missing) | | ANTIDEPRESSA | 11:31 | Health | | | | | NTS | | System - | | | | | (PRESENCE) | | [facility] | | | | | IN URINE | | | | | | + + + + + + + | AMPHETAMINE | 2022-11-08 | [facility] | Negative | (missing) | (missing) | | (PRESENCE) | 11:31 | Health | | | | | IN URINE BY | | System - | | | | | SCREEN | | [facility] | | | | | METHOD | | | | | | + + + + + + + | OXYCODONE | 2022-11-08 | [facility] | Negative | (missing) | (missing) | | (PRESENCE) | 11:31 | Health | | | | | IN URINE BY | | System - | | | | | SCREEN | | [facility] | | | | | METHOD | | | | | | + + + + + + + | BILIRUBIN, | 2022-11-08 | [facility] | Negative | (missing) | (missing) | | TOTAL | 11:31 | Health | | | | | PRESENCE IN | | System - | | | | | URINE | | [facility] | | | | + + + + + + + | BHCG QUAL | 2022-11-08 | [facility] | Negative | (missing) | (missing) | | (CHORIOGONAD | 11:31 | Health | | | | | OTROPIN) IN | | System - | | | | | SER/PLAS | | [facility] | | | | + + + + + + + | GLUCOSE IN | 2022-11-08 | [facility] | Negative | (missing) | (missing) | | URINE | 11:31 | Health | | | | | | | System - | | | | | | | [facility] | | | | + + + + + + + | COCAINE | 2022-11-08 | [facility] | Negative | (missing) | (missing) | | (PRESENCE) | 11:31 | Health | | | | | IN URINE BY | | System - | | | | | SCREEN | | [facility] | | | | | METHOD | | | | | | + + + + + + + | NITRITE | 2022-11-08 | [facility] | Negative | (missing) | (missing) | | PRESENCE IN | 11:31 | Health | | | | | URINE | | System - | | | | | | | [facility] | | | | + + + + + + + | KETONES IN | 2022-11-08 | [facility] | Negative | (missing) | (missing) | | URINE | 11:31 | Health | | | | | | | System - | | | | | | | [facility] | | | | + + + + + + + | | 2022-11-08 | [facility] | Negative | (missing) | (missing) | | BARBITURATES | 11:31 | Health | | | | | PRESENCE IN | | System - | | | | | URINE BY | | [facility] | | | | | SCREEN | | | | | | | METHOD | | | | | | + + + + + + + | | 2022-11-08 | [facility] | Negative | (missing) | (missing) | | BENZODIAZEPI | 11:31 | Health | | | | | SURYA | | System - | | | | | (PRESENCE) | | [facility] | | | | | IN URINE BY | | | | | | | SCREEN | | | | | | | METHOD | | | | | | + + + + + + + | METHADONE | 2022-11-08 | [facility] | Negative | (missing) | (missing) | | (PRESENCE) | 11:31 | Health | | | | | IN URINE BY | | System - | | | | | SCREEN | | [facility] | | | | | METHOD | | | | | | + + + + + + + | HEMOGLOBIN | 2022-11-08 | [facility] | Negative | (missing) | (missing) | | PRESENCE IN | 11:31 | Health | | | | | URINE | | System - | | | | | | | [facility] | | | | + + + + + + + | BHCG QUAL | 2022-11-08 | [facility] | Negative | (missing) | (missing) | | (CHORIOGONAD | 11:31 | Health | | | | | OTROPIN) IN | | System - | | | | | SER/PLAS | | [facility] | | | | + + + + + + + | AMPHETAMINE | 2022-11-08 | [facility] | Negative | (missing) | (missing) | | (PRESENCE) | 11:31 | Health | | | | | IN URINE BY | | System - | | | | | SCREEN | | [facility] | | | | | METHOD | | | | | | + + + + + + + | | 2022-11-08 | [facility] | Normal | mg/dl | (missing) | | UROBILINOGEN | 11:31 | Health | | | | | (MG/DL) IN | | System - | | | | | URINE BY | | [facility] | | | | | TEST STRIP | | | | | | + + + + + + + | | 2022-11-08 | [facility] | Normal | mg/dl | (missing) | | UROBILINOGEN | 11:31 | Health | | | | | (MG/DL) IN | | System - | | | | | URINE BY | | [facility] | | | | | TEST STRIP | | | | | | + + + + + + + | | 2022-11-08 | [facility] | Presumptive | (missing) | (missing) | | METHAMPHETAM | 11:31 | Health | Positive | | | | INE | | System - | | | | | (PRESENCE) | | [facility] | | | | | IN URINE BY | | | | | | | SCREEN | | | | | | | METHOD | | | | | | + + + + + + + | | 2022-11-08 | [facility] | Presumptive | (missing) | (missing) | | METHAMPHETAM | 11:31 | Health | Positive | | | | INE | | System - | | | | | (PRESENCE) | | [facility] | | | | | IN URINE BY | | | | | | | SCREEN | | | | | | | METHOD | | | | | | + + + + + + + | LEUKOCYTE | 2022-11-08 | [facility] | Trace | (missing) | (missing) | | ESTERASE | 11:31 | Health | | | | | PRESENCE IN | | System - | | | | | URINE BY | | [facility] | | | | | TEST STRIP | | | | | | + + + + + + + | MUCUS | 2022-11-08 | [facility] | Trace | (missing) | (missing) | | (#/HPF) IN | 11:31 | Health | | | | | URINE | | System - | | | | | SEDIMENT | | [facility] | | | | + + + + + + + | MUCUS | 2022-11-08 | [facility] | Trace | (missing) | (missing) | | (#/HPF) IN | 11:31 | Health | | | | | URINE | | System - | | | | | SEDIMENT | | [facility] | | | | + + + + + + + | LEUKOCYTE | 2022-11-08 | [facility] | Trace | (missing) | (missing) | | ESTERASE | 11:31 | Health | | | | | PRESENCE IN | | System - | | | | | URINE BY | | [facility] | | | | | TEST STRIP | | | | | | + + + + + + + | BACTERIA | 2022-11-08 | [facility] | Trace | /hpf | (missing) | | (#/HPF) IN | 11:31 | Health | | | | | URINE | | System - | | | | | | | [facility] | | | | + + + + + + + | BACTERIA | 2022-11-08 | [facility] | Trace | /hpf | (missing) | | (#/HPF) IN | 11:31 | Health | | | | | URINE | | System - | | | | | | | [facility] | | | | + + + + + + + | COLOR OF | 2022-11-08 | [facility] | Yellow | (missing) | (missing) | | URINE | 11:31 | Health | | | | | | | System - | | | | | | | [facility] | | | | + + + + + + + | COLOR OF | 2022-11-08 | [facility] | Yellow | (missing) | (missing) | | URINE | 11:31 | Health | | | | | | | System - | | | | | | | [facility] | | | | + + + + + + + + + | Result panel 88 | + + + + + + + + + | ADENOVIRUS | 2022-11-08 | [facility] | Not | (missing) | (missing) | | DETECTION BY | 11:32 | Health | Detected | | | | PCR | | System - | | | | | | | [facility] | | | | + + + + + + + | ABBITEGILLIAN | 2022-11-08 | [facility] | Not | (missing) | (missing) | | PARAPERTUSSI | 11:32 | Health | Detected | | | | S | | System - | | | | | | | [facility] | | | | + + + + + + + | BORDETELLA | 2022-11-08 | [facility] | Not | (missing) | (missing) | | PERTUSSIS | 11:32 | Health | Detected | | | | | | System - | | | | | | | [facility] | | | | + + + + + + + | | 2022-11-08 | [facility] | Not | (missing) | (missing) | | CHLAMYDOPHIL | 11:32 | Health | Detected | | | | A PNEUMONIAE | | System - | | | | | | | [facility] | | | | + + + + + + + | CORONAVIRUS | 2022-11-08 | [facility] | Not | (missing) | (missing) | | [address]E | 11:32 | Health | Detected | | | | | | System - | | | | | | | [facility] | | | | + + + + + + + | CORONAVIRUS | 2022-11-08 | [facility] | Not | (missing) | (missing) | | HKU1 | 11:32 | Health | Detected | | | | | | System - | | | | | | | [facility] | | | | + + + + + + + | CORONAVIRUS | 2022-11-08 | [facility] | Not | (missing) | (missing) | | NL63 | 11:32 | Health | Detected | | | | | | System - | | | | | | | [facility] | | | | + + + + + + + | CORONAVIRUS | 2022-11-08 | [facility] | Not | (missing) | (missing) | | OC43 | 11:32 | Health | Detected | | | | | | System - | | | | | | | [facility] | | | | + + + + + + + | INFLUENZA A | 2022-11-08 | [facility] | Not | (missing) | (missing) | | | 11:32 | Health | Detected | | | | | | System - | | | | | | | [facility] | | | | + + + + + + + | INFLUENZA B | 2022-11-08 | [facility] | Not | (missing) | (missing) | | | 11:32 | Health | Detected | | | | | | System - | | | | | | | [facility] | | | | + + + + + + + | | 2022-11-08 | [facility] | Not | (missing) | (missing) | | METAPNEUMOVI | 11:32 | Health | Detected | | | | KELVIN | | System - | | | | | | | [facility] | | | | + + + + + + + | MYCOPLASMA | 2022-11-08 | [facility] | Not | (missing) | (missing) | | PNEUMONIAE | 11:32 | Health | Detected | | | | PCR | | System - | | | | | | | [facility] | | | | + + + + + + + | | 2022-11-08 | [facility] | Not | (missing) | (missing) | | PARAINFLUENZ | 11:32 | Health | Detected | | | | A 1 | | System - | | | | | | | [facility] | | | | + + + + + + + | | 2022-11-08 | [facility] | Not | (missing) | (missing) | | PARAINFLUENZ | 11:32 | Health | Detected | | | | A 2 | | System - | | | | | | | [facility] | | | | + + + + + + + | | 2022-11-08 | [facility] | Not | (missing) | (missing) | | PARAINFLUENZ | 11:32 | Health | Detected | | | | A 3 | | System - | | | | | | | [facility] | | | | + + + + + + + | | 2022-11-08 | [facility] | Not | (missing) | (missing) | | PARAINFLUENZ | 11:32 | Health | Detected | | | | A 4 | | System - | | | | | | | [facility] | | | | + + + + + + + | | 2022-11-08 | [facility] | Not | (missing) | (missing) | | RHINOVIRUS/E | 11:32 | Health | Detected | | | | NTEROVIRUS | | System - | | | | | | | [facility] | | | | + + + + + + + | RSV | 2022-11-08 | [facility] | Not | (missing) | (missing) | | | 11:32 | Health | Detected | | | | | | System - | | | | | | | [facility] | | | | + + + + + + + | SARS-COV-2 | 2022-11-08 | [facility] | Not | (missing) | (missing) | | (COVID19) | 11:32 | Health | Detected | | | | BIOFIRE PCR | | System - | | | | | | | [facility] | | | | + + + + + + + | RSV | 2022-11-08 | [facility] | Not | (missing) | (missing) | | | 11:32 | Health | Detected | | | | | | System - | | | | | | | [facility] | | | | + + + + + + + | ADENOVIRUS | 2022-11-08 | [facility] | Not | (missing) | (missing) | | DETECTION BY | 11:32 | Health | Detected | | | | PCR | | System - | | | | | | | [facility] | | | | + + + + + + + | CORONAVIRUS | 2022-11-08 | [facility] | Not | (missing) | (missing) | | HKU1 | 11:32 | Health | Detected | | | | | | System - | | | | | | | [facility] | | | | + + + + + + + | CORONAVIRUS | 2022-11-08 | [facility] | Not | (missing) | (missing) | | NL63 | 11:32 | Health | Detected | | | | | | System - | | | | | | | [facility] | | | | + + + + + + + | CORONAVIRUS | 2022-11-08 | [facility] | Not | (missing) | (missing) | | 229E | 11:32 | Health | Detected | | | | | | System - | | | | | | | [facility] | | | | + + + + + + + | CORONAVIRUS | 2022-11-08 | [facility] | Not | (missing) | (missing) | | OC43 | 11:32 | Health | Detected | | | | | | System - | | | | | | | [facility] | | | | + + + + + + + | | 2022-11-08 | [facility] | Not | (missing) | (missing) | | METAPNEUMOVI | 11:32 | Health | Detected | | | | KELVIN | | System - | | | | | | | [facility] | | | | + + + + + + + | INFLUENZA A | 2022-11-08 | [facility] | Not | (missing) | (missing) | | | 11:32 | Health | Detected | | | | | | System - | | | | | | | [facility] | | | | + + + + + + + | INFLUENZA B | 2022-11-08 | [facility] | Not | (missing) | (missing) | | | 11:32 | Health | Detected | | | | | | System - | | | | | | | [facility] | | | | + + + + + + + | | 2022-11-08 | [facility] | Not | (missing) | (missing) | | [facility] | 11:32 | Health | Detected | | | | A 1 | | System - | | | | | | | [facility] | | | | + + + + + + + | | 2022-11-08 | [facility] | Not | (missing) | (missing) | | [facility] | 11:32 | Health | Detected | | | | A 2 | | System - | | | | | | | [facility] | | | | + + + + + + + | | 2022-11-08 | [facility] | Not | (missing) | (missing) | | [facility] | 11:32 | Health | Detected | | | | A 3 | | System - | | | | | | | [facility] | | | | + + + + + + + | | 2022-11-08 | [facility] | Not | (missing) | (missing) | | [facility] | 11:32 | Health | Detected | | | | A 4 | | System - | | | | | | | [facility] | | | | + + + + + + + | | 2022-11-08 | [facility] | Not | (missing) | (missing) | | RHINOVIRUS/E | 11:32 | Health | Detected | | | | NTEROVIRUS | | System - | | | | | | | [facility] | | | | + + + + + + + | MYCOPLASMA | 2022-11-08 | [facility] | Not | (missing) | (missing) | | PNEUMONIAE | 11:32 | Health | Detected | | | | PCR | | System - | | | | | | | [facility] | | | | + + + + + + + | | 2022-11-08 | [facility] | Not | (missing) | (missing) | | CHLAMYDOPHIL | 11:32 | Health | Detected | | | | A PNEUMONIAE | | System - | | | | | | | [facility] | | | | + + + + + + + | BORDETELLA | 2022-11-08 | [facility] | Not | (missing) | (missing) | | PERTUSSIS | 11:32 | Health | Detected | | | | | | System - | | | | | | | [facility] | | | | + + + + + + + | BORDETELLA | 2022-11-08 | [facility] | Not | (missing) | (missing) | | PARAPERTUSSI | 11:32 | Health | Detected | | | | S | | System - | | | | | | | [facility] | | | | + + + + + + + | SARS-COV-2 | 2022-11-08 | [facility] | Not | (missing) | (missing) | | (COVID19) | 11:32 | Health | Detected | | | | BIOFIRE PCR | | System - | | | | | | | [facility] | | | | + + + + + + + + + | Result panel 89 | + + + + + + + + + | | 2022-11-17 | [facility] | (missing) | (missing) | (missing) | | (unavailable | 08:41 | Health | | | | | ) | | System - | | | | | | | [facility] | | | | + + + + + + + | | 2022-11-17 | [facility] | BONES: | (missing) | (missing) | | (unavailable | 08:41 | Health | Normal. | | | | ) | | System - | | | | | | | [facility] | | | | + + + + + + + | | 2022-11-17 | [facility] | COMPARISON: | (missing) | (missing) | | (unavailable | 08:41 | Health | 09/15/2022 | | | | ) | | System - | and | | | | | | [facility] | 09/22/2022. | | | + + + + + + + | | 2022-11-17 | [facility] | Electronical | (missing) | (missing) | | (unavailable | 08:41 | Health | ly signed | | | | ) | | System - | by: Hira | | | | | | [facility] | MD Jennie | | | | | | | on 11/17/2022 | | | | | | | 4:26 PM at | | | | | | | workstation | | | | | | | [id number] | | | + + + + + + + | | 2022-11-17 | [facility] | FINDINGS: | (missing) | (missing) | | (unavailable | 08:41 | Health | | | | | ) | | System - | | | | | | | [facility] | | | | + + + + + + + | | 2022-11-17 | [facility] | HEART: | (missing) | (missing) | | (unavailable | 08:41 | Health | Normal in | | | | ) | | System - | size and | | | | | | [facility] | appearance. | | | + + + + + + + | | 2022-11-17 | [facility] | INDICATIONS: | (missing) | (missing) | | (unavailable | 08:41 | Health | Evaluate | | | | ) | | System - | for TB. | | | | | | [facility] | Asymptomatic | | | | | | | , but | | | | | | | require read | | | | | | | for | | | | | | | facility | | | | | | | placement. | | | + + + + + + + | | 2022-11-17 | [facility] | LUNGS: | (missing) | (missing) | | (unavailable | 08:41 | Health | Clear. No | | | | ) | | System - | focal | | | | | | [facility] | consolidatio | | | | | | | n. No | | | | | | | suspicious | | | | | | | lung | | | | | | | nodules. | | | + + + + + + + | | 2022-11-17 | [facility] | MEDIASTINUM: | (missing) | (missing) | | (unavailable | 08:41 | Health | Normal | | | | ) | | System - | mediastinal | | | | | | [facility] | contours | | | | | | | without | | | | | | | radiographic | | | | | | | evidence of | | | | | | | | | | | | | | lymphadenopa | | | | | | | thy. | | | + + + + + + + | | 2022-11-17 | [facility] | No | (missing) | (missing) | | (unavailable | 08:41 | Health | radiographic | | | | ) | | System - | evidence of | | | | | | [facility] | acute | | | | | | | cardiopulmon | | | | | | | cezar disease. | | | | | | | | | | + + + + + + + | | 2022-11-17 | [facility] | PLEURAL | (missing) | (missing) | | (unavailable | 08:41 | Health | SPACES: No | | | | ) | | System - | pleural | | | | | | [facility] | effusion or | | | | | | | pneumothorax | | | | | | | . | | | + + + + + + + | | 2022-11-17 | [facility] | PROCEDURE: | (missing) | (missing) | | (unavailable | 08:41 | Health | CHEST - TWO | | | | ) | | System - | VIEWS | | | | | | [facility] | | | | + + + + + + + | | 2022-11-17 | [facility] | | (missing) | (missing) | | (unavailable | 08:41 | Health | Procedure(s) | | | | ) | | System - | : * No | | | | | | [facility] | procedures | | | | | | | listed * | | | + + + + + + + Social History + + + + | date | description | facility | + + + + | 2020-06-24 17:42 | (unavailable) | [facility] - | | | | [place] | + + + + | 2020-11-07 14:59 | (unavailable) | [facility] - | | | | [place] | + + + + | 2020-06-28 00:00 | Unknown if ever smoked | [facility] | | | | [facility] | + + + + | 2020-06-29 00:00 | Unknown if ever smoked | [facility] | | | | [facility] | + + + + | 2020-07-04 00:00 | Unknown if ever smoked | [facility] | | | | [facility] | | | | Clinic | + + + + | 2020-07-05 00:00 | Unknown if ever smoked | [facility] | | | | [facility] | | | | Clinic | + + + + | 2020-07-06 00:00 | Unknown if ever smoked | (unavailable) | + + + + | 2020-07-08 00:00 | Current some day smoker | [facility] | | | | [place] | + + + + | 2020-07-11 00:00 | Unknown if ever smoked | [facility] | | | | [facility] | + + + + | 2020-07-12 00:00 | Unknown if ever smoked | (unavailable) | + + + + | 2020-07-12 00:00 | Unknown if ever smoked | [facility] | | | | [facility] | + + + + | 2021-04-26 00:00 | Tobacco smoking | [facility] | | | consumption unknown | [facility] | | | | Clinic | + + + + | 2021-05-23 00:00 | Tobacco smoking | [facility] | | | consumption unknown | [facility] | + + + + | 2021-05-24 00:00 | Tobacco smoking | [facility] | | | consumption unknown | [facility] | + + + + | 2021-05-25 00:00 | Tobacco smoking | [facility] | | | consumption unknown | [facility] | + + + + | 2021-08-03 00:00 | Tobacco smoking | [facility] | | | consumption unknown | [facility] | + + + + | 2021-08-04 00:00 | Tobacco smoking | [facility] | | | consumption unknown | [facility] | | | | Clinic | + + + + | 2021-08-09 00:00 | Tobacco smoking | [facility] | | | consumption unknown | [facility] | + + + + | 2021-08-16 00:00 | Tobacco smoking | [facility] | | | consumption unknown | [facility] | | | | Clinic | + + + + | 2021-08-30 00:00 | Tobacco smoking | [facility] | | | consumption unknown | [facility] | | | | Clinic | + + + + | 2021-09-29 00:00 | Tobacco smoking | [facility] | | | consumption unknown | [facility] | + + + + | 2021-10-02 00:00 | Tobacco smoking | [facility] | | | consumption unknown | [facility] | + + + + | 2021-10-03 00:00 | Tobacco smoking | [facility] | | | consumption unknown | [facility] | + + + + | 2021-10-06 00:00 | Tobacco smoking | [facility] | | | consumption unknown | [facility] | + + + + | 2021-10-29 00:00 | Tobacco smoking | [facility] | | | consumption unknown | [facility] | + + + + | 2021-11-02 00:00 | Tobacco smoking | [facility] | | | consumption unknown | [facility] | | | | Clinic | + + + + | 2021-11-05 00:00 | Tobacco smoking | [facility] | | | consumption unknown | [facility] | | | | Clinic | + + + + | 2021-11-08 00:00 | Tobacco smoking | [facility] | | | consumption unknown | [facility] | + + + + | 2021-11-12 00:00 | Tobacco smoking | [facility] | | | consumption unknown | [facility] | | | | Clinic | + + + + | 2021-11-12 00:00 | Tobacco smoking | [facility] | | | consumption unknown | [facility] | + + + + | 2021-11-12 00:00 | Occasional tobacco smoker | [facility] | | | | [place] | + + + + | 2021-11-13 00:00 | Tobacco smoking | [facility] | | | consumption unknown | [facility] | | | | Clinic | + + + + | 2021-11-13 00:00 | Tobacco smoking | [facility] | | | consumption unknown | [facility] | + + + + | 2021-11-14 00:00 | Tobacco smoking | [facility] | | | consumption unknown | [facility] | | | | Clinic | + + + + | 2021-11-15 00:00 | Tobacco smoking | [facility] | | | consumption unknown | [facility] | + + + + | 2021-11-16 00:00 | Tobacco smoking | [facility] | | | consumption unknown | [facility] | | | | Clinic | + + + + | 2021-11-16 00:00 | Tobacco smoking | [facility] | | | consumption unknown | [facility] | + + + + | 2021-11-19 00:00 | Tobacco smoking | [facility] | | | consumption unknown | [facility] | | | | Clinic | + + + + | 2021-11-19 00:00 | Tobacco smoking | [facility] | | | consumption unknown | [facility] | + + + + | 2021-11-20 00:00 | Occasional tobacco smoker | [facility] | | | | [facility] | + + + + | 2021-11-21 00:00 | Tobacco smoking | [facility] | | | consumption unknown | [facility] | | | | Clinic | + + + + | 2021-11-22 00:00 | Tobacco smoking | [facility] | | | consumption unknown | [facility] | | | | Clinic | + + + + | 2021-11-23 00:00 | Tobacco smoking | [facility] | | | consumption unknown | [facility] | | | | Clinic | + + + + | 2021-11-26 00:00 | Tobacco smoking | [facility] | | | consumption unknown | [facility] | | | | Clinic | + + + + | 2021-11-27 00:00 | Tobacco smoking | [facility] | | | consumption unknown | [facility] | | | | Clinic | + + + + | 2021-11-30 00:00 | Tobacco smoking | [facility] | | | consumption unknown | [facility] | | | | Clinic | + + + + | 2021-12-01 00:00 | Tobacco smoking | [facility] | | | consumption unknown | [facility] | + + + + | 2021-12-04 00:00 | Tobacco smoking | [facility] | | | consumption unknown | [facility] | | | | Clinic | + + + + | 2021-12-04 00:00 | Tobacco smoking | [facility] | | | consumption unknown | [facility] | + + + + | 2021-12-05 00:00 | Tobacco smoking | [facility] | | | consumption unknown | [facility] | | | | Clinic | + + + + | 2021-12-05 00:00 | Tobacco smoking | [facility] | | | consumption unknown | [facility] | + + + + | 2021-12-06 00:00 | Tobacco smoking | [facility] | | | consumption unknown | [facility] | | | | Clinic | + + + + | 2021-12-06 00:00 | Tobacco smoking | [facility] | | | consumption unknown | [facility] | + + + + | 2021-12-07 00:00 | Tobacco smoking | [facility] | | | consumption unknown | [facility] | | | | Clinic | + + + + | 2021-12-10 00:00 | Tobacco smoking | [facility] | | | consumption unknown | [facility] | | | | Clinic | + + + + | 2021-12-18 00:00 | Tobacco smoking | [facility] | | | consumption unknown | [facility] | | | | Clinic | + + + + | 2021-12-21 00:00 | Tobacco smoking | [facility] | | | consumption unknown | [facility] | | | | Clinic | + + + + | 2021-12-24 00:00 | Tobacco smoking | [facility] | | | consumption unknown | [facility] | | | | Clinic | + + + + | 2021-12-25 00:00 | Tobacco smoking | [facility] | | | consumption unknown | [facility] | + + + + | 2021-12-26 00:00 | Tobacco smoking | [facility] | | | consumption unknown | [facility] | + + + + | 2022-01-02 00:00 | Tobacco smoking | [facility] | | | consumption unknown | [facility] | | | | Clinic | + + + + | 2022-01-04 00:00 | Tobacco smoking | [facility] | | | consumption unknown | [facility] | | | | Clinic | + + + + | 2022-01-18 00:00 | Tobacco smoking | [facility] | | | consumption unknown | [facility] | | | | Clinic | + + + + | 2022-01-21 00:00 | Tobacco smoking | [facility] | | | consumption unknown | [facility] | + + + + | 2022-01-23 00:00 | Tobacco smoking | [facility] | | | consumption unknown | [facility] | | | | Clinic | + + + + | 2022-01-23 00:00 | Tobacco smoking | [facility] | | | consumption unknown | [facility] | + + + + | 2022-01-24 00:00 | Tobacco smoking | [facility] | | | consumption unknown | [facility] | | | | Clinic | + + + + | 2022-01-28 00:00 | Tobacco smoking | [facility] | | | consumption unknown | [facility] | | | | Clinic | + + + + | 2022-01-29 00:00 | Tobacco smoking | [facility] | | | consumption unknown | [facility] | + + + + | 2022-01-31 00:00 | Tobacco smoking | [facility] | | | consumption unknown | [facility] | | | | Clinic | + + + + | 2022-02-01 00:00 | Tobacco smoking | [facility] | | | consumption unknown | [facility] | + + + + | 2022-02-04 00:00 | Tobacco smoking | [facility] | | | consumption unknown | [facility] | | | | Clinic | + + + + | 2022-02-04 00:00 | Tobacco smoking | [facility] | | | consumption unknown | [facility] | + + + + | 2022-02-05 00:00 | Tobacco smoking | [facility] | | | consumption unknown | [facility] | | | | Clinic | + + + + | 2022-02-06 00:00 | Tobacco smoking | [facility] | | | consumption unknown | [facility] | | | | Clinic | + + + + | 2022-02-08 00:00 | Tobacco smoking | [facility] | | | consumption unknown | [facility] | | | | Clinic | + + + + | 2022-02-11 00:00 | Tobacco smoking | [facility] | | | consumption unknown | [facility] | + + + + | 2022-02-15 00:00 | Tobacco smoking | [facility] | | | consumption unknown | [facility] | | | | Clinic | + + + + | 2022-03-05 00:00 | Tobacco smoking | [facility] | | | consumption unknown | [facility] | | | | Clinic | + + + + | 2022-03-12 00:00 | Tobacco smoking | [facility] | | | consumption unknown | [facility] | | | | Clinic | + + + + | 2022-03-13 00:00 | Tobacco smoking | [facility] | | | consumption unknown | [facility] | | | | Clinic | + + + + | 2022-03-15 00:00 | Tobacco smoking | [facility] | | | consumption unknown | [facility] | | | | Clinic | + + + + | 2022-03-21 00:00 | Tobacco smoking | [facility] | | | consumption unknown | [facility] | | | | Clinic | + + + + | 2022-03-25 00:00 | Tobacco smoking | [facility] | | | consumption unknown | [facility] | | | | Clinic | + + + + | 2022-03-26 00:00 | Tobacco smoking | [facility] | | | consumption unknown | [facility] | | | | Clinic | + + + + | 2022-03-27 00:00 | Tobacco smoking | [facility] | | | consumption unknown | [facility] | | | | Clinic | + + + + | 2022-03-28 00:00 | Tobacco smoking | [facility] | | | consumption unknown | [facility] | | | | Clinic | + + + + | 2022-04-03 00:00 | Tobacco smoking | [place] [place] | | | consumption unknown | [facility] | | | | Clinic | + + + + | 2022-04-04 00:00 | Tobacco smoking | [facility] | | | consumption unknown | [facility] | | | | Clinic | + + + + | 2022-04-11 00:00 | Tobacco smoking | [facility] | | | consumption unknown | [facility] | | | | Clinic | + + + + | 2022-04-16 00:00 | Tobacco smoking | [facility] | | | consumption unknown | [facility] | | | | Clinic | + + + + | 2022-04-17 00:00 | Tobacco smoking | [facility] | | | consumption unknown | [facility] | | | | Clinic | + + + + | 2022-04-25 00:00 | Tobacco smoking | [facility] | | | consumption unknown | [facility] | | | | Clinic | + + + + | 2022-04-25 00:00 | Tobacco smoking | [facility] | | | consumption unknown | [facility] | + + + + | 2022-04-26 00:00 | Tobacco smoking | [facility] | | | consumption unknown | [facility] | | | | Clinic | + + + + | 2022-04-30 00:00 | Tobacco smoking | [facility] | | | consumption unknown | [facility] | + + + + | 2022-05-01 00:00 | Tobacco smoking | [facility] | | | consumption unknown | [facility] | | | | Clinic | + + + + | 2022-05-10 00:00 | Tobacco smoking | [facility] | | | consumption unknown | [facility] | | | | Clinic | + + + + | 2022-05-17 00:00 | Tobacco smoking | [facility] | | | consumption unknown | [facility] | | | | Clinic | + + + + | 2022-05-19 00:00 | Tobacco smoking | [facility] | | | consumption unknown | [facility] | + + + + | 2022-05-20 00:00 | Tobacco smoking | [facility] | | | consumption unknown | [facility] | | | | Clinic | + + + + | 2022-05-24 00:00 | Tobacco smoking | [facility] | | | consumption unknown | [facility] | | | | Clinic | + + + + | 2022-05-31 00:00 | Tobacco smoking | [facility] | | | consumption unknown | [facility] | | | | Clinic | + + + + | 2022-06-03 00:00 | Tobacco smoking | [facility] | | | consumption unknown | Dental | + + + + | 2022-06-04 00:00 | Current smoker | [facility] | | | | [facility] | | | | Clinic | + + + + | 2022-06-04 00:00 | Ex-smoker | [facility] | | | | 1 | + + + + | 2022-06-04 00:00 | Ex-smoker | [facility] | | | | [facility] | | | | Clinic | + + + + | 2022-06-04 00:00 | Ex-smoker | [facility] | | | | [facility] [place] | | | | Clinic | + + + + | 2022-06-04 00:00 | Ex-smoker | [facility] | | | | [facility] | + + + + | 2022-06-04 00:00 | Ex-smoker | [facility] | + + + + | 2022-06-04 00:00 | Ex-smoker | [facility] [place] | | | | [facility] | + + + + | 2022-06-04 00:00 | Ex-smoker | [facility] | | | | [facility] | | | | Clinic | + + + + | 2022-06-04 00:00 | Ex-smoker | [facility] | | | | [facility] [place] | | | | County | + + + + | 2022-06-04 00:00 | Ex-smoker | [facility] | | | | [facility] | + + + + | 2022-06-10 00:00 | Current smoker | [facility] | | | | [facility] | | | | Clinic | + + + + | 2022-06-11 00:00 | Current smoker | [facility] | | | | [facility] | | | | Clinic | + + + + | 2022-06-12 00:00 | Current smoker | [facility] | | | | [facility] | | | | Clinic | + + + + | 2022-06-13 00:00 | Current smoker | [facility] | | | | [facility] | | | | Clinic | + + + + | 2022-06-13 00:00 | Current smoker | [facility] | + + + + | 2022-06-14 00:00 | Current smoker | [facility] | | | | [facility] | + + + + | 2022-06-17 00:00 | Current smoker | [facility] | | | | [facility] | | | | Clinic | + + + + | 2022-06-18 00:00 | Current smoker | [facility] | | | | [facility] | | | | Clinic | + + + + | 2022-06-18 00:00 | Current smoker | [facility] | | | | [facility] | + + + + | 2022-06-19 00:00 | Current smoker | [facility] | | | | [facility] | | | | Clinic | + + + + | 2022-06-20 00:00 | Current smoker | [facility] | | | | [facility] [place] | | | | Clinic | + + + + | 2022-06-21 00:00 | Current smoker | [facility] | | | | [facility] [place] | | | | Clinic | + + + + | 2022-06-25 00:00 | Current smoker | [facility] | | | | [facility] | | | | Clinic | + + + + | 2022-06-26 00:00 | Current smoker | [facility] | | | | [facility] | | | | Clinic | + + + + | 2022-06-27 00:00 | Current smoker | [facility] | | | | [facility] | | | | Clinic | + + + + | 2022-06-28 00:00 | Current smoker | [facility] | | | | [facility] | | | | Clinic | + + + + | 2022-07-01 00:00 | Current smoker | [facility] | | | | [facility] | | | | Clinic | + + + + | 2022-07-02 00:00 | Current smoker | [facility] | | | | [facility] | | | | Clinic | + + + + | 2022-07-03 00:00 | Current smoker | [facility] | | | | [facility] | | | | Clinic | + + + + | 2022-07-04 00:00 | Current smoker | [facility] | | | | [facility] | | | | Clinic | + + + + | 2022-07-05 00:00 | Current smoker | [facility] | | | | [facility] | | | | Clinic | + + + + | 2022-07-08 00:00 | Current smoker | [facility] | | | | [facility] | | | | Clinic | + + + + | 2022-07-10 00:00 | Current smoker | [facility] | | | | [facility] | | | | Clinic | + + + + | 2022-07-18 00:00 | Current smoker | [facility] | | | | [facility] | | | | Clinic | + + + + | 2022-07-19 00:00 | Current smoker | [facility] | + + + + | 2022-07-22 00:00 | Current smoker | [facility] | | | | [facility] | | | | Clinic | + + + + | 2022-07-23 00:00 | Current smoker | [facility] | | | | [facility] | + + + + | 2022-07-24 00:00 | Current smoker | [facility] | | | | [facility] | | | | Clinic | + + + + | 2022-07-25 00:00 | Current smoker | [facility] | | | | [facility] | | | | Clinic | + + + + | 2022-07-26 00:00 | Current smoker | [facility] | | | | 1 | + + + + | 2022-07-26 00:00 | Current smoker | [facility] | | | | [facility] | | | | Clinic | + + + + | 2022-07-26 00:00 | Current smoker | [facility] | | | | [facility] | + + + + | 2022-07-29 00:00 | Current smoker | [facility] | | | | [facility] | | | | Clinic | + + + + | 2022-07-29 00:00 | Current smoker | [facility] | | | | [facility] | + + + + | 2022-07-29 00:00 | Current smoker | [facility] | | | | [facility] | | | | Clinic | + + + + | 2022-07-29 00:00 | Current smoker | [facility] | | | | [facility] | + + + + | 2022-07-30 00:00 | Current smoker | [facility] | | | | Behavioral [facility] | | | | Clinic | + + + + | 2022-07-30 00:00 | Current smoker | [facility] | | | | [facility] | | | | Clinic | + + + + | 2022-07-31 00:00 | Current smoker | [facility] | | | | [facility] | | | | Clinic | + + + + | 2022-07-31 00:00 | Current smoker | [facility] | | | | [facility] [place] | | | | County | + + + + | 2022-08-01 00:00 | Current smoker | [facility] | + + + + | 2022-08-02 00:00 | Current smoker | [facility] | | | | [facility] | | | | Clinic | + + + + | 2022-08-02 00:00 | Current smoker | [facility] | | | | [facility] [place] | | | | [facility] | + + + + | 2022-08-03 00:00 | Current smoker | [facility] | | | | [facility] | + + + + | 2022-08-05 00:00 | Current smoker | [facility] | | | | [facility] | | | | Clinic | + + + + | 2022-08-06 00:00 | Current smoker | [facility] | | | | [facility] | | | | Clinic | + + + + | 2022-08-07 00:00 | Current smoker | [facility] | | | | [facility] | | | | Clinic | + + + + | 2022-08-08 00:00 | Smokes tobacco daily | [facility] | | | | [facility] | | | | Clinic | + + + + | 2022-08-08 00:00 | Smokes tobacco daily | [facility] | | | | [facility] | + + + + | 2022-08-08 00:00 | Smokes tobacco daily | [facility] | + + + + | 2022-08-08 00:00 | Smokes tobacco daily | [facility] | | | | [facility] | | | | Clinic | + + + + | 2022-08-08 00:00 | Current smoker | [facility] | | | | [facility] | | | | Clinic | + + + + | 2022-08-12 00:00 | Smokes tobacco daily | [facility] | | | | [facility] | | | | Clinic | + + + + | 2022-08-13 00:00 | Smokes tobacco daily | [facility] | | | | [facility] | | | | Clinic | + + + + | 2022-08-14 00:00 | Smokes tobacco daily | [facility] | | | | [facility] | | | | Clinic | + + + + | 2022-08-15 00:00 | Smokes tobacco daily | [facility] | | | | [facility] | | | | Clinic | + + + + | 2022-08-16 00:00 | Smokes tobacco daily | [facility] | | | | [facility] | | | | Clinic | + + + + | 2022-08-19 00:00 | Smokes tobacco daily | [facility] | | | | [facility] | | | | Clinic | + + + + | 2022-08-20 00:00 | Smokes tobacco daily | [facility] | | | | [facility] | | | | Clinic | + + + + | 2022-08-21 00:00 | Smokes tobacco daily | [facility] | | | | [facility] | | | | Clinic | + + + + | 2022-08-23 00:00 | Smokes tobacco daily | [facility] | | | | [facility] | + + + + | 2022-08-26 00:00 | Smokes tobacco daily | [facility] | | | | [facility] | | | | Clinic | + + + + | 2022-08-26 00:00 | Smokes tobacco daily | [facility] | + + + + | 2022-08-28 00:00 | Smokes tobacco daily | [facility] | | | | [facility] | | | | Clinic | + + + + | 2022-08-28 00:00 | Smokes tobacco daily | [facility] | | | | [facility] | + + + + | 2022-08-30 00:00 | Smokes tobacco daily | [facility] | | | | [facility] [place] | | | | Clinic | + + + + | 2022-09-02 00:00 | Smokes tobacco daily | [facility] | | | | [facility] | | | | Clinic | + + + + | 2022-09-04 00:00 | Smokes tobacco daily | [facility] | + + + + | 2022-09-06 00:00 | Smokes tobacco daily | [facility] | + + + + | 2022-09-07 00:00 | Smokes tobacco daily | [facility] | | | | [facility] | | | | Clinic | + + + + | 2022-09-10 00:00 | Current smoker | [facility] | | | | [facility] | | | | Clinic | + + + + | 2022-09-10 00:00 | Ex-smoker | [facility] | | | | 1 | + + + + | 2022-09-10 00:00 | Ex-smoker | [facility] | | | | [facility] | | | | Clinic | + + + + | 2022-09-10 00:00 | Ex-smoker | [facility] | + + + + | 2022-09-11 00:00 | Current smoker | [facility] | | | | [facility] | | | | Clinic | + + + + | 2022-09-12 00:00 | Current smoker | [facility] | | | | [facility] | | | | Clinic | + + + + | 2022-09-12 00:00 | Current smoker | [facility] | + + + + | 2022-09-13 00:00 | Current smoker | [facility] | | | | [facility] | | | | Clinic | + + + + | 2022-09-16 00:00 | Current smoker | [facility] | | | | [facility] | | | | Clinic | + + + + | 2022-09-18 00:00 | Current smoker | [facility] | | | | [facility] | | | | Clinic | + + + + | 2022-09-19 00:00 | Current smoker | [facility] | | | | [facility] [place] | | | | Clinic | + + + + | 2022-09-27 00:00 | Current smoker | [facility] | + + + + | 2022-10-01 00:00 | Current smoker | [facility] | | | | 1 | + + + + | 2022-10-01 00:00 | Current smoker | [facility] | | | | [facility] | | | | Clinic | + + + + | 2022-10-03 00:00 | Current smoker | [facility] | | | | [facility] | | | | Clinic | + + + + | 2022-10-04 00:00 | Current smoker | [facility] | | | | [facility] | | | | Clinic | + + + + | 2022-10-04 00:00 | Current smoker | [facility] | + + + + | 2022-10-07 00:00 | Current smoker | [facility] | | | | [facility] | | | | Clinic | + + + + | 2022-10-08 00:00 | Occasional tobacco smoker | [facility] | | | | [facility] | | | | Clinic | + + + + | 2022-10-08 00:00 | Occasional tobacco smoker | [facility] | | | | [facility] | | | | Clinic | + + + + | 2022-10-08 00:00 | Occasional tobacco smoker | [facility] | | | | [facility] | + + + + | 2022-10-08 00:00 | Occasional tobacco smoker | [facility] | + + + + | 2022-10-08 00:00 | Occasional tobacco smoker | [facility] | | | | [facility] | | | | Clinic | + + + + | 2022-10-08 00:00 | Occasional tobacco smoker | [facility] | | | | [facility] | | | | Clinic | + + + + | 2022-10-08 00:00 | Occasional tobacco smoker | [facility] | + + + + | 2022-10-09 00:00 | Occasional tobacco smoker | [facility] | | | | [facility] | | | | Clinic | + + + + | 2022-10-10 00:00 | Occasional tobacco smoker | [facility] | | | | [facility] | | | | Clinic | + + + + | 2022-10-11 00:00 | Occasional tobacco smoker | [facility] | | | | [facility] | | | | Clinic | + + + + | 2022-10-11 00:00 | Occasional tobacco smoker | [facility] | | | | [facility] | + + + + | 2022-10-14 00:00 | Occasional tobacco smoker | [facility] | | | | [facility] | + + + + | 2022-10-17 00:00 | Occasional tobacco smoker | [facility] | | | | [facility] | | | | Clinic | + + + + | 2022-10-21 00:00 | Current smoker | [facility] | + + + + | 2022-10-22 00:00 | Occasional tobacco smoker | [facility] | | | | [facility] | | | | Clinic | + + + + | 2022-10-23 00:00 | Occasional tobacco smoker | [facility] | | | | [facility] | | | | Clinic | + + + + | 2022-10-24 00:00 | Occasional tobacco smoker | [facility] | | | | [facility] | | | | Clinic | + + + + | 2022-10-25 00:00 | Occasional tobacco smoker | [facility] | | | | [facility] | | | | Clinic | + + + + | 2022-11-01 00:00 | Occasional tobacco smoker | [facility] | | | | [facility] | | | | Clinic | + + + + | 2022-11-04 00:00 | Occasional tobacco smoker | [facility] | | | | [facility] | | | | Clinic | + + + + | 2022-11-04 00:00 | Occasional tobacco smoker | [facility] | + + + + | 2022-11-05 00:00 | Occasional tobacco smoker | [facility] | | | | [facility] | | | | Clinic | + + + + | 2022-11-06 00:00 | Occasional tobacco smoker | [facility] | | | | [facility] | | | | Clinic | + + + + | 2022-11-06 00:00 | Occasional tobacco smoker | [facility] | + + + + | 2022-11-08 00:00 | Occasional tobacco smoker | [facility] | | | | [facility] | | | | Clinic | + + + + | 2022-11-11 00:00 | Occasional tobacco smoker | [facility] | | | | [facility] | | | | Clinic | + + + + | 2022-11-12 00:00 | Occasional tobacco smoker | [facility] | | | | [facility] | | | | Clinic | + + + + | 2022-11-13 00:00 | Occasional tobacco smoker | [facility] | | | | [facility] | | | | Clinic | + + + + | 2022-11-13 00:00 | Occasional tobacco smoker | [facility] | | | | [facility] | + + + + | 2022-11-14 00:00 | Occasional tobacco smoker | [facility] | | | | [facility] | | | | Clinic | + + + + | 2022-11-18 00:00 | Occasional tobacco smoker | [facility] | + + + + | 2022-11-19 00:00 | Occasional tobacco smoker | [facility] | | | | [facility] | | | | Clinic | + + + + | 2022-11-20 00:00 | Occasional tobacco smoker | [facility] | | | | [facility] | | | | Clinic | + + + + | 2022-11-22 00:00 | Occasional tobacco smoker | [facility] | | | | [facility] | | | | Clinic | + + + + | 2022-11-25 00:00 | Occasional tobacco smoker | [facility] | | | | [facility] | | | | Clinic | + + + + | 2022-11-25 00:00 | Occasional tobacco smoker | [facility] | | | | [facility] | | | | Clinic | + + + + | 2022-12-02 00:00 | Occasional tobacco smoker | [facility] | | | | [facility] | | | | Clinic | + + + + | 2022-12-06 00:00 | Occasional tobacco smoker | [facility] | | | | [facility] | | | | Clinic | + + + + | 2022-12-13 00:00 | Occasional tobacco smoker | [facility] | + + + + Vital Signs + + +---------+---------+ | date | measurement | value | units | + + +---------+---------+ | 2020-07-08 00:00 | BMI | 28.32 | kg/m2 | + + +---------+---------+ | 2020-07-08 00:00 | BP_diastolic | 97 | mmHg | + + +---------+---------+ | 2020-07-08 00:00 | BP_systolic | 141 | mmHg | + + +---------+---------+ | 2020-07-08 00:00 | heart_rate | 106 | /min | + + +---------+---------+ | 2020-07-08 00:00 | height_metric | 162.6 | cm | + + +---------+---------+ | 2020-07-08 00:00 | height_standard | 64.02 | in | + + +---------+---------+ | 2020-07-08 00:00 | o2_saturation | 95 | % | + + +---------+---------+ | 2020-07-08 00:00 | respiration_rate | 18 | /min | + + +---------+---------+ | 2020-07-08 00:00 | temperature_metric | 36.89 | C | | | | | | + + +---------+---------+ | 2020-07-08 00:00 | | 98.4 | F | | | temperature_standar | | | | | d | | | + + +---------+---------+ | 2020-07-08 00:00 | weight_metric | 74.84 | kg | + + +---------+---------+ | 2020-07-08 00:00 | weight_standard | 165 | lb | + + +---------+---------+ | 2021-11-02 00:00 | BMI | 23.52 | kg/m2 | + + +---------+---------+ | 2021-11-02 00:00 | height_metric | 162.6 | cm | + + +---------+---------+ | 2021-11-02 00:00 | height_standard | 64.02 | in | + + +---------+---------+ | 2021-11-02 00:00 | weight_metric | 62.14 | kg | + + +---------+---------+ | 2021-11-02 00:00 | weight_standard | 137 | lb | + + +---------+---------+ | 2021-11-19 00:00 | BMI | 25.75 | kg/m2 | + + +---------+---------+ | 2021-11-19 00:00 | BP_diastolic | 80 | mmHg | + + +---------+---------+ | 2021-11-19 00:00 | BP_systolic | 119 | mmHg | + + +---------+---------+ | 2021-11-19 00:00 | heart_rate | 103 | /min | + + +---------+---------+ | 2021-11-19 00:00 | o2_saturation | 98 | % | + + +---------+---------+ | 2021-11-19 00:00 | temperature_metric | 36.89 | C | | | | | | + + +---------+---------+ | 2021-11-19 00:00 | | 98.4 | F | | | temperature_standar | | | | | d | | | + + +---------+---------+ | 2021-11-19 00:00 | weight_metric | 68.04 | kg | + + +---------+---------+ | 2021-11-19 00:00 | weight_standard | 150 | lb | + + +---------+---------+ | 2022-08-08 00:00 | BMI | 31.14 | kg/m2 | + + +---------+---------+ | 2022-08-08 00:00 | BP_diastolic | 85 | mmHg | + + +---------+---------+ | 2022-08-08 00:00 | BP_systolic | 121 | mmHg | + + +---------+---------+ | 2022-08-08 00:00 | heart_rate | 87 | /min | + + +---------+---------+ | 2022-08-08 00:00 | height_metric | 162.6 | cm | + + +---------+---------+ | 2022-08-08 00:00 | height_standard | 64.02 | in | + + +---------+---------+ | 2022-08-08 00:00 | o2_saturation | 98 | % | + + +---------+---------+ | 2022-08-08 00:00 | respiration_rate | 16 | /min | + + +---------+---------+ | 2022-08-08 00:00 | weight_metric | 82.28 | kg | + + +---------+---------+ | 2022-08-08 00:00 | weight_standard | 181.4 | lb | + + +---------+---------+ | 2022-09-10 00:00 | BMI | 31.69 | kg/m2 | + + +---------+---------+ | 2022-09-10 00:00 | BP_diastolic | 87 | mmHg | + + +---------+---------+ | 2022-09-10 00:00 | BP_systolic | 127 | mmHg | + + +---------+---------+ | 2022-09-10 00:00 | heart_rate | 97 | /min | + + +---------+---------+ | 2022-09-10 00:00 | height_metric | 162.6 | cm | + + +---------+---------+ | 2022-09-10 00:00 | height_standard | 64.02 | in | + + +---------+---------+ | 2022-09-10 00:00 | o2_saturation | 98 | % | + + +---------+---------+ | 2022-09-10 00:00 | respiration_rate | 16 | /min | + + +---------+---------+ | 2022-09-10 00:00 | temperature_metric | 36.78 | C | | | | | | + + +---------+---------+ | 2022-09-10 00:00 | | 98.2 | F | | | temperature_standar | | | | | d | | | + + +---------+---------+ | 2022-09-10 00:00 | weight_metric | 83.73 | kg | + + +---------+---------+ | 2022-09-10 00:00 | weight_standard | 184.6 | lb | + + +---------+---------+ | 2022-10-08 00:00 | BMI | 33.47 | kg/m2 | + + +---------+---------+ | 2022-10-08 00:00 | BP_diastolic | 70 | mmHg | + + +---------+---------+ | 2022-10-08 00:00 | BP_systolic | 124 | mmHg | + + +---------+---------+ | 2022-10-08 00:00 | heart_rate | 110 | /min | + + +---------+---------+ | 2022-10-08 00:00 | height_metric | 162.6 | cm | + + +---------+---------+ | 2022-10-08 00:00 | height_standard | 64.02 | in | + + +---------+---------+ | 2022-10-08 00:00 | o2_saturation | 96 | % | + + +---------+---------+ | 2022-10-08 00:00 | temperature_metric | 36.78 | C | | | | | | + + +---------+---------+ | 2022-10-08 00:00 | | 98.2 | F | | | temperature_standar | | | | | d | | | + + +---------+---------+ | 2022-10-08 00:00 | weight_metric | 88.45 | kg | + + +---------+---------+ | 2022-10-08 00:00 | weight_standard | 195 | lb | + + +---------+---------+"
--- OUTSIDE RECORDS SUMMARY | ~2022-12-19 | XMS | Continuity of Care Document ---
Demographics + + + | Address | [facility] ([facility]) | | | [place] [address] | + + + | Preferred Language | Unknown | + + + | Marital Status | Never | + + + | Confucianism Affiliation | Unknown | + + + | Race | White | + + + | Ethnic Group | Not or | + + + Author + + + | Author | [facility] | + + + | Organization | [facility] | + + + | Address | [address] [facility] | | | [place] [address] | + + + | Phone | | + + + Care Team Providers + + + + | Care Piano Case Maker Name | Role | Phone | + [...] - | | | | | | [place] | | | + + + + + + | (no date) | NO KNOWN | [facility] | (no reaction) | (no severity) | | | ALLERGIES | [facility] | | | | | [place] | | | + + + + + + | (no date) | NO KNOWN | [facility] | (no reaction) | (no severity) | | | ALLERGIES | [facility] - | | | | | | [place] | | | + + + + + + Encounters No information. Functional Status No information. Immunizations No information. Medications + + + + | date | description | facility | + + + + | 2022-06-19 00:00 | ondansetron 4 mg oral | [facility] | | | tablet [zofran] | [facility] | | | | Clinic | + + + + | 2022-05-30 00:00 | atropine sulfate 1 % | [facility] | | | ophthalmic solution | [facility] | | | | Clinic | + + + + | 2022-05-30 00:00 | atropine sulfate 1 % | [facility] | | | ophthalmic solution | [facility] | | | | Clinic | + + + + | 2022-05-30 00:00 | atropine sulfate 1 % | [facility] | | | ophthalmic solution | [facility] | + + + + | 2022-05-30 00:00 | atropine sulfate 1 % | [facility] | | | ophthalmic solution | | + + + + | 2022-05-30 00:00 | atropine sulfate 1 % | [facility] | | | ophthalmic solution | Dental | + + + + | 2022-07-26 00:00 | atropine sulfate 1 % | [facility] | | | ophthalmic solution | 1 | + + + + | 2022-07-26 00:00 | atropine sulfate 1 % | [facility] | | | ophthalmic solution | [facility] | | | | Clinic | + + + + | 2022-07-26 00:00 | atropine sulfate 1 % | [facility] | | | ophthalmic solution | [facility] | | | | Clinic | + + + + | 2022-07-26 00:00 | atropine sulfate 1 % | [facility] | | | ophthalmic solution | [facility] | + + + + | 2022-07-26 00:00 | atropine sulfate 1 % | [facility] | | | ophthalmic solution | | + + + + | 2022-07-26 00:00 | atropine sulfate 1 % | [facility] | | | ophthalmic solution | [facility] | | | | Clinic | + + + + | 2022-07-26 00:00 | atropine sulfate 1 % | [facility] | | | ophthalmic solution | [facility] | | | | County | + + + + | 2022-07-26 00:00 | atropine sulfate 1 % | [facility] | | | ophthalmic solution | [facility] | | | | Clinic | + + + + | 2022-07-26 00:00 | atropine sulfate 1 % | [facility] | | | ophthalmic solution | [facility] | + + + + | 2022-07-26 00:00 | atropine sulfate 1 % | [facility] | | | ophthalmic solution | | + + + + | 2022-11-26 00:00 | abilify maintena 400 mg | [facility] | | | extended release prefilled | [facility] | | | syringe | Clinic | + + + + | 2022-11-26 00:00 | abilify maintena 400 mg | [facility] | | | extended release prefilled | [facility] | | | syringe | Clinic | + + + + | 2022-08-16 00:00 | abilifmatthew maintena 400 mg | [facility] | | | injection | 1 | + + + + | 2022-08-16 00:00 | abilify maintena 400 mg | [facility] | | | injection | [facility] | | | | Clinic | + + + + | 2022-08-16 00:00 | abilify maintena 400 mg | [facility] | | | injection | [facility] | | | | Clinic | + + + + | 2022-08-16 00:00 | abilify maintena 400 mg | [facility] | | | injection | [facility] | + + + + | 2022-08-16 00:00 | abilifmatthew maintena 400 mg | [facility] | | | injection | | + + + + | 2022-08-16 00:00 | abizackfmatthew maintena 400 mg | [facility] | | | injection | [facility] | | | | Clinic | + + + + | 2022-08-16 00:00 | abilifmatthew maintena 400 mg | [facility] | | | injection | [facility] | | | | Clinic | + + + + | 2022-06-26 00:00 | clozapine 100 mg oral | [facility] | | | tablet | [facility] | | | | Clinic | + + + + | 2022-06-26 00:00 | clozapine 100 mg oral | [facility] | | | tablet | [facility] | | | | Clinic | + + + + | 2022-06-26 00:00 | clozapine 100 mg oral | [facility] | | | tablet | [facility] | + + + + | 2022-06-26 00:00 | clozapine 100 mg oral | [facility] | | | tablet | | + + + + | 2022-07-26 00:00 | clozapine 100 mg oral | [facility] | | | tablet | [facility] | | | | Clinic | + + + + | 2022-07-26 00:00 | clozapine 100 mg oral | [facility] | | | tablet | [facility] | + + + + | 2022-07-26 00:00 | clozapine 100 mg oral | [facility] | | | tablet | | + + + + | 2022-07-26 00:00 | clozapine 100 mg oral | [facility] | | | tablet | [facility] | | | | Clinic | + + + + | 2022-07-26 00:00 | clozapine 100 mg oral | [facility] | | | tablet | [facility] | | | | [facility] | + + + + | 2022-07-26 00:00 | clozapine 100 mg oral | [facility] | | | tablet | [facility] | + + + + | 2022-06-12 00:00 | clozapine 25 mg oral | [facility] | | | tablet | [facility] | | | | Clinic | + + + + | 2022-06-12 00:00 | clozapine 25 mg oral | [facility] | | | tablet | [facility] | + + + + | 2022-06-12 00:00 | clozapine 25 mg oral | [facility] | | | tablet | Dental | + + + + | 2022-06-19 00:00 | clozapine 25 mg oral | [facility] | | | tablet | [facility] | | | | Clinic | + + + + | 2022-06-19 00:00 | clozapine 25 mg oral | [facility] | | | tablet | [facility] | | | | Clinic | + + + + | 2022-11-25 00:00 | clozapine 25 mg oral | [facility] | | | tablet | [facility] | | | | Clinic | + + + + | 2022-11-25 00:00 | clozapine 25 mg oral | [facility] | | | tablet | [facility] | | | | Clinic | + + + + | 2022-11-25 00:00 | clozapine 25 mg oral | [facility] | | | tablet | [facility] | | | | Clinic | + + + + | 2022-10-10 00:00 | nicotine 7 mg per 24hr 1 | [facility] | | | day transdermal patch | [facility] | | | | Clinic | + + + + | 2022-10-10 00:00 | nicotine 7 mg per 24hr 1 | [facility] | | | day transdermal patch | [facility] | | | | Clinic | + + + + | 2022-10-10 00:00 | nicotine 7 mg per 24hr 1 | [facility] | | | day transdermal patch | [facility] | + + + + | 2022-10-10 00:00 | nicotine 7 mg per 24hr 1 | [facility] | | | day transdermal patch | | + + + + | 2022-10-10 00:00 | nicotine 7 mg per 24hr 1 | [facility] | | | day transdermal patch | [facility] | | | | Clinic | + + + + | 2022-10-10 00:00 | nicotine 7 mg per 24hr 1 | [facility] | | | day transdermal patch | [facility] | | | | Clinic | + + + + | 2022-10-10 00:00 | nicotine 7 mg per 24hr 1 | [facility] | | | day transdermal patch | | + + + + | 2022-06-19 00:00 | ondansetron 4 mg oral | [facility] | | | tablet | [facility] | | | | Clinic | + + + + | 2020-07-03 00:00 | olanzapine 2.5 mg oral | [facility] | | | tablet | [facility] | + + + + | 2022-08-08 00:00 | famotidine 40 mg oral | [facility] | | | tablet | 1 | + + + + | 2022-08-08 00:00 | famotidine 40 mg oral | [facility] | | | tablet | [facility] | | | | Clinic | + + + + | 2022-08-08 00:00 | famotidine 40 mg oral | [facility] | | | tablet | [facility] | + + + + | 2022-08-08 00:00 | famotidine 40 mg oral | [facility] | | | tablet | | + + + + | 2022-11-04 00:00 | famotidine 40 mg oral | [facility] | | | tablet | [facility] | | | | Clinic | + + + + | 2022-11-04 00:00 | famotidine 40 mg oral | [facility] | | | tablet | [facility] | | | | Clinic | + + + + | 2022-11-04 00:00 | famotidine 40 mg oral | [facility] | | | tablet | [facility] | + + + + | 2022-11-04 00:00 | famotidine 40 mg oral | [facility] | | | tablet | | + + + + | 2022-11-04 00:00 | famotidine 40 mg oral | [facility] | | | tablet | [facility] | | | | Clinic | + + + + | 2022-11-04 00:00 | famotidine 40 mg oral | [facility] | | | tablet | [facility] | | | | Clinic | + + + + | 2022-11-04 00:00 | famotidine 40 mg oral | [facility] | | | tablet | | + + + + | 2021-10-17 00:00 | quetiapine 25 mg oral | [facility] | | | tablet | [place] | + + + + | 2022-05-30 00:00 | sennosides, detention 8.6 mg | [facility] | | | oral tablet | [facility] | | | | Clinic | + + + + | 2021-10-18 00:00 | 24 hr venlafaxine 150 mg | [facility] | | | extended release oral | [place] | | | capsule | | + + + + | 2021-11-13 00:00 | 24 hr venlafaxine 150 mg | [facility] | | | extended release oral | [facility] | | | capsule | | + + + + | 2022-10-23 00:00 | 24 hr venlafaxine 150 mg | [facility] | | | extended release oral | [facility] | | | capsule | Clinic | + + + + | 2022-10-23 00:00 | 24 hr venlafaxine 150 mg | [facility] | | | extended release oral | [facility] | | | capsule | Clinic | + + + + | 2022-10-23 00:00 | 24 hr venlafaxine 150 mg | [facility] | | | extended release oral | [facility] | | | capsule | | + + + + | 2022-10-23 00:00 | 24 hr venlafaxine 150 mg | [facility] | | | extended release oral | | | | capsule | | + + + + | 2022-10-23 00:00 | 24 hr venlafaxine 150 mg | [facility] | | | extended release oral | [facility] | | | capsule | Clinic | + + + + | 2022-10-23 00:00 | 24 hr venlafaxine 150 mg | [facility] | | | extended release [...] | 24 hr venlafaxine 75 mg | [facility] | | | extended release oral | [facility] | | | capsule | | + + + + | 2022-10-03 00:00 | 24 hr venlafaxine 75 mg | [facility] | | | extended release oral | [facility] | | | capsule | Clinic | + + + + | 2022-10-03 00:00 | 24 hr venlafaxine 75 mg | [facility] | | | extended release oral | [facility] | | | capsule | | + + + + | 2022-10-03 00:00 | 24 hr venlafaxine 75 mg | [facility] | | | extended release oral | | | | capsule | | + + + + | 2022-10-22 00:00 | 24 hr venlafaxine 75 mg | [facility] | | | extended release oral | [facility] | | | capsule | Clinic | + + + + | 2020-07-03 00:00 | olanzapine 10 mg oral | [facility] | | | tablet | [place] | + + + + | 2021-11-13 00:00 | aripiprazole 15 mg oral | [facility] | | | tablet | [place] | + + + + | 2015-06-16 00:00 | Drug or medicament | [facility] | | | (substance) | [place] | + + + + | 2022-02-06 00:00 | clozapine 50 mg oral | [facility] | | | tablet | [facility] | | | | Clinic | + + + + | 2022-02-06 00:00 | clozapine 50 mg oral | [facility] | | | tablet | Dental | + + + + | 2022-02-06 00:00 | clozapine 50 mg oral | [facility] | | | tablet | [facility] | | | | Clinic | + + + + | 2022-02-06 00:00 | clozapine 50 mg oral | [facility] | | | tablet | [facility] | | | | Clinic | + + + + | 2022-02-06 00:00 | clozapine 50 mg oral | [facility] | | | tablet | [facility] | + + + + | 2022-06-04 00:00 | clozapine 50 mg oral | [facility] | | | tablet | [facility] | | | | Clinic | + + + + | 2022-09-10 00:00 | clozapine 50 mg oral | [facility] | | | tablet | 1 | + + + + | 2022-09-10 00:00 | clozapine 50 mg oral | [facility] | | | tablet | [facility] | | | | Clinic | + + + + | 2022-09-10 00:00 | clozapine 50 mg oral | [facility] | | | tablet | | + + + + | 2022-10-03 00:00 | clozapine 50 mg oral | [facility] | | | tablet | [facility] | | | | Clinic | + + + + | 2022-10-03 00:00 | clozapine 50 mg oral | [facility] | | | tablet | [facility] | | | | Clinic | + + + + | 2022-10-03 00:00 | clozapine 50 mg oral | [facility] | | | tablet | [facility] | + + + + | 2022-10-03 00:00 | clozapine 50 mg oral | [facility] | | | tablet | | + + + + | 2022-10-03 00:00 | clozapine 50 mg oral | [facility] | | | tablet | [facility] | | | | Clinic | + + + + | 2022-10-03 00:00 | clozapine 50 mg oral | [facility] | | | tablet | [facility] | | | | Clinic | + + + + | 2022-10-03 00:00 | clozapine 50 mg oral | [facility] | | | tablet | | + + + + | 2022-10-03 00:00 | effexor xr 75 mg 24hr | [facility] | | | extended release oral | [facility] | | | capsule | Clinic | + + + + | 2022-10-03 00:00 | effexor xr 75 mg 24hr | [facility] | | | extended release oral | [facility] | | | capsule | | + + + + | 2022-10-03 00:00 | effexor xr 75 mg 24hr | [facility] | | | extended release oral | | | | capsule | | + + + + | 2022-10-22 00:00 | effexor xr 75 mg 24hr | [facility] | | | extended release oral | [facility] | | | capsule | Clinic | + + + + | 2021-11-13 00:00 | effexor xr 150 mg 24 hr | [facility] | | | extended release oral | [facility] | | | capsule | | + + + + | 2022-05-30 00:00 | senna-time 8.6 mg oral | [facility] | | | tablet | [facility] | | | | Clinic | + + + + | 2022-02-04 00:00 | venlafaxine hcl 150 mg | [facility] | | | 24hr extended release oral | [facility] | | | tablet | Clinic | + + + + | 2022-02-04 00:00 | venlafaxine hcl 150 mg | [facility] | | | 24hr extended release oral | [facility] | | | tablet | Clinic | + + + + | 2022-02-04 00:00 | venlafaxine hcl 150 mg | [facility] | | | 24hr extended release oral | [facility] | | | tablet | | + + + + | 2022-04-17 00:00 | venlafaxine hcl 150 mg | [facility] | | | 24hr extended release oral | [facility] | | | tablet | Clinic | + + + + | 2022-04-17 00:00 | venlafaxine hcl 150 mg | [facility] | | | 24hr extended release oral | Dental | | | tablet | | + + + + | 2022-04-17 00:00 | venlafaxine hcl 150 mg | [facility] | | | 24hr extended release oral | [facility] | | | tablet | Clinic | + + + + | 2022-04-17 00:00 | venlafaxine hcl 150 mg | [facility] | | | 24hr extended release oral | [facility] | | | tablet | Clinic | + + + + | 2022-04-17 00:00 | venlafaxine hcl 150 mg | [facility] | | | 24hr extended release oral | [facility] | | | tablet | | + + + + | 2022-06-04 00:00 | venlafaxine hcl 150 mg | [facility] | | | 24hr extended release oral | [facility] | | | tablet | Clinic | + + + + | 2022-06-04 00:00 | venlafaxine hcl 150 mg | [facility] | | | 24hr extended release oral | [facility] | | | tablet | | + + + + | 2022-06-04 00:00 | venlafaxine hcl 150 mg | [facility] | | | 24hr extended release oral | | | | tablet | | + + + + | 2022-06-04 00:00 | venlafaxine hcl 150 mg | [facility] | | | 24hr extended release oral | Dental | | | tablet | | + + + + | 2022-06-19 00:00 | venlafaxine hcl 150 mg | [facility] | | | 24hr extended release oral | [facility] | | | tablet | Clinic | + + + + | 2022-06-19 00:00 | venlafaxine hcl 150 mg | [facility] | | | 24hr extended release oral | [facility] | | | tablet | Clinic | + + + + | 2022-06-19 00:00 | venlafaxine hcl 150 mg | [facility] | | | 24hr extended release oral | [facility] | | | tablet | | + + + + | 2022-06-19 00:00 | venlafaxine hcl 150 mg | [facility] | | | 24hr extended release oral | | | | tablet | | + + + + | 2022-07-26 00:00 | venlafaxine hcl 150 mg | [facility] | | | 24hr extended release oral | [facility] | | | tablet | Clinic | + + + + | 2022-07-26 00:00 | venlafaxine hcl 150 mg | [facility] | | | 24hr extended release oral | [facility] | | | tablet | | + + + + | 2022-07-26 00:00 | venlafaxine hcl 150 mg | [facility] | | | 24hr extended release oral | | | | tablet | | + + + + | 2022-07-26 00:00 | venlafaxine hcl 150 mg | [facility] | | | 24hr extended release oral | [facility] | | | tablet | Clinic | + + + + | 2022-07-26 00:00 | venlafaxine hcl 150 mg | [facility] | | | 24hr extended release oral | [facility] | | | tablet | [facility] | + + + + | 2022-07-26 00:00 | venlafaxine hcl 150 mg | [facility] | | | 24hr extended release oral | [facility] | | | tablet | | + + + + | 2020-03-31 00:00 | trazodone hydrochloride 50 | [facility] | | | mg oral tablet | [facility] | + + + + | 2022-10-10 00:00 | trazodone hydrochloride 50 | [facility] | | | mg oral tablet | [facility] | | | | Clinic | + + + + | 2022-10-10 00:00 | trazodone hydrochloride 50 | [facility] | | | mg oral tablet | [facility] | + + + + | 2022-10-10 00:00 | trazodone hydrochloride 50 | [facility] | | | mg oral tablet | | + + + + | 2022-11-19 00:00 | trazodone hydrochloride 50 | [facility] | | | mg oral tablet | [facility] | | | | Clinic | + + + + | 2022-11-19 00:00 | trazodone hydrochloride 50 | [facility] | | | mg oral tablet | [facility] | | | | Clinic | + + + + | 2022-11-19 00:00 | trazodone hydrochloride 50 | [facility] | | | mg oral tablet | [facility] | | | | Clinic | + + + + | 2022-11-19 00:00 | trazodone hydrochloride 50 | [facility] | | | mg oral tablet | [facility] | | | | Clinic | + + + + | 2022-08-16 00:00 | propranolol hcl 10 mg oral | [facility] | | | tablet | [facility] | | | | Clinic | + + + + | 2022-08-16 00:00 | propranolol hcl 10 mg oral | [facility] | | | tablet | [facility] | + + + + | 2022-08-16 00:00 | propranolol hcl 10 mg oral | [facility] | | | tablet | | + + + + | 2022-05-30 00:00 | polyethylene glycol 3350 | [facility] | | | 17 gm powder for oral | 1 | | | solution | | + + + + | 2022-05-30 00:00 | polyethylene glycol 3350 | [facility] | | | 17 gm powder for oral | [facility] | | | solution | Clinic | + + + + | 2022-05-30 00:00 | polyethylene glycol 3350 | [facility] | | | 17 gm powder for oral | [facility] | | | solution | Clinic | + + + + | 2022-05-30 00:00 | polyethylene glycol 3350 | [facility] | | | 17 gm powder for oral | [facility] | | | solution | | + + + + | 2022-05-30 00:00 | polyethylene glycol 3350 | [facility] | | | 17 gm powder for oral | | | | solution | | + + + + | 2022-05-30 00:00 | polyethylene glycol 3350 | [facility] | | | 17 gm powder for oral | Dental | | | solution | | + + + + | 2022-05-30 00:00 | polyethylene glycol 3350 | [facility] | | | 17 gm powder for oral | [facility] | | | solution | Clinic | + + + + | 2022-05-30 00:00 | polyethylene glycol 3350 | [facility] | | | 17 gm powder for oral | [facility] | | | solution | [facility] | + + + + | 2022-05-30 00:00 | polyethylene glycol 3350 | [facility] | | | 17 gm powder for oral | [facility] | | | solution | Clinic | + + + + | 2022-05-30 00:00 | polyethylene glycol 3350 | [facility] | | | 17 gm powder for oral | [facility] | | | solution | | + + + + | 2022-05-30 00:00 | polyethylene glycol 3350 | [facility] | | | 17 gm powder for oral | | | | solution | | + + + + | 2021-11-13 00:00 | benztropine mesylate 0.5 | [facility] | | | mg oral tablet | [place] | + + + + | 2022-10-03 00:00 | fluvoxamine maleate 25 mg | [facility] | | | oral tablet | [facility] | | | | Clinic | + + + + | 2022-10-03 00:00 | fluvoxamine maleate 25 mg | [facility] | | | oral tablet | [facility] | + + + + | 2022-10-03 00:00 | fluvoxamine maleate 25 mg | [facility] | | | oral tablet | [facility] | + + + + | 2022-10-03 00:00 | fluvoxamine maleate 25 mg | [facility] | | | oral tablet | | + + + + | 2022-10-03 00:00 | fluvoxamine maleate 25 mg | [facility] | | | oral tablet | [facility] | | | | Clinic | + + + + | 2022-10-03 00:00 | fluvoxamine maleate 25 mg | [facility] | | | oral tablet | [facility] | | | | Clinic | + + + + | 2022-10-03 00:00 | fluvoxamine maleate 25 mg | [facility] | | | oral tablet | | + + + + | 2022-09-10 00:00 | fluvoxamine maleate 50 mg | [facility] | | | oral tablet | 1 | + + + + | 2022-09-10 00:00 | fluvoxamine maleate 50 mg | [facility] | | | oral tablet | [facility] | | | | Clinic | + + + + | 2022-09-10 00:00 | fluvoxamine maleate 50 mg | [facility] | | | oral tablet | | + + + + | 2022-10-08 00:00 | levothyroxine sodium 0.025 | [facility] | | | mg oral tablet | [facility] | | | | Clinic | + + + + | 2022-10-08 00:00 | levothyroxine sodium 0.025 | [facility] | | | mg oral tablet | [facility] | | | | Clinic | + + + + | 2022-10-08 00:00 | levothyroxine sodium 0.025 | [facility] | | | mg oral tablet | [facility] | + + + + | 2022-10-08 00:00 | levothyroxine sodium 0.025 | [facility] | | | mg oral tablet | | + + + + | 2022-10-08 00:00 | levothyroxine sodium 0.025 | [facility] | | | mg oral tablet | [facility] [facility] | | | | Clinic | + + + + | 2022-10-08 00:00 | levothyroxine sodium 0.025 | [facility] | | | mg oral tablet | [facility] | | | | Clinic | + + + + | 2022-10-08 00:00 | levothyroxine sodium 0.025 | [facility] | | | mg oral tablet | | + + + + | 2019-11-29 00:00 | bupropion hcl 100 mg 12 hr | [facility] | | | extended release oral | [facility] | | | tablet | | + + + + | 2022-06-04 00:00 | 24 hr bupropion | [facility] | | | hydrochloride 150 mg | [facility] | | | extended release oral | Clinic | | | tablet | | + + + + | 2022-06-04 00:00 | 24 hr bupropion | [facility] | | | hydrochloride 150 mg | [facility] | | | extended release oral | | | | tablet | | + + + + | 2022-06-04 00:00 | 24 hr bupropion | [facility] | | | hydrochloride 150 mg | | | | extended release oral | | | | tablet | | + + + + | 2022-06-04 00:00 | 24 hr bupropion | [facility] | | | hydrochloride 150 mg | Dental | | | extended release oral | | | | tablet | | + + + + | 2022-06-19 00:00 | 24 hr bupropion | [facility] | | | hydrochloride 150 mg | [facility] | | | extended release oral | Clinic | | | tablet | | + + + + | 2022-06-19 00:00 | 24 hr bupropion | [facility] | | | hydrochloride 150 mg | [facility] | | | extended release oral | Clinic | | | tablet | | + + + + | 2022-09-10 00:00 | 24 hr bupropion | [facility] | | | hydrochloride 150 mg | 1 | | | extended release oral | | | | tablet | | + + + + | 2022-09-10 00:00 | 24 hr bupropion | [facility] | | | hydrochloride 150 mg | [facility] | | | extended release oral | Clinic | | | tablet | | + + + + | 2022-09-10 00:00 | 24 hr bupropion | [facility] | | | hydrochloride 150 mg | | | | extended release oral | | | | tablet | | + + + + | 2022-07-02 00:00 | 24 hr bupropion | [facility] | | | hydrochloride 300 mg | [facility] | | | extended release oral | Clinic | | | tablet | | + + + + | 2022-07-02 00:00 | 24 hr bupropion | [facility] | | | hydrochloride 300 mg | [...] 2022-07-26 00:00 | 24 hr bupropion | [facility] | | | hydrochloride 300 mg | [facility] | | | extended release oral | Clinic | | | tablet | | + + + + | 2022-07-26 00:00 | 24 hr bupropion | [facility] | | | hydrochloride 300 mg | [facility] | | | extended release oral | | | | tablet | | + + + + | 2022-07-26 00:00 | 24 hr bupropion | [facility] | | | hydrochloride 300 mg | | | | extended release oral | | | | tablet | | + + + + | 2022-07-26 00:00 | 24 hr bupropion | [facility] | | | hydrochloride 300 mg | [facility] | | | extended release oral | Clinic | | | tablet | | + + + + | 2022-07-26 00:00 | 24 hr bupropion | [facility] | | | hydrochloride 300 mg | [facility] | | | extended release oral | [facility] | | | tablet | | + + + + | 2022-07-26 00:00 | 24 hr bupropion | [facility] | | | hydrochloride 300 mg | [facility] | | | extended release oral | | | | tablet | | + + + + | 2022-10-03 00:00 | hydroxyzine pamoate 25 mg | [facility] | | | oral capsule | [facility] | | | | Clinic | + + + + | 2022-10-03 00:00 | hydroxyzine pamoate 25 mg | [facility] | | | oral capsule | [facility] | + + + + | 2022-10-03 00:00 | hydroxyzine pamoate 25 mg | [facility] | | | oral capsule | | + + + + | 2022-11-19 00:00 | hydroxyzine pamoate 25 mg | [facility] | | | oral capsule | [facility] | | | | Clinic | + + + + | 2022-11-19 00:00 | hydroxyzine pamoate 25 mg | [facility] | | | oral capsule | [facility] | | | | Clinic | + + + + | 2022-11-19 00:00 | hydroxyzine pamoate 25 mg | [facility] | | | oral capsule | [facility] | | | | Clinic | + + + + | 2022-11-19 00:00 | hydroxyzine pamoate 25 mg | [facility] | | | oral capsule | [facility] [address] | | | | Clinic | + + + + Problems + + + + | date | description | facility | + + + + | 2014-09-20 00:00 | cameron - generalized anxiety | [facility] | | | disorder | [place] | + + + + | 2014-09-20 00:00 | cameron - generalized anxiety | [facility] | | | disorder | [facility] | + + + + | 2014-09-20 00:00 | depressive disorder | [facility] | | | (disorder) | [place] | + + + + | 2014-09-20 00:00 | adult attention deficit | [facility] | | | disorder | [place] | + + + + | 2014-09-20 00:00 | adult attention deficit | [facility] | | | disorder | [place] | + + + + | 2014-09-20 00:00 | Depression | [facility] | | | | [place] | + + + + | 2014-09-20 00:00 | Generalized anxiety | [facility] | | | disorder | [place] | + + + + | 2014-09-20 00:00 | Generalized anxiety | [facility] | | | disorder | [place] | + + + + | 2014-09-20 00:00 | Adult ADHD | [facility] | | | | [place] | + + + + | 2014-09-20 [...] [facility] | | | | [place] | + + + + | 2015-06-16 00:00 | Contraception, device | [facility] | | | intrauterine | [place] | + + + + | 2015-06-16 00:00 | Contraception, device | [facility] | | | intrauterine | [place] | + + + + | 2016-02-29 00:00 | obesity (disorder) | [facility] | | | | [place] | + + + + | 2016-02-29 00:00 | obesity (disorder) | [facility] | | | | [place] | + + + + | 2016-02-29 00:00 | Obesity | [facility] | | | |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 + + + + | 2021-10-04 09:13 | Delusional disorders | [facility] - | | | | [place] | + + + + | 2021-10-29 13:12:12 | Schizophrenia, schizotypal, | [facility]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, 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| | | non-mood psychotic | | | | disorders (F20-F29) | | + + + + | 2021-11-02 00:00 | finding of tobacco use and | [facility] | | | exposure | 1 | + + + + | 2021-11-02 00:00 | finding of tobacco use and | [facility] | | | exposure | [facility] | | | | Clinic | + + + + | 2021-11-02 00:00 | finding of tobacco use and | [facility] | | | exposure | [facility] | | | | Clinic | + + + + | 2021-11-02 00:00 | finding of tobacco use and | [facility] | | | exposure | [facility] | + + + + | 2021-11-02 00:00 | finding of tobacco use and | [facility] | | | exposure | | + + + + | 2021-11-02 00:00 | finding of tobacco use and | [facility] | | | exposure | Dental | + + + + | 2021-11-02 00:00 | finding of tobacco use and | [facility] | | | exposure | [facility] | | | | Clinic | + + + + | 2021-11-02 00:00 | finding of tobacco use and | [facility] | | | exposure | [facility] | | | | Clinic | + + + + | 2021-11-02 00:00 | finding of tobacco use and | [facility] | | | exposure | [facility] [place] | | | | [place] | + + + + | 2021-11-02 00:00 | finding of tobacco use and | [facility] | | | exposure | [facility] [address] | | | | Clinic | + + + + | 2021-11-02 00:00 | finding of tobacco use and | [facility] | | | exposure | [facility] | + + + + | 2021-11-02 00:00 | finding of tobacco use and | [facility] | | | exposure | | + + + + | 2021-11-02 00:00 | Tobacco use | [facility] | | | | 1 | + + + + | 2021-11-02 00:00 | Tobacco use | [facility] | | | | [facility] [place] | | | | Clinic | + + + + | 2021-11-02 00:00 | Tobacco use | [facility] | | | | [facility] [address] | | | | Clinic | + + + + | 2021-11-02 00:00 | Tobacco use | [facility] | | | | [facility] | + + + + | 2021-11-02 00:00 | Tobacco use | [facility] | + + + + | 2021-11-02 00:00 | Tobacco use | [facility] | | | | Dental | + + + + | 2021-11-02 00:00 | Tobacco use | [facility] | | | | [facility] | | | | Clinic | + + + + | 2021-11-02 00:00 | Tobacco use | [facility] | | | | [facility] | | | | Clinic | + + + + | 2021-11-02 00:00 | Tobacco use | [facility] | | | | [facility] | | | | [place] | + + + + | 2021-11-02 00:00 | Tobacco use | [facility] | | | | [facility] | | | | Clinic | + + + + | 2021-11-02 00:00 | Tobacco use | [facility] | | | | [facility] [...] + | 2021-11-10 18:32 | Anxiety | [facility] - | | | | [place] | + + + + | 2021-11-10 18:32 | Acute stress reaction | [facility] - | | | | [place] | + + + + | 2021-11-12 00:00 | suicidal ideation | [facility] | | | | [place] | + + + + | 2021-11-12 00:00 | Suicidal thoughts | [facility] | | | | [place] | + + + + | 2021-11-12 03:45 | Mental Health Problem | [facility] - | | | | [place] | + + + + | 2021-11-12 03:45 | Other stimulant abuse, | [facility] - | | | uncomplicated | [place] | + + + + | 2021-11-12 03:45 | Delusional disorders | [facility] - | | | | [place] | + + + + | 2021-11-12 03:45 | Anxiety disorder, | [facility] - | | | unspecified | [place] | + + + + | 2021-11-12 03:45 | Homelessness unspecified | [facility] - | | | | [place] | + + + + | 2021-11-12 03:45 | Tobacco use | [facility] - | | | | [place] | + + + + | 2021-11-12 03:49:59 | Schizophrenia, schizotypal, | [facility]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, 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| | | non-mood psychotic | | | | disorders (F20-F29) | | + + + + | 2021-11-13 01:45 | Hallucinations | [facility] - | | | | [place] | + + + + | 2021-11-13 01:48:54 | Schizophrenia, schizotypal, | [facility]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, 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| | | non-mood psychotic | | | | disorders (F20-F29) | | + + + + | 2021-11-13 02:11 | Hallucinations | [facility] - | | | | [place] | + + + + | 2021-11-13 02:11 | Suicidal | [facility] - | | | | [place] | + + + + | 2021-11-13 02:11 | Delusional disorders | [facility] - | | | | [place] | + + + + | 2021-11-14 14:04 | Dizziness | [facility] - | | | | [place] | + + + + | 2021-11-14 14:04 | Abdominal Pain | [facility] - | | | | [place] | + + + + | 2021-11-14 14:04 | Back Pain | [facility] - | | | | [place] | + + + + | 2021-11-14 14:04 | Weakness - Generalized | [facility] - | | | | [place] | + + + + | 2021-11-14 14:04 | Hypokalemia | [facility] - | | | | [place] | + + + + | 2021-11-14 14:04 | Other stimulant abuse, | [facility] - | | | uncomplicated | [place] | + + + + | 2021-11-14 14:04 | Schizophrenia, schizotypal, | [facility]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, 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[place] | | | non-mood psychotic | | | | disorders (F20-F29) | | + + + + | 2021-11-15 14:20:15 | Other specified depressive | [facility] | | | episodes | | + + + + | 2021-11-16 10:41 | Psychiatric Evaluation | [facility] - | | | | [place] | + + + + | 2021-11-16 12:12 | Psychiatric Evaluation | [facility] - | | | | [place] | + + + + | 2021-11-16 12:12 | Other stimulant abuse, | [facility] - | | | uncomplicated | [place] | + + + + | 2021-11-16 12:12 | Delusional disorders | [facility] - | | | | [place] | + + + + | 2021-11-16 13:19:25 | Other specified depressive | [facility] | | | episodes | | + + + + | 2021-11-17 22:20:31 | Case Management | [facility] | + + + + | 2021-11-19 10:02:36 | 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[facility] - | | | dependence, in remission | [place] | + + + + | 2021-11-19 10:02:36 | Major depressive disorder, | [facility] - | | | single episode, severe | [place] | | | with psychotic features | | + + + + | 2021-11-19 10:02:36 | Adjustment disorder with | [facility] - | | | mixed disturbance of | [place] | | | emotions and conduct | [...] | 2021-12-03 02:54 | Flu Symptoms | [facility] - | | | | [place] | + + + + | 2021-12-03 03:00 | Flu Symptoms | [facility] - | | | | [place] | + + + + | 2021-12-03 03:00 | Other stimulant abuse, | [facility] - | | | uncomplicated | [place] | + + + + | 2021-12-03 03:00 | Vomiting, unspecified | [facility] - | | | | [place] | + + + + | 2021-12-03 13:45 | Vomiting | [facility] - | | | | [place] | + + + + | 2021-12-03 13:45 | Nausea | [facility] - | | | | [place] | + + + + | 2021-12-03 15:01 | Vomiting | [facility] - | | | | [place] | + + + + | 2021-12-03 15:01 | Nausea | [facility] - | | | | [place] | + + + + | 2021-12-03 21:02 | Illness | [facility] - | | | | [place] | + + + + | 2021-12-03 21:53 | Illness | [facility] - | | | | [place] | + + + + | 2021-12-03 21:53 | Other stimulant abuse, | [facility] - | | | uncomplicated | [place] | + + + + | 2021-12-03 21:53 | Other stimulant use, | [facility] - | | | unspecified with | [place] | | | intoxication, unspecified | | + + + + | 2021-12-03 21:53 | Delusional disorders | [facility] - | | | | [place] | + + + + | 2021-12-03 21:53 | Suicidal ideations | [facility] - | | | | [place] | [...] + | 2021-12-05 22:22 | Vomiting | [facility] - | | | | [place] | + + + + | 2021-12-05 22:22 | Hematemesis | [facility] - | | | | [place] [...] | 2021-12-16 00:35 | Anxiety | [facility] - | | | | [place] | + + + + | 2021-12-16 00:35 | Anxiety disorder, | [facility] - | | | unspecified | [place] | + + + + | 2021-12-17 23:34 | Blurred Vision | [facility] - | | | | [place] | + + + + | 2021-12-17 23:45 | Blurred Vision | [facility] - | | | | [place] | + + + + | 2021-12-17 23:45 | Other stimulant abuse, | [facility] - | | | uncomplicated | [place] | + + + + | 2021-12-18 14:27:07 | Other specified depressive | [facility] | | | episodes | | + + + + | 2021-12-21 10:50 | Altered Mental Status | [facility] - | | | | [place] | + + + + | 2021-12-21 11:53 | Altered Mental Status | [facility] - | | | | [place] | + + + + | 2021-12-21 11:53 | Other stimulant abuse, | [facility] - | | | uncomplicated | [place] | + + + + | 2021-12-21 11:53 | Schizophrenia, schizotypal, | [facility]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, 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[place] | | | non-mood psychotic | | | | disorders (F20-F29) | | + + + + | 2021-12-21 11:53 | Anxiety disorder, | [facility] - | | | unspecified | [place] [...] + | 2022-02-09 08:55 | Anxiety | [facility] - | | | | [place] | + + + + | 2022-02-09 09:05 | Anxiety | [facility] - | | | | [place] | + + + + | 2022-02-09 09:05 | Delusional disorders | [facility] - | | | | [place] | + + + + | 2022-02-09 09:05 | Suicidal ideations | [facility] - | | | | [place] | [...] + | 2022-03-19 06:42 | Hallucinations | [facility] - | | | | [place] | + + + + | 2022-03-19 06:42 | Delusional | [facility] - | | | | [place] | + + + + | 2022-03-19 07:01 | Hallucinations | [facility] - | | | | [place] | + + + + | 2022-03-19 07:01 | Delusional | [facility] - | | | | [place] | + + + + | 2022-03-19 07:01 | Other stimulant abuse, | [facility] - | | | uncomplicated | [place] | + + + + | 2022-03-19 07:01 | Schizophrenia, unspecified | [facility] - | | | | [place] | + + + + | 2022-03-21 10:42:48 | Other specified depressive | [facility] | | | episodes | | + + + + | 2022-03-21 10:42:48 | Tobacco use | [facility] | + + + + | 2022-03-25 00:00 | stimulant abuse (disorder) | [facility] | | | | [facility] | | | | Clinic | + + + + | 2022-03-25 00:00 | stimulant abuse (disorder) | [facility] | | | | [facility] | | | | Clinic | + + + + | 2022-03-25 00:00 | stimulant abuse (disorder) | [facility] | | | | [facility] | + + + + | 2022-03-25 00:00 | stimulant abuse (disorder) | [facility] | | | | | + + + + | 2022-03-25 00:00 | stimulant abuse (disorder) | [facility] | | | | [facility] [place] | | | | Clinic | + + + + | 2022-03-25 00:00 | stimulant abuse (disorder) | [facility] | | | | [facility] [address] | | | | Clinic | + + + + | 2022-03-25 00:00 | stimulant abuse (disorder) | [facility] | | | | | + + + + | 2022-03-25 00:00 | psychosis | [facility] | | | | 1 | + + + + | 2022-03-25 00:00 | psychosis | [facility] | | | | [facility] | | | | Clinic | + + + + | 2022-03-25 00:00 | psychosis | [facility] | | | | [facility] | | | | Clinic | + + + + | 2022-03-25 00:00 | psychosis | [facility] | | | | [facility] | + + + + | 2022-03-25 00:00 | psychosis | [facility] | + + + + | 2022-03-25 00:00 | psychosis | [facility] [place] | | | | Dental | + + + + | 2022-03-25 00:00 | psychosis | [facility] | | | | Behavioral [facility] | | | | Clinic | + + + + | 2022-03-25 00:00 | psychosis | [facility] | | | | [facility] | | | | Clinic | + + + + | 2022-03-25 00:00 | psychosis | [facility] | | | | [facility] | | | | County | + + + + | 2022-03-25 00:00 | psychosis | [facility] | | | | Stabilization Center | + + + + | 2022-03-25 00:00 | harmful pattern of use of | [facility] | | | amfetamine and/or | 1 | | | amfetamine derivative | | | | (disorder) | | + + + + | 2022-03-25 00:00 | harmful pattern of use of | [facility] | | | amfetamine and/or | [facility] | | | amfetamine derivative | Clinic | | | (disorder) | | + + + + | 2022-03-25 00:00 | harmful pattern of use of | [facility] | | | amfetamine and/or | [facility] [address] | | | amfetamine derivative | Clinic | | | (disorder) | | + + + + | 2022-03-25 00:00 | harmful pattern of use of | [facility] | | | amfetamine and/or | [facility] | | | amfetamine derivative [...] pattern of use of | [facility] | | | amfetamine and/or | Dental | | | amfetamine derivative | | | | (disorder) | | + + + + | 2022-03-25 00:00 | harmful pattern of use of | [place] | | | amfetamine and/or | [facility] | | | amfetamine derivative | Clinic | | | (disorder) | | + + + + | 2022-03-25 00:00 | harmful pattern of use of | [facility] | | | amfetamine and/or | [facility] | | | amfetamine derivative | [facility] | | | (disorder) | | + + + + | 2022-03-25 00:00 | harmful pattern of use of | [facility] | | | amfetamine and/or | [facility] [place] | | | amfetamine derivative | [facility] | | | (disorder) | | + + + + | 2022-03-25 00:00 | harmful pattern of use of | [facility] | | | amfetamine and/or | [facility] | | | amfetamine derivative | | | | (disorder) | | + + + + | 2022-03-25 00:00 | Amphetamine use disorder, | [facility] | | | severe (HCC-CMS) | 1 | + + + + | 2022-03-25 00:00 | Amphetamine use disorder, | [facility] | | | severe (HCC-CMS) | [facility] | | | | Clinic | + + + + | 2022-03-25 00:00 | Amphetamine use disorder, | [facility] | | | severe (HCC-CMS) | [facility] | | | | Clinic | + + + + | 2022-03-25 00:00 | Amphetamine use disorder, | [facility] | | | severe (HCC-CMS) | [facility] | + + + + | 2022-03-25 00:00 | Amphetamine use disorder, | [facility] | | | severe (HCC-CMS) | | + + + + | 2022-03-25 00:00 | Amphetamine use disorder, | [facility] | | | severe ([facility]) | Dental | + + + + | 2022-03-25 00:00 | Amphetamine use disorder, | [facility] | | | severe ([facility]) | Behavioral [facility] | | | | Clinic | + + + + | 2022-03-25 00:00 | Amphetamine use disorder, | [facility] | | | severe ([facility]) | Behavioral [facility] | | | | Clinic | + + + + | 2022-03-25 00:00 | Amphetamine use disorder, | [facility] | | | severe ([facility]) | [facility] | | | | [facility] | + + + + | 2022-03-25 00:00 | Amphetamine use disorder, | [facility] | | | severe ([facility]) | Stabilization Center | + + + + | 2022-03-25 00:00 | Moderate stimulant use | [facility] | | | disorder ([facility]) | [facility] | | | | Clinic | + + + + | 2022-03-25 00:00 | Moderate stimulant use | [facility] | | | disorder ([facility]) | [facility] [address] | | | | Clinic | + + + + | 2022-03-25 00:00 | Moderate stimulant use | [facility] | | | disorder ([facility]) | Stabilization Center | + + + + | 2022-03-25 00:00 | Moderate stimulant use | [facility] | | | disorder ([facility]) | | + + + + | 2022-03-25 00:00 | Moderate stimulant use | [facility] | | | disorder ([facility]) | Behavior[facility] | | | | Clinic | + + + + | 2022-03-25 00:00 | Moderate stimulant use | [facility] | | | disorder ([facility]) | Behavior[facility] [address] | | | | Clinic | + + + + | 2022-03-25 00:00 | Moderate stimulant use | [facility] | | | disorder ([facility]) | | + + + + | 2022-03-25 00:00 | Other specified | [facility] | | | schizophrenia spectrum and | 1 | | | other psychotic disorder | | | | ([facility]) | | + + + + | 2022-03-25 00:00 | Other specified | [facility] | | | schizophrenia spectrum and | [facility] | | | other psychotic disorder | Clinic | | | ([facility]) | | + + + + | 2022-03-25 00:00 | Other specified | [facility] | | | schizophrenia spectrum and | [facility] [address] | | | other psychotic disorder | Clinic | | | ([facility]) | | + + + + | 2022-03-25 00:00 | Other specified | [facility] | | | schizophrenia spectrum and | [facility] | | | other psychotic disorder | | | | ([facility]) | | + + + + | 2022-03-25 00:00 | Other specified | [facility] | | | schizophrenia spectrum and | | | | other psychotic disorder | | | | ([facility]) | | + + + + | 2022-03-25 00:00 | Other specified | [facility] [place] | | | schizophrenia spectrum and | Dental | | | other psychotic disorder | | | | ([facility]) | | + + + + | 2022-03-25 00:00 | Other specified | [facility] | | | schizophrenia spectrum and | [facility] | | | other psychotic disorder | Clinic | | | ([facility]) | | + + + + | 2022-03-25 00:00 | Other specified | [facility] | | | schizophrenia spectrum and | [facility] | | | other psychotic disorder | Clinic | | | ([facility]) | | + + + + | 2022-03-25 00:00 | Other specified | [facility] | | | schizophrenia spectrum and | [facility] | | | other psychotic disorder | County | | | ([facility]) | | + + + + | 2022-03-25 00:00 | Other specified | [facility] | | | schizophrenia spectrum and | [facility] | | | other psychotic disorder | | | | ([facility]) | | + + + + | [...] + | 2022-04-25 12:18 | Delusional | [facility] - | | | | [place] | [...] | 2022-04-25 14:51 | Delusional | [facility] - | | | | [place] | + + + + | 2022-04-25 14:51 | Schizophrenia, schizotypal, | [facility] [employer]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, 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 | | | | disorders (F20-F29) | | + + + + | 2022-04-25 14:51 | Nausea with vomiting, | [facility] - | | | unspecified | [place] | + + + + | 2022-04-25 14:51 | Diarrhea, unspecified | [facility] - | | | | [place] | + + + + | 2022-04-25 [...] | 2022-04-30 11:25 | Abdominal Pain | [facility] | | | | [place] | + + + + | 2022-04-30 11:25 | Hallucinations | [facility] | | | | [place] | + + + + | 2022-04-30 12:02 | Abdominal Pain | [facility] | | | | [place] | + + + + | 2022-04-30 12:02 | Hallucinations | [facility] - | | | | [place] | + + + + | 2022-04-30 12:02 | Hallucinations, | [facility] - | | | unspecified | [place] [...] 2022-05-14 08:23 | Mental Health Problem | [facility] - | | | | [place] | + + + + | 2022-05-14 08:42 | Mental Health Problem | [facility] - | | | | [place] | + + + + | 2022-05-14 08:42 | Other psychoactive | [facility] - | | | substance use, unspecified, | [place] | | | uncomplicated | | + + + + | 2022-05-14 08:42 | Delusional disorders | [facility] - | | | | [place] | + + + + | 2022-05-17 08:57:59 | Abdominal Cramping | [facility] - | | | | [place] | + + + + | 2022-05-17 08:57:59 | Mental Health Problem | [facility] - | | | | [place] | + + + + | 2022-05-17 09:58 | Abdominal Cramping | [facility] - | | | | [place] | + + + + | 2022-05-17 09:58 | Mental Health Problem | [facility] - | | | | [place] | + + + + | 2022-05-17 09:58 | Generalized abdominal pain | [facility] - | | | | [place] | [...] + | 2022-07-16 18:25:18 | Vomiting | [facility] - | | | | [place] | + + + + | 2022-07-16 18:25:18 | Mental Health Problem | [facility] - | | | | [place] | + + + + | 2022-07-16 18:57 | Vomiting | [facility] - | | | | [place] | + + + + | 2022-07-16 18:57 | Mental Health Problem | [facility] - | | | | [place] | + + + + | 2022-07-16 18:57 | Imaging @ Upper Arteries @ | [facility] - | | | Ultrasonography @ | [place] | | | Subclavian Artery, Left | | + + + + | 2022-07-16 18:57 | Suicidal ideations | [facility] - | | | | [place] | [...] 2022-08-15 12:01:42 | Mental Health Problem | [facility] - | | | | [place] | + + + + | 2022-08-15 12:26 | Mental Health Problem | [facility] - | | | | [place] | + + + + | 2022-08-15 12:26 | Hypokalemia | [facility] - | | | | [place] | + + + + | 2022-08-15 12:26 | Other stimulant abuse, | [facility] - | | | uncomplicated | [place] | + + + + | 2022-08-15 12:26 | Other psychoactive | [facility] - | | | substance abuse, | [place] | | | uncomplicated | | + + + + | 2022-08-15 12:26 | Schizophrenia, schizotypal, | [facility]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, and other [...] + | 2022-08-23 14:18:29 | Paranoia | [facility] - | | | | [place] | + + + + | 2022-08-23 14:18:29 | Psychiatric Evaluation | [facility] - | | | | [place] [...] + | 2022-08-23 17:00 | Paranoia | [facility] - | | | | [place] | + + + + | 2022-08-23 17:00 | Other stimulant abuse, | [facility] - | | | uncomplicated | [place] | + + + + | 2022-08-23 17:00 | Schizophrenia, schizotypal, | [facility]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, 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[place] | | | non-mood psychotic | | | | disorders (F20-F29) | | + + + + | 2022-08-23 17:00 | Homelessness unspecified | [facility] - | | | | [place] | + + + + | 2022-08-23 17:00 | Tobacco use | [facility] - | | | | [place] [...] + + | 2022-08-26 16:42:55 | 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) | [facility] | | | drug [...] 2022-09-15 20:53:05 | Shortness of Breath | [facility] - | | | | [place] | + + + + | 2022-09-15 21:07 | Shortness of Breath | [facility] - | | | | [place] | + + + + | 2022-09-15 21:07 | Viral infection, | [facility] - | | | unspecified | [place] | + + + + | 2022-09-15 21:07 | Dehydration | [facility] - | | | | [place] | + + + + | 2022-09-15 21:07 | Hypokalemia | [facility] - | | | | [place] | + + + + | 2022-09-15 21:07 | Delusional disorders | [facility] - | | | | [place] | + + + + | 2022-09-15 21:07 | Unspecified kidney failure | [facility] - | | | | [place] | + + + + | 2022-09-15 21:07 | Acute cough | [facility] - | | | | [place] | + + + + | 2022-09-15 21:07 | Nausea with vomiting, | [facility] - | | | unspecified | [place] | + + + + | 2022-09-16 13:48:51 | Behavioral Health Staffing | [facility] | | | Note | | + + + + | 2022-09-22 21:42:51 | Vomiting | [facility] - | | | | [place] | + + + + | 2022-09-22 21:42:51 | Mental Health Problem | [facility] - | | | | [place] | + + + + | 2022-09-22 22:19 | Vomiting | [facility] - | | | | [place] | + + + + | 2022-09-22 22:19 | Mental Health Problem | [facility] - | | | | [place] | + + + + | 2022-09-22 22:19 | Dehydration | [facility] - | | | | [place] | + + + + | 2022-09-22 22:19 | Hypokalemia | [facility] - | | | | [place] | + + + + | 2022-09-22 22:19 | Schizophrenia, unspecified | [facility] - | | | | [place] | + + + + | 2022-09-22 22:19 | Vomiting, unspecified | [facility] - | | | | [place] | + + + + | 2022-09-22 22:19 | Nausea with vomiting, | [facility] - | | | unspecified | [place] | + + + + | 2022-09-22 22:19 | Diarrhea, unspecified | [facility] - | | | | [place] | [...] | 2022-11-05 00:00 | chronic schizophrenic | [facility] | | | | [facility] | | | | Clinic | + + + + | 2022-11-05 00:00 | chronic schizophrenic | [facility] | + + + + | 2022-11-05 00:00 | Schizophrenia, chronic | [facility] | | | condition ([facility]) | [facility] | | | | Clinic | + + + + | 2022-11-05 00:00 | Schizophrenia, chronic | [facility] | | | condition ([facility]) | | + + + + | [...] + + | 2022-11-06 17:36:13 | 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 | | | RATE) | | [place] | | | | | ML/MIN/1.73 | [...] ? | | | RATE) | | [place] | | | | | ML/MIN/1.73 | [...] | | | | | | | [place] | | | | + + + + + + + | ALCOHOL | 2019-10-03 | [facility] | < | g/dl | (missing) | | (G/DL) IN | 13:48:17 | Health | | | | | SER/PLAS | | System - | | | | | | | [place] | | | | + + + + + + + | | 2019-10-03 | [facility] | < | mcg/ml | (missing) | | ACETAMINOPHE | 13:48:17 | Health | | | | | N (UG/ML) IN | | System - | | | | | SER/PLAS | | [place] | | | | + + + + + + + | | 2019-10-03 | [facility] | < | mcg/ml | (missing) | | ACETAMINOPHE | 13:48:17 | Health | | | | | N (UG/ML) IN | | System - | | | | | SER/PLAS | | [place] | | | | + + + + + + + | SALICYLATE | 2019-10-03 | [facility] | < | mg/dl | (missing) | | (MG/DL) IN | 13:48:17 | Health | | | | | SER/PLAS | | System - | | | | | | | [place] | | | | + + + + + + + | SALICYLATE | 2019-10-03 | [facility] | < | mg/dl | (missing) | | (MG/DL) IN | 13:48:17 | Health | | | | | SER/PLAS | | System - | | | | | | | [place] | | | | + + + + + + + | NRBC/100 | 2019-10-03 | [facility] | 0.0 | % | (missing) | | WBCS BY | 13:48:17 | Health | | | | | AUTOMATED | | System - | | | | | COUNT | | [place] | | | | + + + + + + + | NRBC/100 | 2019-10-03 | [facility] | 0.0 | % | (missing) | | WBCS BY | 13:48:17 | Health | | | | | AUTOMATED | | System - | | | | | COUNT | | [place] | | | | + + + + + + + | | 2019-10-03 | [facility] | 0.0 | k/mcl | (missing) | | NRBC(10*3/UL | 13:48:17 | Health | | | | | ) IN BLOOD | | System - | | | | | BY AUTOMATED | | [place] | | | | | COUNT | | | | | | + + + + + + + | | 2019-10-03 | [facility] | 0.0 | k/mcl | (missing) | | NRBC(10*3/UL | 13:48:17 | Health | | | | | ) IN BLOOD | | System - | | | | | BY AUTOMATED | | [place] | | | | | COUNT | | | | | | + + + + + + + | IMMATURE | 2019-10-03 | [facility] | 0.04 | k/mcl | (missing) | | GRANULOCYTE | 13:48:17 | Health | | | | | (ABS) | | System - | | | | | | | [place] | | | | + + + + + + + | IMMATURE | 2019-10-03 | [facility] | 0.04 | k/mcl | (missing) | | GRANULOCYTE | 13:48:17 | Health | | | | | (ABS) | | System - | | | | | | | [place] | | | | + + + + + + + | BASOPHILS | 2019-10-03 | [facility] | 0.1 | k/mcl | (missing) | | (10*3/UL) IN | 13:48:17 | Health | | | | | BLOOD BY | | System - | | | | | AUTOMATED | | [place] | | | | | COUNT | | | | | | + + + + + + + | BASOPHILS | 2019-10-03 | [facility] | 0.1 | k/mcl | (missing) | | (10*3/UL) IN | 13:48:17 | Health | | | | | BLOOD BY | | System - | | | | | AUTOMATED | | [place] | | | | | COUNT | | | | | | + + + + + + + | BILIRUBIN | 2019-10-03 | [facility] | 0.2 | mg/dl | (missing) | | TOTAL | 13:48:17 | Health | | | | | (MG/DL) IN | | System - | | | | | SER/PLAS | | [place] | | | | + + + + + + + | BILIRUBIN | 2019-10-03 | [facility] | 0.2 | mg/dl | (missing) | | TOTAL | 13:48:17 | Health | | | | | (MG/DL) IN | | System - | | | | | SER/PLAS | | [place] | | | | + + + + + + + | EOSINOPHILS | 2019-10-03 | [facility] | 0.3 | k/mcl | (missing) | | (10*3/UL) | 13:48:17 | Health | | | | | IN BLOOD BY | | System - | | | | | AUTOMATED | | [place] | | | | | COUNT | | | | | | + + + + + + + | EOSINOPHILS | 2019-10-03 | [facility] | 0.3 | k/mcl | (missing) | | (10*3/UL) | 13:48:17 | Health | | | | | IN BLOOD BY | | System - | | | | | AUTOMATED | | [place] | | | | | COUNT | | | | | | + + + + + + + | IMMATURE | 2019-10-03 | [facility] | 0.4 | % | (missing) | | GRANULOCYTE | 13:48:17 | Health | | | | | % (AUTO) | | System - | | | | | | | [place] | | | | + + + + + + + | IMMATURE | 2019-10-03 | [facility] | 0.4 | % | (missing) | | GRANULOCYTE | 13:48:17 | Health | | | | | % (AUTO) | | System - | | | | | | | [place] | | | | + + + + + + + | | 2019-10-03 | [facility] | 0.5 | % | (missing) | | BASOPHILS/10 | 13:48:17 | Health | | | | | 0 LEUKOCYTES | | System - | | | | | IN BLOOD BY | | [place] | | | | | AUTOMATED | [...] | | IN BLOOD BY | | [place] | | | | | AUTOMATED | [...] | | | | | | | [place] | | | | + + + + + + + | CREATININE | 2019-10-03 | [facility] | 0.7 | mg/dl | (missing) | | (MG/DL) IN | 13:48:17 | Health | | | | | SER/PLAS | | System - | | | | | | | [place] | | | | + + + + + + + | MONOCYTES | 2019-10-03 | [facility] | 0.8 | k/mcl | (missing) | | (10*3/UL) IN | 13:48:17 | Health | | | | | BLOOD BY | | System - | | | | | AUTOMATED | | [place] | | | | | COUNT | | | | | | + + + + + + + | MONOCYTES | 2019-10-03 | [facility] | 0.8 | k/mcl | (missing) | | (10*3/UL) IN | 13:48:17 | Health | | | | | BLOOD BY | | System - | | | | | AUTOMATED | | [place] | | | | | COUNT | | | | | | + + + + + + + | MUCUS | 2019-10-03 | [facility] | 1 | (missing) | (missing) | | (#/HPF) IN | 13:48:17 | Health | | | | | URINE | | System - | | | | | SEDIMENT | | [place] | | | | + + + + + + + | MUCUS | 2019-10-03 | [facility] | 1 | (missing) | (missing) | | (#/HPF) IN | 13:48:17 | Health | | | | | URINE | | System - | | | | | SEDIMENT | | [place] | | | | + + + + + + + | SPECIFIC | 2019-10-03 | [facility] | 1.020 | (missing) | (missing) | | GRAVITY OF | 13:48:17 | Health | | | | | URINE BY | | System - | | | | | AUTOMATED | | [place] | | | | | TEST STRIP | | | | | | + + + + + + + | SPECIFIC | 2019-10-03 | [facility] | 1.020 | (missing) | (missing) | | GRAVITY OF | 13:48:17 | Health | | | | | URINE BY | | System - | | | | | AUTOMATED | | [place] | | | | | TEST STRIP | | | | | | + + + + + + + | | 2019-10-03 | [facility] | 1.62 | :1 | (missing) | | ALBUMIN/GLOB | 13:48:17 | Health | | | | | ULIN (A/G | | System - | | | | | RATIO) IN | | [place] | | | | | SER/PLAS | | | | | | + + + + + + + | | 2019-10-03 | [facility] | 1.62 | :1 | (missing) | | ALBUMIN/GLOB | 48:17 | Health | | | | | ULIN (A/G | | System - | | | | | RATIO) IN | | [place] | | | | | SER/PLAS | | | | | | + + + + + + + | CHLORIDE | 2019-10-03 | [facility] | 103 | mmol/l | (missing) | | (MMOL/L) IN | :48:17 | Health | | | | | SER/PLAS | | System - | | | | | | | [place] | | | | + + + + + + + | CHLORIDE | 2019-10-03 | [facility] | 103 | mmol/l | (missing) | | (MMOL/L) IN | 13:48:17 | Health | | | | | SER/PLAS | | System - | | | | | | | [place] | | | | + + + + + + + | ASPARTATE | 2019-10-03 | [facility] | 11 | u/l | (missing) | | AMINOTRANSFE | 13:48:17 | Health | | | | | RASE (SGOT) | | System - | | | | | (U/L) IN | | [place] | | | | | SER/PLAS | | | | | | + + + + + + + | ASPARTATE | 2019-10-03 | [facility] | 11 | u/l | (missing) | | AMINOTRANSFE | 13:48:17 | Health | | | | | RASE (SGOT) | | System - | | | | | (U/L) IN | | [place] | | | | | SER/PLAS | | | | | | + + + + + + + | ERYTHROCYTE | 2019-10-03 | [facility] | 12.3 | % | (missing) | | | 13:48:17 | Health | | | | | DISTRIBUTION | | System - | | | | | WIDTH | | [place] | | | | | (RATIO) BY [...] | | | | WIDTH | | [place] | | | | | (RATIO) BY [...] | | | | | | | [place] | | | | + + + + + + + | ANION GAP | 2019-10-03 | [facility] | 13.0 | mmol/l | (missing) | | IN SER/PLAS | 13:48:17 | Health | | | | | | | System - | | | | | | | [place] | | | | + + + + + + + | SODIUM | 2019-10-03 | [facility] | 142 | mmol/l | (missing) | | (MMOL/L) IN | 13:48:17 | Health | | | | | SER/PLAS | | System - | | | | | | | [place] | | | | + + + + + + + | SODIUM | 2019-10-03 | [facility] | 142 | mmol/l | (missing) | | (MMOL/L) IN | 13:48:17 | Health | | | | | SER/PLAS | | System - | | | | | | | [place] | | | | + + + + + + + | HEMOGLOBIN | 2019-10-03 | [facility] | 15.7 | g/dl | (missing) | | (G/DL) IN | 13:48:17 | Health | | | | | BLOOD | | System - | | | | | | | [place] | | | | + + + + + + + | HEMOGLOBIN | 2019-10-03 | [facility] | 15.7 | g/dl | (missing) | | (G/DL) IN | 13:48:17 | Health | | | | | BLOOD | | System - | | | | | | | [place] | | | | + + + + + + + | ALANINE | 2019-10-03 | [facility] | 16 | u/l | (missing) | | AMINOTRANSFE | 13:48:17 | Health | | | | | RASE (SGPT) | | System - | | | | | (U/L) IN | | [facility] | | | | | SER/PLAS | | | | | | + + + + + + + | ALANINE | 2019-10-03 | [facility] | 16 | u/l | (missing) | | AMINOTRANSFE | 13:48:17 | Health | | | | | RASE (SGPT) | | System - | | | | | (U/L) IN | | [place] | | | | | SER/PLAS | | | | | | + + + + + + + | RBC (#/HPF) | 2019-10-03 | [facility] | 2 | /hpf | (missing) | | IN URINE | 13:48:17 | Health | | | | | SEDIMENT | | System - | | | | | | | [place] | | | | + + + + + + + | RBC (#/HPF) | 2019-10-03 | [facility] | 2 | /hpf | (missing) | | IN URINE | 13:48:17 | Health | | | | | SEDIMENT | | System - | | | | | | | [place] | | | | + + + + + + + | GLOBULIN | 2019-10-03 | [facility] | 2.6 | g/dl | (missing) | | (G/DL) IN | 13:48:17 | Health | | | | | SER/PLAS | | System - | | | | | | | [place] | | | | + + + + + + + | GLOBULIN | 2019-10-03 | [facility] | 2.6 | g/dl | (missing) | | (G/DL) IN | 13:48:17 | Health | | | | | SER/PLAS | | System - | | | | | | | [place] | | | | + + + + + + + | | 2019-10-03 | [facility] | 2.7 | % | (missing) | | EOSINOPHILS/ | 13:48:17 | Health | | | | | 100 | | System - | | | | | LEUKOCYTES | | [place] | | | | | IN BLOOD [...] | | | | LEUKOCYTES | | [facility] | | | | | IN BLOOD BY | | | | | | | AUTOMATED | | | | | | | COUNT | | | | | | + + + + + + + | SQUAMOUS | 2019-10-03 | [facility] | 20 | /hpf | (missing) | | EPITHELIAL | 13:48:17 | Health | | | | | CELLS | | System - | | | | | (#/HPF) IN | | [place] | | | | | URINE | [...] | | | (#/HPF) IN | | [place] | | | | | URINE | [...] | | | (MMOL/L) IN | | [place] | | | | | SER/PLAS | | | | | | + + + + + + + | CARBON | 2019-10-03 | [facility] | 26 | mmol/l | (missing) | | DIOXIDE | 13:48:17 | Health | | | | | (CO2), TOTAL | | System - | | | | | (MMOL/L) IN | | [place] | | | | | SER/PLAS | | | | | | + + + + + + + | BACTERIA | 2019-10-03 | [facility] | 3 | /hpf | (missing) | | (#/HPF) IN | 13:48:17 | Health | | | | | URINE | | System - | | | | | | | [place] | | | | + + + + + + + | WBC | 2019-10-03 | [facility] | 3 | /hpf | (missing) | | (LEUKOCYTE) | 13:48:17 | Health | | | | | (#/HPF) IN | | System - | | | | | URINE | | [place] | | | | | SEDIMENT | | | | | | + + + + + + + | BACTERIA | 2019-10-03 | [facility] | 3 | /hpf | (missing) | | (#/HPF) IN | 13:48:17 | Health | | | | | URINE | | System - | | | | | | | [place] | | | | + + + + + + + | WBC | 2019-10-03 | [facility] | 3 | /hpf | (missing) | | (LEUKOCYTE) | 13:48:17 | Health | | | | | (#/HPF) IN | | System - | | | | | URINE | | [place] | | | | | SEDIMENT | | | | | | + + + + + + + | LYMPHOCYTES | 2019-10-03 | [facility] | 3.4 | k/mcl | (missing) | | (10*3/UL) | 13:48:17 | Health | | | | | IN BLOOD BY | | System - | | | | | AUTOMATED | | [place] | | | | | COUNT | | | | | | + + + + + + + | LYMPHOCYTES | 2019-10-03 | [facility] | 3.4 | k/mcl | (missing) | | (10*3/UL) | 13:48:17 | Health | | | | | IN BLOOD BY | | System - | | | | | AUTOMATED | | [place] | | | | | COUNT | | | | | | + + + + + + + | POTASSIUM | 2019-10-03 | [facility] | 3.5 | mmol/l | (missing) | | (MMOL/L) IN | 13:48:17 | Health | | | | | SER/PLAS | | System - | | | | | | | [place] | | | | + + + + + + + | POTASSIUM | 2019-10-03 | [facility] | 3.5 | mmol/l | (missing) | | (MMOL/L) IN | 13:48:17 | Health | | | | | SER/PLAS | | System - | | | | | | | [place] | | | | + + + + + + + | ERYTHROCYTE | 2019-10-03 | [facility] | 31.1 | pg | (missing) | | MEAN | 13:48:17 | Health | | | | | CORPUSCULAR | | System - | | | | | HEMOGLOBIN | | [place] | | | | | (PG) BY [...] | | | | HEMOGLOBIN | | [place] | | | | | (PG) BY [...] | | | | HEMOGLOBIN | | [place] | | | | | CONCENTRATIO | [...] | | | | HEMOGLOBIN | | [place] | | | | | CONCENTRATIO | [...] | | | | AUTOMATED | | [place] | | | | | COUNT | | | | | | + + + + + + + | PLATELETS | 2019-10-03 | [facility] | 341 | k/mcl | (missing) | | (10*3/UL) IN | 13:48:17 | Health | | | | | BLOOD | | System - | | | | | AUTOMATED | | [place] | | | | | COUNT | | | | | | + + + + + + + | | 2019-10-03 | [facility] | 37.0 | % | (missing) | | LYMPHOCYTES/ | 13:48:17 | Health | | | | | 100 | | System - | | | | | LEUKOCYTES | | [place] | | | | | IN BLOOD [...] | | | | LEUKOCYTES | | [place] | | | | | IN BLOOD [...] | | | URINE BY | | [place] | | | | | TEST STRIP | | | | | | + + + + + + + | | 2019-10-03 | [facility] | 4.0 | mg/dl | (missing) | | UROBILINOGEN | 13:48:17 | Health | | | | | (MG/DL) IN | | System - | | | | | URINE BY | | [place] | | | | | TEST STRIP | | | | | | + + + + + + + | ALBUMIN | 2019-10-03 | [facility] | 4.2 | g/dl | (missing) | | (G/DL) IN | 13:48:17 | Health | | | | | SER/PLAS | | System - | | | | | | | [place] | | | | + + + + + + + | ALBUMIN | 2019-10-03 | [facility] | 4.2 | g/dl | (missing) | | (G/DL) IN | 13:48:17 | Health | | | | | SER/PLAS | | System - | | | | | | | [place] | | | | + + + + + + + | NEUTROPHILS | 2019-10-03 | [facility] | 4.7 | k/mcl | (missing) | | (10*3/UL) | 13:48:17 | Health | | | | | IN BLOOD BY | | System - | | | | | AUTOMATED | | [place] | | | | | COUNT | | | | | | + + + + + + + | NEUTROPHILS | 2019-10-03 | [facility] | 4.7 | k/mcl | (missing) | | (10*3/UL) | 13:48:17 | Health | | | | | IN BLOOD BY | | System - | | | | | AUTOMATED | | [place] | | | | | COUNT | | | | | | + + + + + + + | HEMATOCRIT | 2019-10-03 | [facility] | 45.8 | % | (missing) | | (%) IN BLOOD | 13:48:17 | Health | | | | | BY | | System - | | | | | AUTOMATED | | [place] | | | | | COUNT | | | | | | + + + + + + + | HEMATOCRIT | 2019-10-03 | [facility] | 45.8 | % | (missing) | | (%) IN BLOOD | 13:48:17 | Health | | | | | BY | | System - | | | | | AUTOMATED | | [place] | | | | | COUNT | | | | | | + + + + + + + | | 2019-10-03 | [facility] | 5.05 | m/mcl | (missing) | | ERYTHROCYTES | 13:48:17 | Health | | | | | (10*6/UL) | | System - | | | | | IN BLOOD BY | | [place] | | | | | AUTOMATED | [...] | | IN BLOOD BY | | [place] | | | | | AUTOMATED | [...] | | | | LEUKOCYTES | | [place] | | | | | IN BLOOD [...] | | | | LEUKOCYTES | | [place] | | | | | IN BLOOD [...] | | | | SER/PLAS | | [place] | | | | + + + + + + + | ALKALINE | 2019-10-03 | [facility] | 56 | u/l | (missing) | | PHOSPHATASE | 13:48:17 | Health | | | | | (U/L) IN | | System - | | | | | SER/PLAS | | [place] | | | | + + + + + + + | PROTEIN | 2019-10-03 | [facility] | 6.8 | g/dl | (missing) | | (G/DL) IN | 13:48:17 | Health | | | | | SER/PLAS | | System - | | | | | | | [place] | | | | + + + + + + + | PROTEIN | 2019-10-03 | [facility] | 6.8 | g/dl | (missing) | | (G/DL) IN | 13:48:17 | Health | | | | | SER/PLAS | | System - | | | | | | | [place] | | | | + + + + + + + | LIPASE | 2019-10-03 | [facility] | 65 | u/l | (missing) | | (U/L) IN | 13:48:17 | Health | | | | | SER/PLAS | | System - | | | | | | | [place] | | | | + + + + + + + | LIPASE | 2019-10-03 | [facility] | 65 | u/l | (missing) | | (U/L) IN | 13:48:17 | Health | | | | | SER/PLAS | | System - | | | | | | | [place] | | | | + + + + + + + | GLUCOSE, | 2019-10-03 | [facility] | 68 | mg/dl | (missing) | | RANDOM | 13:48:17 | Health | | | | | (MG/DL) IN | | System - | | | | | SER/PLAS | | [place] | | | | + + + + + + + | GLUCOSE, | 2019-10-03 | [facility] | 68 | mg/dl | (missing) | | RANDOM | 13:48:17 | Health | | | | | (MG/DL) IN | | System - | | | | | SER/PLAS | | [place] | | | | + + + + + + + | BLOOD UREA | 2019-10-03 | [facility] | 8 | mg/dl | (missing) | | NITROGEN | 13:48:17 | Health | | | | | (BUN) | | System - | | | | | (MG/DL) IN | | [place] | | | | | SER/PLAS | | | | | | + + + + + + + | BLOOD UREA | 2019-10-03 | [facility] | 8 | mg/dl | (missing) | | NITROGEN | 13:48:17 | Health | | | | | (BUN) | | System - | | | | | (MG/DL) IN | | [place] | | | | | SER/PLAS | | | | | | + + + + + + + | PH OF URINE | 2019-10-03 | [facility] | 8.0 | (missing) | (missing) | | | 13:48:17 | Health | | | | | | | System - | | | | | | | [place] | | | | + + + + + + + | PH OF URINE | 2019-10-03 | [facility] | 8.0 | (missing) | (missing) | | | 13:48:17 | Health | | | | | | | System - | | | | | | | [place] | | | | + + + + + + + | | 2019-10-03 | [facility] | 8.2 | % | (missing) | | MONOCYTES/10 | 13:48:17 | Health | | | | | 0 LEUKOCYTES | | System - | | | | | IN BLOOD BY | | [place] | | | | | AUTOMATED | [...] | | IN BLOOD BY | | [place] | | | | | AUTOMATED | [...] | | | BLOOD BY | | [place] | | | | | AUTOMATED | | | | | | | COUNT | | | | | | + + + + + + + | | 2019-10-03 | [facility] | 9.1 | k/mcl | (missing) | | LEUKOCYTES(1 | :48:17 | Health | | | | | 0*3/UL) IN | | System - | | | | | BLOOD BY | | [place] | | | | | AUTOMATED | | | | | | | COUNT | | | | | | + + + + + + + | CALCIUM | 2019-10-03 | [facility] | 9.5 | mg/dl | (missing) | | (MG/DL) IN | 48:17 | Health | | | | | SER/PLAS | | System - | | | | | | | [place] | | | | + + + + + + + | CALCIUM | 2019-10-03 | [facility] | 9.5 | mg/dl | (missing) | | (MG/DL) IN | 13:48:17 | Health | | | | | SER/PLAS | | System - | | | | | | | [place] | | | | + + + + + + + | PLATELET | 2019-10-03 | [facility] | 9.7 | fl | (missing) | | MEAN VOLUME | 13:48:17 | Health | | | | | (FL) IN | | System - | | | | | BLOOD BY | | [place] | | | | | AUTOMATED | [...] | | | BLOOD BY | | [place] | | | | | AUTOMATED | [...] | | | VOLUME (FL) | | [place] | | | | | BY AUTOMATED [...] | | | VOLUME (FL) | | [place] | | | | | BY AUTOMATED [...] | | | | | | | [place] | | | | + + + + + + + | CLARITY OF | 2019-10-03 | [facility] | Hazy | (missing) | (missing) | | URINE | 13:48:17 | Health | | | | | | | System - | | | | | | | [place] | | | | + + + + + + + | | 2019-10-03 | [facility] | Negative | (missing) | (missing) | | BARBITURATES | 13:48:17 | Health | | | | | PRESENCE IN | | System - | | | | | URINE BY | | [place] | | | | | SCREEN | [...] | | | | (PRESENCE) | | [place] | | | | | IN URINE [...] | | | | URINE | | [place] | | | | + + + + + + + | COCAINE | 2019-10-03 | [facility] | Negative | (missing) | (missing) | | (PRESENCE) | 13:48:17 | Health | | | | | IN URINE BY | | System - | | | | | SCREEN | | [place] | | | | | METHOD | | | | | | + + + + + + + | GLUCOSE IN | 2019-10-03 | [facility] | Negative | (missing) | (missing) | | URINE | 13:48:17 | Health | | | | | | | System - | | | | | | | [place] | | | | + + + + + + + | HEMOGLOBIN | 2019-10-03 | [facility] | Negative | (missing) | (missing) | | PRESENCE IN | 13:48:17 | Health | | | | | URINE | | System - | | | | | | | [place] | | | | + + + + + + + | KETONES IN | 2019-10-03 | [facility] | Negative | (missing) | (missing) | | URINE | 13:48:17 | Health | | | | | | | System - | | | | | | | [place] | | | | + + + + + + + | LEUKOCYTE | 2019-10-03 | [facility] | Negative | (missing) | (missing) | | ESTERASE | 13:48:17 | Health | | | | | PRESENCE IN | | System - | | | | | URINE BY | | [place] | | | | | TEST STRIP | | | | | | + + + + + + + | METHADONE | 2019-10-03 | [facility] | Negative | (missing) | (missing) | | (PRESENCE) | 13:48:17 | Health | | | | | IN URINE BY | | System - | | | | | SCREEN | | [place] | | | | | METHOD | | | | | | + + + + + + + | | 2019-10-03 | [facility] | Negative | (missing) | (missing) | | METHAMPHETAM | 13:48:17 | Health | | | | | INE | | System - | | | | | (PRESENCE) | | [place] | | | | | IN URINE [...] | | | | | | | [place] | | | | + + + + + + + | OPIATES | 2019-10-03 | [facility] | Negative | (missing) | (missing) | | (PRESENCE) | 13:48:17 | Health | | | | | IN URINE BY | | System - | | | | | SCREEN | | [place] | | | | | METHOD | | | | | | + + + + + + + | OXYCODONE | 2019-10-03 | [facility] | Negative | (missing) | (missing) | | (PRESENCE) | 13:48:17 | Health | | | | | IN URINE BY | | System - | | | | | SCREEN | | [place] | | | | | METHOD | | | | | | + + + + + + + | | 2019-10-03 | [facility] | Negative | (missing) | (missing) | | PHENCYCLIDIN | 13:48:17 | Health | | | | | E (PRESENCE) | | System - | | | | | IN URINE BY | | [place] | | | | | SCREEN | [...] | | | | | | | [place] | | | | + + + + + + + | PROTEIN IN | 2019-10-03 | [facility] | Negative | (missing) | (missing) | | URINE BY | 13:48:17 | Health | | | | | TEST STRIP | | System - | | | | | | | [place] | | | | + + + + + + + | TRICYCLIC | 2019-10-03 | [facility] | Negative | (missing) | (missing) | | ANTIDEPRESSA | 13:48:17 | Health | | | | | NTS | | System - | | | | | (PRESENCE) | | [place] | | | | | IN URINE | | | | | | + + + + + + + | | 2019-10-03 | [facility] | Negative | (missing) | (missing) | | PHENCYCLIDIN | 13:48:17 | Health | | | | | E (PRESENCE) | | System - | | | | | IN URINE BY | | [place] | | | | | SCREEN | [...] | | | | SCREEN | | [place] | | | | | METHOD | | | | | | + + + + + + + | TRICYCLIC | 2019-10-03 | [facility] | Negative | (missing) | (missing) | | ANTIDEPRESSA | 13:48:17 | Health | | | | | NTS | | System - | | | | | (PRESENCE) | | [place] | | | | | IN URINE | | | | | | + + + + + + + | | 2019-10-03 | [facility] | Negative | (missing) | (missing) | | METHAMPHETAM | 13:48:17 | Health | | | | | INE | | System - | | | | | (PRESENCE) | | [place] | | | | | IN URINE [...] | | | | SCREEN | | [place] | | | | | METHOD | | | | | | + + + + + + + | BILIRUBIN, | 2019-10-03 | [facility] | Negative | (missing) | (missing) | | TOTAL | 13:48:17 | Health | | | | | PRESENCE IN | | System - | | | | | URINE | | [place] | | | | + + + + + + + | GLUCOSE IN | 2019-10-03 | [facility] | Negative | (missing) | (missing) | | URINE | 13:48:17 | Health | | | | | | | System - | | | | | | | [place] | | | | + + + + + + + | COCAINE | 2019-10-03 | [facility] | Negative | (missing) | (missing) | | (PRESENCE) | 13:48:17 | Health | | | | | IN URINE BY | | System - | | | | | SCREEN | | [place] | | | | | METHOD | | | | | | + + + + + + + | NITRITE | 2019-10-03 | [facility] | Negative | (missing) | (missing) | | PRESENCE IN | 13:48:17 | Health | | | | | URINE | | System - | | | | | | | [place] | | | | + + + + + + + | KETONES IN | 2019-10-03 | [facility] | Negative | (missing) | (missing) | | URINE | 13:48:17 | Health | | | | | | | System - | | | | | | | [place] | | | | + + + + + + + | PROTEIN IN | 2019-10-03 | [facility] | Negative | (missing) | (missing) | | URINE BY | 13:48:17 | Health | | | | | TEST STRIP | | System - | | | | | | | [place] | | | | + + + + + + + | | 2019-10-03 | [facility] | Negative | (missing) | (missing) | | BARBITURATES | 13:48:17 | Health | | | | | PRESENCE IN | | System - | | | | | URINE BY | | [place] | | | | | SCREEN | [...] | | | | (PRESENCE) | | [place] | | | | | IN URINE [...] | | | | SCREEN | | [place] | | | | | METHOD | | | | | | + + + + + + + | HEMOGLOBIN | 2019-10-03 | [facility] | Negative | (missing) | (missing) | | PRESENCE IN | 13:48:17 | Health | | | | | URINE | | System - | | | | | | | [place] | | | | + + + + + + + | LEUKOCYTE | 2019-10-03 | [facility] | Negative | (missing) | (missing) | | ESTERASE | 13:48:17 | Health | | | | | PRESENCE IN | | System - | | | | | URINE BY | | [place] | | | | | TEST STRIP | | | | | | + + + + + + + | POCT | 2019-10-03 | [facility] | Negative | (missing) | (missing) | | | 13:48:17 | Health | | | | | TEST URINE | | System - | | | | | | | [place] | | | | + + + + + + + | THC | 2019-10-03 | [facility] | Presumptive | (missing) | (missing) | | (CANNABINOID | 13:48:17 | Health | Positive | | | | ) IN URINE | | System - | | | | | BY SCREEN | | [place] | | | | | METHOD | | | | | | + + + + + + + | THC | 2019-10-03 | [facility] | Presumptive | (missing) | (missing) | | (CANNABINOID | 13:48:17 | Health | Positive | | | | ) IN URINE | | System - | | | | | BY SCREEN | | [place] | | | | | METHOD | | | | | | + + + + + + + | AMPHETAMINE | 2019-10-03 | [facility] | Presumptive | (missing) | (missing) | | (PRESENCE) | 13:48:17 | Health | Positive | | | | IN URINE BY | | System - | | | | | SCREEN | | [place] | | | | | METHOD | | | | | | + + + + + + + | AMPHETAMINE | 2019-10-03 | [facility] | Presumptive | (missing) | (missing) | | (PRESENCE) | 13:48:17 | Health | Positive | | | | IN URINE BY | | System - | | | | | SCREEN | | [place] | | | | | METHOD | | | | | | + + + + + + + | COLOR OF | 2019-10-03 | [facility] | Yellow | (missing) | (missing) | | URINE | 13:48:17 | Health | | | | | | | System - | | | | | | | [place] | | | | + + + + + + + | COLOR OF | 2019-10-03 | [facility] | Yellow | (missing) | (missing) | | URINE | 13:48:17 | Health | | | | | | | System - | | | | | | | [place] | | | | + + + [...] | | | | SEDIMENT | | [place] | | | | + + + + + + + | SPECIFIC | 2019-10-03 | [facility] | 1.020 | (missing) | (missing) | | GRAVITY OF | 14:39:44 | Health | | | | | URINE BY | | System - | | | | | AUTOMATED | | [place] | | | | | TEST STRIP | | | | | | + + + + + + + | RBC (#/HPF) | 2019-10-03 | [facility] | 2 | /hpf | (missing) | | IN URINE | 14:39:44 | Health | | | | | SEDIMENT | | System - | | | | | | | [place] | | | | + + + + + + + | SQUAMOUS | 2019-10-03 | [facility] | 20 | /hpf | (missing) | | EPITHELIAL | 14:39:44 | Health | | | | | CELLS | | System - | | | | | (#/HPF) IN | | [place] | | | | | URINE | [...] | | | | | | | [place] | | | | + + + + + + + | WBC | 2019-10-03 | [facility] | 3 | /hpf | (missing) | | (LEUKOCYTE) | 14:39:44 | Health | | | | | (#/HPF) IN | | System - | | | | | URINE | | [place] | | | | | SEDIMENT | | | | | | + + + + + + + | | 2019-10-03 | [facility] | 4.0 | mg/dl | (missing) | | UROBILINOGEN | 14:39:44 | Health | | | | | (MG/DL) IN | | System - | | | | | URINE BY | | [place] | | | | | TEST STRIP | | | | | | + + + + + + + | PH OF URINE | 2019-10-03 | [facility] | 8.0 | (missing) | (missing) | | | 14:39:44 | Health | | | | | | | System - | | | | | | | [place] | | | | + + + + + + + | CLARITY OF | 2019-10-03 | [facility] | Hazy | (missing) | (missing) | | URINE | 14:39:44 | Health | | | | | | | System - | | | | | | | [place] | | | | + + + + + + + | BILIRUBIN, | 2019-10-03 | [facility] | Negative | (missing) | (missing) | | TOTAL | 14:39:44 | Health | | | | | PRESENCE IN | | System - | | | | | URINE | | [place] | | | | + + + + + + + | GLUCOSE IN | 2019-10-03 | [facility] | Negative | (missing) | (missing) | | URINE | 14:39:44 | Health | | | | | | | System - | | | | | | | [place] | | | | + + + + + + + | NITRITE | 2019-10-03 | [facility] | Negative | (missing) | (missing) | | PRESENCE IN | 14:39:44 | Health | | | | | URINE | | System - | | | | | | | [place] | | | | + + + + + + + | KETONES IN | 2019-10-03 | [facility] | Negative | (missing) | (missing) | | URINE | 14:39:44 | Health | | | | | | | System - | | | | | | | [place] | | | | + + + + + + + | PROTEIN IN | 2019-10-03 | [facility] | Negative | (missing) | (missing) | | URINE BY | 14:39:44 | Health | | | | | TEST STRIP | | System - | | | | | | | [place] | | | | + + + + + + + | HEMOGLOBIN | 2019-10-03 | [facility] | Negative | (missing) | (missing) | | PRESENCE IN | 14:39:44 | Health | | | | | URINE | | System - | | | | | | | [place] | | | | + + + + + + + | LEUKOCYTE | 2019-10-03 | [facility] | Negative | (missing) | (missing) | | ESTERASE | 14:39:44 | Health | | | | | PRESENCE IN | | System - | | | | | URINE BY | | [place] | | | | | TEST STRIP | | | | | | + + + + + + + | URINE | 2019-10-03 | [facility] | Normal | (missing) | (missing) | | CULTURE | 14:39:44 | Health | urogenital | | | | | | System - | microbiota | | | | | | [place] | | | | + + + + + + + | URINE | 2019-10-03 | [facility] | Normal | (missing) | (missing) | | CULTURE | 14:39:44 | Health | urogenital | | | | | | System - | microbiota | | | | | | [place] | | | | + + + + + + + | COLOR OF | 2019-10-03 | [facility] | Yellow | (missing) | (missing) | | URINE | 14:39:44 | Health | | | | | | | System - | | | | | | | [place] | | | | + + + [...] | | | | SER/PLAS | | [place] | | | | + + + + + + + | TSH | 2019-10-03 | [facility] | 0.81 | mciu/ml | (missing) | | (THYROTROPIN | 16:33:41 | Health | | | | | ) (MIU/L) IN | | System - | | | | | SER/PLAS | | [place] | | | | + + + + + + + | COVID19 | 2019-10-03 | [facility] | Negative | (missing) | (missing) | | (PCR) | 16:33:41 | Health | | | | | | | System - | | | | | | | [place] | | | | + + + + + + + | COVID19 | 2019-10-03 | [facility] | Negative | (missing) | (missing) | | (PCR) | 16:33:41 | Health | | | | | | | System - | | | | | | | [place] | | | | + + + [...] ? | | | RATE) | | [place] | | | | | ML/MIN/1.73 | [...] ? | | | RATE) | | [place] | | | | | ML/MIN/1.73 | [...] | | | | COUNT | | [place] | | | | + + + + + + + | NRBC/100 | 2020-06-22 | [facility] | 0.0 | % | (missing) | | WBCS BY | 18:08 | Health | | | | | AUTOMATED | | System - | | | | | COUNT | | [place] | | | | + + + + + + + | | 2020-06-22 | [facility] | 0.0 | k/mcl | (missing) | | NRBC(10*3/UL | 18:08 | Health | | | | | ) IN BLOOD | | System - | | | | | BY AUTOMATED | | [place] | | | | | COUNT | | | | | | + + + + + + + | | 2020-06-22 | [facility] | 0.0 | k/mcl | (missing) | | NRBC(10*3/UL | 18:08 | Health | | | | | ) IN BLOOD | | System - | | | | | BY AUTOMATED | | [place] | | | | | COUNT | | | | | | + + + + + + + | IMMATURE | 2020-06-22 | [facility] | 0.07 | k/mcl | (missing) | | GRANULOCYTE | 18:08 | Health | | | | | (ABS) | | System - | | | | | | | [place] | | | | + + + + + + + | IMMATURE | 2020-06-22 | [facility] | 0.07 | k/mcl | (missing) | | GRANULOCYTE | 18:08 | Health | | | | | (ABS) | | System - | | | | | | | [place] | | | | + + + + + + + | BASOPHILS | 2020-06-22 | [facility] | 0.1 | k/mcl | (missing) | | (10*3/UL) IN | 18:08 | Health | | | | | BLOOD BY | | System - | | | | | AUTOMATED | | [place] | | | | | COUNT | | | | | | + + + + + + + | BASOPHILS | 2020-06-22 | [facility] | 0.1 | k/mcl | (missing) | | (10*3/UL) IN | 18:08 | Health | | | | | BLOOD BY | | System - | | | | | AUTOMATED | | [place] | | | | | COUNT | | | | | | + + + + + + + | BILIRUBIN | 2020-06-22 | [facility] | 0.2 | mg/dl | (missing) | | TOTAL | 18:08 | Health | | | | | (MG/DL) IN | | System - | | | | | SER/PLAS | | [place] | | | | + + + + + + + | BILIRUBIN | 2020-06-22 | [facility] | 0.2 | mg/dl | (missing) | | TOTAL | 18:08 | Health | | | | | (MG/DL) IN | | System - | | | | | SER/PLAS | | [place] | | | | + + + + + + + | | 2020-06-22 | [facility] | 0.2-1.0 | mg/dl | (missing) | | UROBILINOGEN | 18:08 | Health | | | | | (MG/DL) IN | | System - | | | | | URINE BY | | [place] | | | | | TEST STRIP | | | | | | + + + + + + + | | 2020-06-22 | [facility] | 0.2-1.0 | mg/dl | (missing) | | UROBILINOGEN | 18:08 | Health | | | | | (MG/DL) IN | | System - | | | | | URINE BY | | [place] | | | | | TEST STRIP | | | | | | + + + + + + + | EOSINOPHILS | 2020-06-22 | [facility] | 0.3 | k/mcl | (missing) | | (10*3/UL) | 18:08 | Health | | | | | IN BLOOD BY | | System - | | | | | AUTOMATED | | [place] | | | | | COUNT | | | | | | + + + + + + + | EOSINOPHILS | 2020-06-22 | [facility] | 0.3 | k/mcl | (missing) | | (10*3/UL) | 18:08 | Health | | | | | IN BLOOD BY | | System - | | | | | AUTOMATED | | [place] | | | | | COUNT | | | | | | + + + + + + + | IMMATURE | 2020-06-22 | [facility] | 0.6 | % | (missing) | | GRANULOCYTE | 18:08 | Health | | | | | % (AUTO) | | System - | | | | | | | [place] | | | | + + + + + + + | IMMATURE | 2020-06-22 | [facility] | 0.6 | % | (missing) | | GRANULOCYTE | 18:08 | Health | | | | | % (AUTO) | | System - | | | | | | | [place] | | | | + + + + + + + | | 2020-06-22 | [facility] | 0.7 | % | (missing) | | BASOPHILS/10 | 18:08 | Health | | | | | 0 LEUKOCYTES | | System - | | | | | IN BLOOD BY | | [place] | | | | | AUTOMATED | [...] | | IN BLOOD BY | | [place] | | | | | AUTOMATED | [...] | | | | | | | [place] | | | | + + + + + + + | CREATININE | 2020-06-22 | [facility] | 0.7 | mg/dl | (missing) | | (MG/DL) IN | 18:08 | Health | | | | | SER/PLAS | | System - | | | | | | | [place] | | | | + + + + + + + | MONOCYTES | 2020-06-22 | [facility] | 0.9 | k/mcl | (missing) | | (10*3/UL) IN | 18:08 | Health | | | | | BLOOD BY | | System - | | | | | AUTOMATED | | [place] | | | | | COUNT | | | | | | + + + + + + + | MONOCYTES | 2020-06-22 | [facility] | 0.9 | k/mcl | (missing) | | (10*3/UL) IN | 18:08 | Health | | | | | BLOOD BY | | System - | | | | | AUTOMATED | | [place] | | | | | COUNT | | | | | | + + + + + + + | HEMOGLOBIN | 2020-06-22 | [facility] | 1 | (missing) | (missing) | | PRESENCE IN | 18:08 | Health | | | | | URINE | | System - | | | | | | | [place] | | | | + + + + + + + | HEMOGLOBIN | 2020-06-22 | [facility] | 1 | (missing) | (missing) | | PRESENCE IN | 18:08 | Health | | | | | URINE | | System - | | | | | | | [place] | | | | + + + + + + + | BACTERIA | 2020-06-22 | [facility] | 1 | /hpf | (missing) | | (#/HPF) IN | 18:08 | Health | | | | | URINE | | System - | | | | | | | [place] | | | | + + + + + + + | BACTERIA | 2020-06-22 | [facility] | 1 | /hpf | (missing) | | (#/HPF) IN | 18:08 | Health | | | | | URINE | | System - | | | | | | | [place] | | | | + + + + + + + | SPECIFIC | 2020-06-22 | [facility] | 1.030 | (missing) | (missing) | | GRAVITY OF | 18:08 | Health | | | | | URINE BY | | System - | | | | | AUTOMATED | | [place] | | | | | TEST STRIP | | | | | | + + + + + + + | SPECIFIC | 2020-06-22 | [facility] | 1.030 | (missing) | (missing) | | GRAVITY OF | 18:08 | Health | | | | | URINE BY | | System - | | | | | AUTOMATED | | [place] | | | | | TEST STRIP | | | | | | + + + + + + + | | 2020-06-22 | [facility] | 1.58 | :1 | (missing) | | ALBUMIN/GLOB | 18:08 | Health | | | | | ULIN (A/G | | System - | | | | | RATIO) IN | | [place] | | | | | SER/PLAS | | | | | | + + + + + + + | | 2020-06-22 | [facility] | 1.58 | :1 | (missing) | | ALBUMIN/GLOB | 18:08 | Health | | | | | ULIN (A/G | | System - | | | | | RATIO) IN | | [place] | | | | | SER/PLAS | | | | | | + + + + + + + | CHLORIDE | 2020-06-22 | [facility] | 103 | mmol/l | (missing) | | (MMOL/L) IN | 18:08 | Health | | | | | SER/PLAS | | System - | | | | | | | [place] | | | | + + + + + + + | CHLORIDE | 2020-06-22 | [facility] | 103 | mmol/l | (missing) | | (MMOL/L) IN | 18:08 | Health | | | | | SER/PLAS | | System - | | | | | | | [place] | | | | + + + + + + + | | 2020-06-22 | [facility] | 11.8 | k/mcl | (missing) | | LEUKOCYTES(1 | 18:08 | Health | | | | | 0*3/UL) IN | | System - | | | | | BLOOD BY | | [place] | | | | | AUTOMATED | [...] | | | BLOOD BY | | [place] | | | | | AUTOMATED | [...] | | | | WIDTH | | [place] | | | | | (RATIO) BY [...] | | | | WIDTH | | [place] | | | | | (RATIO) BY [...] | | | | | | | [place] | | | | + + + + + + + | ANION GAP | 2020-06-22 | [facility] | 12.0 | mmol/l | (missing) | | IN SER/PLAS | 18:08 | Health | | | | | | | System - | | | | | | | [place] | | | | + + + + + + + | SODIUM | 2020-06-22 | [facility] | 139 | mmol/l | (missing) | | (MMOL/L) IN | 18:08 | Health | | | | | SER/PLAS | | System - | | | | | | | [place] | | | | + + + + + + + | SODIUM | 2020-06-22 | [facility] | 139 | mmol/l | (missing) | | (MMOL/L) IN | 18:08 | Health | | | | | SER/PLAS | | System - | | | | | | | [place] | | | | + + + + + + + | HEMOGLOBIN | 2020-06-22 | [facility] | 14.7 | g/dl | (missing) | | (G/DL) IN | 18:08 | Health | | | | | BLOOD | | System - | | | | | | | [place] | | | | + + + + + + + | HEMOGLOBIN | 2020-06-22 | [facility] | 14.7 | g/dl | (missing) | | (G/DL) IN | 18:08 | Health | | | | | BLOOD | | System - | | | | | | | [place] | | | | + + + + + + + | BLOOD UREA | 2020-06-22 | [facility] | 15 | mg/dl | (missing) | | NITROGEN | 18:08 | Health | | | | | (BUN) | | System - | | | | | (MG/DL) IN | | [place] | | | | | SER/PLAS | | | | | | + + + + + + + | BLOOD UREA | 2020-06-22 | [facility] | 15 | mg/dl | (missing) | | NITROGEN | 18:08 | Health | | | | | (BUN) | | System - | | | | | (MG/DL) IN | | [place] | | | | | SER/PLAS | | | | | | + + + + + + + | ALANINE | 2020-06-22 | [facility] | 16 | u/l | (missing) | | AMINOTRANSFE | 18:08 | Health | | | | | RASE (SGPT) | | System - | | | | | (U/L) IN | | [place] | | | | | SER/PLAS | | | | | | + + + + + + + | ALANINE | 2020-06-22 | [facility] | 16 | u/l | (missing) | | AMINOTRANSFE | 18:08 | Health | | | | | RASE (SGPT) | | System - | | | | | (U/L) IN | | [place] | | | | | SER/PLAS | | | | | | + + + + + + + | ASPARTATE | 2020-06-22 | [facility] | 18 | u/l | (missing) | | AMINOTRANSFE | 18:08 | Health | | | | | RASE (SGOT) | | System - | | | | | (U/L) IN | | [place] | | | | | SER/PLAS | | | | | | + + + + + + + | ASPARTATE | 2020-06-22 | [facility] | 18 | u/l | (missing) | | AMINOTRANSFE | 18:08 | Health | | | | | RASE (SGOT) | | System - | | | | | (U/L) IN | | [place] | | | | | SER/PLAS | | | | | | + + + + + + + | WBC | 2020-06-22 | [facility] | 2 | /hpf | (missing) | | (LEUKOCYTE) | 18:08 | Health | | | | | (#/HPF) IN | | System - | | | | | URINE | | [place] | | | | | SEDIMENT | | | | | | + + + + + + + | WBC | 2020-06-22 | [facility] | 2 | /hpf | (missing) | | (LEUKOCYTE) | 18:08 | Health | | | | | (#/HPF) IN | | System - | | | | | URINE | | [place] | | | | | SEDIMENT | | | | | | + + + + + + + | TSH | 2020-06-22 | [facility] | 2.20 | mciu/ml | (missing) | | (THYROTROPIN | 18:08 | Health | | | | | ) (MIU/L) IN | | System - | | | | | SER/PLAS | | [place] | | | | + + + + + + + | TSH | 2020-06-22 | [facility] | 2.20 | mciu/ml | (missing) | | (THYROTROPIN | 18:08 | Health | | | | | ) (MIU/L) IN | | System - | | | | | SER/PLAS | | [place] | | | | + + + + + + + | GLOBULIN | 2020-06-22 | [facility] | 2.6 | g/dl | (missing) | | (G/DL) IN | 18:08 | Health | | | | | SER/PLAS | | System - | | | | | | | [place] | | | | + + + + + + + | GLOBULIN | 2020-06-22 | [facility] | 2.6 | g/dl | (missing) | | (G/DL) IN | 18:08 | Health | | | | | SER/PLAS | | System - | | | | | | | [place] | | | | + + + + + + + | | 2020-06-22 | [facility] | 2.9 | % | (missing) | | EOSINOPHILS/ | 18:08 | Health | | | | | 100 | | System - | | | | | LEUKOCYTES | | [place] | | | | | IN BLOOD [...] | | | | LEUKOCYTES | | [place] | | | | | IN BLOOD [...] | | | (MMOL/L) IN | | [place] | | | | | SER/PLAS | | | | | | + + + + + + + | CARBON | 2020-06-22 | [facility] | 24 | mmol/l | (missing) | | DIOXIDE | 18:08 | Health | | | | | (CO2), TOTAL | | System - | | | | | (MMOL/L) IN | | [place] | | | | | SER/PLAS | | | | | | + + + + + + + | CALCIUM | 2020-06-22 | [facility] | 3 | /hpf | (missing) | | OXALATE | 18:08 | Health | | | | | CRYSTALS | | System - | | | | | (#/HPF) IN | | [place] | | | | | URINE | | | | | | + + + + + + + | CALCIUM | 2020-06-22 | [facility] | 3 | /hpf | (missing) | | OXALATE | 18:08 | Health | | | | | CRYSTALS | | System - | | | | | (#/HPF) IN | | [place] | | | | | URINE | | | | | | + + + + + + + | POTASSIUM | 2020-06-22 | [facility] | 3.6 | mmol/l | (missing) | | (MMOL/L) IN | 18:08 | Health | | | | | SER/PLAS | | System - | | | | | | | [place] | | | | + + + + + + + | POTASSIUM | 2020-06-22 | [facility] | 3.6 | mmol/l | (missing) | | (MMOL/L) IN | 18:08 | Health | | | | | SER/PLAS | | System - | | | | | | | [place] | | | | + + + + + + + | ERYTHROCYTE | 2020-06-22 | [facility] | 30.9 | pg | (missing) | | MEAN | 18:08 | Health | | | | | CORPUSCULAR | | System - | | | | | HEMOGLOBIN | | [place] | | | | | (PG) BY [...] | | | | HEMOGLOBIN | | [place] | | | | | (PG) BY [...] | | | | HEMOGLOBIN | | [place] | | | | | CONCENTRATIO | [...] | | | | HEMOGLOBIN | | [place] | | | | | CONCENTRATIO | [...] | | | | AUTOMATED | | [place] | | | | | COUNT | | | | | | + + + + + + + | PLATELETS | 2020-06-22 | [facility] | 376 | k/mcl | (missing) | | (10*3/UL) IN | 18:08 | Health | | | | | BLOOD | | System - | | | | | AUTOMATED | | [place] | | | | | COUNT | | | | | | + + + + + + + | ALBUMIN | 2020-06-22 | [facility] | 4.1 | g/dl | (missing) | | (G/DL) IN | 18:08 | Health | | | | | SER/PLAS | | System - | | | | | | | [place] | | | | + + + + + + + | ALBUMIN | 2020-06-22 | [facility] | 4.1 | g/dl | (missing) | | (G/DL) IN | 18:08 | Health | | | | | SER/PLAS | | System - | | | | | | | [place] | | | | + + + + + + + | | 2020-06-22 | [facility] | 4.76 | m/mcl | (missing) | | ERYTHROCYTES | 18:08 | Health | | | | | (10*6/UL) | | System - | | | | | IN BLOOD BY | | [place] | | | | | AUTOMATED | [...] | | IN BLOOD BY | | [place] | | | | | AUTOMATED | [...] | | | | AUTOMATED | | [place] | | | | | COUNT | | | | | | + + + + + + + | LYMPHOCYTES | 2020-06-22 | [facility] | 4.9 | k/mcl | (missing) | | (10*3/UL) | 18:08 | Health | | | | | IN BLOOD BY | | System - | | | | | AUTOMATED | | [place] | | | | | COUNT | | | | | | + + + + + + + | | 2020-06-22 | [facility] | 41.7 | % | (missing) | | LYMPHOCYTES/ | 18:08 | Health | | | | | 100 | | System - | | | | | LEUKOCYTES | | [place] | | | | | IN BLOOD [...] | | | | LEUKOCYTES | | [place] | | | | | IN BLOOD [...] | | | | AUTOMATED | | [place] | | | | | COUNT | | | | | | + + + + + + + | HEMATOCRIT | 2020-06-22 | [facility] | 43.1 | % | (missing) | | (%) IN BLOOD | 18:08 | Health | | | | | BY | | System - | | | | | AUTOMATED | | [place] | | | | | COUNT | | | | | | + + + + + + + | | 2020-06-22 | [facility] | 46.9 | % | (missing) | | NEUTROPHILS/ | 18:08 | Health | | | | | 100 | | System - | | | | | LEUKOCYTES | | [place] | | | | | IN BLOOD [...] | | | | LEUKOCYTES | | [place] | | | | | IN BLOOD [...] | | | (#/HPF) IN | | [place] | | | | | URINE | [...] | | | (#/HPF) IN | | [place] | | | | | URINE | [...] | | | | | | | [place] | | | | + + + + + + + | PH OF URINE | 2020-06-22 | [facility] | 5.0 | (missing) | (missing) | | | 18:08 | Health | | | | | | | System - | | | | | | | [place] | | | | + + + + + + + | NEUTROPHILS | 2020-06-22 | [facility] | 5.5 | k/mcl | (missing) | | (10*3/UL) | 18:08 | Health | | | | | IN BLOOD BY | | System - | | | | | AUTOMATED | | [place] | | | | | COUNT | | | | | | + + + + + + + | NEUTROPHILS | 2020-06-22 | [facility] | 5.5 | k/mcl | (missing) | | (10*3/UL) | 18:08 | Health | | | | | IN BLOOD BY | | System - | | | | | AUTOMATED | | [place] | | | | | COUNT | | | | | | + + + + + + + | PROTEIN | 2020-06-22 | [facility] | 6.7 | g/dl | (missing) | | (G/DL) IN | 18:08 | Health | | | | | SER/PLAS | | System - | | | | | | | [place] | | | | + + + + + + + | PROTEIN | 2020-06-22 | [facility] | 6.7 | g/dl | (missing) | | (G/DL) IN | 18:08 | Health | | | | | SER/PLAS | | System - | | | | | | | [place] | | | | + + + + + + + | RBC (#/HPF) | 2020-06-22 | [facility] | 7 | /hpf | (missing) | | IN URINE | 18:08 | Health | | | | | SEDIMENT | | System - | | | | | | | [place] | | | | + + + + + + + | RBC (#/HPF) | 2020-06-22 | [facility] | 7 | /hpf | (missing) | | IN URINE | 18:08 | Health | | | | | SEDIMENT | | System - | | | | | | | [place] | | | | + + + + + + + | | 2020-06-22 | [facility] | 7.2 | % | (missing) | | MONOCYTES/10 | 18:08 | Health | | | | | 0 LEUKOCYTES | | System - | | | | | IN BLOOD BY | | [place] | | | | | AUTOMATED | [...] | | IN BLOOD BY | | [place] | | | | | AUTOMATED | [...] | | | | SER/PLAS | | [place] | | | | + + + + + + + | ALKALINE | 2020-06-22 | [facility] | 71 | u/l | (missing) | | PHOSPHATASE | 18:08 | Health | | | | | (U/L) IN | | System - | | | | | SER/PLAS | | [place] | | | | + + + + + + + | PLATELET | 2020-06-22 | [facility] | 9.3 | fl | (missing) | | MEAN VOLUME | 18:08 | Health | | | | | (FL) IN | | System - | | | | | BLOOD BY | | [place] | | | | | AUTOMATED | [...] | | | BLOOD BY | | [place] | | | | | AUTOMATED | [...] | | | | | | | [place] | | | | + + + + + + + | CALCIUM | 2020-06-22 | [facility] | 9.3 | mg/dl | (missing) | | (MG/DL) IN | 18:08 | Health | | | | | SER/PLAS | | System - | | | | | | | [place] | | | | + + + + + + + | ERYTHROCYTE | 2020-06-22 | [facility] | 90.5 | fl | (missing) | | MEAN | 18:08 | Health | | | | | CORPUSCULAR | | System - | | | | | VOLUME (FL) | | [place] | | | | | BY AUTOMATED [...] | | | VOLUME (FL) | | [place] | | | | | BY AUTOMATED [...] | | | | SER/PLAS | | [place] | | | | + + + + + + + | GLUCOSE, | 2020-06-22 | [facility] | 93 | mg/dl | (missing) | | RANDOM | 18:08 | Health | | | | | (MG/DL) IN | | System - | | | | | SER/PLAS | | [place] | | | | + + + + + + + | CLARITY OF | 2020-06-22 | [facility] | Hazy | (missing) | (missing) | | URINE | 18:08 | Health | | | | | | | System - | | | | | | | [place] | | | | + + + + + + + | CLARITY OF | 2020-06-22 | [facility] | Darryl | (missing) | (missing) | | URINE | 18:08 | Health | | | | | | | System - | | | | | | | [place] | | | | + + + + + + + | ASA | 2020-06-22 | [facility] | Negative | (missing) | (missing) | | (ASCORBIC | 18:08 | Health | | | | | ACID) IN | | System - | | | | | URINE | | [place] | | | | + + + + + + + | | 2020-06-22 | [facility] | Negative | (missing) | (missing) | | BARBITURATES | 18:08 | Health | | | | | PRESENCE IN | | System - | | | | | URINE BY | | [place] | | | | | SCREEN | [...] | | | | (PRESENCE) | | [place] | | | | | IN URINE [...] | | | | URINE | | [place] | | | | + + + + + + + | COCAINE | 2020-06-22 | [facility] | Negative | (missing) | (missing) | | (PRESENCE) | 18:08 | Health | | | | | IN URINE BY | | System - | | | | | SCREEN | | [place] | | | | | METHOD | | | | | | + + + + + + + | GLUCOSE IN | 2020-06-22 | [facility] | Negative | (missing) | (missing) | | URINE | 18:08 | Health | | | | | | | System - | | | | | | | [place] | | | | + + + + + + + | KETONES IN | 2020-06-22 | [facility] | Negative | (missing) | (missing) | | URINE | 18:08 | Health | | | | | | | System - | | | | | | | [place] | | | | + + + + + + + | LEUKOCYTE | 2020-06-22 | [facility] | Negative | (missing) | (missing) | | ESTERASE | 18:08 | Health | | | | | PRESENCE IN | | System - | | | | | URINE BY | | [place] | | | | | TEST STRIP | | | | | | + + + + + + + | METHADONE | 2020-06-22 | [facility] | Negative | (missing) | (missing) | | (PRESENCE) | 18:08 | Health | | | | | IN URINE BY | | System - | | | | | SCREEN | | [place] | | | | | METHOD | | | | | | + + + + + + + | NITRITE | 2020-06-22 | [facility] | Negative | (missing) | (missing) | | PRESENCE IN | 18:08 | Health | | | | | URINE | | System - | | | | | | | [place] | | | | + + + + + + + | OPIATES | 2020-06-22 | [facility] | Negative | (missing) | (missing) | | (PRESENCE) | 18:08 | Health | | | | | IN URINE BY | | System - | | | | | SCREEN | | [place] | | | | | METHOD | | | | | | + + + + + + + | OXYCODONE | 2020-06-22 | [facility] | Negative | (missing) | (missing) | | (PRESENCE) | 18:08 | Health | | | | | IN URINE BY | | System - | | | | | SCREEN | | [place] | | | | | METHOD | | | | | | + + + + + + + | | 2020-06-22 | [facility] | Negative | (missing) | (missing) | | PHENCYCLIDIN | 18:08 | Health | | | | | E (PRESENCE) | | System - | | | | | IN URINE BY | | [place] | | | | | SCREEN | [...] | | | | | | | [place] | | | | + + + + + + + | THC | 2020-06-22 | [facility] | Negative | (missing) | (missing) | | (CANNABINOID | 18:08 | Health | | | | | ) IN URINE | | System - | | | | | BY SCREEN | | [place] | | | | | METHOD | | | | | | + + + + + + + | TRICYCLIC | 2020-06-22 | [facility] | Negative | (missing) | (missing) | | ANTIDEPRESSA | 18:08 | Health | | | | | NTS | | System - | | | | | (PRESENCE) | | [place] | | | | | IN URINE | | | | | | + + + + + + + | | 2020-06-22 | [facility] | Negative | (missing) | (missing) | | PHENCYCLIDIN | 18:08 | Health | | | | | E (PRESENCE) | | System - | | | | | IN URINE BY | | [place] | | | | | SCREEN | [...] | | | BY SCREEN | | [place] | | | | | METHOD | | | | | | + + + + + + + | ASA | 2020-06-22 | [facility] | Negative | (missing) | (missing) | | (ASCORBIC | 18:08 | Health | | | | | ACID) IN | | System - | | | | | URINE | | [place] | | | | + + + + + + + | OPIATES | 2020-06-22 | [facility] | Negative | (missing) | (missing) | | (PRESENCE) | 18:08 | Health | | | | | IN URINE BY | | System - | | | | | SCREEN | | [place] | | | | | METHOD | | | | | | + + + + + + + | TRICYCLIC | 2020-06-22 | [facility] | Negative | (missing) | (missing) | | ANTIDEPRESSA | 18:08 | Health | | | | | NTS | | System - | | | | | (PRESENCE) | | [place] | | | | | IN URINE | | | | | | + + + + + + + | OXYCODONE | 2020-06-22 | [facility] | Negative | (missing) | (missing) | | (PRESENCE) | 18:08 | Health | | | | | IN URINE BY | | System - | | | | | SCREEN | | [place] | | | | | METHOD | | | | | | + + + + + + + | BILIRUBIN, | 2020-06-22 | [facility] | Negative | (missing) | (missing) | | TOTAL | 18:08 | Health | | | | | PRESENCE IN | | System - | | | | | URINE | | [place] | | | | + + + + + + + | BHCG QUAL | 2020-06-22 | [facility] | Negative | (missing) | (missing) | | (CHORIOGONAD | 18:08 | Health | | | | | OTROPIN) IN | | System - | | | | | SER/PLAS | | [place] | | | | + + + + + + + | GLUCOSE IN | 2020-06-22 | [facility] | Negative | (missing) | (missing) | | URINE | 18:08 | Health | | | | | | | System - | | | | | | | [place] | | | | + + + + + + + | COCAINE | 2020-06-22 | [facility] | Negative | (missing) | (missing) | | (PRESENCE) | 18:08 | Health | | | | | IN URINE BY | | System - | | | | | SCREEN | | [place] | | | | | METHOD | | | | | | + + + + + + + | NITRITE | 2020-06-22 | [facility] | Negative | (missing) | (missing) | | PRESENCE IN | 18:08 | Health | | | | | URINE | | System - | | | | | | | [place] | | | | + + + + + + + | KETONES IN | 2020-06-22 | [facility] | Negative | (missing) | (missing) | | URINE | 18:08 | Health | | | | | | | System - | | | | | | | [place] | | | | + + + + + + + | PROTEIN IN | 2020-06-22 | [facility] | Negative | (missing) | (missing) | | URINE BY | 18:08 | Health | | | | | TEST STRIP | | System - | | | | | | | [place] | | | | + + + + + + + | | 2020-06-22 | [facility] | Negative | (missing) | (missing) | | BARBITURATES | 18:08 | Health | | | | | PRESENCE IN | | System - | | | | | URINE BY | | [place] | | | | | SCREEN | [...] | | | | (PRESENCE) | | [place] | | | | | IN URINE [...] | | | | SCREEN | | [place] | | | | | METHOD | | | | | | + + + + + + + | LEUKOCYTE | 2020-06-22 | [facility] | Negative | (missing) | (missing) | | ESTERASE | 18:08 | Health | | | | | PRESENCE IN | | System - | | | | | URINE BY | | [place] | | | | | TEST STRIP | | | | | | + + + + + + + | [facility]CG QUAL | 2020-06-22 | [facility] | Negative | (missing) | (missing) | | (CHORIOGONAD | 18:08 | Health | | | | | OTROPIN) IN | | System - | | | | | SER/PLAS | | [place] | | | | + + + + + + + | | 2020-06-22 | [facility] | Presumptive | (missing) | (missing) | | METHAMPHETAM | 18:08 | Health | Positive | | | | INE | | System - | | | | | (PRESENCE) | | [place] | | | | | IN URINE [...] | | | | SCREEN | | [place] | | | | | METHOD | | | | | | + + + + + + + | | 2020-06-22 | [facility] | Presumptive | (missing) | (missing) | | METHAMPHETAM | 18:08 | Health | Positive | | | | INE | | System - | | | | | (PRESENCE) | | [place] | | | | | IN URINE [...] | | | | SCREEN | | [place] | | | | | METHOD | | | | | | + + + + + + + | MUCUS | 2020-06-22 | [facility] | Trace | (missing) | (missing) | | (#/HPF) IN | 18:08 | Health | | | | | URINE | | System - | | | | | SEDIMENT | | [place] | | | | + + + + + + + | MUCUS | 2020-06-22 | [facility] | Trace | (missing) | (missing) | | (#/HPF) IN | 18:08 | Health | | | | | URINE | | System - | | | | | SEDIMENT | | [place] | | | | + + + + + + + | COLOR OF | 2020-06-22 | [facility] | Yellow | (missing) | (missing) | | URINE | 18:08 | Health | | | | | | | System - | | | | | | | [place] | | | | + + + + + + + | COLOR OF | 2020-06-22 | [facility] | Yellow | (missing) | (missing) | | URINE | 18:08 | Health | | | | | | | System - | | | | | | | [place] | | | | + + + [...] ? | | | RATE) | | [place] | | | | | ML/MIN/1.73 | [...] ? | | | RATE) | | [place] | | | | | ML/MIN/1.73 | [...] | | | | SER/PLAS | | [place] | | | | + + + + + + + | BILIRUBIN | 2020-06-23 | [facility] | < | mg/dl | (missing) | | TOTAL | 10:03 | Health | | | | | (MG/DL) IN | | System - | | | | | SER/PLAS | | [place] | | | | + + + + + + + | NRBC/100 | 2020-06-23 | [facility] | 0.0 | % | (missing) | | WBCS BY | 10:03 | Health | | | | | AUTOMATED | | System - | | | | | COUNT | | [place] | | | | + + + + + + + | NRBC/100 | 2020-06-23 | [facility] | 0.0 | % | (missing) | | WBCS BY | 10:03 | Health | | | | | AUTOMATED | | System - | | | | | COUNT | | [place] | | | | + + + + + + + | | 2020-06-23 | [facility] | 0.0 | k/mcl | (missing) | | NRBC(10*3/UL | 10:03 | Health | | | | | ) IN BLOOD | | System - | | | | | BY AUTOMATED | | [place] | | | | | COUNT | | | | | | + + + + + + + | | 2020-06-23 | [facility] | 0.0 | k/mcl | (missing) | | NRBC(10*3/UL | 10:03 | Health | | | | | ) IN BLOOD | | System - | | | | | BY AUTOMATED | | [place] | | | | | COUNT | | | | | | + + + + + + + | IMMATURE | 2020-06-23 | [facility] | 0.03 | k/mcl | (missing) | | GRANULOCYTE | 10:03 | Health | | | | | (ABS) | | System - | | | | | | | [place] | | | | + + + + + + + | IMMATURE | 2020-06-23 | [facility] | 0.03 | k/mcl | (missing) | | GRANULOCYTE | 10:03 | Health | | | | | (ABS) | | System - | | | | | | | [place] | | | | + + + + + + + | BASOPHILS | 2020-06-23 | [facility] | 0.1 | k/mcl | (missing) | | (10*3/UL) IN | 10:03 | Health | | | | | BLOOD BY | | System - | | | | | AUTOMATED | | [place] | | | | | COUNT | | | | | | + + + + + + + | BASOPHILS | 2020-06-23 | [facility] | 0.1 | k/mcl | (missing) | | (10*3/UL) IN | 10: | Health | | | | | BLOOD BY | | System - | | | | | AUTOMATED | | [place] | | | | | COUNT | | | | | | + + + + + + + | IMMATURE | 2020-06-23 | [facility] | 0.4 | % | (missing) | | GRANULOCYTE | 10: | Health | | | | | % (AUTO) | | System - | | | | | | | [place] | | | | + + + + + + + | IMMATURE | 2020-06-23 | [facility] | 0.4 | % | (missing) | | GRANULOCYTE | 10:03 | Health | | | | | % (AUTO) | | System - | | | | | | | [place] | | | | + + + + + + + | EOSINOPHILS | 2020-06-23 | [facility] | 0.4 | k/mcl | (missing) | | (10*3/UL) | 10:03 | Health | | | | | IN BLOOD BY | | System - | | | | | AUTOMATED | | [place] | | | | | COUNT | | | | | | + + + + + + + | EOSINOPHILS | 2020-06-23 | [facility] | 0.4 | k/mcl | (missing) | | (10*3/UL) | 10:03 | Health | | | | | IN BLOOD BY | | System - | | | | | AUTOMATED | | [place] | | | | | COUNT | | | | | | + + + + + + + | MONOCYTES | 2020-06-23 | [facility] | 0.7 | k/mcl | (missing) | | (10*3/UL) IN | 10: | Health | | | | | BLOOD BY | | System - | | | | | AUTOMATED | | [place] | | | | | COUNT | | | | | | + + + + + + + | MONOCYTES | 2020-06-23 | [facility] | 0.7 | k/mcl | (missing) | | (10*3/UL) IN | 10:03 | Health | | | | | BLOOD BY | | System - | | | | | AUTOMATED | | [place] | | | | | COUNT | | | | | | + + + + + + + | CREATININE | 2020-06-23 | [facility] | 0.7 | mg/dl | (missing) | | (MG/DL) IN | 10:03 | Health | | | | | SER/PLAS | | System - | | | | | | | [place] | | | | + + + + + + + | CREATININE | 2020-06-23 | [facility] | 0.7 | mg/dl | (missing) | | (MG/DL) IN | 10:03 | Health | | | | | SER/PLAS | | System - | | | | | | | [place] | | | | + + + + + + + | | 2020-06-23 | [facility] | 0.8 | % | (missing) | | BASOPHILS/10 | 10:03 | Health | | | | | 0 LEUKOCYTES | | System - | | | | | IN BLOOD BY | | [place] | | | | | AUTOMATED | [...] | | IN BLOOD BY | | [place] | | | | | AUTOMATED | [...] | | | RATIO) IN | | [place] | | | | | SER/PLAS | | | | | | + + + + + + + | | 2020-06-23 | [facility] | 1.76 | :1 | (missing) | | ALBUMIN/GLOB | 10:03 | Health | | | | | ULIN (A/G | | System - | | | | | RATIO) IN | | [place] | | | | | SER/PLAS | | | | | | + + + + + + + | BLOOD UREA | 2020-06-23 | [facility] | 10 | mg/dl | (missing) | | NITROGEN | 10:03 | Health | | | | | (BUN) | | System - | | | | | (MG/DL) IN | | [place] | | | | | SER/PLAS | | | | | | + + + + + + + | BLOOD UREA | 2020-06-23 | [facility] | 10 | mg/dl | (missing) | | NITROGEN | 10:03 | Health | | | | | (BUN) | | System - | | | | | (MG/DL) IN | | [place] | | | | | SER/PLAS | | | | | | + + + + + + + | GLUCOSE, | 2020-06-23 | [facility] | 106 | mg/dl | (missing) | | RANDOM | 10:03 | Health | | | | | (MG/DL) IN | | System - | | | | | SER/PLAS | | [place] | | | | + + + + + + + | GLUCOSE, | 2020-06-23 | [facility] | 106 | mg/dl | (missing) | | RANDOM | 10:03 | Health | | | | | (MG/DL) IN | | System - | | | | | SER/PLAS | | [place] | | | | + + + + + + + | CHLORIDE | 2020-06-23 | [facility] | 108 | mmol/l | (missing) | | (MMOL/L) IN | 10:03 | Health | | | | | SER/PLAS | | System - | | | | | | | [place] | | | | + + + + + + + | CHLORIDE | 2020-06-23 | [facility] | 108 | mmol/l | (missing) | | (MMOL/L) IN | 10:03 | Health | | | | | SER/PLAS | | System - | | | | | | | [place] | | | | + + + + + + + | ERYTHROCYTE | 2020-06-23 | [facility] | 12.0 | % | (missing) | | | 10:03 | Health | | | | | DISTRIBUTION | | System - | | | | | WIDTH | | [place] | | | | | (RATIO) BY [...] | | | | WIDTH | | [facility] | | | | | (RATIO) BY [...] | | | (U/L) IN | | [place] | | | | | SER/PLAS | | | | | | + + + + + + + | ALANINE | 2020-06-23 | [facility] | 14 | u/l | (missing) | | AMINOTRANSFE | 10:03 | Health | | | | | RASE (SGPT) | | System - | | | | | (U/L) IN | | [place] | | | | | SER/PLAS | | | | | | + + + + + + + | HEMOGLOBIN | 2020-06-23 | [facility] | 14.4 | g/dl | (missing) | | (G/DL) IN | 10:03 | Health | | | | | BLOOD | | System - | | | | | | | [place] | | | | + + + + + + + | HEMOGLOBIN | 2020-06-23 | [facility] | 14.4 | g/dl | (missing) | | (G/DL) IN | 10:03 | Health | | | | | BLOOD | | System - | | | | | | | [place] | | | | + + + + + + + | SODIUM | 2020-06-23 | [facility] | 141 | mmol/l | (missing) | | (MMOL/L) IN | 10: | Health | | | | | SER/PLAS | | System - | | | | | | | [place] | | | | + + + + + + + | SODIUM | 2020-06-23 | [facility] | 141 | mmol/l | (missing) | | (MMOL/L) IN | 10:03 | Health | | | | | SER/PLAS | | System - | | | | | | | [place] | | | | + + + + + + + | ASPARTATE | 2020-06-23 | [facility] | 16 | u/l | (missing) | | AMINOTRANSFE | 10:03 | Health | | | | | RASE (SGOT) | | System - | | | | | (U/L) IN | | [place] | | | | | SER/PLAS | | | | | | + + + + + + + | ASPARTATE | 2020-06-23 | [facility] | 16 | u/l | (missing) | | AMINOTRANSFE | 10:03 | Health | | | | | RASE (SGOT) | | System - | | | | | (U/L) IN | | [place] | | | | | SER/PLAS | | | | | | + + + + + + + | GLOBULIN | 2020-06-23 | [facility] | 2.1 | g/dl | (missing) | | (G/DL) IN | 10:03 | Health | | | | | SER/PLAS | | System - | | | | | | | [place] | | | | + + + + + + + | GLOBULIN | 2020-06-23 | [facility] | 2.1 | g/dl | (missing) | | (G/DL) IN | 10:03 | Health | | | | | SER/PLAS | | System - | | | | | | | [place] | | | | + + + + + + + | CARBON | 2020-06-23 | [facility] | 24 | mmol/l | (missing) | | DIOXIDE | 10:03 | Health | | | | | (CO2), TOTAL | | System - | | | | | (MMOL/L) IN | | [place] | | | | | SER/PLAS | | | | | | + + + + + + + | CARBON | 2020-06-23 | [facility] | 24 | mmol/l | (missing) | | DIOXIDE | 10:03 | Health | | | | | (CO2), TOTAL | | System - | | | | | (MMOL/L) IN | | [place] | | | | | SER/PLAS | | | | | | + + + + + + + | LYMPHOCYTES | 2020-06-23 | [facility] | 3.3 | k/mcl | (missing) | | (10*3/UL) | 10:03 | Health | | | | | IN BLOOD BY | | System - | | | | | AUTOMATED | | [place] | | | | | COUNT | | | | | | + + + + + + + | NEUTROPHILS | 2020-06-23 | [facility] | 3.3 | k/mcl | (missing) | | (10*3/UL) | 10:03 | Health | | | | | IN BLOOD BY | | System - | | | | | AUTOMATED | | [place] | | | | | COUNT | | | | | | + + + + + + + | LYMPHOCYTES | 2020-06-23 | [facility] | 3.3 | k/mcl | (missing) | | (10*3/UL) | 10:03 | Health | | | | | IN BLOOD BY | | System - | | | | | AUTOMATED | | [place] | | | | | COUNT | | | | | | + + + + + + + | NEUTROPHILS | 2020-06-23 | [facility] | 3.3 | k/mcl | (missing) | | (10*3/UL) | 10:03 | Health | | | | | IN BLOOD BY | | System - | | | | | AUTOMATED | | [place] | | | | | COUNT | | | | | | + + + + + + + | POTASSIUM | 2020-06-23 | [facility] | 3.6 | mmol/l | (missing) | | (MMOL/L) IN | 10:03 | Health | | | | | SER/PLAS | | System - | | | | | | | [place] | | | | + + + + + + + | POTASSIUM | 2020-06-23 | [facility] | 3.6 | mmol/l | (missing) | | (MMOL/L) IN | 10:03 | Health | | | | | SER/PLAS | | System - | | | | | | | [place] | | | | + + + + + + + | ALBUMIN | 2020-06-23 | [facility] | 3.7 | g/dl | (missing) | | (G/DL) IN | 10:03 | Health | | | | | SER/PLAS | | System - | | | | | | | [place] | | | | + + + + + + + | ALBUMIN | 2020-06-23 | [facility] | 3.7 | g/dl | (missing) | | (G/DL) IN | 10:03 | Health | | | | | SER/PLAS | | System - | | | | | | | [place] | | | | + + + + + + + | ERYTHROCYTE | 2020-06-23 | [facility] | 31.0 | pg | (missing) | | MEAN | 10:03 | Health | | | | | CORPUSCULAR | | System - | | | | | HEMOGLOBIN | | [place] | | | | | (PG) BY [...] | | | | HEMOGLOBIN | | [place] | | | | | (PG) BY [...] | | | | HEMOGLOBIN | | [place] | | | | | CONCENTRATIO | [...] | | | | HEMOGLOBIN | | [place] | | | | | CONCENTRATIO | [...] | | | | AUTOMATED | | [place] | | | | | COUNT | | | | | | + + + + + + + | PLATELETS | 2020-06-23 | [facility] | 352 | k/mcl | (missing) | | (10*3/UL) IN | 10:03 | Health | | | | | BLOOD | | System - | | | | | AUTOMATED | | [place] | | | | | COUNT | | | | | | + + + + + + + | | 2020-06-23 | [facility] | 4.64 | m/mcl | (missing) | | ERYTHROCYTES | 10:03 | Health | | | | | (10*6/UL) | | System - | | | | | IN BLOOD BY | | [place] | | | | | AUTOMATED | [...] | | IN BLOOD BY | | [place] | | | | | AUTOMATED | [...] | | | | AUTOMATED | | [place] | | | | | COUNT | | | | | | + + + + + + + | HEMATOCRIT | 2020-06-23 | [facility] | 42.2 | % | (missing) | | (%) IN BLOOD | 10:03 | Health | | | | | BY | | System - | | | | | AUTOMATED | | [place] | | | | | COUNT | | | | | | + + + + + + + | | 2020-06-23 | [facility] | 42.4 | % | (missing) | | NEUTROPHILS/ | 10:03 | Health | | | | | 100 | | System - | | | | | LEUKOCYTES | | [place] | | | | | IN BLOOD [...] | | | | LEUKOCYTES | | [place] | | | | | IN BLOOD [...] | | | | LEUKOCYTES | | [place] | | | | | IN BLOOD [...] | | | | LEUKOCYTES | | [place] | | | | | IN BLOOD [...] | | | | LEUKOCYTES | | [place] | | | | | IN BLOOD [...] | | | | LEUKOCYTES | | [place] | | | | | IN BLOOD [...] | | | | | | | [place] | | | | + + + + + + + | PROTEIN | 2020-06-23 | [facility] | 5.8 | g/dl | (missing) | | (G/DL) IN | 10:03 | Health | | | | | SER/PLAS | | System - | | | | | | | [place] | | | | + + + + + + + | ALKALINE | 2020-06-23 | [facility] | 69 | u/l | (missing) | | PHOSPHATASE | 10:03 | Health | | | | | (U/L) IN | | System - | | | | | SER/PLAS | | [place] | | | | + + + + + + + | ALKALINE | 2020-06-23 | [facility] | 69 | u/l | (missing) | | PHOSPHATASE | 10:03 | Health | | | | | (U/L) IN | | System - | | | | | SER/PLAS | | [place] | | | | + + + + + + + | | 2020-06-23 | [facility] | 7.8 | k/mcl | (missing) | | LEUKOCYTES(1 | 10:03 | Health | | | | | 0*3/UL) IN | | System - | | | | | BLOOD BY | | [place] | | | | | AUTOMATED | | | | | | | COUNT | | | | | | + + + + + + + | | 2020-06-23 | [facility] | 7.8 | k/mcl | (missing) | | LEUKOCYTES(1 | 10: | Health | | | | | 0*3/UL) IN | | System - | | | | | BLOOD BY | | [place] | | | | | AUTOMATED | [...] | | | | | | | [place] | | | | + + + + + + + | CALCIUM | 2020-06-23 | [facility] | 8.5 | mg/dl | (missing) | | (MG/DL) IN | : | Health | | | | | SER/PLAS | | System - | | | | | | | [place] | | | | + + + + + + + | | 2020-06-23 | [facility] | 8.6 | % | (missing) | | MONOCYTES/10 | 10:03 | Health | | | | | 0 LEUKOCYTES | | System - | | | | | IN BLOOD BY | | [place] | | | | | AUTOMATED | [...] | | IN BLOOD BY | | [place] | | | | | AUTOMATED | [...] | | | | | | | [place] | | | | + + + + + + + | ANION GAP | 2020-06-23 | [facility] | 9.0 | mmol/l | (missing) | | IN SER/PLAS | 10:03 | Health | | | | | | | System - | | | | | | | [place] | | | | + + + + + + + | PLATELET | 2020-06-23 | [facility] | 9.3 | fl | (missing) | | MEAN VOLUME | 10:03 | Health | | | | | (FL) IN | | System - | | | | | BLOOD BY | | [place] | | | | | AUTOMATED | [...] | | | BLOOD BY | | [place] | | | | | AUTOMATED | [...] | | | VOLUME (FL) | | [place] | | | | | BY AUTOMATED [...] | | | VOLUME (FL) | | [place] | | | | | BY AUTOMATED [...] | | | | SER/PLAS | | [place] | | | | + + + + + + + | [facility] QUAL | 2020-06-23 | [facility] | Negative | (missing) | (missing) | | (CHORIOGONAD | 10:03 | Health | | | | | OTROPIN) IN | | System - | | | | | SER/PLAS | | [place] | | | | + + + [...] ? | | | RATE) | | [place] | | | | | ML/MIN/1.73 | [...] ? | | | RATE) | | [place] | | | | | ML/MIN/1.73 | [...] | | | | | | | [place] | | | | + + + + + + + | ALCOHOL | 2020-06-24 | [facility] | < | g/dl | (missing) | | (G/DL) IN | 19:59 | Health | | | | | SER/PLAS | | System - | | | | | | | [place] | | | | + + + + + + + | | 2020-06-24 | [facility] | < | mcg/ml | (missing) | | ACETAMINOPHE | 19:59 | Health | | | | | N (UG/ML) IN | | System - | | | | | SER/PLAS | | [place] | | | | + + + + + + + | | 2020-06-24 | [facility] | < | mcg/ml | (missing) | | ACETAMINOPHE | 19:59 | Health | | | | | N (UG/ML) IN | | System - | | | | | SER/PLAS | | [place] | | | | + + + + + + + | SALICYLATE | 2020-06-24 | [facility] | < | mg/dl | (missing) | | (MG/DL) IN | 19:59 | Health | | | | | SER/PLAS | | System - | | | | | | | [place] | | | | + + + + + + + | BILIRUBIN | 2020-06-24 | [facility] | < | mg/dl | (missing) | | TOTAL | 19:59 | Health | | | | | (MG/DL) IN | | System - | | | | | SER/PLAS | | [place] | | | | + + + + + + + | BILIRUBIN | 2020-06-24 | [facility] | < | mg/dl | (missing) | | TOTAL | 19:59 | Health | | | | | (MG/DL) IN | | System - | | | | | SER/PLAS | | [place] | | | | + + + + + + + | SALICYLATE | 2020-06-24 | [facility] | < | mg/dl | (missing) | | (MG/DL) IN | 19:59 | Health | | | | | SER/PLAS | | System - | | | | | | | [place] | | | | + + + + + + + | NRBC/100 | 2020-06-24 | [facility] | 0.0 | % | (missing) | | WBCS BY | 19:59 | Health | | | | | AUTOMATED | | System - | | | | | COUNT | | [place] | | | | + + + + + + + | NRBC/100 | 2020-06-24 | [facility] | 0.0 | % | (missing) | | WBCS BY | 19:59 | Health | | | | | AUTOMATED | | System - | | | | | COUNT | | [place] | | | | + + + + + + + | | 2020-06-24 | [facility] | 0.0 | k/mcl | (missing) | | NRBC(10*3/UL | 19:59 | Health | | | | | ) IN BLOOD | | System - | | | | | BY AUTOMATED | | [place] | | | | | COUNT | | | | | | + + + + + + + | | 2020-06-24 | [facility] | 0.0 | k/mcl | (missing) | | NRBC(10*3/UL | 19:59 | Health | | | | | ) IN BLOOD | | System - | | | | | BY AUTOMATED | | [place] | | | | | COUNT | | | | | | + + + + + + + | IMMATURE | 2020-06-24 | [facility] | 0.05 | k/mcl | (missing) | | GRANULOCYTE | 19:59 | Health | | | | | (ABS) | | System - | | | | | | | [place] | | | | + + + + + + + | IMMATURE | 2020-06-24 | [facility] | 0.05 | k/mcl | (missing) | | GRANULOCYTE | 19:59 | Health | | | | | (ABS) | | System - | | | | | | | [place] | | | | + + + + + + + | BASOPHILS | 2020-06-24 | [facility] | 0.1 | k/mcl | (missing) | | (10*3/UL) IN | 19:59 | Health | | | | | BLOOD BY | | System - | | | | | AUTOMATED | | [place] | | | | | COUNT | | | | | | + + + + + + + | BASOPHILS | 2020-06-24 | [facility] | 0.1 | k/mcl | (missing) | | (10*3/UL) IN | 19:59 | Health | | | | | BLOOD BY | | System - | | | | | AUTOMATED | | [place] | | | | | COUNT | | | | | | + + + + + + + | EOSINOPHILS | 2020-06-24 | [facility] | 0.4 | k/mcl | (missing) | | (10*3/UL) | 19:59 | Health | | | | | IN BLOOD BY | | System - | | | | | AUTOMATED | | [place] | | | | | COUNT | | | | | | + + + + + + + | EOSINOPHILS | 2020-06-24 | [facility] | 0.4 | k/mcl | (missing) | | (10*3/UL) | 19:59 | Health | | | | | IN BLOOD BY | | System - | | | | | AUTOMATED | | [place] | | | | | COUNT | | | | | | + + + + + + + | IMMATURE | 2020-06-24 | [facility] | 0.5 | % | (missing) | | GRANULOCYTE | 19:59 | Health | | | | | % (AUTO) | | System - | | | | | | | [place] | | | | + + + + + + + | IMMATURE | 2020-06-24 | [facility] | 0.5 | % | (missing) | | GRANULOCYTE | 19:59 | Health | | | | | % (AUTO) | | System - | | | | | | | [place] | | | | + + + + + + + | | 2020-06-24 | [facility] | 0.6 | % | (missing) | | BASOPHILS/10 | 19:59 | Health | | | | | 0 LEUKOCYTES | | System - | | | | | IN BLOOD BY | | [place] | | | | | AUTOMATED | [...] | | IN BLOOD BY | | [place] | | | | | AUTOMATED | [...] | | | | AUTOMATED | | [place] | | | | | COUNT | | | | | | + + + + + + + | MONOCYTES | 2020-06-24 | [facility] | 0.6 | k/mcl | (missing) | | (10*3/UL) IN | 19:59 | Health | | | | | BLOOD BY | | System - | | | | | AUTOMATED | | [place] | | | | | COUNT | | | | | | + + + + + + + | CREATININE | 2020-06-24 | [facility] | 0.6 | mg/dl | (missing) | | (MG/DL) IN | 19:59 | Health | | | | | SER/PLAS | | System - | | | | | | | [place] | | | | + + + + + + + | CREATININE | 2020-06-24 | [facility] | 0.6 | mg/dl | (missing) | | (MG/DL) IN | 19:59 | Health | | | | | SER/PLAS | | System - | | | | | | | [place] | | | | + + + + + + + | TSH | 2020-06-24 | [facility] | 0.85 | mciu/ml | (missing) | | (THYROTROPIN | 19:59 | Health | | | | | ) (MIU/L) IN | | System - | | | | | SER/PLAS | | [place] | | | | + + + + + + + | TSH | 2020-06-24 | [facility] | 0.85 | mciu/ml | (missing) | | (THYROTROPIN | 19:59 | Health | | | | | ) (MIU/L) IN | | System - | | | | | SER/PLAS | | [place] | | | | + + + + + + + | | 2020-06-24 | [facility] | 1.67 | :1 | (missing) | | ALBUMIN/GLOB | 19:59 | Health | | | | | ULIN (A/G | | System - | | | | | RATIO) IN | | [place] | | | | | SER/PLAS | | | | | | + + + + + + + | | 2020-06-24 | [facility] | 1.67 | :1 | (missing) | | ALBUMIN/GLOB | 19:59 | Health | | | | | ULIN (A/G | | System - | | | | | RATIO) IN | | [place] | | | | | SER/PLAS | | | | | | + + + + + + + | | 2020-06-24 | [facility] | 10.8 | k/mcl | (missing) | | LEUKOCYTES( | 19:59 | Health | | | | | 0*3/UL) IN | | System - | | | | | BLOOD BY | | [place] | | | | | AUTOMATED | [...] | | | BLOOD BY | | [place] | | | | | AUTOMATED | [...] | | | | | | | [place] | | | | + + + + + + + | CHLORIDE | 2020-06-24 | [facility] | 105 | mmol/l | (missing) | | (MMOL/L) IN | 19:59 | Health | | | | | SER/PLAS | | System - | | | | | | | [place] | | | | + + + + + + + | ERYTHROCYTE | 2020-06-24 | [facility] | 11.9 | % | (missing) | | | 19:59 | Health | | | | | DISTRIBUTION | | System - | | | | | WIDTH | | [place] | | | | | (RATIO) BY [...] | | | | WIDTH | | [place] | | | | | (RATIO) BY [...] | | | | | | | [place] | | | | + + + + + + + | HEMOGLOBIN | 2020-06-24 | [facility] | 13.5 | g/dl | (missing) | | (G/DL) IN | 19:59 | Health | | | | | BLOOD | | System - | | | | | | | [place] | | | | + + + + + + + | SODIUM | 2020-06-24 | [facility] | 139 | mmol/l | (missing) | | (MMOL/L) IN | 19:59 | Health | | | | | SER/PLAS | | System - | | | | | | | [place] | | | | + + + + + + + | SODIUM | 2020-06-24 | [facility] | 139 | mmol/l | (missing) | | (MMOL/L) IN | 19:59 | Health | | | | | SER/PLAS | | System - | | | | | | | [place] | | | | + + + + + + + | ASPARTATE | 2020-06-24 | [facility] | 14 | u/l | (missing) | | AMINOTRANSFE | 19:59 | Health | | | | | RASE (SGOT) | | System - | | | | | (U/L) IN | | [place] | | | | | SER/PLAS | | | | | | + + + + + + + | ASPARTATE | 2020-06-24 | [facility] | 14 | u/l | (missing) | | AMINOTRANSFE | 19:59 | Health | | | | | RASE (SGOT) | | System - | | | | | (U/L) IN | | [place] | | | | | SER/PLAS | | | | | | + + + + + + + | ALANINE | 2020-06-24 | [facility] | 15 | u/l | (missing) | | AMINOTRANSFE | 19:59 | Health | | | | | RASE (SGPT) | | System - | | | | | (U/L) IN | | [place] | | | | | SER/PLAS | | | | | | + + + + + + + | ALANINE | 2020-06-24 | [facility] | 15 | u/l | (missing) | | AMINOTRANSFE | 19:59 | Health | | | | | RASE (SGPT) | | System - | | | | | (U/L) IN | | [place] | | | | | SER/PLAS | | | | | | + + + + + + + | GLOBULIN | 2020-06-24 | [facility] | 2.1 | g/dl | (missing) | | (G/DL) IN | 19:59 | Health | | | | | SER/PLAS | | System - | | | | | | | [place] | | | | + + + + + + + | GLOBULIN | 2020-06-24 | [facility] | 2.1 | g/dl | (missing) | | (G/DL) IN | 19:59 | Health | | | | | SER/PLAS | | System - | | | | | | | [place] | | | | + + + + + + + | CARBON | 2020-06-24 | [facility] | 26 | mmol/l | (missing) | | DIOXIDE | 19:59 | Health | | | | | (CO2), TOTAL | | System - | | | | | (MMOL/L) IN | | [place] | | | | | SER/PLAS | | | | | | + + + + + + + | CARBON | 2020-06-24 | [facility] | 26 | mmol/l | (missing) | | DIOXIDE | 19:59 | Health | | | | | (CO2), TOTAL | | System - | | | | | (MMOL/L) IN | | [place] | | | | | SER/PLAS | | | | | | + + + + + + + | PLATELETS | 2020-06-24 | [facility] | 292 | k/mcl | (missing) | | (10*3/UL) IN | 19:59 | Health | | | | | BLOOD | | System - | | | | | AUTOMATED | | [place] | | | | | COUNT | | | | | | + + + + + + + | PLATELETS | 2020-06-24 | [facility] | 292 | k/mcl | (missing) | | (10*3/UL) IN | 19:59 | Health | | | | | BLOOD | | System - | | | | | AUTOMATED | | [place] | | | | | COUNT | | | | | | + + + + + + + | POTASSIUM | 2020-06-24 | [facility] | 3.4 | mmol/l | (missing) | | (MMOL/L) IN | 19:59 | Health | | | | | SER/PLAS | | System - | | | | | | | [place] | | | | + + + + + + + | POTASSIUM | 2020-06-24 | [facility] | 3.4 | mmol/l | (missing) | | (MMOL/L) IN | 19:59 | Health | | | | | SER/PLAS | | System - | | | | | | | [place] | | | | + + + + + + + | ALBUMIN | 2020-06-24 | [facility] | 3.5 | g/dl | (missing) | | (G/DL) IN | 19:59 | Health | | | | | SER/PLAS | | System - | | | | | | | [place] | | | | + + + + + + + | ALBUMIN | 2020-06-24 | [facility] | 3.5 | g/dl | (missing) | | (G/DL) IN | 19:59 | Health | | | | | SER/PLAS | | System - | | | | | | | [place] | | | | + + + + + + + | ERYTHROCYTE | 2020-06-24 | [facility] | 30.5 | pg | (missing) | | MEAN | 19:59 | Health | | | | | CORPUSCULAR | | System - | | | | | HEMOGLOBIN | | [place] | | | | | (PG) BY [...] | | | | HEMOGLOBIN | | [place] | | | | | (PG) BY [...] | | | | HEMOGLOBIN | | [place] | | | | | CONCENTRATIO | [...] | | | | HEMOGLOBIN | | [place] | | | | | CONCENTRATIO | [...] | | | | LEUKOCYTES | | [place] | | | | | IN BLOOD [...] | | | | LEUKOCYTES | | [place] | | | | | IN BLOOD [...] | | | | LEUKOCYTES | | [place] | | | | | IN BLOOD [...] | | | | LEUKOCYTES | | [place] | | | | | IN BLOOD [...] | | | | AUTOMATED | | [place] | | | | | COUNT | | | | | | + + + + + + + | LYMPHOCYTES | 2020-06-24 | [facility] | 4.1 | k/mcl | (missing) | | (10*3/UL) | 19:59 | Health | | | | | IN BLOOD BY | | System - | | | | | AUTOMATED | | [place] | | | | | COUNT | | | | | | + + + + + + + | | 2020-06-24 | [facility] | 4.43 | m/mcl | (missing) | | ERYTHROCYTES | 19:59 | Health | | | | | (10*6/UL) | | System - | | | | | IN BLOOD BY | | [place] | | | | | AUTOMATED | [...] | | IN BLOOD BY | | [place] | | | | | AUTOMATED | [...] | | | | AUTOMATED | | [place] | | | | | COUNT | | | | | | + + + + + + + | HEMATOCRIT | 2020-06-24 | [facility] | 40.7 | % | (missing) | | (%) IN BLOOD | 19:59 | Health | | | | | BY | | System - | | | | | AUTOMATED | | [place] | | | | | COUNT | | | | | | + + + + + + + | NEUTROPHILS | 2020-06-24 | [facility] | 5.5 | k/mcl | (missing) | | (10*3/UL) | 19:59 | Health | | | | | IN BLOOD BY | | System - | | | | | AUTOMATED | | [place] | | | | | COUNT | | | | | | + + + + + + + | NEUTROPHILS | 2020-06-24 | [facility] | 5.5 | k/mcl | (missing) | | (10*3/UL) | 19:59 | Health | | | | | IN BLOOD BY | | System - | | | | | AUTOMATED | | [place] | | | | | COUNT | | | | | | + + + + + + + | PROTEIN | 2020-06-24 | [facility] | 5.6 | g/dl | (missing) | | (G/DL) IN | 19:59 | Health | | | | | SER/PLAS | | System - | | | | | | | [place] | | | | + + + + + + + | PROTEIN | 2020-06-24 | [facility] | 5.6 | g/dl | (missing) | | (G/DL) IN | 19:59 | Health | | | | | SER/PLAS | | System - | | | | | | | [place] | | | | + + + + + + + | | 2020-06-24 | [facility] | 5.7 | % | (missing) | | MONOCYTES/10 | 19:59 | Health | | | | | 0 LEUKOCYTES | | System - | | | | | IN BLOOD BY | | [place] | | | | | AUTOMATED | [...] | | IN BLOOD BY | | [place] | | | | | AUTOMATED | [...] | | | | LEUKOCYTES | | [place] | | | | | IN BLOOD [...] | | | | LEUKOCYTES | | [place] | | | | | IN BLOOD [...] | | | | SER/PLAS | | [place] | | | | + + + + + + + | ALKALINE | 2020-06-24 | [facility] | 61 | u/l | (missing) | | PHOSPHATASE | 19:59 | Health | | | | | (U/L) IN | | System - | | | | | SER/PLAS | | [place] | | | | + + + + + + + | BLOOD UREA | 2020-06-24 | [facility] | 8 | mg/dl | (missing) | | NITROGEN | 19:59 | Health | | | | | (BUN) | | System - | | | | | (MG/DL) IN | | [place] | | | | | SER/PLAS | | | | | | + + + + + + + | BLOOD UREA | 2020-06-24 | [facility] | 8 | mg/dl | (missing) | | NITROGEN | 19:59 | Health | | | | | (BUN) | | System - | | | | | (MG/DL) IN | | [place] | | | | | SER/PLAS | | | | | | + + + + + + + | ANION GAP | 2020-06-24 | [facility] | 8.0 | mmol/l | (missing) | | IN SER/PLAS | 19:59 | Health | | | | | | | System - | | | | | | | [place] | | | | + + + + + + + | ANION GAP | 2020-06-24 | [facility] | 8.0 | mmol/l | (missing) | | IN SER/PLAS | 19:59 | Health | | | | | | | System - | | | | | | | [place] | | | | + + + + + + + | CALCIUM | 2020-06-24 | [facility] | 8.6 | mg/dl | (missing) | | (MG/DL) IN | 19:59 | Health | | | | | SER/PLAS | | System - | | | | | | | [place] | | | | + + + + + + + | CALCIUM | 2020-06-24 | [facility] | 8.6 | mg/dl | (missing) | | (MG/DL) IN | 19:59 | Health | | | | | SER/PLAS | | System - | | | | | | | [place] | | | | + + + + + + + | PLATELET | 2020-06-24 | [facility] | 9.3 | fl | (missing) | | MEAN VOLUME | 19:59 | Health | | | | | (FL) IN | | System - | | | | | BLOOD BY | | [place] | | | | | AUTOMATED | [...] | | | BLOOD BY | | [place] | | | | | AUTOMATED | [...] | | | VOLUME (FL) | | [place] | | | | | BY AUTOMATED [...] | | | VOLUME (FL) | | [place] | | | | | BY AUTOMATED [...] | | | | SER/PLAS | | [place] | | | | + + + + + + + | GLUCOSE, | 2020-06-24 | [facility] | 92 | mg/dl | (missing) | | RANDOM | 19:59 | Health | | | | | (MG/DL) IN | | System - | | | | | SER/PLAS | | [place] | | | | + + + + + + + | | 2020-06-24 | [facility] | Negative | (missing) | (missing) | | BARBITURATES | 19:59 | Health | | | | | PRESENCE IN | | System - | | | | | URINE BY | | [place] | | | | | SCREEN | [...] | | | | SCREEN | | [place] | | | | | METHOD | | | | | | + + + + + + + | INFLUENZA A | 2020-06-24 | [facility] | Negative | (missing) | (missing) | | (CEPHEID) | 19:59 | Health | | | | | | | System - | | | | | | | [place] | | | | + + + + + + + | INFLUENZA B | 2020-06-24 | [facility] | Negative | (missing) | (missing) | | (CEPHEID) | 19:59 | Health | | | | | | | System - | | | | | | | [place] | | | | + + + + + + + | METHADONE | 2020-06-24 | [facility] | Negative | (missing) | (missing) | | (PRESENCE) | 19:59 | Health | | | | | IN URINE BY | | System - | | | | | SCREEN | | [place] | | | | | METHOD | | | | | | + + + + + + + | OPIATES | 2020-06-24 | [facility] | Negative | (missing) | (missing) | | (PRESENCE) | 19:59 | Health | | | | | IN URINE BY | | System - | | | | | SCREEN | | [place] | | | | | METHOD | | | | | | + + + + + + + | OXYCODONE | 2020-06-24 | [facility] | Negative | (missing) | (missing) | | (PRESENCE) | 19:59 | Health | | | | | IN URINE BY | | System - | | | | | SCREEN | | [place] | | | | | METHOD | | | | | | + + + + + + + | | 2020-06-24 | [facility] | Negative | (missing) | (missing) | | PHENCYCLIDIN | 19:59 | Health | | | | | E (PRESENCE) | | System - | | | | | IN URINE BY | | [place] | | | | | SCREEN | | | | | | | METHOD | | | | | | + + + + + + + | RSV | 2020-06-24 | [facility] | Negative | (missing) | (missing) | | (CEPHEID) | 19:59 | Health | | | | | | | System - | | | | | | | [place] | | | | + + + + + + + | SARS-COV-2 | 2020-06-24 | [facility] | Negative | (missing) | (missing) | | (COVID19) | 19:59 | Health | | | | | CEPHEID | | System - | | | | | MOLECULAR | | [place] | | | | + + + + + + + | THC | 2020-06-24 | [facility] | Negative | (missing) | (missing) | | (CANNABINOID | 19:59 | Health | | | | | ) IN URINE | | System - | | | | | BY SCREEN | | [place] | | | | | METHOD | | | | | | + + + + + + + | TRICYCLIC | 2020-06-24 | [facility] | Negative | (missing) | (missing) | | ANTIDEPRESSA | 19:59 | Health | | | | | NTS | | System - | | | | | (PRESENCE) | | [place] | | | | | IN URINE | | | | | | + + + + + + + | | 2020-06-24 | [facility] | Negative | (missing) | (missing) | | PHENCYCLIDIN | 19:59 | Health | | | | | E (PRESENCE) | | System - | | | | | IN URINE BY | | [place] | | | | | SCREEN | [...] | | | BY SCREEN | | [place] | | | | | METHOD | | | | | | + + + + + + + | OPIATES | 2020-06-24 | [facility] | Negative | (missing) | (missing) | | (PRESENCE) | 19:59 | Health | | | | | IN URINE BY | | System - | | | | | SCREEN | | [place] | | | | | METHOD | | | | | | + + + + + + + | TRICYCLIC | 2020-06-24 | [facility] | Negative | (missing) | (missing) | | ANTIDEPRESSA | 19:59 | Health | | | | | NTS | | System - | | | | | (PRESENCE) | | [place] | | | | | IN URINE | | | | | | + + + + + + + | OXYCODONE | 2020-06-24 | [facility] | Negative | (missing) | (missing) | | (PRESENCE) | 19:59 | Health | | | | | IN URINE BY | | System - | | | | | SCREEN | | [place] | | | | | METHOD | | | | | | + + + + + + + | BHCG QUAL | 2020-06-24 | [facility] | Negative | (missing) | (missing) | | (CHORIOGONAD | 19:59 | Health | | | | | OTROPIN) IN | | System - | | | | | SER/PLAS | | [place] | | | | + + + + + + + | INFLUENZA A | 2020-06-24 | [facility] | Negative | (missing) | (missing) | | (CEPHEID) | 19:59 | Health | | | | | | | System - | | | | | | | [place] | | | | + + + + + + + | COCAINE | 2020-06-24 | [facility] | Negative | (missing) | (missing) | | (PRESENCE) | 19:59 | Health | | | | | IN URINE BY | | System - | | | | | SCREEN | | [place] | | | | | METHOD | | | | | | + + + + + + + | | 2020-06-24 | [facility] | Negative | (missing) | (missing) | | BARBITURATES | 19:59 | Health | | | | | PRESENCE IN | | System - | | | | | URINE BY | | [place] | | | | | SCREEN | [...] | | | | SCREEN | | [place] | | | | | METHOD | | | | | | + + + + + + + | SARS-COV-2 | 2020-06-24 | [facility] | Negative | (missing) | (missing) | | (COVID19) | 19:59 | Health | | | | | CEPHEID | | System - | | | | | MOLECULAR | | [place] | | | | + + + + + + + | BHCG QUAL | 2020-06-24 | [facility] | Negative | (missing) | (missing) | | (CHORIOGONAD | 19:59 | Health | | | | | OTROPIN) IN | | System - | | | | | SER/PLAS | | [place] | | | | + + + + + + + | | 2020-06-24 | [facility] | Presumptive | (missing) | (missing) | | BENZODIAZEPI | 19:59 | Health | Positive | | | | SURYA | | System - | | | | | (PRESENCE) | | [place] | | | | | IN URINE [...] | | | | (PRESENCE) | | [place] | | | | | IN URINE [...] | | | | SCREEN | | [place] | | | | | METHOD | | | | | | + + + + + + + | | 2020-06-24 | [facility] | Presumptive | (missing) | (missing) | | METHAMPHETAM | 19:59 | Health | Positive | | | | INE | | System - | | | | | (PRESENCE) | | [place] | | | | | IN URINE [...] | | | | (PRESENCE) | | [place] | | | | | IN URINE [...] | | | | SCREEN | | [place] | | | | | METHOD | [...] | | | | | | | [place] | | | | + + + + + + + | EGFR | 2020-07-11 | [facility] | > | | (missing) | | (GLOMERULAR | 08:44 | Health | | ml/min/1.73m | | | FILTRATION | | System - | | ? | | | RATE) | | [place] | | | | | ML/MIN/1.73 | [...] ? | | | RATE) | | [place] | | | | | ML/MIN/1.73 | [...] | | | | COUNT | | [place] | | | | + + + + + + + | NRBC/100 | 2020-07-11 | [facility] | 0.0 | % | (missing) | | WBCS BY | 08:44 | Health | | | | | AUTOMATED | | System - | | | | | COUNT | | [place] | | | | + + + + + + + | | 2020-07-11 | [facility] | 0.0 | k/mcl | (missing) | | NRBC(10*3/UL | 08:44 | Health | | | | | ) IN BLOOD | | System - | | | | | BY AUTOMATED | | [place] | | | | | COUNT | | | | | | + + + + + + + | | 2020-07-11 | [facility] | 0.0 | k/mcl | (missing) | | NRBC(10*3/UL | 08:44 | Health | | | | | ) IN BLOOD | | System - | | | | | BY AUTOMATED | | [place] | | | | | COUNT | | | | | | + + + + + + + | IMMATURE | 2020-07-11 | [facility] | 0.08 | k/mcl | (missing) | | GRANULOCYTE | 08:44 | Health | | | | | (ABS) | | System - | | | | | | | [place] | | | | + + + + + + + | IMMATURE | 2020-07-11 | [facility] | 0.08 | k/mcl | (missing) | | GRANULOCYTE | 08:44 | Health | | | | | (ABS) | | System - | | | | | | | [place] | | | | + + + + + + + | BASOPHILS | 2020-07-11 | [facility] | 0.1 | k/mcl | (missing) | | (10*3/UL) IN | 08:44 | Health | | | | | BLOOD BY | | System - | | | | | AUTOMATED | | [place] | | | | | COUNT | | | | | | + + + + + + + | BASOPHILS | 2020-07-11 | [facility] | 0.1 | k/mcl | (missing) | | (10*3/UL) IN | 08:44 | Health | | | | | BLOOD BY | | System - | | | | | AUTOMATED | | [place] | | | | | COUNT | | | | | | + + + + + + + | EOSINOPHILS | 2020-07-11 | [facility] | 0.2 | k/mcl | (missing) | | (10*3/UL) | 08:44 | Health | | | | | IN BLOOD BY | | System - | | | | | AUTOMATED | | [place] | | | | | COUNT | | | | | | + + + + + + + | EOSINOPHILS | 2020-07-11 | [facility] | 0.2 | k/mcl | (missing) | | (10*3/UL) | 08:44 | Health | | | | | IN BLOOD BY | | System - | | | | | AUTOMATED | | [place] | | | | | COUNT | | | | | | + + + + + + + | BILIRUBIN | 2020-07-11 | [facility] | 0.2 | mg/dl | (missing) | | TOTAL | 08:44 | Health | | | | | (MG/DL) IN | | System - | | | | | SER/PLAS | | [place] | | | | + + + + + + + | BILIRUBIN | 2020-07-11 | [facility] | 0.2 | mg/dl | (missing) | | TOTAL | 08:44 | Health | | | | | (MG/DL) IN | | System - | | | | | SER/PLAS | | [place] | | | | + + + + + + + | | 2020-07-11 | [facility] | 0.2-1.0 | mg/dl | (missing) | | UROBILINOGEN | 08:44 | Health | | | | | (MG/DL) IN | | System - | | | | | URINE BY | | [place] | | | | | TEST STRIP | | | | | | + + + + + + + | | 2020-07-11 | [facility] | 0.2-1.0 | mg/dl | (missing) | | UROBILINOGEN | 08:44 | Health | | | | | (MG/DL) IN | | System - | | | | | URINE BY | | [place] | | | | | TEST STRIP | | | | | | + + + + + + + | | 2020-07-11 | [facility] | 0.7 | % | (missing) | | BASOPHILS/10 | 08:44 | Health | | | | | 0 LEUKOCYTES | | System - | | | | | IN BLOOD BY | | [place] | | | | | AUTOMATED | [...] | | IN BLOOD BY | | [place] | | | | | AUTOMATED | [...] | | | | AUTOMATED | | [place] | | | | | COUNT | | | | | | + + + + + + + | MONOCYTES | 2020-07-11 | [facility] | 0.7 | k/mcl | (missing) | | (10*3/UL) IN | 08:44 | Health | | | | | BLOOD BY | | System - | | | | | AUTOMATED | | [place] | | | | | COUNT | | | | | | + + + + + + + | CREATININE | 2020-07-11 | [facility] | 0.7 | mg/dl | (missing) | | (MG/DL) IN | 08:44 | Health | | | | | SER/PLAS | | System - | | | | | | | [place] | | | | + + + + + + + | CREATININE | 2020-07-11 | [facility] | 0.7 | mg/dl | (missing) | | (MG/DL) IN | 08:44 | Health | | | | | SER/PLAS | | System - | | | | | | | [place] | | | | + + + + + + + | IMMATURE | 2020-07-11 | [facility] | 0.8 | % | (missing) | | GRANULOCYTE | 08:44 | Health | | | | | % (AUTO) | | System - | | | | | | | [place] | | | | + + + + + + + | IMMATURE | 2020-07-11 | [facility] | 0.8 | % | (missing) | | GRANULOCYTE | 08:44 | Health | | | | | % (AUTO) | | System - | | | | | | | [place] | | | | + + + + + + + | PROTEIN IN | 2020-07-11 | [facility] | 1 | (missing) | (missing) | | URINE BY | 08:44 | Health | | | | | TEST STRIP | | System - | | | | | | | [place] | | | | + + + + + + + | PROTEIN IN | 2020-07-11 | [facility] | 1 | (missing) | (missing) | | URINE BY | 08:44 | Health | | | | | TEST STRIP | | System - | | | | | | | [place] | | | | + + + + + + + | BACTERIA | 2020-07-11 | [facility] | 1 | /hpf | (missing) | | (#/HPF) IN | 08:44 | Health | | | | | URINE | | System - | | | | | | | [place] | | | | + + + + + + + | BACTERIA | 2020-07-11 | [facility] | 1 | /hpf | (missing) | | (#/HPF) IN | 08:44 | Health | | | | | URINE | | System - | | | | | | | [place] | | | | + + + + + + + | SPECIFIC | 2020-07-11 | [facility] | 1.031 | (missing) | (missing) | | GRAVITY OF | 08:44 | Health | | | | | URINE BY | | System - | | | | | AUTOMATED | | [place] | | | | | TEST STRIP | | | | | | + + + + + + + | SPECIFIC | 2020-07-11 | [facility] | 1.031 | (missing) | (missing) | | GRAVITY OF | 08:44 | Health | | | | | URINE BY | | System - | | | | | AUTOMATED | | [place] | | | | | TEST STRIP | | | | | | + + + + + + + | | 2020-07-11 | [facility] | 1.60 | :1 | (missing) | | ALBUMIN/GLOB | 08:44 | Health | | | | | ULIN (A/G | | System - | | | | | RATIO) IN | | [place] | | | | | SER/PLAS | | | | | | + + + + + + + | | 2020-07-11 | [facility] | 1.60 | :1 | (missing) | | ALBUMIN/GLOB | 08:44 | Health | | | | | ULIN (A/G | | System - | | | | | RATIO) IN | | [place] | | | | | SER/PLAS | | | | | | + + + + + + + | SQUAMOUS | 2020-07-11 | [facility] | 10 | /hpf | (missing) | | EPITHELIAL | 08:44 | Health | | | | | CELLS | | System - | | | | | (#/HPF) IN | | [place] | | | | | URINE | [...] | | | (#/HPF) IN | | [place] | | | | | URINE | [...] | | | | | | | [place] | | | | + + + + + + + | ANION GAP | 2020-07-11 | [facility] | 10.0 | mmol/l | (missing) | | IN SER/PLAS | 08:44 | Health | | | | | | | System - | | | | | | | [place] | | | | + + + + + + + | | 2020-07-11 | [facility] | 10.4 | k/mcl | (missing) | | LEUKOCYTES(1 | 08:44 | Health | | | | | 0*3/UL) IN | | System - | | | | | BLOOD BY | | [place] | | | | | AUTOMATED | [...] | | | BLOOD BY | | [place] | | | | | AUTOMATED | [...] | | | | | | | [place] | | | | + + + + + + + | CHLORIDE | 2020-07-11 | [facility] | 109 | mmol/l | (missing) | | (MMOL/L) IN | 08:44 | Health | | | | | SER/PLAS | | System - | | | | | | | [place] | | | | + + + + + + + | ERYTHROCYTE | 2020-07-11 | [facility] | 12.4 | % | (missing) | | | 08:44 | Health | | | | | DISTRIBUTION | | System - | | | | | WIDTH | | [place] | | | | | (RATIO) BY [...] | | | | WIDTH | | [place] | | | | | (RATIO) BY [...] | | | (MG/DL) IN | | [place] | | | | | SER/PLAS | | | | | | + + + + + + + | BLOOD UREA | 2020-07-11 | [facility] | 14 | mg/dl | (missing) | | NITROGEN | 08:44 | Health | | | | | (BUN) | | System - | | | | | (MG/DL) IN | | [place] | | | | | SER/PLAS | | | | | | + + + + + + + | HEMOGLOBIN | 2020-07-11 | [facility] | 14.8 | g/dl | (missing) | | (G/DL) IN | 08:44 | Health | | | | | BLOOD | | System - | | | | | | | [place] | | | | + + + + + + + | HEMOGLOBIN | 2020-07-11 | [facility] | 14.8 | g/dl | (missing) | | (G/DL) IN | 08:44 | Health | | | | | BLOOD | | System - | | | | | | | [place] | | | | + + + + + + + | SODIUM | 2020-07-11 | [facility] | 143 | mmol/l | (missing) | | (MMOL/L) IN | 08:44 | Health | | | | | SER/PLAS | | System - | | | | | | | [place] | | | | + + + + + + + | SODIUM | 2020-07-11 | [facility] | 143 | mmol/l | (missing) | | (MMOL/L) IN | 08:44 | Health | | | | | SER/PLAS | | System - | | | | | | | [place] | | | | + + + + + + + | ASPARTATE | 2020-07-11 | [facility] | 17 | u/l | (missing) | | AMINOTRANSFE | 08:44 | Health | | | | | RASE (SGOT) | | System - | | | | | (U/L) IN | | [place] | | | | | SER/PLAS | | | | | | + + + + + + + | ASPARTATE | 2020-07-11 | [facility] | 17 | u/l | (missing) | | AMINOTRANSFE | 08:44 | Health | | | | | RASE (SGOT) | | System - | | | | | (U/L) IN | | [place] | | | | | SER/PLAS | | | | | | + + + + + + + | HEMOGLOBIN | 2020-07-11 | [facility] | 2 | (missing) | (missing) | | PRESENCE IN | 08:44 | Health | | | | | URINE | | System - | | | | | | | [place] | | | | + + + + + + + | HEMOGLOBIN | 2020-07-11 | [facility] | 2 | (missing) | (missing) | | PRESENCE IN | 08:44 | Health | | | | | URINE | | System - | | | | | | | [place] | | | | + + + + + + + | WBC | 2020-07-11 | [facility] | 2 | /hpf | (missing) | | (LEUKOCYTE) | 08:44 | Health | | | | | (#/HPF) IN | | System - | | | | | URINE | | [place] | | | | | SEDIMENT | | | | | | + + + + + + + | WBC | 2020-07-11 | [facility] | 2 | /hpf | (missing) | | (LEUKOCYTE) | 08:44 | Health | | | | | (#/HPF) IN | | System - | | | | | URINE | | [place] | | | | | SEDIMENT | | | | | | + + + + + + + | | 2020-07-11 | [facility] | 2.3 | % | (missing) | | EOSINOPHILS/ | 08:44 | Health | | | | | 100 | | System - | | | | | LEUKOCYTES | | [place] | | | | | IN BLOOD [...] | | | | LEUKOCYTES | | [place] | | | | | IN BLOOD [...] | | | | | | | [place] | | | | + + + + + + + | GLOBULIN | 2020-07-11 | [facility] | 2.5 | g/dl | (missing) | | (G/DL) IN | 08:44 | Health | | | | | SER/PLAS | | System - | | | | | | | [place] | | | | + + + + + + + | ALANINE | 2020-07-11 | [facility] | 23 | u/l | (missing) | | AMINOTRANSFE | 08:44 | Health | | | | | RASE (SGPT) | | System - | | | | | (U/L) IN | | [place] | | | | | SER/PLAS | | | | | | + + + + + + + | ALANINE | 2020-07-11 | [facility] | 23 | u/l | (missing) | | AMINOTRANSFE | 08:44 | Health | | | | | RASE (SGPT) | | System - | | | | | (U/L) IN | | [place] | | | | | SER/PLAS | | | | | | + + + + + + + | CARBON | 2020-07-11 | [facility] | 24 | mmol/l | (missing) | | DIOXIDE | 08:44 | Health | | | | | (CO2), TOTAL | | System - | | | | | (MMOL/L) IN | | [place] | | | | | SER/PLAS | | | | | | + + + + + + + | CARBON | 2020-07-11 | [facility] | 24 | mmol/l | (missing) | | DIOXIDE | 08:44 | Health | | | | | (CO2), TOTAL | | System - | | | | | (MMOL/L) IN | | [place] | | | | | SER/PLAS | | | | | | + + + + + + + | LYMPHOCYTES | 2020-07-11 | [facility] | 3.2 | k/mcl | (missing) | | (10*3/UL) | 08:44 | Health | | | | | IN BLOOD BY | | System - | | | | | AUTOMATED | | [place] | | | | | COUNT | | | | | | + + + + + + + | LYMPHOCYTES | 2020-07-11 | [facility] | 3.2 | k/mcl | (missing) | | (10*3/UL) | 08:44 | Health | | | | | IN BLOOD BY | | System - | | | | | AUTOMATED | | [place] | | | | | COUNT | | | | | | + + + + + + + | POTASSIUM | 2020-07-11 | [facility] | 3.6 | mmol/l | (missing) | | (MMOL/L) IN | 08:44 | Health | | | | | SER/PLAS | | System - | | | | | | | [place] | | | | + + + + + + + | POTASSIUM | 2020-07-11 | [facility] | 3.6 | mmol/l | (missing) | | (MMOL/L) IN | 08:44 | Health | | | | | SER/PLAS | | System - | | | | | | | [place] | | | | + + + + + + + | ERYTHROCYTE | 2020-07-11 | [facility] | 30.8 | pg | (missing) | | MEAN | 08:44 | Health | | | | | CORPUSCULAR | | System - | | | | | HEMOGLOBIN | | [place] | | | | | (PG) BY [...] | | | | HEMOGLOBIN | | [place] | | | | | (PG) BY [...] | | | | LEUKOCYTES | | [place] | | | | | IN BLOOD [...] | | | | LEUKOCYTES | | [place] | | | | | IN BLOOD [...] | | | | AUTOMATED | | [place] | | | | | COUNT | | | | | | + + + + + + + | PLATELETS | 2020-07-11 | [facility] | 322 | k/mcl | (missing) | | (10*3/UL) IN | 08:44 | Health | | | | | BLOOD | | System - | | | | | AUTOMATED | | [place] | | | | | COUNT | | | | | | + + + + + + + | ERYTHROCYTE | 2020-07-11 | [facility] | 33.5 | g/dl | (missing) | | MEAN | 08:44 | Health | | | | | CORPUSCULAR | | System - | | | | | HEMOGLOBIN | | [place] | | | | | CONCENTRATIO | [...] | | | | HEMOGLOBIN | | [place] | | | | | CONCENTRATIO | [...] | | | | | | | [place] | | | | + + + + + + + | RBC (#/HPF) | 2020-07-11 | [facility] | 4 | /hpf | (missing) | | IN URINE | 08:44 | Health | | | | | SEDIMENT | | System - | | | | | | | [place] | | | | + + + + + + + | ALBUMIN | 2020-07-11 | [facility] | 4.0 | g/dl | (missing) | | (G/DL) IN | 08:44 | Health | | | | | SER/PLAS | | System - | | | | | | | [place] | | | | + + + + + + + | ALBUMIN | 2020-07-11 | [facility] | 4.0 | g/dl | (missing) | | (G/DL) IN | 08:44 | Health | | | | | SER/PLAS | | System - | | | | | | | [place] | | | | + + + + + + + | | 2020-07-11 | [facility] | 4.81 | m/mcl | (missing) | | ERYTHROCYTES | 08:44 | Health | | | | | (10*6/UL) | | System - | | | | | IN BLOOD BY | | [place] | | | | | AUTOMATED | [...] | | IN BLOOD BY | | [place] | | | | | AUTOMATED | [...] | | | | AUTOMATED | | [place] | | | | | COUNT | | | | | | + + + + + + + | HEMATOCRIT | 2020-07-11 | [facility] | 44.2 | % | (missing) | | (%) IN BLOOD | 08:44 | Health | | | | | BY | | System - | | | | | AUTOMATED | | [place] | | | | | COUNT | | | | | | + + + + + + + | PH OF URINE | 2020-07-11 | [facility] | 5.0 | (missing) | (missing) | | | 08:44 | Health | | | | | | | System - | | | | | | | [place] | | | | + + + + + + + | PH OF URINE | 2020-07-11 | [facility] | 5.0 | (missing) | (missing) | | | 08:44 | Health | | | | | | | System - | | | | | | | [place] | | | | + + + + + + + | | 2020-07-11 | [facility] | 58.8 | % | (missing) | | NEUTROPHILS/ | 08:44 | Health | | | | | 100 | | System - | | | | | LEUKOCYTES | | [place] | | | | | IN BLOOD [...] | | | | LEUKOCYTES | | [place] | | | | | IN BLOOD [...] | | | | AUTOMATED | | [place] | | | | | COUNT | | | | | | + + + + + + + | NEUTROPHILS | 2020-07-11 | [facility] | 6.1 | k/mcl | (missing) | | (10*3/UL) | 08:44 | Health | | | | | IN BLOOD BY | | System - | | | | | AUTOMATED | | [place] | | | | | COUNT | | | | | | + + + + + + + | | 2020-07-11 | [facility] | 6.4 | % | (missing) | | MONOCYTES/10 | 08:44 | Health | | | | | 0 LEUKOCYTES | | System - | | | | | IN BLOOD BY | | [place] | | | | | AUTOMATED | [...] | | IN BLOOD BY | | [place] | | | | | AUTOMATED | [...] | | | | | | | [place] | | | | + + + + + + + | PROTEIN | 2020-07-11 | [facility] | 6.5 | g/dl | (missing) | | (G/DL) IN | 08:44 | Health | | | | | SER/PLAS | | System - | | | | | | | [place] | | | | + + + + + + + | ALKALINE | 2020-07-11 | [facility] | 69 | u/l | (missing) | | PHOSPHATASE | 08:44 | Health | | | | | (U/L) IN | | System - | | | | | SER/PLAS | | [place] | | | | + + + + + + + | ALKALINE | 2020-07-11 | [facility] | 69 | u/l | (missing) | | PHOSPHATASE | 08:44 | Health | | | | | (U/L) IN | | System - | | | | | SER/PLAS | | [place] | | | | + + + + + + + | CALCIUM | 2020-07-11 | [facility] | 8.7 | mg/dl | (missing) | | (MG/DL) IN | 08:44 | Health | | | | | SER/PLAS | | System - | | | | | | | [place] | | | | + + + + + + + | CALCIUM | 2020-07-11 | [facility] | 8.7 | mg/dl | (missing) | | (MG/DL) IN | 08:44 | Health | | | | | SER/PLAS | | System - | | | | | | | [place] | | | | + + + + + + + | GLUCOSE, | 2020-07-11 | [facility] | 89 | mg/dl | (missing) | | RANDOM | 08:44 | Health | | | | | (MG/DL) IN | | System - | | | | | SER/PLAS | | [place] | | | | + + + + + + + | GLUCOSE, | 2020-07-11 | [facility] | 89 | mg/dl | (missing) | | RANDOM | 08:44 | Health | | | | | (MG/DL) IN | | System - | | | | | SER/PLAS | | [place] | | | | + + + + + + + | PLATELET | 2020-07-11 | [facility] | 9.4 | fl | (missing) | | MEAN VOLUME | 08:44 | Health | | | | | (FL) IN | | System - | | | | | BLOOD BY | | [place] | | | | | AUTOMATED | [...] | | | BLOOD BY | | [place] | | | | | AUTOMATED | [...] | | | VOLUME (FL) | | [place] | | | | | BY AUTOMATED [...] | | | VOLUME (FL) | | [place] | | | | | BY AUTOMATED [...] suspicious | | | | | | [place] | bony | | | | | [...] | | | | | | | [place] | | | | + + + + + + + | | 2020-07-11 | [facility] | Electronical | (missing) | (missing) | | (unavailable | 08:44 | Health | ly signed | | | | ) | | System - | by: Pradeep | | | | | | [place] | MD Nuria | | | | | | | on 07/11/2020 | | | | | | | 9:25 AM at | | | | | | | workstation | | | | | | | [id number] | | | + + + + + + + | | 2020-07-11 | [facility] | FINDINGS: | (missing) | (missing) | | (unavailable | 08:44 | Health | | | | | ) | | System - | | | | | | | [place] | | | | + + + + + + + | | 2020-07-11 | [facility] | HEART: | (missing) | (missing) | | (unavailable | 08:44 | Health | Normal in | | | | ) | | System - | size and | | | | | | [place] | appearance. | | | + + + + + + + | CLARITY OF | 2020-07-11 | [facility] | Hazy | (missing) | (missing) | | URINE | 08:44 | Health | | | | | | | System - | | | | | | | [place] | | | | + + + + + + + | CLARITY OF | 2020-07-11 | [facility] | Hazy | (missing) | (missing) | | URINE | 08:44 | Health | | | | | | | System - | | | | | | | [place] | | | | + + + + + + + | | 2020-07-11 | [facility] | | (missing) | (missing) | | (unavailable | 08:44 | Health | INDICATIONS: | | | | ) | | System - | cough fever | | | | | | [place] | | | | + + + + + + + | | 2020-07-11 | [facility] | LUNGS: No | (missing) | (missing) | | (unavailable | 08:44 | Health | focal | | | | ) | | System - | consolidatio | | | | | | [place] | n or | | | | [...] mediastinal | | | | | | [place] | contours | | | | | [...] | | | | URINE | | [place] | | | | + + + + + + + | BILIRUBIN, | 2020-07-11 | [facility] | Negative | (missing) | (missing) | | TOTAL | 08:44 | Health | | | | | PRESENCE IN | | System - | | | | | URINE | | [place] | | | | + + + + + + + | GLUCOSE IN | 2020-07-11 | [facility] | Negative | (missing) | (missing) | | URINE | 08:44 | Health | | | | | | | System - | | | | | | | [place] | | | | + + + + + + + | LEUKOCYTE | 2020-07-11 | [facility] | Negative | (missing) | (missing) | | ESTERASE | 08:44 | Health | | | | | PRESENCE IN | | System - | | | | | URINE BY | | [place] | | | | | TEST STRIP | | | | | | + + + + + + + | NITRITE | 2020-07-11 | [facility] | Negative | (missing) | (missing) | | PRESENCE IN | 08:44 | Health | | | | | URINE | | System - | | | | | | | [place] | | | | + + + + + + + | ASA | 2020-07-11 | [facility] | Negative | (missing) | (missing) | | (ASCORBIC | 08:44 | Health | | | | | ACID) IN | | System - | | | | | URINE | | [place] | | | | + + + + + + + | BILIRUBIN, | 2020-07-11 | [facility] | Negative | (missing) | (missing) | | TOTAL | 08:44 | Health | | | | | PRESENCE IN | | System - | | | | | URINE | | [place] | | | | + + + + + + + | BHCG QUAL | 2020-07-11 | [facility] | Negative | (missing) | (missing) | | (CHORIOGONAD | 08:44 | Health | | | | | OTROPIN) IN | | System - | | | | | SER/PLAS | | [place] | | | | + + + + + + + | GLUCOSE IN | 2020-07-11 | [facility] | Negative | (missing) | (missing) | | URINE | 08:44 | Health | | | | | | | System - | | | | | | | [place] | | | | + + + + + + + | NITRITE | 2020-07-11 | [facility] | Negative | (missing) | (missing) | | PRESENCE IN | 08:44 | Health | | | | | URINE | | System - | | | | | | | [place] | | | | + + + + + + + | LEUKOCYTE | 2020-07-11 | [facility] | Negative | (missing) | (missing) | | ESTERASE | 08:44 | Health | | | | | PRESENCE IN | | System - | | | | | URINE BY | | [place] | | | | | TEST STRIP | | | | | | + + + + + + + | [facility] QUAL | 2020-07-11 | [facility] | Negative | (missing) | (missing) | | (CHORIOGONAD | 08:44 | Health | | | | | OTROPIN) IN | | System - | | | | | SER/PLAS | | [place] | | | | + + + + + + + | | 2020-07-11 | [facility] | No | (missing) | (missing) | | (unavailable | 08:44 | Health | radiographic | | | | ) | | System - | evidence of | | | | | | [place] | acute | | | | | [...] pleural | | | | | | [place] | effusion or | | | | [...] VIEW | | | | | | [place] | | | | + + + + + + + | | 2020-07-11 | [facility] | | (missing) | (missing) | | (unavailable | 08:44 | Health | Procedure(s) | | | | ) | | System - | : * No | | | | | | [place] | procedures | | | | | | | listed * | | | + + + + + + + | KETONES IN | 2020-07-11 | [facility] | Trace | (missing) | (missing) | | URINE | 08:44 | Health | | | | | | | System - | | | | | | | [place] | | | | + + + + + + + | MUCUS | 2020-07-11 | [facility] | Trace | (missing) | (missing) | | (#/HPF) IN | 08:44 | Health | | | | | URINE | | System - | | | | | SEDIMENT | | [place] | | | | + + + + + + + | MUCUS | 2020-07-11 | [facility] | Trace | (missing) | (missing) | | (#/HPF) IN | 08:44 | Health | | | | | URINE | | System - | | | | | SEDIMENT | | [place] | | | | + + + + + + + | KETONES IN | 2020-07-11 | [facility] | Trace | (missing) | (missing) | | URINE | 08:44 | Health | | | | | | | System - | | | | | | | [place] | | | | + + + + + + + | AMORPHOUS | 2020-07-11 | [facility] | Trace | /hpf | (missing) | | CRYSTALS | 08:44 | Health | | | | | (#/HPF) IN | | System - | | | | | URINE | | [place] | | | | + + + + + + + | AMORPHOUS | 2020-07-11 | [facility] | Trace | /hpf | (missing) | | CRYSTALS | 08:44 | Health | | | | | (#/HPF) IN | | System - | | | | | URINE | | [place] | | | | + + + + + + + | COLOR OF | 2020-07-11 | [facility] | Yellow | (missing) | (missing) | | URINE | 08:44 | Health | | | | | | | System - | | | | | | | [place] | | | | + + + + + + + | COLOR OF | 2020-07-11 | [facility] | Yellow | (missing) | (missing) | | URINE | 08:44 | Health | | | | | | | System - | | | | | | | [place] | | | | + + + [...] | | | | | | | [place] | | | | + + + + + + + | BORDETELLA | 2020-07-11 | [facility] | Not | (missing) | (missing) | | PARAPERTUSSI | 08:45 | Health | Detected | | | | S | | System - | | | | | | | [place] | | | | + + + + + + + | BORDETELLA | 2020-07-11 | [facility] | Not | (missing) | (missing) | | PERTUSSIS | 08:45 | Health | Detected | | | | | | System - | | | | | | | [place] | | | | + + + + + + + | | 2020-07-11 | [facility] | Not | (missing) | (missing) | | CHLAMYDOPHIL | 08:45 | Health | Detected | | | | A PNEUMONIAE | | System - | | | | | | | [place] | | | | + + + + + + + | CORONAVIRUS | 2020-07-11 | [facility] | Not | (missing) | (missing) | | 229E | 08:45 | Health | Detected | | | | | | System - | | | | | | | [place] | | | | + + + + + + + | CORONAVIRUS | 2020-07-11 | [facility] | Not | (missing) | (missing) | | HKU1 | 08:45 | Health | Detected | | | | | | System - | | | | | | | [place] | | | | + + + + + + + | CORONAVIRUS | 2020-07-11 | [facility] | Not | (missing) | (missing) | | NL63 | 08:45 | Health | Detected | | | | | | System - | | | | | | | [place] | | | | + + + + + + + | CORONAVIRUS | 2020-07-11 | [facility] | Not | (missing) | (missing) | | OC43 | 08:45 | Health | Detected | | | | | | System - | | | | | | | [place] | | | | + + + + + + + | INFLUENZA A | 2020-07-11 | [facility] | Not | (missing) | (missing) | | | 08:45 | Health | Detected | | | | | | System - | | | | | | | [place] | | | | + + + + + + + | INFLUENZA B | 2020-07-11 | [facility] | Not | (missing) | (missing) | | | 08:45 | Health | Detected | | | | | | System - | | | | | | | [place] | | | | + + + + + + + | | 2020-07-11 | [facility] | Not | (missing) | (missing) | | METAPNEUMOVI | 08:45 | Health | Detected | | | | KELVIN | | System - | | | | | | | [place] | | | | + + + + + + + | MYCOPLASMA | 2020-07-11 | [facility] | Not | (missing) | (missing) | | PNEUMONIAE | 08:45 | Health | Detected | | | | PCR | | System - | | | | | | | [place] | | | | + + + + + + + | | 2020-07-11 | [facility] | Not | (missing) | (missing) | | PARAINFLUENZ | 08:45 | Health | Detected | | | | A 1 | | System - | | | | | | | [place] | | | | + + + + + + + | | 2020-07-11 | [facility] | Not | (missing) | (missing) | | PARAINFLUENZ | 08:45 | Health | Detected | | | | A 2 | | System - | | | | | | | [place] | | | | + + + + + + + | | 2020-07-11 | [facility] | Not | (missing) | (missing) | | PARAINFLUENZ | 08:45 | Health | Detected | | | | A 3 | | System - | | | | | | | [place] | | | | + + + + + + + | | 2020-07-11 | [facility] | Not | (missing) | (missing) | | PARAINFLUENZ | 08:45 | Health | Detected | | | | A 4 | | System - | | | | | | | [place] | | | | + + + + + + + | | 2020-07-11 | [facility] | Not | (missing) | (missing) | | RHINOVIRUS/E | 08:45 | Health | Detected | | | | NTEROVIRUS | | System - | | | | | | | [place] | | | | + + + + + + + | RSV | 2020-07-11 | [facility] | Not | (missing) | (missing) | | | 08:45 | Health | Detected | | | | | | System - | | | | | | | [place] | | | | + + + + + + + | SARS-COV-2 | 2020-07-11 | [facility] | Not | (missing) | (missing) | | (COVID19) | 08:45 | Health | Detected | | | | BIOFIRE | | System - | | | | | MOLECULAR | | [place] | | | | + + + + + + + | BORDETELLA | 2020-07-11 | [facility] | Not | (missing) | (missing) | | PERTUSSIS | 08:45 | Health | Detected | | | | | | System - | | | | | | | [place] | | | | + + + + + + + | MYCOPLASMA | 2020-07-11 | [facility] | Not | (missing) | (missing) | | PNEUMONIAE | 08:45 | Health | Detected | | | | PCR | | System - | | | | | | | [place] | | | | + + + + + + + | | 2020-07-11 | [facility] | Not | (missing) | (missing) | | PARAINFLUENZ | 08:45 | Health | Detected | | | | A 1 | | System - | | | | | | | [place] | | | | + + + + + + + | | 2020-07-11 | [facility] | Not | (missing) | (missing) | | PARAINFLUENZ | 08:45 | Health | Detected | | | | A 2 | | System - | | | | | | | [place] | | | | + + + + + + + | | 2020-07-11 | [facility] | Not | (missing) | (missing) | | CHLAMYDOPHIL | 08:45 | Health | Detected | | | | A PNEUMONIAE | | System - | | | | | | | [place] | | | | + + + + + + + | | 2020-07-11 | [facility] | Not | (missing) | (missing) | | METAPNEUMOVI | 08:45 | Health | Detected | | | | KELVIN | | System - | | | | | | | [place] | | | | + + + + + + + | ADENOVIRUS | 2020-07-11 | [facility] | Not | (missing) | (missing) | | DETECTION BY | 08:45 | Health | Detected | | | | PCR | | System - | | | | | | | [place] | | | | + + + + + + + | INFLUENZA B | 2020-07-11 | [facility] | Not | (missing) | (missing) | | | 08:45 | Health | Detected | | | | | | System - | | | | | | | [place] | | | | + + + + + + + | RSV | 2020-07-11 | [facility] | Not | (missing) | (missing) | | | 08:45 | Health | Detected | | | | | | System - | | | | | | | [place] | | | | + + + + + + + | | 2020-07-11 | [facility] | Not | (missing) | (missing) | | RHINOVIRUS/E | 08:45 | Health | Detected | | | | NTEROVIRUS | | System - | | | | | | | [place] | | | | + + + + + + + | CORONAVIRUS | 2020-07-11 | [facility] | Not | (missing) | (missing) | | 229E | 08:45 | Health | Detected | | | | | | System - | | | | | | | [place] | | | | + + + + + + + | CORONAVIRUS | 2020-07-11 | [facility] | Not | (missing) | (missing) | | NL63 | 08:45 | Health | Detected | | | | | | System - | | | | | | | [place] | | | | + + + + + + + | CORONAVIRUS | 2020-07-11 | [facility] | Not | (missing) | (missing) | | OC43 | 08:45 | Health | Detected | | | | | | System - | | | | | | | [place] | | | | + + + + + + + | | 2020-07-11 | [facility] | Not | (missing) | (missing) | | PARAINFLUENZ | 08:45 | Health | Detected | | | | A 4 | | System - | | | | | | | [place] | | | | + + + + + + + | | 2020-07-11 | [facility] | Not | (missing) | (missing) | | PARAINFLUENZ | 08:45 | Health | Detected | | | | A 3 | | System - | | | | | | | [place] | | | | + + + + + + + | CORONAVIRUS | 2020-07-11 | [facility] | Not | (missing) | (missing) | | HKU1 | 08:45 | Health | Detected | | | | | | System - | | | | | | | [place] | | | | + + + + + + + | BORDETELLA | 2020-07-11 | [facility] | Not | (missing) | (missing) | | PARAPERTUSSI | 08:45 | Health | Detected | | | | S | | System - | | | | | | | [place] | | | | + + + + + + + | SARS-COV-2 | 2020-07-11 | [facility] | Not | (missing) | (missing) | | (COVID19) | 08:45 | Health | Detected | | | | BIOFIRE | | System - | | | | | MOLECULAR | | [place] | | | | + + + [...] | | | URINE BY | | [place] | | | | | SCREEN | [...] | | | | (PRESENCE) | | [place] | | | | | IN URINE [...] | | | | SCREEN | | [place] | | | | | METHOD | | | | | | + + + + + + + | METHADONE | 2020-07-11 | [facility] | Negative | (missing) | (missing) | | (PRESENCE) | 08:51 | Health | | | | | IN URINE BY | | System - | | | | | SCREEN | | [place] | | | | | METHOD | | | | | | + + + + + + + | OPIATES | 2020-07-11 | [facility] | Negative | (missing) | (missing) | | (PRESENCE) | 08:51 | Health | | | | | IN URINE BY | | System - | | | | | SCREEN | | [place] | | | | | METHOD | | | | | | + + + + + + + | OXYCODONE | 2020-07-11 | [facility] | Negative | (missing) | (missing) | | (PRESENCE) | 08:51 | Health | | | | | IN URINE BY | | System - | | | | | SCREEN | | [place] | | | | | METHOD | | | | | | + + + + + + + | | 2020-07-11 | [facility] | Negative | (missing) | (missing) | | PHENCYCLIDIN | 08:51 | Health | | | | | E (PRESENCE) | | System - | | | | | IN URINE BY | | [place] | | | | | SCREEN | [...] | | | | (PRESENCE) | | [place] | | | | | IN URINE | | | | | | + + + + + + + | | 2020-07-11 | [facility] | Negative | (missing) | (missing) | | PHENCYCLIDIN | 08:51 | Health | | | | | E (PRESENCE) | | System - | | | | | IN URINE BY | | [place] | | | | | SCREEN | [...] | | | | SCREEN | | [place] | | | | | METHOD | | | | | | + + + + + + + | TRICYCLIC | 2020-07-11 | [facility] | Negative | (missing) | (missing) | | ANTIDEPRESSA | 08:51 | Health | | | | | NTS | | System - | | | | | (PRESENCE) | | [place] | | | | | IN URINE | | | | | | + + + + + + + | AMPHETAMINE | 2020-07-11 | [facility] | Negative | (missing) | (missing) | | (PRESENCE) | 08:51 | Health | | | | | IN URINE BY | | System - | | | | | SCREEN | | [place] | | | | | METHOD | | | | | | + + + + + + + | OXYCODONE | 2020-07-11 | [facility] | Negative | (missing) | (missing) | | (PRESENCE) | 08:51 | Health | | | | | IN URINE BY | | System - | | | | | SCREEN | | [place] | | | | | METHOD | | | | | | + + + + + + + | COCAINE | 2020-07-11 | [facility] | Negative | (missing) | (missing) | | (PRESENCE) | 08:51 | Health | | | | | IN URINE BY | | System - | | | | | SCREEN | | [place] | | | | | METHOD | | | | | | + + + + + + + | | 2020-07-11 | [facility] | Negative | (missing) | (missing) | | BARBITURATES | 08:51 | Health | | | | | PRESENCE IN | | System - | | | | | URINE BY | | [place] | | | | | SCREEN | [...] | | | | (PRESENCE) | | [place] | | | | | IN URINE [...] | | | | SCREEN | | [place] | | | | | METHOD | | | | | | + + + + + + + | AMPHETAMINE | 2020-07-11 | [facility] | Negative | (missing) | (missing) | | (PRESENCE) | 08:51 | Health | | | | | IN URINE BY | | System - | | | | | SCREEN | | [place] | | | | | METHOD | | | | | | + + + + + + + | | 2020-07-11 | [facility] | Presumptive | (missing) | (missing) | | METHAMPHETAM | 08:51 | Health | Positive | | | | INE | | System - | | | | | (PRESENCE) | | [place] | | | | | IN URINE [...] | | | BY SCREEN | | [place] | | | | | METHOD | | | | | | + + + + + + + | THC | 2020-07-11 | [facility] | Presumptive | (missing) | (missing) | | (CANNABINOID | 08:51 | Health | Positive | | | | ) IN URINE | | System - | | | | | BY SCREEN | | [place] | | | | | METHOD | | | | | | + + + + + + + | | 2020-07-11 | [facility] | Presumptive | (missing) | (missing) | | METHAMPHETAM | 08:51 | Health | Positive | | | | INE | | System - | | | | | (PRESENCE) | | [place] | | | | | IN URINE [...] | | | | URINE | | [place] | | | | | SEDIMENT | | | | | | + + + + + + + | WBC | 2020-11-07 | [facility] | < | /hpf | (missing) | | (LEUKOCYTE) | 15:52 | Health | | | | | (#/HPF) IN | | System - | | | | | URINE | | [place] | | | | | SEDIMENT | | | | | | + + + + + + + | | 2020-11-07 | [facility] | 0.2-1.0 | mg/dl | (missing) | | UROBILINOGEN | 15:52 | Health | | | | | (MG/DL) IN | | System - | | | | | URINE BY | | [place] | | | | | TEST STRIP | | | | | | + + + + + + + | | 2020-11-07 | [facility] | 0.2-1.0 | mg/dl | (missing) | | UROBILINOGEN | 15:52 | Health | | | | | (MG/DL) IN | | System - | | | | | URINE BY | | [place] | | | | | TEST STRIP | | | | | | + + + + + + + | SPECIFIC | 2020-11-07 | [facility] | 1.025 | (missing) | (missing) | | GRAVITY OF | 15:52 | Health | | | | | URINE BY | | System - | | | | | AUTOMATED | | [place] | | | | | TEST STRIP | | | | | | + + + + + + + | SPECIFIC | 2020-11-07 | [facility] | 1.025 | (missing) | (missing) | | GRAVITY OF | 15:52 | Health | | | | | URINE BY | | System - | | | | | AUTOMATED | | [place] | | | | | TEST STRIP | | | | | | + + + + + + + | HEMOGLOBIN | 2020-11-07 | [facility] | 2 | (missing) | (missing) | | PRESENCE IN | 15:52 | Health | | | | | URINE | | System - | | | | | | | [place] | | | | + + + + + + + | HEMOGLOBIN | 2020-11-07 | [facility] | 2 | (missing) | (missing) | | PRESENCE IN | 15:52 | Health | | | | | URINE | | System - | | | | | | | [place] | | | | + + + + + + + | RBC (#/HPF) | 2020-11-07 | [facility] | 5 | /hpf | (missing) | | IN URINE | 15:52 | Health | | | | | SEDIMENT | | System - | | | | | | | [place] | | | | + + + + + + + | RBC (#/HPF) | 2020-11-07 | [facility] | 5 | /hpf | (missing) | | IN URINE | 15:52 | Health | | | | | SEDIMENT | | System - | | | | | | | [place] | | | | + + + + + + + | PH OF URINE | 2020-11-07 | [facility] | 5.0 | (missing) | (missing) | | | 15:52 | Health | | | | | | | System - | | | | | | | [place] | | | | + + + + + + + | PH OF URINE | 2020-11-07 | [facility] | 5.0 | (missing) | (missing) | | | 15:52 | Health | | | | | | | System - | | | | | | | [place] | | | | + + + + + + + | SQUAMOUS | 2020-11-07 | [facility] | 8 | /hpf | (missing) | | EPITHELIAL | 15:52 | Health | | | | | CELLS | | System - | | | | | (#/HPF) IN | | [place] | | | | | URINE | [...] | | | (#/HPF) IN | | [place] | | | | | URINE | [...] | | | | | | | [place] | | | | + + + + + + + | CLARITY OF | 2020-11-07 | [facility] | Hazy | (missing) | (missing) | | URINE | 15:52 | Health | | | | | | | System - | | | | | | | [place] | | | | + + + + + + + | ASA | 2020-11-07 | [facility] | Negative | (missing) | (missing) | | (ASCORBIC | 15:52 | Health | | | | | ACID) IN | | System - | | | | | URINE | | [place] | | | | + + + + + + + | BILIRUBIN, | 2020-11-07 | [facility] | Negative | (missing) | (missing) | | TOTAL | 15:52 | Health | | | | | PRESENCE IN | | System - | | | | | URINE | | [place] | | | | + + + + + + + | GLUCOSE IN | 2020-11-07 | [facility] | Negative | (missing) | (missing) | | URINE | 15:52 | Health | | | | | | | System - | | | | | | | [place] | | | | + + + + + + + | KETONES IN | 2020-11-07 | [facility] | Negative | (missing) | (missing) | | URINE | 15:52 | Health | | | | | | | System - | | | | | | | [place] | | | | + + + + + + + | LEUKOCYTE | 2020-11-07 | [facility] | Negative | (missing) | (missing) | | ESTERASE | 15:52 | Health | | | | | PRESENCE IN | | System - | | | | | URINE BY | | [place] | | | | | TEST STRIP | | | | | | + + + + + + + | NITRITE | 2020-11-07 | [facility] | Negative | (missing) | (missing) | | PRESENCE IN | 15:52 | Health | | | | | URINE | | System - | | | | | | | [place] | | | | + + + + + + + | PROTEIN IN | 2020-11-07 | [facility] | Negative | (missing) | (missing) | | URINE BY | 15:52 | Health | | | | | TEST STRIP | | System - | | | | | | | [place] | | | | + + + + + + + | ASA | 2020-11-07 | [facility] | Negative | (missing) | (missing) | | (ASCORBIC | 15:52 | Health | | | | | ACID) IN | | System - | | | | | URINE | | [place] | | | | + + + + + + + | BILIRUBIN, | 2020-11-07 | [facility] | Negative | (missing) | (missing) | | TOTAL | 15:52 | Health | | | | | PRESENCE IN | | System - | | | | | URINE | | [place] | | | | + + + + + + + | GLUCOSE IN | 2020-11-07 | [facility] | Negative | (missing) | (missing) | | URINE | 15:52 | Health | | | | | | | System - | | | | | | | [place] | | | | + + + + + + + | NITRITE | 2020-11-07 | [facility] | Negative | (missing) | (missing) | | PRESENCE IN | 15:52 | Health | | | | | URINE | | System - | | | | | | | [place] | | | | + + + + + + + | KETONES IN | 2020-11-07 | [facility] | Negative | (missing) | (missing) | | URINE | 15:52 | Health | | | | | | | System - | | | | | | | [place] | | | | + + + + + + + | PROTEIN IN | 2020-11-07 | [facility] | Negative | (missing) | (missing) | | URINE BY | 15:52 | Health | | | | | TEST STRIP | | System - | | | | | | | [place] | | | | + + + + + + + | LEUKOCYTE | 2020-11-07 | [facility] | Negative | (missing) | (missing) | | ESTERASE | 15:52 | Health | | | | | PRESENCE IN | | System - | | | | | URINE BY | | [place] | | | | | TEST STRIP | | | | | | + + + + + + + | MUCUS | 2020-11-07 | [facility] | Trace | (missing) | (missing) | | (#/HPF) IN | 15:52 | Health | | | | | URINE | | System - | | | | | SEDIMENT | | [place] | | | | + + + + + + + | MUCUS | 2020-11-07 | [facility] | Trace | (missing) | (missing) | | (#/HPF) IN | 15:52 | Health | | | | | URINE | | System - | | | | | SEDIMENT | | [place] | | | | + + + + + + + | BACTERIA | 2020-11-07 | [facility] | Trace | /hpf | (missing) | | (#/HPF) IN | 15:52 | Health | | | | | URINE | | System - | | | | | | | [place] | | | | + + + + + + + | BACTERIA | 2020-11-07 | [facility] | Trace | /hpf | (missing) | | (#/HPF) IN | 15:52 | Health | | | | | URINE | | System - | | | | | | | [place] | | | | + + + + + + + | COLOR OF | 2020-11-07 | [facility] | Yellow | (missing) | (missing) | | URINE | 15:52 | Health | | | | | | | System - | | | | | | | [place] | | | | + + + + + + + | COLOR OF | 2020-11-07 | [facility] | Yellow | (missing) | (missing) | | URINE | 15:52 | Health | | | | | | | System - | | | | | | | [place] | | | | + + + [...] ? | | | RATE) | | [place] | | | | | ML/MIN/1.73 | [...] ? | | | RATE) | | [place] | | | | | ML/MIN/1.73 | [...] | | | | | | | [place] | | | | + + + + + + + | ALCOHOL | 2020-11-07 | [facility] | < | g/dl | (missing) | | (G/DL) IN | 15:53 | Health | | | | | SER/PLAS | | System - | | | | | | | [place] | | | | + + + + + + + | | 2020-11-07 | [facility] | < | mcg/ml | (missing) | | ACETAMINOPHE | 15:53 | Health | | | | | N (UG/ML) IN | | System - | | | | | SER/PLAS | | [place] | | | | + + + + + + + | | 2020-11-07 | [facility] | < | mcg/ml | (missing) | | ACETAMINOPHE | 15:53 | Health | | | | | N (UG/ML) IN | | System - | | | | | SER/PLAS | | [place] | | | | + + + + + + + | SALICYLATE | 2020-11-07 | [facility] | < | mg/dl | (missing) | | (MG/DL) IN | 15:53 | Health | | | | | SER/PLAS | | System - | | | | | | | [place] | | | | + + + + + + + | SALICYLATE | 2020-11-07 | [facility] | < | mg/dl | (missing) | | (MG/DL) IN | 15:53 | Health | | | | | SER/PLAS | | System - | | | | | | | [place] | | | | + + + + + + + | NRBC/100 | 2020-11-07 | [facility] | 0.0 | % | (missing) | | WBCS BY | 15:53 | Health | | | | | AUTOMATED | | System - | | | | | COUNT | | [place] | | | | + + + + + + + | NRBC/100 | 2020-11-07 | [facility] | 0.0 | % | (missing) | | WBCS BY | 15:53 | Health | | | | | AUTOMATED | | System - | | | | | COUNT | | [place] | | | | + + + + + + + | | 2020-11-07 | [facility] | 0.0 | k/mcl | (missing) | | NRBC(10*3/UL | 15:53 | Health | | | | | ) IN BLOOD | | System - | | | | | BY AUTOMATED | | [place] | | | | | COUNT | | | | | | + + + + + + + | | 2020-11-07 | [facility] | 0.0 | k/mcl | (missing) | | NRBC(10*3/UL | 15:53 | Health | | | | | ) IN BLOOD | | System - | | | | | BY AUTOMATED | | [place] | | | | | COUNT | | | | | | + + + + + + + | IMMATURE | 2020-11-07 | [facility] | 0.05 | k/mcl | (missing) | | GRANULOCYTE | 15:53 | Health | | | | | (ABS) | | System - | | | | | | | [place] | | | | + + + + + + + | IMMATURE | 2020-11-07 | [facility] | 0.05 | k/mcl | (missing) | | GRANULOCYTE | 15:53 | Health | | | | | (ABS) | | System - | | | | | | | [place] | | | | + + + + + + + | BASOPHILS | 2020-11-07 | [facility] | 0.1 | k/mcl | (missing) | | (10*3/UL) IN | 15:53 | Health | | | | | BLOOD BY | | System - | | | | | AUTOMATED | | [place] | | | | | COUNT | | | | | | + + + + + + + | BASOPHILS | 2020-11-07 | [facility] | 0.1 | k/mcl | (missing) | | (10*3/UL) IN | 15:53 | Health | | | | | BLOOD BY | | System - | | | | | AUTOMATED | | [place] | | | | | COUNT | | | | | | + + + + + + + | BILIRUBIN | 2020-11-07 | [facility] | 0.2 | mg/dl | (missing) | | TOTAL | 15:53 | Health | | | | | (MG/DL) IN | | System - | | | | | SER/PLAS | | [place] | | | | + + + + + + + | BILIRUBIN | 2020-11-07 | [facility] | 0.2 | mg/dl | (missing) | | TOTAL | 15:53 | Health | | | | | (MG/DL) IN | | System - | | | | | SER/PLAS | | [place] | | | | + + + + + + + | EOSINOPHILS | 2020-11-07 | [facility] | 0.3 | k/mcl | (missing) | | (10*3/UL) | 15:53 | Health | | | | | IN BLOOD BY | | System - | | | | | AUTOMATED | | [place] | | | | | COUNT | | | | | | + + + + + + + | EOSINOPHILS | 2020-11-07 | [facility] | 0.3 | k/mcl | (missing) | | (10*3/UL) | 15:53 | Health | | | | | IN BLOOD BY | | System - | | | | | AUTOMATED | | [place] | | | | | COUNT | | | | | | + + + + + + + | IMMATURE | 2020-11-07 | [facility] | 0.4 | % | (missing) | | GRANULOCYTE | 15:53 | Health | | | | | % (AUTO) | | System - | | | | | | | [place] | | | | + + + + + + + | | 2020-11-07 | [facility] | 0.4 | % | (missing) | | BASOPHILS/10 | 15:53 | Health | | | | | 0 LEUKOCYTES | | System - | | | | | IN BLOOD BY | | [place] | | | | | AUTOMATED | [...] | | IN BLOOD BY | | [place] | | | | | AUTOMATED | [...] | | | | | | | [place] | | | | + + + + + + + | CREATININE | 2020-11-07 | [facility] | 0.6 | mg/dl | (missing) | | (MG/DL) IN | 15:53 | Health | | | | | SER/PLAS | | System - | | | | | | | [place] | | | | + + + + + + + | CREATININE | 2020-11-07 | [facility] | 0.6 | mg/dl | (missing) | | (MG/DL) IN | 15:53 | Health | | | | | SER/PLAS | | System - | | | | | | | [place] | | | | + + + + + + + | MONOCYTES | 2020-11-07 | [facility] | 0.7 | k/mcl | (missing) | | (10*3/UL) IN | 15:53 | Health | | | | | BLOOD BY | | System - | | | | | AUTOMATED | | [place] | | | | | COUNT | | | | | | + + + + + + + | MONOCYTES | 2020-11-07 | [facility] | 0.7 | k/mcl | (missing) | | (10*3/UL) IN | 15:53 | Health | | | | | BLOOD BY | | System - | | | | | AUTOMATED | | [place] | | | | | COUNT | | | | | | + + + + + + + | | 2020-11-07 | [facility] | 1.74 | :1 | (missing) | | ALBUMIN/GLOB | 1553 | Health | | | | | ULIN (A/G | | System - | | | | | RATIO) IN | | [place] | | | | | SER/PLAS | | | | | | + + + + + + + | | 2020-11-07 | [facility] | 1.74 | :1 | (missing) | | ALBUMIN/GLOB | 15:53 | Health | | | | | ULIN (A/G | | System - | | | | | RATIO) IN | | [place] | | | | | SER/PLAS | | | | | | + + + + + + + | CHLORIDE | 2020-11-07 | [facility] | 108 | mmol/l | (missing) | | (MMOL/L) IN | 15:53 | Health | | | | | SER/PLAS | | System - | | | | | | | [place] | | | | + + + + + + + | CHLORIDE | 2020-11-07 | [facility] | 108 | mmol/l | (missing) | | (MMOL/L) IN | 15:53 | Health | | | | | SER/PLAS | | System - | | | | | | | [place] | | | | + + + + + + + | BLOOD UREA | 2020-11-07 | [facility] | 11 | mg/dl | (missing) | | NITROGEN | 15:53 | Health | | | | | (BUN) | | System - | | | | | (MG/DL) IN | | [place] | | | | | SER/PLAS | | | | | | + + + + + + + | BLOOD UREA | 2020-11-07 | [facility] | 11 | mg/dl | (missing) | | NITROGEN | 15:53 | Health | | | | | (BUN) | | System - | | | | | (MG/DL) IN | | [place] | | | | | SER/PLAS | | | | | | + + + + + + + | ALANINE | 2020-11-07 | [facility] | 11 | u/l | (missing) | | AMINOTRANSFE | 15:53 | Health | | | | | RASE (SGPT) | | System - | | | | | (U/L) IN | | [place] | | | | | SER/PLAS | | | | | | + + + + + + + | ALANINE | 2020-11-07 | [facility] | 11 | u/l | (missing) | | AMINOTRANSFE | 15:53 | Health | | | | | RASE (SGPT) | | System - | | | | | (U/L) IN | | [place] | | | | | SER/PLAS | | | | | | + + + + + + + | ERYTHROCYTE | 2020-11-07 | [facility] | 12.0 | % | (missing) | | | 15:53 | Health | | | | | DISTRIBUTION | | System - | | | | | WIDTH | | [place] | | | | | (RATIO) BY [...] | | | | WIDTH | | [place] | | | | | (RATIO) BY [...] | | | BLOOD BY | | [place] | | | | | AUTOMATED | [...] | | | BLOOD BY | | [place] | | | | | AUTOMATED | [...] | | | | | | | [place] | | | | + + + + + + + | SODIUM | 2020-11-07 | [facility] | 139 | mmol/l | (missing) | | (MMOL/L) IN | 15:53 | Health | | | | | SER/PLAS | | System - | | | | | | | [place] | | | | + + + + + + + | HEMOGLOBIN | 2020-11-07 | [facility] | 14.1 | g/dl | (missing) | | (G/DL) IN | 15:53 | Health | | | | | BLOOD | | System - | | | | | | | [place] | | | | + + + + + + + | HEMOGLOBIN | 2020-11-07 | [facility] | 14.1 | g/dl | (missing) | | (G/DL) IN | 15:53 | Health | | | | | BLOOD | | System - | | | | | | | [place] | | | | + + + + + + + | | 2020-11-07 | [facility] | 2.0 | % | (missing) | | EOSINOPHILS/ | 15:53 | Health | | | | | 100 | | System - | | | | | LEUKOCYTES | | [place] | | | | | IN BLOOD [...] | | | | LEUKOCYTES | | [place] | | | | | IN BLOOD BY | | | | | | | AUTOMATED | | | | | | | COUNT | | | | | | + + + + + + + | GLOBULIN | 2020-11-07 | [facility] | 2.3 | g/dl | (missing) | | (G/DL) IN | 53 | Health | | | | | SER/PLAS | | System - | | | | | | | [place] | | | | + + + + + + + | GLOBULIN | 2020-11-07 | [facility] | 2.3 | g/dl | (missing) | | (G/DL) IN | 15:53 | Health | | | | | SER/PLAS | | System - | | | | | | | [place] | | | | + + + + + + + | ASPARTATE | 2020-11-07 | [facility] | 20 | u/l | (missing) | | AMINOTRANSFE | 15:53 | Health | | | | | RASE (SGOT) | | System - | | | | | (U/L) IN | | [place] | | | | | SER/PLAS | | | | | | + + + + + + + | ASPARTATE | 2020-11-07 | [facility] | 20 | u/l | (missing) | | AMINOTRANSFE | 15:53 | Health | | | | | RASE (SGOT) | | System - | | | | | (U/L) IN | | [place] | | | | | SER/PLAS | | | | | | + + + + + + + | CARBON | 2020-11-07 | [facility] | 22 | mmol/l | (missing) | | DIOXIDE | 15:53 | Health | | | | | (CO2), TOTAL | | System - | | | | | (MMOL/L) IN | | [place] | | | | | SER/PLAS | | | | | | + + + + + + + | CARBON | 2020-11-07 | [facility] | 22 | mmol/l | (missing) | | DIOXIDE | 15:53 | Health | | | | | (CO2), TOTAL | | System - | | | | | (MMOL/L) IN | | [place] | | | | | SER/PLAS | | | | | | + + + + + + + | ERYTHROCYTE | 2020-11-07 | [facility] | 29.6 | pg | (missing) | | MEAN | 15:53 | Health | | | | | CORPUSCULAR | | System - | | | | | HEMOGLOBIN | | [place] | | | | | (PG) BY [...] | | | | HEMOGLOBIN | | [place] | | | | | (PG) BY [...] | | | | AUTOMATED | | [place] | | | | | COUNT | | | | | | + + + + + + + | LYMPHOCYTES | 2020-11-07 | [facility] | 3.8 | k/mcl | (missing) | | (10*3/UL) | 15:53 | Health | | | | | IN BLOOD BY | | System - | | | | | AUTOMATED | | [place] | | | | | COUNT | | | | | | + + + + + + + | POTASSIUM | 2020-11-07 | [facility] | 3.8 | mmol/l | (missing) | | (MMOL/L) IN | 15:53 | Health | | | | | SER/PLAS | | System - | | | | | | | [place] | | | | + + + + + + + | POTASSIUM | 2020-11-07 | [facility] | 3.8 | mmol/l | (missing) | | (MMOL/L) IN | 15:53 | Health | | | | | SER/PLAS | | System - | | | | | | | [place] | | | | + + + + + + + | | 2020-11-07 | [facility] | 30.0 | % | (missing) | | LYMPHOCYTES/ | 15:53 | Health | | | | | 100 | | System - | | | | | LEUKOCYTES | | [place] | | | | | IN BLOOD [...] | | | | LEUKOCYTES | | [place] | | | | | IN BLOOD [...] | | | | HEMOGLOBIN | | [place] | | | | | CONCENTRATIO | [...] | | | | HEMOGLOBIN | | [place] | | | | | CONCENTRATIO | [...] | | | | AUTOMATED | | [place] | | | | | COUNT | | | | | | + + + + + + + | PLATELETS | 2020-11-07 | [facility] | 340 | k/mcl | (missing) | | (10*3/UL) IN | 15:53 | Health | | | | | BLOOD | | System - | | | | | AUTOMATED | | [place] | | | | | COUNT | | | | | | + + + + + + + | ALBUMIN | 2020-11-07 | [facility] | 4.0 | g/dl | (missing) | | (G/DL) IN | 15:53 | Health | | | | | SER/PLAS | | System - | | | | | | | [place] | | | | + + + + + + + | ALBUMIN | 2020-11-07 | [facility] | 4.0 | g/dl | (missing) | | (G/DL) IN | 15:53 | Health | | | | | SER/PLAS | | System - | | | | | | | [place] | | | | + + + + + + + | | 2020-11-07 | [facility] | 4.77 | m/mcl | (missing) | | ERYTHROCYTES | 15:53 | Health | | | | | (10*6/UL) | | System - | | | | | IN BLOOD BY | | [place] | | | | | AUTOMATED | [...] | | IN BLOOD BY | | [place] | | | | | AUTOMATED | [...] | | | | AUTOMATED | | [place] | | | | | COUNT | | | | | | + + + + + + + | HEMATOCRIT | 2020-11-07 | [facility] | 42.2 | % | (missing) | | (%) IN BLOOD | 15:53 | Health | | | | | BY | | System - | | | | | AUTOMATED | | [place] | | | | | COUNT | | | | | | + + + + + + + | | 2020-11-07 | [facility] | 5.4 | % | (missing) | | MONOCYTES/10 | 15:53 | Health | | | | | 0 LEUKOCYTES | | System - | | | | | IN BLOOD BY | | [place] | | | | | AUTOMATED | [...] | | IN BLOOD BY | | [place] | | | | | AUTOMATED | [...] | | | | | | | [place] | | | | + + + + + + + | PROTEIN | 2020-11-07 | [facility] | 6.3 | g/dl | (missing) | | (G/DL) IN | 15:53 | Health | | | | | SER/PLAS | | System - | | | | | | | [place] | | | | + + + + + + + | | 2020-11-07 | [facility] | 61.8 | % | (missing) | | NEUTROPHILS/ | 15:53 | Health | | | | | 100 | | System - | | | | | LEUKOCYTES | | [place] | | | | | IN BLOOD [...] | | | | LEUKOCYTES | | [place] | | | | | IN BLOOD [...] | | | | SER/PLAS | | [place] | | | | + + + + + + + | ALKALINE | 2020-11-07 | [facility] | 68 | u/l | (missing) | | PHOSPHATASE | 15:53 | Health | | | | | (U/L) IN | | System - | | | | | SER/PLAS | | [place] | | | | + + + + + + + | NEUTROPHILS | 2020-11-07 | [facility] | 7.8 | k/mcl | (missing) | | (10*3/UL) | 15:53 | Health | | | | | IN BLOOD BY | | System - | | | | | AUTOMATED | | [place] | | | | | COUNT | | | | | | + + + + + + + | NEUTROPHILS | 2020-11-07 | [facility] | 7.8 | k/mcl | (missing) | | (10*3/UL) | 15:53 | Health | | | | | IN BLOOD BY | | System - | | | | | AUTOMATED | | [place] | | | | | COUNT | | | | | | + + + + + + + | CALCIUM | 2020-11-07 | [facility] | 8.7 | mg/dl | (missing) | | (MG/DL) IN | 15:53 | Health | | | | | SER/PLAS | | System - | | | | | | | [place] | | | | + + + + + + + | CALCIUM | 2020-11-07 | [facility] | 8.7 | mg/dl | (missing) | | (MG/DL) IN | 15:53 | Health | | | | | SER/PLAS | | System - | | | | | | | [place] | | | | + + + + + + + | ERYTHROCYTE | 2020-11-07 | [facility] | 88.5 | fl | (missing) | | MEAN | 15:53 | Health | | | | | CORPUSCULAR | | System - | | | | | VOLUME (FL) | | [place] | | | | | BY AUTOMATED [...] | | | VOLUME (FL) | | [place] | | | | | BY AUTOMATED [...] | | | | | | | [place] | | | | + + + + + + + | ANION GAP | 2020-11-07 | [facility] | 9.0 | mmol/l | (missing) | | IN SER/PLAS | 15:53 | Health | | | | | | | System - | | | | | | | [place] | | | | + + + + + + + | PLATELET | 2020-11-07 | [facility] | 9.8 | fl | (missing) | | MEAN VOLUME | 15:53 | Health | | | | | (FL) IN | | System - | | | | | BLOOD BY | | [place] | | | | | AUTOMATED | [...] | | | BLOOD BY | | [place] | | | | | AUTOMATED | [...] | | | | SER/PLAS | | [place] | | | | + + + + + + + | GLUCOSE, | 2020-11-07 | [facility] | 94 | mg/dl | (missing) | | RANDOM | 15:53 | Health | | | | | (MG/DL) IN | | System - | | | | | SER/PLAS | | [place] | | | | + + + + + + + | | 2020-11-07 | [facility] | Negative | (missing) | (missing) | | BARBITURATES | 15:53 | Health | | | | | PRESENCE IN | | System - | | | | | URINE BY | | [place] | | | | | SCREEN | [...] | | | | (PRESENCE) | | [place] | | | | | IN URINE [...] | | | | SCREEN | | [place] | | | | | METHOD | | | | | | + + + + + + + | METHADONE | 2020-11-07 | [facility] | Negative | (missing) | (missing) | | (PRESENCE) | 15:53 | Health | | | | | IN URINE BY | | System - | | | | | SCREEN | | [place] | | | | | METHOD | | | | | | + + + + + + + | OPIATES | 2020-11-07 | [facility] | Negative | (missing) | (missing) | | (PRESENCE) | 15:53 | Health | | | | | IN URINE BY | | System - | | | | | SCREEN | | [place] | | | | | METHOD | | | | | | + + + + + + + | OXYCODONE | 2020-11-07 | [facility] | Negative | (missing) | (missing) | | (PRESENCE) | 15:53 | Health | | | | | IN URINE BY | | System - | | | | | SCREEN | | [place] | | | | | METHOD | | | | | | + + + + + + + | | 2020-11-07 | [facility] | Negative | (missing) | (missing) | | PHENCYCLIDIN | 15:53 | Health | | | | | E ([facility]) | | System - | | | | | IN URINE BY | | [place] | | | | | SCREEN | [...] | | | | (PRESENCE) | | [place] | | | | | IN URINE | | | | | | + + + + + + + | | 2020-11-07 | [facility] | Negative | (missing) | (missing) | | PHENCYCLIDIN | 15:53 | Health | | | | | E ([facility]) | | System - | | | | | IN URINE BY | | [place] | | | | | SCREEN | [...] | | | | SCREEN | | [place] | | | | | METHOD | | | | | | + + + + + + + | TRICYCLIC | 2020-11-07 | [facility] | Negative | (missing) | (missing) | | ANTIDEPRESSA | 15:53 | Health | | | | | NTS | | System - | | | | | (PRESENCE) | | [place] | | | | | IN URINE | | | | | | + + + + + + + | OXYCODONE | 2020-11-07 | [facility] | Negative | (missing) | (missing) | | (PRESENCE) | 15:53 | Health | | | | | IN URINE BY | | System - | | | | | SCREEN | | [place] | | | | | METHOD | | | | | | + + + + + + + | COCAINE | 2020-11-07 | [facility] | Negative | (missing) | (missing) | | (PRESENCE) | 15:53 | Health | | | | | IN URINE BY | | System - | | | | | SCREEN | | [place] | | | | | METHOD | | | | | | + + + + + + + | | 2020-11-07 | [facility] | Negative | (missing) | (missing) | | BARBITURATES | 15:53 | Health | | | | | PRESENCE IN | | System - | | | | | URINE BY | | [place] | | | | | SCREEN | [...] | | | | (PRESENCE) | | [place] | | | | | IN URINE [...] | | | | SCREEN | | [place] | | | | | METHOD | | | | | | + + + + + + + | | 2020-11-07 | [facility] | Presumptive | (missing) | (missing) | | METHAMPHETAM | 15:53 | Health | Positive | | | | INE | | System - | | | | | (PRESENCE) | | [place] | | | | | IN URINE [...] | | | BY SCREEN | | [place] | | | | | METHOD | | | | | | + + + + + + + | THC | 2020-11-07 | [facility] | Presumptive | (missing) | (missing) | | (CANNABINOID | 15:53 | Health | Positive | | | | ) IN URINE | | System - | | | | | BY SCREEN | | [place] | | | | | METHOD | | | | | | + + + + + + + | AMPHETAMINE | 2020-11-07 | [facility] | Presumptive | (missing) | (missing) | | (PRESENCE) | 15:53 | Health | Positive | | | | IN URINE BY | | System - | | | | | SCREEN | | [place] | | | | | METHOD | | | | | | + + + + + + + | | 2020-11-07 | [facility] | Presumptive | (missing) | (missing) | | METHAMPHETAM | 15:53 | Health | Positive | | | | INE | | System - | | | | | (PRESENCE) | | [place] | | | | | IN URINE [...] | | | | SCREEN | | [place] | | | | | METHOD | [...] | | | | | | | [place] | | | | + + + + + + + | POCT | 2020-11-07 | [facility] | Negative | (missing) | (missing) | | | 17:09 | Health | | | | | TEST URINE | | System - | | | | | | | [place] | | | | + + + [...] | | | | | | | [place] | | | | + + + + + + + | ALCOHOL | 2020-11-10 | [facility] | < | g/dl | (missing) | | (G/DL) IN | 17 | Health | | | | | SER/PLAS | | System - | | | | | | | [place] | | | | + + + + + + + | | 2020-11-10 | [facility] | < | mcg/ml | (missing) | | ACETAMINOPHE | | Health | | | | | N (UG/ML) IN | | System - | | | | | SER/PLAS | | [place] | | | | + + + + + + + | | 2020-11-10 | [facility] | < | mcg/ml | (missing) | | ACETAMINOPHE | 17:17 | Health | | | | | N (UG/ML) IN | | System - | | | | | SER/PLAS | | [place] | | | | + + + + + + + | SALICYLATE | 2020-11-10 | [facility] | < | mg/dl | (missing) | | (MG/DL) IN | | Health | | | | | SER/PLAS | | System - | | | | | | | [place] | | | | + + + + + + + | SALICYLATE | 2020-11-10 | [facility] | < | mg/dl | (missing) | | (MG/DL) IN | | Health | | | | | SER/PLAS | | System - | | | | | | | [place] | | | | + + + + + + + | | 2020-11-10 | [facility] | 0.2-1.0 | mg/dl | (missing) | | UROBILINOGEN | | Health | | | | | (MG/DL) IN | | System - | | | | | URINE BY | | [place] | | | | | TEST STRIP | | | | | | + + + + + + + | | 2020-11-10 | [facility] | 0.2-1.0 | mg/dl | (missing) | | UROBILINOGEN | 17:17 | Health | | | | | (MG/DL) IN | | System - | | | | | URINE BY | | [place] | | | | | TEST STRIP | | | | | | + + + + + + + | SPECIFIC | 2020-11-10 | [facility] | 1.017 | (missing) | (missing) | | GRAVITY OF | 17:17 | Health | | | | | URINE BY | | System - | | | | | AUTOMATED | | [place] | | | | | TEST STRIP | | | | | | + + + + + + + | SPECIFIC | 2020-11-10 | [facility] | 1.017 | (missing) | (missing) | | GRAVITY OF | 17:17 | Health | | | | | URINE BY | | System - | | | | | AUTOMATED | | [place] | | | | | TEST STRIP | | | | | | + + + + + + + | HEMOGLOBIN | 2020-11-10 | [facility] | 2 | (missing) | (missing) | | PRESENCE IN | 17:17 | Health | | | | | URINE | | System - | | | | | | | [place] | | | | + + + + + + + | HEMOGLOBIN | 2020-11-10 | [facility] | 2 | (missing) | (missing) | | PRESENCE IN | 17:17 | Health | | | | | URINE | | System - | | | | | | | [place] | | | | + + + + + + + | WBC | 2020-11-10 | [facility] | 2 | /hpf | (missing) | | (LEUKOCYTE) | 17:17 | Health | | | | | (#/HPF) IN | | System - | | | | | URINE | | [place] | | | | | SEDIMENT | | | | | | + + + + + + + | WBC | 2020-11-10 | [facility] | 2 | /hpf | (missing) | | (LEUKOCYTE) | 17:17 | Health | | | | | (#/HPF) IN | | System - | | | | | URINE | | [place] | | | | | SEDIMENT | | | | | | + + + + + + + | RBC (#/HPF) | 2020-11-10 | [facility] | 3 | /hpf | (missing) | | IN URINE | 17:17 | Health | | | | | SEDIMENT | | System - | | | | | | | [place] | | | | + + + + + + + | RBC (#/HPF) | 2020-11-10 | [facility] | 3 | /hpf | (missing) | | IN URINE | 17:17 | Health | | | | | SEDIMENT | | System - | | | | | | | [place] | | | | + + + + + + + | SQUAMOUS | 2020-11-10 | [facility] | 4 | /hpf | (missing) | | EPITHELIAL | 17:17 | Health | | | | | CELLS | | System - | | | | | (#/HPF) IN | | [place] | | | | | URINE | [...] | | | (#/HPF) IN | | [place] | | | | | URINE | [...] | | | | | | | [place] | | | | + + + + + + + | PH OF URINE | 2020-11-10 | [facility] | 7.0 | (missing) | (missing) | | | 17:17 | Health | | | | | | | System - | | | | | | | [place] | | | | + + + + + + + | CLARITY OF | 2020-11-10 | [facility] | Hazy | (missing) | (missing) | | URINE | 17:17 | Health | | | | | | | System - | | | | | | | [place] | | | | + + + + + + + | CLARITY OF | 2020-11-10 | [facility] | Hazy | (missing) | (missing) | | URINE | 17:17 | Health | | | | | | | System - | | | | | | | [place] | | | | + + + + + + + | ASA | 2020-11-10 | [facility] | Negative | (missing) | (missing) | | (ASCORBIC | 17:17 | Health | | | | | ACID) IN | | System - | | | | | URINE | | [place] | | | | + + + + + + + | | 2020-11-10 | [facility] | Negative | (missing) | (missing) | | BARBITURATES | 17:17 | Health | | | | | PRESENCE IN | | System - | | | | | URINE BY | | [place] | | | | | SCREEN | [...] | | | | (PRESENCE) | | [place] | | | | | IN URINE [...] | | | | URINE | | [place] | | | | + + + + + + + | COCAINE | 2020-11-10 | [facility] | Negative | (missing) | (missing) | | (PRESENCE) | 17:17 | Health | | | | | IN URINE BY | | System - | | | | | SCREEN | | [place] | | | | | METHOD | | | | | | + + + + + + + | GLUCOSE IN | 2020-11-10 | [facility] | Negative | (missing) | (missing) | | URINE | 17:17 | Health | | | | | | | System - | | | | | | | [place] | | | | + + + + + + + | KETONES IN | 2020-11-10 | [facility] | Negative | (missing) | (missing) | | URINE | 17:17 | Health | | | | | | | System - | | | | | | | [place] | | | | + + + + + + + | LEUKOCYTE | 2020-11-10 | [facility] | Negative | (missing) | (missing) | | ESTERASE | 17:17 | Health | | | | | PRESENCE IN | | System - | | | | | URINE BY | | [place] | | | | | TEST STRIP | | | | | | + + + + + + + | METHADONE | 2020-11-10 | [facility] | Negative | (missing) | (missing) | | (PRESENCE) | 17:17 | Health | | | | | IN URINE BY | | System - | | | | | SCREEN | | [place] | | | | | METHOD | | | | | | + + + + + + + | | 2020-11-10 | [facility] | Negative | (missing) | (missing) | | METHAMPHETAM | 17:17 | Health | | | | | INE | | System - | | | | | (PRESENCE) | | [place] | | | | | IN URINE [...] | | | | | | | [place] | | | | + + + + + + + | OXYCODONE | 2020-11-10 | [facility] | Negative | (missing) | (missing) | | (PRESENCE) | 17:17 | Health | | | | | IN URINE BY | | System - | | | | | SCREEN | | [place] | | | | | METHOD | | | | | | + + + + + + + | | 2020-11-10 | [facility] | Negative | (missing) | (missing) | | PHENCYCLIDIN | 17:17 | Health | | | | | E ([facility]) | | System - | | | | | IN URINE BY | | [place] | | | | | SCREEN | [...] | | | | | | | [place] | | | | + + + + + + + | THC | 2020-11-10 | [facility] | Negative | (missing) | (missing) | | (CANNABINOID | 17:17 | Health | | | | | ) IN URINE | | System - | | | | | BY SCREEN | | [place] | | | | | METHOD | | | | | | + + + + + + + | TRICYCLIC | 2020-11-10 | [facility] | Negative | (missing) | (missing) | | ANTIDEPRESSA | 17:17 | Health | | | | | NTS | | System - | | | | | (PRESENCE) | | [place] | | | | | IN URINE | | | | | | + + + + + + + | | 2020-11-10 | [facility] | Negative | (missing) | (missing) | | PHENCYCLIDIN | 17:17 | Health | | | | | E ([facility]) | | System - | | | | | IN URINE BY | | [place] | | | | | SCREEN | [...] | | | BY SCREEN | | [place] | | | | | METHOD | | | | | | + + + + + + + | ASA | 2020-11-10 | [facility] | Negative | (missing) | (missing) | | (ASCORBIC | 17:17 | Health | | | | | ACID) IN | | System - | | | | | URINE | | [place] | | | | + + + + + + + | TRICYCLIC | 2020-11-10 | [facility] | Negative | (missing) | (missing) | | ANTIDEPRESSA | :17 | Health | | | | | NTS | | System - | | | | | (PRESENCE) | | [place] | | | | | IN URINE | | | | | | + + + + + + + | AMPHETAMINE | 2020-11-10 | [facility] | Negative | (missing) | (missing) | | (PRESENCE) | 17:17 | Health | | | | | IN URINE BY | | System - | | | | | SCREEN | | [place] | | | | | METHOD | | | | | | + + + + + + + | | 2020-11-10 | [facility] | Negative | (missing) | (missing) | | METHAMPHETAM | 17:17 | Health | | | | | INE | | System - | | | | | ([facility]ENCE) | | [place] | | | | | IN URINE [...] | | | | SCREEN | | [place] | | | | | METHOD | | | | | | + + + + + + + | BILIRUBIN, | 2020-11-10 | [facility] | Negative | (missing) | (missing) | | TOTAL | 17:17 | Health | | | | | PRESENCE IN | | System - | | | | | URINE | | [place] | | | | + + + + + + + | GLUCOSE IN | 2020-11-10 | [facility] | Negative | (missing) | (missing) | | URINE | 17:17 | Health | | | | | | | System - | | | | | | | [place] | | | | + + + + + + + | COCAINE | 2020-11-10 | [facility] | Negative | (missing) | (missing) | | (PRESENCE) | 17:17 | Health | | | | | IN URINE BY | | System - | | | | | SCREEN | | [place] | | | | | METHOD | | | | | | + + + + + + + | NITRITE | 2020-11-10 | [facility] | Negative | (missing) | (missing) | | PRESENCE IN | 17:17 | Health | | | | | URINE | | System - | | | | | | | [place] | | | | + + + + + + + | KETONES IN | 2020-11-10 | [facility] | Negative | (missing) | (missing) | | URINE | 17:17 | Health | | | | | | | System - | | | | | | | [place] | | | | + + + + + + + | PROTEIN IN | 2020-11-10 | [facility] | Negative | (missing) | (missing) | | URINE BY | 17:17 | Health | | | | | TEST STRIP | | System - | | | | | | | [place] | | | | + + + + + + + | | 2020-11-10 | [facility] | Negative | (missing) | (missing) | | BARBITURATES | 17:17 | Health | | | | | PRESENCE IN | | System - | | | | | URINE BY | | [place] | | | | | SCREEN | [...] | | | | (PRESENCE) | | [place] | | | | | IN URINE [...] | | | | SCREEN | | [place] | | | | | METHOD | | | | | | + + + + + + + | LEUKOCYTE | 2020-11-10 | [facility] | Negative | (missing) | (missing) | | ESTERASE | 17:17 | Health | | | | | PRESENCE IN | | System - | | | | | URINE BY | | [place] | | | | | TEST STRIP | | | | | | + + + + + + + | AMPHETAMINE | 2020-11-10 | [facility] | Negative | (missing) | (missing) | | (PRESENCE) | 17:17 | Health | | | | | IN URINE BY | | System - | | | | | SCREEN | | [place] | | | | | METHOD | | | | | | + + + + + + + | OPIATES | 2020-11-10 | [facility] | Presumptive | (missing) | (missing) | | (PRESENCE) | 17:17 | Health | Positive | | | | IN URINE BY | | System - | | | | | SCREEN | | [place] | | | | | METHOD | | | | | | + + + + + + + | OPIATES | 2020-11-10 | [facility] | Presumptive | (missing) | (missing) | | (PRESENCE) | 17:17 | Health | Positive | | | | IN URINE BY | | System - | | | | | SCREEN | | [place] | | | | | METHOD | | | | | | + + + + + + + | MUCUS | 2020-11-10 | [facility] | Trace | (missing) | (missing) | | (#/HPF) IN | 17:17 | Health | | | | | URINE | | System - | | | | | SEDIMENT | | [place] | | | | + + + + + + + | MUCUS | 2020-11-10 | [facility] | Trace | (missing) | (missing) | | (#/HPF) IN | 17:17 | Health | | | | | URINE | | System - | | | | | SEDIMENT | | [place] | | | | + + + + + + + | BACTERIA | 2020-11-10 | [facility] | Trace | /hpf | (missing) | | (#/HPF) IN | 17:17 | Health | | | | | URINE | | System - | | | | | | | [place] | | | | + + + + + + + | BACTERIA | 2020-11-10 | [facility] | Trace | /hpf | (missing) | | (#/HPF) IN | 17:17 | Health | | | | | URINE | | System - | | | | | | | [place] | | | | + + + + + + + | COLOR OF | 2020-11-10 | [facility] | Yellow | (missing) | (missing) | | URINE | 17:17 | Health | | | | | | | System - | | | | | | | [place] | | | | + + + + + + + | COLOR OF | 2020-11-10 | [facility] | Yellow | (missing) | (missing) | | URINE | :17 | Health | | | | | | | System - | | | | | | | [place] | | | | + + + [...] | | | | SER/PLAS | | [place] | | | | + + + + + + + | BHCG QUAL | 2020-11-10 | [facility] | Negative | (missing) | (missing) | | (CHORIOGONAD | 17:18 | Health | | | | | OTROPIN) IN | | System - | | | | | SER/PLAS | | [place] | | | | + + + [...] ? | | | RATE) | | [place] | | | | | ML/MIN/1.73 | [...] ? | | | RATE) | | [place] | | | | | ML/MIN/1.73 | [...] | | | | | | | [place] | | | | + + + + + + + | ALCOHOL | 2020-11-28 | [facility] | < | g/dl | (missing) | | (G/DL) IN | 12:31 | Health | | | | | SER/PLAS | | System - | | | | | | | [place] | | | | + + + + + + + | | 2020-11-28 | [facility] | < | mcg/ml | (missing) | | ACETAMINOPHE | 12: | Health | | | | | N (UG/ML) IN | | System - | | | | | SER/PLAS | | [place] | | | | + + + + + + + | | 2020-11-28 | [facility] | < | mcg/ml | (missing) | | ACETAMINOPHE | 12:31 | Health | | | | | N (UG/ML) IN | | System - | | | | | SER/PLAS | | [place] | | | | + + + + + + + | SALICYLATE | 2020-11-28 | [facility] | < | mg/dl | (missing) | | (MG/DL) IN | 31 | Health | | | | | SER/PLAS | | System - | | | | | | | [place] | | | | + + + + + + + | SALICYLATE | 2020-11-28 | [facility] | < | mg/dl | (missing) | | (MG/DL) IN | 31 | Health | | | | | SER/PLAS | | System - | | | | | | | [place] | | | | + + + + + + + | NRBC/100 | 2020-11-28 | [facility] | 0.0 | % | (missing) | | WBCS BY | 12:31 | Health | | | | | AUTOMATED | | System - | | | | | COUNT | | [place] | | | | + + + + + + + | NRBC/100 | 2020-11-28 | [facility] | 0.0 | % | (missing) | | WBCS BY | : | Health | | | | | AUTOMATED | | System - | | | | | COUNT | | [place] | | | | + + + + + + + | BASOPHILS | 2020-11-28 | [facility] | 0.0 | k/mcl | (missing) | | (10*3/UL) IN | 12:31 | Health | | | | | BLOOD BY | | System - | | | | | AUTOMATED | | [place] | | | | | COUNT | | | | | | + + + + + + + | | 2020-11-28 | [facility] | 0.0 | k/mcl | (missing) | | NRBC(10*3/UL | 12:31 | Health | | | | | ) IN BLOOD | | System - | | | | | BY AUTOMATED | | [place] | | | | | COUNT | | | | | | + + + + + + + | BASOPHILS | 2020-11-28 | [facility] | 0.0 | k/mcl | (missing) | | (10*3/UL) IN | 12:31 | Health | | | | | BLOOD BY | | System - | | | | | AUTOMATED | | [place] | | | | | COUNT | | | | | | + + + + + + + | | 2020-11-28 | [facility] | 0.0 | k/mcl | (missing) | | NRBC(10*3/UL | 12:31 | Health | | | | | ) IN BLOOD | | System - | | | | | BY AUTOMATED | | [place] | | | | | COUNT | | | | | | + + + + + + + | IMMATURE | 2020-11-28 | [facility] | 0.06 | k/mcl | (missing) | | GRANULOCYTE | 12:31 | Health | | | | | (ABS) | | System - | | | | | | | [place] | | | | + + + + + + + | IMMATURE | 2020-11-28 | [facility] | 0.06 | k/mcl | (missing) | | GRANULOCYTE | 12:31 | Health | | | | | (ABS) | | System - | | | | | | | [place] | | | | + + + + + + + | EOSINOPHILS | 2020-11-28 | [facility] | 0.2 | k/mcl | (missing) | | (10*3/UL) | 12:31 | Health | | | | | IN BLOOD BY | | System - | | | | | AUTOMATED | | [place] | | | | | COUNT | | | | | | + + + + + + + | EOSINOPHILS | 2020-11-28 | [facility] | 0.2 | k/mcl | (missing) | | (10*3/UL) | 12:31 | Health | | | | | IN BLOOD BY | | System - | | | | | AUTOMATED | | [place] | | | | | COUNT | | | | | | + + + + + + + | | 2020-11-28 | [facility] | 0.4 | % | (missing) | | BASOPHILS/10 | 12:31 | Health | | | | | 0 LEUKOCYTES | | System - | | | | | IN BLOOD BY | | [place] | | | | | AUTOMATED | [...] | | IN BLOOD BY | | [place] | | | | | AUTOMATED | [...] | | | | AUTOMATED | | [place] | | | | | COUNT | | | | | | + + + + + + + | MONOCYTES | 2020-11-28 | [facility] | 0.4 | k/mcl | (missing) | | (10*3/UL) IN | 12:31 | Health | | | | | BLOOD BY | | System - | | | | | AUTOMATED | | [place] | | | | | COUNT | | | | | | + + + + + + + | BILIRUBIN | 2020-11-28 | [facility] | 0.4 | mg/dl | (missing) | | TOTAL | 12:31 | Health | | | | | (MG/DL) IN | | System - | | | | | SER/PLAS | | [place] | | | | + + + + + + + | BILIRUBIN | 2020-11-28 | [facility] | 0.4 | mg/dl | (missing) | | TOTAL | 12:31 | Health | | | | | (MG/DL) IN | | System - | | | | | SER/PLAS | | [place] | | | | + + + + + + + | IMMATURE | 2020-11-28 | [facility] | 0.7 | % | (missing) | | GRANULOCYTE | | Health | | | | | % (AUTO) | | System - | | | | | | | [place] | | | | + + + + + + + | IMMATURE | 2020-11-28 | [facility] | 0.7 | % | (missing) | | GRANULOCYTE | | Health | | | | | % (AUTO) | | System - | | | | | | | [place] | | | | + + + + + + + | CREATININE | 2020-11-28 | [facility] | 0.7 | mg/dl | (missing) | | (MG/DL) IN | | Health | | | | | SER/PLAS | | System - | | | | | | | [place] | | | | + + + + + + + | CREATININE | 2020-11-28 | [facility] | 0.7 | mg/dl | (missing) | | (MG/DL) IN | 12:31 | Health | | | | | SER/PLAS | | System - | | | | | | | [place] | | | | + + + + + + + | | 2020-11-28 | [facility] | 1.79 | :1 | (missing) | | ALBUMIN/GLOB | 12:31 | Health | | | | | ULIN (A/G | | System - | | | | | RATIO) IN | | [place] | | | | | SER/PLAS | | | | | | + + + + + + + | | 2020-11-28 | [facility] | 1.79 | :1 | (missing) | | ALBUMIN/GLOB | 12:31 | Health | | | | | ULIN (A/G | | System - | | | | | RATIO) IN | | [place] | | | | | SER/PLAS | | | | | | + + + + + + + | ANION GAP | 2020-11-28 | [facility] | 10.0 | mmol/l | (missing) | | IN SER/PLAS | 12:31 | Health | | | | | | | System - | | | | | | | [place] | | | | + + + + + + + | ANION GAP | 2020-11-28 | [facility] | 10.0 | mmol/l | (missing) | | IN SER/PLAS | 12:31 | Health | | | | | | | System - | | | | | | | [place] | | | | + + + + + + + | CHLORIDE | 2020-11-28 | [facility] | 104 | mmol/l | (missing) | | (MMOL/L) IN | 12:31 | Health | | | | | SER/PLAS | | System - | | | | | | | [place] | | | | + + + + + + + | CHLORIDE | 2020-11-28 | [facility] | 104 | mmol/l | (missing) | | (MMOL/L) IN | 12:31 | Health | | | | | SER/PLAS | | System - | | | | | | | [place] | | | | + + + + + + + | ERYTHROCYTE | 2020-11-28 | [facility] | 13.2 | % | (missing) | | | 12 | Health | | | | | DISTRIBUTION | | System - | | | | | WIDTH | | [place] | | | | | (RATIO) BY [...] | | | | WIDTH | | [place] | | | | | (RATIO) BY [...] | | | | | | | [place] | | | | + + + + + + + | SODIUM | 2020-11-28 | [facility] | 138 | mmol/l | (missing) | | (MMOL/L) IN | 12:31 | Health | | | | | SER/PLAS | | System - | | | | | | | [place] | | | | + + + + + + + | HEMOGLOBIN | 2020-11-28 | [facility] | 14.3 | g/dl | (missing) | | (G/DL) IN | 12:31 | Health | | | | | BLOOD | | System - | | | | | | | [place] | | | | + + + + + + + | HEMOGLOBIN | 2020-11-28 | [facility] | 14.3 | g/dl | (missing) | | (G/DL) IN | 12:31 | Health | | | | | BLOOD | | System - | | | | | | | [place] | | | | + + + + + + + | | 2020-11-28 | [facility] | 2.2 | % | (missing) | | EOSINOPHILS/ | 12:31 | Health | | | | | 100 | | System - | | | | | LEUKOCYTES | | [place] | | | | | IN BLOOD [...] | | | | LEUKOCYTES | | [place] | | | | | IN BLOOD [...] | | | | | | | [place] | | | | + + + + + + + | GLOBULIN | 2020-11-28 | [facility] | 2.4 | g/dl | (missing) | | (G/DL) IN | 12:31 | Health | | | | | SER/PLAS | | System - | | | | | | | [place] | | | | + + + + + + + | LYMPHOCYTES | 2020-11-28 | [facility] | 2.7 | k/mcl | (missing) | | (10*3/UL) | 12:31 | Health | | | | | IN BLOOD BY | | System - | | | | | AUTOMATED | | [place] | | | | | COUNT | | | | | | + + + + + + + | LYMPHOCYTES | 2020-11-28 | [facility] | 2.7 | k/mcl | (missing) | | (10*3/UL) | 12:31 | Health | | | | | IN BLOOD BY | | System - | | | | | AUTOMATED | | [place] | | | | | COUNT | | | | | | + + + + + + + | CARBON | 2020-11-28 | [facility] | 24 | mmol/l | (missing) | | DIOXIDE | 12:31 | Health | | | | | (CO2), TOTAL | | System - | | | | | (MMOL/L) IN | | [place] | | | | | SER/PLAS | | | | | | + + + + + + + | CARBON | 2020-11-28 | [facility] | 24 | mmol/l | (missing) | | DIOXIDE | 12:31 | Health | | | | | (CO2), TOTAL | | System - | | | | | (MMOL/L) IN | | [place] | | | | | SER/PLAS | | | | | | + + + + + + + | ASPARTATE | 2020-11-28 | [facility] | 26 | u/l | (missing) | | AMINOTRANSFE | 12:31 | Health | | | | | RASE (SGOT) | | System - | | | | | (U/L) IN | | [place] | | | | | SER/PLAS | | | | | | + + + + + + + | ASPARTATE | 2020-11-28 | [facility] | 26 | u/l | (missing) | | AMINOTRANSFE | 12:31 | Health | | | | | RASE (SGOT) | | System - | | | | | (U/L) IN | | [place] | | | | | SER/PLAS | | | | | | + + + + + + + | ALANINE | 2020-11-28 | [facility] | 27 | u/l | (missing) | | AMINOTRANSFE | 12:31 | Health | | | | | RASE (SGPT) | | System - | | | | | (U/L) IN | | [place] | | | | | SER/PLAS | | | | | | + + + + + + + | ALANINE | 2020-11-28 | [facility] | 27 | u/l | (missing) | | AMINOTRANSFE | 12:31 | Health | | | | | RASE (SGPT) | | System - | | | | | (U/L) IN | | [place] | | | | | SER/PLAS | | | | | | + + + + + + + | POTASSIUM | 2020-11-28 | [facility] | 3.8 | mmol/l | (missing) | | (MMOL/L) IN | 12:31 | Health | | | | | SER/PLAS | | System - | | | | | | | [place] | | | | + + + + + + + | POTASSIUM | 2020-11-28 | [facility] | 3.8 | mmol/l | (missing) | | (MMOL/L) IN | 12:31 | Health | | | | | SER/PLAS | | System - | | | | | | | [place] | | | | + + + + + + + | | 2020-11-28 | [facility] | 30.2 | % | (missing) | | LYMPHOCYTES/ | 12:31 | Health | | | | | 100 | | System - | | | | | LEUKOCYTES | | [place] | | | | | IN BLOOD [...] | | | | LEUKOCYTES | | [place] | | | | | IN BLOOD [...] | | | | HEMOGLOBIN | | [place] | | | | | (PG) BY [...] | | | | HEMOGLOBIN | | [place] | | | | | (PG) BY [...] | | | | AUTOMATED | | [place] | | | | | COUNT | | | | | | + + + + + + + | PLATELETS | 2020-11-28 | [facility] | 317 | k/mcl | (missing) | | (10*3/UL) IN | 12:31 | Health | | | | | BLOOD | | System - | | | | | AUTOMATED | | [place] | | | | | COUNT | | | | | | + + + + + + + | ERYTHROCYTE | 2020-11-28 | [facility] | 33.2 | g/dl | (missing) | | MEAN | 12:31 | Health | | | | | CORPUSCULAR | | System - | | | | | HEMOGLOBIN | | [place] | | | | | CONCENTRATIO | [...] | | | | HEMOGLOBIN | | [place] | | | | | CONCENTRATIO | [...] | | | | | | | [place] | | | | + + + + + + + | ALBUMIN | 2020-11-28 | [facility] | 4.3 | g/dl | (missing) | | (G/DL) IN | 12:31 | Health | | | | | SER/PLAS | | System - | | | | | | | [place] | | | | + + + + + + + | | 2020-11-28 | [facility] | 4.73 | m/mcl | (missing) | | ERYTHROCYTES | 12:31 | Health | | | | | (10*6/UL) | | System - | | | | | IN BLOOD BY | | [place] | | | | | AUTOMATED | [...] | | IN BLOOD BY | | [place] | | | | | AUTOMATED | [...] | | IN BLOOD BY | | [place] | | | | | AUTOMATED | [...] | | IN BLOOD BY | | [place] | | | | | AUTOMATED | [...] | | | | AUTOMATED | | [place] | | | | | COUNT | | | | | | + + + + + + + | HEMATOCRIT | 2020-11-28 | [facility] | 43.1 | % | (missing) | | (%) IN BLOOD | 12:31 | Health | | | | | BY | | System - | | | | | AUTOMATED | | [place] | | | | | COUNT | | | | | | + + + + + + + | BLOOD UREA | 2020-11-28 | [facility] | 5 | mg/dl | (missing) | | NITROGEN | 12:31 | Health | | | | | (BUN) | | System - | | | | | (MG/DL) IN | | [place] | | | | | SER/PLAS | | | | | | + + + + + + + | BLOOD UREA | 2020-11-28 | [facility] | 5 | mg/dl | (missing) | | NITROGEN | 12:31 | Health | | | | | (BUN) | | System - | | | | | (MG/DL) IN | | [place] | | | | | SER/PLAS | | | | | | + + + + + + + | NEUTROPHILS | 2020-11-28 | [facility] | 5.6 | k/mcl | (missing) | | (10*3/UL) | 12:31 | Health | | | | | IN BLOOD BY | | System - | | | | | AUTOMATED | | [place] | | | | | COUNT | | | | | | + + + + + + + | NEUTROPHILS | 2020-11-28 | [facility] | 5.6 | k/mcl | (missing) | | (10*3/UL) | 12:31 | Health | | | | | IN BLOOD BY | | System - | | | | | AUTOMATED | | [place] | | | | | COUNT | | | | | | + + + + + + + | PROTEIN | 2020-11-28 | [facility] | 6.7 | g/dl | (missing) | | (G/DL) IN | 12:31 | Health | | | | | SER/PLAS | | System - | | | | | | | [place] | | | | + + + + + + + | PROTEIN | 2020-11-28 | [facility] | 6.7 | g/dl | (missing) | | (G/DL) IN | 12:31 | Health | | | | | SER/PLAS | | System - | | | | | | | [place] | | | | + + + + + + + | | 2020-11-28 | [facility] | 61.6 | % | (missing) | | NEUTROPHILS/ | 12:31 | Health | | | | | 100 | | System - | | | | | LEUKOCYTES | | [place] | | | | | IN BLOOD [...] | | | | LEUKOCYTES | | [place] | | | | | IN BLOOD [...] | | | | | | | [place] | | | | + + + + + + + | CALCIUM | 2020-11-28 | [facility] | 8.9 | mg/dl | (missing) | | (MG/DL) IN | 12:31 | Health | | | | | SER/PLAS | | System - | | | | | | | [place] | | | | + + + + + + + | ALKALINE | 2020-11-28 | [facility] | 81 | u/l | (missing) | | PHOSPHATASE | 12:31 | Health | | | | | (U/L) IN | | System - | | | | | SER/PLAS | | [place] | | | | + + + + + + + | ALKALINE | 2020-11-28 | [facility] | 81 | u/l | (missing) | | PHOSPHATASE | 12:31 | Health | | | | | (U/L) IN | | System - | | | | | SER/PLAS | | [place] | | | | + + + + + + + | | 2020-11-28 | [facility] | 9.1 | k/mcl | (missing) | | LEUKOCYTES(1 | 12:31 | Health | | | | | 0*3/UL) IN | | System - | | | | | BLOOD BY | | [place] | | | | | AUTOMATED | [...] | | | BLOOD BY | | [place] | | | | | AUTOMATED | [...] | | | BLOOD BY | | [place] | | | | | AUTOMATED | [...] | | | BLOOD BY | | [place] | | | | | AUTOMATED | [...] | | | VOLUME (FL) | | [place] | | | | | BY AUTOMATED [...] | | | VOLUME (FL) | | [place] | | | | | BY AUTOMATED [...] | | | | SER/PLAS | | [place] | | | | + + + + + + + | GLUCOSE, | 2020-11-28 | [facility] | 94 | mg/dl | (missing) | | RANDOM | 12:31 | Health | | | | | (MG/DL) IN | | System - | | | | | SER/PLAS | | [place] | | | | + + + + + + + | | 2020-11-28 | [facility] | Negative | (missing) | (missing) | | BARBITURATES | 12:31 | Health | | | | | PRESENCE IN | | System - | | | | | URINE BY | | [place] | | | | | SCREEN | [...] | | | | (PRESENCE) | | [place] | | | | | IN URINE [...] | | | | SCREEN | | [place] | | | | | METHOD | | | | | | + + + + + + + | INFLUENZA A | 2020-11-28 | [facility] | Negative | (missing) | (missing) | | (CEPHEID) | 12:31 | Health | | | | | | | System - | | | | | | | [place] | | | | + + + + + + + | INFLUENZA B | 2020-11-28 | [facility] | Negative | (missing) | (missing) | | (CEPHEID) | 12:31 | Health | | | | | | | System - | | | | | | | [place] | | | | + + + + + + + | METHADONE | 2020-11-28 | [facility] | Negative | (missing) | (missing) | | (PRESENCE) | 12:31 | Health | | | | | IN URINE BY | | System - | | | | | SCREEN | | [place] | | | | | METHOD | | | | | | + + + + + + + | | 2020-11-28 | [facility] | Negative | (missing) | (missing) | | METHAMPHETAM | 12:31 | Health | | | | | INE | | System - | | | | | (PRESENCE) | | [place] | | | | | IN URINE [...] | | | | SCREEN | | [place] | | | | | METHOD | | | | | | + + + + + + + | OXYCODONE | 2020-11-28 | [facility] | Negative | (missing) | (missing) | | (PRESENCE) | 12:31 | Health | | | | | IN URINE BY | | System - | | | | | SCREEN | | [place] | | | | | METHOD | | | | | | + + + + + + + | | 2020-11-28 | [facility] | Negative | (missing) | (missing) | | PHENCYCLIDIN | 12:31 | Health | | | | | E (PRESENCE) | | System - | | | | | IN URINE BY | | [place] | | | | | SCREEN | | | | | | | METHOD | | | | | | + + + + + + + | RSV | 2020-11-28 | [facility] | Negative | (missing) | (missing) | | (CEPHEID) | 12:31 | Health | | | | | | | System - | | | | | | | [place] | | | | + + + + + + + | SARS-COV-2 | 2020-11-28 | [facility] | Negative | (missing) | (missing) | | (COVID19) | 12:31 | Health | | | | | CEPHEID PCR | | System - | | | | | | | [place] | | | | + + + + + + + | TRICYCLIC | 2020-11-28 | [facility] | Negative | (missing) | (missing) | | ANTIDEPRESSA | 12:31 | Health | | | | | NTS | | System - | | | | | (PRESENCE) | | [place] | | | | | IN URINE | | | | | | + + + + + + + | | 2020-11-28 | [facility] | Negative | (missing) | (missing) | | PHENCYCLIDIN | 12:31 | Health | | | | | E (PRESENCE) | | System - | | | | | IN URINE BY | | [place] | | | | | SCREEN | [...] | | | | SCREEN | | [place] | | | | | METHOD | | | | | | + + + + + + + | TRICYCLIC | 2020-11-28 | [facility] | Negative | (missing) | (missing) | | ANTIDEPRESSA | 12:31 | Health | | | | | NTS | | System - | | | | | (PRESENCE) | | [place] | | | | | IN URINE | | | | | | + + + + + + + | AMPHETAMINE | 2020-11-28 | [facility] | Negative | (missing) | (missing) | | (PRESENCE) | 12:31 | Health | | | | | IN URINE BY | | System - | | | | | SCREEN | | [place] | | | | | METHOD | | | | | | + + + + + + + | | 2020-11-28 | [facility] | Negative | (missing) | (missing) | | METHAMPHETAM | 12:31 | Health | | | | | INE | | System - | | | | | (PRESENCE) | | [place] | | | | | IN URINE [...] | | | | SCREEN | | [place] | | | | | METHOD | | | | | | + + + + + + + | [facility]CG QUAL | 2020-11-28 | [facility] | Negative | (missing) | (missing) | | (CHORIOGONAD | 12:31 | Health | | | | | OTROPIN) IN | | System - | | | | | SER/PLAS | | [place] | | | | + + + + + + + | INFLUENZA A | 2020-11-28 | [facility] | Negative | (missing) | (missing) | | (CEPHEID) | 12:31 | Health | | | | | | | System - | | | | | | | [place] | | | | + + + + + + + | COCAINE | 2020-11-28 | [facility] | Negative | (missing) | (missing) | | (PRESENCE) | 12:31 | Health | | | | | IN URINE BY | | System - | | | | | SCREEN | | [place] | | | | | METHOD | | | | | | + + + + + + + | | 2020-11-28 | [facility] | Negative | (missing) | (missing) | | BARBITURATES | 12:31 | Health | | | | | PRESENCE IN | | System - | | | | | URINE BY | | [place] | | | | | SCREEN | [...] | | | | (PRESENCE) | | [place] | | | | | IN URINE [...] | | | | SCREEN | | [place] | | | | | METHOD | | | | | | + + + + + + + | SARS-COV-2 | 2020-11-28 | [facility] | Negative | (missing) | (missing) | | (COVID19) | 12:31 | Health | | | | | CEPHEID PCR | | System - | | | | | | | [place] | | | | + + + + + + + | [facility] QUAL | 2020-11-28 | [facility] | Negative | (missing) | (missing) | | (CHORIOGONAD | 12:31 | Health | | | | | OTROPIN) IN | | System - | | | | | SER/PLAS | | [place] | | | | + + + + + + + | AMPHETAMINE | 2020-11-28 | [facility] | Negative | (missing) | (missing) | | (PRESENCE) | 12:31 | Health | | | | | IN URINE BY | | System - | | | | | SCREEN | | [place] | | | | | METHOD | | | | | | + + + + + + + | THC | 2020-11-28 | [facility] | Presumptive | (missing) | (missing) | | (CANNABINOID | 12:31 | Health | Positive | | | | ) IN URINE | | System - | | | | | BY SCREEN | | [place] | | | | | METHOD | | | | | | + + + + + + + | THC | 2020-11-28 | [facility] | Presumptive | (missing) | (missing) | | (CANNABINOID | 12:31 | Health | Positive | | | | ) IN URINE | | System - | | | | | BY SCREEN | | [place] | | | | | METHOD | [...] | | | IN SER/PLAS | | [place] | | | | + + + +--------+ + + | TSH | 2020-11-28 | [facility] | 2.62 | mciu/ml | (missing) | | (THYROTROPIN | 12:34 | Health | | | | | ) (UIU/ML) | | System - | | | | | IN SER/PLAS | | [place] | | | | + + + [...] | | | URINE BY | | [place] | | | | | SCREEN | [...] | | | | (PRESENCE) | | [place] | | | | | IN URINE [...] | | | | SCREEN | | [place] | | | | | METHOD | | | | | | + + + + + + + | METHADONE | 2021-01-23 | [facility] | Negative | (missing) | (missing) | | (PRESENCE) | 12:09 | Health | | | | | IN URINE BY | | System - | | | | | SCREEN | | [place] | | | | | METHOD | | | | | | + + + + + + + | OPIATES | 2021-01-23 | [facility] | Negative | (missing) | (missing) | | (PRESENCE) | 12:09 | Health | | | | | IN URINE BY | | System - | | | | | SCREEN | | [place] | | | | | METHOD | | | | | | + + + + + + + | OXYCODONE | 2021-01-23 | [facility] | Negative | (missing) | (missing) | | (PRESENCE) | 12:09 | Health | | | | | IN URINE BY | | System - | | | | | SCREEN | | [place] | | | | | METHOD | | | | | | + + + + + + + | | 2021-01-23 | [facility] | Negative | (missing) | (missing) | | PHENCYCLIDIN | 12:09 | Health | | | | | E (PRESENCE) | | System - | | | | | IN URINE BY | | [place] | | | | | SCREEN | [...] | | | | (PRESENCE) | | [place] | | | | | IN URINE | | | | | | + + + + + + + | | 2021-01-23 | [facility] | Negative | (missing) | (missing) | | PHENCYCLIDIN | 12:09 | Health | | | | | E (PRESENCE) | | System - | | | | | IN URINE BY | | [place] | | | | | SCREEN | [...] | | | | SCREEN | | [place] | | | | | METHOD | | | | | | + + + + + + + | TRICYCLIC | 2021-01-23 | [facility] | Negative | (missing) | (missing) | | ANTIDEPRESSA | 12: | Health | | | | | NTS | | System - | | | | | (PRESENCE) | | [place] | | | | | IN URINE | | | | | | + + + + + + + | OXYCODONE | 2021-01-23 | [facility] | Negative | (missing) | (missing) | | (PRESENCE) | 12: | Health | | | | | IN URINE BY | | System - | | | | | SCREEN | | [place] | | | | | METHOD | | | | | | + + + + + + + | COCAINE | 2021-01-23 | [facility] | Negative | (missing) | (missing) | | (PRESENCE) | 12:09 | Health | | | | | IN URINE BY | | System - | | | | | SCREEN | | [place] | | | | | METHOD | | | | | | + + + + + + + | | 2021-01-23 | [facility] | Negative | (missing) | (missing) | | BARBITURATES | 12:09 | Health | | | | | PRESENCE IN | | System - | | | | | URINE BY | | [place] | | | | | SCREEN | [...] | | | | (PRESENCE) | | [place] | | | | | IN URINE [...] | | | | SCREEN | | [place] | | | | | METHOD | | | | | | + + + + + + + | | 2021-01-23 | [facility] | Presumptive | (missing) | (missing) | | METHAMPHETAM | 12:09 | Health | Positive | | | | INE | | System - | | | | | (PRESENCE) | | [place] | | | | | IN URINE [...] | | | BY SCREEN | | [place] | | | | | METHOD | | | | | | + + + + + + + | THC | 2021-01-23 | [facility] | Presumptive | (missing) | (missing) | | (CANNABINOID | 12:09 | Health | Positive | | | | ) IN URINE | | System - | | | | | BY SCREEN | | [place] | | | | | METHOD | | | | | | + + + + + + + | AMPHETAMINE | 2021-01-23 | [facility] | Presumptive | (missing) | (missing) | | (PRESENCE) | 12:09 | Health | Positive | | | | IN URINE BY | | System - | | | | | SCREEN | | [place] | | | | | METHOD | | | | | | + + + + + + + | | 2021-01-23 | [facility] | Presumptive | (missing) | (missing) | | METHAMPHETAM | 12:09 | Health | Positive | | | | INE | | System - | | | | | (PRESENCE) | | [place] | | | | | IN URINE [...] | | | | SCREEN | | [place] | | | | | METHOD | [...] ? | | | RATE) | | [place] | | | | | ML/MIN/1.73 | [...] ? | | | RATE) | | [place] | | | | | ML/MIN/1.73 | [...] | | | | COUNT | | [place] | | | | + + + + + + + | NRBC/100 | 2021-01-24 | [facility] | 0.0 | % | (missing) | | WBCS BY | 10:09 | Health | | | | | AUTOMATED | | System - | | | | | COUNT | | [place] | | | | + + + + + + + | | 2021-01-24 | [facility] | 0.0 | k/mcl | (missing) | | NRBC(10*3/UL | 10:09 | Health | | | | | ) IN BLOOD | | System - | | | | | BY AUTOMATED | | [place] | | | | | COUNT | | | | | | + + + + + + + | | 2021-01-24 | [facility] | 0.0 | k/mcl | (missing) | | NRBC(10*3/UL | 10:09 | Health | | | | | ) IN BLOOD | | System - | | | | | BY AUTOMATED | | [place] | | | | | COUNT | | | | | | + + + + + + + | IMMATURE | 2021-01-24 | [facility] | 0.04 | k/mcl | (missing) | | GRANULOCYTE | 10:09 | Health | | | | | (ABS) | | System - | | | | | | | [place] | | | | + + + + + + + | IMMATURE | 2021-01-24 | [facility] | 0.04 | k/mcl | (missing) | | GRANULOCYTE | 10:09 | Health | | | | | (ABS) | | System - | | | | | | | [place] | | | | + + + + + + + | BASOPHILS | 2021-01-24 | [facility] | 0.1 | k/mcl | (missing) | | (10*3/UL) IN | 10:09 | Health | | | | | BLOOD BY | | System - | | | | | AUTOMATED | | [place] | | | | | COUNT | | | | | | + + + + + + + | EOSINOPHILS | 2021-01-24 | [facility] | 0.1 | k/mcl | (missing) | | (10*3/UL) | 10:09 | Health | | | | | IN BLOOD BY | | System - | | | | | AUTOMATED | | [place] | | | | | COUNT | | | | | | + + + + + + + | BASOPHILS | 2021-01-24 | [facility] | 0.1 | k/mcl | (missing) | | (10*3/UL) IN | 10:09 | Health | | | | | BLOOD BY | | System - | | | | | AUTOMATED | | [place] | | | | | COUNT | | | | | | + + + + + + + | EOSINOPHILS | 2021-01-24 | [facility] | 0.1 | k/mcl | (missing) | | (10*3/UL) | 10:09 | Health | | | | | IN BLOOD BY | | System - | | | | | AUTOMATED | | [place] | | | | | COUNT | | | | | | + + + + + + + | BILIRUBIN | 2021-01-24 | [facility] | 0.2 | mg/dl | (missing) | | TOTAL | 10:09 | Health | | | | | (MG/DL) IN | | System - | | | | | SER/PLAS | | [place] | | | | + + + + + + + | BILIRUBIN | 2021-01-24 | [facility] | 0.2 | mg/dl | (missing) | | TOTAL | 10:09 | Health | | | | | (MG/DL) IN | | System - | | | | | SER/PLAS | | [place] | | | | + + + + + + + | IMMATURE | 2021-01-24 | [facility] | 0.4 | % | (missing) | | GRANULOCYTE | 10:09 | Health | | | | | % (AUTO) | | System - | | | | | | | [place] | | | | + + + + + + + | IMMATURE | 2021-01-24 | [facility] | 0.4 | % | (missing) | | GRANULOCYTE | 10:09 | Health | | | | | % (AUTO) | | System - | | | | | | | [place] | | | | + + + + + + + | D-DIMER, | 2021-01-24 | [facility] | 0.44 | mcg/ml feu | (missing) | | QUANTITATIVE | 10:09 | Health | | | | | (MCG/ML) | | System - | | | | | STAGO | | [place] | | | | + + + + + + + | D-DIMER, | 2021-01-24 | [facility] | 0.44 | mcg/ml feu | (missing) | | QUANTITATIVE | 10:09 | Health | | | | | (MCG/ML) | | System - | | | | | STAGO | | [place] | | | | + + + + + + + | | 2021-01-24 | [facility] | 0.5 | % | (missing) | | BASOPHILS/10 | 10:09 | Health | | | | | 0 LEUKOCYTES | | System - | | | | | IN BLOOD BY | | [place] | | | | | AUTOMATED | [...] | | IN BLOOD BY | | [place] | | | | | AUTOMATED | [...] | | | | AUTOMATED | | [place] | | | | | COUNT | | | | | | + + + + + + + | MONOCYTES | 2021-01-24 | [facility] | 0.6 | k/mcl | (missing) | | (10*3/UL) IN | 10:09 | Health | | | | | BLOOD BY | | System - | | | | | AUTOMATED | | [place] | | | | | COUNT | | | | | | + + + + + + + | CREATININE | 2021-01-24 | [facility] | 0.7 | mg/dl | (missing) | | (MG/DL) IN | | Health | | | | | SER/PLAS | | System - | | | | | | | [place] | | | | + + + + + + + | CREATININE | 2021-01-24 | [facility] | 0.7 | mg/dl | (missing) | | (MG/DL) IN | | Health | | | | | SER/PLAS | | System - | | | | | | | [place] | | | | + + + + + + + | | 2021-01-24 | [facility] | 1.2 | % | (missing) | | EOSINOPHILS/ | | Health | | | | | 100 | | System - | | | | | LEUKOCYTES | | [place] | | | | | IN BLOOD [...] | | | | LEUKOCYTES | | [place] | | | | | IN BLOOD [...] | | | RATIO) IN | | [place] | | | | | SER/PLAS | | | | | | + + + + + + + | | 2021-01-24 | [facility] | 1.63 | :1 | (missing) | | ALBUMIN/GLOB | 10:09 | Health | | | | | ULIN (A/G | | System - | | | | | RATIO) IN | | [place] | | | | | SER/PLAS | | | | | | + + + + + + + | BLOOD UREA | 2021-01-24 | [facility] | 10 | mg/dl | (missing) | | NITROGEN | 10:09 | Health | | | | | (BUN) | | System - | | | | | (MG/DL) IN | | [place] | | | | | SER/PLAS | | | | | | + + + + + + + | BLOOD UREA | 2021-01-24 | [facility] | 10 | mg/dl | (missing) | | NITROGEN | 10:09 | Health | | | | | (BUN) | | System - | | | | | (MG/DL) IN | | [place] | | | | | SER/PLAS | | | | | | + + + + + + + | CHLORIDE | 2021-01-24 | [facility] | 108 | mmol/l | (missing) | | (MMOL/L) IN | 10:09 | Health | | | | | SER/PLAS | | System - | | | | | | | [place] | | | | + + + + + + + | CHLORIDE | 2021-01-24 | [facility] | 108 | mmol/l | (missing) | | (MMOL/L) IN | 10:09 | Health | | | | | SER/PLAS | | System - | | | | | | | [place] | | | | + + + + + + + | ANION GAP | 2021-01-24 | [facility] | 13.0 | mmol/l | (missing) | | IN SER/PLAS | 10:09 | Health | | | | | | | System - | | | | | | | [place] | | | | + + + + + + + | ANION GAP | 2021-01-24 | [facility] | 13.0 | mmol/l | (missing) | | IN SER/PLAS | 10:09 | Health | | | | | | | System - | | | | | | | [place] | | | | + + + + + + + | ERYTHROCYTE | 2021-01-24 | [facility] | 13.1 | % | (missing) | | | 10:09 | Health | | | | | DISTRIBUTION | | System - | | | | | WIDTH | | [place] | | | | | (RATIO) BY [...] | | | | WIDTH | | [place] | | | | | (RATIO) BY [...] | | | | | | | [place] | | | | + + + + + + + | HEMOGLOBIN | 2021-01-24 | [facility] | 14.5 | g/dl | (missing) | | (G/DL) IN | 10:09 | Health | | | | | BLOOD | | System - | | | | | | | [place] | | | | + + + + + + + | SODIUM | 2021-01-24 | [facility] | 140 | mmol/l | (missing) | | (MMOL/L) IN | 10: | Health | | | | | SER/PLAS | | System - | | | | | | | [place] | | | | + + + + + + + | SODIUM | 2021-01-24 | [facility] | 140 | mmol/l | (missing) | | (MMOL/L) IN | 10:09 | Health | | | | | SER/PLAS | | System - | | | | | | | [place] | | | | + + + + + + + | ASPARTATE | 2021-01-24 | [facility] | 18 | u/l | (missing) | | AMINOTRANSFE | 10: | Health | | | | | RASE (SGOT) | | System - | | | | | (U/L) IN | | [place] | | | | | SER/PLAS | | | | | | + + + + + + + | ASPARTATE | 2021-01-24 | [facility] | 18 | u/l | (missing) | | AMINOTRANSFE | 10:09 | Health | | | | | RASE (SGOT) | | System - | | | | | (U/L) IN | | [place] | | | | | SER/PLAS | | | | | | + + + + + + + | CARBON | 2021-01-24 | [facility] | 19 | mmol/l | (missing) | | DIOXIDE | 10:09 | Health | | | | | (CO2), TOTAL | | System - | | | | | (MMOL/L) IN | | [place] | | | | | SER/PLAS | | | | | | + + + + + + + | CARBON | 2021-01-24 | [facility] | 19 | mmol/l | (missing) | | DIOXIDE | 10:09 | Health | | | | | (CO2), TOTAL | | System - | | | | | (MMOL/L) IN | | [place] | | | | | SER/PLAS | | | | | | + + + + + + + | ALANINE | 2021-01-24 | [facility] | 19 | u/l | (missing) | | AMINOTRANSFE | 10:09 | Health | | | | | RASE (SGPT) | | System - | | | | | (U/L) IN | | [place] | | | | | SER/PLAS | | | | | | + + + + + + + | ALANINE | 2021-01-24 | [facility] | 19 | u/l | (missing) | | AMINOTRANSFE | 10:09 | Health | | | | | RASE (SGPT) | | System - | | | | | (U/L) IN | | [place] | | | | | SER/PLAS | | | | | | + + + + + + + | GLOBULIN | 2021-01-24 | [facility] | 2.4 | g/dl | (missing) | | (G/DL) IN | 10:09 | Health | | | | | SER/PLAS | | System - | | | | | | | [place] | | | | + + + + + + + | GLOBULIN | 2021-01-24 | [facility] | 2.4 | g/dl | (missing) | | (G/DL) IN | 10:09 | Health | | | | | SER/PLAS | | System - | | | | | | | [place] | | | | + + + + + + + | LYMPHOCYTES | 2021-01-24 | [facility] | 2.8 | k/mcl | (missing) | | (10*3/UL) | 10:09 | Health | | | | | IN BLOOD BY | | System - | | | | | AUTOMATED | | [place] | | | | | COUNT | | | | | | + + + + + + + | LYMPHOCYTES | 2021-01-24 | [facility] | 2.8 | k/mcl | (missing) | | (10*3/UL) | 10:09 | Health | | | | | IN BLOOD BY | | System - | | | | | AUTOMATED | | [place] | | | | | COUNT | | | | | | + + + + + + + | | 2021-01-24 | [facility] | 29.0 | % | (missing) | | LYMPHOCYTES/ | 10:09 | Health | | | | | 100 | | System - | | | | | LEUKOCYTES | | [place] | | | | | IN BLOOD [...] | | | | LEUKOCYTES | | [place] | | | | | IN BLOOD [...] | | | | HEMOGLOBIN | | [place] | | | | | (PG) BY [...] | | | | HEMOGLOBIN | | [place] | | | | | (PG) BY [...] | | | | | | | [place] | | | | + + + + + + + | ALBUMIN | 2021-01-24 | [facility] | 3.9 | g/dl | (missing) | | (G/DL) IN | 10: | Health | | | | | SER/PLAS | | System - | | | | | | | [place] | | | | + + + + + + + | ERYTHROCYTE | 2021-01-24 | [facility] | 33.0 | g/dl | (missing) | | MEAN | 10:09 | Health | | | | | CORPUSCULAR | | System - | | | | | HEMOGLOBIN | | [place] | | | | | CONCENTRATIO | [...] | | | | HEMOGLOBIN | | [place] | | | | | CONCENTRATIO | [...] | | | | AUTOMATED | | [place] | | | | | COUNT | | | | | | + + + + + + + | PLATELETS | 2021-01-24 | [facility] | 384 | k/mcl | (missing) | | (10*3/UL) IN | : | Health | | | | | BLOOD | | System - | | | | | AUTOMATED | | [place] | | | | | COUNT | | | | | | + + + + + + + | POTASSIUM | 2021-01-24 | [facility] | 4.2 | mmol/l | (missing) | | (MMOL/L) IN | | Health | | | | | SER/PLAS | | System - | | | | | | | [place] | | | | + + + + + + + | POTASSIUM | 2021-01-24 | [facility] | 4.2 | mmol/l | (missing) | | (MMOL/L) IN | : | Health | | | | | SER/PLAS | | System - | | | | | | | [place] | | | | + + + + + + + | | 2021-01-24 | [facility] | 4.95 | m/mcl | (missing) | | ERYTHROCYTES | : | Health | | | | | (10*6/UL) | | System - | | | | | IN BLOOD BY | | [place] | | | | | AUTOMATED | [...] | | IN BLOOD BY | | [place] | | | | | AUTOMATED | [...] | | | | AUTOMATED | | [place] | | | | | COUNT | | | | | | + + + + + + + | HEMATOCRIT | 2021-01-24 | [facility] | 43.9 | % | (missing) | | (%) IN BLOOD | 10:09 | Health | | | | | BY | | System - | | | | | AUTOMATED | | [place] | | | | | COUNT | | | | | | + + + + + + + | ALKALINE | 2021-01-24 | [facility] | 60 | u/l | (missing) | | PHOSPHATASE | 10:09 | Health | | | | | (U/L) IN | | System - | | | | | SER/PLAS | | [place] | | | | + + + + + + + | ALKALINE | 2021-01-24 | [facility] | 60 | u/l | (missing) | | PHOSPHATASE | 10:09 | Health | | | | | (U/L) IN | | System - | | | | | SER/PLAS | | [place] | | | | + + + + + + + | NEUTROPHILS | 2021-01-24 | [facility] | 6.1 | k/mcl | (missing) | | (10*3/UL) | 10:09 | Health | | | | | IN BLOOD BY | | System - | | | | | AUTOMATED | | [place] | | | | | COUNT | | | | | | + + + + + + + | NEUTROPHILS | 2021-01-24 | [facility] | 6.1 | k/mcl | (missing) | | (10*3/UL) | 10:09 | Health | | | | | IN BLOOD BY | | System - | | | | | AUTOMATED | | [place] | | | | | COUNT | | | | | | + + + + + + + | PROTEIN | 2021-01-24 | [facility] | 6.3 | g/dl | (missing) | | (G/DL) IN | 10:09 | Health | | | | | SER/PLAS | | System - | | | | | | | [place] | | | | + + + + + + + | PROTEIN | 2021-01-24 | [facility] | 6.3 | g/dl | (missing) | | (G/DL) IN | 10:09 | Health | | | | | SER/PLAS | | System - | | | | | | | [place] | | | | + + + + + + + | | 2021-01-24 | [facility] | 6.5 | % | (missing) | | MONOCYTES/10 | 10:09 | Health | | | | | 0 LEUKOCYTES | | System - | | | | | IN BLOOD BY | | [place] | | | | | AUTOMATED | [...] | | IN BLOOD BY | | [place] | | | | | AUTOMATED | [...] | | | | LEUKOCYTES | | [facility] | | | | | IN BLOOD [...] | | | | LEUKOCYTES | | [place] | | | | | IN BLOOD [...] | | | VOLUME (FL) | | [place] | | | | | BY AUTOMATED [...] | | | VOLUME (FL) | | [place] | | | | | BY AUTOMATED | | | | | | | COUNT | | | | | | + + + + + + + | CALCIUM | 2021-01-24 | [facility] | 9.1 | mg/dl | (missing) | | (MG/DL) IN | :09 | Health | | | | | SER/PLAS | | System - | | | | | | | [place] | | | | + + + + + + + | CALCIUM | 2021-01-24 | [facility] | 9.1 | mg/dl | (missing) | | (MG/DL) IN | 10:09 | Health | | | | | SER/PLAS | | System - | | | | | | | [place] | | | | + + + + + + + | | 2021-01-24 | [facility] | 9.8 | k/mcl | (missing) | | LEUKOCYTES(1 | 10:09 | Health | | | | | 0*3/UL) IN | | System - | | | | | BLOOD BY | | [place] | | | | | AUTOMATED | | | | | | | COUNT | | | | | | + + + + + + + | | 2021-01-24 | [facility] | 9.8 | k/mcl | (missing) | | LEUKOCYTES(1 | 10:09 | Health | | | | | 0*3/UL) IN | | System - | | | | | BLOOD BY | | [place] | | | | | AUTOMATED | [...] | | | BLOOD BY | | [place] | | | | | AUTOMATED | [...] | | | BLOOD BY | | [place] | | | | | AUTOMATED | [...] | | | | SER/PLAS | | [place] | | | | + + + + + + + | GLUCOSE, | 2021-01-24 | [facility] | 98 | mg/dl | (missing) | | RANDOM | 10:09 | Health | | | | | (MG/DL) IN | | System - | | | | | SER/PLAS | | [place] | | | | + + + + + + + | [facility] QUAL | 2021-01-24 | [facility] | Negative | (missing) | (missing) | | (CHORIOGONAD | 10:09 | Health | | | | | OTROPIN) IN | | System - | | | | | SER/PLAS | | [place] | | | | + + + + + + + | [facility] QUAL | 2021-01-24 | [facility] | Negative | (missing) | (missing) | | (CHORIOGONAD | 10:09 | Health | | | | | OTROPIN) IN | | System - | | | | | SER/PLAS | | [place] | | | | + + + [...] | | | | | | | [place] | | | | + + + + + + + | ALCOHOL | 2021-01-24 | [facility] | < | g/dl | (missing) | | (G/DL) IN | 10:11 | Health | | | | | SER/PLAS | | System - | | | | | | | [place] | | | | + + + + + + + | INFLUENZA A | 2021-01-24 | [facility] | Negative | (missing) | (missing) | | (CEPHEID) | 10:11 | Health | | | | | | | System - | | | | | | | [place] | | | | + + + + + + + | INFLUENZA B | 2021-01-24 | [facility] | Negative | (missing) | (missing) | | (CEPHEID) | 10:11 | Health | | | | | | | System - | | | | | | | [place] | | | | + + + + + + + | RSV | 2021-01-24 | [facility] | Negative | (missing) | (missing) | | (CEPHEID) | 10:11 | Health | | | | | | | System - | | | | | | | [place] | | | | + + + + + + + | INFLUENZA A | 2021-01-24 | [facility] | Negative | (missing) | (missing) | | (CEPHEID) | 10:11 | Health | | | | | | | System - | | | | | | | [place] | | | | + + + + + + + | INFLUENZA B | 2021-01-24 | [facility] | Negative | (missing) | (missing) | | (CEPHEID) | 10:11 | Health | | | | | | | System - | | | | | | | [place] | | | | + + + + + + + | RSV | 2021-01-24 | [facility] | Negative | (missing) | (missing) | | (CEPHEID) | 10:11 | Health | | | | | | | System - | | | | | | | [place] | | | | + + + + + + + | SARS-COV-2 | 2021-01-24 | [facility] | Positive | (missing) | (missing) | | (COVID19) | 10:11 | Health | | | | | CEPHEID PCR | | System - | | | | | | | [place] | | | | + + + + + + + | SARS-COV-2 | 2021-01-24 | [facility] | Positive | (missing) | (missing) | | (COVID19) | 10:11 | Health | | | | | CEPHEID PCR | | System - | | | | | | | [place] | | | | + + + + + + + + + | Result panel 20 | + + + + + +-------+---------+ + | POCT | 2021-01-24 | [facility] | 0.7 | mg/dl | (missing) | | CREATININE | 10:40 | Health | | | | | BLOOD | | System - | | | | | | | [place] | | | | + + + +-------+---------+ + + + | Result panel 21 | + + + + + +--------+---------+ + | POCT | 2021-01-24 | [facility] | 0.03 | ng/ml | (missing) | | TROPONIN I | 10:50 | Health | | | | | | | System - | | | | | | | [place] | | | | + + + +--------+---------+ + | POCT | 2021-01-24 | [facility] | 0.03 | ng/ml | (missing) | | TROPONIN I | 10:50 | Health | | | | | | | System - | | | | | | | [place] | | | | + + + [...] ? | | | RATE) | | [place] | | | | | ML/MIN/1.73 | [...] ? | | | RATE) | | [place] | | | | | ML/MIN/1.73 | [...] | | | | | | | [place] | | | | + + + + + + + | ALCOHOL | 2021-01-26 | [facility] | < | g/dl | (missing) | | (G/DL) IN | 07:37 | Health | | | | | SER/PLAS | | System - | | | | | | | [place] | | | | + + + + + + + | | 2021-01-26 | [facility] | < | mcg/ml | (missing) | | ACETAMINOPHE | 07:37 | Health | | | | | N (UG/ML) IN | | System - | | | | | SER/PLAS | | [place] | | | | + + + + + + + | | 2021-01-26 | [facility] | < | mcg/ml | (missing) | | ACETAMINOPHE | 07:37 | Health | | | | | N (UG/ML) IN | | System - | | | | | SER/PLAS | | [place] | | | | + + + + + + + | SALICYLATE | 2021-01-26 | [facility] | < | mg/dl | (missing) | | (MG/DL) IN | 07:37 | Health | | | | | SER/PLAS | | System - | | | | | | | [place] | | | | + + + + + + + | BILIRUBIN | 2021-01-26 | [facility] | < | mg/dl | (missing) | | TOTAL | 07:37 | Health | | | | | (MG/DL) IN | | System - | | | | | SER/PLAS | | [place] | | | | + + + + + + + | BILIRUBIN | 2021-01-26 | [facility] | < | mg/dl | (missing) | | TOTAL | 07:37 | Health | | | | | (MG/DL) IN | | System - | | | | | SER/PLAS | | [place] | | | | + + + + + + + | SALICYLATE | 2021-01-26 | [facility] | < | mg/dl | (missing) | | (MG/DL) IN | 07:37 | Health | | | | | SER/PLAS | | System - | | | | | | | [place] | | | | + + + + + + + | NRBC/100 | 2021-01-26 | [facility] | 0.0 | % | (missing) | | WBCS BY | 07:37 | Health | | | | | AUTOMATED | | System - | | | | | COUNT | | [place] | | | | + + + + + + + | NRBC/100 | 2021-01-26 | [facility] | 0.0 | % | (missing) | | WBCS BY | 07:37 | Health | | | | | AUTOMATED | | System - | | | | | COUNT | | [place] | | | | + + + + + + + | | 2021-01-26 | [facility] | 0.0 | k/mcl | (missing) | | NRBC(10*3/UL | 07:37 | Health | | | | | ) IN BLOOD | | System - | | | | | BY AUTOMATED | | [place] | | | | | COUNT | | | | | | + + + + + + + | | 2021-01-26 | [facility] | 0.0 | k/mcl | (missing) | | NRBC(10*3/UL | 07:37 | Health | | | | | ) IN BLOOD | | System - | | | | | BY AUTOMATED | | [place] | | | | | COUNT | | | | | | + + + + + + + | IMMATURE | 2021-01-26 | [facility] | 0.05 | k/mcl | (missing) | | GRANULOCYTE | 07:37 | Health | | | | | (ABS) | | System - | | | | | | | [place] | | | | + + + + + + + | IMMATURE | 2021-01-26 | [facility] | 0.05 | k/mcl | (missing) | | GRANULOCYTE | 07:37 | Health | | | | | (ABS) | | System - | | | | | | | [place] | | | | + + + + + + + | BASOPHILS | 2021-01-26 | [facility] | 0.1 | k/mcl | (missing) | | (10*3/UL) IN | 07:37 | Health | | | | | BLOOD BY | | System - | | | | | AUTOMATED | | [place] | | | | | COUNT | | | | | | + + + + + + + | BASOPHILS | 2021-01-26 | [facility] | 0.1 | k/mcl | (missing) | | (10*3/UL) IN | 07:37 | Health | | | | | BLOOD BY | | System - | | | | | AUTOMATED | | [place] | | | | | COUNT | | | | | | + + + + + + + | EOSINOPHILS | 2021-01-26 | [facility] | 0.2 | k/mcl | (missing) | | (10*3/UL) | 07:37 | Health | | | | | IN BLOOD BY | | System - | | | | | AUTOMATED | | [place] | | | | | COUNT | | | | | | + + + + + + + | EOSINOPHILS | 2021-01-26 | [facility] | 0.2 | k/mcl | (missing) | | (10*3/UL) | 07:37 | Health | | | | | IN BLOOD BY | | System - | | | | | AUTOMATED | | [place] | | | | | COUNT | | | | | | + + + + + + + | | 2021-01-26 | [facility] | 0.2-1.0 | mg/dl | (missing) | | UROBILINOGEN | 07:37 | Health | | | | | (MG/DL) IN | | System - | | | | | URINE BY | | [place] | | | | | TEST STRIP | | | | | | + + + + + + + | | 2021-01-26 | [facility] | 0.2-1.0 | mg/dl | (missing) | | UROBILINOGEN | 07:37 | Health | | | | | (MG/DL) IN | | System - | | | | | URINE BY | | [place] | | | | | TEST STRIP | | | | | | + + + + + + + | IMMATURE | 2021-01-26 | [facility] | 0.4 | % | (missing) | | GRANULOCYTE | 07:37 | Health | | | | | % (AUTO) | | System - | | | | | | | [place] | | | | + + + + + + + | IMMATURE | 2021-01-26 | [facility] | 0.4 | % | (missing) | | GRANULOCYTE | 07:37 | Health | | | | | % (AUTO) | | System - | | | | | | | [place] | | | | + + + + + + + | | 2021-01-26 | [facility] | 0.6 | % | (missing) | | BASOPHILS/10 | 07:37 | Health | | | | | 0 LEUKOCYTES | | System - | | | | | IN BLOOD BY | | [place] | | | | | AUTOMATED | [...] | | IN BLOOD BY | | [place] | | | | | AUTOMATED | [...] | | | | AUTOMATED | | [place] | | | | | COUNT | | | | | | + + + + + + + | MONOCYTES | 2021-01-26 | [facility] | 0.7 | k/mcl | (missing) | | (10*3/UL) IN | 07:37 | Health | | | | | BLOOD BY | | System - | | | | | AUTOMATED | | [place] | | | | | COUNT | | | | | | + + + + + + + | CREATININE | 2021-01-26 | [facility] | 0.8 | mg/dl | (missing) | | (MG/DL) IN | 07:37 | Health | | | | | SER/PLAS | | System - | | | | | | | [place] | | | | + + + + + + + | CREATININE | 2021-01-26 | [facility] | 0.8 | mg/dl | (missing) | | (MG/DL) IN | 07:37 | Health | | | | | SER/PLAS | | System - | | | | | | | [place] | | | | + + + + + + + | SPECIFIC | 2021-01-26 | [facility] | 1.031 | (missing) | (missing) | | GRAVITY OF | 07:37 | Health | | | | | URINE BY | | System - | | | | | AUTOMATED | | [place] | | | | | TEST STRIP | | | | | | + + + + + + + | SPECIFIC | 2021-01-26 | [facility] | 1.031 | (missing) | (missing) | | GRAVITY OF | 07:37 | Health | | | | | URINE BY | | System - | | | | | AUTOMATED | | [place] | | | | | TEST STRIP | | | | | | + + + + + + + | | 2021-01-26 | [facility] | 1.6 | % | (missing) | | EOSINOPHILS/ | 07:37 | Health | | | | | 100 | | System - | | | | | LEUKOCYTES | | [place] | | | | | IN BLOOD BY | | | | | | | AUTOMATED | | | | | | | COUNT | | | | | | + + + + + + + | | 2021-01-26 | [facility] | 1.6 | % | (missing) | | EOSINOPHILS/ | 07:37 | Health | | | | | 100 | | System - | | | | | LEUKOCYTES | | [place] | | | | | IN BLOOD BY | | | | | | | AUTOMATED | | | | | | | COUNT | | | | | | + + + + + + + | | 2021-01-26 | [facility] | 1.67 | :1 | (missing) | | ALBUMIN/GLOB | 07:37 | Health | | | | | ULIN (A/G | | System - | | | | | RATIO) IN | | [place] | | | | | SER/PLAS | | | | | | + + + + + + + | | 2021-01-26 | [facility] | 1.67 | :1 | (missing) | | ALBUMIN/GLOB | 07:37 | Health | | | | | ULIN (A/G | | System - | | | | | RATIO) IN | | [place] | | | | | SER/PLAS | | | | | | + + + + + + + | SQUAMOUS | 2021-01-26 | [facility] | 10 | /hpf | (missing) | | EPITHELIAL | 07:37 | Health | | | | | CELLS | | System - | | | | | (#/HPF) IN | | [place] | | | | | URINE | [...] | | | (#/HPF) IN | | [place] | | | | | URINE | [...] | | | | | | | [place] | | | | + + + + + + + | CHLORIDE | 2021-01-26 | [facility] | 105 | mmol/l | (missing) | | (MMOL/L) IN | 07:37 | Health | | | | | SER/PLAS | | System - | | | | | | | [place] | | | | + + + + + + + | WBC | 2021-01-26 | [facility] | 11 | /hpf | (missing) | | (LEUKOCYTE) | 07:37 | Health | | | | | (#/HPF) IN | | System - | | | | | URINE | | [place] | | | | | SEDIMENT | | | | | | + + + + + + + | WBC | 2021-01-26 | [facility] | 11 | /hpf | (missing) | | (LEUKOCYTE) | 07:37 | Health | | | | | (#/HPF) IN | | System - | | | | | URINE | | [place] | | | | | SEDIMENT | | | | | | + + + + + + + | ANION GAP | 2021-01-26 | [facility] | 11.0 | mmol/l | (missing) | | IN SER/PLAS | 07:37 | Health | | | | | | | System - | | | | | | | [place] | | | | + + + + + + + | ANION GAP | 2021-01-26 | [facility] | 11.0 | mmol/l | (missing) | | IN SER/PLAS | 07:37 | Health | | | | | | | System - | | | | | | | [place] | | | | + + + + + + + | | 2021-01-26 | [facility] | 11.3 | k/mcl | (missing) | | LEUKOCYTES(1 | 07:37 | Health | | | | | 0*3/UL) IN | | System - | | | | | BLOOD BY | | [place] | | | | | AUTOMATED | [...] | | | BLOOD BY | | [place] | | | | | AUTOMATED | [...] | | | | SER/PLAS | | [place] | | | | + + + + + + + | GLUCOSE, | 2021-01-26 | [facility] | 110 | mg/dl | (missing) | | RANDOM | 07:37 | Health | | | | | (MG/DL) IN | | System - | | | | | SER/PLAS | | [place] | | | | + + + + + + + | ERYTHROCYTE | 2021-01-26 | [facility] | 12.8 | % | (missing) | | | 07:37 | Health | | | | | DISTRIBUTION | | System - | | | | | WIDTH | | [place] | | | | | (RATIO) BY [...] | | | | WIDTH | | [place] | | | | | (RATIO) BY [...] | | | | | | | [place] | | | | + + + + + + + | SODIUM | 2021-01-26 | [facility] | 138 | mmol/l | (missing) | | (MMOL/L) IN | 07:37 | Health | | | | | SER/PLAS | | System - | | | | | | | [place] | | | | + + + + + + + | BLOOD UREA | 2021-01-26 | [facility] | 14 | mg/dl | (missing) | | NITROGEN | 07:37 | Health | | | | | (BUN) | | System - | | | | | (MG/DL) IN | | [place] | | | | | SER/PLAS | | | | | | + + + + + + + | BLOOD UREA | 2021-01-26 | [facility] | 14 | mg/dl | (missing) | | NITROGEN | 07:37 | Health | | | | | (BUN) | | System - | | | | | (MG/DL) IN | | [place] | | | | | SER/PLAS | | | | | | + + + + + + + | HEMOGLOBIN | 2021-01-26 | [facility] | 14.8 | g/dl | (missing) | | (G/DL) IN | 07:37 | Health | | | | | BLOOD | | System - | | | | | | | [place] | | | | + + + + + + + | HEMOGLOBIN | 2021-01-26 | [facility] | 14.8 | g/dl | (missing) | | (G/DL) IN | 07:37 | Health | | | | | BLOOD | | System - | | | | | | | [place] | | | | + + + + + + + | ASPARTATE | 2021-01-26 | [facility] | 17 | u/l | (missing) | | AMINOTRANSFE | 07:37 | Health | | | | | RASE (SGOT) | | System - | | | | | (U/L) IN | | [place] | | | | | SER/PLAS | | | | | | + + + + + + + | ASPARTATE | 2021-01-26 | [facility] | 17 | u/l | (missing) | | AMINOTRANSFE | 07:37 | Health | | | | | RASE (SGOT) | | System - | | | | | (U/L) IN | | [place] | | | | | SER/PLAS | | | | | | + + + + + + + | PROTEIN IN | 2021-01-26 | [facility] | 2 | (missing) | (missing) | | URINE BY | 07:37 | Health | | | | | TEST STRIP | | System - | | | | | | | [place] | | | | + + + + + + + | PROTEIN IN | 2021-01-26 | [facility] | 2 | (missing) | (missing) | | URINE BY | 07:37 | Health | | | | | TEST STRIP | | System - | | | | | | | [place] | | | | + + + + + + + | RBC (#/HPF) | 2021-01-26 | [facility] | 2 | /hpf | (missing) | | IN URINE | 07:37 | Health | | | | | SEDIMENT | | System - | | | | | | | [place] | | | | + + + + + + + | RBC (#/HPF) | 2021-01-26 | [facility] | 2 | /hpf | (missing) | | IN URINE | 07:37 | Health | | | | | SEDIMENT | | System - | | | | | | | [place] | | | | + + + + + + + | TSH | 2021-01-26 | [facility] | 2.11 | mciu/ml | (missing) | | (THYROTROPIN | 07:37 | Health | | | | | ) (UIU/ML) | | System - | | | | | IN SER/PLAS | | [place] | | | | + + + + + + + | TSH | 2021-01-26 | [facility] | 2.11 | mciu/ml | (missing) | | (THYROTROPIN | 07:37 | Health | | | | | ) (UIU/ML) | | System - | | | | | IN SER/PLAS | | [place] | | | | + + + + + + + | GLOBULIN | 2021-01-26 | [facility] | 2.4 | g/dl | (missing) | | (G/DL) IN | 07:37 | Health | | | | | SER/PLAS | | System - | | | | | | | [place] | | | | + + + + + + + | GLOBULIN | 2021-01-26 | [facility] | 2.4 | g/dl | (missing) | | (G/DL) IN | 07:37 | Health | | | | | SER/PLAS | | System - | | | | | | | [place] | | | | + + + + + + + | LYMPHOCYTES | 2021-01-26 | [facility] | 2.9 | k/mcl | (missing) | | (10*3/UL) | 07:37 | Health | | | | | IN BLOOD BY | | System - | | | | | AUTOMATED | | [place] | | | | | COUNT | | | | | | + + + + + + + | LYMPHOCYTES | 2021-01-26 | [facility] | 2.9 | k/mcl | (missing) | | (10*3/UL) | 07:37 | Health | | | | | IN BLOOD BY | | System - | | | | | AUTOMATED | | [place] | | | | | COUNT | | | | | | + + + + + + + | ALANINE | 2021-01-26 | [facility] | 20 | u/l | (missing) | | AMINOTRANSFE | 07:37 | Health | | | | | RASE (SGPT) | | System - | | | | | (U/L) IN | | [place] | | | | | SER/PLAS | | | | | | + + + + + + + | ALANINE | 2021-01-26 | [facility] | 20 | u/l | (missing) | | AMINOTRANSFE | 07:37 | Health | | | | | RASE (SGPT) | | System - | | | | | (U/L) IN | | [place] | | | | | SER/PLAS | | | | | | + + + + + + + | CARBON | 2021-01-26 | [facility] | 22 | mmol/l | (missing) | | DIOXIDE | 07:37 | Health | | | | | (CO2), TOTAL | | System - | | | | | (MMOL/L) IN | | [place] | | | | | SER/PLAS | | | | | | + + + + + + + | CARBON | 2021-01-26 | [facility] | 22 | mmol/l | (missing) | | DIOXIDE | 07:37 | Health | | | | | (CO2), TOTAL | | System - | | | | | (MMOL/L) IN | | [place] | | | | | SER/PLAS | | | | | | + + + + + + + | | 2021-01-26 | [facility] | 25.5 | % | (missing) | | LYMPHOCYTES/ | 07:37 | Health | | | | | 100 | | System - | | | | | LEUKOCYTES | | [place] | | | | | IN BLOOD [...] | | | | LEUKOCYTES | | [place] | | | | | IN BLOOD [...] | | | | HEMOGLOBIN | | [place] | | | | | (PG) BY [...] | | | | HEMOGLOBIN | | [place] | | | | | (PG) BY [...] | | | | | | | [place] | | | | + + + + + + + | BACTERIA | 2021-01-26 | [facility] | 3 | /hpf | (missing) | | (#/HPF) IN | 07:37 | Health | | | | | URINE | | System - | | | | | | | [place] | | | | + + + + + + + | ERYTHROCYTE | 2021-01-26 | [facility] | 32.4 | g/dl | (missing) | | MEAN | 07:37 | Health | | | | | CORPUSCULAR | | System - | | | | | HEMOGLOBIN | | [place] | | | | | CONCENTRATIO | [...] | | | | HEMOGLOBIN | | [place] | | | | | CONCENTRATIO | [...] | | | | AUTOMATED | | [place] | | | | | COUNT | | | | | | + + + + + + + | PLATELETS | 2021-01-26 | [facility] | 378 | k/mcl | (missing) | | (10*3/UL) IN | 07:37 | Health | | | | | BLOOD | | System - | | | | | AUTOMATED | | [place] | | | | | COUNT | | | | | | + + + + + + + | ALBUMIN | 2021-01-26 | [facility] | 4.0 | g/dl | (missing) | | (G/DL) IN | 07:37 | Health | | | | | SER/PLAS | | System - | | | | | | | [place] | | | | + + + + + + + | ALBUMIN | 2021-01-26 | [facility] | 4.0 | g/dl | (missing) | | (G/DL) IN | 07:37 | Health | | | | | SER/PLAS | | System - | | | | | | | [place] | | | | + + + + + + + | POTASSIUM | 2021-01-26 | [facility] | 4.4 | mmol/l | (missing) | | (MMOL/L) IN | 07:37 | Health | | | | | SER/PLAS | | System - | | | | | | | [place] | | | | + + + + + + + | POTASSIUM | 2021-01-26 | [facility] | 4.4 | mmol/l | (missing) | | (MMOL/L) IN | 07:37 | Health | | | | | SER/PLAS | | System - | | | | | | | [place] | | | | + + + + + + + | HEMATOCRIT | 2021-01-26 | [facility] | 45.7 | % | (missing) | | (%) IN BLOOD | 07:37 | Health | | | | | BY | | System - | | | | | AUTOMATED | | [place] | | | | | COUNT | | | | | | + + + + + + + | HEMATOCRIT | 2021-01-26 | [facility] | 45.7 | % | (missing) | | (%) IN BLOOD | 07:37 | Health | | | | | BY | | System - | | | | | AUTOMATED | | [place] | | | | | COUNT | | | | | | + + + + + + + | PH OF URINE | 2021-01-26 | [facility] | 5.0 | (missing) | (missing) | | | 07:37 | Health | | | | | | | System - | | | | | | | [place] | | | | + + + + + + + | PH OF URINE | 2021-01-26 | [facility] | 5.0 | (missing) | (missing) | | | 07:37 | Health | | | | | | | System - | | | | | | | [place] | | | | + + + + + + + | | 2021-01-26 | [facility] | 5.04 | m/mcl | (missing) | | ERYTHROCYTES | 07:37 | Health | | | | | (10*6/UL) | | System - | | | | | IN BLOOD BY | | [place] | | | | | AUTOMATED | [...] | | IN BLOOD BY | | [place] | | | | | AUTOMATED | [...] | | IN BLOOD BY | | [place] | | | | | AUTOMATED | [...] | | IN BLOOD BY | | [place] | | | | | AUTOMATED | [...] | | | | | | | [place] | | | | + + + + + + + | PROTEIN | 2021-01-26 | [facility] | 6.4 | g/dl | (missing) | | (G/DL) IN | 07:37 | Health | | | | | SER/PLAS | | System - | | | | | | | [place] | | | | + + + + + + + | ALKALINE | 2021-01-26 | [facility] | 62 | u/l | (missing) | | PHOSPHATASE | 07:37 | Health | | | | | (U/L) IN | | System - | | | | | SER/PLAS | | [place] | | | | + + + + + + + | ALKALINE | 2021-01-26 | [facility] | 62 | u/l | (missing) | | PHOSPHATASE | 07:37 | Health | | | | | (U/L) IN | | System - | | | | | SER/PLAS | | [place] | | | | + + + + + + + | | 2021-01-26 | [facility] | 65.6 | % | (missing) | | NEUTROPHILS/ | 07:37 | Health | | | | | 100 | | System - | | | | | LEUKOCYTES | | [place] | | | | | IN BLOOD [...] | | | | LEUKOCYTES | | [place] | | | | | IN BLOOD [...] | | | | AUTOMATED | | [place] | | | | | COUNT | | | | | | + + + + + + + | NEUTROPHILS | 2021-01-26 | [facility] | 7.4 | k/mcl | (missing) | | (10*3/UL) | 07:37 | Health | | | | | IN BLOOD BY | | System - | | | | | AUTOMATED | | [place] | | | | | COUNT | | | | | | + + + + + + + | CALCIUM | 2021-01-26 | [facility] | 9.2 | mg/dl | (missing) | | (MG/DL) IN | 07:37 | Health | | | | | SER/PLAS | | System - | | | | | | | [place] | | | | + + + + + + + | CALCIUM | 2021-01-26 | [facility] | 9.2 | mg/dl | (missing) | | (MG/DL) IN | 07:37 | Health | | | | | SER/PLAS | | System - | | | | | | | [place] | | | | + + + + + + + | PLATELET | 2021-01-26 | [facility] | 9.7 | fl | (missing) | | MEAN VOLUME | 07:37 | Health | | | | | (FL) IN | | System - | | | | | BLOOD BY | | [place] | | | | | AUTOMATED | [...] | | | BLOOD BY | | [place] | | | | | AUTOMATED | [...] | | | VOLUME (FL) | | [place] | | | | | BY AUTOMATED [...] | | | VOLUME (FL) | | [place] | | | | | BY AUTOMATED [...] | | | | | | | [place] | | | | + + + + + + + | CLARITY OF | 2021-01-26 | [facility] | Cloudy | (missing) | (missing) | | URINE | 07:37 | Health | | | | | | | System - | | | | | | | [place] | | | | + + + + + + + | ASA | 2021-01-26 | [facility] | Negative | (missing) | (missing) | | (ASCORBIC | 07:37 | Health | | | | | ACID) IN | | System - | | | | | URINE | | [place] | | | | + + + + + + + | | 2021-01-26 | [facility] | Negative | (missing) | (missing) | | BARBITURATES | 07:37 | Health | | | | | PRESENCE IN | | System - | | | | | URINE BY | | [place] | | | | | SCREEN | [...] | | | | SCREEN | | [place] | | | | | METHOD | | | | | | + + + + + + + | GLUCOSE IN | 2021-01-26 | [facility] | Negative | (missing) | (missing) | | URINE | 07:37 | Health | | | | | | | System - | | | | | | | [place] | | | | + + + + + + + | HEMOGLOBIN | 2021-01-26 | [facility] | Negative | (missing) | (missing) | | PRESENCE IN | 07:37 | Health | | | | | URINE | | System - | | | | | | | [place] | | | | + + + + + + + | METHADONE | 2021-01-26 | [facility] | Negative | (missing) | (missing) | | (PRESENCE) | 07:37 | Health | | | | | IN URINE BY | | System - | | | | | SCREEN | | [place] | | | | | METHOD | | | | | | + + + + + + + | NITRITE | 2021-01-26 | [facility] | Negative | (missing) | (missing) | | PRESENCE IN | 07:37 | Health | | | | | URINE | | System - | | | | | | | [place] | | | | + + + + + + + | OPIATES | 2021-01-26 | [facility] | Negative | (missing) | (missing) | | (PRESENCE) | 07:37 | Health | | | | | IN URINE BY | | System - | | | | | SCREEN | | [place] | | | | | METHOD | | | | | | + + + + + + + | OXYCODONE | 2021-01-26 | [facility] | Negative | (missing) | (missing) | | (PRESENCE) | 07:37 | Health | | | | | IN URINE BY | | System - | | | | | SCREEN | | [place] | | | | | METHOD | | | | | | + + + + + + + | | 2021-01-26 | [facility] | Negative | (missing) | (missing) | | PHENCYCLIDIN | 07:37 | Health | | | | | E (PRESENCE) | | System - | | | | | IN URINE BY | | [place] | | | | | SCREEN | [...] | | | | (PRESENCE) | | [place] | | | | | IN URINE | | | | | | + + + + + + + | | 2021-01-26 | [facility] | Negative | (missing) | (missing) | | PHENCYCLIDIN | 07:37 | Health | | | | | E (PRESENCE) | | System - | | | | | IN URINE BY | | [place] | | | | | SCREEN | [...] | | | | URINE | | [place] | | | | + + + + + + + | OPIATES | 2021-01-26 | [facility] | Negative | (missing) | (missing) | | (PRESENCE) | 07:37 | Health | | | | | IN URINE BY | | System - | | | | | SCREEN | | [place] | | | | | METHOD | | | | | | + + + + + + + | TRICYCLIC | 2021-01-26 | [facility] | Negative | (missing) | (missing) | | ANTIDEPRESSA | 07:37 | Health | | | | | NTS | | System - | | | | | (PRESENCE) | | [place] | | | | | IN URINE | | | | | | + + + + + + + | OXYCODONE | 2021-01-26 | [facility] | Negative | (missing) | (missing) | | (PRESENCE) | 07:37 | Health | | | | | IN URINE BY | | System - | | | | | SCREEN | | [place] | | | | | METHOD | | | | | | + + + + + + + | [facility] QUAL | 2021-01-26 | [facility] | Negative | (missing) | (missing) | | (CHORIOGONAD | 07:37 | Health | | | | | OTROPIN) IN | | System - | | | | | SER/PLAS | | [place] | | | | + + + + + + + | GLUCOSE IN | 2021-01-26 | [facility] | Negative | (missing) | (missing) | | URINE | 07:37 | Health | | | | | | | System - | | | | | | | [place] | | | | + + + + + + + | COCAINE | 2021-01-26 | [facility] | Negative | (missing) | (missing) | | (PRESENCE) | 07:37 | Health | | | | | IN URINE BY | | System - | | | | | SCREEN | | [place] | | | | | METHOD | | | | | | + + + + + + + | NITRITE | 2021-01-26 | [facility] | Negative | (missing) | (missing) | | PRESENCE IN | 07:37 | Health | | | | | URINE | | System - | | | | | | | [place] | | | | + + + + + + + | | 2021-01-26 | [facility] | Negative | (missing) | (missing) | | BARBITURATES | 07:37 | Health | | | | | PRESENCE IN | | System - | | | | | URINE BY | | [place] | | | | | SCREEN | [...] | | | | SCREEN | | [place] | | | | | METHOD | | | | | | + + + + + + + | HEMOGLOBIN | 2021-01-26 | [facility] | Negative | (missing) | (missing) | | PRESENCE IN | 07:37 | Health | | | | | URINE | | System - | | | | | | | [place] | | | | + + + + + + + | [facility] QUAL | 2021-01-26 | [facility] | Negative | (missing) | (missing) | | (CHORIOGONAD | 07:37 | Health | | | | | OTROPIN) IN | | System - | | | | | SER/PLAS | | [place] | | | | + + + + + + + | BILIRUBIN, | 2021-01-26 | [facility] | Positive | (missing) | (missing) | | TOTAL | 07:37 | Health | | | | | PRESENCE IN | | System - | | | | | URINE | | [place] | | | | + + + + + + + | BILIRUBIN, | 2021-01-26 | [facility] | Positive | (missing) | (missing) | | TOTAL | 07:37 | Health | | | | | PRESENCE IN | | System - | | | | | URINE | | [place] | | | | + + + + + + + | | 2021-01-26 | [facility] | Presumptive | (missing) | (missing) | | BENZODIAZEPI | 07:37 | Health | Positive | | | | SURYA | | System - | | | | | (PRESENCE) | | [place] | | | | | IN URINE [...] | | | | (PRESENCE) | | [place] | | | | | IN URINE [...] | | | BY SCREEN | | [place] | | | | | METHOD | | | | | | + + + + + + + | THC | 2021-01-26 | [facility] | Presumptive | (missing) | (missing) | | (CANNABINOID | 07:37 | Health | Positive | | | | ) IN URINE | | System - | | | | | BY SCREEN | | [place] | | | | | METHOD | | | | | | + + + + + + + | AMPHETAMINE | 2021-01-26 | [facility] | Presumptive | (missing) | (missing) | | (PRESENCE) | 07:37 | Health | Positive | | | | IN URINE BY | | System - | | | | | SCREEN | | [place] | | | | | METHOD | | | | | | + + + + + + + | | 2021-01-26 | [facility] | Presumptive | (missing) | (missing) | | METHAMPHETAM | 07:37 | Health | Positive | | | | INE | | System - | | | | | (PRESENCE) | | [place] | | | | | IN URINE [...] | | | | (PRESENCE) | | [place] | | | | | IN URINE [...] | | | | SCREEN | | [place] | | | | | METHOD | | | | | | + + + + + + + | KETONES IN | 2021-01-26 | [facility] | Trace | (missing) | (missing) | | URINE | 07:37 | Health | | | | | | | System - | | | | | | | [place] | | | | + + + + + + + | LEUKOCYTE | 2021-01-26 | [facility] | Trace | (missing) | (missing) | | ESTERASE | 07:37 | Health | | | | | PRESENCE IN | | System - | | | | | URINE BY | | [place] | | | | | TEST STRIP | | | | | | + + + + + + + | MUCUS | 2021-01-26 | [facility] | Trace | (missing) | (missing) | | (#/HPF) IN | 07:37 | Health | | | | | URINE | | System - | | | | | SEDIMENT | | [place] | | | | + + + + + + + | MUCUS | 2021-01-26 | [facility] | Trace | (missing) | (missing) | | (#/HPF) IN | 07:37 | Health | | | | | URINE | | System - | | | | | SEDIMENT | | [place] | | | | + + + + + + + | KETONES IN | 2021-01-26 | [facility] | Trace | (missing) | (missing) | | URINE | 07:37 | Health | | | | | | | System - | | | | | | | [place] | | | | + + + + + + + | LEUKOCYTE | 2021-01-26 | [facility] | Trace | (missing) | (missing) | | ESTERASE | 07:37 | Health | | | | | PRESENCE IN | | System - | | | | | URINE BY | | [place] | | | | | TEST STRIP | | | | | | + + + + + + + | COLOR OF | 2021-01-26 | [facility] | Yellow | (missing) | (missing) | | URINE | 07:37 | Health | | | | | | | System - | | | | | | | [place] | | | | + + + + + + + | COLOR OF | 2021-01-26 | [facility] | Yellow | (missing) | (missing) | | URINE | 07:37 | Health | | | | | | | System - | | | | | | | [place] | | | | + + + + + + + + + | Result panel 23 | + + + + + + + + + | | 2021-01-26 | [facility] | (missing) | (missing) | (missing) | | (unavailable | 07:38 | Health | | | | | ) | | System - | | | | | | | [place] | | | | + + + + + + + | | 2021-01-26 | [facility] | 1. No acute | (missing) | (missing) | | (unavailable | 07:38 | Health | | | | | ) | | System - | radiographic | | | | | | [place] | abnormality | | | | | [...] osseous | | | | | | [place] | structures | | | | | [...] | | | | | | | [place] | | | | + + + + + + + | | 2021-01-26 | [facility] | Electronical | (missing) | (missing) | | (unavailable | 07:38 | Health | ly signed | | | | ) | | System - | by: | | | | | | [place] | José | | | | | | | MD [place] | | | | | | | on | | | | | | | 01/26/2021 | | | | | | | 8:05 AM at | | | | | | | workstation | | | | | | | [id number] | | | + + + + + + + | | 2021-01-26 | [facility] | FINDINGS: | (missing) | (missing) | | (unavailable | 07:38 | Health | | | | | ) | | System - | | | | | | | [place] | | | | + + + + + + + | | 2021-01-26 | [facility] | HEART: The | (missing) | (missing) | | (unavailable | 07:38 | Health | cardiac | | | | ) | | System - | silhouette | | | | | | [place] | is not | | | | | | | enlarged. | | | + + + + + + + | | 2021-01-26 | [facility] | | (missing) | (missing) | | (unavailable | 07:38 | Health | INDICATIONS: | | | | ) | | System - | SOB, COVID | | | | | | [place] | | | | + + + + + + + | | 2021-01-26 | [facility] | LUNGS: | (missing) | (missing) | | (unavailable | 07:38 | Health | Portable AP | | | | ) | | System - | technique | | | | | | [place] | accentuates | | | | | [...] The | | | | | | [place] | mediastinum | | | | | [...] pleural | | | | | | [place] | effusion or | | | | [...] VIEW | | | | | | [place] | | | | + + + + + + + | | 2021-01-26 | [facility] | | (missing) | (missing) | | (unavailable | 07:38 | Health | Procedure(s) | | | | ) | | System - | : * No | | | | | | [place] | procedures | | | | | [...] | | | URINE BY | | [place] | | | | | TEST STRIP | | | | | | + + + + + + + | SPECIFIC | 2021-01-26 | [facility] | 1.031 | (missing) | (missing) | | GRAVITY OF | 08:27 | Health | | | | | URINE BY | | System - | | | | | AUTOMATED | | [place] | | | | | TEST STRIP | | | | | | + + + + + + + | SQUAMOUS | 2021-01-26 | [facility] | 10 | /hpf | (missing) | | EPITHELIAL | 08:27 | Health | | | | | CELLS | | System - | | | | | (#/HPF) IN | | [place] | | | | | URINE | [...] | | | | URINE | | [place] | | | | | SEDIMENT | | | | | | + + + + + + + | PROTEIN IN | 2021-01-26 | [facility] | 2 | (missing) | (missing) | | URINE BY | 08:27 | Health | | | | | TEST STRIP | | System - | | | | | | | [place] | | | | + + + + + + + | RBC (#/HPF) | 2021-01-26 | [facility] | 2 | /hpf | (missing) | | IN URINE | 08:27 | Health | | | | | SEDIMENT | | System - | | | | | | | [place] | | | | + + + + + + + | BACTERIA | 2021-01-26 | [facility] | 3 | /hpf | (missing) | | (#/HPF) IN | 08:27 | Health | | | | | URINE | | System - | | | | | | | [place] | | | | + + + + + + + | PH OF URINE | 2021-01-26 | [facility] | 5.0 | (missing) | (missing) | | | 08:27 | Health | | | | | | | System - | | | | | | | [place] | | | | + + + + + + + | CLARITY OF | 2021-01-26 | [facility] | Cloudy | (missing) | (missing) | | URINE | 08:27 | Health | | | | | | | System - | | | | | | | [place] | | | | + + + + + + + | ASA | 2021-01-26 | [facility] | Negative | (missing) | (missing) | | (ASCORBIC | 08:27 | Health | | | | | ACID) IN | | System - | | | | | URINE | | [place] | | | | + + + + + + + | GLUCOSE IN | 2021-01-26 | [facility] | Negative | (missing) | (missing) | | URINE | 08:27 | Health | | | | | | | System - | | | | | | | [place] | | | | + + + + + + + | NITRITE | 2021-01-26 | [facility] | Negative | (missing) | (missing) | | PRESENCE IN | 08:27 | Health | | | | | URINE | | System - | | | | | | | [place] | | | | + + + + + + + | HEMOGLOBIN | 2021-01-26 | [facility] | Negative | (missing) | (missing) | | PRESENCE IN | 08:27 | Health | | | | | URINE | | System - | | | | | | | [place] | | | | + + + + + + + | URINE | 2021-01-26 | [facility] | Normal | (missing) | (missing) | | CULTURE | 08:27 | Health | urogenital | | | | | | System - | microbiota | | | | | | [place] | | | | + + + + + + + | URINE | 2021-01-26 | [facility] | Normal | (missing) | (missing) | | CULTURE | 08:27 | Health | urogenital | | | | | | System - | microbiota | | | | | | [place] | | | | + + + + + + + | BILIRUBIN, | 2021-01-26 | [facility] | Positive | (missing) | (missing) | | TOTAL | 08:27 | Health | | | | | PRESENCE IN | | System - | | | | | URINE | | [place] | | | | + + + + + + + | MUCUS | 2021-01-26 | [facility] | Trace | (missing) | (missing) | | (#/HPF) IN | 08:27 | Health | | | | | URINE | | System - | | | | | SEDIMENT | | [place] | | | | + + + + + + + | KETONES IN | 2021-01-26 | [facility] | Trace | (missing) | (missing) | | URINE | 08:27 | Health | | | | | | | System - | | | | | | | [place] | | | | + + + + + + + | LEUKOCYTE | 2021-01-26 | [facility] | Trace | (missing) | (missing) | | ESTERASE | 08:27 | Health | | | | | PRESENCE IN | | System - | | | | | URINE BY | | [place] | | | | | TEST STRIP | | | | | | + + + + + + + | COLOR OF | 2021-01-26 | [facility] | Yellow | (missing) | (missing) | | URINE | 08:27 | Health | | | | | | | System - | | | | | | | [place] | | | | + + + [...] | | | | COUNT | | [place] | | | | + + + + + + + | NRBC/100 | 2021-02-07 | [facility] | 0.0 | % | (missing) | | WBCS BY | 09:40 | Health | | | | | AUTOMATED | | System - | | | | | COUNT | | [place] | | | | + + + + + + + | | 2021-02-07 | [facility] | 0.0 | k/mcl | (missing) | | NRBC(10*3/UL | 09:40 | Health | | | | | ) IN BLOOD | | System - | | | | | BY AUTOMATED | | [place] | | | | | COUNT | | | | | | + + + + + + + | | 2021-02-07 | [facility] | 0.0 | k/mcl | (missing) | | NRBC(10*3/UL | 09:40 | Health | | | | | ) IN BLOOD | | System - | | | | | BY AUTOMATED | | [place] | | | | | COUNT | | | | | | + + + + + + + | IMMATURE | 2021-02-07 | [facility] | 0.03 | k/mcl | (missing) | | GRANULOCYTE | 09:40 | Health | | | | | (ABS) | | System - | | | | | | | [place] | | | | + + + + + + + | IMMATURE | 2021-02-07 | [facility] | 0.03 | k/mcl | (missing) | | GRANULOCYTE | 09:40 | Health | | | | | (ABS) | | System - | | | | | | | [place] | | | | + + + + + + + | BASOPHILS | 2021-02-07 | [facility] | 0.1 | k/mcl | (missing) | | (10*3/UL) IN | 09:40 | Health | | | | | BLOOD BY | | System - | | | | | AUTOMATED | | [place] | | | | | COUNT | | | | | | + + + + + + + | BASOPHILS | 2021-02-07 | [facility] | 0.1 | k/mcl | (missing) | | (10*3/UL) IN | 09:40 | Health | | | | | BLOOD BY | | System - | | | | | AUTOMATED | | [place] | | | | | COUNT | | | | | | + + + + + + + | EOSINOPHILS | 2021-02-07 | [facility] | 0.2 | k/mcl | (missing) | | (10*3/UL) | 09:40 | Health | | | | | IN BLOOD BY | | System - | | | | | AUTOMATED | | [place] | | | | | COUNT | | | | | | + + + + + + + | EOSINOPHILS | 2021-02-07 | [facility] | 0.2 | k/mcl | (missing) | | (10*3/UL) | 09:40 | Health | | | | | IN BLOOD BY | | System - | | | | | AUTOMATED | | [place] | | | | | COUNT | | | | | | + + + + + + + | IMMATURE | 2021-02-07 | [facility] | 0.3 | % | (missing) | | GRANULOCYTE | 09:40 | Health | | | | | % (AUTO) | | System - | | | | | | | [place] | | | | + + + + + + + | IMMATURE | 2021-02-07 | [facility] | 0.3 | % | (missing) | | GRANULOCYTE | 09:40 | Health | | | | | % (AUTO) | | System - | | | | | | | [place] | | | | + + + + + + + | D-DIMER, | 2021-02-07 | [facility] | 0.48 | mcg/ml feu | (missing) | | QUANTITATIVE | 09:40 | Health | | | | | (MCG/ML) | | System - | | | | | ST[facility]O | | [place] | | | | + + + + + + + | D-DIMER, | 2021-02-07 | [facility] | 0.48 | mcg/ml feu | (missing) | | QUANTITATIVE | 09:40 | Health | | | | | (MCG/ML) | | System - | | | | | STAGO | | [place] | | | | + + + + + + + | | 2021-02-07 | [facility] | 0.5 | % | (missing) | | BASOPHILS/10 | 09:40 | Health | | | | | 0 LEUKOCYTES | | System - | | | | | IN BLOOD BY | | [place] | | | | | AUTOMATED | [...] | | IN BLOOD BY | | [place] | | | | | AUTOMATED | [...] | | | | AUTOMATED | | [place] | | | | | COUNT | | | | | | + + + + + + + | MONOCYTES | 2021-02-07 | [facility] | 0.5 | k/mcl | (missing) | | (10*3/UL) IN | 09:40 | Health | | | | | BLOOD BY | | System - | | | | | AUTOMATED | | [place] | | | | | COUNT | | | | | | + + + + + + + | LACTIC ACID | 2021-02-07 | [facility] | 1.3 | mmol/l | (missing) | | (LACTATE) | 09:40 | Health | | | | | (MMOL/L) IN | | System - | | | | | BLOOD | | [place] | | | | + + + + + + + | LACTIC ACID | 2021-02-07 | [facility] | 1.3 | mmol/l | (missing) | | (LACTATE) | 09:40 | Health | | | | | (MMOL/L) IN | | System - | | | | | BLOOD | | [place] | | | | + + + + + + + | | 2021-02-07 | [facility] | 1.7 | % | (missing) | | EOSINOPHILS/ | 09:40 | Health | | | | | 100 | | System - | | | | | LEUKOCYTES | | [place] | | | | | IN BLOOD [...] | | | | LEUKOCYTES | | [place] | | | | | IN BLOOD [...] | | | BLOOD BY | | [place] | | | | | AUTOMATED | [...] | | | BLOOD BY | | [place] | | | | | AUTOMATED | [...] | | | | WIDTH | | [place] | | | | | (RATIO) BY [...] | | | | WIDTH | | [place] | | | | | (RATIO) BY [...] | | | | | | | [place] | | | | + + + + + + + | HEMOGLOBIN | 2021-02-07 | [facility] | 14.4 | g/dl | (missing) | | (G/DL) IN | 09:40 | Health | | | | | BLOOD | | System - | | | | | | | [place] | | | | + + + + + + + | LDH | 2021-02-07 | [facility] | 184 | u/l | (missing) | | (LACTATE | 09:40 | Health | | | | | DEHYDROGENAS | | System - | | | | | E) (U/L) IN | | [place] | | | | | SER/PLAS | [...] | | E) (U/L) IN | | [place] | | | | | SER/PLAS | [...] | | | | LEUKOCYTES | | [place] | | | | | IN BLOOD [...] | | | | LEUKOCYTES | | [place] | | | | | IN BLOOD [...] | | | | AUTOMATED | | [place] | | | | | COUNT | | | | | | + + + + + + + | LYMPHOCYTES | 2021-02-07 | [facility] | 2.1 | k/mcl | (missing) | | (10*3/UL) | 09:40 | Health | | | | | IN BLOOD BY | | System - | | | | | AUTOMATED | | [place] | | | | | COUNT | | | | | | + + + + + + + | ERYTHROCYTE | 2021-02-07 | [facility] | 29.3 | pg | (missing) | | MEAN | 09:40 | Health | | | | | CORPUSCULAR | | System - | | | | | HEMOGLOBIN | | [place] | | | | | (PG) BY [...] | | | | HEMOGLOBIN | | [place] | | | | | (PG) BY [...] | | | | HEMOGLOBIN | | [place] | | | | | CONCENTRATIO | [...] | | | | HEMOGLOBIN | | [place] | | | | | CONCENTRATIO | [...] | | | | AUTOMATED | | [place] | | | | | COUNT | | | | | | + + + + + + + | PLATELETS | 2021-02-07 | [facility] | 366 | k/mcl | (missing) | | (10*3/UL) IN | 09:40 | Health | | | | | BLOOD | | System - | | | | | AUTOMATED | | [place] | | | | | COUNT | | | | | | + + + + + + + | | 2021-02-07 | [facility] | 4.5 | % | (missing) | | MONOCYTES/10 | 09:40 | Health | | | | | 0 LEUKOCYTES | | System - | | | | | IN BLOOD BY | | [place] | | | | | AUTOMATED | [...] | | IN BLOOD BY | | [place] | | | | | AUTOMATED | [...] | | IN BLOOD BY | | [place] | | | | | AUTOMATED | [...] | | IN BLOOD BY | | [place] | | | | | AUTOMATED | [...] | | | | AUTOMATED | | [place] | | | | | COUNT | | | | | | + + + + + + + | HEMATOCRIT | 2021-02-07 | [facility] | 44.2 | % | (missing) | | (%) IN BLOOD | 09:40 | Health | | | | | BY | | System - | | | | | AUTOMATED | | [place] | | | | | COUNT | | | | | | + + + + + + + | NEUTROPHILS | 2021-02-07 | [facility] | 7.8 | k/mcl | (missing) | | (10*3/UL) | 09:40 | Health | | | | | IN BLOOD BY | | System - | | | | | AUTOMATED | | [place] | | | | | COUNT | | | | | | + + + + + + + | NEUTROPHILS | 2021-02-07 | [facility] | 7.8 | k/mcl | (missing) | | (10*3/UL) | 09:40 | Health | | | | | IN BLOOD BY | | System - | | | | | AUTOMATED | | [place] | | | | | COUNT | | | | | | + + + + + + + | | 2021-02-07 | [facility] | 73.3 | % | (missing) | | NEUTROPHILS/ | 09:40 | Health | | | | | 100 | | System - | | | | | LEUKOCYTES | | [place] | | | | | IN BLOOD [...] | | | | LEUKOCYTES | | [place] | | | | | IN BLOOD [...] | | | VOLUME (FL) | | [place] | | | | | BY AUTOMATED [...] | | | VOLUME (FL) | | [place] | | | | | BY AUTOMATED [...] | | | BLOOD BY | | [place] | | | | | AUTOMATED | [...] | | | BLOOD BY | | [place] | | | | | AUTOMATED | [...] | | | | | | | [place] | | | | + + + + + + + | BLOOD | 2021-02-07 | [facility] | No growth | (missing) | (missing) | | CULTURE | 09:40 | Health | at 24 hours | | | | | | System - | | | | | | | [place] | | | | + + + + + + + | BLOOD | 2021-02-07 | [facility] | No growth | (missing) | (missing) | | CULTURE | 09:40 | Health | at 3 days | | | | | | System - | | | | | | | [place] | | | | + + + + + + + | BLOOD | 2021-02-07 | [facility] | No growth | (missing) | (missing) | | CULTURE | 09:40 | Health | at 3 days | | | | | | System - | | | | | | | [place] | | | | + + + + + + + | BLOOD | 2021-02-07 | [facility] | No growth | (missing) | (missing) | | CULTURE | 09:40 | Health | at 4 days | | | | | | System - | | | | | | | [place] | | | | + + + + + + + | BLOOD | 2021-02-07 | [facility] | No growth | (missing) | (missing) | | CULTURE | 09:40 | Health | at 4 days | | | | | | System - | | | | | | | [place] | | | | + + + + + + + | BLOOD | 2021-02-07 | [facility] | No growth | (missing) | (missing) | | CULTURE | 09:40 | Health | at 48 hours | | | | | | System - | | | | | | | [place] | | | | + + + + + + + | BLOOD | 2021-02-07 | [facility] | No growth | (missing) | (missing) | | CULTURE | 09:40 | Health | at 48 hours | | | | | | System - | | | | | | | [place] | | | | + + + + + + + | BLOOD | 2021-02-07 | [facility] | No growth | (missing) | (missing) | | CULTURE | 09:40 | Health | at 5 days | | | | | | System - | | | | | | | [place] | | | | + + + + + + + | BLOOD | 2021-02-07 | [facility] | No growth | (missing) | (missing) | | CULTURE | 09:40 | Health | at 5 days | | | | | | System - | | | | | | | [place] | | | | + + + + + + + | BLOOD | 2021-02-07 | [facility] | No growth | (missing) | (missing) | | CULTURE | 09:40 | Health | to date | | | | | | System - | | | | | | | [place] | | | | + + + + + + + | BLOOD | 2021-02-07 | [facility] | No growth | (missing) | (missing) | | CULTURE | 09:40 | Health | to date | | | | | | System - | | | | | | | [place] | | | | + + + + + + + + + | Result panel 26 | + + + + + + + + + | | 2021-02-07 | [facility] | (missing) | (missing) | (missing) | | (unavailable | 09:41 | Health | | | | | ) | | System - | | | | | | | [place] | | | | + + + + + + + | ALCOHOL | 2021-02-07 | [facility] | < | g/dl | (missing) | | (G/DL) IN | 09:41 | Health | | | | | SER/PLAS | | System - | | | | | | | [place] | | | | + + + + + + + | ALCOHOL | 2021-02-07 | [facility] | < | g/dl | (missing) | | (G/DL) IN | 09:41 | Health | | | | | SER/PLAS | | System - | | | | | | | [place] | | | | + + + + + + + | TSH | 2021-02-07 | [facility] | 1.26 | mciu/ml | (missing) | | (THYROTROPIN | 09:41 | Health | | | | | ) (UIU/ML) | | System - | | | | | IN SER/PLAS | | [place] | | | | + + + + + + + | TSH | 2021-02-07 | [facility] | 1.26 | mciu/ml | (missing) | | (THYROTROPIN | 09:41 | Health | | | | | ) (UIU/ML) | | System - | | | | | IN SER/PLAS | | [place] | | | | + + + + + + + | | 2021-02-07 | [facility] | 7 | (missing) | (missing) | | (unavailable | 09:41 | Health | | | | | ) | | System - | | | | | | | [place] | | | | + + + + + + + | | 2021-02-07 | [facility] | BONES: The | (missing) | (missing) | | (unavailable | 09:41 | Health | osseous | | | | ) | | System - | structures | | | | | | [place] | are | | | | | [...] normal | | | | | | [place] | limits. | | | + + + + + + + | | 2021-02-07 | [facility] | CEREBELLUM: | (missing) | (missing) | | (unavailable | 09:41 | Health | Within | | | | ) | | System - | normal | | | | | | [place] | limits. | | | + + + + + + + | | 2021-02-07 | [facility] | CEREBRUM: No | (missing) | (missing) | | (unavailable | 09:41 | Health | mass, mass | | | | ) | | System - | effect, | | | | | | [place] | shift of the | | | [...] | | | | | | | [place] | | | | + + + + + + + | | 2021-02-07 | [facility] | COMPARISON: | (missing) | (missing) | | (unavailable | 09:41 | Health | None. | | | | ) | | System - | | | | | | | [place] | | | | + + + + + + + | | 2021-02-07 | [facility] | Clear | (missing) | (missing) | | (unavailable | 09:41 | Health | lungs. | | | | ) | | System - | | | | | | | [place] | | | | + + + + + + + | | 2021-02-07 | [facility] | EXTRA-AXIAL | (missing) | (missing) | | (unavailable | 09:41 | Health | SPACES: No | | | | ) | | System - | acute | | | | | | [place] | abnormal | | | | | [...] Jeremiah | | | | | | [place] | MD Lenora | | | | | | | on | | | | | | | 02/07/2021 | | | | | | | 10:15 AM at | | | | | | | workstation | | | | | | | [id number] | | | + + + + + + + | | 2021-02-07 | [facility] | Electronical | (missing) | (missing) | | (unavailable | 09:41 | Health | ly signed | | | | ) | | System - | by: Malachi | | | | | | [place] | MD Jose Miguel on | | | | | | [...] | | | | | | | [place] | | | | + + + + + + + | | 2021-02-07 | [facility] | HEART: The | (missing) | (missing) | | (unavailable | 09:41 | Health | heart is | | | | ) | | System - | likely | | | | | | [place] | normal in | | | | | | | size. | | | + + + + + + + | | 2021-02-07 | [facility] | INDICATION: | (missing) | (missing) | | (unavailable | 09:41 | Health | covid, | | | | ) | | System - | weakness | | | | | | [place] | | | | + + + + + + + | | 2021-02-07 | [facility] | | (missing) | (missing) | | (unavailable | 09:41 | Health | INDICATIONS: | | | | ) | | System - | Mental | | | | | | [place] | status | | | | | [...] from | | | | | | [place] | consolidatio | | | | | | | n. | | | + + + + + + + | | 2021-02-07 | [facility] | | (missing) | (missing) | | (unavailable | 09:41 | Health | MEDIASTINUM: | | | | ) | | System - | Grossly | | | | | | [place] | preserved | | | | | [...] | | | URINE BY | | [place] | | | | | SCREEN | [...] | | | | (PRESENCE) | | [place] | | | | | IN URINE [...] | | | | SCREEN | | [place] | | | | | METHOD | | | | | | + + + + + + + | METHADONE | 2021-02-07 | [facility] | Negative | (missing) | (missing) | | (PRESENCE) | 09:41 | Health | | | | | IN URINE BY | | System - | | | | | SCREEN | | [place] | | | | | METHOD | | | | | | + + + + + + + | OPIATES | 2021-02-07 | [facility] | Negative | (missing) | (missing) | | (PRESENCE) | 09:41 | Health | | | | | IN URINE BY | | System - | | | | | SCREEN | | [place] | | | | | METHOD | | | | | | + + + + + + + | OXYCODONE | 2021-02-07 | [facility] | Negative | (missing) | (missing) | | (PRESENCE) | 09:41 | Health | | | | | IN URINE BY | | System - | | | | | SCREEN | | [place] | | | | | METHOD | | | | | | + + + + + + + | | 2021-02-07 | [facility] | Negative | (missing) | (missing) | | PHENCYCLIDIN | 09:41 | Health | | | | | E (PRESENCE) | | System - | | | | | IN URINE BY | | [place] | | | | | SCREEN | [...] | | | BY SCREEN | | [place] | | | | | METHOD | | | | | | + + + + + + + | TRICYCLIC | 2021-02-07 | [facility] | Negative | (missing) | (missing) | | ANTIDEPRESSA | 09:41 | Health | | | | | NTS | | System - | | | | | (PRESENCE) | | [place] | | | | | IN URINE | | | | | | + + + + + + + | | 2021-02-07 | [facility] | Negative | (missing) | (missing) | | PHENCYCLIDIN | 09:41 | Health | | | | | E (PRESENCE) | | System - | | | | | IN URINE BY | | [place] | | | | | SCREEN | [...] | | | BY SCREEN | | [place] | | | | | METHOD | | | | | | + + + + + + + | OPIATES | 2021-02-07 | [facility] | Negative | (missing) | (missing) | | (PRESENCE) | 09:41 | Health | | | | | IN URINE BY | | System - | | | | | SCREEN | | [place] | | | | | METHOD | | | | | | + + + + + + + | TRICYCLIC | 2021-02-07 | [facility] | Negative | (missing) | (missing) | | ANTIDEPRESSA | 09:41 | Health | | | | | NTS | | System - | | | | | (PRESENCE) | | [place] | | | | | IN URINE | | | | | | + + + + + + + | OXYCODONE | 2021-02-07 | [facility] | Negative | (missing) | (missing) | | (PRESENCE) | 09:41 | Health | | | | | IN URINE BY | | System - | | | | | SCREEN | | [place] | | | | | METHOD | | | | | | + + + + + + + | COCAINE | 2021-02-07 | [facility] | Negative | (missing) | (missing) | | (PRESENCE) | 09:41 | Health | | | | | IN URINE BY | | System - | | | | | SCREEN | | [place] | | | | | METHOD | | | | | | + + + + + + + | | 2021-02-07 | [facility] | Negative | (missing) | (missing) | | BARBITURATES | 09:41 | Health | | | | | PRESENCE IN | | System - | | | | | URINE BY | | [place] | | | | | SCREEN | [...] | | | | (PRESENCE) | | [place] | | | | | IN URINE BY | | | | | | | SCREEN | | | | | | | METHOD | | | | | | + + + + + + + | METHADONE | 2021-02-07 | [facility] | Negative | (missing) | (missing) | | (PRESENCE) | 09:41 | Health | | | | | IN URINE BY | | System - | | | | | SCREEN | | [place] | | | | | METHOD | | | | | | + + + + + + + | | 2021-02-07 | [facility] | No CT | (missing) | (missing) | | (unavailable | 09:41 | Health | evidence of | | | | ) | | System - | acute | | | | | | [place] | intracranial | | | | | [...] are | | | | | | [facility] | unremarkable | | | | | | | . | | | + + + + + + + | | 2021-02-07 | [facility] | PLEURAL | (missing) | (missing) | | (unavailable | 09:41 | Health | SPACES: No | | | | ) | | System - | pleural | | | | | | [place] | effusion or | | | | [...] VIEW | | | | | | [place] | | | | + + + + + + + | | 2021-02-07 | [facility] | PROCEDURE: | (missing) | (missing) | | (unavailable | 09:41 | Health | CT BRAIN | | | | ) | | System - | WITHOUT | | | | | | [place] | CONTRAST | | | + + + + + + + | | 2021-02-07 | [facility] | Presumptive | (missing) | (missing) | | [facility] | 09:41 | Health | Positive | | | | INE | | System - | | | | | (PRESENCE) | | [place] | | | | | IN URINE [...] | | | | SCREEN | | [place] | | | | | METHOD | | | | | | + + + + + + + | | 2021-02-07 | [facility] | Presumptive | (missing) | (missing) | | [facility] | 09:41 | Health | Positive | | | | INE | | System - | | | | | (PRESENCE) | | [place] | | | | | IN URINE [...] | | | | SCREEN | | [place] | | | | | METHOD | | | | | | + + + + + + + | | 2021-02-07 | [facility] | | (missing) | (missing) | | (unavailable | 09:41 | Health | Procedure(s) | | | | ) | | System - | : * No | | | | | | [place] | procedures | | | | | | | listed * | | | + + + + + + + | | 2021-02-07 | [facility] | SINUSES: | (missing) | (missing) | | (unavailable | 09:41 | Health | Visualized | | | | ) | | System - | paranasal | | | | | | [place] | sinuses are | | | | [...] calvarial | | | | | | [place] | abnormality. | | | | | | | | | | + + + + + + + | | 2021-02-07 | [facility] | SOFT | (missing) | (missing) | | (unavailable | 09:41 | Health | TISSUES: | | | | ) | | System - | Visualized | | | | | | [place] | extracranial | | | | | [...] None. | | | | | | [place] | | | | + + + + + + + | | 2021-02-07 | [facility] | TECHNIQUE: | (missing) | (missing) | | (unavailable | 09:41 | Health | Thin-section | | | | ) | | System - | images were | | | | | | [place] | obtained at | | | | [...] and | | | | | | [place] | configuratio | | | | | [...] | | | | | | | [place] | | | | + + + + + + + | BLOOD | 2021-02-07 | [facility] | No growth | (missing) | (missing) | | CULTURE | 09:56 | Health | at 24 hours | | | | | | System - | | | | | | | [place] | | | | + + + + + + + | BLOOD | 2021-02-07 | [facility] | No growth | (missing) | (missing) | | CULTURE | 09:56 | Health | at 3 days | | | | | | System - | | | | | | | [place] | | | | + + + + + + + | BLOOD | 2021-02-07 | [facility] | No growth | (missing) | (missing) | | CULTURE | 09:56 | Health | at 3 days | | | | | | System - | | | | | | | [place] | | | | + + + + + + + | BLOOD | 2021-02-07 | [facility] | No growth | (missing) | (missing) | | CULTURE | 09:56 | Health | at 4 days | | | | | | System - | | | | | | | [place] | | | | + + + + + + + | BLOOD | 2021-02-07 | [facility] | No growth | (missing) | (missing) | | CULTURE | 09:56 | Health | at 4 days | | | | | | System - | | | | | | | [place] | | | | + + + + + + + | BLOOD | 2021-02-07 | [facility] | No growth | (missing) | (missing) | | CULTURE | 09:56 | Health | at 48 hours | | | | | | System - | | | | | | | [place] | | | | + + + + + + + | BLOOD | 2021-02-07 | [facility] | No growth | (missing) | (missing) | | CULTURE | 09:56 | Health | at 48 hours | | | | | | System - | | | | | | | [place] | | | | + + + + + + + | BLOOD | 2021-02-07 | [facility] | No growth | (missing) | (missing) | | CULTURE | 09:56 | Health | at 5 days | | | | | | System - | | | | | | | [place] | | | | + + + + + + + | BLOOD | 2021-02-07 | [facility] | No growth | (missing) | (missing) | | CULTURE | 09:56 | Health | at 5 days | | | | | | System - | | | | | | | [place] | | | | + + + + + + + | BLOOD | 2021-02-07 | [facility] | No growth | (missing) | (missing) | | CULTURE | 09:56 | Health | to date | | | | | | System - | | | | | | | [place] | | | | + + + + + + + | BLOOD | 2021-02-07 | [facility] | No growth | (missing) | (missing) | | CULTURE | 09:56 | Health | to date | | | | | | System - | | | | | | | [place] | | | | + + + + + + + + + | Result panel 28 | + + + + + + + + + | POCT [id number] | 2021-02-07 | [facility] | (missing) | (missing) | (missing) | | | 10:05 | Health | | | | | | | System - | | | | | | | [place] | | | | + + + + + + + | POCT LPM | 2021-02-07 | [facility] | (missing) | (missing) | (missing) | | FLOW | 10:05 | Health | | | | | | | System - | | | | | | | [place] | | | | + + + + + + + | POCT PCO2 | 2021-02-07 | [facility] | (missing) | (missing) | (missing) | | (CALC) TEMP | 10:05 | Health | | | | | CORRECTED | | System - | | | | | BLOOD VENOUS | | [place] | | | | | | | | | | | + + + + + + + | POCT PH, | 2021-02-07 | [facility] | (missing) | (missing) | (missing) | | (CALC) TEMP | 10:05 | Health | | | | | CORRECTED | | System - | | | | | BLOOD VENOUS | | [place] | | | | | | | | | | | + + + + + + + | POCT PO2 | 2021-02-07 | [facility] | (missing) | (missing) | (missing) | | (CALC) TEMP | 10:05 | Health | | | | | CORRECTED | | System - | | | | | BLOOD VENOUS | | [place] | | | | | | | | | | | + + + + + + + | POCT | 2021-02-07 | [facility] | (missing) | (missing) | (missing) | | TEMPERATURE | 10:05 | Health | | | | | | | System - | | | | | | | [place] | | | | + + + + + + + | POCT FIO2 | 2021-02-07 | [facility] | (missing) | (missing) | (missing) | | | 10:05 | Health | | | | | | | System - | | | | | | | [place] | | | | + + + + + + + | POCT LPM | 2021-02-07 | [facility] | (missing) | (missing) | (missing) | | FLOW | 10:05 | Health | | | | | | | System - | | | | | | | [place] | | | | + + + + + + + | POCT | 2021-02-07 | [facility] | (missing) | (missing) | (missing) | | TEMPERATURE | 10:05 | Health | | | | | | | System - | | | | | | | [place] | | | | + + + + + + + | EGFR | 2021-02-07 | [facility] | > | | (missing) | | (GLOMERULAR | 10:05 | Health | | ml/min/1.73m | | | FILTRATION | | System - | | ? | | | RATE) | | [place] | | | | | ML/MIN/1.73 | [...] ? | | | RATE) | | [place] | | | | | ML/MIN/1.73 | [...] | | | | SER/PLAS | | [place] | | | | + + + + + + + | | 2021-02-07 | [facility] | < | mcg/ml | (missing) | | ACETAMINOPHE | 10:05 | Health | | | | | N (UG/ML) IN | | System - | | | | | SER/PLAS | | [place] | | | | + + + + + + + | SALICYLATE | 2021-02-07 | [facility] | < | mg/dl | (missing) | | (MG/DL) IN | 10:05 | Health | | | | | SER/PLAS | | System - | | | | | | | [place] | | | | + + + + + + + | C REACTIVE | 2021-02-07 | [facility] | < | mg/dl | (missing) | | PROTEIN | 10:05 | Health | | | | | (MG/DL) IN | | System - | | | | | SER/PLAS | | [place] | | | | + + + + + + + | C REACTIVE | 2021-02-07 | [facility] | < | mg/dl | (missing) | | PROTEIN | 10:05 | Health | | | | | (MG/DL) IN | | System - | | | | | SER/PLAS | | [place] | | | | + + + + + + + | SALICYLATE | 2021-02-07 | [facility] | < | mg/dl | (missing) | | (MG/DL) IN | 10:05 | Health | | | | | SER/PLAS | | System - | | | | | | | [place] | | | | + + + + + + + | TROPONIN T | 2021-02-07 | [facility] | < | ng/ml | (missing) | | CARDIAC | 10:05 | Health | | | | | (NG/ML) IN | | System - | | | | | SER/PLAS | | [place] | | | | + + + + + + + | TROPONIN T | 2021-02-07 | [facility] | < | ng/ml | (missing) | | CARDIAC | 10:05 | Health | | | | | (NG/ML) IN | | System - | | | | | SER/PLAS | | [place] | | | | + + + + + + + | | 2021-02-07 | [facility] | 0.04 | ng/ml | (missing) | | PROCALCITONI | 10:05 | Health | | | | | N | | System - | | | | | | | [place] | | | | + + + + + + + | | 2021-02-07 | [facility] | 0.04 | ng/ml | (missing) | | PROCALCITONI | 10:05 | Health | | | | | N | | System - | | | | | | | [place] | | | | + + + + + + + | BILIRUBIN | 2021-02-07 | [facility] | 0.3 | mg/dl | (missing) | | TOTAL | 10:05 | Health | | | | | (MG/DL) IN | | System - | | | | | SER/PLAS | | [place] | | | | + + + + + + + | BILIRUBIN | 2021-02-07 | [facility] | 0.3 | mg/dl | (missing) | | TOTAL | 10:05 | Health | | | | | (MG/DL) IN | | System - | | | | | SER/PLAS | | [place] | | | | + + + + + + + | CREATININE | 2021-02-07 | [facility] | 0.6 | mg/dl | (missing) | | (MG/DL) IN | 10:05 | Health | | | | | SER/PLAS | | System - | | | | | | | [place] | | | | + + + + + + + | CREATININE | 2021-02-07 | [facility] | 0.6 | mg/dl | (missing) | | (MG/DL) IN | 10:05 | Health | | | | | SER/PLAS | | System - | | | | | | | [place] | | | | + + + + + + + | POCT BASE | 2021-02-07 | [facility] | 1.0 | mmol/l | (missing) | | EXCESS CALC | 10: | Health | | | | | BLOOD VENOUS | | System - | | | | | | | [place] | | | | + + + + + + + | | 2021-02-07 | [facility] | 1.63 | :1 | (missing) | | ALBUMIN/GLOB | 10:05 | Health | | | | | ULIN (A/G | | System - | | | | | RATIO) IN | | [place] | | | | | SER/PLAS | | | | | | + + + + + + + | | 2021-02-07 | [facility] | 1.63 | :1 | (missing) | | ALBUMIN/GLOB | 10:05 | Health | | | | | ULIN (A/G | | System - | | | | | RATIO) IN | | [place] | | | | | SER/PLAS | | | | | | + + + + + + + | ANION GAP | 2021-02-07 | [facility] | 10.0 | mmol/l | (missing) | | IN SER/PLAS | 10:05 | Health | | | | | | | System - | | | | | | | [place] | | | | + + + + + + + | ANION GAP | 2021-02-07 | [facility] | 10.0 | mmol/l | (missing) | | IN SER/PLAS | 10:05 | Health | | | | | | | System - | | | | | | | [place] | | | | + + + + + + + | CHLORIDE | 2021-02-07 | [facility] | 106 | mmol/l | (missing) | | (MMOL/L) IN | 10:05 | Health | | | | | SER/PLAS | | System - | | | | | | | [place] | | | | + + + + + + + | CHLORIDE | 2021-02-07 | [facility] | 106 | mmol/l | (missing) | | (MMOL/L) IN | 10: | Health | | | | | SER/PLAS | | System - | | | | | | | [place] | | | | + + + + + + + | SODIUM | 2021-02-07 | [facility] | 139 | mmol/l | (missing) | | (MMOL/L) IN | 10:05 | Health | | | | | SER/PLAS | | System - | | | | | | | [place] | | | | + + + + + + + | SODIUM | 2021-02-07 | [facility] | 139 | mmol/l | (missing) | | (MMOL/L) IN | 10:05 | Health | | | | | SER/PLAS | | System - | | | | | | | [place] | | | | + + + + + + + | ASPARTATE | 2021-02-07 | [facility] | 16 | u/l | (missing) | | AMINOTRANSFE | 10:05 | Health | | | | | RASE (SGOT) | | System - | | | | | (U/L) IN | | [place] | | | | | SER/PLAS | | | | | | + + + + + + + | ASPARTATE | 2021-02-07 | [facility] | 16 | u/l | (missing) | | AMINOTRANSFE | 10:05 | Health | | | | | RASE (SGOT) | | System - | | | | | (U/L) IN | | [place] | | | | | SER/PLAS | | | | | | + + + + + + + | GLOBULIN | 2021-02-07 | [facility] | 2.4 | g/dl | (missing) | | (G/DL) IN | 10:05 | Health | | | | | SER/PLAS | | System - | | | | | | | [place] | | | | + + + + + + + | GLOBULIN | 2021-02-07 | [facility] | 2.4 | g/dl | (missing) | | (G/DL) IN | 10:05 | Health | | | | | SER/PLAS | | System - | | | | | | | [place] | | | | + + + + + + + | CARBON | 2021-02-07 | [facility] | 23 | mmol/l | (missing) | | DIOXIDE | 10:05 | Health | | | | | (CO2), TOTAL | | System - | | | | | (MMOL/L) IN | | [place] | | | | | SER/PLAS | | | | | | + + + + + + + | CARBON | 2021-02-07 | [facility] | 23 | mmol/l | (missing) | | DIOXIDE | 10:05 | Health | | | | | (CO2), TOTAL | | System - | | | | | (MMOL/L) IN | | [place] | | | | | SER/PLAS | | | | | | + + + + + + + | POCT HCO3 | 2021-02-07 | [facility] | 25 | mmol/l | (missing) | | CALC BLOOD | 10:05 | Health | | | | | VENOUS | | System - | | | | | | | [place] | | | | + + + + + + + | POCT TCO2 | 2021-02-07 | [facility] | 26 | mmol/l | (missing) | | CALC BLOOD | 10:05 | Health | | | | | VENOUS | | System - | | | | | | | [place] | | | | + + + + + + + | ALBUMIN | 2021-02-07 | [facility] | 3.9 | g/dl | (missing) | | (G/DL) IN | 10:05 | Health | | | | | SER/PLAS | | System - | | | | | | | [place] | | | | + + + + + + + | ALBUMIN | 2021-02-07 | [facility] | 3.9 | g/dl | (missing) | | (G/DL) IN | 10:05 | Health | | | | | SER/PLAS | | System - | | | | | | | [place] | | | | + + + + + + + | POCT PCO2 | 2021-02-07 | [facility] | 36 | mm hg | (missing) | | (37C) BLOOD | 10:05 | Health | | | | | VENOUS | | System - | | | | | | | [place] | | | | + + + + + + + | POTASSIUM | 2021-02-07 | [facility] | 4.1 | mmol/l | (missing) | | (MMOL/L) IN | 10:05 | Health | | | | | SER/PLAS | | System - | | | | | | | [place] | | | | + + + + + + + | POTASSIUM | 2021-02-07 | [facility] | 4.1 | mmol/l | (missing) | | (MMOL/L) IN | 10:05 | Health | | | | | SER/PLAS | | System - | | | | | | | [place] | | | | + + + + + + + | POCT PO2 | 2021-02-07 | [facility] | 43 | mm hg | (missing) | | (37C) BLOOD | 10:05 | Health | | | | | VENOUS | | System - | | | | | | | [place] | | | | + + + + + + + | ALKALINE | 2021-02-07 | [facility] | 59 | u/l | (missing) | | PHOSPHATASE | 10:05 | Health | | | | | (U/L) IN | | System - | | | | | SER/PLAS | | [place] | | | | + + + + + + + | ALKALINE | 2021-02-07 | [facility] | 59 | u/l | (missing) | | PHOSPHATASE | 10:05 | Health | | | | | (U/L) IN | | System - | | | | | SER/PLAS | | [place] | | | | + + + + + + + | ALANINE | 2021-02-07 | [facility] | 6 | u/l | (missing) | | AMINOTRANSFE | 10:05 | Health | | | | | RASE (SGPT) | | System - | | | | | (U/L) IN | | [place] | | | | | SER/PLAS | | | | | | + + + + + + + | ALANINE | 2021-02-07 | [facility] | 6 | u/l | (missing) | | AMINOTRANSFE | 10:05 | Health | | | | | RASE (SGPT) | | System - | | | | | (U/L) IN | | [place] | | | | | SER/PLAS | | | | | | + + + + + + + | PROTEIN | 2021-02-07 | [facility] | 6.3 | g/dl | (missing) | | (G/DL) IN | 10:05 | Health | | | | | SER/PLAS | | System - | | | | | | | [place] | | | | + + + + + + + | PROTEIN | 2021-02-07 | [facility] | 6.3 | g/dl | (missing) | | (G/DL) IN | 10:05 | Health | | | | | SER/PLAS | | System - | | | | | | | [place] | | | | + + + + + + + | POCT PH | 2021-02-07 | [facility] | 7.45 | ph | (missing) | | (37C) BLOOD | 10:05 | Health | | | | | VENOUS | | System - | | | | | | | [place] | | | | + + + + + + + | BLOOD UREA | 2021-02-07 | [facility] | 8 | mg/dl | (missing) | | NITROGEN | 10:05 | Health | | | | | (BUN) | | System - | | | | | (MG/DL) IN | | [place] | | | | | SER/PLAS | | | | | | + + + + + + + | BLOOD UREA | 2021-02-07 | [facility] | 8 | mg/dl | (missing) | | NITROGEN | 10:05 | Health | | | | | (BUN) | | System - | | | | | (MG/DL) IN | | [place] | | | | | SER/PLAS | | | | | | + + + + + + + | POCT O2 | 2021-02-07 | [facility] | 82 | % | (missing) | | SATURATION | 10:05 | Health | | | | | CALC BLOOD | | System - | | | | | VENOUS | | [place] | | | | + + + + + + + | FERRITIN | 2021-02-07 | [facility] | 86.1 | ng/ml | (missing) | | (NG/ML) IN | 10:05 | Health | | | | | SER/PLAS | | System - | | | | | | | [place] | | | | + + + + + + + | FERRITIN | 2021-02-07 | [facility] | 86.1 | ng/ml | (missing) | | (NG/ML) IN | 10:05 | Health | | | | | SER/PLAS | | System - | | | | | | | [place] | | | | + + + + + + + | CALCIUM | 2021-02-07 | [facility] | 9.1 | mg/dl | (missing) | | (MG/DL) IN | 10:05 | Health | | | | | SER/PLAS | | System - | | | | | | | [place] | | | | + + + + + + + | CALCIUM | 2021-02-07 | [facility] | 9.1 | mg/dl | (missing) | | (MG/DL) IN | 10:05 | Health | | | | | SER/PLAS | | System - | | | | | | | [place] | | | | + + + + + + + | GLUCOSE, | 2021-02-07 | [facility] | 91 | mg/dl | (missing) | | RANDOM | 10:05 | Health | | | | | (MG/DL) IN | | System - | | | | | SER/PLAS | | [place] | | | | + + + + + + + | GLUCOSE, | 2021-02-07 | [facility] | 91 | mg/dl | (missing) | | RANDOM | 10:05 | Health | | | | | (MG/DL) IN | | System - | | | | | SER/PLAS | | [place] | | | | + + + + + + + | [facility] QUAL | 2021-02-07 | [facility] | Negative | (missing) | (missing) | | (CHORIOGONAD | 10:05 | Health | | | | | OTROPIN) IN | | System - | | | | | SER/PLAS | | [place] | | | | + + + + + + + | [facility] QUAL | 2021-02-07 | [facility] | Negative | (missing) | (missing) | | (CHORIOGONAD | 10:05 | Health | | | | | OTROPIN) IN | | System - | | | | | SER/PLAS | | [place] | | | | + + + [...] ? | | | RATE) | | [place] | | | | | ML/MIN/1.73 | [...] ? | | | RATE) | | [place] | | | | | ML/MIN/1.73 | [...] | | | | COUNT | | [place] | | | | + + + +--------+ + + | NRBC/100 | 2021-03-11 | [facility] | 0.0 | % | (missing) | | WBCS BY | 18:23 | Health | | | | | AUTOMATED | | System - | | | | | COUNT | | [place] | | | | + + + +--------+ + + | | 2021-03-11 | [facility] | 0.0 | k/mcl | (missing) | | NRBC(10*3/UL | 18:23 | Health | | | | | ) IN BLOOD | | System - | | | | | BY AUTOMATED | | [place] | | | | | COUNT | | | | | | + + + +--------+ + + | | 2021-03-11 | [facility] | 0.0 | k/mcl | (missing) | | NRBC(10*3/UL | 18:23 | Health | | | | | ) IN BLOOD | | System - | | | | | BY AUTOMATED | | [place] | | | | | COUNT | | | | | | + + + +--------+ + + | IMMATURE | 2021-03-11 | [facility] | 0.03 | k/mcl | (missing) | | GRANULOCYTE | 18:23 | Health | | | | | (ABS) | | System - | | | | | | | [place] | | | | + + + +--------+ + + | IMMATURE | 2021-03-11 | [facility] | 0.03 | k/mcl | (missing) | | GRANULOCYTE | 18:23 | Health | | | | | (ABS) | | System - | | | | | | | [place] | | | | + + + +--------+ + + | BASOPHILS | 2021-03-11 | [facility] | 0.1 | k/mcl | (missing) | | (10*3/UL) IN | 18:23 | Health | | | | | BLOOD BY | | System - | | | | | AUTOMATED | | [place] | | | | | COUNT | | | | | | + + + +--------+ + + | BASOPHILS | 2021-03-11 | [facility] | 0.1 | k/mcl | (missing) | | (10*3/UL) IN | 18:23 | Health | | | | | BLOOD BY | | System - | | | | | AUTOMATED | | [place] | | | | | COUNT | | | | | | + + + +--------+ + + | EOSINOPHILS | 2021-03-11 | [facility] | 0.2 | k/mcl | (missing) | | (10*3/UL) | 18:23 | Health | | | | | IN BLOOD BY | | System - | | | | | AUTOMATED | | [place] | | | | | COUNT | | | | | | + + + +--------+ + + | EOSINOPHILS | 2021-03-11 | [facility] | 0.2 | k/mcl | (missing) | | (10*3/UL) | 18:23 | Health | | | | | IN BLOOD BY | | System - | | | | | AUTOMATED | | [place] | | | | | COUNT | | | | | | + + + +--------+ + + | IMMATURE | 2021-03-11 | [facility] | 0.3 | % | (missing) | | GRANULOCYTE | 18:23 | Health | | | | | % (AUTO) | | System - | | | | | | | [place] | | | | + + + +--------+ + + | IMMATURE | 2021-03-11 | [facility] | 0.3 | % | (missing) | | GRANULOCYTE | 18:23 | Health | | | | | % (AUTO) | | System - | | | | | | | [place] | | | | + + + +--------+ + + | BILIRUBIN | 2021-03-11 | [facility] | 0.3 | mg/dl | (missing) | | TOTAL | 18:23 | Health | | | | | (MG/DL) IN | | System - | | | | | SER/PLAS | | [place] | | | | + + + +--------+ + + | BILIRUBIN | 2021-03-11 | [facility] | 0.3 | mg/dl | (missing) | | TOTAL | 18:23 | Health | | | | | (MG/DL) IN | | System - | | | | | SER/PLAS | | [place] | | | | + + + +--------+ + + | | 2021-03-11 | [facility] | 0.6 | % | (missing) | | BASOPHILS/10 | 18:23 | Health | | | | | 0 LEUKOCYTES | | System - | | | | | IN BLOOD BY | | [place] | | | | | AUTOMATED | [...] | | IN BLOOD BY | | [place] | | | | | AUTOMATED | [...] | | | | | | | [place] | | | | + + + +--------+ + + | CREATININE | 2021-03-11 | [facility] | 0.7 | mg/dl | (missing) | | (MG/DL) IN | 18:23 | Health | | | | | SER/PLAS | | System - | | | | | | | [place] | | | | + + + +--------+ + + | MONOCYTES | 2021-03-11 | [facility] | 0.8 | k/mcl | (missing) | | (10*3/UL) IN | 18: | Health | | | | | BLOOD BY | | System - | | | | | AUTOMATED | | [place] | | | | | COUNT | | | | | | + + + +--------+ + + | MONOCYTES | 2021-03-11 | [facility] | 0.8 | k/mcl | (missing) | | (10*3/UL) IN | 18: | Health | | | | | BLOOD BY | | System - | | | | | AUTOMATED | | [place] | | | | | COUNT | | | | | | + + + +--------+ + + | | 2021-03-11 | [facility] | 1.87 | :1 | (missing) | | ALBUMIN/GLOB | 18 | Health | | | | | ULIN (A/G | | System - | | | | | RATIO) IN | | [place] | | | | | SER/PLAS | | | | | | + + + +--------+ + + | | 2021-03-11 | [facility] | 1.87 | :1 | (missing) | | ALBUMIN/GLOB | 18:23 | Health | | | | | ULIN (A/G | | System - | | | | | RATIO) IN | | [place] | | | | | SER/PLAS | | | | | | + + + +--------+ + + | | 2021-03-11 | [facility] | 10.1 | k/mcl | (missing) | | LEUKOCYTES(1 | 18:23 | Health | | | | | 0*3/UL) IN | | System - | | | | | BLOOD BY | | [place] | | | | | AUTOMATED | [...] | | | BLOOD BY | | [place] | | | | | AUTOMATED | [...] | | | | | | | [place] | | | | + + + +--------+ + + | CHLORIDE | 2021-03-11 | [facility] | 106 | mmol/l | (missing) | | (MMOL/L) IN | 18:23 | Health | | | | | SER/PLAS | | System - | | | | | | | [place] | | | | + + + +--------+ + + | ANION GAP | 2021-03-11 | [facility] | 11.0 | mmol/l | (missing) | | IN SER/PLAS | 18:23 | Health | | | | | | | System - | | | | | | | [place] | | | | + + + +--------+ + + | ANION GAP | 2021-03-11 | [facility] | 11.0 | mmol/l | (missing) | | IN SER/PLAS | 18:23 | Health | | | | | | | System - | | | | | | | [place] | | | | + + + +--------+ + + | ERYTHROCYTE | 2021-03-11 | [facility] | 12.2 | % | (missing) | | | 18:23 | Health | | | | | DISTRIBUTION | | System - | | | | | WIDTH | | [place] | | | | | (RATIO) BY [...] | | | | WIDTH | | [place] | | | | | (RATIO) BY [...] | | | | SER/PLAS | | [place] | | | | + + + +--------+ + + | GLUCOSE, | 2021-03-11 | [facility] | 129 | mg/dl | (missing) | | RANDOM | 18:23 | Health | | | | | (MG/DL) IN | | System - | | | | | SER/PLAS | | [place] | | | | + + + +--------+ + + | BLOOD UREA | 2021-03-11 | [facility] | 13 | mg/dl | (missing) | | NITROGEN | 18:23 | Health | | | | | (BUN) | | System - | | | | | (MG/DL) IN | | [place] | | | | | SER/PLAS | | | | | | + + + +--------+ + + | BLOOD UREA | 2021-03-11 | [facility] | 13 | mg/dl | (missing) | | NITROGEN | 18:23 | Health | | | | | (BUN) | | System - | | | | | (MG/DL) IN | | [place] | | | | | SER/PLAS | | | | | | + + + +--------+ + + | ALANINE | 2021-03-11 | [facility] | 13 | u/l | (missing) | | AMINOTRANSFE | 18:23 | Health | | | | | RASE (SGPT) | | System - | | | | | (U/L) IN | | [place] | | | | | SER/PLAS | | | | | | + + + +--------+ + + | ALANINE | 2021-03-11 | [facility] | 13 | u/l | (missing) | | AMINOTRANSFE | 18:23 | Health | | | | | RASE (SGPT) | | System - | | | | | (U/L) IN | | [place] | | | | | SER/PLAS | | | | | | + + + +--------+ + + | SODIUM | 2021-03-11 | [facility] | 138 | mmol/l | (missing) | | (MMOL/L) IN | 18:23 | Health | | | | | SER/PLAS | | System - | | | | | | | [place] | | | | + + + +--------+ + + | SODIUM | 2021-03-11 | [facility] | 138 | mmol/l | (missing) | | (MMOL/L) IN | 18:23 | Health | | | | | SER/PLAS | | System - | | | | | | | [place] | | | | + + + +--------+ + + | HEMOGLOBIN | 2021-03-11 | [facility] | 14.4 | g/dl | (missing) | | (G/DL) IN | 18:23 | Health | | | | | BLOOD | | System - | | | | | | | [place] | | | | + + + +--------+ + + | HEMOGLOBIN | 2021-03-11 | [facility] | 14.4 | g/dl | (missing) | | (G/DL) IN | 18:23 | Health | | | | | BLOOD | | System - | | | | | | | [place] | | | | + + + +--------+ + + | ASPARTATE | 2021-03-11 | [facility] | 16 | u/l | (missing) | | AMINOTRANSFE | 18:23 | Health | | | | | RASE (SGOT) | | System - | | | | | (U/L) IN | | [place] | | | | | SER/PLAS | | | | | | + + + +--------+ + + | ASPARTATE | 2021-03-11 | [facility] | 16 | u/l | (missing) | | AMINOTRANSFE | 18:23 | Health | | | | | RASE (SGOT) | | System - | | | | | (U/L) IN | | [place] | | | | | SER/PLAS | | | | | | + + + +--------+ + + | | 2021-03-11 | [facility] | 2.0 | % | (missing) | | EOSINOPHILS/ | 18:23 | Health | | | | | 100 | | System - | | | | | LEUKOCYTES | | [place] | | | | | IN BLOOD [...] | | | | LEUKOCYTES | | [place] | | | | | IN BLOOD [...] | | | | | | | [place] | | | | + + + +--------+ + + | GLOBULIN | 2021-03-11 | [facility] | 2.3 | g/dl | (missing) | | (G/DL) IN | 18:23 | Health | | | | | SER/PLAS | | System - | | | | | | | [place] | | | | + + + +--------+ + + | [facility] | 2021-03-11 | [facility] | 21 | mmol/l | (missing) | | DIOXIDE | 18:23 | Health | | | | | (CO2), TOTAL | | System - | | | | | (MMOL/L) IN | | [place] | | | | | SER/PLAS | | | | | | + + + +--------+ + + | [facility] | 2021-03-11 | [facility] | 21 | mmol/l | (missing) | | DIOXIDE | 18:23 | Health | | | | | (CO2), TOTAL | | System - | | | | | (MMOL/L) IN | | [place] | | | | | SER/PLAS | | | | | | + + + +--------+ + + | | 2021-03-11 | [facility] | 29.7 | % | (missing) | | LYMPHOCYTES/ | 18:23 | Health | | | | | 100 | | System - | | | | | LEUKOCYTES | | [place] | | | | | IN BLOOD [...] | | | | LEUKOCYTES | | [place] | | | | | IN BLOOD [...] | | | | AUTOMATED | | [place] | | | | | COUNT | | | | | | + + + +--------+ + + | LYMPHOCYTES | 2021-03-11 | [facility] | 3.0 | k/mcl | (missing) | | (10*3/UL) | 18:23 | Health | | | | | IN BLOOD BY | | System - | | | | | AUTOMATED | | [place] | | | | | COUNT | | | | | | + + + +--------+ + + | POTASSIUM | 2021-03-11 | [facility] | 3.3 | mmol/l | (missing) | | (MMOL/L) IN | 18:23 | Health | | | | | SER/PLAS | | System - | | | | | | | [place] | | | | + + + +--------+ + + | POTASSIUM | 2021-03-11 | [facility] | 3.3 | mmol/l | (missing) | | (MMOL/L) IN | 18:23 | Health | | | | | SER/PLAS | | System - | | | | | | | [place] | | | | + + + +--------+ + + | ERYTHROCYTE | 2021-03-11 | [facility] | 30.4 | pg | (missing) | | MEAN | 18:23 | Health | | | | | CORPUSCULAR | | System - | | | | | HEMOGLOBIN | | [place] | | | | | (PG) BY [...] | | | | HEMOGLOBIN | | [place] | | | | | (PG) BY [...] | | | | HEMOGLOBIN | | [place] | | | | | CONCENTRATIO | [...] | | | | HEMOGLOBIN | | [place] | | | | | CONCENTRATIO | [...] | | | | AUTOMATED | | [place] | | | | | COUNT | | | | | | + + + +--------+ + + | PLATELETS | 2021-03-11 | [facility] | 369 | k/mcl | (missing) | | (10*3/UL) IN | 18:23 | Health | | | | | BLOOD | | System - | | | | | AUTOMATED | | [place] | | | | | COUNT | | | | | | + + + +--------+ + + | ALBUMIN | 2021-03-11 | [facility] | 4.3 | g/dl | (missing) | | (G/DL) IN | 18:23 | Health | | | | | SER/PLAS | | System - | | | | | | | [place] | | | | + + + +--------+ + + | ALBUMIN | 2021-03-11 | [facility] | 4.3 | g/dl | (missing) | | (G/DL) IN | 18:23 | Health | | | | | SER/PLAS | | System - | | | | | | | [place] | | | | + + + +--------+ + + | | 2021-03-11 | [facility] | 4.73 | m/mcl | (missing) | | ERYTHROCYTES | 18:23 | Health | | | | | (10*6/UL) | | System - | | | | | IN BLOOD BY | | [place] | | | | | AUTOMATED | [...] | | IN BLOOD BY | | [place] | | | | | AUTOMATED | [...] | | | | AUTOMATED | | [place] | | | | | COUNT | | | | | | + + + +--------+ + + | HEMATOCRIT | 2021-03-11 | [facility] | 41.9 | % | (missing) | | (%) IN BLOOD | 18:23 | Health | | | | | BY | | System - | | | | | AUTOMATED | | [place] | | | | | COUNT | | | | | | + + + +--------+ + + | NEUTROPHILS | 2021-03-11 | [facility] | 6.1 | k/mcl | (missing) | | (10*3/UL) | 18:23 | Health | | | | | IN BLOOD BY | | System - | | | | | AUTOMATED | | [place] | | | | | COUNT | | | | | | + + + +--------+ + + | NEUTROPHILS | 2021-03-11 | [facility] | 6.1 | k/mcl | (missing) | | (10*3/UL) | 18:23 | Health | | | | | IN BLOOD BY | | System - | | | | | AUTOMATED | | [place] | | | | | COUNT | | | | | | + + + +--------+ + + | PROTEIN | 2021-03-11 | [facility] | 6.6 | g/dl | (missing) | | (G/DL) IN | 18:23 | Health | | | | | SER/PLAS | | System - | | | | | | | [place] | | | | + + + +--------+ + + | PROTEIN | 2021-03-11 | [facility] | 6.6 | g/dl | (missing) | | (G/DL) IN | 18:23 | Health | | | | | SER/PLAS | | System - | | | | | | | [place] | | | | + + + +--------+ + + | | 2021-03-11 | [facility] | 60.0 | % | (missing) | | NEUTROPHILS/ | 18:23 | Health | | | | | 100 | | System - | | | | | LEUKOCYTES | | [place] | | | | | IN BLOOD [...] | | | | LEUKOCYTES | | [place] | | | | | IN BLOOD [...] | | | | SER/PLAS | | [place] | | | | + + + +--------+ + + | ALKALINE | 2021-03-11 | [facility] | 64 | u/l | (missing) | | PHOSPHATASE | 18:23 | Health | | | | | (U/L) IN | | System - | | | | | SER/PLAS | | [place] | | | | + + + +--------+ + + | | 2021-03-11 | [facility] | 7.4 | % | (missing) | | MONOCYTES/10 | 18:23 | Health | | | | | 0 LEUKOCYTES | | System - | | | | | IN BLOOD BY | | [place] | | | | | AUTOMATED | [...] | | IN BLOOD BY | | [place] | | | | | AUTOMATED | [...] | | | VOLUME (FL) | | [place] | | | | | BY AUTOMATED [...] | | | VOLUME (FL) | | [place] | | | | | BY AUTOMATED [...] | | | | | | | [place] | | | | + + + +--------+ + + | CALCIUM | 2021-03-11 | [facility] | 9.4 | mg/dl | (missing) | | (MG/DL) IN | 18:23 | Health | | | | | SER/PLAS | | System - | | | | | | | [place] | | | | + + + +--------+ + + | PLATELET | 2021-03-11 | [facility] | 9.6 | fl | (missing) | | MEAN VOLUME | 18:23 | Health | | | | | (FL) IN | | System - | | | | | BLOOD BY | | [place] | | | | | AUTOMATED | [...] | | | BLOOD BY | | [place] | | | | | AUTOMATED | [...] | | | | | | | [place] | | | | + + + + + + + | ALCOHOL | 2021-03-11 | [facility] | < | g/dl | (missing) | | (G/DL) IN | 18:24 | Health | | | | | SER/PLAS | | System - | | | | | | | [place] | | | | + + + + + + + | | 2021-03-11 | [facility] | < | mcg/ml | (missing) | | ACETAMINOPHE | 18:24 | Health | | | | | N (UG/ML) IN | | System - | | | | | SER/PLAS | | [place] | | | | + + + + + + + | | 2021-03-11 | [facility] | < | mcg/ml | (missing) | | ACETAMINOPHE | 18:24 | Health | | | | | N (UG/ML) IN | | System - | | | | | SER/PLAS | | [place] | | | | + + + + + + + | SALICYLATE | 2021-03-11 | [facility] | < | mg/dl | (missing) | | (MG/DL) IN | 18:24 | Health | | | | | SER/PLAS | | System - | | | | | | | [place] | | | | + + + + + + + | SALICYLATE | 2021-03-11 | [facility] | < | mg/dl | (missing) | | (MG/DL) IN | 18:24 | Health | | | | | SER/PLAS | | System - | | | | | | | [place] | | | | + + + + + + + | | 2021-03-11 | [facility] | Negative | (missing) | (missing) | | BARBITURATES | 18:24 | Health | | | | | PRESENCE IN | | System - | | | | | URINE BY | | [place] | | | | | SCREEN | [...] | | | | (PRESENCE) | | [place] | | | | | IN URINE [...] | | | | SCREEN | | [place] | | | | | METHOD | | | | | | + + + + + + + | METHADONE | 2021-03-11 | [facility] | Negative | (missing) | (missing) | | (PRESENCE) | 18:24 | Health | | | | | IN URINE BY | | System - | | | | | SCREEN | | [place] | | | | | METHOD | | | | | | + + + + + + + | OPIATES | 2021-03-11 | [facility] | Negative | (missing) | (missing) | | (PRESENCE) | 18:24 | Health | | | | | IN URINE BY | | System - | | | | | SCREEN | | [place] | | | | | METHOD | | | | | | + + + + + + + | OXYCODONE | 2021-03-11 | [facility] | Negative | (missing) | (missing) | | (PRESENCE) | 18:24 | Health | | | | | IN URINE BY | | System - | | | | | SCREEN | | [place] | | | | | METHOD | | | | | | + + + + + + + | | 2021-03-11 | [facility] | Negative | (missing) | (missing) | | PHENCYCLIDIN | 18:24 | Health | | | | | E (PRESENCE) | | System - | | | | | IN URINE BY | | [place] | | | | | SCREEN | [...] | | | | (PRESENCE) | | [place] | | | | | IN URINE | | | | | | + + + + + + + | | 2021-03-11 | [facility] | Negative | (missing) | (missing) | | PHENCYCLIDIN | 18:24 | Health | | | | | E (PRESENCE) | | System - | | | | | IN URINE BY | | [place] | | | | | SCREEN | [...] | | | | SCREEN | | [place] | | | | | METHOD | | | | | | + + + + + + + | TRICYCLIC | 2021-03-11 | [facility] | Negative | (missing) | (missing) | | ANTIDEPRESSA | 18:24 | Health | | | | | NTS | | System - | | | | | (PRESENCE) | | [place] | | | | | IN URINE | | | | | | + + + + + + + | OXYCODONE | 2021-03-11 | [facility] | Negative | (missing) | (missing) | | (PRESENCE) | 18:24 | Health | | | | | IN URINE BY | | System - | | | | | SCREEN | | [place] | | | | | METHOD | | | | | | + + + + + + + | [facility] QUAL | 2021-03-11 | [facility] | Negative | (missing) | (missing) | | (CHORIOGONAD | 18:24 | Health | | | | | OTROPIN) IN | | System - | | | | | SER/PLAS | | [place] | | | | + + + + + + + | COCAINE | 2021-03-11 | [facility] | Negative | (missing) | (missing) | | (PRESENCE) | 18:24 | Health | | | | | IN URINE BY | | System - | | | | | SCREEN | | [place] | | | | | METHOD | | | | | | + + + + + + + | | 2021-03-11 | [facility] | Negative | (missing) | (missing) | | BARBITURATES | 18:24 | Health | | | | | PRESENCE IN | | System - | | | | | URINE BY | | [place] | | | | | SCREEN | [...] | | | | (PRESENCE) | | [place] | | | | | IN URINE [...] | | | | SCREEN | | [place] | | | | | METHOD | | | | | | + + + + + + + | [facility] QUAL | 2021-03-11 | [facility] | Negative | (missing) | (missing) | | (CHORIOGONAD | 18:24 | Health | | | | | OTROPIN) IN | | System - | | | | | SER/PLAS | | [place] | | | | + + + + + + + | | 2021-03-11 | [facility] | Presumptive | (missing) | (missing) | | METHAMPHETAM | 18:24 | Health | Positive | | | | INE | | System - | | | | | (PRESENCE) | | [place] | | | | | IN URINE [...] | | | BY SCREEN | | [place] | | | | | METHOD | | | | | | + + + + + + + | THC | 2021-03-11 | [facility] | Presumptive | (missing) | (missing) | | (CANNABINOID | 18:24 | Health | Positive | | | | ) IN URINE | | System - | | | | | BY SCREEN | | [place] | | | | | METHOD | | | | | | + + + + + + + | AMPHETAMINE | 2021-03-11 | [facility] | Presumptive | (missing) | (missing) | | (PRESENCE) | 18:24 | Health | Positive | | | | IN URINE BY | | System - | | | | | SCREEN | | [place] | | | | | METHOD | | | | | | + + + + + + + | | 2021-03-11 | [facility] | Presumptive | (missing) | (missing) | | METHAMPHETAM | 18:24 | Health | Positive | | | | INE | | System - | | | | | (PRESENCE) | | [place] | | | | | IN URINE [...] | | | | SCREEN | | [place] | | | | | METHOD | [...] | | | | | | | [place] | | | | + + + [...] ? | | | RATE) | | [place] | | | | | ML/MIN/1.73 | [...] ? | | | RATE) | | [place] | | | | | ML/MIN/1.73 | [...] | | | | | | | [place] | | | | + + + + + + + | ALCOHOL | 2021-09-25 | [facility] | < | g/dl | (missing) | | (G/DL) IN | 23:37 | Health | | | | | SER/PLAS | | System - | | | | | | | [place] | | | | + + + + + + + | | 2021-09-25 | [facility] | < | mcg/ml | (missing) | | ACETAMINOPHE | 23:37 | Health | | | | | N (UG/ML) IN | | System - | | | | | SER/PLAS | | [place] | | | | + + + + + + + | | 2021-09-25 | [facility] | < | mcg/ml | (missing) | | ACETAMINOPHE | 23:37 | Health | | | | | N (UG/ML) IN | | System - | | | | | SER/PLAS | | [place] | | | | + + + + + + + | SALICYLATE | 2021-09-25 | [facility] | < | mg/dl | (missing) | | (MG/DL) IN | 23:37 | Health | | | | | SER/PLAS | | System - | | | | | | | [place] | | | | + + + + + + + | SALICYLATE | 2021-09-25 | [facility] | < | mg/dl | (missing) | | (MG/DL) IN | 23:37 | Health | | | | | SER/PLAS | | System - | | | | | | | [place] | | | | + + + + + + + | NRBC/100 | 2021-09-25 | [facility] | 0.0 | % | (missing) | | WBCS BY | 23:37 | Health | | | | | AUTOMATED | | System - | | | | | COUNT | | [place] | | | | + + + + + + + | NRBC/100 | 2021-09-25 | [facility] | 0.0 | % | (missing) | | WBCS BY | 23:37 | Health | | | | | AUTOMATED | | System - | | | | | COUNT | | [place] | | | | + + + + + + + | | 2021-09-25 | [facility] | 0.0 | k/mcl | (missing) | | NRBC(10*3/UL | 23:37 | Health | | | | | ) IN BLOOD | | System - | | | | | BY AUTOMATED | | [place] | | | | | COUNT | | | | | | + + + + + + + | | 2021-09-25 | [facility] | 0.0 | k/mcl | (missing) | | NRBC(10*3/UL | 23:37 | Health | | | | | ) IN BLOOD | | System - | | | | | BY AUTOMATED | | [place] | | | | | COUNT | | | | | | + + + + + + + | IMMATURE | 2021-09-25 | [facility] | 0.04 | k/mcl | (missing) | | GRANULOCYTE | 23:37 | Health | | | | | (ABS) | | System - | | | | | | | [place] | | | | + + + + + + + | IMMATURE | 2021-09-25 | [facility] | 0.04 | k/mcl | (missing) | | GRANULOCYTE | 23:37 | Health | | | | | (ABS) | | System - | | | | | | | [place] | | | | + + + + + + + | BASOPHILS | 2021-09-25 | [facility] | 0.1 | k/mcl | (missing) | | (10*3/UL) IN | 23:37 | Health | | | | | BLOOD BY | | System - | | | | | AUTOMATED | | [place] | | | | | COUNT | | | | | | + + + + + + + | EOSINOPHILS | 2021-09-25 | [facility] | 0.1 | k/mcl | (missing) | | (10*3/UL) | 23:37 | Health | | | | | IN BLOOD BY | | System - | | | | | AUTOMATED | | [place] | | | | | COUNT | | | | | | + + + + + + + | BASOPHILS | 2021-09-25 | [facility] | 0.1 | k/mcl | (missing) | | (10*3/UL) IN | 23:37 | Health | | | | | BLOOD BY | | System - | | | | | AUTOMATED | | [place] | | | | | COUNT | | | | | | + + + + + + + | EOSINOPHILS | 2021-09-25 | [facility] | 0.1 | k/mcl | (missing) | | (10*3/UL) | 23:37 | Health | | | | | IN BLOOD BY | | System - | | | | | AUTOMATED | | [place] | | | | | COUNT | | | | | | + + + + + + + | IMMATURE | 2021-09-25 | [facility] | 0.4 | % | (missing) | | GRANULOCYTE | 23:37 | Health | | | | | % (AUTO) | | System - | | | | | | | [place] | | | | + + + + + + + | IMMATURE | 2021-09-25 | [facility] | 0.4 | % | (missing) | | GRANULOCYTE | 23:37 | Health | | | | | % (AUTO) | | System - | | | | | | | [place] | | | | + + + + + + + | | 2021-09-25 | [facility] | 0.5 | % | (missing) | | BASOPHILS/10 | 23:37 | Health | | | | | 0 LEUKOCYTES | | System - | | | | | IN BLOOD BY | | [place] | | | | | AUTOMATED | [...] | | IN BLOOD BY | | [place] | | | | | AUTOMATED | | | | | | | COUNT | | | | | | + + + + + + + | BILIRUBIN | 2021-09-25 | [facility] | 0.5 | mg/dl | (missing) | | TOTAL | 23:37 | Health | | | | | (MG/DL) IN | | System - | | | | | SER/PLAS | | [place] | | | | + + + + + + + | BILIRUBIN | 2021-09-25 | [facility] | 0.5 | mg/dl | (missing) | | TOTAL | 23:37 | Health | | | | | (MG/DL) IN | | System - | | | | | SER/PLAS | | [place] | | | | + + + + + + + | MONOCYTES | 2021-09-25 | [facility] | 0.6 | k/mcl | (missing) | | (10*3/UL) IN | 23:37 | Health | | | | | BLOOD BY | | System - | | | | | AUTOMATED | | [place] | | | | | COUNT | | | | | | + + + + + + + | MONOCYTES | 2021-09-25 | [facility] | 0.6 | k/mcl | (missing) | | (10*3/UL) IN | 23:37 | Health | | | | | BLOOD BY | | System - | | | | | AUTOMATED | | [place] | | | | | COUNT | | | | | | + + + + + + + | | 2021-09-25 | [facility] | 0.7 | % | (missing) | | EOSINOPHILS/ | 23:37 | Health | | | | | 100 | | System - | | | | | LEUKOCYTES | | [place] | | | | | IN BLOOD [...] | | | | LEUKOCYTES | | [place] | | | | | IN BLOOD [...] | | | | | | | [place] | | | | + + + + + + + | CREATININE | 2021-09-25 | [facility] | 0.7 | mg/dl | (missing) | | (MG/DL) IN | 23:37 | Health | | | | | SER/PLAS | | System - | | | | | | | [place] | | | | + + + + + + + | | 2021-09-25 | [facility] | 10.4 | k/mcl | (missing) | | LEUKOCYTES(1 | 23:37 | Health | | | | | 0*3/UL) IN | | System - | | | | | BLOOD BY | | [place] | | | | | AUTOMATED | [...] | | | BLOOD BY | | [place] | | | | | AUTOMATED | [...] | | | | | | | [place] | | | | + + + + + + + | CHLORIDE | 2021-09-25 | [facility] | 105 | mmol/l | (missing) | | (MMOL/L) IN | 23:37 | Health | | | | | SER/PLAS | | System - | | | | | | | [place] | | | | + + + + + + + | ANION GAP | 2021-09-25 | [facility] | 12.0 | mmol/l | (missing) | | IN SER/PLAS | 23:37 | Health | | | | | | | System - | | | | | | | [place] | | | | + + + + + + + | ANION GAP | 2021-09-25 | [facility] | 12.0 | mmol/l | (missing) | | IN SER/PLAS | 23:37 | Health | | | | | | | System - | | | | | | | [place] | | | | + + + + + + + | ERYTHROCYTE | 2021-09-25 | [facility] | 12.2 | % | (missing) | | | 23:37 | Health | | | | | DISTRIBUTION | | System - | | | | | WIDTH | | [place] | | | | | (RATIO) BY [...] | | | | WIDTH | | [place] | | | | | (RATIO) BY [...] | | | | SER/PLAS | | [place] | | | | + + + + + + + | GLUCOSE, | 2021-09-25 | [facility] | 127 | mg/dl | (missing) | | RANDOM | 23:37 | Health | | | | | (MG/DL) IN | | System - | | | | | SER/PLAS | | [place] | | | | + + + + + + + | SODIUM | 2021-09-25 | [facility] | 136 | mmol/l | (missing) | | (MMOL/L) IN | 23:37 | Health | | | | | SER/PLAS | | System - | | | | | | | [place] | | | | + + + + + + + | SODIUM | 2021-09-25 | [facility] | 136 | mmol/l | (missing) | | (MMOL/L) IN | 23:37 | Health | | | | | SER/PLAS | | System - | | | | | | | [place] | | | | + + + + + + + | BLOOD UREA | 2021-09-25 | [facility] | 14 | mg/dl | (missing) | | NITROGEN | 23:37 | Health | | | | | (BUN) | | System - | | | | | (MG/DL) IN | | [place] | | | | | SER/PLAS | | | | | | + + + + + + + | BLOOD UREA | 2021-09-25 | [facility] | 14 | mg/dl | (missing) | | NITROGEN | 23:37 | Health | | | | | (BUN) | | System - | | | | | (MG/DL) IN | | [place] | | | | | SER/PLAS | | | | | | + + + + + + + | HEMOGLOBIN | 2021-09-25 | [facility] | 14.5 | g/dl | (missing) | | (G/DL) IN | 23:37 | Health | | | | | BLOOD | | System - | | | | | | | [place] | | | | + + + + + + + | HEMOGLOBIN | 2021-09-25 | [facility] | 14.5 | g/dl | (missing) | | (G/DL) IN | 23:37 | Health | | | | | BLOOD | | System - | | | | | | | [place] | | | | + + + + + + + | CARBON | 2021-09-25 | [facility] | 19 | mmol/l | (missing) | | DIOXIDE | 23:37 | Health | | | | | (CO2), TOTAL | | System - | | | | | (MMOL/L) IN | | [place] | | | | | SER/PLAS | | | | | | + + + + + + + | CARBON | 2021-09-25 | [facility] | 19 | mmol/l | (missing) | | DIOXIDE | 23:37 | Health | | | | | (CO2), TOTAL | | System - | | | | | (MMOL/L) IN | | [place] | | | | | SER/PLAS | | | | | | + + + + + + + | POTASSIUM | 2021-09-25 | [facility] | 3.4 | mmol/l | (missing) | | (MMOL/L) IN | 23:37 | Health | | | | | SER/PLAS | | System - | | | | | | | [place] | | | | + + + + + + + | POTASSIUM | 2021-09-25 | [facility] | 3.4 | mmol/l | (missing) | | (MMOL/L) IN | 23:37 | Health | | | | | SER/PLAS | | System - | | | | | | | [place] | | | | + + + + + + + | LYMPHOCYTES | 2021-09-25 | [facility] | 3.6 | k/mcl | (missing) | | (10*3/UL) | 23:37 | Health | | | | | IN BLOOD BY | | System - | | | | | AUTOMATED | | [place] | | | | | COUNT | | | | | | + + + + + + + | LYMPHOCYTES | 2021-09-25 | [facility] | 3.6 | k/mcl | (missing) | | (10*3/UL) | 23:37 | Health | | | | | IN BLOOD BY | | System - | | | | | AUTOMATED | | [place] | | | | | COUNT | | | | | | + + + + + + + | TSH | 2021-09-25 | [facility] | 3.97 | mciu/ml | (missing) | | (THYROTROPIN | 23:37 | Health | | | | | ) (UIU/ML) | | System - | | | | | IN SER/PLAS | | [place] | | | | + + + + + + + | TSH | 2021-09-25 | [facility] | 3.97 | mciu/ml | (missing) | | (THYROTROPIN | 23:37 | Health | | | | | ) (UIU/ML) | | System - | | | | | IN SER/PLAS | | [place] | | | | + + + + + + + | ALANINE | 2021-09-25 | [facility] | 30 | u/l | (missing) | | AMINOTRANSFE | 23:37 | Health | | | | | RASE (SGPT) | | System - | | | | | (U/L) IN | | [place] | | | | | SER/PLAS | | | | | | + + + + + + + | ALANINE | 2021-09-25 | [facility] | 30 | u/l | (missing) | | AMINOTRANSFE | 23:37 | Health | | | | | RASE (SGPT) | | System - | | | | | (U/L) IN | | [place] | | | | | SER/PLAS | | | | | | + + + + + + + | ERYTHROCYTE | 2021-09-25 | [facility] | 30.7 | pg | (missing) | | MEAN | 23:37 | Health | | | | | CORPUSCULAR | | System - | | | | | HEMOGLOBIN | | [place] | | | | | (PG) BY [...] | | | | HEMOGLOBIN | | [place] | | | | | (PG) BY [...] | | | | HEMOGLOBIN | | [place] | | | | | CONCENTRATIO | [...] | | | | HEMOGLOBIN | | [place] | | | | | CONCENTRATIO | [...] | | | | LEUKOCYTES | | [place] | | | | | IN BLOOD [...] | | | | LEUKOCYTES | | [place] | | | | | IN BLOOD [...] | | | | AUTOMATED | | [place] | | | | | COUNT | | | | | | + + + + + + + | PLATELETS | 2021-09-25 | [facility] | 356 | k/mcl | (missing) | | (10*3/UL) IN | 23:37 | Health | | | | | BLOOD | | System - | | | | | AUTOMATED | | [place] | | | | | COUNT | | | | | | + + + + + + + | ASPARTATE | 2021-09-25 | [facility] | 39 | u/l | (missing) | | AMINOTRANSFE | 23:37 | Health | | | | | RASE (SGOT) | | System - | | | | | (U/L) IN | | [place] | | | | | SER/PLAS | | | | | | + + + + + + + | ASPARTATE | 2021-09-25 | [facility] | 39 | u/l | (missing) | | AMINOTRANSFE | 23:37 | Health | | | | | RASE (SGOT) | | System - | | | | | (U/L) IN | | [place] | | | | | SER/PLAS | | | | | | + + + + + + + | ALBUMIN | 2021-09-25 | [facility] | 4.2 | g/dl | (missing) | | (G/DL) IN | 23:37 | Health | | | | | SER/PLAS | | System - | | | | | | | [place] | | | | + + + + + + + | ALBUMIN | 2021-09-25 | [facility] | 4.2 | g/dl | (missing) | | (G/DL) IN | 23:37 | Health | | | | | SER/PLAS | | System - | | | | | | | [place] | | | | + + + + + + + | | 2021-09-25 | [facility] | 4.73 | m/mcl | (missing) | | ERYTHROCYTES | 23:37 | Health | | | | | (10*6/UL) | | System - | | | | | IN BLOOD BY | | [place] | | | | | AUTOMATED | [...] | | IN BLOOD BY | | [place] | | | | | AUTOMATED | [...] | | | | AUTOMATED | | [place] | | | | | COUNT | | | | | | + + + + + + + | HEMATOCRIT | 2021-09-25 | [facility] | 41.8 | % | (missing) | | (%) IN BLOOD | 23:37 | Health | | | | | BY | | System - | | | | | AUTOMATED | | [place] | | | | | COUNT | | | | | | + + + + + + + | | 2021-09-25 | [facility] | 5.8 | % | (missing) | | MONOCYTES/10 | 23:37 | Health | | | | | 0 LEUKOCYTES | | System - | | | | | IN BLOOD BY | | [place] | | | | | AUTOMATED | [...] | | IN BLOOD BY | | [place] | | | | | AUTOMATED | [...] | | | | LEUKOCYTES | | [place] | | | | | IN BLOOD [...] | | | | LEUKOCYTES | | [place] | | | | | IN BLOOD [...] | | | | AUTOMATED | | [place] | | | | | COUNT | | | | | | + + + + + + + | NEUTROPHILS | 2021-09-25 | [facility] | 6.0 | k/mcl | (missing) | | (10*3/UL) | 23:37 | Health | | | | | IN BLOOD BY | | System - | | | | | AUTOMATED | | [place] | | | | | COUNT | | | | | | + + + + + + + | PROTEIN | 2021-09-25 | [facility] | 6.6 | g/dl | (missing) | | (G/DL) IN | 23:37 | Health | | | | | SER/PLAS | | System - | | | | | | | [place] | | | | + + + + + + + | PROTEIN | 2021-09-25 | [facility] | 6.6 | g/dl | (missing) | | (G/DL) IN | 23:37 | Health | | | | | SER/PLAS | | System - | | | | | | | [place] | | | | + + + + + + + | ALKALINE | 2021-09-25 | [facility] | 61 | u/l | (missing) | | PHOSPHATASE | 23:37 | Health | | | | | (U/L) IN | | System - | | | | | SER/PLAS | | [place] | | | | + + + + + + + | ALKALINE | 2021-09-25 | [facility] | 61 | u/l | (missing) | | PHOSPHATASE | 23:37 | Health | | | | | (U/L) IN | | System - | | | | | SER/PLAS | | [place] | | | | + + + + + + + | ERYTHROCYTE | 2021-09-25 | [facility] | 88.4 | fl | (missing) | | MEAN | 23:37 | Health | | | | | CORPUSCULAR | | System - | | | | | VOLUME (FL) | | [place] | | | | | BY AUTOMATED [...] | | | VOLUME (FL) | | [place] | | | | | BY AUTOMATED [...] | | | BLOOD BY | | [place] | | | | | AUTOMATED | [...] | | | BLOOD BY | | [place] | | | | | AUTOMATED | [...] | | | | | | | [place] | | | | + + + + + + + | CALCIUM | 2021-09-25 | [facility] | 9.3 | mg/dl | (missing) | | (MG/DL) IN | 23:37 | Health | | | | | SER/PLAS | | System - | | | | | | | [place] | | | | + + + + + + + | | 2021-09-25 | [facility] | Negative | (missing) | (missing) | | BARBITURATES | 23:37 | Health | | | | | PRESENCE IN | | System - | | | | | URINE BY | | [place] | | | | | SCREEN | [...] | | | | (PRESENCE) | | [place] | | | | | IN URINE [...] | | | | SCREEN | | [place] | | | | | METHOD | | | | | | + + + + + + + | METHADONE | 2021-09-25 | [facility] | Negative | (missing) | (missing) | | (PRESENCE) | 23:37 | Health | | | | | IN URINE BY | | System - | | | | | SCREEN | | [place] | | | | | METHOD | | | | | | + + + + + + + | OPIATES | 2021-09-25 | [facility] | Negative | (missing) | (missing) | | (PRESENCE) | 23:37 | Health | | | | | IN URINE BY | | System - | | | | | SCREEN | | [place] | | | | | METHOD | | | | | | + + + + + + + | OXYCODONE | 2021-09-25 | [facility] | Negative | (missing) | (missing) | | (PRESENCE) | 23:37 | Health | | | | | IN URINE BY | | System - | | | | | SCREEN | | [place] | | | | | METHOD | | | | | | + + + + + + + | | 2021-09-25 | [facility] | Negative | (missing) | (missing) | | PHENCYCLIDIN | 23:37 | Health | | | | | E (PRESENCE) | | System - | | | | | IN URINE BY | | [place] | | | | | SCREEN | [...] | | | BY SCREEN | | [place] | | | | | METHOD | | | | | | + + + + + + + | TRICYCLIC | 2021-09-25 | [facility] | Negative | (missing) | (missing) | | ANTIDEPRESSA | 23:37 | Health | | | | | NTS | | System - | | | | | (PRESENCE) | | [place] | | | | | IN URINE | | | | | | + + + + + + + | | 2021-09-25 | [facility] | Negative | (missing) | (missing) | | PHENCYCLIDIN | 23:37 | Health | | | | | E (PRESENCE) | | System - | | | | | IN URINE BY | | [place] | | | | | SCREEN | [...] | | | BY SCREEN | | [place] | | | | | METHOD | | | | | | + + + + + + + | OPIATES | 2021-09-25 | [facility] | Negative | (missing) | (missing) | | (PRESENCE) | 23:37 | Health | | | | | IN URINE BY | | System - | | | | | SCREEN | | [place] | | | | | METHOD | | | | | | + + + + + + + | TRICYCLIC | 2021-09-25 | [facility] | Negative | (missing) | (missing) | | ANTIDEPRESSA | 23:37 | Health | | | | | NTS | | System - | | | | | (PRESENCE) | | [place] | | | | | IN URINE | | | | | | + + + + + + + | OXYCODONE | 2021-09-25 | [facility] | Negative | (missing) | (missing) | | (PRESENCE) | 23:37 | Health | | | | | IN URINE BY | | System - | | | | | SCREEN | | [place] | | | | | METHOD | | | | | | + + + + + + + | BHCG QUAL | 2021-09-25 | [facility] | Negative | (missing) | (missing) | | (CHORIOGONAD | 23:37 | Health | | | | | OTROPIN) IN | | System - | | | | | SER/PLAS | | [place] | | | | + + + + + + + | COCAINE | 2021-09-25 | [facility] | Negative | (missing) | (missing) | | (PRESENCE) | 23:37 | Health | | | | | IN URINE BY | | System - | | | | | SCREEN | | [place] | | | | | METHOD | | | | | | + + + + + + + | | 2021-09-25 | [facility] | Negative | (missing) | (missing) | | BARBITURATES | 23:37 | Health | | | | | PRESENCE IN | | System - | | | | | URINE BY | | [place] | | | | | SCREEN | [...] | | | | (PRESENCE) | | [place] | | | | | IN URINE [...] | | | | SCREEN | | [place] | | | | | METHOD | | | | | | + + + + + + + | [facility] QUAL | 2021-09-25 | [facility] | Negative | (missing) | (missing) | | (CHORIOGONAD | 23:37 | Health | | | | | OTROPIN) IN | | System - | | | | | SER/PLAS | | [place] | | | | + + + + + + + | | 2021-09-25 | [facility] | Presumptive | (missing) | (missing) | | METHAMPHETAM | 23:37 | Health | Positive | | | | INE | | System - | | | | | (PRESENCE) | | [place] | | | | | IN URINE [...] | | | | SCREEN | | [place] | | | | | METHOD | | | | | | + + + + + + + | | 2021-09-25 | [facility] | Presumptive | (missing) | (missing) | | [place] | 23:37 | Health | Positive | | | | INE | | System - | | | | | (PRESENCE) | | [place] | | | | | IN URINE [...] | | | | SCREEN | | [place] | | | | | METHOD | [...] | | | | | | | [place] | | | | + + + + + + + | INFLUENZA B | 2021-09-25 | [facility] | Negative | (missing) | (missing) | | | 23:46 | Health | | | | | | | System - | | | | | | | [place] | | | | + + + + + + + | RSV | 2021-09-25 | [facility] | Negative | (missing) | (missing) | | | 23:46 | Health | | | | | | | System - | | | | | | | [place] | | | | + + + + + + + | SARS-COV-2 | 2021-09-25 | [facility] | Negative | (missing) | (missing) | | (COVID19) | 23:46 | Health | | | | | CEPHEID PCR | | System - | | | | | | | [place] | | | | + + + + + + + | INFLUENZA A | 2021-09-25 | [facility] | Negative | (missing) | (missing) | | | 23:46 | Health | | | | | | | System - | | | | | | | [place] | | | | + + + + + + + | INFLUENZA B | 2021-09-25 | [facility] | Negative | (missing) | (missing) | | | 23:46 | Health | | | | | | | System - | | | | | | | [place] | | | | + + + + + + + | RSV | 2021-09-25 | [facility] | Negative | (missing) | (missing) | | | 23:46 | Health | | | | | | | System - | | | | | | | [place] | | | | + + + + + + + | SARS-COV-2 | 2021-09-25 | [facility] | Negative | (missing) | (missing) | | (COVID19) | 23:46 | Health | | | | | CEPHEID PCR | | System - | | | | | | | [place] | | | | + + + [...] ? | | | RATE) | | [place] | | | | | ML/MIN/1.73 | [...] ? | | | RATE) | | [place] | | | | | ML/MIN/1.73 | [...] | | | | | | | [place] | | | | + + + + + + + | ALCOHOL | 2021-09-28 | [facility] | < | g/dl | (missing) | | (G/DL) IN | 23:31 | Health | | | | | SER/PLAS | | System - | | | | | | | [place] | | | | + + + + + + + | BILIRUBIN | 2021-09-28 | [facility] | < | mg/dl | (missing) | | TOTAL | 23:31 | Health | | | | | (MG/DL) IN | | System - | | | | | SER/PLAS | | [place] | | | | + + + + + + + | BILIRUBIN | 2021-09-28 | [facility] | < | mg/dl | (missing) | | TOTAL | 23:31 | Health | | | | | (MG/DL) IN | | System - | | | | | SER/PLAS | | [place] | | | | + + + + + + + | NRBC/100 | 2021-09-28 | [facility] | 0.0 | % | (missing) | | WBCS BY | 23:31 | Health | | | | | AUTOMATED | | System - | | | | | COUNT | | [place] | | | | + + + + + + + | NRBC/100 | 2021-09-28 | [facility] | 0.0 | % | (missing) | | WBCS BY | 23:31 | Health | | | | | AUTOMATED | | System - | | | | | COUNT | | [place] | | | | + + + + + + + | | 2021-09-28 | [facility] | 0.0 | k/mcl | (missing) | | NRBC(10*3/UL | 23:31 | Health | | | | | ) IN BLOOD | | System - | | | | | BY AUTOMATED | | [place] | | | | | COUNT | | | | | | + + + + + + + | | 2021-09-28 | [facility] | 0.0 | k/mcl | (missing) | | NRBC(10*3/UL | 23:31 | Health | | | | | ) IN BLOOD | | System - | | | | | BY AUTOMATED | | [place] | | | | | COUNT | | | | | | + + + + + + + | IMMATURE | 2021-09-28 | [facility] | 0.04 | k/mcl | (missing) | | GRANULOCYTE | 23:31 | Health | | | | | (ABS) | | System - | | | | | | | [place] | | | | + + + + + + + | IMMATURE | 2021-09-28 | [facility] | 0.04 | k/mcl | (missing) | | GRANULOCYTE | 23:31 | Health | | | | | (ABS) | | System - | | | | | | | [place] | | | | + + + + + + + | BASOPHILS | 2021-09-28 | [facility] | 0.1 | k/mcl | (missing) | | (10*3/UL) IN | 23:31 | Health | | | | | BLOOD BY | | System - | | | | | AUTOMATED | | [place] | | | | | COUNT | | | | | | + + + + + + + | BASOPHILS | 2021-09-28 | [facility] | 0.1 | k/mcl | (missing) | | (10*3/UL) IN | 23:31 | Health | | | | | BLOOD BY | | System - | | | | | AUTOMATED | | [place] | | | | | COUNT | | | | | | + + + + + + + | EOSINOPHILS | 2021-09-28 | [facility] | 0.2 | k/mcl | (missing) | | (10*3/UL) | 23:31 | Health | | | | | IN BLOOD BY | | System - | | | | | AUTOMATED | | [place] | | | | | COUNT | | | | | | + + + + + + + | EOSINOPHILS | 2021-09-28 | [facility] | 0.2 | k/mcl | (missing) | | (10*3/UL) | 23:31 | Health | | | | | IN BLOOD BY | | System - | | | | | AUTOMATED | | [place] | | | | | COUNT | | | | | | + + + + + + + | IMMATURE | 2021-09-28 | [facility] | 0.4 | % | (missing) | | GRANULOCYTE | 23:31 | Health | | | | | % (AUTO) | | System - | | | | | | | [place] | | | | + + + + + + + | IMMATURE | 2021-09-28 | [facility] | 0.4 | % | (missing) | | GRANULOCYTE | 23:31 | Health | | | | | % (AUTO) | | System - | | | | | | | [place] | | | | + + + + + + + | | 2021-09-28 | [facility] | 0.6 | % | (missing) | | BASOPHILS/10 | 23:31 | Health | | | | | 0 LEUKOCYTES | | System - | | | | | IN BLOOD BY | | [place] | | | | | AUTOMATED | [...] | | IN BLOOD BY | | [place] | | | | | AUTOMATED | [...] | | | | AUTOMATED | | [place] | | | | | COUNT | | | | | | + + + + + + + | MONOCYTES | 2021-09-28 | [facility] | 0.6 | k/mcl | (missing) | | (10*3/UL) IN | 23:31 | Health | | | | | BLOOD BY | | System - | | | | | AUTOMATED | | [place] | | | | | COUNT | | | | | | + + + + + + + | CREATININE | 2021-09-28 | [facility] | 0.6 | mg/dl | (missing) | | (MG/DL) IN | | Health | | | | | SER/PLAS | | System - | | | | | | | [place] | | | | + + + + + + + | CREATININE | 2021-09-28 | [facility] | 0.6 | mg/dl | (missing) | | (MG/DL) IN | 31 | Health | | | | | SER/PLAS | | System - | | | | | | | [place] | | | | + + + + + + + | BACTERIA | 2021-09-28 | [facility] | 1 | /hpf | (missing) | | (#/HPF) IN | | Health | | | | | URINE | | System - | | | | | | | [place] | | | | + + + + + + + | BACTERIA | 2021-09-28 | [facility] | 1 | /hpf | (missing) | | (#/HPF) IN | 23:31 | Health | | | | | URINE | | System - | | | | | | | [place] | | | | + + + + + + + | SPECIFIC | 2021-09-28 | [facility] | 1.033 | (missing) | (missing) | | GRAVITY OF | 23:31 | Health | | | | | URINE BY | | System - | | | | | AUTOMATED | | [place] | | | | | TEST STRIP | | | | | | + + + + + + + | SPECIFIC | 2021-09-28 | [facility] | 1.033 | (missing) | (missing) | | GRAVITY OF | 23:31 | Health | | | | | URINE BY | | System - | | | | | AUTOMATED | | [place] | | | | | TEST STRIP | | | | | | + + + + + + + | ANION GAP | 2021-09-28 | [facility] | 10.0 | mmol/l | (missing) | | IN SER/PLAS | 23:31 | Health | | | | | | | System - | | | | | | | [place] | | | | + + + + + + + | ANION GAP | 2021-09-28 | [facility] | 10.0 | mmol/l | (missing) | | IN SER/PLAS | 23:31 | Health | | | | | | | System - | | | | | | | [place] | | | | + + + + + + + | | 2021-09-28 | [facility] | 10.1 | k/mcl | (missing) | | LEUKOCYTES( | Health | | | | | 0*3/UL) IN | | System - | | | | | BLOOD BY | | [place] | | | | | AUTOMATED | | | | | | | COUNT | | | | | | + + + + + + + | | 2021-09-28 | [facility] | 10.1 | k/mcl | (missing) | | LEUKOCYTES(1 | 31 | Health | | | | | 0*3/UL) IN | | System - | | | | | BLOOD BY | | [place] | | | | | AUTOMATED | [...] | | | | | | | [place] | | | | + + + + + + + | CHLORIDE | 2021-09-28 | [facility] | 109 | mmol/l | (missing) | | (MMOL/L) IN | 23:31 | Health | | | | | SER/PLAS | | System - | | | | | | | [place] | | | | + + + + + + + | BLOOD UREA | 2021-09-28 | [facility] | 12 | mg/dl | (missing) | | NITROGEN | 23:31 | Health | | | | | (BUN) | | System - | | | | | (MG/DL) IN | | [place] | | | | | SER/PLAS | | | | | | + + + + + + + | BLOOD UREA | 2021-09-28 | [facility] | 12 | mg/dl | (missing) | | NITROGEN | 23:31 | Health | | | | | (BUN) | | System - | | | | | (MG/DL) IN | | [place] | | | | | SER/PLAS | | | | | | + + + + + + + | ERYTHROCYTE | 2021-09-28 | [facility] | 12.1 | % | (missing) | | | 23:31 | Health | | | | | DISTRIBUTION | | System - | | | | | WIDTH | | [place] | | | | | (RATIO) BY [...] | | | | WIDTH | | [place] | | | | | (RATIO) BY [...] | | | | | | | [place] | | | | + + + + + + + | HEMOGLOBIN | 2021-09-28 | [facility] | 13.1 | g/dl | (missing) | | (G/DL) IN | 23:31 | Health | | | | | BLOOD | | System - | | | | | | | [place] | | | | + + + + + + + | SODIUM | 2021-09-28 | [facility] | 139 | mmol/l | (missing) | | (MMOL/L) IN | 23:31 | Health | | | | | SER/PLAS | | System - | | | | | | | [place] | | | | + + + + + + + | SODIUM | 2021-09-28 | [facility] | 139 | mmol/l | (missing) | | (MMOL/L) IN | 23:31 | Health | | | | | SER/PLAS | | System - | | | | | | | [place] | | | | + + + + + + + | SQUAMOUS | 2021-09-28 | [facility] | 14 | /hpf | (missing) | | EPITHELIAL | 23:31 | Health | | | | | CELLS | | System - | | | | | (#/HPF) IN | | [place] | | | | | URINE | [...] | | | (#/HPF) IN | | [place] | | | | | URINE | [...] | | | | URINE | | [place] | | | | | SEDIMENT | | | | | | + + + + + + + | WBC | 2021-09-28 | [facility] | 15 | /hpf | (missing) | | (LEUKOCYTE) | 23:31 | Health | | | | | (#/HPF) IN | | System - | | | | | URINE | | [place] | | | | | SEDIMENT | | | | | | + + + + + + + | | 2021-09-28 | [facility] | 2.2 | % | (missing) | | EOSINOPHILS/ | 23:31 | Health | | | | | 100 | | System - | | | | | LEUKOCYTES | | [place] | | | | | IN BLOOD [...] | | | | LEUKOCYTES | | [place] | | | | | IN BLOOD [...] | | | (MMOL/L) IN | | [place] | | | | | SER/PLAS | | | | | | + + + + + + + | CARBON | 2021-09-28 | [facility] | 20 | mmol/l | (missing) | | DIOXIDE | 23:31 | Health | | | | | (CO2), TOTAL | | System - | | | | | (MMOL/L) IN | | [place] | | | | | SER/PLAS | | | | | | + + + + + + + | ASPARTATE | 2021-09-28 | [facility] | 21 | u/l | (missing) | | AMINOTRANSFE | 23:31 | Health | | | | | RASE (SGOT) | | System - | | | | | (U/L) IN | | [place] | | | | | SER/PLAS | | | | | | + + + + + + + | ASPARTATE | 2021-09-28 | [facility] | 21 | u/l | (missing) | | AMINOTRANSFE | 23:31 | Health | | | | | RASE (SGOT) | | System - | | | | | (U/L) IN | | [place] | | | | | SER/PLAS | | | | | | + + + + + + + | ALANINE | 2021-09-28 | [facility] | 25 | u/l | (missing) | | AMINOTRANSFE | 23:31 | Health | | | | | RASE (SGPT) | | System - | | | | | (U/L) IN | | [place] | | | | | SER/PLAS | | | | | | + + + + + + + | ALANINE | 2021-09-28 | [facility] | 25 | u/l | (missing) | | AMINOTRANSFE | 23:31 | Health | | | | | RASE (SGPT) | | System - | | | | | (U/L) IN | | [place] | | | | | SER/PLAS | | | | | | + + + + + + + | LEUKOCYTE | 2021-09-28 | [facility] | 3 | (missing) | (missing) | | ESTERASE | 23:31 | Health | | | | | PRESENCE IN | | System - | | | | | URINE BY | | [place] | | | | | TEST STRIP | | | | | | + + + + + + + | LEUKOCYTE | 2021-09-28 | [facility] | 3 | (missing) | (missing) | | ESTERASE | 23:31 | Health | | | | | PRESENCE IN | | System - | | | | | URINE BY | | [place] | | | | | TEST STRIP | | | | | | + + + + + + + | POTASSIUM | 2021-09-28 | [facility] | 3.3 | mmol/l | (missing) | | (MMOL/L) IN | 23:31 | Health | | | | | SER/PLAS | | System - | | | | | | | [place] | | | | + + + + + + + | POTASSIUM | 2021-09-28 | [facility] | 3.3 | mmol/l | (missing) | | (MMOL/L) IN | 23:31 | Health | | | | | SER/PLAS | | System - | | | | | | | [place] | | | | + + + + + + + | ALBUMIN | 2021-09-28 | [facility] | 3.8 | g/dl | (missing) | | (G/DL) IN | 23:31 | Health | | | | | SER/PLAS | | System - | | | | | | | [place] | | | | + + + + + + + | ALBUMIN | 2021-09-28 | [facility] | 3.8 | g/dl | (missing) | | (G/DL) IN | 23:31 | Health | | | | | SER/PLAS | | System - | | | | | | | [place] | | | | + + + + + + + | LYMPHOCYTES | 2021-09-28 | [facility] | 3.9 | k/mcl | (missing) | | (10*3/UL) | 23:31 | Health | | | | | IN BLOOD BY | | System - | | | | | AUTOMATED | | [place] | | | | | COUNT | | | | | | + + + + + + + | LYMPHOCYTES | 2021-09-28 | [facility] | 3.9 | k/mcl | (missing) | | (10*3/UL) | 23:31 | Health | | | | | IN BLOOD BY | | System - | | | | | AUTOMATED | | [place] | | | | | COUNT | | | | | | + + + + + + + | ERYTHROCYTE | 2021-09-28 | [facility] | 30.4 | pg | (missing) | | MEAN | 23:31 | Health | | | | | CORPUSCULAR | | System - | | | | | HEMOGLOBIN | | [place] | | | | | (PG) BY [...] | | | | HEMOGLOBIN | | [place] | | | | | (PG) BY [...] | | | | AUTOMATED | | [place] | | | | | COUNT | | | | | | + + + + + + + | PLATELETS | 2021-09-28 | [facility] | 318 | k/mcl | (missing) | | (10*3/UL) IN | 23:31 | Health | | | | | BLOOD | | System - | | | | | AUTOMATED | | [place] | | | | | COUNT | | | | | | + + + + + + + | ERYTHROCYTE | 2021-09-28 | [facility] | 33.8 | g/dl | (missing) | | MEAN | 23:31 | Health | | | | | CORPUSCULAR | | System - | | | | | HEMOGLOBIN | | [place] | | | | | CONCENTRATIO | [...] | | | | HEMOGLOBIN | | [place] | | | | | CONCENTRATIO | [...] | | | | LEUKOCYTES | | [place] | | | | | IN BLOOD [...] | | | | LEUKOCYTES | | [place] | | | | | IN BLOOD [...] | | | | AUTOMATED | | [place] | | | | | COUNT | | | | | | + + + + + + + | HEMATOCRIT | 2021-09-28 | [facility] | 38.8 | % | (missing) | | (%) IN BLOOD | 23:31 | Health | | | | | BY | | System - | | | | | AUTOMATED | | [place] | | | | | COUNT | | | | | | + + + + + + + | | 2021-09-28 | [facility] | 4.31 | m/mcl | (missing) | | ERYTHROCYTES | 23:31 | Health | | | | | (10*6/UL) | | System - | | | | | IN BLOOD BY | | [place] | | | | | AUTOMATED | [...] | | IN BLOOD BY | | [place] | | | | | AUTOMATED | [...] | | | | | | | [place] | | | | + + + + + + + | RBC (#/HPF) | 2021-09-28 | [facility] | 5 | /hpf | (missing) | | IN URINE | 23:31 | Health | | | | | SEDIMENT | | System - | | | | | | | [place] | | | | + + + + + + + | NEUTROPHILS | 2021-09-28 | [facility] | 5.3 | k/mcl | (missing) | | (10*3/UL) | 23:31 | Health | | | | | IN BLOOD BY | | System - | | | | | AUTOMATED | | [place] | | | | | COUNT | | | | | | + + + + + + + | NEUTROPHILS | 2021-09-28 | [facility] | 5.3 | k/mcl | (missing) | | (10*3/UL) | 23:31 | Health | | | | | IN BLOOD BY | | System - | | | | | AUTOMATED | | [place] | | | | | COUNT | | | | | | + + + + + + + | PH OF URINE | 2021-09-28 | [facility] | 5.5 | (missing) | (missing) | | | 23:31 | Health | | | | | | | System - | | | | | | | [place] | | | | + + + + + + + | PH OF URINE | 2021-09-28 | [facility] | 5.5 | (missing) | (missing) | | | 23:31 | Health | | | | | | | System - | | | | | | | [place] | | | | + + + + + + + | | 2021-09-28 | [facility] | 5.6 | % | (missing) | | MONOCYTES/10 | 23:31 | Health | | | | | 0 LEUKOCYTES | | System - | | | | | IN BLOOD BY | | [place] | | | | | AUTOMATED | [...] | | IN BLOOD BY | | [place] | | | | | AUTOMATED | [...] | | | | SER/PLAS | | [place] | | | | + + + + + + + | ALKALINE | 2021-09-28 | [facility] | 51 | u/l | (missing) | | PHOSPHATASE | 23:31 | Health | | | | | (U/L) IN | | System - | | | | | SER/PLAS | | [place] | | | | + + + + + + + | | 2021-09-28 | [facility] | 52.8 | % | (missing) | | NEUTROPHILS/ | 23:31 | Health | | | | | 100 | | System - | | | | | LEUKOCYTES | | [place] | | | | | IN BLOOD BY | | | | | | | AUTOMATED | | | | | | | COUNT | | | | | | + + + + + + + | | 2021-09-28 | [facility] | 52.8 | % | (missing) | | NEUTROPHILS/ | : | Health | | | | | 100 | | System - | | | | | LEUKOCYTES | | [place] | | | | | IN BLOOD [...] | | | | | | | [place] | | | | + + + + + + + | PROTEIN | 2021-09-28 | [facility] | 6.0 | g/dl | (missing) | | (G/DL) IN | 23:31 | Health | | | | | SER/PLAS | | System - | | | | | | | [place] | | | | + + + + + + + | CALCIUM | 2021-09-28 | [facility] | 8.3 | mg/dl | (missing) | | (MG/DL) IN | :31 | Health | | | | | SER/PLAS | | System - | | | | | | | [place] | | | | + + + + + + + | CALCIUM | 2021-09-28 | [facility] | 8.3 | mg/dl | (missing) | | (MG/DL) IN | | Health | | | | | SER/PLAS | | System - | | | | | | | [place] | | | | + + + + + + + | PLATELET | 2021-09-28 | [facility] | 9.4 | fl | (missing) | | MEAN VOLUME | | Health | | | | | (FL) IN | | System - | | | | | BLOOD BY | | [place] | | | | | AUTOMATED | [...] | | | BLOOD BY | | [place] | | | | | AUTOMATED | [...] | | | VOLUME (FL) | | [place] | | | | | BY AUTOMATED [...] | | | VOLUME (FL) | | [place] | | | | | BY AUTOMATED [...] | | | | SER/PLAS | | [place] | | | | + + + + + + + | GLUCOSE, | 2021-09-28 | [facility] | 99 | mg/dl | (missing) | | RANDOM | 23:31 | Health | | | | | (MG/DL) IN | | System - | | | | | SER/PLAS | | [place] | | | | + + + + + + + | CLARITY OF | 2021-09-28 | [facility] | Hazy | (missing) | (missing) | | URINE | 23:31 | Health | | | | | | | System - | | | | | | | [place] | | | | + + + + + + + | CLARITY OF | 2021-09-28 | [facility] | Hazy | (missing) | (missing) | | URINE | 23:31 | Health | | | | | | | System - | | | | | | | [place] | | | | + + + + + + + | | 2021-09-28 | [facility] | Negative | (missing) | (missing) | | BARBITURATES | 23:31 | Health | | | | | PRESENCE IN | | System - | | | | | URINE BY | | [place] | | | | | SCREEN | [...] | | | | (PRESENCE) | | [place] | | | | | IN URINE [...] | | | | URINE | | [place] | | | | + + + + + + + | COCAINE | 2021-09-28 | [facility] | Negative | (missing) | (missing) | | (PRESENCE) | 23:31 | Health | | | | | IN URINE BY | | System - | | | | | SCREEN | | [place] | | | | | METHOD | | | | | | + + + + + + + | GLUCOSE IN | 2021-09-28 | [facility] | Negative | (missing) | (missing) | | URINE | 23:31 | Health | | | | | | | System - | | | | | | | [place] | | | | + + + + + + + | KETONES IN | 2021-09-28 | [facility] | Negative | (missing) | (missing) | | URINE | 23:31 | Health | | | | | | | System - | | | | | | | [place] | | | | + + + + + + + | METHADONE | 2021-09-28 | [facility] | Negative | (missing) | (missing) | | (PRESENCE) | 23:31 | Health | | | | | IN URINE BY | | System - | | | | | SCREEN | | [place] | | | | | METHOD | | | | | | + + + + + + + | NITRITE | 2021-09-28 | [facility] | Negative | (missing) | (missing) | | PRESENCE IN | 23:31 | Health | | | | | URINE | | System - | | | | | | | [place] | | | | + + + + + + + | OPIATES | 2021-09-28 | [facility] | Negative | (missing) | (missing) | | (PRESENCE) | 23:31 | Health | | | | | IN URINE BY | | System - | | | | | SCREEN | | [place] | | | | | METHOD | | | | | | + + + + + + + | OXYCODONE | 2021-09-28 | [facility] | Negative | (missing) | (missing) | | (PRESENCE) | 23:31 | Health | | | | | IN URINE BY | | System - | | | | | SCREEN | | [place] | | | | | METHOD | | | | | | + + + + + + + | | 2021-09-28 | [facility] | Negative | (missing) | (missing) | | PHENCYCLIDIN | 23:31 | Health | | | | | E (PRESENCE) | | System - | | | | | IN URINE BY | | [place] | | | | | SCREEN | [...] | | | | (PRESENCE) | | [place] | | | | | IN URINE | | | | | | + + + + + + + | | 2021-09-28 | [facility] | Negative | (missing) | (missing) | | PHENCYCLIDIN | 23:31 | Health | | | | | E (PRESENCE) | | System - | | | | | IN URINE BY | | [place] | | | | | SCREEN | [...] | | | | SCREEN | | [place] | | | | | METHOD | | | | | | + + + + + + + | TRICYCLIC | 2021-09-28 | [facility] | Negative | (missing) | (missing) | | ANTIDEPRESSA | 23:31 | Health | | | | | NTS | | System - | | | | | (PRESENCE) | | [place] | | | | | IN URINE | | | | | | + + + + + + + | OXYCODONE | 2021-09-28 | [facility] | Negative | (missing) | (missing) | | (PRESENCE) | 23:31 | Health | | | | | IN URINE BY | | System - | | | | | SCREEN | | [place] | | | | | METHOD | | | | | | + + + + + + + | BILIRUBIN, | 2021-09-28 | [facility] | Negative | (missing) | (missing) | | TOTAL | 23:31 | Health | | | | | PRESENCE IN | | System - | | | | | URINE | | [place] | | | | + + + + + + + | [facility]CG QUAL | 2021-09-28 | [facility] | Negative | (missing) | (missing) | | (CHORIOGONAD | 23:31 | Health | | | | | OTROPIN) IN | | System - | | | | | SER/PLAS | | [place] | | | | + + + + + + + | GLUCOSE IN | 2021-09-28 | [facility] | Negative | (missing) | (missing) | | URINE | 23:31 | Health | | | | | | | System - | | | | | | | [place] | | | | + + + + + + + | COCAINE | 2021-09-28 | [facility] | Negative | (missing) | (missing) | | (PRESENCE) | 23:31 | Health | | | | | IN URINE BY | | System - | | | | | SCREEN | | [place] | | | | | METHOD | | | | | | + + + + + + + | NITRITE | 2021-09-28 | [facility] | Negative | (missing) | (missing) | | PRESENCE IN | 23:31 | Health | | | | | URINE | | System - | | | | | | | [place] | | | | + + + + + + + | KETONES IN | 2021-09-28 | [facility] | Negative | (missing) | (missing) | | URINE | 23:31 | Health | | | | | | | System - | | | | | | | [place] | | | | + + + + + + + | | 2021-09-28 | [facility] | Negative | (missing) | (missing) | | BARBITURATES | 23:31 | Health | | | | | PRESENCE IN | | System - | | | | | URINE BY | | [place] | | | | | SCREEN | [...] | | | | (PRESENCE) | | [place] | | | | | IN URINE [...] | | | | SCREEN | | [place] | | | | | METHOD | | | | | | + + + + + + + | [facility] QUAL | 2021-09-28 | [facility] | Negative | (missing) | (missing) | | (CHORIOGONAD | 23:31 | Health | | | | | OTROPIN) IN | | System - | | | | | SER/PLAS | | [place] | | | | + + + + + + + | | 2021-09-28 | [facility] | Normal | mg/dl | (missing) | | UROBILINOGEN | 23:31 | Health | | | | | (MG/DL) IN | | System - | | | | | URINE BY | | [place] | | | | | TEST STRIP | | | | | | + + + + + + + | | 2021-09-28 | [facility] | Normal | mg/dl | (missing) | | UROBILINOGEN | 23:31 | Health | | | | | (MG/DL) IN | | System - | | | | | URINE BY | | [place] | | | | | TEST STRIP | | | | | | + + + + + + + | | 2021-09-28 | [facility] | Presumptive | (missing) | (missing) | | METHAMPHETAM | 23:31 | Health | Positive | | | | INE | | System - | | | | | (PRESENCE) | | [place] | | | | | IN URINE [...] | | | BY SCREEN | | [place] | | | | | METHOD | | | | | | + + + + + + + | THC | 2021-09-28 | [facility] | Presumptive | (missing) | (missing) | | (CANNABINOID | 23:31 | Health | Positive | | | | ) IN URINE | | System - | | | | | BY SCREEN | | [place] | | | | | METHOD | | | | | | + + + + + + + | AMPHETAMINE | 2021-09-28 | [facility] | Presumptive | (missing) | (missing) | | (PRESENCE) | 23:31 | Health | Positive | | | | IN URINE BY | | System - | | | | | SCREEN | | [place] | | | | | METHOD | | | | | | + + + + + + + | | 2021-09-28 | [facility] | Presumptive | (missing) | (missing) | | METHAMPHETAM | 23:31 | Health | Positive | | | | INE | | System - | | | | | (PRESENCE) | | [place] | | | | | IN URINE [...] | | | | SCREEN | | [place] | | | | | METHOD | | | | | | + + + + + + + | HEMOGLOBIN | 2021-09-28 | [facility] | Trace | (missing) | (missing) | | PRESENCE IN | 23:31 | Health | | | | | URINE | | System - | | | | | | | [place] | | | | + + + + + + + | MUCUS | 2021-09-28 | [facility] | Trace | (missing) | (missing) | | (#/HPF) IN | 23:31 | Health | | | | | URINE | | System - | | | | | SEDIMENT | | [place] | | | | + + + + + + + | PROTEIN IN | 2021-09-28 | [facility] | Trace | (missing) | (missing) | | URINE BY | 23:31 | Health | | | | | TEST STRIP | | System - | | | | | | | [place] | | | | + + + + + + + | MUCUS | 2021-09-28 | [facility] | Trace | (missing) | (missing) | | (#/HPF) IN | 23:31 | Health | | | | | URINE | | System - | | | | | SEDIMENT | | [place] | | | | + + + + + + + | PROTEIN IN | 2021-09-28 | [facility] | Trace | (missing) | (missing) | | URINE BY | 23:31 | Health | | | | | TEST STRIP | | System - | | | | | | | [place] | | | | + + + + + + + | HEMOGLOBIN | 2021-09-28 | [facility] | Trace | (missing) | (missing) | | PRESENCE IN | 23:31 | Health | | | | | URINE | | System - | | | | | | | [place] | | | | + + + + + + + | COLOR OF | 2021-09-28 | [facility] | Yellow | (missing) | (missing) | | URINE | 23:31 | Health | | | | | | | System - | | | | | | | [place] | | | | + + + + + + + | COLOR OF | 2021-09-28 | [facility] | Yellow | (missing) | (missing) | | URINE | 23:31 | Health | | | | | | | System - | | | | | | | [place] | | | | + + + + + + + + + | Result panel 35 | + + + + + + + + + | INFLUENZA A | 2021-09-28 | [facility] | Negative | (missing) | (missing) | | | 23:33 | Health | | | | | | | System - | | | | | | | [place] | | | | + + + + + + + | INFLUENZA B | 2021-09-28 | [facility] | Negative | (missing) | (missing) | | | 23:33 | Health | | | | | | | System - | | | | | | | [place] | | | | + + + + + + + | RSV | 2021-09-28 | [facility] | Negative | (missing) | (missing) | | | 23:33 | Health | | | | | | | System - | | | | | | | [place] | | | | + + + + + + + | SARS-COV-2 | 2021-09-28 | [facility] | Negative | (missing) | (missing) | | (COVID19) | 23:33 | Health | | | | | CEPHEID PCR | | System - | | | | | | | [place] | | | | + + + + + + + | INFLUENZA A | 2021-09-28 | [facility] | Negative | (missing) | (missing) | | | 23:33 | Health | | | | | | | System - | | | | | | | [place] | | | | + + + + + + + | INFLUENZA B | 2021-09-28 | [facility] | Negative | (missing) | (missing) | | | 23:33 | Health | | | | | | | System - | | | | | | | [place] | | | | + + + + + + + | RSV | 2021-09-28 | [facility] | Negative | (missing) | (missing) | | | 23:33 | Health | | | | | | | System - | | | | | | | [place] | | | | + + + + + + + | SARS-COV-2 | 2021-09-28 | [facility] | Negative | (missing) | (missing) | | (COVID19) | 23:33 | Health | | | | | CEPHEID PCR | | System - | | | | | | | [place] | | | | + + + [...] | | | | | | | [place] | | | | + + + + + + + | SPECIFIC | 2021-09-29 | [facility] | 1.033 | (missing) | (missing) | | GRAVITY OF | 01:10 | Health | | | | | URINE BY | | System - | | | | | AUTOMATED | | [place] | | | | | TEST STRIP | | | | | | + + + + + + + | SQUAMOUS | 2021-09-29 | [facility] | 14 | /hpf | (missing) | | EPITHELIAL | 01:10 | Health | | | | | CELLS | | System - | | | | | (#/HPF) IN | | [place] | | | | | URINE | [...] | | | | URINE | | [place] | | | | | SEDIMENT | | | | | | + + + + + + + | LEUKOCYTE | 2021-09-29 | [facility] | 3 | (missing) | (missing) | | ESTERASE | 01:10 | Health | | | | | PRESENCE IN | | System - | | | | | URINE BY | | [place] | | | | | TEST STRIP | | | | | | + + + + + + + | RBC (#/HPF) | 2021-09-29 | [facility] | 5 | /hpf | (missing) | | IN URINE | 01:10 | Health | | | | | SEDIMENT | | System - | | | | | | | [place] | | | | + + + + + + + | PH OF URINE | 2021-09-29 | [facility] | 5.5 | (missing) | (missing) | | | 01:10 | Health | | | | | | | System - | | | | | | | [place] | | | | + + + + + + + | CLARITY OF | 2021-09-29 | [facility] | Hazy | (missing) | (missing) | | URINE | 01:10 | Health | | | | | | | System - | | | | | | | [place] | | | | + + + + + + + | BILIRUBIN, | 2021-09-29 | [facility] | Negative | (missing) | (missing) | | TOTAL | 01:10 | Health | | | | | PRESENCE IN | | System - | | | | | URINE | | [place] | | | | + + + + + + + | GLUCOSE IN | 2021-09-29 | [facility] | Negative | (missing) | (missing) | | URINE | 01:10 | Health | | | | | | | System - | | | | | | | [place] | | | | + + + + + + + | NITRITE | 2021-09-29 | [facility] | Negative | (missing) | (missing) | | PRESENCE IN | 01:10 | Health | | | | | URINE | | System - | | | | | | | [place] | | | | + + + + + + + | KETONES IN | 2021-09-29 | [facility] | Negative | (missing) | (missing) | | URINE | 01:10 | Health | | | | | | | System - | | | | | | | [place] | | | | + + + + + + + | URINE | 2021-09-29 | [facility] | Normal | (missing) | (missing) | | CULTURE | 01:10 | Health | urogenital | | | | | | System - | microbiota | | | | | | [place] | | | | + + + + + + + | URINE | 2021-09-29 | [facility] | Normal | (missing) | (missing) | | CULTURE | 01:10 | Health | urogenital | | | | | | System - | microbiota | | | | | | [place] | | | | + + + + + + + | | 2021-09-29 | [facility] | Normal | mg/dl | (missing) | | UROBILINOGEN | 01:10 | Health | | | | | (MG/DL) IN | | System - | | | | | URINE BY | | [place] | | | | | TEST STRIP | | | | | | + + + + + + + | MUCUS | 2021-09-29 | [facility] | Trace | (missing) | (missing) | | (#/HPF) IN | 01:10 | Health | | | | | URINE | | System - | | | | | SEDIMENT | | [place] | | | | + + + + + + + | PROTEIN IN | 2021-09-29 | [facility] | Trace | (missing) | (missing) | | URINE BY | 01:10 | Health | | | | | TEST STRIP | | System - | | | | | | | [place] | | | | + + + + + + + | HEMOGLOBIN | 2021-09-29 | [facility] | Trace | (missing) | (missing) | | PRESENCE IN | 01:10 | Health | | | | | URINE | | System - | | | | | | | [place] | | | | + + + + + + + | COLOR OF | 2021-09-29 | [facility] | Yellow | (missing) | (missing) | | URINE | 01:10 | Health | | | | | | | System - | | | | | | | [place] | | | | + + + + + + + + + | Result panel 37 | + + + + + + + + + | | 2021-09-29 | [facility] | (missing) | (missing) | (missing) | | (unavailable | 14:39 | Health | | | | | ) | | System - | | | | | | | [place] | | | | + + + + + + + | EGFR | 2021-09-29 | [facility] | > | | (missing) | | (GLOMERULAR | 14:39 | Health | | ml/min/1.73m | | | FILTRATION | | System - | | ? | | | RATE) | | [place] | | | | | ML/MIN/1.73 | [...] ? | | | RATE) | | [place] | | | | | ML/MIN/1.73 | [...] | | | | COUNT | | [place] | | | | + + + + + + + | NRBC/100 | 2021-09-29 | [facility] | 0.0 | % | (missing) | | WBCS BY | 14:39 | Health | | | | | AUTOMATED | | System - | | | | | COUNT | | [place] | | | | + + + + + + + | | 2021-09-29 | [facility] | 0.0 | k/mcl | (missing) | | NRBC(10*3/UL | 14:39 | Health | | | | | ) IN BLOOD | | System - | | | | | BY AUTOMATED | | [place] | | | | | COUNT | | | | | | + + + + + + + | | 2021-09-29 | [facility] | 0.0 | k/mcl | (missing) | | NRBC(10*3/UL | 14:39 | Health | | | | | ) IN BLOOD | | System - | | | | | BY AUTOMATED | | [place] | | | | | COUNT | | | | | | + + + + + + + | IMMATURE | 2021-09-29 | [facility] | 0.08 | k/mcl | (missing) | | GRANULOCYTE | 14:39 | Health | | | | | (ABS) | | System - | | | | | | | [place] | | | | + + + + + + + | IMMATURE | 2021-09-29 | [facility] | 0.08 | k/mcl | (missing) | | GRANULOCYTE | 14:39 | Health | | | | | (ABS) | | System - | | | | | | | [place] | | | | + + + + + + + | BASOPHILS | 2021-09-29 | [facility] | 0.1 | k/mcl | (missing) | | (10*3/UL) IN | 14:39 | Health | | | | | BLOOD BY | | System - | | | | | AUTOMATED | | [place] | | | | | COUNT | | | | | | + + + + + + + | EOSINOPHILS | 2021-09-29 | [facility] | 0.1 | k/mcl | (missing) | | (10*3/UL) | 14:39 | Health | | | | | IN BLOOD BY | | System - | | | | | AUTOMATED | | [place] | | | | | COUNT | | | | | | + + + + + + + | BASOPHILS | 2021-09-29 | [facility] | 0.1 | k/mcl | (missing) | | (10*3/UL) IN | 14:39 | Health | | | | | BLOOD BY | | System - | | | | | AUTOMATED | | [place] | | | | | COUNT | | | | | | + + + + + + + | EOSINOPHILS | 2021-09-29 | [facility] | 0.1 | k/mcl | (missing) | | (10*3/UL) | 14:39 | Health | | | | | IN BLOOD BY | | System - | | | | | AUTOMATED | | [place] | | | | | COUNT | | | | | | + + + + + + + | IMMATURE | 2021-09-29 | [facility] | 0.5 | % | (missing) | | GRANULOCYTE | 14:39 | Health | | | | | % (AUTO) | | System - | | | | | | | [place] | | | | + + + + + + + | | 2021-09-29 | [facility] | 0.5 | % | (missing) | | BASOPHILS/10 | 14:39 | Health | | | | | 0 LEUKOCYTES | | System - | | | | | IN BLOOD BY | | [place] | | | | | AUTOMATED | [...] | | IN BLOOD BY | | [place] | | | | | AUTOMATED | [...] | | | | | | | [place] | | | | + + + + + + + | | 2021-09-29 | [facility] | 0.7 | % | (missing) | | EOSINOPHILS/ | 14:39 | Health | | | | | 100 | | System - | | | | | LEUKOCYTES | | [place] | | | | | IN BLOOD [...] | | | | LEUKOCYTES | | [place] | | | | | IN BLOOD [...] | | | | | | | [place] | | | | + + + + + + + | CREATININE | 2021-09-29 | [facility] | 0.7 | mg/dl | (missing) | | (MG/DL) IN | 14:39 | Health | | | | | SER/PLAS | | System - | | | | | | | [place] | | | | + + + + + + + | MONOCYTES | 2021-09-29 | [facility] | 0.8 | k/mcl | (missing) | | (10*3/UL) IN | 14:39 | Health | | | | | BLOOD BY | | System - | | | | | AUTOMATED | | [place] | | | | | COUNT | | | | | | + + + + + + + | MONOCYTES | 2021-09-29 | [facility] | 0.8 | k/mcl | (missing) | | (10*3/UL) IN | 14:39 | Health | | | | | BLOOD BY | | System - | | | | | AUTOMATED | | [place] | | | | | COUNT | | | | | | + + + + + + + | NEUTROPHILS | 2021-09-29 | [facility] | 10.9 | k/mcl | (missing) | | (10*3/UL) | 14:39 | Health | | | | | IN BLOOD BY | | System - | | | | | AUTOMATED | | [place] | | | | | COUNT | | | | | | + + + + + + + | NEUTROPHILS | 2021-09-29 | [facility] | 10.9 | k/mcl | (missing) | | (10*3/UL) | 14:39 | Health | | | | | IN BLOOD BY | | System - | | | | | AUTOMATED | | [place] | | | | | COUNT | | | | | | + + + + + + + | CHLORIDE | 2021-09-29 | [facility] | 104 | mmol/l | (missing) | | (MMOL/L) IN | 14:39 | Health | | | | | SER/PLAS | | System - | | | | | | | [place] | | | | + + + + + + + | CHLORIDE | 2021-09-29 | [facility] | 104 | mmol/l | (missing) | | (MMOL/L) IN | 14:39 | Health | | | | | SER/PLAS | | System - | | | | | | | [place] | | | | + + + + + + + | ERYTHROCYTE | 2021-09-29 | [facility] | 12.0 | % | (missing) | | | 14:39 | Health | | | | | DISTRIBUTION | | System - | | | | | WIDTH | | [place] | | | | | (RATIO) BY [...] | | | | WIDTH | | [place] | | | | | (RATIO) BY [...] | | | | | | | [place] | | | | + + + + + + + | SODIUM | 2021-09-29 | [facility] | 138 | mmol/l | (missing) | | (MMOL/L) IN | 14:39 | Health | | | | | SER/PLAS | | System - | | | | | | | [place] | | | | + + + + + + + | HEMOGLOBIN | 2021-09-29 | [facility] | 14.5 | g/dl | (missing) | | (G/DL) IN | 14:39 | Health | | | | | BLOOD | | System - | | | | | | | [place] | | | | + + + + + + + | HEMOGLOBIN | 2021-09-29 | [facility] | 14.5 | g/dl | (missing) | | (G/DL) IN | 14:39 | Health | | | | | BLOOD | | System - | | | | | | | [place] | | | | + + + + + + + | | 2021-09-29 | [facility] | 15.5 | k/mcl | (missing) | | LEUKOCYTES(1 | 14:39 | Health | | | | | 0*3/UL) IN | | System - | | | | | BLOOD BY | | [place] | | | | | AUTOMATED | [...] | | | BLOOD BY | | [place] | | | | | AUTOMATED | [...] | | | (MMOL/L) IN | | [place] | | | | | SER/PLAS | | | | | | + + + + + + + | CARBON | 2021-09-29 | [facility] | 16 | mmol/l | (missing) | | DIOXIDE | 14:39 | Health | | | | | (CO2), TOTAL | | System - | | | | | (MMOL/L) IN | | [place] | | | | | SER/PLAS | | | | | | + + + + + + + | ANION GAP | 2021-09-29 | [facility] | 18.0 | mmol/l | (missing) | | IN SER/PLAS | 14:39 | Health | | | | | | | System - | | | | | | | [place] | | | | + + + + + + + | ANION GAP | 2021-09-29 | [facility] | 18.0 | mmol/l | (missing) | | IN SER/PLAS | 14:39 | Health | | | | | | | System - | | | | | | | [place] | | | | + + + + + + + | | 2021-09-29 | [facility] | 23.1 | % | (missing) | | LYMPHOCYTES/ | 14:39 | Health | | | | | 100 | | System - | | | | | LEUKOCYTES | | [place] | | | | | IN BLOOD [...] | | | | LEUKOCYTES | | [place] | | | | | IN BLOOD [...] | | | | | | | [place] | | | | + + + + + + + | POTASSIUM | 2021-09-29 | [facility] | 3.5 | mmol/l | (missing) | | (MMOL/L) IN | 14:39 | Health | | | | | SER/PLAS | | System - | | | | | | | [place] | | | | + + + + + + + | LYMPHOCYTES | 2021-09-29 | [facility] | 3.6 | k/mcl | (missing) | | (10*3/UL) | 14:39 | Health | | | | | IN BLOOD BY | | System - | | | | | AUTOMATED | | [place] | | | | | COUNT | | | | | | + + + + + + + | LYMPHOCYTES | 2021-09-29 | [facility] | 3.6 | k/mcl | (missing) | | (10*3/UL) | 14:39 | Health | | | | | IN BLOOD BY | | System - | | | | | AUTOMATED | | [place] | | | | | COUNT | | | | | | + + + + + + + | ERYTHROCYTE | 2021-09-29 | [facility] | 30.3 | pg | (missing) | | MEAN | 14:39 | Health | | | | | CORPUSCULAR | | System - | | | | | HEMOGLOBIN | | [place] | | | | | (PG) BY [...] | | | | HEMOGLOBIN | | [place] | | | | | (PG) BY [...] | | | | HEMOGLOBIN | | [place] | | | | | CONCENTRATIO | [...] | | | | HEMOGLOBIN | | [place] | | | | | CONCENTRATIO | [...] | | | | AUTOMATED | | [place] | | | | | COUNT | | | | | | + + + + + + + | PLATELETS | 2021-09-29 | [facility] | 381 | k/mcl | (missing) | | (10*3/UL) IN | 14:39 | Health | | | | | BLOOD | | System - | | | | | AUTOMATED | | [place] | | | | | COUNT | | | | | | + + + + + + + | | 2021-09-29 | [facility] | 4.79 | m/mcl | (missing) | | ERYTHROCYTES | 14:39 | Health | | | | | (10*6/UL) | | System - | | | | | IN BLOOD BY | | [place] | | | | | AUTOMATED | [...] | | IN BLOOD BY | | [place] | | | | | AUTOMATED | [...] | | IN BLOOD BY | | [place] | | | | | AUTOMATED | [...] | | IN BLOOD BY | | [place] | | | | | AUTOMATED | [...] | | | | AUTOMATED | | [place] | | | | | COUNT | | | | | | + + + + + + + | HEMATOCRIT | 2021-09-29 | [facility] | 42.8 | % | (missing) | | (%) IN BLOOD | 14:39 | Health | | | | | BY | | System - | | | | | AUTOMATED | | [place] | | | | | COUNT | | | | | | + + + + + + + | | 2021-09-29 | [facility] | 70.4 | % | (missing) | | NEUTROPHILS/ | 14:39 | Health | | | | | 100 | | System - | | | | | LEUKOCYTES | | [place] | | | | | IN BLOOD [...] | | | | LEUKOCYTES | | [place] | | | | | IN BLOOD [...] | | | (MG/DL) IN | | [place] | | | | | SER/PLAS | | | | | | + + + + + + + | BLOOD UREA | 2021-09-29 | [facility] | 8 | mg/dl | (missing) | | NITROGEN | 14:39 | Health | | | | | (BUN) | | System - | | | | | (MG/DL) IN | | [place] | | | | | SER/PLAS | | | | | | + + + + + + + | ERYTHROCYTE | 2021-09-29 | [facility] | 89.4 | fl | (missing) | | MEAN | 14:39 | Health | | | | | CORPUSCULAR | | System - | | | | | VOLUME (FL) | | [place] | | | | | BY AUTOMATED [...] | | | VOLUME (FL) | | [place] | | | | | BY AUTOMATED [...] | | | | | | | [place] | | | | + + + + + + + | CALCIUM | 2021-09-29 | [facility] | 9.2 | mg/dl | (missing) | | (MG/DL) IN | 14:39 | Health | | | | | SER/PLAS | | System - | | | | | | | [place] | | | | + + + + + + + | PLATELET | 2021-09-29 | [facility] | 9.3 | fl | (missing) | | MEAN VOLUME | 14:39 | Health | | | | | (FL) IN | | System - | | | | | BLOOD BY | | [place] | | | | | AUTOMATED | [...] | | | BLOOD BY | | [place] | | | | | AUTOMATED | [...] | | | | SER/PLAS | | [place] | | | | + + + + + + + | GLUCOSE, | 2021-09-29 | [facility] | 93 | mg/dl | (missing) | | RANDOM | 14:39 | Health | | | | | (MG/DL) IN | | System - | | | | | SER/PLAS | | [place] | | | | + + + + + + + | | 2021-09-29 | [facility] | BONES: No | (missing) | (missing) | | (unavailable | 14:39 | Health | acute or | | | | ) | | System - | suspicious | | | | | | [place] | bony | | | | | [...] most | | | | | | [place] | recently | | | | | [...] Amber | | | | | | [place] | MD Juan Pablo | | | | | | | on 09/29/2021 | | | | | | | 3:17 PM at | | | | | | | workstation | | | | | | | [phone] | | | + + + + + + + | | 2021-09-29 | [facility] | FINDINGS: | (missing) | (missing) | | (unavailable | 14:39 | Health | | | | | ) | | System - | | | | | | | [place] | | | | + + + + + + + | | 2021-09-29 | [facility] | HEART: | (missing) | (missing) | | (unavailable | 14:39 | Health | Normal in | | | | ) | | System - | size and | | | | | | [place] | appearance. | | | + + + + + + + | | 2021-09-29 | [facility] | | (missing) | (missing) | | (unavailable | 14:39 | Health | INDICATIONS: | | | | ) | | System - | SOB no | | | | | | [place] | cough hx | | | | | | | asthma | | | + + + + + + + | | 2021-09-29 | [facility] | LUNGS: No | (missing) | (missing) | | (unavailable | 14:39 | Health | focal | | | | ) | | System - | consolidatio | | | | | | [place] | n or | | | | [...] mediastinal | | | | | | [place] | contours | | | | | [...] of | | | | | | [place] | acute | | | | | [...] pleural | | | | | | [place] | effusion or | | | | [...] VIEWS | | | | | | [place] | | | | + + + + + + + | | 2021-09-29 | [facility] | | (missing) | (missing) | | (unavailable | 14:39 | Health | Procedure(s) | | | | ) | | System - | : * No | | | | | | [place] | procedures | | | | | [...] | | | IN SER/PLAS | | [place] | | | | + + + +--------+ + + | TSH | 2021-09-29 | [facility] | 1.72 | mciu/ml | (missing) | | (THYROTROPIN | 14:46 | Health | | | | | ) (UIU/ML) | | System - | | | | | IN SER/PLAS | | [place] | | | | + + + [...] | | | | | | | [place] | | | | + + + + + + + | ALCOHOL | 2021-09-29 | [facility] | < | g/dl | (missing) | | (G/DL) IN | 14:52 | Health | | | | | SER/PLAS | | System - | | | | | | | [place] | | | | + + + + + + + | | 2021-09-29 | [facility] | < | mcg/ml | (missing) | | ACETAMINOPHE | 14:52 | Health | | | | | N (UG/ML) IN | | System - | | | | | SER/PLAS | | [place] | | | | + + + + + + + | | 2021-09-29 | [facility] | < | mcg/ml | (missing) | | ACETAMINOPHE | 14:52 | Health | | | | | N (UG/ML) IN | | System - | | | | | SER/PLAS | | [place] | | | | + + + + + + + | SALICYLATE | 2021-09-29 | [facility] | < | mg/dl | (missing) | | (MG/DL) IN | 14:52 | Health | | | | | SER/PLAS | | System - | | | | | | | [place] | | | | + + + + + + + | SALICYLATE | 2021-09-29 | [facility] | < | mg/dl | (missing) | | (MG/DL) IN | 14:52 | Health | | | | | SER/PLAS | | System - | | | | | | | [place] | | | | + + + + + + + | | 2021-09-29 | [facility] | Negative | (missing) | (missing) | | BARBITURATES | 14:52 | Health | | | | | PRESENCE IN | | System - | | | | | URINE BY | | [place] | | | | | SCREEN | [...] | | | | (PRESENCE) | | [place] | | | | | IN URINE [...] | | | | SCREEN | | [place] | | | | | METHOD | | | | | | + + + + + + + | METHADONE | 2021-09-29 | [facility] | Negative | (missing) | (missing) | | (PRESENCE) | 14:52 | Health | | | | | IN URINE BY | | System - | | | | | SCREEN | | [place] | | | | | METHOD | | | | | | + + + + + + + | OPIATES | 2021-09-29 | [facility] | Negative | (missing) | (missing) | | (PRESENCE) | 14:52 | Health | | | | | IN URINE BY | | System - | | | | | SCREEN | | [place] | | | | | METHOD | | | | | | + + + + + + + | OXYCODONE | 2021-09-29 | [facility] | Negative | (missing) | (missing) | | (PRESENCE) | 14:52 | Health | | | | | IN URINE BY | | System - | | | | | SCREEN | | [place] | | | | | METHOD | | | | | | + + + + + + + | | 2021-09-29 | [facility] | Negative | (missing) | (missing) | | PHENCYCLIDIN | 14:52 | Health | | | | | E (PRESENCE) | | System - | | | | | IN URINE BY | | [place] | | | | | SCREEN | [...] | | | BY SCREEN | | [place] | | | | | METHOD | | | | | | + + + + + + + | TRICYCLIC | 2021-09-29 | [facility] | Negative | (missing) | (missing) | | ANTIDEPRESSA | 14:52 | Health | | | | | NTS | | System - | | | | | (PRESENCE) | | [place] | | | | | IN URINE | | | | | | + + + + + + + | | 2021-09-29 | [facility] | Negative | (missing) | (missing) | | PHENCYCLIDIN | 14:52 | Health | | | | | E (PRESENCE) | | System - | | | | | IN URINE BY | | [place] | | | | | SCREEN | [...] | | | BY SCREEN | | [place] | | | | | METHOD | | | | | | + + + + + + + | OPIATES | 2021-09-29 | [facility] | Negative | (missing) | (missing) | | (PRESENCE) | 14:52 | Health | | | | | IN URINE BY | | System - | | | | | SCREEN | | [place] | | | | | METHOD | | | | | | + + + + + + + | TRICYCLIC | 2021-09-29 | [facility] | Negative | (missing) | (missing) | | ANTIDEPRESSA | 14:52 | Health | | | | | NTS | | System - | | | | | (PRESENCE) | | [place] | | | | | IN URINE | | | | | | + + + + + + + | AMPHETAMINE | 2021-09-29 | [facility] | Negative | (missing) | (missing) | | (PRESENCE) | 14:52 | Health | | | | | IN URINE BY | | System - | | | | | SCREEN | | [place] | | | | | METHOD | | | | | | + + + + + + + | OXYCODONE | 2021-09-29 | [facility] | Negative | (missing) | (missing) | | (PRESENCE) | 14:52 | Health | | | | | IN URINE BY | | System - | | | | | SCREEN | | [place] | | | | | METHOD | | | | | | + + + + + + + | COCAINE | 2021-09-29 | [facility] | Negative | (missing) | (missing) | | (PRESENCE) | 14:52 | Health | | | | | IN URINE BY | | System - | | | | | SCREEN | | [place] | | | | | METHOD | | | | | | + + + + + + + | | 2021-09-29 | [facility] | Negative | (missing) | (missing) | | BARBITURATES | 14:52 | Health | | | | | PRESENCE IN | | System - | | | | | URINE BY | | [place] | | | | | SCREEN | [...] | | | | (PRESENCE) | | [place] | | | | | IN URINE [...] | | | | SCREEN | | [place] | | | | | METHOD | | | | | | + + + + + + + | AMPHETAMINE | 2021-09-29 | [facility] | Negative | (missing) | (missing) | | (PRESENCE) | 14:52 | Health | | | | | IN URINE BY | | System - | | | | | SCREEN | | [place] | | | | | METHOD | | | | | | + + + + + + + | | 2021-09-29 | [facility] | Presumptive | (missing) | (missing) | | METHAMPHETAM | 14:52 | Health | Positive | | | | INE | | System - | | | | | (PRESENCE) | | [place] | | | | | IN URINE [...] | | | | (PRESENCE) | | [place] | | | | | IN URINE [...] | | | | | | | [place] | | | | + + + +-----+---------+ + | POCT | 2021-09-29 | [facility] | < | ng/ml | (missing) | | TROPONIN I | 15:08 | Health | | | | | | | System - | | | | | | | [place] | | | | + + + [...] ? | | | RATE) | | [place] | | | | | ML/MIN/1.73 | [...] ? | | | RATE) | | [place] | | | | | ML/MIN/1.73 | [...] | | | | | | | [place] | | | | + + + + + + + | ALCOHOL | 2021-10-04 | [facility] | < | g/dl | (missing) | | (G/DL) IN | 09:15 | Health | | | | | SER/PLAS | | System - | | | | | | | [place] | | | | + + + + + + + | | 2021-10-04 | [facility] | < | mcg/ml | (missing) | | ACETAMINOPHE | 09:15 | Health | | | | | N (UG/ML) IN | | System - | | | | | SER/PLAS | | [place] | | | | + + + + + + + | | 2021-10-04 | [facility] | < | mcg/ml | (missing) | | ACETAMINOPHE | 09:15 | Health | | | | | N (UG/ML) IN | | System - | | | | | SER/PLAS | | [place] | | | | + + + + + + + | SALICYLATE | 2021-10-04 | [facility] | < | mg/dl | (missing) | | (MG/DL) IN | 09:15 | Health | | | | | SER/PLAS | | System - | | | | | | | [place] | | | | + + + + + + + | BILIRUBIN | 2021-10-04 | [facility] | < | mg/dl | (missing) | | TOTAL | 09:15 | Health | | | | | (MG/DL) IN | | System - | | | | | SER/PLAS | | [place] | | | | + + + + + + + | BILIRUBIN | 2021-10-04 | [facility] | < | mg/dl | (missing) | | TOTAL | 09:15 | Health | | | | | (MG/DL) IN | | System - | | | | | SER/PLAS | | [place] | | | | + + + + + + + | SALICYLATE | 2021-10-04 | [facility] | < | mg/dl | (missing) | | (MG/DL) IN | 09:15 | Health | | | | | SER/PLAS | | System - | | | | | | | [place] | | | | + + + + + + + | NRBC/100 | 2021-10-04 | [facility] | 0.0 | % | (missing) | | WBCS BY | 09:15 | Health | | | | | AUTOMATED | | System - | | | | | COUNT | | [place] | | | | + + + + + + + | NRBC/100 | 2021-10-04 | [facility] | 0.0 | % | (missing) | | WBCS BY | 09:15 | Health | | | | | AUTOMATED | | System - | | | | | COUNT | | [place] | | | | + + + + + + + | | 2021-10-04 | [facility] | 0.0 | k/mcl | (missing) | | NRBC(10*3/UL | 09:15 | Health | | | | | ) IN BLOOD | | System - | | | | | BY AUTOMATED | | [place] | | | | | COUNT | | | | | | + + + + + + + | | 2021-10-04 | [facility] | 0.0 | k/mcl | (missing) | | NRBC(10*3/UL | 09:15 | Health | | | | | ) IN BLOOD | | System - | | | | | BY AUTOMATED | | [place] | | | | | COUNT | | | | | | + + + + + + + | IMMATURE | 2021-10-04 | [facility] | 0.02 | k/mcl | (missing) | | GRANULOCYTE | 09:15 | Health | | | | | (ABS) | | System - | | | | | | | [place] | | | | + + + + + + + | IMMATURE | 2021-10-04 | [facility] | 0.02 | k/mcl | (missing) | | GRANULOCYTE | 09:15 | Health | | | | | (ABS) | | System - | | | | | | | [place] | | | | + + + + + + + | BASOPHILS | 2021-10-04 | [facility] | 0.1 | k/mcl | (missing) | | (10*3/UL) IN | 09:15 | Health | | | | | BLOOD BY | | System - | | | | | AUTOMATED | | [place] | | | | | COUNT | | | | | | + + + + + + + | BASOPHILS | 2021-10-04 | [facility] | 0.1 | k/mcl | (missing) | | (10*3/UL) IN | 09:15 | Health | | | | | BLOOD BY | | System - | | | | | AUTOMATED | | [place] | | | | | COUNT | | | | | | + + + + + + + | EOSINOPHILS | 2021-10-04 | [facility] | 0.2 | k/mcl | (missing) | | (10*3/UL) | 09:15 | Health | | | | | IN BLOOD BY | | System - | | | | | AUTOMATED | | [place] | | | | | COUNT | | | | | | + + + + + + + | EOSINOPHILS | 2021-10-04 | [facility] | 0.2 | k/mcl | (missing) | | (10*3/UL) | 09:15 | Health | | | | | IN BLOOD BY | | System - | | | | | AUTOMATED | | [place] | | | | | COUNT | | | | | | + + + + + + + | IMMATURE | 2021-10-04 | [facility] | 0.3 | % | (missing) | | GRANULOCYTE | 09:15 | Health | | | | | % (AUTO) | | System - | | | | | | | [place] | | | | + + + + + + + | IMMATURE | 2021-10-04 | [facility] | 0.3 | % | (missing) | | GRANULOCYTE | 09:15 | Health | | | | | % (AUTO) | | System - | | | | | | | [place] | | | | + + + + + + + | MONOCYTES | 2021-10-04 | [facility] | 0.5 | k/mcl | (missing) | | (10*3/UL) IN | 09:15 | Health | | | | | BLOOD BY | | System - | | | | | AUTOMATED | | [place] | | | | | COUNT | | | | | | + + + + + + + | MONOCYTES | 2021-10-04 | [facility] | 0.5 | k/mcl | (missing) | | (10*3/UL) IN | 09:15 | Health | | | | | BLOOD BY | | System - | | | | | AUTOMATED | | [place] | | | | | COUNT | | | | | | + + + + + + + | CREATININE | 2021-10-04 | [facility] | 0.7 | mg/dl | (missing) | | (MG/DL) IN | 09:15 | Health | | | | | SER/PLAS | | System - | | | | | | | [place] | | | | + + + + + + + | CREATININE | 2021-10-04 | [facility] | 0.7 | mg/dl | (missing) | | (MG/DL) IN | 09:15 | Health | | | | | SER/PLAS | | System - | | | | | | | [place] | | | | + + + + + + + | | 2021-10-04 | [facility] | 0.8 | % | (missing) | | BASOPHILS/10 | 09:15 | Health | | | | | 0 LEUKOCYTES | | System - | | | | | IN BLOOD BY | | [place] | | | | | AUTOMATED | [...] | | IN BLOOD BY | | [place] | | | | | AUTOMATED | [...] | | | | SER/PLAS | | [place] | | | | + + + + + + + | GLUCOSE, | 2021-10-04 | [facility] | 102 | mg/dl | (missing) | | RANDOM | 09:15 | Health | | | | | (MG/DL) IN | | System - | | | | | SER/PLAS | | [place] | | | | + + + + + + + | ANION GAP | 2021-10-04 | [facility] | 11.0 | mmol/l | (missing) | | IN SER/PLAS | 09:15 | Health | | | | | | | System - | | | | | | | [place] | | | | + + + + + + + | ANION GAP | 2021-10-04 | [facility] | 11.0 | mmol/l | (missing) | | IN SER/PLAS | 09:15 | Health | | | | | | | System - | | | | | | | [place] | | | | + + + + + + + | CHLORIDE | 2021-10-04 | [facility] | 111 | mmol/l | (missing) | | (MMOL/L) IN | 09:15 | Health | | | | | SER/PLAS | | System - | | | | | | | [place] | | | | + + + + + + + | CHLORIDE | 2021-10-04 | [facility] | 111 | mmol/l | (missing) | | (MMOL/L) IN | 09:15 | Health | | | | | SER/PLAS | | System - | | | | | | | [place] | | | | + + + + + + + | BLOOD UREA | 2021-10-04 | [facility] | 12 | mg/dl | (missing) | | NITROGEN | 09:15 | Health | | | | | (BUN) | | System - | | | | | (MG/DL) IN | | [place] | | | | | SER/PLAS | | | | | | + + + + + + + | BLOOD UREA | 2021-10-04 | [facility] | 12 | mg/dl | (missing) | | NITROGEN | 09:15 | Health | | | | | (BUN) | | System - | | | | | (MG/DL) IN | | [place] | | | | | SER/PLAS | | | | | | + + + + + + + | ERYTHROCYTE | 2021-10-04 | [facility] | 12.1 | % | (missing) | | | 09:15 | Health | | | | | DISTRIBUTION | | System - | | | | | WIDTH | | [place] | | | | | (RATIO) BY [...] | | | | WIDTH | | [place] | | | | | (RATIO) BY [...] | | | | | | | [place] | | | | + + + + + + + | HEMOGLOBIN | 2021-10-04 | [facility] | 13.3 | g/dl | (missing) | | (G/DL) IN | 09:15 | Health | | | | | BLOOD | | System - | | | | | | | [place] | | | | + + + + + + + | SODIUM | 2021-10-04 | [facility] | 142 | mmol/l | (missing) | | (MMOL/L) IN | 09:15 | Health | | | | | SER/PLAS | | System - | | | | | | | [place] | | | | + + + + + + + | SODIUM | 2021-10-04 | [facility] | 142 | mmol/l | (missing) | | (MMOL/L) IN | 09:15 | Health | | | | | SER/PLAS | | System - | | | | | | | [place] | | | | + + + + + + + | ASPARTATE | 2021-10-04 | [facility] | 18 | u/l | (missing) | | AMINOTRANSFE | 09:15 | Health | | | | | RASE (SGOT) | | System - | | | | | (U/L) IN | | [place] | | | | | SER/PLAS | | | | | | + + + + + + + | ASPARTATE | 2021-10-04 | [facility] | 18 | u/l | (missing) | | AMINOTRANSFE | 09:15 | Health | | | | | RASE (SGOT) | | System - | | | | | (U/L) IN | | [place] | | | | | SER/PLAS | | | | | | + + + + + + + | | 2021-10-04 | [facility] | 2.5 | % | (missing) | | EOSINOPHILS/ | 09:15 | Health | | | | | 100 | | System - | | | | | LEUKOCYTES | | [place] | | | | | IN BLOOD [...] | | | | LEUKOCYTES | | [place] | | | | | IN BLOOD [...] | | | | AUTOMATED | | [place] | | | | | COUNT | | | | | | + + + + + + + | LYMPHOCYTES | 2021-10-04 | [facility] | 2.6 | k/mcl | (missing) | | (10*3/UL) | 09:15 | Health | | | | | IN BLOOD BY | | System - | | | | | AUTOMATED | | [place] | | | | | COUNT | | | | | | + + + + + + + | CARBON | 2021-10-04 | [facility] | 20 | mmol/l | (missing) | | DIOXIDE | 09:15 | Health | | | | | (CO2), TOTAL | | System - | | | | | (MMOL/L) IN | | [place] | | | | | SER/PLAS | | | | | | + + + + + + + | CARBON | 2021-10-04 | [facility] | 20 | mmol/l | (missing) | | DIOXIDE | 09:15 | Health | | | | | (CO2), TOTAL | | System - | | | | | (MMOL/L) IN | | [place] | | | | | SER/PLAS | | | | | | + + + + + + + | ALANINE | 2021-10-04 | [facility] | 20 | u/l | (missing) | | AMINOTRANSFE | 09:15 | Health | | | | | RASE (SGPT) | | System - | | | | | (U/L) IN | | [place] | | | | | SER/PLAS | | | | | | + + + + + + + | ALANINE | 2021-10-04 | [facility] | 20 | u/l | (missing) | | AMINOTRANSFE | 09:15 | Health | | | | | RASE (SGPT) | | System - | | | | | (U/L) IN | | [place] | | | | | SER/PLAS | | | | | | + + + + + + + | NEUTROPHILS | 2021-10-04 | [facility] | 3.2 | k/mcl | (missing) | | (10*3/UL) | 09:15 | Health | | | | | IN BLOOD BY | | System - | | | | | AUTOMATED | | [place] | | | | | COUNT | | | | | | + + + + + + + | NEUTROPHILS | 2021-10-04 | [facility] | 3.2 | k/mcl | (missing) | | (10*3/UL) | 09:15 | Health | | | | | IN BLOOD BY | | System - | | | | | AUTOMATED | | [place] | | | | | COUNT | | | | | | + + + + + + + | POTASSIUM | 2021-10-04 | [facility] | 3.6 | mmol/l | (missing) | | (MMOL/L) IN | 09:15 | Health | | | | | SER/PLAS | | System - | | | | | | | [place] | | | | + + + + + + + | POTASSIUM | 2021-10-04 | [facility] | 3.6 | mmol/l | (missing) | | (MMOL/L) IN | 09:15 | Health | | | | | SER/PLAS | | System - | | | | | | | [place] | | | | + + + + + + + | ALBUMIN | 2021-10-04 | [facility] | 3.8 | g/dl | (missing) | | (G/DL) IN | :15 | Health | | | | | SER/PLAS | | System - | | | | | | | [place] | | | | + + + + + + + | ALBUMIN | 2021-10-04 | [facility] | 3.8 | g/dl | (missing) | | (G/DL) IN | 09:15 | Health | | | | | SER/PLAS | | System - | | | | | | | [place] | | | | + + + + + + + | ERYTHROCYTE | 2021-10-04 | [facility] | 30.4 | pg | (missing) | | MEAN | 09:15 | Health | | | | | CORPUSCULAR | | System - | | | | | HEMOGLOBIN | | [place] | | | | | (PG) BY [...] | | | | HEMOGLOBIN | | [place] | | | | | (PG) BY [...] | | | | AUTOMATED | | [place] | | | | | COUNT | | | | | | + + + + + + + | PLATELETS | 2021-10-04 | [facility] | 316 | k/mcl | (missing) | | (10*3/UL) IN | 09:15 | Health | | | | | BLOOD | | System - | | | | | AUTOMATED | | [place] | | | | | COUNT | | | | | | + + + + + + + | ERYTHROCYTE | 2021-10-04 | [facility] | 33.8 | g/dl | (missing) | | MEAN | 09:15 | Health | | | | | CORPUSCULAR | | System - | | | | | HEMOGLOBIN | | [place] | | | | | CONCENTRATIO | [...] | | | | HEMOGLOBIN | | [place] | | | | | CONCENTRATIO | [...] | | | | AUTOMATED | | [place] | | | | | COUNT | | | | | | + + + + + + + | HEMATOCRIT | 2021-10-04 | [facility] | 39.3 | % | (missing) | | (%) IN BLOOD | 09:15 | Health | | | | | BY | | System - | | | | | AUTOMATED | | [place] | | | | | COUNT | | | | | | + + + + + + + | | 2021-10-04 | [facility] | 4.38 | m/mcl | (missing) | | ERYTHROCYTES | 09:15 | Health | | | | | (10*6/UL) | | System - | | | | | IN BLOOD BY | | [place] | | | | | AUTOMATED | [...] | | IN BLOOD BY | | [place] | | | | | AUTOMATED | [...] | | | | LEUKOCYTES | | [place] | | | | | IN BLOOD [...] | | | | LEUKOCYTES | | [place] | | | | | IN BLOOD [...] | | | | LEUKOCYTES | | [place] | | | | | IN BLOOD [...] | | | | LEUKOCYTES | | [place] | | | | | IN BLOOD BY | | | | | | | AUTOMATED | | | | | | | COUNT | | | | | | + + + + + + + | PROTEIN | 2021-10-04 | [facility] | 5.9 | g/dl | (missing) | | (G/DL) IN | :15 | Health | | | | | SER/PLAS | | System - | | | | | | | [place] | | | | + + + + + + + | PROTEIN | 2021-10-04 | [facility] | 5.9 | g/dl | (missing) | | (G/DL) IN | 09:15 | Health | | | | | SER/PLAS | | System - | | | | | | | [place] | | | | + + + + + + + | | 2021-10-04 | [facility] | 6.5 | k/mcl | (missing) | | LEUKOCYTES(1 | 09:15 | Health | | | | | 0*3/UL) IN | | System - | | | | | BLOOD BY | | [place] | | | | | AUTOMATED | [...] | | | BLOOD BY | | [place] | | | | | AUTOMATED | [...] | | | | SER/PLAS | | [place] | | | | + + + + + + + | ALKALINE | 2021-10-04 | [facility] | 61 | u/l | (missing) | | PHOSPHATASE | 09:15 | Health | | | | | (U/L) IN | | System - | | | | | SER/PLAS | | [place] | | | | + + + + + + + | | 2021-10-04 | [facility] | 7.0 | % | (missing) | | MONOCYTES/10 | 09:15 | Health | | | | | 0 LEUKOCYTES | | System - | | | | | IN BLOOD BY | | [place] | | | | | AUTOMATED | [...] | | IN BLOOD BY | | [place] | | | | | AUTOMATED | [...] | | | | | | | [place] | | | | + + + + + + + | CALCIUM | 2021-10-04 | [facility] | 8.5 | mg/dl | (missing) | | (MG/DL) IN | 09:15 | Health | | | | | SER/PLAS | | System - | | | | | | | [place] | | | | + + + + + + + | ERYTHROCYTE | 2021-10-04 | [facility] | 89.7 | fl | (missing) | | MEAN | 09:15 | Health | | | | | CORPUSCULAR | | System - | | | | | VOLUME (FL) | | [place] | | | | | BY AUTOMATED [...] | | | VOLUME (FL) | | [place] | | | | | BY AUTOMATED [...] | | | BLOOD BY | | [place] | | | | | AUTOMATED | [...] | | | BLOOD BY | | [place] | | | | | AUTOMATED | [...] | | | URINE BY | | [place] | | | | | SCREEN | [...] | | | | (PRESENCE) | | [place] | | | | | IN URINE [...] | | | | SCREEN | | [place] | | | | | METHOD | | | | | | + + + + + + + | METHADONE | 2021-10-04 | [facility] | Negative | (missing) | (missing) | | (PRESENCE) | 09:15 | Health | | | | | IN URINE BY | | System - | | | | | SCREEN | | [place] | | | | | METHOD | | | | | | + + + + + + + | OPIATES | 2021-10-04 | [facility] | Negative | (missing) | (missing) | | (PRESENCE) | 09:15 | Health | | | | | IN URINE BY | | System - | | | | | SCREEN | | [place] | | | | | METHOD | | | | | | + + + + + + + | OXYCODONE | 2021-10-04 | [facility] | Negative | (missing) | (missing) | | (PRESENCE) | 09:15 | Health | | | | | IN URINE BY | | System - | | | | | SCREEN | | [place] | | | | | METHOD | | | | | | + + + + + + + | | 2021-10-04 | [facility] | Negative | (missing) | (missing) | | PHENCYCLIDIN | 09:15 | Health | | | | | E (PRESENCE) | | System - | | | | | IN URINE BY | | [place] | | | | | SCREEN | [...] | | | | (PRESENCE) | | [place] | | | | | IN URINE | | | | | | + + + + + + + | | 2021-10-04 | [facility] | Negative | (missing) | (missing) | | PHENCYCLIDIN | 09:15 | Health | | | | | E (PRESENCE) | | System - | | | | | IN URINE BY | | [place] | | | | | SCREEN | [...] | | | | SCREEN | | [place] | | | | | METHOD | | | | | | + + + + + + + | TRICYCLIC | 2021-10-04 | [facility] | Negative | (missing) | (missing) | | ANTIDEPRESSA | 09:15 | Health | | | | | NTS | | System - | | | | | (PRESENCE) | | [place] | | | | | IN URINE | | | | | | + + + + + + + | OXYCODONE | 2021-10-04 | [facility] | Negative | (missing) | (missing) | | (PRESENCE) | 09:15 | Health | | | | | IN URINE BY | | System - | | | | | SCREEN | | [place] | | | | | METHOD | | | | | | + + + + + + + | [facility]CG QUAL | 2021-10-04 | [facility] | Negative | (missing) | (missing) | | (CHORIOGONAD | 09:15 | Health | | | | | OTROPIN) IN | | System - | | | | | SER/PLAS | | [place] | | | | + + + + + + + | COCAINE | 2021-10-04 | [facility] | Negative | (missing) | (missing) | | (PRESENCE) | 09:15 | Health | | | | | IN URINE BY | | System - | | | | | SCREEN | | [place] | | | | | METHOD | | | | | | + + + + + + + | | 2021-10-04 | [facility] | Negative | (missing) | (missing) | | BARBITURATES | 09:15 | Health | | | | | PRESENCE IN | | System - | | | | | URINE BY | | [place] | | | | | SCREEN | [...] | | | | (PRESENCE) | | [place] | | | | | IN URINE [...] | | | | SCREEN | | [place] | | | | | METHOD | | | | | | + + + + + + + | [facility] QUAL | 2021-10-04 | [facility] | Negative | (missing) | (missing) | | (CHORIOGONAD | 09:15 | Health | | | | | OTROPIN) IN | | System - | | | | | SER/PLAS | | [place] | | | | + + + + + + + | | 2021-10-04 | [facility] | Presumptive | (missing) | (missing) | | METHAMPHETAM | 09:15 | Health | Positive | | | | INE | | System - | | | | | (PRESENCE) | | [place] | | | | | IN URINE [...] | | | BY SCREEN | | [place] | | | | | METHOD | | | | | | + + + + + + + | THC | 2021-10-04 | [facility] | Presumptive | (missing) | (missing) | | (CANNABINOID | 09:15 | Health | Positive | | | | ) IN URINE | | System - | | | | | BY SCREEN | | [place] | | | | | METHOD | | | | | | + + + + + + + | AMPHETAMINE | 2021-10-04 | [facility] | Presumptive | (missing) | (missing) | | (PRESENCE) | 09:15 | Health | Positive | | | | IN URINE BY | | System - | | | | | SCREEN | | [place] | | | | | METHOD | | | | | | + + + + + + + | | 2021-10-04 | [facility] | Presumptive | (missing) | (missing) | | METHAMPHETAM | 09:15 | Health | Positive | | | | INE | | System - | | | | | (PRESENCE) | | [place] | | | | | IN URINE [...] | | | | SCREEN | | [place] | | | | | METHOD | [...] | | | | | | | [place] | | | | + + + + + + + | INFLUENZA B | 2021-10-04 | [facility] | Negative | (missing) | (missing) | | | 09:40 | Health | | | | | | | System - | | | | | | | [place] | | | | + + + + + + + | RSV | 2021-10-04 | [facility] | Negative | (missing) | (missing) | | | 09:40 | Health | | | | | | | System - | | | | | | | [place] | | | | + + + + + + + | SARS-COV-2 | 2021-10-04 | [facility] | Negative | (missing) | (missing) | | (COVID19) | 09:40 | Health | | | | | CEPHEID PCR | | System - | | | | | | | [place] | | | | + + + + + + + | INFLUENZA A | 2021-10-04 | [facility] | Negative | (missing) | (missing) | | | 09:40 | Health | | | | | | | System - | | | | | | | [place] | | | | + + + + + + + | INFLUENZA B | 2021-10-04 | [facility] | Negative | (missing) | (missing) | | | 09:40 | Health | | | | | | | System - | | | | | | | [place] | | | | + + + + + + + | RSV | 2021-10-04 | [facility] | Negative | (missing) | (missing) | | | 09:40 | Health | | | | | | | System - | | | | | | | [place] | | | | + + + + + + + | SARS-COV-2 | 2021-10-04 | [facility] | Negative | (missing) | (missing) | | (COVID19) | 09:40 | Health | | | | | CEPHEID PCR | | System - | | | | | | | [place] | | | | + + + [...] ? | | | RATE) | | [place] | | | | | ML/MIN/1.73 | [...] ? | | | RATE) | | [place] | | | | | ML/MIN/1.73 | [...] | | | | | | | [place] | | | | + + + + + + + | ALCOHOL | 2021-11-10 | [facility] | < | g/dl | (missing) | | (G/DL) IN | 18:58 | Health | | | | | SER/PLAS | | System - | | | | | | | [place] | | | | + + + + + + + | | 2021-11-10 | [facility] | < | mcg/ml | (missing) | | ACETAMINOPHE | 18:58 | Health | | | | | N (UG/ML) IN | | System - | | | | | SER/PLAS | | [place] | | | | + + + + + + + | | 2021-11-10 | [facility] | < | mcg/ml | (missing) | | ACETAMINOPHE | 18:58 | Health | | | | | N (UG/ML) IN | | System - | | | | | SER/PLAS | | [place] | | | | + + + + + + + | SALICYLATE | 2021-11-10 | [facility] | < | mg/dl | (missing) | | (MG/DL) IN | 18:58 | Health | | | | | SER/PLAS | | System - | | | | | | | [place] | | | | + + + + + + + | BILIRUBIN | 2021-11-10 | [facility] | < | mg/dl | (missing) | | TOTAL | 18:58 | Health | | | | | (MG/DL) IN | | System - | | | | | SER/PLAS | | [place] | | | | + + + + + + + | BILIRUBIN | 2021-11-10 | [facility] | < | mg/dl | (missing) | | TOTAL | 18:58 | Health | | | | | (MG/DL) IN | | System - | | | | | SER/PLAS | | [place] | | | | + + + + + + + | SALICYLATE | 2021-11-10 | [facility] | < | mg/dl | (missing) | | (MG/DL) IN | 18:58 | Health | | | | | SER/PLAS | | System - | | | | | | | [place] | | | | + + + + + + + | NRBC/100 | 2021-11-10 | [facility] | 0.0 | % | (missing) | | WBCS BY | 18:58 | Health | | | | | AUTOMATED | | System - | | | | | COUNT | | [place] | | | | + + + + + + + | NRBC/100 | 2021-11-10 | [facility] | 0.0 | % | (missing) | | WBCS BY | 18:58 | Health | | | | | AUTOMATED | | System - | | | | | COUNT | | [place] | | | | + + + + + + + | | 2021-11-10 | [facility] | 0.0 | k/mcl | (missing) | | NRBC(10*3/UL | 18:58 | Health | | | | | ) IN BLOOD | | System - | | | | | BY AUTOMATED | | [place] | | | | | COUNT | | | | | | + + + + + + + | | 2021-11-10 | [facility] | 0.0 | k/mcl | (missing) | | NRBC(10*3/UL | 18:58 | Health | | | | | ) IN BLOOD | | System - | | | | | BY AUTOMATED | | [place] | | | | | COUNT | | | | | | + + + + + + + | IMMATURE | 2021-11-10 | [facility] | 0.09 | k/mcl | (missing) | | GRANULOCYTE | 18:58 | Health | | | | | (ABS) | | System - | | | | | | | [place] | | | | + + + + + + + | IMMATURE | 2021-11-10 | [facility] | 0.09 | k/mcl | (missing) | | GRANULOCYTE | 18:58 | Health | | | | | (ABS) | | System - | | | | | | | [place] | | | | + + + + + + + | BASOPHILS | 2021-11-10 | [facility] | 0.1 | k/mcl | (missing) | | (10*3/UL) IN | 18:58 | Health | | | | | BLOOD BY | | System - | | | | | AUTOMATED | | [place] | | | | | COUNT | | | | | | + + + + + + + | EOSINOPHILS | 2021-11-10 | [facility] | 0.1 | k/mcl | (missing) | | (10*3/UL) | 18:58 | Health | | | | | IN BLOOD BY | | System - | | | | | AUTOMATED | | [place] | | | | | COUNT | | | | | | + + + + + + + | BASOPHILS | 2021-11-10 | [facility] | 0.1 | k/mcl | (missing) | | (10*3/UL) IN | 18:58 | Health | | | | | BLOOD BY | | System - | | | | | AUTOMATED | | [place] | | | | | COUNT | | | | | | + + + + + + + | EOSINOPHILS | 2021-11-10 | [facility] | 0.1 | k/mcl | (missing) | | (10*3/UL) | 18:58 | Health | | | | | IN BLOOD BY | | System - | | | | | AUTOMATED | | [place] | | | | | COUNT | | | | | | + + + + + + + | MONOCYTES | 2021-11-10 | [facility] | 0.7 | k/mcl | (missing) | | (10*3/UL) IN | 18:58 | Health | | | | | BLOOD BY | | System - | | | | | AUTOMATED | | [place] | | | | | COUNT | | | | | | + + + + + + + | MONOCYTES | 2021-11-10 | [facility] | 0.7 | k/mcl | (missing) | | (10*3/UL) IN | 18:58 | Health | | | | | BLOOD BY | | System - | | | | | AUTOMATED | | [place] | | | | | COUNT | | | | | | + + + + + + + | CREATININE | 2021-11-10 | [facility] | 0.7 | mg/dl | (missing) | | (MG/DL) IN | 18:58 | Health | | | | | SER/PLAS | | System - | | | | | | | [place] | | | | + + + + + + + | CREATININE | 2021-11-10 | [facility] | 0.7 | mg/dl | (missing) | | (MG/DL) IN | 18:58 | Health | | | | | SER/PLAS | | System - | | | | | | | [place] | | | | + + + + + + + | | 2021-11-10 | [facility] | 0.8 | % | (missing) | | BASOPHILS/10 | 18:58 | Health | | | | | 0 LEUKOCYTES | | System - | | | | | IN BLOOD BY | | [place] | | | | | AUTOMATED | [...] | | IN BLOOD BY | | [place] | | | | | AUTOMATED | [...] | | | | | | | [place] | | | | + + + + + + + | IMMATURE | 2021-11-10 | [facility] | 0.9 | % | (missing) | | GRANULOCYTE | 18:58 | Health | | | | | % (AUTO) | | System - | | | | | | | [place] | | | | + + + + + + + | | 2021-11-10 | [facility] | 1.3 | % | (missing) | | EOSINOPHILS/ | 18:58 | Health | | | | | 100 | | System - | | | | | LEUKOCYTES | | [place] | | | | | IN BLOOD [...] | | | | LEUKOCYTES | | [place] | | | | | IN BLOOD [...] | | | | | | | [place] | | | | + + + + + + + | CHLORIDE | 2021-11-10 | [facility] | 109 | mmol/l | (missing) | | (MMOL/L) IN | 18:58 | Health | | | | | SER/PLAS | | System - | | | | | | | [place] | | | | + + + + + + + | ANION GAP | 2021-11-10 | [facility] | 12.0 | mmol/l | (missing) | | IN SER/PLAS | 18:58 | Health | | | | | | | System - | | | | | | | [place] | | | | + + + + + + + | ANION GAP | 2021-11-10 | [facility] | 12.0 | mmol/l | (missing) | | IN SER/PLAS | 18:58 | Health | | | | | | | System - | | | | | | | [place] | | | | + + + + + + + | ERYTHROCYTE | 2021-11-10 | [facility] | 12.3 | % | (missing) | | | 18:58 | Health | | | | | DISTRIBUTION | | System - | | | | | WIDTH | | [place] | | | | | (RATIO) BY [...] | | | | WIDTH | | [place] | | | | | (RATIO) BY [...] | | | | | | | [place] | | | | + + + + + + + | HEMOGLOBIN | 2021-11-10 | [facility] | 13.6 | g/dl | (missing) | | (G/DL) IN | 18:58 | Health | | | | | BLOOD | | System - | | | | | | | [place] | | | | + + + + + + + | SODIUM | 2021-11-10 | [facility] | 142 | mmol/l | (missing) | | (MMOL/L) IN | 18:58 | Health | | | | | SER/PLAS | | System - | | | | | | | [place] | | | | + + + + + + + | SODIUM | 2021-11-10 | [facility] | 142 | mmol/l | (missing) | | (MMOL/L) IN | 18:58 | Health | | | | | SER/PLAS | | System - | | | | | | | [place] | | | | + + + + + + + | ALANINE | 2021-11-10 | [facility] | 15 | u/l | (missing) | | AMINOTRANSFE | 18:58 | Health | | | | | RASE (SGPT) | | System - | | | | | (U/L) IN | | [place] | | | | | SER/PLAS | | | | | | + + + + + + + | ALANINE | 2021-11-10 | [facility] | 15 | u/l | (missing) | | AMINOTRANSFE | 18:58 | Health | | | | | RASE (SGPT) | | System - | | | | | (U/L) IN | | [place] | | | | | SER/PLAS | | | | | | + + + + + + + | CARBON | 2021-11-10 | [facility] | 21 | mmol/l | (missing) | | DIOXIDE | 18:58 | Health | | | | | (CO2), TOTAL | | System - | | | | | (MMOL/L) IN | | [place] | | | | | SER/PLAS | | | | | | + + + + + + + | CARBON | 2021-11-10 | [facility] | 21 | mmol/l | (missing) | | DIOXIDE | 18:58 | Health | | | | | (CO2), TOTAL | | System - | | | | | (MMOL/L) IN | | [place] | | | | | SER/PLAS | | | | | | + + + + + + + | ASPARTATE | 2021-11-10 | [facility] | 22 | u/l | (missing) | | AMINOTRANSFE | 18:58 | Health | | | | | RASE (SGOT) | | System - | | | | | (U/L) IN | | [place] | | | | | SER/PLAS | | | | | | + + + + + + + | ASPARTATE | 2021-11-10 | [facility] | 22 | u/l | (missing) | | AMINOTRANSFE | 18:58 | Health | | | | | RASE (SGOT) | | System - | | | | | (U/L) IN | | [place] | | | | | SER/PLAS | | | | | | + + + + + + + | POTASSIUM | 2021-11-10 | [facility] | 3.4 | mmol/l | (missing) | | (MMOL/L) IN | 18:58 | Health | | | | | SER/PLAS | | System - | | | | | | | [place] | | | | + + + + + + + | POTASSIUM | 2021-11-10 | [facility] | 3.4 | mmol/l | (missing) | | (MMOL/L) IN | 18:58 | Health | | | | | SER/PLAS | | System - | | | | | | | [place] | | | | + + + + + + + | TSH | 2021-11-10 | [facility] | 3.58 | mciu/ml | (missing) | | (THYROTROPIN | 18:58 | Health | | | | | ) (UIU/ML) | | System - | | | | | IN SER/PLAS | | [place] | | | | + + + + + + + | TSH | 2021-11-10 | [facility] | 3.58 | mciu/ml | (missing) | | (THYROTROPIN | 18:58 | Health | | | | | ) (UIU/ML) | | System - | | | | | IN SER/PLAS | | [place] | | | | + + + + + + + | LYMPHOCYTES | 2021-11-10 | [facility] | 3.7 | k/mcl | (missing) | | (10*3/UL) | 18:58 | Health | | | | | IN BLOOD BY | | System - | | | | | AUTOMATED | | [place] | | | | | COUNT | | | | | | + + + + + + + | LYMPHOCYTES | 2021-11-10 | [facility] | 3.7 | k/mcl | (missing) | | (10*3/UL) | 18:58 | Health | | | | | IN BLOOD BY | | System - | | | | | AUTOMATED | | [place] | | | | | COUNT | | | | | | + + + + + + + | ERYTHROCYTE | 2021-11-10 | [facility] | 30.6 | pg | (missing) | | MEAN | 18:58 | Health | | | | | CORPUSCULAR | | System - | | | | | HEMOGLOBIN | | [place] | | | | | (PG) BY [...] | | | | HEMOGLOBIN | | [place] | | | | | (PG) BY [...] | | | | HEMOGLOBIN | | [place] | | | | | CONCENTRATIO | [...] | | | | HEMOGLOBIN | | [place] | | | | | CONCENTRATIO | [...] | | | | AUTOMATED | | [place] | | | | | COUNT | | | | | | + + + + + + + | PLATELETS | 2021-11-10 | [facility] | 354 | k/mcl | (missing) | | (10*3/UL) IN | 18:58 | Health | | | | | BLOOD | | System - | | | | | AUTOMATED | | [place] | | | | | COUNT | | | | | | + + + + + + + | | 2021-11-10 | [facility] | 37.6 | % | (missing) | | LYMPHOCYTES/ | 18:58 | Health | | | | | 100 | | System - | | | | | LEUKOCYTES | | [place] | | | | | IN BLOOD [...] | | | | LEUKOCYTES | | [place] | | | | | IN BLOOD [...] | | | | | | | [place] | | | | + + + + + + + | ALBUMIN | 2021-11-10 | [facility] | 4.4 | g/dl | (missing) | | (G/DL) IN | 18:58 | Health | | | | | SER/PLAS | | System - | | | | | | | [place] | | | | + + + + + + + | | 2021-11-10 | [facility] | 4.45 | m/mcl | (missing) | | ERYTHROCYTES | 18:58 | Health | | | | | (10*6/UL) | | System - | | | | | IN BLOOD BY | | [place] | | | | | AUTOMATED | [...] | | IN BLOOD BY | | [place] | | | | | AUTOMATED | [...] | | | | AUTOMATED | | [place] | | | | | COUNT | | | | | | + + + + + + + | HEMATOCRIT | 2021-11-10 | [facility] | 41.3 | % | (missing) | | (%) IN BLOOD | 18:58 | Health | | | | | BY | | System - | | | | | AUTOMATED | | [place] | | | | | COUNT | | | | | | + + + + + + + | NEUTROPHILS | 2021-11-10 | [facility] | 5.1 | k/mcl | (missing) | | (10*3/UL) | 18:58 | Health | | | | | IN BLOOD BY | | System - | | | | | AUTOMATED | | [place] | | | | | COUNT | | | | | | + + + + + + + | NEUTROPHILS | 2021-11-10 | [facility] | 5.1 | k/mcl | (missing) | | (10*3/UL) | 18:58 | Health | | | | | IN BLOOD BY | | System - | | | | | AUTOMATED | | [place] | | | | | COUNT | | | | | | + + + + + + + | | 2021-11-10 | [facility] | 52.4 | % | (missing) | | NEUTROPHILS/ | 18:58 | Health | | | | | 100 | | System - | | | | | LEUKOCYTES | | [place] | | | | | IN BLOOD [...] | | | | LEUKOCYTES | | [place] | | | | | IN BLOOD [...] | | | | SER/PLAS | | [place] | | | | + + + + + + + | ALKALINE | 2021-11-10 | [facility] | 59 | u/l | (missing) | | PHOSPHATASE | 18:58 | Health | | | | | (U/L) IN | | System - | | | | | SER/PLAS | | [place] | | | | + + + + + + + | PROTEIN | 2021-11-10 | [facility] | 6.9 | g/dl | (missing) | | (G/DL) IN | 18:58 | Health | | | | | SER/PLAS | | System - | | | | | | | [place] | | | | + + + + + + + | PROTEIN | 2021-11-10 | [facility] | 6.9 | g/dl | (missing) | | (G/DL) IN | 18:58 | Health | | | | | SER/PLAS | | System - | | | | | | | [place] | | | | + + + + + + + | BLOOD UREA | 2021-11-10 | [facility] | 7 | mg/dl | (missing) | | NITROGEN | 18:58 | Health | | | | | (BUN) | | System - | | | | | (MG/DL) IN | | [place] | | | | | SER/PLAS | | | | | | + + + + + + + | BLOOD UREA | 2021-11-10 | [facility] | 7 | mg/dl | (missing) | | NITROGEN | 18:58 | Health | | | | | (BUN) | | System - | | | | | (MG/DL) IN | | [place] | | | | | SER/PLAS | | | | | | + + + + + + + | | 2021-11-10 | [facility] | 7.0 | % | (missing) | | MONOCYTES/10 | 18:58 | Health | | | | | 0 LEUKOCYTES | | System - | | | | | IN BLOOD BY | | [place] | | | | | AUTOMATED | [...] | | IN BLOOD BY | | [place] | | | | | AUTOMATED | [...] | | | | | | | [place] | | | | + + + + + + + | CALCIUM | 2021-11-10 | [facility] | 8.4 | mg/dl | (missing) | | (MG/DL) IN | 18:58 | Health | | | | | SER/PLAS | | System - | | | | | | | [place] | | | | + + + + + + + | PLATELET | 2021-11-10 | [facility] | 9.2 | fl | (missing) | | MEAN VOLUME | 18:58 | Health | | | | | (FL) IN | | System - | | | | | BLOOD BY | | [place] | | | | | AUTOMATED | [...] | | | BLOOD BY | | [place] | | | | | AUTOMATED | [...] | | | BLOOD BY | | [place] | | | | | AUTOMATED | [...] | | | BLOOD BY | | [place] | | | | | AUTOMATED | [...] | | | | SER/PLAS | | [place] | | | | + + + + + + + | GLUCOSE, | 2021-11-10 | [facility] | 90 | mg/dl | (missing) | | RANDOM | 18:58 | Health | | | | | (MG/DL) IN | | System - | | | | | SER/PLAS | | [place] | | | | + + + + + + + | ERYTHROCYTE | 2021-11-10 | [facility] | 92.8 | fl | (missing) | | MEAN | 18:58 | Health | | | | | CORPUSCULAR | | System - | | | | | VOLUME (FL) | | [place] | | | | | BY AUTOMATED [...] | | | VOLUME (FL) | | [place] | | | | | BY AUTOMATED [...] | | | | | | | [place] | | | | + + + + + + + | INFLUENZA B | 2021-11-10 | [facility] | Negative | (missing) | (missing) | | | 18:58 | Health | | | | | | | System - | | | | | | | [place] | | | | + + + + + + + | RSV | 2021-11-10 | [facility] | Negative | (missing) | (missing) | | | 18:58 | Health | | | | | | | System - | | | | | | | [place] | | | | + + + + + + + | SARS-COV-2 | 2021-11-10 | [facility] | Negative | (missing) | (missing) | | (COVID19) | 18:58 | Health | | | | | CEPHEID PCR | | System - | | | | | | | [place] | | | | + + + + + + + | [facility] QUAL | 2021-11-10 | [facility] | Negative | (missing) | (missing) | | (CHORIOGONAD | 18:58 | Health | | | | | OTROPIN) IN | | System - | | | | | SER/PLAS | | [place] | | | | + + + + + + + | INFLUENZA A | 2021-11-10 | [facility] | Negative | (missing) | (missing) | | | 18:58 | Health | | | | | | | System - | | | | | | | [place] | | | | + + + + + + + | INFLUENZA B | 2021-11-10 | [facility] | Negative | (missing) | (missing) | | | 18:58 | Health | | | | | | | System - | | | | | | | [place] | | | | + + + + + + + | RSV | 2021-11-10 | [facility] | Negative | (missing) | (missing) | | | 18:58 | Health | | | | | | | System - | | | | | | | [place] | | | | + + + + + + + | SARS-COV-2 | 2021-11-10 | [facility] | Negative | (missing) | (missing) | | (COVID19) | 18:58 | Health | | | | | CEPHEID PCR | | System - | | | | | | | [place] | | | | + + + + + + + | [facility] QUAL | 2021-11-10 | [facility] | Negative | (missing) | (missing) | | (CHORIOGONAD | 18:58 | Health | | | | | OTROPIN) IN | | System - | | | | | SER/PLAS | | [place] | | | | + + + [...] | | | | COUNT | | [place] | | | | + + + +--------+---------+ + | NRBC/100 | 2021-11-12 | [facility] | 0.0 | % | (missing) | | WBCS BY | 03:53 | Health | | | | | AUTOMATED | | System - | | | | | COUNT | | [place] | | | | + + + +--------+---------+ + | | 2021-11-12 | [facility] | 0.0 | k/mcl | (missing) | | NRBC(10*3/UL | 03:53 | Health | | | | | ) IN BLOOD | | System - | | | | | BY AUTOMATED | | [place] | | | | | COUNT | | | | | | + + + +--------+---------+ + | | 2021-11-12 | [facility] | 0.0 | k/mcl | (missing) | | NRBC(10*3/UL | 03:53 | Health | | | | | ) IN BLOOD | | System - | | | | | BY AUTOMATED | | [place] | | | | | COUNT | | | | | | + + + +--------+---------+ + | IMMATURE | 2021-11-12 | [facility] | 0.08 | k/mcl | (missing) | | GRANULOCYTE | 03:53 | Health | | | | | (ABS) | | System - | | | | | | | [place] | | | | + + + +--------+---------+ + | IMMATURE | 2021-11-12 | [facility] | 0.08 | k/mcl | (missing) | | GRANULOCYTE | 03:53 | Health | | | | | (ABS) | | System - | | | | | | | [place] | | | | + + + +--------+---------+ + | BASOPHILS | 2021-11-12 | [facility] | 0.1 | k/mcl | (missing) | | (10*3/UL) IN | 03:53 | Health | | | | | BLOOD BY | | System - | | | | | AUTOMATED | | [place] | | | | | COUNT | | | | | | + + + +--------+---------+ + | BASOPHILS | 2021-11-12 | [facility] | 0.1 | k/mcl | (missing) | | (10*3/UL) IN | 03:53 | Health | | | | | BLOOD BY | | System - | | | | | AUTOMATED | | [place] | | | | | COUNT | | | | | | + + + +--------+---------+ + | EOSINOPHILS | 2021-11-12 | [facility] | 0.2 | k/mcl | (missing) | | (10*3/UL) | 03:53 | Health | | | | | IN BLOOD BY | | System - | | | | | AUTOMATED | | [place] | | | | | COUNT | | | | | | + + + +--------+---------+ + | EOSINOPHILS | 2021-11-12 | [facility] | 0.2 | k/mcl | (missing) | | (10*3/UL) | 03:53 | Health | | | | | IN BLOOD BY | | System - | | | | | AUTOMATED | | [place] | | | | | COUNT | | | | | | + + + +--------+---------+ + | | 2021-11-12 | [facility] | 0.6 | % | (missing) | | BASOPHILS/10 | 03:53 | Health | | | | | 0 LEUKOCYTES | | System - | | | | | IN BLOOD BY | | [place] | | | | | AUTOMATED | [...] | | IN BLOOD BY | | [place] | | | | | AUTOMATED | [...] | | | | AUTOMATED | | [place] | | | | | COUNT | | | | | | + + + +--------+---------+ + | MONOCYTES | 2021-11-12 | [facility] | 0.7 | k/mcl | (missing) | | (10*3/UL) IN | 03:53 | Health | | | | | BLOOD BY | | System - | | | | | AUTOMATED | | [place] | | | | | COUNT | | | | | | + + + +--------+---------+ + | IMMATURE | 2021-11-12 | [facility] | 0.8 | % | (missing) | | GRANULOCYTE | 03:53 | Health | | | | | % (AUTO) | | System - | | | | | | | [place] | | | | + + + +--------+---------+ + | IMMATURE | 2021-11-12 | [facility] | 0.8 | % | (missing) | | GRANULOCYTE | 03:53 | Health | | | | | % (AUTO) | | System - | | | | | | | [place] | | | | + + + +--------+---------+ + | | 2021-11-12 | [facility] | 1.7 | % | (missing) | | EOSINOPHILS/ | 03:53 | Health | | | | | 100 | | System - | | | | | LEUKOCYTES | | [place] | | | | | IN BLOOD [...] | | | | LEUKOCYTES | | [place] | | | | | IN BLOOD [...] | | | | WIDTH | | [place] | | | | | (RATIO) BY [...] | | | | WIDTH | | [place] | | | | | (RATIO) BY [...] | | | | | | | [place] | | | | + + + +--------+---------+ + | HEMOGLOBIN | 2021-11-12 | [facility] | 14.1 | g/dl | (missing) | | (G/DL) IN | 03:53 | Health | | | | | BLOOD | | System - | | | | | | | [place] | | | | + + + +--------+---------+ + | LYMPHOCYTES | 2021-11-12 | [facility] | 3.7 | k/mcl | (missing) | | (10*3/UL) | 03:53 | Health | | | | | IN BLOOD BY | | System - | | | | | AUTOMATED | | [place] | | | | | COUNT | | | | | | + + + +--------+---------+ + | LYMPHOCYTES | 2021-11-12 | [facility] | 3.7 | k/mcl | (missing) | | (10*3/UL) | 03:53 | Health | | | | | IN BLOOD BY | | System - | | | | | AUTOMATED | | [place] | | | | | COUNT | | | | | | + + + +--------+---------+ + | ERYTHROCYTE | 2021-11-12 | [facility] | 30.8 | pg | (missing) | | MEAN | 03:53 | Health | | | | | CORPUSCULAR | | System - | | | | | HEMOGLOBIN | | [place] | | | | | (PG) BY [...] | | | | HEMOGLOBIN | | [place] | | | | | (PG) BY [...] | | | | HEMOGLOBIN | | [place] | | | | | CONCENTRATIO | [...] | | | | HEMOGLOBIN | | [place] | | | | | CONCENTRATIO | [...] | | | | LEUKOCYTES | | [place] | | | | | IN BLOOD [...] | | | | LEUKOCYTES | | [place] | | | | | IN BLOOD [...] | | | | AUTOMATED | | [place] | | | | | COUNT | | | | | | + + + +--------+---------+ + | PLATELETS | 2021-11-12 | [facility] | 391 | k/mcl | (missing) | | (10*3/UL) IN | 03:53 | Health | | | | | BLOOD | | System - | | | | | AUTOMATED | | [place] | | | | | COUNT | | | | | | + + + +--------+---------+ + | | 2021-11-12 | [facility] | 4.58 | m/mcl | (missing) | | ERYTHROCYTES | 03:53 | Health | | | | | (10*6/UL) | | System - | | | | | IN BLOOD BY | | [place] | | | | | AUTOMATED | [...] | | IN BLOOD BY | | [place] | | | | | AUTOMATED | [...] | | | | AUTOMATED | | [place] | | | | | COUNT | | | | | | + + + +--------+---------+ + | HEMATOCRIT | 2021-11-12 | [facility] | 42.6 | % | (missing) | | (%) IN BLOOD | 03:53 | Health | | | | | BY | | System - | | | | | AUTOMATED | | [place] | | | | | COUNT | | | | | | + + + +--------+---------+ + | NEUTROPHILS | 2021-11-12 | [facility] | 5.3 | k/mcl | (missing) | | (10*3/UL) | 03:53 | Health | | | | | IN BLOOD BY | | System - | | | | | AUTOMATED | | [place] | | | | | COUNT | | | | | | + + + +--------+---------+ + | NEUTROPHILS | 2021-11-12 | [facility] | 5.3 | k/mcl | (missing) | | (10*3/UL) | 03:53 | Health | | | | | IN BLOOD BY | | System - | | | | | AUTOMATED | | [place] | | | | | COUNT | | | | | | + + + +--------+---------+ + | | 2021-11-12 | [facility] | 53.2 | % | (missing) | | NEUTROPHILS/ | 03:53 | Health | | | | | 100 | | System - | | | | | LEUKOCYTES | | [place] | | | | | IN BLOOD [...] | | | | LEUKOCYTES | | [place] | | | | | IN BLOOD [...] | | IN BLOOD BY | | [place] | | | | | AUTOMATED | [...] | | IN BLOOD BY | | [place] | | | | | AUTOMATED | [...] | | | BLOOD BY | | [place] | | | | | AUTOMATED | [...] | | | BLOOD BY | | [place] | | | | | AUTOMATED | [...] | | | BLOOD BY | | [place] | | | | | AUTOMATED | [...] | | | BLOOD BY | | [place] | | | | | AUTOMATED | [...] | | | VOLUME (FL) | | [place] | | | | | BY AUTOMATED [...] | | | VOLUME (FL) | | [place] | | | | | BY AUTOMATED [...] ? | | | RATE) | | [place] | | | | | ML/MIN/1.73 | [...] ? | | | RATE) | | [place] | | | | | ML/MIN/1.73 | [...] | | | | | | | [place] | | | | + + + + + + + | ALCOHOL | 2021-11-12 | [facility] | < | g/dl | (missing) | | (G/DL) IN | 03:54 | Health | | | | | SER/PLAS | | System - | | | | | | | [place] | | | | + + + + + + + | | 2021-11-12 | [facility] | < | mcg/ml | (missing) | | ACETAMINOPHE | 03:54 | Health | | | | | N (UG/ML) IN | | System - | | | | | SER/PLAS | | [place] | | | | + + + + + + + | | 2021-11-12 | [facility] | < | mcg/ml | (missing) | | ACETAMINOPHE | 03:54 | Health | | | | | N (UG/ML) IN | | System - | | | | | SER/PLAS | | [place] | | | | + + + + + + + | SALICYLATE | 2021-11-12 | [facility] | < | mg/dl | (missing) | | (MG/DL) IN | 03:54 | Health | | | | | SER/PLAS | | System - | | | | | | | [place] | | | | + + + + + + + | BILIRUBIN | 2021-11-12 | [facility] | < | mg/dl | (missing) | | TOTAL | 03:54 | Health | | | | | (MG/DL) IN | | System - | | | | | SER/PLAS | | [place] | | | | + + + + + + + | BILIRUBIN | 2021-11-12 | [facility] | < | mg/dl | (missing) | | TOTAL | 03:54 | Health | | | | | (MG/DL) IN | | System - | | | | | SER/PLAS | | [place] | | | | + + + + + + + | SALICYLATE | 2021-11-12 | [facility] | < | mg/dl | (missing) | | (MG/DL) IN | 03:54 | Health | | | | | SER/PLAS | | System - | | | | | | | [place] | | | | + + + + + + + | CREATININE | 2021-11-12 | [facility] | 0.7 | mg/dl | (missing) | | (MG/DL) IN | 03:54 | Health | | | | | SER/PLAS | | System - | | | | | | | [place] | | | | + + + + + + + | CREATININE | 2021-11-12 | [facility] | 0.7 | mg/dl | (missing) | | (MG/DL) IN | 03:54 | Health | | | | | SER/PLAS | | System - | | | | | | | [place] | | | | + + + + + + + | LEUKOCYTE | 2021-11-12 | [facility] | 1 | (missing) | (missing) | | ESTERASE | 03:54 | Health | | | | | PRESENCE IN | | System - | | | | | URINE BY | | [place] | | | | | TEST STRIP | | | | | | + + + + + + + | LEUKOCYTE | 2021-11-12 | [facility] | 1 | (missing) | (missing) | | ESTERASE | 03:54 | Health | | | | | PRESENCE IN | | System - | | | | | URINE BY | | [place] | | | | | TEST STRIP | | | | | | + + + + + + + | SPECIFIC | 2021-11-12 | [facility] | 1.031 | (missing) | (missing) | | GRAVITY OF | 03:54 | Health | | | | | URINE BY | | System - | | | | | AUTOMATED | | [place] | | | | | TEST STRIP | | | | | | + + + + + + + | SPECIFIC | 2021-11-12 | [facility] | 1.031 | (missing) | (missing) | | GRAVITY OF | 03:54 | Health | | | | | URINE BY | | System - | | | | | AUTOMATED | | [place] | | | | | TEST STRIP | | | | | | + + + + + + + | CHLORIDE | 2021-11-12 | [facility] | 107 | mmol/l | (missing) | | (MMOL/L) IN | 03:54 | Health | | | | | SER/PLAS | | System - | | | | | | | [place] | | | | + + + + + + + | CHLORIDE | 2021-11-12 | [facility] | 107 | mmol/l | (missing) | | (MMOL/L) IN | 03:54 | Health | | | | | SER/PLAS | | System - | | | | | | | [place] | | | | + + + + + + + | WBC | 2021-11-12 | [facility] | 11 | /hpf | (missing) | | (LEUKOCYTE) | 03:54 | Health | | | | | (#/HPF) IN | | System - | | | | | URINE | | [place] | | | | | SEDIMENT | | | | | | + + + + + + + | WBC | 2021-11-12 | [facility] | 11 | /hpf | (missing) | | (LEUKOCYTE) | 03:54 | Health | | | | | (#/HPF) IN | | System - | | | | | URINE | | [place] | | | | | SEDIMENT | | | | | | + + + + + + + | ANION GAP | 2021-11-12 | [facility] | 11.0 | mmol/l | (missing) | | IN SER/PLAS | 03:54 | Health | | | | | | | System - | | | | | | | [place] | | | | + + + + + + + | ANION GAP | 2021-11-12 | [facility] | 11.0 | mmol/l | (missing) | | IN SER/PLAS | 03:54 | Health | | | | | | | System - | | | | | | | [place] | | | | + + + + + + + | ALANINE | 2021-11-12 | [facility] | 12 | u/l | (missing) | | AMINOTRANSFE | 03:54 | Health | | | | | RASE (SGPT) | | System - | | | | | (U/L) IN | | [place] | | | | | SER/PLAS | | | | | | + + + + + + + | ALANINE | 2021-11-12 | [facility] | 12 | u/l | (missing) | | AMINOTRANSFE | 03:54 | Health | | | | | RASE (SGPT) | | System - | | | | | (U/L) IN | | [place] | | | | | SER/PLAS | | | | | | + + + + + + + | SQUAMOUS | 2021-11-12 | [facility] | 14 | /hpf | (missing) | | EPITHELIAL | 03:54 | Health | | | | | CELLS | | System - | | | | | (#/HPF) IN | | [place] | | | | | URINE | [...] | | | (#/HPF) IN | | [place] | | | | | URINE | [...] | | | | | | | [place] | | | | + + + + + + + | SODIUM | 2021-11-12 | [facility] | 140 | mmol/l | (missing) | | (MMOL/L) IN | 03:54 | Health | | | | | SER/PLAS | | System - | | | | | | | [place] | | | | + + + + + + + | HEMOGLOBIN | 2021-11-12 | [facility] | 2 | (missing) | (missing) | | PRESENCE IN | 03:54 | Health | | | | | URINE | | System - | | | | | | | [place] | | | | + + + + + + + | HEMOGLOBIN | 2021-11-12 | [facility] | 2 | (missing) | (missing) | | PRESENCE IN | 03:54 | Health | | | | | URINE | | System - | | | | | | | [place] | | | | + + + + + + + | BACTERIA | 2021-11-12 | [facility] | 2 | /hpf | (missing) | | (#/HPF) IN | 03:54 | Health | | | | | URINE | | System - | | | | | | | [place] | | | | + + + + + + + | BACTERIA | 2021-11-12 | [facility] | 2 | /hpf | (missing) | | (#/HPF) IN | 03:54 | Health | | | | | URINE | | System - | | | | | | | [place] | | | | + + + + + + + | CARBON | 2021-11-12 | [facility] | 22 | mmol/l | (missing) | | DIOXIDE | 03:54 | Health | | | | | (CO2), TOTAL | | System - | | | | | (MMOL/L) IN | | [place] | | | | | SER/PLAS | | | | | | + + + + + + + | CARBON | 2021-11-12 | [facility] | 22 | mmol/l | (missing) | | DIOXIDE | 03:54 | Health | | | | | (CO2), TOTAL | | System - | | | | | (MMOL/L) IN | | [place] | | | | | SER/PLAS | | | | | | + + + + + + + | ASPARTATE | 2021-11-12 | [facility] | 25 | u/l | (missing) | | AMINOTRANSFE | 03:54 | Health | | | | | RASE (SGOT) | | System - | | | | | (U/L) IN | | [place] | | | | | SER/PLAS | | | | | | + + + + + + + | ASPARTATE | 2021-11-12 | [facility] | 25 | u/l | (missing) | | AMINOTRANSFE | 03:54 | Health | | | | | RASE (SGOT) | | System - | | | | | (U/L) IN | | [place] | | | | | SER/PLAS | | | | | | + + + + + + + | POTASSIUM | 2021-11-12 | [facility] | 3.8 | mmol/l | (missing) | | (MMOL/L) IN | 03:54 | Health | | | | | SER/PLAS | | System - | | | | | | | [place] | | | | + + + + + + + | POTASSIUM | 2021-11-12 | [facility] | 3.8 | mmol/l | (missing) | | (MMOL/L) IN | 03:54 | Health | | | | | SER/PLAS | | System - | | | | | | | [place] | | | | + + + + + + + | CALCIUM | 2021-11-12 | [facility] | 4 | /hpf | (missing) | | OXALATE | 03:54 | Health | | | | | CRYSTALS | | System - | | | | | (#/HPF) IN | | [place] | | | | | URINE | | | | | | + + + + + + + | CALCIUM | 2021-11-12 | [facility] | 4 | /hpf | (missing) | | OXALATE | 03:54 | Health | | | | | CRYSTALS | | System - | | | | | (#/HPF) IN | | [place] | | | | | URINE | | | | | | + + + + + + + | ALBUMIN | 2021-11-12 | [facility] | 4.2 | g/dl | (missing) | | (G/DL) IN | 03:54 | Health | | | | | SER/PLAS | | System - | | | | | | | [place] | | | | + + + + + + + | ALBUMIN | 2021-11-12 | [facility] | 4.2 | g/dl | (missing) | | (G/DL) IN | 03:54 | Health | | | | | SER/PLAS | | System - | | | | | | | [place] | | | | + + + + + + + | RBC (#/HPF) | 2021-11-12 | [facility] | 6 | /hpf | (missing) | | IN URINE | 03:54 | Health | | | | | SEDIMENT | | System - | | | | | | | [place] | | | | + + + + + + + | RBC (#/HPF) | 2021-11-12 | [facility] | 6 | /hpf | (missing) | | IN URINE | 03:54 | Health | | | | | SEDIMENT | | System - | | | | | | | [place] | | | | + + + + + + + | PH OF URINE | 2021-11-12 | [facility] | 6.0 | (missing) | (missing) | | | 03:54 | Health | | | | | | | System - | | | | | | | [place] | | | | + + + + + + + | PH OF URINE | 2021-11-12 | [facility] | 6.0 | (missing) | (missing) | | | 03:54 | Health | | | | | | | System - | | | | | | | [place] | | | | + + + + + + + | PROTEIN | 2021-11-12 | [facility] | 6.7 | g/dl | (missing) | | (G/DL) IN | 03:54 | Health | | | | | SER/PLAS | | System - | | | | | | | [place] | | | | + + + + + + + | PROTEIN | 2021-11-12 | [facility] | 6.7 | g/dl | (missing) | | (G/DL) IN | 03:54 | Health | | | | | SER/PLAS | | System - | | | | | | | [place] | | | | + + + + + + + | ALKALINE | 2021-11-12 | [facility] | 69 | u/l | (missing) | | PHOSPHATASE | 03:54 | Health | | | | | (U/L) IN | | System - | | | | | SER/PLAS | | [place] | | | | + + + + + + + | ALKALINE | 2021-11-12 | [facility] | 69 | u/l | (missing) | | PHOSPHATASE | 03:54 | Health | | | | | (U/L) IN | | System - | | | | | SER/PLAS | | [place] | | | | + + + + + + + | BLOOD UREA | 2021-11-12 | [facility] | 9 | mg/dl | (missing) | | NITROGEN | 03:54 | Health | | | | | (BUN) | | System - | | | | | (MG/DL) IN | | [place] | | | | | SER/PLAS | | | | | | + + + + + + + | BLOOD UREA | 2021-11-12 | [facility] | 9 | mg/dl | (missing) | | NITROGEN | 03:54 | Health | | | | | (BUN) | | System - | | | | | (MG/DL) IN | | [place] | | | | | SER/PLAS | | | | | | + + + + + + + | CALCIUM | 2021-11-12 | [facility] | 9.0 | mg/dl | (missing) | | (MG/DL) IN | 03:54 | Health | | | | | SER/PLAS | | System - | | | | | | | [place] | | | | + + + + + + + | CALCIUM | 2021-11-12 | [facility] | 9.0 | mg/dl | (missing) | | (MG/DL) IN | 03:54 | Health | | | | | SER/PLAS | | System - | | | | | | | [place] | | | | + + + + + + + | GLUCOSE, | 2021-11-12 | [facility] | 96 | mg/dl | (missing) | | RANDOM | 03:54 | Health | | | | | (MG/DL) IN | | System - | | | | | SER/PLAS | | [place] | | | | + + + + + + + | GLUCOSE, | 2021-11-12 | [facility] | 96 | mg/dl | (missing) | | RANDOM | 03:54 | Health | | | | | (MG/DL) IN | | System - | | | | | SER/PLAS | | [place] | | | | + + + + + + + | CLARITY OF | 2021-11-12 | [facility] | Hazy | (missing) | (missing) | | URINE | 03:54 | Health | | | | | | | System - | | | | | | | [place] | | | | + + + + + + + | CLARITY OF | 2021-11-12 | [facility] | [place] | (missing) | (missing) | | URINE | 03:54 | Health | | | | | | | System - | | | | | | | [place] | | | | + + + + + + + | | 2021-11-12 | [facility] | Negative | (missing) | (missing) | | BARBITURATES | 03:54 | Health | | | | | PRESENCE IN | | System - | | | | | URINE BY | | [place] | | | | | SCREEN | [...] | | | | (PRESENCE) | | [place] | | | | | IN URINE [...] | | | | URINE | | [place] | | | | + + + + + + + | COCAINE | 2021-11-12 | [facility] | Negative | (missing) | (missing) | | (PRESENCE) | 03:54 | Health | | | | | IN URINE BY | | System - | | | | | SCREEN | | [place] | | | | | METHOD | | | | | | + + + + + + + | GLUCOSE IN | 2021-11-12 | [facility] | Negative | (missing) | (missing) | | URINE | 03:54 | Health | | | | | | | System - | | | | | | | [place] | | | | + + + + + + + | METHADONE | 2021-11-12 | [facility] | Negative | (missing) | (missing) | | (PRESENCE) | 03:54 | Health | | | | | IN URINE BY | | System - | | | | | SCREEN | | [place] | | | | | METHOD | | | | | | + + + + + + + | NITRITE | 2021-11-12 | [facility] | Negative | (missing) | (missing) | | PRESENCE IN | 03:54 | Health | | | | | URINE | | System - | | | | | | | [place] | | | | + + + + + + + | OPIATES | 2021-11-12 | [facility] | Negative | (missing) | (missing) | | (PRESENCE) | 03:54 | Health | | | | | IN URINE BY | | System - | | | | | SCREEN | | [place] | | | | | METHOD | | | | | | + + + + + + + | OXYCODONE | 2021-11-12 | [facility] | Negative | (missing) | (missing) | | (PRESENCE) | 03:54 | Health | | | | | IN URINE BY | | System - | | | | | SCREEN | | [place] | | | | | METHOD | | | | | | + + + + + + + | | 2021-11-12 | [facility] | Negative | (missing) | (missing) | | PHENCYCLIDIN | 03:54 | Health | | | | | E (PRESENCE) | | System - | | | | | IN URINE BY | | [place] | | | | | SCREEN | [...] | | | BY SCREEN | | [place] | | | | | METHOD | | | | | | + + + + + + + | TRICYCLIC | 2021-11-12 | [facility] | Negative | (missing) | (missing) | | ANTIDEPRESSA | 03:54 | Health | | | | | NTS | | System - | | | | | (PRESENCE) | | [place] | | | | | IN URINE | | | | | | + + + + + + + | | 2021-11-12 | [facility] | Negative | (missing) | (missing) | | PHENCYCLIDIN | 03:54 | Health | | | | | E (PRESENCE) | | System - | | | | | IN URINE BY | | [place] | | | | | SCREEN | [...] | | | BY SCREEN | | [place] | | | | | METHOD | | | | | | + + + + + + + | OPIATES | 2021-11-12 | [facility] | Negative | (missing) | (missing) | | (PRESENCE) | 03:54 | Health | | | | | IN URINE BY | | System - | | | | | SCREEN | | [place] | | | | | METHOD | | | | | | + + + + + + + | TRICYCLIC | 2021-11-12 | [facility] | Negative | (missing) | (missing) | | ANTIDEPRESSA | 03:54 | Health | | | | | NTS | | System - | | | | | (PRESENCE) | | [place] | | | | | IN URINE | | | | | | + + + + + + + | OXYCODONE | 2021-11-12 | [facility] | Negative | (missing) | (missing) | | (PRESENCE) | 03:54 | Health | | | | | IN URINE BY | | System - | | | | | SCREEN | | [place] | | | | | METHOD | | | | | | + + + + + + + | BILIRUBIN, | 2021-11-12 | [facility] | Negative | (missing) | (missing) | | TOTAL | 03:54 | Health | | | | | PRESENCE IN | | System - | | | | | URINE | | [place] | | | | + + + + + + + | BHCG QUAL | 2021-11-12 | [facility] | Negative | (missing) | (missing) | | (CHORIOGONAD | 03:54 | Health | | | | | OTROPIN) IN | | System - | | | | | SER/PLAS | | [place] | | | | + + + + + + + | GLUCOSE IN | 2021-11-12 | [facility] | Negative | (missing) | (missing) | | URINE | 03:54 | Health | | | | | | | System - | | | | | | | [place] | | | | + + + + + + + | COCAINE | 2021-11-12 | [facility] | Negative | (missing) | (missing) | | (PRESENCE) | 03:54 | Health | | | | | IN URINE BY | | System - | | | | | SCREEN | | [place] | | | | | METHOD | | | | | | + + + + + + + | NITRITE | 2021-11-12 | [facility] | Negative | (missing) | (missing) | | PRESENCE IN | 03:54 | Health | | | | | URINE | | System - | | | | | | | [place] | | | | + + + + + + + | | 2021-11-12 | [facility] | Negative | (missing) | (missing) | | BARBITURATES | 03:54 | Health | | | | | PRESENCE IN | | System - | | | | | URINE BY | | [place] | | | | | SCREEN | [...] | | | | (PRESENCE) | | [place] | | | | | IN URINE [...] | | | | SCREEN | | [place] | | | | | METHOD | | | | | | + + + + + + + | [facility]CG QUAL | 2021-11-12 | [facility] | Negative | (missing) | (missing) | | (CHORIOGONAD | 03:54 | Health | | | | | OTROPIN) IN | | System - | | | | | SER/PLAS | | [place] | | | | + + + + + + + | | 2021-11-12 | [facility] | Normal | mg/dl | (missing) | | UROBILINOGEN | 03:54 | Health | | | | | (MG/DL) IN | | System - | | | | | URINE BY | | [place] | | | | | TEST STRIP | | | | | | + + + + + + + | | 2021-11-12 | [facility] | Normal | mg/dl | (missing) | | UROBILINOGEN | 03:54 | Health | | | | | (MG/DL) IN | | System - | | | | | URINE BY | | [place] | | | | | TEST STRIP | | | | | | + + + + + + + | | 2021-11-12 | [facility] | Presumptive | (missing) | (missing) | | METHAMPHETAM | 03:54 | Health | Positive | | | | INE | | System - | | | | | (PRESENCE) | | [place] | | | | | IN URINE [...] | | | | SCREEN | | [place] | | | | | METHOD | | | | | | + + + + + + + | | 2021-11-12 | [facility] | Presumptive | (missing) | (missing) | | METHAMPHETAM | 03:54 | Health | Positive | | | | INE | | System - | | | | | (PRESENCE) | | [place] | | | | | IN URINE [...] | | | | SCREEN | | [place] | | | | | METHOD | | | | | | + + + + + + + | KETONES IN | 2021-11-12 | [facility] | Trace | (missing) | (missing) | | URINE | 03:54 | Health | | | | | | | System - | | | | | | | [place] | | | | + + + + + + + | MUCUS | 2021-11-12 | [facility] | Trace | (missing) | (missing) | | (#/HPF) IN | 03:54 | Health | | | | | URINE | | System - | | | | | SEDIMENT | | [place] | | | | + + + + + + + | PROTEIN IN | 2021-11-12 | [facility] | Trace | (missing) | (missing) | | URINE BY | 03:54 | Health | | | | | TEST STRIP | | System - | | | | | | | [place] | | | | + + + + + + + | MUCUS | 2021-11-12 | [facility] | Trace | (missing) | (missing) | | (#/HPF) IN | 03:54 | Health | | | | | URINE | | System - | | | | | SEDIMENT | | [place] | | | | + + + + + + + | KETONES IN | 2021-11-12 | [facility] | Trace | (missing) | (missing) | | URINE | 03:54 | Health | | | | | | | System - | | | | | | | [place] | | | | + + + + + + + | PROTEIN IN | 2021-11-12 | [facility] | Trace | (missing) | (missing) | | URINE BY | 03:54 | Health | | | | | TEST STRIP | | System - | | | | | | | [place] | | | | + + + + + + + | COLOR OF | 2021-11-12 | [facility] | Yellow | (missing) | (missing) | | URINE | 03:54 | Health | | | | | | | System - | | | | | | | [place] | | | | + + + + + + + | COLOR OF | 2021-11-12 | [facility] | Yellow | (missing) | (missing) | | URINE | 03:54 | Health | | | | | | | System - | | | | | | | [place] | | | | + + + [...] | | | URINE BY | | [place] | | | | | TEST STRIP | | | | | | + + + + + + + | SPECIFIC | 2021-11-12 | [facility] | 1.031 | (missing) | (missing) | | GRAVITY OF | 04:26 | Health | | | | | URINE BY | | System - | | | | | AUTOMATED | | [facility] | | | | | TEST STRIP | | | | | | + + + + + + + | WBC | 2021-11-12 | [facility] | 11 | /hpf | (missing) | | (LEUKOCYTE) | 04:26 | Health | | | | | (#/HPF) IN | | System - | | | | | URINE | | [facility] | | | | | SEDIMENT | | | | | | + + + + + + + | SQUAMOUS | 2021-11-12 | [facility] | 14 | /hpf | (missing) | | EPITHELIAL | 04:26 | Health | | | | | CELLS | | System - | | | | | (#/HPF) IN | | [facility] | | | | | URINE | [...] | | | | | | | [facility] | | | | + + + + + + + | BACTERIA | 2021-11-12 | [facility] | 2 | /hpf | (missing) | | (#/HPF) IN | 04:26 | Health | | | | | URINE | | System - | | | | | | | [place] | | | | + + + + + + + | CALCIUM | 2021-11-12 | [facility] | 4 | /hpf | (missing) | | OXALATE | 04:26 | Health | | | | | CRYSTALS | | System - | | | | | (#/HPF) IN | | [facility] | | | | | URINE | | | | | | + + + + + + + | RBC (#/HPF) | 2021-11-12 | [facility] | 6 | /hpf | (missing) | | IN URINE | 04:26 | Health | | | | | SEDIMENT | | System - | | | | | | | [place] | | | | + + + + + + + | PH OF URINE | 2021-11-12 | [facility] | 6.0 | (missing) | (missing) | | | 04:26 | Health | | | | | | | System - | | | | | | | [place] | | | | + + + + + + + | CLARITY OF | 2021-11-12 | [facility] | Hazy | (missing) | (missing) | | URINE | 04:26 | Health | | | | | | | System - | | | | | | | [place] | | | | + + + + + + + | BILIRUBIN, | 2021-11-12 | [facility] | Negative | (missing) | (missing) | | TOTAL | 04:26 | Health | | | | | PRESENCE IN | | System - | | | | | URINE | | [place] | | | | + + + + + + + | GLUCOSE IN | 2021-11-12 | [facility] | Negative | (missing) | (missing) | | URINE | 04:26 | Health | | | | | | | System - | | | | | | | [place] | | | | + + + + + + + | NITRITE | 2021-11-12 | [facility] | Negative | (missing) | (missing) | | PRESENCE IN | 04:26 | Health | | | | | URINE | | System - | | | | | | | [place] | | | | + + + + + + + | URINE | 2021-11-12 | [facility] | Normal | (missing) | (missing) | | CULTURE | 04:26 | Health | urogenital | | | | | | System - | microbiota | | | | | | [place] | | | | + + + + + + + | URINE | 2021-11-12 | [facility] | Normal | (missing) | (missing) | | CULTURE | 04:26 | Health | urogenital | | | | | | System - | microbiota | | | | | | [place] | | | | + + + + + + + | | 2021-11-12 | [facility] | Normal | mg/dl | (missing) | | UROBILINOGEN | 04:26 | Health | | | | | (MG/DL) IN | | System - | | | | | URINE BY | | [place] | | | | | TEST STRIP | | | | | | + + + + + + + | MUCUS | 2021-11-12 | [facility] | Trace | (missing) | (missing) | | (#/HPF) IN | | Health | | | | | URINE | | System - | | | | | SEDIMENT | | [place] | | | | + + + + + + + | KETONES IN | 2021-11-12 | [facility] | Trace | (missing) | (missing) | | URINE | 04:26 | Health | | | | | | | System - | | | | | | | [place] | | | | + + + + + + + | PROTEIN IN | 2021-11-12 | [facility] | Trace | (missing) | (missing) | | URINE BY | 04:26 | Health | | | | | TEST STRIP | | System - | | | | | | | [place] | | | | + + + + + + + | COLOR OF | 2021-11-12 | [facility] | Yellow | (missing) | (missing) | | URINE | 04:26 | Health | | | | | | | System - | | | | | | | [place] | | | | + + + [...] | | | | COUNT | | [place] | | | | + + + +--------+---------+ + | NRBC/100 | 2021-11-13 | [facility] | 0.0 | % | (missing) | | WBCS BY | 06:26 | Health | | | | | AUTOMATED | | System - | | | | | COUNT | | [place] | | | | + + + +--------+---------+ + | | 2021-11-13 | [facility] | 0.0 | k/mcl | (missing) | | NRBC(10*3/UL | 06:26 | Health | | | | | ) IN BLOOD | | System - | | | | | BY AUTOMATED | | [place] | | | | | COUNT | | | | | | + + + +--------+---------+ + | | 2021-11-13 | [facility] | 0.0 | k/mcl | (missing) | | NRBC(10*3/UL | 06:26 | Health | | | | | ) IN BLOOD | | System - | | | | | BY AUTOMATED | | [place] | | | | | COUNT | | | | | | + + + +--------+---------+ + | IMMATURE | 2021-11-13 | [facility] | 0.05 | k/mcl | (missing) | | GRANULOCYTE | 06:26 | Health | | | | | (ABS) | | System - | | | | | | | [place] | | | | + + + +--------+---------+ + | IMMATURE | 2021-11-13 | [facility] | 0.05 | k/mcl | (missing) | | GRANULOCYTE | 06:26 | Health | | | | | (ABS) | | System - | | | | | | | [place] | | | | + + + +--------+---------+ + | BASOPHILS | 2021-11-13 | [facility] | 0.1 | k/mcl | (missing) | | (10*3/UL) IN | 06:26 | Health | | | | | BLOOD BY | | System - | | | | | AUTOMATED | | [place] | | | | | COUNT | | | | | | + + + +--------+---------+ + | EOSINOPHILS | 2021-11-13 | [facility] | 0.1 | k/mcl | (missing) | | (10*3/UL) | 06:26 | Health | | | | | IN BLOOD BY | | System - | | | | | AUTOMATED | | [place] | | | | | COUNT | | | | | | + + + +--------+---------+ + | BASOPHILS | 2021-11-13 | [facility] | 0.1 | k/mcl | (missing) | | (10*3/UL) IN | 06:26 | Health | | | | | BLOOD BY | | System - | | | | | AUTOMATED | | [place] | | | | | COUNT | | | | | | + + + +--------+---------+ + | EOSINOPHILS | 2021-11-13 | [facility] | 0.1 | k/mcl | (missing) | | (10*3/UL) | 06: | Health | | | | | IN BLOOD BY | | System - | | | | | AUTOMATED | | [place] | | | | | COUNT | | | | | | + + + +--------+---------+ + | IMMATURE | 2021-11-13 | [facility] | 0.5 | % | (missing) | | GRANULOCYTE | 06:26 | Health | | | | | % (AUTO) | | System - | | | | | | | [place] | | | | + + + +--------+---------+ + | | 2021-11-13 | [facility] | 0.5 | % | (missing) | | BASOPHILS/10 | 06:26 | Health | | | | | 0 LEUKOCYTES | | System - | | | | | IN BLOOD BY | | [place] | | | | | AUTOMATED | | | | | | | COUNT | | | | | | + + + +--------+---------+ + | | 2021-11-13 | [facility] | 0.5 | % | (missing) | | BASOPHILS/10 | : | Health | | | | | 0 LEUKOCYTES | | System - | | | | | IN BLOOD BY | | [place] | | | | | AUTOMATED | | | | | | | COUNT | | | | | | + + + +--------+---------+ + | IMMATURE | 2021-11-13 | [facility] | 0.5 | % | (missing) | | GRANULOCYTE | 06: | Health | | | | | % (AUTO) | | System - | | | | | | | [place] | | | | + + + +--------+---------+ + | MONOCYTES | 2021-11-13 | [facility] | 0.6 | k/mcl | (missing) | | (10*3/UL) IN | : | Health | | | | | BLOOD BY | | System - | | | | | AUTOMATED | | [place] | | | | | COUNT | | | | | | + + + +--------+---------+ + | MONOCYTES | 2021-11-13 | [facility] | 0.6 | k/mcl | (missing) | | (10*3/UL) IN | 06:26 | Health | | | | | BLOOD BY | | System - | | | | | AUTOMATED | | [place] | | | | | COUNT | | | | | | + + + +--------+---------+ + | | 2021-11-13 | [facility] | 1.2 | % | (missing) | | EOSINOPHILS/ | 06:26 | Health | | | | | 100 | | System - | | | | | LEUKOCYTES | | [place] | | | | | IN BLOOD [...] | | | | LEUKOCYTES | | [place] | | | | | IN BLOOD [...] | | | BLOOD BY | | [place] | | | | | AUTOMATED | [...] | | | BLOOD BY | | [place] | | | | | AUTOMATED | | | | | | | COUNT | | | | | | + + + +--------+---------+ + | ERYTHROCYTE | 2021-11-13 | [facility] | 12.7 | % | (missing) | | | 06:26 | Health | | | | | DISTRIBUTION | | System - | | | | | WIDTH | | [place] | | | | | (RATIO) BY | | | | | | | AUTOMATED | | | | | | | COUNT | | | | | | + + + +--------+---------+ + | ERYTHROCYTE | 2021-11-13 | [facility] | 12.7 | % | (missing) | | | : | Health | | | | | DISTRIBUTION | | System - | | | | | WIDTH | | [place] | | | | | (RATIO) BY [...] | | | | | | | [place] | | | | + + + +--------+---------+ + | HEMOGLOBIN | 2021-11-13 | [facility] | 14.2 | g/dl | (missing) | | (G/DL) IN | | Health | | | | | BLOOD | | System - | | | | | | | [place] | | | | + + + +--------+---------+ + | LYMPHOCYTES | 2021-11-13 | [facility] | 3.8 | k/mcl | (missing) | | (10*3/UL) | 06: | Health | | | | | IN BLOOD BY | | System - | | | | | AUTOMATED | | [place] | | | | | COUNT | | | | | | + + + +--------+---------+ + | LYMPHOCYTES | 2021-11-13 | [facility] | 3.8 | k/mcl | (missing) | | (10*3/UL) | 06:26 | Health | | | | | IN BLOOD BY | | System - | | | | | AUTOMATED | | [place] | | | | | COUNT | | | | | | + + + +--------+---------+ + | ERYTHROCYTE | 2021-11-13 | [facility] | 30.8 | pg | (missing) | | MEAN | 06:26 | Health | | | | | CORPUSCULAR | | System - | | | | | HEMOGLOBIN | | [place] | | | | | (PG) BY [...] | | | | HEMOGLOBIN | | [place] | | | | | (PG) BY [...] | | | | HEMOGLOBIN | | [place] | | | | | CONCENTRATIO | [...] | | | | HEMOGLOBIN | | [place] | | | | | CONCENTRATIO | [...] | | | | LEUKOCYTES | | [place] | | | | | IN BLOOD [...] | | | | LEUKOCYTES | | [place] | | | | | IN BLOOD [...] | | | | AUTOMATED | | [place] | | | | | COUNT | | | | | | + + + +--------+---------+ + | PLATELETS | 2021-11-13 | [facility] | 377 | k/mcl | (missing) | | (10*3/UL) IN | 06:26 | Health | | | | | BLOOD | | System - | | | | | AUTOMATED | | [place] | | | | | COUNT | | | | | | + + + +--------+---------+ + | | 2021-11-13 | [facility] | 4.61 | m/mcl | (missing) | | ERYTHROCYTES | 06:26 | Health | | | | | (10*6/UL) | | System - | | | | | IN BLOOD BY | | [place] | | | | | AUTOMATED | [...] | | IN BLOOD BY | | [place] | | | | | AUTOMATED | [...] | | | | AUTOMATED | | [place] | | | | | COUNT | | | | | | + + + +--------+---------+ + | HEMATOCRIT | 2021-11-13 | [facility] | 41.5 | % | (missing) | | (%) IN BLOOD | 06:26 | Health | | | | | BY | | System - | | | | | AUTOMATED | | [place] | | | | | COUNT | | | | | | + + + +--------+---------+ + | | 2021-11-13 | [facility] | 5.5 | % | (missing) | | MONOCYTES/10 | 06:26 | Health | | | | | 0 LEUKOCYTES | | System - | | | | | IN BLOOD BY | | [place] | | | | | AUTOMATED | [...] | | IN BLOOD BY | | [place] | | | | | AUTOMATED | [...] | | | | AUTOMATED | | [place] | | | | | COUNT | | | | | | + + + +--------+---------+ + | NEUTROPHILS | 2021-11-13 | [facility] | 5.7 | k/mcl | (missing) | | (10*3/UL) | 06:26 | Health | | | | | IN BLOOD BY | | System - | | | | | AUTOMATED | | [place] | | | | | COUNT | | | | | | + + + +--------+---------+ + | | 2021-11-13 | [facility] | 55.1 | % | (missing) | | NEUTROPHILS/ | 06:26 | Health | | | | | 100 | | System - | | | | | LEUKOCYTES | | [place] | | | | | IN BLOOD [...] | | | | LEUKOCYTES | | [place] | | | | | IN BLOOD [...] | | | BLOOD BY | | [place] | | | | | AUTOMATED | [...] | | | BLOOD BY | | [place] | | | | | AUTOMATED | [...] | | | VOLUME (FL) | | [place] | | | | | BY AUTOMATED [...] | | | VOLUME (FL) | | [place] | | | | | BY AUTOMATED [...] ? | | | RATE) | | [place] | | | | | ML/MIN/1.73 | [...] ? | | | RATE) | | [place] | | | | | ML/MIN/1.73 | [...] | | | | | | | [place] | | | | + + + + + + + | ALCOHOL | 2021-11-13 | [facility] | < | g/dl | (missing) | | (G/DL) IN | 06:27 | Health | | | | | SER/PLAS | | System - | | | | | | | [place] | | | | + + + + + + + | | 2021-11-13 | [facility] | < | mcg/ml | (missing) | | ACETAMINOPHE | 06:27 | Health | | | | | N (UG/ML) IN | | System - | | | | | SER/PLAS | | [place] | | | | + + + + + + + | | 2021-11-13 | [facility] | < | mcg/ml | (missing) | | ACETAMINOPHE | 06:27 | Health | | | | | N (UG/ML) IN | | System - | | | | | SER/PLAS | | [place] | | | | + + + + + + + | SALICYLATE | 2021-11-13 | [facility] | < | mg/dl | (missing) | | (MG/DL) IN | 06: | Health | | | | | SER/PLAS | | System - | | | | | | | [place] | | | | + + + + + + + | BILIRUBIN | 2021-11-13 | [facility] | < | mg/dl | (missing) | | TOTAL | 06:27 | Health | | | | | (MG/DL) IN | | System - | | | | | SER/PLAS | | [place] | | | | + + + + + + + | BILIRUBIN | 2021-11-13 | [facility] | < | mg/dl | (missing) | | TOTAL | 06:27 | Health | | | | | (MG/DL) IN | | System - | | | | | SER/PLAS | | [place] | | | | + + + + + + + | SALICYLATE | 2021-11-13 | [facility] | < | mg/dl | (missing) | | (MG/DL) IN | 06:27 | Health | | | | | SER/PLAS | | System - | | | | | | | [place] | | | | + + + + + + + | CREATININE | 2021-11-13 | [facility] | 0.8 | mg/dl | (missing) | | (MG/DL) IN | 06:27 | Health | | | | | SER/PLAS | | System - | | | | | | | [place] | | | | + + + + + + + | CREATININE | 2021-11-13 | [facility] | 0.8 | mg/dl | (missing) | | (MG/DL) IN | 06:27 | Health | | | | | SER/PLAS | | System - | | | | | | | [place] | | | | + + + + + + + | GLUCOSE, | 2021-11-13 | [facility] | 103 | mg/dl | (missing) | | RANDOM | 06:27 | Health | | | | | (MG/DL) IN | | System - | | | | | SER/PLAS | | [place] | | | | + + + + + + + | GLUCOSE, | 2021-11-13 | [facility] | 103 | mg/dl | (missing) | | RANDOM | 06:27 | Health | | | | | (MG/DL) IN | | System - | | | | | SER/PLAS | | [place] | | | | + + + + + + + | CHLORIDE | 2021-11-13 | [facility] | 108 | mmol/l | (missing) | | (MMOL/L) IN | 06:27 | Health | | | | | SER/PLAS | | System - | | | | | | | [place] | | | | + + + + + + + | CHLORIDE | 2021-11-13 | [facility] | 108 | mmol/l | (missing) | | (MMOL/L) IN | 06:27 | Health | | | | | SER/PLAS | | System - | | | | | | | [place] | | | | + + + + + + + | BLOOD UREA | 2021-11-13 | [facility] | 12 | mg/dl | (missing) | | NITROGEN | 06:27 | Health | | | | | (BUN) | | System - | | | | | (MG/DL) IN | | [place] | | | | | SER/PLAS | | | | | | + + + + + + + | BLOOD UREA | 2021-11-13 | [facility] | 12 | mg/dl | (missing) | | NITROGEN | 06:27 | Health | | | | | (BUN) | | System - | | | | | (MG/DL) IN | | [place] | | | | | SER/PLAS | | | | | | + + + + + + + | ALANINE | 2021-11-13 | [facility] | 14 | u/l | (missing) | | AMINOTRANSFE | 06:27 | Health | | | | | RASE (SGPT) | | System - | | | | | (U/L) IN | | [place] | | | | | SER/PLAS | | | | | | + + + + + + + | ALANINE | 2021-11-13 | [facility] | 14 | u/l | (missing) | | AMINOTRANSFE | 06:27 | Health | | | | | RASE (SGPT) | | System - | | | | | (U/L) IN | | [place] | | | | | SER/PLAS | | | | | | + + + + + + + | ANION GAP | 2021-11-13 | [facility] | 14.0 | mmol/l | (missing) | | IN SER/PLAS | 06:27 | Health | | | | | | | System - | | | | | | | [place] | | | | + + + + + + + | ANION GAP | 2021-11-13 | [facility] | 14.0 | mmol/l | (missing) | | IN SER/PLAS | 06:27 | Health | | | | | | | System - | | | | | | | [place] | | | | + + + + + + + | SODIUM | 2021-11-13 | [facility] | 141 | mmol/l | (missing) | | (MMOL/L) IN | 06: | Health | | | | | SER/PLAS | | System - | | | | | | | [place] | | | | + + + + + + + | SODIUM | 2021-11-13 | [facility] | 141 | mmol/l | (missing) | | (MMOL/L) IN | 06:27 | Health | | | | | SER/PLAS | | System - | | | | | | | [place] | | | | + + + + + + + | CARBON | 2021-11-13 | [facility] | 19 | mmol/l | (missing) | | DIOXIDE | 06:27 | Health | | | | | (CO2), TOTAL | | System - | | | | | (MMOL/L) IN | | [place] | | | | | SER/PLAS | | | | | | + + + + + + + | CARBON | 2021-11-13 | [facility] | 19 | mmol/l | (missing) | | DIOXIDE | 06:27 | Health | | | | | (CO2), TOTAL | | System - | | | | | (MMOL/L) IN | | [place] | | | | | SER/PLAS | | | | | | + + + + + + + | ASPARTATE | 2021-11-13 | [facility] | 25 | u/l | (missing) | | AMINOTRANSFE | 06:27 | Health | | | | | RASE (SGOT) | | System - | | | | | (U/L) IN | | [place] | | | | | SER/PLAS | | | | | | + + + + + + + | ASPARTATE | 2021-11-13 | [facility] | 25 | u/l | (missing) | | AMINOTRANSFE | 06:27 | Health | | | | | RASE (SGOT) | | System - | | | | | (U/L) IN | | [place] | | | | | SER/PLAS | | | | | | + + + + + + + | POTASSIUM | 2021-11-13 | [facility] | 4.1 | mmol/l | (missing) | | (MMOL/L) IN | | Health | | | | | SER/PLAS | | System - | | | | | | | [place] | | | | + + + + + + + | POTASSIUM | 2021-11-13 | [facility] | 4.1 | mmol/l | (missing) | | (MMOL/L) IN | | Health | | | | | SER/PLAS | | System - | | | | | | | [place] | | | | + + + + + + + | ALBUMIN | 2021-11-13 | [facility] | 4.6 | g/dl | (missing) | | (G/DL) IN | : | Health | | | | | SER/PLAS | | System - | | | | | | | [place] | | | | + + + + + + + | ALBUMIN | 2021-11-13 | [facility] | 4.6 | g/dl | (missing) | | (G/DL) IN | 06:27 | Health | | | | | SER/PLAS | | System - | | | | | | | [place] | | | | + + + + + + + | TSH | 2021-11-13 | [facility] | 4.61 | mciu/ml | (missing) | | (THYROTROPIN | 06:27 | Health | | | | | ) (UIU/ML) | | System - | | | | | IN SER/PLAS | | [place] | | | | + + + + + + + | TSH | 2021-11-13 | [facility] | 4.61 | mciu/ml | (missing) | | (THYROTROPIN | 06:27 | Health | | | | | ) (UIU/ML) | | System - | | | | | IN SER/PLAS | | [place] | | | | + + + + + + + | ALKALINE | 2021-11-13 | [facility] | 69 | u/l | (missing) | | PHOSPHATASE | 06:27 | Health | | | | | (U/L) IN | | System - | | | | | SER/PLAS | | [place] | | | | + + + + + + + | ALKALINE | 2021-11-13 | [facility] | 69 | u/l | (missing) | | PHOSPHATASE | 06:27 | Health | | | | | (U/L) IN | | System - | | | | | SER/PLAS | | [place] | | | | + + + + + + + | PROTEIN | 2021-11-13 | [facility] | 7.4 | g/dl | (missing) | | (G/DL) IN | 06:27 | Health | | | | | SER/PLAS | | System - | | | | | | | [place] | | | | + + + + + + + | PROTEIN | 2021-11-13 | [facility] | 7.4 | g/dl | (missing) | | (G/DL) IN | | Health | | | | | SER/PLAS | | System - | | | | | | | [place] | | | | + + + + + + + | CALCIUM | 2021-11-13 | [facility] | 9.0 | mg/dl | (missing) | | (MG/DL) IN | | Health | | | | | SER/PLAS | | System - | | | | | | | [place] | | | | + + + + + + + | CALCIUM | 2021-11-13 | [facility] | 9.0 | mg/dl | (missing) | | (MG/DL) IN | | Health | | | | | SER/PLAS | | System - | | | | | | | [place] | | | | + + + + + + + | [facility] QUAL | 2021-11-13 | [facility] | Negative | (missing) | (missing) | | (CHORIOGONAD | | Health | | | | | OTROPIN) IN | | System - | | | | | SER/PLAS | | [place] | | | | + + + + + + + | [facility] QUAL | 2021-11-13 | [facility] | Negative | (missing) | (missing) | | (CHORIOGONAD | 06:27 | Health | | | | | OTROPIN) IN | | System - | | | | | SER/PLAS | | [place] | | | | + + + [...] ? | | | RATE) | | [place] | | | | | ML/MIN/1.73 | [...] ? | | | RATE) | | [place] | | | | | ML/MIN/1.73 | [...] | | | | | | | [place] | | | | + + + + + + + | ALCOHOL | 2021-11-14 | [facility] | < | g/dl | (missing) | | (G/DL) IN | 14:36 | Health | | | | | SER/PLAS | | System - | | | | | | | [place] | | | | + + + + + + + | | 2021-11-14 | [facility] | < | mcg/ml | (missing) | | ACETAMINOPHE | 14:36 | Health | | | | | N (UG/ML) IN | | System - | | | | | SER/PLAS | | [place] | | | | + + + + + + + | | 2021-11-14 | [facility] | < | mcg/ml | (missing) | | ACETAMINOPHE | 14:36 | Health | | | | | N (UG/ML) IN | | System - | | | | | SER/PLAS | | [place] | | | | + + + + + + + | SALICYLATE | 2021-11-14 | [facility] | < | mg/dl | (missing) | | (MG/DL) IN | 14:36 | Health | | | | | SER/PLAS | | System - | | | | | | | [place] | | | | + + + + + + + | SALICYLATE | 2021-11-14 | [facility] | < | mg/dl | (missing) | | (MG/DL) IN | 14:36 | Health | | | | | SER/PLAS | | System - | | | | | | | [place] | | | | + + + + + + + | NRBC/100 | 2021-11-14 | [facility] | 0.0 | % | (missing) | | WBCS BY | 14:36 | Health | | | | | AUTOMATED | | System - | | | | | COUNT | | [place] | | | | + + + + + + + | NRBC/100 | 2021-11-14 | [facility] | 0.0 | % | (missing) | | WBCS BY | 14:36 | Health | | | | | AUTOMATED | | System - | | | | | COUNT | | [place] | | | | + + + + + + + | | 2021-11-14 | [facility] | 0.0 | k/mcl | (missing) | | NRBC(10*3/UL | 14:36 | Health | | | | | ) IN BLOOD | | System - | | | | | BY AUTOMATED | | [place] | | | | | COUNT | | | | | | + + + + + + + | | 2021-11-14 | [facility] | 0.0 | k/mcl | (missing) | | NRBC(10*3/UL | 14:36 | Health | | | | | ) IN BLOOD | | System - | | | | | BY AUTOMATED | | [place] | | | | | COUNT | | | | | | + + + + + + + | IMMATURE | 2021-11-14 | [facility] | 0.05 | k/mcl | (missing) | | GRANULOCYTE | 14:36 | Health | | | | | (ABS) | | System - | | | | | | | [place] | | | | + + + + + + + | IMMATURE | 2021-11-14 | [facility] | 0.05 | k/mcl | (missing) | | GRANULOCYTE | 14:36 | Health | | | | | (ABS) | | System - | | | | | | | [place] | | | | + + + + + + + | BASOPHILS | 2021-11-14 | [facility] | 0.1 | k/mcl | (missing) | | (10*3/UL) IN | 14:36 | Health | | | | | BLOOD BY | | System - | | | | | AUTOMATED | | [place] | | | | | COUNT | | | | | | + + + + + + + | BASOPHILS | 2021-11-14 | [facility] | 0.1 | k/mcl | (missing) | | (10*3/UL) IN | 14:36 | Health | | | | | BLOOD BY | | System - | | | | | AUTOMATED | | [place] | | | | | COUNT | | | | | | + + + + + + + | EOSINOPHILS | 2021-11-14 | [facility] | 0.2 | k/mcl | (missing) | | (10*3/UL) | 14:36 | Health | | | | | IN BLOOD BY | | System - | | | | | AUTOMATED | | [place] | | | | | COUNT | | | | | | + + + + + + + | EOSINOPHILS | 2021-11-14 | [facility] | 0.2 | k/mcl | (missing) | | (10*3/UL) | 14:36 | Health | | | | | IN BLOOD BY | | System - | | | | | AUTOMATED | | [place] | | | | | COUNT | | | | | | + + + + + + + | BILIRUBIN | 2021-11-14 | [facility] | 0.2 | mg/dl | (missing) | | TOTAL | 14:36 | Health | | | | | (MG/DL) IN | | System - | | | | | SER/PLAS | | [place] | | | | + + + + + + + | BILIRUBIN | 2021-11-14 | [facility] | 0.2 | mg/dl | (missing) | | TOTAL | 14:36 | Health | | | | | (MG/DL) IN | | System - | | | | | SER/PLAS | | [place] | | | | + + + + + + + | MONOCYTES | 2021-11-14 | [facility] | 0.4 | k/mcl | (missing) | | (10*3/UL) IN | 14:36 | Health | | | | | BLOOD BY | | System - | | | | | AUTOMATED | | [place] | | | | | COUNT | | | | | | + + + + + + + | MONOCYTES | 2021-11-14 | [facility] | 0.4 | k/mcl | (missing) | | (10*3/UL) IN | 14:36 | Health | | | | | BLOOD BY | | System - | | | | | AUTOMATED | | [place] | | | | | COUNT | | | | | | + + + + + + + | IMMATURE | 2021-11-14 | [facility] | 0.6 | % | (missing) | | GRANULOCYTE | 14:36 | Health | | | | | % (AUTO) | | System - | | | | | | | [place] | | | | + + + + + + + | | 2021-11-14 | [facility] | 0.6 | % | (missing) | | BASOPHILS/10 | 14:36 | Health | | | | | 0 LEUKOCYTES | | System - | | | | | IN BLOOD BY | | [place] | | | | | AUTOMATED | [...] | | IN BLOOD BY | | [place] | | | | | AUTOMATED | [...] | | | | | | | [place] | | | | + + + + + + + | CREATININE | 2021-11-14 | [facility] | 0.8 | mg/dl | (missing) | | (MG/DL) IN | 14:36 | Health | | | | | SER/PLAS | | System - | | | | | | | [place] | | | | + + + + + + + | CREATININE | 2021-11-14 | [facility] | 0.8 | mg/dl | (missing) | | (MG/DL) IN | 14:36 | Health | | | | | SER/PLAS | | System - | | | | | | | [place] | | | | + + + + + + + | CHLORIDE | 2021-11-14 | [facility] | 109 | mmol/l | (missing) | | (MMOL/L) IN | 14:36 | Health | | | | | SER/PLAS | | System - | | | | | | | [place] | | | | + + + + + + + | CHLORIDE | 2021-11-14 | [facility] | 109 | mmol/l | (missing) | | (MMOL/L) IN | 14:36 | Health | | | | | SER/PLAS | | System - | | | | | | | [place] | | | | + + + + + + + | BLOOD UREA | 2021-11-14 | [facility] | 11 | mg/dl | (missing) | | NITROGEN | 14:36 | Health | | | | | (BUN) | | System - | | | | | (MG/DL) IN | | [place] | | | | | SER/PLAS | | | | | | + + + + + + + | BLOOD UREA | 2021-11-14 | [facility] | 11 | mg/dl | (missing) | | NITROGEN | 14:36 | Health | | | | | (BUN) | | System - | | | | | (MG/DL) IN | | [place] | | | | | SER/PLAS | | | | | | + + + + + + + | ERYTHROCYTE | 2021-11-14 | [facility] | 12.4 | % | (missing) | | | 14:36 | Health | | | | | DISTRIBUTION | | System - | | | | | WIDTH | | [place] | | | | | (RATIO) BY [...] | | | | WIDTH | | [place] | | | | | (RATIO) BY [...] | | | | | | | [place] | | | | + + + + + + + | ANION GAP | 2021-11-14 | [facility] | 13.0 | mmol/l | (missing) | | IN SER/PLAS | 14:36 | Health | | | | | | | System - | | | | | | | [place] | | | | + + + + + + + | HEMOGLOBIN | 2021-11-14 | [facility] | 14.5 | g/dl | (missing) | | (G/DL) IN | 14:36 | Health | | | | | BLOOD | | System - | | | | | | | [place] | | | | + + + + + + + | HEMOGLOBIN | 2021-11-14 | [facility] | 14.5 | g/dl | (missing) | | (G/DL) IN | 14:36 | Health | | | | | BLOOD | | System - | | | | | | | [place] | | | | + + + + + + + | SODIUM | 2021-11-14 | [facility] | 142 | mmol/l | (missing) | | (MMOL/L) IN | 14:36 | Health | | | | | SER/PLAS | | System - | | | | | | | [place] | | | | + + + + + + + | SODIUM | 2021-11-14 | [facility] | 142 | mmol/l | (missing) | | (MMOL/L) IN | 14:36 | Health | | | | | SER/PLAS | | System - | | | | | | | [place] | | | | + + + + + + + | GLUCOSE, | 2021-11-14 | [facility] | 145 | mg/dl | (missing) | | RANDOM | 14:36 | Health | | | | | (MG/DL) IN | | System - | | | | | SER/PLAS | | [place] | | | | + + + + + + + | GLUCOSE, | 2021-11-14 | [facility] | 145 | mg/dl | (missing) | | RANDOM | 14:36 | Health | | | | | (MG/DL) IN | | System - | | | | | SER/PLAS | | [place] | | | | + + + + + + + | ASPARTATE | 2021-11-14 | [facility] | 18 | u/l | (missing) | | AMINOTRANSFE | 14:36 | Health | | | | | RASE (SGOT) | | System - | | | | | (U/L) IN | | [place] | | | | | SER/PLAS | | | | | | + + + + + + + | ASPARTATE | 2021-11-14 | [facility] | 18 | u/l | (missing) | | AMINOTRANSFE | 14:36 | Health | | | | | RASE (SGOT) | | System - | | | | | (U/L) IN | | [place] | | | | | SER/PLAS | | | | | | + + + + + + + | | 2021-11-14 | [facility] | 2.4 | % | (missing) | | EOSINOPHILS/ | 14:36 | Health | | | | | 100 | | System - | | | | | LEUKOCYTES | | [place] | | | | | IN BLOOD [...] | | | | LEUKOCYTES | | [place] | | | | | IN BLOOD [...] | | | (MMOL/L) IN | | [place] | | | | | SER/PLAS | | | | | | + + + + + + + | CARBON | 2021-11-14 | [facility] | 20 | mmol/l | (missing) | | DIOXIDE | 14:36 | Health | | | | | (CO2), TOTAL | | System - | | | | | (MMOL/L) IN | | [place] | | | | | SER/PLAS | | | | | | + + + + + + + | LYMPHOCYTES | 2021-11-14 | [facility] | 3.1 | k/mcl | (missing) | | (10*3/UL) | 14:36 | Health | | | | | IN BLOOD BY | | System - | | | | | AUTOMATED | | [place] | | | | | COUNT | | | | | | + + + + + + + | LYMPHOCYTES | 2021-11-14 | [facility] | 3.1 | k/mcl | (missing) | | (10*3/UL) | 14:36 | Health | | | | | IN BLOOD BY | | System - | | | | | AUTOMATED | | [place] | | | | | COUNT | | | | | | + + + + + + + | POTASSIUM | 2021-11-14 | [facility] | 3.3 | mmol/l | (missing) | | (MMOL/L) IN | 14:36 | Health | | | | | SER/PLAS | | System - | | | | | | | [place] | | | | + + + + + + + | POTASSIUM | 2021-11-14 | [facility] | 3.3 | mmol/l | (missing) | | (MMOL/L) IN | 14:36 | Health | | | | | SER/PLAS | | System - | | | | | | | [place] | | | | + + + + + + + | ERYTHROCYTE | 2021-11-14 | [facility] | 31.6 | pg | (missing) | | MEAN | 14:36 | Health | | | | | CORPUSCULAR | | System - | | | | | HEMOGLOBIN | | [place] | | | | | (PG) BY [...] | | | | HEMOGLOBIN | | [place] | | | | | (PG) BY [...] | | | | HEMOGLOBIN | | [place] | | | | | CONCENTRATIO | [...] | | | | HEMOGLOBIN | | [place] | | | | | CONCENTRATIO | [...] | | | | LEUKOCYTES | | [place] | | | | | IN BLOOD [...] | | | | LEUKOCYTES | | [place] | | | | | IN BLOOD [...] | | | | AUTOMATED | | [place] | | | | | COUNT | | | | | | + + + + + + + | PLATELETS | 2021-11-14 | [facility] | 340 | k/mcl | (missing) | | (10*3/UL) IN | 14:36 | Health | | | | | BLOOD | | System - | | | | | AUTOMATED | | [place] | | | | | COUNT | | | | | | + + + + + + + | ALBUMIN | 2021-11-14 | [facility] | 4.0 | g/dl | (missing) | | (G/DL) IN | 14:36 | Health | | | | | SER/PLAS | | System - | | | | | | | [place] | | | | + + + + + + + | ALBUMIN | 2021-11-14 | [facility] | 4.0 | g/dl | (missing) | | (G/DL) IN | 14:36 | Health | | | | | SER/PLAS | | System - | | | | | | | [place] | | | | + + + + + + + | | 2021-11-14 | [facility] | 4.59 | m/mcl | (missing) | | ERYTHROCYTES | 14:36 | Health | | | | | (10*6/UL) | | System - | | | | | IN BLOOD BY | | [place] | | | | | AUTOMATED | [...] | | IN BLOOD BY | | [place] | | | | | AUTOMATED | [...] | | IN BLOOD BY | | [place] | | | | | AUTOMATED | [...] | | IN BLOOD BY | | [place] | | | | | AUTOMATED | [...] | | | | AUTOMATED | | [place] | | | | | COUNT | | | | | | + + + + + + + | HEMATOCRIT | 2021-11-14 | [facility] | 42.0 | % | (missing) | | (%) IN BLOOD | 14:36 | Health | | | | | BY | | System - | | | | | AUTOMATED | | [place] | | | | | COUNT | | | | | | + + + + + + + | NEUTROPHILS | 2021-11-14 | [facility] | 5.0 | k/mcl | (missing) | | (10*3/UL) | 14:36 | Health | | | | | IN BLOOD BY | | System - | | | | | AUTOMATED | | [place] | | | | | COUNT | | | | | | + + + + + + + | NEUTROPHILS | 2021-11-14 | [facility] | 5.0 | k/mcl | (missing) | | (10*3/UL) | 14:36 | Health | | | | | IN BLOOD BY | | System - | | | | | AUTOMATED | | [place] | | | | | COUNT | | | | | | + + + + + + + | ALKALINE | 2021-11-14 | [facility] | 56 | u/l | (missing) | | PHOSPHATASE | 14:36 | Health | | | | | (U/L) IN | | System - | | | | | SER/PLAS | | [place] | | | | + + + + + + + | ALKALINE | 2021-11-14 | [facility] | 56 | u/l | (missing) | | PHOSPHATASE | 14:36 | Health | | | | | (U/L) IN | | System - | | | | | SER/PLAS | | [place] | | | | + + + + + + + | | 2021-11-14 | [facility] | 57.0 | % | (missing) | | NEUTROPHILS/ | 14:36 | Health | | | | | 100 | | System - | | | | | LEUKOCYTES | | [place] | | | | | IN BLOOD [...] | | | | LEUKOCYTES | | [place] | | | | | IN BLOOD BY | | | | | | | AUTOMATED | | | | | | | COUNT | | | | | | + + + + + + + | PROTEIN | 2021-11-14 | [facility] | 6.4 | g/dl | (missing) | | (G/DL) IN | 36 | Health | | | | | SER/PLAS | | System - | | | | | | | [place] | | | | + + + + + + + | PROTEIN | 2021-11-14 | [facility] | 6.4 | g/dl | (missing) | | (G/DL) IN | :36 | Health | | | | | SER/PLAS | | System - | | | | | | | [place] | | | | + + + + + + + | ALANINE | 2021-11-14 | [facility] | 7 | u/l | (missing) | | AMINOTRANSFE | 14:36 | Health | | | | | RASE (SGPT) | | System - | | | | | (U/L) IN | | [place] | | | | | SER/PLAS | | | | | | + + + + + + + | ALANINE | 2021-11-14 | [facility] | 7 | u/l | (missing) | | AMINOTRANSFE | 14:36 | Health | | | | | RASE (SGPT) | | System - | | | | | (U/L) IN | | [place] | | | | | SER/PLAS | | | | | | + + + + + + + | CALCIUM | 2021-11-14 | [facility] | 8.4 | mg/dl | (missing) | | (MG/DL) IN | 14:36 | Health | | | | | SER/PLAS | | System - | | | | | | | [place] | | | | + + + + + + + | CALCIUM | 2021-11-14 | [facility] | 8.4 | mg/dl | (missing) | | (MG/DL) IN | 14:36 | Health | | | | | SER/PLAS | | System - | | | | | | | [place] | | | | + + + + + + + | | 2021-11-14 | [facility] | 8.8 | k/mcl | (missing) | | LEUKOCYTES(1 | 14:36 | Health | | | | | 0*3/UL) IN | | System - | | | | | BLOOD BY | | [place] | | | | | AUTOMATED | [...] | | | BLOOD BY | | [place] | | | | | AUTOMATED | [...] | | | BLOOD BY | | [place] | | | | | AUTOMATED | [...] | | | BLOOD BY | | [place] | | | | | AUTOMATED | [...] | | | VOLUME (FL) | | [place] | | | | | BY AUTOMATED [...] | | | VOLUME (FL) | | [place] | | | | | BY AUTOMATED [...] | | | URINE BY | | [place] | | | | | SCREEN | [...] | | | | (PRESENCE) | | [place] | | | | | IN URINE [...] | | | | SCREEN | | [place] | | | | | METHOD | | | | | | + + + + + + + | INFLUENZA A | 2021-11-14 | [facility] | Negative | (missing) | (missing) | | | 14:36 | Health | | | | | | | System - | | | | | | | [place] | | | | + + + + + + + | INFLUENZA B | 2021-11-14 | [facility] | Negative | (missing) | (missing) | | | 14:36 | Health | | | | | | | System - | | | | | | | [place] | | | | + + + + + + + | METHADONE | 2021-11-14 | [facility] | Negative | (missing) | (missing) | | (PRESENCE) | 14:36 | Health | | | | | IN URINE BY | | System - | | | | | SCREEN | | [place] | | | | | METHOD | | | | | | + + + + + + + | OPIATES | 2021-11-14 | [facility] | Negative | (missing) | (missing) | | (PRESENCE) | 14:36 | Health | | | | | IN URINE BY | | System - | | | | | SCREEN | | [place] | | | | | METHOD | | | | | | + + + + + + + | OXYCODONE | 2021-11-14 | [facility] | Negative | (missing) | (missing) | | (PRESENCE) | 14:36 | Health | | | | | IN URINE BY | | System - | | | | | SCREEN | | [place] | | | | | METHOD | | | | | | + + + + + + + | | 2021-11-14 | [facility] | Negative | (missing) | (missing) | | PHENCYCLIDIN | 14:36 | Health | | | | | E (PRESENCE) | | System - | | | | | IN URINE BY | | [place] | | | | | SCREEN | | | | | | | METHOD | | | | | | + + + + + + + | RSV | 2021-11-14 | [facility] | Negative | (missing) | (missing) | | | 14:36 | Health | | | | | | | System - | | | | | | | [place] | | | | + + + + + + + | SARS-COV-2 | 2021-11-14 | [facility] | Negative | (missing) | (missing) | | (COVID19) | 14:36 | Health | | | | | CEPHEID PCR | | System - | | | | | | | [place] | | | | + + + + + + + | THC | 2021-11-14 | [facility] | Negative | (missing) | (missing) | | (CANNABINOID | 14:36 | Health | | | | | ) IN URINE | | System - | | | | | BY SCREEN | | [place] | | | | | METHOD | | | | | | + + + + + + + | TRICYCLIC | 2021-11-14 | [facility] | Negative | (missing) | (missing) | | ANTIDEPRESSA | 14:36 | Health | | | | | NTS | | System - | | | | | (PRESENCE) | | [place] | | | | | IN URINE | | | | | | + + + + + + + | | 2021-11-14 | [facility] | Negative | (missing) | (missing) | | PHENCYCLIDIN | 14:36 | Health | | | | | E (PRESENCE) | | System - | | | | | IN URINE BY | | [place] | | | | | SCREEN | [...] | | | BY SCREEN | | [place] | | | | | METHOD | | | | | | + + + + + + + | OPIATES | 2021-11-14 | [facility] | Negative | (missing) | (missing) | | (PRESENCE) | 14:36 | Health | | | | | IN URINE BY | | System - | | | | | SCREEN | | [place] | | | | | METHOD | | | | | | + + + + + + + | TRICYCLIC | 2021-11-14 | [facility] | Negative | (missing) | (missing) | | ANTIDEPRESSA | 14:36 | Health | | | | | NTS | | System - | | | | | (PRESENCE) | | [place] | | | | | IN URINE | | | | | | + + + + + + + | OXYCODONE | 2021-11-14 | [facility] | Negative | (missing) | (missing) | | (PRESENCE) | 14:36 | Health | | | | | IN URINE BY | | System - | | | | | SCREEN | | [place] | | | | | METHOD | | | | | | + + + + + + + | INFLUENZA A | 2021-11-14 | [facility] | Negative | (missing) | (missing) | | | 14:36 | Health | | | | | | | System - | | | | | | | [place] | | | | + + + + + + + | INFLUENZA B | 2021-11-14 | [facility] | Negative | (missing) | (missing) | | | 14:36 | Health | | | | | | | System - | | | | | | | [place] | | | | + + + + + + + | RSV | 2021-11-14 | [facility] | Negative | (missing) | (missing) | | | 14:36 | Health | | | | | | | System - | | | | | | | [place] | | | | + + + + + + + | COCAINE | 2021-11-14 | [facility] | Negative | (missing) | (missing) | | (PRESENCE) | 14:36 | Health | | | | | IN URINE BY | | System - | | | | | SCREEN | | [place] | | | | | METHOD | | | | | | + + + + + + + | | 2021-11-14 | [facility] | Negative | (missing) | (missing) | | BARBITURATES | 14:36 | Health | | | | | PRESENCE IN | | System - | | | | | URINE BY | | [place] | | | | | SCREEN | [...] | | | | (PRESENCE) | | [place] | | | | | IN URINE [...] | | | | SCREEN | | [place] | | | | | METHOD | | | | | | + + + + + + + | SARS-COV-2 | 2021-11-14 | [facility] | Negative | (missing) | (missing) | | (COVID19) | 14:36 | Health | | | | | CEPHEID PCR | | System - | | | | | | | [place] | | | | + + + + + + + | | 2021-11-14 | [facility] | Presumptive | (missing) | (missing) | | METHAMPHETAM | 14:36 | Health | Positive | | | | INE | | System - | | | | | (PRESENCE) | | [place] | | | | | IN URINE [...] | | | | SCREEN | | [place] | | | | | METHOD | | | | | | + + + + + + + | | 2021-11-14 | [facility] | Presumptive | (missing) | (missing) | | METHAMPHETAM | 14:36 | Health | Positive | | | | INE | | System - | | | | | (PRESENCE) | | [place] | | | | | IN URINE [...] | | | | SCREEN | | [place] | | | | | METHOD | [...] ? | | | RATE) | | [place] | | | | | ML/MIN/1.73 | [...] ? | | | RATE) | | [place] | | | | | ML/MIN/1.73 | [...] | | | | SER/PLAS | | [place] | | | | + + + +--------+ + + | BILIRUBIN | 2021-12-03 | [facility] | < | mg/dl | (missing) | | TOTAL | 03:13 | Health | | | | | (MG/DL) IN | | System - | | | | | SER/PLAS | | [place] | | | | + + + +--------+ + + | NRBC/100 | 2021-12-03 | [facility] | 0.0 | % | (missing) | | WBCS BY | 03:13 | Health | | | | | AUTOMATED | | System - | | | | | COUNT | | [place] | | | | + + + +--------+ + + | NRBC/100 | 2021-12-03 | [facility] | 0.0 | % | (missing) | | WBCS BY | 03:13 | Health | | | | | AUTOMATED | | System - | | | | | COUNT | | [place] | | | | + + + +--------+ + + | | 2021-12-03 | [facility] | 0.0 | k/mcl | (missing) | | NRBC(10*3/UL | 03:13 | Health | | | | | ) IN BLOOD | | System - | | | | | BY AUTOMATED | | [place] | | | | | COUNT | | | | | | + + + +--------+ + + | | 2021-12-03 | [facility] | 0.0 | k/mcl | (missing) | | NRBC(10*3/UL | 03:13 | Health | | | | | ) IN BLOOD | | System - | | | | | BY AUTOMATED | | [place] | | | | | COUNT | | | | | | + + + +--------+ + + | IMMATURE | 2021-12-03 | [facility] | 0.07 | k/mcl | (missing) | | GRANULOCYTE | 03:13 | Health | | | | | (ABS) | | System - | | | | | | | [place] | | | | + + + +--------+ + + | IMMATURE | 2021-12-03 | [facility] | 0.07 | k/mcl | (missing) | | GRANULOCYTE | 03:13 | Health | | | | | (ABS) | | System - | | | | | | | [place] | | | | + + + +--------+ + + | BASOPHILS | 2021-12-03 | [facility] | 0.1 | k/mcl | (missing) | | (10*3/UL) IN | 03:13 | Health | | | | | BLOOD BY | | System - | | | | | AUTOMATED | | [place] | | | | | COUNT | | | | | | + + + +--------+ + + | EOSINOPHILS | 2021-12-03 | [facility] | 0.1 | k/mcl | (missing) | | (10*3/UL) | 03:13 | Health | | | | | IN BLOOD BY | | System - | | | | | AUTOMATED | | [place] | | | | | COUNT | | | | | | + + + +--------+ + + | BASOPHILS | 2021-12-03 | [facility] | 0.1 | k/mcl | (missing) | | (10*3/UL) IN | 03:13 | Health | | | | | BLOOD BY | | System - | | | | | AUTOMATED | | [place] | | | | | COUNT | | | | | | + + + +--------+ + + | EOSINOPHILS | 2021-12-03 | [facility] | 0.1 | k/mcl | (missing) | | (10*3/UL) | 03:13 | Health | | | | | IN BLOOD BY | | System - | | | | | AUTOMATED | | [place] | | | | | COUNT | | | | | | + + + +--------+ + + | IMMATURE | 2021-12-03 | [facility] | 0.7 | % | (missing) | | GRANULOCYTE | 03:13 | Health | | | | | % (AUTO) | | System - | | | | | | | [place] | | | | + + + +--------+ + + | IMMATURE | 2021-12-03 | [facility] | 0.7 | % | (missing) | | GRANULOCYTE | 03:13 | Health | | | | | % (AUTO) | | System - | | | | | | | [place] | | | | + + + +--------+ + + | CREATININE | 2021-12-03 | [facility] | 0.7 | mg/dl | (missing) | | (MG/DL) IN | 03:13 | Health | | | | | SER/PLAS | | System - | | | | | | | [place] | | | | + + + +--------+ + + | CREATININE | 2021-12-03 | [facility] | 0.7 | mg/dl | (missing) | | (MG/DL) IN | 03:13 | Health | | | | | SER/PLAS | | System - | | | | | | | [place] | | | | + + + +--------+ + + | | 2021-12-03 | [facility] | 0.8 | % | (missing) | | BASOPHILS/10 | 03:13 | Health | | | | | 0 LEUKOCYTES | | System - | | | | | IN BLOOD BY | | [place] | | | | | AUTOMATED | [...] | | IN BLOOD BY | | [place] | | | | | AUTOMATED | [...] | | | | AUTOMATED | | [place] | | | | | COUNT | | | | | | + + + +--------+ + + | MONOCYTES | 2021-12-03 | [facility] | 0.8 | k/mcl | (missing) | | (10*3/UL) IN | 03:13 | Health | | | | | BLOOD BY | | System - | | | | | AUTOMATED | | [place] | | | | | COUNT | | | | | | + + + +--------+ + + | | 2021-12-03 | [facility] | 1.3 | % | (missing) | | EOSINOPHILS/ | 03:13 | Health | | | | | 100 | | System - | | | | | LEUKOCYTES | | [place] | | | | | IN BLOOD [...] | | | | LEUKOCYTES | | [place] | | | | | IN BLOOD [...] | | | BLOOD BY | | [place] | | | | | AUTOMATED | [...] | | | BLOOD BY | | [place] | | | | | AUTOMATED | [...] | | | | SER/PLAS | | [place] | | | | + + + +--------+ + + | GLUCOSE, | 2021-12-03 | [facility] | 106 | mg/dl | (missing) | | RANDOM | 03:13 | Health | | | | | (MG/DL) IN | | System - | | | | | SER/PLAS | | [place] | | | | + + + +--------+ + + | CHLORIDE | 2021-12-03 | [facility] | 107 | mmol/l | (missing) | | (MMOL/L) IN | 03:13 | Health | | | | | SER/PLAS | | System - | | | | | | | [place] | | | | + + + +--------+ + + | CHLORIDE | 2021-12-03 | [facility] | 107 | mmol/l | (missing) | | (MMOL/L) IN | 03:13 | Health | | | | | SER/PLAS | | System - | | | | | | | [place] | | | | + + + +--------+ + + | ANION GAP | 2021-12-03 | [facility] | 11.0 | mmol/l | (missing) | | IN SER/PLAS | 03:13 | Health | | | | | | | System - | | | | | | | [place] | | | | + + + +--------+ + + | ANION GAP | 2021-12-03 | [facility] | 11.0 | mmol/l | (missing) | | IN SER/PLAS | 03:13 | Health | | | | | | | System - | | | | | | | [place] | | | | + + + +--------+ + + | ERYTHROCYTE | 2021-12-03 | [facility] | 12.7 | % | (missing) | | | 03:13 | Health | | | | | DISTRIBUTION | | System - | | | | | WIDTH | | [place] | | | | | (RATIO) BY [...] | | | | WIDTH | | [place] | | | | | (RATIO) BY [...] | | | | | | | [place] | | | | + + + +--------+ + + | HEMOGLOBIN | 2021-12-03 | [facility] | 13.7 | g/dl | (missing) | | (G/DL) IN | 03:13 | Health | | | | | BLOOD | | System - | | | | | | | [place] | | | | + + + +--------+ + + | SODIUM | 2021-12-03 | [facility] | 139 | mmol/l | (missing) | | (MMOL/L) IN | 03:13 | Health | | | | | SER/PLAS | | System - | | | | | | | [place] | | | | + + + +--------+ + + | SODIUM | 2021-12-03 | [facility] | 139 | mmol/l | (missing) | | (MMOL/L) IN | 03:13 | Health | | | | | SER/PLAS | | System - | | | | | | | [place] | | | | + + + +--------+ + + | BLOOD UREA | 2021-12-03 | [facility] | 14 | mg/dl | (missing) | | NITROGEN | 03:13 | Health | | | | | (BUN) | | System - | | | | | (MG/DL) IN | | [place] | | | | | SER/PLAS | | | | | | + + + +--------+ + + | BLOOD UREA | 2021-12-03 | [facility] | 14 | mg/dl | (missing) | | NITROGEN | 03:13 | Health | | | | | (BUN) | | System - | | | | | (MG/DL) IN | | [place] | | | | | SER/PLAS | | | | | | + + + +--------+ + + | ALANINE | 2021-12-03 | [facility] | 15 | u/l | (missing) | | AMINOTRANSFE | 03:13 | Health | | | | | RASE (SGPT) | | System - | | | | | (U/L) IN | | [place] | | | | | SER/PLAS | | | | | | + + + +--------+ + + | ALANINE | 2021-12-03 | [facility] | 15 | u/l | (missing) | | AMINOTRANSFE | 03:13 | Health | | | | | RASE (SGPT) | | System - | | | | | (U/L) IN | | [place] | | | | | SER/PLAS | | | | | | + + + +--------+ + + | CARBON | 2021-12-03 | [facility] | 21 | mmol/l | (missing) | | DIOXIDE | 03:13 | Health | | | | | (CO2), TOTAL | | System - | | | | | (MMOL/L) IN | | [place] | | | | | SER/PLAS | | | | | | + + + +--------+ + + | CARBON | 2021-12-03 | [facility] | 21 | mmol/l | (missing) | | DIOXIDE | 03:13 | Health | | | | | (CO2), TOTAL | | System - | | | | | (MMOL/L) IN | | [place] | | | | | SER/PLAS | | | | | | + + + +--------+ + + | ASPARTATE | 2021-12-03 | [facility] | 23 | u/l | (missing) | | AMINOTRANSFE | 03:13 | Health | | | | | RASE (SGOT) | | System - | | | | | (U/L) IN | | [place] | | | | | SER/PLAS | | | | | | + + + +--------+ + + | ASPARTATE | 2021-12-03 | [facility] | 23 | u/l | (missing) | | AMINOTRANSFE | 03:13 | Health | | | | | RASE (SGOT) | | System - | | | | | (U/L) IN | | [place] | | | | | SER/PLAS | | | | | | + + + +--------+ + + | POTASSIUM | 2021-12-03 | [facility] | 3.9 | mmol/l | (missing) | | (MMOL/L) IN | 03:13 | Health | | | | | SER/PLAS | | System - | | | | | | | [place] | | | | + + + +--------+ + + | POTASSIUM | 2021-12-03 | [facility] | 3.9 | mmol/l | (missing) | | (MMOL/L) IN | 03:13 | Health | | | | | SER/PLAS | | System - | | | | | | | [place] | | | | + + + +--------+ + + | ERYTHROCYTE | 2021-12-03 | [facility] | 30.0 | pg | (missing) | | MEAN | 03:13 | Health | | | | | CORPUSCULAR | | System - | | | | | HEMOGLOBIN | | [place] | | | | | (PG) BY [...] | | | | HEMOGLOBIN | | [place] | | | | | (PG) BY [...] | | | | HEMOGLOBIN | | [place] | | | | | CONCENTRATIO | [...] | | | | HEMOGLOBIN | | [place] | | | | | CONCENTRATIO | [...] | | | | AUTOMATED | | [place] | | | | | COUNT | | | | | | + + + +--------+ + + | PLATELETS | 2021-12-03 | [facility] | 363 | k/mcl | (missing) | | (10*3/UL) IN | 03:13 | Health | | | | | BLOOD | | System - | | | | | AUTOMATED | | [place] | | | | | COUNT | | | | | | + + + +--------+ + + | | 2021-12-03 | [facility] | 37.7 | % | (missing) | | LYMPHOCYTES/ | 03:13 | Health | | | | | 100 | | System - | | | | | LEUKOCYTES | | [place] | | | | | IN BLOOD [...] | | | | LEUKOCYTES | | [place] | | | | | IN BLOOD [...] | | | | | | | [place] | | | | + + + +--------+ + + | ALBUMIN | 2021-12-03 | [facility] | 4.0 | g/dl | (missing) | | (G/DL) IN | 03:13 | Health | | | | | SER/PLAS | | System - | | | | | | | [place] | | | | + + + +--------+ + + | LYMPHOCYTES | 2021-12-03 | [facility] | 4.0 | k/mcl | (missing) | | (10*3/UL) | 03:13 | Health | | | | | IN BLOOD BY | | System - | | | | | AUTOMATED | | [place] | | | | | COUNT | | | | | | + + + +--------+ + + | LYMPHOCYTES | 2021-12-03 | [facility] | 4.0 | k/mcl | (missing) | | (10*3/UL) | 03:13 | Health | | | | | IN BLOOD BY | | System - | | | | | AUTOMATED | | [place] | | | | | COUNT | | | | | | + + + +--------+ + + | | 2021-12-03 | [facility] | 4.56 | m/mcl | (missing) | | ERYTHROCYTES | 03:13 | Health | | | | | (10*6/UL) | | System - | | | | | IN BLOOD BY | | [place] | | | | | AUTOMATED | [...] | | IN BLOOD BY | | [place] | | | | | AUTOMATED | [...] | | | | AUTOMATED | | [place] | | | | | COUNT | | | | | | + + + +--------+ + + | HEMATOCRIT | 2021-12-03 | [facility] | 42.0 | % | (missing) | | (%) IN BLOOD | 03:13 | Health | | | | | BY | | System - | | | | | AUTOMATED | | [place] | | | | | COUNT | | | | | | + + + +--------+ + + | LIPASE | 2021-12-03 | [facility] | 48 | u/l | (missing) | | (U/L) IN | 03:13 | Health | | | | | SER/PLAS | | System - | | | | | | | [place] | | | | + + + +--------+ + + | LIPASE | 2021-12-03 | [facility] | 48 | u/l | (missing) | | (U/L) IN | 03:13 | Health | | | | | SER/PLAS | | System - | | | | | | | [place] | | | | + + + +--------+ + + | NEUTROPHILS | 2021-12-03 | [facility] | 5.5 | k/mcl | (missing) | | (10*3/UL) | 03:13 | Health | | | | | IN BLOOD BY | | System - | | | | | AUTOMATED | | [place] | | | | | COUNT | | | | | | + + + +--------+ + + | NEUTROPHILS | 2021-12-03 | [facility] | 5.5 | k/mcl | (missing) | | (10*3/UL) | 03:13 | Health | | | | | IN BLOOD BY | | System - | | | | | AUTOMATED | | [place] | | | | | COUNT | | | | | | + + + +--------+ + + | | 2021-12-03 | [facility] | 51.6 | % | (missing) | | NEUTROPHILS/ | 03:13 | Health | | | | | 100 | | System - | | | | | LEUKOCYTES | | [place] | | | | | IN BLOOD [...] | | | | LEUKOCYTES | | [place] | | | | | IN BLOOD [...] | | | | | | | [place] | | | | + + + +--------+ + + | PROTEIN | 2021-12-03 | [facility] | 6.2 | g/dl | (missing) | | (G/DL) IN | 03:13 | Health | | | | | SER/PLAS | | System - | | | | | | | [place] | | | | + + + +--------+ + + | ALKALINE | 2021-12-03 | [facility] | 64 | u/l | (missing) | | PHOSPHATASE | 03:13 | Health | | | | | (U/L) IN | | System - | | | | | SER/PLAS | | [place] | | | | + + + +--------+ + + | ALKALINE | 2021-12-03 | [facility] | 64 | u/l | (missing) | | PHOSPHATASE | 03:13 | Health | | | | | (U/L) IN | | System - | | | | | SER/PLAS | | [place] | | | | + + + +--------+ + + | | 2021-12-03 | [facility] | 7.9 | % | (missing) | | MONOCYTES/10 | 03:13 | Health | | | | | 0 LEUKOCYTES | | System - | | | | | IN BLOOD BY | | [place] | | | | | AUTOMATED | [...] | | IN BLOOD BY | | [place] | | | | | AUTOMATED | | | | | | | COUNT | | | | | | + + + +--------+ + + | CALCIUM | 2021-12-03 | [facility] | 8.6 | mg/dl | (missing) | | (MG/DL) IN | 03: | Health | | | | | SER/PLAS | | System - | | | | | | | [place] | | | | + + + +--------+ + + | CALCIUM | 2021-12-03 | [facility] | 8.6 | mg/dl | (missing) | | (MG/DL) IN | 03:13 | Health | | | | | SER/PLAS | | System - | | | | | | | [place] | | | | + + + +--------+ + + | PLATELET | 2021-12-03 | [facility] | 9.3 | fl | (missing) | | MEAN VOLUME | 03:13 | Health | | | | | (FL) IN | | System - | | | | | BLOOD BY | | [place] | | | | | AUTOMATED | [...] | | | BLOOD BY | | [place] | | | | | AUTOMATED | [...] | | | VOLUME (FL) | | [place] | | | | | BY AUTOMATED [...] | | | VOLUME (FL) | | [place] | | | | | BY AUTOMATED [...] | | | URINE BY | | [place] | | | | | SCREEN | [...] | | | | (PRESENCE) | | [place] | | | | | IN URINE [...] | | | | SCREEN | | [place] | | | | | METHOD | | | | | | + + + + + + + | METHADONE | 2021-12-03 | [facility] | Negative | (missing) | (missing) | | (PRESENCE) | 22:47 | Health | | | | | IN URINE BY | | System - | | | | | SCREEN | | [place] | | | | | METHOD | | | | | | + + + + + + + | OPIATES | 2021-12-03 | [facility] | Negative | (missing) | (missing) | | (PRESENCE) | 22:47 | Health | | | | | IN URINE BY | | System - | | | | | SCREEN | | [place] | | | | | METHOD | | | | | | + + + + + + + | OXYCODONE | 2021-12-03 | [facility] | Negative | (missing) | (missing) | | (PRESENCE) | 22:47 | Health | | | | | IN URINE BY | | System - | | | | | SCREEN | | [place] | | | | | METHOD | | | | | | + + + + + + + | | 2021-12-03 | [facility] | Negative | (missing) | (missing) | | PHENCYCLIDIN | 22:47 | Health | | | | | E (PRESENCE) | | System - | | | | | IN URINE BY | | [place] | | | | | SCREEN | [...] | | | BY SCREEN | | [place] | | | | | METHOD | | | | | | + + + + + + + | TRICYCLIC | 2021-12-03 | [facility] | Negative | (missing) | (missing) | | ANTIDEPRESSA | 22:47 | Health | | | | | NTS | | System - | | | | | (PRESENCE) | | [place] | | | | | IN URINE | | | | | | + + + + + + + | | 2021-12-03 | [facility] | Negative | (missing) | (missing) | | PHENCYCLIDIN | 22:47 | Health | | | | | E (PRESENCE) | | System - | | | | | IN URINE BY | | [place] | | | | | SCREEN | [...] | | | BY SCREEN | | [place] | | | | | METHOD | | | | | | + + + + + + + | OPIATES | 2021-12-03 | [facility] | Negative | (missing) | (missing) | | (PRESENCE) | 22:47 | Health | | | | | IN URINE BY | | System - | | | | | SCREEN | | [place] | | | | | METHOD | | | | | | + + + + + + + | TRICYCLIC | 2021-12-03 | [facility] | Negative | (missing) | (missing) | | ANTIDEPRESSA | 22:47 | Health | | | | | NTS | | System - | | | | | ([facility]ENCE) | | [place] | | | | | IN URINE | | | | | | + + + + + + + | OXYCODONE | 2021-12-03 | [facility] | Negative | (missing) | (missing) | | (PRESENCE) | 22:47 | Health | | | | | IN URINE BY | | System - | | | | | SCREEN | | [place] | | | | | METHOD | | | | | | + + + + + + + | COCAINE | 2021-12-03 | [facility] | Negative | (missing) | (missing) | | (PRESENCE) | 22:47 | Health | | | | | IN URINE BY | | System - | | | | | SCREEN | | [place] | | | | | METHOD | | | | | | + + + + + + + | | 2021-12-03 | [facility] | Negative | (missing) | (missing) | | BARBITURATES | 22:47 | Health | | | | | PRESENCE IN | | System - | | | | | URINE BY | | [place] | | | | | SCREEN | [...] | | | | (PRESENCE) | | [facility] | | | | | IN URINE [...] | | | | SCREEN | | [facility] | | | | | METHOD | | | | | | + + + + + + + | | 2021-12-03 | [facility] | Presumptive | (missing) | (missing) | | [place] | 22:47 | Health | Positive | | | | INE | | System - | | | | | (PRESENCE) | | [place] | | | | | IN URINE [...] | | | | SCREEN | | [facility] | | | | | METHOD | | | | | | + + + + + + + | | 2021-12-03 | [facility] | Presumptive | (missing) | (missing) | | [place] | 22:47 | Health | Positive | | | | INE | | System - | | | | | (PRESENCE) | | [place] | | | | | IN URINE [...] | | | | SCREEN | | [facility] | | | | | METHOD | [...] | | | | | | | [place] | | | | + + + + + + + | WBC | 2021-12-03 | [facility] | < | /hpf | (missing) | | (LEUKOCYTE) | 23:19 | Health | | | | | (#/HPF) IN | | System - | | | | | URINE | | [place] | | | | | SEDIMENT | | | | | | + + + + + + + | WBC | 2021-12-03 | [facility] | < | /hpf | (missing) | | (LEUKOCYTE) | 23:19 | Health | | | | | (#/HPF) IN | | System - | | | | | URINE | | [place] | | | | | SEDIMENT | | | | | | + + + + + + + | RBC (#/HPF) | 2021-12-03 | [facility] | < | /hpf | (missing) | | IN URINE | 23:19 | Health | | | | | SEDIMENT | | System - | | | | | | | [place] | | | | + + + + + + + | HEMOGLOBIN | 2021-12-03 | [facility] | 1 | (missing) | (missing) | | PRESENCE IN | 23:19 | Health | | | | | URINE | | System - | | | | | | | [place] | | | | + + + + + + + | HEMOGLOBIN | 2021-12-03 | [facility] | 1 | (missing) | (missing) | | PRESENCE IN | 23:19 | Health | | | | | URINE | | System - | | | | | | | [place] | | | | + + + + + + + | SPECIFIC | 2021-12-03 | [facility] | 1.035 | (missing) | (missing) | | GRAVITY OF | 23:19 | Health | | | | | URINE BY | | System - | | | | | AUTOMATED | | [place] | | | | | TEST STRIP | | | | | | + + + + + + + | SPECIFIC | 2021-12-03 | [facility] | 1.035 | (missing) | (missing) | | GRAVITY OF | 23:19 | Health | | | | | URINE BY | | System - | | | | | AUTOMATED | | [place] | | | | | TEST STRIP | | | | | | + + + + + + + | SQUAMOUS | 2021-12-03 | [facility] | 3 | /hpf | (missing) | | EPITHELIAL | 23:19 | Health | | | | | CELLS | | System - | | | | | (#/HPF) IN | | [place] | | | | | URINE | [...] | | | (#/HPF) IN | | [facility] | | | | | URINE | [...] | | | (#/HPF) IN | | [facility] | | | | | URINE | | | | | | + + + + + + + | CALCIUM | 2021-12-03 | [facility] | 4 | /hpf | (missing) | | OXALATE | 23:19 | Health | | | | | CRYSTALS | | System - | | | | | (#/HPF) IN | | [place] | | | | | URINE | | | | | | + + + + + + + | PH OF URINE | 2021-12-03 | [facility] | 5.5 | (missing) | (missing) | | | 23:19 | Health | | | | | | | System - | | | | | | | [place] | | | | + + + + + + + | PH OF URINE | 2021-12-03 | [facility] | 5.5 | (missing) | (missing) | | | 23:19 | Health | | | | | | | System - | | | | | | | [place] | | | | + + + + + + + | CLARITY OF | 2021-12-03 | [facility] | [place] | (missing) | (missing) | | URINE | 23:19 | Health | | | | | | | System - | | | | | | | [place] | | | | + + + + + + + | CLARITY OF | 2021-12-03 | [facility] | [place] | (missing) | (missing) | | URINE | 23:19 | Health | | | | | | | System - | | | | | | | [place] | | | | + + + + + + + | BILIRUBIN, | 2021-12-03 | [facility] | Negative | (missing) | (missing) | | TOTAL | 23:19 | Health | | | | | PRESENCE IN | | System - | | | | | URINE | | [place] | | | | + + + + + + + | GLUCOSE IN | 2021-12-03 | [facility] | Negative | (missing) | (missing) | | URINE | 23:19 | Health | | | | | | | System - | | | | | | | [place] | | | | + + + + + + + | INFLUENZA A | 2021-12-03 | [facility] | Negative | (missing) | (missing) | | | 23:19 | Health | | | | | | | System - | | | | | | | [place] | | | | + + + + + + + | INFLUENZA B | 2021-12-03 | [facility] | Negative | (missing) | (missing) | | | 23:19 | Health | | | | | | | System - | | | | | | | [place] | | | | + + + + + + + | LEUKOCYTE | 2021-12-03 | [facility] | Negative | (missing) | (missing) | | ESTERASE | 23:19 | Health | | | | | PRESENCE IN | | System - | | | | | URINE BY | | [place] | | | | | TEST STRIP | | | | | | + + + + + + + | NITRITE | 2021-12-03 | [facility] | Negative | (missing) | (missing) | | PRESENCE IN | 23:19 | Health | | | | | URINE | | System - | | | | | | | [place] | | | | + + + + + + + | RSV | 2021-12-03 | [facility] | Negative | (missing) | (missing) | | | 23:19 | Health | | | | | | | System - | | | | | | | [place] | | | | + + + + + + + | SARS-COV-2 | 2021-12-03 | [facility] | Negative | (missing) | (missing) | | (COVID19) | 23:19 | Health | | | | | CEPHEID PCR | | System - | | | | | | | [place] | | | | + + + + + + + | BILIRUBIN, | 2021-12-03 | [facility] | Negative | (missing) | (missing) | | TOTAL | 23:19 | Health | | | | | PRESENCE IN | | System - | | | | | URINE | | [place] | | | | + + + + + + + | GLUCOSE IN | 2021-12-03 | [facility] | Negative | (missing) | (missing) | | URINE | 23:19 | Health | | | | | | | System - | | | | | | | [place] | | | | + + + + + + + | INFLUENZA A | 2021-12-03 | [facility] | Negative | (missing) | (missing) | | | 23:19 | Health | | | | | | | System - | | | | | | | [place] | | | | + + + + + + + | INFLUENZA B | 2021-12-03 | [facility] | Negative | (missing) | (missing) | | | 23:19 | Health | | | | | | | System - | | | | | | | [place] | | | | + + + + + + + | RSV | 2021-12-03 | [facility] | Negative | (missing) | (missing) | | | 23:19 | Health | | | | | | | System - | | | | | | | [place] | | | | + + + + + + + | NITRITE | 2021-12-03 | [facility] | Negative | (missing) | (missing) | | PRESENCE IN | 23:19 | Health | | | | | URINE | | System - | | | | | | | [place] | | | | + + + + + + + | LEUKOCYTE | 2021-12-03 | [facility] | Negative | (missing) | (missing) | | ESTERASE | 23:19 | Health | | | | | PRESENCE IN | | System - | | | | | URINE BY | | [place] | | | | | TEST STRIP | | | | | | + + + + + + + | SARS-COV-2 | 2021-12-03 | [facility] | Negative | (missing) | (missing) | | (COVID19) | 23:19 | Health | | | | | CEPHEID PCR | | System - | | | | | | | [place] | | | | + + + + + + + | | 2021-12-03 | [facility] | Normal | mg/dl | (missing) | | UROBILINOGEN | 23:19 | Health | | | | | (MG/DL) IN | | System - | | | | | URINE BY | | [place] | | | | | TEST STRIP | | | | | | + + + + + + + | | 2021-12-03 | [facility] | Normal | mg/dl | (missing) | | UROBILINOGEN | 23:19 | Health | | | | | (MG/DL) IN | | System - | | | | | URINE BY | | [place] | | | | | TEST STRIP | | | | | | + + + + + + + | KETONES IN | 2021-12-03 | [facility] | Trace | (missing) | (missing) | | URINE | 23:19 | Health | | | | | | | System - | | | | | | | [place] | | | | + + + + + + + | MUCUS | 2021-12-03 | [facility] | Trace | (missing) | (missing) | | (#/HPF) IN | 23:19 | Health | | | | | URINE | | System - | | | | | SEDIMENT | | [place] | | | | + + + + + + + | PROTEIN IN | 2021-12-03 | [facility] | Trace | (missing) | (missing) | | URINE BY | 23:19 | Health | | | | | TEST STRIP | | System - | | | | | | | [place] | | | | + + + + + + + | MUCUS | 2021-12-03 | [facility] | Trace | (missing) | (missing) | | (#/HPF) IN | 23:19 | Health | | | | | URINE | | System - | | | | | SEDIMENT | | [place] | | | | + + + + + + + | KETONES IN | 2021-12-03 | [facility] | Trace | (missing) | (missing) | | URINE | 23:19 | Health | | | | | | | System - | | | | | | | [place] | | | | + + + + + + + | PROTEIN IN | 2021-12-03 | [facility] | Trace | (missing) | (missing) | | URINE BY | 23:19 | Health | | | | | TEST STRIP | | System - | | | | | | | [place] | | | | + + + + + + + | BACTERIA | 2021-12-03 | [facility] | Trace | /hpf | (missing) | | (#/HPF) IN | 23:19 | Health | | | | | URINE | | System - | | | | | | | [place] | | | | + + + + + + + | BACTERIA | 2021-12-03 | [facility] | Trace | /hpf | (missing) | | (#/HPF) IN | 23:19 | Health | | | | | URINE | | System - | | | | | | | [place] | | | | + + + + + + + | COLOR OF | 2021-12-03 | [facility] | Yellow | (missing) | (missing) | | URINE | 23:19 | Health | | | | | | | System - | | | | | | | [place] | | | | + + + + + + + | COLOR OF | 2021-12-03 | [facility] | Yellow | (missing) | (missing) | | URINE | 23:19 | Health | | | | | | | System - | | | | | | | [place] | | | | + + + [...] ? | | | RATE) | | [place] | | | | | ML/MIN/1.73 | | | | | | | SQ M. | | | | | | + + + + + + + | EGFR | 2021-12-05 | [facility] | > | | (missing) | | (GLOMERULAR | :29 | Health | | ml/min/1.73m | | | FILTRATION | | System - | | ? | | | RATE) | | [place] | | | | | ML/MIN/1.73 | [...] | | | | | | | [place] | | | | + + + + + + + | ALCOHOL | 2021-12-05 | [facility] | < | g/dl | (missing) | | (G/DL) IN | 29 | Health | | | | | SER/PLAS | | System - | | | | | | | [place] | | | | + + + + + + + | | 2021-12-05 | [facility] | < | mcg/ml | (missing) | | ACETAMINOPHE | 22:29 | Health | | | | | N (UG/ML) IN | | System - | | | | | SER/PLAS | | [place] | | | | + + + + + + + | | 2021-12-05 | [facility] | < | mcg/ml | (missing) | | ACETAMINOPHE | 22:29 | Health | | | | | N (UG/ML) IN | | System - | | | | | SER/PLAS | | [place] | | | | + + + + + + + | SALICYLATE | 2021-12-05 | [facility] | < | mg/dl | (missing) | | (MG/DL) IN | 22:29 | Health | | | | | SER/PLAS | | System - | | | | | | | [place] | | | | + + + + + + + | SALICYLATE | 2021-12-05 | [facility] | < | mg/dl | (missing) | | (MG/DL) IN | :29 | Health | | | | | SER/PLAS | | System - | | | | | | | [place] | | | | + + + + + + + | NRBC/100 | 2021-12-05 | [facility] | 0.0 | % | (missing) | | WBCS BY | : | Health | | | | | AUTOMATED | | System - | | | | | COUNT | | [place] | | | | + + + + + + + | NRBC/100 | 2021-12-05 | [facility] | 0.0 | % | (missing) | | WBCS BY | :29 | Health | | | | | AUTOMATED | | System - | | | | | COUNT | | [place] | | | | + + + + + + + | BASOPHILS | 2021-12-05 | [facility] | 0.0 | k/mcl | (missing) | | (10*3/UL) IN | 22:29 | Health | | | | | BLOOD BY | | System - | | | | | AUTOMATED | | [place] | | | | | COUNT | | | | | | + + + + + + + | | 2021-12-05 | [facility] | 0.0 | k/mcl | (missing) | | NRBC(10*3/UL | 22:29 | Health | | | | | ) IN BLOOD | | System - | | | | | BY AUTOMATED | | [place] | | | | | COUNT | | | | | | + + + + + + + | BASOPHILS | 2021-12-05 | [facility] | 0.0 | k/mcl | (missing) | | (10*3/UL) IN | 22:29 | Health | | | | | BLOOD BY | | System - | | | | | AUTOMATED | | [place] | | | | | COUNT | | | | | | + + + + + + + | | 2021-12-05 | [facility] | 0.0 | k/mcl | (missing) | | NRBC(10*3/UL | 22:29 | Health | | | | | ) IN BLOOD | | System - | | | | | BY AUTOMATED | | [place] | | | | | COUNT | | | | | | + + + + + + + | IMMATURE | 2021-12-05 | [facility] | 0.05 | k/mcl | (missing) | | GRANULOCYTE | 22:29 | Health | | | | | (ABS) | | System - | | | | | | | [place] | | | | + + + + + + + | IMMATURE | 2021-12-05 | [facility] | 0.05 | k/mcl | (missing) | | GRANULOCYTE | 22:29 | Health | | | | | (ABS) | | System - | | | | | | | [place] | | | | + + + + + + + | EOSINOPHILS | 2021-12-05 | [facility] | 0.2 | k/mcl | (missing) | | (10*3/UL) | 22:29 | Health | | | | | IN BLOOD BY | | System - | | | | | AUTOMATED | | [place] | | | | | COUNT | | | | | | + + + + + + + | EOSINOPHILS | 2021-12-05 | [facility] | 0.2 | k/mcl | (missing) | | (10*3/UL) | 22:29 | Health | | | | | IN BLOOD BY | | System - | | | | | AUTOMATED | | [place] | | | | | COUNT | | | | | | + + + + + + + | | 2021-12-05 | [facility] | 0.4 | % | (missing) | | BASOPHILS/10 | 22:29 | Health | | | | | 0 LEUKOCYTES | | System - | | | | | IN BLOOD BY | | [place] | | | | | AUTOMATED | [...] | | IN BLOOD BY | | [place] | | | | | AUTOMATED | [...] | | | | SER/PLAS | | [place] | | | | + + + + + + + | BILIRUBIN | 2021-12-05 | [facility] | 0.4 | mg/dl | (missing) | | TOTAL | 22:29 | Health | | | | | (MG/DL) IN | | System - | | | | | SER/PLAS | | [place] | | | | + + + + + + + | IMMATURE | 2021-12-05 | [facility] | 0.5 | % | (missing) | | GRANULOCYTE | 22:29 | Health | | | | | % (AUTO) | | System - | | | | | | | [place] | | | | + + + + + + + | IMMATURE | 2021-12-05 | [facility] | 0.5 | % | (missing) | | GRANULOCYTE | 22:29 | Health | | | | | % (AUTO) | | System - | | | | | | | [place] | | | | + + + + + + + | MONOCYTES | 2021-12-05 | [facility] | 0.6 | k/mcl | (missing) | | (10*3/UL) IN | 29 | Health | | | | | BLOOD BY | | System - | | | | | AUTOMATED | | [place] | | | | | COUNT | | | | | | + + + + + + + | MONOCYTES | 2021-12-05 | [facility] | 0.6 | k/mcl | (missing) | | (10*3/UL) IN | | Health | | | | | BLOOD BY | | System - | | | | | AUTOMATED | | [place] | | | | | COUNT | | | | | | + + + + + + + | CREATININE | 2021-12-05 | [facility] | 0.8 | mg/dl | (missing) | | (MG/DL) IN | | Health | | | | | SER/PLAS | | System - | | | | | | | [place] | | | | + + + + + + + | CREATININE | 2021-12-05 | [facility] | 0.8 | mg/dl | (missing) | | (MG/DL) IN | 22:29 | Health | | | | | SER/PLAS | | System - | | | | | | | [place] | | | | + + + + + + + | | 2021-12-05 | [facility] | 1.6 | % | (missing) | | EOSINOPHILS/ | 22:29 | Health | | | | | 100 | | System - | | | | | LEUKOCYTES | | [place] | | | | | IN BLOOD [...] | | | | LEUKOCYTES | | [place] | | | | | IN BLOOD [...] | | | BLOOD BY | | [place] | | | | | AUTOMATED | [...] | | | BLOOD BY | | [place] | | | | | AUTOMATED | [...] | | | | | | | [place] | | | | + + + + + + + | CHLORIDE | 2021-12-05 | [facility] | 103 | mmol/l | (missing) | | (MMOL/L) IN | 22:29 | Health | | | | | SER/PLAS | | System - | | | | | | | [place] | | | | + + + + + + + | ERYTHROCYTE | 2021-12-05 | [facility] | 11.9 | % | (missing) | | | 22:29 | Health | | | | | DISTRIBUTION | | System - | | | | | WIDTH | | [place] | | | | | (RATIO) BY [...] | | | | WIDTH | | [place] | | | | | (RATIO) BY [...] | | | | SER/PLAS | | [place] | | | | + + + + + + + | GLUCOSE, | 2021-12-05 | [facility] | 119 | mg/dl | (missing) | | RANDOM | 22:29 | Health | | | | | (MG/DL) IN | | System - | | | | | SER/PLAS | | [place] | | | | + + + + + + + | SODIUM | 2021-12-05 | [facility] | 137 | mmol/l | (missing) | | (MMOL/L) IN | 22:29 | Health | | | | | SER/PLAS | | System - | | | | | | | [place] | | | | + + + + + + + | SODIUM | 2021-12-05 | [facility] | 137 | mmol/l | (missing) | | (MMOL/L) IN | 22:29 | Health | | | | | SER/PLAS | | System - | | | | | | | [place] | | | | + + + + + + + | ALANINE | 2021-12-05 | [facility] | 15 | u/l | (missing) | | AMINOTRANSFE | 22:29 | Health | | | | | RASE (SGPT) | | System - | | | | | (U/L) IN | | [place] | | | | | SER/PLAS | | | | | | + + + + + + + | ALANINE | 2021-12-05 | [facility] | 15 | u/l | (missing) | | AMINOTRANSFE | 22:29 | Health | | | | | RASE (SGPT) | | System - | | | | | (U/L) IN | | [place] | | | | | SER/PLAS | | | | | | + + + + + + + | HEMOGLOBIN | 2021-12-05 | [facility] | 15.2 | g/dl | (missing) | | (G/DL) IN | 22:29 | Health | | | | | BLOOD | | System - | | | | | | | [place] | | | | + + + + + + + | HEMOGLOBIN | 2021-12-05 | [facility] | 15.2 | g/dl | (missing) | | (G/DL) IN | 22:29 | Health | | | | | BLOOD | | System - | | | | | | | [place] | | | | + + + + + + + | ANION GAP | 2021-12-05 | [facility] | 16.0 | mmol/l | (missing) | | IN SER/PLAS | 22:29 | Health | | | | | | | System - | | | | | | | [place] | | | | + + + + + + + | ANION GAP | 2021-12-05 | [facility] | 16.0 | mmol/l | (missing) | | IN SER/PLAS | 22:29 | Health | | | | | | | System - | | | | | | | [place] | | | | + + + + + + + | CARBON | 2021-12-05 | [facility] | 18 | mmol/l | (missing) | | DIOXIDE | 22:29 | Health | | | | | (CO2), TOTAL | | System - | | | | | (MMOL/L) IN | | [place] | | | | | SER/PLAS | | | | | | + + + + + + + | CARBON | 2021-12-05 | [facility] | 18 | mmol/l | (missing) | | DIOXIDE | 22:29 | Health | | | | | (CO2), TOTAL | | System - | | | | | (MMOL/L) IN | | [place] | | | | | SER/PLAS | | | | | | + + + + + + + | LYMPHOCYTES | 2021-12-05 | [facility] | 2.7 | k/mcl | (missing) | | (10*3/UL) | 22:29 | Health | | | | | IN BLOOD BY | | System - | | | | | AUTOMATED | | [place] | | | | | COUNT | | | | | | + + + + + + + | LYMPHOCYTES | 2021-12-05 | [facility] | 2.7 | k/mcl | (missing) | | (10*3/UL) | 22:29 | Health | | | | | IN BLOOD BY | | System - | | | | | AUTOMATED | | [place] | | | | | COUNT | | | | | | + + + + + + + | ASPARTATE | 2021-12-05 | [facility] | 22 | u/l | (missing) | | AMINOTRANSFE | 22:29 | Health | | | | | RASE (SGOT) | | System - | | | | | (U/L) IN | | [place] | | | | | SER/PLAS | | | | | | + + + + + + + | ASPARTATE | 2021-12-05 | [facility] | 22 | u/l | (missing) | | AMINOTRANSFE | 22:29 | Health | | | | | RASE (SGOT) | | System - | | | | | (U/L) IN | | [place] | | | | | SER/PLAS | | | | | | + + + + + + + | | 2021-12-05 | [facility] | 26.6 | % | (missing) | | LYMPHOCYTES/ | 22:29 | Health | | | | | 100 | | System - | | | | | LEUKOCYTES | | [place] | | | | | IN BLOOD [...] | | | | LEUKOCYTES | | [place] | | | | | IN BLOOD [...] | | | | | | | [place] | | | | + + + + + + + | POTASSIUM | 2021-12-05 | [facility] | 3.3 | mmol/l | (missing) | | (MMOL/L) IN | 22:29 | Health | | | | | SER/PLAS | | System - | | | | | | | [place] | | | | + + + + + + + | ERYTHROCYTE | 2021-12-05 | [facility] | 30.6 | pg | (missing) | | MEAN | 22:29 | Health | | | | | CORPUSCULAR | | System - | | | | | HEMOGLOBIN | | [place] | | | | | (PG) BY [...] | | | | HEMOGLOBIN | | [place] | | | | | (PG) BY [...] | | | | HEMOGLOBIN | | [place] | | | | | CONCENTRATIO | [...] | | | | HEMOGLOBIN | | [place] | | | | | CONCENTRATIO | [...] | | | | AUTOMATED | | [place] | | | | | COUNT | | | | | | + + + + + + + | PLATELETS | 2021-12-05 | [facility] | 356 | k/mcl | (missing) | | (10*3/UL) IN | 22:29 | Health | | | | | BLOOD | | System - | | | | | AUTOMATED | | [place] | | | | | COUNT | | | | | | + + + + + + + | ALBUMIN | 2021-12-05 | [facility] | 4.4 | g/dl | (missing) | | (G/DL) IN | 22:29 | Health | | | | | SER/PLAS | | System - | | | | | | | [place] | | | | + + + + + + + | ALBUMIN | 2021-12-05 | [facility] | 4.4 | g/dl | (missing) | | (G/DL) IN | 22:29 | Health | | | | | SER/PLAS | | System - | | | | | | | [place] | | | | + + + + + + + | | 2021-12-05 | [facility] | 4.96 | m/mcl | (missing) | | ERYTHROCYTES | 22:29 | Health | | | | | (10*6/UL) | | System - | | | | | IN BLOOD BY | | [place] | | | | | AUTOMATED | [...] | | IN BLOOD BY | | [place] | | | | | AUTOMATED | [...] | | | | AUTOMATED | | [place] | | | | | COUNT | | | | | | + + + + + + + | HEMATOCRIT | 2021-12-05 | [facility] | 43.8 | % | (missing) | | (%) IN BLOOD | 22:29 | Health | | | | | BY | | System - | | | | | AUTOMATED | | [place] | | | | | COUNT | | | | | | + + + + + + + | | 2021-12-05 | [facility] | 5.6 | % | (missing) | | MONOCYTES/10 | 22:29 | Health | | | | | 0 LEUKOCYTES | | System - | | | | | IN BLOOD BY | | [place] | | | | | AUTOMATED | | | | | | | COUNT | | | | | | + + + + + + + | | 2021-12-05 | [facility] | 5.6 | % | (missing) | | MONOCYTES/10 | :29 | Health | | | | | 0 LEUKOCYTES | | System - | | | | | IN BLOOD BY | | [place] | | | | | AUTOMATED | [...] | | | | AUTOMATED | | [place] | | | | | COUNT | | | | | | + + + + + + + | NEUTROPHILS | 2021-12-05 | [facility] | 6.7 | k/mcl | (missing) | | (10*3/UL) | 22:29 | Health | | | | | IN BLOOD BY | | System - | | | | | AUTOMATED | | [place] | | | | | COUNT | | | | | | + + + + + + + | | 2021-12-05 | [facility] | 65.3 | % | (missing) | | NEUTROPHILS/ | 22:29 | Health | | | | | 100 | | System - | | | | | LEUKOCYTES | | [place] | | | | | IN BLOOD [...] | | | | LEUKOCYTES | | [place] | | | | | IN BLOOD [...] | | | | SER/PLAS | | [place] | | | | + + + + + + + | ALKALINE | 2021-12-05 | [facility] | 69 | u/l | (missing) | | PHOSPHATASE | 22:29 | Health | | | | | (U/L) IN | | System - | | | | | SER/PLAS | | [place] | | | | + + + + + + + | PROTEIN | 2021-12-05 | [facility] | 7.1 | g/dl | (missing) | | (G/DL) IN | 22:29 | Health | | | | | SER/PLAS | | System - | | | | | | | [place] | | | | + + + + + + + | PROTEIN | 2021-12-05 | [facility] | 7.1 | g/dl | (missing) | | (G/DL) IN | 22:29 | Health | | | | | SER/PLAS | | System - | | | | | | | [place] | | | | + + + + + + + | CALCIUM | 2021-12-05 | [facility] | 8.7 | mg/dl | (missing) | | (MG/DL) IN | 22:29 | Health | | | | | SER/PLAS | | System - | | | | | | | [place] | | | | + + + + + + + | CALCIUM | 2021-12-05 | [facility] | 8.7 | mg/dl | (missing) | | (MG/DL) IN | 22:29 | Health | | | | | SER/PLAS | | System - | | | | | | | [place] | | | | + + + + + + + | ERYTHROCYTE | 2021-12-05 | [facility] | 88.3 | fl | (missing) | | MEAN | 22:29 | Health | | | | | CORPUSCULAR | | System - | | | | | VOLUME (FL) | | [place] | | | | | BY AUTOMATED [...] | | | VOLUME (FL) | | [place] | | | | | BY AUTOMATED [...] | | | (MG/DL) IN | | [place] | | | | | SER/PLAS | | | | | | + + + + + + + | BLOOD UREA | 2021-12-05 | [facility] | 9 | mg/dl | (missing) | | NITROGEN | 22:29 | Health | | | | | (BUN) | | System - | | | | | (MG/DL) IN | | [place] | | | | | SER/PLAS | | | | | | + + + + + + + | PLATELET | 2021-12-05 | [facility] | 9.3 | fl | (missing) | | MEAN VOLUME | 22:29 | Health | | | | | (FL) IN | | System - | | | | | BLOOD BY | | [place] | | | | | AUTOMATED | | | | | | | COUNT | | | | | | + + + + + + + | PLATELET | 2021-12-05 | [facility] | 9.3 | fl | (missing) | | MEAN VOLUME | 22:29 | Health | | | | | (FL) IN | | System - | | | | | BLOOD BY | | [place] | | | | | AUTOMATED | [...] | | | | SER/PLAS | | [place] | | | | + + + + + + + | [facility] QUAL | 2021-12-05 | [facility] | Negative | (missing) | (missing) | | (CHORIOGONAD | 22:29 | Health | | | | | OTROPIN) IN | | System - | | | | | SER/PLAS | | [place] | | | | + + + [...] ? | | | RATE) | | [place] | | | | | ML/MIN/1.73 | [...] ? | | | RATE) | | [place] | | | | | ML/MIN/1.73 | [...] | | | | | | | [place] | | | | + + + + + + + | ALCOHOL | 2021-12-16 | [facility] | < | g/dl | (missing) | | (G/DL) IN | 00:45 | Health | | | | | SER/PLAS | | System - | | | | | | | [place] | | | | + + + + + + + | SALICYLATE | 2021-12-16 | [facility] | < | mg/dl | (missing) | | (MG/DL) IN | 00:45 | Health | | | | | SER/PLAS | | System - | | | | | | | [place] | | | | + + + + + + + | SALICYLATE | 2021-12-16 | [facility] | < | mg/dl | (missing) | | (MG/DL) IN | 00:45 | Health | | | | | SER/PLAS | | System - | | | | | | | [place] | | | | + + + + + + + | TROPONIN T | 2021-12-16 | [facility] | < | ng/ml | (missing) | | CARDIAC | 00:45 | Health | | | | | (NG/ML) IN | | System - | | | | | SER/PLAS | | [place] | | | | + + + + + + + | TROPONIN T | 2021-12-16 | [facility] | < | ng/ml | (missing) | | CARDIAC | 00:45 | Health | | | | | (NG/ML) IN | | System - | | | | | SER/PLAS | | [place] | | | | + + + + + + + | NRBC/100 | 2021-12-16 | [facility] | 0.0 | % | (missing) | | WBCS BY | 00:45 | Health | | | | | AUTOMATED | | System - | | | | | COUNT | | [place] | | | | + + + + + + + | NRBC/100 | 2021-12-16 | [facility] | 0.0 | % | (missing) | | WBCS BY | 00:45 | Health | | | | | AUTOMATED | | System - | | | | | COUNT | | [place] | | | | + + + + + + + | | 2021-12-16 | [facility] | 0.0 | k/mcl | (missing) | | NRBC(10*3/UL | 00:45 | Health | | | | | ) IN BLOOD | | System - | | | | | BY AUTOMATED | | [place] | | | | | COUNT | | | | | | + + + + + + + | | 2021-12-16 | [facility] | 0.0 | k/mcl | (missing) | | NRBC(10*3/UL | 00:45 | Health | | | | | ) IN BLOOD | | System - | | | | | BY AUTOMATED | | [place] | | | | | COUNT | | | | | | + + + + + + + | IMMATURE | 2021-12-16 | [facility] | 0.03 | k/mcl | (missing) | | GRANULOCYTE | 00:45 | Health | | | | | (ABS) | | System - | | | | | | | [place] | | | | + + + + + + + | IMMATURE | 2021-12-16 | [facility] | 0.03 | k/mcl | (missing) | | GRANULOCYTE | 00:45 | Health | | | | | (ABS) | | System - | | | | | | | [place] | | | | + + + + + + + | BASOPHILS | 2021-12-16 | [facility] | 0.1 | k/mcl | (missing) | | (10*3/UL) IN | 00:45 | Health | | | | | BLOOD BY | | System - | | | | | AUTOMATED | | [place] | | | | | COUNT | | | | | | + + + + + + + | EOSINOPHILS | 2021-12-16 | [facility] | 0.1 | k/mcl | (missing) | | (10*3/UL) | 00:45 | Health | | | | | IN BLOOD BY | | System - | | | | | AUTOMATED | | [place] | | | | | COUNT | | | | | | + + + + + + + | BASOPHILS | 2021-12-16 | [facility] | 0.1 | k/mcl | (missing) | | (10*3/UL) IN | 00:45 | Health | | | | | BLOOD BY | | System - | | | | | AUTOMATED | | [place] | | | | | COUNT | | | | | | + + + + + + + | EOSINOPHILS | 2021-12-16 | [facility] | 0.1 | k/mcl | (missing) | | (10*3/UL) | 00:45 | Health | | | | | IN BLOOD BY | | System - | | | | | AUTOMATED | | [place] | | | | | COUNT | | | | | | + + + + + + + | BILIRUBIN | 2021-12-16 | [facility] | 0.2 | mg/dl | (missing) | | TOTAL | 00:45 | Health | | | | | (MG/DL) IN | | System - | | | | | SER/PLAS | | [place] | | | | + + + + + + + | BILIRUBIN | 2021-12-16 | [facility] | 0.2 | mg/dl | (missing) | | TOTAL | 00:45 | Health | | | | | (MG/DL) IN | | System - | | | | | SER/PLAS | | [place] | | | | + + + + + + + | IMMATURE | 2021-12-16 | [facility] | 0.3 | % | (missing) | | GRANULOCYTE | 00:45 | Health | | | | | % (AUTO) | | System - | | | | | | | [place] | | | | + + + + + + + | IMMATURE | 2021-12-16 | [facility] | 0.3 | % | (missing) | | GRANULOCYTE | 00:45 | Health | | | | | % (AUTO) | | System - | | | | | | | [place] | | | | + + + + + + + | MONOCYTES | 2021-12-16 | [facility] | 0.5 | k/mcl | (missing) | | (10*3/UL) IN | 00:45 | Health | | | | | BLOOD BY | | System - | | | | | AUTOMATED | | [place] | | | | | COUNT | | | | | | + + + + + + + | MONOCYTES | 2021-12-16 | [facility] | 0.5 | k/mcl | (missing) | | (10*3/UL) IN | 00:45 | Health | | | | | BLOOD BY | | System - | | | | | AUTOMATED | | [place] | | | | | COUNT | | | | | | + + + + + + + | | 2021-12-16 | [facility] | 0.6 | % | (missing) | | BASOPHILS/10 | 00:45 | Health | | | | | 0 LEUKOCYTES | | System - | | | | | IN BLOOD BY | | [place] | | | | | AUTOMATED | [...] | | IN BLOOD BY | | [place] | | | | | AUTOMATED | [...] | | | | LEUKOCYTES | | [place] | | | | | IN BLOOD [...] | | | | LEUKOCYTES | | [place] | | | | | IN BLOOD [...] | | | | | | | [place] | | | | + + + + + + + | CREATININE | 2021-12-16 | [facility] | 0.8 | mg/dl | (missing) | | (MG/DL) IN | 00:45 | Health | | | | | SER/PLAS | | System - | | | | | | | [place] | | | | + + + + + + + | GLUCOSE, | 2021-12-16 | [facility] | 106 | mg/dl | (missing) | | RANDOM | 00:45 | Health | | | | | (MG/DL) IN | | System - | | | | | SER/PLAS | | [place] | | | | + + + + + + + | GLUCOSE, | 2021-12-16 | [facility] | 106 | mg/dl | (missing) | | RANDOM | 00:45 | Health | | | | | (MG/DL) IN | | System - | | | | | SER/PLAS | | [place] | | | | + + + + + + + | CHLORIDE | 2021-12-16 | [facility] | 107 | mmol/l | (missing) | | (MMOL/L) IN | 00:45 | Health | | | | | SER/PLAS | | System - | | | | | | | [place] | | | | + + + + + + + | CHLORIDE | 2021-12-16 | [facility] | 107 | mmol/l | (missing) | | (MMOL/L) IN | 00:45 | Health | | | | | SER/PLAS | | System - | | | | | | | [place] | | | | + + + + + + + | ERYTHROCYTE | 2021-12-16 | [facility] | 12.3 | % | (missing) | | | 00:45 | Health | | | | | DISTRIBUTION | | System - | | | | | WIDTH | | [place] | | | | | (RATIO) BY [...] | | | | WIDTH | | [place] | | | | | (RATIO) BY [...] | | | | | | | [place] | | | | + + + + + + + | ANION GAP | 2021-12-16 | [facility] | 13.0 | mmol/l | (missing) | | IN SER/PLAS | 00:45 | Health | | | | | | | System - | | | | | | | [place] | | | | + + + + + + + | HEMOGLOBIN | 2021-12-16 | [facility] | 13.8 | g/dl | (missing) | | (G/DL) IN | 00:45 | Health | | | | | BLOOD | | System - | | | | | | | [place] | | | | + + + + + + + | HEMOGLOBIN | 2021-12-16 | [facility] | 13.8 | g/dl | (missing) | | (G/DL) IN | 00:45 | Health | | | | | BLOOD | | System - | | | | | | | [place] | | | | + + + + + + + | SODIUM | 2021-12-16 | [facility] | 141 | mmol/l | (missing) | | (MMOL/L) IN | 00:45 | Health | | | | | SER/PLAS | | System - | | | | | | | [place] | | | | + + + + + + + | SODIUM | 2021-12-16 | [facility] | 141 | mmol/l | (missing) | | (MMOL/L) IN | 00:45 | Health | | | | | SER/PLAS | | System - | | | | | | | [place] | | | | + + + + + + + | ASPARTATE | 2021-12-16 | [facility] | 18 | u/l | (missing) | | AMINOTRANSFE | 00:45 | Health | | | | | RASE (SGOT) | | System - | | | | | (U/L) IN | | [place] | | | | | SER/PLAS | | | | | | + + + + + + + | ASPARTATE | 2021-12-16 | [facility] | 18 | u/l | (missing) | | AMINOTRANSFE | 00:45 | Health | | | | | RASE (SGOT) | | System - | | | | | (U/L) IN | | [place] | | | | | SER/PLAS | | | | | | + + + + + + + | CARBON | 2021-12-16 | [facility] | 21 | mmol/l | (missing) | | DIOXIDE | 00:45 | Health | | | | | (CO2), TOTAL | | System - | | | | | (MMOL/L) IN | | [place] | | | | | SER/PLAS | | | | | | + + + + + + + | CARBON | 2021-12-16 | [facility] | 21 | mmol/l | (missing) | | DIOXIDE | 00:45 | Health | | | | | (CO2), TOTAL | | System - | | | | | (MMOL/L) IN | | [place] | | | | | SER/PLAS | | | | | | + + + + + + + | POTASSIUM | 2021-12-16 | [facility] | 3.4 | mmol/l | (missing) | | (MMOL/L) IN | 00:45 | Health | | | | | SER/PLAS | | System - | | | | | | | [place] | | | | + + + + + + + | POTASSIUM | 2021-12-16 | [facility] | 3.4 | mmol/l | (missing) | | (MMOL/L) IN | 00:45 | Health | | | | | SER/PLAS | | System - | | | | | | | [place] | | | | + + + + + + + | LYMPHOCYTES | 2021-12-16 | [facility] | 3.8 | k/mcl | (missing) | | (10*3/UL) | 00:45 | Health | | | | | IN BLOOD BY | | System - | | | | | AUTOMATED | | [place] | | | | | COUNT | | | | | | + + + + + + + | LYMPHOCYTES | 2021-12-16 | [facility] | 3.8 | k/mcl | (missing) | | (10*3/UL) | 00:45 | Health | | | | | IN BLOOD BY | | System - | | | | | AUTOMATED | | [place] | | | | | COUNT | | | | | | + + + + + + + | ERYTHROCYTE | 2021-12-16 | [facility] | 30.4 | pg | (missing) | | [facility] | 00:45 | Health | | | | | CORPUSCULAR | | System - | | | | | HEMOGLOBIN | | [place] | | | | | (PG) BY [...] | | | | HEMOGLOBIN | | [place] | | | | | (PG) BY [...] | | | | HEMOGLOBIN | | [place] | | | | | CONCENTRATIO | [...] | | | | HEMOGLOBIN | | [place] | | | | | CONCENTRATIO | [...] | | | | AUTOMATED | | [place] | | | | | COUNT | | | | | | + + + + + + + | PLATELETS | 2021-12-16 | [facility] | 378 | k/mcl | (missing) | | (10*3/UL) IN | 00:45 | Health | | | | | BLOOD | | System - | | | | | AUTOMATED | | [place] | | | | | COUNT | | | | | | + + + + + + + | NEUTROPHILS | 2021-12-16 | [facility] | 4.3 | k/mcl | (missing) | | (10*3/UL) | 00:45 | Health | | | | | IN BLOOD BY | | System - | | | | | AUTOMATED | | [place] | | | | | COUNT | | | | | | + + + + + + + | NEUTROPHILS | 2021-12-16 | [facility] | 4.3 | k/mcl | (missing) | | (10*3/UL) | 00:45 | Health | | | | | IN BLOOD BY | | System - | | | | | AUTOMATED | | [place] | | | | | COUNT | | | | | | + + + + + + + | ALBUMIN | 2021-12-16 | [facility] | 4.5 | g/dl | (missing) | | (G/DL) IN | 00:45 | Health | | | | | SER/PLAS | | System - | | | | | | | [place] | | | | + + + + + + + | ALBUMIN | 2021-12-16 | [facility] | 4.5 | g/dl | (missing) | | (G/DL) IN | 00:45 | Health | | | | | SER/PLAS | | System - | | | | | | | [place] | | | | + + + + + + + | | 2021-12-16 | [facility] | 4.54 | m/mcl | (missing) | | ERYTHROCYTES | 00:45 | Health | | | | | (10*6/UL) | | System - | | | | | IN BLOOD BY | | [place] | | | | | AUTOMATED | [...] | | IN BLOOD BY | | [place] | | | | | AUTOMATED | [...] | | | | AUTOMATED | | [place] | | | | | COUNT | | | | | | + + + + + + + | HEMATOCRIT | 2021-12-16 | [facility] | 41.5 | % | (missing) | | (%) IN BLOOD | 00:45 | Health | | | | | BY | | System - | | | | | AUTOMATED | | [place] | | | | | COUNT | | | | | | + + + + + + + | | 2021-12-16 | [facility] | 43.7 | % | (missing) | | LYMPHOCYTES/ | 00:45 | Health | | | | | 100 | | System - | | | | | LEUKOCYTES | | [place] | | | | | IN BLOOD [...] | | | | LEUKOCYTES | | [place] | | | | | IN BLOOD [...] | | | | LEUKOCYTES | | [place] | | | | | IN BLOOD [...] | | | | LEUKOCYTES | | [place] | | | | | IN BLOOD [...] | | IN BLOOD BY | | [place] | | | | | AUTOMATED | [...] | | IN BLOOD BY | | [place] | | | | | AUTOMATED | [...] | | | | SER/PLAS | | [place] | | | | + + + + + + + | ALKALINE | 2021-12-16 | [facility] | 61 | u/l | (missing) | | PHOSPHATASE | 00:45 | Health | | | | | (U/L) IN | | System - | | | | | SER/PLAS | | [place] | | | | + + + + + + + | BLOOD UREA | 2021-12-16 | [facility] | 7 | mg/dl | (missing) | | NITROGEN | 00:45 | Health | | | | | (BUN) | | System - | | | | | (MG/DL) IN | | [place] | | | | | SER/PLAS | | | | | | + + + + + + + | BLOOD UREA | 2021-12-16 | [facility] | 7 | mg/dl | (missing) | | NITROGEN | 00:45 | Health | | | | | (BUN) | | System - | | | | | (MG/DL) IN | | [place] | | | | | SER/PLAS | | | | | | + + + + + + + | PROTEIN | 2021-12-16 | [facility] | 7.0 | g/dl | (missing) | | (G/DL) IN | 00:45 | Health | | | | | SER/PLAS | | System - | | | | | | | [place] | | | | + + + + + + + | PROTEIN | 2021-12-16 | [facility] | 7.0 | g/dl | (missing) | | (G/DL) IN | 00:45 | Health | | | | | SER/PLAS | | System - | | | | | | | [place] | | | | + + + + + + + | | 2021-12-16 | [facility] | 8.8 | k/mcl | (missing) | | LEUKOCYTES(1 | 00:45 | Health | | | | | 0*3/UL) IN | | System - | | | | | BLOOD BY | | [place] | | | | | AUTOMATED | [...] | | | BLOOD BY | | [place] | | | | | AUTOMATED | [...] | | | (U/L) IN | | [place] | | | | | SER/PLAS | | | | | | + + + + + + + | ALANINE | 2021-12-16 | [facility] | 9 | u/l | (missing) | | AMINOTRANSFE | 00:45 | Health | | | | | RASE (SGPT) | | System - | | | | | (U/L) IN | | [place] | | | | | SER/PLAS | | | | | | + + + + + + + | CALCIUM | 2021-12-16 | [facility] | 9.0 | mg/dl | (missing) | | (MG/DL) IN | 00:45 | Health | | | | | SER/PLAS | | System - | | | | | | | [place] | | | | + + + + + + + | CALCIUM | 2021-12-16 | [facility] | 9.0 | mg/dl | (missing) | | (MG/DL) IN | 00:45 | Health | | | | | SER/PLAS | | System - | | | | | | | [place] | | | | + + + + + + + | PLATELET | 2021-12-16 | [facility] | 9.1 | fl | (missing) | | MEAN VOLUME | 00:45 | Health | | | | | (FL) IN | | System - | | | | | BLOOD BY | | [place] | | | | | AUTOMATED | [...] | | | BLOOD BY | | [place] | | | | | AUTOMATED | [...] | | | VOLUME (FL) | | [place] | | | | | BY AUTOMATED [...] | | | VOLUME (FL) | | [place] | | | | | BY AUTOMATED [...] | | | | SER/PLAS | | [place] | | | | + + + + + + + | [facility] QUAL | 2021-12-16 | [facility] | Negative | (missing) | (missing) | | (CHORIOGONAD | 00:45 | Health | | | | | OTROPIN) IN | | System - | | | | | SER/PLAS | | [place] | | | | + + + + + + + + + | Result panel 55 | + + + + + + + + + | | 2021-12-16 | [facility] | (missing) | (missing) | (missing) | | (unavailable | 00:46 | Health | | | | | ) | | System - | | | | | | | [place] | | | | + + + + + + + | | 2021-12-16 | [facility] | BONES: | (missing) | (missing) | | (unavailable | 00:46 | Health | Normal. | | | | ) | | System - | | | | | | | [place] | | | | + + + + + + + | | 2021-12-16 | [facility] | COMPARISON: | (missing) | (missing) | | (unavailable | 00:46 | Health | 09/29/2021 | | | | ) | | System - | | | | | | | [place] | | | | + + + + + + + | | 2021-12-16 | [facility] | Electronical | (missing) | (missing) | | (unavailable | 00:46 | Health | ly signed | | | | ) | | System - | by: Nithin | | | | | | [place] | MD Suhas | | | | [...] | | | | | | | [place] | | | | + + + + + + + | | 2021-12-16 | [facility] | HEART: | (missing) | (missing) | | (unavailable | 00:46 | Health | Normal in | | | | ) | | System - | size and | | | | | | [place] | appearance. | | | + + + + + + + | | 2021-12-16 | [facility] | | (missing) | (missing) | | (unavailable | 00:46 | Health | INDICATIONS: | | | | ) | | System - | chest pain | | | | | | [place] | | | | + + + + + + + | | 2021-12-16 | [facility] | LUNGS: | (missing) | (missing) | | (unavailable | 00:46 | Health | Clear. No | | | | ) | | System - | focal | | | | | | [place] | consolidatio | | | | | [...] mediastinal | | | | | | [place] | contours | | | | | [...] of | | | | | | [place] | acute | | | | | [...] pleural | | | | | | [place] | effusion or | | | | [...] VIEW | | | | | | [place] | | | | + + + + + + + | | 2021-12-16 | [facility] | | (missing) | (missing) | | (unavailable | 00:46 | Health | Procedure(s) | | | | ) | | System - | : * No | | | | | | [place] | procedures | | | | | [...] ? | | | RATE) | | [place] | | | | | ML/MIN/1.73 | [...] ? | | | RATE) | | [place] | | | | | ML/MIN/1.73 | [...] | | | | | | | [place] | | | | + + + + + + + | ALCOHOL | 2021-12-18 | [facility] | < | g/dl | (missing) | | (G/DL) IN | 00:22 | Health | | | | | SER/PLAS | | System - | | | | | | | [place] | | | | + + + + + + + | | 2021-12-18 | [facility] | < | mcg/ml | (missing) | | ACETAMINOPHE | 00:22 | Health | | | | | N (UG/ML) IN | | System - | | | | | SER/PLAS | | [place] | | | | + + + + + + + | | 2021-12-18 | [facility] | < | mcg/ml | (missing) | | ACETAMINOPHE | 00:22 | Health | | | | | N (UG/ML) IN | | System - | | | | | SER/PLAS | | [place] | | | | + + + + + + + | SALICYLATE | 2021-12-18 | [facility] | < | mg/dl | (missing) | | (MG/DL) IN | 00: | Health | | | | | SER/PLAS | | System - | | | | | | | [place] | | | | + + + + + + + | SALICYLATE | 2021-12-18 | [facility] | < | mg/dl | (missing) | | (MG/DL) IN | 00:22 | Health | | | | | SER/PLAS | | System - | | | | | | | [place] | | | | + + + + + + + | NRBC/100 | 2021-12-18 | [facility] | 0.0 | % | (missing) | | WBCS BY | 00:22 | Health | | | | | AUTOMATED | | System - | | | | | COUNT | | [place] | | | | + + + + + + + | NRBC/100 | 2021-12-18 | [facility] | 0.0 | % | (missing) | | WBCS BY | 00:22 | Health | | | | | AUTOMATED | | System - | | | | | COUNT | | [place] | | | | + + + + + + + | | 2021-12-18 | [facility] | 0.0 | k/mcl | (missing) | | NRBC(10*3/UL | 00:22 | Health | | | | | ) IN BLOOD | | System - | | | | | BY AUTOMATED | | [place] | | | | | COUNT | | | | | | + + + + + + + | | 2021-12-18 | [facility] | 0.0 | k/mcl | (missing) | | NRBC(10*3/UL | 00:22 | Health | | | | | ) IN BLOOD | | System - | | | | | BY AUTOMATED | | [place] | | | | | COUNT | | | | | | + + + + + + + | IMMATURE | 2021-12-18 | [facility] | 0.03 | k/mcl | (missing) | | GRANULOCYTE | 00:22 | Health | | | | | (ABS) | | System - | | | | | | | [place] | | | | + + + + + + + | IMMATURE | 2021-12-18 | [facility] | 0.03 | k/mcl | (missing) | | GRANULOCYTE | 00:22 | Health | | | | | (ABS) | | System - | | | | | | | [place] | | | | + + + + + + + | BASOPHILS | 2021-12-18 | [facility] | 0.1 | k/mcl | (missing) | | (10*3/UL) IN | 00:22 | Health | | | | | BLOOD BY | | System - | | | | | AUTOMATED | | [place] | | | | | COUNT | | | | | | + + + + + + + | EOSINOPHILS | 2021-12-18 | [facility] | 0.1 | k/mcl | (missing) | | (10*3/UL) | 00:22 | Health | | | | | IN BLOOD BY | | System - | | | | | AUTOMATED | | [place] | | | | | COUNT | | | | | | + + + + + + + | BASOPHILS | 2021-12-18 | [facility] | 0.1 | k/mcl | (missing) | | (10*3/UL) IN | 00:22 | Health | | | | | BLOOD BY | | System - | | | | | AUTOMATED | | [place] | | | | | COUNT | | | | | | + + + + + + + | EOSINOPHILS | 2021-12-18 | [facility] | 0.1 | k/mcl | (missing) | | (10*3/UL) | 00:22 | Health | | | | | IN BLOOD BY | | System - | | | | | AUTOMATED | | [place] | | | | | COUNT | | | | | | + + + + + + + | IMMATURE | 2021-12-18 | [facility] | 0.2 | % | (missing) | | GRANULOCYTE | 00:22 | Health | | | | | % (AUTO) | | System - | | | | | | | [place] | | | | + + + + + + + | IMMATURE | 2021-12-18 | [facility] | 0.2 | % | (missing) | | GRANULOCYTE | 00:22 | Health | | | | | % (AUTO) | | System - | | | | | | | [place] | | | | + + + + + + + | | 2021-12-18 | [facility] | 0.4 | % | (missing) | | BASOPHILS/10 | 00:22 | Health | | | | | 0 LEUKOCYTES | | System - | | | | | IN BLOOD BY | | [place] | | | | | AUTOMATED | [...] | | IN BLOOD BY | | [place] | | | | | AUTOMATED | [...] | | | | SER/PLAS | | [place] | | | | + + + + + + + | BILIRUBIN | 2021-12-18 | [facility] | 0.4 | mg/dl | (missing) | | TOTAL | 00:22 | Health | | | | | (MG/DL) IN | | System - | | | | | SER/PLAS | | [place] | | | | + + + + + + + | | 2021-12-18 | [facility] | 0.6 | % | (missing) | | EOSINOPHILS/ | 00:22 | Health | | | | | 100 | | System - | | | | | LEUKOCYTES | | [place] | | | | | IN BLOOD BY | | | | | | | AUTOMATED | | | | | | | COUNT | | | | | | + + + + + + + | | 2021-12-18 | [facility] | 0.6 | % | (missing) | | EOSINOPHILS/ | 00: | Health | | | | | 100 | | System - | | | | | LEUKOCYTES | | [place] | | | | | IN BLOOD [...] | | | | AUTOMATED | | [place] | | | | | COUNT | | | | | | + + + + + + + | MONOCYTES | 2021-12-18 | [facility] | 0.8 | k/mcl | (missing) | | (10*3/UL) IN | 00:22 | Health | | | | | BLOOD BY | | System - | | | | | AUTOMATED | | [place] | | | | | COUNT | | | | | | + + + + + + + | CREATININE | 2021-12-18 | [facility] | 0.9 | mg/dl | (missing) | | (MG/DL) IN | 00:22 | Health | | | | | SER/PLAS | | System - | | | | | | | [place] | | | | + + + + + + + | CREATININE | 2021-12-18 | [facility] | 0.9 | mg/dl | (missing) | | (MG/DL) IN | 00:22 | Health | | | | | SER/PLAS | | System - | | | | | | | [place] | | | | + + + + + + + | SPECIFIC | 2021-12-18 | [facility] | 1.033 | (missing) | (missing) | | GRAVITY OF | 00:22 | Health | | | | | URINE BY | | System - | | | | | AUTOMATED | | [place] | | | | | TEST STRIP | | | | | | + + + + + + + | SPECIFIC | 2021-12-18 | [facility] | 1.033 | (missing) | (missing) | | GRAVITY OF | 00:22 | Health | | | | | URINE BY | | System - | | | | | AUTOMATED | | [place] | | | | | TEST STRIP | | | | | | + + + + + + + | GLUCOSE, | 2021-12-18 | [facility] | 106 | mg/dl | (missing) | | RANDOM | 00:22 | Health | | | | | (MG/DL) IN | | System - | | | | | SER/PLAS | | [place] | | | | + + + + + + + | GLUCOSE, | 2021-12-18 | [facility] | 106 | mg/dl | (missing) | | RANDOM | 00:22 | Health | | | | | (MG/DL) IN | | System - | | | | | SER/PLAS | | [place] | | | | + + + + + + + | CHLORIDE | 2021-12-18 | [facility] | 107 | mmol/l | (missing) | | (MMOL/L) IN | 00:22 | Health | | | | | SER/PLAS | | System - | | | | | | | [place] | | | | + + + + + + + | CHLORIDE | 2021-12-18 | [facility] | 107 | mmol/l | (missing) | | (MMOL/L) IN | 00:22 | Health | | | | | SER/PLAS | | System - | | | | | | | [place] | | | | + + + + + + + | BLOOD UREA | 2021-12-18 | [facility] | 12 | mg/dl | (missing) | | NITROGEN | 00:22 | Health | | | | | (BUN) | | System - | | | | | (MG/DL) IN | | [place] | | | | | SER/PLAS | | | | | | + + + + + + + | BLOOD UREA | 2021-12-18 | [facility] | 12 | mg/dl | (missing) | | NITROGEN | 00:22 | Health | | | | | (BUN) | | System - | | | | | (MG/DL) IN | | [place] | | | | | SER/PLAS | | | | | | + + + + + + + | ERYTHROCYTE | 2021-12-18 | [facility] | 12.5 | % | (missing) | | | 00:22 | Health | | | | | DISTRIBUTION | | System - | | | | | WIDTH | | [place] | | | | | (RATIO) BY [...] | | | | WIDTH | | [place] | | | | | (RATIO) BY [...] | | | BLOOD BY | | [place] | | | | | AUTOMATED | [...] | | | BLOOD BY | | [place] | | | | | AUTOMATED | [...] | | | | | | | [place] | | | | + + + + + + + | HEMOGLOBIN | 2021-12-18 | [facility] | 14.5 | g/dl | (missing) | | (G/DL) IN | 00:22 | Health | | | | | BLOOD | | System - | | | | | | | [place] | | | | + + + + + + + | SODIUM | 2021-12-18 | [facility] | 140 | mmol/l | (missing) | | (MMOL/L) IN | 00:22 | Health | | | | | SER/PLAS | | System - | | | | | | | [place] | | | | + + + + + + + | SODIUM | 2021-12-18 | [facility] | 140 | mmol/l | (missing) | | (MMOL/L) IN | 00:22 | Health | | | | | SER/PLAS | | System - | | | | | | | [place] | | | | + + + + + + + | SQUAMOUS | 2021-12-18 | [facility] | 15 | /hpf | (missing) | | EPITHELIAL | 00:22 | Health | | | | | CELLS | | System - | | | | | (#/HPF) IN | | [place] | | | | | URINE | [...] | | | (#/HPF) IN | | [place] | | | | | URINE | [...] | | | | | | | [place] | | | | + + + + + + + | ANION GAP | 2021-12-18 | [facility] | 15.0 | mmol/l | (missing) | | IN SER/PLAS | 00:22 | Health | | | | | | | System - | | | | | | | [place] | | | | + + + + + + + | WBC | 2021-12-18 | [facility] | 18 | /hpf | (missing) | | (LEUKOCYTE) | 00:22 | Health | | | | | (#/HPF) IN | | System - | | | | | URINE | | [place] | | | | | SEDIMENT | | | | | | + + + + + + + | WBC | 2021-12-18 | [facility] | 18 | /hpf | (missing) | | (LEUKOCYTE) | 00:22 | Health | | | | | (#/HPF) IN | | System - | | | | | URINE | | [place] | | | | | SEDIMENT | | | | | | + + + + + + + | CARBON | 2021-12-18 | [facility] | 18 | mmol/l | (missing) | | DIOXIDE | 00:22 | Health | | | | | (CO2), TOTAL | | System - | | | | | (MMOL/L) IN | | [place] | | | | | SER/PLAS | | | | | | + + + + + + + | CARBON | 2021-12-18 | [facility] | 18 | mmol/l | (missing) | | DIOXIDE | 00:22 | Health | | | | | (CO2), TOTAL | | System - | | | | | (MMOL/L) IN | | [place] | | | | | SER/PLAS | | | | | | + + + + + + + | PROTEIN IN | 2021-12-18 | [facility] | 2 | (missing) | (missing) | | URINE BY | 00:22 | Health | | | | | TEST STRIP | | System - | | | | | | | [place] | | | | + + + + + + + | PROTEIN IN | 2021-12-18 | [facility] | 2 | (missing) | (missing) | | URINE BY | 00:22 | Health | | | | | TEST STRIP | | System - | | | | | | | [place] | | | | + + + + + + + | TSH | 2021-12-18 | [facility] | 2.61 | mciu/ml | (missing) | | (THYROTROPIN | 00:22 | Health | | | | | ) (UIU/ML) | | System - | | | | | IN SER/PLAS | | [place] | | | | + + + + + + + | TSH | 2021-12-18 | [facility] | 2.61 | mciu/ml | (missing) | | (THYROTROPIN | 00:22 | Health | | | | | ) (UIU/ML) | | System - | | | | | IN SER/PLAS | | [place] | | | | + + + + + + + | ASPARTATE | 2021-12-18 | [facility] | 20 | u/l | (missing) | | AMINOTRANSFE | 00:22 | Health | | | | | RASE (SGOT) | | System - | | | | | (U/L) IN | | [place] | | | | | SER/PLAS | | | | | | + + + + + + + | ASPARTATE | 2021-12-18 | [facility] | 20 | u/l | (missing) | | AMINOTRANSFE | 00:22 | Health | | | | | RASE (SGOT) | | System - | | | | | (U/L) IN | | [place] | | | | | SER/PLAS | | | | | | + + + + + + + | | 2021-12-18 | [facility] | 24.0 | % | (missing) | | LYMPHOCYTES/ | 00:22 | Health | | | | | 100 | | System - | | | | | LEUKOCYTES | | [place] | | | | | IN BLOOD [...] | | | | LEUKOCYTES | | [place] | | | | | IN BLOOD [...] | | | URINE BY | | [place] | | | | | TEST STRIP | | | | | | + + + + + + + | LEUKOCYTE | 2021-12-18 | [facility] | 3 | (missing) | (missing) | | ESTERASE | 00:22 | Health | | | | | PRESENCE IN | | System - | | | | | URINE BY | | [place] | | | | | TEST STRIP | | | | | | + + + + + + + | LYMPHOCYTES | 2021-12-18 | [facility] | 3.0 | k/mcl | (missing) | | (10*3/UL) | 00:22 | Health | | | | | IN BLOOD BY | | System - | | | | | AUTOMATED | | [place] | | | | | COUNT | | | | | | + + + + + + + | LYMPHOCYTES | 2021-12-18 | [facility] | 3.0 | k/mcl | (missing) | | (10*3/UL) | 00:22 | Health | | | | | IN BLOOD BY | | System - | | | | | AUTOMATED | | [place] | | | | | COUNT | | | | | | + + + + + + + | POTASSIUM | 2021-12-18 | [facility] | 3.4 | mmol/l | (missing) | | (MMOL/L) IN | 00:22 | Health | | | | | SER/PLAS | | System - | | | | | | | [place] | | | | + + + + + + + | POTASSIUM | 2021-12-18 | [facility] | 3.4 | mmol/l | (missing) | | (MMOL/L) IN | 00:22 | Health | | | | | SER/PLAS | | System - | | | | | | | [place] | | | | + + + + + + + | ERYTHROCYTE | 2021-12-18 | [facility] | 31.3 | pg | (missing) | | MEAN | 00:22 | Health | | | | | CORPUSCULAR | | System - | | | | | HEMOGLOBIN | | [place] | | | | | (PG) BY [...] | | | | HEMOGLOBIN | | [place] | | | | | (PG) BY [...] | | | | HEMOGLOBIN | | [place] | | | | | CONCENTRATIO | [...] | | | | HEMOGLOBIN | | [place] | | | | | CONCENTRATIO | [...] | | | | | | | [place] | | | | + + + + + + + | BACTERIA | 2021-12-18 | [facility] | 4 | /hpf | (missing) | | (#/HPF) IN | 00:22 | Health | | | | | URINE | | System - | | | | | | | [place] | | | | + + + + + + + | ALBUMIN | 2021-12-18 | [facility] | 4.4 | g/dl | (missing) | | (G/DL) IN | 00:22 | Health | | | | | SER/PLAS | | System - | | | | | | | [place] | | | | + + + + + + + | ALBUMIN | 2021-12-18 | [facility] | 4.4 | g/dl | (missing) | | (G/DL) IN | 00:22 | Health | | | | | SER/PLAS | | System - | | | | | | | [place] | | | | + + + + + + + | | 2021-12-18 | [facility] | 4.64 | m/mcl | (missing) | | ERYTHROCYTES | 00:22 | Health | | | | | (10*6/UL) | | System - | | | | | IN BLOOD BY | | [place] | | | | | AUTOMATED | [...] | | IN BLOOD BY | | [place] | | | | | AUTOMATED | [...] | | | | AUTOMATED | | [place] | | | | | COUNT | | | | | | + + + + + + + | HEMATOCRIT | 2021-12-18 | [facility] | 40.7 | % | (missing) | | (%) IN BLOOD | 00:22 | Health | | | | | BY | | System - | | | | | AUTOMATED | | [place] | | | | | COUNT | | | | | | + + + + + + + | PLATELETS | 2021-12-18 | [facility] | 407 | k/mcl | (missing) | | (10*3/UL) IN | 00:22 | Health | | | | | BLOOD | | System - | | | | | AUTOMATED | | [place] | | | | | COUNT | | | | | | + + + + + + + | PLATELETS | 2021-12-18 | [facility] | 407 | k/mcl | (missing) | | (10*3/UL) IN | 00:22 | Health | | | | | BLOOD | | System - | | | | | AUTOMATED | | [place] | | | | | COUNT | | | | | | + + + + + + + | RBC (#/HPF) | 2021-12-18 | [facility] | 6 | /hpf | (missing) | | IN URINE | 00:22 | Health | | | | | SEDIMENT | | System - | | | | | | | [place] | | | | + + + + + + + | RBC (#/HPF) | 2021-12-18 | [facility] | 6 | /hpf | (missing) | | IN URINE | 00:22 | Health | | | | | SEDIMENT | | System - | | | | | | | [place] | | | | + + + + + + + | PH OF URINE | 2021-12-18 | [facility] | 6.5 | (missing) | (missing) | | | 00:22 | Health | | | | | | | System - | | | | | | | [place] | | | | + + + + + + + | PH OF URINE | 2021-12-18 | [facility] | 6.5 | (missing) | (missing) | | | 00:22 | Health | | | | | | | System - | | | | | | | [place] | | | | + + + + + + + | | 2021-12-18 | [facility] | 6.5 | % | (missing) | | MONOCYTES/10 | 00:22 | Health | | | | | 0 LEUKOCYTES | | System - | | | | | IN BLOOD BY | | [facility] | | | | | AUTOMATED | [...] | | IN BLOOD BY | | [facility] | | | | | AUTOMATED | [...] | | | | | | | [facility] | | | | + + + + + + + | PROTEIN | 2021-12-18 | [facility] | 6.9 | g/dl | (missing) | | (G/DL) IN | 00:22 | Health | | | | | SER/PLAS | | System - | | | | | | | [place] | | | | + + + + + + + | ALKALINE | 2021-12-18 | [facility] | 65 | u/l | (missing) | | PHOSPHATASE | 00:22 | Health | | | | | (U/L) IN | | System - | | | | | SER/PLAS | | [place] | | | | + + + + + + + | ALKALINE | 2021-12-18 | [facility] | 65 | u/l | (missing) | | PHOSPHATASE | 00:22 | Health | | | | | (U/L) IN | | System - | | | | | SER/PLAS | | [place] | | | | + + + + + + + | | 2021-12-18 | [facility] | 68.3 | % | (missing) | | NEUTROPHILS/ | 00:22 | Health | | | | | 100 | | System - | | | | | LEUKOCYTES | | [place] | | | | | IN BLOOD [...] | | | | LEUKOCYTES | | [facility] | | | | | IN BLOOD [...] | | | (U/L) IN | | [facility] | | | | | SER/PLAS | | | | | | + + + + + + + | ALANINE | 2021-12-18 | [facility] | 8 | u/l | (missing) | | AMINOTRANSFE | 00:22 | Health | | | | | RASE (SGPT) | | System - | | | | | (U/L) IN | | [place] | | | | | SER/PLAS | | | | | | + + + + + + + | NEUTROPHILS | 2021-12-18 | [facility] | 8.7 | k/mcl | (missing) | | (10*3/UL) | 00:22 | Health | | | | | IN BLOOD BY | | System - | | | | | AUTOMATED | | [place] | | | | | COUNT | | | | | | + + + + + + + | NEUTROPHILS | 2021-12-18 | [facility] | 8.7 | k/mcl | (missing) | | (10*3/UL) | 00:22 | Health | | | | | IN BLOOD BY | | System - | | | | | AUTOMATED | | [place] | | | | | COUNT | | | | | | + + + + + + + | ERYTHROCYTE | 2021-12-18 | [facility] | 87.7 | fl | (missing) | | MEAN | 00:22 | Health | | | | | CORPUSCULAR | | System - | | | | | VOLUME (FL) | | [place] | | | | | BY AUTOMATED [...] | | | VOLUME (FL) | | [facility] | | | | | BY AUTOMATED [...] | | | BLOOD BY | | [facility] | | | | | AUTOMATED | [...] | | | BLOOD BY | | [facility] | | | | | AUTOMATED | [...] | | | | | | | [place] | | | | + + + + + + + | CALCIUM | 2021-12-18 | [facility] | 9.4 | mg/dl | (missing) | | (MG/DL) IN | 00:22 | Health | | | | | SER/PLAS | | System - | | | | | | | [place] | | | | + + + + + + + | CLARITY OF | 2021-12-18 | [facility] | Hazy | (missing) | (missing) | | URINE | 00:22 | Health | | | | | | | System - | | | | | | | [place] | | | | + + + + + + + | CLARITY OF | 2021-12-18 | [facility] | [place] | (missing) | (missing) | | URINE | 00:22 | Health | | | | | | | System - | | | | | | | [place] | | | | + + + + + + + | | 2021-12-18 | [facility] | Negative | (missing) | (missing) | | BARBITURATES | 00:22 | Health | | | | | PRESENCE IN | | System - | | | | | URINE BY | | [place] | | | | | SCREEN | [...] | | | | URINE | | [place] | | | | + + + + + + + | COCAINE | 2021-12-18 | [facility] | Negative | (missing) | (missing) | | (PRESENCE) | 00:22 | Health | | | | | IN URINE BY | | System - | | | | | SCREEN | | [place] | | | | | METHOD | | | | | | + + + + + + + | GLUCOSE IN | 2021-12-18 | [facility] | Negative | (missing) | (missing) | | URINE | 00:22 | Health | | | | | | | System - | | | | | | | [place] | | | | + + + + + + + | HEMOGLOBIN | 2021-12-18 | [facility] | Negative | (missing) | (missing) | | PRESENCE IN | 00:22 | Health | | | | | URINE | | System - | | | | | | | [place] | | | | + + + + + + + | METHADONE | 2021-12-18 | [facility] | Negative | (missing) | (missing) | | (PRESENCE) | 00:22 | Health | | | | | IN URINE BY | | System - | | | | | SCREEN | | [place] | | | | | METHOD | | | | | | + + + + + + + | NITRITE | 2021-12-18 | [facility] | Negative | (missing) | (missing) | | PRESENCE IN | 00:22 | Health | | | | | URINE | | System - | | | | | | | [place] | | | | + + + + + + + | OPIATES | 2021-12-18 | [facility] | Negative | (missing) | (missing) | | (PRESENCE) | 00:22 | Health | | | | | IN URINE BY | | System - | | | | | SCREEN | | [place] | | | | | METHOD | | | | | | + + + + + + + | OXYCODONE | 2021-12-18 | [facility] | Negative | (missing) | (missing) | | (PRESENCE) | 00:22 | Health | | | | | IN URINE BY | | System - | | | | | SCREEN | | [place] | | | | | METHOD | | | | | | + + + + + + + | | 2021-12-18 | [facility] | Negative | (missing) | (missing) | | PHENCYCLIDIN | 00:22 | Health | | | | | E (PRESENCE) | | System - | | | | | IN URINE BY | | [place] | | | | | SCREEN | [...] | | | BY SCREEN | | [facility] | | | | | METHOD | | | | | | + + + + + + + | TRICYCLIC | 2021-12-18 | [facility] | Negative | (missing) | (missing) | | ANTIDEPRESSA | 00:22 | Health | | | | | NTS | | System - | | | | | (PRESENCE) | | [place] | | | | | IN URINE | | | | | | + + + + + + + | | 2021-12-18 | [facility] | Negative | (missing) | (missing) | | PHENCYCLIDIN | 00:22 | Health | | | | | E (PRESENCE) | | System - | | | | | IN URINE BY | | [place] | | | | | SCREEN | [...] | | | BY SCREEN | | [place] | | | | | METHOD | | | | | | + + + + + + + | OPIATES | 2021-12-18 | [facility] | Negative | (missing) | (missing) | | ([facility]) | 00:22 | Health | | | | | IN URINE BY | | System - | | | | | SCREEN | | [place] | | | | | METHOD | | | | | | + + + + + + + | TRICYCLIC | 2021-12-18 | [facility] | Negative | (missing) | (missing) | | ANTIDEPRESSA | 00:22 | Health | | | | | NTS | | System - | | | | | ([facility]) | | [place] | | | | | IN URINE | | | | | | + + + + + + + | OXYCODONE | 2021-12-18 | [facility] | Negative | (missing) | (missing) | | ([facility]) | 00:22 | Health | | | | | IN URINE BY | | System - | | | | | SCREEN | | [place] | | | | | METHOD | | | | | | + + + + + + + | BILIRUBIN, | 2021-12-18 | [facility] | Negative | (missing) | (missing) | | TOTAL | 00:22 | Health | | | | | PRESENCE IN | | System - | | | | | URINE | | [place] | | | | + + + + + + + | BHCG QUAL | 2021-12-18 | [facility] | Negative | (missing) | (missing) | | (CHORIOGONAD | 00:22 | Health | | | | | OTROPIN) IN | | System - | | | | | SER/PLAS | | [place] | | | | + + + + + + + | GLUCOSE IN | 2021-12-18 | [facility] | Negative | (missing) | (missing) | | URINE | 00:22 | Health | | | | | | | System - | | | | | | | [place] | | | | + + + + + + + | COCAINE | 2021-12-18 | [facility] | Negative | (missing) | (missing) | | ([facility]) | 00:22 | Health | | | | | IN URINE BY | | System - | | | | | SCREEN | | [place] | | | | | METHOD | | | | | | + + + + + + + | NITRITE | 2021-12-18 | [facility] | Negative | (missing) | (missing) | | [facility] IN | 00:22 | Health | | | | | URINE | | System - | | | | | | | [place] | | | | + + + + + + + | | 2021-12-18 | [facility] | Negative | (missing) | (missing) | | BARBITURATES | 00:22 | Health | | | | | PRESENCE IN | | System - | | | | | URINE BY | | [place] | | | | | SCREEN | [...] | | | | SCREEN | | [place] | | | | | METHOD | | | | | | + + + + + + + | HEMOGLOBIN | 2021-12-18 | [facility] | Negative | (missing) | (missing) | | [facility] IN | 00:22 | Health | | | | | URINE | | System - | | | | | | | [place] | | | | + + + + + + + | BHCG QUAL | 2021-12-18 | [facility] | Negative | (missing) | (missing) | | (CHORIOGONAD | 00:22 | Health | | | | | OTROPIN) IN | | System - | | | | | SER/PLAS | | [place] | | | | + + + + + + + | | 2021-12-18 | [facility] | Normal | mg/dl | (missing) | | UROBILINOGEN | 00:22 | Health | | | | | (MG/DL) IN | | System - | | | | | URINE BY | | [place] | | | | | TEST STRIP | | | | | | + + + + + + + | | 2021-12-18 | [facility] | Normal | mg/dl | (missing) | | UROBILINOGEN | 00:22 | Health | | | | | (MG/DL) IN | | System - | | | | | URINE BY | | [place] | | | | | TEST STRIP | | | | | | + + + + + + + | | 2021-12-18 | [facility] | Presumptive | (missing) | (missing) | | BENZODIAZEPI | 00:22 | Health | Positive | | | | SURYA | | System - | | | | | ([facility]) | | [place] | | | | | IN URINE [...] | | | | ([facility]) | | [place] | | | | | IN URINE [...] | | | | SCREEN | | [place] | | | | | METHOD | | | | | | + + + + + + + | | 2021-12-18 | [facility] | Presumptive | (missing) | (missing) | | METHAMPHETAM | 00:22 | Health | Positive | | | | INE | | System - | | | | | ([facility]) | | [place] | | | | | IN URINE [...] | | | | ([facility]) | | [place] | | | | | IN URINE [...] | | | | SCREEN | | [place] | | | | | METHOD | | | | | | + + + + + + + | KETONES IN | 2021-12-18 | [facility] | Trace | (missing) | (missing) | | URINE | 00:22 | Health | | | | | | | System - | | | | | | | [place] | | | | + + + + + + + | MUCUS | 2021-12-18 | [facility] | Trace | (missing) | (missing) | | (#/HPF) IN | 00:22 | Health | | | | | URINE | | System - | | | | | SEDIMENT | | [place] | | | | + + + + + + + | MUCUS | 2021-12-18 | [facility] | Trace | (missing) | (missing) | | (#/HPF) IN | 00:22 | Health | | | | | URINE | | System - | | | | | SEDIMENT | | [place] | | | | + + + + + + + | KETONES IN | 2021-12-18 | [facility] | Trace | (missing) | (missing) | | URINE | 00:22 | Health | | | | | | | System - | | | | | | | [place] | | | | + + + + + + + | COLOR OF | 2021-12-18 [facility] | Yellow | (missing) | (missing) | | URINE | 00:22 | Health | | | | | | | System - | | | | | | | [place] | | | | + + + + + + + | COLOR OF | 2021-12-18 | [facility] | Yellow | (missing) | (missing) | | URINE | 00:22 | Health | | | | | | | System - | | | | | | | [place] | | | | + + + [...] ? | | | RATE) | | [place] | | | | | ML/MIN/1.73 | [...] ? | | | RATE) | | [place] | | | | | ML/MIN/1.73 | [...] | | | | SER/PLAS | | [place] | | | | + + + +--------+ + + | BILIRUBIN | 2021-12-21 | [facility] | < | mg/dl | (missing) | | TOTAL | 12:00 | Health | | | | | (MG/DL) IN | | System - | | | | | SER/PLAS | | [place] | | | | + + + +--------+ + + | NRBC/100 | 2021-12-21 | [facility] | 0.0 | % | (missing) | | WBCS BY | 12:00 | Health | | | | | AUTOMATED | | System - | | | | | COUNT | | [place] | | | | + + + +--------+ + + | NRBC/100 | 2021-12-21 | [facility] | 0.0 | % | (missing) | | WBCS BY | 12:00 | Health | | | | | AUTOMATED | | System - | | | | | COUNT | | [place] | | | | + + + +--------+ + + | BASOPHILS | 2021-12-21 | [facility] | 0.0 | k/mcl | (missing) | | (10*3/UL) IN | 12:00 | Health | | | | | BLOOD BY | | System - | | | | | AUTOMATED | | [place] | | | | | COUNT | | | | | | + + + +--------+ + + | | 2021-12-21 | [facility] | 0.0 | k/mcl | (missing) | | NRBC(10*3/UL | 12:00 | Health | | | | | ) IN BLOOD | | System - | | | | | BY AUTOMATED | | [place] | | | | | COUNT | | | | | | + + + +--------+ + + | BASOPHILS | 2021-12-21 | [facility] | 0.0 | k/mcl | (missing) | | (10*3/UL) IN | 12:00 | Health | | | | | BLOOD BY | | System - | | | | | AUTOMATED | | [place] | | | | | COUNT | | | | | | + + + +--------+ + + | | 2021-12-21 | [facility] | 0.0 | k/mcl | (missing) | | NRBC(10*3/UL | 12:00 | Health | | | | | ) IN BLOOD | | System - | | | | | BY AUTOMATED | | [place] | | | | | COUNT | | | | | | + + + +--------+ + + | IMMATURE | 2021-12-21 | [facility] | 0.04 | k/mcl | (missing) | | GRANULOCYTE | 12:00 | Health | | | | | (ABS) | | System - | | | | | | | [place] | | | | + + + +--------+ + + | IMMATURE | 2021-12-21 | [facility] | 0.04 | k/mcl | (missing) | | GRANULOCYTE | 12:00 | Health | | | | | (ABS) | | System - | | | | | | | [place] | | | | + + + +--------+ + + | EOSINOPHILS | 2021-12-21 | [facility] | 0.2 | k/mcl | (missing) | | (10*3/UL) | 12:00 | Health | | | | | IN BLOOD BY | | System - | | | | | AUTOMATED | | [place] | | | | | COUNT | | | | | | + + + +--------+ + + | EOSINOPHILS | 2021-12-21 | [facility] | 0.2 | k/mcl | (missing) | | (10*3/UL) | 12:00 | Health | | | | | IN BLOOD BY | | System - | | | | | AUTOMATED | | [place] | | | | | COUNT | | | | | | + + + +--------+ + + | IMMATURE | 2021-12-21 | [facility] | 0.4 | % | (missing) | | GRANULOCYTE | 12:00 | Health | | | | | % (AUTO) | | System - | | | | | | | [place] | | | | + + + +--------+ + + | | 2021-12-21 | [facility] | 0.4 | % | (missing) | | BASOPHILS/10 | 12:00 | Health | | | | | 0 LEUKOCYTES | | System - | | | | | IN BLOOD BY | | [place] | | | | | AUTOMATED | [...] | | IN BLOOD BY | | [place] | | | | | AUTOMATED | [...] | | | | | | | [place] | | | | + + + +--------+ + + | MONOCYTES | 2021-12-21 | [facility] | 0.7 | k/mcl | (missing) | | (10*3/UL) IN | 12:00 | Health | | | | | BLOOD BY | | System - | | | | | AUTOMATED | | [place] | | | | | COUNT | | | | | | + + + +--------+ + + | MONOCYTES | 2021-12-21 | [facility] | 0.7 | k/mcl | (missing) | | (10*3/UL) IN | 12:00 | Health | | | | | BLOOD BY | | System - | | | | | AUTOMATED | | [place] | | | | | COUNT | | | | | | + + + +--------+ + + | CREATININE | 2021-12-21 | [facility] | 0.8 | mg/dl | (missing) | | (MG/DL) IN | 12:00 | Health | | | | | SER/PLAS | | System - | | | | | | | [place] | | | | + + + +--------+ + + | CREATININE | 2021-12-21 | [facility] | 0.8 | mg/dl | (missing) | | (MG/DL) IN | 12:00 | Health | | | | | SER/PLAS | | System - | | | | | | | [place] | | | | + + + +--------+ + + | | 2021-12-21 | [facility] | 1.6 | % | (missing) | | EOSINOPHILS/ | 12:00 | Health | | | | | 100 | | System - | | | | | LEUKOCYTES | | [place] | | | | | IN BLOOD [...] | | | | LEUKOCYTES | | [place] | | | | | IN BLOOD [...] | | | | | | | [place] | | | | + + + +--------+ + + | CHLORIDE | 2021-12-21 | [facility] | 109 | mmol/l | (missing) | | (MMOL/L) IN | 12:00 | Health | | | | | SER/PLAS | | System - | | | | | | | [place] | | | | + + + +--------+ + + | BLOOD UREA | 2021-12-21 | [facility] | 11 | mg/dl | (missing) | | NITROGEN | 12:00 | Health | | | | | (BUN) | | System - | | | | | (MG/DL) IN | | [place] | | | | | SER/PLAS | | | | | | + + + +--------+ + + | BLOOD UREA | 2021-12-21 | [facility] | 11 | mg/dl | (missing) | | NITROGEN | 12:00 | Health | | | | | (BUN) | | System - | | | | | (MG/DL) IN | | [place] | | | | | SER/PLAS | | | | | | + + + +--------+ + + | | 2021-12-21 | [facility] | 11.3 | k/mcl | (missing) | | LEUKOCYTES(1 | 12:00 | Health | | | | | 0*3/UL) IN | | System - | | | | | BLOOD BY | | [place] | | | | | AUTOMATED | [...] | | | BLOOD BY | | [place] | | | | | AUTOMATED | | | | | | | COUNT | | | | | | + + + +--------+ + + | ERYTHROCYTE | 2021-12-21 | [facility] | 12.1 | % | (missing) | | | 12:00 | Health | | | | | DISTRIBUTION | | System - | | | | | WIDTH | | [place] | | | | | (RATIO) BY [...] | | | | WIDTH | | [place] | | | | | (RATIO) BY [...] | | | | | | | [place] | | | | + + + +--------+ + + | SODIUM | 2021-12-21 | [facility] | 137 | mmol/l | (missing) | | (MMOL/L) IN | 12:00 | Health | | | | | SER/PLAS | | System - | | | | | | | [place] | | | | + + + +--------+ + + | HEMOGLOBIN | 2021-12-21 | [facility] | 14.1 | g/dl | (missing) | | (G/DL) IN | 12:00 | Health | | | | | BLOOD | | System - | | | | | | | [place] | | | | + + + +--------+ + + | HEMOGLOBIN | 2021-12-21 | [facility] | 14.1 | g/dl | (missing) | | (G/DL) IN | 12:00 | Health | | | | | BLOOD | | System - | | | | | | | [place] | | | | + + + +--------+ + + | ALANINE | 2021-12-21 | [facility] | 17 | u/l | (missing) | | AMINOTRANSFE | 12:00 | Health | | | | | RASE (SGPT) | | System - | | | | | (U/L) IN | | [place] | | | | | SER/PLAS | | | | | | + + + +--------+ + + | ALANINE | 2021-12-21 | [facility] | 17 | u/l | (missing) | | AMINOTRANSFE | 12:00 | Health | | | | | RASE (SGPT) | | System - | | | | | (U/L) IN | | [place] | | | | | SER/PLAS | | | | | | + + + +--------+ + + | ASPARTATE | 2021-12-21 | [facility] | 18 | u/l | (missing) | | AMINOTRANSFE | 12:00 | Health | | | | | RASE (SGOT) | | System - | | | | | (U/L) IN | | [place] | | | | | SER/PLAS | | | | | | + + + +--------+ + + | ASPARTATE | 2021-12-21 | [facility] | 18 | u/l | (missing) | | AMINOTRANSFE | 12:00 | Health | | | | | RASE (SGOT) | | System - | | | | | (U/L) IN | | [place] | | | | | SER/PLAS | | | | | | + + + +--------+ + + | LYMPHOCYTES | 2021-12-21 | [facility] | 2.9 | k/mcl | (missing) | | (10*3/UL) | 12:00 | Health | | | | | IN BLOOD BY | | System - | | | | | AUTOMATED | | [place] | | | | | COUNT | | | | | | + + + +--------+ + + | LYMPHOCYTES | 2021-12-21 | [facility] | 2.9 | k/mcl | (missing) | | (10*3/UL) | 12:00 | Health | | | | | IN BLOOD BY | | System - | | | | | AUTOMATED | | [place] | | | | | COUNT | | | | | | + + + +--------+ + + | CARBON | 2021-12-21 | [facility] | 20 | mmol/l | (missing) | | DIOXIDE | 12:00 | Health | | | | | (CO2), TOTAL | | System - | | | | | (MMOL/L) IN | | [place] | | | | | SER/PLAS | | | | | | + + + +--------+ + + | CARBON | 2021-12-21 | [facility] | 20 | mmol/l | (missing) | | DIOXIDE | 12:00 | Health | | | | | (CO2), TOTAL | | System - | | | | | (MMOL/L) IN | | [place] | | | | | SER/PLAS | | | | | | + + + +--------+ + + | | 2021-12-21 | [facility] | 25.6 | % | (missing) | | LYMPHOCYTES/ | 12:00 | Health | | | | | 100 | | System - | | | | | LEUKOCYTES | | [place] | | | | | IN BLOOD [...] | | | | LEUKOCYTES | | [place] | | | | | IN BLOOD [...] | | | | | | | [place] | | | | + + + +--------+ + + | POTASSIUM | 2021-12-21 | [facility] | 3.4 | mmol/l | (missing) | | (MMOL/L) IN | 12:00 | Health | | | | | SER/PLAS | | System - | | | | | | | [place] | | | | + + + +--------+ + + | ALBUMIN | 2021-12-21 | [facility] | 3.8 | g/dl | (missing) | | (G/DL) IN | 12:00 | Health | | | | | SER/PLAS | | System - | | | | | | | [place] | | | | + + + +--------+ + + | ALBUMIN | 2021-12-21 | [facility] | 3.8 | g/dl | (missing) | | (G/DL) IN | 12:00 | Health | | | | | SER/PLAS | | System - | | | | | | | [place] | | | | + + + +--------+ + + | ERYTHROCYTE | 2021-12-21 | [facility] | 30.2 | pg | (missing) | | MEAN | 12:00 | Health | | | | | CORPUSCULAR | | System - | | | | | HEMOGLOBIN | | [place] | | | | | (PG) BY [...] | | | | HEMOGLOBIN | | [place] | | | | | (PG) BY [...] | | | | HEMOGLOBIN | | [place] | | | | | CONCENTRATIO | [...] | | | | HEMOGLOBIN | | [place] | | | | | CONCENTRATIO | [...] | | | | AUTOMATED | | [place] | | | | | COUNT | | | | | | + + + +--------+ + + | PLATELETS | 2021-12-21 | [facility] | 328 | k/mcl | (missing) | | (10*3/UL) IN | 12:00 | Health | | | | | BLOOD | | System - | | | | | AUTOMATED | | [place] | | | | | COUNT | | | | | | + + + +--------+ + + | | 2021-12-21 | [facility] | 4.67 | m/mcl | (missing) | | ERYTHROCYTES | 12:00 | Health | | | | | (10*6/UL) | | System - | | | | | IN BLOOD BY | | [place] | | | | | AUTOMATED | [...] | | IN BLOOD BY | | [place] | | | | | AUTOMATED | [...] | | | | AUTOMATED | | [place] | | | | | COUNT | | | | | | + + + +--------+ + + | HEMATOCRIT | 2021-12-21 | [facility] | 43.5 | % | (missing) | | (%) IN BLOOD | 12:00 | Health | | | | | BY | | System - | | | | | AUTOMATED | | [place] | | | | | COUNT | | | | | | + + + +--------+ + + | ALKALINE | 2021-12-21 | [facility] | 57 | u/l | (missing) | | PHOSPHATASE | 12:00 | Health | | | | | (U/L) IN | | System - | | | | | SER/PLAS | | [place] | | | | + + + +--------+ + + | ALKALINE | 2021-12-21 | [facility] | 57 | u/l | (missing) | | PHOSPHATASE | 12:00 | Health | | | | | (U/L) IN | | System - | | | | | SER/PLAS | | [place] | | | | + + + +--------+ + + | | 2021-12-21 | [facility] | 6.0 | % | (missing) | | MONOCYTES/10 | 12:00 | Health | | | | | 0 LEUKOCYTES | | System - | | | | | IN BLOOD BY | | [place] | | | | | AUTOMATED | [...] | | IN BLOOD BY | | [place] | | | | | AUTOMATED | [...] | | | | | | | [place] | | | | + + + +--------+ + + | PROTEIN | 2021-12-21 | [facility] | 6.0 | g/dl | (missing) | | (G/DL) IN | 12:00 | Health | | | | | SER/PLAS | | System - | | | | | | | [place] | | | | + + + +--------+ + + | | 2021-12-21 | [facility] | 66.0 | % | (missing) | | NEUTROPHILS/ | 12:00 | Health | | | | | 100 | | System - | | | | | LEUKOCYTES | | [place] | | | | | IN BLOOD [...] | | | | LEUKOCYTES | | [place] | | | | | IN BLOOD [...] | | | | AUTOMATED | | [place] | | | | | COUNT | | | | | | + + + +--------+ + + | NEUTROPHILS | 2021-12-21 | [facility] | 7.5 | k/mcl | (missing) | | (10*3/UL) | 12:00 | Health | | | | | IN BLOOD BY | | System - | | | | | AUTOMATED | | [place] | | | | | COUNT | | | | | | + + + +--------+ + + | ANION GAP | 2021-12-21 | [facility] | 8.0 | mmol/l | (missing) | | IN SER/PLAS | 12:00 | Health | | | | | | | System - | | | | | | | [place] | | | | + + + +--------+ + + | ANION GAP | 2021-12-21 | [facility] | 8.0 | mmol/l | (missing) | | IN SER/PLAS | 12:00 | Health | | | | | | | System - | | | | | | | [place] | | | | + + + +--------+ + + | CALCIUM | 2021-12-21 | [facility] | 8.5 | mg/dl | (missing) | | (MG/DL) IN | 12:00 | Health | | | | | SER/PLAS | | System - | | | | | | | [place] | | | | + + + +--------+ + + | CALCIUM | 2021-12-21 | [facility] | 8.5 | mg/dl | (missing) | | (MG/DL) IN | 12:00 | Health | | | | | SER/PLAS | | System - | | | | | | | [place] | | | | + + + +--------+ + + | GLUCOSE, | 2021-12-21 | [facility] | 88 | mg/dl | (missing) | | RANDOM | 12:00 | Health | | | | | (MG/DL) IN | | System - | | | | | SER/PLAS | | [place] | | | | + + + +--------+ + + | GLUCOSE, | 2021-12-21 | [facility] | 88 | mg/dl | (missing) | | RANDOM | 12:00 | Health | | | | | (MG/DL) IN | | System - | | | | | SER/PLAS | | [place] | | | | + + + +--------+ + + | PLATELET | 2021-12-21 | [facility] | 9.9 | fl | (missing) | | MEAN VOLUME | 12:00 | Health | | | | | (FL) IN | | System - | | | | | BLOOD BY | | [place] | | | | | AUTOMATED | [...] | | | BLOOD BY | | [place] | | | | | AUTOMATED | [...] | | | VOLUME (FL) | | [place] | | | | | BY AUTOMATED [...] | | | VOLUME (FL) | | [place] | | | | | BY AUTOMATED [...] | | | | | | | [place] | | | | + + + + + + + | ALCOHOL | 2021-12-21 | [facility] | < | g/dl | (missing) | | (G/DL) IN | 12:01 | Health | | | | | SER/PLAS | | System - | | | | | | | [place] | | | | + + + + + + + | [facility] QUAL | 2021-12-21 | [facility] | Negative | (missing) | (missing) | | (CHORIOGONAD | 12:01 | Health | | | | | OTROPIN) IN | | System - | | | | | SER/PLAS | | [place] | | | | + + + + + + + | [facility] QUAL | 2021-12-21 | [facility] | Negative | (missing) | (missing) | | (CHORIOGONAD | 12:01 | Health | | | | | OTROPIN) IN | | System - | | | | | SER/PLAS | | [place] | | | | + + + + + + + + + | Result panel 59 | + + + + + + + + + | INFLUENZA A | 2021-12-21 | [facility] | Negative | (missing) | (missing) | | | 14:22 | Health | | | | | | | System - | | | | | | | [place] | | | | + + + + + + + | INFLUENZA B | 2021-12-21 | [facility] | Negative | (missing) | (missing) | | | 14:22 | Health | | | | | | | System - | | | | | | | [place] | | | | + + + + + + + | RSV | 2021-12-21 | [facility] | Negative | (missing) | (missing) | | | 14:22 | Health | | | | | | | System - | | | | | | | [place] | | | | + + + + + + + | SARS-COV-2 | 2021-12-21 | [facility] | Negative | (missing) | (missing) | | (COVID19) | 14:22 | Health | | | | | CEPHEID PCR | | System - | | | | | | | [place] | | | | + + + + + + + | INFLUENZA A | 2021-12-21 | [facility] | Negative | (missing) | (missing) | | | 14:22 | Health | | | | | | | System - | | | | | | | [place] | | | | + + + + + + + | INFLUENZA B | 2021-12-21 | [facility] | Negative | (missing) | (missing) | | | 14:22 | Health | | | | | | | System - | | | | | | | [place] | | | | + + + + + + + | RSV | 2021-12-21 | [facility] | Negative | (missing) | (missing) | | | 14:22 | Health | | | | | | | System - | | | | | | | [place] | | | | + + + + + + + | SARS-COV-2 | 2021-12-21 | [facility] | Negative | (missing) | (missing) | | (COVID19) | 14:22 | Health | | | | | CEPHEID PCR | | System - | | | | | | | [place] | | | | + + + + + + + + + | Result panel 60 | + + + + + + + + + | | 2022-01-15 | [facility] | (missing) | (missing) | (missing) | | (unavailable | 09:43 | Health | | | | | ) | | System - | | | | | | | [place] | | | | + + + + + + + | | 2022-01-15 | [facility] | 1. No | (missing) | (missing) | | (unavailable | 09:43 | Health | significant | | | | ) | | System - | radiographic | | | | | | [place] | abnormality | | | | | [...] osseous | | | | | | [place] | structures | | | | | [...] | | | | | | | [place] | | | | + + + + + + + | | 2022-01-15 | [facility] | Electronical | (missing) | (missing) | | (unavailable | 09:43 | Health | ly signed | | | | ) | | System - | by: Daniel Ochoa | | | | | | [place] | MD Kirt on | | | [...] | | | | | | | [place] | | | | + + + + + + + | | 2022-01-15 | [facility] | HEART: The | (missing) | (missing) | | (unavailable | 09:43 | Health | cardiac | | | | ) | | System - | silhouette | | | | | | [place] | is not | | | | | | | enlarged. | | | + + + + + + + | | 2022-01-15 | [facility] | | (missing) | (missing) | | (unavailable | 09:43 | Health | INDICATIONS: | | | | ) | | System - | Fever | | | | | | [place] | | | | + + + + + + + | | 2022-01-15 | [facility] | LUNGS/PLEURA | (missing) | (missing) | | (unavailable | 09:43 | Health | : The lungs | | | | ) | | System - | are clear | | | | | | [place] | without | | | | | [...] The | | | | | | [place] | mediastinum | | | | | [...] VIEWS | | | | | | [place] | | | | + + + + + + + | | 2022-01-15 | [facility] | | (missing) | (missing) | | (unavailable | 09:43 | Health | Procedure(s) | | | | ) | | System - | : * No | | | | | | [place] | procedures | | | | | [...] ? | | | RATE) | | [place] | | | | | ML/MIN/1.73 | [...] ? | | | RATE) | | [place] | | | | | ML/MIN/1.73 | [...] | | | | | | | [place] | | | | + + + + + + + | ALCOHOL | 2022-02-09 | [facility] | < | g/dl | (missing) | | (G/DL) IN | 09:20 | Health | | | | | SER/PLAS | | System - | | | | | | | [place] | | | | + + + + + + + | | 2022-02-09 | [facility] | < | mcg/ml | (missing) | | ACETAMINOPHE | 09:20 | Health | | | | | N (UG/ML) IN | | System - | | | | | SER/PLAS | | [place] | | | | + + + + + + + | | 2022-02-09 | [facility] | < | mcg/ml | (missing) | | ACETAMINOPHE | 09:20 | Health | | | | | N (UG/ML) IN | | System - | | | | | SER/PLAS | | [place] | | | | + + + + + + + | SALICYLATE | 2022-02-09 | [facility] | < | mg/dl | (missing) | | (MG/DL) IN | 09:20 | Health | | | | | SER/PLAS | | System - | | | | | | | [place] | | | | + + + + + + + | SALICYLATE | 2022-02-09 | [facility] | < | mg/dl | (missing) | | (MG/DL) IN | 09:20 | Health | | | | | SER/PLAS | | System - | | | | | | | [place] | | | | + + + + + + + | NRBC/100 | 2022-02-09 | [facility] | 0.0 | % | (missing) | | WBCS BY | 09:20 | Health | | | | | AUTOMATED | | System - | | | | | COUNT | | [place] | | | | + + + + + + + | NRBC/100 | 2022-02-09 | [facility] | 0.0 | % | (missing) | | WBCS BY | 09:20 | Health | | | | | AUTOMATED | | System - | | | | | COUNT | | [place] | | | | + + + + + + + | | 2022-02-09 | [facility] | 0.0 | k/mcl | (missing) | | NRBC(10*3/UL | 09:20 | Health | | | | | ) IN BLOOD | | System - | | | | | BY AUTOMATED | | [place] | | | | | COUNT | | | | | | + + + + + + + | | 2022-02-09 | [facility] | 0.0 | k/mcl | (missing) | | NRBC(10*3/UL | 09:20 | Health | | | | | ) IN BLOOD | | System - | | | | | BY AUTOMATED | | [place] | | | | | COUNT | | | | | | + + + + + + + | IMMATURE | 2022-02-09 | [facility] | 0.05 | k/mcl | (missing) | | GRANULOCYTE | 09:20 | Health | | | | | (ABS) | | System - | | | | | | | [place] | | | | + + + + + + + | IMMATURE | 2022-02-09 | [facility] | 0.05 | k/mcl | (missing) | | GRANULOCYTE | 09:20 | Health | | | | | (ABS) | | System - | | | | | | | [place] | | | | + + + + + + + | EOSINOPHILS | 2022-02-09 | [facility] | 0.1 | k/mcl | (missing) | | (10*3/UL) | 09:20 | Health | | | | | IN BLOOD BY | | System - | | | | | AUTOMATED | | [place] | | | | | COUNT | | | | | | + + + + + + + | EOSINOPHILS | 2022-02-09 | [facility] | 0.1 | k/mcl | (missing) | | (10*3/UL) | 09:20 | Health | | | | | IN BLOOD BY | | System - | | | | | AUTOMATED | | [place] | | | | | COUNT | | | | | | + + + + + + + | BASOPHILS | 2022-02-09 | [facility] | 0.2 | k/mcl | (missing) | | (10*3/UL) IN | 09:20 | Health | | | | | BLOOD BY | | System - | | | | | AUTOMATED | | [place] | | | | | COUNT | | | | | | + + + + + + + | BASOPHILS | 2022-02-09 | [facility] | 0.2 | k/mcl | (missing) | | (10*3/UL) IN | 09:20 | Health | | | | | BLOOD BY | | System - | | | | | AUTOMATED | | [place] | | | | | COUNT | | | | | | + + + + + + + | IMMATURE | 2022-02-09 | [facility] | 0.4 | % | (missing) | | GRANULOCYTE | 09:20 | Health | | | | | % (AUTO) | | System - | | | | | | | [place] | | | | + + + + + + + | | 2022-02-09 | [facility] | 0.4 | % | (missing) | | EOSINOPHILS/ | 09:20 | Health | | | | | 100 | | System - | | | | | LEUKOCYTES | | [place] | | | | | IN BLOOD [...] | | | | LEUKOCYTES | | [place] | | | | | IN BLOOD [...] | | | | | | | [place] | | | | + + + + + + + | BILIRUBIN | 2022-02-09 | [facility] | 0.6 | mg/dl | (missing) | | TOTAL | 09:20 | Health | | | | | (MG/DL) IN | | System - | | | | | SER/PLAS | | [place] | | | | + + + + + + + | BILIRUBIN | 2022-02-09 | [facility] | 0.6 | mg/dl | (missing) | | TOTAL | 09:20 | Health | | | | | (MG/DL) IN | | System - | | | | | SER/PLAS | | [place] | | | | + + + + + + + | MONOCYTES | 2022-02-09 | [facility] | 0.8 | k/mcl | (missing) | | (10*3/UL) IN | 09:20 | Health | | | | | BLOOD BY | | System - | | | | | AUTOMATED | | [place] | | | | | COUNT | | | | | | + + + + + + + | MONOCYTES | 2022-02-09 | [facility] | 0.8 | k/mcl | (missing) | | (10*3/UL) IN | 09:20 | Health | | | | | BLOOD BY | | System - | | | | | AUTOMATED | | [place] | | | | | COUNT | | | | | | + + + + + + + | CREATININE | 2022-02-09 | [facility] | 0.8 | mg/dl | (missing) | | (MG/DL) IN | 09:20 | Health | | | | | SER/PLAS | | System - | | | | | | | [place] | | | | + + + + + + + | CREATININE | 2022-02-09 | [facility] | 0.8 | mg/dl | (missing) | | (MG/DL) IN | 09:20 | Health | | | | | SER/PLAS | | System - | | | | | | | [place] | | | | + + + + + + + | | 2022-02-09 | [facility] | 1.1 | % | (missing) | | BASOPHILS/10 | 09:20 | Health | | | | | 0 LEUKOCYTES | | System - | | | | | IN BLOOD BY | | [place] | | | | | AUTOMATED | [...] | | IN BLOOD BY | | [place] | | | | | AUTOMATED | [...] | | | | | | | [place] | | | | + + + + + + + | CHLORIDE | 2022-02-09 | [facility] | 104 | mmol/l | (missing) | | (MMOL/L) IN | 09:20 | Health | | | | | SER/PLAS | | System - | | | | | | | [place] | | | | + + + + + + + | GLUCOSE, | 2022-02-09 | [facility] [facility] | 105 | mg/dl | (missing) | | RANDOM | 09:20 | Health | | | | | (MG/DL) IN | | System - | | | | | SER/PLAS | | [place] | | | | + + + + + + + | GLUCOSE, | 2022-02-09 | [facility] | 105 | mg/dl | (missing) | | RANDOM | 09:20 | Health | | | | | (MG/DL) IN | | System - | | | | | SER/PLAS | | [place] | | | | + + + + + + + | ASPARTATE | 2022-02-09 | [facility] | 112 | u/l | (missing) | | AMINOTRANSFE | 09:20 | Health | | | | | RASE (SGOT) | | System - | | | | | (U/L) IN | | [place] | | | | | SER/PLAS | | | | | | + + + + + + + | ASPARTATE | 2022-02-09 | [facility] | 112 | u/l | (missing) | | AMINOTRANSFE | 09:20 | Health | | | | | RASE (SGOT) | | System - | | | | | (U/L) IN | | [place] | | | | | SER/PLAS | | | | | | + + + + + + + | ERYTHROCYTE | 2022-02-09 | [facility] | 13.7 | % | (missing) | | | 09:20 | Health | | | | | DISTRIBUTION | | System - | | | | | WIDTH | | [place] | | | | | (RATIO) BY [...] | | | | WIDTH | | [place] | | | | | (RATIO) BY [...] | | | BLOOD BY | | [place] | | | | | AUTOMATED | [...] | | | BLOOD BY | | [place] | | | | | AUTOMATED | [...] | | | | | | | [place] | | | | + + + + + + + | HEMOGLOBIN | 2022-02-09 | [facility] | 14.6 | g/dl | (missing) | | (G/DL) IN | 09:20 | Health | | | | | BLOOD | | System - | | | | | | | [place] | | | | + + + + + + + | SODIUM | 2022-02-09 | [facility] | 142 | mmol/l | (missing) | | (MMOL/L) IN | 09:20 | Health | | | | | SER/PLAS | | System - | | | | | | | [place] | | | | + + + + + + + | SODIUM | 2022-02-09 | [facility] | 142 | mmol/l | (missing) | | (MMOL/L) IN | 09:20 | Health | | | | | SER/PLAS | | System - | | | | | | | [place] | | | | + + + + + + + | BLOOD UREA | 2022-02-09 | [facility] | 15 | mg/dl | (missing) | | NITROGEN | 09:20 | Health | | | | | (BUN) | | System - | | | | | (MG/DL) IN | | [place] | | | | | SER/PLAS | | | | | | + + + + + + + | BLOOD UREA | 2022-02-09 | [facility] | 15 | mg/dl | (missing) | | NITROGEN | 09:20 | Health | | | | | (BUN) | | System - | | | | | (MG/DL) IN | | [place] | | | | | SER/PLAS | | | | | | + + + + + + + | ANION GAP | 2022-02-09 | [facility] | 15.0 | mmol/l | (missing) | | IN SER/PLAS | 09:20 | Health | | | | | | | System - | | | | | | | [place] | | | | + + + + + + + | ANION GAP | 2022-02-09 | [facility] | 15.0 | mmol/l | (missing) | | IN SER/PLAS | 09:20 | Health | | | | | | | System - | | | | | | | [place] | | | | + + + + + + + | CARBON | 2022-02-09 | [facility] | 23 | mmol/l | (missing) | | DIOXIDE | 09:20 | Health | | | | | (CO2), TOTAL | | System - | | | | | (MMOL/L) IN | | [place] | | | | | SER/PLAS | | | | | | + + + + + + + | CARBON | 2022-02-09 | [facility] | 23 | mmol/l | (missing) | | DIOXIDE | 09:20 | Health | | | | | (CO2), TOTAL | | System - | | | | | (MMOL/L) IN | | [place] | | | | | SER/PLAS | | | | | | + + + + + + + | | 2022-02-09 | [facility] | 29.3 | % | (missing) | | LYMPHOCYTES/ | 09:20 | Health | | | | | 100 | | System - | | | | | LEUKOCYTES | | [place] | | | | | IN BLOOD [...] | | | | LEUKOCYTES | | [place] | | | | | IN BLOOD [...] | | | | HEMOGLOBIN | | [place] | | | | | (PG) BY [...] | | | | HEMOGLOBIN | | [place] | | | | | (PG) BY [...] | | | | | | | [place] | | | | + + + + + + + | POTASSIUM | 2022-02-09 | [facility] | 3.1 | mmol/l | (missing) | | (MMOL/L) IN | 09:20 | Health | | | | | SER/PLAS | | System - | | | | | | | [place] | | | | + + + + + + + | PLATELETS | 2022-02-09 | [facility] | 324 | k/mcl | (missing) | | (10*3/UL) IN | 09:20 | Health | | | | | BLOOD | | System - | | | | | AUTOMATED | | [place] | | | | | COUNT | | | | | | + + + + + + + | PLATELETS | 2022-02-09 | [facility] | 324 | k/mcl | (missing) | | (10*3/UL) IN | 09:20 | Health | | | | | BLOOD | | System - | | | | | AUTOMATED | | [place] | | | | | COUNT | | | | | | + + + + + + + | ERYTHROCYTE | 2022-02-09 | [facility] | 33.6 | g/dl | (missing) | | MEAN | 09:20 | Health | | | | | CORPUSCULAR | | System - | | | | | HEMOGLOBIN | | [place] | | | | | CONCENTRATIO | [...] | | | | HEMOGLOBIN | | [place] | | | | | CONCENTRATIO | [...] | | | | AUTOMATED | | [place] | | | | | COUNT | | | | | | + + + + + + + | LYMPHOCYTES | 2022-02-09 | [facility] | 4.1 | k/mcl | (missing) | | (10*3/UL) | 09:20 | Health | | | | | IN BLOOD BY | | System - | | | | | AUTOMATED | | [place] | | | | | COUNT | | | | | | + + + + + + + | ALBUMIN | 2022-02-09 | [facility] | 4.4 | g/dl | (missing) | | (G/DL) IN | 09:20 | Health | | | | | SER/PLAS | | System - | | | | | | | [place] | | | | + + + + + + + | ALBUMIN | 2022-02-09 | [facility] | 4.4 | g/dl | (missing) | | (G/DL) IN | 09:20 | Health | | | | | SER/PLAS | | System - | | | | | | | [place] | | | | + + + + + + + | | 2022-02-09 | [facility] | 4.94 | m/mcl | (missing) | | ERYTHROCYTES | 09:20 | Health | | | | | (10*6/UL) | | System - | | | | | IN BLOOD BY | | [place] | | | | | AUTOMATED | [...] | | IN BLOOD BY | | [place] | | | | | AUTOMATED | [...] | | | | AUTOMATED | | [place] | | | | | COUNT | | | | | | + + + + + + + | HEMATOCRIT | 2022-02-09 | [facility] | 43.4 | % | (missing) | | (%) IN BLOOD | 09:20 | Health | | | | | BY | | System - | | | | | AUTOMATED | | [place] | | | | | COUNT | | | | | | + + + + + + + | | 2022-02-09 | [facility] | 5.7 | % | (missing) | | MONOCYTES/10 | 09:20 | Health | | | | | 0 LEUKOCYTES | | System - | | | | | IN BLOOD BY | | [place] | | | | | AUTOMATED | [...] | | IN BLOOD BY | | [place] | | | | | AUTOMATED | [...] | | | (U/L) IN | | [place] | | | | | SER/PLAS | | | | | | + + + + + + + | ALANINE | 2022-02-09 | [facility] | 53 | u/l | (missing) | | AMINOTRANSFE | 09:20 | Health | | | | | RASE (SGPT) | | System - | | | | | (U/L) IN | | [place] | | | | | SER/PLAS | | | | | | + + + + + + + | | 2022-02-09 | [facility] | 63.1 | % | (missing) | | NEUTROPHILS/ | 09:20 | Health | | | | | 100 | | System - | | | | | LEUKOCYTES | | [place] | | | | | IN BLOOD [...] | | | | LEUKOCYTES | | [place] | | | | | IN BLOOD [...] | | | | | | | [place] | | | | + + + + + + + | PROTEIN | 2022-02-09 | [facility] | 7.1 | g/dl | (missing) | | (G/DL) IN | 09:20 | Health | | | | | SER/PLAS | | System - | | | | | | | [place] | | | | + + + + + + + | ALKALINE | 2022-02-09 | [facility] | 78 | u/l | (missing) | | PHOSPHATASE | 09:20 | Health | | | | | (U/L) IN | | System - | | | | | SER/PLAS | | [place] | | | | + + + + + + + | ALKALINE | 2022-02-09 | [facility] | 78 | u/l | (missing) | | PHOSPHATASE | 09:20 | Health | | | | | (U/L) IN | | System - | | | | | SER/PLAS | | [place] | | | | + + + + + + + | NEUTROPHILS | 2022-02-09 | [facility] | 8.9 | k/mcl | (missing) | | (10*3/UL) | 09:20 | Health | | | | | IN BLOOD BY | | System - | | | | | AUTOMATED | | [place] | | | | | COUNT | | | | | | + + + + + + + | NEUTROPHILS | 2022-02-09 | [facility] | 8.9 | k/mcl | (missing) | | (10*3/UL) | 09:20 | Health | | | | | IN BLOOD BY | | System - | | | | | AUTOMATED | | [place] | | | | | COUNT | | | | | | + + + + + + + | ERYTHROCYTE | 2022-02-09 | [facility] | 87.9 | fl | (missing) | | MEAN | 09:20 | Health | | | | | CORPUSCULAR | | System - | | | | | VOLUME (FL) | | [place] | | | | | BY AUTOMATED [...] | | | VOLUME (FL) | | [place] | | | | | BY AUTOMATED [...] | | | BLOOD BY | | [place] | | | | | AUTOMATED | [...] | | | BLOOD BY | | [place] | | | | | AUTOMATED | [...] | | | | | | | [place] | | | | + + + + + + + | CALCIUM | 2022-02-09 | [facility] | 9.2 | mg/dl | (missing) | | (MG/DL) IN | 09:20 | Health | | | | | SER/PLAS | | System - | | | | | | | [place] | | | | + + + + + + + | | 2022-02-09 | [facility] | Negative | (missing) | (missing) | | BARBITURATES | 09:20 | Health | | | | | PRESENCE IN | | System - | | | | | URINE BY | | [place] | | | | | SCREEN | [...] | | | | (PRESENCE) | | [place] | | | | | IN URINE [...] | | | | SCREEN | | [place] | | | | | METHOD | | | | | | + + + + + + + | INFLUENZA A | 2022-02-09 | [facility] | Negative | (missing) | (missing) | | | 09:20 | Health | | | | | | | System - | | | | | | | [place] | | | | + + + + + + + | INFLUENZA B | 2022-02-09 | [facility] | Negative | (missing) | (missing) | | | 09:20 | Health | | | | | | | System - | | | | | | | [place] | | | | + + + + + + + | METHADONE | 2022-02-09 | [facility] | Negative | (missing) | (missing) | | (PRESENCE) | 09:20 | Health | | | | | IN URINE BY | | System - | | | | | SCREEN | | [place] | | | | | METHOD | | | | | | + + + + + + + | OPIATES | 2022-02-09 | [facility] | Negative | (missing) | (missing) | | (PRESENCE) | 09:20 | Health | | | | | IN URINE BY | | System - | | | | | SCREEN | | [place] | | | | | METHOD | | | | | | + + + + + + + | OXYCODONE | 2022-02-09 | [facility] | Negative | (missing) | (missing) | | (PRESENCE) | 09:20 | Health | | | | | IN URINE BY | | System - | | | | | SCREEN | | [place] | | | | | METHOD | | | | | | + + + + + + + | | 2022-02-09 | [facility] | Negative | (missing) | (missing) | | PHENCYCLIDIN | 09:20 | Health | | | | | E (PRESENCE) | | System - | | | | | IN URINE BY | | [place] | | | | | SCREEN | | | | | | | METHOD | | | | | | + + + + + + + | RSV | 2022-02-09 | [facility] | Negative | (missing) | (missing) | | | 09:20 | Health | | | | | | | System - | | | | | | | [place] | | | | + + + + + + + | SARS-COV-2 | 2022-02-09 | [facility] | Negative | (missing) | (missing) | | (COVID19) | 09:20 | Health | | | | | CEPHEID PCR | | System - | | | | | | | [place] | | | | + + + + + + + | TRICYCLIC | 2022-02-09 | [facility] | Negative | (missing) | (missing) | | ANTIDEPRESSA | 09:20 | Health | | | | | NTS | | System - | | | | | (PRESENCE) | | [place] | | | | | IN URINE | | | | | | + + + + + + + | | 2022-02-09 | [facility] | Negative | (missing) | (missing) | | PHENCYCLIDIN | 09:20 | Health | | | | | E (PRESENCE) | | System - | | | | | IN URINE BY | | [place] | | | | | SCREEN | [...] | | | | SCREEN | | [place] | | | | | METHOD | | | | | | + + + + + + + | TRICYCLIC | 2022-02-09 | [facility] | Negative | (missing) | (missing) | | ANTIDEPRESSA | 09:20 | Health | | | | | NTS | | System - | | | | | (PRESENCE) | | [place] | | | | | IN URINE | | | | | | + + + + + + + | OXYCODONE | 2022-02-09 | [facility] | Negative | (missing) | (missing) | | (PRESENCE) | 09:20 | Health | | | | | IN URINE BY | | System - | | | | | SCREEN | | [place] | | | | | METHOD | | | | | | + + + + + + + | BHCG QUAL | 2022-02-09 | [facility] | Negative | (missing) | (missing) | | (CHORIOGONAD | 09:20 | Health | | | | | OTROPIN) IN | | System - | | | | | SER/PLAS | | [place] | | | | + + + + + + + | INFLUENZA A | 2022-02-09 | [facility] | Negative | (missing) | (missing) | | | 09:20 | Health | | | | | | | System - | | | | | | | [place] | | | | + + + + + + + | INFLUENZA B | 2022-02-09 | [facility] | Negative | (missing) | (missing) | | | 09:20 | Health | | | | | | | System - | | | | | | | [place] | | | | + + + + + + + | RSV | 2022-02-09 | [facility] | Negative | (missing) | (missing) | | | 09:20 | Health | | | | | | | System - | | | | | | | [place] | | | | + + + + + + + | COCAINE | 2022-02-09 | [facility] | Negative | (missing) | (missing) | | (PRESENCE) | 09:20 | Health | | | | | IN URINE BY | | System - | | | | | SCREEN | | [place] | | | | | METHOD | | | | | | + + + + + + + | | 2022-02-09 | [facility] | Negative | (missing) | (missing) | | BARBITURATES | 09:20 | Health | | | | | PRESENCE IN | | System - | | | | | URINE BY | | [place] | | | | | SCREEN | [...] | | | | (PRESENCE) | | [place] | | | | | IN URINE [...] | | | | SCREEN | | [place] | | | | | METHOD | | | | | | + + + + + + + | SARS-COV-2 | 2022-02-09 | [facility] | Negative | (missing) | (missing) | | (COVID19) | 09:20 | Health | | | | | CEPHEID PCR | | System - | | | | | | | [place] | | | | + + + + + + + | BHCG QUAL | 2022-02-09 | [facility] | Negative | (missing) | (missing) | | (CHORIOGONAD | 09:20 | Health | | | | | OTROPIN) IN | | System - | | | | | SER/PLAS | | [place] | | | | + + + + + + + | | 2022-02-09 | [facility] | Presumptive | (missing) | (missing) | | METHAMPHETAM | 09:20 | Health | Positive | | | | INE | | System - | | | | | (PRESENCE) | | [place] | | | | | IN URINE [...] | | | BY SCREEN | | [place] | | | | | METHOD | | | | | | + + + + + + + | THC | 2022-02-09 | [facility] | Presumptive | (missing) | (missing) | | (CANNABINOID | 09:20 | Health | Positive | | | | ) IN URINE | | System - | | | | | BY SCREEN | | [place] | | | | | METHOD | | | | | | + + + + + + + | AMPHETAMINE | 2022-02-09 | [facility] | Presumptive | (missing) | (missing) | | (PRESENCE) | 09:20 | Health | Positive | | | | IN URINE BY | | System - | | | | | SCREEN | | [place] | | | | | METHOD | | | | | | + + + + + + + | | 2022-02-09 | [facility] | Presumptive | (missing) | (missing) | | METHAMPHETAM | 09:20 | Health | Positive | | | | INE | | System - | | | | | (PRESENCE) | | [place] | | | | | IN URINE [...] | | | | SCREEN | | [place] | | | | | METHOD | [...] ? | | | RATE) | | [place] | | | | | ML/MIN/1.73 | [...] ? | | | RATE) | | [place] | | | | | ML/MIN/1.73 | [...] | | | | | | | [place] | | | | + + + + + + + | ALCOHOL | 2022-03-19 | [facility] | < | g/dl | (missing) | | (G/DL) IN | 07:10 | Health | | | | | SER/PLAS | | System - | | | | | | | [place] | | | | + + + + + + + | | 2022-03-19 | [facility] | < | mcg/ml | (missing) | | ACETAMINOPHE | 07:10 | Health | | | | | N (UG/ML) IN | | System - | | | | | SER/PLAS | | [place] | | | | + + + + + + + | | 2022-03-19 | [facility] | < | mcg/ml | (missing) | | ACETAMINOPHE | 07:10 | Health | | | | | N (UG/ML) IN | | System - | | | | | SER/PLAS | | [place] | | | | + + + + + + + | SALICYLATE | 2022-03-19 | [facility] | < | mg/dl | (missing) | | (MG/DL) IN | 07:10 | Health | | | | | SER/PLAS | | System - | | | | | | | [place] | | | | + + + + + + + | SALICYLATE | 2022-03-19 | [facility] | < | mg/dl | (missing) | | (MG/DL) IN | 07:10 | Health | | | | | SER/PLAS | | System - | | | | | | | [place] | | | | + + + + + + + | NRBC/100 | 2022-03-19 | [facility] | 0.0 | % | (missing) | | WBCS BY | 07:10 | Health | | | | | AUTOMATED | | System - | | | | | COUNT | | [place] | | | | + + + + + + + | NRBC/100 | 2022-03-19 | [facility] | 0.0 | % | (missing) | | WBCS BY | 07:10 | Health | | | | | AUTOMATED | | System - | | | | | COUNT | | [place] | | | | + + + + + + + | | 2022-03-19 | [facility] | 0.0 | k/mcl | (missing) | | NRBC(10*3/UL | 07:10 | Health | | | | | ) IN BLOOD | | System - | | | | | BY AUTOMATED | | [place] | | | | | COUNT | | | | | | + + + + + + + | EOSINOPHILS | 2022-03-19 | [facility] | 0.0 | k/mcl | (missing) | | (10*3/UL) | 07:10 | Health | | | | | IN BLOOD BY | | System - | | | | | AUTOMATED | | [place] | | | | | COUNT | | | | | | + + + + + + + | EOSINOPHILS | 2022-03-19 | [facility] | 0.0 | k/mcl | (missing) | | (10*3/UL) | 07:10 | Health | | | | | IN BLOOD BY | | System - | | | | | AUTOMATED | | [place] | | | | | COUNT | | | | | | + + + + + + + | | 2022-03-19 | [facility] | 0.0 | k/mcl | (missing) | | NRBC(10*3/UL | 07:10 | Health | | | | | ) IN BLOOD | | System - | | | | | BY AUTOMATED | | [place] | | | | | COUNT | | | | | | + + + + + + + | IMMATURE | 2022-03-19 | [facility] | 0.06 | k/mcl | (missing) | | GRANULOCYTE | 07:10 | Health | | | | | (ABS) | | System - | | | | | | | [place] | | | | + + + + + + + | IMMATURE | 2022-03-19 | [facility] | 0.06 | k/mcl | (missing) | | GRANULOCYTE | 07:10 | Health | | | | | (ABS) | | System - | | | | | | | [place] | | | | + + + + + + + | BASOPHILS | 2022-03-19 | [facility] | 0.1 | k/mcl | (missing) | | (10*3/UL) IN | 07:10 | Health | | | | | BLOOD BY | | System - | | | | | AUTOMATED | | [place] | | | | | COUNT | | | | | | + + + + + + + | BASOPHILS | 2022-03-19 | [facility] | 0.1 | k/mcl | (missing) | | (10*3/UL) IN | 07:10 | Health | | | | | BLOOD BY | | System - | | | | | AUTOMATED | | [place] | | | | | COUNT | | | | | | + + + + + + + | | 2022-03-19 | [facility] | 0.2 | % | (missing) | | EOSINOPHILS/ | 07:10 | Health | | | | | 100 | | System - | | | | | LEUKOCYTES | | [place] | | | | | IN BLOOD [...] | | | | LEUKOCYTES | | [place] | | | | | IN BLOOD [...] | | | | SER/PLAS | | [place] | | | | + + + + + + + | BILIRUBIN | 2022-03-19 | [facility] | 0.6 | mg/dl | (missing) | | TOTAL | 07:10 | Health | | | | | (MG/DL) IN | | System - | | | | | SER/PLAS | | [place] | | | | + + + + + + + | IMMATURE | 2022-03-19 | [facility] | 0.7 | % | (missing) | | GRANULOCYTE | 07:10 | Health | | | | | % (AUTO) | | System - | | | | | | | [place] | | | | + + + + + + + | IMMATURE | 2022-03-19 | [facility] | 0.7 | % | (missing) | | GRANULOCYTE | 07:10 | Health | | | | | % (AUTO) | | System - | | | | | | | [place] | | | | + + + + + + + | MONOCYTES | 2022-03-19 | [facility] | 0.7 | k/mcl | (missing) | | (10*3/UL) IN | 07:10 | Health | | | | | BLOOD BY | | System - | | | | | AUTOMATED | | [place] | | | | | COUNT | | | | | | + + + + + + + | MONOCYTES | 2022-03-19 | [facility] | 0.7 | k/mcl | (missing) | | (10*3/UL) IN | 07:10 | Health | | | | | BLOOD BY | | System - | | | | | AUTOMATED | | [place] | | | | | COUNT | | | | | | + + + + + + + | CREATININE | 2022-03-19 | [facility] | 0.7 | mg/dl | (missing) | | (MG/DL) IN | 07:10 | Health | | | | | SER/PLAS | | System - | | | | | | | [place] | | | | + + + + + + + | CREATININE | 2022-03-19 | [facility] | 0.7 | mg/dl | (missing) | | (MG/DL) IN | 07:10 | Health | | | | | SER/PLAS | | System - | | | | | | | [place] | | | | + + + + + + + | | 2022-03-19 | [facility] | 0.8 | % | (missing) | | BASOPHILS/10 | 07:10 | Health | | | | | 0 LEUKOCYTES | | System - | | | | | IN BLOOD BY | | [place] | | | | | AUTOMATED | [...] | | IN BLOOD BY | | [place] | | | | | AUTOMATED | [...] | | | IN SER/PLAS | | [place] | | | | + + + + + + + | TSH | 2022-03-19 | [facility] | 1.18 | mciu/ml | (missing) | | (THYROTROPIN | 07:10 | Health | | | | | ) (UIU/ML) | | System - | | | | | IN SER/PLAS | | [place] | | | | + + + + + + + | BLOOD UREA | 2022-03-19 | [facility] | 10 | mg/dl | (missing) | | NITROGEN | 07:10 | Health | | | | | (BUN) | | System - | | | | | (MG/DL) IN | | [place] | | | | | SER/PLAS | | | | | | + + + + + + + | BLOOD UREA | 2022-03-19 | [facility] | 10 | mg/dl | (missing) | | NITROGEN | 07:10 | Health | | | | | (BUN) | | System - | | | | | (MG/DL) IN | | [place] | | | | | SER/PLAS | | | | | | + + + + + + + | CHLORIDE | 2022-03-19 | [facility] | 105 | mmol/l | (missing) | | (MMOL/L) IN | 07:10 | Health | | | | | SER/PLAS | | System - | | | | | | | [place] | | | | + + + + + + + | CHLORIDE | 2022-03-19 | [facility] | 105 | mmol/l | (missing) | | (MMOL/L) IN | 07:10 | Health | | | | | SER/PLAS | | System - | | | | | | | [place] | | | | + + + + + + + | ERYTHROCYTE | 2022-03-19 | [facility] | 13.7 | % | (missing) | | | 07:10 | Health | | | | | DISTRIBUTION | | System - | | | | | WIDTH | | [place] | | | | | (RATIO) BY [...] | | | | WIDTH | | [place] | | | | | (RATIO) BY [...] | | | | | | | [place] | | | | + + + + + + + | HEMOGLOBIN | 2022-03-19 | [facility] | 14.8 | g/dl | (missing) | | (G/DL) IN | 07:10 | Health | | | | | BLOOD | | System - | | | | | | | [place] | | | | + + + + + + + | SODIUM | 2022-03-19 | [facility] | 141 | mmol/l | (missing) | | (MMOL/L) IN | 07:10 | Health | | | | | SER/PLAS | | System - | | | | | | | [place] | | | | + + + + + + + | SODIUM | 2022-03-19 | [facility] | 141 | mmol/l | (missing) | | (MMOL/L) IN | 07:10 | Health | | | | | SER/PLAS | | System - | | | | | | | [place] | | | | + + + + + + + | GLUCOSE, | 2022-03-19 | [facility] | 149 | mg/dl | (missing) | | RANDOM | 07:10 | Health | | | | | (MG/DL) IN | | System - | | | | | SER/PLAS | | [place] | | | | + + + + + + + | GLUCOSE, | 2022-03-19 | [facility] | 149 | mg/dl | (missing) | | RANDOM | 07:10 | Health | | | | | (MG/DL) IN | | System - | | | | | SER/PLAS | | [place] | | | | + + + + + + + | ANION GAP | 2022-03-19 | [facility] | 16.0 | mmol/l | (missing) | | IN SER/PLAS | 07:10 | Health | | | | | | | System - | | | | | | | [place] | | | | + + + + + + + | ANION GAP | 2022-03-19 | [facility] | 16.0 | mmol/l | (missing) | | IN SER/PLAS | 07:10 | Health | | | | | | | System - | | | | | | | [place] | | | | + + + + + + + | CARBON | 2022-03-19 | [facility] | 20 | mmol/l | (missing) | | DIOXIDE | 07:10 | Health | | | | | (CO2), TOTAL | | System - | | | | | (MMOL/L) IN | | [place] | | | | | SER/PLAS | | | | | | + + + + + + + | CARBON | 2022-03-19 | [facility] | 20 | mmol/l | (missing) | | DIOXIDE | 07:10 | Health | | | | | (CO2), TOTAL | | System - | | | | | (MMOL/L) IN | | [place] | | | | | SER/PLAS | | | | | | + + + + + + + | ASPARTATE | 2022-03-19 | [facility] | 26 | u/l | (missing) | | AMINOTRANSFE | 07:10 | Health | | | | | RASE (SGOT) | | System - | | | | | (U/L) IN | | [place] | | | | | SER/PLAS | | | | | | + + + + + + + | ASPARTATE | 2022-03-19 | [facility] | 26 | u/l | (missing) | | AMINOTRANSFE | 07:10 | Health | | | | | RASE (SGOT) | | System - | | | | | (U/L) IN | | [place] | | | | | SER/PLAS | | | | | | + + + + + + + | ERYTHROCYTE | 2022-03-19 | [facility] | 29.7 | pg | (missing) | | MEAN | 07:10 | Health | | | | | CORPUSCULAR | | System - | | | | | HEMOGLOBIN | | [place] | | | | | (PG) BY [...] | | | | HEMOGLOBIN | | [place] | | | | | (PG) BY [...] | | | | AUTOMATED | | [place] | | | | | COUNT | | | | | | + + + + + + + | LYMPHOCYTES | 2022-03-19 | [facility] | 3.2 | k/mcl | (missing) | | (10*3/UL) | 07:10 | Health | | | | | IN BLOOD BY | | System - | | | | | AUTOMATED | | [place] | | | | | COUNT | | | | | | + + + + + + + | POTASSIUM | 2022-03-19 | [facility] | 3.3 | mmol/l | (missing) | | (MMOL/L) IN | 07:10 | Health | | | | | SER/PLAS | | System - | | | | | | | [place] | | | | + + + + + + + | POTASSIUM | 2022-03-19 | [facility] | 3.3 | mmol/l | (missing) | | (MMOL/L) IN | 07:10 | Health | | | | | SER/PLAS | | System - | | | | | | | [place] | | | | + + + + + + + | ERYTHROCYTE | 2022-03-19 | [facility] | 34.3 | g/dl | (missing) | | MEAN | 07:10 | Health | | | | | CORPUSCULAR | | System - | | | | | HEMOGLOBIN | | [place] | | | | | CONCENTRATIO | [...] | | | | HEMOGLOBIN | | [place] | | | | | CONCENTRATIO | [...] | | | | LEUKOCYTES | | [place] | | | | | IN BLOOD [...] | | | | LEUKOCYTES | | [place] | | | | | IN BLOOD [...] | | | | AUTOMATED | | [place] | | | | | COUNT | | | | | | + + + + + + + | PLATELETS | 2022-03-19 | [facility] | 395 | k/mcl | (missing) | | (10*3/UL) IN | 07:10 | Health | | | | | BLOOD | | System - | | | | | AUTOMATED | | [place] | | | | | COUNT | | | | | | + + + + + + + | ALBUMIN | 2022-03-19 | [facility] | 4.2 | g/dl | (missing) | | (G/DL) IN | 07:10 | Health | | | | | SER/PLAS | | System - | | | | | | | [place] | | | | + + + + + + + | ALBUMIN | 2022-03-19 | [facility] | 4.2 | g/dl | (missing) | | (G/DL) IN | 07:10 | Health | | | | | SER/PLAS | | System - | | | | | | | [place] | | | | + + + + + + + | | 2022-03-19 | [facility] | 4.99 | m/mcl | (missing) | | ERYTHROCYTES | 07:10 | Health | | | | | (10*6/UL) | | System - | | | | | IN BLOOD BY | | [place] | | | | | AUTOMATED | [...] | | IN BLOOD BY | | [place] | | | | | AUTOMATED | [...] | | | | AUTOMATED | | [place] | | | | | COUNT | | | | | | + + + + + + + | HEMATOCRIT | 2022-03-19 | [facility] | 43.2 | % | (missing) | | (%) IN BLOOD | 07:10 | Health | | | | | BY | | System - | | | | | AUTOMATED | | [place] | | | | | COUNT | | | | | | + + + + + + + | ALANINE | 2022-03-19 | [facility] | 44 | u/l | (missing) | | AMINOTRANSFE | 07:10 | Health | | | | | RASE (SGPT) | | System - | | | | | (U/L) IN | | [place] | | | | | SER/PLAS | | | | | | + + + + + + + | ALANINE | 2022-03-19 | [facility] | 44 | u/l | (missing) | | AMINOTRANSFE | 07:10 | Health | | | | | RASE (SGPT) | | System - | | | | | (U/L) IN | | [place] | | | | | SER/PLAS | | | | | | + + + + + + + | NEUTROPHILS | 2022-03-19 | [facility] | 5.1 | k/mcl | (missing) | | (10*3/UL) | 07:10 | Health | | | | | IN BLOOD BY | | System - | | | | | AUTOMATED | | [place] | | | | | COUNT | | | | | | + + + + + + + | NEUTROPHILS | 2022-03-19 | [facility] | 5.1 | k/mcl | (missing) | | (10*3/UL) | 07:10 | Health | | | | | IN BLOOD BY | | System - | | | | | AUTOMATED | | [place] | | | | | COUNT | | | | | | + + + + + + + | | 2022-03-19 | [facility] | 56.1 | % | (missing) | | NEUTROPHILS/ | 07:10 | Health | | | | | 100 | | System - | | | | | LEUKOCYTES | | [place] | | | | | IN BLOOD [...] | | | | LEUKOCYTES | | [place] | | | | | IN BLOOD [...] | | | | | | | [place] | | | | + + + + + + + | PROTEIN | 2022-03-19 | [facility] | 6.6 | g/dl | (missing) | | (G/DL) IN | 07:10 | Health | | | | | SER/PLAS | | System - | | | | | | | [place] | | | | + + + + + + + | | 2022-03-19 | [facility] | 7.5 | % | (missing) | | MONOCYTES/10 | 07:10 | Health | | | | | 0 LEUKOCYTES | | System - | | | | | IN BLOOD BY | | [place] | | | | | AUTOMATED | [...] | | IN BLOOD BY | | [place] | | | | | AUTOMATED | [...] | | | | | | | [place] | | | | + + + + + + + | CALCIUM | 2022-03-19 | [facility] | 8.9 | mg/dl | (missing) | | (MG/DL) IN | 07:10 | Health | | | | | SER/PLAS | | System - | | | | | | | [place] | | | | + + + + + + + | ALKALINE | 2022-03-19 | [facility] | 83 | u/l | (missing) | | PHOSPHATASE | 07:10 | Health | | | | | (U/L) IN | | System - | | | | | SER/PLAS | | [place] | | | | + + + + + + + | ALKALINE | 2022-03-19 | [facility] | 83 | u/l | (missing) | | PHOSPHATASE | 07:10 | Health | | | | | (U/L) IN | | System - | | | | | SER/PLAS | | [place] | | | | + + + + + + + | ERYTHROCYTE | 2022-03-19 | [facility] | 86.6 | fl | (missing) | | MEAN | 07:10 | Health | | | | | CORPUSCULAR | | System - | | | | | VOLUME (FL) | | [place] | | | | | BY AUTOMATED [...] | | | VOLUME (FL) | | [place] | | | | | BY AUTOMATED [...] | | | BLOOD BY | | [place] | | | | | AUTOMATED | [...] | | | BLOOD BY | | [place] | | | | | AUTOMATED | [...] | | | BLOOD BY | | [place] | | | | | AUTOMATED | [...] | | | BLOOD BY | | [place] | | | | | AUTOMATED | [...] | | | URINE BY | | [place] | | | | | SCREEN | [...] | | | | (PRESENCE) | | [place] | | | | | IN URINE [...] | | | | SCREEN | | [place] | | | | | METHOD | | | | | | + + + + + + + | INFLUENZA A | 2022-03-19 | [facility] | Negative | (missing) | (missing) | | | 07:10 | Health | | | | | | | System - | | | | | | | [place] | | | | + + + + + + + | INFLUENZA B | 2022-03-19 | [facility] | Negative | (missing) | (missing) | | | 07:10 | Health | | | | | | | System - | | | | | | | [place] | | | | + + + + + + + | METHADONE | 2022-03-19 | [facility] | Negative | (missing) | (missing) | | (PRESENCE) | 07:10 | Health | | | | | IN URINE BY | | System - | | | | | SCREEN | | [place] | | | | | METHOD | | | | | | + + + + + + + | OPIATES | 2022-03-19 | [facility] | Negative | (missing) | (missing) | | (PRESENCE) | 07:10 | Health | | | | | IN URINE BY | | System - | | | | | SCREEN | | [place] | | | | | METHOD | | | | | | + + + + + + + | OXYCODONE | 2022-03-19 | [facility] | Negative | (missing) | (missing) | | (PRESENCE) | 07:10 | Health | | | | | IN URINE BY | | System - | | | | | SCREEN | | [place] | | | | | METHOD | | | | | | + + + + + + + | | 2022-03-19 | [facility] | Negative | (missing) | (missing) | | PHENCYCLIDIN | 07:10 | Health | | | | | E (PRESENCE) | | System - | | | | | IN URINE BY | | [place] | | | | | SCREEN | | | | | | | METHOD | | | | | | + + + + + + + | RSV | 2022-03-19 | [facility] | Negative | (missing) | (missing) | | | 07:10 | Health | | | | | | | System - | | | | | | | [place] | | | | + + + + + + + | SARS-COV-2 | 2022-03-19 | [facility] | Negative | (missing) | (missing) | | (COVID19) | 07:10 | Health | | | | | CEPHEID PCR | | System - | | | | | | | [place] | | | | + + + + + + + | TRICYCLIC | 2022-03-19 | [facility] | Negative | (missing) | (missing) | | ANTIDEPRESSA | 07:10 | Health | | | | | NTS | | System - | | | | | (PRESENCE) | | [place] | | | | | IN URINE | | | | | | + + + + + + + | | 2022-03-19 | [facility] | Negative | (missing) | (missing) | | PHENCYCLIDIN | 07:10 | Health | | | | | E (PRESENCE) | | System - | | | | | IN URINE BY | | [place] | | | | | SCREEN | [...] | | | | SCREEN | | [place] | | | | | METHOD | | | | | | + + + + + + + | TRICYCLIC | 2022-03-19 | [facility] | Negative | (missing) | (missing) | | ANTIDEPRESSA | 07:10 | Health | | | | | NTS | | System - | | | | | (PRESENCE) | | [place] | | | | | IN URINE | | | | | | + + + + + + + | OXYCODONE | 2022-03-19 | [facility] | Negative | (missing) | (missing) | | (PRESENCE) | 07:10 | Health | | | | | IN URINE BY | | System - | | | | | SCREEN | | [place] | | | | | METHOD | | | | | | + + + + + + + | BHCG QUAL | 2022-03-19 | [facility] | Negative | (missing) | (missing) | | (CHORIOGONAD | 07:10 | Health | | | | | OTROPIN) IN | | System - | | | | | SER/PLAS | | [place] | | | | + + + + + + + | INFLUENZA A | 2022-03-19 | [facility] | Negative | (missing) | (missing) | | | 07:10 | Health | | | | | | | System - | | | | | | | [place] | | | | + + + + + + + | INFLUENZA B | 2022-03-19 | [facility] | Negative | (missing) | (missing) | | | 07:10 | Health | | | | | | | System - | | | | | | | [place] | | | | + + + + + + + | RSV | 2022-03-19 | [facility] | Negative | (missing) | (missing) | | | 07:10 | Health | | | | | | | System - | | | | | | | [place] | | | | + + + + + + + | COCAINE | 2022-03-19 | [facility] | Negative | (missing) | (missing) | | (PRESENCE) | 07:10 | Health | | | | | IN URINE BY | | System - | | | | | SCREEN | | [place] | | | | | METHOD | | | | | | + + + + + + + | | 2022-03-19 | [facility] | Negative | (missing) | (missing) | | BARBITURATES | 07:10 | Health | | | | | PRESENCE IN | | System - | | | | | URINE BY | | [place] | | | | | SCREEN | [...] | | | | (PRESENCE) | | [place] | | | | | IN URINE [...] | | | | SCREEN | | [place] | | | | | METHOD | | | | | | + + + + + + + | SARS-COV-2 | 2022-03-19 | [facility] | Negative | (missing) | (missing) | | (COVID19) | 07:10 | Health | | | | | CEPHEID PCR | | System - | | | | | | | [place] | | | | + + + + + + + | BHCG QUAL | 2022-03-19 | [facility] | Negative | (missing) | (missing) | | (CHORIOGONAD | 07:10 | Health | | | | | OTROPIN) IN | | System - | | | | | SER/PLAS | | [place] | | | | + + + + + + + | | 2022-03-19 | [facility] | Presumptive | (missing) | (missing) | | METHAMPHETAM | 07:10 | Health | Positive | | | | INE | | System - | | | | | (PRESENCE) | | [place] | | | | | IN URINE [...] | | | BY SCREEN | | [place] | | | | | METHOD | | | | | | + + + + + + + | THC | 2022-03-19 | [facility] | Presumptive | (missing) | (missing) | | (CANNABINOID | 07:10 | Health | Positive | | | | ) IN URINE | | System - | | | | | BY SCREEN | | [place] | | | | | METHOD | | | | | | + + + + + + + | AMPHETAMINE | 2022-03-19 | [facility] | Presumptive | (missing) | (missing) | | (PRESENCE) | 07:10 | Health | Positive | | | | IN URINE BY | | System - | | | | | SCREEN | | [place] | | | | | METHOD | | | | | | + + + + + + + | | 2022-03-19 | [facility] | Presumptive | (missing) | (missing) | | METHAMPHETAM | 07:10 | Health | Positive | | | | INE | | System - | | | | | (PRESENCE) | | [place] | | | | | IN URINE [...] | | | | SCREEN | | [place] | | | | | METHOD | [...] ? | | | RATE) | | [place] | | | | | ML/MIN/1.73 | [...] ? | | | RATE) | | [place] | | | | | ML/MIN/1.73 | [...] | | | | SER/PLAS | | [place] | | | | + + + +--------+ + + | BILIRUBIN | 2022-04-25 | [facility] | < | mg/dl | (missing) | | TOTAL | 14:54 | Health | | | | | (MG/DL) IN | | System - | | | | | SER/PLAS | | [place] | | | | + + + +--------+ + + | CREATININE | 2022-04-25 | [facility] | 0.8 | mg/dl | (missing) | | (MG/DL) IN | : | Health | | | | | SER/PLAS | | System - | | | | | | | [place] | | | | + + + +--------+ + + | CREATININE | 2022-04-25 | [facility] | 0.8 | mg/dl | (missing) | | (MG/DL) IN | :54 | Health | | | | | SER/PLAS | | System - | | | | | | | [place] | | | | + + + +--------+ + + | BLOOD UREA | 2022-04-25 | [facility] | 10 | mg/dl | (missing) | | NITROGEN | 14:54 | Health | | | | | (BUN) | | System - | | | | | (MG/DL) IN | | [place] | | | | | SER/PLAS | | | | | | + + + +--------+ + + | BLOOD UREA | 2022-04-25 | [facility] | 10 | mg/dl | (missing) | | NITROGEN | 14:54 | Health | | | | | (BUN) | | System - | | | | | (MG/DL) IN | | [place] | | | | | SER/PLAS | | | | | | + + + +--------+ + + | ANION GAP | 2022-04-25 | [facility] | 10.0 | mmol/l | (missing) | | IN SER/PLAS | 14:54 | Health | | | | | | | System - | | | | | | | [place] | | | | + + + +--------+ + + | ANION GAP | 2022-04-25 | [facility] | 10.0 | mmol/l | (missing) | | IN SER/PLAS | 14:54 | Health | | | | | | | System - | | | | | | | [place] | | | | + + + +--------+ + + | GLUCOSE, | 2022-04-25 | [facility] | 103 | mg/dl | (missing) | | RANDOM | 14:54 | Health | | | | | (MG/DL) IN | | System - | | | | | SER/PLAS | | [place] | | | | + + + +--------+ + + | GLUCOSE, | 2022-04-25 | [facility] | 103 | mg/dl | (missing) | | RANDOM | 14:54 | Health | | | | | (MG/DL) IN | | System - | | | | | SER/PLAS | | [place] | | | | + + + +--------+ + + | CHLORIDE | 2022-04-25 | [facility] | 108 | mmol/l | (missing) | | (MMOL/L) IN | 14:54 | Health | | | | | SER/PLAS | | System - | | | | | | | [place] | | | | + + + +--------+ + + | CHLORIDE | 2022-04-25 | [facility] | 108 | mmol/l | (missing) | | (MMOL/L) IN | 14:54 | Health | | | | | SER/PLAS | | System - | | | | | | | [place] | | | | + + + +--------+ + + | SODIUM | 2022-04-25 | [facility] | 142 | mmol/l | (missing) | | (MMOL/L) IN | 14:54 | Health | | | | | SER/PLAS | | System - | | | | | | | [place] | | | | + + + +--------+ + + | SODIUM | 2022-04-25 | [facility] | 142 | mmol/l | (missing) | | (MMOL/L) IN | 14:54 | Health | | | | | SER/PLAS | | System - | | | | | | | [place] | | | | + + + +--------+ + + | ASPARTATE | 2022-04-25 | [facility] | 15 | u/l | (missing) | | AMINOTRANSFE | 14:54 | Health | | | | | RASE (SGOT) | | System - | | | | | (U/L) IN | | [place] | | | | | SER/PLAS | | | | | | + + + +--------+ + + | ASPARTATE | 2022-04-25 | [facility] | 15 | u/l | (missing) | | AMINOTRANSFE | 14:54 | Health | | | | | RASE (SGOT) | | System - | | | | | (U/L) IN | | [place] | | | | | SER/PLAS | | | | | | + + + +--------+ + + | CARBON | 2022-04-25 | [facility] | 24 | mmol/l | (missing) | | DIOXIDE | 14:54 | Health | | | | | (CO2), TOTAL | | System - | | | | | (MMOL/L) IN | | [place] | | | | | SER/PLAS | | | | | | + + + +--------+ + + | CARBON | 2022-04-25 | [facility] | 24 | mmol/l | (missing) | | DIOXIDE | 14:54 | Health | | | | | (CO2), TOTAL | | System - | | | | | (MMOL/L) IN | | [place] | | | | | SER/PLAS | | | | | | + + + +--------+ + + | ALANINE | 2022-04-25 | [facility] | 29 | u/l | (missing) | | AMINOTRANSFE | 14:54 | Health | | | | | RASE (SGPT) | | System - | | | | | (U/L) IN | | [place] | | | | | SER/PLAS | | | | | | + + + +--------+ + + | ALANINE | 2022-04-25 | [facility] | 29 | u/l | (missing) | | AMINOTRANSFE | 14:54 | Health | | | | | RASE (SGPT) | | System - | | | | | (U/L) IN | | [place] | | | | | SER/PLAS | | | | | | + + + +--------+ + + | POTASSIUM | 2022-04-25 | [facility] | 3.6 | mmol/l | (missing) | | (MMOL/L) IN | 14:54 | Health | | | | | SER/PLAS | | System - | | | | | | | [place] | | | | + + + +--------+ + + | POTASSIUM | 2022-04-25 | [facility] | 3.6 | mmol/l | (missing) | | (MMOL/L) IN | 14:54 | Health | | | | | SER/PLAS | | System - | | | | | | | [place] | | | | + + + +--------+ + + | ALBUMIN | 2022-04-25 | [facility] | 4.2 | g/dl | (missing) | | (G/DL) IN | 14:54 | Health | | | | | SER/PLAS | | System - | | | | | | | [place] | | | | + + + +--------+ + + | ALBUMIN | 2022-04-25 | [facility] | 4.2 | g/dl | (missing) | | (G/DL) IN | 14:54 | Health | | | | | SER/PLAS | | System - | | | | | | | [place] | | | | + + + +--------+ + + | PROTEIN | 2022-04-25 | [facility] | 6.9 | g/dl | (missing) | | (G/DL) IN | 14:54 | Health | | | | | SER/PLAS | | System - | | | | | | | [place] | | | | + + + +--------+ + + | PROTEIN | 2022-04-25 | [facility] | 6.9 | g/dl | (missing) | | (G/DL) IN | 14:54 | Health | | | | | SER/PLAS | | System - | | | | | | | [place] | | | | + + + +--------+ + + | ALKALINE | 2022-04-25 | [facility] | 72 | u/l | (missing) | | PHOSPHATASE | 14:54 | Health | | | | | (U/L) IN | | System - | | | | | SER/PLAS | | [place] | | | | + + + +--------+ + + | ALKALINE | 2022-04-25 | [facility] | 72 | u/l | (missing) | | PHOSPHATASE | 14:54 | Health | | | | | (U/L) IN | | System - | | | | | SER/PLAS | | [place] | | | | + + + +--------+ + + | CALCIUM | 2022-04-25 | [facility] | 8.9 | mg/dl | (missing) | | (MG/DL) IN | 14:54 | Health | | | | | SER/PLAS | | System - | | | | | | | [place] | | | | + + + +--------+ + + | CALCIUM | 2022-04-25 | [facility] | 8.9 | mg/dl | (missing) | | (MG/DL) IN | 14:54 | Health | | | | | SER/PLAS | | System - | | | | | | | [place] | | | | + + + [...] | | | URINE BY | | [place] | | | | | SCREEN | [...] | | | | (PRESENCE) | | [place] | | | | | IN URINE [...] | | | | SCREEN | | [place] | | | | | METHOD | | | | | | + + + + + + + | METHADONE | 2022-04-30 | [facility] | Negative | (missing) | (missing) | | (PRESENCE) | 12:03 | Health | | | | | IN URINE BY | | System - | | | | | SCREEN | | [place] | | | | | METHOD | | | | | | + + + + + + + | OPIATES | 2022-04-30 | [facility] | Negative | (missing) | (missing) | | (PRESENCE) | 12:03 | Health | | | | | IN URINE BY | | System - | | | | | SCREEN | | [place] | | | | | METHOD | | | | | | + + + + + + + | OXYCODONE | 2022-04-30 | [facility] | Negative | (missing) | (missing) | | (PRESENCE) | 12:03 | Health | | | | | IN URINE BY | | System - | | | | | SCREEN | | [place] | | | | | METHOD | | | | | | + + + + + + + | | 2022-04-30 | [facility] | Negative | (missing) | (missing) | | PHENCYCLIDIN | 12:03 | Health | | | | | E (PRESENCE) | | System - | | | | | IN URINE BY | | [place] | | | | | SCREEN | [...] | | | | | | | [place] | | | | + + + + + + + | THC | 2022-04-30 | [facility] | Negative | (missing) | (missing) | | (CANNABINOID | 12:03 | Health | | | | | ) IN URINE | | System - | | | | | BY SCREEN | | [place] | | | | | METHOD | | | | | | + + + + + + + | TRICYCLIC | 2022-04-30 | [facility] | Negative | (missing) | (missing) | | ANTIDEPRESSA | 12:03 | Health | | | | | NTS | | System - | | | | | (PRESENCE) | | [place] | | | | | IN URINE | | | | | | + + + + + + + | | 2022-04-30 | [facility] | Negative | (missing) | (missing) | | PHENCYCLIDIN | 12:03 | Health | | | | | E (PRESENCE) | | System - | | | | | IN URINE BY | | [place] | | | | | SCREEN | [...] | | | BY SCREEN | | [place] | | | | | METHOD | | | | | | + + + + + + + | OPIATES | 2022-04-30 | [facility] | Negative | (missing) | (missing) | | (PRESENCE) | 12:03 | Health | | | | | IN URINE BY | | System - | | | | | SCREEN | | [place] | | | | | METHOD | | | | | | + + + + + + + | TRICYCLIC | 2022-04-30 | [facility] | Negative | (missing) | (missing) | | ANTIDEPRESSA | 12:03 | Health | | | | | NTS | | System - | | | | | (PRESENCE) | | [place] | | | | | IN URINE | | | | | | + + + + + + + | AMPHETAMINE | 2022-04-30 | [facility] | Negative | (missing) | (missing) | | (PRESENCE) | 12:03 | Health | | | | | IN URINE BY | | System - | | | | | SCREEN | | [place] | | | | | METHOD | | | | | | + + + + + + + | OXYCODONE | 2022-04-30 | [facility] | Negative | (missing) | (missing) | | (PRESENCE) | 12:03 | Health | | | | | IN URINE BY | | System - | | | | | SCREEN | | [place] | | | | | METHOD | | | | | | + + + + + + + | COCAINE | 2022-04-30 | [facility] | Negative | (missing) | (missing) | | (PRESENCE) | 12:03 | Health | | | | | IN URINE BY | | System - | | | | | SCREEN | | [place] | | | | | METHOD | | | | | | + + + + + + + | | 2022-04-30 | [facility] | Negative | (missing) | (missing) | | BARBITURATES | 12:03 | Health | | | | | PRESENCE IN | | System - | | | | | URINE BY | | [place] | | | | | SCREEN | [...] | | | | (PRESENCE) | | [place] | | | | | IN URINE [...] | | | | SCREEN | | [place] | | | | | METHOD | | | | | | + + + + + + + | POCT | 2022-04-30 | [facility] | Negative | (missing) | (missing) | | | 12:03 | Health | | | | | TEST URINE | | System - | | | | | | | [place] | | | | + + + + + + + | AMPHETAMINE | 2022-04-30 | [facility] | Negative | (missing) | (missing) | | (PRESENCE) | 12:03 | Health | | | | | IN URINE BY | | System - | | | | | SCREEN | | [place] | | | | | METHOD | | | | | | + + + + + + + | | 2022-04-30 | [facility] | Presumptive | (missing) | (missing) | | METHAMPHETAM | 12:03 | Health | Positive | | | | INE | | System - | | | | | (PRESENCE) | | [place] | | | | | IN URINE [...] | | | | (PRESENCE) | | [place] | | | | | IN URINE [...] ? | | | RATE) | | [place] | | | | | ML/MIN/1.73 | [...] ? | | | RATE) | | [place] | | | | | ML/MIN/1.73 | [...] | | | | | | | [place] | | | | + + + + + + + | RBC (#/HPF) | 2022-05-14 | [facility] | < | /hpf | (missing) | | IN URINE | 08:36 | Health | | | | | SEDIMENT | | System - | | | | | | | [place] | | | | + + + + + + + | ALCOHOL | 2022-05-14 | [facility] | < | g/dl | (missing) | | (G/DL) IN | 08:36 | Health | | | | | SER/PLAS | | System - | | | | | | | [place] | | | | + + + + + + + | ALCOHOL | 2022-05-14 | [facility] | < | g/dl | (missing) | | (G/DL) IN | 08:36 | Health | | | | | SER/PLAS | | System - | | | | | | | [place] | | | | + + + + + + + | | 2022-05-14 | [facility] | < | mcg/ml | (missing) | | ACETAMINOPHE | 08:36 | Health | | | | | N (UG/ML) IN | | System - | | | | | SER/PLAS | | [place] | | | | + + + + + + + | | 2022-05-14 | [facility] | < | mcg/ml | (missing) | | ACETAMINOPHE | 08:36 | Health | | | | | N (UG/ML) IN | | System - | | | | | SER/PLAS | | [place] | | | | + + + + + + + | SALICYLATE | 2022-05-14 | [facility] | < | mg/dl | (missing) | | (MG/DL) IN | 08:36 | Health | | | | | SER/PLAS | | System - | | | | | | | [place] | | | | + + + + + + + | BILIRUBIN | 2022-05-14 | [facility] | < | mg/dl | (missing) | | TOTAL | 08:36 | Health | | | | | (MG/DL) IN | | System - | | | | | SER/PLAS | | [place] | | | | + + + + + + + | BILIRUBIN | 2022-05-14 | [facility] | < | mg/dl | (missing) | | TOTAL | 08:36 | Health | | | | | (MG/DL) IN | | System - | | | | | SER/PLAS | | [place] | | | | + + + + + + + | SALICYLATE | 2022-05-14 | [facility] | < | mg/dl | (missing) | | (MG/DL) IN | 08:36 | Health | | | | | SER/PLAS | | System - | | | | | | | [place] | | | | + + + + + + + | NRBC/100 | 2022-05-14 | [facility] | 0.0 | % | (missing) | | WBCS BY | 08:36 | Health | | | | | AUTOMATED | | System - | | | | | COUNT | | [place] | | | | + + + + + + + | | 2022-05-14 | [facility] | 0.0 | % | (missing) | | EOSINOPHILS/ | 08:36 | Health | | | | | 100 | | System - | | | | | LEUKOCYTES | | [place] | | | | | IN BLOOD [...] | | | | COUNT | | [place] | | | | + + + + + + + | | 2022-05-14 | [facility] | 0.0 | % | (missing) | | EOSINOPHILS/ | 08:36 | Health | | | | | 100 | | System - | | | | | LEUKOCYTES | | [place] | | | | | IN BLOOD [...] | | | BY AUTOMATED | | [place] | | | | | COUNT | | | | | | + + + + + + + | EOSINOPHILS | 2022-05-14 | [facility] | 0.0 | k/mcl | (missing) | | (10*3/UL) | 08:36 | Health | | | | | IN BLOOD BY | | System - | | | | | AUTOMATED | | [place] | | | | | COUNT | | | | | | + + + + + + + | EOSINOPHILS | 2022-05-14 | [facility] | 0.0 | k/mcl | (missing) | | (10*3/UL) | 08:36 | Health | | | | | IN BLOOD BY | | System - | | | | | AUTOMATED | | [place] | | | | | COUNT | | | | | | + + + + + + + | | 2022-05-14 | [facility] | 0.0 | k/mcl | (missing) | | NRBC(10*3/UL | 08:36 | Health | | | | | ) IN BLOOD | | System - | | | | | BY AUTOMATED | | [place] | | | | | COUNT | | | | | | + + + + + + + | IMMATURE | 2022-05-14 | [facility] | 0.08 | k/mcl | (missing) | | GRANULOCYTE | 08:36 | Health | | | | | (ABS) | | System - | | | | | | | [place] | | | | + + + + + + + | IMMATURE | 2022-05-14 | [facility] | 0.08 | k/mcl | (missing) | | GRANULOCYTE | 08:36 | Health | | | | | (ABS) | | System - | | | | | | | [place] | | | | + + + + + + + | BASOPHILS | 2022-05-14 | [facility] | 0.1 | k/mcl | (missing) | | (10*3/UL) IN | 08:36 | Health | | | | | BLOOD BY | | System - | | | | | AUTOMATED | | [place] | | | | | COUNT | | | | | | + + + + + + + | BASOPHILS | 2022-05-14 | [facility] | 0.1 | k/mcl | (missing) | | (10*3/UL) IN | 08:36 | Health | | | | | BLOOD BY | | System - | | | | | AUTOMATED | | [place] | | | | | COUNT | | | | | | + + + + + + + | | 2022-05-14 | [facility] | 0.2 | mg/dl | (missing) | | UROBILINOGEN | 08:36 | Health | | | | | (MG/DL) IN | | System - | | | | | URINE BY | | [place] | | | | | TEST STRIP | | | | | | + + + + + + + | | 2022-05-14 | [facility] | 0.2 | mg/dl | (missing) | | UROBILINOGEN | 08:36 | Health | | | | | (MG/DL) IN | | System - | | | | | URINE BY | | [place] | | | | | TEST STRIP | | | | | | + + + + + + + | MONOCYTES | 2022-05-14 | [facility] | 0.5 | k/mcl | (missing) | | (10*3/UL) IN | 08:36 | Health | | | | | BLOOD BY | | System - | | | | | AUTOMATED | | [place] | | | | | COUNT | | | | | | + + + + + + + | MONOCYTES | 2022-05-14 | [facility] | 0.5 | k/mcl | (missing) | | (10*3/UL) IN | 08:36 | Health | | | | | BLOOD BY | | System - | | | | | AUTOMATED | | [place] | | | | | COUNT | | | | | | + + + + + + + | | 2022-05-14 | [facility] | 0.6 | % | (missing) | | BASOPHILS/10 | 08:36 | Health | | | | | 0 LEUKOCYTES | | System - | | | | | IN BLOOD BY | | [place] | | | | | AUTOMATED | [...] | | IN BLOOD BY | | [facility] | | | | | AUTOMATED | [...] | | | | | | | [place] | | | | + + + + + + + | CREATININE | 2022-05-14 | [facility] | 0.6 | mg/dl | (missing) | | (MG/DL) IN | 08:36 | Health | | | | | SER/PLAS | | System - | | | | | | | [place] | | | | + + + + + + + | IMMATURE | 2022-05-14 | [facility] | 0.9 | % | (missing) | | GRANULOCYTE | 08:36 | Health | | | | | % (AUTO) | | System - | | | | | | | [place] | | | | + + + + + + + | IMMATURE | 2022-05-14 | [facility] | 0.9 | % | (missing) | | GRANULOCYTE | 08:36 | Health | | | | | % (AUTO) | | System - | | | | | | | [place] | | | | + + + + + + + | BACTERIA | 2022-05-14 | [facility] | 1 | /hpf | (missing) | | (#/HPF) IN | 08:36 | Health | | | | | URINE | | System - | | | | | | | [place] | | | | + + + + + + + | BACTERIA | 2022-05-14 | [facility] | 1 | /hpf | (missing) | | (#/HPF) IN | 08:36 | Health | | | | | URINE | | System - | | | | | | | [place] | | | | + + + + + + + | SPECIFIC | 2022-05-14 | [facility] | 1.015 | (missing) | (missing) | | GRAVITY OF | 08:36 | Health | | | | | URINE BY | | System - | | | | | AUTOMATED | | [place] | | | | | TEST STRIP | | | | | | + + + + + + + | SPECIFIC | 2022-05-14 | [facility] | 1.015 | (missing) | (missing) | | GRAVITY OF | 08:36 | Health | | | | | URINE BY | | System - | | | | | AUTOMATED | | [place] | | | | | TEST STRIP | | | | | | + + + + + + + | CHLORIDE | 2022-05-14 | [facility] | 105 | mmol/l | (missing) | | (MMOL/L) IN | 08:36 | Health | | | | | SER/PLAS | | System - | | | | | | | [place] | | | | + + + + + + + | CHLORIDE | 2022-05-14 | [facility] | 105 | mmol/l | (missing) | | (MMOL/L) IN | 08:36 | Health | | | | | SER/PLAS | | System - | | | | | | | [place] | | | | + + + + + + + | ANION GAP | 2022-05-14 | [facility] | 12.0 | mmol/l | (missing) | | IN SER/PLAS | 08:36 | Health | | | | | | | System - | | | | | | | [place] | | | | + + + + + + + | ANION GAP | 2022-05-14 | [facility] | 12.0 | mmol/l | (missing) | | IN SER/PLAS | 08:36 | Health | | | | | | | System - | | | | | | | [place] | | | | + + + + + + + | ERYTHROCYTE | 2022-05-14 | [facility] | 12.5 | % | (missing) | | | 08:36 | Health | | | | | DISTRIBUTION | | System - | | | | | WIDTH | | [place] | | | | | (RATIO) BY [...] | | | | WIDTH | | [facility] | | | | | (RATIO) BY [...] | | | | | | | [place] | | | | + + + + + + + | SODIUM | 2022-05-14 | [facility] | 137 | mmol/l | (missing) | | (MMOL/L) IN | 08:36 | Health | | | | | SER/PLAS | | System - | | | | | | | [place] | | | | + + + + + + + | ALANINE | 2022-05-14 | [facility] | 14 | u/l | (missing) | | AMINOTRANSFE | 08:36 | Health | | | | | RASE (SGPT) | | System - | | | | | (U/L) IN | | [place] | | | | | SER/PLAS | | | | | | + + + + + + + | ALANINE | 2022-05-14 | [facility] | 14 | u/l | (missing) | | AMINOTRANSFE | 08:36 | Health | | | | | RASE (SGPT) | | System - | | | | | (U/L) IN | | [place] | | | | | SER/PLAS | | | | | | + + + + + + + | HEMOGLOBIN | 2022-05-14 | [facility] | 15.2 | g/dl | (missing) | | (G/DL) IN | 08:36 | Health | | | | | BLOOD | | System - | | | | | | | [place] | | | | + + + + + + + | HEMOGLOBIN | 2022-05-14 | [facility] | 15.2 | g/dl | (missing) | | (G/DL) IN | 08:36 | Health | | | | | BLOOD | | System - | | | | | | | [place] | | | | + + + + + + + | TSH | 2022-05-14 | [facility] | 2.18 | mciu/ml | (missing) | | (THYROTROPIN | 08:36 | Health | | | | | ) (UIU/ML) | | System - | | | | | IN SER/PLAS | | [place] | | | | + + + + + + + | TSH | 2022-05-14 | [facility] | 2.18 | mciu/ml | (missing) | | (THYROTROPIN | 08:36 | Health | | | | | ) (UIU/ML) | | System - | | | | | IN SER/PLAS | | [place] | | | | + + + + + + + | LYMPHOCYTES | 2022-05-14 | [facility] | 2.8 | k/mcl | (missing) | | (10*3/UL) | 08:36 | Health | | | | | IN BLOOD BY | | System - | | | | | AUTOMATED | | [place] | | | | | COUNT | | | | | | + + + + + + + | LYMPHOCYTES | 2022-05-14 | [facility] | 2.8 | k/mcl | (missing) | | (10*3/UL) | 08:36 | Health | | | | | IN BLOOD BY | | System - | | | | | AUTOMATED | | [place] | | | | | COUNT | | | | | | + + + + + + + | CARBON | 2022-05-14 | [facility] | 20 | mmol/l | (missing) | | DIOXIDE | 08:36 | Health | | | | | (CO2), TOTAL | | System - | | | | | (MMOL/L) IN | | [place] | | | | | SER/PLAS | | | | | | + + + + + + + | CARBON | 2022-05-14 | [facility] | 20 | mmol/l | (missing) | | DIOXIDE | 08:36 | Health | | | | | (CO2), TOTAL | | System - | | | | | (MMOL/L) IN | | [place] | | | | | SER/PLAS | | | | | | + + + + + + + | SQUAMOUS | 2022-05-14 | [facility] | 25 | /hpf | (missing) | | EPITHELIAL | 08:36 | Health | | | | | CELLS | | System - | | | | | (#/HPF) IN | | [place] | | | | | URINE | [...] | | | (#/HPF) IN | | [place] | | | | | URINE | [...] | | | | URINE | | [place] | | | | | SEDIMENT | | | | | | + + + + + + + | WBC | 2022-05-14 | [facility] | 3 | /hpf | (missing) | | (LEUKOCYTE) | 08:36 | Health | | | | | (#/HPF) IN | | System - | | | | | URINE | | [place] | | | | | SEDIMENT | | | | | | + + + + + + + | ERYTHROCYTE | 2022-05-14 | [facility] | 30.3 | pg | (missing) | | MEAN | 08:36 | Health | | | | | CORPUSCULAR | | System - | | | | | HEMOGLOBIN | | [place] | | | | | (PG) BY [...] | | | | HEMOGLOBIN | | [place] | | | | | (PG) BY [...] | | | | LEUKOCYTES | | [place] | | | | | IN BLOOD [...] | | | | LEUKOCYTES | | [place] | | | | | IN BLOOD [...] | | | | AUTOMATED | | [place] | | | | | COUNT | | | | | | + + + + + + + | PLATELETS | 2022-05-14 | [facility] | 313 | k/mcl | (missing) | | (10*3/UL) IN | 08:36 | Health | | | | | BLOOD | | System - | | | | | AUTOMATED | | [place] | | | | | COUNT | | | | | | + + + + + + + | ERYTHROCYTE | 2022-05-14 | [facility] | 33.9 | g/dl | (missing) | | MEAN | 08:36 | Health | | | | | CORPUSCULAR | | System - | | | | | HEMOGLOBIN | | [place] | | | | | CONCENTRATIO | [...] | | | | HEMOGLOBIN | | [place] | | | | | CONCENTRATIO | [...] | | | | | | | [place] | | | | + + + + + + + | POTASSIUM | 2022-05-14 | [facility] | 4.3 | mmol/l | (missing) | | (MMOL/L) IN | 08:36 | Health | | | | | SER/PLAS | | System - | | | | | | | [place] | | | | + + + + + + + | ALBUMIN | 2022-05-14 | [facility] | 4.4 | g/dl | (missing) | | (G/DL) IN | 08:36 | Health | | | | | SER/PLAS | | System - | | | | | | | [place] | | | | + + + + + + + | ALBUMIN | 2022-05-14 | [facility] | 4.4 | g/dl | (missing) | | (G/DL) IN | 08:36 | Health | | | | | SER/PLAS | | System - | | | | | | | [place] | | | | + + + + + + + | HEMATOCRIT | 2022-05-14 | [facility] | 44.8 | % | (missing) | | (%) IN BLOOD | 08:36 | Health | | | | | BY | | System - | | | | | AUTOMATED | | [place] | | | | | COUNT | | | | | | + + + + + + + | HEMATOCRIT | 2022-05-14 | [facility] | 44.8 | % | (missing) | | (%) IN BLOOD | 08:36 | Health | | | | | BY | | System - | | | | | AUTOMATED | | [place] | | | | | COUNT | | | | | | + + + + + + + | | 2022-05-14 | [facility] | 5.01 | m/mcl | (missing) | | ERYTHROCYTES | 08:36 | Health | | | | | (10*6/UL) | | System - | | | | | IN BLOOD BY | | [place] | | | | | AUTOMATED | [...] | | IN BLOOD BY | | [place] | | | | | AUTOMATED | [...] | | | | AUTOMATED | | [place] | | | | | COUNT | | | | | | + + + + + + + | NEUTROPHILS | 2022-05-14 | [facility] | 5.4 | k/mcl | (missing) | | (10*3/UL) | 08:36 | Health | | | | | IN BLOOD BY | | System - | | | | | AUTOMATED | | [place] | | | | | COUNT | | | | | | + + + + + + + | | 2022-05-14 | [facility] | 5.6 | % | (missing) | | MONOCYTES/10 | 08:36 | Health | | | | | 0 LEUKOCYTES | | System - | | | | | IN BLOOD BY | | [place] | | | | | AUTOMATED | [...] | | IN BLOOD BY | | [place] | | | | | AUTOMATED | [...] | | | | | | | [place] | | | | + + + + + + + | PROTEIN | 2022-05-14 | [facility] | 6.9 | g/dl | (missing) | | (G/DL) IN | 08:36 | Health | | | | | SER/PLAS | | System - | | | | | | | [place] | | | | + + + + + + + | | 2022-05-14 | [facility] | 61.2 | % | (missing) | | NEUTROPHILS/ | 08:36 | Health | | | | | 100 | | System - | | | | | LEUKOCYTES | | [place] | | | | | IN BLOOD [...] | | | | LEUKOCYTES | | [place] | | | | | IN BLOOD [...] | | | | SER/PLAS | | [place] | | | | + + + + + + + | ALKALINE | 2022-05-14 | [facility] | 74 | u/l | (missing) | | PHOSPHATASE | 08:36 | Health | | | | | (U/L) IN | | System - | | | | | SER/PLAS | | [place] | | | | + + + + + + + | BLOOD UREA | 2022-05-14 | [facility] | 8 | mg/dl | (missing) | | NITROGEN | 08:36 | Health | | | | | (BUN) | | System - | | | | | (MG/DL) IN | | [place] | | | | | SER/PLAS | | | | | | + + + + + + + | BLOOD UREA | 2022-05-14 | [facility] | 8 | mg/dl | (missing) | | NITROGEN | 08:36 | Health | | | | | (BUN) | | System - | | | | | (MG/DL) IN | | [place] | | | | | SER/PLAS | | | | | | + + + + + + + | PH OF URINE | 2022-05-14 | [facility] | 8.0 | (missing) | (missing) | | | 08:36 | Health | | | | | | | System - | | | | | | | [place] | | | | + + + + + + + | PH OF URINE | 2022-05-14 | [facility] | 8.0 | (missing) | (missing) | | | 08:36 | Health | | | | | | | System - | | | | | | | [place] | | | | + + + + + + + | | 2022-05-14 | [facility] | 8.8 | k/mcl | (missing) | | LEUKOCYTES(1 | 08:36 | Health | | | | | 0*3/UL) IN | | System - | | | | | BLOOD BY | | [place] | | | | | AUTOMATED | [...] | | | BLOOD BY | | [place] | | | | | AUTOMATED | [...] | | | VOLUME (FL) | | [place] | | | | | BY AUTOMATED [...] | | | VOLUME (FL) | | [place] | | | | | BY AUTOMATED [...] | | | (U/L) IN | | [place] | | | | | SER/PLAS | | | | | | + + + + + + + | ASPARTATE | 2022-05-14 | [facility] | 9 | u/l | (missing) | | AMINOTRANSFE | 08:36 | Health | | | | | RASE (SGOT) | | System - | | | | | (U/L) IN | | [place] | | | | | SER/PLAS | | | | | | + + + + + + + | CALCIUM | 2022-05-14 | [facility] | 9.3 | mg/dl | (missing) | | (MG/DL) IN | 08:36 | Health | | | | | SER/PLAS | | System - | | | | | | | [place] | | | | + + + + + + + | CALCIUM | 2022-05-14 | [facility] | 9.3 | mg/dl | (missing) | | (MG/DL) IN | 08:36 | Health | | | | | SER/PLAS | | System - | | | | | | | [place] | | | | + + + + + + + | PLATELET | 2022-05-14 | [facility] | 9.7 | fl | (missing) | | MEAN VOLUME | 08:36 | Health | | | | | (FL) IN | | System - | | | | | BLOOD BY | | [place] | | | | | AUTOMATED | [...] | | | BLOOD BY | | [place] | | | | | AUTOMATED | [...] | | | | SER/PLAS | | [place] | | | | + + + + + + + | GLUCOSE, | 2022-05-14 | [facility] | 93 | mg/dl | (missing) | | RANDOM | 08:36 | Health | | | | | (MG/DL) IN | | System - | | | | | SER/PLAS | | [place] | | | | + + + + + + + | | 2022-05-14 | [facility] | Negative | (missing) | (missing) | | BARBITURATES | 08:36 | Health | | | | | PRESENCE IN | | System - | | | | | URINE BY | | [place] | | | | | SCREEN | [...] | | | | (PRESENCE) | | [place] | | | | | IN URINE [...] | | | | URINE | | [place] | | | | + + + + + + + | COCAINE | 2022-05-14 | [facility] | Negative | (missing) | (missing) | | (PRESENCE) | 08:36 | Health | | | | | IN URINE BY | | System - | | | | | SCREEN | | [place] | | | | | METHOD | | | | | | + + + + + + + | GLUCOSE IN | 2022-05-14 | [facility] | Negative | (missing) | (missing) | | URINE | 08:36 | Health | | | | | | | System - | | | | | | | [place] | | | | + + + + + + + | HEMOGLOBIN | 2022-05-14 | [facility] | Negative | (missing) | (missing) | | PRESENCE IN | 08:36 | Health | | | | | URINE | | System - | | | | | | | [place] | | | | + + + + + + + | LEUKOCYTE | 2022-05-14 | [facility] | Negative | (missing) | (missing) | | ESTERASE | 08:36 | Health | | | | | PRESENCE IN | | System - | | | | | URINE BY | | [place] | | | | | TEST STRIP | | | | | | + + + + + + + | METHADONE | 2022-05-14 | [facility] | Negative | (missing) | (missing) | | (PRESENCE) | 08:36 | Health | | | | | IN URINE BY | | System - | | | | | SCREEN | | [place] | | | | | METHOD | | | | | | + + + + + + + | | 2022-05-14 | [facility] | Negative | (missing) | (missing) | | METHAMPHETAM | 08:36 | Health | | | | | INE | | System - | | | | | (PRESENCE) | | [place] | | | | | IN URINE [...] | | | | | | | [place] | | | | + + + + + + + | OPIATES | 2022-05-14 | [facility] | Negative | (missing) | (missing) | | (PRESENCE) | 08:36 | Health | | | | | IN URINE BY | | System - | | | | | SCREEN | | [place] | | | | | METHOD | | | | | | + + + + + + + | OXYCODONE | 2022-05-14 | [facility] | Negative | (missing) | (missing) | | (PRESENCE) | 08:36 | Health | | | | | IN URINE BY | | System - | | | | | SCREEN | | [place] | | | | | METHOD | | | | | | + + + + + + + | | 2022-05-14 | [facility] | Negative | (missing) | (missing) | | PHENCYCLIDIN | 08:36 | Health | | | | | E (PRESENCE) | | System - | | | | | IN URINE BY | | [place] | | | | | SCREEN | [...] | | | | | | | [place] | | | | + + + + + + + | THC | 2022-05-14 | [facility] | Negative | (missing) | (missing) | | (CANNABINOID | 08:36 | Health | | | | | ) IN URINE | | System - | | | | | BY SCREEN | | [place] | | | | | METHOD | | | | | | + + + + + + + | TRICYCLIC | 2022-05-14 | [facility] | Negative | (missing) | (missing) | | ANTIDEPRESSA | 08:36 | Health | | | | | NTS | | System - | | | | | (PRESENCE) | | [place] | | | | | IN URINE | | | | | | + + + + + + + | | 2022-05-14 | [facility] | Negative | (missing) | (missing) | | PHENCYCLIDIN | 08:36 | Health | | | | | E (PRESENCE) | | System - | | | | | IN URINE BY | | [place] | | | | | SCREEN | [...] | | | BY SCREEN | | [place] | | | | | METHOD | | | | | | + + + + + + + | OPIATES | 2022-05-14 | [facility] | Negative | (missing) | (missing) | | (PRESENCE) | 08:36 | Health | | | | | IN URINE BY | | System - | | | | | SCREEN | | [place] | | | | | METHOD | | | | | | + + + + + + + | TRICYCLIC | 2022-05-14 | [facility] | Negative | (missing) | (missing) | | ANTIDEPRESSA | 08:36 | Health | | | | | NTS | | System - | | | | | (PRESENCE) | | [place] | | | | | IN URINE | | | | | | + + + + + + + | AMPHETAMINE | 2022-05-14 | [facility] | Negative | (missing) | (missing) | | (PRESENCE) | 08:36 | Health | | | | | IN URINE BY | | System - | | | | | SCREEN | | [place] | | | | | METHOD | | | | | | + + + + + + + | | 2022-05-14 | [facility] | Negative | (missing) | (missing) | | METHAMPHETAM | 08:36 | Health | | | | | INE | | System - | | | | | (PRESENCE) | | [place] | | | | | IN URINE [...] | | | | SCREEN | | [place] | | | | | METHOD | | | | | | + + + + + + + | BILIRUBIN, | 2022-05-14 | [facility] | Negative | (missing) | (missing) | | TOTAL | 08:36 | Health | | | | | PRESENCE IN | | System - | | | | | URINE | | [place] | | | | + + + + + + + | GLUCOSE IN | 2022-05-14 | [facility] | Negative | (missing) | (missing) | | URINE | 08:36 | Health | | | | | | | System - | | | | | | | [place] | | | | + + + + + + + | COCAINE | 2022-05-14 | [facility] | Negative | (missing) | (missing) | | (PRESENCE) | 08:36 | Health | | | | | IN URINE BY | | System - | | | | | SCREEN | | [place] | | | | | METHOD | | | | | | + + + + + + + | NITRITE | 2022-05-14 | [facility] | Negative | (missing) | (missing) | | PRESENCE IN | 08:36 | Health | | | | | URINE | | System - | | | | | | | [place] | | | | + + + + + + + | PROTEIN IN | 2022-05-14 | [facility] | Negative | (missing) | (missing) | | URINE BY | 08:36 | Health | | | | | TEST STRIP | | System - | | | | | | | [place] | | | | + + + + + + + | | 2022-05-14 | [facility] | Negative | (missing) | (missing) | | BARBITURATES | 08:36 | Health | | | | | PRESENCE IN | | System - | | | | | URINE BY | | [place] | | | | | SCREEN | [...] | | | | (PRESENCE) | | [place] | | | | | IN URINE [...] | | | | SCREEN | | [place] | | | | | METHOD | | | | | | + + + + + + + | HEMOGLOBIN | 2022-05-14 | [facility] | Negative | (missing) | (missing) | | PRESENCE IN | 08:36 | Health | | | | | URINE | | System - | | | | | | | [place] | | | | + + + + + + + | LEUKOCYTE | 2022-05-14 | [facility] | Negative | (missing) | (missing) | | ESTERASE | 08:36 | Health | | | | | PRESENCE IN | | System - | | | | | URINE BY | | [place] | | | | | TEST STRIP | | | | | | + + + + + + + | AMPHETAMINE | 2022-05-14 | [facility] | Negative | (missing) | (missing) | | (PRESENCE) | 08:36 | Health | | | | | IN URINE BY | | System - | | | | | SCREEN | | [place] | | | | | METHOD | | | | | | + + + + + + + | CLARITY OF | 2022-05-14 | [facility] | Slightly | (missing) | (missing) | | URINE | 08:36 | Health | Cloudy | | | | | | System - | | | | | | | [place] | | | | + + + + + + + | CLARITY OF | 2022-05-14 | [facility] | Slightly | (missing) | (missing) | | URINE | 08:36 | Health | Cloudy | | | | | | System - | | | | | | | [place] | | | | + + + + + + + | KETONES IN | 2022-05-14 | [facility] | Trace | (missing) | (missing) | | URINE | 08:36 | Health | | | | | | | System - | | | | | | | [place] | | | | + + + + + + + | KETONES IN | 2022-05-14 | [facility] | Trace | (missing) | (missing) | | URINE | 08:36 | Health | | | | | | | System - | | | | | | | [place] | | | | + + + + + + + | COLOR OF | 2022-05-14 | [facility] | Yellow | (missing) | (missing) | | URINE | 08:36 | Health | | | | | | | System - | | | | | | | [place] | | | | + + + + + + + | COLOR OF | 2022-05-14 | [facility] | Yellow | (missing) | (missing) | | URINE | 08:36 | Health | | | | | | | System - | | | | | | | [place] | | | | + + + [...] | | | | SER/PLAS | | [place] | | | | + + + + + + + | BHCG QUAL | 2022-05-14 | [facility] | Negative | (missing) | (missing) | | (CHORIOGONAD | 09:00 | Health | | | | | OTROPIN) IN | | System - | | | | | SER/PLAS | | [place] | | | | + + + [...] | | | URINE BY | | [place] | | | | | TEST STRIP | | | | | | + + + + + + + | | 2022-05-17 | [facility] | 0.2 | mg/dl | (missing) | | UROBILINOGEN | 10:11 | Health | | | | | (MG/DL) IN | | System - | | | | | URINE BY | | [place] | | | | | TEST STRIP | | | | | | + + + + + + + | KETONES IN | 2022-05-17 | [facility] | 1 | (missing) | (missing) | | URINE | 10:11 | Health | | | | | | | System - | | | | | | | [place] | | | | + + + + + + + | KETONES IN | 2022-05-17 | [facility] | 1 | (missing) | (missing) | | URINE | 10:11 | Health | | | | | | | System - | | | | | | | [place] | | | | + + + + + + + | RBC (#/HPF) | 2022-05-17 | [facility] | 1 | /hpf | (missing) | | IN URINE | 10:11 | Health | | | | | SEDIMENT | | System - | | | | | | | [place] | | | | + + + + + + + | RBC (#/HPF) | 2022-05-17 | [facility] | 1 | /hpf | (missing) | | IN URINE | 10:11 | Health | | | | | SEDIMENT | | System - | | | | | | | [place] | | | | + + + + + + + | SPECIFIC | 2022-05-17 | [facility] | 1.020 | (missing) | (missing) | | GRAVITY OF | 10:11 | Health | | | | | URINE BY | | System - | | | | | AUTOMATED | | [place] | | | | | TEST STRIP | | | | | | + + + + + + + | SPECIFIC | 2022-05-17 | [facility] | 1.020 | (missing) | (missing) | | GRAVITY OF | 10:11 | Health | | | | | URINE BY | | System - | | | | | AUTOMATED | | [place] | | | | | TEST STRIP | | | | | | + + + + + + + | SQUAMOUS | 2022-05-17 | [facility] | 12 | /hpf | (missing) | | EPITHELIAL | 10:11 | Health | | | | | CELLS | | System - | | | | | (#/HPF) IN | | [place] | | | | | URINE | [...] | | | (#/HPF) IN | | [place] | | | | | URINE | [...] | | | | | | | [place] | | | | + + + + + + + | BACTERIA | 2022-05-17 | [facility] | 2 | /hpf | (missing) | | (#/HPF) IN | 10:11 | Health | | | | | URINE | | System - | | | | | | | [place] | | | | + + + + + + + | WBC | 2022-05-17 | [facility] | 3 | /hpf | (missing) | | (LEUKOCYTE) | 10:11 | Health | | | | | (#/HPF) IN | | System - | | | | | URINE | | [place] | | | | | SEDIMENT | | | | | | + + + + + + + | WBC | 2022-05-17 | [facility] | 3 | /hpf | (missing) | | (LEUKOCYTE) | 10:11 | Health | | | | | (#/HPF) IN | | System - | | | | | URINE | | [place] | | | | | SEDIMENT | | | | | | + + + + + + + | PH OF URINE | 2022-05-17 | [facility] | 8.0 | (missing) | (missing) | | | 10:11 | Health | | | | | | | System - | | | | | | | [place] | | | | + + + + + + + | PH OF URINE | 2022-05-17 | [facility] | 8.0 | (missing) | (missing) | | | 10:11 | Health | | | | | | | System - | | | | | | | [place] | | | | + + + + + + + | CLARITY OF | 2022-05-17 | [facility] | Hazy | (missing) | (missing) | | URINE | 10:11 | Health | | | | | | | System - | | | | | | | [place] | | | | + + + + + + + | CLARITY OF | 2022-05-17 | [facility] | Hazy | (missing) | (missing) | | URINE | 10:11 | Health | | | | | | | System - | | | | | | | [place] | | | | + + + + + + + | | 2022-05-17 | [facility] | Negative | (missing) | (missing) | | BARBITURATES | 10:11 | Health | | | | | PRESENCE IN | | System - | | | | | URINE BY | | [place] | | | | | SCREEN | [...] | | | | URINE | | [place] | | | | + + + + + + + | COCAINE | 2022-05-17 | [facility] | Negative | (missing) | (missing) | | (PRESENCE) | 10:11 | Health | | | | | IN URINE BY | | System - | | | | | SCREEN | | [place] | | | | | METHOD | | | | | | + + + + + + + | GLUCOSE IN | 2022-05-17 | [facility] | Negative | (missing) | (missing) | | URINE | 10:11 | Health | | | | | | | System - | | | | | | | [place] | | | | + + + + + + + | HEMOGLOBIN | 2022-05-17 | [facility] | Negative | (missing) | (missing) | | PRESENCE IN | 10:11 | Health | | | | | URINE | | System - | | | | | | | [place] | | | | + + + + + + + | METHADONE | 2022-05-17 | [facility] | Negative | (missing) | (missing) | | (PRESENCE) | 10:11 | Health | | | | | IN URINE BY | | System - | | | | | SCREEN | | [place] | | | | | METHOD | | | | | | + + + + + + + | | 2022-05-17 | [facility] | Negative | (missing) | (missing) | | METHAMPHETAM | 10:11 | Health | | | | | INE | | System - | | | | | (PRESENCE) | | [place] | | | | | IN URINE [...] | | | | | | | [place] | | | | + + + + + + + | OPIATES | 2022-05-17 | [facility] | Negative | (missing) | (missing) | | (PRESENCE) | 10:11 | Health | | | | | IN URINE BY | | System - | | | | | SCREEN | | [place] | | | | | METHOD | | | | | | + + + + + + + | OXYCODONE | 2022-05-17 | [facility] | Negative | (missing) | (missing) | | (PRESENCE) | 10:11 | Health | | | | | IN URINE BY | | System - | | | | | SCREEN | | [place] | | | | | METHOD | | | | | | + + + + + + + | | 2022-05-17 | [facility] | Negative | (missing) | (missing) | | PHENCYCLIDIN | 10:11 | Health | | | | | E (PRESENCE) | | System - | | | | | IN URINE BY | | [place] | | | | | SCREEN | [...] | | | | | | | [place] | | | | + + + + + + + | THC | 2022-05-17 | [facility] | Negative | (missing) | (missing) | | (CANNABINOID | 10:11 | Health | | | | | ) IN URINE | | System - | | | | | BY SCREEN | | [place] | | | | | METHOD | | | | | | + + + + + + + | TRICYCLIC | 2022-05-17 | [facility] | Negative | (missing) | (missing) | | ANTIDEPRESSA | 10:11 | Health | | | | | NTS | | System - | | | | | (PRESENCE) | | [place] | | | | | IN URINE | | | | | | + + + + + + + | | 2022-05-17 | [facility] | Negative | (missing) | (missing) | | PHENCYCLIDIN | 10:11 | Health | | | | | E (PRESENCE) | | System - | | | | | IN URINE BY | | [place] | | | | | SCREEN | [...] | | | BY SCREEN | | [place] | | | | | METHOD | | | | | | + + + + + + + | OPIATES | 2022-05-17 | [facility] | Negative | (missing) | (missing) | | (PRESENCE) | 10:11 | Health | | | | | IN URINE BY | | System - | | | | | SCREEN | | [place] | | | | | METHOD | | | | | | + + + + + + + | TRICYCLIC | 2022-05-17 | [facility] | Negative | (missing) | (missing) | | ANTIDEPRESSA | 10:11 | Health | | | | | NTS | | System - | | | | | (PRESENCE) | | [place] | | | | | IN URINE | | | | | | + + + + + + + | AMPHETAMINE | 2022-05-17 | [facility] | Negative | (missing) | (missing) | | (PRESENCE) | 10:11 | Health | | | | | IN URINE BY | | System - | | | | | SCREEN | | [place] | | | | | METHOD | | | | | | + + + + + + + | | 2022-05-17 | [facility] | Negative | (missing) | (missing) | | METHAMPHETAM | 10:11 | Health | | | | | INE | | System - | | | | | (PRESENCE) | | [place] | | | | | IN URINE [...] | | | | SCREEN | | [place] | | | | | METHOD | | | | | | + + + + + + + | BILIRUBIN, | 2022-05-17 | [facility] | Negative | (missing) | (missing) | | TOTAL | 10:11 | Health | | | | | PRESENCE IN | | System - | | | | | URINE | | [place] | | | | + + + + + + + | GLUCOSE IN | 2022-05-17 | [facility] | Negative | (missing) | (missing) | | URINE | 10:11 | Health | | | | | | | System - | | | | | | | [place] | | | | + + + + + + + | COCAINE | 2022-05-17 | [facility] | Negative | (missing) | (missing) | | (PRESENCE) | 10:11 | Health | | | | | IN URINE BY | | System - | | | | | SCREEN | | [place] | | | | | METHOD | | | | | | + + + + + + + | NITRITE | 2022-05-17 | [facility] | Negative | (missing) | (missing) | | PRESENCE IN | 10:11 | Health | | | | | URINE | | System - | | | | | | | [place] | | | | + + + + + + + | PROTEIN IN | 2022-05-17 | [facility] | Negative | (missing) | (missing) | | URINE BY | 10:11 | Health | | | | | TEST STRIP | | System - | | | | | | | [place] | | | | + + + + + + + | | 2022-05-17 | [facility] | Negative | (missing) | (missing) | | BARBITURATES | 10:11 | Health | | | | | PRESENCE IN | | System - | | | | | URINE BY | | [place] | | | | | SCREEN | [...] | | | | SCREEN | | [place] | | | | | METHOD | | | | | | + + + + + + + | HEMOGLOBIN | 2022-05-17 | [facility] | Negative | (missing) | (missing) | | PRESENCE IN | 10:11 | Health | | | | | URINE | | System - | | | | | | | [place] | | | | + + + + + + + | AMPHETAMINE | 2022-05-17 | [facility] | Negative | (missing) | (missing) | | (PRESENCE) | 10:11 | Health | | | | | IN URINE BY | | System - | | | | | SCREEN | | [place] | | | | | METHOD | | | | | | + + + + + + + | | 2022-05-17 | [facility] | Presumptive | (missing) | (missing) | | BENZODIAZEPI | 10:11 | Health | Positive | | | | SURYA | | System - | | | | | (PRESENCE) | | [facility] | | | | | IN URINE [...] | | | | (PRESENCE) | | [facility] | | | | | IN URINE [...] | | | URINE BY | | [facility] | | | | | TEST STRIP | | | | | | + + + + + + + | LEUKOCYTE | 2022-05-17 | [facility] | Trace | (missing) | (missing) | | ESTERASE | 10:11 | Health | | | | | PRESENCE IN | | System - | | | | | URINE BY | | [place] | | | | | TEST STRIP | | | | | | + + + + + + + | COLOR OF | 2022-05-17 | [facility] | Yellow | (missing) | (missing) | | URINE | 10:11 | Health | | | | | | | System - | | | | | | | [place] | | | | + + + + + + + | COLOR OF | 2022-05-17 | [facility] | Yellow | (missing) | (missing) | | URINE | 10:11 | Health | | | | | | | System - | | | | | | | [place] | | | | + + + [...] ? | | | RATE) | | [facility] | | | | | ML/MIN/1.73 | [...] ? | | | RATE) | | [facility] | | | | | ML/MIN/1.73 | [...] | | | | | | | [place] | | | | + + + + + + + | ALCOHOL | 2022-05-17 | [facility] | < | g/dl | (missing) | | (G/DL) IN | 10:54 | Health | | | | | SER/PLAS | | System - | | | | | | | [place] | | | | + + + + + + + | SALICYLATE | 2022-05-17 | [facility] | < | mg/dl | (missing) | | (MG/DL) IN | 10:54 | Health | | | | | SER/PLAS | | System - | | | | | | | [place] | | | | + + + + + + + | BILIRUBIN | 2022-05-17 | [facility] | < | mg/dl | (missing) | | TOTAL | 10:54 | Health | | | | | (MG/DL) IN | | System - | | | | | SER/PLAS | | [place] | | | | + + + + + + + | BILIRUBIN | 2022-05-17 | [facility] | < | mg/dl | (missing) | | TOTAL | 10:54 | Health | | | | | (MG/DL) IN | | System - | | | | | SER/PLAS | | [place] | | | | + + + + + + + | SALICYLATE | 2022-05-17 | [facility] | < | mg/dl | (missing) | | (MG/DL) IN | 10:54 | Health | | | | | SER/PLAS | | System - | | | | | | | [place] | | | | + + + + + + + | NRBC/100 | 2022-05-17 | [facility] | 0.0 | % | (missing) | | WBCS BY | 10:54 | Health | | | | | AUTOMATED | | System - | | | | | COUNT | | [place] | | | | + + + + + + + | | 2022-05-17 | [facility] | 0.0 | % | (missing) | | EOSINOPHILS/ | 10:54 | Health | | | | | 100 | | System - | | | | | LEUKOCYTES | | [place] | | | | | IN BLOOD [...] | | | | COUNT | | [place] | | | | + + + + + + + | | 2022-05-17 | [facility] | 0.0 | % | (missing) | | EOSINOPHILS/ | 10:54 | Health | | | | | 100 | | System - | | | | | LEUKOCYTES | | [place] | | | | | IN BLOOD [...] | | | | AUTOMATED | | [place] | | | | | COUNT | | | | | | + + + + + + + | | 2022-05-17 | [facility] | 0.0 | k/mcl | (missing) | | NRBC(10*3/UL | 10:54 | Health | | | | | ) IN BLOOD | | System - | | | | | BY AUTOMATED | | [place] | | | | | COUNT | | | | | | + + + + + + + | EOSINOPHILS | 2022-05-17 | [facility] | 0.0 | k/mcl | (missing) | | (10*3/UL) | 10:54 | Health | | | | | IN BLOOD BY | | System - | | | | | AUTOMATED | | [place] | | | | | COUNT | | | | | | + + + + + + + | BASOPHILS | 2022-05-17 | [facility] | 0.0 | k/mcl | (missing) | | (10*3/UL) IN | 10:54 | Health | | | | | BLOOD BY | | System - | | | | | AUTOMATED | | [place] | | | | | COUNT | | | | | | + + + + + + + | EOSINOPHILS | 2022-05-17 | [facility] | 0.0 | k/mcl | (missing) | | (10*3/UL) | 10:54 | Health | | | | | IN BLOOD BY | | System - | | | | | AUTOMATED | | [place] | | | | | COUNT | | | | | | + + + + + + + | | 2022-05-17 | [facility] | 0.0 | k/mcl | (missing) | | NRBC(10*3/UL | 10:54 | Health | | | | | ) IN BLOOD | | System - | | | | | BY AUTOMATED | | [place] | | | | | COUNT | | | | | | + + + + + + + | IMMATURE | 2022-05-17 | [facility] | 0.05 | k/mcl | (missing) | | GRANULOCYTE | 10:54 | Health | | | | | (ABS) | | System - | | | | | | | [place] | | | | + + + + + + + | IMMATURE | 2022-05-17 | [facility] | 0.05 | k/mcl | (missing) | | GRANULOCYTE | 10:54 | Health | | | | | (ABS) | | System - | | | | | | | [place] | | | | + + + + + + + | | 2022-05-17 | [facility] | 0.4 | % | (missing) | | BASOPHILS/10 | 10:54 | Health | | | | | 0 LEUKOCYTES | | System - | | | | | IN BLOOD BY | | [place] | | | | | AUTOMATED | [...] | | IN BLOOD BY | | [place] | | | | | AUTOMATED | [...] | | | | | | | [place] | | | | + + + + + + + | IMMATURE | 2022-05-17 | [facility] | 0.5 | % | (missing) | | GRANULOCYTE | 10:54 | Health | | | | | % (AUTO) | | System - | | | | | | | [place] | | | | + + + + + + + | MONOCYTES | 2022-05-17 | [facility] | 0.5 | k/mcl | (missing) | | (10*3/UL) IN | 10:54 | Health | | | | | BLOOD BY | | System - | | | | | AUTOMATED | | [place] | | | | | COUNT | | | | | | + + + + + + + | MONOCYTES | 2022-05-17 | [facility] | 0.5 | k/mcl | (missing) | | (10*3/UL) IN | 10:54 | Health | | | | | BLOOD BY | | System - | | | | | AUTOMATED | | [place] | | | | | COUNT | | | | | | + + + + + + + | CREATININE | 2022-05-17 | [facility] | 0.6 | mg/dl | (missing) | | (MG/DL) IN | 10:54 | Health | | | | | SER/PLAS | | System - | | | | | | | [place] | | | | + + + + + + + | CREATININE | 2022-05-17 | [facility] | 0.6 | mg/dl | (missing) | | (MG/DL) IN | 10:54 | Health | | | | | SER/PLAS | | System - | | | | | | | [place] | | | | + + + + + + + | BLOOD UREA | 2022-05-17 | [facility] | 10 | mg/dl | (missing) | | NITROGEN | 10:54 | Health | | | | | (BUN) | | System - | | | | | (MG/DL) IN | | [place] | | | | | SER/PLAS | | | | | | + + + + + + + | BLOOD UREA | 2022-05-17 | [facility] | 10 | mg/dl | (missing) | | NITROGEN | 10:54 | Health | | | | | (BUN) | | System - | | | | | (MG/DL) IN | | [place] | | | | | SER/PLAS | | | | | | + + + + + + + | ASPARTATE | 2022-05-17 | [facility] | 10 | u/l | (missing) | | AMINOTRANSFE | 10:54 | Health | | | | | RASE (SGOT) | | System - | | | | | (U/L) IN | | [place] | | | | | SER/PLAS | | | | | | + + + + + + + | ASPARTATE | 2022-05-17 | [facility] | 10 | u/l | (missing) | | AMINOTRANSFE | 10:54 | Health | | | | | RASE (SGOT) | | System - | | | | | (U/L) IN | | [place] | | | | | SER/PLAS | | | | | | + + + + + + + | CHLORIDE | 2022-05-17 | [facility] | 106 | mmol/l | (missing) | | (MMOL/L) IN | 10:54 | Health | | | | | SER/PLAS | | System - | | | | | | | [place] | | | | + + + + + + + | CHLORIDE | 2022-05-17 | [facility] | 106 | mmol/l | (missing) | | (MMOL/L) IN | 10:54 | Health | | | | | SER/PLAS | | System - | | | | | | | [place] | | | | + + + + + + + | ALANINE | 2022-05-17 | [facility] | 11 | u/l | (missing) | | AMINOTRANSFE | 10:54 | Health | | | | | RASE (SGPT) | | System - | | | | | (U/L) IN | | [place] | | | | | SER/PLAS | | | | | | + + + + + + + | ALANINE | 2022-05-17 | [facility] | 11 | u/l | (missing) | | AMINOTRANSFE | 10:54 | Health | | | | | RASE (SGPT) | | System - | | | | | (U/L) IN | | [place] | | | | | SER/PLAS | | | | | | + + + + + + + | ERYTHROCYTE | 2022-05-17 | [facility] | 12.6 | % | (missing) | | | 10:54 | Health | | | | | DISTRIBUTION | | System - | | | | | WIDTH | | [place] | | | | | (RATIO) BY [...] | | | | WIDTH | | [place] | | | | | (RATIO) BY [...] | | | | | | | [place] | | | | + + + + + + + | SODIUM | 2022-05-17 | [facility] | 139 | mmol/l | (missing) | | (MMOL/L) IN | 10:54 | Health | | | | | SER/PLAS | | System - | | | | | | | [place] | | | | + + + + + + + | HEMOGLOBIN | 2022-05-17 | [facility] | 14.1 | g/dl | (missing) | | (G/DL) IN | 10:54 | Health | | | | | BLOOD | | System - | | | | | | | [place] | | | | + + + + + + + | HEMOGLOBIN | 2022-05-17 | [facility] | 14.1 | g/dl | (missing) | | (G/DL) IN | 10:54 | Health | | | | | BLOOD | | System - | | | | | | | [place] | | | | + + + + + + + | CARBON | 2022-05-17 | [facility] | 24 | mmol/l | (missing) | | DIOXIDE | 10:54 | Health | | | | | (CO2), TOTAL | | System - | | | | | (MMOL/L) IN | | [place] | | | | | SER/PLAS | | | | | | + + + + + + + | CARBON | 2022-05-17 | [facility] | 24 | mmol/l | (missing) | | DIOXIDE | 10:54 | Health | | | | | (CO2), TOTAL | | System - | | | | | (MMOL/L) IN | | [place] | | | | | SER/PLAS | | | | | | + + + + + + + | PLATELETS | 2022-05-17 | [facility] | 298 | k/mcl | (missing) | | (10*3/UL) IN | 10:54 | Health | | | | | BLOOD | | System - | | | | | AUTOMATED | | [place] | | | | | COUNT | | | | | | + + + + + + + | PLATELETS | 2022-05-17 | [facility] | 298 | k/mcl | (missing) | | (10*3/UL) IN | 10:54 | Health | | | | | BLOOD | | System - | | | | | AUTOMATED | | [place] | | | | | COUNT | | | | | | + + + + + + + | LYMPHOCYTES | 2022-05-17 | [facility] | 3.1 | k/mcl | (missing) | | (10*3/UL) | 10:54 | Health | | | | | IN BLOOD BY | | System - | | | | | AUTOMATED | | [place] | | | | | COUNT | | | | | | + + + + + + + | LYMPHOCYTES | 2022-05-17 | [facility] | 3.1 | k/mcl | (missing) | | (10*3/UL) | 10:54 | Health | | | | | IN BLOOD BY | | System - | | | | | AUTOMATED | | [place] | | | | | COUNT | | | | | | + + + + + + + | ERYTHROCYTE | 2022-05-17 | [facility] | 30.9 | pg | (missing) | | MEAN | 10:54 | Health | | | | | CORPUSCULAR | | System - | | | | | HEMOGLOBIN | | [place] | | | | | (PG) BY [...] | | | | HEMOGLOBIN | | [place] | | | | | (PG) BY [...] | | | | LEUKOCYTES | | [place] | | | | | IN BLOOD [...] | | | | LEUKOCYTES | | [place] | | | | | IN BLOOD [...] | | | | | | | [place] | | | | + + + + + + + | LIPASE | 2022-05-17 | [facility] | 33 | u/l | (missing) | | (U/L) IN | 10:54 | Health | | | | | SER/PLAS | | System - | | | | | | | [place] | | | | + + + + + + + | ERYTHROCYTE | 2022-05-17 | [facility] | 34.1 | g/dl | (missing) | | MEAN | 10:54 | Health | | | | | CORPUSCULAR | | System - | | | | | HEMOGLOBIN | | [place] | | | | | CONCENTRATIO | [...] | | | | HEMOGLOBIN | | [place] | | | | | CONCENTRATIO | [...] | | | | | | | [place] | | | | + + + + + + + | ALBUMIN | 2022-05-17 | [facility] | 4.1 | g/dl | (missing) | | (G/DL) IN | 10:54 | Health | | | | | SER/PLAS | | System - | | | | | | | [place] | | | | + + + + + + + | POTASSIUM | 2022-05-17 | [facility] | 4.1 | mmol/l | (missing) | | (MMOL/L) IN | 10:54 | Health | | | | | SER/PLAS | | System - | | | | | | | [place] | | | | + + + + + + + | POTASSIUM | 2022-05-17 | [facility] | 4.1 | mmol/l | (missing) | | (MMOL/L) IN | 10:54 | Health | | | | | SER/PLAS | | System - | | | | | | | [place] | | | | + + + + + + + | | 2022-05-17 | [facility] | 4.56 | m/mcl | (missing) | | ERYTHROCYTES | 10:54 | Health | | | | | (10*6/UL) | | System - | | | | | IN BLOOD BY | | [place] | | | | | AUTOMATED | [...] | | IN BLOOD BY | | [place] | | | | | AUTOMATED | [...] | | | | AUTOMATED | | [place] | | | | | COUNT | | | | | | + + + + + + + | HEMATOCRIT | 2022-05-17 | [facility] | 41.4 | % | (missing) | | (%) IN BLOOD | 10:54 | Health | | | | | BY | | System - | | | | | AUTOMATED | | [place] | | | | | COUNT | | | | | | + + + + + + + | | 2022-05-17 | [facility] | 5.7 | % | (missing) | | MONOCYTES/10 | 10:54 | Health | | | | | 0 LEUKOCYTES | | System - | | | | | IN BLOOD BY | | [place] | | | | | AUTOMATED | [...] | | IN BLOOD BY | | [place] | | | | | AUTOMATED | [...] | | | | AUTOMATED | | [place] | | | | | COUNT | | | | | | + + + + + + + | NEUTROPHILS | 2022-05-17 | [facility] | 5.7 | k/mcl | (missing) | | (10*3/UL) | 10:54 | Health | | | | | IN BLOOD BY | | System - | | | | | AUTOMATED | | [place] | | | | | COUNT | | | | | | + + + + + + + | PROTEIN | 2022-05-17 | [facility] | 6.3 | g/dl | (missing) | | (G/DL) IN | 10:54 | Health | | | | | SER/PLAS | | System - | | | | | | | [place] | | | | + + + + + + + | PROTEIN | 2022-05-17 | [facility] | 6.3 | g/dl | (missing) | | (G/DL) IN | 10:54 | Health | | | | | SER/PLAS | | System - | | | | | | | [place] | | | | + + + + + + + | | 2022-05-17 | [facility] | 60.6 | % | (missing) | | NEUTROPHILS/ | 10:54 | Health | | | | | 100 | | System - | | | | | LEUKOCYTES | | [place] | | | | | IN BLOOD [...] | | | | LEUKOCYTES | | [place] | | | | | IN BLOOD [...] | | | | SER/PLAS | | [place] | | | | + + + + + + + | ALKALINE | 2022-05-17 | [facility] | 66 | u/l | (missing) | | PHOSPHATASE | 10:54 | Health | | | | | (U/L) IN | | System - | | | | | SER/PLAS | | [place] | | | | + + + + + + + | GLUCOSE, | 2022-05-17 | [facility] | 75 | mg/dl | (missing) | | RANDOM | 10:54 | Health | | | | | (MG/DL) IN | | System - | | | | | SER/PLAS | | [place] | | | | + + + + + + + | GLUCOSE, | 2022-05-17 | [facility] | 75 | mg/dl | (missing) | | RANDOM | 10:54 | Health | | | | | (MG/DL) IN | | System - | | | | | SER/PLAS | | [place] | | | | + + + + + + + | CALCIUM | 2022-05-17 | [facility] | 9.0 | mg/dl | (missing) | | (MG/DL) IN | 10:54 | Health | | | | | SER/PLAS | | System - | | | | | | | [place] | | | | + + + + + + + | CALCIUM | 2022-05-17 | [facility] | 9.0 | mg/dl | (missing) | | (MG/DL) IN | 10:54 | Health | | | | | SER/PLAS | | System - | | | | | | | [place] | | | | + + + + + + + | ANION GAP | 2022-05-17 | [facility] | 9.0 | mmol/l | (missing) | | IN SER/PLAS | 10:54 | Health | | | | | | | System - | | | | | | | [place] | | | | + + + + + + + | ANION GAP | 2022-05-17 | [facility] | 9.0 | mmol/l | (missing) | | IN SER/PLAS | 10:54 | Health | | | | | | | System - | | | | | | | [place] | | | | + + + + + + + | | 2022-05-17 | [facility] | 9.4 | k/mcl | (missing) | | LEUKOCYTES(1 | 10:54 | Health | | | | | 0*3/UL) IN | | System - | | | | | BLOOD BY | | [place] | | | | | AUTOMATED | [...] | | | BLOOD BY | | [place] | | | | | AUTOMATED | [...] | | | BLOOD BY | | [place] | | | | | AUTOMATED | [...] | | | BLOOD BY | | [place] | | | | | AUTOMATED | [...] | | | VOLUME (FL) | | [place] | | | | | BY AUTOMATED [...] | | | VOLUME (FL) | | [place] | | | | | BY AUTOMATED [...] | | | | SER/PLAS | | [place] | | | | + + + + + + + | BHCG QUAL | 2022-05-17 | [facility] | Negative | (missing) | (missing) | | (CHORIOGONAD | 10:54 | Health | | | | | OTROPIN) IN | | System - | | | | | SER/PLAS | | [place] | | | | + + + [...] | | | IN SER/PLAS | | [place] | | | | + + + +--------+ + + | TSH | 2022-05-17 | [facility] | 1.64 | mciu/ml | (missing) | | (THYROTROPIN | 11:22 | Health | | | | | ) (UIU/ML) | | System - | | | | | IN SER/PLAS | | [place] | | | | + + + +--------+ + + + + | Result panel 70 | + + + + + + + + + | INFLUENZA A | 2022-05-17 | [facility] | Negative | (missing) | (missing) | | | 11:55 | Health | | | | | | | System - | | | | | | | [place] | | | | + + + + + + + | INFLUENZA B | 2022-05-17 | [facility] | Negative | (missing) | (missing) | | | 11:55 | Health | | | | | | | System - | | | | | | | [place] | | | | + + + + + + + | RSV | 2022-05-17 | [facility] | Negative | (missing) | (missing) | | | 11:55 | Health | | | | | | | System - | | | | | | | [place] | | | | + + + + + + + | SARS-COV-2 | 2022-05-17 | [facility] | Negative | (missing) | (missing) | | (COVID19) | 11:55 | Health | | | | | CEPHEID PCR | | System - | | | | | | | [place] | | | | + + + + + + + | INFLUENZA A | 2022-05-17 | [facility] | Negative | (missing) | (missing) | | | 11:55 | Health | | | | | | | System - | | | | | | | [place] | | | | + + + + + + + | INFLUENZA B | 2022-05-17 | [facility] | Negative | (missing) | (missing) | | | 11:55 | Health | | | | | | | System - | | | | | | | [place] | | | | + + + + + + + | RSV | 2022-05-17 | [facility] | Negative | (missing) | (missing) | | | 11:55 | Health | | | | | | | System - | | | | | | | [place] | | | | + + + + + + + | SARS-COV-2 | 2022-05-17 | [facility] | Negative | (missing) | (missing) | | (COVID19) | 11:55 | Health | | | | | CEPHEID PCR | | System - | | | | | | | [place] | | | | + + + [...] ? | | | RATE) | | [place] | | | | | ML/MIN/1.73 | [...] ? | | | RATE) | | [place] | | | | | ML/MIN/1.73 | [...] | | | | | | | [place] | | | | + + + + + + + | ALCOHOL | 2022-07-16 | [facility] | < | g/dl | (missing) | | (G/DL) IN | 19:05 | Health | | | | | SER/PLAS | | System - | | | | | | | [place] | | | | + + + + + + + | | 2022-07-16 | [facility] | < | mcg/ml | (missing) | | ACETAMINOPHE | 19:05 | Health | | | | | N (UG/ML) IN | | System - | | | | | SER/PLAS | | [place] | | | | + + + + + + + | | 2022-07-16 | [facility] | < | mcg/ml | (missing) | | ACETAMINOPHE | 19:05 | Health | | | | | N (UG/ML) IN | | System - | | | | | SER/PLAS | | [place] | | | | + + + + + + + | SALICYLATE | 2022-07-16 | [facility] | < | mg/dl | (missing) | | (MG/DL) IN | 19:05 | Health | | | | | SER/PLAS | | System - | | | | | | | [place] | | | | + + + + + + + | SALICYLATE | 2022-07-16 | [facility] | < | mg/dl | (missing) | | (MG/DL) IN | 19:05 | Health | | | | | SER/PLAS | | System - | | | | | | | [place] | | | | + + + + + + + | NRBC/100 | 2022-07-16 | [facility] | 0.0 | % | (missing) | | WBCS BY | 19:05 | Health | | | | | AUTOMATED | | System - | | | | | COUNT | | [place] | | | | + + + + + + + | | 2022-07-16 | [facility] | 0.0 | % | (missing) | | EOSINOPHILS/ | 19:05 | Health | | | | | 100 | | System - | | | | | LEUKOCYTES | | [place] | | | | | IN BLOOD [...] | | | | COUNT | | [place] | | | | + + + + + + + | | 2022-07-16 | [facility] | 0.0 | % | (missing) | | EOSINOPHILS/ | 19:05 | Health | | | | | 100 | | System - | | | | | LEUKOCYTES | | [place] | | | | | IN BLOOD [...] | | | BY AUTOMATED | | [place] | | | | | COUNT | | | | | | + + + + + + + | EOSINOPHILS | 2022-07-16 | [facility] | 0.0 | k/mcl | (missing) | | (10*3/UL) | 19:05 | Health | | | | | IN BLOOD BY | | System - | | | | | AUTOMATED | | [place] | | | | | COUNT | | | | | | + + + + + + + | EOSINOPHILS | 2022-07-16 | [facility] | 0.0 | k/mcl | (missing) | | (10*3/UL) | 19:05 | Health | | | | | IN BLOOD BY | | System - | | | | | AUTOMATED | | [place] | | | | | COUNT | | | | | | + + + + + + + | | 2022-07-16 | [facility] | 0.0 | k/mcl | (missing) | | NRBC(10*3/UL | 19:05 | Health | | | | | ) IN BLOOD | | System - | | | | | BY AUTOMATED | | [place] | | | | | COUNT | | | | | | + + + + + + + | BASOPHILS | 2022-07-16 | [facility] | 0.1 | k/mcl | (missing) | | (10*3/UL) IN | 19:05 | Health | | | | | BLOOD BY | | System - | | | | | AUTOMATED | | [place] | | | | | COUNT | | | | | | + + + + + + + | BASOPHILS | 2022-07-16 | [facility] | 0.1 | k/mcl | (missing) | | (10*3/UL) IN | 19:05 | Health | | | | | BLOOD BY | | System - | | | | | AUTOMATED | | [place] | | | | | COUNT | | | | | | + + + + + + + | BILIRUBIN | 2022-07-16 | [facility] | 0.3 | mg/dl | (missing) | | TOTAL | 19:05 | Health | | | | | (MG/DL) IN | | System - | | | | | SER/PLAS | | [place] | | | | + + + + + + + | BILIRUBIN | 2022-07-16 | [facility] | 0.3 | mg/dl | (missing) | | TOTAL | 19:05 | Health | | | | | (MG/DL) IN | | System - | | | | | SER/PLAS | | [place] | | | | + + + + + + + | IMMATURE | 2022-07-16 | [facility] | 0.33 | k/mcl | (missing) | | GRANULOCYTE | 19:05 | Health | | | | | (ABS) | | System - | | | | | | | [place] | | | | + + + + + + + | IMMATURE | 2022-07-16 | [facility] | 0.33 | k/mcl | (missing) | | GRANULOCYTE | 19:05 | Health | | | | | (ABS) | | System - | | | | | | | [place] | | | | + + + + + + + | MONOCYTES | 2022-07-16 | [facility] | 0.7 | k/mcl | (missing) | | (10*3/UL) IN | 19:05 | Health | | | | | BLOOD BY | | System - | | | | | AUTOMATED | | [place] | | | | | COUNT | | | | | | + + + + + + + | MONOCYTES | 2022-07-16 | [facility] | 0.7 | k/mcl | (missing) | | (10*3/UL) IN | 19:05 | Health | | | | | BLOOD BY | | System - | | | | | AUTOMATED | | [place] | | | | | COUNT | | | | | | + + + + + + + | | 2022-07-16 | [facility] | 0.8 | % | (missing) | | BASOPHILS/10 | 19:05 | Health | | | | | 0 LEUKOCYTES | | System - | | | | | IN BLOOD BY | | [place] | | | | | AUTOMATED | [...] | | IN BLOOD BY | | [place] | | | | | AUTOMATED | [...] | | | | | | | [place] | | | | + + + + + + + | CREATININE | 2022-07-16 | [facility] | 0.8 | mg/dl | (missing) | | (MG/DL) IN | 19:05 | Health | | | | | SER/PLAS | | System - | | | | | | | [place] | | | | + + + + + + + | BLOOD UREA | 2022-07-16 | [facility] | 10 | mg/dl | (missing) | | NITROGEN | 19:05 | Health | | | | | (BUN) | | System - | | | | | (MG/DL) IN | | [place] | | | | | SER/PLAS | | | | | | + + + + + + + | BLOOD UREA | 2022-07-16 | [facility] | 10 | mg/dl | (missing) | | NITROGEN | 19:05 | Health | | | | | (BUN) | | System - | | | | | (MG/DL) IN | | [place] | | | | | SER/PLAS | | | | | | + + + + + + + | CHLORIDE | 2022-07-16 | [facility] | 106 | mmol/l | (missing) | | (MMOL/L) IN | 19:05 | Health | | | | | SER/PLAS | | System - | | | | | | | [place] | | | | + + + + + + + | CHLORIDE | 2022-07-16 | [facility] | 106 | mmol/l | (missing) | | (MMOL/L) IN | 19:05 | Health | | | | | SER/PLAS | | System - | | | | | | | [place] | | | | + + + + + + + | GLUCOSE, | 2022-07-16 | [facility] | 115 | mg/dl | (missing) | | RANDOM | 19:05 | Health | | | | | (MG/DL) IN | | System - | | | | | SER/PLAS | | [place] | | | | + + + + + + + | GLUCOSE, | 2022-07-16 | [facility] | 115 | mg/dl | (missing) | | RANDOM | 19:05 | Health | | | | | (MG/DL) IN | | System - | | | | | SER/PLAS | | [place] | | | | + + + + + + + | ANION GAP | 2022-07-16 | [facility] | 12.0 | mmol/l | (missing) | | IN SER/PLAS | 19:05 | Health | | | | | | | System - | | | | | | | [place] | | | | + + + + + + + | ANION GAP | 2022-07-16 | [facility] | 12.0 | mmol/l | (missing) | | IN SER/PLAS | 19:05 | Health | | | | | | | System - | | | | | | | [place] | | | | + + + + + + + | | 2022-07-16 | [facility] | 14.4 | k/mcl | (missing) | | LEUKOCYTES(1 | 19:05 | Health | | | | | 0*3/UL) IN | | System - | | | | | BLOOD BY | | [place] | | | | | AUTOMATED | [...] | | | BLOOD BY | | [place] | | | | | AUTOMATED | [...] | | | | WIDTH | | [place] | | | | | (RATIO) BY [...] | | | | WIDTH | | [place] | | | | | (RATIO) BY [...] | | | | | | | [place] | | | | + + + + + + + | SODIUM | 2022-07-16 | [facility] | 141 | mmol/l | (missing) | | (MMOL/L) IN | 19:05 | Health | | | | | SER/PLAS | | System - | | | | | | | [place] | | | | + + + + + + + | HEMOGLOBIN | 2022-07-16 | [facility] | 15.9 | g/dl | (missing) | | (G/DL) IN | 19:05 | Health | | | | | BLOOD | | System - | | | | | | | [place] | | | | + + + + + + + | HEMOGLOBIN | 2022-07-16 | [facility] | 15.9 | g/dl | (missing) | | (G/DL) IN | 19:05 | Health | | | | | BLOOD | | System - | | | | | | | [place] | | | | + + + + + + + | IMMATURE | 2022-07-16 | [facility] | 2.3 | % | (missing) | | GRANULOCYTE | 19:05 | Health | | | | | % (AUTO) | | System - | | | | | | | [place] | | | | + + + + + + + | IMMATURE | 2022-07-16 | [facility] | 2.3 | % | (missing) | | GRANULOCYTE | 19:05 | Health | | | | | % (AUTO) | | System - | | | | | | | [place] | | | | + + + + + + + | CARBON | 2022-07-16 | [facility] | 23 | mmol/l | (missing) | | DIOXIDE | 19:05 | Health | | | | | (CO2), TOTAL | | System - | | | | | (MMOL/L) IN | | [place] | | | | | SER/PLAS | | | | | | + + + + + + + | CARBON | 2022-07-16 | [facility] | 23 | mmol/l | (missing) | | DIOXIDE | 19:05 | Health | | | | | (CO2), TOTAL | | System - | | | | | (MMOL/L) IN | | [place] | | | | | SER/PLAS | | | | | | + + + + + + + | ASPARTATE | 2022-07-16 | [facility] | 26 | u/l | (missing) | | AMINOTRANSFE | 19:05 | Health | | | | | RASE (SGOT) | | System - | | | | | (U/L) IN | | [place] | | | | | SER/PLAS | | | | | | + + + + + + + | ASPARTATE | 2022-07-16 | [facility] | 26 | u/l | (missing) | | AMINOTRANSFE | 19:05 | Health | | | | | RASE (SGOT) | | System - | | | | | (U/L) IN | | [place] | | | | | SER/PLAS | | | | | | + + + + + + + | POTASSIUM | 2022-07-16 | [facility] | 3.7 | mmol/l | (missing) | | (MMOL/L) IN | 19:05 | Health | | | | | SER/PLAS | | System - | | | | | | | [place] | | | | + + + + + + + | POTASSIUM | 2022-07-16 | [facility] | 3.7 | mmol/l | (missing) | | (MMOL/L) IN | 19:05 | Health | | | | | SER/PLAS | | System - | | | | | | | [place] | | | | + + + + + + + | ERYTHROCYTE | 2022-07-16 | [facility] | 30.2 | pg | (missing) | | MEAN | 19:05 | Health | | | | | CORPUSCULAR | | System - | | | | | HEMOGLOBIN | | [place] | | | | | (PG) BY [...] | | | | HEMOGLOBIN | | [place] | | | | | (PG) BY [...] | | | | HEMOGLOBIN | | [place] | | | | | CONCENTRATIO | [...] | | | | HEMOGLOBIN | | [place] | | | | | CONCENTRATIO | [...] | | | | LEUKOCYTES | | [place] | | | | | IN BLOOD [...] | | | | LEUKOCYTES | | [place] | | | | | IN BLOOD [...] | | | | | | | [place] | | | | + + + + + + + | ALBUMIN | 2022-07-16 | [facility] | 4.4 | g/dl | (missing) | | (G/DL) IN | 19:05 | Health | | | | | SER/PLAS | | System - | | | | | | | [place] | | | | + + + + + + + | ALANINE | 2022-07-16 | [facility] | 40 | u/l | (missing) | | AMINOTRANSFE | 19:05 | Health | | | | | RASE (SGPT) | | System - | | | | | (U/L) IN | | [place] | | | | | SER/PLAS | | | | | | + + + + + + + | ALANINE | 2022-07-16 | [facility] | 40 | u/l | (missing) | | AMINOTRANSFE | 19:05 | Health | | | | | RASE (SGPT) | | System - | | | | | (U/L) IN | | [place] | | | | | SER/PLAS | | | | | | + + + + + + + | HEMATOCRIT | 2022-07-16 | [facility] | 46.9 | % | (missing) | | (%) IN BLOOD | 19:05 | Health | | | | | BY | | System - | | | | | AUTOMATED | | [place] | | | | | COUNT | | | | | | + + + + + + + | HEMATOCRIT | 2022-07-16 | [facility] | 46.9 | % | (missing) | | (%) IN BLOOD | 19:05 | Health | | | | | BY | | System - | | | | | AUTOMATED | | [place] | | | | | COUNT | | | | | | + + + + + + + | PLATELETS | 2022-07-16 | [facility] | 488 | k/mcl | (missing) | | (10*3/UL) IN | 19:05 | Health | | | | | BLOOD | | System - | | | | | AUTOMATED | | [place] | | | | | COUNT | | | | | | + + + + + + + | PLATELETS | 2022-07-16 | [facility] | 488 | k/mcl | (missing) | | (10*3/UL) IN | 19:05 | Health | | | | | BLOOD | | System - | | | | | AUTOMATED | | [place] | | | | | COUNT | | | | | | + + + + + + + | | 2022-07-16 | [facility] | 5.2 | % | (missing) | | MONOCYTES/10 | 19:05 | Health | | | | | 0 LEUKOCYTES | | System - | | | | | IN BLOOD BY | | [place] | | | | | AUTOMATED | [...] | | IN BLOOD BY | | [place] | | | | | AUTOMATED | [...] | | IN BLOOD BY | | [place] | | | | | AUTOMATED | [...] | | IN BLOOD BY | | [place] | | | | | AUTOMATED | [...] | | | | AUTOMATED | | [place] | | | | | COUNT | | | | | | + + + + + + + | LYMPHOCYTES | 2022-07-16 | [facility] | 5.6 | k/mcl | (missing) | | (10*3/UL) | 19:05 | Health | | | | | IN BLOOD BY | | System - | | | | | AUTOMATED | | [place] | | | | | COUNT | | | | | | + + + + + + + | | 2022-07-16 | [facility] | 52.6 | % | (missing) | | NEUTROPHILS/ | 19:05 | Health | | | | | 100 | | System - | | | | | LEUKOCYTES | | [place] | | | | | IN BLOOD [...] | | | | LEUKOCYTES | | [place] | | | | | IN BLOOD [...] | | | | | | | [place] | | | | + + + + + + + | PROTEIN | 2022-07-16 | [facility] | 7.2 | g/dl | (missing) | | (G/DL) IN | 19:05 | Health | | | | | SER/PLAS | | System - | | | | | | | [place] | | | | + + + + + + + | NEUTROPHILS | 2022-07-16 | [facility] | 7.6 | k/mcl | (missing) | | (10*3/UL) | 19:05 | Health | | | | | IN BLOOD BY | | System - | | | | | AUTOMATED | | [place] | | | | | COUNT | | | | | | + + + + + + + | NEUTROPHILS | 2022-07-16 | [facility] | 7.6 | k/mcl | (missing) | | (10*3/UL) | 19:05 | Health | | | | | IN BLOOD BY | | System - | | | | | AUTOMATED | | [place] | | | | | COUNT | | | | | | + + + + + + + | ALKALINE | 2022-07-16 | [facility] | 87 | u/l | (missing) | | PHOSPHATASE | 19:05 | Health | | | | | (U/L) IN | | System - | | | | | SER/PLAS | | [place] | | | | + + + + + + + | ALKALINE | 2022-07-16 | [facility] | 87 | u/l | (missing) | | PHOSPHATASE | 19:05 | Health | | | | | (U/L) IN | | System - | | | | | SER/PLAS | | [place] | | | | + + + + + + + | ERYTHROCYTE | 2022-07-16 | [facility] | 89.2 | fl | (missing) | | MEAN | 19:05 | Health | | | | | CORPUSCULAR | | System - | | | | | VOLUME (FL) | | [place] | | | | | BY AUTOMATED [...] | | | VOLUME (FL) | | [place] | | | | | BY AUTOMATED [...] | | | BLOOD BY | | [place] | | | | | AUTOMATED | [...] | | | BLOOD BY | | [place] | | | | | AUTOMATED | [...] | | | | | | | [place] | | | | + + + + + + + | CALCIUM | 2022-07-16 | [facility] | 9.1 | mg/dl | (missing) | | (MG/DL) IN | 19:05 | Health | | | | | SER/PLAS | | System - | | | | | | | [place] | | | | + + + + + + + | | 2022-07-16 | [facility] | Negative | (missing) | (missing) | | BARBITURATES | 19:05 | Health | | | | | PRESENCE IN | | System - | | | | | URINE BY | | [place] | | | | | SCREEN | [...] | | | | (PRESENCE) | | [place] | | | | | IN URINE [...] | | | | SCREEN | | [place] | | | | | METHOD | | | | | | + + + + + + + | METHADONE | 2022-07-16 | [facility] | Negative | (missing) | (missing) | | (PRESENCE) | 19:05 | Health | | | | | IN URINE BY | | System - | | | | | SCREEN | | [place] | | | | | METHOD | | | | | | + + + + + + + | | 2022-07-16 | [facility] | Negative | (missing) | (missing) | | METHAMPHETAM | 19:05 | Health | | | | | INE | | System - | | | | | (PRESENCE) | | [place] | | | | | IN URINE [...] | | | | SCREEN | | [place] | | | | | METHOD | | | | | | + + + + + + + | OXYCODONE | 2022-07-16 | [facility] | Negative | (missing) | (missing) | | (PRESENCE) | 19:05 | Health | | | | | IN URINE BY | | System - | | | | | SCREEN | | [place] | | | | | METHOD | | | | | | + + + + + + + | | 2022-07-16 | [facility] | Negative | (missing) | (missing) | | PHENCYCLIDIN | 19:05 | Health | | | | | E (PRESENCE) | | System - | | | | | IN URINE BY | | [place] | | | | | SCREEN | [...] | | | BY SCREEN | | [place] | | | | | METHOD | | | | | | + + + + + + + | TRICYCLIC | 2022-07-16 | [facility] | Negative | (missing) | (missing) | | ANTIDEPRESSA | 19:05 | Health | | | | | NTS | | System - | | | | | (PRESENCE) | | [place] | | | | | IN URINE | | | | | | + + + + + + + | | 2022-07-16 | [facility] | Negative | (missing) | (missing) | | PHENCYCLIDIN | 19:05 | Health | | | | | E (PRESENCE) | | System - | | | | | IN URINE BY | | [place] | | | | | SCREEN | [...] | | | BY SCREEN | | [place] | | | | | METHOD | | | | | | + + + + + + + | OPIATES | 2022-07-16 | [facility] | Negative | (missing) | (missing) | | ([facility]) | 19:05 | Health | | | | | IN URINE BY | | System - | | | | | SCREEN | | [place] | | | | | METHOD | | | | | | + + + + + + + | TRICYCLIC | 2022-07-16 | [facility] | Negative | (missing) | (missing) | | ANTIDEPRESSA | 19:05 | Health | | | | | NTS | | System - | | | | | (PRESENCE) | | [place] | | | | | IN URINE | | | | | | + + + + + + + | AMPHETAMINE | 2022-07-16 | [facility] | Negative | (missing) | (missing) | | ([facility]) | 19:05 | Health | | | | | IN URINE BY | | System - | | | | | SCREEN | | [place] | | | | | METHOD | | | | | | + + + + + + + | | 2022-07-16 | [facility] | Negative | (missing) | (missing) | | METHAMPHETAM | 19:05 | Health | | | | | INE | | System - | | | | | ([facility]) | | [place] | | | | | IN URINE [...] | | | | SCREEN | | [place] | | | | | METHOD | | | | | | + + + + + + + | BHCG QUAL | 2022-07-16 | [facility] | Negative | (missing) | (missing) | | (CHORIOGONAD | 19:05 | Health | | | | | OTROPIN) IN | | System - | | | | | SER/PLAS | | [place] | | | | + + + + + + + | COCAINE | 2022-07-16 | [facility] | Negative | (missing) | (missing) | | ([facility]ENCE) | 19:05 | Health | | | | | IN URINE BY | | System - | | | | | SCREEN | | [place] | | | | | METHOD | | | | | | + + + + + + + | | 2022-07-16 | [facility] | Negative | (missing) | (missing) | | BARBITURATES | 19:05 | Health | | | | | PRESENCE IN | | System - | | | | | URINE BY | | [place] | | | | | SCREEN | [...] | | | | (PRESENCE) | | [place] | | | | | IN URINE [...] | | | | SCREEN | | [place] | | | | | METHOD | | | | | | + + + + + + + | BHCG QUAL | 2022-07-16 | [facility] | Negative | (missing) | (missing) | | (CHORIOGONAD | 19:05 | Health | | | | | OTROPIN) IN | | System - | | | | | SER/PLAS | | [place] | | | | + + + + + + + | AMPHETAMINE | 2022-07-16 | [facility] | Negative | (missing) | (missing) | | ([facility]ENCE) | 19:05 | Health | | | | | IN URINE BY | | System - | | | | | SCREEN | | [place] | | | | | METHOD | [...] | | | | | | | [place] | | | | + + + + + + + | CORONAVIRUS | 2022-07-16 | [facility] | Detected | (missing) | (missing) | | HKU1 | 20:07 | Health | | | | | | | System - | | | | | | | [place] | | | | + + + + + + + | ADENOVIRUS | 2022-07-16 | [facility] | Not | (missing) | (missing) | | DETECTION BY | 20:07 | Health | Detected | | | | PCR | | System - | | | | | | | [place] | | | | + + + + + + + | BORDETELLA | 2022-07-16 | [facility] | Not | (missing) | (missing) | | PARAPERTUSSI | 20:07 | Health | Detected | | | | S | | System - | | | | | | | [place] | | | | + + + + + + + | BORDETELLA | 2022-07-16 | [facility] | Not | (missing) | (missing) | | PERTUSSIS | 20:07 | Health | Detected | | | | | | System - | | | | | | | [place] | | | | + + + + + + + | | 2022-07-16 | [facility] | Not | (missing) | (missing) | | CHLAMYDOPHIL | 20:07 | Health | Detected | | | | A PNEUMONIAE | | System - | | | | | | | [place] | | | | + + + + + + + | CORONAVIRUS | 2022-07-16 | [facility] | Not | (missing) | (missing) | | 229E | 20:07 | Health | Detected | | | | | | System - | | | | | | | [place] | | | | + + + + + + + | CORONAVIRUS | 2022-07-16 | [facility] | Not | (missing) | (missing) | | NL63 | 20:07 | Health | Detected | | | | | | System - | | | | | | | [place] | | | | + + + + + + + | CORONAVIRUS | 2022-07-16 | [facility] | Not | (missing) | (missing) | | OC43 | 20:07 | Health | Detected | | | | | | System - | | | | | | | [place] | | | | + + + + + + + | INFLUENZA A | 2022-07-16 | [facility] | Not | (missing) | (missing) | | | 20:07 | Health | Detected | | | | | | System - | | | | | | | [place] | | | | + + + + + + + | INFLUENZA B | 2022-07-16 | [facility] | Not | (missing) | (missing) | | | 20:07 | Health | Detected | | | | | | System - | | | | | | | [place] | | | | + + + + + + + | | 2022-07-16 | [facility] | Not | (missing) | (missing) | | METAPNEUMOVI | 20:07 | Health | Detected | | | | KELVIN | | System - | | | | | | | [place] | | | | + + + + + + + | MYCOPLASMA | 2022-07-16 | [facility] | Not | (missing) | (missing) | | PNEUMONIAE | 20:07 | Health | Detected | | | | PCR | | System - | | | | | | | [place] | | | | + + + + + + + | | 2022-07-16 | [facility] | Not | (missing) | (missing) | | PARAINFLUENZ | 20:07 | Health | Detected | | | | A 1 | | System - | | | | | | | [place] | | | | + + + + + + + | | 2022-07-16 | [facility] | Not | (missing) | (missing) | | PARAINFLUENZ | 20:07 | Health | Detected | | | | A 2 | | System - | | | | | | | [place] | | | | + + + + + + + | | 2022-07-16 | [facility] | Not | (missing) | (missing) | | PARAINFLUENZ | 20:07 | Health | Detected | | | | A 3 | | System - | | | | | | | [place] | | | | + + + + + + + | | 2022-07-16 | [facility] | Not | (missing) | (missing) | | PARAINFLUENZ | 20:07 | Health | Detected | | | | A 4 | | System - | | | | | | | [place] | | | | + + + + + + + | | 2022-07-16 | [facility] | Not | (missing) | (missing) | | RHINOVIRUS/E | 20:07 | Health | Detected | | | | NTEROVIRUS | | System - | | | | | | | [place] | | | | + + + + + + + | RSV | 2022-07-16 | [facility] | Not | (missing) | (missing) | | | 20:07 | Health | Detected | | | | | | System - | | | | | | | [place] | | | | + + + + + + + | SARS-COV-2 | 2022-07-16 | [facility] | Not | (missing) | (missing) | | (COVID19) | 20:07 | Health | Detected | | | | BIOFIRE PCR | | System - | | | | | | | [place] | | | | + + + + + + + | BORDETELLA | 2022-07-16 | [facility] | Not | (missing) | (missing) | | PERTUSSIS | 20:07 | Health | Detected | | | | | | System - | | | | | | | [place] | | | | + + + + + + + | MYCOPLASMA | 2022-07-16 | [facility] | Not | (missing) | (missing) | | PNEUMONIAE | 20:07 | Health | Detected | | | | PCR | | System - | | | | | | | [place] | | | | + + + + + + + | | 2022-07-16 | [facility] | Not | (missing) | (missing) | | PARAINFLUENZ | 20:07 | Health | Detected | | | | A 1 | | System - | | | | | | | [place] | | | | + + + + + + + | | 2022-07-16 | [facility] | Not | (missing) | (missing) | | PARAINFLUENZ | 20:07 | Health | Detected | | | | A 2 | | System - | | | | | | | [place] | | | | + + + + + + + | | 2022-07-16 | [facility] | Not | (missing) | (missing) | | CHLAMYDOPHIL | 20:07 | Health | Detected | | | | A PNEUMONIAE | | System - | | | | | | | [place] | | | | + + + + + + + | | 2022-07-16 | [facility] | Not | (missing) | (missing) | | METAPNEUMOVI | 20:07 | Health | Detected | | | | KELVIN | | System - | | | | | | | [place] | | | | + + + + + + + | ADENOVIRUS | 2022-07-16 | [facility] | Not | (missing) | (missing) | | DETECTION BY | 20:07 | Health | Detected | | | | PCR | | System - | | | | | | | [place] | | | | + + + + + + + | INFLUENZA B | 2022-07-16 | [facility] | Not | (missing) | (missing) | | | 20:07 | Health | Detected | | | | | | System - | | | | | | | [place] | | | | + + + + + + + | RSV | 2022-07-16 | [facility] | Not | (missing) | (missing) | | | 20:07 | Health | Detected | | | | | | System - | | | | | | | [place] | | | | + + + + + + + | | 2022-07-16 | [facility] | Not | (missing) | (missing) | | RHINOVIRUS/E | 20:07 | Health | Detected | | | | NTEROVIRUS | | System - | | | | | | | [place] | | | | + + + + + + + | CORONAVIRUS | 2022-07-16 | [facility] | Not | (missing) | (missing) | | 229E | 20:07 | Health | Detected | | | | | | System - | | | | | | | [place] | | | | + + + + + + + | CORONAVIRUS | 2022-07-16 | [facility] | Not | (missing) | (missing) | | NL63 | 20:07 | Health | Detected | | | | | | System - | | | | | | | [place] | | | | + + + + + + + | CORONAVIRUS | 2022-07-16 | [facility] | Not | (missing) | (missing) | | OC43 | 20:07 | Health | Detected | | | | | | System - | | | | | | | [place] | | | | + + + + + + + | | 2022-07-16 | [facility] | Not | (missing) | (missing) | | PARAINFLUENZ | 20:07 | Health | Detected | | | | A 4 | | System - | | | | | | | [place] | | | | + + + + + + + | | 2022-07-16 | [facility] | Not | (missing) | (missing) | | PARAINFLUENZ | 20:07 | Health | Detected | | | | A 3 | | System - | | | | | | | [place] | | | | + + + + + + + | BORDETELLA | 2022-07-16 | [facility] | Not | (missing) | (missing) | | PARAPERTUSSI | 20:07 | Health | Detected | | | | S | | System - | | | | | | | [place] | | | | + + + + + + + | SARS-COV-2 | 2022-07-16 | [facility] | Not | (missing) | (missing) | | (COVID19) | 20:07 | Health | Detected | | | | BIOFIRE PCR | | System - | | | | | | | [place] | | | | + + + [...] ? | | | RATE) | | [place] | | | | | ML/MIN/1.73 | [...] ? | | | RATE) | | [place] | | | | | ML/MIN/1.73 | [...] | | | | | | | [place] | | | | + + + + + + + | ALCOHOL | 2022-08-15 | [facility] | < | g/dl | (missing) | | (G/DL) IN | 12:47 | Health | | | | | SER/PLAS | | System - | | | | | | | [place] | | | | + + + + + + + | | 2022-08-15 | [facility] | < | mcg/ml | (missing) | | ACETAMINOPHE | 12:47 | Health | | | | | N (UG/ML) IN | | System - | | | | | SER/PLAS | | [place] | | | | + + + + + + + | | 2022-08-15 | [facility] | < | mcg/ml | (missing) | | ACETAMINOPHE | 12:47 | Health | | | | | N (UG/ML) IN | | System - | | | | | SER/PLAS | | [place] | | | | + + + + + + + | SALICYLATE | 2022-08-15 | [facility] | < | mg/dl | (missing) | | (MG/DL) IN | 12:47 | Health | | | | | SER/PLAS | | System - | | | | | | | [place] | | | | + + + + + + + | SALICYLATE | 2022-08-15 | [facility] | < | mg/dl | (missing) | | (MG/DL) IN | :47 | Health | | | | | SER/PLAS | | System - | | | | | | | [place] | | | | + + + + + + + | NRBC/100 | 2022-08-15 | [facility] | 0.0 | % | (missing) | | WBCS BY | 12:47 | Health | | | | | AUTOMATED | | System - | | | | | COUNT | | [place] | | | | + + + + + + + | | 2022-08-15 | [facility] | 0.0 | % | (missing) | | EOSINOPHILS/ | 12:47 | Health | | | | | 100 | | System - | | | | | LEUKOCYTES | | [place] | | | | | IN BLOOD BY | | | | | | | AUTOMATED | | | | | | | COUNT | | | | | | + + + + + + + | NRBC/100 | 2022-08-15 | [facility] | 0.0 | % | (missing) | | WBCS BY | 47 | Health | | | | | AUTOMATED | | System - | | | | | COUNT | | [place] | | | | + + + + + + + | | 2022-08-15 | [facility] | 0.0 | % | (missing) | | EOSINOPHILS/ | 12:47 | Health | | | | | 100 | | System - | | | | | LEUKOCYTES | | [place] | | | | | IN BLOOD [...] | | | | AUTOMATED | | [place] | | | | | COUNT | | | | | | + + + + + + + | | 2022-08-15 | [facility] | 0.0 | k/mcl | (missing) | | NRBC(10*3/UL | 12:47 | Health | | | | | ) IN BLOOD | | System - | | | | | BY AUTOMATED | | [place] | | | | | COUNT | | | | | | + + + + + + + | EOSINOPHILS | 2022-08-15 | [facility] | 0.0 | k/mcl | (missing) | | (10*3/UL) | 12:47 | Health | | | | | IN BLOOD BY | | System - | | | | | AUTOMATED | | [place] | | | | | COUNT | | | | | | + + + + + + + | BASOPHILS | 2022-08-15 | [facility] | 0.0 | k/mcl | (missing) | | (10*3/UL) IN | 12:47 | Health | | | | | BLOOD BY | | System - | | | | | AUTOMATED | | [place] | | | | | COUNT | | | | | | + + + + + + + | EOSINOPHILS | 2022-08-15 | [facility] | 0.0 | k/mcl | (missing) | | (10*3/UL) | 12:47 | Health | | | | | IN BLOOD BY | | System - | | | | | AUTOMATED | | [place] | | | | | COUNT | | | | | | + + + + + + + | | 2022-08-15 | [facility] | 0.0 | k/mcl | (missing) | | NRBC(10*3/UL | 12:47 | Health | | | | | ) IN BLOOD | | System - | | | | | BY AUTOMATED | | [place] | | | | | COUNT | | | | | | + + + + + + + | IMMATURE | 2022-08-15 | [facility] | 0.03 | k/mcl | (missing) | | GRANULOCYTE | 12:47 | Health | | | | | (ABS) | | System - | | | | | | | [place] | | | | + + + + + + + | IMMATURE | 2022-08-15 | [facility] | 0.03 | k/mcl | (missing) | | GRANULOCYTE | 12:47 | Health | | | | | (ABS) | | System - | | | | | | | [place] | | | | + + + + + + + | IMMATURE | 2022-08-15 | [facility] | 0.3 | % | (missing) | | GRANULOCYTE | 12:47 | Health | | | | | % (AUTO) | | System - | | | | | | | [place] | | | | + + + + + + + | | 2022-08-15 | [facility] | 0.3 | % | (missing) | | BASOPHILS/10 | 12:47 | Health | | | | | 0 LEUKOCYTES | | System - | | | | | IN BLOOD BY | | [place] | | | | | AUTOMATED | [...] | | IN BLOOD BY | | [place] | | | | | AUTOMATED | [...] | | | | | | | [place] | | | | + + + + + + + | BILIRUBIN | 2022-08-15 | [facility] | 0.3 | mg/dl | (missing) | | TOTAL | 12:47 | Health | | | | | (MG/DL) IN | | System - | | | | | SER/PLAS | | [place] | | | | + + + + + + + | BILIRUBIN | 2022-08-15 | [facility] | 0.3 | mg/dl | (missing) | | TOTAL | 12:47 | Health | | | | | (MG/DL) IN | | System - | | | | | SER/PLAS | | [place] | | | | + + + + + + + | MONOCYTES | 2022-08-15 | [facility] | 0.5 | k/mcl | (missing) | | (10*3/UL) IN | 12:47 | Health | | | | | BLOOD BY | | System - | | | | | AUTOMATED | | [place] | | | | | COUNT | | | | | | + + + + + + + | MONOCYTES | 2022-08-15 | [facility] | 0.5 | k/mcl | (missing) | | (10*3/UL) IN | 12:47 | Health | | | | | BLOOD BY | | System - | | | | | AUTOMATED | | [place] | | | | | COUNT | | | | | | + + + + + + + | CREATININE | 2022-08-15 | [facility] | 0.8 | mg/dl | (missing) | | (MG/DL) IN | 12:47 | Health | | | | | SER/PLAS | | System - | | | | | | | [place] | | | | + + + + + + + | CREATININE | 2022-08-15 | [facility] | 0.8 | mg/dl | (missing) | | (MG/DL) IN | 12:47 | Health | | | | | SER/PLAS | | System - | | | | | | | [place] | | | | + + + + + + + | CHLORIDE | 2022-08-15 | [facility] | 107 | mmol/l | (missing) | | (MMOL/L) IN | 12:47 | Health | | | | | SER/PLAS | | System - | | | | | | | [place] | | | | + + + + + + + | CHLORIDE | 2022-08-15 | [facility] | 107 | mmol/l | (missing) | | (MMOL/L) IN | 12:47 | Health | | | | | SER/PLAS | | System - | | | | | | | [place] | | | | + + + + + + + | GLUCOSE, | 2022-08-15 | [facility] | 123 | mg/dl | (missing) | | RANDOM | 12:47 | Health | | | | | (MG/DL) IN | | System - | | | | | SER/PLAS | | [place] | | | | + + + + + + + | GLUCOSE, | 2022-08-15 | [facility] | 123 | mg/dl | (missing) | | RANDOM | 12:47 | Health | | | | | (MG/DL) IN | | System - | | | | | SER/PLAS | | [place] | | | | + + + + + + + | ERYTHROCYTE | 2022-08-15 | [facility] | 13.6 | % | (missing) | | | 12:47 | Health | | | | | DISTRIBUTION | | System - | | | | | WIDTH | | [place] | | | | | (RATIO) BY [...] | | | | WIDTH | | [place] | | | | | (RATIO) BY [...] | | | | | | | [place] | | | | + + + + + + + | ANION GAP | 2022-08-15 | [facility] | 14.0 | mmol/l | (missing) | | IN SER/PLAS | 12:47 | Health | | | | | | | System - | | | | | | | [place] | | | | + + + + + + + | HEMOGLOBIN | 2022-08-15 | [facility] | 14.8 | g/dl | (missing) | | (G/DL) IN | 12:47 | Health | | | | | BLOOD | | System - | | | | | | | [place] | | | | + + + + + + + | HEMOGLOBIN | 2022-08-15 | [facility] | 14.8 | g/dl | (missing) | | (G/DL) IN | 12:47 | Health | | | | | BLOOD | | System - | | | | | | | [place] | | | | + + + + + + + | SODIUM | 2022-08-15 | [facility] | 142 | mmol/l | (missing) | | (MMOL/L) IN | 12:47 | Health | | | | | SER/PLAS | | System - | | | | | | | [place] | | | | + + + + + + + | SODIUM | 2022-08-15 | [facility] | 142 | mmol/l | (missing) | | (MMOL/L) IN | 12:47 | Health | | | | | SER/PLAS | | System - | | | | | | | [place] | | | | + + + + + + + | CARBON | 2022-08-15 | [facility] | 21 | mmol/l | (missing) | | DIOXIDE | 12:47 | Health | | | | | (CO2), TOTAL | | System - | | | | | (MMOL/L) IN | | [place] | | | | | SER/PLAS | | | | | | + + + + + + + | CARBON | 2022-08-15 | [facility] | 21 | mmol/l | (missing) | | DIOXIDE | 12:47 | Health | | | | | (CO2), TOTAL | | System - | | | | | (MMOL/L) IN | | [place] | | | | | SER/PLAS | | | | | | + + + + + + + | ASPARTATE | 2022-08-15 | [facility] | 27 | u/l | (missing) | | AMINOTRANSFE | 12:47 | Health | | | | | RASE (SGOT) | | System - | | | | | (U/L) IN | | [place] | | | | | SER/PLAS | | | | | | + + + + + + + | ASPARTATE | 2022-08-15 | [facility] | 27 | u/l | (missing) | | AMINOTRANSFE | 12:47 | Health | | | | | RASE (SGOT) | | System - | | | | | (U/L) IN | | [place] | | | | | SER/PLAS | | | | | | + + + + + + + | POTASSIUM | 2022-08-15 | [facility] | 3.1 | mmol/l | (missing) | | (MMOL/L) IN | 12:47 | Health | | | | | SER/PLAS | | System - | | | | | | | [place] | | | | + + + + + + + | POTASSIUM | 2022-08-15 | [facility] | 3.1 | mmol/l | (missing) | | (MMOL/L) IN | 12:47 | Health | | | | | SER/PLAS | | System - | | | | | | | [place] | | | | + + + + + + + | LYMPHOCYTES | 2022-08-15 | [facility] | 3.8 | k/mcl | (missing) | | (10*3/UL) | 12:47 | Health | | | | | IN BLOOD BY | | System - | | | | | AUTOMATED | | [place] | | | | | COUNT | | | | | | + + + + + + + | LYMPHOCYTES | 2022-08-15 | [facility] | 3.8 | k/mcl | (missing) | | (10*3/UL) | 12:47 | Health | | | | | IN BLOOD BY | | System - | | | | | AUTOMATED | | [place] | | | | | COUNT | | | | | | + + + + + + + | ERYTHROCYTE | 2022-08-15 | [facility] | 30.4 | pg | (missing) | | MEAN | 12:47 | Health | | | | | CORPUSCULAR | | System - | | | | | HEMOGLOBIN | | [place] | | | | | (PG) BY [...] | | | | HEMOGLOBIN | | [place] | | | | | (PG) BY [...] | | | (U/L) IN | | [place] | | | | | SER/PLAS | | | | | | + + + + + + + | ALANINE | 2022-08-15 | [facility] | 32 | u/l | (missing) | | AMINOTRANSFE | 12:47 | Health | | | | | RASE (SGPT) | | System - | | | | | (U/L) IN | | [place] | | | | | SER/PLAS | | | | | | + + + + + + + | ERYTHROCYTE | 2022-08-15 | [facility] | 34.9 | g/dl | (missing) | | MEAN | 12:47 | Health | | | | | CORPUSCULAR | | System - | | | | | HEMOGLOBIN | | [place] | | | | | CONCENTRATIO | [...] | | | | HEMOGLOBIN | | [place] | | | | | CONCENTRATIO | [...] | | | | AUTOMATED | | [place] | | | | | COUNT | | | | | | + + + + + + + | PLATELETS | 2022-08-15 | [facility] | 385 | k/mcl | (missing) | | (10*3/UL) IN | 12:47 | Health | | | | | BLOOD | | System - | | | | | AUTOMATED | | [place] | | | | | COUNT | | | | | | + + + + + + + | ALBUMIN | 2022-08-15 | [facility] | 4.3 | g/dl | (missing) | | (G/DL) IN | 12:47 | Health | | | | | SER/PLAS | | System - | | | | | | | [place] | | | | + + + + + + + | ALBUMIN | 2022-08-15 | [facility] | 4.3 | g/dl | (missing) | | (G/DL) IN | 12:47 | Health | | | | | SER/PLAS | | System - | | | | | | | [place] | | | | + + + + + + + | | 2022-08-15 | [facility] | 4.87 | m/mcl | (missing) | | ERYTHROCYTES | 12:47 | Health | | | | | (10*6/UL) | | System - | | | | | IN BLOOD BY | | [place] | | | | | AUTOMATED | [...] | | IN BLOOD BY | | [place] | | | | | AUTOMATED | [...] | | | | AUTOMATED | | [place] | | | | | COUNT | | | | | | + + + + + + + | NEUTROPHILS | 2022-08-15 | [facility] | 4.9 | k/mcl | (missing) | | (10*3/UL) | 12:47 | Health | | | | | IN BLOOD BY | | System - | | | | | AUTOMATED | | [place] | | | | | COUNT | | | | | | + + + + + + + | | 2022-08-15 | [facility] | 41.2 | % | (missing) | | LYMPHOCYTES/ | 12:47 | Health | | | | | 100 | | System - | | | | | LEUKOCYTES | | [place] | | | | | IN BLOOD [...] | | | | LEUKOCYTES | | [place] | | | | | IN BLOOD [...] | | | | AUTOMATED | | [place] | | | | | COUNT | | | | | | + + + + + + + | HEMATOCRIT | 2022-08-15 | [facility] | 42.4 | % | (missing) | | (%) IN BLOOD | 12:47 | Health | | | | | BY | | System - | | | | | AUTOMATED | | [place] | | | | | COUNT | | | | | | + + + + + + + | | 2022-08-15 | [facility] | 5.1 | % | (missing) | | MONOCYTES/10 | 12:47 | Health | | | | | 0 LEUKOCYTES | | System - | | | | | IN BLOOD BY | | [place] | | | | | AUTOMATED | [...] | | IN BLOOD BY | | [place] | | | | | AUTOMATED | [...] | | | | LEUKOCYTES | | [place] | | | | | IN BLOOD [...] | | | | LEUKOCYTES | | [place] | | | | | IN BLOOD [...] | | | (MG/DL) IN | | [place] | | | | | SER/PLAS | | | | | | + + + + + + + | BLOOD UREA | 2022-08-15 | [facility] | 7 | mg/dl | (missing) | | NITROGEN | 12:47 | Health | | | | | (BUN) | | System - | | | | | (MG/DL) IN | | [place] | | | | | SER/PLAS | | | | | | + + + + + + + | PROTEIN | 2022-08-15 | [facility] | 7.0 | g/dl | (missing) | | (G/DL) IN | 12:47 | Health | | | | | SER/PLAS | | System - | | | | | | | [place] | | | | + + + + + + + | PROTEIN | 2022-08-15 | [facility] | 7.0 | g/dl | (missing) | | (G/DL) IN | 12:47 | Health | | | | | SER/PLAS | | System - | | | | | | | [place] | | | | + + + + + + + | ALKALINE | 2022-08-15 | [facility] | 75 | u/l | (missing) | | PHOSPHATASE | 12:47 | Health | | | | | (U/L) IN | | System - | | | | | SER/PLAS | | [place] | | | | + + + + + + + | ALKALINE | 2022-08-15 | [facility] | 75 | u/l | (missing) | | PHOSPHATASE | 12:47 | Health | | | | | (U/L) IN | | System - | | | | | SER/PLAS | | [place] | | | | + + + + + + + | CALCIUM | 2022-08-15 | [facility] | 8.3 | mg/dl | (missing) | | (MG/DL) IN | 12:47 | Health | | | | | SER/PLAS | | System - | | | | | | | [place] | | | | + + + + + + + | CALCIUM | 2022-08-15 | [facility] | 8.3 | mg/dl | (missing) | | (MG/DL) IN | 12:47 | Health | | | | | SER/PLAS | | System - | | | | | | | [place] | | | | + + + + + + + | ERYTHROCYTE | 2022-08-15 | [facility] | 87.1 | fl | (missing) | | MEAN | 12:47 | Health | | | | | CORPUSCULAR | | System - | | | | | VOLUME (FL) | | [place] | | | | | BY AUTOMATED [...] | | | VOLUME (FL) | | [place] | | | | | BY AUTOMATED [...] | | | BLOOD BY | | [place] | | | | | AUTOMATED | [...] | | | BLOOD BY | | [place] | | | | | AUTOMATED | [...] | | | BLOOD BY | | [place] | | | | | AUTOMATED | [...] | | | BLOOD BY | | [place] | | | | | AUTOMATED | [...] | | | URINE BY | | [place] | | | | | SCREEN | [...] | | | | (PRESENCE) | | [place] | | | | | IN URINE [...] | | | | SCREEN | | [place] | | | | | METHOD | | | | | | + + + + + + + | METHADONE | 2022-08-15 | [facility] | Negative | (missing) | (missing) | | (PRESENCE) | 12:47 | Health | | | | | IN URINE BY | | System - | | | | | SCREEN | | [place] | | | | | METHOD | | | | | | + + + + + + + | OPIATES | 2022-08-15 | [facility] | Negative | (missing) | (missing) | | (PRESENCE) | 12:47 | Health | | | | | IN URINE BY | | System - | | | | | SCREEN | | [place] | | | | | METHOD | | | | | | + + + + + + + | OXYCODONE | 2022-08-15 | [facility] | Negative | (missing) | (missing) | | (PRESENCE) | 12:47 | Health | | | | | IN URINE BY | | System - | | | | | SCREEN | | [place] | | | | | METHOD | | | | | | + + + + + + + | | 2022-08-15 | [facility] | Negative | (missing) | (missing) | | PHENCYCLIDIN | 12:47 | Health | | | | | E (PRESENCE) | | System - | | | | | IN URINE BY | | [place] | | | | | SCREEN | [...] | | | | (PRESENCE) | | [place] | | | | | IN URINE | | | | | | + + + + + + + | | 2022-08-15 | [facility] | Negative | (missing) | (missing) | | PHENCYCLIDIN | 12:47 | Health | | | | | E (PRESENCE) | | System - | | | | | IN URINE BY | | [place] | | | | | SCREEN | [...] | | | | SCREEN | | [place] | | | | | METHOD | | | | | | + + + + + + + | TRICYCLIC | 2022-08-15 | [facility] | Negative | (missing) | (missing) | | ANTIDEPRESSA | 12:47 | Health | | | | | NTS | | System - | | | | | (PRESENCE) | | [place] | | | | | IN URINE | | | | | | + + + + + + + | AMPHETAMINE | 2022-08-15 | [facility] | Negative | (missing) | (missing) | | (PRESENCE) | 12:47 | Health | | | | | IN URINE BY | | System - | | | | | SCREEN | | [place] | | | | | METHOD | | | | | | + + + + + + + | OXYCODONE | 2022-08-15 | [facility] | Negative | (missing) | (missing) | | (PRESENCE) | 12:47 | Health | | | | | IN URINE BY | | System - | | | | | SCREEN | | [place] | | | | | METHOD | | | | | | + + + + + + + | BHCG QUAL | 2022-08-15 | [facility] | Negative | (missing) | (missing) | | (CHORIOGONAD | 12:47 | Health | | | | | OTROPIN) IN | | System - | | | | | SER/PLAS | | [place] | | | | + + + + + + + | COCAINE | 2022-08-15 | [facility] | Negative | (missing) | (missing) | | (PRESENCE) | 12:47 | Health | | | | | IN URINE BY | | System - | | | | | SCREEN | | [place] | | | | | METHOD | | | | | | + + + + + + + | | 2022-08-15 | [facility] | Negative | (missing) | (missing) | | BARBITURATES | 12:47 | Health | | | | | PRESENCE IN | | System - | | | | | URINE BY | | [place] | | | | | SCREEN | [...] | | | | (PRESENCE) | | [place] | | | | | IN URINE [...] | | | | SCREEN | | [place] | | | | | METHOD | | | | | | + + + + + + + | [facility] QUAL | 2022-08-15 | [facility] | Negative | (missing) | (missing) | | (CHORIOGONAD | 12:47 | Health | | | | | OTROPIN) IN | | System - | | | | | SER/PLAS | | [place] | | | | + + + + + + + | AMPHETAMINE | 2022-08-15 | [facility] | Negative | (missing) | (missing) | | (PRESENCE) | 12:47 | Health | | | | | IN URINE BY | | System - | | | | | SCREEN | | [place] | | | | | METHOD | | | | | | + + + + + + + | | 2022-08-15 | [facility] | Presumptive | (missing) | (missing) | | METHAMPHETAM | 12:47 | Health | Positive | | | | INE | | System - | | | | | (PRESENCE) | | [place] | | | | | IN URINE [...] | | | BY SCREEN | | [place] | | | | | METHOD | | | | | | + + + + + + + | THC | 2022-08-15 | [facility] | Presumptive | (missing) | (missing) | | (CANNABINOID | 12:47 | Health | Positive | | | | ) IN URINE | | System - | | | | | BY SCREEN | | [place] | | | | | METHOD | | | | | | + + + + + + + | | 2022-08-15 | [facility] | Presumptive | (missing) | (missing) | | METHAMPHETAM | 12:47 | Health | Positive | | | | INE | | System - | | | | | ([facility]) | | [place] | | | | | IN URINE [...] | | | | | | | [place] | | | | + + + + + + + | BORDETELLA | 2022-08-15 | [facility] | Not | (missing) | (missing) | | PARAPERTUSSI | 12:50 | Health | Detected | | | | S | | System - | | | | | | | [place] | | | | + + + + + + + | BORDETELLA | 2022-08-15 | [facility] | Not | (missing) | (missing) | | PERTUSSIS | 12:50 | Health | Detected | | | | | | System - | | | | | | | [place] | | | | + + + + + + + | | 2022-08-15 | [facility] | Not | (missing) | (missing) | | CHLAMYDOPHIL | 12:50 | Health | Detected | | | | A PNEUMONIAE | | System - | | | | | | | [place] | | | | + + + + + + + | CORONAVIRUS | 2022-08-15 | [facility] | Not | (missing) | (missing) | | 229E | 12:50 | Health | Detected | | | | | | System - | | | | | | | [place] | | | | + + + + + + + | CORONAVIRUS | 2022-08-15 | [facility] | Not | (missing) | (missing) | | HKU1 | 12:50 | Health | Detected | | | | | | System - | | | | | | | [place] | | | | + + + + + + + | CORONAVIRUS | 2022-08-15 | [facility] | Not | (missing) | (missing) | | NL63 | 12:50 | Health | Detected | | | | | | System - | | | | | | | [place] | | | | + + + + + + + | CORONAVIRUS | 2022-08-15 | [facility] | Not | (missing) | (missing) | | OC43 | 12:50 | Health | Detected | | | | | | System - | | | | | | | [place] | | | | + + + + + + + | INFLUENZA A | 2022-08-15 | [facility] | Not | (missing) | (missing) | | | 12:50 | Health | Detected | | | | | | System - | | | | | | | [place] | | | | + + + + + + + | INFLUENZA B | 2022-08-15 | [facility] | Not | (missing) | (missing) | | | 12:50 | Health | Detected | | | | | | System - | | | | | | | [place] | | | | + + + + + + + | | 2022-08-15 | [facility] | Not | (missing) | (missing) | | METAPNEUMOVI | 12:50 | Health | Detected | | | | KELVIN | | System - | | | | | | | [place] | | | | + + + + + + + | MYCOPLASMA | 2022-08-15 | [facility] | Not | (missing) | (missing) | | PNEUMONIAE | 12:50 | Health | Detected | | | | PCR | | System - | | | | | | | [place] | | | | + + + + + + + | | 2022-08-15 | [facility] | Not | (missing) | (missing) | | PARAINFLUENZ | 12:50 | Health | Detected | | | | A 1 | | System - | | | | | | | [place] | | | | + + + + + + + | | 2022-08-15 | [facility] | Not | (missing) | (missing) | | PARAINFLUENZ | 12:50 | Health | Detected | | | | A 2 | | System - | | | | | | | [place] | | | | + + + + + + + | | 2022-08-15 | [facility] | Not | (missing) | (missing) | | PARAINFLUENZ | 12:50 | Health | Detected | | | | A 3 | | System - | | | | | | | [place] | | | | + + + + + + + | | 2022-08-15 | [facility] | Not | (missing) | (missing) | | PARAINFLUENZ | 12:50 | Health | Detected | | | | A 4 | | System - | | | | | | | [place] | | | | + + + + + + + | | 2022-08-15 | [facility] | Not | (missing) | (missing) | | RHINOVIRUS/E | 12:50 | Health | Detected | | | | NTEROVIRUS | | System - | | | | | | | [place] | | | | + + + + + + + | RSV | 2022-08-15 | [facility] | Not | (missing) | (missing) | | | 12:50 | Health | Detected | | | | | | System - | | | | | | | [place] | | | | + + + + + + + | SARS-COV-2 | 2022-08-15 | [facility] | Not | (missing) | (missing) | | (COVID19) | 12:50 | Health | Detected | | | | BIOFIRE PCR | | System - | | | | | | | [place] | | | | + + + + + + + | BORDETELLA | 2022-08-15 | [facility] | Not | (missing) | (missing) | | PERTUSSIS | 12:50 | Health | Detected | | | | | | System - | | | | | | | [place] | | | | + + + + + + + | MYCOPLASMA | 2022-08-15 | [facility] | Not | (missing) | (missing) | | PNEUMONIAE | 12:50 | Health | Detected | | | | PCR | | System - | | | | | | | [place] | | | | + + + + + + + | | 2022-08-15 | [facility] | Not | (missing) | (missing) | | PARAINFLUENZ | 12:50 | Health | Detected | | | | A 1 | | System - | | | | | | | [place] | | | | + + + + + + + | | 2022-08-15 | [facility] | Not | (missing) | (missing) | | PARAINFLUENZ | 12:50 | Health | Detected | | | | A 2 | | System - | | | | | | | [place] | | | | + + + + + + + | | 2022-08-15 | [facility] | Not | (missing) | (missing) | | CHLAMYDOPHIL | 12:50 | Health | Detected | | | | A PNEUMONIAE | | System - | | | | | | | [place] | | | | + + + + + + + | | 2022-08-15 | [facility] | Not | (missing) | (missing) | | METAPNEUMOVI | 12:50 | Health | Detected | | | | KELVIN | | System - | | | | | | | [place] | | | | + + + + + + + | ADENOVIRUS | 2022-08-15 | [facility] | Not | (missing) | (missing) | | DETECTION BY | 12:50 | Health | Detected | | | | PCR | | System - | | | | | | | [place] | | | | + + + + + + + | INFLUENZA B | 2022-08-15 | [facility] | Not | (missing) | (missing) | | | 12:50 | Health | Detected | | | | | | System - | | | | | | | [place] | | | | + + + + + + + | RSV | 2022-08-15 | [facility] | Not | (missing) | (missing) | | | 12:50 | Health | Detected | | | | | | System - | | | | | | | [place] | | | | + + + + + + + | | 2022-08-15 | [facility] | Not | (missing) | (missing) | | RHINOVIRUS/E | 12:50 | Health | Detected | | | | NTEROVIRUS | | System - | | | | | | | [place] | | | | + + + + + + + | CORONAVIRUS | 2022-08-15 | [facility] | Not | (missing) | (missing) | | 229E | 12:50 | Health | Detected | | | | | | System - | | | | | | | [place] | | | | + + + + + + + | CORONAVIRUS | 2022-08-15 | [facility] | Not | (missing) | (missing) | | NL63 | 12:50 | Health | Detected | | | | | | System - | | | | | | | [place] | | | | + + + + + + + | CORONAVIRUS | 2022-08-15 | [facility] | Not | (missing) | (missing) | | OC43 | 12:50 | Health | Detected | | | | | | System - | | | | | | | [place] | | | | + + + + + + + | | 2022-08-15 | [facility] | Not | (missing) | (missing) | | PARAINFLUENZ | 12:50 | Health | Detected | | | | A 4 | | System - | | | | | | | [place] | | | | + + + + + + + | | 2022-08-15 | [facility] | Not | (missing) | (missing) | | PARAINFLUENZ | 12:50 | Health | Detected | | | | A 3 | | System - | | | | | | | [place] | | | | + + + + + + + | CORONAVIRUS | 2022-08-15 | [facility] | Not | (missing) | (missing) | | HKU1 | 12:50 | Health | Detected | | | | | | System - | | | | | | | [place] | | | | + + + + + + + | BORDETELLA | 2022-08-15 | [facility] | Not | (missing) | (missing) | | PARAPERTUSSI | 12:50 | Health | Detected | | | | S | | System - | | | | | | | [place] | | | | + + + + + + + | SARS-COV-2 | 2022-08-15 | [facility] | Not | (missing) | (missing) | | (COVID19) | 12:50 | Health | Detected | | | | BIOFIRE PCR | | System - | | | | | | | [place] | | | | + + + [...] ? | | | RATE) | | [place] | | | | | ML/MIN/1.73 | [...] ? | | | RATE) | | [place] | | | | | ML/MIN/1.73 | [...] | | | | | | | [place] | | | | + + + + + + + | ALCOHOL | 2022-08-23 | [facility] | < | g/dl | (missing) | | (G/DL) IN | 16:29 | Health | | | | | SER/PLAS | | System - | | | | | | | [place] | | | | + + + + + + + | | 2022-08-23 | [facility] | < | mcg/ml | (missing) | | ACETAMINOPHE | 16:29 | Health | | | | | N (UG/ML) IN | | System - | | | | | SER/PLAS | | [place] | | | | + + + + + + + | | 2022-08-23 | [facility] | < | mcg/ml | (missing) | | ACETAMINOPHE | 16:29 | Health | | | | | N (UG/ML) IN | | System - | | | | | SER/PLAS | | [place] | | | | + + + + + + + | SALICYLATE | 2022-08-23 | [facility] | < | mg/dl | (missing) | | (MG/DL) IN | 1629 | Health | | | | | SER/PLAS | | System - | | | | | | | [place] | | | | + + + + + + + | SALICYLATE | 2022-08-23 | [facility] | < | mg/dl | (missing) | | (MG/DL) IN | 16:29 | Health | | | | | SER/PLAS | | System - | | | | | | | [place] | | | | + + + + + + + | NRBC/100 | 2022-08-23 | [facility] | 0.0 | % | (missing) | | WBCS BY | 16:29 | Health | | | | | AUTOMATED | | System - | | | | | COUNT | | [place] | | | | + + + + + + + | | 2022-08-23 | [facility] | 0.0 | % | (missing) | | EOSINOPHILS/ | 16:29 | Health | | | | | 100 | | System - | | | | | LEUKOCYTES | | [place] | | | | | IN BLOOD [...] | | | | COUNT | | [place] | | | | + + + + + + + | | 2022-08-23 | [facility] | 0.0 | % | (missing) | | EOSINOPHILS/ | 16:29 | Health | | | | | 100 | | System - | | | | | LEUKOCYTES | | [place] | | | | | IN BLOOD [...] | | | BY AUTOMATED | | [place] | | | | | COUNT | | | | | | + + + + + + + | EOSINOPHILS | 2022-08-23 | [facility] | 0.0 | k/mcl | (missing) | | (10*3/UL) | 16:29 | Health | | | | | IN BLOOD BY | | System - | | | | | AUTOMATED | | [place] | | | | | COUNT | | | | | | + + + + + + + | EOSINOPHILS | 2022-08-23 | [facility] | 0.0 | k/mcl | (missing) | | (10*3/UL) | 16:29 | Health | | | | | IN BLOOD BY | | System - | | | | | AUTOMATED | | [place] | | | | | COUNT | | | | | | + + + + + + + | | 2022-08-23 | [facility] | 0.0 | k/mcl | (missing) | | NRBC(10*3/UL | 16:29 | Health | | | | | ) IN BLOOD | | System - | | | | | BY AUTOMATED | | [place] | | | | | COUNT | | | | | | + + + + + + + | IMMATURE | 2022-08-23 | [facility] | 0.08 | k/mcl | (missing) | | GRANULOCYTE | 16:29 | Health | | | | | (ABS) | | System - | | | | | | | [place] | | | | + + + + + + + | IMMATURE | 2022-08-23 | [facility] | 0.08 | k/mcl | (missing) | | GRANULOCYTE | 16:29 | Health | | | | | (ABS) | | System - | | | | | | | [place] | | | | + + + + + + + | BASOPHILS | 2022-08-23 | [facility] | 0.1 | k/mcl | (missing) | | (10*3/UL) IN | 16:29 | Health | | | | | BLOOD BY | | System - | | | | | AUTOMATED | | [place] | | | | | COUNT | | | | | | + + + + + + + | BASOPHILS | 2022-08-23 | [facility] | 0.1 | k/mcl | (missing) | | (10*3/UL) IN | 16:29 | Health | | | | | BLOOD BY | | System - | | | | | AUTOMATED | | [place] | | | | | COUNT | | | | | | + + + + + + + | IMMATURE | 2022-08-23 | [facility] | 0.5 | % | (missing) | | GRANULOCYTE | 16:29 | Health | | | | | % (AUTO) | | System - | | | | | | | [place] | | | | + + + + + + + | IMMATURE | 2022-08-23 | [facility] | 0.5 | % | (missing) | | GRANULOCYTE | 16:29 | Health | | | | | % (AUTO) | | System - | | | | | | | [place] | | | | + + + + + + + | BILIRUBIN | 2022-08-23 | [facility] | 0.5 | mg/dl | (missing) | | TOTAL | 16:29 | Health | | | | | (MG/DL) IN | | System - | | | | | SER/PLAS | | [place] | | | | + + + + + + + | BILIRUBIN | 2022-08-23 | [facility] | 0.5 | mg/dl | (missing) | | TOTAL | 16:29 | Health | | | | | (MG/DL) IN | | System - | | | | | SER/PLAS | | [place] | | | | + + + + + + + | | 2022-08-23 | [facility] | 0.6 | % | (missing) | | BASOPHILS/10 | 16:29 | Health | | | | | 0 LEUKOCYTES | | System - | | | | | IN BLOOD BY | | [place] | | | | | AUTOMATED | [...] | | IN BLOOD BY | | [place] | | | | | AUTOMATED | [...] | | | | AUTOMATED | | [place] | | | | | COUNT | | | | | | + + + + + + + | MONOCYTES | 2022-08-23 | [facility] | 0.8 | k/mcl | (missing) | | (10*3/UL) IN | 16:29 | Health | | | | | BLOOD BY | | System - | | | | | AUTOMATED | | [place] | | | | | COUNT | | | | | | + + + + + + + | CREATININE | 2022-08-23 | [facility] | 0.9 | mg/dl | (missing) | | (MG/DL) IN | 16:29 | Health | | | | | SER/PLAS | | System - | | | | | | | [place] | | | | + + + + + + + | CREATININE | 2022-08-23 | [facility] | 0.9 | mg/dl | (missing) | | (MG/DL) IN | 16:29 | Health | | | | | SER/PLAS | | System - | | | | | | | [place] | | | | + + + + + + + | PROTEIN IN | 2022-08-23 | [facility] | 1 | (missing) | (missing) | | URINE BY | 16:29 | Health | | | | | TEST STRIP | | System - | | | | | | | [place] | | | | + + + + + + + | PROTEIN IN | 2022-08-23 | [facility] | 1 | (missing) | (missing) | | URINE BY | 16:29 | Health | | | | | TEST STRIP | | System - | | | | | | | [place] | | | | + + + + + + + | SPECIFIC | 2022-08-23 | [facility] | 1.022 | (missing) | (missing) | | GRAVITY OF | 16:29 | Health | | | | | URINE BY | | System - | | | | | AUTOMATED | | [place] | | | | | TEST STRIP | | | | | | + + + + + + + | SPECIFIC | 2022-08-23 | [facility] | 1.022 | (missing) | (missing) | | GRAVITY OF | 16:29 | Health | | | | | URINE BY | | System - | | | | | AUTOMATED | | [place] | | | | | TEST STRIP | | | | | | + + + + + + + | NEUTROPHILS | 2022-08-23 | [facility] | 10.3 | k/mcl | (missing) | | (10*3/UL) | 16:29 | Health | | | | | IN BLOOD BY | | System - | | | | | AUTOMATED | | [place] | | | | | COUNT | | | | | | + + + + + + + | NEUTROPHILS | 2022-08-23 | [facility] | 10.3 | k/mcl | (missing) | | (10*3/UL) | 16:29 | Health | | | | | IN BLOOD BY | | System - | | | | | AUTOMATED | | [place] | | | | | COUNT | | | | | | + + + + + + + | CHLORIDE | 2022-08-23 | [facility] | 104 | mmol/l | (missing) | | (MMOL/L) IN | 16:29 | Health | | | | | SER/PLAS | | System - | | | | | | | [place] | | | | + + + + + + + | CHLORIDE | 2022-08-23 | [facility] | 104 | mmol/l | (missing) | | (MMOL/L) IN | 16:29 | Health | | | | | SER/PLAS | | System - | | | | | | | [place] | | | | + + + + + + + | ERYTHROCYTE | 2022-08-23 | [facility] | 12.7 | % | (missing) | | | 16:29 | Health | | | | | DISTRIBUTION | | System - | | | | | WIDTH | | [place] | | | | | (RATIO) BY [...] | | | | WIDTH | | [place] | | | | | (RATIO) BY [...] | | | | | | | [place] | | | | + + + + + + + | SODIUM | 2022-08-23 | [facility] | 138 | mmol/l | (missing) | | (MMOL/L) IN | 16:29 | Health | | | | | SER/PLAS | | System - | | | | | | | [place] | | | | + + + + + + + | | 2022-08-23 | [facility] | 15.3 | k/mcl | (missing) | | LEUKOCYTES(1 | :29 | Health | | | | | 0*3/UL) IN | | System - | | | | | BLOOD BY | | [place] | | | | | AUTOMATED | [...] | | | BLOOD BY | | [place] | | | | | AUTOMATED | [...] | | | | | | | [place] | | | | + + + + + + + | HEMOGLOBIN | 2022-08-23 | [facility] | 15.4 | g/dl | (missing) | | (G/DL) IN | 16:29 | Health | | | | | BLOOD | | System - | | | | | | | [place] | | | | + + + + + + + | CARBON | 2022-08-23 | [facility] | 17 | mmol/l | (missing) | | DIOXIDE | 16:29 | Health | | | | | (CO2), TOTAL | | System - | | | | | (MMOL/L) IN | | [place] | | | | | SER/PLAS | | | | | | + + + + + + + | CARBON | 2022-08-23 | [facility] | 17 | mmol/l | (missing) | | DIOXIDE | 16:29 | Health | | | | | (CO2), TOTAL | | System - | | | | | (MMOL/L) IN | | [place] | | | | | SER/PLAS | | | | | | + + + + + + + | ANION GAP | 2022-08-23 | [facility] | 17.0 | mmol/l | (missing) | | IN SER/PLAS | 16:29 | Health | | | | | | | System - | | | | | | | [place] | | | | + + + + + + + | ANION GAP | 2022-08-23 | [facility] | 17.0 | mmol/l | (missing) | | IN SER/PLAS | 16:29 | Health | | | | | | | System - | | | | | | | [place] | | | | + + + + + + + | KETONES IN | 2022-08-23 | [facility] | 2 | (missing) | (missing) | | URINE | 16:29 | Health | | | | | | | System - | | | | | | | [place] | | | | + + + + + + + | LEUKOCYTE | 2022-08-23 | [facility] | 2 | (missing) | (missing) | | ESTERASE | 16:29 | Health | | | | | PRESENCE IN | | System - | | | | | URINE BY | | [place] | | | | | TEST STRIP | | | | | | + + + + + + + | KETONES IN | 2022-08-23 | [facility] | 2 | (missing) | (missing) | | URINE | 16:29 | Health | | | | | | | System - | | | | | | | [place] | | | | + + + + + + + | LEUKOCYTE | 2022-08-23 | [facility] | 2 | (missing) | (missing) | | ESTERASE | 16:29 | Health | | | | | PRESENCE IN | | System - | | | | | URINE BY | | [place] | | | | | TEST STRIP | | | | | | + + + + + + + | WBC | 2022-08-23 | [facility] | 25 | /hpf | (missing) | | (LEUKOCYTE) | 16:29 | Health | | | | | (#/HPF) IN | | System - | | | | | URINE | | [place] | | | | | SEDIMENT | | | | | | + + + + + + + | WBC | 2022-08-23 | [facility] | 25 | /hpf | (missing) | | (LEUKOCYTE) | 16:29 | Health | | | | | (#/HPF) IN | | System - | | | | | URINE | | [place] | | | | | SEDIMENT | | | | | | + + + + + + + | ASPARTATE | 2022-08-23 | [facility] | 26 | u/l | (missing) | | AMINOTRANSFE | 16:29 | Health | | | | | RASE (SGOT) | | System - | | | | | (U/L) IN | | [place] | | | | | SER/PLAS | | | | | | + + + + + + + | ASPARTATE | 2022-08-23 | [facility] | 26 | u/l | (missing) | | AMINOTRANSFE | 16:29 | Health | | | | | RASE (SGOT) | | System - | | | | | (U/L) IN | | [place] | | | | | SER/PLAS | | | | | | + + + + + + + | | 2022-08-23 | [facility] | 26.5 | % | (missing) | | LYMPHOCYTES/ | 16:29 | Health | | | | | 100 | | System - | | | | | LEUKOCYTES | | [place] | | | | | IN BLOOD [...] | | | | LEUKOCYTES | | [place] | | | | | IN BLOOD [...] | | | | | | | [place] | | | | + + + + + + + | RBC (#/HPF) | 2022-08-23 | [facility] | 3 | /hpf | (missing) | | IN URINE | 16:29 | Health | | | | | SEDIMENT | | System - | | | | | | | [place] | | | | + + + + + + + | POTASSIUM | 2022-08-23 | [facility] | 3.5 | mmol/l | (missing) | | (MMOL/L) IN | 16:29 | Health | | | | | SER/PLAS | | System - | | | | | | | [place] | | | | + + + + + + + | POTASSIUM | 2022-08-23 | [facility] | 3.5 | mmol/l | (missing) | | (MMOL/L) IN | 16:29 | Health | | | | | SER/PLAS | | System - | | | | | | | [place] | | | | + + + + + + + | ERYTHROCYTE | 2022-08-23 | [facility] | 30.2 | pg | (missing) | | MEAN | 16:29 | Health | | | | | CORPUSCULAR | | System - | | | | | HEMOGLOBIN | | [place] | | | | | (PG) BY [...] | | | | HEMOGLOBIN | | [place] | | | | | (PG) BY [...] | | | (U/L) IN | | [place] | | | | | SER/PLAS | | | | | | + + + + + + + | ALANINE | 2022-08-23 | [facility] | 34 | u/l | (missing) | | AMINOTRANSFE | 16:29 | Health | | | | | RASE (SGPT) | | System - | | | | | (U/L) IN | | [place] | | | | | SER/PLAS | | | | | | + + + + + + + | ERYTHROCYTE | 2022-08-23 | [facility] | 34.5 | g/dl | (missing) | | MEAN | 16:29 | Health | | | | | CORPUSCULAR | | System - | | | | | HEMOGLOBIN | | [place] | | | | | CONCENTRATIO | [...] | | | | HEMOGLOBIN | | [place] | | | | | CONCENTRATIO | [...] | | | | | | | [place] | | | | + + + + + + + | BACTERIA | 2022-08-23 | [facility] | 4 | /hpf | (missing) | | (#/HPF) IN | 16:29 | Health | | | | | URINE | | System - | | | | | | | [place] | | | | + + + + + + + | LYMPHOCYTES | 2022-08-23 | [facility] | 4.0 | k/mcl | (missing) | | (10*3/UL) | 16:29 | Health | | | | | IN BLOOD BY | | System - | | | | | AUTOMATED | | [place] | | | | | COUNT | | | | | | + + + + + + + | LYMPHOCYTES | 2022-08-23 | [facility] | 4.0 | k/mcl | (missing) | | (10*3/UL) | 16:29 | Health | | | | | IN BLOOD BY | | System - | | | | | AUTOMATED | | [place] | | | | | COUNT | | | | | | + + + + + + + | ALBUMIN | 2022-08-23 | [facility] | 4.2 | g/dl | (missing) | | (G/DL) IN | 16:29 | Health | | | | | SER/PLAS | | System - | | | | | | | [place] | | | | + + + + + + + | ALBUMIN | 2022-08-23 | [facility] | 4.2 | g/dl | (missing) | | (G/DL) IN | 16:29 | Health | | | | | SER/PLAS | | System - | | | | | | | [place] | | | | + + + + + + + | PLATELETS | 2022-08-23 | [facility] | 418 | k/mcl | (missing) | | (10*3/UL) IN | 16:29 | Health | | | | | BLOOD | | System - | | | | | AUTOMATED | | [place] | | | | | COUNT | | | | | | + + + + + + + | PLATELETS | 2022-08-23 | [facility] | 418 | k/mcl | (missing) | | (10*3/UL) IN | 16:29 | Health | | | | | BLOOD | | System - | | | | | AUTOMATED | | [place] | | | | | COUNT | | | | | | + + + + + + + | HEMATOCRIT | 2022-08-23 | [facility] | 44.6 | % | (missing) | | (%) IN BLOOD | 16:29 | Health | | | | | BY | | System - | | | | | AUTOMATED | | [place] | | | | | COUNT | | | | | | + + + + + + + | HEMATOCRIT | 2022-08-23 | [facility] | 44.6 | % | (missing) | | (%) IN BLOOD | 16:29 | Health | | | | | BY | | System - | | | | | AUTOMATED | | [place] | | | | | COUNT | | | | | | + + + + + + + | | 2022-08-23 | [facility] | 5.0 | % | (missing) | | MONOCYTES/10 | 16:29 | Health | | | | | 0 LEUKOCYTES | | System - | | | | | IN BLOOD BY | | [place] | | | | | AUTOMATED | [...] | | IN BLOOD BY | | [place] | | | | | AUTOMATED | [...] | | IN BLOOD BY | | [place] | | | | | AUTOMATED | [...] | | IN BLOOD BY | | [place] | | | | | AUTOMATED | [...] | | | | | | | [place] | | | | + + + + + + + | PROTEIN | 2022-08-23 | [facility] | 6.8 | g/dl | (missing) | | (G/DL) IN | 16:29 | Health | | | | | SER/PLAS | | System - | | | | | | | [place] | | | | + + + + + + + | | 2022-08-23 | [facility] | 67.4 | % | (missing) | | NEUTROPHILS/ | 16:29 | Health | | | | | 100 | | System - | | | | | LEUKOCYTES | | [place] | | | | | IN BLOOD [...] | | | | LEUKOCYTES | | [place] | | | | | IN BLOOD [...] | | | | | | | [place] | | | | + + + + + + + | PH OF URINE | 2022-08-23 | [facility] | 7.5 | (missing) | (missing) | | | 16:29 | Health | | | | | | | System - | | | | | | | [place] | | | | + + + + + + + | SQUAMOUS | 2022-08-23 | [facility] | 74 | /hpf | (missing) | | EPITHELIAL | 16:29 | Health | | | | | CELLS | | System - | | | | | (#/HPF) IN | | [place] | | | | | URINE | [...] | | | (#/HPF) IN | | [facility] | | | | | URINE | [...] | | | (MG/DL) IN | | [place] | | | | | SER/PLAS | | | | | | + + + + + + + | BLOOD UREA | 2022-08-23 | [facility] | 8 | mg/dl | (missing) | | NITROGEN | 16:29 | Health | | | | | (BUN) | | System - | | | | | (MG/DL) IN | | [place] | | | | | SER/PLAS | | | | | | + + + + + + + | ALKALINE | 2022-08-23 | [facility] | 86 | u/l | (missing) | | PHOSPHATASE | 16:29 | Health | | | | | (U/L) IN | | System - | | | | | SER/PLAS | | [place] | | | | + + + + + + + | ALKALINE | 2022-08-23 | [facility] | 86 | u/l | (missing) | | PHOSPHATASE | 16:29 | Health | | | | | (U/L) IN | | System - | | | | | SER/PLAS | | [place] | | | | + + + + + + + | ERYTHROCYTE | 2022-08-23 | [facility] | 87.5 | fl | (missing) | | MEAN | 16:29 | Health | | | | | CORPUSCULAR | | System - | | | | | VOLUME (FL) | | [place] | | | | | BY AUTOMATED [...] | | | VOLUME (FL) | | [place] | | | | | BY AUTOMATED [...] | | | | | | | [place] | | | | + + + + + + + | CALCIUM | 2022-08-23 | [facility] | 9.2 | mg/dl | (missing) | | (MG/DL) IN | 16:29 | Health | | | | | SER/PLAS | | System - | | | | | | | [place] | | | | + + + + + + + | PLATELET | 2022-08-23 | [facility] | 9.7 | fl | (missing) | | MEAN VOLUME | 16:29 | Health | | | | | (FL) IN | | System - | | | | | BLOOD BY | | [place] | | | | | AUTOMATED | [...] | | | BLOOD BY | | [place] | | | | | AUTOMATED | [...] | | | | SER/PLAS | | [place] | | | | + + + + + + + | GLUCOSE, | 2022-08-23 | [facility] | 96 | mg/dl | (missing) | | RANDOM | 16:29 | Health | | | | | (MG/DL) IN | | System - | | | | | SER/PLAS | | [place] | | | | + + + + + + + | CLARITY OF | 2022-08-23 | [facility] | Hazy | (missing) | (missing) | | URINE | 16:29 | Health | | | | | | | System - | | | | | | | [place] | | | | + + + + + + + | CLARITY OF | 2022-08-23 | [facility] | Hazy | (missing) | (missing) | | URINE | 16:29 | Health | | | | | | | System - | | | | | | | [place] | | | | + + + + + + + | | 2022-08-23 | [facility] | Negative | (missing) | (missing) | | BARBITURATES | 16:29 | Health | | | | | PRESENCE IN | | System - | | | | | URINE BY | | [place] | | | | | SCREEN | [...] | | | | URINE | | [place] | | | | + + + + + + + | COCAINE | 2022-08-23 | [facility] | Negative | (missing) | (missing) | | (PRESENCE) | 16:29 | Health | | | | | IN URINE BY | | System - | | | | | SCREEN | | [place] | | | | | METHOD | | | | | | + + + + + + + | GLUCOSE IN | 2022-08-23 | [facility] | Negative | (missing) | (missing) | | URINE | 16:29 | Health | | | | | | | System - | | | | | | | [place] | | | | + + + + + + + | METHADONE | 2022-08-23 | [facility] | Negative | (missing) | (missing) | | (PRESENCE) | 16:29 | Health | | | | | IN URINE BY | | System - | | | | | SCREEN | | [place] | | | | | METHOD | | | | | | + + + + + + + | | 2022-08-23 | [facility] | Negative | (missing) | (missing) | | METHAMPHETAM | 16:29 | Health | | | | | INE | | System - | | | | | (PRESENCE) | | [place] | | | | | IN URINE [...] | | | | | | | [place] | | | | + + + + + + + | OPIATES | 2022-08-23 | [facility] | Negative | (missing) | (missing) | | (PRESENCE) | 16:29 | Health | | | | | IN URINE BY | | System - | | | | | SCREEN | | [place] | | | | | METHOD | | | | | | + + + + + + + | OXYCODONE | 2022-08-23 | [facility] | Negative | (missing) | (missing) | | (PRESENCE) | 16:29 | Health | | | | | IN URINE BY | | System - | | | | | SCREEN | | [place] | | | | | METHOD | | | | | | + + + + + + + | | 2022-08-23 | [facility] | Negative | (missing) | (missing) | | PHENCYCLIDIN | 16:29 | Health | | | | | E (PRESENCE) | | System - | | | | | IN URINE BY | | [place] | | | | | SCREEN | [...] | | | BY SCREEN | | [place] | | | | | METHOD | | | | | | + + + + + + + | TRICYCLIC | 2022-08-23 | [facility] | Negative | (missing) | (missing) | | ANTIDEPRESSA | 16:29 | Health | | | | | NTS | | System - | | | | | (PRESENCE) | | [place] | | | | | IN URINE | | | | | | + + + + + + + | | 2022-08-23 | [facility] | Negative | (missing) | (missing) | | PHENCYCLIDIN | 16:29 | Health | | | | | E (PRESENCE) | | System - | | | | | IN URINE BY | | [place] | | | | | SCREEN | [...] | | | BY SCREEN | | [place] | | | | | METHOD | | | | | | + + + + + + + | OPIATES | 2022-08-23 | [facility] | Negative | (missing) | (missing) | | (PRESENCE) | 16:29 | Health | | | | | IN URINE BY | | System - | | | | | SCREEN | | [place] | | | | | METHOD | | | | | | + + + + + + + | TRICYCLIC | 2022-08-23 | [facility] | Negative | (missing) | (missing) | | ANTIDEPRESSA | 16:29 | Health | | | | | NTS | | System - | | | | | (PRESENCE) | | [place] | | | | | IN URINE | | | | | | + + + + + + + | AMPHETAMINE | 2022-08-23 | [facility] | Negative | (missing) | (missing) | | ([facility]) | 16:29 | Health | | | | | IN URINE BY | | System - | | | | | SCREEN | | [place] | | | | | METHOD | | | | | | + + + + + + + | | 2022-08-23 | [facility] | Negative | (missing) | (missing) | | METHAMPHETAM | 16:29 | Health | | | | | INE | | System - | | | | | ([facility]) | | [place] | | | | | IN URINE [...] | | | | SCREEN | | [place] | | | | | METHOD | | | | | | + + + + + + + | BILIRUBIN, | 2022-08-23 | [facility] | Negative | (missing) | (missing) | | TOTAL | 16:29 | Health | | | | | PRESENCE IN | | System - | | | | | URINE | | [place] | | | | + + + + + + + | BHCG QUAL | 2022-08-23 | [facility] | Negative | (missing) | (missing) | | (CHORIOGONAD | 16:29 | Health | | | | | OTROPIN) IN | | System - | | | | | SER/PLAS | | [place] | | | | + + + + + + + | GLUCOSE IN | 2022-08-23 | [facility] | Negative | (missing) | (missing) | | URINE | 16:29 | Health | | | | | | | System - | | | | | | | [place] | | | | + + + + + + + | COCAINE | 2022-08-23 | [facility] | Negative | (missing) | (missing) | | ([facility]) | 16:29 | Health | | | | | IN URINE BY | | System - | | | | | SCREEN | | [place] | | | | | METHOD | | | | | | + + + + + + + | NITRITE | 2022-08-23 | [facility] | Negative | (missing) | (missing) | | PRESENCE IN | 16:29 | Health | | | | | URINE | | System - | | | | | | | [place] | | | | + + + + + + + | | 2022-08-23 | [facility] | Negative | (missing) | (missing) | | BARBITURATES | 16:29 | Health | | | | | PRESENCE IN | | System - | | | | | URINE BY | | [place] | | | | | SCREEN | [...] | | | | SCREEN | | [place] | | | | | METHOD | | | | | | + + + + + + + | BHCG QUAL | 2022-08-23 | [facility] | Negative | (missing) | (missing) | | (CHORIOGONAD | 16:29 | Health | | | | | OTROPIN) IN | | System - | | | | | SER/PLAS | | [place] | | | | + + + + + + + | AMPHETAMINE | 2022-08-23 | [facility] | Negative | (missing) | (missing) | | ([facility]) | 16:29 | Health | | | | | IN URINE BY | | System - | | | | | SCREEN | | [place] | | | | | METHOD | | | | | | + + + + + + + | | 2022-08-23 | [facility] | Normal | mg/dl | (missing) | | UROBILINOGEN | 16:29 | Health | | | | | (MG/DL) IN | | System - | | | | | URINE BY | | [place] | | | | | TEST STRIP | | | | | | + + + + + + + | | 2022-08-23 | [facility] | Normal | mg/dl | (missing) | | UROBILINOGEN | 16:29 | Health | | | | | (MG/DL) IN | | System - | | | | | URINE BY | | [place] | | | | | TEST STRIP | | | | | | + + + + + + + | | 2022-08-23 | [facility] | Presumptive | (missing) | (missing) | | BENZODIAZEPI | 16:29 | Health | Positive | | | | SURYA | | System - | | | | | ([facility]) | | [place] | | | | | IN URINE [...] | | | | (PRESENCE) | | [place] | | | | | IN URINE [...] | | | | | | | [place] | | | | + + + + + + + | MUCUS | 2022-08-23 | [facility] | Trace | (missing) | (missing) | | (#/HPF) IN | 16:29 | Health | | | | | URINE | | System - | | | | | SEDIMENT | | [place] | | | | + + + + + + + | MUCUS | 2022-08-23 | [facility] | Trace | (missing) | (missing) | | (#/HPF) IN | 16:29 | Health | | | | | URINE | | System - | | | | | SEDIMENT | | [place] | | | | + + + + + + + | HEMOGLOBIN | 2022-08-23 | [facility] | Trace | (missing) | (missing) | | PRESENCE IN | 16:29 | Health | | | | | URINE | | System - | | | | | | | [place] | | | | + + + + + + + | COLOR OF | 2022-08-23 | [facility] | Yellow | (missing) | (missing) | | URINE | 16:29 | Health | | | | | | | System - | | | | | | | [place] | | | | + + + + + + + | COLOR OF | 2022-08-23 | [facility] | Yellow | (missing) | (missing) | | URINE | 16:29 | Health | | | | | | | System - | | | | | | | [place] | | | | + + + + + + + + + | Result panel 76 | + + + + + + + + + | | 2022-08-23 | [facility] | (missing) | (missing) | (missing) | | (unavailable | 17:54 | Health | | | | | ) | | System - | | | | | | | [place] | | | | + + + + + + + | | 2022-08-23 | [facility] | 1. No | (missing) | (missing) | | (unavailable | 17:54 | Health | radiographic | | | | ) | | System - | evidence of | | | | | | [place] | acute | | | | | [...] osseous | | | | | | [place] | abnormality. | | | | | | | | | | + + + + + + + | | 2022-08-23 | [facility] | COMPARISON: | (missing) | (missing) | | (unavailable | 17:54 | Health | 01/15/2022 | | | | ) | | System - | | | | | | | [place] | | | | + + + + + + + | | 2022-08-23 | [facility] | Electronical | (missing) | (missing) | | (unavailable | 17:54 | Health | ly signed | | | | ) | | System - | by: Bentley | | | | | | [place] | MD Dean | | | | | | | on 08/23/2022 | | | | | | | 7:27 PM at | | | | | | | workstation | | | | | | | [phone] | | | + + + + + + + | | 2022-08-23 | [facility] | FINDINGS: | (missing) | (missing) | | (unavailable | 17:54 | Health | | | | | ) | | System - | | | | | | | [place] | | | | + + + + + + + | | 2022-08-23 | [facility] | HEART: | (missing) | (missing) | | (unavailable | 17:54 | Health | Normal in | | | | ) | | System - | size and | | | | | | [place] | appearance. | | | + + + + + + + | | 2022-08-23 | [facility] | INDICATION: | (missing) | (missing) | | (unavailable | 17:54 | Health | cough, rule | | | | ) | | System - | out | | | | | | [place] | pneumnia | | | + + + + + + + | | 2022-08-23 | [facility] | LUNGS: No | (missing) | (missing) | | (unavailable | 17:54 | Health | focal | | | | ) | | System - | consolidatio | | | | | | [place] | n. No | | | | [...] mediastinal | | | | | | [place] | contours | | | | | [...] pleural | | | | | | [place] | effusion or | | | | [...] VIEW | | | | | | [place] | | | | + + + + + + + | | 2022-08-23 | [facility] | | (missing) | (missing) | | (unavailable | 17:54 | Health | Procedure(s) | | | | ) | | System - | : * No | | | | | | [place] | procedures | | | | | | | listed * | | | + + + + + + + | | 2022-08-23 | [facility] | SUPPORT | (missing) | (missing) | | (unavailable | 17:54 | Health | DEVICES: | | | | ) | | System - | None. | | | | | | [place] | | | | + + + + + + + + + | Result panel 77 | + + + + + + + + + | INFLUENZA A | 2022-08-24 | [facility] | Negative | (missing) | (missing) | | | 10:12 | Health | | | | | | | System - | | | | | | | [place] | | | | + + + + + + + | INFLUENZA B | 2022-08-24 | [facility] | Negative | (missing) | (missing) | | | 10:12 | Health | | | | | | | System - | | | | | | | [place] | | | | + + + + + + + | RSV | 2022-08-24 | [facility] | Negative | (missing) | (missing) | | | 10:12 | Health | | | | | | | System - | | | | | | | [place] | | | | + + + + + + + | SARS-COV-2 | 2022-08-24 | [facility] | Negative | (missing) | (missing) | | (COVID19) | 10:12 | Health | | | | | CEPHEID PCR | | System - | | | | | | | [place] | | | | + + + + + + + | INFLUENZA A | 2022-08-24 | [facility] | Negative | (missing) | (missing) | | | 10:12 | Health | | | | | | | System - | | | | | | | [place] | | | | + + + + + + + | INFLUENZA B | 2022-08-24 | [facility] | Negative | (missing) | (missing) | | | 10:12 | Health | | | | | | | System - | | | | | | | [place] | | | | + + + + + + + | RSV | 2022-08-24 | [facility] | Negative | (missing) | (missing) | | | 10:12 | Health | | | | | | | System - | | | | | | | [place] | | | | + + + + + + + | SARS-COV-2 | 2022-08-24 | [facility] | Negative | (missing) | (missing) | | (COVID19) | 10:12 | Health | | | | | CEPHEID PCR | | System - | | | | | | | [place] | | | | + + + [...] | | | | | | | [place] | | | | + + + + + + + | ALCOHOL | 2022-09-15 | [facility] | < | g/dl | (missing) | | (G/DL) IN | 21:19 | Health | | | | | SER/PLAS | | System - | | | | | | | [place] | | | | + + + + + + + | | 2022-09-15 | [facility] | < | mcg/ml | (missing) | | ACETAMINOPHE | 21:19 | Health | | | | | N (UG/ML) IN | | System - | | | | | SER/PLAS | | [place] | | | | + + + + + + + | | 2022-09-15 | [facility] | < | mcg/ml | (missing) | | ACETAMINOPHE | 21:19 | Health | | | | | N (UG/ML) IN | | System - | | | | | SER/PLAS | | [place] | | | | + + + + + + + | SALICYLATE | 2022-09-15 | [facility] | < | mg/dl | (missing) | | (MG/DL) IN | 21:19 | Health | | | | | SER/PLAS | | System - | | | | | | | [place] | | | | + + + + + + + | SALICYLATE | 2022-09-15 | [facility] | < | mg/dl | (missing) | | (MG/DL) IN | 21:19 | Health | | | | | SER/PLAS | | System - | | | | | | | [place] | | | | + + + + + + + | NRBC/100 | 2022-09-15 | [facility] | 0.0 | % | (missing) | | WBCS BY | 21:19 | Health | | | | | AUTOMATED | | System - | | | | | COUNT | | [place] | | | | + + + + + + + | NRBC/100 | 2022-09-15 | [facility] | 0.0 | % | (missing) | | WBCS BY | 21:19 | Health | | | | | AUTOMATED | | System - | | | | | COUNT | | [place] | | | | + + + + + + + | | 2022-09-15 | [facility] | 0.0 | k/mcl | (missing) | | NRBC(10*3/UL | 21:19 | Health | | | | | ) IN BLOOD | | System - | | | | | BY AUTOMATED | | [place] | | | | | COUNT | | | | | | + + + + + + + | EOSINOPHILS | 2022-09-15 | [facility] | 0.0 | k/mcl | (missing) | | (10*3/UL) | 21:19 | Health | | | | | IN BLOOD BY | | System - | | | | | AUTOMATED | | [place] | | | | | COUNT | | | | | | + + + + + + + | EOSINOPHILS | 2022-09-15 | [facility] | 0.0 | k/mcl | (missing) | | (10*3/UL) | 21:19 | Health | | | | | IN BLOOD BY | | System - | | | | | AUTOMATED | | [place] | | | | | COUNT | | | | | | + + + + + + + | | 2022-09-15 | [facility] | 0.0 | k/mcl | (missing) | | NRBC(10*3/UL | 21:19 | Health | | | | | ) IN BLOOD | | System - | | | | | BY AUTOMATED | | [place] | | | | | COUNT | | | | | | + + + + + + + | | 2022-09-15 | [facility] | 0.1 | % | (missing) | | EOSINOPHILS/ | 21:19 | Health | | | | | 100 | | System - | | | | | LEUKOCYTES | | [place] | | | | | IN BLOOD [...] | | | | LEUKOCYTES | | [place] | | | | | IN BLOOD [...] | | | | AUTOMATED | | [place] | | | | | COUNT | | | | | | + + + + + + + | BASOPHILS | 2022-09-15 | [facility] | 0.1 | k/mcl | (missing) | | (10*3/UL) IN | 21:19 | Health | | | | | BLOOD BY | | System - | | | | | AUTOMATED | | [place] | | | | | COUNT | | | | | | + + + + + + + | IMMATURE | 2022-09-15 | [facility] | 0.15 | k/mcl | (missing) | | GRANULOCYTE | 21:19 | Health | | | | | (ABS) | | System - | | | | | | | [place] | | | | + + + + + + + | IMMATURE | 2022-09-15 | [facility] | 0.15 | k/mcl | (missing) | | GRANULOCYTE | 21:19 | Health | | | | | (ABS) | | System - | | | | | | | [place] | | | | + + + + + + + | BILIRUBIN | 2022-09-15 | [facility] | 0.4 | mg/dl | (missing) | | TOTAL | 21:19 | Health | | | | | (MG/DL) IN | | System - | | | | | SER/PLAS | | [place] | | | | + + + + + + + | BILIRUBIN | 2022-09-15 | [facility] | 0.4 | mg/dl | (missing) | | TOTAL | 21:19 | Health | | | | | (MG/DL) IN | | System - | | | | | SER/PLAS | | [place] | | | | + + + + + + + | | 2022-09-15 | [facility] | 0.5 | % | (missing) | | BASOPHILS/10 | 21:19 | Health | | | | | 0 LEUKOCYTES | | System - | | | | | IN BLOOD BY | | [place] | | | | | AUTOMATED | [...] | | IN BLOOD BY | | [place] | | | | | AUTOMATED | [...] | | | | | | | [place] | | | | + + + + + + + | IMMATURE | 2022-09-15 | [facility] | 0.9 | % | (missing) | | GRANULOCYTE | 21:19 | Health | | | | | % (AUTO) | | System - | | | | | | | [place] | | | | + + + + + + + | MONOCYTES | 2022-09-15 | [facility] | 1.1 | k/mcl | (missing) | | (10*3/UL) IN | 21:19 | Health | | | | | BLOOD BY | | System - | | | | | AUTOMATED | | [place] | | | | | COUNT | | | | | | + + + + + + + | MONOCYTES | 2022-09-15 | [facility] | 1.1 | k/mcl | (missing) | | (10*3/UL) IN | 21:19 | Health | | | | | BLOOD BY | | System - | | | | | AUTOMATED | | [place] | | | | | COUNT | | | | | | + + + + + + + | CREATININE | 2022-09-15 | [facility] | 1.2 | mg/dl | (missing) | | (MG/DL) IN | 21:19 | Health | | | | | SER/PLAS | | System - | | | | | | | [place] | | | | + + + + + + + | CREATININE | 2022-09-15 | [facility] | 1.2 | mg/dl | (missing) | | (MG/DL) IN | 21:19 | Health | | | | | SER/PLAS | | System - | | | | | | | [place] | | | | + + + + + + + | BLOOD UREA | 2022-09-15 | [facility] | 10 | mg/dl | (missing) | | NITROGEN | 21:19 | Health | | | | | (BUN) | | System - | | | | | (MG/DL) IN | | [place] | | | | | SER/PLAS | | | | | | + + + + + + + | BLOOD UREA | 2022-09-15 | [facility] | 10 | mg/dl | (missing) | | NITROGEN | 21:19 | Health | | | | | (BUN) | | System - | | | | | (MG/DL) IN | | [place] | | | | | SER/PLAS | | | | | | + + + + + + + | NEUTROPHILS | 2022-09-15 | [facility] | 10.3 | k/mcl | (missing) | | (10*3/UL) | 21:19 | Health | | | | | IN BLOOD BY | | System - | | | | | AUTOMATED | | [place] | | | | | COUNT | | | | | | + + + + + + + | NEUTROPHILS | 2022-09-15 | [facility] | 10.3 | k/mcl | (missing) | | (10*3/UL) | 21:19 | Health | | | | | IN BLOOD BY | | System - | | | | | AUTOMATED | | [place] | | | | | COUNT | | | | | | + + + + + + + | CHLORIDE | 2022-09-15 | [facility] | 104 | mmol/l | (missing) | | (MMOL/L) IN | 21:19 | Health | | | | | SER/PLAS | | System - | | | | | | | [place] | | | | + + + + + + + | CHLORIDE | 2022-09-15 | [facility] | 104 | mmol/l | (missing) | | (MMOL/L) IN | 21:19 | Health | | | | | SER/PLAS | | System - | | | | | | | [place] | | | | + + + + + + + | ALKALINE | 2022-09-15 | [facility] | 105 | u/l | (missing) | | PHOSPHATASE | 21:19 | Health | | | | | (U/L) IN | | System - | | | | | SER/PLAS | | [place] | | | | + + + + + + + | ALKALINE | 2022-09-15 | [facility] | 105 | u/l | (missing) | | PHOSPHATASE | 21:19 | Health | | | | | (U/L) IN | | System - | | | | | SER/PLAS | | [place] | | | | + + + + + + + | ERYTHROCYTE | 2022-09-15 | [facility] | 13.0 | % | (missing) | | | 21:19 | Health | | | | | DISTRIBUTION | | System - | | | | | WIDTH | | [place] | | | | | (RATIO) BY [...] | | | | WIDTH | | [place] | | | | | (RATIO) BY [...] | | | | | | | [place] | | | | + + + + + + + | SODIUM | 2022-09-15 | [facility] | 143 | mmol/l | (missing) | | (MMOL/L) IN | 21:19 | Health | | | | | SER/PLAS | | System - | | | | | | | [place] | | | | + + + + + + + | GLUCOSE, | 2022-09-15 | [facility] | 147 | mg/dl | (missing) | | RANDOM | 21:19 | Health | | | | | (MG/DL) IN | | System - | | | | | SER/PLAS | | [place] | | | | + + + + + + + | GLUCOSE, | 2022-09-15 | [facility] | 147 | mg/dl | (missing) | | RANDOM | 21:19 | Health | | | | | (MG/DL) IN | | System - | | | | | SER/PLAS | | [place] | | | | + + + + + + + | HEMOGLOBIN | 2022-09-15 | [facility] | 15.2 | g/dl | (missing) | | (G/DL) IN | :19 | Health | | | | | BLOOD | | System - | | | | | | | [place] | | | | + + + + + + + | HEMOGLOBIN | 2022-09-15 | [facility] | 15.2 | g/dl | (missing) | | (G/DL) IN | :19 | Health | | | | | BLOOD | | System - | | | | | | | [place] | | | | + + + + + + + | | 2022-09-15 | [facility] | 15.9 | k/mcl | (missing) | | LEUKOCYTES(1 | :19 | Health | | | | | 0*3/UL) IN | | System - | | | | | BLOOD BY | | [place] | | | | | AUTOMATED | [...] | | | BLOOD BY | | [place] | | | | | AUTOMATED | [...] | | | IN SER/PLAS | | [place] | | | | + + + + + + + | TSH | 2022-09-15 | [facility] | 17.90 | mciu/ml | (missing) | | (THYROTROPIN | 21:19 | Health | | | | | ) (UIU/ML) | | System - | | | | | IN SER/PLAS | | [place] | | | | + + + + + + + | ANION GAP | 2022-09-15 | [facility] | 19.0 | mmol/l | (missing) | | IN SER/PLAS | 21:19 | Health | | | | | | | System - | | | | | | | [place] | | | | + + + + + + + | ANION GAP | 2022-09-15 | [facility] | 19.0 | mmol/l | (missing) | | IN SER/PLAS | 21:19 | Health | | | | | | | System - | | | | | | | [place] | | | | + + + + + + + | CARBON | 2022-09-15 | [facility] | 20 | mmol/l | (missing) | | DIOXIDE | 21:19 | Health | | | | | (CO2), TOTAL | | System - | | | | | (MMOL/L) IN | | [place] | | | | | SER/PLAS | | | | | | + + + + + + + | CARBON | 2022-09-15 | [facility] | 20 | mmol/l | (missing) | | DIOXIDE | 21:19 | Health | | | | | (CO2), TOTAL | | System - | | | | | (MMOL/L) IN | | [place] | | | | | SER/PLAS | | | | | | + + + + + + + | | 2022-09-15 | [facility] | 26.6 | % | (missing) | | LYMPHOCYTES/ | 21:19 | Health | | | | | 100 | | System - | | | | | LEUKOCYTES | | [place] | | | | | IN BLOOD [...] | | | | LEUKOCYTES | | [place] | | | | | IN BLOOD [...] | | | (U/L) IN | | [place] | | | | | SER/PLAS | | | | | | + + + + + + + | ASPARTATE | 2022-09-15 | [facility] | 29 | u/l | (missing) | | AMINOTRANSFE | 21:19 | Health | | | | | RASE (SGOT) | | System - | | | | | (U/L) IN | | [place] | | | | | SER/PLAS | | | | | | + + + + + + + | POTASSIUM | 2022-09-15 | [facility] | 3.1 | mmol/l | (missing) | | (MMOL/L) IN | 21:19 | Health | | | | | SER/PLAS | | System - | | | | | | | [place] | | | | + + + + + + + | POTASSIUM | 2022-09-15 | [facility] | 3.1 | mmol/l | (missing) | | (MMOL/L) IN | 21:19 | Health | | | | | SER/PLAS | | System - | | | | | | | [place] | | | | + + + + + + + | ERYTHROCYTE | 2022-09-15 | [facility] | 30.0 | pg | (missing) | | MEAN | 21:19 | Health | | | | | CORPUSCULAR | | System - | | | | | HEMOGLOBIN | | [place] | | | | | (PG) BY [...] | | | | HEMOGLOBIN | | [place] | | | | | (PG) BY [...] | | | | HEMOGLOBIN | | [place] | | | | | CONCENTRATIO | [...] | | | | HEMOGLOBIN | | [place] | | | | | CONCENTRATIO | [...] | | | | AUTOMATED | | [place] | | | | | COUNT | | | | | | + + + + + + + | LYMPHOCYTES | 2022-09-15 | [facility] | 4.2 | k/mcl | (missing) | | (10*3/UL) | 21:19 | Health | | | | | IN BLOOD BY | | System - | | | | | AUTOMATED | | [place] | | | | | COUNT | | | | | | + + + + + + + | ALBUMIN | 2022-09-15 | [facility] | 4.5 | g/dl | (missing) | | (G/DL) IN | 21:19 | Health | | | | | SER/PLAS | | System - | | | | | | | [place] | | | | + + + + + + + | ALBUMIN | 2022-09-15 | [facility] | 4.5 | g/dl | (missing) | | (G/DL) IN | 21:19 | Health | | | | | SER/PLAS | | System - | | | | | | | [place] | | | | + + + + + + + | PLATELETS | 2022-09-15 | [facility] | 417 | k/mcl | (missing) | | (10*3/UL) IN | 21:19 | Health | | | | | BLOOD | | System - | | | | | AUTOMATED | | [place] | | | | | COUNT | | | | | | + + + + + + + | PLATELETS | 2022-09-15 | [facility] | 417 | k/mcl | (missing) | | (10*3/UL) IN | 21:19 | Health | | | | | BLOOD | | System - | | | | | AUTOMATED | | [place] | | | | | COUNT | | | | | | + + + + + + + | HEMATOCRIT | 2022-09-15 | [facility] | 45.9 | % | (missing) | | (%) IN BLOOD | 21:19 | Health | | | | | BY | | System - | | | | | AUTOMATED | | [place] | | | | | COUNT | | | | | | + + + + + + + | HEMATOCRIT | 2022-09-15 | [facility] | 45.9 | % | (missing) | | (%) IN BLOOD | 21:19 | Health | | | | | BY | | System - | | | | | AUTOMATED | | [place] | | | | | COUNT | | | | | | + + + + + + + | ALANINE | 2022-09-15 | [facility] | 48 | u/l | (missing) | | AMINOTRANSFE | 21:19 | Health | | | | | RASE (SGPT) | | System - | | | | | (U/L) IN | | [place] | | | | | SER/PLAS | | | | | | + + + + + + + | ALANINE | 2022-09-15 | [facility] | 48 | u/l | (missing) | | AMINOTRANSFE | 21:19 | Health | | | | | RASE (SGPT) | | System - | | | | | (U/L) IN | | [place] | | | | | SER/PLAS | | | | | | + + + + + + + | | 2022-09-15 | [facility] | 5.06 | m/mcl | (missing) | | ERYTHROCYTES | 21:19 | Health | | | | | (10*6/UL) | | System - | | | | | IN BLOOD BY | | [place] | | | | | AUTOMATED | [...] | | IN BLOOD BY | | [place] | | | | | AUTOMATED | [...] ? | | | RATE) | | [place] | | | | | ML/MIN/1.73 | [...] ? | | | RATE) | | [place] | | | | | ML/MIN/1.73 | [...] | | IN BLOOD BY | | [place] | | | | | AUTOMATED | [...] | | IN BLOOD BY | | [place] | | | | | AUTOMATED | [...] | | | | LEUKOCYTES | | [place] | | | | | IN BLOOD [...] | | | | LEUKOCYTES | | [place] | | | | | IN BLOOD [...] | | | | | | | [place] | | | | + + + + + + + | PROTEIN | 2022-09-15 | [facility] | 7.8 | g/dl | (missing) | | (G/DL) IN | 21:19 | Health | | | | | SER/PLAS | | System - | | | | | | | [place] | | | | + + + + + + + | CALCIUM | 2022-09-15 | [facility] | 9.0 | mg/dl | (missing) | | (MG/DL) IN | 21:19 | Health | | | | | SER/PLAS | | System - | | | | | | | [place] | | | | + + + + + + + | CALCIUM | 2022-09-15 | [facility] | 9.0 | mg/dl | (missing) | | (MG/DL) IN | 21:19 | Health | | | | | SER/PLAS | | System - | | | | | | | [place] | | | | + + + + + + + | PLATELET | 2022-09-15 | [facility] | 9.5 | fl | (missing) | | MEAN VOLUME | 21:19 | Health | | | | | (FL) IN | | System - | | | | | BLOOD BY | | [place] | | | | | AUTOMATED | [...] | | | BLOOD BY | | [place] | | | | | AUTOMATED | [...] | | | VOLUME (FL) | | [place] | | | | | BY AUTOMATED [...] | | | VOLUME (FL) | | [place] | | | | | BY AUTOMATED [...] | | | | | | | [place] | | | | + + + + + + + | INFLUENZA B | 2022-09-15 | [facility] | Negative | (missing) | (missing) | | | 21:19 | Health | | | | | | | System - | | | | | | | [place] | | | | + + + + + + + | RSV | 2022-09-15 | [facility] | Negative | (missing) | (missing) | | | 21:19 | Health | | | | | | | System - | | | | | | | [place] | | | | + + + + + + + | SARS-COV-2 | 2022-09-15 | [facility] | Negative | (missing) | (missing) | | (COVID19) | 21:19 | Health | | | | | CEPHEID PCR | | System - | | | | | | | [place] | | | | + + + + + + + | [facility] QUAL | 2022-09-15 | [facility] | Negative | (missing) | (missing) | | (CHORIOGONAD | 21:19 | Health | | | | | OTROPIN) IN | | System - | | | | | SER/PLAS | | [place] | | | | + + + + + + + | INFLUENZA A | 2022-09-15 | [facility] | Negative | (missing) | (missing) | | | 21:19 | Health | | | | | | | System - | | | | | | | [place] | | | | + + + + + + + | INFLUENZA B | 2022-09-15 | [facility] | Negative | (missing) | (missing) | | | 21:19 | Health | | | | | | | System - | | | | | | | [place] | | | | + + + + + + + | RSV | 2022-09-15 | [facility] | Negative | (missing) | (missing) | | | 21:19 | Health | | | | | | | System - | | | | | | | [place] | | | | + + + + + + + | SARS-COV-2 | 2022-09-15 | [facility] | Negative | (missing) | (missing) | | (COVID19) | 21:19 | Health | | | | | CEPHEID PCR | | System - | | | | | | | [place] | | | | + + + + + + + | [facility] QUAL | 2022-09-15 | [facility] | Negative | (missing) | (missing) | | (CHORIOGONAD | 21:19 | Health | | | | | OTROPIN) IN | | System - | | | | | SER/PLAS | | [place] | | | | + + + + + + + + + | Result panel 79 | + + + + + + + + + | | 2022-09-15 | [facility] | (missing) | (missing) | (missing) | | (unavailable | 21:53 | Health | | | | | ) | | System - | | | | | | | [place] | | | | + + + + + + + | | 2022-09-15 | [facility] | BONES: | (missing) | (missing) | | (unavailable | 21:53 | Health | Normal. | | | | ) | | System - | | | | | | | [place] | | | | + + + + + + + | | 2022-09-15 | [facility] | COMPARISON: | (missing) | (missing) | | (unavailable | 21:53 | Health | 08/23/2022 | | | | ) | | System - | | | | | | | [place] | | | | + + + + + + + | | 2022-09-15 | [facility] | Electronical | (missing) | (missing) | | (unavailable | 21:53 | Health | ly signed | | | | ) | | System - | by: Nithin | | | | | | [place] | MD Suhas | | | | [...] | | | | | | | [place] | | | | + + + + + + + | | 2022-09-15 | [facility] | HEART: | (missing) | (missing) | | (unavailable | 21:53 | Health | Normal in | | | | ) | | System - | size and | | | | | | [place] | appearance. | | | + + + + + + + | | 2022-09-15 | [facility] | | (missing) | (missing) | | (unavailable | 21:53 | Health | INDICATIONS: | | | | ) | | System - | dyspnea | | | | | | [place] | | | | + + + + + + + | | 2022-09-15 | [facility] | LUNGS: | (missing) | (missing) | | (unavailable | 21:53 | Health | Clear. No | | | | ) | | System - | focal | | | | | | [place] | consolidatio | | | | | [...] mediastinal | | | | | | [place] | contours | | | | | [...] of | | | | | | [place] | acute | | | | | [...] pleural | | | | | | [place] | effusion or | | | | [...] VIEW | | | | | | [place] | | | | + + + + + + + | | 2022-09-15 | [facility] | | (missing) | (missing) | | (unavailable | 21:53 | Health | Procedure(s) | | | | ) | | System - | : * No | | | | | | [place] | procedures | | | | | [...] | | | (NG/DL) IN | | [place] | | | | | SER/PLAS | | | | | | + + + +---------+ + + | T4 FREE | 2022-09-15 | [facility] | 1.09 | ng/dl | (missing) | | (THYROXINE | 22:30 | Health | | | | | FREE) | | System - | | | | | (NG/DL) IN | | [place] | | | | | SER/PLAS | | | | | | + + + +---------+ + + | TSH | 2022-09-15 | [facility] | 17.90 | mciu/ml | (missing) | | (THYROTROPIN | 22:30 | Health | | | | | ) (UIU/ML) | | System - | | | | | IN SER/PLAS | | [place] | | | | + + + [...] ? | | | RATE) | | [place] | | | | | ML/MIN/1.73 | [...] ? | | | RATE) | | [place] | | | | | ML/MIN/1.73 | [...] | | | | | | | [place] | | | | + + + + + + + | ALCOHOL | 2022-09-22 | [facility] | < | g/dl | (missing) | | (G/DL) IN | 22:26 | Health | | | | | SER/PLAS | | System - | | | | | | | [place] | | | | + + + + + + + | | 2022-09-22 | [facility] | < | mcg/ml | (missing) | | ACETAMINOPHE | 22:26 | Health | | | | | N (UG/ML) IN | | System - | | | | | SER/PLAS | | [place] | | | | + + + + + + + | | 2022-09-22 | [facility] | < | mcg/ml | (missing) | | ACETAMINOPHE | 22:26 | Health | | | | | N (UG/ML) IN | | System - | | | | | SER/PLAS | | [place] | | | | + + + + + + + | SALICYLATE | 2022-09-22 | [facility] | < | mg/dl | (missing) | | (MG/DL) IN | 22:26 | Health | | | | | SER/PLAS | | System - | | | | | | | [place] | | | | + + + + + + + | SALICYLATE | 2022-09-22 | [facility] | < | mg/dl | (missing) | | (MG/DL) IN | 22:26 | Health | | | | | SER/PLAS | | System - | | | | | | | [place] | | | | + + + + + + + | NRBC/100 | 2022-09-22 | [facility] | 0.0 | % | (missing) | | WBCS BY | 22:26 | Health | | | | | AUTOMATED | | System - | | | | | COUNT | | [place] | | | | + + + + + + + | NRBC/100 | 2022-09-22 | [facility] | 0.0 | % | (missing) | | WBCS BY | 22:26 | Health | | | | | AUTOMATED | | System - | | | | | COUNT | | [place] | | | | + + + + + + + | | 2022-09-22 | [facility] | 0.0 | k/mcl | (missing) | | NRBC(10*3/UL | 22:26 | Health | | | | | ) IN BLOOD | | System - | | | | | BY AUTOMATED | | [place] | | | | | COUNT | | | | | | + + + + + + + | EOSINOPHILS | 2022-09-22 | [facility] | 0.0 | k/mcl | (missing) | | (10*3/UL) | 22:26 | Health | | | | | IN BLOOD BY | | System - | | | | | AUTOMATED | | [place] | | | | | COUNT | | | | | | + + + + + + + | EOSINOPHILS | 2022-09-22 | [facility] | 0.0 | k/mcl | (missing) | | (10*3/UL) | 22:26 | Health | | | | | IN BLOOD BY | | System - | | | | | AUTOMATED | | [place] | | | | | COUNT | | | | | | + + + + + + + | | 2022-09-22 | [facility] | 0.0 | k/mcl | (missing) | | NRBC(10*3/UL | 22:26 | Health | | | | | ) IN BLOOD | | System - | | | | | BY AUTOMATED | | [place] | | | | | COUNT | | | | | | + + + + + + + | | 2022-09-22 | [facility] | 0.1 | % | (missing) | | EOSINOPHILS/ | 22:26 | Health | | | | | 100 | | System - | | | | | LEUKOCYTES | | [place] | | | | | IN BLOOD [...] | | | | LEUKOCYTES | | [place] | | | | | IN BLOOD BY | | | | | | | AUTOMATED | | | | | | | COUNT | | | | | | + + + + + + + | BASOPHILS | 2022-09-22 | [facility] | 0.1 | k/mcl | (missing) | | (10*3/UL) IN | :26 | Health | | | | | BLOOD BY | | System - | | | | | AUTOMATED | | [place] | | | | | COUNT | | | | | | + + + + + + + | BASOPHILS | 2022-09-22 | [facility] | 0.1 | k/mcl | (missing) | | (10*3/UL) IN | : | Health | | | | | BLOOD BY | | System - | | | | | AUTOMATED | | [place] | | | | | COUNT | | | | | | + + + + + + + | IMMATURE | 2022-09-22 | [facility] | 0.11 | k/mcl | (missing) | | GRANULOCYTE | | Health | | | | | (ABS) | | System - | | | | | | | [place] | | | | + + + + + + + | IMMATURE | 2022-09-22 | [facility] | 0.11 | k/mcl | (missing) | | GRANULOCYTE | 22:26 | Health | | | | | (ABS) | | System - | | | | | | | [place] | | | | + + + + + + + | BILIRUBIN | 2022-09-22 | [facility] | 0.2 | mg/dl | (missing) | | TOTAL | 22:26 | Health | | | | | (MG/DL) IN | | System - | | | | | SER/PLAS | | [place] | | | | + + + + + + + | BILIRUBIN | 2022-09-22 | [facility] | 0.2 | mg/dl | (missing) | | TOTAL | 22:26 | Health | | | | | (MG/DL) IN | | System - | | | | | SER/PLAS | | [place] | | | | + + + + + + + | | 2022-09-22 | [facility] | 0.4 | % | (missing) | | BASOPHILS/10 | 22:26 | Health | | | | | 0 LEUKOCYTES | | System - | | | | | IN BLOOD BY | | [place] | | | | | AUTOMATED | [...] | | IN BLOOD BY | | [place] | | | | | AUTOMATED | [...] | | | | | | | [place] | | | | + + + + + + + | IMMATURE | 2022-09-22 | [facility] | 0.7 | % | (missing) | | GRANULOCYTE | 22:26 | Health | | | | | % (AUTO) | | System - | | | | | | | [place] | | | | + + + + + + + | CREATININE | 2022-09-22 | [facility] | 0.9 | mg/dl | (missing) | | (MG/DL) IN | Health | | | | | SER/PLAS | | System - | | | | | | | [place] | | | | + + + + + + + | CREATININE | 2022-09-22 | [facility] | 0.9 | mg/dl | (missing) | | (MG/DL) IN | Health | | | | | SER/PLAS | | System - | | | | | | | [place] | | | | + + + + + + + | MONOCYTES | 2022-09-22 | [facility] | 1.0 | k/mcl | (missing) | | (10*3/UL) IN | : | Health | | | | | BLOOD BY | | System - | | | | | AUTOMATED | | [place] | | | | | COUNT | | | | | | + + + + + + + | MONOCYTES | 2022-09-22 | [facility] | 1.0 | k/mcl | (missing) | | (10*3/UL) IN | 22:26 | Health | | | | | BLOOD BY | | System - | | | | | AUTOMATED | | [place] | | | | | COUNT | | | | | | + + + + + + + | NEUTROPHILS | 2022-09-22 | [facility] | 10.4 | k/mcl | (missing) | | (10*3/UL) | 22:26 | Health | | | | | IN BLOOD BY | | System - | | | | | AUTOMATED | | [place] | | | | | COUNT | | | | | | + + + + + + + | NEUTROPHILS | 2022-09-22 | [facility] | 10.4 | k/mcl | (missing) | | (10*3/UL) | 22:26 | Health | | | | | IN BLOOD BY | | System - | | | | | AUTOMATED | | [place] | | | | | COUNT | | | | | | + + + + + + + | CHLORIDE | 2022-09-22 | [facility] | 104 | mmol/l | (missing) | | (MMOL/L) IN | 22:26 | Health | | | | | SER/PLAS | | System - | | | | | | | [place] | | | | + + + + + + + | CHLORIDE | 2022-09-22 | [facility] | 104 | mmol/l | (missing) | | (MMOL/L) IN | 22:26 | Health | | | | | SER/PLAS | | System - | | | | | | | [place] | | | | + + + + + + + | BLOOD UREA | 2022-09-22 | [facility] | 11 | mg/dl | (missing) | | NITROGEN | 22: | Health | | | | | (BUN) | | System - | | | | | (MG/DL) IN | | [place] | | | | | SER/PLAS | | | | | | + + + + + + + | BLOOD UREA | 2022-09-22 | [facility] | 11 | mg/dl | (missing) | | NITROGEN | 22:26 | Health | | | | | (BUN) | | System - | | | | | (MG/DL) IN | | [place] | | | | | SER/PLAS | | | | | | + + + + + + + | ERYTHROCYTE | 2022-09-22 | [facility] | 13.4 | % | (missing) | | | 22:26 | Health | | | | | DISTRIBUTION | | System - | | | | | WIDTH | | [place] | | | | | (RATIO) BY | | | | | | | AUTOMATED | | | | | | | COUNT | | | | | | + + + + + + + | ERYTHROCYTE | 2022-09-22 | [facility] | 13.4 | % | (missing) | | | 22:26 | Health | | | | | DISTRIBUTION | | System - | | | | | WIDTH | | [place] | | | | | (RATIO) BY [...] | | | | | | | [place] | | | | + + + + + + + | SODIUM | 2022-09-22 | [facility] | 138 | mmol/l | (missing) | | (MMOL/L) IN | : | Health | | | | | SER/PLAS | | System - | | | | | | | [place] | | | | + + + + + + + | HEMOGLOBIN | 2022-09-22 | [facility] | 14.9 | g/dl | (missing) | | (G/DL) IN | 22:26 | Health | | | | | BLOOD | | System - | | | | | | | [place] | | | | + + + + + + + | HEMOGLOBIN | 2022-09-22 | [facility] | 14.9 | g/dl | (missing) | | (G/DL) IN | 22:26 | Health | | | | | BLOOD | | System - | | | | | | | [place] | | | | + + + + + + + | | 2022-09-22 | [facility] | 15.8 | k/mcl | (missing) | | LEUKOCYTES(1 | 22:26 | Health | | | | | 0*3/UL) IN | | System - | | | | | BLOOD BY | | [place] | | | | | AUTOMATED | [...] | | | BLOOD BY | | [place] | | | | | AUTOMATED | [...] | | | (MMOL/L) IN | | [place] | | | | | SER/PLAS | | | | | | + + + + + + + | CARBON | 2022-09-22 | [facility] | 17 | mmol/l | (missing) | | DIOXIDE | 22:26 | Health | | | | | (CO2), TOTAL | | System - | | | | | (MMOL/L) IN | | [place] | | | | | SER/PLAS | | | | | | + + + + + + + | ANION GAP | 2022-09-22 | [facility] | 17.0 | mmol/l | (missing) | | IN SER/PLAS | 22:26 | Health | | | | | | | System - | | | | | | | [place] | | | | + + + + + + + | ANION GAP | 2022-09-22 | [facility] | 17.0 | mmol/l | (missing) | | IN SER/PLAS | 22:26 | Health | | | | | | | System - | | | | | | | [place] | | | | + + + + + + + | | 2022-09-22 | [facility] | 27.0 | % | (missing) | | LYMPHOCYTES/ | 22:26 | Health | | | | | 100 | | System - | | | | | LEUKOCYTES | | [place] | | | | | IN BLOOD [...] | | | | LEUKOCYTES | | [place] | | | | | IN BLOOD [...] | | | (U/L) IN | | [place] | | | | | SER/PLAS | | | | | | + + + + + + + | ASPARTATE | 2022-09-22 | [facility] | 29 | u/l | (missing) | | AMINOTRANSFE | 22:26 | Health | | | | | RASE (SGOT) | | System - | | | | | (U/L) IN | | [place] | | | | | SER/PLAS | | | | | | + + + + + + + | POTASSIUM | 2022-09-22 | [facility] | 3.0 | mmol/l | (missing) | | (MMOL/L) IN | 22:26 | Health | | | | | SER/PLAS | | System - | | | | | | | [place] | | | | + + + + + + + | POTASSIUM | 2022-09-22 | [facility] | 3.0 | mmol/l | (missing) | | (MMOL/L) IN | 22:26 | Health | | | | | SER/PLAS | | System - | | | | | | | [place] | | | | + + + + + + + | ERYTHROCYTE | 2022-09-22 | [facility] | 30.1 | pg | (missing) | | MEAN | 22:26 | Health | | | | | CORPUSCULAR | | System - | | | | | HEMOGLOBIN | | [place] | | | | | (PG) BY [...] | | | | HEMOGLOBIN | | [place] | | | | | (PG) BY [...] | | | | | | | [place] | | | | + + + + + + + | LIPASE | 2022-09-22 | [facility] | 33 | u/l | (missing) | | (U/L) IN | 22:26 | Health | | | | | SER/PLAS | | System - | | | | | | | [place] | | | | + + + + + + + | ERYTHROCYTE | 2022-09-22 | [facility] | 33.2 | g/dl | (missing) | | MEAN | 22:26 | Health | | | | | CORPUSCULAR | | System - | | | | | HEMOGLOBIN | | [place] | | | | | CONCENTRATIO | [...] | | | | HEMOGLOBIN | | [place] | | | | | CONCENTRATIO | [...] | | | | AUTOMATED | | [place] | | | | | COUNT | | | | | | + + + + + + + | LYMPHOCYTES | 2022-09-22 | [facility] | 4.3 | k/mcl | (missing) | | (10*3/UL) | 22:26 | Health | | | | | IN BLOOD BY | | System - | | | | | AUTOMATED | | [place] | | | | | COUNT | | | | | | + + + + + + + | ALBUMIN | 2022-09-22 | [facility] | 4.6 | g/dl | (missing) | | (G/DL) IN | 22:26 | Health | | | | | SER/PLAS | | System - | | | | | | | [place] | | | | + + + + + + + | ALBUMIN | 2022-09-22 | [facility] | 4.6 | g/dl | (missing) | | (G/DL) IN | 22:26 | Health | | | | | SER/PLAS | | System - | | | | | | | [place] | | | | + + + + + + + | | 2022-09-22 | [facility] | 4.95 | m/mcl | (missing) | | ERYTHROCYTES | 22:26 | Health | | | | | (10*6/UL) | | System - | | | | | IN BLOOD BY | | [place] | | | | | AUTOMATED | [...] | | IN BLOOD BY | | [place] | | | | | AUTOMATED | [...] | | | | AUTOMATED | | [place] | | | | | COUNT | | | | | | + + + + + + + | HEMATOCRIT | 2022-09-22 | [facility] | 44.9 | % | (missing) | | (%) IN BLOOD | 22:26 | Health | | | | | BY | | System - | | | | | AUTOMATED | | [place] | | | | | COUNT | | | | | | + + + + + + + | ALANINE | 2022-09-22 | [facility] | 48 | u/l | (missing) | | AMINOTRANSFE | : | Health | | | | | RASE (SGPT) | | System - | | | | | (U/L) IN | | [place] | | | | | SER/PLAS | | | | | | + + + + + + + | ALANINE | 2022-09-22 | [facility] | 48 | u/l | (missing) | | AMINOTRANSFE | : | Health | | | | | RASE (SGPT) | | System - | | | | | (U/L) IN | | [place] | | | | | SER/PLAS | | | | | | + + + + + + + | PLATELETS | 2022-09-22 | [facility] | 485 | k/mcl | (missing) | | (10*3/UL) IN | 22:26 | Health | | | | | BLOOD | | System - | | | | | AUTOMATED | | [place] | | | | | COUNT | | | | | | + + + + + + + | PLATELETS | 2022-09-22 | [facility] | 485 | k/mcl | (missing) | | (10*3/UL) IN | 22:26 | Health | | | | | BLOOD | | System - | | | | | AUTOMATED | | [place] | | | | | COUNT | | | | | | + + + + + + + | | 2022-09-22 | [facility] | 6.1 | % | (missing) | | MONOCYTES/10 | 22:26 | Health | | | | | 0 LEUKOCYTES | | System - | | | | | IN BLOOD BY | | [place] | | | | | AUTOMATED | [...] | | IN BLOOD BY | | [place] | | | | | AUTOMATED | [...] | | | | LEUKOCYTES | | [place] | | | | | IN BLOOD [...] | | | | LEUKOCYTES | | [place] | | | | | IN BLOOD [...] | | | | | | | [place] | | | | + + + + + + + | PROTEIN | 2022-09-22 | [facility] | 7.5 | g/dl | (missing) | | (G/DL) IN | : | Health | | | | | SER/PLAS | | System - | | | | | | | [place] | | | | + + + + + + + | CALCIUM | 2022-09-22 | [facility] | 8.9 | mg/dl | (missing) | | (MG/DL) IN | : | Health | | | | | SER/PLAS | | System - | | | | | | | [place] | | | | + + + + + + + | CALCIUM | 2022-09-22 | [facility] | 8.9 | mg/dl | (missing) | | (MG/DL) IN | 22:26 | Health | | | | | SER/PLAS | | System - | | | | | | | [place] | | | | + + + + + + + | PLATELET | 2022-09-22 | [facility] | 9.4 | fl | (missing) | | MEAN VOLUME | 22:26 | Health | | | | | (FL) IN | | System - | | | | | BLOOD BY | | [place] | | | | | AUTOMATED | [...] | | | BLOOD BY | | [place] | | | | | AUTOMATED | [...] | | | VOLUME (FL) | | [place] | | | | | BY AUTOMATED [...] | | | VOLUME (FL) | | [place] | | | | | BY AUTOMATED [...] | | | | SER/PLAS | | [place] | | | | + + + + + + + | ALKALINE | 2022-09-22 | [facility] | 94 | u/l | (missing) | | PHOSPHATASE | 22:26 | Health | | | | | (U/L) IN | | System - | | | | | SER/PLAS | | [place] | | | | + + + + + + + | GLUCOSE, | 2022-09-22 | [facility] | 99 | mg/dl | (missing) | | RANDOM | 22:26 | Health | | | | | (MG/DL) IN | | System - | | | | | SER/PLAS | | [place] | | | | + + + + + + + | GLUCOSE, | 2022-09-22 | [facility] | 99 | mg/dl | (missing) | | RANDOM | 22:26 | Health | | | | | (MG/DL) IN | | System - | | | | | SER/PLAS | | [place] | | | | + + + + + + + | | 2022-09-22 | [facility] | Negative | (missing) | (missing) | | BARBITURATES | 22:26 | Health | | | | | PRESENCE IN | | System - | | | | | URINE BY | | [place] | | | | | SCREEN | [...] | | | | (PRESENCE) | | [place] | | | | | IN URINE [...] | | | | SCREEN | | [place] | | | | | METHOD | | | | | | + + + + + + + | METHADONE | 2022-09-22 | [facility] | Negative | (missing) | (missing) | | (PRESENCE) | 22:26 | Health | | | | | IN URINE BY | | System - | | | | | SCREEN | | [place] | | | | | METHOD | | | | | | + + + + + + + | OPIATES | 2022-09-22 | [facility] | Negative | (missing) | (missing) | | (PRESENCE) | 22:26 | Health | | | | | IN URINE BY | | System - | | | | | SCREEN | | [place] | | | | | METHOD | | | | | | + + + + + + + | OXYCODONE | 2022-09-22 | [facility] | Negative | (missing) | (missing) | | (PRESENCE) | 22:26 | Health | | | | | IN URINE BY | | System - | | | | | SCREEN | | [place] | | | | | METHOD | | | | | | + + + + + + + | | 2022-09-22 | [facility] | Negative | (missing) | (missing) | | PHENCYCLIDIN | 22:26 | Health | | | | | E (PRESENCE) | | System - | | | | | IN URINE BY | | [place] | | | | | SCREEN | [...] | | | BY SCREEN | | [place] | | | | | METHOD | | | | | | + + + + + + + | TRICYCLIC | 2022-09-22 | [facility] | Negative | (missing) | (missing) | | ANTIDEPRESSA | 22:26 | Health | | | | | NTS | | System - | | | | | (PRESENCE) | | [place] | | | | | IN URINE | | | | | | + + + + + + + | | 2022-09-22 | [facility] | Negative | (missing) | (missing) | | PHENCYCLIDIN | 22:26 | Health | | | | | E (PRESENCE) | | System - | | | | | IN URINE BY | | [place] | | | | | SCREEN | [...] | | | BY SCREEN | | [place] | | | | | METHOD | | | | | | + + + + + + + | OPIATES | 2022-09-22 | [facility] | Negative | (missing) | (missing) | | (PRESENCE) | 22:26 | Health | | | | | IN URINE BY | | System - | | | | | SCREEN | | [place] | | | | | METHOD | | | | | | + + + + + + + | TRICYCLIC | 2022-09-22 | [facility] | Negative | (missing) | (missing) | | ANTIDEPRESSA | 22:26 | Health | | | | | NTS | | System - | | | | | (PRESENCE) | | [place] | | | | | IN URINE | | | | | | + + + + + + + | OXYCODONE | 2022-09-22 | [facility] | Negative | (missing) | (missing) | | (PRESENCE) | 22:26 | Health | | | | | IN URINE BY | | System - | | | | | SCREEN | | [place] | | | | | METHOD | | | | | | + + + + + + + | BHCG QUAL | 2022-09-22 | [facility] | Negative | (missing) | (missing) | | (CHORIOGONAD | 22:26 | Health | | | | | OTROPIN) IN | | System - | | | | | SER/PLAS | | [place] | | | | + + + + + + + | COCAINE | 2022-09-22 | [facility] | Negative | (missing) | (missing) | | (PRESENCE) | 22:26 | Health | | | | | IN URINE BY | | System - | | | | | SCREEN | | [place] | | | | | METHOD | | | | | | + + + + + + + | | 2022-09-22 | [facility] | Negative | (missing) | (missing) | | BARBITURATES | 22:26 | Health | | | | | PRESENCE IN | | System - | | | | | URINE BY | | [place] | | | | | SCREEN | [...] | | | | (PRESENCE) | | [place] | | | | | IN URINE [...] | | | | SCREEN | | [place] | | | | | METHOD | | | | | | + + + + + + + | BHCG QUAL | 2022-09-22 | [facility] | Negative | (missing) | (missing) | | (CHORIOGONAD | 22:26 | Health | | | | | OTROPIN) IN | | System - | | | | | SER/PLAS | | [place] | | | | + + + + + + + | | 2022-09-22 | [facility] | Presumptive | (missing) | (missing) | | METHAMPHETAM | 22:26 | Health | Positive | | | | INE | | System - | | | | | (PRESENCE) | | [place] | | | | | IN URINE [...] | | | | SCREEN | | [place] | | | | | METHOD | | | | | | + + + + + + + | | 2022-09-22 | [facility] | Presumptive | (missing) | (missing) | | METHAMPHETAM | 22:26 | Health | Positive | | | | INE | | System - | | | | | (PRESENCE) | | [place] | | | | | IN URINE [...] | | | | SCREEN | | [place] | | | | | METHOD | [...] | | | | SEDIMENT | | [place] | | | | + + + + + + + | PROTEIN IN | 2022-09-22 | [facility] | 1 | (missing) | (missing) | | URINE BY | : | Health | | | | | TEST STRIP | | System - | | | | | | | [place] | | | | + + + + + + + | MUCUS | 2022-09-22 | [facility] | 1 | (missing) | (missing) | | (#/HPF) IN | :27 | Health | | | | | URINE | | System - | | | | | SEDIMENT | | [place] | | | | + + + + + + + | PROTEIN IN | 2022-09-22 | [facility] | 1 | (missing) | (missing) | | URINE BY | | Health | | | | | TEST STRIP | | System - | | | | | | | [place] | | | | + + + + + + + | SPECIFIC | 2022-09-22 | [facility] | 1.037 | (missing) | (missing) | | GRAVITY OF | 22:27 | Health | | | | | URINE BY | | System - | | | | | AUTOMATED | | [place] | | | | | TEST STRIP | | | | | | + + + + + + + | SPECIFIC | 2022-09-22 | [facility] | 1.037 | (missing) | (missing) | | GRAVITY OF | 22:27 | Health | | | | | URINE BY | | System - | | | | | AUTOMATED | | [place] | | | | | TEST STRIP | | | | | | + + + + + + + | WBC | 2022-09-22 | [facility] | 13 | /hpf | (missing) | | (LEUKOCYTE) | 22:27 | Health | | | | | (#/HPF) IN | | System - | | | | | URINE | | [place] | | | | | SEDIMENT | | | | | | + + + + + + + | WBC | 2022-09-22 | [facility] | 13 | /hpf | (missing) | | (LEUKOCYTE) | 22:27 | Health | | | | | (#/HPF) IN | | System - | | | | | URINE | | [place] | | | | | SEDIMENT | | | | | | + + + + + + + | PH OF URINE | 2022-09-22 | [facility] | 5.5 | (missing) | (missing) | | | 22:27 | Health | | | | | | | System - | | | | | | | [place] | | | | + + + + + + + | PH OF URINE | 2022-09-22 | [facility] | 5.5 | (missing) | (missing) | | | 22:27 | Health | | | | | | | System - | | | | | | | [place] | | | | + + + + + + + | RBC (#/HPF) | 2022-09-22 | [facility] | 6 | /hpf | (missing) | | IN URINE | 22:27 | Health | | | | | SEDIMENT | | System - | | | | | | | [place] | | | | + + + + + + + | RBC (#/HPF) | 2022-09-22 | [facility] | 6 | /hpf | (missing) | | IN URINE | 22:27 | Health | | | | | SEDIMENT | | System - | | | | | | | [place] | | | | + + + + + + + | SQUAMOUS | 2022-09-22 | [facility] | 8 | /hpf | (missing) | | EPITHELIAL | 22:27 | Health | | | | | CELLS | | System - | | | | | (#/HPF) IN | | [place] | | | | | URINE | [...] | | | (#/HPF) IN | | [place] | | | | | URINE | [...] | | | | | | | [place] | | | | + + + + + + + | CLARITY OF | 2022-09-22 | [facility] | [place] | (missing) | (missing) | | URINE | 22:27 | Health | | | | | | | System - | | | | | | | [place] | | | | + + + + + + + | BILIRUBIN, | 2022-09-22 | [facility] | Negative | (missing) | (missing) | | TOTAL | 22:27 | Health | | | | | PRESENCE IN | | System - | | | | | URINE | | [place] | | | | + + + + + + + | GLUCOSE IN | 2022-09-22 | [facility] | Negative | (missing) | (missing) | | URINE | 22:27 | Health | | | | | | | System - | | | | | | | [place] | | | | + + + + + + + | LEUKOCYTE | 2022-09-22 | [facility] | Negative | (missing) | (missing) | | ESTERASE | 22:27 | Health | | | | | PRESENCE IN | | System - | | | | | URINE BY | | [place] | | | | | TEST STRIP | | | | | | + + + + + + + | NITRITE | 2022-09-22 | [facility] | Negative | (missing) | (missing) | | PRESENCE IN | 22:27 | Health | | | | | URINE | | System - | | | | | | | [place] | | | | + + + + + + + | BILIRUBIN, | 2022-09-22 | [facility] | Negative | (missing) | (missing) | | TOTAL | 22:27 | Health | | | | | PRESENCE IN | | System - | | | | | URINE | | [place] | | | | + + + + + + + | GLUCOSE IN | 2022-09-22 | [facility] | Negative | (missing) | (missing) | | URINE | 22:27 | Health | | | | | | | System - | | | | | | | [place] | | | | + + + + + + + | NITRITE | 2022-09-22 | [facility] | Negative | (missing) | (missing) | | PRESENCE IN | 22:27 | Health | | | | | URINE | | System - | | | | | | | [place] | | | | + + + + + + + | LEUKOCYTE | 2022-09-22 | [facility] | Negative | (missing) | (missing) | | ESTERASE | 22:27 | Health | | | | | PRESENCE IN | | System - | | | | | URINE BY | | [place] | | | | | TEST STRIP | | | | | | + + + + + + + | | 2022-09-22 | [facility] | Normal | mg/dl | (missing) | | UROBILINOGEN | 22:27 | Health | | | | | (MG/DL) IN | | System - | | | | | URINE BY | | [place] | | | | | TEST STRIP | | | | | | + + + + + + + | | 2022-09-22 | [facility] | Normal | mg/dl | (missing) | | UROBILINOGEN | 22:27 | Health | | | | | (MG/DL) IN | | System - | | | | | URINE BY | | [place] | | | | | TEST STRIP | | | | | | + + + + + + + | HEMOGLOBIN | 2022-09-22 | [facility] | Trace | (missing) | (missing) | | PRESENCE IN | 22:27 | Health | | | | | URINE | | System - | | | | | | | [place] | | | | + + + + + + + | KETONES IN | 2022-09-22 | [facility] | Trace | (missing) | (missing) | | URINE | 22:27 | Health | | | | | | | System - | | | | | | | [place] | | | | + + + + + + + | KETONES IN | 2022-09-22 | [facility] | Trace | (missing) | (missing) | | URINE | 22:27 | Health | | | | | | | System - | | | | | | | [place] | | | | + + + + + + + | HEMOGLOBIN | 2022-09-22 | [facility] | Trace | (missing) | (missing) | | PRESENCE IN | 22:27 | Health | | | | | URINE | | System - | | | | | | | [place] | | | | + + + + + + + | BACTERIA | 2022-09-22 | [facility] | Trace | /hpf | (missing) | | (#/HPF) IN | 22:27 | Health | | | | | URINE | | System - | | | | | | | [place] | | | | + + + + + + + | BACTERIA | 2022-09-22 | [facility] | Trace | /hpf | (missing) | | (#/HPF) IN | 22:27 | Health | | | | | URINE | | System - | | | | | | | [place] | | | | + + + + + + + | COLOR OF | 2022-09-22 | [facility] | Yellow | (missing) | (missing) | | URINE | 22:27 | Health | | | | | | | System - | | | | | | | [place] | | | | + + + + + + + | COLOR OF | 2022-09-22 | [facility] | Yellow | (missing) | (missing) | | URINE | 22:27 | Health | | | | | | | System - | | | | | | | [place] | | | | + + + [...] | | | | BLOOD | | [place] | | | | + + + + + + + | LACTIC ACID | 2022-09-22 | [facility] | 2.1 | mmol/l | (missing) | | (LACTATE) | 22:40 | Health | | | | | (MMOL/L) IN | | System - | | | | | BLOOD | | [place] | | | | + + + + + + + | ADENOVIRUS | 2022-09-22 | [facility] | Not | (missing) | (missing) | | DETECTION BY | 22:40 | Health | Detected | | | | PCR | | System - | | | | | | | [place] | | | | + + + + + + + | BORDETELLA | 2022-09-22 | [facility] | Not | (missing) | (missing) | | PARAPERTUSSI | 22:40 | Health | Detected | | | | S | | System - | | | | | | | [place] | | | | + + + + + + + | BORDETELLA | 2022-09-22 | [facility] | Not | (missing) | (missing) | | PERTUSSIS | 22:40 | Health | Detected | | | | | | System - | | | | | | | [place] | | | | + + + + + + + | | 2022-09-22 | [facility] | Not | (missing) | (missing) | | CHLAMYDOPHIL | 22:40 | Health | Detected | | | | A PNEUMONIAE | | System - | | | | | | | [place] | | | | + + + + + + + | CORONAVIRUS | 2022-09-22 | [facility] | Not | (missing) | (missing) | | 229E | 22:40 | Health | Detected | | | | | | System - | | | | | | | [place] | | | | + + + + + + + | CORONAVIRUS | 2022-09-22 | [facility] | Not | (missing) | (missing) | | HKU1 | 22:40 | Health | Detected | | | | | | System - | | | | | | | [place] | | | | + + + + + + + | CORONAVIRUS | 2022-09-22 | [facility] | Not | (missing) | (missing) | | NL63 | 22:40 | Health | Detected | | | | | | System - | | | | | | | [place] | | | | + + + + + + + | CORONAVIRUS | 2022-09-22 | [facility] | Not | (missing) | (missing) | | OC43 | 22:40 | Health | Detected | | | | | | System - | | | | | | | [place] | | | | + + + + + + + | INFLUENZA A | 2022-09-22 | [facility] | Not | (missing) | (missing) | | | 22:40 | Health | Detected | | | | | | System - | | | | | | | [place] | | | | + + + + + + + | INFLUENZA B | 2022-09-22 | [facility] | Not | (missing) | (missing) | | | 22:40 | Health | Detected | | | | | | System - | | | | | | | [place] | | | | + + + + + + + | | 2022-09-22 | [facility] | Not | (missing) | (missing) | | METAPNEUMOVI | 22:40 | Health | Detected | | | | KELVIN | | System - | | | | | | | [place] | | | | + + + + + + + | MYCOPLASMA | 2022-09-22 | [facility] | Not | (missing) | (missing) | | PNEUMONIAE | 22:40 | Health | Detected | | | | PCR | | System - | | | | | | | [place] | | | | + + + + + + + | | 2022-09-22 | [facility] | Not | (missing) | (missing) | | PARAINFLUENZ | 22:40 | Health | Detected | | | | A 1 | | System - | | | | | | | [place] | | | | + + + + + + + | | 2022-09-22 | [facility] | Not | (missing) | (missing) | | PARAINFLUENZ | 22:40 | Health | Detected | | | | A 2 | | System - | | | | | | | [place] | | | | + + + + + + + | | 2022-09-22 | [facility] | Not | (missing) | (missing) | | PARAINFLUENZ | 22:40 | Health | Detected | | | | A 3 | | System - | | | | | | | [place] | | | | + + + + + + + | | 2022-09-22 | [facility] | Not | (missing) | (missing) | | PARAINFLUENZ | 22:40 | Health | Detected | | | | A 4 | | System - | | | | | | | [place] | | | | + + + + + + + | | 2022-09-22 | [facility] | Not | (missing) | (missing) | | RHINOVIRUS/E | 22:40 | Health | Detected | | | | NTEROVIRUS | | System - | | | | | | | [place] | | | | + + + + + + + | RSV | 2022-09-22 | [facility] | Not | (missing) | (missing) | | | 22:40 | Health | Detected | | | | | | System - | | | | | | | [place] | | | | + + + + + + + | SARS-COV-2 | 2022-09-22 | [facility] | Not | (missing) | (missing) | | (COVID19) | 22:40 | Health | Detected | | | | BIOFIRE PCR | | System - | | | | | | | [place] | | | | + + + + + + + | RSV | 2022-09-22 | [facility] | Not | (missing) | (missing) | | | 22:40 | Health | Detected | | | | | | System - | | | | | | | [place] | | | | + + + + + + + | ADENOVIRUS | 2022-09-22 | [facility] | Not | (missing) | (missing) | | DETECTION BY | 22:40 | Health | Detected | | | | PCR | | System - | | | | | | | [place] | | | | + + + + + + + | CORONAVIRUS | 2022-09-22 | [facility] | Not | (missing) | (missing) | | HKU1 | 22:40 | Health | Detected | | | | | | System - | | | | | | | [place] | | | | + + + + + + + | CORONAVIRUS | 2022-09-22 | [facility] | Not | (missing) | (missing) | | NL63 | 22:40 | Health | Detected | | | | | | System - | | | | | | | [place] | | | | + + + + + + + | CORONAVIRUS | 2022-09-22 | [facility] | Not | (missing) | (missing) | | 229E | 22:40 | Health | Detected | | | | | | System - | | | | | | | [place] | | | | + + + + + + + | CORONAVIRUS | 2022-09-22 | [facility] | Not | (missing) | (missing) | | OC43 | 22:40 | Health | Detected | | | | | | System - | | | | | | | [place] | | | | + + + + + + + | | 2022-09-22 | [facility] | Not | (missing) | (missing) | | METAPNEUMOVI | 22:40 | Health | Detected | | | | KELVIN | | System - | | | | | | | [place] | | | | + + + + + + + | INFLUENZA A | 2022-09-22 | [facility] | Not | (missing) | (missing) | | | 22:40 | Health | Detected | | | | | | System - | | | | | | | [place] | | | | + + + + + + + | INFLUENZA B | 2022-09-22 | [facility] | Not | (missing) | (missing) | | | 22:40 | Health | Detected | | | | | | System - | | | | | | | [place] | | | | + + + + + + + | | 2022-09-22 | [facility] | Not | (missing) | (missing) | | PARAINFLUENZ | 22:40 | Health | Detected | | | | A 1 | | System - | | | | | | | [place] | | | | + + + + + + + | | 2022-09-22 | [facility] | Not | (missing) | (missing) | | PARAINFLUENZ | 22:40 | Health | Detected | | | | A 2 | | System - | | | | | | | [place] | | | | + + + + + + + | | 2022-09-22 | [facility] | Not | (missing) | (missing) | | PARAINFLUENZ | 22:40 | Health | Detected | | | | A 3 | | System - | | | | | | | [place] | | | | + + + + + + + | | 2022-09-22 | [facility] | Not | (missing) | (missing) | | PARAINFLUENZ | 22:40 | Health | Detected | | | | A 4 | | System - | | | | | | | [place] | | | | + + + + + + + | | 2022-09-22 | [facility] | Not | (missing) | (missing) | | RHINOVIRUS/E | 22:40 | Health | Detected | | | | NTEROVIRUS | | System - | | | | | | | [place] | | | | + + + + + + + | MYCOPLASMA | 2022-09-22 | [facility] | Not | (missing) | (missing) | | PNEUMONIAE | 22:40 | Health | Detected | | | | PCR | | System - | | | | | | | [place] | | | | + + + + + + + | | 2022-09-22 | [facility] | Not | (missing) | (missing) | | CHLAMYDOPHIL | 22:40 | Health | Detected | | | | A PNEUMONIAE | | System - | | | | | | | [place] | | | | + + + + + + + | BORDETELLA | 2022-09-22 | [facility] | Not | (missing) | (missing) | | PERTUSSIS | 22:40 | Health | Detected | | | | | | System - | | | | | | | [place] | | | | + + + + + + + | BORDETELLA | 2022-09-22 | [facility] | Not | (missing) | (missing) | | PARAPERTUSSI | 22:40 | Health | Detected | | | | S | | System - | | | | | | | [place] | | | | + + + + + + + | SARS-COV-2 | 2022-09-22 | [facility] | Not | (missing) | (missing) | | (COVID19) | 22:40 | Health | Detected | | | | BIOFIRE PCR | | System - | | | | | | | [place] | | | | + + + + + + + + + | Result panel 84 | + + + + + + + + + | | 2022-09-22 | [facility] | (missing) | (missing) | (missing) | | (unavailable | 22:41 | Health | | | | | ) | | System - | | | | | | | [place] | | | | + + + + + + + | | 2022-09-22 | [facility] | BONES: | (missing) | (missing) | | (unavailable | 22:41 | Health | Normal. | | | | ) | | System - | | | | | | | [place] | | | | + + + + + + + | | 2022-09-22 | [facility] | COMPARISON: | (missing) | (missing) | | (unavailable | 22:41 | Health | Chest | | | | ) | | System - | single view | | | | | | [place] | September 15, | | | | | | | 2022. | | | + + + + + + + | | 2022-09-22 | [facility] | Electronical | (missing) | (missing) | | (unavailable | 22:41 | Health | ly signed | | | | ) | | System - | by: Nithin | | | | | | Cathy Mondragon, | | | | | | [...] | | | | | | | [place] | | | | + + + + + + + | | 2022-09-22 | [facility] | HEART: | (missing) | (missing) | | (unavailable | 22:41 | Health | Mildly | | | | ) | | System - | enlarged | | | | | | [place] | with | | | | | [...] Productive | | | | | | [place] | cough | | | + + + + + + + | | 2022-09-22 | [facility] | LUNGS: | (missing) | (missing) | | (unavailable | 22:41 | Health | Clear. No | | | | ) | | System - | focal | | | | | | [place] | consolidatio | | | | | [...] mediastinal | | | | | | [place] | contours | | | | | [...] . | | | | | | [place] | | | | + + + + + + + | | 2022-09-22 | [facility] | No | (missing) | (missing) | | (unavailable | 22:41 | Health | radiographic | | | | ) | | System - | evidence of | | | | | | [place] | acute | | | | | [...] pleural | | | | | | [place] | effusion or | | | | [...] VIEW | | | | | | [place] | | | | + + + + + + + | | 2022-09-22 | [facility] | | (missing) | (missing) | | (unavailable | 22:41 | Health | Procedure(s) | | | | ) | | System - | : * No | | | | | | [place] | procedures | | | | | [...] | | | | | | | [place] | | | | + + + [...] | | | | SEDIMENT | | [place] | | | | + + + + + + + | PROTEIN IN | 2022-09-23 | [facility] | 1 | (missing) | (missing) | | URINE BY | 00:01 | Health | | | | | TEST STRIP | | System - | | | | | | | [place] | | | | + + + + + + + | SPECIFIC | 2022-09-23 | [facility] | 1.037 | (missing) | (missing) | | GRAVITY OF | 00:01 | Health | | | | | URINE BY | | System - | | | | | AUTOMATED | | [place] | | | | | TEST STRIP | | | | | | + + + + + + + | WBC | 2022-09-23 | [facility] | 13 | /hpf | (missing) | | (LEUKOCYTE) | 00:01 | Health | | | | | (#/HPF) IN | | System - | | | | | URINE | | [place] | | | | | SEDIMENT | | | | | | + + + + + + + | PH OF URINE | 2022-09-23 | [facility] | 5.5 | (missing) | (missing) | | | 00:01 | Health | | | | | | | System - | | | | | | | [place] | | | | + + + + + + + | RBC (#/HPF) | 2022-09-23 | [facility] | 6 | /hpf | (missing) | | IN URINE | 00:01 | Health | | | | | SEDIMENT | | System - | | | | | | | [place] | | | | + + + + + + + | SQUAMOUS | 2022-09-23 | [facility] | 8 | /hpf | (missing) | | EPITHELIAL | 00:01 | Health | | | | | CELLS | | System - | | | | | (#/HPF) IN | | [place] | | | | | URINE | [...] | | | | | | | [place] | | | | + + + + + + + | BILIRUBIN, | 2022-09-23 | [facility] | Negative | (missing) | (missing) | | TOTAL | 00:01 | Health | | | | | PRESENCE IN | | System - | | | | | URINE | | [place] | | | | + + + + + + + | GLUCOSE IN | 2022-09-23 | [facility] | Negative | (missing) | (missing) | | URINE | 00:01 | Health | | | | | | | System - | | | | | | | [place] | | | | + + + + + + + | NITRITE | 2022-09-23 | [facility] | Negative | (missing) | (missing) | | PRESENCE IN | 00:01 | Health | | | | | URINE | | System - | | | | | | | [place] | | | | + + + + + + + | LEUKOCYTE | 2022-09-23 | [facility] | Negative | (missing) | (missing) | | ESTERASE | 00:01 | Health | | | | | PRESENCE IN | | System - | | | | | URINE BY | | [place] | | | | | TEST STRIP | | | | | | + + + + + + + | URINE | 2022-09-23 | [facility] | Normal | (missing) | (missing) | | CULTURE | 00:01 | Health | urogenital | | | | | | System - | microbiota | | | | | | [place] | | | | + + + + + + + | URINE | 2022-09-23 | [facility] | Normal | (missing) | (missing) | | CULTURE | 00:01 | Health | urogenital | | | | | | System - | microbiota | | | | | | [place] | | | | + + + + + + + | | 2022-09-23 | [facility] | Normal | mg/dl | (missing) | | UROBILINOGEN | 00:01 | Health | | | | | (MG/DL) IN | | System - | | | | | URINE BY | | [place] | | | | | TEST STRIP | | | | | | + + + + + + + | KETONES IN | 2022-09-23 | [facility] | Trace | (missing) | (missing) | | URINE | 00:01 | Health | | | | | | | System - | | | | | | | [place] | | | | + + + + + + + | HEMOGLOBIN | 2022-09-23 | [facility] | Trace | (missing) | (missing) | | PRESENCE IN | 00:01 | Health | | | | | URINE | | System - | | | | | | | [place] | | | | + + + + + + + | BACTERIA | 2022-09-23 | [facility] | Trace | /hpf | (missing) | | (#/HPF) IN | 00:01 | Health | | | | | URINE | | System - | | | | | | | [place] | | | | + + + + + + + | COLOR OF | 2022-09-23 | [facility] | Yellow | (missing) | (missing) | | URINE | 00:01 | Health | | | | | | | System - | | | | | | | [place] | | | | + + + [...] ? | | | RATE) | | [place] | | | | | ML/MIN/1.73 | [...] ? | | | RATE) | | [place] | | | | | ML/MIN/1.73 | [...] | | | | SER/PLAS | | [place] | | | | + + + + + + + | | 2022-11-08 | [facility] | < | mcg/ml | (missing) | | ACETAMINOPHE | 11:31 | Health | | | | | N (UG/ML) IN | | System - | | | | | SER/PLAS | | [place] | | | | + + + + + + + | NRBC/100 | 2022-11-08 | [facility] | 0.0 | % | (missing) | | WBCS BY | 11:31 | Health | | | | | AUTOMATED | | System - | | | | | COUNT | | [place] | | | | + + + + + + + | | 2022-11-08 | [facility] | 0.0 | % | (missing) | | EOSINOPHILS/ | 11:31 | Health | | | | | 100 | | System - | | | | | LEUKOCYTES | | [place] | | | | | IN BLOOD [...] | | | | COUNT | | [place] | | | | + + + + + + + | | 2022-11-08 | [facility] | 0.0 | % | (missing) | | EOSINOPHILS/ | 11:31 | Health | | | | | 100 | | System - | | | | | LEUKOCYTES | | [place] | | | | | IN BLOOD [...] | | | BY AUTOMATED | | [place] | | | | | COUNT | | | | | | + + + + + + + | EOSINOPHILS | 2022-11-08 | [facility] | 0.0 | k/mcl | (missing) | | (10*3/UL) | 11:31 | Health | | | | | IN BLOOD BY | | System - | | | | | AUTOMATED | | [place] | | | | | COUNT | | | | | | + + + + + + + | EOSINOPHILS | 2022-11-08 | [facility] | 0.0 | k/mcl | (missing) | | (10*3/UL) | 11:31 | Health | | | | | IN BLOOD BY | | System - | | | | | AUTOMATED | | [place] | | | | | COUNT | | | | | | + + + + + + + | | 2022-11-08 | [facility] | 0.0 | k/mcl | (missing) | | NRBC(10*3/UL | 11:31 | Health | | | | | ) IN BLOOD | | System - | | | | | BY AUTOMATED | | [place] | | | | | COUNT | | | | | | + + + + + + + | ALCOHOL | 2022-11-08 | [facility] | 0.020 | g/dl | (missing) | | (G/DL) IN | 11:31 | Health | | | | | SER/PLAS | | System - | | | | | | | [place] | | | | + + + + + + + | ALCOHOL | 2022-11-08 | [facility] | 0.020 | g/dl | (missing) | | (G/DL) IN | 11:31 | Health | | | | | SER/PLAS | | System - | | | | | | | [place] | | | | + + + + + + + | IMMATURE | 2022-11-08 | [facility] | 0.08 | k/mcl | (missing) | | GRANULOCYTE | 11:31 | Health | | | | | (ABS) | | System - | | | | | | | [place] | | | | + + + + + + + | IMMATURE | 2022-11-08 | [facility] | 0.08 | k/mcl | (missing) | | GRANULOCYTE | 11:31 | Health | | | | | (ABS) | | System - | | | | | | | [place] | | | | + + + + + + + | BASOPHILS | 2022-11-08 | [facility] | 0.1 | k/mcl | (missing) | | (10*3/UL) IN | 11:31 | Health | | | | | BLOOD BY | | System - | | | | | AUTOMATED | | [place] | | | | | COUNT | | | | | | + + + + + + + | BASOPHILS | 2022-11-08 | [facility] | 0.1 | k/mcl | (missing) | | (10*3/UL) IN | 11:31 | Health | | | | | BLOOD BY | | System - | | | | | AUTOMATED | | [place] | | | | | COUNT | | | | | | + + + + + + + | BILIRUBIN | 2022-11-08 | [facility] | 0.3 | mg/dl | (missing) | | TOTAL | 11:31 | Health | | | | | (MG/DL) IN | | System - | | | | | SER/PLAS | | [place] | | | | + + + + + + + | BILIRUBIN | 2022-11-08 | [facility] | 0.3 | mg/dl | (missing) | | TOTAL | 11:31 | Health | | | | | (MG/DL) IN | | System - | | | | | SER/PLAS | | [place] | | | | + + + + + + + | IMMATURE | 2022-11-08 | [facility] | 0.6 | % | (missing) | | GRANULOCYTE | 11:31 | Health | | | | | % (AUTO) | | System - | | | | | | | [place] | | | | + + + + + + + | | 2022-11-08 | [facility] | 0.6 | % | (missing) | | BASOPHILS/10 | 11:31 | Health | | | | | 0 LEUKOCYTES | | System - | | | | | IN BLOOD BY | | [place] | | | | | AUTOMATED | [...] | | IN BLOOD BY | | [place] | | | | | AUTOMATED | [...] | | | | | | | [place] | | | | + + + + + + + | MONOCYTES | 2022-11-08 | [facility] | 0.9 | k/mcl | (missing) | | (10*3/UL) IN | 11:31 | Health | | | | | BLOOD BY | | System - | | | | | AUTOMATED | | [place] | | | | | COUNT | | | | | | + + + + + + + | MONOCYTES | 2022-11-08 | [facility] | 0.9 | k/mcl | (missing) | | (10*3/UL) IN | 11:31 | Health | | | | | BLOOD BY | | System - | | | | | AUTOMATED | | [place] | | | | | COUNT | | | | | | + + + + + + + | CREATININE | 2022-11-08 | [facility] | 0.9 | mg/dl | (missing) | | (MG/DL) IN | 11:31 | Health | | | | | SER/PLAS | | System - | | | | | | | [place] | | | | + + + + + + + | CREATININE | 2022-11-08 | [facility] | 0.9 | mg/dl | (missing) | | (MG/DL) IN | 11:31 | Health | | | | | SER/PLAS | | System - | | | | | | | [place] | | | | + + + + + + + | PROTEIN IN | 2022-11-08 | [facility] | 1 | (missing) | (missing) | | URINE BY | 11:31 | Health | | | | | TEST STRIP | | System - | | | | | | | [place] | | | | + + + + + + + | PROTEIN IN | 2022-11-08 | [facility] | 1 | (missing) | (missing) | | URINE BY | 11:31 | Health | | | | | TEST STRIP | | System - | | | | | | | [place] | | | | + + + + + + + | SPECIFIC | 2022-11-08 | [facility] | 1.019 | (missing) | (missing) | | GRAVITY OF | 11:31 | Health | | | | | URINE BY | | System - | | | | | AUTOMATED | | [place] | | | | | TEST STRIP | | | | | | + + + + + + + | SPECIFIC | 2022-11-08 | [facility] | 1.019 | (missing) | (missing) | | GRAVITY OF | 11:31 | Health | | | | | URINE BY | | System - | | | | | AUTOMATED | | [place] | | | | | TEST STRIP | | | | | | + + + + + + + | SALICYLATE | 2022-11-08 | [facility] | 1.2 | mg/dl | (missing) | | (MG/DL) IN | 31 | Health | | | | | SER/PLAS | | System - | | | | | | | [place] | | | | + + + + + + + | SALICYLATE | 2022-11-08 | [facility] | 1.2 | mg/dl | (missing) | | (MG/DL) IN | 31 | Health | | | | | SER/PLAS | | System - | | | | | | | [place] | | | | + + + + + + + | CHLORIDE | 2022-11-08 | [facility] | 106 | mmol/l | (missing) | | (MMOL/L) IN | 11:31 | Health | | | | | SER/PLAS | | System - | | | | | | | [place] | | | | + + + + + + + | CHLORIDE | 2022-11-08 | [facility] | 106 | mmol/l | (missing) | | (MMOL/L) IN | 11:31 | Health | | | | | SER/PLAS | | System - | | | | | | | [place] | | | | + + + + + + + | ERYTHROCYTE | 2022-11-08 | [facility] | 12.2 | % | (missing) | | | 11:31 | Health | | | | | DISTRIBUTION | | System - | | | | | WIDTH | | [place] | | | | | (RATIO) BY [...] | | | | WIDTH | | [place] | | | | | (RATIO) BY [...] | | | BLOOD BY | | [place] | | | | | AUTOMATED | [...] | | | BLOOD BY | | [place] | | | | | AUTOMATED | [...] | | | | | | | [place] | | | | + + + + + + + | SODIUM | 2022-11-08 | [facility] | 143 | mmol/l | (missing) | | (MMOL/L) IN | 11:31 | Health | | | | | SER/PLAS | | System - | | | | | | | [place] | | | | + + + + + + + | HEMOGLOBIN | 2022-11-08 | [facility] | 15.2 | g/dl | (missing) | | (G/DL) IN | 11:31 | Health | | | | | BLOOD | | System - | | | | | | | [place] | | | | + + + + + + + | HEMOGLOBIN | 2022-11-08 | [facility] | 15.2 | g/dl | (missing) | | (G/DL) IN | 11:31 | Health | | | | | BLOOD | | System - | | | | | | | [place] | | | | + + + + + + + | CARBON | 2022-11-08 | [facility] | 18 | mmol/l | (missing) | | DIOXIDE | 11:31 | Health | | | | | (CO2), TOTAL | | System - | | | | | (MMOL/L) IN | | [place] | | | | | SER/PLAS | | | | | | + + + + + + + | CARBON | 2022-11-08 | [facility] | 18 | mmol/l | (missing) | | DIOXIDE | 11:31 | Health | | | | | (CO2), TOTAL | | System - | | | | | (MMOL/L) IN | | [place] | | | | | SER/PLAS | | | | | | + + + + + + + | ANION GAP | 2022-11-08 | [facility] | 19.0 | mmol/l | (missing) | | IN SER/PLAS | 11:31 | Health | | | | | | | System - | | | | | | | [place] | | | | + + + + + + + | ANION GAP | 2022-11-08 | [facility] | 19.0 | mmol/l | (missing) | | IN SER/PLAS | 11:31 | Health | | | | | | | System - | | | | | | | [place] | | | | + + + + + + + | RBC (#/HPF) | 2022-11-08 | [facility] | 2 | /hpf | (missing) | | IN URINE | 11:31 | Health | | | | | SEDIMENT | | System - | | | | | | | [place] | | | | + + + + + + + | RBC (#/HPF) | 2022-11-08 | [facility] | 2 | /hpf | (missing) | | IN URINE | 11:31 | Health | | | | | SEDIMENT | | System - | | | | | | | [place] | | | | + + + + + + + | TSH | 2022-11-08 | [facility] | 2.95 | mciu/ml | (missing) | | (THYROTROPIN | 11:31 | Health | | | | | ) (UIU/ML) | | System - | | | | | IN SER/PLAS | | [place] | | | | + + + + + + + | TSH | 2022-11-08 | [facility] | 2.95 | mciu/ml | (missing) | | (THYROTROPIN | 11:31 | Health | | | | | ) (UIU/ML) | | System - | | | | | IN SER/PLAS | | [place] | | | | + + + + + + + | SQUAMOUS | 2022-11-08 | [facility] | 28 | /hpf | (missing) | | EPITHELIAL | 11:31 | Health | | | | | CELLS | | System - | | | | | (#/HPF) IN | | [place] | | | | | URINE | [...] | | | (#/HPF) IN | | [place] | | | | | URINE | [...] | | | | HEMOGLOBIN | | [place] | | | | | (PG) BY [...] | | | | HEMOGLOBIN | | [place] | | | | | (PG) BY [...] | | | | | | | [place] | | | | + + + + + + + | POTASSIUM | 2022-11-08 | [facility] | 3.7 | mmol/l | (missing) | | (MMOL/L) IN | 11:31 | Health | | | | | SER/PLAS | | System - | | | | | | | [place] | | | | + + + + + + + | | 2022-11-08 | [facility] | 30.1 | % | (missing) | | LYMPHOCYTES/ | 11:31 | Health | | | | | 100 | | System - | | | | | LEUKOCYTES | | [place] | | | | | IN BLOOD [...] | | | | LEUKOCYTES | | [place] | | | | | IN BLOOD [...] | | | | HEMOGLOBIN | | [place] | | | | | CONCENTRATIO | [...] | | | | HEMOGLOBIN | | [place] | | | | | CONCENTRATIO | [...] | | | (U/L) IN | | [place] | | | | | SER/PLAS | | | | | | + + + + + + + | ASPARTATE | 2022-11-08 | [facility] | 39 | u/l | (missing) | | AMINOTRANSFE | 11:31 | Health | | | | | RASE (SGOT) | | System - | | | | | (U/L) IN | | [place] | | | | | SER/PLAS | | | | | | + + + + + + + | LYMPHOCYTES | 2022-11-08 | [facility] | 4.2 | k/mcl | (missing) | | (10*3/UL) | 11:31 | Health | | | | | IN BLOOD BY | | System - | | | | | AUTOMATED | | [place] | | | | | COUNT | | | | | | + + + + + + + | LYMPHOCYTES | 2022-11-08 | [facility] | 4.2 | k/mcl | (missing) | | (10*3/UL) | 11:31 | Health | | | | | IN BLOOD BY | | System - | | | | | AUTOMATED | | [place] | | | | | COUNT | | | | | | + + + + + + + | ALBUMIN | 2022-11-08 | [facility] | 4.7 | g/dl | (missing) | | (G/DL) IN | 11:31 | Health | | | | | SER/PLAS | | System - | | | | | | | [place] | | | | + + + + + + + | ALBUMIN | 2022-11-08 | [facility] | 4.7 | g/dl | (missing) | | (G/DL) IN | 11:31 | Health | | | | | SER/PLAS | | System - | | | | | | | [place] | | | | + + + + + + + | PLATELETS | 2022-11-08 | [facility] | 409 | k/mcl | (missing) | | (10*3/UL) IN | 11:31 | Health | | | | | BLOOD | | System - | | | | | AUTOMATED | | [place] | | | | | COUNT | | | | | | + + + + + + + | PLATELETS | 2022-11-08 | [facility] | 409 | k/mcl | (missing) | | (10*3/UL) IN | 11:31 | Health | | | | | BLOOD | | System - | | | | | AUTOMATED | | [place] | | | | | COUNT | | | | | | + + + + + + + | HEMATOCRIT | 2022-11-08 | [facility] | 44.7 | % | (missing) | | (%) IN BLOOD | 11:31 | Health | | | | | BY | | System - | | | | | AUTOMATED | | [place] | | | | | COUNT | | | | | | + + + + + + + | HEMATOCRIT | 2022-11-08 | [facility] | 44.7 | % | (missing) | | (%) IN BLOOD | 11:31 | Health | | | | | BY | | System - | | | | | AUTOMATED | | [place] | | | | | COUNT | | | | | | + + + + + + + | | 2022-11-08 | [facility] | 5.13 | m/mcl | (missing) | | ERYTHROCYTES | 11:31 | Health | | | | | (10*6/UL) | | System - | | | | | IN BLOOD BY | | [place] | | | | | AUTOMATED | [...] | | IN BLOOD BY | | [place] | | | | | AUTOMATED | [...] | | | (U/L) IN | | [place] | | | | | SER/PLAS | | | | | | + + + + + + + | ALANINE | 2022-11-08 | [facility] | 57 | u/l | (missing) | | AMINOTRANSFE | 11:31 | Health | | | | | RASE (SGPT) | | System - | | | | | (U/L) IN | | [place] | | | | | SER/PLAS | | | | | | + + + + + + + | WBC | 2022-11-08 | [facility] | 6 | /hpf | (missing) | | (LEUKOCYTE) | 11:31 | Health | | | | | (#/HPF) IN | | System - | | | | | URINE | | [place] | | | | | SEDIMENT | | | | | | + + + + + + + | WBC | 2022-11-08 | [facility] | 6 | /hpf | (missing) | | (LEUKOCYTE) | 11:31 | Health | | | | | (#/HPF) IN | | System - | | | | | URINE | | [place] | | | | | SEDIMENT | | | | | | + + + + + + + | | 2022-11-08 | [facility] | 6.2 | % | (missing) | | MONOCYTES/10 | 11:31 | Health | | | | | 0 LEUKOCYTES | | System - | | | | | IN BLOOD BY | | [place] | | | | | AUTOMATED | [...] | | IN BLOOD BY | | [place] | | | | | AUTOMATED | [...] | | | | LEUKOCYTES | | [place] | | | | | IN BLOOD [...] | | | | LEUKOCYTES | | [place] | | | | | IN BLOOD [...] | | | | | | | [place] | | | | + + + + + + + | PROTEIN | 2022-11-08 | [facility] | 7.3 | g/dl | (missing) | | (G/DL) IN | 11:31 | Health | | | | | SER/PLAS | | System - | | | | | | | [place] | | | | + + + + + + + | BLOOD UREA | 2022-11-08 | [facility] | 8 | mg/dl | (missing) | | NITROGEN | 11:31 | Health | | | | | (BUN) | | System - | | | | | (MG/DL) IN | | [place] | | | | | SER/PLAS | | | | | | + + + + + + + | BLOOD UREA | 2022-11-08 | [facility] | 8 | mg/dl | (missing) | | NITROGEN | 11:31 | Health | | | | | (BUN) | | System - | | | | | (MG/DL) IN | | [place] | | | | | SER/PLAS | | | | | | + + + + + + + | PH OF URINE | 2022-11-08 | [facility] | 8.0 | (missing) | (missing) | | | 11:31 | Health | | | | | | | System - | | | | | | | [place] | | | | + + + + + + + | PH OF URINE | 2022-11-08 | [facility] | 8.0 | (missing) | (missing) | | | 11:31 | Health | | | | | | | System - | | | | | | | [place] | | | | + + + + + + + | NEUTROPHILS | 2022-11-08 | [facility] | 8.7 | k/mcl | (missing) | | (10*3/UL) | 11:31 | Health | | | | | IN BLOOD BY | | System - | | | | | AUTOMATED | | [place] | | | | | COUNT | | | | | | + + + + + + + | NEUTROPHILS | 2022-11-08 | [facility] | 8.7 | k/mcl | (missing) | | (10*3/UL) | 11:31 | Health | | | | | IN BLOOD BY | | System - | | | | | AUTOMATED | | [place] | | | | | COUNT | | | | | | + + + + + + + | ERYTHROCYTE | 2022-11-08 | [facility] | 87.1 | fl | (missing) | | MEAN | 11:31 | Health | | | | | CORPUSCULAR | | System - | | | | | VOLUME (FL) | | [place] | | | | | BY AUTOMATED [...] | | | VOLUME (FL) | | [place] | | | | | BY AUTOMATED [...] | | | | | | | [place] | | | | + + + + + + + | CALCIUM | 2022-11-08 | [facility] | 9.2 | mg/dl | (missing) | | (MG/DL) IN | 11:31 | Health | | | | | SER/PLAS | | System - | | | | | | | [place] | | | | + + + + + + + | PLATELET | 2022-11-08 | [facility] | 9.3 | fl | (missing) | | MEAN VOLUME | 11:31 | Health | | | | | (FL) IN | | System - | | | | | BLOOD BY | | [place] | | | | | AUTOMATED | [...] | | | BLOOD BY | | [place] | | | | | AUTOMATED | [...] | | | | SER/PLAS | | [place] | | | | + + + + + + + | ALKALINE | 2022-11-08 | [facility] | 90 | u/l | (missing) | | PHOSPHATASE | 11:31 | Health | | | | | (U/L) IN | | System - | | | | | SER/PLAS | | [place] | | | | + + + + + + + | GLUCOSE, | 2022-11-08 | [facility] | 99 | mg/dl | (missing) | | RANDOM | 11:31 | Health | | | | | (MG/DL) IN | | System - | | | | | SER/PLAS | | [place] | | | | + + + + + + + | GLUCOSE, | 2022-11-08 | [facility] | 99 | mg/dl | (missing) | | RANDOM | 11:31 | Health | | | | | (MG/DL) IN | | System - | | | | | SER/PLAS | | [place] | | | | + + + + + + + | CLARITY OF | 2022-11-08 | [facility] | Hazy | (missing) | (missing) | | URINE | 11:31 | Health | | | | | | | System - | | | | | | | [place] | | | | + + + + + + + | CLARITY OF | 2022-11-08 | [facility] | Hazy | (missing) | (missing) | | URINE | 11:31 | Health | | | | | | | System - | | | | | | | [place] | | | | + + + + + + + | | 2022-11-08 | [facility] | Negative | (missing) | (missing) | | BARBITURATES | 11:31 | Health | | | | | PRESENCE IN | | System - | | | | | URINE BY | | [place] | | | | | SCREEN | [...] | | | | (PRESENCE) | | [place] | | | | | IN URINE [...] | | | | URINE | | [place] | | | | + + + + + + + | COCAINE | 2022-11-08 | [facility] | Negative | (missing) | (missing) | | (PRESENCE) | 11:31 | Health | | | | | IN URINE BY | | System - | | | | | SCREEN | | [place] | | | | | METHOD | | | | | | + + + + + + + | GLUCOSE IN | 2022-11-08 | [facility] | Negative | (missing) | (missing) | | URINE | 11:31 | Health | | | | | | | System - | | | | | | | [place] | | | | + + + + + + + | HEMOGLOBIN | 2022-11-08 | [facility] | Negative | (missing) | (missing) | | PRESENCE IN | 11:31 | Health | | | | | URINE | | System - | | | | | | | [place] | | | | + + + + + + + | KETONES IN | 2022-11-08 | [facility] | Negative | (missing) | (missing) | | URINE | 11:31 | Health | | | | | | | System - | | | | | | | [place] | | | | + + + + + + + | METHADONE | 2022-11-08 | [facility] | Negative | (missing) | (missing) | | (PRESENCE) | 11:31 | Health | | | | | IN URINE BY | | System - | | | | | SCREEN | | [place] | | | | | METHOD | | | | | | + + + + + + + | NITRITE | 2022-11-08 | [facility] | Negative | (missing) | (missing) | | PRESENCE IN | 11:31 | Health | | | | | URINE | | System - | | | | | | | [place] | | | | + + + + + + + | OPIATES | 2022-11-08 | [facility] | Negative | (missing) | (missing) | | (PRESENCE) | 11:31 | Health | | | | | IN URINE BY | | System - | | | | | SCREEN | | [place] | | | | | METHOD | | | | | | + + + + + + + | OXYCODONE | 2022-11-08 | [facility] | Negative | (missing) | (missing) | | (PRESENCE) | 11:31 | Health | | | | | IN URINE BY | | System - | | | | | SCREEN | | [place] | | | | | METHOD | | | | | | + + + + + + + | | 2022-11-08 | [facility] | Negative | (missing) | (missing) | | PHENCYCLIDIN | 11:31 | Health | | | | | E (PRESENCE) | | System - | | | | | IN URINE BY | | [place] | | | | | SCREEN | | | | | | | METHOD | | | | | | + + + + + + + | THC | 2022-11-08 | [facility] | Negative | (missing) | (missing) | | (CANNABINOID | :31 | Health | | | | | ) IN URINE | | System - | | | | | BY SCREEN | | [place] | | | | | METHOD | | | | | | + + + + + + + | TRICYCLIC | 2022-11-08 | [facility] | Negative | (missing) | (missing) | | ANTIDEPRESSA | :31 | Health | | | | | NTS | | System - | | | | | (PRESENCE) | | [place] | | | | | IN URINE | | | | | | + + + + + + + | | 2022-11-08 | [facility] | Negative | (missing) | (missing) | | PHENCYCLIDIN | 11:31 | Health | | | | | E (PRESENCE) | | System - | | | | | IN URINE BY | | [place] | | | | | SCREEN | [...] | | | BY SCREEN | | [place] | | | | | METHOD | | | | | | + + + + + + + | OPIATES | 2022-11-08 | [facility] | Negative | (missing) | (missing) | | (PRESENCE) | 11:31 | Health | | | | | IN URINE BY | | System - | | | | | SCREEN | | [place] | | | | | METHOD | | | | | | + + + + + + + | TRICYCLIC | 2022-11-08 | [facility] | Negative | (missing) | (missing) | | ANTIDEPRESSA | 11:31 | Health | | | | | NTS | | System - | | | | | (PRESENCE) | | [place] | | | | | IN URINE | | | | | | + + + + + + + | AMPHETAMINE | 2022-11-08 | [facility] | Negative | (missing) | (missing) | | (PRESENCE) | 11:31 | Health | | | | | IN URINE BY | | System - | | | | | SCREEN | | [place] | | | | | METHOD | | | | | | + + + + + + + | OXYCODONE | 2022-11-08 | [facility] | Negative | (missing) | (missing) | | (PRESENCE) | 11:31 | Health | | | | | IN URINE BY | | System - | | | | | SCREEN | | [place] | | | | | METHOD | | | | | | + + + + + + + | BILIRUBIN, | 2022-11-08 | [facility] | Negative | (missing) | (missing) | | TOTAL | 11:31 | Health | | | | | PRESENCE IN | | System - | | | | | URINE | | [place] | | | | + + + + + + + | BHCG QUAL | 2022-11-08 | [facility] | Negative | (missing) | (missing) | | (CHORIOGONAD | 11:31 | Health | | | | | OTROPIN) IN | | System - | | | | | SER/PLAS | | [place] | | | | + + + + + + + | GLUCOSE IN | 2022-11-08 | [facility] | Negative | (missing) | (missing) | | URINE | 11:31 | Health | | | | | | | System - | | | | | | | [place] | | | | + + + + + + + | COCAINE | 2022-11-08 | [facility] | Negative | (missing) | (missing) | | (PRESENCE) | 11:31 | Health | | | | | IN URINE BY | | System - | | | | | SCREEN | | [place] | | | | | METHOD | | | | | | + + + + + + + | NITRITE | 2022-11-08 | [facility] | Negative | (missing) | (missing) | | PRESENCE IN | 11:31 | Health | | | | | URINE | | System - | | | | | | | [place] | | | | + + + + + + + | KETONES IN | 2022-11-08 | [facility] | Negative | (missing) | (missing) | | URINE | 11:31 | Health | | | | | | | System - | | | | | | | [place] | | | | + + + + + + + | | 2022-11-08 | [facility] | Negative | (missing) | (missing) | | BARBITURATES | :31 | Health | | | | | PRESENCE IN | | System - | | | | | URINE BY | | [place] | | | | | SCREEN | [...] | | | | (PRESENCE) | | [place] | | | | | IN URINE [...] | | | | SCREEN | | [place] | | | | | METHOD | | | | | | + + + + + + + | HEMOGLOBIN | 2022-11-08 | [facility] | Negative | (missing) | (missing) | | PRESENCE IN | 11:31 | Health | | | | | URINE | | System - | | | | | | | [place] | | | | + + + + + + + | BHCG QUAL | 2022-11-08 | [facility] | Negative | (missing) | (missing) | | (CHORIOGONAD | 11:31 | Health | | | | | OTROPIN) IN | | System - | | | | | SER/PLAS | | [place] | | | | + + + + + + + | AMPHETAMINE | 2022-11-08 | [facility] | Negative | (missing) | (missing) | | (PRESENCE) | 11:31 | Health | | | | | IN URINE BY | | System - | | | | | SCREEN | | [place] | | | | | METHOD | | | | | | + + + + + + + | | 2022-11-08 | [facility] | Normal | mg/dl | (missing) | | UROBILINOGEN | 11:31 | Health | | | | | (MG/DL) IN | | System - | | | | | URINE BY | | [place] | | | | | TEST STRIP | | | | | | + + + + + + + | | 2022-11-08 | [facility] | Normal | mg/dl | (missing) | | UROBILINOGEN | 11:31 | Health | | | | | (MG/DL) IN | | System - | | | | | URINE BY | | [place] | | | | | TEST STRIP | | | | | | + + + + + + + | | 2022-11-08 | [facility] | Presumptive | (missing) | (missing) | | METHAMPHETAM | 11:31 | Health | Positive | | | | INE | | System - | | | | | (PRESENCE) | | [place] | | | | | IN URINE [...] | | | | (PRESENCE) | | [place] | | | | | IN URINE [...] | | | URINE BY | | [place] | | | | | TEST STRIP | | | | | | + + + + + + + | MUCUS | 2022-11-08 | [facility] | Trace | (missing) | (missing) | | (#/HPF) IN | 11:31 | Health | | | | | URINE | | System - | | | | | SEDIMENT | | [place] | | | | + + + + + + + | MUCUS | 2022-11-08 | [facility] | Trace | (missing) | (missing) | | (#/HPF) IN | 11:31 | Health | | | | | URINE | | System - | | | | | SEDIMENT | | [place] | | | | + + + + + + + | LEUKOCYTE | 2022-11-08 | [facility] | Trace | (missing) | (missing) | | ESTERASE | 11:31 | Health | | | | | PRESENCE IN | | System - | | | | | URINE BY | | [place] | | | | | TEST STRIP | | | | | | + + + + + + + | BACTERIA | 2022-11-08 | [facility] | Trace | /hpf | (missing) | | (#/HPF) IN | 11:31 | Health | | | | | URINE | | System - | | | | | | | [place] | | | | + + + + + + + | BACTERIA | 2022-11-08 | [facility] | Trace | /hpf | (missing) | | (#/HPF) IN | 11:31 | Health | | | | | URINE | | System - | | | | | | | [place] | | | | + + + + + + + | COLOR OF | 2022-11-08 | [facility] | Yellow | (missing) | (missing) | | URINE | 11:31 | Health | | | | | | | System - | | | | | | | [place] | | | | + + + + + + + | COLOR OF | 2022-11-08 | [facility] | Yellow | (missing) | (missing) | | URINE | 11:31 | Health | | | | | | | System - | | | | | | | [place] | | | | + + + [...] | | | | | | | [place] | | | | + + + + + + + | BORDETELLA | 2022-11-08 | [facility] | Not | (missing) | (missing) | | PARAPERTUSSI | 11:32 | Health | Detected | | | | S | | System - | | | | | | | [place] | | | | + + + + + + + | BORDETELLA | 2022-11-08 | [facility] | Not | (missing) | (missing) | | PERTUSSIS | 11:32 | Health | Detected | | | | | | System - | | | | | | | [place] | | | | + + + + + + + | | 2022-11-08 | [facility] | Not | (missing) | (missing) | | CHLAMYDOPHIL | 11:32 | Health | Detected | | | | A PNEUMONIAE | | System - | | | | | | | [place] | | | | + + + + + + + | CORONAVIRUS | 2022-11-08 | [facility] | Not | (missing) | (missing) | | 229E | 11:32 | Health | Detected | | | | | | System - | | | | | | | [place] | | | | + + + + + + + | CORONAVIRUS | 2022-11-08 | [facility] | Not | (missing) | (missing) | | HKU1 | 11:32 | Health | Detected | | | | | | System - | | | | | | | [place] | | | | + + + + + + + | CORONAVIRUS | 2022-11-08 | [facility] | Not | (missing) | (missing) | | NL63 | 11:32 | Health | Detected | | | | | | System - | | | | | | | [place] | | | | + + + + + + + | CORONAVIRUS | 2022-11-08 | [facility] | Not | (missing) | (missing) | | OC43 | 11:32 | Health | Detected | | | | | | System - | | | | | | | [place] | | | | + + + + + + + | INFLUENZA A | 2022-11-08 | [facility] | Not | (missing) | (missing) | | | 11:32 | Health | Detected | | | | | | System - | | | | | | | [place] | | | | + + + + + + + | INFLUENZA B | 2022-11-08 | [facility] | Not | (missing) | (missing) | | | 11:32 | Health | Detected | | | | | | System - | | | | | | | [place] | | | | + + + + + + + | | 2022-11-08 | [facility] | Not | (missing) | (missing) | | METAPNEUMOVI | 11:32 | Health | Detected | | | | KELVIN | | System - | | | | | | | [place] | | | | + + + + + + + | MYCOPLASMA | 2022-11-08 | [facility] | Not | (missing) | (missing) | | PNEUMONIAE | 11:32 | Health | Detected | | | | PCR | | System - | | | | | | | [place] | | | | + + + + + + + | | 2022-11-08 | [facility] | Not | (missing) | (missing) | | PARAINFLUENZ | 11:32 | Health | Detected | | | | A 1 | | System - | | | | | | | [place] | | | | + + + + + + + | | 2022-11-08 | [facility] | Not | (missing) | (missing) | | PARAINFLUENZ | 11:32 | Health | Detected | | | | A 2 | | System - | | | | | | | [place] | | | | + + + + + + + | | 2022-11-08 | [facility] | Not | (missing) | (missing) | | PARAINFLUENZ | 11:32 | Health | Detected | | | | A 3 | | System - | | | | | | | [place] | | | | + + + + + + + | | 2022-11-08 | [facility] | Not | (missing) | (missing) | | PARAINFLUENZ | 11:32 | Health | Detected | | | | A 4 | | System - | | | | | | | [place] | | | | + + + + + + + | | 2022-11-08 | [facility] | Not | (missing) | (missing) | | RHINOVIRUS/E | 11:32 | Health | Detected | | | | NTEROVIRUS | | System - | | | | | | | [place] | | | | + + + + + + + | RSV | 2022-11-08 | [facility] | Not | (missing) | (missing) | | | 11:32 | Health | Detected | | | | | | System - | | | | | | | [place] | | | | + + + + + + + | SARS-COV-2 | 2022-11-08 | [facility] | Not | (missing) | (missing) | | (COVID19) | 11:32 | Health | Detected | | | | BIOFIRE PCR | | System - | | | | | | | [place] | | | | + + + + + + + | RSV | 2022-11-08 | [facility] | Not | (missing) | (missing) | | | 11:32 | Health | Detected | | | | | | System - | | | | | | | [place] | | | | + + + + + + + | ADENOVIRUS | 2022-11-08 | [facility] | Not | (missing) | (missing) | | DETECTION BY | 11:32 | Health | Detected | | | | PCR | | System - | | | | | | | [place] | | | | + + + + + + + | CORONAVIRUS | 2022-11-08 | [facility] | Not | (missing) | (missing) | | HKU1 | 11:32 | Health | Detected | | | | | | System - | | | | | | | [place] | | | | + + + + + + + | CORONAVIRUS | 2022-11-08 | [facility] | Not | (missing) | (missing) | | NL63 | 11:32 | Health | Detected | | | | | | System - | | | | | | | [place] | | | | + + + + + + + | CORONAVIRUS | 2022-11-08 | [facility] | Not | (missing) | (missing) | | 229E | 11:32 | Health | Detected | | | | | | System - | | | | | | | [place] | | | | + + + + + + + | CORONAVIRUS | 2022-11-08 | [facility] | Not | (missing) | (missing) | | OC43 | 11:32 | Health | Detected | | | | | | System - | | | | | | | [place] | | | | + + + + + + + | | 2022-11-08 | [facility] | Not | (missing) | (missing) | | METAPNEUMOVI | 11:32 | Health | Detected | | | | KELVIN | | System - | | | | | | | [place] | | | | + + + + + + + | INFLUENZA A | 2022-11-08 | [facility] | Not | (missing) | (missing) | | | 11:32 | Health | Detected | | | | | | System - | | | | | | | [place] | | | | + + + + + + + | INFLUENZA B | 2022-11-08 | [facility] | Not | (missing) | (missing) | | | 11:32 | Health | Detected | | | | | | System - | | | | | | | [place] | | | | + + + + + + + | | 2022-11-08 | [facility] | Not | (missing) | (missing) | | PARAINFLUENZ | 11:32 | Health | Detected | | | | A 1 | | System - | | | | | | | [place] | | | | + + + + + + + | | 2022-11-08 | [facility] | Not | (missing) | (missing) | | PARAINFLUENZ | 11:32 | Health | Detected | | | | A 2 | | System - | | | | | | | [place] | | | | + + + + + + + | | 2022-11-08 | [facility] | Not | (missing) | (missing) | | PARAINFLUENZ | 11:32 | Health | Detected | | | | A 3 | | System - | | | | | | | [place] | | | | + + + + + + + | | 2022-11-08 | [facility] | Not | (missing) | (missing) | | PARAINFLUENZ | 11:32 | Health | Detected | | | | A 4 | | System - | | | | | | | [place] | | | | + + + + + + + | | 2022-11-08 | [facility] | Not | (missing) | (missing) | | RHINOVIRUS/E | 11:32 | Health | Detected | | | | NTEROVIRUS | | System - | | | | | | | [place] | | | | + + + + + + + | MYCOPLASMA | 2022-11-08 | [facility] | Not | (missing) | (missing) | | PNEUMONIAE | 11:32 | Health | Detected | | | | PCR | | System - | | | | | | | [place] | | | | + + + + + + + | | 2022-11-08 | [facility] | Not | (missing) | (missing) | | CHLAMYDOPHIL | 11:32 | Health | Detected | | | | A PNEUMONIAE | | System - | | | | | | | [place] | | | | + + + + + + + | BORDETELLA | 2022-11-08 | [facility] | Not | (missing) | (missing) | | PERTUSSIS | 11:32 | Health | Detected | | | | | | System - | | | | | | | [place] | | | | + + + + + + + | BORDETELLA | 2022-11-08 | [facility] | Not | (missing) | (missing) | | PARAPERTUSSI | 11:32 | Health | Detected | | | | S | | System - | | | | | | | [place] | | | | + + + + + + + | SARS-COV-2 | 2022-11-08 | [facility] | Not | (missing) | (missing) | | (COVID19) | 11:32 | Health | Detected | | | | BIOFIRE PCR | | System - | | | | | | | [place] | | | | + + + + + + + + + | Result panel 89 | + + + + + + + + + | | 2022-11-17 | [facility] | (missing) | (missing) | (missing) | | (unavailable | 08:41 | Health | | | | | ) | | System - | | | | | | | [place] | | | | + + + + + + + | | 2022-11-17 | [facility] | BONES: | (missing) | (missing) | | (unavailable | 08:41 | Health | Normal. | | | | ) | | System - | | | | | | | [place] | | | | + + + + + + + | | 2022-11-17 | [facility] | COMPARISON: | (missing) | (missing) | | (unavailable | 08:41 | Health | 09/15/2022 | | | | ) | | System - | and | | | | | | [place] | 09/22/2022. | | | + + + + + + + | | 2022-11-17 | [facility] | Electronical | (missing) | (missing) | | (unavailable | 08:41 | Health | ly signed | | | | ) | | System - | by: Hira | | | | | | [place] | MD Jennie | | | | | | | on 11/17/2022 | | | | | | | 4:26 PM at | | | | | | | workstation | | | | | | | [id number] | | | + + + + + + + | | 2022-11-17 | [facility] | FINDINGS: | (missing) | (missing) | | (unavailable | 08:41 | Health | | | | | ) | | System - | | | | | | | [place] | | | | + + + + + + + | | 2022-11-17 | [facility] | HEART: | (missing) | (missing) | | (unavailable | 08:41 | Health | Normal in | | | | ) | | System - | size and | | | | | | [place] | appearance. | | | + + + + + + + | | 2022-11-17 | [facility] | INDICATIONS: | (missing) | (missing) | | (unavailable | 08:41 | Health | Evaluate | | | | ) | | System - | for TB. | | | | | | [place] | Asymptomatic | | | | | [...] focal | | | | | | [place] | consolidatio | | | | | [...] mediastinal | | | | | | [place] | contours | | | | | [...] of | | | | | | [place] | acute | | | | | [...] pleural | | | | | | [place] | effusion or | | | | [...] VIEWS | | | | | | [place] | | | | + + + + + + + | | 2022-11-17 | [facility] | | (missing) | (missing) | | (unavailable | 08:41 | Health | Procedure(s) | | | | ) | | System - | : * No | | | | | | [place] | procedures | | | | | | | listed * | | | + + + + + + + Social History + + + + | date | description | facility | + + + + | 2020-06-24 17:42 | (unavailable) | [facility] - | | | | [place] | + + + + | 2020-11-07 14:59 | (unavailable) | [facility] - | | | | [place] | + + + + | 2020-06-28 00:00 | Unknown if ever smoked | [facility] | | | | [facility] | + + + + | 2020-06-29 00:00 | Unknown if ever smoked | [facility] | | | | [facility] | + + + + | 2020-07-04 00:00 | Unknown if ever smoked | [facility] | | | | [facility] | | | | Clinic | + + + + | 2020-07-05 00:00 | Unknown if ever smoked | [facility] | | | | [facility] | | | | Clinic | + + + + | 2020-07-06 00:00 | Unknown if ever smoked | (unavailable) | + + + + | 2020-07-08 00:00 | Current some day smoker | [facility] | | | | [facility] | + + + + | 2020-07-11 00:00 | Unknown if ever smoked | [facility] | | | | [facility] | + + + + | 2020-07-12 00:00 | Unknown if ever smoked | (unavailable) | + + + + | 2020-07-12 00:00 | Unknown if ever smoked | [facility] | | | | [facility] | + + + + | 2021-04-26 00:00 | Tobacco smoking | [facility] | | | consumption unknown | [facility] | | | | Clinic | + + + + | 2021-05-23 00:00 | Tobacco smoking | [facility] | | | consumption unknown | [facility] | + + + + | 2021-05-24 00:00 | Tobacco smoking | [facility] | | | consumption unknown | [facility] | + + + + | 2021-05-25 00:00 | Tobacco smoking | [facility] | | | consumption unknown | [facility] | + + + + | 2021-08-03 00:00 | Tobacco smoking | [facility] | | | consumption unknown | [facility] | + + + + | 2021-08-04 00:00 | Tobacco smoking | [facility] | | | consumption unknown | [facility] | | | | Clinic | + + + + | 2021-08-09 00:00 | Tobacco smoking | [facility] | | | consumption unknown | [facility] | + + + + | 2021-08-16 00:00 | Tobacco smoking | [facility] | | | consumption unknown | [facility] | | | | Clinic | + + + + | 2021-08-30 00:00 | Tobacco smoking | [facility] | | | consumption unknown | [facility] | | | | Clinic | + + + + | 2021-09-29 00:00 | Tobacco smoking | [facility] | | | consumption unknown | [facility] | + + + + | 2021-10-02 00:00 | Tobacco smoking | [facility] | | | consumption unknown | [facility] | + + + + | 2021-10-03 00:00 | Tobacco smoking | [facility] | | | consumption unknown | [facility] | + + + + | 2021-10-06 00:00 | Tobacco smoking | [facility] | | | consumption unknown | [facility] | + + + + | 2021-10-29 00:00 | Tobacco smoking | [facility] | | | consumption unknown | [facility] | + + + + | 2021-11-02 00:00 | Tobacco smoking | [facility] | | | consumption unknown | [facility] | | | | Clinic | + + + + | 2021-11-05 00:00 | Tobacco smoking | [facility] | | | consumption unknown | [facility] | | | | Clinic | + + + + | 2021-11-08 00:00 | Tobacco smoking | [facility] | | | consumption unknown | [facility] | + + + + | 2021-11-12 00:00 | Tobacco smoking | [facility] | | | consumption unknown | [facility] | | | | Clinic | + + + + | 2021-11-12 00:00 | Tobacco smoking | [facility] | | | consumption unknown | [facility] | + + + + | 2021-11-12 00:00 | Occasional tobacco smoker | [facility] | | | | [place] | + + + + | 2021-11-13 00:00 | Tobacco smoking | [facility] | | | consumption unknown | [facility] | | | | Clinic | + + + + | 2021-11-13 00:00 | Tobacco smoking | [facility] | | | consumption unknown | [facility] | + + + + | 2021-11-14 00:00 | Tobacco smoking | [facility] | | | consumption unknown | [facility] | | | | Clinic | + + + + | 2021-11-15 00:00 | Tobacco smoking | [facility] | | | consumption unknown | [facility] | + + + + | 2021-11-16 00:00 | Tobacco smoking | [facility] | | | consumption unknown | [facility] | | | | Clinic | + + + + | 2021-11-16 00:00 | Tobacco smoking | [facility] | | | consumption unknown | [facility] | + + + + | 2021-11-19 00:00 | Tobacco smoking | [facility] | | | consumption unknown | [facility] | | | | Clinic | + + + + | 2021-11-19 00:00 | Tobacco smoking | [facility] | | | consumption unknown | [facility] | + + + + | 2021-11-20 00:00 | Occasional tobacco smoker | [facility] | | | | [place] | + + + + | 2021-11-21 00:00 | Tobacco smoking | [facility] | | | consumption unknown | [facility] | | | | Clinic | + + + + | 2021-11-22 00:00 | Tobacco smoking | [facility] | | | consumption unknown | [facility] | | | | Clinic | + + + + | 2021-11-23 00:00 | Tobacco smoking | [facility] | | | consumption unknown | [facility] | | | | Clinic | + + + + | 2021-11-26 00:00 | Tobacco smoking | [facility] | | | consumption unknown | [facility] | | | | Clinic | + + + + | 2021-11-27 00:00 | Tobacco smoking | [facility] | | | consumption unknown | [facility] | | | | Clinic | + + + + | 2021-11-30 00:00 | Tobacco smoking | [facility] | | | consumption unknown | [facility] | | | | Clinic | + + + + | 2021-12-01 00:00 | Tobacco smoking | [facility] | | | consumption unknown | [facility] | + + + + | 2021-12-04 00:00 | Tobacco smoking | [facility] | | | consumption unknown | [facility] | | | | Clinic | + + + + | 2021-12-04 00:00 | Tobacco smoking | [facility] | | | consumption unknown | [facility] | + + + + | 2021-12-05 00:00 | Tobacco smoking | [facility] | | | consumption unknown | [facility] | | | | Clinic | + + + + | 2021-12-05 00:00 | Tobacco smoking | [facility] | | | consumption unknown | [facility] | + + + + | 2021-12-06 00:00 | Tobacco smoking | [facility] | | | consumption unknown | [facility] | | | | Clinic | + + + + | 2021-12-06 00:00 | Tobacco smoking | [facility] | | | consumption unknown | [facility] | + + + + | 2021-12-07 00:00 | Tobacco smoking | [facility] | | | consumption unknown | [facility] | | | | Clinic | + + + + | 2021-12-10 00:00 | Tobacco smoking | [facility] | | | consumption unknown | [facility] | | | | Clinic | + + + + | 2021-12-18 00:00 | Tobacco smoking | [facility] | | | consumption unknown | [facility] | | | | Clinic | + + + + | 2021-12-21 00:00 | Tobacco smoking | [facility] | | | consumption unknown | [facility] | | | | Clinic | + + + + | 2021-12-24 00:00 | Tobacco smoking | [facility] | | | consumption unknown | [facility] | | | | Clinic | + + + + | 2021-12-25 00:00 | Tobacco smoking | [facility] | | | consumption unknown | [facility] | + + + + | 2021-12-26 00:00 | Tobacco smoking | [facility] | | | consumption unknown | [facility] | + + + + | 2022-01-02 00:00 | Tobacco smoking | [facility] | | | consumption unknown | [facility] | | | | Clinic | + + + + | 2022-01-04 00:00 | Tobacco smoking | [facility] | | | consumption unknown | [facility] | | | | Clinic | + + + + | 2022-01-18 00:00 | Tobacco smoking | [facility] | | | consumption unknown | [facility] | | | | Clinic | + + + + | 2022-01-21 00:00 | Tobacco smoking | [facility] | | | consumption unknown | [facility] | + + + + | 2022-01-23 00:00 | Tobacco smoking | [facility] | | | consumption unknown | [facility] | | | | Clinic | + + + + | 2022-01-23 00:00 | Tobacco smoking | [facility] | | | consumption unknown | [facility] | + + + + | 2022-01-24 00:00 | Tobacco smoking | [facility] | | | consumption unknown | [facility] | | | | Clinic | + + + + | 2022-01-28 00:00 | Tobacco smoking | [facility] | | | consumption unknown | [facility] | | | | Clinic | + + + + | 2022-01-29 00:00 | Tobacco smoking | [facility] | | | consumption unknown | [facility] | + + + + | 2022-01-31 00:00 | Tobacco smoking | [facility] | | | consumption unknown | [facility] | | | | Clinic | + + + + | 2022-02-01 00:00 | Tobacco smoking | [facility] | | | consumption unknown | [facility] | + + + + | 2022-02-04 00:00 | Tobacco smoking | [facility] | | | consumption unknown | [facility] | | | | Clinic | + + + + | 2022-02-04 00:00 | Tobacco smoking | [facility] | | | consumption unknown | [facility] | + + + + | 2022-02-05 00:00 | Tobacco smoking | [facility] | | | consumption unknown | [facility] | | | | Clinic | + + + + | 2022-02-06 00:00 | Tobacco smoking | [facility] | | | consumption unknown | [facility] | | | | Clinic | + + + + | 2022-02-08 00:00 | Tobacco smoking | [facility] | | | consumption unknown | [facility] | | | | Clinic | + + + + | 2022-02-11 00:00 | Tobacco smoking | [facility] | | | consumption unknown | [facility] | + + + + | 2022-02-15 00:00 | Tobacco smoking | [facility] | | | consumption unknown | [facility] | | | | Clinic | + + + + | 2022-03-05 00:00 | Tobacco smoking | [facility] | | | consumption unknown | [facility] | | | | Clinic | + + + + | 2022-03-12 00:00 | Tobacco smoking | [facility] | | | consumption unknown | [facility] | | | | Clinic | + + + + | 2022-03-13 00:00 | Tobacco smoking | [facility] | | | consumption [facility] | [facility] | | | | Clinic | + + + + | 2022-03-15 00:00 | Tobacco smoking | [facility] | | | consumption unknown | [facility] | | | | Clinic | + + + + | 2022-03-21 00:00 | Tobacco smoking | [facility] | | | consumption unknown | [facility] | | | | Clinic | + + + + | 2022-03-25 00:00 | Tobacco smoking | [facility] | | | consumption unknown | [facility] | | | | Clinic | + + + + | 2022-03-26 00:00 | Tobacco smoking | [facility] | | | consumption unknown | [facility] | | | | Clinic | + + + + | 2022-03-27 00:00 | Tobacco smoking | [facility] | | | consumption unknown | [facility] | | | | Clinic | + + + + | 2022-03-28 00:00 | Tobacco smoking | [facility] | | | consumption unknown | [facility] | | | | Clinic | + + + + | 2022-04-03 00:00 | Tobacco smoking | [facility] | | | consumption unknown | [facility] | | | | Clinic | + + + + | 2022-04-04 00:00 | Tobacco smoking | [facility] | | | consumption unknown | [facility] | | | | Clinic | + + + + | 2022-04-11 00:00 | Tobacco smoking | [facility] | | | consumption unknown | [facility] | | | | Clinic | + + + + | 2022-04-16 00:00 | Tobacco smoking | [facility] | | | consumption unknown | [facility] | | | | Clinic | + + + + | 2022-04-17 00:00 | Tobacco smoking | [facility] | | | consumption unknown | [facility] | | | | Clinic | + + + + | 2022-04-25 00:00 | Tobacco smoking | [facility] | | | consumption unknown | [facility] | | | | Clinic | + + + + | 2022-04-25 00:00 | Tobacco smoking | [facility] | | | consumption unknown | [facility] | + + + + | 2022-04-26 00:00 | Tobacco smoking | [facility] | | | consumption unknown | [facility] | | | | Clinic | + + + + | 2022-04-30 00:00 | Tobacco smoking | [facility] | | | consumption unknown | [facility] | + + + + | 2022-05-01 00:00 | Tobacco smoking | [facility] | | | consumption unknown | [facility] | | | | Clinic | + + + + | 2022-05-10 00:00 | Tobacco smoking | [facility] | | | consumption unknown | [facility] | | | | Clinic | + + + + | 2022-05-17 00:00 | Tobacco smoking | [facility] | | | consumption unknown | [facility] | | | | Clinic | + + + + | 2022-05-19 00:00 | Tobacco smoking | [facility] | | | consumption unknown | [facility] | + + + + | 2022-05-20 00:00 | Tobacco smoking | [facility] | | | consumption unknown | [facility] | | | | Clinic | + + + + | 2022-05-24 00:00 | Tobacco smoking | [facility] | | | consumption unknown | [facility] | | | | Clinic | + + + + | 2022-05-31 00:00 | Tobacco smoking | [facility] | | | consumption unknown | [facility] | | | | Clinic | + + + + | 2022-06-03 00:00 | Tobacco smoking | [facility] | | | consumption unknown | Dental | + + + + | 2022-06-04 00:00 | Current smoker | [facility] | | | | [facility] | | | | Clinic | + + + + | 2022-06-04 00:00 | Ex-smoker | [facility] | | | | 1 | + + + + | 2022-06-04 00:00 | Ex-smoker | [facility] | | | | [facility] | | | | Clinic | + + + + | 2022-06-04 00:00 | Ex-smoker | [facility] | | | | [facility] | | | | Clinic | + + + + | 2022-06-04 00:00 | Ex-smoker | [facility] | | | | [facility] | + + + + | 2022-06-04 00:00 | Ex-smoker | [facility] | + + + + | 2022-06-04 00:00 | Ex-smoker | [facility] | | | | [facility] | + + + + | 2022-06-04 00:00 | Ex-smoker | [facility] | | | | [facility] | | | | Clinic | + + + + | 2022-06-04 00:00 | Ex-smoker | [facility] | | | | [facility] [place] | | | | [facility] | + + + + | 2022-06-04 00:00 | Ex-smoker | [facility] | | | | [facility] | + + + + | 2022-06-10 00:00 | Current smoker | [facility] | | | | [facility] | | | | Clinic | + + + + | 2022-06-11 00:00 | Current smoker | [facility] | | | | [facility] | | | | Clinic | + + + + | 2022-06-12 00:00 | Current smoker | [facility] | | | | [facility] | | | | Clinic | + + + + | 2022-06-13 00:00 | Current smoker | [facility] | | | | [facility] | | | | Clinic | + + + + | 2022-06-13 00:00 | Current smoker | [facility] | + + + + | 2022-06-14 00:00 | Current smoker | [facility] | | | | [facility] | + + + + | 2022-06-17 00:00 | Current smoker | [facility] | | | | [facility] | | | | Clinic | + + + + | 2022-06-18 00:00 | Current smoker | [facility] | | | | [facility] | | | | Clinic | + + + + | 2022-06-18 00:00 | Current smoker | [facility] | | | | [facility] | + + + + | 2022-06-19 00:00 | Current smoker | [facility] | | | | [facility] | | | | Clinic | + + + + | 2022-06-20 00:00 | Current smoker | [facility] | | | | [facility] | | | | Clinic | + + + + | 2022-06-21 00:00 | Current smoker | [facility] | | | | [facility] | | | | Clinic | + + + + | 2022-06-25 00:00 | Current smoker | [facility] | | | | [facility] | | | | Clinic | + + + + | 2022-06-26 00:00 | Current smoker | [facility] | | | | [facility] | | | | Clinic | + + + + | 2022-06-27 00:00 | Current smoker | [facility] | | | | [facility] | | | | Clinic | + + + + | 2022-06-28 00:00 | Current smoker | [facility] | | | | [facility] | | | | Clinic | + + + + | 2022-07-01 00:00 | Current smoker | [facility] | | | | [facility] | | | | Clinic | + + + + | 2022-07-02 00:00 | Current smoker | [facility] | | | | [facility] | | | | Clinic | + + + + | 2022-07-03 00:00 | Current smoker | [facility] | | | | [facility] | | | | Clinic | + + + + | 2022-07-04 00:00 | Current smoker | [facility] | | | | [facility] | | | | Clinic | + + + + | 2022-07-05 00:00 | Current smoker | [facility] | | | | [facility] | | | | Clinic | + + + + | 2022-07-08 00:00 | Current smoker | [facility] | | | | [facility] | | | | Clinic | + + + + | 2022-07-10 00:00 | Current smoker | [facility] | | | | [facility] | | | | Clinic | + + + + | 2022-07-18 00:00 | Current smoker | [facility] | | | | [facility] | | | | Clinic | + + + + | 2022-07-19 00:00 | Current smoker | [facility] | + + + + | 2022-07-22 00:00 | Current smoker | [facility] | | | | [facility] | | | | Clinic | + + + + | 2022-07-23 00:00 | Current smoker | [facility] | | | | [facility] | + + + + | 2022-07-24 00:00 | Current smoker | [facility] | | | | [facility] | | | | Clinic | + + + + | 2022-07-25 00:00 | Current smoker | [facility] | | | | [facility] | | | | Clinic | + + + + | 2022-07-26 00:00 | Current smoker | [facility] | | | | 1 | + + + + | 2022-07-26 00:00 | Current smoker | [facility] | | | | [facility] | | | | Clinic | + + + + | 2022-07-26 00:00 | Current smoker | [facility] | | | | [facility] | + + + + | 2022-07-29 00:00 | Current smoker | [facility] | | | | [facility] | | | | Clinic | + + + + | 2022-07-29 00:00 | Current smoker | [facility] | | | | [facility] | + + + + | 2022-07-29 00:00 | Current smoker | [facility] | | | | [facility] | | | | Clinic | + + + + | 2022-07-29 00:00 | Current smoker | [facility] | | | | [facility] | + + + + | 2022-07-30 00:00 | Current smoker | [facility] | | | | [facility] | | | | Clinic | + + + + | 2022-07-30 00:00 | Current smoker | [facility] | | | | [facility] | | | | Clinic | + + + + | 2022-07-31 00:00 | Current smoker | [facility] | | | | [facility] | | | | Clinic | + + + + | 2022-07-31 00:00 | Current smoker | [facility] | | | | [facility] | | | | [facility] | + + + + | 2022-08-01 00:00 | Current smoker | [facility] | + + + + | 2022-08-02 00:00 | Current smoker | [facility] | | | | [facility] | | | | Clinic | + + + + | 2022-08-02 00:00 | Current smoker | [facility] | | | | [facility] | | | | [facility] | + + + + | 2022-08-03 00:00 | Current smoker | [facility] | | | | [facility] | + + + + | 2022-08-05 00:00 | Current smoker | [facility] | | | | [facility] | | | | Clinic | + + + + | 2022-08-06 00:00 | Current smoker | [facility] | | | | [facility] | | | | Clinic | + + + + | 2022-08-07 00:00 | Current smoker | [facility] | | | | [facility] | | | | Clinic | + + + + | 2022-08-08 00:00 | Smokes tobacco daily | [facility] | | | | [facility] | | | | Clinic | + + + + | 2022-08-08 00:00 | Smokes tobacco daily | [facility] | | | | [facility] | + + + + | 2022-08-08 00:00 | Smokes tobacco daily | [facility] | + + + + | 2022-08-08 00:00 | Smokes tobacco daily | [facility] | | | | [facility] | | | | Clinic | + + + + | 2022-08-08 00:00 | Current smoker | [facility] | | | | [facility] | | | | Clinic | + + + + | 2022-08-12 00:00 | Smokes tobacco daily | [facility] | | | | [facility] | | | | Clinic | + + + + | 2022-08-13 00:00 | Smokes tobacco daily | [facility] | | | | [facility] | | | | Clinic | + + + + | 2022-08-14 00:00 | Smokes tobacco daily | [facility] | | | | [facility] | | | | Clinic | + + + + | 2022-08-15 00:00 | Smokes tobacco daily | [facility] | | | | [facility] | | | | Clinic | + + + + | 2022-08-16 00:00 | Smokes tobacco daily | [facility] | | | | [facility] | | | | Clinic | + + + + | 2022-08-19 00:00 | Smokes tobacco daily | [facility] | | | | [facility] | | | | Clinic | + + + + | 2022-08-20 00:00 | Smokes tobacco daily | [facility] | | | | [facility] | | | | Clinic | + + + + | 2022-08-21 00:00 | Smokes tobacco daily | [facility] | | | | [facility] | | | | Clinic | + + + + | 2022-08-23 00:00 | Smokes tobacco daily | [facility] | | | | [facility] | + + + + | 2022-08-26 00:00 | Smokes tobacco daily | [facility] | | | | [facility] | | | | Clinic | + + + + | 2022-08-26 00:00 | Smokes tobacco daily | [facility] | + + + + | 2022-08-28 00:00 | Smokes tobacco daily | [facility] | | | | [facility] | | | | Clinic | + + + + | 2022-08-28 00:00 | Smokes tobacco daily | [facility] | | | | [facility] | + + + + | 2022-08-30 00:00 | Smokes tobacco daily | [facility] | | | | [facility] | | | | Clinic | + + + + | 2022-09-02 00:00 | Smokes tobacco daily | [facility] | | | | [facility] | | | | Clinic | + + + + | 2022-09-04 00:00 | Smokes tobacco daily | [facility] | + + + + | 2022-09-06 00:00 | Smokes tobacco daily | [facility] | + + + + | 2022-09-07 00:00 | Smokes tobacco daily | [facility] | | | | [facility] | | | | Clinic | + + + + | 2022-09-10 00:00 | Current smoker | [facility] | | | | [facility] | | | | Clinic | + + + + | 2022-09-10 00:00 | Ex-smoker | [facility] | | | | 1 | + + + + | 2022-09-10 00:00 | Ex-smoker | [facility] | | | | [facility] | | | | Clinic | + + + + | 2022-09-10 00:00 | Ex-smoker | [facility] | + + + + | 2022-09-11 00:00 | Current smoker | [facility] | | | | [facility] | | | | Clinic | + + + + | 2022-09-12 00:00 | Current smoker | [facility] | | | | [facility] | | | | Clinic | + + + + | 2022-09-12 00:00 | Current smoker | [facility] | + + + + | 2022-09-13 00:00 | Current smoker | [facility] | | | | [facility] | | | | Clinic | + + + + | 2022-09-16 00:00 | Current smoker | [facility] | | | | [facility] | | | | Clinic | + + + + | 2022-09-18 00:00 | Current smoker | [facility] | | | | [facility] | | | | Clinic | + + + + | 2022-09-19 00:00 | Current smoker | [facility] | | | | [facility] | | | | Clinic | + + + + | 2022-09-27 00:00 | Current smoker | [facility] | + + + + | 2022-10-01 00:00 | Current smoker | [facility] | | | | 1 | + + + + | 2022-10-01 00:00 | Current smoker | [facility] | | | | [facility] | | | | Clinic | + + + + | 2022-10-03 00:00 | Current smoker | [facility] | | | | [facility] | | | | Clinic | + + + + | 2022-10-04 00:00 | Current smoker | [facility] | | | | [facility] | | | | Clinic | + + + + | 2022-10-04 00:00 | Current smoker | [facility] | + + + + | 2022-10-07 00:00 | Current smoker | [facility] | | | | [facility] | | | | Clinic | + + + + | 2022-10-08 00:00 | Occasional tobacco smoker | [facility] | | | | [facility] | | | | Clinic | + + + + | 2022-10-08 00:00 | Occasional tobacco smoker | [facility] | | | | [facility] | | | | Clinic | + + + + | 2022-10-08 00:00 | Occasional tobacco smoker | [facility] | | | | [facility] | + + + + | 2022-10-08 00:00 | Occasional tobacco smoker | [facility] | + + + + | 2022-10-08 00:00 | Occasional tobacco smoker | [facility] | | | | [facility] | | | | [facility] | + + + + | 2022-10-08 00:00 | Occasional tobacco smoker | [facility] | | | | [facility] | | | | Clinic | + + + + | 2022-10-08 00:00 | Occasional tobacco smoker | [facility] | + + + + | 2022-10-09 00:00 | Occasional tobacco smoker | [facility] | | | | [facility] | | | | Clinic | + + + + | 2022-10-10 00:00 | Occasional tobacco smoker | [facility] | | | | [facility] | | | | Clinic | + + + + | 2022-10-11 00:00 | Occasional tobacco smoker | [facility] | | | | [facility] | | | | Clinic | + + + + | 2022-10-11 00:00 | Occasional tobacco smoker | [facility] | | | | [facility] | + + + + | 2022-10-14 00:00 | Occasional tobacco smoker | [facility] | | | | [facility] | + + + + | 2022-10-17 00:00 | Occasional tobacco smoker | [facility] | | | | [facility] | | | | Clinic | + + + + | 2022-10-21 00:00 | Current smoker | [facility] | + + + + | 2022-10-22 00:00 | Occasional tobacco smoker | [facility] | | | | [facility] | | | | Clinic | + + + + | 2022-10-23 00:00 | Occasional tobacco smoker | [facility] | | | | [facility] | | | | Clinic | + + + + | 2022-10-24 00:00 | Occasional tobacco smoker | [facility] | | | | [facility] | | | | Clinic | + + + + | 2022-10-25 00:00 | Occasional tobacco smoker | [facility] | | | | [facility] | | | | Clinic | + + + + | 2022-11-01 00:00 | Occasional tobacco smoker | [facility] | | | | [facility] | | | | Clinic | + + + + | 2022-11-04 00:00 | Occasional tobacco smoker | [facility] | | | | [facility] | | | | Clinic | + + + + | 2022-11-04 00:00 | Occasional tobacco smoker | [facility] | + + + + | 2022-11-05 00:00 | Occasional tobacco smoker | [facility] | | | | [facility] | | | | Clinic | + + + + | 2022-11-06 00:00 | Occasional tobacco smoker | [facility] | | | | [facility] | | | | Clinic | + + + + | 2022-11-06 00:00 | Occasional tobacco smoker | [facility] | + + + + | 2022-11-08 00:00 | Occasional tobacco smoker | [facility] | | | | [facility] | | | | Clinic | + + + + | 2022-11-11 00:00 | Occasional tobacco smoker | [facility] | | | | [facility] | | | | Clinic | + + + + | 2022-11-12 00:00 | Occasional tobacco smoker | [facility] | | | | [facility] | | | | Clinic | + + + + | 2022-11-13 00:00 | Occasional tobacco smoker | [facility] | | | | [facility] | | | | Clinic | + + + + | 2022-11-13 00:00 | Occasional tobacco smoker | [facility] | | | | [facility] | + + + + | 2022-11-14 00:00 | Occasional tobacco smoker | [facility] | | | | [facility] | | | | Clinic | + + + + | 2022-11-18 00:00 | Occasional tobacco smoker | [facility] | + + + + | 2022-11-19 00:00 | Occasional tobacco smoker | [facility] | | | | [facility] | | | | Clinic | + + + + | 2022-11-20 00:00 | Occasional tobacco smoker | [facility] | | | | [facility] | | | | Clinic | + + + + | 2022-11-22 00:00 | Occasional tobacco smoker | [facility] | | | | [facility] | | | | Clinic | + + + + | 2022-11-25 00:00 | Occasional tobacco smoker | [facility] | | | | [facility] | | | | Clinic | + + + + | 2022-11-25 00:00 | Occasional tobacco smoker | [facility] | | | | [facility] | | | | Clinic | + + + + | 2022-12-02 00:00 | Occasional tobacco smoker | [facility] | | | | [facility] | | | | Clinic | + + + + | 2022-12-06 00:00 | Occasional tobacco smoker | [facility] | | | | [facility] | | | | Clinic | [...]
--- OUTSIDE RECORDS SUMMARY | 2022-12-19 14:27 | XMS ---
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 E.D. VISIT COUNT ([address] [facility] - [place] 4 [facility] - [place] [address] [facility] TOTAL 15 NOTE: Visits indicate total known visits. ED/UCC VISIT TRACKING (12 MO.) 12/19/2022 14:24 [facility] [place] TYPE: Emergency COMPLAINT: - R BREAST WOUND CARE 11/08/2022 11:26 [place] [place]: [place] DIAGNOSES: - Delusional disorders - Other psychoactive substance abuse, uncomplicated - Anxiety - sob, anxiety 09/22/2022 22:19 [facility] [place] DIAGNOSES: - Dehydration - Diarrhea, unspecified - Hypokalemia - Nausea with vomiting, unspecified - Schizophrenia, unspecified - Vomiting, unspecified - Mental Health Problem - SOB, Vomiting - SOB, Vomiting, Mental Health - Vomiting 09/15/2022 21:07 [facility] [place] TYPE: Emergency DIAGNOSES: - Acute cough - Dehydration - Delusional disorders - Hypokalemia - Nausea with vomiting, unspecified - Unspecified kidney failure - Viral infection, unspecified - Shortness of Breath 08/23/2022 17:00 [facility] [place] TYPE: Emergency DIAGNOSES: - Unspecified psychosis not due to a substance or known physiological condition - Paranoia - Psychiatric Evaluation - shortness of breath 08/15/2022 12:26 [facility] [place] TYPE: Emergency DIAGNOSES: - Other psychoactive substance abuse, uncomplicated - Other stimulant abuse, uncomplicated - Unspecified psychosis not due to a substance or known physiological condition - Mental Health Problem - Shortness of Breath 07/16/2022 18:57 [facility] [place] TYPE: Emergency DIAGNOSES: - Coronavirus infection, unspecified - Suicidal ideations - Lethargic; Mental Health - Mental Health Problem - Vomiting 05/17/2022 09:58 [facility] [place] TYPE: Emergency DIAGNOSES: - Generalized abdominal pain - Abdominal Cramping - Detox / Eval - Mental health eval - Mental Health Problem 05/14/2022 08:42 [facility] [place] TYPE: Emergency DIAGNOSES: - Delusional disorders - Other psychoactive substance use, unspecified, uncomplicated - Mental Health Problem - mental health/shortness of breath 04/30/2022 12:02 [facility] [place] TYPE: Emergency DIAGNOSES: - Hallucinations, unspecified - Abdominal Pain - Hallucinations - Halucinations - Halucinations/MCAT drop off 04/25[facility]2022 14[facility] [place] [facility] DIAGNOSES: - Diarrhea, unspecified - Nausea with vomiting, unspecified - Unspecified psychosis not due to a substance or known physiological condition - Delusional - weakness - weakness mental health 03/19/2022 07[facility] [place] [facility] DIAGNOSES: - Other stimulant abuse, uncomplicated - Schizophrenia, unspecified - Delusional - Hallucinations - Vomiting - Vomiting; Mental Health 02/09/2022 09:05 [facility] [place] TYPE: Emergency DIAGNOSES: - Delusional disorders - Suicidal ideations - Anxiety - chills and fever 12/21/2021 11:53 [facility] [place] TYPE: Emergency DIAGNOSES: - Anxiety disorder, unspecified - Other stimulant abuse, uncomplicated - Unspecified psychosis not due to a substance or known physiological condition - Altered Mental Status 12/21/2021 11:53 [facility] [place] TYPE: Psychiatric Emergency DIAGNOSES: - Anxiety disorder, unspecified - Other stimulant abuse, uncomplicated - Unspecified psychosis not due to a substance or known physiological condition INPATIENT VISIT TRACKING (12 MO.) 11/08/2022 16:04 [facility] [place] TYPE: Psychiatric Services DIAGNOSES: - Gastro-esophageal reflux disease without esophagitis - Hypothyroidism, unspecified - Major depressive disorder, recurrent, moderate - Paranoid schizophrenia - Suicidal ideations - Schizophrenia 09/23/2022 02:05 [facility] [place] TYPE: Psychiatric Services DIAGNOSES: - Disorganized schizophrenia - Gastro-esophageal reflux disease without esophagitis - Major depressive disorder, single episode, severe with psychotic features - Paranoid schizophrenia - Schizophrenia, unspecified - Paranoid Schizophrenia 08/24/2022 14:09 [facility] [place] TYPE: Psychiatric Services DIAGNOSES: - Major depressive disorder, single episode, severe with psychotic features - Paranoid schizophrenia - Schizophrenia, unspecified - Psychosis ([facility]) 07/16/2022 23:43 [facility] [place] TYPE: Psychiatric Services DIAGNOSES: - Drug induced constipation - Major depressive disorder, recurrent, moderate - Paranoid schizophrenia - Tobacco use - Unspecified psychosis not due to a substance or known physiological condition - psychosis 05/17/2022 15:44 [facility] [place] TYPE: Psychiatric Services DIAGNOSES: - Disturbances of salivary secretion - Major depressive disorder, recurrent, moderate - Schizophrenia, unspecified - Unspecified psychosis not due to a substance or known physiological condition - Schizophrenia 03/19/2022 17:18 [facility] [place] TYPE: Psychiatric Services DIAGNOSES: - Generalized anxiety disorder - Schizophrenia, unspecified - Unspecified psychosis not due to a substance or known physiological condition - Delusion 02/09/2022 13:19 [facility] [place] TYPE: Psychiatric Services DIAGNOSES: - Generalized anxiety disorder - Major depressive disorder, recurrent, moderate - Paranoid schizophrenia - Unspecified psychosis not due to a substance or known physiological condition - SCHIZOPHRENIA 12/26/2021 11:[facility] [place] [facility] DIAGNOSES: - Major depressive disorder, single episode, severe with psychotic features - Paranoid schizophrenia - Tobacco use - Unspecified psychosis not due to a substance or known physiological condition - Methamphetamine-induced psychotic disorder (CMS/HCC) 12/21/2021 11:[facility] [place] [facility] DIAGNOSES: - Anxiety disorder, unspecified - Other stimulant abuse, uncomplicated - Unspecified psychosis not due to a substance or known physiological condition [email or web address]
[2022-12-19 20:07] LABS: BASOPHILS 0.9 % (0-2); EOSINOPHILS 0.3 % (0-6); HEMATOCRIT 40.1 % (35.0-50.0); HEMOGLOBIN 13.4 g/dL (12.0-18.0); LYMPHOCYTES 34.5 % (24-44); MCH 29.3 (27-36); MCHC 33.4 g/dl (30-36); MCV 87.5 fl (81-99); MONOCYTES 2.9 % (0-12); NEUTROPHILS 61.4 % (39-80); PLATELET COUNT 373 K/uL (140-440); RBC 4.58 M/ul (4.3-5.7); RDW 13.2 (10.5-15.0)
[2022-12-19 20:20] LABS: ALBUMIN 3.3 g/dL (3.4-5.0); ALBUMIN/GLOBULIN RATIO 0.83 (1.1-2.4); ANION GAP 14.4 (7-21); BILIRUBIN, TOTAL 0.3 ng/dL (0.2-1.0); BUN/CREATININE RATIO 13.46 (6.0-28.6); CALCIUM 8.8 mg/dL (8.5-10.1); CREATININE, SERUM 1.04 mg/dL (0.55-1.02); POTASSIUM 4.4 mmol/L (3.5-5.1); PROTEIN, TOTAL 7.3 g/dL (6.4-8.2)
[2022-12-19] MEDS ORDERED: BACTRIM DS TAB1 EACH PO (21:12)
[2022-12-19 21:34] VITALS: BP 143/88
== END 2022-12-19 21:33 | disposition home or self-care (01) ==
LOC: ED 14:22
PROVIDERS: Family Medicine
DX: N61.1 Abscess of the breast and nipple (principal)
CPT/HCPCS: 36415; 80053; 85025; 96374; 99283-25; A9270; J2270

== ENCOUNTER 2023-01-20 12:37 | Emergency (ER) | payer MEDICAID ==
[~2023-01-20] VITALS: Ht 162.6 cm; Wt 100.9 kg
--- OUTSIDE RECORDS SUMMARY | ~2023-01-20 | XMS | Continuity of Care Document ---
Demographics + + + | Address | [address] [facility] [facility] | | | [place] [address] | + + + | Preferred Language | Unknown | + + + | Marital Status | Never | + + + | Anabaptism Affiliation | Mandaen (non-Mu-Ism, non-specific) | + + + | Race | White | + + + | Ethnic Group | Not or | + + + Author + + + | Author | [facility] | + + + | Organization | [facility] | + + + | Address | [address] [place] [address] | | | [place] [address] | + + + | Phone | | + + + Care Team Providers + + + + | Care Fitter Mechanic Name | Role | Phone | + + + + Unavailable | Unavailable | + + + + Unavailable | Unavailable | + + + + Unavailable | Unavailable | + + + + Unavailable | Unavailable | + + + + Unavailable | Unavailable | + + + + Allergies No information. Encounters No information. Functional Status No information. Immunizations No information. Medications + + + + | date | description | facility | + + + + | 2022-11-26 00:00 | dante huia 400 mg | [facility] | | | extended release prefilled | [facility] | | | syringe | Clinic | + + + + | 2022-11-26 00:00 | dante fragoso 400 mg | [facility] | | | extended release prefilled | [facility] | | | syringe | Clinic | + + + + | 2022-11-25 00:00 | clozapine 25 mg oral | [facility] | | | tablet | [facility] | | | | Clinic | + + + + | 2022-11-25 00:00 | clozapine 25 mg oral | [facility] | | | tablet | [facility] | | | | Clinic | + + + + | 2022-11-25 00:00 | clozapine 25 mg oral | [facility] | | | tablet | [facility] [address] | | | | Clinic | + + + + | 2022-11-04 00:00 | famotidine 40 mg oral | [facility] | | | tablet | [facility] | | | | Clinic | + + + + | 2022-11-04 00:00 | famotidine 40 mg oral | [facility] | | | tablet | [facility] | | | | Clinic | + + + + | 2022-11-04 00:00 | famotidine 40 mg oral | [facility] | | | tablet | [facility] | + + + + | 2022-11-04 00:00 | famotidine 40 mg oral | [facility] | | | tablet | | + + + + | 2022-11-04 00:00 | famotidine 40 mg oral | [facility] | | | tablet | [facility] | | | [facility] | + + + + | 2022-11-04 00:00 | famotidine 40 mg oral | [facility] | | | tablet | [facility] | | | | Clinic | + + + + | 2022-11-04 00:00 | famotidine 40 mg oral | [facility] | | | tablet | | + + + + | 2022-10-23 00:00 | 24 hr venlafaxine 150 mg | [facility] | | | extended release oral | [facility] | | | capsule | Clinic | + + + + | 2022-10-23 00:00 | 24 hr venlafaxine 150 mg | [facility] | | | extended release oral | [facility] [address] | | | capsule | Clinic | + + + + | 2022-10-23 00:00 | 24 hr venlafaxine 150 mg | [facility] | | | extended release oral | [facility] | | | capsule | | + + + + | 2022-10-23 00:00 | 24 hr venlafaxine 150 mg | [facility] | | | extended release oral | | | | capsule | | + + + + | 2022-10-23 00:00 | 24 hr venlafaxine 150 mg | [facility] | | | extended release oral | [facility] | | | capsule | Clinic | + + + + | 2022-10-23 00:00 | 24 hr venlafaxine 150 mg | [facility] | | | extended release oral | [facility] | | | capsule | Clinic | + + + + | 2022-10-23 00:00 | 24 hr venlafaxine 150 mg | [facility] | | | extended release oral | | | | capsule | | + + + + | 2022-10-22 00:00 | 24 hr venlafaxine 75 mg | [facility] | | | extended release oral | [facility] | | | capsule | Clinic | + + + + | 2022-10-22 00:00 | effexor xr 75 mg 24hr | [facility] | | | extended release oral | [facility] | | | capsule | Clinic | + + + + | 2022-11-19 00:00 | trazodone hydrochloride 50 | [facility] | | | mg oral tablet | [facility] | | | | Clinic | + + + + | 2022-11-19 00:00 | trazodone hydrochloride 50 | [facility] | | | mg oral tablet | [facility] | | | | Clinic | + + + + | 2022-11-19 00:00 | trazodone hydrochloride 50 | [facility] | | | mg oral tablet | [facility] | | | | Clinic | + + + + | 2022-11-19 00:00 | trazodone hydrochloride 50 | [facility] | | | mg oral tablet | [facility] | | | | Clinic | + + + + | 2022-11-19 00:00 | hydroxyzine pamoate 25 mg | [facility] | | | oral capsule | [facility] | | | | Clinic | + + + + | 2022-11-19 00:00 | hydroxyzine pamoate 25 mg | [facility] | | | oral capsule | [facility] | | | | Clinic | + + + + | 2022-11-19 00:00 | hydroxyzine pamoate 25 mg | [facility] | | | oral capsule | [facility] | | | | Clinic | + + + + | 2022-11-19 00:00 | hydroxyzine pamoate 25 mg | [facility] | | | oral capsule | [facility] | | | | Clinic | + + + + Problems + + + + | date | description | facility | + + + + | 2022-10-22 [...] | 2022-11-05 00:00 | chronic schizophrenic | [facility] | | | | [facility] | | | | Clinic | + + + + | 2022-11-05 00:00 | chronic schizophrenic | [facility] | + + + + | 2022-11-05 00:00 | Schizophrenia, chronic | [facility] | | | condition ([facility]-CMS) | [facility] | | | | Clinic | + + + + | 2022-11-05 00:00 | Schizophrenia, chronic | [facility] | | | condition (HCC-CMS) | | + + + + [...] + + | 2022-11-06 17:36:13 | 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) | [facility] | | | 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 [...] + | 2022-11-08 11:26 | Anxiety | [facility] | | | | [place] | + + + + | 2022-11-08 11:26 | Other psychoactive | [facility] - | | | substance abuse, | [place] | | | uncomplicated | | + + + + | 2022-11-08 11:26 | Delusional disorders | [facility] | | | | [place] | [...] | | + + + + | 2022-12-20 07:57:37 | Care Coordination | [facility] | + + + + | 2022-12-26 14:34:53 | 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, uncomplicated | | + + + + | 2022-12-26 14:34:53 | Schizoaffective disorder, | [facility] | | | depressive type | | + + + + | 2022-12-26 14:45:57 | 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 Results/Labs +--------+--------+ +---------+--------+---------+ | test | date | facility | value | unit | notes | +--------+--------+ +---------+--------+---------+ + + | Result panel 1 | + + + + + + + + + | EGFR | 2022-11-08 | [facility] | > | | (missing) | | (GLOMERULAR | 11:31 | [facility] | | ml/min/1.73m | | | FILTRATION | | Behavioral | | ? | | | RATE) | | Health | | | | | ML/MIN/1.73 | | [facility] | | | | | SQ M. | | Clinic | | | | + + + + + + + | EGFR | 2022-11-08 | [facility] | > | | (missing) | | (GLOMERULAR | 11:31 | [facility] | | ml/min/1.73m | | | FILTRATION | | Behavioral | | ? | | | RATE) | | Health | | | | | ML/MIN/1.73 | | [facility] | | | | | SQ M. | | Clinic | | | | + + + + + + + | | 2022-11-08 | [facility] | < | mcg/ml | (missing) | | ACETAMINOPHE | 11:31 | [facility] | | | | | N (UG/ML) IN | | Behavioral | | | | | SER/PLAS | | Health | | | | | | | [facility] | | | | | | | Clinic | | | | + + + + + + + | | 2022-11-08 | [facility] | < | mcg/ml | Results >150 | | ACETAMINOPHE | 11:31 | [facility] | | | mcg/mL at 4 | | N (UG/ML) IN | | Behavioral | | | hrs | | SER/PLAS | | Health | | | post-ingesti | | | | [facility] | | | on are | | | | Clinic | | | toxic. | | | | | | | Results >75 | | | | | | | mcg/mL at 8 | | | | | | | hrs | | | | | | | post-ingesti | | | | | | | on are | | | | | | | toxic. | | | | | | | Results >40 | | | | | | | mcg/mL at 12 | | | | | | | hrs | | | | | | | post-ingesti | | | | | | | on are | | | | | | | toxic. | + + + + + + + | NRBC/100 | 2022-11-08 | [facility] | 0.0 | % | (missing) | | WBCS BY | 11: | [facility] | | | | | AUTOMATED | | Behavioral | | | | | COUNT | | Health | | | | | | | [facility] | | | | | | | Clinic | | | | + + + + + + + | | 2022-11-08 | [facility] | 0.0 | % | (missing) | | EOSINOPHILS/ | 11:31 | [facility] | | | | | 100 | | Behavioral | | | | | LEUKOCYTES | | Health | | | | | IN BLOOD BY | | [facility] | | | | | AUTOMATED | | Clinic | | | | | COUNT | | | | | | + + + + + + + | NRBC/100 | 2022-11-08 | [facility] | 0.0 | % | (missing) | | WBCS BY | 11:31 | [facility] | | | | | AUTOMATED | | Behavioral | | | | | COUNT | | Health | | | | | | | [facility] | | | | | | | Clinic | | | | + + + + + + + | | 2022-11-08 | [facility] | 0.0 | % | (missing) | | EOSINOPHILS/ | 11:31 | [facility] | | | | | 100 | | Behavioral | | | | | LEUKOCYTES | | Health | | | | | IN BLOOD BY | | [facility] | | | | | AUTOMATED | | Clinic | | | | | COUNT | | | | | | + + + + + + + | | 2022-11-08 | [facility] | 0.0 | k/mcl | (missing) | | NRBC(10*3/UL | 11:31 | [facility] | | | | | ) IN BLOOD | | Behavioral | | | | | BY AUTOMATED | | Health | | | | | COUNT | | [facility] | | | | | | | Clinic | | | | + + + + + + + | EOSINOPHILS | 2022-11-08 | [facility] | 0.0 | k/mcl | (missing) | | (10*3/UL) | 11:31 | [facility] | | | | | IN BLOOD BY | | Behavioral | | | | | AUTOMATED | | Health | | | | | COUNT | | [facility] | | | | | | | Clinic | | | | + + + + + + + | EOSINOPHILS | 2022-11-08 | [facility] | 0.0 | k/mcl | (missing) | | (10*3/UL) | 11:31 | [facility] | | | | | IN BLOOD BY | | Behavioral | | | | | AUTOMATED | | Health | | | | | COUNT | | [facility] | | | | | | | Clinic | | | | + + + + + + + | | 2022-11-08 | [facility] | 0.0 | k/mcl | (missing) | | NRBC(10*3/UL | 11:31 | [facility] | | | | | ) IN BLOOD | | Behavioral | | | | | BY AUTOMATED | | Health | | | | | COUNT | | [facility] | | | | | | | Clinic | | | | + + + + + + + | ALCOHOL | 2022-11-08 | [facility] | 0.020 | g/dl | (missing) | | (G/DL) IN | 11:31 | [facility] | | | | | SER/PLAS | | Behavioral | | | | | | | Health | | | | | | | [facility] | | | | | | | Clinic | | | | + + + + + + + | ALCOHOL | 2022-11-08 | [facility] | 0.020 | g/dl | (missing) | | (G/DL) IN | 11:31 | [facility] | | | | | SER/PLAS | | Behavioral | | | | | | | Health | | | | | | | [facility] | | | | | | | Clinic | | | | + + + + + + + | IMMATURE | 2022-11-08 | [facility] | 0.08 | k/mcl | (missing) | | GRANULOCYTE | 11:31 | [facility] | | | | | (ABS) | | Behavioral | | | | | | | Health | | | | | | | [facility] | | | | | | | Clinic | | | | + + + + + + + | IMMATURE | 2022-11-08 | [facility] | 0.08 | k/mcl | (missing) | | GRANULOCYTE | 11:31 | [facility] | | | | | (ABS) | | Behavioral | | | | | | | Health | | | | | | | [facility] | | | | | | | Clinic | | | | + + + + + + + | BASOPHILS | 2022-11-08 | [facility] | 0.1 | k/mcl | (missing) | | (10*3/UL) IN | 11:31 | [facility] | | | | | BLOOD BY | | Behavioral | | | | | AUTOMATED | | Health | | | | | COUNT | | [facility] | | | | | | | Clinic | | | | + + + + + + + | BASOPHILS | 2022-11-08 | [facility] | 0.1 | k/mcl | (missing) | | (10*3/UL) IN | 11:31 | [facility] | | | | | BLOOD BY | | Behavioral | | | | | AUTOMATED | | Health | | | | | COUNT | | [facility] | | | | | | | Clinic | | | | + + + + + + + | BILIRUBIN | 2022-11-08 | [facility] | 0.3 | mg/dl | (missing) | | TOTAL | 11:31 | [facility] | | | | | (MG/DL) IN | | Behavioral | | | | | SER/PLAS | | Health | | | | | | | [facility] | | | | | | | Clinic | | | | + + + + + + + | BILIRUBIN | 2022-11-08 | [facility] | 0.3 | mg/dl | (missing) | | TOTAL | 11:31 | [facility] | | | | | (MG/DL) IN | | Behavioral | | | | | SER/PLAS | | Health | | | | | | | [facility] | | | | | | | Clinic | | | | + + + + + + + | IMMATURE | 2022-11-08 | [facility] | 0.6 | % | (missing) | | GRANULOCYTE | 11:31 | [facility] | | | | | % (AUTO) | | Behavioral | | | | | | | Health | | | | | | | [facility] | | | | | | | Clinic | | | | + + + + + + + | | 2022-11-08 | [facility] | 0.6 | % | (missing) | | BASOPHILS/10 | 11:31 | [facility] | | | | | 0 LEUKOCYTES | | Behavioral | | | | | IN BLOOD BY | | Health | | | | | AUTOMATED | | [facility] | | | | | COUNT | | Clinic | | | | + + + + + + + | | 2022-11-08 | [facility] | 0.6 | % | (missing) | | BASOPHILS/10 | 11:31 | [facility] | | | | | 0 LEUKOCYTES | | Behavioral | | | | | IN BLOOD BY | | Health | | | | | AUTOMATED | | [facility] | | | | | COUNT | | Clinic | | | | + + + + + + + | IMMATURE | 2022-11-08 | [facility] | 0.6 | % | (missing) | | GRANULOCYTE | 11:31 | [facility] | | | | | % (AUTO) | | Behavioral | | | | | | | Health | | | | | | | [facility] | | | | | | | Clinic | | | | + + + + + + + | MONOCYTES | 2022-11-08 | [facility] | 0.9 | k/mcl | (missing) | | (10*3/UL) IN | 11:31 | [facility] | | | | | BLOOD BY | | Behavioral | | | | | AUTOMATED | | Health | | | | | COUNT | | [facility] | | | | | | | Clinic | | | | + + + + + + + | MONOCYTES | 2022-11-08 | [facility] | 0.9 | k/mcl | (missing) | | (10*3/UL) IN | 11:31 | [facility] | | | | | BLOOD BY | | Behavioral | | | | | AUTOMATED | | Health | | | | | COUNT | | [facility] | | | | | | | Clinic | | | | + + + + + + + | CREATININE | 2022-11-08 | [facility] | 0.9 | mg/dl | (missing) | | (MG/DL) IN | | [facility] | | | | | SER/PLAS | | Behavioral | | | | | | | Health | | | | | | | [facility] | | | | | | | Clinic | | | | + + + + + + + | CREATININE | 2022-11-08 | [facility] | 0.9 | mg/dl | (missing) | | (MG/DL) IN | 31 | [facility] | | | | | SER/PLAS | | Behavioral | | | | | | | Health | | | | | | | [facility] | | | | | | | Clinic | | | | + + + + + + + | PROTEIN IN | 2022-11-08 | [facility] | 1 | (missing) | (missing) | | URINE BY | | County | | | | | TEST STRIP | | Behavioral | | | | | | | Health | | | | | | | [facility] | | | | | | | Clinic | | | | + + + + + + + | PROTEIN IN | 2022-11-08 | [facility] | 1 | (missing) | (missing) | | URINE BY | 11:31 | [facility] | | | | | TEST STRIP | | Behavioral | | | | | | | Health | | | | | | | [facility] | | | | | | | Clinic | | | | + + + + + + + | SPECIFIC | 2022-11-08 | [facility] | 1.019 | (missing) | (missing) | | GRAVITY OF | 11:31 | [facility] | | | | | URINE BY | | Behavioral | | | | | AUTOMATED | | Health | | | | | TEST STRIP | | [facility] | | | | | | | Clinic | | | | + + + + + + + | SPECIFIC | 2022-11-08 | [facility] | 1.019 | (missing) | (missing) | | GRAVITY OF | 11:31 | [facility] | | | | | URINE BY | | Behavioral | | | | | AUTOMATED | | Health | | | | | TEST STRIP | | [facility] | | | | | | | Clinic | | | | + + + + + + + | SALICYLATE | 2022-11-08 | [facility] | 1.2 | mg/dl | (missing) | | (MG/DL) IN | 11:31 | [facility] | | | | | SER/PLAS | | Behavioral | | | | | | | Health | | | | | | | [facility] | | | | | | | Clinic | | | | + + + + + + + | SALICYLATE | 2022-11-08 | [facility] | 1.2 | mg/dl | (missing) | | (MG/DL) IN | 11:31 | [facility] | | | | | SER/PLAS | | Behavioral | | | | | | | Health | | | | | | | [facility] | | | | | | | Clinic | | | | + + + + + + + | CHLORIDE | 2022-11-08 | [facility] | 106 | mmol/l | (missing) | | (MMOL/L) IN | 11:31 | [facility] | | | | | SER/PLAS | | Behavioral | | | | | | | Health | | | | | | | [facility] | | | | | | | Clinic | | | | + + + + + + + | CHLORIDE | 2022-11-08 | [facility] | 106 | mmol/l | (missing) | | (MMOL/L) IN | 11:31 | [facility] | | | | | SER/PLAS | | Behavioral | | | | | | | Health | | | | | | | [facility] | | | | | | | Clinic | | | | + + + + + + + | ERYTHROCYTE | 2022-11-08 | [facility] | 12.2 | % | (missing) | | | 11:31 | [facility] | | | | | DISTRIBUTION | | Behavioral | | | | | WIDTH | | Health | | | | | (RATIO) BY | | [facility] | | | | | AUTOMATED | | Clinic | | | | | COUNT | | | | | | + + + + + + + | ERYTHROCYTE | 2022-11-08 | [facility] | 12.2 | % | (missing) | | | 11:31 | [facility] | | | | | DISTRIBUTION | | Behavioral | | | | | WIDTH | | Health | | | | | (RATIO) BY | | [facility] | | | | | AUTOMATED | | Clinic | | | | | COUNT | | | | | | + + + + + + + | | 2022-11-08 | [facility] | 13.8 | k/mcl | (missing) | | LEUKOCYTES(1 | 11:31 | [facility] | | | | | 0*3/UL) IN | | Behavioral | | | | | BLOOD BY | | Health | | | | | AUTOMATED | | [facility] | | | | | COUNT | | Clinic | | | | + + + + + + + | | 2022-11-08 | [facility] | 13.8 | k/mcl | (missing) | | LEUKOCYTES(1 | :31 | [facility] | | | | | 0*3/UL) IN | | Behavioral | | | | | BLOOD BY | | Health | | | | | AUTOMATED | | [facility] | | | | | COUNT | | Clinic | | | | + + + + + + + | SODIUM | 2022-11-08 | [facility] | 143 | mmol/l | (missing) | | (MMOL/L) IN | 11:31 | [facility] | | | | | SER/PLAS | | Behavioral | | | | | | | Health | | | | | | | [facility] | | | | | | | Clinic | | | | + + + + + + + | SODIUM | 2022-11-08 | [facility] | 143 | mmol/l | (missing) | | (MMOL/L) IN | 11:31 | [facility] | | | | | SER/PLAS | | Behavioral | | | | | | | Health | | | | | | | [facility] | | | | | | | Clinic | | | | + + + + + + + | HEMOGLOBIN | 2022-11-08 | [facility] | 15.2 | g/dl | (missing) | | (G/DL) IN | 11:31 | [facility] | | | | | BLOOD | | Behavioral | | | | | | | Health | | | | | | | [facility] | | | | | | | Clinic | | | | + + + + + + + | HEMOGLOBIN | 2022-11-08 | [facility] | 15.2 | g/dl | (missing) | | (G/DL) IN | 11:31 | [facility] | | | | | BLOOD | | Behavioral | | | | | | | Health | | | | | | | [facility] | | | | | | | Clinic | | | | + + + + + + + | CARBON | 2022-11-08 | [facility] | 18 | mmol/l | (missing) | | DIOXIDE | 11:31 | [facility] | | | | | (CO2), TOTAL | | Behavioral | | | | | (MMOL/L) IN | | Health | | | | | SER/PLAS | | [facility] | | | | | | | Clinic | | | | + + + + + + + | CARBON | 2022-11-08 | [facility] | 18 | mmol/l | (missing) | | DIOXIDE | 11:31 | [facility] | | | | | (CO2), TOTAL | | Behavioral | | | | | (MMOL/L) IN | | Health | | | | | SER/PLAS | | [facility] | | | | | | | Clinic | | | | + + + + + + + | ANION GAP | 2022-11-08 | [facility] | 19.0 | mmol/l | (missing) | | IN SER/PLAS | 11:31 | [facility] | | | | | | | Behavioral | | | | | | | Health | | | | | | | [facility] | | | | | | | Clinic | | | | + + + + + + + | ANION GAP | 2022-11-08 | [facility] | 19.0 | mmol/l | (missing) | | IN SER/PLAS | 11:31 | [facility] | | | | | | | Behavioral | | | | | | | Health | | | | | | | [facility] | | | | | | | Clinic | | | | + + + + + + + | RBC (#/HPF) | 2022-11-08 | [facility] | 2 | /hpf | (missing) | | IN URINE | 11:31 | [facility] | | | | | SEDIMENT | | Behavioral | | | | | | | Health | | | | | | | [facility] | | | | | | | Clinic | | | | + + + + + + + | RBC (#/HPF) | 2022-11-08 | [facility] | 2 | /hpf | (missing) | | IN URINE | 11:31 | [facility] | | | | | SEDIMENT | | Behavioral | | | | | | | Health | | | | | | | [facility] | | | | | | | Clinic | | | | + + + + + + + | TSH | 2022-11-08 | [facility] | 2.95 | mciu/ml | (missing) | | (THYROTROPIN | 11:31 | [facility] | | | | | ) (UIU/ML) | | Behavioral | | | | | IN SER/PLAS | | Health | | | | | | | [facility] | | | | | | | Clinic | | | | + + + + + + + | TSH | 2022-11-08 | [facility] | 2.95 | mciu/ml | (missing) | | (THYROTROPIN | 11:31 | [facility] | | | | | ) (UIU/ML) | | Behavioral | | | | | IN SER/PLAS | | Health | | | | | | | [facility] | | | | | | | Clinic | | | | + + + + + + + | SQUAMOUS | 2022-11-08 | [facility] | 28 | /hpf | (missing) | | EPITHELIAL | 11:31 | [facility] | | | | | CELLS | | Behavioral | | | | | (#/HPF) IN | | Health | | | | | URINE | | [facility] | | | | | SEDIMENT | | Clinic | | | | + + + + + + + | SQUAMOUS | 2022-11-08 | [facility] | 28 | /hpf | Findings | | EPITHELIAL | 11:31 | [facility] | | | indicate | | CELLS | | Behavioral | | | probable | | (#/HPF) IN | | Health | | | contaminatio | | URINE | | [facility] | | | n during | | SEDIMENT | | Clinic | | | collection. | | | | | | | Recollection | | | | | | | is required | | | | | | | if a urine | | | | | | | culture is | | | | | | | desired. | + + + + + + + | ERYTHROCYTE | 2022-11-08 | [facility] | 29.6 | pg | (missing) | | MEAN | 11:31 | [facility] | | | | | CORPUSCULAR | | Behavioral | | | | | HEMOGLOBIN | | Health | | | | | (PG) BY | | [facility] | | | | | AUTOMATED | | Clinic | | | | | COUNT | | | | | | + + + + + + + | ERYTHROCYTE | 2022-11-08 | [facility] | 29.6 | pg | (missing) | | MEAN | 11:31 | [facility] | | | | | CORPUSCULAR | | Behavioral | | | | | HEMOGLOBIN | | Health | | | | | (PG) BY | | [facility] | | | | | AUTOMATED | | Clinic | | | | | COUNT | | | | | | + + + + + + + | POTASSIUM | 2022-11-08 | [facility] | 3.7 | mmol/l | (missing) | | (MMOL/L) IN | 11:31 | [facility] | | | | | SER/PLAS | | Behavioral | | | | | | | Health | | | | | | | [facility] | | | | | | | Clinic | | | | + + + + + + + | POTASSIUM | 2022-11-08 | [facility] | 3.7 | mmol/l | (missing) | | (MMOL/L) IN | 11:31 | [facility] | | | | | SER/PLAS | | Behavioral | | | | | | | Health | | | | | | | [facility] | | | | | | | Clinic | | | | + + + + + + + | | 2022-11-08 | [facility] | 30.1 | % | (missing) | | LYMPHOCYTES/ | 11:31 | [facility] | | | | | 100 | | Behavioral | | | | | LEUKOCYTES | | Health | | | | | IN BLOOD BY | | [facility] | | | | | AUTOMATED | | Clinic | | | | | COUNT | | | | | | + + + + + + + | | 2022-11-08 | [facility] | 30.1 | % | (missing) | | LYMPHOCYTES/ | 11:31 | [facility] | | | | | 100 | | Behavioral | | | | | LEUKOCYTES | | Health | | | | | IN BLOOD BY | | [facility] | | | | | AUTOMATED | | Clinic | | | | | COUNT | | | | | | + + + + + + + | ERYTHROCYTE | 2022-11-08 | [facility] | 34.0 | g/dl | (missing) | | MEAN | 11:31 | [facility] | | | | | CORPUSCULAR | | Behavioral | | | | | HEMOGLOBIN | | Health | | | | | CONCENTRATIO | | [facility] | | | | | N (G/DL) BY | | Clinic | | | | | AUTOMATED | | | | | | + + + + + + + | ERYTHROCYTE | 2022-11-08 | [facility] | 34.0 | g/dl | (missing) | | MEAN | 11:31 | [facility] | | | | | CORPUSCULAR | | Behavioral | | | | | HEMOGLOBIN | | Health | | | | | CONCENTRATIO | | [facility] | | | | | N (G/DL) BY | | Clinic | | | | | AUTOMATED | | | | | | + + + + + + + | ASPARTATE | 2022-11-08 | [facility] | 39 | u/l | (missing) | | AMINOTRANSFE | 11:31 | [facility] | | | | | RASE (SGOT) | | Behavioral | | | | | (U/L) IN | | Health | | | | | SER/PLAS | | [facility] | | | | | | | [facility] | | | | + + + + + + + | ASPARTATE | 2022-11-08 | [facility] | 39 | u/l | (missing) | | AMINOTRANSFE | 11:31 | [facility] | | | | | RASE (SGOT) | | Behavioral | | | | | (U/L) IN | | Health | | | | | SER/PLAS | | [facility] | | | | Clinic | | | | + + + + + + + | LYMPHOCYTES | 2022-11-08 | [facility] | 4.2 | k/mcl | (missing) | | (10*3/UL) | 11:31 | [facility] | | | | | IN BLOOD BY | | Behavior[facility] | | | | | AUTOMATED | | Health | | | | | COUNT | | [facility] | | | | | | [facility] | | | | + + + + + + + | LYMPHOCYTES | 2022-11-08 | [facility] | 4.2 | k/mcl | (missing) | | (10*3/UL) | 11:31 | [facility] | | | | | IN BLOOD BY | | Behavioral | | | | | AUTOMATED | | Health | | | | | COUNT | | [facility] | | | | [facility] | | | | + + + + + + + | ALBUMIN | 2022-11-08 | [facility] | 4.7 | g/dl | (missing) | | (G/DL) IN | 11:31 | [facility] | | | | | SER/PLAS | | Behavioral | | | | | | | Health | | | | | | | [facility] | | | [facility] | | | | + + + + + + + | ALBUMIN | 2022-11-08 | [facility] | 4.7 | g/dl | (missing) | | (G/DL) IN | 11:31 | [facility] | | | | | SER/PLAS | | Behavioral | | | | | | | Health | | | | | | | [facility] | | | [facility] | | | | + + + + + + + | PLATELETS | 2022-11-08 | [facility] | 409 | k/mcl | (missing) | | (10*3/UL) IN | 11:31 | [facility] | | | | | BLOOD | | Behavior[facility] | | | | | AUTOMATED | | Health | | | | | COUNT | | [facility] | | | | [facility] | | | | + + + + + + + | PLATELETS | 2022-11-08 | [facility] | 409 | k/mcl | (missing) | | (10*3/UL) IN | 11:31 | [facility] | | | | | BLOOD | | Behavioral | | | | | AUTOMATED | | Health | | | | | COUNT | | [facility] | | | | [facility] | | | | + + + + + + + | HEMATOCRIT | 2022-11-08 | [facility] | 44.7 | % | (missing) | | (%) IN BLOOD | 11:31 | [facility] | | | | | BY | | Behavioral | | | | | AUTOMATED | | Health | | | | | COUNT | | [facility] | | | | Clinic | | | | + + + + + + + | HEMATOCRIT | 2022-11-08 | [facility] | 44.7 | % | (missing) | | (%) IN BLOOD | 11:31 | [facility] | | | | | BY | | Behavioral | | | | | AUTOMATED | | Health | | | | | COUNT | | [facility] | | | | | | | Clinic | | | | + + + + + + + | | 2022-11-08 | [facility] | 5.13 | m/mcl | (missing) | | ERYTHROCYTES | 11:31 | [facility] | | | | | (10*6/UL) | | Behavioral | | | | | IN BLOOD BY | | Health | | | | | AUTOMATED | | [facility] | | | | | COUNT | | Clinic | | | | + + + + + + + | | 2022-11-08 | [facility] | 5.13 | m/mcl | (missing) | | ERYTHROCYTES | 11:31 | [facility] | | | | | (10*6/UL) | | Behavioral | | | | | IN BLOOD BY | | Health | | | | | AUTOMATED | | [facility] | | | | | COUNT | | Clinic | | | | + + + + + + + | ALANINE | 2022-11-08 | [facility] | 58 | u/l | (missing) | | AMINOTRANSFE | 11:31 | [facility] | | | | | RASE (SGPT) | | Behavioral | | | | | (U/L) IN | | Health | | | | | SER/PLAS | | [facility] | | | | | | | Clinic | | | | + + + + + + + | ALANINE | 2022-11-08 | [facility] | 58 | u/l | (missing) | | AMINOTRANSFE | 11:31 | [facility] | | | | | RASE (SGPT) | | Behavioral | | | | | (U/L) IN | | Health | | | | | SER/PLAS | | [facility] | | | | | | | Clinic | | | | + + + + + + + | WBC | 2022-11-08 | [facility] | 6 | /hpf | (missing) | | (LEUKOCYTE) | 11:31 | [facility] | | | | | (#/HPF) IN | | Behavioral | | | | | URINE | | Health | | | | | SEDIMENT | | [facility] | | | | | | | Clinic | | | | + + + + + + + | WBC | 2022-11-08 | [facility] | 6 | /hpf | (missing) | | (LEUKOCYTE) | 11:31 | [facility] | | | | | (#/HPF) IN | | Behavioral | | | | | URINE | | Health | | | | | SEDIMENT | | [facility] | | | | | | | Clinic | | | | + + + + + + + | | 2022-11-08 | [facility] | 6.2 | % | (missing) | | MONOCYTES/10 | 11:31 | [facility] | | | | | 0 LEUKOCYTES | | Behavioral | | | | | IN BLOOD BY | | Health | | | | | AUTOMATED | | [facility] | | | | | COUNT | | Clinic | | | | + + + + + + + | | 2022-11-08 | [facility] | 6.2 | % | (missing) | | MONOCYTES/10 | 11:31 | [facility] | | | | | 0 LEUKOCYTES | | Behavioral | | | | | IN BLOOD BY | | Health | | | | | AUTOMATED | | [facility] | | | | | COUNT | | Clinic | | | | + + + + + + + | | 2022-11-08 | [facility] | 62.5 | % | (missing) | | NEUTROPHILS/ | 11:31 | [facility] | | | | | 100 | | Behavioral | | | | | LEUKOCYTES | | Health | | | | | IN BLOOD BY | | [facility] | | | | | AUTOMATED | | Clinic | | | | | COUNT | | | | | | + + + + + + + | | 2022-11-08 | [facility] | 62.5 | % | (missing) | | NEUTROPHILS/ | 11:31 | [facility] | | | | | 100 | | Behavioral | | | | | LEUKOCYTES | | Health | | | | | IN BLOOD BY | | [facility] | | | | | AUTOMATED | | Clinic | | | | | COUNT | | | | | | + + + + + + + | PROTEIN | 2022-11-08 | [facility] | 7.3 | g/dl | (missing) | | (G/DL) IN | :31 | [facility] | | | | | SER/PLAS | | Behavioral | | | | | | | Health | | | | | | | [facility] | | | | | | | Clinic | | | | + + + + + + + | PROTEIN | 2022-11-08 | [facility] | 7.3 | g/dl | (missing) | | (G/DL) IN | 11:31 | [facility] | | | | | SER/PLAS | | Behavioral | | | | | | | Health | | | | | | | [facility] | | | | | | | Clinic | | | | + + + + + + + | BLOOD UREA | 2022-11-08 | [facility] | 8 | mg/dl | (missing) | | NITROGEN | 11:31 | [facility] | | | | | (BUN) | | Behavioral | | | | | (MG/DL) IN | | Health | | | | | SER/PLAS | | [facility] | | | | | | | Clinic | | | | + + + + + + + | BLOOD UREA | 2022-11-08 | [facility] | 8 | mg/dl | (missing) | | NITROGEN | 11:31 | [facility] | | | | | (BUN) | | Behavioral | | | | | (MG/DL) IN | | Health | | | | | SER/PLAS | | [facility] | | | | | | | Clinic | | | | + + + + + + + | PH OF URINE | 2022-11-08 | [facility] | 8.0 | (missing) | (missing) | | | 11:31 | [facility] | | | | | | | Behavioral | | | | | | | Health | | | | | | | [facility] | | | | | | | Clinic | | | | + + + + + + + | PH OF URINE | 2022-11-08 | [facility] | 8.0 | (missing) | (missing) | | | 11:31 | [facility] | | | | | | | Behavioral | | | | | | | Health | | | | | | | [facility] | | | | | | | Clinic | | | | + + + + + + + | NEUTROPHILS | 2022-11-08 | [facility] | 8.7 | k/mcl | (missing) | | (10*3/UL) | 11:31 | [facility] | | | | | IN BLOOD BY | | Behavioral | | | | | AUTOMATED | | Health | | | | | COUNT | | [facility] | | | | | | | Clinic | | | | + + + + + + + | NEUTROPHILS | 2022-11-08 | [facility] | 8.7 | k/mcl | (missing) | | (10*3/UL) | 11:31 | [facility] | | | | | IN BLOOD BY | | Behavioral | | | | | AUTOMATED | | Health | | | | | COUNT | | [facility] | | | | | | | Clinic | | | | + + + + + + + | ERYTHROCYTE | 2022-11-08 | [facility] | 87.1 | fl | (missing) | | MEAN | 11:31 | [facility] | | | | | CORPUSCULAR | | Behavioral | | | | | VOLUME (FL) | | Health | | | | | BY AUTOMATED | | [facility] | | | | | COUNT | | Clinic | | | | + + + + + + + | ERYTHROCYTE | 2022-11-08 | [facility] | 87.1 | fl | (missing) | | MEAN | 11:31 | [facility] | | | | | CORPUSCULAR | | Behavioral | | | | | VOLUME (FL) | | Health | | | | | BY AUTOMATED | | [facility] | | | | | COUNT | | Clinic | | | | + + + + + + + | CALCIUM | 2022-11-08 | [facility] | 9.2 | mg/dl | (missing) | | (MG/DL) IN | 11:31 | [facility] | | | | | SER/PLAS | | Behavioral | | | | | | | Health | | | | | | | [facility] | | | | | | | Clinic | | | | + + + + + + + | CALCIUM | 2022-11-08 | [facility] | 9.2 | mg/dl | (missing) | | (MG/DL) IN | 11:31 | [facility] | | | | | SER/PLAS | | Behavioral | | | | | | | Health | | | | | | | [facility] | | | | | | | Clinic | | | | + + + + + + + | PLATELET | 2022-11-08 | [facility] | 9.3 | fl | (missing) | | MEAN VOLUME | 11:31 | [facility] | | | | | (FL) IN | | Behavioral | | | | | BLOOD BY | | Health | | | | | AUTOMATED | | [facility] | | | | | COUNT | | Clinic | | | | + + + + + + + | PLATELET | 2022-11-08 | [facility] | 9.3 | fl | (missing) | | MEAN VOLUME | 11:31 | [facility] | | | | | (FL) IN | | Behavioral | | | | | BLOOD BY | | Health | | | | | AUTOMATED | | [facility] | | | | | COUNT | | Clinic | | | | + + + + + + + | ALKALINE | 2022-11-08 | [facility] | 89 | u/l | (missing) | | PHOSPHATASE | 11:31 | [facility] | | | | | (U/L) IN | | Behavioral | | | | | SER/PLAS | | Health | | | | | | | [facility] | | | | | | | Clinic | | | | + + + + + + + | ALKALINE | 2022-11-08 | [facility] | 90 | u/l | (missing) | | PHOSPHATASE | 11:31 | [facility] | | | | | (U/L) IN | | Behavioral | | | | | SER/PLAS | | Health | | | | | | | [facility] | | | | | | | Clinic | | | | + + + + + + + | GLUCOSE, | 2022-11-08 | [facility] | 99 | mg/dl | (missing) | | RANDOM | 11:31 | [facility] | | | | | (MG/DL) IN | | Behavioral | | | | | SER/PLAS | | Health | | | | | | | [facility] | | | | | | | Clinic | | | | + + + + + + + | GLUCOSE, | 2022-11-08 | [facility] | 99 | mg/dl | (missing) | | RANDOM | 11:31 | [facility] | | | | | (MG/DL) IN | | Behavioral | | | | | SER/PLAS | | Health | | | | | | | [facility] | | | | | | | Clinic | | | | + + + + + + + | CLARITY OF | 2022-11-08 | [facility] | Hazy | (missing) | (missing) | | URINE | 11:31 | [facility] | | | | | | | Behavioral | | | | | | | Health | | | | | | | [facility] | | | | | | | Clinic | | | | + + + + + + + | CLARITY OF | 2022-11-08 | [facility] | Hazy | (missing) | (missing) | | URINE | 11:31 | [facility] | | | | | | | Behavioral | | | | | | | Health | | | | | | | [facility] | | | | | | | Clinic | | | | + + + + + + + | | 2022-11-08 | [facility] | Negative | (missing) | (missing) | | BARBITURATES | 11:31 | [facility] | | | | | PRESENCE IN | | Behavioral | | | | | URINE BY | | Health | | | | | SCREEN | | [facility] | | | | | METHOD | | Clinic | | | | + + + + + + + | | 2022-11-08 | [facility] | Negative | (missing) | (missing) | | BENZODIAZEPI | 11:31 | [facility] | | | | | SURYA | | Behavioral | | | | | (PRESENCE) | | Health | | | | | IN URINE BY | | [facility] | | | | | SCREEN | | Clinic | | | | | METHOD | | | | | | + + + + + + + | BILIRUBIN, | 2022-11-08 | [facility] | Negative | (missing) | (missing) | | TOTAL | 11:31 | [facility] | | | | | PRESENCE IN | | Behavioral | | | | | URINE | | Health | | | | | | | [facility] | | | | | | | Clinic | | | | + + + + + + + | COCAINE | 2022-11-08 | [facility] | Negative | (missing) | (missing) | | (PRESENCE) | 11:31 | [facility] | | | | | IN URINE BY | | Behavioral | | | | | SCREEN | | Health | | | | | METHOD | | [facility] | | | | | | | Clinic | | | | + + + + + + + | GLUCOSE IN | 2022-11-08 | [facility] | Negative | (missing) | (missing) | | URINE | 11:31 | [facility] | | | | | | | Behavioral | | | | | | | Health | | | | | | | [facility] | | | | | | | Clinic | | | | + + + + + + + | HEMOGLOBIN | 2022-11-08 | [facility] | Negative | (missing) | (missing) | | PRESENCE IN | 11:31 | [facility] | | | | | URINE | | Behavioral | | | | | | | Health | | | | | | | [facility] | | | | | | | Clinic | | | | + + + + + + + | KETONES IN | 2022-11-08 | [facility] | Negative | (missing) | (missing) | | URINE | 11:31 | [facility] | | | | | | | Behavioral | | | | | | | Health | | | | | | | [facility] | | | | | | | Clinic | | | | + + + + + + + | METHADONE | 2022-11-08 | [facility] | Negative | (missing) | (missing) | | (PRESENCE) | 11:31 | [facility] | | | | | IN URINE BY | | Behavioral | | | | | SCREEN | | Health | | | | | METHOD | | [facility] | | | | | | | Clinic | | | | + + + + + + + | NITRITE | 2022-11-08 | [facility] | Negative | (missing) | (missing) | | PRESENCE IN | 11:31 | [facility] | | | | | URINE | | Behavioral | | | | | | | Health | | | | | | | [facility] | | | | | | | Clinic | | | | + + + + + + + | OPIATES | 2022-11-08 | [facility] | Negative | (missing) | (missing) | | (PRESENCE) | 11:31 | [facility] | | | | | IN URINE BY | | Behavioral | | | | | SCREEN | | Health | | | | | METHOD | | [facility] | | | | | | | Clinic | | | | + + + + + + + | OXYCODONE | 2022-11-08 | [facility] | Negative | (missing) | (missing) | | (PRESENCE) | :31 | [facility] | | | | | IN URINE BY | | Behavioral | | | | | SCREEN | | Health | | | | | METHOD | | [facility] | | | | | | | Clinic | | | | + + + + + + + | | 2022-11-08 | [facility] | Negative | (missing) | (missing) | | PHENCYCLIDIN | :31 | [facility] | | | | | E (PRESENCE) | | Behavioral | | | | | IN URINE BY | | Health | | | | | SCREEN | | [facility] | | | | | METHOD | | Clinic | | | | + + + + + + + | THC | 2022-11-08 | [facility] | Negative | (missing) | (missing) | | (CANNABINOID | 11:31 | [facility] | | | | | ) IN URINE | | Behavioral | | | | | BY SCREEN | | Health | | | | | METHOD | | [facility] | | | | | | | Clinic | | | | + + + + + + + | TRICYCLIC | 2022-11-08 | [facility] | Negative | (missing) | (missing) | | ANTIDEPRESSA | 11:31 | [facility] | | | | | NTS | | Behavioral | | | | | (PRESENCE) | | Health | | | | | IN URINE | | [facility] | | | | | | | Clinic | | | | + + + + + + + | | 2022-11-08 | [facility] | Negative | (missing) | (missing) | | PHENCYCLIDIN | :31 | [facility] | | | | | E (PRESENCE) | | Behavioral | | | | | IN URINE BY | | Health | | | | | SCREEN | | [facility] | | | | | METHOD | | Clinic | | | | + + + + + + + | THC | 2022-11-08 | [facility] | Negative | (missing) | (missing) | | (CANNABINOID | 11:31 | [facility] | | | | | ) IN URINE | | Behavioral | | | | | BY SCREEN | | Health | | | | | METHOD | | [facility] | | | | | | | Clinic | | | | + + + + + + + | OPIATES | 2022-11-08 | [facility] | Negative | (missing) | (missing) | | (PRESENCE) | 11:31 | [facility] | | | | | IN URINE BY | | Behavioral | | | | | SCREEN | | Health | | | | | METHOD | | [facility] | | | | | | | Clinic | | | | + + + + + + + | TRICYCLIC | 2022-11-08 | [facility] | Negative | (missing) | (missing) | | ANTIDEPRESSA | 11:31 | [facility] | | | | | NTS | | Behavioral | | | | | (PRESENCE) | | Health | | | | | IN URINE | | [facility] | | | | | | | Clinic | | | | + + + + + + + | AMPHETAMINE | 2022-11-08 | [facility] | Negative | (missing) | (missing) | | (PRESENCE) | 11:31 | [facility] | | | | | IN URINE BY | | Behavioral | | | | | SCREEN | | Health | | | | | METHOD | | [facility] | | | | | | | Clinic | | | | + + + + + + + | OXYCODONE | 2022-11-08 | [facility] | Negative | (missing) | (missing) | | (PRESENCE) | 11:31 | [facility] | | | | | IN URINE BY | | Behavioral | | | | | SCREEN | | Health | | | | | METHOD | | [facility] | | | | | | | Clinic | | | | + + + + + + + | BILIRUBIN, | 2022-11-08 | [facility] | Negative | (missing) | (missing) | | TOTAL | 11:31 | [facility] | | | | | PRESENCE IN | | Behavioral | | | | | URINE | | Health | | | | | | | [facility] | | | | | | | Clinic | | | | + + + + + + + | BHCG QUAL | 2022-11-08 | [facility] | Negative | (missing) | (missing) | | (CHORIOGONAD | 11:31 | [facility] | | | | | OTROPIN) IN | | Behavioral | | | | | SER/PLAS | | Health | | | | | | | [facility] | | | | | | | Clinic | | | | + + + + + + + | GLUCOSE IN | 2022-11-08 | [facility] | Negative | (missing) | (missing) | | URINE | 11:31 | [facility] | | | | | | | Behavioral | | | | | | | Health | | | | | | | [facility] | | | | | | | Clinic | | | | + + + + + + + | COCAINE | 2022-11-08 | [facility] | Negative | (missing) | (missing) | | (PRESENCE) | 11:31 | [facility] | | | | | IN URINE BY | | Behavioral | | | | | SCREEN | | Health | | | | | METHOD | | [facility] | | | | | | | Clinic | | | | + + + + + + + | NITRITE | 2022-11-08 | [facility] | Negative | (missing) | (missing) | | PRESENCE IN | 11:31 | [facility] | | | | | URINE | | Behavioral | | | | | | | Health | | | | | | | [facility] | | | | | | | Clinic | | | | + + + + + + + | KETONES IN | 2022-11-08 | [facility] | Negative | (missing) | (missing) | | URINE | 11:31 | [facility] | | | | | | | Behavioral | | | | | | | Health | | | | | | | [facility] | | | | | | | Clinic | | | | + + + + + + + | | 2022-11-08 | [facility] | Negative | (missing) | (missing) | | BARBITURATES | 11:31 | [facility] | | | | | PRESENCE IN | | Behavioral | | | | | URINE BY | | Health | | | | | SCREEN | | [facility] | | | | | METHOD | | Clinic | | | | + + + + + + + | | 2022-11-08 | [facility] | Negative | (missing) | (missing) | | BENZODIAZEPI | 11:31 | [facility] | | | | | SURYA | | Behavioral | | | | | (PRESENCE) | | Health | | | | | IN URINE BY | | [facility] | | | | | SCREEN | | Clinic | | | | | METHOD | | | | | | + + + + + + + | METHADONE | 2022-11-08 | [facility] | Negative | (missing) | (missing) | | (PRESENCE) | 11:31 | [facility] | | | | | IN URINE BY | | Behavioral | | | | | SCREEN | | Health | | | | | METHOD | | [facility] | | | | | | | Clinic | | | | + + + + + + + | HEMOGLOBIN | 2022-11-08 | [facility] | Negative | (missing) | (missing) | | PRESENCE IN | 11:31 | [facility] | | | | | URINE | | Behavioral | | | | | | | Health | | | | | | | [facility] | | | | | | | Clinic | | | | + + + + + + + | BHCG QUAL | 2022-11-08 | [facility] | Negative | (missing) | | | (CHORIOGONAD | 11:31 | [facility] | | | | | OTROPIN) IN | | Behavioral | | | | | SER/PLAS | | Health | | | | | | | [facility] | | | | | | | Clinic | | | | + + + + + + + Social History + + + + | date | description | facility | + + + + | 2022-10-22 00:00 | Occasional tobacco smoker | [facility] | | | | [facility] | | | Clinic | + + + + | 2022-10-23 00:00 | Occasional tobacco smoker | [facility] | | | | [facility] | | | | Clinic | + + + + | 2022-10-24 00:00 | Occasional tobacco smoker | [facility] | | | | [facility] | | | | Clinic | + + + + | 2022-10-25 00:00 | Occasional tobacco smoker | [facility] | | | | [facility] | | | | Clinic | + + + + | 2022-11-01 00:00 | Occasional tobacco smoker | [facility] | | | | [facility] | | | | Clinic | + + + + | 2022-11-04 00:00 | Occasional tobacco smoker | [facility] | | | | [facility] | | | | Clinic | + + + + | 2022-11-04 00:00 | Occasional tobacco smoker | [facility] | + + + + | 2022-11-05 00:00 | Occasional tobacco smoker | [facility] | | | | [facility] | | | Clinic | + + + + | 2022-11-06 00:00 | Occasional tobacco smoker | [facility] | | | | [facility] | | | | Clinic | + + + + | 2022-11-06 00:00 | Occasional tobacco smoker | [facility] | + + + + | 2022-11-08 00:00 | Occasional tobacco smoker | [facility] | | | | [facility] | | | | Clinic | + + + + | 2022-11-11 00:00 | Occasional tobacco smoker | [facility] | | | | [facility] | | | | Clinic | + + + + | 2022-11-12 00:00 | Occasional tobacco smoker | [facility] | | | | [facility] | | | | Clinic | + + + + | 2022-11-13 00:00 | Occasional tobacco smoker | [facility] | | | | [facility] | | | | Clinic | + + + + | 2022-11-13 00:00 | Occasional tobacco smoker | [facility] | | | | [facility] | + + + + | 2022-11-14 00:00 | Occasional tobacco smoker | [facility] | | | | [facility] | | | | Clinic | + + + + | 2022-11-18 00:00 | Occasional tobacco smoker | [facility] | + + + + | 2022-11-19 00:00 | Occasional tobacco smoker | [facility] | | | | [facility] | | | | Clinic | + + + + | 2022-11-20 00:00 | Occasional tobacco smoker | [facility] | | | | [facility] [address] | | | | Clinic | + + + + | 2022-11-22 00:00 | Occasional tobacco smoker | [facility] | | | | [facility] | | | | Clinic | + + + + | 2022-11-25 00:00 | [facility] tobacco smoker [facility] | | | [facility] | + + + + | 2022-11-25 00:00 | Occasional tobacco smoker | [facility] | | | | [facility] [address] | | | | Clinic | + + + + | 2022-12-02 00:00 | Occas[facility] tobacco smoker | [facility] | | | Clinic | + + + + | 2022-12-06 00:00 | Occas[facility] tobacco smoker | [facility] | | | | [facility] | + + + + | 2022-12-13 00:00 | Occasional tobacco smoker | [facility] | + + + + | 2022-12-20 00:00 | Occasional tobacco smoker | [facility] | | | | [facility] | | | | Clinic | + + + + | 2022-12-26 00:00 | Occasional tobacco smoker | [facility] | | | | [facility] | | | | Clinic | + + + + | 2023-01-15 00:00 | Occasional tobacco smoker | [facility] | | | | [facility] | | | | Clinic | + + + + | 2023-01-17 00:00 | Occasional tobacco smoker | [facility] | | | | [facility] | | | | Clinic | + + + + Vital Signs No information."
[~2023-01-20 12:37] MED LIST: BACTRIM DS TAB1 EACH PO
--- OUTSIDE RECORDS SUMMARY | 2023-01-20 12:40 | XMS ---
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 [facility]son VISIT COUNT (12 MO.) 8 [facility] [facility] TOTAL 15 NOTE: Visits indicate total known visits. ED/UCC VISIT TRACKING (12 MO.) 01/20/2023 12:38 [facility] [place] TYPE: Emergency COMPLAINT: - MEDICATION ADJUSTMENT 01/15/2023 10:04 [facility] [place] TYPE: Emergency COMPLAINT: - MEDICATION ADJUSTMENT 12/19/2022 14:24 [facility] [place] TYPE: Emergency COMPLAINT: - R BREAST WOUND CARE DIAGNOSES: - Abscess of the breast and nipple 11[facility]08/2022 11[facility] [place] [facility] DIAGNOSES: - Delusional disorders - Other psychoactive substance abuse, uncomplicated - Anxiety - sob, anxiety 09/22/2022 22:[facility] [place] [facility] DIAGNOSES: - Dehydration - Diarrhea, unspecified - Hypokalemia - Nausea with vomiting, unspecified - Schizophrenia, unspecified - Vomiting, unspecified - Mental Health Problem - SOB, Vomiting - SOB, Vomiting, Mental Health - Vomiting 09/15/2022 21:07 [facility] [place] TYPE: Emergency DIAGNOSES: - Acute cough - Dehydration - Delusional disorders - Hypokalemia - Nausea with vomiting, unspecified - Unspecified kidney failure - Viral infection, unspecified - Shortness of Breath 08/23/2022 17:00 [facility] [place] TYPE: Emergency DIAGNOSES: - Unspecified psychosis not due to a substance or known physiological condition - Paranoia - Psychiatric Evaluation - shortness of breath 08/15/2022 12:26 [facility] [place] TYPE: Emergency DIAGNOSES: - Other psychoactive substance abuse, uncomplicated - Other stimulant abuse, uncomplicated - Unspecified psychosis not due to a substance or known physiological condition - Mental Health Problem - Shortness of Breath 07/16/2022 18:57 [facility] - [place] TYPE: Emergency DIAGNOSES: - Coronavirus infection, unspecified - Suicidal ideations - Lethargic; Mental Health - Mental Health Problem - Vomiting 05/17/2022 09:58 [facility] [place] TYPE: Emergency DIAGNOSES: - Generalized abdominal pain - Abdominal Cramping - Detox / Eval - Mental health eval - Mental Health Problem 05/14/2022 08:42 [facility] [place] [facility]: [facility] DIAGNOSES: - Delusional disorders - Other psychoactive substance use, unspecified, uncomplicated - Mental Health Problem - mental health/shortness of breath 04/30/2022 12:02 [facility] [place] TYPE: Emergency DIAGNOSES: - Hallucinations, unspecified - Abdominal Pain - Hallucinations - Halucinations - Halucinations/MCAT drop off 04/25/2022 14:51 [facility] TYPE: Emergency DIAGNOSES: - Diarrhea, unspecified - Nausea with vomiting, unspecified - Unspecified psychosis not due to a substance or known physiological condition - Delusional - weakness - weakness mental health 03/19/2022 07:01 [facility] [place] [facility] DIAGNOSES: - Other stimulant abuse, uncomplicated - Schizophrenia, unspecified - Delusional - Hallucinations - Vomiting - Vomiting; Mental Health 02/09/2022 09:05 [facility] [place] TYPE: Emergency DIAGNOSES: - Delusional disorders - Suicidal ideations - Anxiety - chills and fever INPATIENT VISIT TRACKING (12 MO.) 11/08/2022 16:04 [facility] - [employer] [place] TYPE: Psychiatric Services DIAGNOSES: - Gastro-esophageal reflux disease without esophagitis - Hypothyroidism, unspecified - Major depressive disorder, recurrent, moderate - Paranoid schizophrenia - Suicidal ideations - Schizophrenia 09/23/2022 02:05 [facility] [place] TYPE: Psychiatric Services DIAGNOSES: - Disorganized schizophrenia - Gastro-esophageal reflux disease without esophagitis - Major depressive disorder, single episode, severe with psychotic features - Paranoid schizophrenia - Schizophrenia, unspecified - Paranoid Schizophrenia 08/24/2022 14:09 [facility] [place] TYPE: Psychiatric Services DIAGNOSES: - Major depressive disorder, single episode, severe with psychotic features - Paranoid schizophrenia - Schizophrenia, unspecified - Psychosis ([facility] 07/16/2022 23:43 [facility] [place] TYPE: Psychiatric Services DIAGNOSES: - Drug induced constipation - Major depressive disorder, recurrent, moderate - Paranoid schizophrenia - Tobacco use - Unspecified psychosis not due to a substance or known physiological condition - psychosis 05/17/2022 15:44 [facility] [place] TYPE: Psychiatric Services DIAGNOSES: - Disturbances of salivary secretion - Major depressive disorder, recurrent, moderate - Schizophrenia, unspecified - Unspecified psychosis not due to a substance or known physiological condition - Schizophrenia 03/19/2022 17:18 [facility] [place] TYPE: Psychiatric Services DIAGNOSES: - Generalized anxiety disorder - Schizophrenia, unspecified - Unspecified psychosis not due to a substance or known physiological condition - Delusion 02/09/2022 13:19 [facility] [place] TYPE: Psychiatric Services DIAGNOSES: - Generalized anxiety disorder - Major depressive disorder, recurrent, moderate - Paranoid schizophrenia - Unspecified psychosis not due to a substance or known physiological condition - SCHIZOPHRENIA [email or web address]
[2023-01-20] MEDS ORDERED: HYDROXYZINE PAM25 MG PO (15:19)
[2023-01-20] MEDS ORDERED: TRAZODONE HCL50 MG (15:19)
[2023-01-20] MEDS ORDERED: FLUVOXAMINE MAL25 MG PO (15:19)
[2023-01-20] MEDS ORDERED: CLOZAPINE25 MG PO (15:19)
[2023-01-20] MEDS ORDERED: ARIPIPRAZOLE10 MG PO (15:19)
[2023-01-20] MEDS ORDERED: ABILIFY10 MG PO (16:31)
[2023-01-20] MEDS ORDERED: TRAZODONE HCL50 MG PO (16:34)
[2023-01-20] MEDS ORDERED: CLOZAPINE100 MG PO (16:34)
[2023-01-20] MEDS ORDERED: EFFEXOR XR150 MG PO (16:38)
[2023-01-20] MEDS ORDERED: LEVOTHYROXINE25 MC1 PO (16:38)
[2023-01-20 16:42] VITALS: BP 109/79
== END 2023-01-20 16:42 | disposition home or self-care (01) ==
LOC: ED 12:37
DX: F31.9 Bipolar disorder, unspecified (principal); F20.9 Schizophrenia, unspecified; Z79.899 Other long term (current) drug therapy
CPT/HCPCS: 99281